=== PATIENT | female | born 1940 | race Caucasian/White ===

== ENCOUNTER 2017-01-07 15:47 | Outpatient (CLI) | payer MEDICARE, OTHER ==
[~2017-01-07] VITALS: Ht 152.4 cm; Wt 57.3 kg
[~2017-01-07 15:47] MED LIST: ALPR.25T PO; AMLO5TAB2 PO; ASP81TEC PO; CEPH500C PO; CHOL100011 PO; ENLP5T PO; ESCI10TA55 PO; FLUT1DIS26 IH; GBPN300C PO; HSCO125 SL; HYDR-2890 PO; HYDR12.56 PO; IBP800T PO; IBUP800T26 PO; LORA10TA7 PO; METO25TA2 PO; NF-ESOM40C PO; OMEP20CA12 PO; OMEP20TA2 PO; PANT40TA PO; SERT50TA PO; SPIR25TA3 PO; TRAM50TA2 PO; TRM50T PO
[2017-01-07 15:55] VITALS: BP 137/82
[2017-01-07] MEDS ORDERED: NS IV 1000 ML 1,000 ML ONE (16:23)
[2017-01-07] MEDS ORDERED: ONDANSETRON 4 MG/2 ML (SDV) Z0FRAN IV ONE (16:30)
[2017-01-07] MEDS ORDERED: NS IV 1000 ML 1,000 ML IV ONE (16:30)
[2017-01-07 16:38] LABS: MEAN PLATELET VOLUME 10.2 FL (7.4-10.4); RED BLOOD COUNT 4.35 10^6/uL (4.35-5.85); RED CELL DISTRIBUTION WIDTH 12.9 % (10.0-14.5); WHITE BLOOD COUNT 4.9 10^3/uL (4.3-11.0)
[2017-01-07 16:43] LABS: BILIRUBIN,URINE NEGATIVE (NEGATIVE); KETONES,URINE NEGATIVE (NEGATIVE); LEUKOCYTE ESTERASE ,URINE 1+ (NEGATIVE); NITRITE,URINE NEGATIVE (NEGATIVE); PH,URINE 6 (5-9); PROTEIN,URINE NEGATIVE (NEGATIVE); UROBILINOGEN,URINE NORMAL (NORMAL)
[2017-01-07 16:50] LABS: ALANINE AMINOTRANSFERASE 14 U/L (0-55); ALBUMIN 3.7 G/DL (3.2-4.5); ANION GAP 8 MMOL/L (5-14); ASPARTATE AMINO TRANSFERASE 23 U/L (5-34); BILIRUBIN,TOTAL 0.6 MG/DL (0.1-1.0); BLOOD UREA NITROGEN 12 MG/DL (7-18); BUN/CREATININE RATIO 16; CARBON DIOXIDE 26 MMOL/L (21-32); CHLORIDE 102 MMOL/L (98-107); CREATININE SERUM 0.73 MG/DL (0.60-1.30); GFR ESTIMATED > 60; GLUCOSE 141 MG/DL (70-105); SODIUM 136 MMOL/L (135-145); TOTAL PROTEIN 7.1 G/DL (6.4-8.2)
[2017-01-07 16:58] LABS: SQUAMOUS EPITHELIAL CELL,UR 0-2 /HPF
[2017-01-07 18:45] VITALS: BP 137/82
== END 2017-01-07 18:45 | disposition home or self-care (01) ==
LOC: SDC 15:47
PROVIDERS: ATTEND Nurse Practitioner Family
DX: E86.0 Dehydration (principal); R00.1 Bradycardia, unspecified
CPT/HCPCS: 36415; 80053; 81000; 84484; 85027; 87088; 93005; 96360; 96361; 96374

== ENCOUNTER → 2017-02-26 | Outpatient (CLI) | payer MEDICARE, OTHER ==
[2017-02-26 14:53] LABS: BASOPHILS % (AUTO) 1 % (0-10); EOSINOPHILS # (AUTO) 0.4 10^3/uL (0.0-0.3); EOSINOPHILS % (AUTO) 9 % (0-10); LYMPHOCYTES % (AUTO) 23 % (12-44); MEAN CORPUSCULAR HEMOGLOBIN 31 PG (25-34); MEAN CORPUSCULAR HGB CONC 32 G/DL (32-36); MEAN CORPUSCULAR VOLUME 98 FL (80-99); MONOCYTES # (AUTO) 0.3 X 10^3 (0.0-1.0); MONOCYTES % (AUTO) 6 % (0-12); NEUTROPHILS # (AUTO) 2.7 X 10^3 (1.8-7.8); NEUTROPHILS % (AUTO) 61 % (42-75); PLATELET COUNT 152 10^3/uL (130-400); RED BLOOD COUNT 3.94 10^6/uL (4.35-5.85); RED CELL DISTRIBUTION WIDTH 12.4 % (10.0-14.5); RETICULOCYTE % 1.22 % (0.50-2.40); WHITE BLOOD COUNT 4.4 10^3/uL (4.3-11.0)
[2017-02-26 15:03] LABS: PATH WILL NEED TO REVIEW SMEAR PATH TO REVIEW
[2017-02-26 15:11] LABS: EOSINOPHILS % (MANUAL) 5 %; LYMPHOCYTES % (MANUAL) 15 %; NEUTROPHILS % (MANUAL) 67 %; REACTIVE LYMPHOCYTES 5 %
== END ==
LOC: LAB 14:31
PROVIDERS: ATTEND Family Medicine
DX: D72.819 Decreased white blood cell count, unspecified (principal)
CPT/HCPCS: 36415; 85007; 85027; 85045

== ENCOUNTER 2017-05-24 15:46 | Emergency (ER) | payer MEDICARE, OTHER ==
[~2017-05-24] VITALS: Ht 152.4 cm; Wt 57.3 kg
--- NOTE | 2017-05-24 16:00 | ED Fall/Injury ---
General Stated Complaint: FALL Source: patient, family, EMS Exam Limitations: no limitations History of Present Illness Time seen by provider: 15:55 Initial Comments 76-year-old white female presents after she fell at her restaurant shortly prior to presentation emergency department. Patient fell from standing height. She sustained blunt trauma to the left periorbital region and the left knee. Patient is complaining of pain primarily over the anterior aspect left knee. The patient denies associated paresthesias or weakness in the left lower extremity. The patient's blunt head trauma was without associated loss of consciousness. The patient denies significant neck pain, paresthesias, or weakness in extremities. Patient denies trauma the chest abdomen or pelvis. The patient's on certain when she had her last tetanus update. Allergies and Home Medications Allergies Coded Allergies: azithromycin (Unverified Allergy, Unknown, 03/29/16) Uncoded Allergies: ERYTHROMYCIN (Allergy, Unknown, 01/07/17) Home Medications Alprazolam 0.25 Mg Tablet, 1 MG PO BID, (Reported) Amlodipine Besylate 5 Mg Tablet, 5 MG PO DAILY, (Reported) Aspirin 81 Mg Tabec, 81 MG PO DAILY, #30 Ref 3 Prescribed by: SATNAM LUNA on 10/19/13 0828 Cholecalciferol 1,000 Unit Capsule, 2,000 UNITS PO DAILY, (Reported) Escitalopram Oxalate 10 Mg Tablet, 10 MG PO DAILY, (Reported) Ibuprofen 800 Mg Tablet, 800 MG PO DAILY, #1 Prescribed by: JIGNA ROSAS on 10/17/13 0828 Loratadine 10 Mg Tablet, 10 MG PO, (Reported) Metoprolol Tartrate 25 Mg Tablet, 25 MG PO BID, #60 Ref 3 Prescribed by: SATNAM LUNA on 10/19/13 0827 Omeprazole 20 Mg Capsule.dr, 20 MG PO DAILY, #30 Prescribed by: JIGNA ROSAS on 10/17/13 0757 Spironolactone 25 Mg Tablet, 25 MG PO, (Reported) Tramadol HCl 50 Mg Tablet, 50 MG PO Q6H PRN for PAIN, #30 Ref 0 Prescribed by: MADDY BARDALES on 03/29/16 1131 Constitutional: No chills, No fever Eyes: Denies Blindness, Denies Blurred Vision, Denies Photophobia Ears, Nose, Mouth, Throat: denies ear pain, denies epistaxis, denies mouth pain Respiratory: No cough, No short of breath Cardiovascular: No chest pain Gastrointestinal: No abdominal pain, No nausea, No vomiting Genitourinary: No dysuria, No frequency : No Musculoskeletal: No no symptoms reported Skin: other (patient has abrasions over her knee and face. Ecchymosis is noted over the knee face and hands.) Psychiatric/Neurological: No Symptoms Reported Past Cvxwucn-Uawtnc-Sallfy Hx Patient Social History Type Used: Cigarettes Former Smoker, Quit: Jan 04, 1994 Recent Foreign Travel: No Contact w/Someone Who Travel: No Recent Hopitalizations: No Immunizations Up To Date Tetanus Booster (TDap): More than 5yrs Date of Pneumonia Vaccine: Sep 30, 2016 Date of Influenza Vaccine: Jun 29, 2016 Seasonal Allergies Seasonal Allergies: No Surgeries Surgeries: Bladder Surgery, Hysterectomy, Tonsillectomy Respiratory Respiratory Disorders: Asthma, COPD, Emphysema Currently Using CPAP: No Currently Using BIPAP: No Cardiovascular Cardiac Disorders: Hypertension Reproductive System Hx Reproductive Disorders: No Sexually Transmitted Disease: No HIV/AIDS: No Female 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 Gastrointestinal Gastrointestinal Disorders: Gastroesophageal Reflux, Hemorrhoids, Hiatal Hernia Musculoskeletal Musculoskeletal Disorders: Arthritis, Chronic Back Pain HEENT Loss of Vision: Denies Hearing Impairment: Denies Psychosocial Behavioral Health Disorders: Anxiety Reviewed Nursing Assessment Reviewed/Agree w Nursing PMH: Yes Family Medical History Family Medial History: Abdominal aortic aneurysm 03 FATHER Alcoholism 03 FATHER Cancer 03 FATHER Cataract 03 MOTHER Chest pain 03 FATHER Congestive heart failure 03 FATHER Family history: Cardiovascular disease 03 FATHER 03 MOTHER Family history: Coronary thrombosis 03 MOTHER Family history: Diabetes mellitus 03 MOTHER Family history: Glaucoma 03 MOTHER Family history: Hypertension 03 MOTHER Family history: Osteoporosis 03 MOTHER Headache 03 FATHER 03 MOTHER 09 BROTHER 09 BROTHER 09 SISTER Heart disease 03 FATHER History of - respiratory disease 03 FATHER Kidney disease 03 MOTHER Myocardial infarction 03 FATHER Stroke Visual impairment 03 FATHER 03 MOTHER No Family History of: Jase's disease Aphasia Cancer of colon Congenital heart disease Cystic fibrosis Dementia Dysphagia Family history: Allergy Family history: Alzheimer's disease Family history: Arthritis Family history: Asthma Family history: Breast disease Family history: Gastrointestinal disease Family history: Thyroid disorder Hearing loss Hereditary disease History of - anemia History of - disorder History of drug abuse Human immunodeficiency virus (HIV) seropositivity Hypercholesterolemia Infertile Malignant neoplasm of lung Parkinson's disease Prostate cancer Psychotic disorder Seizure disorder Tuberculosis Physical Exam Vital Signs Vital Sign - Last 12Hours 05/24/17 16:00 Temp 98.1 Pulse 74 Resp 16 B/P (MAP) 132/85 Pulse Ox 97 O2 Delivery Room Air Capillary Refill : General Appearance: WD/WN, mild distress HEENT: other (bruising and ecchymosis were present over the left periorbital region.) Neck: non-tender, full range of motion, supple Cardiovascular: normal peripheral pulses, regular rate, rhythm Respiratory: chest non-tender, lungs clear Gastrointestinal: normal bowel sounds, non tender, soft Back: normal inspection Extremities: normal range of motion, non-tender, other (contusions and abrasions are noted over the fingers of the hands.) Neurologic/Psychiatric: no motor/sensory deficits, alert, normal mood/affect Skin: normal color, warm/dry Elizabeth Coma Score Best Eye Response: (4) Open Spontaneously Best Verbal Response: (5) Oriented Best Motor Response: (6) Obeys Commands Elizabeth Total: 15 Progress/Results/Core Measures Results/Orders My Orders Orders - ES KAMINSKI MD Ct Head/Face/Cervical Wo (05/24/17 15:51) Knee, Left, 3 Views (05/24/17 15:51) Ns Iv 1000 Ml (Sodium Chloride 0.9%) (05/24/17 16:00) Dipht,Pertuss(Acell),Tet Adult (Boostrix (05/24/17 16:00) Fentanyl Injection (Sublimaze Injection (05/24/17 16:00) Ct Extremity Lower Left Wo (05/24/17 16:35) Medications Given in ED Current Medications Medications Dose Ordered Sig/Makenna Route Start Time Stop Time Status Last Admin Dose Admin Diphtheria/ Tetanus/Acell Pertussis 0.5 ml ONCE ONCE IM 05/24/17 16:00 05/24/17 16:01 DC 05/24/17 17:31 0.5 ML Fentanyl Citrate 50 mcg ONCE ONCE IVP 05/24/17 16:00 05/24/17 16:01 DC 05/24/17 16:41 50 MCG Vital Signs/I&O Vital Sign - Last 12Hours 05/24/17 16:00 Temp 98.1 Pulse 74 Resp 16 B/P (MAP) 132/85 Pulse Ox 97 O2 Delivery Room Air Progress Note : Time: 17:[address] of the head and face neck and left knee failed to demonstrate evidence of acute pathology. Patient was able to weight-bear without difficulty and other than complaining of pain over the impact areas had no other specific complaint. The patient was given tetanus update. Departure Impression Impression: Primary Impression: Fall Qualified Codes: W19.XXXA - Unspecified fall, initial encounter Additional Impressions: Closed head injury Qualified Codes: S09.90XA - Unspecified injury of head, initial encounter Contusion of left knee Qualified Codes: S80.02XA - Contusion of left knee, initial encounter Disposition: 01 HOME, SELF-CARE Condition: Improved Departure-Patient Inst. Decision time for Depature: 17:43 Referrals: YAZAN KERR MD (PCP/Family) Primary Care Physician Patient Instructions: Minor Head Injury (DC) Add. Discharge Instructions: Vicodin for pain. Ice to contusions. Follow-up with Dr. Kerr Friday. Return of any problems. ES KAMINSKI MD May 24, 2017 16:00
[2017-05-24] MEDS ORDERED: fentaNYL INJECTION 100 MCG/2 ML AMP IVP ONE (16:15)
--- NOTE | 2017-05-24 16:40 | Diagnostic Imaging Report ---
PROCEDURE: CT head, face, and cervical spine without contrast. TECHNIQUE: Multiple contiguous axial images were obtained through the head, neck, and facial bones without the use of intravenous contrast. Sagittal and coronal reformations through the cervical spine and facial bones were also performed. INDICATION: Fall. Head injury. COMPARISON: CT head without contrast 03/29/2016. FINDINGS: Head and maxillofacial: No intracranial hemorrhage, mass effect, hydrocephalus or extra-axial fluid collections. Intracranial vascular calcifications. Moderate generalized cerebral and cerebellar parenchymal volume loss. Moderate leukoaraiosis. No CT evidence of acute infarction. Moderate degenerative changes in the temporomandibular joints. Mild mucosal thickening in ethmoid and maxillary sinuses. No air-fluid levels. No maxillofacial or skull fractures. The mastoids are clear. Cervical spine: Moderate degenerative endplate changes most marked at C4-C7. Grade 1 retrolisthesis of C3 on C4 and anterolisthesis of C4 and C5. Diffuse moderate degenerative facet arthropathy. Vertebral body heights are maintained. No fractures. Posterior disc osteophyte complex likely result in at least mild spinal canal narrowing at C5-C6 and C6-C7. Scattered moderate and advanced neural foraminal narrowing is most marked at C3-C4. Mild scattered atherosclerotic calcifications. Retropharyngeal course of the carotid arteries. Biapical scarring. IMPRESSION: 1. No acute intracranial CT findings. No skull or maxillofacial fractures. 2. No acute CT findings in the cervical spine. 3. Advanced spondylotic changes result in at least mild spinal canal narrowing at C5-C6 and C6-C7. This could be better evaluated with MRI or CT myelogram. 4. Scattered moderate and advanced neural foraminal narrowing in the cervical spine is most marked bilaterally at C3-C4. Dictated by: Dictated on workstation # [id number]
[2017-05-24] MEDS: fentaNYL INJECTION 100 MCG/2 ML AMP IVP ONE (16:41)
[2017-05-24] MEDS: NS IV 1000 ML 1,000 ML IV SCH (16:41)
--- NOTE | 2017-05-24 16:46 | Diagnostic Imaging Report ---
EXAM: KNEE, LEFT, 3 VIEWS INDICATION: Fall. Left knee pain. COMPARISON: None FINDINGS: No fracture or malalignment. No left knee joint effusion. No radiopaque foreign bodies. IMPRESSION: No acute radiographic findings in the left knee. Dictated by: Dictated on workstation # [id number]
--- NOTE | 2017-05-24 17:04 | Diagnostic Imaging Report ---
PROCEDURE: CT left lower extremity without contrast. TECHNIQUE: Multiple contiguous axial images were obtained through the left lower extremity without the use of intravenous contrast. Sagittal and coronal reformations were then performed. INDICATION: Fall with left knee injury and pain. FINDINGS: No fracture or malalignment is identified. There is no abnormal lytic or sclerotic focus. There is no evidence of bone destruction. There is anterior and lateral contusion without focal fluid collection identified. Prominent varicose veins are noted in the subcutaneous tissues. There is no significant joint fluid. There is mild marginal spurring most pronounced at the patellofemoral joint. IMPRESSION: No acute osseous abnormality is identified. Dictated by: Dictated on workstation # [id number]
[2017-05-24] MEDS: TETANUS,DIPTH,PERTUSS P/F (BOOSTRIX) 0.5 ML VIAL IM ONE (17:31)
[2017-05-24 17:47] VITALS: BP 130/79
== END 2017-05-24 17:47 | disposition home or self-care (01) ==
LOC: EDUNIT# 15:46 → ER 15:48
DX: S09.90XA Unspecified injury of head, initial encounter (principal); S80.02XA Contusion of left knee, initial encounter; J43.9 Emphysema, unspecified; I10 Essential (primary) hypertension; M19.90 Unspecified osteoarthritis, unspecified site; F41.9 Anxiety disorder, unspecified; K21.9 Gastro-esophageal reflux disease without esophagitis; Z87.891 Personal history of nicotine dependence; Z82.49 Family history of ischemic heart disease and other diseases of the circulatory system; Z87.19 Personal history of other diseases of the digestive system; Z90.710 Acquired absence of both cervix and uterus; Z90.89 Acquired absence of other organs; W18.30XA Fall on same level, unspecified, initial encounter; Y92.511 Restaurant or cafe as the place of occurrence of the external cause
CPT/HCPCS: 70450; 70486; 72125; 73562; 73700; 90715

== ENCOUNTER 2017-06-04 17:32 | Emergency (ER) | payer MEDICARE, OTHER ==
[~2017-06-04] VITALS: Ht 152.4 cm; Wt 63.7 kg
--- NOTE | 2017-06-04 18:48 | ED Lower Extremity ---
General Chief Complaint: General Problems/Pain Stated Complaint: PAIN IN LEFT KNEE AFTER FALL ON 05/24 Nursing Triage Note: patient reports fall 1 week ago and being evaluated at this ER. patient reports her L leg is still bruised and rather painful Nursing Sepsis Screen: No Definite Risk Source: patient Exam Limitations: no limitations History of Present Illness Time seen by provider: 18:20 Initial Comments Here with increasing pain to the left knee. Had fall on 05/24/17. Had extensive workup at that time including knee xray. All were neg. Has bruising from medial upper thigh to ankle on left leg and swelling noted to the leg overall. Pain mostly at knee but does have pain overall. Ibuprofen helps with pain. Onset: last week Severity: moderate Pain/Injury Location: left leg, left knee, left thigh Method of Injury: fell Modifying Factors: Improves With Immobilization, Worse With Movement, Improves With Rest Allergies and Home Medications Allergies Coded Allergies: azithromycin (Unverified Allergy, Unknown, 03/29/16) Uncoded Allergies: ERYTHROMYCIN (Allergy, Unknown, 01/07/17) Home Medications Alprazolam 0.25 Mg Tablet, 1 MG PO BID, (Reported) Amlodipine Besylate 5 Mg Tablet, 5 MG PO DAILY, (Reported) Aspirin 81 Mg Tabec, 81 MG PO DAILY, #30 Ref 3 Prescribed by: SATNAM LUNA on 10/19/13 0828 Cholecalciferol 1,000 Unit Capsule, 2,000 UNITS PO DAILY, (Reported) Escitalopram Oxalate 10 Mg Tablet, 10 MG PO DAILY, (Reported) Ibuprofen 800 Mg Tablet, 800 MG PO DAILY, #1 Prescribed by: JIGNA ROSAS on 10/17/13 0828 Loratadine 10 Mg Tablet, 10 MG PO, (Reported) Metoprolol Tartrate 25 Mg Tablet, 25 MG PO BID, #60 Ref 3 Prescribed by: SATNAM LUNA on 10/19/13 0827 Omeprazole 20 Mg Capsule.dr, 20 MG PO DAILY, #30 Prescribed by: JIGNA ROSAS on 10/17/13 0757 Spironolactone 25 Mg Tablet, 25 MG PO, (Reported) Tramadol HCl 50 Mg Tablet, 50 MG PO Q6H PRN for PAIN, #30 Ref 0 Prescribed by: MADDY BARDALES on 03/29/16 1131 Constitutional: see HPI, No chills, No fever Respiratory: no symptoms reported Cardiovascular: no symptoms reported Gastrointestinal: no symptoms reported Musculoskeletal: see HPI, joint pain, joint swelling, muscle pain, muscle stiffness Skin: change in color, No lesions Psychiatric/Neurological: No Symptoms Reported Past Fiuqelp-Olhaeh-Wwsjuk Hx Patient Social History Alcohol Use: Denies Use Recreational Drug Use: No Smoking Status: Former Smoker Type Used: Cigarettes Former Smoker, Quit: Jan 04, 1994 2nd Hand Smoke Exposure: No Recent Foreign Travel: No Contact w/Someone Who Travel: No Recent Infectious Disease Expo: No Recent Hopitalizations: No Physical Abuse: No Sexual Abuse: No Immunizations Up To Date Tetanus Booster (TDap): More than 5yrs Date of Pneumonia Vaccine: Sep 30, 2016 Date of Influenza Vaccine: Jun 29, 2016 Seasonal Allergies Seasonal Allergies: No Surgeries History of Surgeries: Yes (HEMORRHOIDECTOMY,hiatal hernia repairx2, ) Surgeries: Bladder Surgery, Hysterectomy, Tonsillectomy Respiratory History of Respiratory Disorde: Yes (COPD) Respiratory Disorders: Asthma, COPD, Emphysema Currently Using CPAP: No Currently Using BIPAP: No Cardiovascular History of Cardiac Disorders: Yes Cardiac Disorders: Hypertension Neurological History of Neurological Disord: No Reproductive System Hx Reproductive Disorders: No Sexually Transmitted Disease: No HIV/AIDS: No Female 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 Gastrointestinal History of Gastrointestinal Di: Yes Gastrointestinal Disorders: Gastroesophageal Reflux, Hemorrhoids, Hiatal Hernia Musculoskeletal History of Musculoskeletal Dis: Yes (ARTHRITIS) Musculoskeletal Disorders: Arthritis, Chronic Back Pain Endocrine History of Endocrine Disorders: No HEENT Loss of Vision: Denies Hearing Impairment: Denies Cancer History of Cancer: No Psychosocial History of Psychiatric Problem: Yes Behavioral Health Disorders: Anxiety Suicide Risk Score: 0 Integumentary History of Skin or Integumenta: No Blood Transfusions History of Blood Disorders: No Reviewed Nursing Assessment Reviewed/Agree w Nursing PMH: Yes Family Medical History Significant Family History: No Pertinent Family Hx Family Medial History: Abdominal aortic aneurysm 03 FATHER Alcoholism 03 FATHER Cancer 03 FATHER Cataract 03 MOTHER Chest pain 03 FATHER Congestive heart failure 03 FATHER Family history: Cardiovascular disease 03 FATHER 03 MOTHER Family history: Coronary thrombosis 03 MOTHER Family history: Diabetes mellitus 03 MOTHER Family history: Glaucoma 03 MOTHER Family history: Hypertension 03 MOTHER Family history: Osteoporosis 03 MOTHER Headache 03 FATHER 03 MOTHER 09 BROTHER 09 BROTHER 09 SISTER Heart disease 03 FATHER History of - respiratory disease 03 FATHER Kidney disease 03 MOTHER Myocardial infarction 03 FATHER Stroke Visual impairment 03 FATHER 03 MOTHER No Family History of: Jase's disease Aphasia Cancer of colon Congenital heart disease Cystic fibrosis Dementia Dysphagia Family history: Allergy Family history: Alzheimer's disease Family history: Arthritis Family history: Asthma Family history: Breast disease Family history: Gastrointestinal disease Family history: Thyroid disorder Hearing loss Hereditary disease History of - anemia History of - disorder History of drug abuse Human immunodeficiency virus (HIV) seropositivity Hypercholesterolemia Infertile Malignant neoplasm of lung Parkinson's disease Prostate cancer Psychotic disorder Seizure disorder Tuberculosis Physical Exam Vital Signs Vital Sign - Last 12Hours 06/04/17 17:57 Temp 97.1 Pulse 71 Resp 18 B/P (MAP) 129/80 Pulse Ox 96 Capillary Refill : Less Than 3 Seconds General Appearance: WD/WN, no apparent distress Cardiovascular: regular rate, rhythm, no murmur Respiratory: lungs clear, normal breath sounds Hips: bilateral hip non-tender, bilateral hip normal inspection, bilateral hip normal range of motion Legs: right leg non-tender, right leg normal inspection, right leg normal range of motion, left leg ecchymosis, left leg joint effusion, left leg soft tissue tenderness, left leg swelling Knees: left knee ecchymosis, left knee joint effusion, left knee soft tissue tenderness, left knee swelling, left knee other (left knee with laxity medial lateral with moderate peripatellar effusion. Negative drawer.) Ankles: right ankle non-tender, right ankle normal inspection, right ankle normal range of motion, right ankle no evidence of injury, left ankle soft tissue tenderness, left ankle swelling Neurologic/Psychiatric: alert, oriented x 3 Skin: warm/dry, ecchymosis (ecchymosis extends from the medial aspect of the left upper leg down to near the area of the ankle.), other (left leg swollen overall. Greatest tenderness about the left knee. No significant abrasions or wounds otherwise.) Progress/Results/Core Measures Results/Orders My Orders Orders - MADDY BARDALES MD Knee, Left, 3 Views (06/04/17 18:27) Us Venous Lower Ext Lt (06/04/17 18:48) Vital Signs/I&O Vital Sign - Last 12Hours 06/04/17 17:57 Temp 97.1 Pulse 71 Resp 18 B/P (MAP) 129/80 Pulse Ox 96 Blood Pressure Mean: 96 Progress Note : Progress Note Seen and evaluated. X-ray left knee. Ultrasound left leg. 2020: No acute findings. Patient does not have findings of fracture or DVT. She is able to walk. Family reports that she has multiple falls. There is laxity of the knee although stable in walking. She does have a fairly significant joint effusion. I did discuss with her at length about rest and elevation of the leg. She is taking ibuprofen twice daily and this is helping and she will continue that. I did discuss with her to follow-up with her DrAbraham for further evaluation related to possible further needs of evaluation of the left knee including MRI or orthopedic referral. Patient verbalize understanding. Discharged home with return precautions. Patient verbalize understanding instructions and agreement with plan. Diagnostic Imaging Diagonstic Imaging: Xray Plain Films/CT/US/NM/MRI: knee Comments NAME: JUSTINE RAMIREZ [facility] REC#: [id number] PT STATUS: REG ER : 1940 PHYSICIAN: MADDY BARDALES MD ADMIT DATE: 06/04/17/ER Signed Date of Exam: 06/04/17 KNEE, LEFT, 3 VIEWS INDICATION: Knee pain after a fall one week ago. COMPARISON: None available. TECHNIQUE: 3 nonweightbearing views of the left knee. FINDINGS: No acute or healing fracture. Joint spaces are maintained. Possible small left pleural effusion. Prepatellar soft tissue swelling. Subcutaneous reticulations about the knee may relate to contusion or edema. IMPRESSION: 1. No acute or healing fracture about the left knee. Dictated by: Dictated on workstation # [id number] Dict: 06/04/171849 Trans: 06/04/171926 Interpreted by: PETRA PEREZ MD Electronically signed by: PETRA PEREZ MD 06/04/171926 Diagonstic Imaging: Ultrasound Plain Films/CT/US/NM/MRI: leg Comments VIA [facility], [facility]. [place], [place] NAME: JUSTINE RAMIREZ [facility] REC#: [id number] PT STATUS: REG ER : 1940 PHYSICIAN: MADDY BARDALES MD ADMIT DATE: 06/04/17/ER Draft Date of Exam:06/04/17 US VENOUS LOWER EXT LT PROCEDURE: US left lower extremity venous. TECHNIQUE: Multiple real-time grayscale images were obtained over the left lower extremity in various projections. Additional duplex Doppler and color Doppler images were also obtained. INDICATION: Fall two weeks prior. Leg pain. FINDINGS: There is normal compression, flow, and augmentation from the left common femoral vein through the popliteal vein. The visualized calf veins are patent. IMPRESSION: 1. No sonographic evidence of left lower extremity deep venous thrombosis. Dictated on workstation # [id number] Dict: 06/04/171958 Trans: 06/04/172002 [id number] [id number] Interpreted by: FAVIOLA IGLESIAS MD Electronically signed by: Departure Impression Impression: Primary Impression: Effusion, left knee Additional Impression: Contusion of leg, left Qualified Codes: S80.12XD - Contusion of left lower leg, subsequent encounter Disposition: HOME, SELF-CARE Condition: Improved Departure-Patient Inst. Decision time for Depature: 20:27 Referrals: YAZAN KERR MD (PCP/Family) Primary Care Physician Patient Instructions: Contusion (DC), Internal Derangement of the Knee (DC), Lower Extremity Muscle Strain (DC) Add. Discharge Instructions: All discharge instructions reviewed with patient and/or family. Voiced understanding. It is important that he rest the leg and elevate as often as possible over the next several days and then as needed. Follow-up with your DrAbraham in a few days for recheck. Return for worse pain, fever, swelling, weakness, breathing problems or other concerns as needed. Copy Copies To 1: YAZAN KERR MD, TIMOTHY D MD Jun 04, 2017 18:48
--- NOTE | 2017-06-04 19:02 | Diagnostic Imaging Report ---
INDICATION: Knee pain after a fall one week ago. COMPARISON: None available. TECHNIQUE: 3 nonweightbearing views of the left knee. FINDINGS: No acute or healing fracture. Joint spaces are maintained. Possible small left pleural effusion. Prepatellar soft tissue swelling. Subcutaneous reticulations about the knee may relate to contusion or edema. IMPRESSION: 1. No acute or healing fracture about the left knee. Dictated by: Dictated on workstation # [id number]
--- NOTE | 2017-06-04 20:03 | Diagnostic Imaging Report ---
PROCEDURE: US left lower extremity venous. TECHNIQUE: Multiple real-time grayscale images were obtained over the left lower extremity in various projections. Additional duplex Doppler and color Doppler images were also obtained. INDICATION: Fall two weeks prior. Leg pain. FINDINGS: There is normal compression, flow, and augmentation from the left common femoral vein through the popliteal vein. The visualized calf veins are patent. IMPRESSION: 1. No sonographic evidence of left lower extremity deep venous thrombosis. Dictated by: Dictated on workstation # [id number]
[2017-06-04 20:34] VITALS: BP 136/90
== END 2017-06-04 20:31 | disposition home or self-care (01) ==
LOC: EDUNIT# 17:32 → ER 17:34
DX: S80.12XA Contusion of left lower leg, initial encounter (principal); J43.9 Emphysema, unspecified; I10 Essential (primary) hypertension; K21.9 Gastro-esophageal reflux disease without esophagitis; F41.9 Anxiety disorder, unspecified; Z82.49 Family history of ischemic heart disease and other diseases of the circulatory system; Z79.82 Long term (current) use of aspirin; Z87.891 Personal history of nicotine dependence; Z87.19 Personal history of other diseases of the digestive system; Z90.710 Acquired absence of both cervix and uterus; Z90.89 Acquired absence of other organs; W19.XXXA Unspecified fall, initial encounter
CPT/HCPCS: 73562; 99281

== ENCOUNTER 2017-07-15 06:51 | Inpatient (IN) | payer MEDICARE, OTHER ==
[2017-07-15] VITALS (7 sets, daily range): BP systolic 120–163; BP diastolic 77–100
[~2017-07-15] VITALS: Ht 152.4 cm; Wt 63.1 kg
[2017-07-15] MEDS ORDERED: ASPIRIN 81 MG CHEW (CHILDREN'S ASA) PO ONE (07:00)
[2017-07-15 07:08] LABS: BASOPHILS % (AUTO) 0 % (0-10); EOSINOPHILS # (AUTO) 0.1 10^3/uL (0.0-0.3); EOSINOPHILS % (AUTO) 2 % (0-10); LYMPHOCYTES # (AUTO) 0.7 X 10^3 (1.0-4.0); LYMPHOCYTES % (AUTO) 16 % (12-44); MEAN CORPUSCULAR HEMOGLOBIN 31 PG (25-34); MEAN CORPUSCULAR HGB CONC 33 G/DL (32-36); MEAN CORPUSCULAR VOLUME 93 FL (80-99); MEAN PLATELET VOLUME 9.9 FL (7.4-10.4); MONOCYTES # (AUTO) 0.3 X 10^3 (0.0-1.0); MONOCYTES % (AUTO) 6 % (0-12); NEUTROPHILS # (AUTO) 3.6 X 10^3 (1.8-7.8); NEUTROPHILS % (AUTO) 77 % (42-75); PLATELET COUNT 172 10^3/uL (130-400); RED BLOOD COUNT 4.69 10^6/uL (4.35-5.85); RED CELL DISTRIBUTION WIDTH 13.4 % (10.0-14.5); WHITE BLOOD COUNT 4.6 10^3/uL (4.3-11.0)
[2017-07-15] MEDS ORDERED: morphine INJ 10 MG/ML 1ML (SYR OR VIAL) IVP STA (07:08)
[2017-07-15] MEDS ORDERED: NITROGLYCERIN 0.4 MG SL TABS BTL 25'S SL PRN (07:15)
--- NOTE | 2017-07-15 07:15 | ED Chest Pain ---
General Stated Complaint: CP,SOB Source: patient Exam Limitations: no limitations History of Present Illness Time seen by provider: 06:51 Initial Comments Here with report of central chest pain that she is unable to further qualify except to say that it is a bad pain. It is at the low center of her chest and does not radiate. It is associated with nausea and diarrhea but no vomiting. Has been persistent since 1030 p.m. last night. Denies breathing problems. Has chronic left leg pain that has been worked up over the last month and has been negative for DVT. Denies having pain like this before. Reports taking her meds as directed. Timing/Duration: constant, 12 hours Severity/Quality: moderate, severe, aching, other (pain) Location: central Radiation: no radiation Activities at Onset: none Prior CP/Workup: cardiac cath, stress test ASA po DRENCHER: No NTG SL DRENCHER: No Associated Symptoms: abdominal pain (epigastric), No back pain, No fever/chills , nausea/vomiting, No shortness of breath, No weakness Allergies and Home Medications Allergies Coded Allergies: azithromycin (Unverified Allergy, Unknown, 03/29/16) Uncoded Allergies: ERYTHROMYCIN (Allergy, Unknown, 01/07/17) Home Medications Alprazolam 0.25 Mg Tablet, 1 MG PO BID, (Reported) Amlodipine Besylate 5 Mg Tablet, 5 MG PO DAILY, (Reported) Aspirin 81 Mg Tabec, 81 MG PO DAILY, #30 Ref 3 Prescribed by: SATNAM LUNA on 10/19/13 0828 Cholecalciferol 1,000 Unit Capsule, 2,000 UNITS PO DAILY, (Reported) Escitalopram Oxalate 10 Mg Tablet, 10 MG PO DAILY, (Reported) Ibuprofen 800 Mg Tablet, 800 MG PO DAILY, #1 Prescribed by: JIGNA ROSAS on 10/17/13 0828 Loratadine 10 Mg Tablet, 10 MG PO, (Reported) Metoprolol Tartrate 25 Mg Tablet, 25 MG PO BID, #60 Ref 3 Prescribed by: SATNAM LUNA on 10/19/13 0827 Omeprazole 20 Mg Capsule.dr, 20 MG PO DAILY, #30 Prescribed by: JIGNA ROSAS on 10/17/13 0757 Spironolactone 25 Mg Tablet, 25 MG PO, (Reported) Tramadol HCl 50 Mg Tablet, 50 MG PO Q6H PRN for PAIN, #30 Ref 0 Prescribed by: MADDY BARDALES on 03/29/16 1131 Review of Systems Constitutional: see HPI, No chills, No fever EENTM: No Symptoms Reported Respiratory: No Symptoms Reported, Denies Shortness of Air, Denies Wheezing Cardiovascular: Chest Pain, Denies Edema, Denies Irregular Heart Rate Gastrointestinal: Abdominal Pain, Diarrhea, Vomiting Genitourinary: No Symptoms Reported Musculoskeletal: joint pain, joint swelling Skin: no symptoms reported Psychiatric/Neurological: Denies Headache, Denies Weakness Endocrine: No Symptoms Reported All Other Systems Reviewed Negative Unless Noted: Yes Past Wxqphmn-Ubxvrj-Hphmsj Hx Patient Social History Alcohol Use: Denies Use Recreational Drug Use: No Smoking Status: Former Smoker Type Used: Cigarettes Former Smoker, Quit: Jan 04, 1994 2nd Hand Smoke Exposure: No Recent Foreign Travel: No Contact w/Someone Who Travel: No Recent Hopitalizations: No Immunizations Up To Date Tetanus Booster (TDap): More than 5yrs Date of Pneumonia Vaccine: Sep 30, 2016 Date of Influenza Vaccine: Jun 29, 2016 Seasonal Allergies Seasonal Allergies: No Surgeries History of Surgeries: Yes (HEMORRHOIDECTOMY,hiatal hernia repairx2, ) Surgeries: Bladder Surgery, Hysterectomy, Tonsillectomy Respiratory History of Respiratory Disorde: Yes (COPD) Respiratory Disorders: Asthma, COPD, Emphysema Currently Using CPAP: No Currently Using BIPAP: No Cardiovascular History of Cardiac Disorders: Yes Cardiac Disorders: Hypertension Neurological History of Neurological Disord: No Reproductive System Hx Reproductive Disorders: No Sexually Transmitted Disease: No HIV/AIDS: No Female 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 Gastrointestinal History of Gastrointestinal Di: Yes Gastrointestinal Disorders: Gastroesophageal Reflux, Hemorrhoids, Hiatal Hernia Musculoskeletal History of Musculoskeletal Dis: Yes (ARTHRITIS) Musculoskeletal Disorders: Arthritis, Chronic Back Pain Endocrine History of Endocrine Disorders: No HEENT Loss of Vision: Denies Hearing Impairment: Denies Cancer History of Cancer: No Psychosocial History of Psychiatric Problem: Yes Behavioral Health Disorders: Anxiety Integumentary History of Skin or Integumenta: No Blood Transfusions History of Blood Disorders: No Reviewed Nursing Assessment Reviewed/Agree w Nursing PMH: Yes Family Medical History Significant Family History: No Pertinent Family Hx Family Medial History: Abdominal aortic aneurysm 03 FATHER Alcoholism 03 FATHER Cancer 03 FATHER Cataract 03 MOTHER Chest pain 03 FATHER Congestive heart failure 03 FATHER Family history: Cardiovascular disease 03 FATHER 03 MOTHER Family history: Coronary thrombosis 03 MOTHER Family history: Diabetes mellitus 03 MOTHER Family history: Glaucoma 03 MOTHER Family history: Hypertension 03 MOTHER Family history: Osteoporosis 03 MOTHER Headache 03 FATHER 03 MOTHER 09 BROTHER 09 BROTHER 09 SISTER Heart disease 03 FATHER History of - respiratory disease 03 FATHER Kidney disease 03 MOTHER Myocardial infarction 03 FATHER Stroke Visual impairment 03 FATHER 03 MOTHER Physical Exam Vital Signs Vital Sign - Last 12Hours 07/15/17 07/15/17 07/15/17 06:56 07:22 07:30 Temp 96.8 Pulse 75 Resp 18 B/P (MAP) 184/103 Pulse Ox 97 O2 Delivery Room Air O2 Flow Rate 2.00 Capillary Refill : General Appearance: WD/WN, Anxious, Moderate Distress (pain) HEENT: PERRL/EOMI, Pharynx Normal Neck: Non Tender, Supple Respiratory: Lungs Clear, Normal Breath Sounds Cardiovascular: Regular Rate, Rhythm, No Murmur Gastrointestinal: Soft, No Distended, No Guarding, Tenderness (epigastric region) Extremity: Normal Capillary Refill, No Pedal Edema, Other (tenderness to the left knee) Neurologic/Psychiatric: Alert, Oriented x3, No Motor/Sensory Deficits Skin: Normal Color, Warm/Dry Progress/Results/Core Measures Results/Orders Lab Results Laboratory Tests Test 07/15/17 06:59 07/15/17 07:03 Range/Units D-Dimer 1.76 H 0.00-0.49 UG/ML White Blood Count 4.6 4.3-11.0 10^3/uL Red Blood Count 4.69 4.35-5.85 10^6/uL Hemoglobin 14.3 11.5-16.0 G/DL Hematocrit 44 35-52 % Mean Corpuscular Volume 93 80-99 FL Mean Corpuscular Hemoglobin 31 25-34 PG Mean Corpuscular Hemoglobin Concent 33 32-36 G/DL Red Cell Distribution Width 13.4 10.0-14.5 % Platelet Count 172 130-400 10^3/uL Mean Platelet Volume 9.9 7.4-10.4 FL Neutrophils (%) (Auto) 77 H 42-75 % Lymphocytes (%) (Auto) 16 12-44 % Monocytes (%) (Auto) 6 0-12 % Eosinophils (%) (Auto) 2 0-10 % Basophils (%) (Auto) 0 0-10 % Neutrophils # (Auto) 3.6 1.8-7.8 X 10^3 Lymphocytes # (Auto) 0.7 L 1.0-4.0 X 10^3 Monocytes # (Auto) 0.3 0.0-1.0 X 10^3 Eosinophils # (Auto) 0.1 0.0-0.3 10^3/uL Basophils # (Auto) 0.0 0.0-0.1 10^3/uL Prothrombin Time 12.3 12.2-14.7 SEC INR Comment 0.9 0.8-1.4 Activated Partial Thromboplast Time 29 24-35 SEC Sodium Level 137 135-145 MMOL/L Potassium Level 4.2 3.6-5.0 MMOL/L Chloride Level 105 98-107 MMOL/L Carbon Dioxide Level 23 21-32 MMOL/L Anion Gap 9 5-14 MMOL/L Blood Urea Nitrogen 16 7-18 MG/DL Creatinine 0.76 0.60-1.30 MG/DL Estimat Glomerular Filtration Rate > 60 BUN/Creatinine Ratio 21 Glucose Level 119 H 70-105 MG/DL Calcium Level 9.5 8.5-10.1 MG/DL Magnesium Level 2.1 1.8-2.4 MG/DL Total Bilirubin 2.4 H 0.1-1.0 MG/DL Aspartate Amino Transf (AST/SGOT) 1175 H 5-34 U/L Alanine Aminotransferase (ALT/SGPT) 644 H 0-55 U/L Alkaline Phosphatase 127 40-136 U/L Myoglobin 44.0 10.0-92.0 NG/ML Troponin I < 0.30 <0.30 NG/ML Total Protein 8.9 H 6.4-8.2 GM/DL Albumin 4.2 3.2-4.5 GM/DL Amylase Level 43 25-125 U/L Lipase 21 8-78 U/L My Orders Orders - MADDY BARDALES MD Cbc With Automated Diff (07/15/17 06:57) Magnesium (07/15/17 06:57) Chest 1 View, Ap/Pa Only (07/15/17 06:57) Ekg Tracing (07/15/17 06:57) Cardiac Profile 1 (07/15/17 06:57) Comprehensive Metabolic Panel (07/15/17 06:57) Myoglobin Serum (07/15/17 06:57) Protime With Inr (07/15/17 06:57) Partial Thromboplastin Time (07/15/17 06:57) O2 (07/15/17 06:57) Monitor-Rhythm Ecg Trace Only (07/15/17 06:57) Lipid Panel (07/16/17 06:00) Saline Lock/Iv-Start (07/15/17 06:57) Aspirin Chewable Tablet (Baby Aspirin Ch (07/15/17 07:00) Lipase (07/15/17 06:59) Amylase (07/15/17 06:59) Fibrin Degradation Products (07/15/17 06:59) Nitroglycerin 0.4 Mg Btl 25's (Nitrostat (07/15/17 07:15) Morphine Injection (Morphine Injection (07/15/17 07:08) Us Gallbladder 35830 (07/15/17 07:33) Ns Iv 500 Ml (Sodium Chloride 0.9%) (07/15/17 07:41) Ns Iv 500 Ml (Sodium Chloride 0.9%) (07/15/17 08:33) Ct Angio Chest/Abd W (07/15/17 08:33) Iohexol Injection (Omnipaque 350 Mg/Ml 1 (07/15/17 08:45) Ns (Ivpb) (Sodium Chloride 0.9% Ivpb Bag (07/15/17 08:45) Medications Given in ED Current Medications Medications Dose Ordered Sig/Makenna Route Start Time Stop Time Status Last Admin Dose Admin Aspirin 324 mg ONCE ONCE PO 07/15/17 07:00 07/15/17 07:01 DC 07/15/17 07:12 324 MG Iohexol 125 ml ONCE ONCE IV 07/15/17 08:45 07/15/17 08:46 DC 07/15/17 08:50 125 ML Nitroglycerin 0.4 mg UD PRN SL 07/15/17 07:15 07/15/17 07:12 0.4 MG Sodium Chloride 100 ml ONCE ONCE IV 07/15/17 08:45 07/15/17 08:46 DC 07/15/17 08:50 80 ML Sodium Chloride 500 ml @ 0 mls/hr Q0M ONCE IV 07/15/17 07:41 07/15/17 07:42 DC 07/15/17 07:45 500 MLS/HR Sodium Chloride 500 ml @ 0 mls/hr Q0M ONCE IV 07/15/17 08:33 07/15/17 08:35 DC 07/15/17 09:09 500 MLS/HR Vital Signs/I&O Vital Sign - Last 12Hours 07/15/17 07/15/17 07/15/17 07/15/17 06:56 07:22 07:30 08:36 Temp 96.8 Pulse 75 72 66 Resp 18 48 18 B/P (MAP) 184/103 163/82 141/87 Pulse Ox 97 98 O2 Delivery Room Air Nasal Cannula Nasal Cannula O2 Flow Rate 2.00 07/15/17 09:17 Pulse 69 Resp 18 B/P (MAP) 140/100 Pulse Ox 100 O2 Delivery Nasal Cannula O2 Flow Rate 2.00 Progress Note : Progress Note Seen and evaluated on arrival. IV, labs, EKG and chest x-ray ordered. ASA 324 mg by mouth. Nitroglycerin sublingual ordered for chest pain. Morphine 2 mg IV ordered for chest pain. Monitor patient. Gallbladder ultrasound ordered due to elevated liver enzymes and total bilirubin. CT angiogram of the chest and abdomen ordered due to elevated d-dimer. Pain markedly improved after morphine and 1 nitroglycerin sublingual. 0940: Discussed case with Dr. Deal due to findings of pericholecystic fluid on CT scan as well as evidence of gallstones on gallbladder ultrasound. There is also concern for common bile duct dilation on CT scan indicating early cholecystitis with possible stone blockage. Dr. Deal will admit with probably cholecystectomy. Requesting antibiotics. All findings and concerns were discussed with the patient and family who agree. Admit, inpatient status. Patient and family agree with plan. ECG Initial ECG Impression Date: Jul 15, 2017 Initial ECG Impression Time: 06:56 Initial ECG Rate: 71 Initial ECG Rhythm: Normal Sinus Comment Sinus rhythm with normal axis. No evidence of ST elevation IN. Unchanged from previous of 07 January 2017. Interpreted by me. Diagnostic Imaging Diagonstic Imaging: Xray Plain Films/CT/US/NM/MRI: chest Comments [facility] [facility] [place], [place] NAME: JUSTINE RAMIREZ [facility] REC#: [id number] PT STATUS: REG ER : 1940 PHYSICIAN: MADDY BARDALES MD ADMIT DATE: 07/15/17/ER Draft Date of Exam:07/15/17 CHEST 1 VIEW, AP/PA ONLY INDICATION: Chest pain with shortness of breath. FINDINGS: Mild obstructive pulmonary disease is noted. There are no acute infiltrates. Heart is upper limits of normal. There is no pulmonary edema. No pneumothorax or pleural effusion. IMPRESSION: Mild obstructive lung disease noted with no acute infiltrates. Dictated on workstation # [id number] Dict: 07/15/17 0737 Trans: 07/15/17 0742 [id number] Interpreted by: MARY PEREZ MD Electronically signed by: Diagonstic Imaging: Ultrasound Plain Films/CT/US/NM/MRI: abdomen Comments [facility]IA [facility]. [place], [place] NAME: JUSTINE RAMIREZ [facility] REC#: [id number] PT STATUS: REG ER : 1940 PHYSICIAN: MADDY BARDALES MD ADMIT DATE: 07/15/17/ER Draft Date of Exam:07/15/17 US GALLBLADDER [id number] PROCEDURE: US Gallbladder. TECHNIQUE: Multiple real-time grayscale images were obtained over the right upper quadrant in various projections. INDICATION: Chest pain. FINDINGS: The area of the pancreas is obscured. The liver is fairly homogeneous with no focal lesion. There is hepatopetal flow in the portal vein seen. The gallbladder has multiple shadowing stones with no gallbladder wall thickening or pericholecystic fluid. Sonographic Milner sign is reportedly negative. The right kidney is 8.6 cm in length with no hydronephrosis or focal lesion. The the CBD is 8 mm in caliber, at the upper limits of normal. No fluid collection in the upper right abdomen. IMPRESSION: Cholelithiasis. Dictated on workstation # [id number] Dict: 07/15/17 0852 Trans: 07/15/17 0855 [id number] Interpreted by: YANCY ROYAL MD Electronically signed by: Diagonstic Imaging: CT Plain Films/CT/US/NM/MRI: chest, abdomen Comments PT STATUS: REG ER : 1940 PHYSICIAN: MADDY BARDALES MD ADMIT DATE: 07/15/17/ER Draft Date of Exam:07/15/17 CT ANGIO CHEST/ABD W PROCEDURE: CT angiography of the abdomen and chest with and without contrast. TECHNIQUE: After intravenous administration of contrast, thin section axial CT angiography of the abdomen and chest were obtained. Multiple MIP reformats were provided. INDICATION: Chest pain, right upper quadrant pain. 125 mL of Omnipaque 350 was administered intravenously. FINDINGS: CTA chest: There is good opacification of the pulmonary arteries. No filling defects are seen to suggest pulmonary embolism. The thoracic aorta is aneurysmal at the mid ascending level measuring 4.4 cm. The aortic annulus is normal in caliber. The aortic arch is also normal as well as the descending aorta. The descending aorta, however, is tortuous. The lungs demonstrate minimal upper lobe predominant emphysema changes. There is a dependent focal area of consolidation in subpleural location in the posterior aspect of the right lung apex and similar finding in the left lung apex. This is probably related to focal mild atelectasis and pleural parenchymal scarring. There is otherwise no significant consolidation, mass, or suspicious nodule. There is no pleural or pericardial effusion. No significantly enlarged mediastinal, hilar, or axillary lymph nodes seen. There is a small/ moderate-sized hiatal hernia. Surgical clips around the GE junction are seen. The osseous structures demonstrate degenerative changes and mild right convexity curvature of the spine, presumably scoliosis related. CT angiogram of the abdomen: The abdominal aorta is normal caliber. It is slightly tortuous, however, particularly superiorly. No significantly enlarged para-aortic lymph nodes are seen. The celiac trunk and the SMA are patent. The renal arteries are patent. The DEVANG appears patent. The liver, the spleen, the adrenals, and the pancreas appear unremarkable. The gallbladder is mildly dilated. There is minimal amount of pericholecystic fluid. The ultrasound performed today demonstrated multiple stones with no calcified stone seen on the CT. There is minimal hyperemia in the gallbladder bed within the liver seen. The CBD and intrahepatic ducts are also mildly dilated. No obstructive mass is identified based on this CT scan. The CBD is 8 mm in caliber. The kidneys have symmetric enhancement without hydronephrosis. The right kidney is smaller compared to the left kidney and areas of scarring and simple cysts. No fluid collection or soft tissue mass is seen in the abdomen. There is thickening in the gastric antrum and pylorus circumferentially. This could relate to peristaltic contraction or gastritis with no definite underlying mass. There is a small fat-containing hernia in the upper right side of the abdomen with a defect through the posterior fascial lining of the rectus sheath and herniating omental fat into the rectus sheath area on the right side. The anterior fascial lining of the rectus sheath, however, is intact with no extension of the hernia into the subcutaneous tissues. The osseous structures demonstrate prominent degenerative changes with a left convexity scoliosis. IMPRESSION: CTA chest: 1. No pulmonary embolism. 2. Ascending aortic aneurysm measuring up to 4.4 cm in caliber. 3. Small/ moderate hiatal hernia. CTA abdomen: 1. Tortuous abdominal aorta with no high-grade stenosis or aneurysm in the aorta or the major visceral branches. 2. There is dilatation of the gallbladder and mild dilatation of the intra and extrahepatic bile ducts. There is no obstructive lesion seen at the ampulla of Vater region. The gallbladder demonstrates minimal pericholecystic fluid. Ultrasound demonstrated stones that are not visible with CT scan. There could potentially be a distal CBD stone also not visible by CT. 3. There is a small fat-containing hernia through the deep portion of the abdominal wall on the right side in the upper abdomen herniating into the rectus sheath without extending through the anterior fascial layer of the rectus sheath into the subcutaneous tissues. The findings were discussed with Dr. Bardales at time of dictation. Dictated on workstation # [id number] Dict: 07/15/17 0908 Trans: 07/15/17 1005 GREGORIO [id number] Interpreted by: YANCY ROYAL MD Electronically signed by: Reviewed: Reviewed by Me Departure Communication (Admissions) Time/Spoke to Admitting Phy: 09:40 Impression Impression: Primary Impression: Cholecystitis Disposition: ADMITTED INPATIENT Condition: Stable Admissions Decision to Admit Reason: Admit from ER (General) Decision to Admit/Date: Jul 15, 2017 Time/Decision to Admit Time: 09:40 Departure-Patient Inst. Referrals: YAZAN KERR MD (PCP/Family) Primary Care Physician MADDY BARDALES MD Jul 15, 2017 07:15
[2017-07-15 07:18] LABS: INR 0.9 (0.8-1.4); PROTHROMBIN TIME PATIENT 12.3 SEC (12.2-14.7)
[2017-07-15 07:27] LABS: ALANINE AMINOTRANSFERASE 644 U/L (0-55); ALBUMIN 4.2 GM/DL (3.2-4.5); AMYLASE 43 U/L (25-125); ANION GAP 9 MMOL/L (5-14); ASPARTATE AMINO TRANSFERASE 1175 U/L (5-34); BILIRUBIN,TOTAL 2.4 MG/DL (0.1-1.0); BLOOD UREA NITROGEN 16 MG/DL (7-18); BUN/CREATININE RATIO 21; CALCIUM 9.5 MG/DL (8.5-10.1); CARBON DIOXIDE 23 MMOL/L (21-32); CHLORIDE 105 MMOL/L (98-107); CREATININE SERUM 0.76 MG/DL (0.60-1.30); GFR ESTIMATED > 60; GLUCOSE 119 MG/DL (70-105); LIPASE 21 U/L (8-78); MAGNESIUM 2.1 MG/DL (1.8-2.4); POTASSIUM 4.2 MMOL/L (3.6-5.0); SODIUM 137 MMOL/L (135-145); TOTAL PROTEIN 8.9 GM/DL (6.4-8.2)
[2017-07-15] MEDS ORDERED: NS IV 500 ML 500 ML IV ONE ×2 (07:41→08:33)
--- NOTE | 2017-07-15 07:43 | Diagnostic Imaging Report ---
INDICATION: Chest pain with shortness of breath. FINDINGS: Mild obstructive pulmonary disease is noted. There are no acute infiltrates. Heart is upper limits of normal. There is no pulmonary edema. No pneumothorax or pleural effusion. IMPRESSION: Mild obstructive lung disease noted with no acute infiltrates. Dictated by: Dictated on workstation # [id number]
[2017-07-15] MEDS ORDERED: NS 100 ML (IVPB) BAG IV ONE (08:45)
[2017-07-15] MEDS ORDERED: IOHEXOL 350 MG/ML 150 ML (OMNIPAQUE 350) VIAL IV ONE (08:45)
--- NOTE | 2017-07-15 08:55 | Diagnostic Imaging Report ---
PROCEDURE: US Gallbladder. TECHNIQUE: Multiple real-time grayscale images were obtained over the right upper quadrant in various projections. INDICATION: Chest pain. FINDINGS: The area of the pancreas is obscured. The liver is fairly homogeneous with no focal lesion. There is hepatopetal flow in the portal vein seen. The gallbladder has multiple shadowing stones with no gallbladder wall thickening or pericholecystic fluid. Sonographic Milner sign is reportedly negative. The right kidney is 8.6 cm in length with no hydronephrosis or focal lesion. The the CBD is 8 mm in caliber, at the upper limits of normal. No fluid collection in the upper right abdomen. IMPRESSION: Cholelithiasis. Dictated by: Dictated on workstation # [id number]
--- NOTE | 2017-07-15 10:05 | Diagnostic Imaging Report ---
PROCEDURE: CT angiography of the abdomen and chest with and without contrast. TECHNIQUE: After intravenous administration of contrast, thin section axial CT angiography of the abdomen and chest were obtained. Multiple MIP reformats were provided. INDICATION: Chest pain, right upper quadrant pain. 125 mL of Omnipaque 350 was administered intravenously. FINDINGS: CTA chest: There is good opacification of the pulmonary arteries. No filling defects are seen to suggest pulmonary embolism. The thoracic aorta is aneurysmal at the mid ascending level measuring 4.4 cm. The aortic annulus is normal in caliber. The aortic arch is also normal as well as the descending aorta. The descending aorta, however, is tortuous. The lungs demonstrate minimal upper lobe predominant emphysema changes. There is a dependent focal area of consolidation in subpleural location in the posterior aspect of the right lung apex and similar finding in the left lung apex. This is probably related to focal mild atelectasis and pleural parenchymal scarring. There is otherwise no significant consolidation, mass, or suspicious nodule. There is no pleural or pericardial effusion. No significantly enlarged mediastinal, hilar, or axillary lymph nodes seen. There is a small/ moderate-sized hiatal hernia. Surgical clips around the GE junction are seen. The osseous structures demonstrate degenerative changes and mild right convexity curvature of the spine, presumably scoliosis related. CT angiogram of the abdomen: The abdominal aorta is normal caliber. It is slightly tortuous, however, particularly superiorly. No significantly enlarged para-aortic lymph nodes are seen. The celiac trunk and the SMA are patent. The renal arteries are patent. The DEVANG appears patent. The liver, the spleen, the adrenals, and the pancreas appear unremarkable. The gallbladder is mildly dilated. There is minimal amount of pericholecystic fluid. The ultrasound performed today demonstrated multiple stones with no calcified stone seen on the CT. There is minimal hyperemia in the gallbladder bed within the liver seen. The CBD and intrahepatic ducts are also mildly dilated. No obstructive mass is identified based on this CT scan. The CBD is 8 mm in caliber. The kidneys have symmetric enhancement without hydronephrosis. The right kidney is smaller compared to the left kidney and areas of scarring and simple cysts. No fluid collection or soft tissue mass is seen in the abdomen. There is thickening in the gastric antrum and pylorus circumferentially. This could relate to peristaltic contraction or gastritis with no definite underlying mass. There is a small fat-containing hernia in the upper right side of the abdomen with a defect through the posterior fascial lining of the rectus sheath and herniating omental fat into the rectus sheath area on the right side. The anterior fascial lining of the rectus sheath, however, is intact with no extension of the hernia into the subcutaneous tissues. The osseous structures demonstrate prominent degenerative changes with a left convexity scoliosis. IMPRESSION: CTA chest: 1. No pulmonary embolism. 2. Ascending aortic aneurysm measuring up to 4.4 cm in caliber. 3. Small/ moderate hiatal hernia. CTA abdomen: 1. Tortuous abdominal aorta with no high-grade stenosis or aneurysm in the aorta or the major visceral branches. 2. There is dilatation of the gallbladder and mild dilatation of the intra and extrahepatic bile ducts. There is no obstructive lesion seen at the ampulla of Vater region. The gallbladder demonstrates minimal pericholecystic fluid. Ultrasound demonstrated stones that are not visible with CT scan. There could potentially be a distal CBD stone also not visible by CT. 3. There is a small fat-containing hernia through the deep portion of the abdominal wall on the right side in the upper abdomen herniating into the rectus sheath without extending through the anterior fascial layer of the rectus sheath into the subcutaneous tissues. The findings were discussed with Dr. Swenson at time of dictation. Dictated by: Dictated on workstation # [id number]
[2017-07-15] MEDS ORDERED: PIPERACILLIN/TAZOBACTAM 4.5 GM/NS 100 ML IV NR ×2 (11:00)
[2017-07-15] MEDS ORDERED: ONDANSETRON 4 MG/2 ML (SDV) Z0FRAN IV PRN (11:00)
[2017-07-15] MEDS ORDERED: CATHETER FLUSH 10 ML SYR IV PRN (11:00)
[2017-07-15] MEDS: NS IV 1000 ML 1,000 ML IV SCH ×2 (11:13→21:41)
[2017-07-15] MEDS ORDERED: INFLUENZA TRIvalent 2017-2018 0.5 ML/45 MCG SYR IM ONE (12:15)
[2017-07-15] MEDS ORDERED: CHOL20003 PO (13:42)
[2017-07-15] MEDS ORDERED: FLUT1AER IH (13:42)
[2017-07-15] MEDS ORDERED: ALPR1TAB7 PO (13:42)
[2017-07-15] MEDS ORDERED: LOSA100T28 PO (13:42)
[2017-07-15] MEDS ORDERED: METO50TA2 PO (13:42)
[2017-07-15] MEDS ORDERED: OMEP20CA12 PO (13:42)
[2017-07-15] MEDS ORDERED: IBUP-1780 PO (13:42)
[2017-07-15] MEDS ORDERED: ASPI-983 PO (13:45)
[2017-07-15] MEDS: fentaNYL INJECTION 100 MCG/2 ML AMP IV PRN ×4 (14:24→23:52)
--- NOTE | 2017-07-15 16:30 | Diagnostic Imaging Report ---
PROCEDURE: CT head without contrast. TECHNIQUE: Multiple contiguous axial images were obtained through the brain without the use of intravenous contrast. INDICATION: Left facial droop. FINDINGS: There is no intracranial hemorrhage, edema or mass effect. There are periventricular and deep white matter hypodensities compatible with chronic microvascular ischemic changes. No hydrocephalus. No extra-axial fluid collection is seen. The calvarium and the orbits appear grossly unremarkable. There is mild mucosal thickening in the mid and posterior ethmoid air cells seen similar to 05/24/2017. IMPRESSION: No acute process. Dictated by: Dictated on workstation # [id number]
--- NOTE | 2017-07-15 16:59 | History & Physical-Surgical ---
History of Present Illness History of Present Illness Reason for visit/HPI Chief complaint epigastric abdominal pain/chest pain Patient is a 70-year-old female who presented to emergency department today with pain that is primarily in the epigastric region. Patient states it began last night about 1030 and is been constant and did not get much sleep. Patient states it's moderate to severe pain. No significant radiation of the pain. She points to the pain being in the epigastric region. Patient states that nothing was making her better and nothing was seen in the make it worse. She does note a week ago having a short episode of pain that is similar but it went away after about 5 minutes. Patient states that she's had some nausea but had no emesis. She had a gallbladder ultrasound demonstrating cholelithiasis. She had a CT scan of the chest demonstrating some pericholecystic fluid the stones were not able to be visualized on CT and concern for possible common bile duct obstruction with no cause visualized. Patient states that she does not have fever. She denies any sweats chills no increasing shortness of breath from her baseline at this time. Chest pain as noted above but more in the lower chest epigastric region. Date of Admission Jul 15, 2017 at 09:55 I consulted on this patient on 07/15/17 16:54 Attending Physician Moses Deal DO Admitting Physician Kim Burden MD Consult Allergies and Home Medications Allergies Coded Allergies: azithromycin (Unverified Allergy, Unknown, 03/29/16) Uncoded Allergies: ERYTHROMYCIN (Allergy, Unknown, 01/07/17) Home Medications Alprazolam 1 Mg Tablet, 1 MG PO BID, (Reported) Aspirin 81 Mg Tablet.dr, 81 MG PO DAILY, (Reported) Cholecalciferol (Vitamin D3) 2,000 Unit Capsule, 2,000 UNIT PO DAILY, (Reported) Escitalopram Oxalate 10 Mg Tablet, 10 MG PO DAILY, (Reported) Fluticasone/Vilanterol 1 Each Blst.w.dev, 1 PUFF IH DAILY, (Reported) Ibuprofen 800 Mg Tablet, 800 MG PO BID, (Reported) Loratadine 10 Mg Tablet, 10 MG PO BID, (Reported) Losartan Potassium 100 Mg Tablet, 100 MG PO HS, (Reported) Metoprolol Tartrate 50 Mg Tablet, 25 MG PO BID, (Reported) TAKES 1/2 OF A (50 MG) TABLET Omeprazole 20 Mg Capsule., 20 MG PO BID, (Reported) Past Fjaeqsc-Ycuvfq-Akpuhw Hx Patient Social History Alcohol Use: Denies Use Recreational Drug Use: No Smoking Status: Former Smoker Former Smoker, Quit: Jul 15, 1994 Type Used: Cigars 2nd Hand Smoke Exposure: No Recent Foreign Travel: No Contact w/Someone Who Travel: Yes Recent Infectious Disease Expo: No Recent Hopitalizations: No Physical Abuse Screen: No Sexual Abuse: No Immunizations Up To Date Tetanus Booster (TDap): More than 5yrs Date of Pneumonia Vaccine: Sep 30, 2016 Date of Influenza Vaccine: Jun 29, 2016 Seasonal Allergies Seasonal Allergies: No Surgeries History of Surgeries: Yes (HEMORRHOIDECTOMY,hiatal hernia repairx2, ) Surgeries: Bladder Surgery, Hysterectomy, Tonsillectomy Respiratory History of Respiratory Disorde: Yes (COPD) Respiratory Disorders: Asthma, COPD, Emphysema Cardiovascular History of Cardiac Disorders: Yes Cardiac Disorders: Hypertension Neurological History of Neurological Disord: No Reproductive System Hx Reproductive Disorders: No Sexually Transmitted Disease: No HIV/AIDS: No Female 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 Gastrointestinal History of Gastrointestinal Di: Yes Gastrointestinal Disorders: Gastroesophageal Reflux, Hemorrhoids, Hiatal Hernia Musculoskeletal History of Musculoskeletal Dis: Yes (ARTHRITIS) Musculoskeletal Disorders: Arthritis, Chronic Back Pain Endocrine History of Endocrine Disorders: No HEENT Loss of Vision: Denies Hearing Impairment: Denies Cancer History of Cancer: No Psychosocial History of Psychiatric Problem: Yes Behavioral Health Disorders: Anxiety Integumentary History of Skin or Integumenta: No Blood Transfusions History of Blood Disorders: No Reviewed Nursing Assessment Reviewed/Agree w Nursing PMH: Yes Family Medical History Significant Family History: No Pertinent Family Hx Family Medial History: Abdominal aortic aneurysm 03 FATHER Alcoholism 03 FATHER Cancer 03 FATHER Cataract 03 MOTHER Chest pain 03 FATHER Congestive heart failure 03 FATHER Family history: Cardiovascular disease 03 FATHER 03 MOTHER Family history: Coronary thrombosis 03 MOTHER Family history: Diabetes mellitus 03 MOTHER Family history: Glaucoma 03 MOTHER Family history: Hypertension 03 MOTHER Family history: Osteoporosis 03 MOTHER Headache 03 FATHER 03 MOTHER 09 BROTHER 09 BROTHER 09 SISTER Heart disease 03 FATHER History of - respiratory disease 03 FATHER Kidney disease 03 MOTHER Myocardial infarction 03 FATHER Stroke Visual impairment 03 FATHER 03 MOTHER No Family History of: [place]'s disease Aphasia Cancer of colon Congenital heart disease Cystic fibrosis Dementia Dysphagia Family history: Allergy Family history: Alzheimer's disease Family history: Arthritis Family history: Asthma Family history: Breast disease Family history: Gastrointestinal disease Family history: Thyroid disorder Hearing loss Hereditary disease History of - anemia History of - disorder History of drug abuse Human immunodeficiency virus (HIV) seropositivity Hypercholesterolemia Infertile Malignant neoplasm of lung Parkinson's disease Prostate cancer Psychotic disorder Seizure disorder Tuberculosis Constitutional: see HPI EENTM: no symptoms reported Respiratory: see HPI Cardiovascular: see HPI Gastrointestinal: see HPI Genitourinary: no symptoms reported Musculoskeletal: no symptoms reported Skin: no symptoms reported Psychiatric/Neurological: No Symptoms Reported Physical Exam Vital Signs Vital Sign - Last 12Hours 07/15/17 07/15/17 07/15/17 06:56 07:22 07:30 Temp 96.8 Pulse 75 Resp 18 B/P (MAP) 184/103 Pulse Ox 97 O2 Delivery Room Air O2 Flow Rate 2.00 Capillary Refill : Less Than 3 Seconds General Appearance: No Apparent Distress HEENT: PERRL/EOMI, Normal ENT Inspection Neck: Normal Inspection, Non Tender, Supple Respiratory: No Accessory Muscle Use, No Respiratory Distress Cardiovascular: Regular Rate, Rhythm Gastrointestinal: Soft, Tenderness (slight tenderness in the epigastric right upper quadrant no guarding or rebounding no palpable masses no organomegaly. Scar midline) Rectal: Deferred Back: No CVA Tenderness, No Vertebral Tenderness Extremity: Normal Inspection, Non Tender Neurologic/Psychiatric: Alert, Oriented x3, No Motor/Sensory Deficits, Normal Mood/Affect Skin: Normal Color, Warm/Dry Data Review Labs Laboratory Tests 07/15/17 06:59: D-Dimer 1.76H 07/15/17 07:03: White Blood Count 4.6, Red Blood Count 4.69, Hemoglobin 14.3, Hematocrit 44, Mean Corpuscular Volume 93, Mean Corpuscular Hemoglobin 31, Mean Corpuscular Hemoglobin Concent 33, Red Cell Distribution Width 13.4, Platelet Count 172, Mean Platelet Volume 9.9, Neutrophils (%) (Auto) 77H, Lymphocytes (%) (Auto) 16 , Monocytes (%) (Auto) 6, Eosinophils (%) (Auto) 2, Basophils (%) (Auto) 0, Neutrophils # (Auto) 3.6, Lymphocytes # (Auto) 0.7L, Monocytes # (Auto) 0.3, Eosinophils # (Auto) 0.1, Basophils # (Auto) 0.0, Prothrombin Time 12.3, INR Comment 0.9, Activated Partial Thromboplast Time 29, Sodium Level 137, Potassium Level 4.2, Chloride Level 105, Carbon Dioxide Level 23, Anion Gap 9, Blood Urea Nitrogen 16, Creatinine 0.76, Estimat Glomerular Filtration Rate > 60 , BUN/Creatinine Ratio 21, Glucose Level 119H, Calcium Level 9.5, Magnesium Level 2.1, Total Bilirubin 2.4H, Aspartate Amino Transf (AST/SGOT) 1175H, Alanine Aminotransferase (ALT/SGPT) 644H, Alkaline Phosphatase 127, Myoglobin 44.0, Troponin I < 0.30, Total Protein 8.9H, Albumin 4.2, Amylase Level 43, Lipase 21 Assessment/Plan Assessment/Plan Assessment/Plan Abdominal pain and epigastric, cholecystitis, cholelithiasis COPD. Patient with cholelithiasis and findings suggestive of cholecystitis with cholecystic fluid around the gallbladder on CT scan. Her bilirubin slightly elevated and common bile duct upper limits of normal by ultrasound. Patient and family were discussed risk and benefits of laparoscopic cholecystectomy possible cholangiogram possible open and he understands risk and benefits and wished to proceed with procedure. Patient on IV fluids. She can have clear liquids until tonight and then nothing by mouth. Patient's on Zosyn at this time. We'll plan for laparoscopic cholecystectomy tomorrow. We will consult Dr. Burden her primary care provider for medical management. Clinical Quality Measures AMI/AHF: ASA po Prior to arrival: No DVT/VTE Risk/Contraindication: Risk Factor Score Per Nursin RFS Level Per Nursing on Admit: 4+=Very High MOSES DEAL DO Jul 15, 2017 16:59
[2017-07-15] MEDS: PIPERACILLIN/TAZOBACTAM 4.5 GM/NS 100 ML IVPB IV SCH ×2 (17:06)
--- NOTE | 2017-07-15 20:02 | Consultation ---
History of Present Illness History of Present Illness Patient Consulted On(leslie/time) 07/15/17 19:57 Date Seen by Provider: Jul 15, 2017 Time Seen by Provider: 19:30 Reason for Visit: abd pain, chest pain History of Present Illness PT IS A 77 Y/O FEMALE WHO IS KNOWN TO ME FROM CLINIC. SHE PRESENTED TO THE EMERGENCY DEPARTMENT AFTER HAVING TWO TO THREE DAYS OF INTERMITTENT STOMACH UPSET AND CHEST PAIN (LOWER CHEST ON RIGHT). SHE REPORTS THAT SHE FELT LIKE SOMEONE HAD HIT HER IN THE RIGHT UPPER ABDOMEN AND LOWER CHEST, HAD SEVERE BURPING, AND THEN THE SYMPTOMS SUBSIDED FOR A DAY. THEN SHE HAD RESUMPTION OF SYMPTOMS WITH BELCHING ALL NIGHT LAST NIGHT AND INTO THE MORNING WITH PAIN SPASMS IN HER RIGHT ABDOMEN. SHE WAS IN THE ROOM OF THE HOSPITAL WHEN SHE WAS CONCERNED ABOUT POSSIBLY HAVING LEFT SIDED FACIAL DROOPING. THE STAFF FELT LIKE HER LEFT CHEEK WAS SWOLLEN AND THERE WAS SOME FACIAL DROOPING, THEY CALLED ME FOR AN EVALUATION - SHE HAD A CT OF HER HEAD, WHICH WAS NEGATIVE. THE FACIAL DROOPING HAD RESOLVED BEFORE THE CT SCAN. Allergies and Home Medications Allergies Coded Allergies: azithromycin (Unverified Allergy, Unknown, 03/29/16) Uncoded Allergies: ERYTHROMYCIN (Allergy, Unknown, 01/07/17) Home Medications Alprazolam 1 Mg Tablet, 1 MG PO BID, (Reported) Aspirin 81 Mg Tablet.dr, 81 MG PO DAILY, (Reported) Cholecalciferol (Vitamin D3) 2,000 Unit Capsule, 2,000 UNIT PO DAILY, (Reported) Escitalopram Oxalate 10 Mg Tablet, 10 MG PO DAILY, (Reported) Fluticasone/Vilanterol 1 Each Blst.w.dev, 1 PUFF IH DAILY, (Reported) Ibuprofen 800 Mg Tablet, 800 MG PO BID, (Reported) Loratadine 10 Mg Tablet, 10 MG PO BID, (Reported) Losartan Potassium 100 Mg Tablet, 100 MG PO HS, (Reported) Metoprolol Tartrate 50 Mg Tablet, 25 MG PO BID, (Reported) TAKES 1/2 OF A (50 MG) TABLET Omeprazole 20 Mg Capsule.dr, 20 MG PO BID, (Reported) Past Crvbuqu-Jghlgf-Snwpoj Hx Patient Social History Alcohol Use: Denies Use Recreational Drug Use: No Smoking Status: Former Smoker Type Used: Cigars Former Smoker, Quit: Jul 15, 1994 2nd Hand Smoke Exposure: No Recent Foreign Travel: No Contact w/Someone Who Travel: Yes Recent Infectious Disease Expo: No Recent Hopitalizations: No Immunizations Up To Date Tetanus Booster (TDap): More than 5yrs Date of Pneumonia Vaccine: Sep 30, 2016 Date of Influenza Vaccine: Jun 29, 2016 Seasonal Allergies Seasonal Allergies: No Surgeries History of Surgeries: Yes (HEMORRHOIDECTOMY,hiatal hernia repairx2, ) Surgeries: Bladder Surgery, Hysterectomy, Tonsillectomy Respiratory History of Respiratory Disorde: Yes (COPD) Respiratory Disorders: Asthma, COPD, Emphysema Currently Using CPAP: No Currently Using BIPAP: No Cardiovascular History of Cardiac Disorders: Yes Cardiac Disorders: Hypertension Neurological History of Neurological Disord: No Reproductive System : No Hx Reproductive Disorders: No Sexually Transmitted Disease: No HIV/AIDS: No Female 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 Genitourinary History of Genitourinary Disor: No Gastrointestinal History of Gastrointestinal Di: Yes Gastrointestinal Disorders: Gastroesophageal Reflux, Hemorrhoids, Hiatal Hernia Musculoskeletal History of Musculoskeletal Dis: Yes (ARTHRITIS) Musculoskeletal Disorders: Arthritis, Chronic Back Pain Endocrine History of Endocrine Disorders: No HEENT Loss of Vision: Denies Hearing Impairment: Denies Cancer History of Cancer: No Psychosocial History of Psychiatric Problem: Yes Behavioral Health Disorders: Anxiety, Depression Integumentary History of Skin or Integumenta: No Blood Transfusions History of Blood Disorders: No Reviewed Nursing Assessment Reviewed/Agree w Nursing PMH: Yes Family Medical History Significant Family History: Heart Disease, Cancer, Diabetes, Hypertension, Other Conditions/Hx (SEE DOCUMETATION BELOW) Family Medial History: Abdominal aortic aneurysm 03 FATHER Alcoholism 03 FATHER Cancer 03 FATHER Cataract 03 MOTHER Chest pain 03 FATHER Congestive heart failure 03 FATHER Family history: Cardiovascular disease 03 FATHER 03 MOTHER Family history: Coronary thrombosis 03 MOTHER Family history: Diabetes mellitus 03 MOTHER Family history: Glaucoma 03 MOTHER Family history: Hypertension 03 MOTHER Family history: Osteoporosis 03 MOTHER Headache 03 FATHER 03 MOTHER 09 BROTHER 09 BROTHER 09 SISTER Heart disease 03 FATHER History of - respiratory disease 03 FATHER Kidney disease 03 MOTHER Myocardial infarction 03 FATHER Stroke Visual impairment 03 FATHER 03 MOTHER No Family History of: [place]'s disease Aphasia Cancer of colon Congenital heart disease Cystic fibrosis Dementia Dysphagia Family history: Allergy Family history: Alzheimer's disease Family history: Arthritis Family history: Asthma Family history: Breast disease Family history: Gastrointestinal disease Family history: Thyroid disorder Hearing loss Hereditary disease History of - anemia History of - disorder History of drug abuse Human immunodeficiency virus (HIV) seropositivity Hypercholesterolemia Infertile Malignant neoplasm of lung Parkinson's disease Prostate cancer Psychotic disorder Seizure disorder Tuberculosis Review of Systems-General Constitutional: No chills, No fever, malaise, weakness EENTM: No hoarseness, No mouth pain, No throat pain, No throat swelling Respiratory: No cough, dyspnea on exertion, short of breath Cardiovascular: No chest pain, No edema, No palpitations Gastrointestinal: abdominal pain (RUQ), loss of appetite, nausea, No vomiting Genitourinary: no symptoms reported : No Musculoskeletal: no symptoms reported, No muscle stiffness, No muscle weakness Skin: no symptoms reported Psychiatric/Neurological: Anxiety, Depressed (RECENT LOSS OF SIGNIFICANT OTHER OF 10 YEARS) All Other Systems Reviewed Negative Unless Noted: Yes Physical Exam-General Problems Physical Exam Vital Signs Vital Sign - Last 12Hours 07/15/17 07/15/17 07/15/17 06:56 07:22 07:30 Temp 96.8 Pulse 75 Resp 18 B/P (MAP) 184/103 Pulse Ox 97 O2 Delivery Room Air O2 Flow Rate 2.00 Capillary Refill : Less Than 3 Seconds General Appearance: WD/WN, mild distress (WITH ABDOMINAL PAIN) Eyes: Bilateral Eye Normal Inspection, Bilateral Eye PERRL, Bilateral Eye EOMI HEENT: PERRL/EOMI, pharynx normal Neck: non-tender, supple, normal inspection Respiratory: chest non-tender, lungs clear, normal breath sounds, no respiratory distress, no accessory muscle use Cardiovascular: regular rate, rhythm, no edema Gastrointestinal: normal bowel sounds, tenderness (RUQ) Back: normal inspection, no CVA tenderness, no vertebral tenderness Extremities: normal range of motion, non-tender, normal inspection, no pedal edema, no calf tenderness, normal capillary refill Neurologic/Psychiatric: machine rough rounder II-XII nml as tested, no motor/sensory deficits, alert, normal mood/affect, oriented x 3, No abnormal gait, No aphasia, No EOM palsy, No facial droop, No motor weakness, No sensory deficit, other (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 Sonographic Milner sign is reportedly negative. - dx - CHOLELITHIASIS ABDOMINAL PAIN - PT TO USE PRN PAIN MEDICATION FOR CONTROL OF SYMPTOMS. HYPERTENSION - RESTART LOSARTAN AND METOPROLOL. DEPRESSION AND ANXIETY - PT TO RESTART SSRI AND ALPRAZOLAM. COPD - OXYGEN DEPENDENT - CONTINUE WITH TREATMENT WITH OXYGEN AND RESTART BREO ( OR HOSPITAL SUBSTITUTION). CT OF HEAD NEGATIVE FOR TIA/STROKE - SYMPTOMS ARE COMPLETELY RESOLVED AT THE TIME OF MY EVALUATION OF THE PATIENT. SHE IS KNOWN TO HAVE A SOMEWHAT ASYMMETRIC FACE AND RECENT FACIAL INJURY AFTER FALL AT HOME WITH EXTENSIVE BRUISING THAT HAS SINCE RESOLVED. Clinical Quality Measures AMI/AHF: ASA po Prior to arrival: No DVT/VTE Risk/Contraindication: Risk Factor Score Per Nursin RFS Level Per Nursing on Admit: 4+=Very High YAZAN KERR MD Jul 15, 2017 20:02
[2017-07-15] MEDS: LOSARTAN 50 MG (COZAAR) TAB PO SCH (21:54)
[2017-07-15] MEDS: meTOprolol TARTRATE 25 MG (LOPRESSOR) TABLET PO SCH (21:54)
[2017-07-15] MEDS: ALPRAZolam 1 MG (XANAX) TAB PO SCH (21:54)
[2017-07-16 00:01] VITALS: BP 119/76
[2017-07-16] MEDS: PIPERACILLIN/TAZOBACTAM 4.5 GM/NS 100 ML IVPB IV SCH ×6 (00:58→17:19)
[2017-07-16 04:15] VITALS: BP 122/78
[2017-07-16 07:14] LABS: MEAN PLATELET VOLUME 10.5 FL (7.4-10.4); RED BLOOD COUNT 4.09 10^6/uL (4.35-5.85); RED CELL DISTRIBUTION WIDTH 13.7 % (10.0-14.5)
[2017-07-16 07:35] LABS: ALANINE AMINOTRANSFERASE 605 U/L (0-55); ALBUMIN 3.5 GM/DL (3.2-4.5); ANION GAP 10 MMOL/L (5-14); ASPARTATE AMINO TRANSFERASE 531 U/L (5-34); BILIRUBIN,TOTAL 6.6 MG/DL (0.1-1.0); BLOOD UREA NITROGEN 11 MG/DL (7-18); BUN/CREATININE RATIO 16; CALCIUM 8.7 MG/DL (8.5-10.1); CARBON DIOXIDE 21 MMOL/L (21-32); CHLORIDE 106 MMOL/L (98-107); CHOLESTEROL 140 MG/DL (< 200); CREATININE SERUM 0.67 MG/DL (0.60-1.30); DIRECT LDL 65 MG/DL (1-129); GFR ESTIMATED > 60; GLUCOSE 91 MG/DL (70-105); POTASSIUM 3.5 MMOL/L (3.6-5.0); SODIUM 137 MMOL/L (135-145); TOTAL PROTEIN 6.8 GM/DL (6.4-8.2); TRIGLYCERIDES 48 MG/DL (<150); VLDL CHOLESTEROL 10 MG/DL (5-40)
[2017-07-16 08:00] VITALS: BP 118/68
[2017-07-16] MEDS ORDERED: RT-ADVAIR HFA 115/21 MCG PER PUFF IH SCH (08:00)
[2017-07-16] MEDS: NS IV 1000 ML 1,000 ML IV SCH ×2 (08:31→17:14)
--- NOTE | 2017-07-16 08:40 | Progress Note (SOAP) ---
Subjective Date Seen by Provider: Jul 16, 2017 Time Seen by Provider: 08:40 Objective Exam Vital Signs Date Time Temp Pulse Resp B/P (MAP) Pulse Ox O2 Delivery O2 Flow Rate FiO2 07/16/17 08:00 98.0 70 12 118/68 100 Nasal Cannula 2.00 07/16/17 04:15 98.2 74 19 122/78 98 Nasal Cannula 2.00 07/16/17 00:01 97.9 70 18 119/76 99 Nasal Cannula 2.00 07/15/17 20:00 99 Nasal Cannula 2.00 07/15/17 19:22 Nasal Cannula 07/15/17 19:11 98.6 83 18 120/77 99 07/15/17 16:07 97.6 65 18 136/82 100 07/15/17 12:02 97.6 64 18 133/85 96 07/15/17 10:45 97.6 64 18 133/85 96 07/15/17 10:30 Nasal Cannula 2.00 07/15/17 10:10 69 18 100 Nasal Cannula 2.00 07/15/17 09:17 69 18 140/100 100 Nasal Cannula 2.00 Capillary Refill : Less Than 3 Seconds Results Lab Laboratory Tests 07/16/17 06:55: White Blood Count 5.0, Red Blood Count 4.09L, Hemoglobin 12.6, Hematocrit 39, Mean Corpuscular Volume 95, Mean Corpuscular Hemoglobin 31, Mean Corpuscular Hemoglobin Concent 33, Red Cell Distribution Width 13.7, Platelet Count 155, Mean Platelet Volume 10.5H, Sodium Level 137, Potassium Level 3.5L, Chloride Level 106, Carbon Dioxide Level 21, Anion Gap 10, Blood Urea Nitrogen 11, Creatinine 0.67, Estimat Glomerular Filtration Rate > 60, BUN/Creatinine Ratio 16, Glucose Level 91, Calcium Level 8.7, Total Bilirubin 6.6#H, Aspartate Amino Transf (AST/SGOT) 531H, Alanine Aminotransferase (ALT/SGPT) 605#H, Alkaline Phosphatase 164H, Total Protein 6.8, Albumin 3.5, Triglycerides Level 48, Cholesterol Level 140, LDL Cholesterol Direct 65, VLDL Cholesterol 10, HDL Cholesterol 61H Assessment/Plan Assessment/Plan Assess & Plan/Chief Complaint CHOLELITHIASIS ABDOMINAL PAIN HYPERTENSION DEPRESSION ANXIETY COPD CHOLELITHIASIS - GALLBLADDER ULTRASOUND FOLLOWS: - The gallbladder has multiple shadowing stones with no gallbladder wall thickening or pericholecystic fluid. Sonographic Milner sign is reportedly negative. - dx - CHOLELITHIASIS ABDOMINAL PAIN - PT TO USE PRN PAIN MEDICATION FOR CONTROL OF SYMPTOMS. HYPERTENSION - RESTART LOSARTAN AND METOPROLOL. DEPRESSION AND ANXIETY - PT TO RESTART SSRI AND ALPRAZOLAM. COPD - OXYGEN DEPENDENT - CONTINUE WITH TREATMENT WITH OXYGEN AND RESTART BREO ( OR HOSPITAL SUBSTITUTION). CT OF HEAD NEGATIVE FOR TIA/STROKE - SYMPTOMS ARE COMPLETELY RESOLVED AT THE TIME OF MY EVALUATION OF THE PATIENT. SHE IS KNOWN TO HAVE A SOMEWHAT ASYMMETRIC FACE AND RECENT FACIAL INJURY AFTER FALL AT HOME WITH EXTENSIVE BRUISING THAT HAS SINCE RESOLVED. Clinical Quality Measures AMI/AHF: ASA po Prior to arrival: No DVT/VTE Risk/Contraindication: Risk Factor Score Per Nursin RFS Level Per Nursing on Admit: 4+=Very High YAZAN KERR MD Jul 16, 2017 08:40
--- NOTE | 2017-07-16 09:06 | Progress Note ---
Subjective Date Seen by Provider: Jul 16, 2017 Time Seen by Provider: 09:03 Subjective/Events-last exam Patient states she has some pain last night but this is resolved. She's on low bit better today. Patient had question of some asymmetry of her face yesterday which she had a CT of the head performed which was negative. Patient is nothing by mouth at this time. She denies any nausea vomiting fever sweats chills shortness of breath or chest pain. Patient's liver enzymes elevated with bilirubin increasing and alkaline phosphatase increasing as well. Objective Exam Vital Signs Date Time Temp Pulse Resp B/P (MAP) Pulse Ox O2 Delivery O2 Flow Rate FiO2 07/16/17 08:00 98.0 70 12 118/68 100 Nasal Cannula 2.00 07/16/17 04:15 98.2 74 19 122/78 98 Nasal Cannula 2.00 07/16/17 00:01 97.9 70 18 119/76 99 Nasal Cannula 2.00 07/15/17 20:00 99 Nasal Cannula 2.00 07/15/17 19:22 Nasal Cannula 07/15/17 19:11 98.6 83 18 120/77 99 07/15/17 16:07 97.6 65 18 136/82 100 07/15/17 12:02 97.6 64 18 133/85 96 07/15/17 10:45 97.6 64 18 133/85 96 07/15/17 10:30 Nasal Cannula 2.00 07/15/17 10:10 69 18 100 Nasal Cannula 2.00 07/15/17 09:17 69 18 140/100 100 Nasal Cannula 2.00 Capillary Refill : Less Than 3 Seconds General Appearance: No Apparent Distress HEENT: PERRL/EOMI, Normal ENT Inspection (eyes icteric) Neck: Normal Inspection, Non Tender, Supple Respiratory: No Accessory Muscle Use, No Respiratory Distress Cardiovascular: Regular Rate, Rhythm Gastrointestinal: normal bowel sounds, tenderness (RUQ minimal on palpation today) Extremity: Normal Inspection, Non Tender Neurologic/Psychiatric: Alert, Oriented x3, No Motor/Sensory Deficits, Normal Mood/Affect Skin: Normal Color, Warm/Dry Results Lab Laboratory Tests 07/16/17 06:55: White Blood Count 5.0, Red Blood Count 4.09L, Hemoglobin 12.6, Hematocrit 39, Mean Corpuscular Volume 95, Mean Corpuscular Hemoglobin 31, Mean Corpuscular Hemoglobin Concent 33, Red Cell Distribution Width 13.7, Platelet Count 155, Mean Platelet Volume 10.5H, Sodium Level 137, Potassium Level 3.5L, Chloride Level 106, Carbon Dioxide Level 21, Anion Gap 10, Blood Urea Nitrogen 11, Creatinine 0.67, Estimat Glomerular Filtration Rate > 60, BUN/Creatinine Ratio 16, Glucose Level 91, Calcium Level 8.7, Total Bilirubin 6.6#H, Aspartate Amino Transf (AST/SGOT) 531H, Alanine Aminotransferase (ALT/SGPT) 605#H, Alkaline Phosphatase 164H, Total Protein 6.8, Albumin 3.5, Triglycerides Level 48, Cholesterol Level 140, LDL Cholesterol Direct 65, VLDL Cholesterol 10, HDL Cholesterol 61H Assessment/Plan Assessment/Plan Assessment/Plan CHOLELITHIASIS ABDOMINAL PAIN HYPERTENSION DEPRESSION ANXIETY COPD Patient understands risk and benefits. Cholecystectomy cholangiogram possible open all other indicated procedures. Patient will plan on to the OR today. Patient also understands that depending on results of clinic and may need ERCP which would be at another facility. Patient understands and wishes to proceed. Clinical Quality Measures AMI/AHF: ASA po Prior to arrival: No DVT/VTE Risk/Contraindication: Risk Factor Score Per Nursin RFS Level Per Nursing on Admit: 4+=Very High MOSES LARIOS DO Jul 16, 2017 09:06
[2017-07-16] MEDS: ALPRAZolam 1 MG (XANAX) TAB PO SCH ×2 (09:11→20:32)
[2017-07-16] MEDS: meTOprolol TARTRATE 25 MG (LOPRESSOR) TABLET PO SCH ×2 (10:03→20:32)
[2017-07-16] MEDS: fentaNYL INJECTION 100 MCG/2 ML AMP IV PRN (10:03)
[2017-07-16] MEDS ORDERED: LIDOCAINE 1% INJ 20 ML (XYLOCAINE) VIAL ONE (10:41)
[2017-07-16] MEDS ORDERED: LIDOCAINE PF 2% 5 ML (XYLOCAINE) VIAL ONE ×2 (10:41→13:24)
[2017-07-16] MEDS ORDERED: ONDANSETRON 4 MG/2 ML (SDV) Z0FRAN ONE ×2 (10:41→14:00)
[2017-07-16] MEDS ORDERED: BUPIVACAINE 0.5% 30 ML (SENSORCAINE) VIAL ONE (10:41)
[2017-07-16] MEDS ORDERED: ROCURONIUM 50 MG/5 ML (ZEMURON) VIAL IV ONE (10:41)
[2017-07-16] MEDS ORDERED: SEVOFLURANE (ULTANE) 15 ML INHAL SOLN ONE ×5 (10:41→13:05)
[2017-07-16] MEDS ORDERED: DEXAMETHASONE 10 MG/ML (DECADRON) 1 ML VIAL ONE (10:41)
[2017-07-16] MEDS ORDERED: fentaNYL INJECTION 100 MCG/2 ML AMP ONE (10:42)
[2017-07-16] MEDS ORDERED: MIDAZOLAM 2 MG/2 ML (VERSED) VIAL ONE (10:42)
[2017-07-16] MEDS: LACTATED RINGERS 1,000 ML IV SCH ×2 (11:40→12:49)
[2017-07-16 12:00] VITALS: BP 135/75
[2017-07-16] MEDS ORDERED: NEOSTIGMINE (BLOXIVERZ ) 1 MG/1ML 10 ML VIAL ONE (13:08)
[2017-07-16] MEDS ORDERED: GLYCOPYRROLATE 0.2 MG/ML (ROBINUL) 2 ML VIAL ONE (13:08)
[2017-07-16] MEDS ORDERED: proPOfol 200 MG/20 ML (DIPRIVAN) VIAL IV ONE (13:24)
--- NOTE | 2017-07-16 13:36 | Progress Note-Post Operative ---
Post-Operative Progess Note Surgeon (s)/Spanish Linguist (s) Surgeon MOSES LARIOS DO Spanish Linguist: Dr. Akers Pre-Operative Diagnosis cholecystitis, cholelithiasis Post-Operative Diagnosis same, intrabdominal adhesions, abdominal wall hernia Procedure & Operative Findings Date of Procedure 07/16/17 Procedure Performed/Findings laparoscopic lysis of adhesions, cholecystectomy with intraoperative cholangiogram Anesthesia Type gen Estimated Blood Loss Estimated blood loss (mL): minimal Specimens/Packing Specimens Removed gallbladder MOSES LARIOS DO Jul 16, 2017 13:35
[2017-07-16] MEDS: morphine INJ 10 MG/ML 1ML (SYR OR VIAL) IVP PRN ×2 (13:54→13:59)
[2017-07-16] MEDS ORDERED: ONDANSETRON 4 MG/2 ML (SDV) Z0FRAN IVP PRN (14:00)
[2017-07-16] MEDS ORDERED: HYDROmorphone (DILAUDID) 2 MG/ML VIAL ONE (14:00)
[2017-07-16] MEDS: HYDROmorphone (DILAUDID) 2 MG/ML VIAL IVP PRN ×2 (14:10→14:20)
--- NOTE | 2017-07-16 15:42 | Diagnostic Imaging Report ---
Intraoperative cholangiogram. INDICATION: Fluoroscopic cholecystectomy performed by Dr. Deal for abdominal pain. 10 seconds of fluoroscopy time is provided. 5 cc of Omnipaque 300 is injected through the cystic duct. FINDINGS: There is mild dilatation of the CBD, common hepatic duct, and intrahepatic ducts. There is tapering within the distal aspect of the CBD. This is equivocal for normal intrapancreatic constriction versus a stricture. There is passage of contrast into the duodenum. No filling defects to suggest stones. IMPRESSION: 1. There is narrowing of the distal CBD with mild dilatation proximally without focal filling defect. 2. Upon discussion with Dr. Deal, his assessment is consistent with likely recent passage of stone which may result in remaining spasm in the distal CBD explaining these findings. Correlate clinically and consider followup MRCP to ensure no distal CBD periampullary lesion is present. Dictated by: Dictated on workstation # [id number]
[2017-07-16 16:19] VITALS: BP 107/55
[2017-07-16 19:59] VITALS: BP 100/56
[2017-07-16] MEDS: LOSARTAN 50 MG (COZAAR) TAB PO SCH (20:32)
[2017-07-17 00:20] VITALS: BP 108/69
[2017-07-17] MEDS: NS IV 1000 ML 1,000 ML IV SCH ×2 (00:50→11:22)
[2017-07-17] MEDS: PIPERACILLIN/TAZOBACTAM 4.5 GM/NS 100 ML IVPB IV SCH ×4 (00:58→09:11)
[2017-07-17 04:15] VITALS: BP 115/76
[2017-07-17 06:18] LABS: MEAN PLATELET VOLUME 10.7 FL (7.4-10.4); RED BLOOD COUNT 3.45 10^6/uL (4.35-5.85); RED CELL DISTRIBUTION WIDTH 13.8 % (10.0-14.5); WHITE BLOOD COUNT 5.9 10^3/uL (4.3-11.0)
[2017-07-17 06:29] LABS: ALANINE AMINOTRANSFERASE 353 U/L (0-55); ALBUMIN 2.9 GM/DL (3.2-4.5); ANION GAP 6 MMOL/L (5-14); ASPARTATE AMINO TRANSFERASE 179 U/L (5-34); BILIRUBIN,TOTAL 1.8 MG/DL (0.1-1.0); BLOOD UREA NITROGEN 15 MG/DL (7-18); BUN/CREATININE RATIO 22; CALCIUM 8.4 MG/DL (8.5-10.1); CARBON DIOXIDE 22 MMOL/L (21-32); CHLORIDE 107 MMOL/L (98-107); CREATININE SERUM 0.67 MG/DL (0.60-1.30); GFR ESTIMATED > 60; GLUCOSE 131 MG/DL (70-105); POTASSIUM 4.1 MMOL/L (3.6-5.0); SODIUM 135 MMOL/L (135-145); TOTAL PROTEIN 6.1 GM/DL (6.4-8.2)
[2017-07-17 08:00] VITALS: BP 121/81
[2017-07-17] MEDS ORDERED: HYDROcodone/APAP 5 MG/325 MG (LORTAB) TAB PO PRN (08:00)
--- NOTE | 2017-07-17 08:48 | Progress Note (SOAP) ---
Subjective Date Seen by Provider: Jul 17, 2017 Time Seen by Provider: 09:10 Objective Exam Vital Signs Date Time Temp Pulse Resp B/P (MAP) Pulse Ox O2 Delivery O2 Flow Rate FiO2 07/17/17 08:00 97.1 69 18 121/81 99 Nasal Cannula 2.00 07/17/17 04:15 98.0 70 18 115/76 96 Nasal Cannula 2.00 07/17/17 00:20 97.8 67 18 108/69 93 Room Air 07/16/17 19:59 98.1 72 16 100/56 98 Nasal Cannula 2.00 07/16/17 19:30 99 Nasal Cannula 2.00 07/16/17 16:19 98.7 85 12 107/55 97 Nasal Cannula 2.00 07/16/17 12:00 98.6 73 20 135/75 98 Nasal Cannula 2.00 07/16/17 09:16 Nasal Cannula 2.00 Capillary Refill : Less Than 3 Seconds Results Lab Laboratory Tests 07/17/17 05:24: White Blood Count 5.9, Red Blood Count 3.45L, Hemoglobin 10.6L, Hematocrit 33L, Mean Corpuscular Volume 97, Mean Corpuscular Hemoglobin 31, Mean Corpuscular Hemoglobin Concent 32, Red Cell Distribution Width 13.8, Platelet Count 142, Mean Platelet Volume 10.7H, Sodium Level 135, Potassium Level 4.1, Chloride Level 107, Carbon Dioxide Level 22, Anion Gap 6, Blood Urea Nitrogen 15, Creatinine 0.67, Estimat Glomerular Filtration Rate > 60, BUN/Creatinine Ratio 22, Glucose Level 131H, Calcium Level 8.4L, Total Bilirubin 1.8#H, Aspartate Amino Transf (AST/SGOT) 179H, Alanine Aminotransferase (ALT/SGPT) 353H, Alkaline Phosphatase 133, Total Protein 6.1L, Albumin 2.9L Microbiology 07/15/17 MRSA Screen - Final, Complete MRSA not isolated Assessment/Plan Assessment/Plan Assess & Plan/Chief Complaint CHOLELITHIASIS ABDOMINAL PAIN HYPERTENSION DEPRESSION ANXIETY COPD CHOLELITHIASIS - GALLBLADDER ULTRASOUND FOLLOWS: - The gallbladder has multiple shadowing stones with no gallbladder wall thickening or pericholecystic fluid. Sonographic Milner sign is reportedly negative. - dx - CHOLELITHIASIS ABDOMINAL PAIN - PT TO USE PRN PAIN MEDICATION FOR CONTROL OF SYMPTOMS. HYPERTENSION - RESTART LOSARTAN AND METOPROLOL. DEPRESSION AND ANXIETY - PT TO RESTART SSRI AND ALPRAZOLAM. COPD - OXYGEN DEPENDENT - CONTINUE WITH TREATMENT WITH OXYGEN AND RESTART BREO ( OR HOSPITAL SUBSTITUTION). CT OF HEAD NEGATIVE FOR TIA/STROKE - SYMPTOMS ARE COMPLETELY RESOLVED AT THE TIME OF MY EVALUATION OF THE PATIENT. SHE IS KNOWN TO HAVE A SOMEWHAT ASYMMETRIC FACE AND RECENT FACIAL INJURY AFTER FALL AT HOME WITH EXTENSIVE BRUISING THAT HAS SINCE RESOLVED. Clinical Quality Measures AMI/AHF: ASA po Prior to arrival: No DVT/VTE Risk/Contraindication: Risk Factor Score Per Nursin RFS Level Per Nursing on Admit: 4+=Very High YAZAN KERR MD Jul 17, 2017 08:48
[2017-07-17] MEDS ORDERED: PANTOPRAZOLE 20 MG TABLET (PROTONIX) PO ONE (09:02)
[2017-07-17] MEDS: ALPRAZolam 1 MG (XANAX) TAB PO SCH (09:12)
[2017-07-17] MEDS: meTOprolol TARTRATE 25 MG (LOPRESSOR) TABLET PO SCH (09:12)
[2017-07-17 12:00] VITALS: BP 96/64
--- NOTE | 2017-07-17 12:40 | OPERATIVE REPORT ---
DATE OF SERVICE: 07/16/2017 PREOPERATIVE DIAGNOSES: Cholecystitis, cholelithiasis. POSTOPERATIVE DIAGNOSES: Cholecystitis, cholelithiasis with intraabdominal adhesions and abdominal wall hernia. PROCEDURE: Laparoscopic lysis of adhesions, cholecystectomy with intraoperative cholangiogram. SURGEON: Moses Deal DO STRATIGRAPHER: Dr. Akers, assisted in retraction, dissection, and closure. ANESTHESIA: General. ESTIMATED BLOOD LOSS: Minimal. COMPLICATIONS: None. INDICATIONS: The patient is a 77-year-old female who came in with abdominal pain in epigastric right upper quadrant region. Workup revealed cholelithiasis and pericholecystic fluid with elevated liver enzymes and elevated total bilirubin. The patient was explained risks and benefits of procedure. Consent was signed and on the chart. DESCRIPTION OF PROCEDURE: The patient was taken to the operating suite, she was prepped and draped in sterile fashion. Surgical pause was performed. A 12 mm incision was made just superior to umbilicus and dissected down to the fascia, which was then scored, grasped, and elevated, and the abdomen was then entered. A balloon trocar was then inserted and pneumoperitoneum was achieved. From initially putting the scope in, there was a large amount of adhesions from previous her surgeries which had to be bluntly taken down with the scope. A window was created that a trocar could be placed in the right upper quadrant and a 5 mm trocar was then placed under direct visualization of the laparoscope. Cauterizing scissors were then used to take down the adhesions making way for a second 5 mm trocar to be placed in the right upper quadrant. This was placed under direct visualization of the laparoscope. The adhesions were continued to be taken down until the liver and gallbladder were able to be visualized. The gallbladder was edematous and demonstrates acute pathology. There were also adhesions attached to it as well from the omentum. There was also a hernia that was noted in the right upper quadrant and also up towards the left of the falciform moving up into the chest. The gallbladder was then able to be inspected, grasped and elevated. It was distended and friable. The cystic duct and cystic artery were then carefully dissected out and cystic artery was in a more anterior position, so it was easier to dissect around the cystic artery. Put clips on the proximal and distal portion and then transected. This was then carefully mobilized down towards the proximal portion of the cystic duct. The cystic duct was then dissected around, the cystic duct was dilated as well. A clip was placed on the distal portion of the cystic duct and the duct was then partially transected. Arrow catheter was inserted into the distal portion of the cystic duct and the balloon was insufflated and a cholangiogram was then performed. The ducts did appear to be slightly dilated with narrowing down towards the distal portion of the common bile duct which I feel this is probably related to spasm. Contrast made its way into the duodenum. There were no filling defects. Due to the duct being dilated, an Endoloop Prolene suture was placed around the cystic duct and tightened down. Hook cautery was used to dissect the gallbladder from the gallbladder fossa achieving hemostasis. Copious amounts of irrigation was used to irrigate the abdomen. The gallbladder was placed in an Endobag and removed through the 12 mm trocar site. Again, the abdomen was reinspected and no active bleeding. Hemostasis had been achieved. The 12 mm fascial defect was closed using 0 Vicryl in a [id number] fashion, all the trocars were removed. Local anesthetic was used to infiltrate all the incisions prior to initial incision. The skin was then closed in a subcuticular fashion. The area was then washed and dried, sterile bandages were applied after Mastisol and Steri-Strips were applied. The patient tolerated the procedure well. She was taken to recovery room in stable condition. Job ID: [id number] DocumentID: [id number] Dictated Date: 07/16/2017 17:29:20 Club Steward Date: 07/17/2017 01:43:01 Dictated By: MOSES DEAL DO
[2017-07-17] MEDS ORDERED: DOCU-143 PO (13:33)
[2017-07-17] MEDS ORDERED: HYDR-3812 PO (13:33)
--- NOTE | 2017-07-17 13:36 | Discharge Inst-Simple/Standard ---
Discharge Inst-Standard Discharge Medications New, Converted or Re-Newed RX: RX on Chart Patient Instructions/Follow Up Plan of Care/Instructions/FU: [address] Deal [address] Burden Activity as Tolerated: No Discharge Diet: Regular Diet Other Inst to Patient Follow up Appt: Make appointment for [address] Deal and Jenise Instructions: No lifting greater than 10 pounds. No strenuous activity. May shower in 24 hours, no tub bath or soaking. Use incentive spirometer at home as directed. No Smoking Skin/Wound Care: May remove bandages. You need to leave the white strips over incision on they will fall off on their own. Symptoms to Report: Appetite Changes, Extremity Discoloration, Numbness/Tingling, Swelling Increased , Bleeding Excessive, Eyesight Changes, Pain Increased, Urine Color Change, Constipation(Persistent), Fever over 101 degree F, Pain/Pressure in chest, Urinating Difficulty, Cough Up/Vomit Blood, Heart Beat Irreg/Pounding, Pain/ Pressure in jaw, Vaginal Bleeding Increase, Cramps in feet or legs, Lightheadedness, Pain/Pressure in shoulder, Diarrhea(Persistent), Memory Changes Suddenly, Questions/Concerns, Weight gain consecutive days, Dizziness/ Fainting, Nausea/Vomiting, Shortness of Breath, Weight gain over 2 pounds. If eyes or skin turn yellow notify physician. If questions or concerns contact your physician Or seek help at emergency department. MOSES DEAL DO Jul 17, 2017 13:35
--- NOTE | 2017-07-17 13:42 | Progress Note ---
Subjective Date Seen by Provider: Jul 17, 2017 Time Seen by Provider: 13:40 Subjective/Events-last exam Patient feeling better today. Tolerating liquids. Liver enzymes and bilirubin down. Denies n/v fever sweats chills shortness of breath or chest pain. Objective Exam Vital Signs Date Time Temp Pulse Resp B/P (MAP) Pulse Ox O2 Delivery O2 Flow Rate FiO2 07/17/17 12:00 97.5 54 18 96/64 99 Nasal Cannula 2.00 07/17/17 08:00 97.1 69 18 121/81 99 Nasal Cannula 2.00 07/17/17 04:15 98.0 70 18 115/76 96 Nasal Cannula 2.00 07/17/17 00:20 97.8 67 18 108/69 93 Room Air 07/16/17 19:59 98.1 72 16 100/56 98 Nasal Cannula 2.00 07/16/17 19:30 99 Nasal Cannula 2.00 07/16/17 16:19 98.7 85 12 107/55 97 Nasal Cannula 2.00 Capillary Refill : Less Than 3 Seconds General Appearance: No Apparent Distress HEENT: PERRL/EOMI, Normal ENT Inspection Neck: Normal Inspection, Non Tender, Supple Respiratory: No Accessory Muscle Use, No Respiratory Distress Cardiovascular: Regular Rate, Rhythm Gastrointestinal: normal bowel sounds, tenderness (incisional tenderness) Extremity: Normal Inspection, Non Tender Neurologic/Psychiatric: Alert, Oriented x3, No Motor/Sensory Deficits, Normal Mood/Affect Skin: Normal Color, Warm/Dry Results Lab Laboratory Tests 07/17/17 05:24: White Blood Count 5.9, Red Blood Count 3.45L, Hemoglobin 10.6L, Hematocrit 33L, Mean Corpuscular Volume 97, Mean Corpuscular Hemoglobin 31, Mean Corpuscular Hemoglobin Concent 32, Red Cell Distribution Width 13.8, Platelet Count 142, Mean Platelet Volume 10.7H, Sodium Level 135, Potassium Level 4.1, Chloride Level 107, Carbon Dioxide Level 22, Anion Gap 6, Blood Urea Nitrogen 15, Creatinine 0.67, Estimat Glomerular Filtration Rate > 60, BUN/Creatinine Ratio 22, Glucose Level 131H, Calcium Level 8.4L, Total Bilirubin 1.8#H, Aspartate Amino Transf (AST/SGOT) 179H, Alanine Aminotransferase (ALT/SGPT) 353H, Alkaline Phosphatase 133, Total Protein 6.1L, Albumin 2.9L Microbiology 07/15/17 MRSA Screen - Final, Complete MRSA not isolated Assessment/Plan Assessment/Plan Assessment/Plan CHOLELITHIASIS/Cholecystitis S/p lap damaris c IOC ABDOMINAL PAIN HYPERTENSION DEPRESSION ANXIETY COPD Patient liver enzymes improving improving. Oral pain control. Advance diet. Home today or tomorrow. Final Diagnosis Cholelithiasis Cholecystitis S/p Laparoscopic cholecystectomy with intraoperative cholangiogram, COPD, Hypertension, Anxiety Clinical Quality Measures AMI/AHF: ASA po Prior to arrival: No DVT/VTE Risk/Contraindication: Risk Factor Score Per Nursin RFS Level Per Nursing on Admit: 4+=Very High MOSES LARIOS DO Jul 17, 2017 13:42
[2017-07-17 14:45] VITALS: BP 96/64
[2017-07-18] MEDS ORDERED: PANTOPRAZOLE 20 MG TABLET (PROTONIX) PO SCH (09:00)
== END 2017-07-17 15:05 | disposition home or self-care (01) | DRG 419 ==
LOC: EDUNIT# 06:51 → ER 06:52 → 4TH 09:55
PROVIDERS: ADMIT Surgery; ATTEND Surgery
PROC: 0DNU4ZZ Release Omentum, Percutaneous Endoscopic Approach (ICD-10-PCS; 2017-07-16)
PROC: BF101ZZ Fluoroscopy of Bile Ducts using Low Osmolar Contrast (ICD-10-PCS; 2017-07-16)
PROC: 0FT44ZZ Resection of Gallbladder, Percutaneous Endoscopic Approach (ICD-10-PCS; principal; 2017-07-16 12:03)
DX: K80.10 Calculus of gallbladder with chronic cholecystitis without obstruction (principal); K82.8 Other specified diseases of gallbladder; K66.0 Peritoneal adhesions (postprocedural) (postinfection); J43.9 Emphysema, unspecified; I10 Essential (primary) hypertension; K21.9 Gastro-esophageal reflux disease without esophagitis; K43.9 Ventral hernia without obstruction or gangrene; Z23 Encounter for immunization; K44.9 Diaphragmatic hernia without obstruction or gangrene; M19.91 Primary osteoarthritis, unspecified site; M54.9 Dorsalgia, unspecified; F41.9 Anxiety disorder, unspecified; F32.9 Major depressive disorder, single episode, unspecified; R29.810 Facial weakness; M79.662 Pain in left lower leg; Z99.81 Dependence on supplemental oxygen; Z87.891 Personal history of nicotine dependence; Z87.828 Personal history of other (healed) physical injury and trauma
CPT/HCPCS: 36415; 70450; 71010; 71275; 74175; 76705; 80053; 80061; 82150; 83690; 83735; 83874; 84484; 85025; 85027; 85379; 85610; 85730; 87081; 93005; 93041; 94664; 96361; 96374

== ENCOUNTER → 2017-08-11 | Outpatient (CLI) | payer MEDICARE, OTHER ==
[~2017-08-11] MED LIST changes: +ALPR1TAB7 PO; +ASPI-983 PO; +CHOL20003 PO; +DOCU-143 PO; +FLUT1AER IH; +HYDR-3812 PO; +IBUP-1780 PO; +LOSA100T28 PO; +METO50TA2 PO
--- NOTE | 2017-08-11 12:47 | Diagnostic Imaging Report ---
PROCEDURE: MR imaging cholangiography-pancreatography. TECHNIQUE: Multiplanar imaging of the abdomen was performed on a 1.5 Maddie magnet without contrast. 3D reconstructions were made for the MRCP INDICATION: Distal CBD narrowing seen on intraoperative cholangiogram of 07/16/2017. FINDINGS: The intra-and extrahepatic bile ducts are normal. The distal CBD narrowing seen on intraoperative cholangiogram of 07/16/2017 has resolved with normal appearance of the duct seen and only constriction of the duct at the ampulla of Vater area. There is no significant dilatation. No evidence of bile duct stone or mass. Maximum CBD caliber is 8mm which is normal for the patient's age and postcholecystectomy. Images demonstrate a small hiatal hernia. There is also colonic thickening noted within the cecum and ascending colon which may relate to colitis. Neoplastic etiology is less likely. IMPRESSION: 1. Normal caliber of the bile ducts with no evidence of obstruction, stones or other abnormality. 2. Small to moderate-sized hiatal hernia. 3. Thickening in the cecum and ascending colon. This could relate to colitis or less likely underlying neoplasm. Colonoscopy evaluation is recommended. The findings in the colon and the recommendations were discussed by phone with Dr. Deal at time of dictation. Dictated by: Dictated on workstation # [id number]
== END ==
LOC: RAD 10:59
PROVIDERS: ATTEND Surgery
DX: K44.9 Diaphragmatic hernia without obstruction or gangrene (principal); K63.89 Other specified diseases of intestine
CPT/HCPCS: 74181

== ENCOUNTER 2017-08-27 05:41 | Outpatient (CLI) | payer MEDICARE, OTHER ==
[~2017-08-27] VITALS: Ht 152.4 cm; Wt 63.0 kg
== END 2017-08-27 14:32 ==
LOC: PREOP 05:41
PROVIDERS: ATTEND Surgery
DX: Z01.818 Encounter for other preprocedural examination (principal); K52.9 Noninfective gastroenteritis and colitis, unspecified; R93.3 Abnormal findings on diagnostic imaging of other parts of digestive tract

== ENCOUNTER 2017-09-02 09:42 | Day surgery (SDC) | payer MEDICARE, OTHER ==
[~2017-09-02] VITALS: Ht 152.4 cm; Wt 63.0 kg
[~2017-09-02 09:42] MED LIST changes: +METO50TA15 PO; -METO50TA2 PO
[2017-09-02] MEDS ORDERED: LACTATED RINGERS 1,000 ML IV STA (09:54)
[2017-09-02 10:12] VITALS: BP 144/112
[2017-09-02] MEDS ORDERED: proPOfol 200 MG/20 ML (DIPRIVAN) VIAL IV ONE (11:04)
--- NOTE | 2017-09-02 11:09 | Progress Note-Pre Operative ---
Pre-Operative Progress Note H&P Reviewed The H&P was reviewed, patient examined and no changes noted. Date Seen by Provider: Sep 02, 2017 Time Seen by Provider: 11:08 Date H&P Reviewed: Sep 02, 2017 Time H&P Reviewed: 11:08 Pre-Operative Diagnosis: abnormal mri, chronic diarrhea MOSES LARIOS DO Sep 02, 2017 11:08 am
--- NOTE | 2017-09-02 11:46 | Progress Note-Post Operative ---
Post-Operative Progess Note Surgeon (s)/Development Director (s) Surgeon MOSES LARIOS DO Development Director: na Pre-Operative Diagnosis abnormal mri, chronic diarrhea Post-Operative Diagnosis slight mucosal change ileocecal valve, diverticulosis Procedure & Operative Findings Date of Procedure 09/02/17 Procedure Performed/Findings colonoscopy with cold biopsies Anesthesia Type per banquet line cook Estimated Blood Loss Estimated blood loss (mL): none Specimens/Packing Specimens Removed ileocecal valve and random colon MOSES LARIOS DO Sep 02, 2017 11:46
--- NOTE | 2017-09-02 11:47 | Discharge Inst-Simple/Standard ---
Discharge Inst-Standard Patient Instructions/Follow Up Plan of Care/Instructions/FU: 2 weeks nishant Activity as Tolerated: Yes Discharge Diet: Regular Diet MOSES LARIOS DO Sep 02, 2017 11:47
[2017-09-02 12:15] VITALS: BP 143/73
[2017-09-02 12:50] VITALS: BP 148/69
[2017-09-02 13:00] VITALS: BP 148/69
--- NOTE | 2017-09-02 21:12 | OPERATIVE REPORT ---
DATE OF SERVICE: 09/02/2017 PREOPERATIVE DIAGNOSES: Abnormal MRI and chronic diarrhea. POSTOPERATIVE DIAGNOSES: Mucosal changes at the ileocecal valve and diverticulosis. PROCEDURE: Colonoscopy with cold biopsies. SURGEON: Moses Deal D.O. ANESTHESIA: Per BOBBIN CLEANER. ESTIMATED BLOOD LOSS: None. COMPLICATIONS: None. INDICATIONS: The patient is a 77-year-old female who had an MRI done demonstrating some slight changes by MRI of the colon. She understands risks and benefits of procedure and wished to proceed with procedure. She has also had some chronic diarrhea. She understands risks and benefits of procedure and wished to proceed with procedure. Consent was signed in the chart. DESCRIPTION OF PROCEDURE: The patient was taken to the endoscopy suite, placed in left lateral recumbent position. Timeout was performed. Digital rectal exam was performed and there were no palpable polyps, mass or ulcerations. The scope was inserted in the rectum and advanced all the way to the cecum with minimal difficulty. There were no polyps, masses or ulcerations in the cecum. The ileocecal valve had slight prominence in appearance, some slight mucosal change. Biopsy of this area was obtained. The scope was then slowly retracted back. There were no polyps, mass or ulcerations in the ascending, transverse, and descending colon. As the scope was being withdrawn, random biopsies were obtained. In the sigmoid, there is little bit diverticulosis present. Scope was continued to be slowly retracted back into the rectum where it was also retroflexed noting no other pathology. The scope was then returned to its normal position, slowly withdrawn until completely removed. The patient tolerated procedure well without any complications. She was taken to the recovery room in stable condition. RECOMMENDATIONS: The patient will follow up in 2 weeks to discuss pathology results. Further recommendations pending this. Job ID: [id number] DocumentID: [id number] Dictated Date: 09/02/2017 11:50:31 Sock And Stocking Ironer Date: 09/02/2017 17:11:44 Dictated By: MOSES DEAL DO
== END 2017-09-02 13:00 | disposition home or self-care (01) ==
LOC: ENDO 09:42
PROVIDERS: ATTEND Surgery
DX: K57.30 Diverticulosis of large intestine without perforation or abscess without bleeding (principal); R19.7 Diarrhea, unspecified; I25.10 Atherosclerotic heart disease of native coronary artery without angina pectoris; I10 Essential (primary) hypertension; M81.0 Age-related osteoporosis without current pathological fracture; K21.9 Gastro-esophageal reflux disease without esophagitis; J44.9 Chronic obstructive pulmonary disease, unspecified; Z79.899 Other long term (current) drug therapy; Z88.1 Allergy status to other antibiotic agents; Z87.891 Personal history of nicotine dependence
CPT/HCPCS: 88305

== ENCOUNTER → 2017-09-02 | Outpatient (CLI) | payer MEDICARE, OTHER ==
--- NOTE | 2017-09-02 14:18 | Diagnostic Imaging Report ---
EXAMINATION: Three views of the lumbar spine. INDICATION: Fall. FINDINGS: There is a 20% compression fracture of the T10 vertebral body. When correlated with the 07/15/2017 CTA of the chest, this appears to be a new fracture. This could be confirmed with an MRI of the thoracic spine. There is retrolisthesis of L2 over L3 and L3 over L4, grade 1 at both levels. There is no lumbar spine compression fracture. There is mild left convexity scoliotic curvature centered around the L3 level. There is multilevel moderate to severe disc height loss with vacuum phenomenon in the lumbar spine. Prominent anterior osteophytes are seen at multiple levels. Sclerotic changes of the lower lumbar spine facet joints are also noted. Mild degenerative changes of the SI joints are seen. IMPRESSION: 1. T10 vertebral body 20% compression fracture, probably acute. 2. Retrolisthesis of L2 over L3 and L3 over L4 is probably related to degenerative disc changes. Mild left convexity scoliotic curvature of the lumbar spine is seen. Mallorie Wetzel, Nurse practitioner taking care of the patient, was paged to discuss the findings at the time of dictation. Dictated by: Dictated on workstation # [id number]
--- NOTE | 2017-09-02 19:05 | Diagnostic Imaging Report ---
AP view of the pelvis. INDICATION: Fall. FINDINGS: Deformities along the pubic rami bilaterally are seen. Compared to CT pelvis from 05/20/2016 these appear to relate to acute fractures at that time with no definite new fracture identified. Moderate degenerative changes at the hip joints is noted. IMPRESSION: No acute fracture. Dictated by: Dictated on workstation # [id number]
== END ==
LOC: RAD 12:48
PROVIDERS: ATTEND Nurse Practitioner Family
DX: S22.070A Wedge compression fracture of T9-T10 vertebra, initial encounter for closed fracture (principal); M43.16 Spondylolisthesis, lumbar region; M43.9 Deforming dorsopathy, unspecified; W19.XXXA Unspecified fall, initial encounter
CPT/HCPCS: 72100; 72170

== ENCOUNTER → 2017-09-03 | Outpatient (CLI) | payer MEDICARE, OTHER | LOC: PREOP 14:37 | DX: Z01.818 Encounter for other preprocedural examination (principal); S22.070A Wedge compression fracture of T9-T10 vertebra, initial encounter for closed fracture; X58.XXXA Exposure to other specified factors, initial encounter ==

== ENCOUNTER → 2017-09-03 | Outpatient (CLI) | payer MEDICARE, OTHER ==
--- NOTE | 2017-09-03 12:02 | Diagnostic Imaging Report ---
EXAMINATION: Multiplanar and multisequence MRI of the thoracic spine performed without intravenous contrast. INDICATION: Back pain. Injury on . There is loss of height seen on the vertebral body T10 on lumbar spine radiographs from 09/02/2017. FINDINGS: There is 20% vertebral body height loss involving T10 vertebra body with bone marrow edema seen. The alignment of the posterior spinal line is satisfactory. There is no evidence of retropulsion of the bone fragment into the spinal canal. The other vertebral bodies have normal body heights. There is a heterogenous marrow signal in general seen with a few levels demonstrating defined lesion suggestive of a vertebral hemangioma is most prominent in the T7 vertebral body measuring 1.6 CM. There is multilevel mild disc herniations in the mid thoracic spine levels with no significant spinal canal stenosis at any level. The spinal cord has normal caliber, contour and signal with no cord compression at any level. The site of the fracture and other vertebral bodies demonstrate no suspicious focal mass. There is disc desiccation at all the thoracic spine levels. The facet joints appear to have hypertrophic degenerative changes at multiple levels. The neural foramina demonstrate no high-grade stenosis at any level. There is suggestion of a small hiatal hernia. IMPRESSION: 1. Acute to subacute 20% compression fracture of T10 vertebral body. 2. Small hiatal hernia. Dictated by: Dictated on workstation # [id number]
== END ==
LOC: RAD 10:32
PROVIDERS: ATTEND Nurse Practitioner Family
DX: S22.079A Unspecified fracture of T9-T10 vertebra, initial encounter for closed fracture (principal); K44.9 Diaphragmatic hernia without obstruction or gangrene
CPT/HCPCS: 72146

== ENCOUNTER → 2017-09-04 | Day surgery (SDC) | payer MEDICARE, OTHER ==
[~2017-09-04] VITALS: Ht 152.4 cm; Wt 63.0 kg
[~2017-09-04] MED LIST changes: +CATHETER FLUSH 10 ML SYR IV ONE; +FAMOTIDINE 20MG/2ML IV (PEPCID) IV ONE; +GLYCOPYRROLATE 0.2 MG/ML (ROBINUL) 2 ML VIAL ONE; +HYDROcodone/APAP 5 MG/325 MG (LORTAB) TAB PO PRN; +ISOFLURANE (FORANE) 15 ML/15 MIN INHALATION ONE; +LABETALOL HCL 20 MG/4 ML VIAL IV ONE; +LABETALOL HCL 20 MG/4 ML VIAL ONE; +LACTATED RINGERS 1,000 ML IV PRN; +LIDOCAINE 1% INJ 20 ML (XYLOCAINE) VIAL ONE; +LIDOCAINE PF 2% 5 ML (XYLOCAINE) VIAL ONE; +MEPERIDINE (DEMEROL) INJ 50 MG/ML IVP PRN; +MIDAZOLAM 2 MG/2 ML (VERSED) VIAL ONE; +NEOSTIGMINE (BLOXIVERZ ) 1 MG/1ML 10 ML VIAL ONE; +SEVOFLURANE (ULTANE) 15 ML INHAL SOLN ONE; +SUCCINYLCHOLINE INJ 100 MG/5 ML SYR ONE; +ceFAZolin 1 GM/NS 50 ML IVPB IV ONE; +fentaNYL INJECTION 100 MCG/2 ML AMP ONE; +morphine INJ 10 MG/ML 1ML (SYR OR VIAL) IVP PRN; +proPOfol 200 MG/20 ML (DIPRIVAN) VIAL IV ONE
[2017-09-04 13:45] VITALS: BP 148/91
[2017-09-04 13:59] LABS: BASOPHILS % (AUTO) 0 % (0-10); EOSINOPHILS # (AUTO) 0.4 10^3/uL (0.0-0.3); EOSINOPHILS % (AUTO) 8 % (0-10); LYMPHOCYTES # (AUTO) 1.1 X 10^3 (1.0-4.0); LYMPHOCYTES % (AUTO) 22 % (12-44); MEAN CORPUSCULAR HEMOGLOBIN 31 PG (25-34); MEAN CORPUSCULAR HGB CONC 32 G/DL (32-36); MEAN CORPUSCULAR VOLUME 95 FL (80-99); MEAN PLATELET VOLUME 9.7 FL (7.4-10.4); MONOCYTES # (AUTO) 0.4 X 10^3 (0.0-1.0); MONOCYTES % (AUTO) 8 % (0-12); NEUTROPHILS # (AUTO) 3.2 X 10^3 (1.8-7.8); NEUTROPHILS % (AUTO) 62 % (42-75); PLATELET COUNT 181 10^3/uL (130-400); RED BLOOD COUNT 3.64 10^6/uL (4.35-5.85); RED CELL DISTRIBUTION WIDTH 14.4 % (10.0-14.5); WHITE BLOOD COUNT 5.2 10^3/uL (4.3-11.0)
[2017-09-04 14:17] LABS: PROTHROMBIN TIME PATIENT 13.2 SEC (12.2-14.7)
--- NOTE | 2017-09-04 17:32 | Pre-Procedure Progress Note ---
Pre-Procedure Progress Note H&P Reviewed The H&P was reviewed, patient examined and no changes noted. Date H&P Reviewed: Sep 04, 2017 Time H&P Reviewed: 15:00 Pre-Procedure Diagnosis: T10 compression fx YANCY ROYAL MD Sep 04, 2017 17:32
--- NOTE | 2017-09-04 17:33 | Discharge Instructions ---
Discharge Instructions Home Medicaitons Changes Hold Aspirin for [24 hours]. YANCY ROYAL MD Sep 04, 2017 17:33
[2017-09-04 18:45] VITALS: BP 160/85
[2017-09-04 20:05] VITALS: BP 162/98
--- NOTE | 2017-09-05 07:56 | Diagnostic Imaging Report ---
EXAMINATION: Kyphoplasty with fluoroscopy guidance. INDICATION: 77-year-old female patient with the compression fracture of T10 vertebral body after a fall with severe back pain intractable, not responding to oral pain medications and limiting the patient's activity. CONSENT: Informed consent was obtained from the patient. The risks, benefits, potential complications and alternatives were reviewed and all questions answered to the patient's satisfaction. The patient's vital signs, cardiac rhythm, and pulse oximetry were observed throughout the procedure by qualified nursing personnel. ANESTHESIA: See anesthesia note. FLUOROSCOPY TIME: 5 minutes. Medications: Ancef one g IV preoperatively. Estimated blood loss: Less than 20 mL. PROCEDURE: Maximal sterile barrier preparation and draping is performed to the back with the patient prone on the operative table, including sterile covering of the fluoroscopy machine. The T10 vertebral level is localized with anterior and lateral fluoroscopic visualization. Appropriate orientation and angle was marked and a transpedicular approach was deemed appropriate. A left paramedian skin incision is made and cannula with distal half size of 12-gauge is advanced under fluoroscopic guidance in both projections. This is advanced through the pedicle under fluoroscopic guidance and the tip of the cannula was placed along the posterior one-third of the vertebral body. Vertebral body biopsy was performed from the left vertebral access needle. Subsequently, a manual drill is utilized under fluoroscopic guidance to create a tract was performed to near the anterior border of the vertebral body. Subsequently a 15/2 balloon is advanced into the vertebral body and inflated with rated pressure, upto 200. Considerable reduction of the compression fracture is achieved with balloon inflation. Subsequently cement injection after appropriate mixing and maturation is performed alternatively in both cannulas until filling into the posterior third of the vertebral body is achieved. Total of 5 cc of cement introduced. Cement introduction was performed under imaging guidance. No extravasation of cement into the spinal canal is seen. Both cannulas were removed with the stylet in place, after cement introduction. No immediate complications. IMPRESSION: Successful T10 kyphoplasty via fluoroscopy-guided bilateral transpedicular approach. Dictated by: Dictated on workstation # [id number]
== END | disposition home or self-care (01) ==
LOC: SDC 11:49
DX: S22.079A Unspecified fracture of T9-T10 vertebra, initial encounter for closed fracture (principal); M81.0 Age-related osteoporosis without current pathological fracture; K21.9 Gastro-esophageal reflux disease without esophagitis; K58.9 Irritable bowel syndrome, unspecified; I10 Essential (primary) hypertension; J44.9 Chronic obstructive pulmonary disease, unspecified; F32.9 Major depressive disorder, single episode, unspecified; F41.9 Anxiety disorder, unspecified; I71.2 Thoracic aortic aneurysm, without rupture; W19.XXXA Unspecified fall, initial encounter; Z87.891 Personal history of nicotine dependence; Z79.82 Long term (current) use of aspirin; Z79.899 Other long term (current) drug therapy
CPT/HCPCS: 36415; 85025; 85610; 87081

== ENCOUNTER 2017-11-30 10:52 | Emergency (ER) | payer MEDICARE, OTHER ==
[~2017-11-30] VITALS: Ht 152.4 cm; Wt 59.0 kg
[~2017-11-30 10:52] MED LIST changes: +ACHD5005 PO; -CATHETER FLUSH 10 ML SYR IV ONE; -FAMOTIDINE 20MG/2ML IV (PEPCID) IV ONE; -GLYCOPYRROLATE 0.2 MG/ML (ROBINUL) 2 ML VIAL ONE; -HYDR-3812 PO; -HYDROcodone/APAP 5 MG/325 MG (LORTAB) TAB PO PRN; -ISOFLURANE (FORANE) 15 ML/15 MIN INHALATION ONE; -LABETALOL HCL 20 MG/4 ML VIAL IV ONE; -LABETALOL HCL 20 MG/4 ML VIAL ONE; -LACTATED RINGERS 1,000 ML IV PRN; -LIDOCAINE 1% INJ 20 ML (XYLOCAINE) VIAL ONE; -LIDOCAINE PF 2% 5 ML (XYLOCAINE) VIAL ONE; -MEPERIDINE (DEMEROL) INJ 50 MG/ML IVP PRN; -MIDAZOLAM 2 MG/2 ML (VERSED) VIAL ONE; -NEOSTIGMINE (BLOXIVERZ ) 1 MG/1ML 10 ML VIAL ONE; -SEVOFLURANE (ULTANE) 15 ML INHAL SOLN ONE; -SUCCINYLCHOLINE INJ 100 MG/5 ML SYR ONE; -ceFAZolin 1 GM/NS 50 ML IVPB IV ONE; -fentaNYL INJECTION 100 MCG/2 ML AMP ONE; -morphine INJ 10 MG/ML 1ML (SYR OR VIAL) IVP PRN; -proPOfol 200 MG/20 ML (DIPRIVAN) VIAL IV ONE
--- OUTSIDE RECORDS SUMMARY | 2017-11-30 11:01 | XMS REPORT | CCD ---
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 Name Role Phone PP Unavailable CCM Unavailable Summary Purpose Interface Exchange Insurance Providers Payer name Policy type / Coverage type Covered alliance party ID Effective Begin Date Effective End Date WPS Medicare Part B Medicare Part B [id number] Unknown AETNA Medicare Part B [id number] 2014 Unknown Family history Brother Diagnosis Age At Onset Pulmonary embolism Unknown Blood clot Unknown Father Diagnosis Age At Onset Skin cancer Unknown Emphysema Unknown Heart disease Unknown Runs in the family Diagnosis Age At Onset No Family Disease Entered N/A Daughter Diagnosis Age At Onset No Family Disease Entered N/A Mother Diagnosis Age At Onset Stroke Unknown Diabetes mellitus Type 2 Unknown Social History Social History Element Codes Description Effective Dates Marital status Unknown 02/07/2015 Number of children Unknown 3 02/07/2015 Employment Unknown Currently employed works at [employer] 02/07/[address]: 6511937 Quit over 10 years ago 199302/07/2015 Number of years using tobacco Unknown 20 - 30 02/07/2015 Alcohol history Unknown occasionally drinks alcohol 02/07/2015 Allergies, Adverse Reactions, Alerts Allergies, Adverse Reactions, Alerts data not found Past Medical History Illness Codes Condition Status Onset Date Resolved Date Dependence on supplemental oxygen ICD-9: V46.2 ICD-10: Z99.81 Active 10/16/2017 Unknown Effusion, left knee ICD-9: 719.06 ICD-10: M25.462 Active 06/16/2017 Unknown Essential (primary) hypertension ICD-9: 401.1 ICD-10: I10 Active 01/14/2017 Unknown Hypoxemia ICD-9: 799.02 ICD-10: R09.02 Active 10/16/2017 Unknown Other emphysema ICD-9 : 492.8 ICD-10: J43.8 Active 07/31/2017 Unknown Pain in left knee ICD- 9: 719.46 ICD-10: M25.562 Active 06/16/2017 Unknown Pain in thoracic spine ICD-9: 724.1 ICD-10: M54.6 Active 09/03/2017 Unknown Abnormal levels of other serum enzymes ICD-9: 790.5 ICD-10: R74.8 Active 07/18/2017 Unknown Calculus of gallbladder without cholecystitis without obstruction ICD-9: 574.20 ICD-10: K80.20 Active 07/18/2017 Unknown Unsteadiness on feet ICD-9: 781.2 ICD-10: R26.81 Active 05/28/2017 Unknown Chronic obstructive pulmonary disease with acute lower respiratory infection ICD-9: 491.22 ICD-10: J44.0 Active 05/05/2017 Unknown Major depressive disorder, recurrent, mild ICD-9: 296.31 ICD-10: F33.0 Active 07/16/2016 Unknown Chronic obstructive pulmonary disease, unspecified ICD-9: 496 ICD-10: J44.9 Active 01/01/2017 Unknown Gastro-esophageal reflux disease without esophagitis ICD-9: 530.81 ICD-10: K21.9 Active 02/06/2015 Unknown Dehydration ICD-9: 276.51 ICD-10: E86.0 Active 01/07/2017 Unknown Headache ICD-9: 784.0 ICD-10: R51 Active 12/11/2016 Unknown Other fatigue ICD-9: 780.79 ICD-10: R53.83 Active 12/11/2016 Unknown Other malaise ICD-9: 780.79 ICD-10: R53.81 Active 01/07/2017 Unknown Palpitations ICD-9: 785.1 ICD-10: R00.2 Active 01/07/2017 Unknown Essential (primary) hypertension ICD-9: 401.9 ICD-10: I10 Active 02/06/2015 Unknown Encounter for general adult medical examination with abnormal findings ICD-9: V70.0 ICD-10: Z00.01 Active 12/12/2016 Unknown Other allergic rhinitis ICD-9: 477.9 ICD-10: J30.89 Active 02/06/2015 Unknown Encounter for immunization ICD-9: V03.82 ICD-10: Z23 Active 08/27/2016 Unknown Acute laryngopharyngitis ICD-9: 465.9 ICD-10: J06.0 Active 03/05/2015 Unknown Pain in left hip ICD-9 : 719.45 ICD-10: M25.552 Active 05/14/2016 Unknown Fracture of unspecified parts of lumbosacral spine and pelvis, initial encounter for closed fracture ICD-9: 808.8 ICD-10: S32.9XXA Active 04/22/2016 Unknown Encounter for screening mammogram for malignant neoplasm of breast ICD-9: V76.12 ICD-10: Z12.31 Active 02/28/2016 Unknown Dysuria ICD-9: 788.1 ICD-10: R30.0 Active 02/18/2016 Unknown Left lower quadrant pain ICD-9: 789.04 ICD-10: R10.32 Active 02/18/2016 Unknown ACUTE URI ICD-9: 465.9 Active 03/05/2015 Unknown Hypertension Unknown Active 02/07/2015 Unknown ALLERGIC RHINITIS ICD- 9: 477.9 Active 02/06/2015 Unknown COPD (chronic obstructive pulmonary disease) ICD-9: 496 Active 02/06/2015 Unknown ESOPHAGEAL REFLUX ICD- 9: 530.81 Active 02/06/2015 Unknown ESSENTIAL HYPERTENSION ICD-9: 401.9 Active 02/06/2015 Unknown Problems Condition Codes Effective Dates Condition Status Dependence on supplemental oxygen ICD-9: V46.2 ICD-10: Z99.81 10/16/2017 Active Effusion, left knee ICD-9: 719.06 ICD-10: M25.462 06/16/2017 Active Essential (primary) hypertension ICD-9: 401.1 ICD-10: I10 01/14/2017 Active Hypoxemia ICD-9: 799.02 ICD-10: R09.02 10/16/2017 Active Other emphysema ICD-9 : 492.8 ICD-10: J43.8 07/31/2017 Active Pain in left knee ICD- 9: 719.46 ICD-10: M25.562 06/16/2017 Active Pain in thoracic spine ICD-9: 724.1 ICD-10: M54.6 09/03/2017 Active Abnormal levels of other serum enzymes ICD-9: 790.5 ICD-10: R74.8 07/18/2017 Active Calculus of gallbladder without cholecystitis without obstruction ICD-9: 574.20 ICD-10: K80.20 07/18/2017 Active Unsteadiness on feet ICD-9: 781.2 ICD-10: R26.81 05/28/2017 Active Chronic obstructive pulmonary disease with acute lower respiratory infection ICD-9: 491.22 ICD-10: J44.0 05/05/2017 Active Major depressive disorder, recurrent, mild ICD-9: 296.31 ICD-10: F33.0 07/16/2016 Active Chronic obstructive pulmonary disease, unspecified ICD-9: 496 ICD-10: J44.9 01/01/2017 Active Gastro-esophageal reflux disease without esophagitis ICD-9: 530.81 ICD-10: K21.9 02/06/2015 Active Dehydration ICD-9: 276.51 ICD-10: E86.0 01/07/2017 Active Headache ICD-9: 784.0 ICD-10: R51 12/11/2016 Active Other fatigue ICD-9: 780.79 ICD-10: R53.83 12/11/2016 Active Other malaise ICD-9: 780.79 ICD-10: R53.81 01/07/2017 Active Palpitations ICD-9: 785.1 ICD-10: R00.2 01/07/2017 Active Essential (primary) hypertension ICD-9: 401.9 ICD-10: I10 02/06/2015 Active Encounter for general adult medical examination with abnormal findings ICD-9: V70.0 ICD-10: Z00.01 12/12/2016 Active Other allergic rhinitis ICD-9: 477.9 ICD-10: J30.89 02/06/2015 Active Encounter for immunization ICD-9: V03.82 ICD-10: Z23 08/27/2016 Active Acute laryngopharyngitis ICD-9: 465.9 ICD-10: J06.0 03/05/2015 Active Pain in left hip ICD-9 : 719.45 ICD-10: M25.552 05/14/2016 Active Fracture of unspecified parts of lumbosacral spine and pelvis, initial encounter for closed fracture ICD-9: 808.8 ICD-10: S32.9XXA 04/22/2016 Active Encounter for screening mammogram for malignant neoplasm of breast ICD-9: V76.12 ICD-10: Z12.31 02/28/2016 Active Dysuria ICD-9: 788.1 ICD-10: R30.0 02/18/2016 Active Left lower quadrant pain ICD-9: 789.04 ICD-10: R10.32 02/18/2016 Active ACUTE URI ICD-9: 465.9 03/05/2015 Active Hypertension Unknown 02/07/2015 Active ALLERGIC RHINITIS ICD- 9: 477.9 02/06/2015 Active COPD (chronic obstructive pulmonary disease) ICD-9: 496 02/06/2015 Active ESOPHAGEAL REFLUX ICD- 9: 530.81 02/06/2015 Active ESSENTIAL HYPERTENSION ICD-9: 401.9 02/06/2015 Active Medications Medication Codes Instructions Start Date Stop Date Status Fill Instructions Keflex 500 mg capsule RxNorm: 662664 1 Capsule(s) PO TID 201710/29/2017 Active Kenalog 40 mg/mL suspension for injection RxNorm: 7908056 1 Milliliter(s) Inj 10/16/2017 10/16/2017 Inactive ibuprofen 800 mg tablet RxNorm: 032041 TAKE 1 TABLET THREE TIMES DAILY 10/15/2017 01/07/2019 Active Lexapro 10 mg tablet RxNorm: 988626 TAKE 1 TABLET EVERY DAY 10/09/2018 Active hydrocodone 5 mg-acetaminophen 325 mg tablet RxNorm: 104976 1 Tablet(s) PO QID as needed 09/03/2017 No Stop Date Active omeprazole 20 mg capsule,delayed release RxNorm: 327667 1 Capsule(s) PO BID 09/02/2017 08/27/2018 Active alprazolam 1 mg tablet RxNorm: 904609 1 Tablet(s) PO TID 201605/27/2018 Active metoprolol tartrate 50 mg tablet RxNorm: 029385 1/2 Tablet(s) PO BID 06/26/2017 06/20/2018 Active omeprazole 20 mg capsule,delayed release RxNorm: 666922 1 Capsule(s) PO BID 06/05/2017 09/01/2017 Inactive omeprazole 20 mg capsule,delayed release RxNorm: 252593 1 Capsule(s) PO BID 05/28/2017 06/04/2017 Inactive omeprazole 20 mg capsule,delayed release RxNorm: 010869 1 Capsule(s) PO QPM 05/27/2017 05/27/2017 Inactive Breo Ellipta 100 mcg-25 mcg/dose powder for inhalation RxNorm: 2479622 1 INH daily 05/05/2017 04/29/2018 Active losartan 100 mg tablet RxNorm: 351971 1 Tablet(s) PO QPM 201602/04/2018 Active alprazolam 1 mg tablet RxNorm: 368513 1 Tablet(s) PO TID 201608/07/2017 Inactive metoprolol tartrate 50 mg tablet RxNorm: 184653 1/2 Tablet(s) PO BID 02/10/2017 06/25/2017 Inactive losartan 50 mg tablet RxNorm: 370206 2 Tablet(s) PO QPM 201602/09/2017 Inactive Diflucan 150 mg tablet RxNorm: 239705 1 Tablet(s) PO daily 01/22/2017 Inactive please call pt to let herknow when to pick- up the med Diflucan 150 mg tablet RxNorm: 889666 1 Tablet(s) PO daily 01/19/2017 Inactive please call pt to let herknow when to pick- up the med losartan 50 mg tablet RxNorm: 199607 1 Tablet(s) PO QPM 201601/22/2017 Inactive Cipro 500 mg tablet RxNorm: 847419 1 Tablet(s) PO BID 201601/17/2017 Inactive Cipro 500 mg tablet RxNorm: 075712 1 Tablet(s) PO BID 201601/07/2017 Inactive Lexapro 10 mg tablet RxNorm: 947864 TAKE 1 TABLET EVERY DAY 10/14/2017 Inactive metoprolol tartrate 50 mg tablet RxNorm: 653645 1 Tablet(s) PO in the morning and 1.5 pill at night 12/11/2016 01/13/2017 Inactive spironolactone 25 mg tablet RxNorm: 409916 TAKE 1 TABLET EVERY DAY 11/04/2016 07/31/2017 Inactive metoprolol tartrate 50 mg tablet RxNorm: 571654 TAKE 1 TABLET TWICE DAILY 10/29/2016 12/10/2016 Inactive ibuprofen 800 mg tablet RxNorm: 516182 TAKE 1 TABLET THREE TIMES DAILY 10/21/2016 10/14/2017 Inactive Astepro 0.15 % (205.5 mcg) nasal spray RxNorm: 4717848 1 [facility] NASAL BID 10/15/2016 10/09/2017 Inactive Astepro 0.15 % (205.5 mcg) nasal spray RxNorm: 8314678 1 [facility] NASAL BID 10/15/2016 10/14/2016 Inactive Astepro 0.15 % (205.5 mcg) nasal spray RxNorm: 9638323 1 [facility] NASAL BID 10/15/2016 10/14/2016 Inactive omeprazole 20 mg capsule,delayed release RxNorm: 096610 1 Capsule(s) PO QPM 10/15/2016 05/26/2017 Inactive omeprazole 20 mg capsule,delayed release RxNorm: 051096 1 Capsule(s) QPM 10/15/2016 10/14/2016 Inactive omeprazole 20 mg capsule,delayed release RxNorm: 849283 TAKE 1 CAPSULE TWICE DAILY 09/02/2016 10/14/2016 Inactive Lexapro 10 mg tablet RxNorm: 741392 TAKE 1 TABLET EVERY DAY 12/19/2016 Inactive calcitonin (salmon) 200 unit/actuation nasal spray RxNorm: 366480 1 [facility] NASAL daily ONE SPRAY PER ONE NOSTRIL DAILY- ALTERNATE NOSTRILS DAILY 05/31/2016 05/30/2016 Inactive She will do this for 3 months- If she wants to do a 3 month supply at one time she can without refill calcitonin (salmon) 200 unit/actuation nasal spray RxNorm: 918001 1 [facility] NASAL daily ONE SPRAY PER ONE NOSTRIL DAILY- ALTERNATE NOSTRILS DAILY 05/31/2016 07/30/2016 Inactive x3 months- no refills Forteo 20 mcg/dose (600 mcg/2.4 mL) subcutaneous pen injector RxNorm: 7477967 1 injection SQ daily 05/22/20162015 Inactive call pt with jaramillo first Forteo 20 mcg/dose (600 mcg/2.4 mL) subcutaneous pen injector RxNorm: 5757319 1 injection SQ daily 05/22/20162015 Inactive Prolia 60 mg/mL subcutaneous syringe RxNorm: 174727 1 Milliliter(s) SQ every 6 months 05/13/2016 No Stop Date Active Please check jaramillo through insurance and let me know- Thanks! Mary Ellen alprazolam 1 mg tablet RxNorm: 128645 1 Tablet(s) PO TID 201511/01/2016 Inactive Lexapro 10 mg tablet RxNorm: 401875 TAKE 1 TABLET EVERY DAY 08/20/2016 Inactive spironolactone 25 mg tablet RxNorm: 855156 TAKE 1 TABLET EVERY DAY 04/22/2016 11/03/2016 Inactive Diflucan 150 mg tablet RxNorm: 231438 1 Tablet(s) PO daily 04/14/2016 Inactive Diflucan 150 mg tablet RxNorm: 839480 1 Tablet(s) PO daily 03/19/2016 Inactive Augmentin 500 mg-125 mg tablet RxNorm: 130783 1 Tablet(s) PO TID 03/14/2016 03/23/2016 Inactive omeprazole 20 mg capsule,delayed release RxNorm: 283958 1 Tablet(s) PO BID 03/06/2016 09/01/2016 Inactive [SAVINGS FOR NON-COVERED DRUGS -- BIN:140944, PCN: ASPROD1, Group: XXXXX, ID# XXXXXXX, Questions: . THIS IS NOT INSURANCE.] amlodipine 5 mg tablet RxNorm: 143235 TAKE 1 TABLET EVERY DAY 03/01/2016 04/22/2016 Inactive omeprazole 20 mg tablet,delayed release RxNorm: 042910 1 Tablet(s) PO BID 02/27/2016 03/05/2016 Inactive [SAVINGS FOR NON-COVERED DRUGS -- BIN:365507, PCN: ASPROD1, Group: XXXXX, ID# XXXXXXX, Questions: . THIS IS NOT INSURANCE.] spironolactone 25 mg tablet RxNorm: 549128 TAKE 1 TABLET EVERY DAY 12/21/2015 04/21/2016 Inactive Lexapro 10 mg tablet RxNorm: 024160 1 Tablet(s) PO daily 201501/01/2016 Inactive Lexapro 10 mg tablet RxNorm: 154741 1 Tablet(s) PO daily 201502/09/2017 Inactive Lexapro 10 mg tablet RxNorm: 486691 1 Tablet(s) PO daily 201512/18/2015 Inactive alprazolam 1 mg tablet RxNorm: 469277 1 Tablet(s) PO TID 201502/28/2016 Inactive ibuprofen 800 mg tablet RxNorm: 085346 1 Tablet(s) PO TID 10/2610/20/2016 Inactive alprazolam 1 mg tablet RxNorm: 441016 1 Tablet(s) PO TID 201411/19/2015 Inactive spironolactone 25 mg tablet RxNorm: 731392 1 Tablet(s) PO daily 08/21/2015 12/20/2015 Inactive metoprolol tartrate 50 mg tablet RxNorm: 797386 1 Tablet(s) PO BID 08/10/2015 08/03/2016 Inactive [SAVINGS FOR NON-COVERED DRUGS -- BIN:459125, PCN: ASPROD1, Group : XXXXX, ID# XXXXXXX, Questions: . THIS IS NOT INSURANCE.] omeprazole 20 mg tablet,delayed release RxNorm: 778925 1 Tablet(s) PO BID 08/07/2015 02/02/2016 Inactive [SAVINGS FOR NON-COVERED DRUGS -- BIN:099099, PCN: ASPROD1, Group: XXXXX, ID# XXXXXXX, Questions: . THIS IS NOT INSURANCE.] Keflex 500 mg capsule RxNorm: 859100 1 Capsule(s) PO TID 201407/16/2015 Inactive alprazolam 1 mg tablet RxNorm: 144702 1 Tablet(s) PO TID 201408/22/2015 Inactive alprazolam 1 mg tablet RxNorm: 152195 1 Tablet(s) PO TID 201406/01/2015 Inactive amlodipine 5 mg tablet RxNorm: 567938 1 Tablet(s) PO daily 04/201502/29/2016 Inactive Nasonex 50 mcg/actuation [facility] RxNorm: 522068 1 [facility] NASAL daily 03/03/2015 03/02/2015 Inactive Keflex 500 mg capsule RxNorm: 196368 1 Capsule(s) PO TID 201403/02/2015 Inactive Nasonex 50 mcg/actuation [facility] RxNorm: 959850 1 [facility] NASAL daily 03/03/2015 05/01/2015 Inactive Keflex 500 mg capsule RxNorm: 141185 1 Capsule(s) PO TID 201403/05/2015 Inactive Carafate 1 gram tablet RxNorm: 405696 TAKE 1 TABLET FOUR TIMES DAILY 30 MINUTES BEFORE MEALS AND AT BEDTIME 02/28/2015 Inactive Kenalog 40 mg/mL suspension for injection RxNorm: 1155286 Milliliter(s) Inj 02/07/2015 02/07/2015 Inactive [SAVINGS FOR NON-COVERED DRUGS -- BIN:113283, PCN: ASPROD1, Group: XXXXX, ID# XXXXXXX, Questions: . THIS IS NOT INSURANCE.] metoprolol tartrate 50 mg tablet RxNorm: 309825 1 Tablet(s) PO BID 02/07/2015 08/09/2015 Inactive [SAVINGS FOR NON-COVERED DRUGS -- BIN:787978, PCN: ASPROD1, Group : XXXXX, ID# XXXXXXX, Questions: . THIS IS NOT INSURANCE.] Carafate 1 gram tablet RxNorm: 330167 1 Tablet(s) PO QID 201402/27/2015 Inactive 30 min before meals and at bedtime omeprazole 20 mg tablet,delayed release RxNorm: 573905 1 Tablet(s) PO BID 02/07/2015 08/05/2015 Inactive [SAVINGS FOR NON-COVERED DRUGS -- BIN:152393, PCN: ASPROD1, Group: XXXXX, ID# XXXXXXX, Questions: . THIS IS NOT INSURANCE.] Vitamin D3 2,000 unit tablet RxNorm: 176586 1 Tablet(s) PO daily No Start Date Active aspirin 81 mg tablet RxNorm: 680002 1 Tablet(s) PO daily No Start Date Active loratadine 10 mg tablet RxNorm: 044684 1 Tablet(s) PO daily No Start Date Active amlodipine 2.5 mg tablet RxNorm: 771402 1 Tablet(s) PO daily No Start Date 03/05/2015 Inactive spironolactone 25 mg tablet RxNorm: 433223 1 Tablet(s) PO daily No Start Date 08/20/2015 Inactive cetirizine 10 mg tablet RxNorm: 0759152 1 Tablet(s) PO daily No Start Date 12/18/2015 Inactive metoprolol tartrate 50 mg tablet RxNorm: 372232 1 Tablet(s) PO daily No Start Date 02/06/2015 Inactive ipratropium bromide 0.06 % nasal spray RxNorm: 827882 nasal No Start Date 12/18/2015 Inactive alprazolam 1 mg tablet RxNorm: 066543 1 Tablet(s) PO TID No Start Date 03/28/2015 Inactive Prolia 60 mg/mL subcutaneous syringe RxNorm: 987802 1 Milliliter(s) SQ every 6 months No Start Date 05/12/2016 Inactive Please check jaramillo through insurance and let me know- Thanks! Mary Ellen ibuprofen 800 mg tablet RxNorm: 737251 1 Tablet(s) PO TID No Start Date 10/25/2015 Inactive Protonix 40 mg tablet,delayed release RxNorm: 297723 1 Tablet(s) PO daily No Start Date 03/05/2015 Inactive Medication Administered Medication Codes Instructions Start Date Status Kenalog 40 mg/mL suspension for injection RxNorm: 3842320 1Milliliter 10/16/2017 No longer Active Kenalog 40 mg/mL suspension for injection RxNorm: 1396803 Milliliter 02/07/2015 No longer Active Immunizations Vaccine Codes Date Status Pneumococcal (Adult) CVX: 33 08/28/2016 completed Assessments Condition Codes Effective Dates Pain in left knee ICD-10: M25.562 ICD-9: 719.46 10/16/2017 Effusion, left knee ICD-10: M25.462 ICD-9: 719.06 10/16/2017 Dependence on supplemental oxygen ICD-10: Z99.81 ICD-9: V46.2 10/16/2017 Hypoxemia ICD-10: R09.02 ICD-9: 799.02 10/16/2017 Other emphysema ICD-10: J43.8 ICD-9: 492.8 10/16/2017 Essential (primary) hypertension ICD-10: I10 ICD-9: 401.1 10/16/2017 Pain in thoracic spine ICD-10: M54.6 ICD-9: 724.1 09/03/2017 Abnormal levels of other serum enzymes ICD-10: R74.8 ICD-9: 790.5 08/11/2017 Calculus of gallbladder without cholecystitis without obstruction ICD-10: K80.20 ICD-9: 574.20 07/18/2017 Unsteadiness on feet ICD-10: R26.81 ICD-9: 781.2 05/28/2017 Chronic obstructive pulmonary disease with acute lower respiratory infection ICD-10: J44.0 ICD-9: 491.22 05/05/2017 Major depressive disorder, recurrent, 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 ICD-9: 296.31 03/13/2017 Chronic obstructive pulmonary disease, unspecified ICD-10: J44.9 ICD-9: 496 02/10/2017 Gastro-esophageal reflux disease without esophagitis ICD-10 : K21.9 ICD-9: 530.81 02/10/2017 Dehydration ICD-10: E86.0 ICD-9: 276.51 01/07/2017 Palpitations ICD-10: R00.2 ICD-9: 785.1 01/07/2017 Other fatigue ICD-10: R53.83 ICD-9: 780.79 01/07/2017 Other malaise ICD-10: R53.81 ICD-9: 780.79 01/07/2017 Headache ICD-10: R51 ICD-9: 784.0 01/07/2017 Essential (primary) hypertension ICD-10: I10 ICD-9: 401.9 01/02/2017 Encounter for general adult medical examination with abnormal findings ICD-10: Z00.01 ICD-9: V70.0 12/12/2016 Other allergic rhinitis ICD-10: J30.89 ICD-9: 477.9 10/15/2016 Encounter for immunization ICD-10: Z23 ICD-9: V03.82 08/28/2016 Acute laryngopharyngitis ICD-10: J06.0 ICD-9: 465.9 05/15/2016 Pain in left hip ICD-10: M25.552 ICD-9: 719.45 05/15/2016 Fracture of unspecified parts of lumbosacral spine and pelvis, initial encounter for closed fracture ICD-10: S32.9XXA ICD-9: 808.8 04/23/2016 Encounter for screening mammogram for malignant neoplasm of breast ICD-10: Z12.31 ICD-9: V76.12 02/29/2016 Dysuria ICD-10: R30.0 ICD-9: 788.1 02/19/2016 Left lower quadrant pain ICD-10: R10.32 ICD-9: 789.04 02/19/2016 ACUTE URI ICD-9: 465.9 03/06/2015 ESSENTIAL HYPERTENSION ICD-9: 401.9 03/06 ALLERGIC RHINITIS ICD-9: 477.9 2014 ESOPHAGEAL REFLUX ICD-9: 530.81 2014 COPD (chronic obstructive pulmonary disease) ICD-9: 496 02/07/2015 Reason For Visit Reason For Visit Effective Dates Notes Hospital Follow Up 10/16/2017 back pain 09/03/2017 Hospital Follow Up 07/31/2017 knee pain 06/16/2017 left hypertension 05/28/2017 sinus congestion 05/05/2017 hypertension 03/13/2017 hypertension 02/10/2017 hypertension 01/14/2017 fatigue 01/07/2017 shortness of breath 01/01/2017 Annual Medicare Wellness Exam 12/12/2016 headache 12/11/2016 hypertension 10/15/2016 vaccination against pneumonia 08/28/2016 hypertension 07/17/2016 cough 05/15/2016 hip pain 04/23/2016 cough 03/14/2016 flank pain 02/19/2016 hypertension 12/19/2015 hypertension 03/06/2015 gastroesophageal reflux 02/07/2015 Results Observation Observation Code Item Item Code Result Date Comp Metabolic Amd629 NA 138 mEq/L 09/03/2017 Comp Metabolic Vru858 K 3.9 mEq/L 09/03/2017 Comp Metabolic Fbd903 CL 102 mEq/L 09/03/2017 Comp Metabolic Guv502 CO2 32.0 mEq/L 09/03/2017 Comp Metabolic Jyg711 ANION GAP 8 09/03/2017 Comp Metabolic Zap257 GLUCOSE 89 mg/dL 09/03/2017 Comp Metabolic Rrn217 Creat 0.6 mg/dL 09/03/2017 Comp Metabolic Fss216 eGFR 103 ml/min/1.73m2 09/03/2017 Comp Metabolic Atf077 BUN 10 mg/dL 09/03/2017 Comp Metabolic Hcp162 B/C Ratio 16.7 Ratio 09/03/2017 Comp Metabolic Bvx985 CALCIUM 8.9 mg/dL 09/03/2017 Comp Metabolic Ibk373 ALK PHOS 141 U/L 09/03/2017 Comp Metabolic Zdv836 AST(SGOT) 12 U/L 09/03/2017 Comp Metabolic Wys364 ALT(SGPT) 7 U/L 09/03/2017 Comp Metabolic App079 BILI T 0.6 mg/dL 09/03/2017 Comp Metabolic Gyd715 ALBUMIN 3.6 g/dL 09/03/2017 Comp Metabolic Kvb409 TPRO 6.6 g/dL 09/03/2017 Comp Metabolic Fzc198 GLOB 3.0 g/dL 09/03/2017 Comp Metabolic Mgh254 A/G Ratio 1.2 Ratio 09/03/2017 Comp Metabolic Tsz591 Osmo 274 mOsmo 09/03/2017 Hepatic Fhk371 ALBUMIN 3.7 g/dL 08/11/2017 Hepatic Ewv417 TPRO 7.0 g/dL 08/11/2017 Hepatic Gbf547 GLOB 3.3 g/dL 08/11/2017 Hepatic Xev595 A/G Ratio 1.1 Ratio 08/11/2017 Hepatic Vea199 ALK PHOS 85 U/L 08/11/2017 Hepatic Nyx440 ALT(SGPT) 11 U/L 08/11/2017 Hepatic Jbt993 AST(SGOT) 16 U/L 08/11/2017 Hepatic Esz044 BILI T 0.6 mg/dL 08/11/2017 Hepatic Aqa958 BILI D 0.1 mg/dL 08/11/2017 Hepatic Uzg985 BILI I 0.5 mg/dL 08/11/2017 Hepatic Akp890 ALBUMIN 3.1 g/dL 07/18/2017 Hepatic Tbt960 TPRO 5.9 g/dL 07/18/2017 Hepatic Rah942 GLOB 2.8 g/dL 07/18/2017 Hepatic Cax486 A/G Ratio 1.1 Ratio 07/18/2017 Hepatic Bzk065 ALK PHOS 123 U/L 07/18/2017 Hepatic Nyh939 ALT(SGPT) 210 U/L 07/18/2017 Hepatic Luc785 AST(SGOT) 71 U/L 07/18/2017 Hepatic Xag546 BILI T 1.1 mg/dL 07/18/2017 Hepatic Dlc073 BILI D 0.4 mg/dL 07/18/2017 Hepatic Rup741 BILI I 0.7 mg/dL 07/18/2017 Cbc With Differential Ord2 WBC 4.97 K/ul 02/25/2017 Cbc With Differential Ord2 RBC 3.64 M/ul 02/25/2017 Cbc With Differential Ord2 HGB 11.8 g/dl 02/25/2017 Cbc With Differential Ord2 Neut% 59.9 % 02/25/2017 Cbc With Differential Ord2 HCT 36.5 % 02/25/2017 Cbc With Differential Ord2 Lymph% 24.5 % 02/25/2017 Cbc With Differential Ord2 MCV 100.3 fl 02/25/2017 Cbc With Differential Ord2 MCH 32.4 pg 02/25/2017 Cbc With Differential Ord2 Ashe% 7.6 % 02/25/2017 Cbc With Differential Ord2 MCHC 32.3 pg 02/25/2017 Cbc With Differential Ord2 Eos% 7.4 % 02/25/2017 Cbc With Differential Ord2 PLT 145 K/ul 02/25/2017 Cbc With Differential Ord2 Baso% 0.6 % 02/25/2017 Cbc With Differential Ord2 Neut ABS# 2.97 K/ul 02/25/2017 Cbc With Differential Ord2 RDW 12.6 % 02/25/2017 Cbc With Differential Ord2 Lymph ABS# 1.22 K/ul 02/25/2017 Cbc With Differential Ord2 [place] ABS# 0.4 K/ul 02/25/2017 Cbc With Differential Ord2 Eos ABS# 0.4 K/ul 02/25/2017 Cbc With Differential Ord2 Baso ABS# 0.0 K/ul 02/25/2017 Cbc With Differential Ord2 WBC 4.60 K/ul 01/02/2017 Cbc With Differential Ord2 RBC 4.00 M/ul 01/02/2017 Cbc With Differential Ord2 HGB 12.9 g/dl 01/02/2017 Cbc With Differential Ord2 Neut% 65.9 % 01/02/2017 Cbc With Differential Ord2 HCT 39.2 % 01/02/2017 Cbc With Differential Ord2 Lymph% 19.6 % 01/02/2017 Cbc With Differential Ord2 MCV 98.0 fl 01/02/2017 Cbc With Differential Ord2 [place]% 7.8 % 01/02/2017 Cbc With Differential Ord2 MCH 32.3 pg 01/02/2017 Cbc With Differential Ord2 Eos% 6.5 % 01/02/2017 Cbc With Differential Ord2 MCHC 32.9 pg 01/02/2017 Cbc With Differential Ord2 Baso% 0.2 % 01/02/2017 Cbc With Differential Ord2 PLT 168 K/ul 01/02/2017 Cbc With Differential Ord2 RDW 12.8 % 01/02/2017 Cbc With Differential Ord2 Neut ABS# 3.03 K/ul 01/02/2017 Cbc With Differential Ord2 Lymph ABS# 0.90 K/ul 01/02/2017 Cbc With Differential Ord2 [place] ABS# 0.4 K/ul 01/02/2017 Cbc With Differential Ord2 Eos ABS# 0.3 K/ul 01/02/2017 Cbc With Differential Ord2 Baso ABS# 0.0 K/ul 01/02/2017 Lipid Ord30 CHOL 139 mg/dL 12/13/2016 Lipid Ord30 HDL 48.0 mg/dl 12/13/2016 Lipid Ord30 TRIG 84 mg/dL 12/13/2016 Lipid Ord30 LDL 74 mg/dL 12/13/2016 Lipid Ord30 C/HDL 2.9 Ratio 12/13/2016 Comp Metabolic Hcs961 NA 137 mEq/L 12/13/2016 Comp Metabolic Cvy329 K 4.8 mEq/L 12/13/2016 Comp Metabolic Mfh218 CL 101 mEq/L 12/13/2016 Comp Metabolic Snc340 CO2 32.0 mEq/L 12/13/2016 Comp Metabolic Weo270 ANION GAP 9 12/13/2016 Comp Metabolic Ahc481 GLUCOSE 95 mg/dL 12/13/2016 Comp Metabolic Gzd935 Creat 0.8 mg/dL 12/13/2016 Comp Metabolic Zie234 eGFR 79 ml/min/1.73m2 12/13/2016 Comp Metabolic Nzc135 BUN 15 mg/dL 12/13/2016 Comp Metabolic Hox398 B/C Ratio 19.7 Ratio 12/13/2016 Comp Metabolic Lst637 CALCIUM 9.3 mg/dL 12/13/2016 Comp Metabolic Bja194 ALK PHOS 63 U/L 12/13/2016 Comp Metabolic Cac637 AST(SGOT) 15 U/L 12/13/2016 Comp Metabolic Mfg854 ALT(SGPT) 10 U/L 12/13/2016 Comp Metabolic Bdw426 BILI T 0.7 mg/dL 12/13/2016 Comp Metabolic Fft854 ALBUMIN 3.7 g/dL 12/13/2016 Comp Metabolic Jth645 TPRO 6.8 g/dL 12/13/2016 Comp Metabolic Rfm099 GLOB 3.2 g/dL 12/13/2016 Comp Metabolic Mah802 A/G Ratio 1.2 Ratio 12/13/2016 Comp Metabolic Jmt476 Osmo 274 mOsmo 12/13/2016 Cbc With Differential Ord2 WBC 4.16 K/ul 12/13/2016 Cbc With Differential Ord2 RBC 4.26 M/ul 12/13/2016 Cbc With Differential Ord2 HGB 13.6 g/dl 12/13/2016 Cbc With Differential Ord2 Neut% 50.0 % 12/13/2016 Cbc With Differential Ord2 HCT 41.5 % 12/13/2016 Cbc With Differential Ord2 Lymph% 28.1 % 12/13/2016 Cbc With Differential Ord2 MCV 97.4 fl 12/13/2016 Cbc With Differential Ord2 Ashe% 9.9 % 12/13/2016 Cbc With Differential Ord2 MCH 31.9 pg 12/13/2016 Cbc With Differential Ord2 MCHC 32.8 pg 12/13/2016 Cbc With Differential Ord2 Eos% 11.5 % 12/13/2016 Cbc With Differential Ord2 PLT 192 K/ul 12/13/2016 Cbc With Differential Ord2 Baso% 0.5 % 12/13/2016 Cbc With Differential Ord2 RDW 13.1 % 12/13/2016 Cbc With Differential Ord2 Neut ABS# 2.08 K/ul 12/13/2016 Cbc With Differential Ord2 Lymph ABS# 1.17 K/ul 12/13/2016 Cbc With Differential Ord2 Ashe ABS# 0.4 K/ul 12/13/2016 Cbc With Differential Ord2 Eos ABS# 0.5 K/ul 12/13/2016 Cbc With Differential Ord2 Baso ABS# 0.0 K/ul 12/13/2016 Tsh Ord6 hTSH II 1.19 uIU/mL 12/13/2016 Tsh Ord6 hTSH II 1.12 uIU/mL 12/19/2015 Cbc With Differential Ord2 WBC 5.72 K/ul 12/19/2015 Cbc With Differential Ord2 RBC 4.48 M/ul 12/19/2015 Cbc With Differential Ord2 HGB 14.4 g/dl 12/19/2015 Cbc With Differential Ord2 Neut% 63.9 % 12/19/2015 Cbc With Differential Ord2 HCT 43.6 % 12/19/2015 Cbc With Differential Ord2 Lymph% 26.7 % 12/19/2015 Cbc With Differential Ord2 MCV 97.3 fl 12/19/2015 Cbc With Differential Ord2 Ashe% 5.9 % 12/19/2015 Cbc With Differential Ord2 MCH 32.1 pg 12/19/2015 Cbc With Differential Ord2 MCHC 33.0 pg 12/19/2015 Cbc With Differential Ord2 Eos% 3.3 % 12/19/2015 Cbc With Differential Ord2 PLT 199 K/ul 12/19/2015 Cbc With Differential Ord2 Baso% 0.2 % 12/19/2015 Cbc With Differential Ord2 RDW 13.5 % 12/19/2015 Cbc With Differential Ord2 Neut ABS# 3.65 K/ul 12/19/2015 Cbc With Differential Ord2 Lymph ABS# 1.53 K/ul 12/19/2015 Cbc With Differential Ord2 Ashe ABS# 0.3 K/ul 12/19/2015 Cbc With Differential Ord2 Eos ABS# 0.2 K/ul 12/19/2015 Cbc With Differential Ord2 Baso ABS# 0.0 K/ul 12/19/2015 Cbc With Differential Ord2 New Analyzer Notice Please note new ref ranges starting 10-11-2015 due to implemntation of new five part differential hematolgy analyzer. 12/19/2015 Lipid Ord30 CHOL 151 mg/dL 12/19/2015 Lipid Ord30 HDL 54.0 mg/dl 12/19/2015 Lipid Ord30 TRIG 65 mg/dL 12/19/2015 Lipid Ord30 LDL 84 mg/dL 12/19/2015 Lipid Ord30 C/HDL 2.8 Ratio 12/19/2015 Comp Metabolic Gao260 NA 135 mEq/L 12/19/2015 Comp Metabolic Ufv425 K 4.1 mEq/L 12/19/2015 Comp Metabolic Vxg468 CL 99 mEq/L 12/19/2015 Comp Metabolic Ovj368 CO2 27.0 mEq/L 12/19/2015 Comp Metabolic Dtr479 ANION GAP 13 12/19/2015 Comp Metabolic Ikw788 GLUCOSE 83 mg/dL 12/19/2015 Comp Metabolic Jvh985 Creat 0.7 mg/dL 12/19/2015 Comp Metabolic Nla616 eGFR 88 ml/min/1.73m2 12/19/2015 Comp Metabolic Xqt290 BUN 12 mg/dL 12/19/2015 Comp Metabolic Fst495 B/C Ratio 17.4 Ratio 12/19/2015 Comp Metabolic Hdx593 CALCIUM 9.0 mg/dL 12/19/2015 Comp Metabolic Hix104 ALK PHOS 68 U/L 12/19/2015 Comp Metabolic Giu306 AST(SGOT) 16 U/L 12/19/2015 Comp Metabolic Nxa087 ALT(SGPT) 13 U/L 12/19/2015 Comp Metabolic Ssf118 BILI T 0.7 mg/dL 12/19/2015 Comp Metabolic Wcx186 ALBUMIN 4.0 g/dL 12/19/2015 Comp Metabolic Nfe762 TPRO 7.0 g/dL 12/19/2015 Comp Metabolic Itv937 GLOB 3.0 g/dL 12/19/2015 Comp Metabolic Ski159 A/G Ratio 1.3 Ratio 12/19/2015 Comp Metabolic Jdf476 Osmo 269 mOsmo 12/19/2015 Review of Systems System Result Effective Dates Constitutional No recent illness 2017 Constitutional fatigue 10/16/2017 Constitutional No fever 10/16/2017 Constitutional malaise 10/16/2017 Eyes No blindness 10/16/2017 Ears/Nose/Throat/Neck nasal allergies Ears/Nose/Throat/Neck No nasal discharge 10/16/2017 Cardiovascular No chest pain/pressure Respiratory No chest congestion 2017 Respiratory dyspnea on exertion 2017 Gastrointestinal No abdominal pain 2017 Musculoskeletal stiffness 10/16/2017 Musculoskeletal swelling 10/16/2017 Musculoskeletal No muscle weakness 2017 Musculoskeletal No myalgias 10/16/2017 Neurologic No alteration of consciousness 10/16/2017 Neurologic No mental status change 2017 Psychiatric No anxiety 10/16/2017 Psychiatric No depression 10/16/2017 Musculoskeletal back pain 10/16/2017 Musculoskeletal joint complaint 2017 Respiratory dyspnea 10/16/2017 Constitutional No recent illness 2016 Constitutional No chills 09/03/2017 Constitutional No fever 09/03/2017 Eyes No eye erythema 09/03/2017 Ears/Nose/Throat/Neck No nasal discharge 09/03/2017 Cardiovascular No chest pain/pressure 02/2017 Cardiovascular No dyspnea 09/03/2017 Respiratory No cough 09/03/2017 Respiratory No dyspnea 09/03/2017 Neurologic No alteration of consciousness 09/03/2017 Neurologic No mental status change 2016 Musculoskeletal back pain 09/03/2017 Constitutional No recent illness 2016 Constitutional No chills 07/31/2017 Constitutional fatigue 07/31/2017 Constitutional No fever 07/31/2017 Constitutional malaise 07/31/2017 Eyes No blindness 07/31/2017 Ears/Nose/Throat/Neck No dizziness 2016 Ears/Nose/Throat/Neck nasal allergies 10/2016 Ears/Nose/Throat/Neck No nasal discharge 07/31/2017 Cardiovascular No chest pain/pressure 10/2016 Cardiovascular No edema 07/31/2017 Cardiovascular No fatigue 07/31/2017 Respiratory No chest congestion 2016 Respiratory dyspnea on exertion 2016 Gastrointestinal No abdominal pain 2016 Musculoskeletal No stiffness 07/31/2017 Musculoskeletal No swelling 07/31/2017 Musculoskeletal No muscle weakness 2016 Musculoskeletal No myalgias 07/31/2017 Neurologic No alteration of consciousness 07/31/2017 Neurologic No mental status change 2016 Psychiatric No anxiety 07/31/2017 Psychiatric No depression 07/31/2017 Constitutional No recent illness 2016 Constitutional No anorexia 06/16/2017 Constitutional No night sweats 2016 Constitutional No chills 06/16/2017 Constitutional No diaphoresis 06/16/2017 Constitutional fatigue 06/16/2017 Constitutional No fever 06/16/2017 Constitutional No insomnia 06/16/2017 Constitutional No malaise 06/16/2017 Constitutional No weight loss 06/16/2017 Constitutional No weight gain 06/16/2017 Musculoskeletal joint complaint 2016 Musculoskeletal swelling 06/16/2017 Constitutional No recent illness 2016 Constitutional No chills 05/28/2017 Constitutional fatigue 05/28/2017 Constitutional No fever 05/28/2017 Constitutional malaise 05/28/2017 Eyes No blindness 05/28/2017 Ears/Nose/Throat/Neck No dizziness 2016 Ears/Nose/Throat/Neck nasal allergies Ears/Nose/Throat/Neck No nasal discharge 05/28/2017 Cardiovascular No chest pain/pressure Cardiovascular No edema 05/28/2017 Cardiovascular No fatigue 05/28/2017 Respiratory No chest congestion 2016 Respiratory dyspnea on exertion 2016 Gastrointestinal No abdominal pain 2016 Musculoskeletal No stiffness 05/28/2017 Musculoskeletal No swelling 05/28/2017 Musculoskeletal No muscle weakness 2016 Musculoskeletal No myalgias 05/28/2017 Neurologic No alteration of consciousness 05/28/2017 Neurologic No mental status change 2016 Psychiatric No anxiety 05/28/2017 Psychiatric No depression 05/28/2017 Dermatologic ecchymosis 05/28/2017 Constitutional No recent illness 2016 Constitutional fatigue 05/05/2017 Constitutional No fever 05/05/2017 Constitutional malaise 05/05/2017 Eyes No blindness 05/05/2017 Ears/Nose/Throat/Neck nasal allergies 03/2017 Ears/Nose/Throat/Neck No nasal discharge 05/05/2017 Cardiovascular No chest pain/pressure 03/2017 Respiratory No chest congestion 2016 Respiratory dyspnea on exertion 2016 Gastrointestinal No abdominal pain 2016 Neurologic No alteration of consciousness 05/05/2017 Neurologic No mental status change 2016 Psychiatric No anxiety 05/05/2017 Psychiatric No depression 05/05/2017 Musculoskeletal No stiffness 05/05/2017 Musculoskeletal No swelling 05/05/2017 Musculoskeletal No muscle weakness 2016 Musculoskeletal No myalgias 05/05/2017 Constitutional No recent illness 2016 Constitutional No chills 03/13/2017 Constitutional fatigue 03/13/2017 Constitutional No fever 03/13/2017 Constitutional malaise 03/13/2017 Eyes No blindness 03/13/2017 Ears/Nose/Throat/Neck No dizziness 2016 Ears/Nose/Throat/Neck nasal allergies Ears/Nose/Throat/Neck No nasal discharge 03/13/2017 Cardiovascular No chest pain/pressure Cardiovascular No edema 03/13/2017 Cardiovascular No fatigue 03/13/2017 Respiratory No chest congestion 2016 Respiratory dyspnea on exertion 2016 Gastrointestinal No abdominal pain 2016 Musculoskeletal No stiffness 03/13/2017 Musculoskeletal No swelling 03/13/2017 Musculoskeletal No muscle weakness 2016 Musculoskeletal No myalgias 03/13/2017 Neurologic No alteration of consciousness 03/13/2017 Neurologic No mental status change 2016 Psychiatric No anxiety 03/13/2017 Psychiatric No depression 03/13/2017 Constitutional No recent illness 2016 Constitutional No chills 02/10/2017 Constitutional fatigue 02/10/2017 Constitutional No fever 02/10/2017 Constitutional malaise 02/10/2017 Eyes No blindness 02/10/2017 Ears/Nose/Throat/Neck No dizziness 2016 Ears/Nose/Throat/Neck nasal allergies Ears/Nose/Throat/Neck No nasal discharge 02/10/2017 Cardiovascular No chest pain/pressure Cardiovascular No edema 02/10/2017 Cardiovascular No fatigue 02/10/2017 Respiratory No chest congestion 2016 Respiratory dyspnea on exertion 2016 Gastrointestinal No abdominal pain 2016 Musculoskeletal No stiffness 02/10/2017 Musculoskeletal No swelling 02/10/2017 Musculoskeletal No muscle weakness 2016 Musculoskeletal No myalgias 02/10/2017 Neurologic No alteration of consciousness 02/10/2017 Neurologic No mental status change 2016 Psychiatric No anxiety 02/10/2017 Psychiatric No depression 02/10/2017 Constitutional No recent illness 2016 Constitutional fatigue 01/14/2017 Constitutional No fever 01/14/2017 Constitutional malaise 01/14/2017 Eyes No blindness 01/14/2017 Ears/Nose/Throat/Neck nasal allergies Ears/Nose/Throat/Neck No nasal discharge 01/14/2017 Cardiovascular No chest pain/pressure Respiratory No chest congestion 2016 Respiratory dyspnea on exertion 2016 Gastrointestinal No abdominal pain 2016 Neurologic No alteration of consciousness 01/14/2017 Neurologic No mental status change 2016 Constitutional No chills 01/14/2017 Cardiovascular No edema 01/14/2017 Ears/Nose/Throat/Neck No dizziness 2016 Cardiovascular No fatigue 01/14/2017 Musculoskeletal No stiffness 01/14/2017 Musculoskeletal No swelling 01/14/2017 Musculoskeletal No muscle weakness 2016 Musculoskeletal No myalgias 01/14/2017 Psychiatric No anxiety 01/14/2017 Psychiatric No depression 01/14/2017 Constitutional recent illness 01/07/2017 Constitutional fatigue 01/07/2017 Constitutional No fever 01/07/2017 Constitutional malaise 01/07/2017 Eyes No eye erythema 01/07/2017 Ears/Nose/Throat/Neck nasal allergies 07/2017 Ears/Nose/Throat/Neck No nasal discharge 01/07/2017 Cardiovascular No chest pain/pressure 07/2017 Respiratory No chest congestion 2016 Respiratory dyspnea on exertion 2016 Gastrointestinal No abdominal pain 2016 Neurologic No alteration of consciousness 01/07/2017 Musculoskeletal joint complaint 2016 Cardiovascular palpitations 01/07/2017 Ears/Nose/Throat/Neck headache 2016 Constitutional No recent illness 2016 Constitutional fatigue 01/01/2017 Constitutional No fever 01/01/2017 Constitutional malaise 01/01/2017 Eyes No eye erythema 01/01/2017 Ears/Nose/Throat/Neck nasal allergies 01/2017 Ears/Nose/Throat/Neck No nasal discharge 01/01/2017 Cardiovascular No chest pain/pressure 01/2017 Respiratory dyspnea on exertion 2016 Respiratory No chest congestion 2016 Gastrointestinal No abdominal pain 2016 Neurologic No alteration of consciousness 01/01/2017 Neurologic No mental status change 2016 Constitutional No recent illness 2016 Constitutional No fever 12/12/2016 Eyes No eye erythema 12/12/2016 Ears/Nose/Throat/Neck No nasal allergies 12/12/2016 Ears/Nose/Throat/Neck No nasal discharge 12/12/2016 Cardiovascular No chest pain/pressure Cardiovascular No dyspnea 12/12/2016 Respiratory No dyspnea 12/12/2016 Gastrointestinal No nausea 12/12/2016 Gastrointestinal No vomiting 12/12/2016 Musculoskeletal No joint complaint 2016 Dermatologic No rash 12/12/2016 Neurologic No alteration of consciousness 12/12/2016 Neurologic No mental status change 2016 Constitutional recent illness 12/11/2016 Constitutional No chills 12/11/2016 Constitutional No fatigue 12/11/2016 Constitutional No fever 12/11/2016 Constitutional No insomnia 12/11/2016 Constitutional No malaise 12/11/2016 Eyes No blindness 12/11/2016 Eyes No vision change 12/11/2016 Ears/Nose/Throat/Neck No dental pain Ears/Nose/Throat/Neck No dizziness 2016 Ears/Nose/Throat/Neck No dysphagia 2016 Ears/Nose/Throat/Neck No headache 2016 Ears/Nose/Throat/Neck No hearing loss Ears/Nose/Throat/Neck nasal allergies Ears/Nose/Throat/Neck sore throat 2016 Ears/Nose/Throat/Neck No postnasal drip 12/11/2016 Ears/Nose/Throat/Neck No sinus congestion 12/11/2016 Cardiovascular No chest pain/pressure Cardiovascular No dyspnea 12/11/2016 Cardiovascular No edema 12/11/2016 Cardiovascular No exercise intolerance Cardiovascular No fatigue 12/11/2016 Cardiovascular No near-syncope/dizziness 12/11/2016 Respiratory No chest tightness 2016 Respiratory No cough 12/11/2016 Respiratory No dyspnea 12/11/2016 Respiratory No pedal edema 12/11/2016 Gastrointestinal No abdominal pain 2016 Gastrointestinal No constipation 2016 Gastrointestinal No diarrhea 12/11/2016 Gastrointestinal No gastroesophageal reflux 12/11/2016 Gastrointestinal No nausea 12/11/2016 Gastrointestinal No vomiting 12/11/2016 Genitourinary/Nephrology No dysuria 12/11 Genitourinary/Nephrology No nocturia Genitourinary/Nephrology No urinary incontinence 12/11/2016 Musculoskeletal No stiffness 12/11/2016 Musculoskeletal No swelling 12/11/2016 Musculoskeletal No muscle weakness 2016 Musculoskeletal No myalgias 12/11/2016 Dermatologic No rash 12/11/2016 Dermatologic No sores 12/11/2016 Dermatologic No scar 12/11/2016 Neurologic No dizziness 12/11/2016 Neurologic No headache 12/11/2016 Neurologic No neck pain 12/11/2016 Neurologic No syncope 12/11/2016 Psychiatric No anxiety 12/11/2016 Psychiatric No depression 12/11/2016 Constitutional recent illness 10/15/2016 Constitutional No chills 10/15/2016 Constitutional No fatigue 10/15/2016 Constitutional No fever 10/15/2016 Constitutional No insomnia 10/15/2016 Constitutional No malaise 10/15/2016 Eyes No blindness 10/15/2016 Eyes No vision change 10/15/2016 Ears/Nose/Throat/Neck No dental pain Ears/Nose/Throat/Neck No dizziness 2016 Ears/Nose/Throat/Neck No dysphagia 2016 Ears/Nose/Throat/Neck No headache 2016 Ears/Nose/Throat/Neck No hearing loss Ears/Nose/Throat/Neck nasal allergies Ears/Nose/Throat/Neck sore throat 2016 Ears/Nose/Throat/Neck No postnasal drip 10/15/2016 Ears/Nose/Throat/Neck No sinus congestion 10/15/2016 Cardiovascular No chest pain/pressure Cardiovascular No dyspnea 10/15/2016 Cardiovascular No edema 10/15/2016 Cardiovascular No exercise intolerance Cardiovascular No fatigue 10/15/2016 Cardiovascular No near-syncope/dizziness 10/15/2016 Respiratory No chest tightness 2016 Respiratory No cough 10/15/2016 Respiratory No dyspnea 10/15/2016 Respiratory No pedal edema 10/15/2016 Gastrointestinal No abdominal pain 2016 Gastrointestinal No constipation 2016 Gastrointestinal No diarrhea 10/15/2016 Gastrointestinal No gastroesophageal reflux 10/15/2016 Gastrointestinal No nausea 10/15/2016 Gastrointestinal No vomiting 10/15/2016 Genitourinary/Nephrology No dysuria 10/15 Genitourinary/Nephrology No nocturia Genitourinary/Nephrology No urinary incontinence 10/15/2016 Musculoskeletal No stiffness 10/15/2016 Musculoskeletal No swelling 10/15/2016 Musculoskeletal No muscle weakness 2016 Musculoskeletal No myalgias 10/15/2016 Dermatologic No rash 10/15/2016 Dermatologic No sores 10/15/2016 Dermatologic No scar 10/15/2016 Neurologic No dizziness 10/15/2016 Neurologic No headache 10/15/2016 Neurologic No neck pain 10/15/2016 Neurologic No syncope 10/15/2016 Psychiatric No anxiety 10/15/2016 Psychiatric No depression 10/15/2016 Constitutional recent illness 07/17/2016 Constitutional No chills 07/17/2016 Constitutional fatigue 07/17/2016 Constitutional No fever 07/17/2016 Constitutional No insomnia 07/17/2016 Cardiovascular No chest pain/pressure Cardiovascular No dyspnea 07/17/2016 Cardiovascular No edema 07/17/2016 Cardiovascular No exercise intolerance Cardiovascular No fatigue 07/17/2016 Cardiovascular No near-syncope/dizziness 07/17/2016 Respiratory No chest tightness 2015 Respiratory No cough 07/17/2016 Respiratory No dyspnea 07/17/2016 Respiratory No pedal edema 07/17/2016 Gastrointestinal No abdominal pain 2015 Gastrointestinal No constipation 2015 Gastrointestinal No diarrhea 07/17/2016 Gastrointestinal No gastroesophageal reflux 07/17/2016 Gastrointestinal No nausea 07/17/2016 Gastrointestinal No vomiting 07/17/2016 Musculoskeletal stiffness 07/17/2016 Musculoskeletal No swelling 07/17/2016 Musculoskeletal bone fracture 07/17/2016 Musculoskeletal bone pain 07/17/2016 Musculoskeletal joint complaint 2015 Musculoskeletal No muscle weakness 2015 Musculoskeletal No myalgias 07/17/2016 Neurologic No dizziness 07/17/2016 Neurologic No headache 07/17/2016 Neurologic No neck pain 07/17/2016 Neurologic No syncope 07/17/2016 Psychiatric anxiety 07/17/2016 Psychiatric depression 07/17/2016 Constitutional No malaise 07/17/2016 Constitutional recent illness 05/15/2016 Constitutional No chills 05/15/2016 Constitutional fatigue 05/15/2016 Constitutional No fever 05/15/2016 Constitutional No insomnia 05/15/2016 Constitutional malaise 05/15/2016 Cardiovascular No chest pain/pressure Cardiovascular No dyspnea 05/15/2016 Cardiovascular No edema 05/15/2016 Cardiovascular No exercise intolerance Cardiovascular No fatigue 05/15/2016 Cardiovascular No near-syncope/dizziness 05/15/2016 Respiratory No chest tightness 2015 Respiratory No cough 05/15/2016 Respiratory No dyspnea 05/15/2016 Respiratory No pedal edema 05/15/2016 Gastrointestinal No abdominal pain 2015 Gastrointestinal No constipation 2015 Gastrointestinal No diarrhea 05/15/2016 Gastrointestinal No gastroesophageal reflux 05/15/2016 Gastrointestinal No nausea 05/15/2016 Gastrointestinal No vomiting 05/15/2016 Musculoskeletal stiffness 05/15/2016 Musculoskeletal No swelling 05/15/2016 Musculoskeletal bone fracture 05/15/2016 Musculoskeletal bone pain 05/15/2016 Musculoskeletal joint complaint 2015 Musculoskeletal No muscle weakness 2015 Musculoskeletal No myalgias 05/15/2016 Neurologic No dizziness 05/15/2016 Neurologic No headache 05/15/2016 Neurologic No neck pain 05/15/2016 Neurologic No syncope 05/15/2016 Psychiatric anxiety 05/15/2016 Psychiatric depression 05/15/2016 Constitutional recent illness 04/23/2016 Constitutional No chills 04/23/2016 Constitutional No fatigue 04/23/2016 Constitutional No fever 04/23/2016 Constitutional No insomnia 04/23/2016 Constitutional No malaise 04/23/2016 Ears/Nose/Throat/Neck No dental pain Ears/Nose/Throat/Neck No dizziness 2015 Ears/Nose/Throat/Neck No dysphagia 2015 Ears/Nose/Throat/Neck No headache 2015 Ears/Nose/Throat/Neck No hearing loss Ears/Nose/Throat/Neck nasal allergies Ears/Nose/Throat/Neck No postnasal drip 04/23/2016 Ears/Nose/Throat/Neck No sinus congestion 04/23/2016 Cardiovascular No chest pain/pressure Cardiovascular No dyspnea 04/23/2016 Cardiovascular No edema 04/23/2016 Cardiovascular No exercise intolerance Cardiovascular No fatigue 04/23/2016 Cardiovascular No near-syncope/dizziness 04/23/2016 Respiratory No chest tightness 2015 Respiratory No cough 04/23/2016 Respiratory No dyspnea 04/23/2016 Respiratory No pedal edema 04/23/2016 Gastrointestinal No abdominal pain 2015 Gastrointestinal No constipation 2015 Gastrointestinal No diarrhea 04/23/2016 Gastrointestinal No gastroesophageal reflux 04/23/2016 Gastrointestinal No nausea 04/23/2016 Gastrointestinal No vomiting 04/23/2016 Genitourinary/Nephrology No dysuria 04/23 Genitourinary/Nephrology No nocturia Genitourinary/Nephrology No urinary incontinence 04/23/2016 Musculoskeletal stiffness 04/23/2016 Musculoskeletal No swelling 04/23/2016 Musculoskeletal No muscle weakness 2015 Musculoskeletal No myalgias 04/23/2016 Dermatologic No rash 04/23/2016 Dermatologic No sores 04/23/2016 Dermatologic No scar 04/23/2016 Neurologic No dizziness 04/23/2016 Neurologic No headache 04/23/2016 Neurologic No neck pain 04/23/2016 Neurologic No syncope 04/23/2016 Psychiatric anxiety 04/23/2016 Psychiatric depression 04/23/2016 Musculoskeletal joint complaint 2015 Musculoskeletal bone pain 04/23/2016 Musculoskeletal bone fracture 04/23/2016 Constitutional recent illness 03/14/2016 Constitutional No fever 03/14/2016 Eyes No eye erythema 03/14/2016 Eyes No vision change 03/14/2016 Ears/Nose/Throat/Neck nasal allergies Ears/Nose/Throat/Neck postnasal drip Ears/Nose/Throat/Neck sinus congestion Cardiovascular No chest pain/pressure Cardiovascular No dyspnea 03/14/2016 Respiratory cough 03/14/2016 Respiratory No dyspnea 03/14/2016 Gastrointestinal No abdominal pain 2015 Gastrointestinal No constipation 2015 Gastrointestinal No diarrhea 03/14/2016 Gastrointestinal No nausea 03/14/2016 Gastrointestinal No vomiting 03/14/2016 Dermatologic No rash 03/14/2016 Dermatologic No sores 03/14/2016 Dermatologic No scar 03/14/2016 Ears/Nose/Throat/Neck nasal discharge Respiratory chest congestion 03/14/2016 Respiratory productive sputum 03/14/2016 Musculoskeletal No joint complaint 2015 Neurologic No alteration of consciousness 03/14/2016 Constitutional recent illness 02/19/2016 Constitutional No fatigue 02/19/2016 Constitutional No fever 02/19/2016 Constitutional No insomnia 02/19/2016 Constitutional No malaise 02/19/2016 Eyes No eye erythema 02/19/2016 Eyes No vision change 02/19/2016 Cardiovascular No chest pain/pressure Cardiovascular No dyspnea 02/19/2016 Respiratory No cough 02/19/2016 Gastrointestinal No nausea 02/19/2016 Gastrointestinal No vomiting 02/19/2016 Dermatologic No rash 02/19/2016 Dermatologic No sores 02/19/2016 Dermatologic No scar 02/19/2016 Psychiatric anxiety 02/19/2016 Psychiatric depression 02/19/2016 Ears/Nose/Throat/Neck No nasal allergies 02/19/2016 Ears/Nose/Throat/Neck No nasal discharge 02/19/2016 Respiratory No dyspnea 02/19/2016 Genitourinary/Nephrology flank pain 02/18 Neurologic No alteration of consciousness 02/19/2016 Neurologic No mental status change 2015 Constitutional recent illness 12/19/2015 Constitutional No chills 12/19/2015 Constitutional No fatigue 12/19/2015 Constitutional No fever 12/19/2015 Constitutional No insomnia 12/19/2015 Constitutional No malaise 12/19/2015 Eyes No blindness 12/19/2015 Eyes No vision change 12/19/2015 Ears/Nose/Throat/Neck No dental pain Ears/Nose/Throat/Neck No dizziness 2015 Ears/Nose/Throat/Neck No dysphagia 2015 Ears/Nose/Throat/Neck No headache 2015 Ears/Nose/Throat/Neck No hearing loss Ears/Nose/Throat/Neck nasal allergies Ears/Nose/Throat/Neck sore throat 2015 Ears/Nose/Throat/Neck No postnasal drip 12/19/2015 Ears/Nose/Throat/Neck No sinus congestion 12/19/2015 Cardiovascular No chest pain/pressure Cardiovascular No dyspnea 12/19/2015 Cardiovascular No edema 12/19/2015 Cardiovascular No exercise intolerance Cardiovascular No fatigue 12/19/2015 Cardiovascular No near-syncope/dizziness 12/19/2015 Respiratory No chest tightness 2015 Respiratory No cough 12/19/2015 Respiratory No dyspnea 12/19/2015 Respiratory No pedal edema 12/19/2015 Gastrointestinal No abdominal pain 2015 Gastrointestinal No constipation 2015 Gastrointestinal No diarrhea 12/19/2015 Gastrointestinal No gastroesophageal reflux 12/19/2015 Gastrointestinal No nausea 12/19/2015 Gastrointestinal No vomiting 12/19/2015 Genitourinary/Nephrology No dysuria 12/18 Genitourinary/Nephrology No nocturia Genitourinary/Nephrology No urinary incontinence 12/19/2015 Musculoskeletal No stiffness 12/19/2015 Musculoskeletal No swelling 12/19/2015 Musculoskeletal No muscle weakness 2015 Musculoskeletal No myalgias 12/19/2015 Dermatologic No rash 12/19/2015 Dermatologic No sores 12/19/2015 Dermatologic No scar 12/19/2015 Neurologic No dizziness 12/19/2015 Neurologic No headache 12/19/2015 Neurologic No neck pain 12/19/2015 Neurologic No syncope 12/19/2015 Psychiatric anxiety 12/19/2015 Psychiatric depression 12/19/2015 Constitutional recent illness 03/06/2015 Constitutional No chills 03/06/2015 Constitutional No fatigue 03/06/2015 Constitutional No fever 03/06/2015 Constitutional No insomnia 03/06/2015 Constitutional No malaise 03/06/2015 Eyes No blindness 03/06/2015 Eyes No vision change 03/06/2015 Ears/Nose/Throat/Neck No dental pain 04/2015 Ears/Nose/Throat/Neck No dizziness 2014 Ears/Nose/Throat/Neck No dysphagia 2014 Ears/Nose/Throat/Neck No headache 2014 Ears/Nose/Throat/Neck No hearing loss 04/2015 Ears/Nose/Throat/Neck nasal allergies 04/2015 Ears/Nose/Throat/Neck sore throat 2014 Ears/Nose/Throat/Neck No postnasal drip 03/06/2015 Ears/Nose/Throat/Neck No sinus congestion 03/06/2015 Cardiovascular No chest pain/pressure 04/2015 Cardiovascular No dyspnea 03/06/2015 Cardiovascular No edema 03/06/2015 Cardiovascular No exercise intolerance Cardiovascular No fatigue 03/06/2015 Cardiovascular No near-syncope/dizziness 03/06/2015 Respiratory No chest tightness 2014 Respiratory No cough 03/06/2015 Respiratory No dyspnea 03/06/2015 Respiratory No pedal edema 03/06/2015 Gastrointestinal No abdominal pain 2014 Gastrointestinal No constipation 2014 Gastrointestinal No diarrhea 03/06/2015 Gastrointestinal No gastroesophageal reflux 03/06/2015 Gastrointestinal No nausea 03/06/2015 Gastrointestinal No vomiting 03/06/2015 Genitourinary/Nephrology No dysuria 03/06 Genitourinary/Nephrology No nocturia 04/2015 Genitourinary/Nephrology No urinary incontinence 03/06/2015 Musculoskeletal No stiffness 03/06/2015 Musculoskeletal No swelling 03/06/2015 Musculoskeletal No muscle weakness 2014 Musculoskeletal No myalgias 03/06/2015 Dermatologic No rash 03/06/2015 Dermatologic No sores 03/06/2015 Dermatologic No scar 03/06/2015 Neurologic No dizziness 03/06/2015 Neurologic No headache 03/06/2015 Neurologic No neck pain 03/06/2015 Neurologic No syncope 03/06/2015 Psychiatric No anxiety 03/06/2015 Psychiatric No depression 03/06/2015 Constitutional No recent illness 2014 Constitutional No anorexia 02/07/2015 Constitutional No night sweats 2014 Constitutional No chills 02/07/2015 Constitutional No diaphoresis 02/07/2015 Constitutional fatigue 02/07/2015 Constitutional No fever 02/07/2015 Constitutional insomnia 02/07/2015 Constitutional No malaise 02/07/2015 Constitutional No weight loss 02/07/2015 Constitutional No weight gain 02/07/2015 Eyes No eye discharge 02/07/2015 Eyes No eye erythema 02/07/2015 Ears/Nose/Throat/Neck No dizziness 2014 Ears/Nose/Throat/Neck No headache 2014 Ears/Nose/Throat/Neck nasal allergies 08/2015 Ears/Nose/Throat/Neck nasal discharge 08/2015 Cardiovascular No chest pain/pressure 08/2015 Cardiovascular No edema 02/07/2015 Respiratory No chest congestion 2014 Respiratory cough 02/07/2015 Gastrointestinal gastroesophageal reflux 02/07/2015 Ears/Nose/Throat/Neck sinus congestion Gastrointestinal constipation 02/07/2015 Gastrointestinal No anorexia 02/07/2015 Genitourinary/Nephrology No dysuria 02/07 Musculoskeletal No joint complaint 2014 Dermatologic No rash 02/07/2015 Dermatologic No sores 02/07/2015 Neurologic No alteration of consciousness 02/07/2015 Psychiatric anxiety 02/07/2015 Physical Exam Exam Name System Name Item Name Status Result Effective Dates Notes Full Exam - General 1994 Constitutional general appearance Overall: well developed 10/16/2017 None Full Exam - General 1994 Constitutional general appearance Overall: in no acute distress 10/16/2017 None Full Exam - General 1994 Constitutional general appearance Overall: well nourished 10/16/2017 None Full Exam - General 1994 Eyes conjunctiva /eyelids Overall: conjunctiva clear 10/16/2017 None Full Exam - General 1994 Eyes conjunctiva /eyelids Overall: eyelids normal 10/16/2017 None Full Exam - General 1994 Ears/Nose/Throat lips/teeth/gingiva Overall: benign lips 10/16/2017 None Full Exam - General 1994 Ears/Nose/Throat oral cavity/pharynx/larynx Overall: oral mucosa clear 10/16/2017 None Full Exam - General 1994 Respiratory auscultation Overall: breath sounds clear bilaterally 10/16/2017 None Full Exam - General 1994 Respiratory auscultation Diffuse: diminished 10/16/2017 None Full Exam - General 1994 Respiratory respiratory effort/rhythm Overall: no retractions 10/16/2017 None Full Exam - General 1994 Respiratory respiratory effort/rhythm Overall: normal rate 10/16/2017 None Full Exam - General 1994 Cardiovascular extremities Cyanosis present: fingers 10/16/2017 None Full Exam - General 1994 Cardiovascular extremities Cold: fingers 10/16/2017 None Full Exam - General 1994 Cardiovascular auscultation of heart Overall: regular rate 10/16/2017 None Full Exam - General 1994 Cardiovascular auscultation of heart Overall: normal heart sounds 10/16/2017 None Full Exam - General 1994 Abdomen abdominal exam Overall: no tenderness 10/16/2017 None Full Exam - General 1994 Abdomen abdominal exam Overall: normal bowel sounds 10/16/2017 None Full Exam - General 1994 Musculoskeletal head and neck Overall: head atraumatic 10/16/2017 None Full Exam - General 1994 Neurologic cranial nerves Overall: crainial nerves 2 - 12 grossly intact 10/16/2017 None Full Exam - General 1994 Psychiatric orientation/consciousness Overall: oriented to person, place and time 10/16/2017 None Full Exam - General 1994 Psychiatric mood and affect Overall: normal mood and affect 10/16/2017 None Full Exam - General 1994 Psychiatric appearance Overall: well-groomed, good eye contact 10/16/2017 None Full Exam - General 1994 Musculoskeletal lower extremity Inspection - knee: swelling 10/16/2017 None Full Exam - General 1994 Musculoskeletal lower extremity Palpation - knee: crepitus 10/16/2017 None Full Exam - General 1994 Musculoskeletal lower extremity Palpation - knee: large effusion 10/16/2017 knee prepped with iodine and in usual sterile fashion, 20 guage needle used to drain knee of 10mL of blood and steroid injected after into knee Full Exam - Orthopedics Constitutional general appearance Overall: well nourished 09/03/2017 None Full Exam - Orthopedics Constitutional general appearance Overall: well developed 09/03/2017 None Full Exam - Orthopedics Constitutional general appearance Overall: in no acute distress 09/03/2017 None Full Exam - Orthopedics Eyes conjunctiva/ eyelids Overall: conjunctiva clear 09/03/2017 None Full Exam - Orthopedics Eyes conjunctiva/ eyelids Overall: eyelids normal 09/03/2017 None Full Exam - Orthopedics Ears/Nose/Throat lips/teeth/gingiva Overall: benign lips 09/03/2017 None Full Exam - Orthopedics Ears/Nose/Throat oral cavity/pharynx/larynx Overall: oral mucosa clear 09/03/2017 None Full Exam - Orthopedics Respiratory respiratory effort/rhythm Overall: no retractions 09/03/2017 None Full Exam - Orthopedics Respiratory respiratory effort/rhythm Overall: normal rate 09/03/2017 None Full Exam - Orthopedics Psychiatric orientation/consciousness Overall: oriented to person, place and time 09/03/2017 None Full Exam - Orthopedics Psychiatric mood and affect Overall: normal mood and affect 09/03/2017 None Full Exam - Orthopedics Psychiatric appearance Overall: well-groomed, good eye contact 09/03/2017 None Full Exam - Orthopedics MS: spine/rib/pelvis insp & palp - S/R/P Thoracic spine palpation: tender facet joints 09/03/2017 None Full Exam - Orthopedics MS: spine/rib/pelvis insp & palp - S/R/P Thoracic spine palpation: tender thoracic spinous processes 09/03/2017 None Full Exam - General 1994 Constitutional general appearance Overall: well developed 07/31/2017 None Full Exam - General 1994 Constitutional general appearance Overall: in no acute distress 07/31/2017 None Full Exam - General 1994 Constitutional general appearance Overall: well nourished 07/31/2017 None Full Exam - General 1994 Eyes conjunctiva /eyelids Overall: conjunctiva clear 07/31/2017 None Full Exam - General 1994 Eyes conjunctiva /eyelids Overall: eyelids normal 07/31/2017 None Full Exam - General 1994 Ears/Nose/Throat lips/teeth/gingiva Overall: benign lips 07/31/2017 None Full Exam - General 1994 Ears/Nose/Throat oral cavity/pharynx/larynx Overall: oral mucosa clear 07/31/2017 None Full Exam - General 1994 Respiratory auscultation Overall: breath sounds clear bilaterally 07/31/2017 None Full Exam - General 1994 Respiratory auscultation Diffuse: diminished 07/31/2017 None Full Exam - General 1994 Respiratory respiratory effort/rhythm Overall: no retractions 07/31/2017 None Full Exam - General 1994 Respiratory respiratory effort/rhythm Overall: normal rate 07/31/2017 None Full Exam - General 1994 Cardiovascular auscultation of heart Overall: regular rate 07/31/2017 None Full Exam - General 1994 Cardiovascular auscultation of heart Overall: normal heart sounds 07/31/2017 None Full Exam - General 1994 Abdomen abdominal exam Overall: no tenderness 07/31/2017 None Full Exam - General 1994 Abdomen abdominal exam Overall: normal bowel sounds 07/31/2017 None Full Exam - General 1994 Musculoskeletal gait and station Overall: normal gait 07/31/2017 None Full Exam - General 1994 Musculoskeletal gait and station Overall: normal station 07/31/2017 None Full Exam - General 1994 Musculoskeletal head and neck Overall: head atraumatic 07/31/2017 None Full Exam - General 1994 Neurologic cranial nerves Overall: crainial nerves 2 - 12 grossly intact 07/31/2017 None Full Exam - General 1994 Psychiatric orientation/consciousness Overall: oriented to person, place and time 07/31/2017 None Full Exam - General 1994 Psychiatric mood and affect Overall: normal mood and affect 07/31/2017 None Full Exam - General 1994 Psychiatric appearance Overall: well-groomed, good eye contact 07/31/2017 None Full Exam - Orthopedics Constitutional general appearance Overall: well nourished 06/16/2017 None Full Exam - Orthopedics Constitutional general appearance Overall: well developed 06/16/2017 None Full Exam - Orthopedics Constitutional general appearance Overall: in no acute distress 06/16/2017 None Full Exam - Orthopedics Psychiatric orientation/consciousness Overall: oriented to person, place and time 06/16/2017 None Full Exam - Orthopedics Respiratory auscultation Overall: breath sounds clear bilaterally 06/16/2017 None Full Exam - Orthopedics Respiratory respiratory effort/rhythm Overall: no retractions 06/16/2017 None Full Exam - Orthopedics Respiratory respiratory effort/rhythm Overall: normal rate 06/16/2017 None Full Exam - Orthopedics Respiratory respiratory effort/rhythm Overall: normal , symmetric chest expansion 06/16/2017 None Full Exam - Orthopedics Cardiovascular examination of vasculature Overall: good capillary refill 06/16/2017 None Full Exam - Orthopedics Cardiovascular examination of vasculature Overall: warm extremities 06/16/2017 None Full Exam - Orthopedics Musculoskeletal gait and station Conventional walking: symmetric 06/16/2017 None Full Exam - Orthopedics MS: left lower extremity insp & palp - LLE Knee: joint effusion 06/16/2017 medial/lateral laxity Full Exam - Orthopedics MS: left lower extremity range of motion - LLE Knee: pain with extension 06/16/2017 None Full Exam - Orthopedics MS: left lower extremity range of motion - LLE Knee: pain with flexion 06/16/2017 None Full Exam - General 1994 Constitutional general appearance Overall: well developed 05/28/2017 None Full Exam - General 1994 Constitutional general appearance Overall: in no acute distress 05/28/2017 None Full Exam - General 1994 Constitutional general appearance Overall: well nourished 05/28/2017 None Full Exam - General 1994 Eyes conjunctiva /eyelids Overall: conjunctiva clear 05/28/2017 None Full Exam - General 1994 Eyes conjunctiva /eyelids Overall: eyelids normal 05/28/2017 None Full Exam - General 1994 Ears/Nose/Throat lips/teeth/gingiva Overall: benign lips 05/28/2017 None Full Exam - General 1994 Ears/Nose/Throat oral cavity/pharynx/larynx Overall: oral mucosa clear 05/28/2017 None Full Exam - General 1994 Respiratory auscultation Overall: breath sounds clear bilaterally 05/28/2017 None Full Exam - General 1994 Respiratory auscultation Diffuse: diminished 05/28/2017 None Full Exam - General 1994 Respiratory respiratory effort/rhythm Overall: no retractions 05/28/2017 None Full Exam - General 1994 Respiratory respiratory effort/rhythm Overall: normal rate 05/28/2017 None Full Exam - General 1994 Cardiovascular extremities Cyanosis present: fingers 05/28/2017 None Full Exam - General 1994 Cardiovascular extremities Cold: fingers 05/28/2017 None Full Exam - General 1994 Cardiovascular auscultation of heart Overall: regular rate 05/28/2017 None Full Exam - General 1994 Cardiovascular auscultation of heart Overall: normal heart sounds 05/28/2017 None Full Exam - General 1994 Abdomen abdominal exam Overall: no tenderness 05/28/2017 None Full Exam - General 1994 Abdomen abdominal exam Overall: normal bowel sounds 05/28/2017 None Full Exam - General 1994 Musculoskeletal gait and station Overall: normal gait 05/28/2017 None Full Exam - General 1994 Musculoskeletal gait and station Overall: normal station 05/28/2017 None Full Exam - General 1994 Musculoskeletal head and neck Overall: head atraumatic 05/28/2017 None Full Exam - General 1994 Neurologic cranial nerves Overall: crainial nerves 2 - 12 grossly intact 05/28/2017 None Full Exam - General 1994 Psychiatric orientation/consciousness Overall: oriented to person, place and time 05/28/2017 None Full Exam - General 1994 Psychiatric mood and affect Overall: normal mood and affect 05/28/2017 None Full Exam - General 1994 Psychiatric appearance Overall: well-groomed, good eye contact 05/28/2017 None Full Exam - General 1994 Eyes conjunctiva /eyelids Eyelid: contusion 05/28/2017 None Full Exam - General 1994 Integument inspection of skin Location: left leg 05/28/2017 bruising of thigh medially Full Exam - General 1994 Constitutional general appearance Overall: well developed 05/05/2017 None Full Exam - General 1994 Constitutional general appearance Overall: in no acute distress 05/05/2017 None Full Exam - General 1994 Constitutional general appearance Overall: well nourished 05/05/2017 None Full Exam - General 1994 Eyes conjunctiva /eyelids Overall: conjunctiva clear 05/05/2017 None Full Exam - General 1994 Eyes conjunctiva /eyelids Overall: eyelids normal 05/05/2017 None Full Exam - General 1994 Ears/Nose/Throat lips/teeth/gingiva Overall: benign lips 05/05/2017 None Full Exam - General 1994 Ears/Nose/Throat oral cavity/pharynx/larynx Overall: oral mucosa clear 05/05/2017 None Full Exam - General 1994 Respiratory auscultation Overall: breath sounds clear bilaterally 05/05/2017 None Full Exam - General 1994 Respiratory auscultation Diffuse: diminished 05/05/2017 None Full Exam - General 1994 Respiratory respiratory effort/rhythm Overall: no retractions 05/05/2017 None Full Exam - General 1994 Respiratory respiratory effort/rhythm Overall: normal rate 05/05/2017 None Full Exam - General 1994 Cardiovascular extremities Cyanosis present: fingers 05/05/2017 None Full Exam - General 1994 Cardiovascular extremities Cold: fingers 05/05/2017 None Full Exam - General 1994 Cardiovascular auscultation of heart Overall: regular rate 05/05/2017 None Full Exam - General 1994 Cardiovascular auscultation of heart Overall: normal heart sounds 05/05/2017 None Full Exam - General 1994 Musculoskeletal gait and station Overall: normal gait 05/05/2017 None Full Exam - General 1994 Musculoskeletal gait and station Overall: normal station 05/05/2017 None Full Exam - General 1994 Musculoskeletal head and neck Overall: head atraumatic 05/05/2017 None Full Exam - General 1994 Neurologic cranial nerves Overall: crainial nerves 2 - 12 grossly intact 05/05/2017 None Full Exam - General 1994 Psychiatric orientation/consciousness Overall: oriented to person, place and time 05/05/2017 None Full Exam - General 1994 Psychiatric mood and affect Overall: normal mood and affect 05/05/2017 None Full Exam - General 1994 Psychiatric appearance Overall: well-groomed, good eye contact 05/05/2017 None Full Exam - General 1994 Abdomen abdominal exam Overall: no tenderness 05/05/2017 None Full Exam - General 1994 Abdomen abdominal exam Overall: normal bowel sounds 05/05/2017 None Full Exam - General 1994 Constitutional general appearance Overall: well developed 03/13/2017 None Full Exam - General 1994 Constitutional general appearance Overall: in no acute distress 03/13/2017 None Full Exam - General 1994 Constitutional general appearance Overall: well nourished 03/13/2017 None Full Exam - General 1994 Eyes conjunctiva /eyelids Overall: conjunctiva clear 03/13/2017 None Full Exam - General 1994 Eyes conjunctiva /eyelids Overall: eyelids normal 03/13/2017 None Full Exam - General 1994 Ears/Nose/Throat lips/teeth/gingiva Overall: benign lips 03/13/2017 None Full Exam - General 1994 Ears/Nose/Throat oral cavity/pharynx/larynx Overall: oral mucosa clear 03/13/2017 None Full Exam - General 1994 Respiratory auscultation Overall: breath sounds clear bilaterally 03/13/2017 None Full Exam - General 1994 Respiratory auscultation Diffuse: diminished 03/13/2017 None Full Exam - General 1994 Respiratory respiratory effort/rhythm Overall: no retractions 03/13/2017 None Full Exam - General 1994 Respiratory respiratory effort/rhythm Overall: normal rate 03/13/2017 None Full Exam - General 1994 Cardiovascular extremities Cyanosis present: fingers 03/13/2017 None Full Exam - General 1994 Cardiovascular extremities Cold: fingers 03/13/2017 None Full Exam - General 1994 Cardiovascular auscultation of heart Overall: regular rate 03/13/2017 None Full Exam - General 1994 Cardiovascular auscultation of heart Overall: normal heart sounds 03/13/2017 None Full Exam - General 1994 Abdomen abdominal exam Overall: no tenderness 03/13/2017 None Full Exam - General 1994 Abdomen abdominal exam Overall: normal bowel sounds 03/13/2017 None Full Exam - General 1994 Musculoskeletal gait and station Overall: normal gait 03/13/2017 None Full Exam - General 1994 Musculoskeletal gait and station Overall: normal station 03/13/2017 None Full Exam - General 1994 Musculoskeletal head and neck Overall: head atraumatic 03/13/2017 None Full Exam - General 1994 Neurologic cranial nerves Overall: crainial nerves 2 - 12 grossly intact 03/13/2017 None Full Exam - General 1994 Psychiatric orientation/consciousness Overall: oriented to person, place and time 03/13/2017 None Full Exam - General 1994 Psychiatric mood and affect Overall: normal mood and affect 03/13/2017 None Full Exam - General 1994 Psychiatric appearance Overall: well-groomed, good eye contact 03/13/2017 None Full Exam - General 1994 Constitutional general appearance Overall: well developed 02/10/2017 None Full Exam - General 1994 Constitutional general appearance Overall: in no acute distress 02/10/2017 None Full Exam - General 1994 Constitutional general appearance Overall: well nourished 02/10/2017 None Full Exam - General 1994 Eyes conjunctiva /eyelids Overall: conjunctiva clear 02/10/2017 None Full Exam - General 1994 Eyes conjunctiva /eyelids Overall: eyelids normal 02/10/2017 None Full Exam - General 1994 Ears/Nose/Throat lips/teeth/gingiva Overall: benign lips 02/10/2017 None Full Exam - General 1994 Ears/Nose/Throat oral cavity/pharynx/larynx Overall: oral mucosa clear 02/10/2017 None Full Exam - General 1994 Respiratory auscultation Overall: breath sounds clear bilaterally 02/10/2017 None Full Exam - General 1994 Respiratory auscultation Diffuse: diminished 02/10/2017 None Full Exam - General 1994 Respiratory respiratory effort/rhythm Overall: no retractions 02/10/2017 None Full Exam - General 1994 Respiratory respiratory effort/rhythm Overall: normal rate 02/10/2017 None Full Exam - General 1994 Cardiovascular extremities Cyanosis present: fingers 02/10/2017 None Full Exam - General 1994 Cardiovascular extremities Cold: fingers 02/10/2017 None Full Exam - General 1994 Cardiovascular auscultation of heart Overall: regular rate 02/10/2017 None Full Exam - General 1994 Cardiovascular auscultation of heart Overall: normal heart sounds 02/10/2017 None Full Exam - General 1994 Abdomen abdominal exam Overall: no tenderness 02/10/2017 None Full Exam - General 1994 Abdomen abdominal exam Overall: normal bowel sounds 02/10/2017 None Full Exam - General 1994 Musculoskeletal gait and station Overall: normal gait 02/10/2017 None Full Exam - General 1994 Musculoskeletal gait and station Overall: normal station 02/10/2017 None Full Exam - General 1994 Musculoskeletal head and neck Overall: head atraumatic 02/10/2017 None Full Exam - General 1994 Neurologic cranial nerves Overall: crainial nerves 2 - 12 grossly intact 02/10/2017 None Full Exam - General 1994 Psychiatric orientation/consciousness Overall: oriented to person, place and time 02/10/2017 None Full Exam - General 1994 Psychiatric mood and affect Overall: normal mood and affect 02/10/2017 None Full Exam - General 1994 Psychiatric appearance Overall: well-groomed, good eye contact 02/10/2017 None Full Exam - General 1994 Constitutional general appearance Overall: well developed 01/14/2017 None Full Exam - General 1994 Constitutional general appearance Overall: in no acute distress 01/14/2017 None Full Exam - General 1994 Constitutional general appearance Overall: well nourished 01/14/2017 None Full Exam - General 1994 Eyes conjunctiva /eyelids Overall: conjunctiva clear 01/14/2017 None Full Exam - General 1994 Eyes conjunctiva /eyelids Overall: eyelids normal 01/14/2017 None Full Exam - General 1994 Ears/Nose/Throat lips/teeth/gingiva Overall: benign lips 01/14/2017 None Full Exam - General 1994 Ears/Nose/Throat oral cavity/pharynx/larynx Overall: oral mucosa clear 01/14/2017 None Full Exam - General 1994 Respiratory auscultation Overall: breath sounds clear bilaterally 01/14/2017 None Full Exam - General 1994 Respiratory auscultation Diffuse: diminished 01/14/2017 None Full Exam - General 1994 Respiratory respiratory effort/rhythm Overall: no retractions 01/14/2017 None Full Exam - General 1994 Respiratory respiratory effort/rhythm Overall: normal rate 01/14/2017 None Full Exam - General 1994 Cardiovascular extremities Cyanosis present: fingers 01/14/2017 None Full Exam - General 1994 Cardiovascular extremities Cold: fingers 01/14/2017 None Full Exam - General 1994 Cardiovascular auscultation of heart Overall: regular rate 01/14/2017 None Full Exam - General 1994 Cardiovascular auscultation of heart Overall: normal heart sounds 01/14/2017 None Full Exam - General 1994 Musculoskeletal gait and station Overall: normal gait 01/14/2017 None Full Exam - General 1994 Musculoskeletal gait and station Overall: normal station 01/14/2017 None Full Exam - General 1994 Musculoskeletal head and neck Overall: head atraumatic 01/14/2017 None Full Exam - General 1994 Neurologic cranial nerves Overall: crainial nerves 2 - 12 grossly intact 01/14/2017 None Full Exam - General 1994 Psychiatric orientation/consciousness Overall: oriented to person, place and time 01/14/2017 None Full Exam - General 1994 Psychiatric mood and affect Overall: normal mood and affect 01/14/2017 None Full Exam - General 1994 Psychiatric appearance Overall: well-groomed, good eye contact 01/14/2017 None Full Exam - General 1994 Abdomen abdominal exam Overall: no tenderness 01/14/2017 None Full Exam - General 1994 Abdomen abdominal exam Overall: normal bowel sounds 01/14/2017 None Full Exam - General 1994 Constitutional general appearance Overall: well developed 01/07/2017 None Full Exam - General 1994 Eyes conjunctiva /eyelids Overall: conjunctiva clear 01/07/2017 None Full Exam - General 1994 Eyes conjunctiva /eyelids Overall: eyelids normal 01/07/2017 None Full Exam - General 1994 Ears/Nose/Throat lips/teeth/gingiva Overall: benign lips 01/07/2017 None Full Exam - General 1994 Respiratory auscultation Overall: breath sounds clear bilaterally 01/07/2017 None Full Exam - General 1994 Respiratory auscultation Diffuse: diminished 01/07/2017 None Full Exam - General 1994 Respiratory respiratory effort/rhythm Overall: no retractions 01/07/2017 None Full Exam - General 1994 Respiratory respiratory effort/rhythm Overall: normal rate 01/07/2017 None Full Exam - General 1994 Cardiovascular extremities Cyanosis present: fingers 01/07/2017 None Full Exam - General 1994 Cardiovascular extremities Cold: fingers 01/07/2017 None Full Exam - General 1994 Cardiovascular auscultation of heart Overall: regular rate 01/07/2017 None Full Exam - General 1994 Cardiovascular auscultation of heart Overall: normal heart sounds 01/07/2017 None Full Exam - General 1994 Musculoskeletal gait and station Overall: normal gait 01/07/2017 None Full Exam - General 1994 Musculoskeletal gait and station Overall: normal station 01/07/2017 None Full Exam - General 1994 Musculoskeletal head and neck Overall: head atraumatic 01/07/2017 None Full Exam - General 1994 Neurologic cranial nerves Overall: crainial nerves 2 - 12 grossly intact 01/07/2017 None Full Exam - General 1994 Psychiatric orientation/consciousness Overall: oriented to person, place and time 01/07/2017 None Full Exam - General 1994 Psychiatric appearance Overall: well-groomed, good eye contact 01/07/2017 None Full Exam - General 1994 Constitutional general appearance Evidence of Distress: mild distress 01/07/2017 None Full Exam - General 1994 Constitutional general appearance Evidence of Distress: anxious 01/07/2017 None Full Exam - General 1994 Ears/Nose/Throat oral cavity/pharynx/larynx Oral mucosa: dry 01/07/2017 None Full Exam - General 1994 Ears/Nose/Throat otoscopic exam Overall: external auditory canals clear 01/07/2017 None Full Exam - General 1994 Ears/Nose/Throat otoscopic exam Overall: tympanic membranes clear 01/07/2017 None Full Exam - General 1994 Psychiatric mood and affect Mood: anxious 01/07/2017 None Full Exam - General 1994 Constitutional general appearance Overall: well developed 01/01/2017 None Full Exam - General 1994 Constitutional general appearance Overall: in no acute distress 01/01/2017 None Full Exam - General 1994 Constitutional general appearance Overall: well nourished 01/01/2017 None Full Exam - General 1994 Eyes conjunctiva /eyelids Overall: conjunctiva clear 01/01/2017 None Full Exam - General 1994 Eyes conjunctiva /eyelids Overall: eyelids normal 01/01/2017 None Full Exam - General 1994 Ears/Nose/Throat lips/teeth/gingiva Overall: benign lips 01/01/2017 None Full Exam - General 1994 Ears/Nose/Throat oral cavity/pharynx/larynx Overall: oral mucosa clear 01/01/2017 None Full Exam - General 1994 Respiratory auscultation Overall: breath sounds clear bilaterally 01/01/2017 None Full Exam - General 1994 Respiratory respiratory effort/rhythm Overall: no retractions 01/01/2017 None Full Exam - General 1994 Respiratory respiratory effort/rhythm Overall: normal rate 01/01/2017 None Full Exam - General 1994 Respiratory auscultation Diffuse: diminished 01/01/2017 None Full Exam - General 1994 Cardiovascular auscultation of heart Overall: regular rate 01/01/2017 None Full Exam - General 1994 Cardiovascular auscultation of heart Overall: normal heart sounds 01/01/2017 None Full Exam - General 1994 Musculoskeletal gait and station Overall: normal gait 01/01/2017 None Full Exam - General 1994 Musculoskeletal gait and station Overall: normal station 01/01/2017 None Full Exam - General 1994 Musculoskeletal head and neck Overall: head atraumatic 01/01/2017 None Full Exam - General 1994 Cardiovascular extremities Cyanosis present: fingers 01/01/2017 None Full Exam - General 1994 Cardiovascular extremities Cold: fingers 01/01/2017 None Full Exam - General 1994 Neurologic cranial nerves Overall: crainial nerves 2 - 12 grossly intact 01/01/2017 None Full Exam - General 1994 Psychiatric orientation/consciousness Overall: oriented to person, place and time 01/01/2017 None Full Exam - General 1994 Psychiatric mood and affect Overall: normal mood and affect 01/01/2017 None Full Exam - General 1994 Psychiatric appearance Overall: well-groomed, good eye contact 01/01/2017 None Full Exam - General 1994 Constitutional general appearance Overall: well developed 12/12/2016 None Full Exam - General 1994 Constitutional general appearance Overall: in no acute distress 12/12/2016 None Full Exam - General 1994 Constitutional general appearance Overall: well nourished 12/12/2016 None Full Exam - General 1994 Eyes conjunctiva /eyelids Overall: conjunctiva clear 12/12/2016 None Full Exam - General 1994 Eyes conjunctiva /eyelids Overall: eyelids normal 12/12/2016 None Full Exam - General 1994 Ears/Nose/Throat oral cavity/pharynx/larynx Overall: oral mucosa clear 12/12/2016 None Full Exam - General 1994 Respiratory auscultation Overall: breath sounds clear bilaterally 12/12/2016 None Full Exam - General 1994 Respiratory respiratory effort/rhythm Overall: no retractions 12/12/2016 None Full Exam - General 1994 Respiratory respiratory effort/rhythm Overall: normal rate 12/12/2016 None Full Exam - General 1994 Cardiovascular extremities Overall: no clubbing 12/12/2016 None Full Exam - General 1994 Cardiovascular auscultation of heart Overall: regular rate 12/12/2016 None Full Exam - General 1994 Cardiovascular auscultation of heart Overall: normal heart sounds 12/12/2016 None Full Exam - General 1994 Musculoskeletal head and neck Overall: head atraumatic 12/12/2016 None Full Exam - General 1994 Psychiatric orientation/consciousness Overall: oriented to person, place and time 12/12/2016 None Full Exam - General 1994 Psychiatric mood and affect Overall: normal mood and affect 12/12/2016 None Full Exam - General 1994 Psychiatric appearance Overall: well-groomed, good eye contact 12/12/2016 None Full Exam - General 1994 Ears/Nose/Throat lips/teeth/gingiva Overall: benign lips 12/12/2016 None Full Exam - General 1994 Constitutional general appearance Development: well developed 12/11/2016 None Full Exam - General 1994 Constitutional general appearance Development: appears stated age 0312/11/2016 None Full Exam - General 1994 Constitutional general appearance Overall: in no acute distress 12/11/2016 None Full Exam - General 1994 Constitutional general appearance Nourishment: thin 12/11/2016 None Full Exam - General 1994 Constitutional general appearance Hygiene/Attention to Grooming: good hygiene 12/11/2016 None Full Exam - General 1994 Eyes conjunctiva /eyelids Overall: conjunctiva clear 12/11/2016 None Full Exam - General 1994 Eyes conjunctiva /eyelids Overall: cornea clear 12/11/2016 None Full Exam - General 1994 Eyes conjunctiva /eyelids Overall: eyelids normal 12/11/2016 None Full Exam - General 1994 Eyes pupils and irises Overall: pupils equal, round, reactive to light and accomodation 12/11/2016 None Full Exam - General 1994 Ears/Nose/Throat otoscopic exam Overall: external auditory canals clear 12/11/2016 None Full Exam - General 1994 Ears/Nose/Throat otoscopic exam Tympanic membrane: a normal exam 12/11/2016 None Full Exam - General 1994 Ears/Nose/Throat otoscopic exam Tympanic membrane: air- fluid level 12/11/2016 None Full Exam - General 1994 Ears/Nose/Throat lips/teeth/gingiva Overall: benign lips 12/11/2016 None Full Exam - General 1994 Ears/Nose/Throat lips/teeth/gingiva Overall: normal dentition 12/11/2016 None Full Exam - General 1994 Ears/Nose/Throat oral cavity/pharynx/larynx Overall: oral mucosa clear 12/11/2016 None Full Exam - General 1994 Ears/Nose/Throat oral cavity/pharynx/larynx Overall: oropharyngeal mucosa clear 12/11/2016 None Full Exam - General 1994 Ears/Nose/Throat oral cavity/pharynx/larynx Overall: hypopharynx benign 12/11/2016 None Full Exam - General 1994 Ears/Nose/Throat oral cavity/pharynx/larynx Overall: no masses 12/11/2016 None Full Exam - General 1994 Respiratory auscultation Overall: breath sounds clear bilaterally 12/11/2016 None Full Exam - General 1994 Respiratory auscultation Basilar: diminished 12/11/2016 None Full Exam - General 1994 Respiratory respiratory effort/rhythm Overall: no retractions 12/11/2016 None Full Exam - General 1994 Respiratory respiratory effort/rhythm Overall: normal rate 12/11/2016 None Full Exam - General 1994 Cardiovascular extremities Overall: no clubbing 12/11/2016 None Full Exam - General 1994 Cardiovascular auscultation of heart Overall: regular rate 12/11/2016 None Full Exam - General 1994 Cardiovascular auscultation of heart Overall: normal heart sounds 12/11/2016 None Full Exam - General 1994 Cardiovascular auscultation of heart Overall: no murmurs 12/11/2016 None Full Exam - General 1994 Abdomen abdominal exam Overall: no tenderness 12/11/2016 None Full Exam - General 1994 Abdomen abdominal exam Overall: normal bowel sounds 12/11/2016 None Full Exam - General 1994 Lymphatic neck nodes Overall: anterior cervical chain benign 12/11/2016 None Full Exam - General 1994 Lymphatic neck nodes Overall: posterior cervical chain benign 12/11/2016 None Full Exam - General 1994 Musculoskeletal spine, ribs and pelvis Overall: spine benign 12/11/2016 None Full Exam - General 1994 Musculoskeletal spine, ribs and pelvis Overall: sacroiliac joint benign 12/11/2016 None Full Exam - General 1994 Musculoskeletal spine, ribs and pelvis Overall: good posture 12/11/2016 None Full Exam - General 1994 Musculoskeletal gait and station Overall: normal gait 12/11/2016 None Full Exam - General 1994 Musculoskeletal gait and station Overall: normal station 12/11/2016 None Full Exam - General 1994 Musculoskeletal head and neck Overall: head atraumatic 12/11/2016 None Full Exam - General 1994 Musculoskeletal head and neck Overall: cervical spine benign 12/11/2016 None Full Exam - General 1994 Integument inspection of skin Overall: few scattered moles, no gross abnormalities 12/11/2016 None Full Exam - General 1994 Integument inspection of skin Overall: no rash, lesions 12/11/2016 None Full Exam - General 1994 Neurologic deep tendon reflexes Overall: deep tendon reflexes intact 12/11/2016 None Full Exam - General 1994 Neurologic cranial nerves Overall: crainial nerves 2 - 12 grossly intact 12/11/2016 None Full Exam - General 1994 Psychiatric orientation/consciousness Overall: oriented to person, place and time 12/11/2016 None Full Exam - General 1994 Psychiatric mood and affect Overall: normal mood and affect 12/11/2016 None Full Exam - General 1994 Constitutional general appearance Development: well developed 10/15/2016 None Full Exam - General 1994 Constitutional general appearance Development: appears stated age 0110/15/2016 None Full Exam - General 1994 Constitutional general appearance Overall: in no acute distress 10/15/2016 None Full Exam - General 1994 Constitutional general appearance Nourishment: thin 10/15/2016 None Full Exam - General 1994 Constitutional general appearance Hygiene/Attention to Grooming: good hygiene 10/15/2016 None Full Exam - General 1994 Eyes conjunctiva /eyelids Overall: conjunctiva clear 10/15/2016 None Full Exam - General 1994 Eyes conjunctiva /eyelids Overall: cornea clear 10/15/2016 None Full Exam - General 1994 Eyes conjunctiva /eyelids Overall: eyelids normal 10/15/2016 None Full Exam - General 1994 Eyes pupils and irises Overall: pupils equal, round, reactive to light and accomodation 10/15/2016 None Full Exam - General 1994 Ears/Nose/Throat otoscopic exam Overall: external auditory canals clear 10/15/2016 None Full Exam - General 1994 Ears/Nose/Throat otoscopic exam Tympanic membrane: a normal exam 10/15/2016 None Full Exam - General 1994 Ears/Nose/Throat otoscopic exam Tympanic membrane: air- fluid level 10/15/2016 None Full Exam - General 1994 Ears/Nose/Throat lips/teeth/gingiva Overall: benign lips 10/15/2016 None Full Exam - General 1994 Ears/Nose/Throat lips/teeth/gingiva Overall: normal dentition 10/15/2016 None Full Exam - General 1994 Ears/Nose/Throat oral cavity/pharynx/larynx Overall: oral mucosa clear 10/15/2016 None Full Exam - General 1994 Ears/Nose/Throat oral cavity/pharynx/larynx Overall: oropharyngeal mucosa clear 10/15/2016 None Full Exam - General 1994 Ears/Nose/Throat oral cavity/pharynx/larynx Overall: hypopharynx benign 10/15/2016 None Full Exam - General 1994 Ears/Nose/Throat oral cavity/pharynx/larynx Overall: no masses 10/15/2016 None Full Exam - General 1994 Respiratory auscultation Overall: breath sounds clear bilaterally 10/15/2016 None Full Exam - General 1994 Respiratory auscultation Basilar: diminished 10/15/2016 None Full Exam - General 1994 Respiratory respiratory effort/rhythm Overall: no retractions 10/15/2016 None Full Exam - General 1994 Respiratory respiratory effort/rhythm Overall: normal rate 10/15/2016 None Full Exam - General 1994 Cardiovascular extremities Overall: no clubbing 10/15/2016 None Full Exam - General 1994 Cardiovascular auscultation of heart Overall: regular rate 10/15/2016 None Full Exam - General 1994 Cardiovascular auscultation of heart Overall: normal heart sounds 10/15/2016 None Full Exam - General 1994 Cardiovascular auscultation of heart Overall: no murmurs 10/15/2016 None Full Exam - General 1994 Abdomen abdominal exam Overall: no tenderness 10/15/2016 None Full Exam - General 1994 Abdomen abdominal exam Overall: normal bowel sounds 10/15/2016 None Full Exam - General 1994 Lymphatic neck nodes Overall: anterior cervical chain benign 10/15/2016 None Full Exam - General 1994 Lymphatic neck nodes Overall: posterior cervical chain benign 10/15/2016 None Full Exam - General 1994 Musculoskeletal spine, ribs and pelvis Overall: spine benign 10/15/2016 None Full Exam - General 1994 Musculoskeletal spine, ribs and pelvis Overall: sacroiliac joint benign 10/15/2016 None Full Exam - General 1994 Musculoskeletal spine, ribs and pelvis Overall: good posture 10/15/2016 None Full Exam - General 1994 Musculoskeletal gait and station Overall: normal gait 10/15/2016 None Full Exam - General 1994 Musculoskeletal gait and station Overall: normal station 10/15/2016 None Full Exam - General 1994 Musculoskeletal head and neck Overall: head atraumatic 10/15/2016 None Full Exam - General 1994 Musculoskeletal head and neck Overall: cervical spine benign 10/15/2016 None Full Exam - General 1994 Integument inspection of skin Overall: few scattered moles, no gross abnormalities 10/15/2016 None Full Exam - General 1994 Integument inspection of skin Overall: no rash, lesions 10/15/2016 None Full Exam - General 1994 Neurologic deep tendon reflexes Overall: deep tendon reflexes intact 10/15/2016 None Full Exam - General 1994 Neurologic cranial nerves Overall: crainial nerves 2 - 12 grossly intact 10/15/2016 None Full Exam - General 1994 Psychiatric orientation/consciousness Overall: oriented to person, place and time 10/15/2016 None Full Exam - General 1994 Psychiatric mood and affect Overall: normal mood and affect 10/15/2016 None Full Exam - General 1994 Constitutional general appearance Development: well developed 07/17/2016 None Full Exam - General 1994 Constitutional general appearance Development: appears stated age 1007/17/2016 None Full Exam - General 1994 Constitutional general appearance Overall: in no acute distress 07/17/2016 None Full Exam - General 1994 Constitutional general appearance Nourishment: thin 07/17/2016 None Full Exam - General 1994 Constitutional general appearance Hygiene/Attention to Grooming: good hygiene 07/17/2016 None Full Exam - General 1994 Eyes conjunctiva /eyelids Overall: conjunctiva clear 07/17/2016 None Full Exam - General 1994 Eyes conjunctiva /eyelids Overall: cornea clear 07/17/2016 None Full Exam - General 1994 Eyes conjunctiva /eyelids Overall: eyelids normal 07/17/2016 None Full Exam - General 1994 Eyes pupils and irises Overall: pupils equal, round, reactive to light and accomodation 07/17/2016 None Full Exam - General 1994 Ears/Nose/Throat otoscopic exam Overall: external auditory canals clear 07/17/2016 None Full Exam - General 1994 Ears/Nose/Throat otoscopic exam Tympanic membrane: a normal exam 07/17/2016 None Full Exam - General 1994 Ears/Nose/Throat otoscopic exam Tympanic membrane: air- fluid level 07/17/2016 None Full Exam - General 1994 Ears/Nose/Throat lips/teeth/gingiva Overall: benign lips 07/17/2016 None Full Exam - General 1994 Ears/Nose/Throat lips/teeth/gingiva Overall: normal dentition 07/17/2016 None Full Exam - General 1994 Ears/Nose/Throat oral cavity/pharynx/larynx Overall: oral mucosa clear 07/17/2016 None Full Exam - General 1994 Ears/Nose/Throat oral cavity/pharynx/larynx Overall: oropharyngeal mucosa clear 07/17/2016 None Full Exam - General 1994 Ears/Nose/Throat oral cavity/pharynx/larynx Overall: hypopharynx benign 07/17/2016 None Full Exam - General 1994 Ears/Nose/Throat oral cavity/pharynx/larynx Overall: no masses 07/17/2016 None Full Exam - General 1994 Respiratory auscultation Overall: breath sounds clear bilaterally 07/17/2016 None Full Exam - General 1994 Respiratory auscultation Basilar: diminished 07/17/2016 None Full Exam - General 1994 Respiratory respiratory effort/rhythm Overall: no retractions 07/17/2016 None Full Exam - General 1994 Respiratory respiratory effort/rhythm Overall: normal rate 07/17/2016 None Full Exam - General 1994 Cardiovascular extremities Overall: no clubbing 07/17/2016 None Full Exam - General 1994 Cardiovascular auscultation of heart Overall: regular rate 07/17/2016 None Full Exam - General 1994 Cardiovascular auscultation of heart Overall: normal heart sounds 07/17/2016 None Full Exam - General 1994 Cardiovascular auscultation of heart Overall: no murmurs 07/17/2016 None Full Exam - General 1994 Abdomen abdominal exam Overall: no tenderness 07/17/2016 None Full Exam - General 1994 Abdomen abdominal exam Overall: normal bowel sounds 07/17/2016 None Full Exam - General 1994 Lymphatic neck nodes Overall: anterior cervical chain benign 07/17/2016 None Full Exam - General 1994 Lymphatic neck nodes Overall: posterior cervical chain benign 07/17/2016 None Full Exam - General 1994 Musculoskeletal spine, ribs and pelvis Sacroiliac joints: tender right sacroiliac joint 07/17/2016 None Full Exam - General 1994 Musculoskeletal spine, ribs and pelvis Sacroiliac joints: tender left sacroiliac joint 07/17/2016 None Full Exam - General 1994 Musculoskeletal gait and station Overall: normal gait 07/17/2016 None Full Exam - General 1994 Musculoskeletal gait and station Overall: normal station 07/17/2016 None Full Exam - General 1994 Musculoskeletal head and neck Overall: head atraumatic 07/17/2016 None Full Exam - General 1994 Musculoskeletal head and neck Overall: cervical spine benign 07/17/2016 None Full Exam - General 1994 Integument inspection of skin Overall: few scattered moles, no gross abnormalities 07/17/2016 None Full Exam - General 1994 Integument inspection of skin Overall: no rash, lesions 07/17/2016 None Full Exam - General 1994 Neurologic deep tendon reflexes Overall: deep tendon reflexes intact 07/17/2016 None Full Exam - General 1994 Neurologic cranial nerves Overall: crainial nerves 2 - 12 grossly intact 07/17/2016 None Full Exam - General 1994 Psychiatric orientation/consciousness Overall: oriented to person, place and time 07/17/2016 None Full Exam - General 1994 Psychiatric mood and affect Mood: depressed 07/17/2016 None Full Exam - General 1994 Psychiatric mood and affect Mood: anxious 07/17/2016 None Full Exam - General 1994 Psychiatric mood and affect Affect: mood congruent 07/17/2016 None Full Exam - General 1994 Psychiatric mood and affect Appropriateness: appropriate emotional responses 07/17/2016 None Full Exam - General 1994 Constitutional general appearance Development: well developed 05/15/2016 None Full Exam - General 1994 Constitutional general appearance Development: appears stated age 0805/15/2016 None Full Exam - General 1994 Constitutional general appearance Overall: in no acute distress 05/15/2016 None Full Exam - General 1994 Constitutional general appearance Nourishment: thin 05/15/2016 None Full Exam - General 1994 Constitutional general appearance Hygiene/Attention to Grooming: good hygiene 05/15/2016 None Full Exam - General 1994 Eyes conjunctiva /eyelids Overall: conjunctiva clear 05/15/2016 None Full Exam - General 1994 Eyes conjunctiva /eyelids Overall: cornea clear 05/15/2016 None Full Exam - General 1994 Eyes conjunctiva /eyelids Overall: eyelids normal 05/15/2016 None Full Exam - General 1994 Eyes pupils and irises Overall: pupils equal, round, reactive to light and accomodation 05/15/2016 None Full Exam - General 1994 Ears/Nose/Throat otoscopic exam Overall: external auditory canals clear 05/15/2016 None Full Exam - General 1994 Ears/Nose/Throat otoscopic exam Tympanic membrane: a normal exam 05/15/2016 None Full Exam - General 1994 Ears/Nose/Throat otoscopic exam Tympanic membrane: air- fluid level 05/15/2016 None Full Exam - General 1994 Ears/Nose/Throat lips/teeth/gingiva Overall: benign lips 05/15/2016 None Full Exam - General 1994 Ears/Nose/Throat lips/teeth/gingiva Overall: normal dentition 05/15/2016 None Full Exam - General 1994 Ears/Nose/Throat oral cavity/pharynx/larynx Overall: oral mucosa clear 05/15/2016 None Full Exam - General 1994 Ears/Nose/Throat oral cavity/pharynx/larynx Overall: oropharyngeal mucosa clear 05/15/2016 None Full Exam - General 1994 Ears/Nose/Throat oral cavity/pharynx/larynx Overall: hypopharynx benign 05/15/2016 None Full Exam - General 1994 Ears/Nose/Throat oral cavity/pharynx/larynx Overall: no masses 05/15/2016 None Full Exam - General 1994 Respiratory auscultation Overall: breath sounds clear bilaterally 05/15/2016 None Full Exam - General 1994 Respiratory auscultation Basilar: diminished 05/15/2016 None Full Exam - General 1994 Respiratory respiratory effort/rhythm Overall: no retractions 05/15/2016 None Full Exam - General 1994 Respiratory respiratory effort/rhythm Overall: normal rate 05/15/2016 None Full Exam - General 1994 Cardiovascular extremities Overall: no clubbing 05/15/2016 None Full Exam - General 1994 Cardiovascular auscultation of heart Overall: regular rate 05/15/2016 None Full Exam - General 1994 Cardiovascular auscultation of heart Overall: normal heart sounds 05/15/2016 None Full Exam - General 1994 Cardiovascular auscultation of heart Overall: no murmurs 05/15/2016 None Full Exam - General 1994 Abdomen abdominal exam Overall: no tenderness 05/15/2016 None Full Exam - General 1994 Abdomen abdominal exam Overall: normal bowel sounds 05/15/2016 None Full Exam - General 1994 Lymphatic neck nodes Overall: anterior cervical chain benign 05/15/2016 None Full Exam - General 1994 Lymphatic neck nodes Overall: posterior cervical chain benign 05/15/2016 None Full Exam - General 1994 Musculoskeletal spine, ribs and pelvis Sacroiliac joints: tender right sacroiliac joint 05/15/2016 None Full Exam - General 1994 Musculoskeletal spine, ribs and pelvis Sacroiliac joints: tender left sacroiliac joint 05/15/2016 None Full Exam - General 1994 Musculoskeletal gait and station Overall: normal gait 05/15/2016 None Full Exam - General 1994 Musculoskeletal gait and station Overall: normal station 05/15/2016 None Full Exam - General 1994 Musculoskeletal head and neck Overall: head atraumatic 05/15/2016 None Full Exam - General 1994 Musculoskeletal head and neck Overall: cervical spine benign 05/15/2016 None Full Exam - General 1994 Integument inspection of skin Overall: few scattered moles, no gross abnormalities 05/15/2016 None Full Exam - General 1994 Integument inspection of skin Overall: no rash, lesions 05/15/2016 None Full Exam - General 1994 Neurologic deep tendon reflexes Overall: deep tendon reflexes intact 05/15/2016 None Full Exam - General 1994 Neurologic cranial nerves Overall: crainial nerves 2 - 12 grossly intact 05/15/2016 None Full Exam - General 1994 Psychiatric orientation/consciousness Overall: oriented to person, place and time 05/15/2016 None Full Exam - General 1994 Psychiatric mood and affect Mood: depressed 05/15/2016 None Full Exam - General 1994 Psychiatric mood and affect Mood: anxious 05/15/2016 None Full Exam - General 1994 Psychiatric mood and affect Affect: mood congruent 05/15/2016 None Full Exam - General 1994 Psychiatric mood and affect Appropriateness: appropriate emotional responses 05/15/2016 None Full Exam - General 1994 Constitutional general appearance Development: well developed 04/23/2016 None Full Exam - General 1994 Constitutional general appearance Development: appears stated age 0704/23/2016 None Full Exam - General 1994 Constitutional general appearance Overall: in no acute distress 04/23/2016 None Full Exam - General 1994 Constitutional general appearance Nourishment: thin 04/23/2016 None Full Exam - General 1994 Constitutional general appearance Hygiene/Attention to Grooming: good hygiene 04/23/2016 None Full Exam - General 1994 Eyes conjunctiva /eyelids Overall: conjunctiva clear 04/23/2016 None Full Exam - General 1994 Eyes conjunctiva /eyelids Overall: cornea clear 04/23/2016 None Full Exam - General 1994 Eyes conjunctiva /eyelids Overall: eyelids normal 04/23/2016 None Full Exam - General 1994 Eyes pupils and irises Overall: pupils equal, round, reactive to light and accomodation 04/23/2016 None Full Exam - General 1994 Ears/Nose/Throat otoscopic exam Overall: external auditory canals clear 04/23/2016 None Full Exam - General 1994 Ears/Nose/Throat otoscopic exam Tympanic membrane: a normal exam 04/23/2016 None Full Exam - General 1994 Ears/Nose/Throat otoscopic exam Tympanic membrane: air- fluid level 04/23/2016 None Full Exam - General 1994 Ears/Nose/Throat lips/teeth/gingiva Overall: benign lips 04/23/2016 None Full Exam - General 1994 Ears/Nose/Throat lips/teeth/gingiva Overall: normal dentition 04/23/2016 None Full Exam - General 1994 Ears/Nose/Throat oral cavity/pharynx/larynx Overall: oral mucosa clear 04/23/2016 None Full Exam - General 1994 Ears/Nose/Throat oral cavity/pharynx/larynx Overall: oropharyngeal mucosa clear 04/23/2016 None Full Exam - General 1994 Ears/Nose/Throat oral cavity/pharynx/larynx Overall: hypopharynx benign 04/23/2016 None Full Exam - General 1994 Ears/Nose/Throat oral cavity/pharynx/larynx Overall: no masses 04/23/2016 None Full Exam - General 1994 Respiratory auscultation Overall: breath sounds clear bilaterally 04/23/2016 None Full Exam - General 1994 Respiratory auscultation Basilar: diminished 04/23/2016 None Full Exam - General 1994 Respiratory respiratory effort/rhythm Overall: no retractions 04/23/2016 None Full Exam - General 1994 Respiratory respiratory effort/rhythm Overall: normal rate 04/23/2016 None Full Exam - General 1994 Cardiovascular extremities Overall: no clubbing 04/23/2016 None Full Exam - General 1994 Cardiovascular auscultation of heart Overall: regular rate 04/23/2016 None Full Exam - General 1994 Cardiovascular auscultation of heart Overall: normal heart sounds 04/23/2016 None Full Exam - General 1994 Cardiovascular auscultation of heart Overall: no murmurs 04/23/2016 None Full Exam - General 1994 Abdomen abdominal exam Overall: no tenderness 04/23/2016 None Full Exam - General 1994 Abdomen abdominal exam Overall: normal bowel sounds 04/23/2016 None Full Exam - General 1994 Lymphatic neck nodes Overall: anterior cervical chain benign 04/23/2016 None Full Exam - General 1994 Lymphatic neck nodes Overall: posterior cervical chain benign 04/23/2016 None Full Exam - General 1994 Musculoskeletal gait and station Overall: normal gait 04/23/2016 None Full Exam - General 1994 Musculoskeletal gait and station Overall: normal station 04/23/2016 None Full Exam - General 1994 Musculoskeletal head and neck Overall: head atraumatic 04/23/2016 None Full Exam - General 1994 Musculoskeletal head and neck Overall: cervical spine benign 04/23/2016 None Full Exam - General 1994 Integument inspection of skin Overall: few scattered moles, no gross abnormalities 04/23/2016 None Full Exam - General 1994 Integument inspection of skin Overall: no rash, lesions 04/23/2016 None Full Exam - General 1994 Neurologic deep tendon reflexes Overall: deep tendon reflexes intact 04/23/2016 None Full Exam - General 1994 Neurologic cranial nerves Overall: crainial nerves 2 - 12 grossly intact 04/23/2016 None Full Exam - General 1994 Psychiatric orientation/consciousness Overall: oriented to person, place and time 04/23/2016 None Full Exam - General 1994 Psychiatric mood and affect Mood: depressed 04/23/2016 None Full Exam - General 1994 Psychiatric mood and affect Mood: anxious 04/23/2016 None Full Exam - General 1994 Psychiatric mood and affect Affect: mood congruent 04/23/2016 None Full Exam - General 1994 Psychiatric mood and affect Appropriateness: appropriate emotional responses 04/23/2016 None Full Exam - General 1994 Musculoskeletal spine, ribs and pelvis Sacroiliac joints: tender right sacroiliac joint 04/23/2016 None Full Exam - General 1994 Musculoskeletal spine, ribs and pelvis Sacroiliac joints: tender left sacroiliac joint 04/23/2016 None Full Exam - General 1994 Constitutional general appearance Overall: in no acute distress 03/14/2016 None Full Exam - General 1994 Constitutional general appearance Hygiene/Attention to Grooming: good hygiene 03/14/2016 None Full Exam - General 1994 Eyes conjunctiva /eyelids Overall: conjunctiva clear 03/14/2016 None Full Exam - General 1994 Eyes conjunctiva /eyelids Overall: cornea clear 03/14/2016 None Full Exam - General 1994 Eyes conjunctiva /eyelids Overall: eyelids normal 03/14/2016 None Full Exam - General 1994 Ears/Nose/Throat otoscopic exam Overall: external auditory canals clear 03/14/2016 None Full Exam - General 1994 Ears/Nose/Throat lips/teeth/gingiva Overall: benign lips 03/14/2016 None Full Exam - General 1994 Ears/Nose/Throat lips/teeth/gingiva Overall: normal dentition 03/14/2016 None Full Exam - General 1994 Ears/Nose/Throat oral cavity/pharynx/larynx Overall: oral mucosa clear 03/14/2016 None Full Exam - General 1994 Respiratory auscultation Overall: breath sounds clear bilaterally 03/14/2016 None Full Exam - General 1994 Respiratory auscultation Basilar: diminished 03/14/2016 None Full Exam - General 1994 Respiratory respiratory effort/rhythm Overall: no retractions 03/14/2016 None Full Exam - General 1994 Respiratory respiratory effort/rhythm Overall: normal rate 03/14/2016 None Full Exam - General 1994 Cardiovascular extremities Overall: no clubbing 03/14/2016 None Full Exam - General 1994 Cardiovascular auscultation of heart Overall: regular rate 03/14/2016 None Full Exam - General 1994 Cardiovascular auscultation of heart Overall: normal heart sounds 03/14/2016 None Full Exam - General 1994 Musculoskeletal spine, ribs and pelvis Overall: good posture 03/14/2016 None Full Exam - General 1994 Musculoskeletal gait and station Overall: normal gait 03/14/2016 None Full Exam - General 1994 Musculoskeletal gait and station Overall: normal station 03/14/2016 None Full Exam - General 1994 Neurologic cranial nerves Overall: crainial nerves 2 - 12 grossly intact 03/14/2016 None Full Exam - General 1994 Psychiatric orientation/consciousness Overall: oriented to person, place and time 03/14/2016 None Full Exam - General 1994 Psychiatric mood and affect Overall: normal mood and affect 03/14/2016 None Full Exam - General 1994 Constitutional general appearance Overall: well developed 03/14/2016 None Full Exam - General 1994 Constitutional general appearance Overall: well nourished 03/14/2016 None Full Exam - General 1994 Constitutional general appearance Nourishment: thin 03/14/2016 None Full Exam - General 1994 Ears/Nose/Throat otoscopic exam Tympanic membrane: air- fluid level 03/14/2016 None Full Exam - General 1994 Ears/Nose/Throat oral cavity/pharynx/larynx Posterior Pharynx: clear post nasal drainage 03/14/2016 None Full Exam - General 1994 Integument inspection of skin Overall: no rash, lesions 03/14/2016 None Full Exam - General 1994 Constitutional general appearance Overall: in no acute distress 02/19/2016 None Full Exam - General 1994 Constitutional general appearance Nourishment: thin 02/19/2016 None Full Exam - General 1994 Constitutional general appearance Hygiene/Attention to Grooming: good hygiene 02/19/2016 None Full Exam - General 1994 Eyes conjunctiva /eyelids Overall: conjunctiva clear 02/19/2016 None Full Exam - General 1994 Eyes conjunctiva /eyelids Overall: cornea clear 02/19/2016 None Full Exam - General 1994 Eyes conjunctiva /eyelids Overall: eyelids normal 02/19/2016 None Full Exam - General 1994 Ears/Nose/Throat otoscopic exam Overall: external auditory canals clear 02/19/2016 None Full Exam - General 1994 Ears/Nose/Throat lips/teeth/gingiva Overall: benign lips 02/19/2016 None Full Exam - General 1994 Ears/Nose/Throat lips/teeth/gingiva Overall: normal dentition 02/19/2016 None Full Exam - General 1994 Ears/Nose/Throat oral cavity/pharynx/larynx Overall: oral mucosa clear 02/19/2016 None Full Exam - General 1994 Respiratory auscultation Overall: breath sounds clear bilaterally 02/19/2016 None Full Exam - General 1994 Respiratory respiratory effort/rhythm Overall: no retractions 02/19/2016 None Full Exam - General 1994 Respiratory respiratory effort/rhythm Overall: normal rate 02/19/2016 None Full Exam - General 1994 Cardiovascular extremities Overall: no clubbing 02/19/2016 None Full Exam - General 1994 Cardiovascular auscultation of heart Overall: regular rate 02/19/2016 None Full Exam - General 1994 Cardiovascular auscultation of heart Overall: normal heart sounds 02/19/2016 None Full Exam - General 1994 Abdomen abdominal exam Overall: no tenderness 02/19/2016 None Full Exam - General 1994 Abdomen abdominal exam Overall: normal bowel sounds 02/19/2016 None Full Exam - General 1994 Musculoskeletal spine, ribs and pelvis Overall: good posture 02/19/2016 None Full Exam - General 1994 Musculoskeletal gait and station Overall: normal gait 02/19/2016 None Full Exam - General 1994 Musculoskeletal gait and station Overall: normal station 02/19/2016 None Full Exam - General 1994 Musculoskeletal head and neck Overall: head atraumatic 02/19/2016 None Full Exam - General 1994 Integument inspection of skin Overall: no rash, lesions 02/19/2016 None Full Exam - General 1994 Neurologic cranial nerves Overall: crainial nerves 2 - 12 grossly intact 02/19/2016 None Full Exam - General 1994 Psychiatric orientation/consciousness Overall: oriented to person, place and time 02/19/2016 None Full Exam - General 1994 Psychiatric mood and affect Mood: depressed 02/19/2016 None Full Exam - General 1994 Psychiatric mood and affect Mood: anxious 02/19/2016 None Full Exam - General 1994 Psychiatric mood and affect Affect: mood congruent 02/19/2016 None Full Exam - General 1994 Constitutional general appearance Overall: well developed 02/19/2016 None Full Exam - General 1994 Ears/Nose/Throat otoscopic exam Overall: tympanic membranes clear 02/19/2016 None Full Exam - General 1994 Psychiatric mood and affect Appropriateness: appropriate emotional responses 02/19/2016 None Full Exam - General 1994 Psychiatric appearance Overall: well-groomed, good eye contact 02/19/2016 None Full Exam - General 1994 Abdomen abdominal exam Lower quadrant: tender to palpation 02/19/2016 None Full Exam - General 1994 Abdomen abdominal exam Lower quadrant: no guarding 02/19/2016 None Full Exam - General 1994 Abdomen abdominal exam Lower quadrant: no rebound tenderness 02/19/2016 None Full Exam - General 1994 Abdomen abdominal exam Lower quadrant: no mass lesions 02/19/2016 None Full Exam - General 1994 Abdomen abdominal exam Lower quadrant: soft 02/19/2016 None Full Exam - General 1994 Constitutional general appearance Development: well developed 12/19/2015 None Full Exam - General 1994 Constitutional general appearance Development: appears stated age 0312/19/2015 None Full Exam - General 1994 Constitutional general appearance Overall: in no acute distress 12/19/2015 None Full Exam - General 1994 Constitutional general appearance Nourishment: thin 12/19/2015 None Full Exam - General 1994 Constitutional general appearance Hygiene/Attention to Grooming: good hygiene 12/19/2015 None Full Exam - General 1994 Eyes conjunctiva /eyelids Overall: conjunctiva clear 12/19/2015 None Full Exam - General 1994 Eyes conjunctiva /eyelids Overall: cornea clear 12/19/2015 None Full Exam - General 1994 Eyes conjunctiva /eyelids Overall: eyelids normal 12/19/2015 None Full Exam - General 1994 Eyes pupils and irises Overall: pupils equal, round, reactive to light and accomodation 12/19/2015 None Full Exam - General 1994 Ears/Nose/Throat otoscopic exam Overall: external auditory canals clear 12/19/2015 None Full Exam - General 1994 Ears/Nose/Throat otoscopic exam Tympanic membrane: a normal exam 12/19/2015 None Full Exam - General 1994 Ears/Nose/Throat otoscopic exam Tympanic membrane: air- fluid level 12/19/2015 None Full Exam - General 1994 Ears/Nose/Throat lips/teeth/gingiva Overall: benign lips 12/19/2015 None Full Exam - General 1994 Ears/Nose/Throat lips/teeth/gingiva Overall: normal dentition 12/19/2015 None Full Exam - General 1994 Ears/Nose/Throat oral cavity/pharynx/larynx Overall: oral mucosa clear 12/19/2015 None Full Exam - General 1994 Ears/Nose/Throat oral cavity/pharynx/larynx Overall: oropharyngeal mucosa clear 12/19/2015 None Full Exam - General 1994 Ears/Nose/Throat oral cavity/pharynx/larynx Overall: hypopharynx benign 12/19/2015 None Full Exam - General 1994 Ears/Nose/Throat oral cavity/pharynx/larynx Overall: no masses 12/19/2015 None Full Exam - General 1994 Respiratory auscultation Overall: breath sounds clear bilaterally 12/19/2015 None Full Exam - General 1994 Respiratory auscultation Basilar: diminished 12/19/2015 None Full Exam - General 1994 Respiratory respiratory effort/rhythm Overall: no retractions 12/19/2015 None Full Exam - General 1994 Respiratory respiratory effort/rhythm Overall: normal rate 12/19/2015 None Full Exam - General 1994 Cardiovascular extremities Overall: no clubbing 12/19/2015 None Full Exam - General 1994 Cardiovascular auscultation of heart Overall: regular rate 12/19/2015 None Full Exam - General 1994 Cardiovascular auscultation of heart Overall: normal heart sounds 12/19/2015 None Full Exam - General 1994 Cardiovascular auscultation of heart Overall: no murmurs 12/19/2015 None Full Exam - General 1994 Abdomen abdominal exam Overall: no tenderness 12/19/2015 None Full Exam - General 1994 Abdomen abdominal exam Overall: normal bowel sounds 12/19/2015 None Full Exam - General 1994 Lymphatic neck nodes Overall: anterior cervical chain benign 12/19/2015 None Full Exam - General 1994 Lymphatic neck nodes Overall: posterior cervical chain benign 12/19/2015 None Full Exam - General 1994 Musculoskeletal spine, ribs and pelvis Overall: spine benign 12/19/2015 None Full Exam - General 1994 Musculoskeletal spine, ribs and pelvis Overall: sacroiliac joint benign 12/19/2015 None Full Exam - General 1994 Musculoskeletal spine, ribs and pelvis Overall: good posture 12/19/2015 None Full Exam - General 1994 Musculoskeletal gait and station Overall: normal gait 12/19/2015 None Full Exam - General 1994 Musculoskeletal gait and station Overall: normal station 12/19/2015 None Full Exam - General 1994 Musculoskeletal head and neck Overall: head atraumatic 12/19/2015 None Full Exam - General 1994 Musculoskeletal head and neck Overall: cervical spine benign 12/19/2015 None Full Exam - General 1994 Integument inspection of skin Overall: few scattered moles, no gross abnormalities 12/19/2015 None Full Exam - General 1994 Integument inspection of skin Overall: no rash, lesions 12/19/2015 None Full Exam - General 1994 Neurologic deep tendon reflexes Overall: deep tendon reflexes intact 12/19/2015 None Full Exam - General 1994 Neurologic cranial nerves Overall: crainial nerves 2 - 12 grossly intact 12/19/2015 None Full Exam - General 1994 Psychiatric orientation/consciousness Overall: oriented to person, place and time 12/19/2015 None Full Exam - General 1994 Psychiatric mood and affect Mood: depressed 12/19/2015 None Full Exam - General 1994 Psychiatric mood and affect Mood: anxious 12/19/2015 None Full Exam - General 1994 Psychiatric mood and affect Affect: mood congruent 12/19/2015 None Full Exam - General 1994 Psychiatric mood and affect Appropriateness: appropriate emotional responses 12/19/2015 None Full Exam - General 1994 Constitutional general appearance Development: well developed 03/06/2015 None Full Exam - General 1994 Constitutional general appearance Development: appears stated age 0603/06/2015 None Full Exam - General 1994 Constitutional general appearance Hygiene/Attention to Grooming: good hygiene 03/06/2015 None Full Exam - General 1994 Eyes conjunctiva /eyelids Overall: conjunctiva clear 03/06/2015 None Full Exam - General 1994 Eyes conjunctiva /eyelids Overall: cornea clear 03/06/2015 None Full Exam - General 1994 Eyes conjunctiva /eyelids Overall: eyelids normal 03/06/2015 None Full Exam - General 1994 Eyes pupils and irises Overall: pupils equal, round, reactive to light and accomodation 03/06/2015 None Full Exam - General 1994 Ears/Nose/Throat otoscopic exam Overall: external auditory canals clear 03/06/2015 None Full Exam - General 1994 Ears/Nose/Throat lips/teeth/gingiva Overall: benign lips 03/06/2015 None Full Exam - General 1994 Ears/Nose/Throat lips/teeth/gingiva Overall: normal dentition 03/06/2015 None Full Exam - General 1994 Ears/Nose/Throat oral cavity/pharynx/larynx Overall: oral mucosa clear 03/06/2015 None Full Exam - General 1994 Ears/Nose/Throat oral cavity/pharynx/larynx Overall: oropharyngeal mucosa clear 03/06/2015 None Full Exam - General 1994 Ears/Nose/Throat oral cavity/pharynx/larynx Overall: hypopharynx benign 03/06/2015 None Full Exam - General 1994 Ears/Nose/Throat oral cavity/pharynx/larynx Overall: no masses 03/06/2015 None Full Exam - General 1994 Respiratory auscultation Overall: breath sounds clear bilaterally 03/06/2015 None Full Exam - General 1994 Respiratory respiratory effort/rhythm Overall: no retractions 03/06/2015 None Full Exam - General 1994 Respiratory respiratory effort/rhythm Overall: normal rate 03/06/2015 None Full Exam - General 1994 Cardiovascular extremities Overall: no clubbing 03/06/2015 None Full Exam - General 1994 Cardiovascular auscultation of heart Overall: regular rate 03/06/2015 None Full Exam - General 1994 Cardiovascular auscultation of heart Overall: normal heart sounds 03/06/2015 None Full Exam - General 1994 Abdomen abdominal exam Overall: no tenderness 03/06/2015 None Full Exam - General 1994 Abdomen abdominal exam Overall: normal bowel sounds 03/06/2015 None Full Exam - General 1994 Lymphatic neck nodes Overall: anterior cervical chain benign 03/06/2015 None Full Exam - General 1994 Lymphatic neck nodes Overall: posterior cervical chain benign 03/06/2015 None Full Exam - General 1994 Musculoskeletal spine, ribs and pelvis Overall: spine benign 03/06/2015 None Full Exam - General 1994 Musculoskeletal spine, ribs and pelvis Overall: sacroiliac joint benign 03/06/2015 None Full Exam - General 1994 Musculoskeletal spine, ribs and pelvis Overall: good posture 03/06/2015 None Full Exam - General 1994 Musculoskeletal head and neck Overall: head atraumatic 03/06/2015 None Full Exam - General 1994 Musculoskeletal head and neck Overall: cervical spine benign 03/06/2015 None Full Exam - General 1994 Integument inspection of skin Overall: few scattered moles, no gross abnormalities 03/06/2015 None Full Exam - General 1994 Neurologic deep tendon reflexes Overall: deep tendon reflexes intact 03/06/2015 None Full Exam - General 1994 Neurologic cranial nerves Overall: crainial nerves 2 - 12 grossly intact 03/06/2015 None Full Exam - General 1994 Psychiatric orientation/consciousness Overall: oriented to person, place and time 03/06/2015 None Full Exam - General 1994 Psychiatric mood and affect Overall: normal mood and affect 03/06/2015 None Full Exam - General 1994 Constitutional general appearance Overall: in no acute distress 03/06/2015 None Full Exam - General 1994 Constitutional general appearance Nourishment: thin 03/06/2015 None Full Exam - General 1994 Respiratory auscultation Basilar: diminished 03/06/2015 None Full Exam - General 1994 Cardiovascular auscultation of heart Overall: no murmurs 03/06/2015 None Full Exam - General 1994 Musculoskeletal gait and station Overall: normal gait 03/06/2015 None Full Exam - General 1994 Musculoskeletal gait and station Overall: normal station 03/06/2015 None Full Exam - General 1994 Integument inspection of skin Overall: no rash, lesions 03/06/2015 None Full Exam - General 1994 Ears/Nose/Throat otoscopic exam Tympanic membrane: air- fluid level 03/06/2015 None Full Exam - General 1994 Ears/Nose/Throat otoscopic exam Tympanic membrane: a normal exam 03/06/2015 None Full Exam - General 1994 Constitutional general appearance Overall: well developed 02/07/2015 None Full Exam - General 1994 Constitutional general appearance Overall: in no acute distress 02/07/2015 None Full Exam - General 1994 Constitutional general appearance Nourishment: thin 02/07/2015 None Full Exam - General 1994 Psychiatric orientation/consciousness Overall: oriented to person, place and time 02/07/2015 None Full Exam - General 1994 Neurologic cranial nerves Overall: crainial nerves 2 - 12 grossly intact 02/07/2015 None Full Exam - General 1994 Integument inspection of skin Overall: no rash, lesions 02/07/2015 None Full Exam - General 1994 Musculoskeletal gait and station Overall: normal station 02/07/2015 None Full Exam - General 1994 Musculoskeletal gait and station Overall: normal gait 02/07/2015 None Full Exam - General 1994 Abdomen abdominal exam Overall: no tenderness 02/07/2015 None Full Exam - General 1994 Abdomen abdominal exam Overall: normal bowel sounds 02/07/2015 None Full Exam - General 1994 Cardiovascular extremities Overall: no clubbing 02/07/2015 None Full Exam - General 1994 Cardiovascular auscultation of heart Overall: regular rate 02/07/2015 None Full Exam - General 1994 Cardiovascular auscultation of heart Overall: normal heart sounds 02/07/2015 None Full Exam - General 1994 Cardiovascular auscultation of heart Overall: no murmurs 02/07/2015 None Full Exam - General 1994 Respiratory auscultation Overall: breath sounds clear bilaterally 02/07/2015 None Full Exam - General 1994 Respiratory respiratory effort/rhythm Overall: normal rate 02/07/2015 None Full Exam - General 1994 Respiratory respiratory effort/rhythm Overall: no retractions 02/07/2015 None Full Exam - General 1994 Ears/Nose/Throat otoscopic exam Overall: tympanic membranes clear 02/07/2015 None Full Exam - General 1994 Ears/Nose/Throat otoscopic exam Overall: external auditory canals clear 02/07/2015 None Full Exam - General 1994 Ears/Nose/Throat oral cavity/pharynx/larynx Overall: oropharyngeal mucosa clear 02/07/2015 None Full Exam - General 1994 Ears/Nose/Throat oral cavity/pharynx/larynx Overall: no masses 02/07/2015 None Full Exam - General 1994 Ears/Nose/Throat oral cavity/pharynx/larynx Overall: oral mucosa clear 02/07/2015 None Full Exam - General 1994 Eyes conjunctiva /eyelids Overall: conjunctiva clear 02/07/2015 None Full Exam - General 1994 Eyes conjunctiva /eyelids Overall: eyelids normal 02/07/2015 None Full Exam - General 1994 Eyes conjunctiva /eyelids Overall: cornea clear 02/07/2015 None Full Exam - General 1994 Eyes pupils and irises Overall: pupils equal, round, reactive to light and accomodation 02/07/2015 None Full Exam - General 1994 Respiratory auscultation Basilar: diminished 02/07/2015 None Procedures Procedure Codes Date TRIAMCINOLONE ACET INJ NOS CPT-4: J3301 10/16/2017 DRAIN/INJECT JOINT/BURSA CPT-4: 13834 10/16/2017 PRESCRIP TRANSMIT VIA ERX SY CPT-4: G8553 05/05/2017 PRESCRIP TRANSMIT VIA ERX SY CPT-4: G8553 01/14/2017 PPPS, SUBSEQ VISIT CPT -4: G0439 12/12/2016 PRESCRIP TRANSMIT VIA ERX SY CPT-4: G8553 10/15/2016 ADMIN PNEUMOCOCCAL VACCINE SNOMED CT: [id number] CPT-4: G0009 08/28/2016 Pneumococcal Polysaccharide Vaccine, 23-Valent, Ad CPT-4: 41054 08/28/2016 PRESCRIP TRANSMIT VIA ERX SY CPT-4: G8553 03/14/2016 PRESCRIP TRANSMIT VIA ERX SY CPT-4: G8553 12/19/2015 THER/PROPH/DIAG INJ SC/IM CPT-4: 48680 02/07/2015 TRIAMCINOLONE ACET INJ NOS CPT-4: J3301 02/07/2015 Vital Signs Date Vital 10/16/2017 Blood Pressure 1: 142/88 Code : 8480-6 BMI: 25.5 Code : 05535-7 Heart Rate 1 : 63 bpm Height: 5'1" SpO2: 97% Weight: 135 lbs 09/03/2017 Blood Pressure 1: 144/90 Code : 8480-6 BMI: 26.3 Code : 24952-0 Heart Rate 1 : 91 bpm Height: 5'1" SpO2: 96% Weight: 139 lbs 07/31/2017 Blood Pressure 1: 136/90 Code : 8480-6 BMI: 26.3 Code : 29598-1 Height: 5'1" Weight: 139 lbs 07/18/2017 Blood Pressure 1: 136/84 Code : 8480-6 06/16/2017 Blood Pressure 1: 136/84 Code : 8480-6 BMI: 26.5 Code : 21984-3 Heart Rate 1 : 72 bpm Height: 5'1" SpO2: 97% Weight: 140 lbs 05/28/2017 Blood Pressure 1: 138/78 Code : 8480-6 BMI: 26.1 Code : 10824-4 Heart Rate 1 : 70 bpm Height: 5'1" SpO2: 98% Weight: 138 lbs 05/05/2017 Blood Pressure 1: 140/86 Code : 8480-6 BMI: 25.3 Code : 74768-1 Heart Rate 1 : 66 bpm Height: 5'1" SpO2: 99% Weight: 134 lbs 03/13/2017 Blood Pressure 1: 126/74 Code : 8480-6 BMI: 25.3 Code : 47846-2 Heart Rate 1 : 73 bpm Height: 5'1" SpO2: 98% Weight: 134 lbs 02/10/2017 Blood Pressure 1: 148/88 Code : 8480-6 BMI: 25.9 Code : 36613-1 Heart Rate 1 : 84 bpm Height: 5'1" SpO2: 97% Weight: 137 lbs 01/14/2017 Blood Pressure 1: 134/86 Code : 8480-6 BMI: 25.7 Code : 39814-3 Heart Rate 1 : 83 bpm Height: 5'1" SpO2: 95% Weight: 136 lbs 01/07/2017 Blood Pressure 1: 136/88 Code : 8480-6 BMI: 25.1 Code : 72805-0 Heart Rate 1 : 86 bpm Height: 5'1" SpO2: 94% Weight: 133 lbs 01/02/2017 Blood Pressure 1: 122/68 Code : 8480-6 Blood Pressure 2: 116/78 Code: 8480-6 01/01/2017 Blood Pressure 1: 90/52 Code : 8480-6 BMI: 25.1 Code : 87411-8 Heart Rate 1 : 86 bpm Height: 5'1" SpO2: 99% Weight: 133 lbs 12/20/2016 Blood Pressure 1: 120/76 Code : 8480-6 12/12/2016 Blood Pressure 1: 130/72 Code : 8480-6 BMI: 24.8 Code : 33062-8 Heart Rate 1 : 62 bpm Height: 5'1" SpO2: 98% Waist Measure (cm): 79 cm Weight: 131 lbs 12/11/2016 Blood Pressure 1: 132/70 Code : 8480-6 BMI: 24.8 Code : 45301-3 Heart Rate 1 : 60 bpm Height: 5'1" Weight: 131 lbs 10/15/2016 Blood Pressure 1: 108/66 Code : 8480-6 BMI: 24.8 Code : 70375-1 Heart Rate 1 : 60 bpm Height: 5'1" Weight: 131 lbs 07/17/2016 Blood Pressure 1: 128/82 Code : 8480-6 BMI: 25.3 Code : 81109-2 Heart Rate 1 : 50 bpm Height: 5'2" Weight: 136 lbs 05/15/2016 Blood Pressure 1: 108/70 Code : 8480-6 BMI: 23.4 Code : 96539-3 Heart Rate 1 : 54 bpm Height: 5'2" SpO2: 96% Weight: 126 lbs 04/23/2016 Blood Pressure 1: 112/60 Code : 8480-6 BMI: 23.6 Code : 92194-8 Heart Rate 1 : 92 bpm Height: 5'2" SpO2: 95% Weight: 127 lbs 03/14/2016 Blood Pressure 1: 118/74 Code : 8480-6 BMI: 24.0 Code : 56807-3 Heart Rate 1 : 51 bpm Height: 5'2" SpO2: 94% Temperature: 36.8 (C) / 98.3 (F) Weight: 129 lbs 02/19/2016 Blood Pressure 1: 110/62 Code : 8480-6 BMI: 23.4 Code : 92502-1 Heart Rate 1 : 74 bpm Height: 5'2" SpO2: 97% Weight: 126 lbs 12/19/2015 Blood Pressure 1: 108/74 Code : 8480-6 BMI: 23.6 Code : 38563-6 Heart Rate 1 : 52 bpm Height: 5'2" Weight: 127 lbs 03/06/2015 Blood Pressure 1: 136/88 Code : 8480-6 Heart Rate 1: 64 bpm Weight: 129 lbs 02/07/2015 Blood Pressure 1: 142/90 Code : 8480-6 BMI: 24.5 Code : 75501-5 Heart Rate 1 : 82 bpm Height: 5'2" Weight: 132 lbs Functional Status No Functional Status data History of Present Illness Symptom Name Status Result Effective Date Notes Hospital Follow Up _ Other: gallstones 10/16/2017 None Hospital Follow Up Quality acute illness 10/16/2017 None Hospital Follow Up Location abdominal pain 10/16/2017 None Hospital Follow Up Pertinent Findings Other: gallstones 10/16/2017 None Hospital Follow Up Pertinent Findings pain 10/16/2017 None Hospital Follow Up Pertinent Findings fever 10/16/2017 None back pain Location thoracic spine 10/16/2017 None back pain Quality aching 10/16/2017 None back pain Onset of Symptom 2 weeks ago 10/16/2017 None back pain Frequency of Episodes daily 10/16/2017 None back pain Quality improving 10/16/2017 None back pain Onset and Resolution ongoing 10/16/2017 None back pain Location thoracic spine 09/03/2017 None back pain Quality aching 09/03/2017 None back pain Quality sharp 09/03/2017 None back pain Quality constant 09/03/2017 None back pain Onset and Resolution sudden in onset 09/03/2017 None back pain Onset of Symptom 2 weeks ago 09/03/2017 None back pain Frequency of Episodes daily 09/03/2017 None Hospital Follow Up Quality acute illness 07/31/2017 None Hospital Follow Up Location abdominal pain 07/31/2017 None Hospital Follow Up _ Other: gallstones 07/31/2017 None Hospital Follow Up Pertinent Findings pain 07/31/2017 None Hospital Follow Up Pertinent Findings fever 07/31/2017 None Hospital Follow Up Pertinent Findings Other: gallstones 07/31/2017 None knee pain Location on the left 06/16/2017 None knee pain Quality throbbing 06/16/2017 None knee pain Quality acute 06/16/2017 None knee pain Pertinent Findings swelling 06/16/2017 None knee pain Pertinent Findings decreased range of motion 06/16/2017 None knee pain Pertinent Findings pain with movement 06/16/2017 None knee pain Pertinent Findings stiffness 06/16/2017 None knee pain Pertinent Findings limping 06/16/2017 None knee pain Alleviating Factors elevation 06/16/2017 None knee pain Alleviating Factors NSAID's 06/16/2017 None knee pain Exacerbating Factors extension of the knee 06/16/2017 None knee pain Exacerbating Factors flexion of the knee 06/16/2017 None knee pain Exacerbating Factors weight bearing 06/16/2017 None knee pain Exacerbating Factors exertion 06/16/2017 None knee pain Severity moderate 06/16/2017 None knee pain Significant Medications NSAID' s 06/16/2017 None knee pain Mechanism of injury direct trauma 06/16/2017 None knee pain Onset of Symptom 201606/16/2017 None hypertension Onset and Resolution ongoing 05/28/2017 None hypertension Onset of Symptom during adulthood 05/28/2017 None Hospital Follow Up _ Other: fall 05/28/2017 None sinus congestion Quality pressure 05/05/2017 None sinus congestion Quality fullness 05/05/2017 None sinus congestion Onset and Resolution sudden in onset 05/05/2017 None sinus congestion Onset of Symptom 1 weeks ago 05/05/2017 None headache Location diffusely 05/05/2017 None headache Quality intermittent 05/05/2017 None headache Quality pressure 05/05/2017 None headache Onset and Resolution sudden in onset 05/05/2017 None headache Onset of Symptom 1 weeks ago 05/05/2017 None headache Frequency of Episodes daily 05/05/2017 None headache Pertinent Findings dizziness 05/05/2017 None headache Pertinent Findings lightheadedness 05/05/2017 None hypertension Quality intermittent 03/13/2017 None hypertension Quality primary hypertension 03/13/2017 None hypertension Onset and Resolution ongoing 03/13/2017 None hypertension Onset of Symptom during adulthood 03/13/2017 None hypertension Alleviating Factors medication 03/13/2017 None hypertension Pertinent Findings decreased energy 03/13/2017 None hypertension Pertinent Findings Denies dizziness 03/13/2017 None hypertension Pertinent Findings Denies dyspnea 03/13/2017 None hypertension Pertinent Findings edema 03/13/2017 None depression Quality chronic 03/13/2017 None depression Onset and Resolution ongoing 03/13/2017 None depression Onset of Symptom during adulthood 03/13/2017 None depression Alleviating Factors medication 03/13/2017 None hypertension Blood Pressure Values patient checking blood pressure at home - did not bring in readings 03/13/2017 None diarrhea Quality intermittent 03/13/2017 None diarrhea Exacerbating Factors medication 03/13/2017 None hypertension Quality intermittent 02/10/2017 None hypertension Onset and Resolution ongoing 02/10/2017 None hypertension Onset of Symptom during adulthood 02/10/2017 None hypertension Blood Pressure Values pt checking blood pressure - see scanned document 02/10/2017 None hypertension Alleviating Factors medication 02/10/2017 None hypertension Pertinent Findings dizziness 02/10/2017 None hypertension Pertinent Findings Denies dyspnea 02/10/2017 None hypertension Pertinent Findings edema 02/10/2017 None hypertension Quality primary hypertension 02/10/2017 None hypertension Pertinent Findings decreased energy 02/10/2017 None depression Quality chronic 02/10/2017 None depression Onset and Resolution ongoing 02/10/2017 None depression Onset of Symptom during adulthood 02/10/2017 None depression Alleviating Factors medication 02/10/2017 None hypertension Onset and Resolution ongoing 01/14/2017 None hypertension Onset of Symptom during adulthood 01/14/2017 None hypertension Alleviating Factors medication 01/14/2017 None hypertension Pertinent Findings Denies dizziness 01/14/2017 None hypertension Pertinent Findings Denies dyspnea 01/14/2017 None hypertension Pertinent Findings edema 01/14/2017 None hypertension Blood Pressure Values pt checking blood pressure - see scanned document 01/14/2017 None hypertension Quality intermittent 01/14/2017 None fatigue Limitation on Activities moderately limits activities 01/07/2017 None fatigue Pertinent Findings Denies fever 01/07/2017 None fatigue Pertinent Findings cough 01/07/2017 None fatigue Quality acute 01/07/2017 None headache Location diffusely 01/07/2017 None headache Quality acute 01/07/2017 None headache Onset and Resolution sudden in onset 01/07/2017 None headache Pertinent Findings Denies facial weakness 01/07/2017 None palpitations Quality awareness of heartbeat 01/07/2017 None palpitations Onset and Resolution gradual in onset 01/07/2017 None palpitations Pertinent Findings Denies nausea 01/07/2017 None shortness of breath Quality breathlessness 01/01/2017 None shortness of breath Onset and Resolution gradual in onset 01/01/2017 None shortness of breath Onset of Symptom _ months ago 01/01/2017 None fatigue Limitation on Activities does not limit activities 01/01/2017 None fatigue Onset of Symptom _ months ago 01/01/2017 None fatigue Frequency of Episodes daily 01/01/2017 None Annual Medicare Wellness Exam Alcohol Use does not drink any alcohol 12/12/2016 None Annual Medicare Wellness Exam Aspirin Use yes 12/12/2016 None Annual Medicare Wellness Exam Blood Glucose (self reported) don't know 12/12/2016 None Annual Medicare Wellness Exam Blood Pressure (self reported ) borderline (120/80 - 139/89) 12/12/2016 None Annual Medicare Wellness Exam Cholesterol (self reported) don't know 12/12/2016 None Annual Medicare Wellness Exam Depression (last 6 months) some of the time 12/12/2016 None Annual Medicare Wellness Exam Depression or Hopelessness some of the time 12/12/2016 None Annual Medicare Wellness Exam Describe Your Health good 12/12/2016 None Annual Medicare Wellness Exam Exercise Habits does not exercise 12/12/2016 None Annual Medicare Wellness Exam Exercise Habits exercises 7 days per week 12/12/2016 None Annual Medicare Wellness Exam Exercise Habits exercises 60 minutes per day 12/12/2016 None Annual Medicare Wellness Exam Handling Stress usually jazmyne effectively 12/12/2016 None Annual Medicare Wellness Exam Hemaglobin A-1C (self reported ) don't know 12/12/2016 None Annual Medicare Wellness Exam Hours of Sleep 7 12/12/2016 None Annual Medicare Wellness Exam Interaction with Friends yes 12/12/2016 None Annual Medicare Wellness Exam Interests & Pleasure almost all of the time 12/12/2016 None Annual Medicare Wellness Exam Life Satisfaction very satisfied 12/12/2016 None Annual Medicare Wellness Exam Motor Vehicle Safety always fastens seat belt: y 12/12/2016 None Annual Medicare Wellness Exam Motor Vehicle Safety drives after drinking: nn 12/12/2016 None Annual Medicare Wellness Exam Motor Vehicle Safety rides with someone who has been drinking: n 2016 None Annual Medicare Wellness Exam Nutrition servings of fried food / high fat foods per day: 1 2016 None Annual Medicare Wellness Exam Nutrition servings of high fiber / whole grain per day: 2 12/12/2016 None Annual Medicare Wellness Exam Nutrition servings of vegetables / fruit per day: 3 12/12/2016 None Annual Medicare Wellness Exam Smoking and Tobacco Use non smoker 12/12/2016 None Annual Medicare Wellness Exam Social & Emotional Support always 12/12/2016 None Annual Medicare Wellness Exam Stress some of the time 12/12/2016 None Annual Medicare Wellness Exam Sun Exposure protects skin when outdoors: y 12/12/2016 None hypertension Onset and Resolution ongoing 12/11/2016 None hypertension Onset of Symptom during adulthood 12/11/2016 None hypertension Alleviating Factors medication 12/11/2016 None hypertension Pertinent Findings Denies dyspnea 12/11/2016 None hypertension Pertinent Findings edema 12/11/2016 None hypertension Blood Pressure Values patient checking blood pressure at home - did not bring in readings 12/11/2016 None hypertension Exacerbating Factors stress 12/11/2016 None gait abnormality Quality intermittent 12/11/2016 None gait abnormality Quality unsteady 12/11/2016 None gait abnormality Onset and Resolution ongoing 12/11/2016 None headache Quality intermittent 12/11/2016 None headache Quality acute 12/11/2016 None headache Onset and Resolution ongoing 12/11/2016 None headache Onset of Symptom 2 months ago 12/11/2016 None headache Triggers no known associated factors 12/11/2016 None headache Timing of Episodes in the morning 12/11/2016 None headache Timing of Episodes upon awakening 12/11/2016 None gastroesophageal reflux Onset and Resolution ongoing 12/11/2016 None gastroesophageal reflux Alleviating Factors proton pump inhibitor 12/11/2016 None gastroesophageal reflux Triggers meals 12/11/2016 None gastroesophageal reflux Quality heartburn 12/11/2016 None gastroesophageal reflux Quality intermittent 12/11/2016 None hypertension Onset and Resolution ongoing 10/15/2016 None hypertension Onset of Symptom during adulthood 10/15/2016 None hypertension Blood Pressure Values not checking blood pressure at home 10/15/2016 None hypertension Alleviating Factors medication 10/15/2016 None hypertension Pertinent Findings Denies dizziness 10/15/2016 None hypertension Pertinent Findings dyspnea 10/15/2016 at night hypertension Pertinent Findings Denies edema 10/15/2016 None muscle weakness Quality lower extremities 10/15/2016 None muscle weakness Onset and Resolution resolved 10/15/2016 None hypertension Onset and Resolution ongoing 07/17/2016 None hypertension Onset of Symptom during adulthood 07/17/2016 None muscle weakness Quality lower extremities 07/17/2016 None hypertension Blood Pressure Values not checking blood pressure at home 07/17/2016 None hypertension Alleviating Factors medication 07/17/2016 None hypertension Pertinent Findings Denies dizziness 07/17/2016 None hypertension Pertinent Findings Denies dyspnea 07/17/2016 None hypertension Pertinent Findings Denies edema 07/17/2016 None muscle weakness Onset and Resolution ongoing 07/17/2016 None cough Quality acute None cough Quality intermittent 05/15/2016 None cough Quality interrupts sleep 05/15/2016 None cough Onset and Resolution sudden in onset 05/15/2016 None cough Onset of Symptom 2 days ago 05/15/2016 None cough Pertinent Findings Denies chills 05/15/2016 None cough Pertinent Findings Denies fever 05/15/2016 None hip pain Location on the right 05/15/2016 None hip pain Quality intermittent 05/15/2016 None hip pain Quality acute 05/15/2016 since her fall hip pain Location on the left 05/15/2016 -very mild hip pain Exacerbating Factors activity 05/15/2016 None hip pain Alleviating Factors rest 05/15/2016 None hip pain Alleviating Factors non weight bearing 05/15/2016 None hip pain Location on the left 04/23/2016 None hip pain Quality constant 04/23/2016 None hip pain Onset and Resolution sudden in onset 04/23/2016 None hip pain Onset of Symptom 4 days ago 04/23/2016 None hip pain Limitation on Activities allows ambulation with assistance 04/23/2016 None hip pain Limitation on Activities moderately limits activities 04/23/2016 None hip pain Assistive devices walker 04/23/2016 None hypertension Onset and Resolution ongoing 04/23/2016 None hypertension Onset of Symptom during adulthood 04/23/2016 None cough Location in the lung 03/14/2016 None cough Quality constant 03/14/2016 None cough Quality hacking 03/14/2016 None cough Quality productive 03/14/2016 None cough Onset and Resolution sudden in onset 03/14/2016 None cough Onset of Symptom 1 weeks ago 03/14/2016 None cough Frequency of Episodes daily 03/14/2016 None chest congestion Quality constant 03/14/2016 None chest congestion Onset and Resolution sudden in onset 03/14/2016 None chest congestion Onset of Symptom 1 weeks ago 03/14/2016 None chest congestion Pertinent Findings cough 03/14/2016 None chest congestion Pertinent Findings sputum production 03/14/2016 None flank pain Location on the left 02/19/2016 None flank pain Radiating the back 02/19/2016 None flank pain Quality aching 02/19/2016 None flank pain Quality burning 02/19/2016 None flank pain Quality cramping 02/19/2016 None flank pain Quality constant 02/19/2016 None flank pain Onset and Resolution sudden in onset 02/19/2016 None flank pain Pertinent Findings back pain 02/19/2016 None flank pain Pertinent Findings bladder pain 02/19/2016 None flank pain Pertinent Findings nocturia 02/19/2016 None flank pain Pertinent Findings urinary urgency 02/19/2016 None hypertension Quality chronic 12/19/2015 None hypertension Onset and Resolution ongoing 12/19/2015 None hypertension Onset of Symptom during adulthood 12/19/2015 None hypertension Blood Pressure Values not checking blood pressure at home 12/19/2015 None hypertension Pertinent Findings dizziness 12/19/2015 when she goes to lay in bed at night- will make her nauseated hypertension Alleviating Factors medication 12/19/2015 None hypertension Pertinent Findings Denies dyspnea 12/19/2015 None hypertension Pertinent Findings Denies edema 12/19/2015 None gastroesophageal reflux Onset and Resolution ongoing 12/19/2015 None gastroesophageal reflux Alleviating Factors proton pump inhibitor 12/19/2015 None gastroesophageal reflux Exacerbating Factors eating 12/19/2015 None nasal discharge Location in both nares 12/19/2015 None nasal discharge Quality constant 12/19/2015 None nasal discharge Quality clear 12/19/2015 None nasal discharge Onset and Resolution ongoing 12/19/2015 None nasal discharge Pertinent Findings Denies hoarseness 12/19/2015 None hypertension Quality chronic 03/06/2015 None hypertension Onset and Resolution ongoing 03/06/2015 None hypertension Onset of Symptom during adulthood 03/06/2015 None hypertension Blood Pressure Values patient checking blood pressure at home - did not bring in readings 03/06/2015 usually 140/90mmHg sore throat Location diffusely 03/06/2015 None sore throat Quality aching 03/06/2015 None sore throat Quality improving 03/06/2015 None sore throat Triggers swallowing 03/06/2015 None gastroesophageal reflux Onset and Resolution ongoing 02/07/2015 None gastroesophageal reflux Severity severe 02/07/2015 None gastroesophageal reflux Onset of Symptom _ years ago 02/07/2015 None gastroesophageal reflux Pertinent Findings Denies cough 02/07/2015 None gastroesophageal reflux Quality chronic 02/07/2015 None gastroesophageal reflux Frequency of Episodes increasing 02/07/2015 None gastroesophageal reflux Significant Medications antacids 02/07/2015 None gastroesophageal reflux Diet includes spicy foods 02/07/2015 None hypertension Quality chronic 02/07/2015 None hypertension Onset and Resolution ongoing 02/07/2015 None hypertension Onset of Symptom during adulthood 02/07/2015 None hypertension Blood Pressure Values patient checking blood pressure at home - did not bring in readings 02/07/2015 None hypertension Severity not consistently severe symptoms, the symptoms fluctuate from no symptoms to anxiety and headaches 02/07/2015 None hypertension Frequency of Episodes unchanged 02/07/2015 None hypertension Significant Family History heart disease 02/07/2015 None hypertension Alleviating Factors medication 02/07/2015 None Advance Directives No Advance Directive data Encounters Encounter Performer Location Codes Date EST. PATIENT, LEVEL IV Diagnosis: Essential (primary) hypertension[ICD10: I10] Diagnosis: Other emphysema[ICD10: J43.8] Diagnosis: Dependence on supplemental oxygen[ICD10: Z99.81] Diagnosis: Hypoxemia[ICD10: R09.02] Diagnosis: Pain in left knee[ICD10: M25.562] Diagnosis: Effusion, left knee[ICD10: M25.462] [facility] CPT-4: 32251 10/16/2017 [id number] EST. PATIENT, LEVEL III Diagnosis: Pain in thoracic spine[ICD10: M54.6] [facility] CPT-4: 90249 09/03/2017 [id number] EST. PATIENT, LEVEL III Diagnosis: Essential (primary) hypertension[ICD10: I10] Diagnosis: Other emphysema[ICD10: J43.8] Kim Burden MD [facility] CPT- 4: 63966 07/31/2017 ([id number]) Miscellaneous no charge Diagnosis: Essential (primary) hypertension[ICD10: I10] Mallorie Burden MD [facility] CPT-4: 32451 07/18/2017 ([id number]) [id number] EST. PATIENT, LEVEL III Diagnosis: Pain in left knee[ICD10: M25.562] Diagnosis: Effusion, left knee[ICD10: M25.462] Mallorie Burden MD [facility] CPT-4: 96843 06/16/2017 ([id number]) 30084 EST. PATIENT, LEVEL III Diagnosis: Essential (primary) hypertension[ICD10: I10] Diagnosis: Unsteadiness on feet[ICD10: R26.81] Kim Burden MD [facility] CPT-4: 11325 05/28/2017 ([id number]) [id number] EST. PATIENT, LEVEL IV Diagnosis: Essential (primary) hypertension[ICD10: I10] Diagnosis: Chronic obstructive pulmonary disease with acute lower respiratory infection[ICD10: J44.0] Kim Burden MD [facility] CPT-4: 47612 05/05/2017 ([id number]) [id number] EST. PATIENT, LEVEL IV Diagnosis: Essential (primary) hypertension[ICD10: I10] Diagnosis: Major depressive disorder, recurrent, mild[ICD10: F33.0] Kim Burden MD [facility] CPT-4: 99738 03/13/2017 ([id number]) [id number] EST. PATIENT, LEVEL IV Diagnosis: Essential (primary) hypertension[ICD10: I10] Diagnosis: Gastro-esophageal reflux disease without esophagitis[ICD10: K21.9] Diagnosis: Chronic obstructive pulmonary disease, unspecified[ICD10: J44.9] Kim Burden MD [facility] CPT-4: 35697 02/10/2017 ([id number]) [id number] EST. PATIENT, LEVEL IV Diagnosis: Essential (primary) hypertension[ICD10: I10] Diagnosis: Gastro-esophageal reflux disease without esophagitis[ICD10: K21.9] Diagnosis: Chronic obstructive pulmonary disease with acute lower respiratory infection[ICD10: J44.0] Kim Burden MD [facility] CPT-4: 73989 01/14/2017 [id number] EST. PATIENT, LEVEL IV Diagnosis: Other fatigue[ICD10: R53.83] Diagnosis: Other malaise[ICD10: R53.81] Diagnosis: Headache[ICD10: R51] Diagnosis: Palpitations[ICD10: R00.2] Diagnosis: Dehydration[ICD10: E86.0] Pebbles Burden MD, [facility] CPT-4: 66616 01/07/2017 ([id number]) Miscellaneous no charge Diagnosis: Essential (primary) hypertension[ICD10: I10] Pebbles Burden MD, [facility] CPT-4: 83393 01/02/2017 [id number] EST. PATIENT, LEVEL IV Diagnosis: Chronic obstructive pulmonary disease, unspecified[ICD10: J44.9] Diagnosis: Essential (primary) hypertension[ICD10: I10] Diagnosis: Other fatigue[ICD10: R53.83] Pebbles Burden MD, [facility] CPT-4 : 21552 01/01/2017 ([id number]) Miscellaneous no charge Diagnosis: Essential (primary) hypertension[ICD10: I10] Pebbles Burden MD, [facility] CPT-4: 00256 12/20/2016 ([id number]) [id number] EST. PATIENT, LEVEL IV Diagnosis: Essential (primary) hypertension[ICD10: I10] Diagnosis: Major depressive disorder, recurrent, mild[ICD10: F33.0] Diagnosis: Headache[ICD10: R51] Diagnosis: Other fatigue[ICD10: R53.83] Kim Burden MD, [facility] CPT- 4: 82919 12/11/2016 ([id number]) 91569 EST. PATIENT, LEVEL IV Diagnosis: Essential (primary) hypertension[ICD10: I10] Diagnosis: Other allergic rhinitis[ICD10: J30.89] Diagnosis: Gastro-esophageal reflux disease without esophagitis[ICD10: K21.9] Kim Burden MD, [facility] CPT-4: 87379 10/15/2016 ([id number]) 22724 EST. PATIENT, LEVEL III Diagnosis: Essential (primary) hypertension[ICD10: I10] Diagnosis: Major depressive disorder, recurrent, mild[ICD10: F33.0] Kim Burden MD, [facility] CPT-4: 26876 07/17/2016 ([id number]) 31781 EST. PATIENT, LEVEL III Diagnosis: Pain in left hip[ICD10: M25.552] Diagnosis: Acute laryngopharyngitis[ICD10: J06.0] Kim Burden MD [facility] CPT-4: 94283 05/15/2016 ([id number]) 01591 EST. PATIENT, LEVEL III Diagnosis: Fracture of unspecified parts of lumbosacral spine and pelvis, initial encounter for closed fracture[ICD10: S32.9XXA] Diagnosis: Essential (primary) hypertension[ICD10: I10] Kim Burden MD, [facility] CPT-4: 86087 04/23/2016 [id number] EST. PATIENT, LEVEL IV Diagnosis: Acute laryngopharyngitis[ICD10: J06.0] Diagnosis: Other allergic rhinitis[ICD10: J30.89] Pebbles Burden MD, [facility] CPT-4: 80705 03/14/2016 [id number] EST. PATIENT, LEVEL IV Diagnosis: Dysuria[ICD10: R30.0] Diagnosis: Left lower quadrant pain[ICD10: R10.32] Pebbles Burden MD, [facility] CPT-4: 85752 02/19/2016 ([id number]) 66982 EST. PATIENT, LEVEL IV Diagnosis: Essential (primary) hypertension[ICD10: I10] Diagnosis: Gastro-esophageal reflux disease without esophagitis[ICD10: K21.9] Diagnosis: Major depressive disorder, recurrent, mild[ICD10: F33.0] Kim Burden MD, [facility] CPT-4: 80466 12/19/2015 ([id number]) 65884 EST. PATIENT, LEVEL IV Diagnosis: ESSENTIAL HYPERTENSION[ICD9: 401.9] Diagnosis: ACUTE URI[ICD9: 465.9] Kim Burden MD, [facility] CPT-4: 26453 03/06/2015 ([id number]) OFFICE VISIT, NEW - LEVEL 4 Diagnosis: ESOPHAGEAL REFLUX[ICD9: 530.81] Diagnosis: ESSENTIAL HYPERTENSION[ICD9: 401.9] Diagnosis: COPD (chronic obstructive pulmonary disease)[ICD9: 496] Diagnosis: ALLERGIC RHINITIS[ICD9: 477.9] Mallorie Burden MD, [facility] CPT-4: 27050 02/07/2015 Plan of Care Planned Activity Notes Codes Status Date Appointment: [phone] [facility] [place] ([place] min) Moderate 10/16/2017 Patient Education: Patient Medication Summary Completed 10/16/2017 [facility]ment[phone] [facility] [place] ([facility]) Moderate 09/03/2017 Patient Education: Patient Medication Summary Completed 09/03/2017 Appointment: Kim Burden WPtel: [phone] [facility] [place] (15 min) Moderate 08/11/2017 Appointment: [phone] [facility] [place] ([place]) Moderate 08/11/2017 Patient Education: Patient Medication Summary Completed 08/11/2017 App[facility]ment: [facility] [phone] [facility] [place] ([place]) Moderate 07/31/2017 Patient Education: Patient Medication Summary Completed 07/31/2017 Appointment: Nurse Visit 07/18/2017 Patient Education: Patient Medication Summary Completed 07/18/2017 Patient Education: Patient Medication Summary Completed 07/18/2017 App[facility]ment: [facility] [phone] [facility] [place] ([place]) Moderate 06/30/2017 [phone] [phone] [place] (30 min) Complex 06/16/2017 Patient Education: Patient Medication Summary Completed 06/16/2017 Appointment[facility] K[facility] [phone] [facility] [place] ([place]) Moderate 05/28/2017 Patient Education: Patient Medication Summary Completed 05/28/2017 Appointment: [facility] [phone] [facility] [place] ([place]) Moderate 05/05/2017 Patient Education: Patient Medication Summary Completed 05/05/2017 Appointment: [facility] [phone] [facility] (15 min) Moderate 03/13/2017 Patient Education: Patient Medication Summary Completed 03/13/2017 Appointment: Kim Burden WPtel: [facility] [place] (15 min) Moderate 02/10/2017 Patient Education: Patient Medication Summary Completed 02/10/2017 Appointment: Kim Burden WPtel: [facility] (15 min) Moderate 01/14/2017 Patient Education: Patient Medication Summary Completed 01/14/2017 Appointment: Pebbles Lund WPtel: [phone] (30 min) Complex 01/07/2017 Patient Education: Patient Medication Summary Completed 01/07/2017 Appointment: Nurse Visit 01/02/2017 Patient Education: Patient Medication Summary Completed 01/02/2017 Appointment: Pebbles Lund WPtel: [facility] ([facility] min) Complex 01/01/2017 Patient Education: Patient Medication Summary Completed 01/01/2017 Appointment: Nurse Visit 12/20/2016 Patient Education: Patient Medication Summary Completed 12/20/2016 Patient Education: Hypertension Completed 12/20/2016 Appointment: Pebbles Lund WPtel: [facility] [place] [facility] - Annual Wellness Visit 12/12/2016 Patient Education: Patient Medication Summary Completed 12/12/2016 Appointment: Kim Burden WPtel: [facility] [place] (15 min) Moderate 12/11/2016 Patient Education: Patient Medication Summary Completed 12/11/2016 Appointment: [facility] [phone] [phone] [place] (30 min) Complex 12/10/2016 Appointment: Kim Burden WPtel: [phone] [facility] [place] (15 min) Moderate 10/15/2016 Patient Education: Patient Medication Summary Completed 10/15/2016 Appointment: Injection 08/28/2016 Patient Education: Patient Medication Summary Completed 08/28/2016 Appointment: Kim Burden WPtel: [phone] [facility] [place] (15 min) Moderate 07/17/2016 Patient Education: Patient Medication Summary Completed 07/17/2016 Appointment: Kim Burden WPtel: [phone] [facility] [place] (15 min) Moderate 06/10/2016 Appointment: Kim Burden WPtel: [facility] [place] (15 min) Moderate 05/15/2016 Patient Education: Patient Medication Summary Completed 05/15/2016 Appointment: [facility] Burden [facility]el[facility] [place] ([place]) Moderate 04/23/2016 Patient Education: Patient Medication Summary Completed 04/23/2016 Patient Education: Hypertension Completed 04/23/2016 Care Plan: X-RAY EXAM OF ABDOMEN LOINC : 10349-0 Pending 03/18/2016 Appointment: Pebbles Lund WPtel: [facility] [place] (30 min) Complex 03/14/2016 Patient Education: Patient Medication Summary Completed 03/14/2016 Patient Education: Patient Medication Summary Completed 02/29/2016 Appointment: Pebbles Lund WPtel: [facility] [place] ([place] min) Complex 02/19/2016 Patient Education: Patient Medication Summary Completed 02/19/2016 Appointment: Kim Burden WPtel: [facility] [place] (15 min) Moderate 01/22/2016 App[facility]ment: [facility] [phone] [facility] (15 min) Moderate 12/19/2015 Patient Education: Patient Medication Summary Completed 12/19/2015 Patient Education: Hypertension Completed 12/19/2015 Appointment: [facility] [phone] [facility] Follow up 03/06/2015 Patient Education: Patient Medication Summary Completed 03/06/2015 Patient Education: Hypertension Completed 03/06/2015 Patient Education: Patient Medication Summary Completed 02/07/2015 Patient Education: Hypertension Completed 02/07/2015 Care Plan: SCREENINGMAMMOGRAPHYDIGITAL LOINC : 88833-9 Ordered 02/07/2015 Care Plan: COMPLETE CBC AUTOMATED LOINC : 65973-2 Ordered 02/07/2015 Instructions No Instructions
--- OUTSIDE RECORDS SUMMARY | 2017-11-30 11:04 | XMS REPORT | CCD ---
Author Author [facility] Address [address] [place] [address] Phone Care Team Providers Care Insurance Coder Name Role Phone PP Unavailable CCM Unavailable Summary Purpose Interface Exchange Insurance Providers Payer name Policy type / Coverage type Covered democrat ID Effective Begin Date Effective End Date WPS Medicare Part B Medicare Part B [id number] Unknown AETNA Medicare Part B [id number] 2014 Unknown Family history Brother Diagnosis Age [...] 02/07/2015 Employment Unknown Currently employed works at [employer] 02/07/[address]: 7456946 Quit over 10 years ago 199302/07/2015 Number [...] Start Date Stop Date Status Fill Instructions Kenalog 40 mg/mL suspension for injection RxNorm: 8947985 1 Milliliter(s) Inj 10/16/2017 10/16/2017 Inactive ibuprofen 800 mg tablet RxNorm: 560659 TAKE 1 TABLET THREE TIMES DAILY 10/15/2017 01/07/2019 Active Lexapro 10 mg tablet RxNorm: 288698 TAKE 1 TABLET EVERY DAY 10/09/2018 Active hydrocodone 5 mg-acetaminophen 325 mg tablet RxNorm: 689756 1 Tablet(s) PO QID as needed 09/03/2017 No Stop Date Active omeprazole 20 mg capsule,delayed release RxNorm: 624062 1 Capsule(s) PO BID 09/02/2017 08/27/2018 Active alprazolam 1 mg tablet RxNorm: 783109 1 Tablet(s) PO TID 201605/27/2018 Active metoprolol tartrate 50 mg tablet RxNorm: 236834 1/2 Tablet(s) PO BID 06/26/2017 06/20/2018 Active omeprazole 20 mg capsule,delayed release RxNorm: 044604 1 Capsule(s) PO BID 06/05/2017 09/01/2017 Inactive omeprazole 20 mg capsule,delayed release RxNorm: 548237 1 Capsule(s) PO BID 05/28/2017 06/04/2017 Inactive omeprazole 20 mg capsule,delayed release RxNorm: 353793 1 Capsule(s) PO QPM 05/27/2017 05/27/2017 Inactive Breo Ellipta 100 mcg-25 mcg/dose powder for inhalation RxNorm: 0699467 1 INH daily 05/05/2017 04/29/2018 Active losartan 100 mg tablet RxNorm: 192150 1 Tablet(s) PO QPM 201602/04/2018 Active alprazolam 1 mg tablet RxNorm: 814376 1 Tablet(s) PO TID 201608/07/2017 Inactive metoprolol tartrate 50 mg tablet RxNorm: 802312 1/2 Tablet(s) PO BID 02/10/2017 06/25/2017 Inactive losartan 50 mg tablet RxNorm: 126437 2 Tablet(s) PO QPM 201602/09/2017 Inactive Diflucan 150 mg tablet RxNorm: 136248 1 Tablet(s) PO daily 01/22/2017 Inactive please call pt to let herknow when to pick- up the med Diflucan 150 mg tablet RxNorm: 466535 1 Tablet(s) PO daily 01/19/2017 Inactive please call pt to let herknow when to pick- up the med losartan 50 mg tablet RxNorm: 733052 1 Tablet(s) PO QPM 201601/22/2017 Inactive Cipro 500 mg tablet RxNorm: 883158 1 Tablet(s) PO BID 201601/17/2017 Inactive Cipro 500 mg tablet RxNorm: 846757 1 Tablet(s) PO BID 201601/07/2017 Inactive Lexapro 10 mg tablet RxNorm: 777522 TAKE 1 TABLET EVERY DAY 10/14/2017 Inactive metoprolol tartrate 50 mg tablet RxNorm: 426758 1 Tablet(s) PO in the morning and 1.5 pill at night 12/11/2016 01/13/2017 Inactive spironolactone 25 mg tablet RxNorm: 778969 TAKE 1 TABLET EVERY DAY 11/04/2016 07/31/2017 Inactive metoprolol tartrate 50 mg tablet RxNorm: 489040 TAKE 1 TABLET TWICE DAILY 10/29/2016 12/10/2016 Inactive ibuprofen 800 mg tablet RxNorm: 484494 TAKE 1 TABLET THREE TIMES DAILY 10/21/2016 10/14/2017 Inactive Astepro 0.15 % (205.5 mcg) nasal spray RxNorm: 3149961 1 Venus NASAL BID 10/15/2016 10/09/2017 Inactive Astepro 0.15 % (205.5 mcg) nasal spray RxNorm: 9348221 1 Venus NASAL BID 10/15/2016 10/14/2016 Inactive Astepro 0.15 % (205.5 mcg) nasal spray RxNorm: 9649095 1 Venus NASAL BID 10/15/2016 10/14/2016 Inactive omeprazole 20 mg capsule,delayed release RxNorm: 217801 1 Capsule(s) PO QPM 10/15/2016 05/26/2017 Inactive omeprazole 20 mg capsule,delayed release RxNorm: 171647 1 Capsule(s) QPM 10/15/2016 10/14/2016 Inactive omeprazole 20 mg capsule,delayed release RxNorm: 529621 TAKE 1 CAPSULE TWICE DAILY 09/02/2016 10/14/2016 Inactive Lexapro 10 mg tablet RxNorm: 837839 TAKE 1 TABLET EVERY DAY 12/19/2016 Inactive calcitonin (salmon) 200 unit/actuation nasal spray RxNorm: 065948 1 Venus NASAL daily ONE SPRAY PER ONE NOSTRIL DAILY- ALTERNATE NOSTRILS DAILY 05/31/2016 05/30/2016 Inactive She will do this for 3 months- If she wants to do a 3 month supply at one time she can without refill calcitonin (salmon) 200 unit/actuation nasal spray RxNorm: 443633 1 Venus NASAL daily ONE SPRAY PER ONE NOSTRIL DAILY- ALTERNATE NOSTRILS DAILY 05/31/2016 07/30/2016 Inactive x3 months- no refills Forteo 20 mcg/dose (600 mcg/2.4 mL) subcutaneous pen injector RxNorm: 7691278 1 injection SQ daily 05/22/20162015 Inactive call pt with jaramillo first Forteo 20 mcg/dose (600 mcg/2.4 mL) subcutaneous pen injector RxNorm: 7895880 1 injection SQ daily 05/22/20162015 Inactive Prolia 60 mg/mL subcutaneous syringe RxNorm: 984479 1 Milliliter(s) SQ every 6 months 05/13/2016 No Stop Date Active Please check jaramillo through insurance and let me know- Thanks! Mary Ellen alprazolam 1 mg tablet RxNorm: 363693 1 Tablet(s) PO TID 201511/01/2016 Inactive Lexapro 10 mg tablet RxNorm: 324786 TAKE 1 TABLET EVERY DAY 08/20/2016 Inactive spironolactone 25 mg tablet RxNorm: 885795 TAKE 1 TABLET EVERY DAY 04/22/2016 11/03/2016 Inactive Diflucan 150 mg tablet RxNorm: 348256 1 Tablet(s) PO daily 04/14/2016 Inactive Diflucan 150 mg tablet RxNorm: 952774 1 Tablet(s) PO daily 03/19/2016 Inactive Augmentin 500 mg-125 mg tablet RxNorm: 602898 1 Tablet(s) PO TID 03/14/2016 03/23/2016 Inactive omeprazole 20 mg capsule,delayed release RxNorm: 075202 1 Tablet(s) PO BID 03/06/2016 09/01/2016 Inactive [SAVINGS FOR NON-COVERED DRUGS -- BIN:[id number], PCN: ASPROD1, Group: XXXXX, ID# XXXXXXX, Questions: . THIS IS NOT INSURANCE.] amlodipine 5 mg tablet RxNorm: 213718 TAKE 1 TABLET EVERY DAY 03/01/2016 04/22/2016 Inactive omeprazole 20 mg tablet,delayed release RxNorm: 754614 1 Tablet(s) PO BID 02/27/2016 03/05/2016 Inactive [SAVINGS FOR NON-COVERED DRUGS -- BIN:345324, PCN: ASPROD1, Group: XXXXX, ID# XXXXXXX, Questions: . THIS IS NOT INSURANCE.] spironolactone 25 mg tablet RxNorm: 382414 TAKE 1 TABLET EVERY DAY 12/21/2015 04/21/2016 Inactive Lexapro 10 mg tablet RxNorm: 395226 1 Tablet(s) PO daily 201501/01/2016 Inactive Lexapro 10 mg tablet RxNorm: 393871 1 Tablet(s) PO daily 201502/09/2017 Inactive Lexapro 10 mg tablet RxNorm: 453487 1 Tablet(s) PO daily 201512/18/2015 Inactive alprazolam 1 mg tablet RxNorm: 919433 1 Tablet(s) PO TID 201502/28/2016 Inactive ibuprofen 800 mg tablet RxNorm: 405042 1 Tablet(s) PO TID 10/2610/20/2016 Inactive alprazolam 1 mg tablet RxNorm: 456577 1 Tablet(s) PO TID 201411/19/2015 Inactive spironolactone 25 mg tablet RxNorm: 231039 1 Tablet(s) PO daily 08/21/2015 12/20/2015 Inactive metoprolol tartrate 50 mg tablet RxNorm: 496322 1 Tablet(s) PO BID 08/10/2015 08/03/2016 Inactive [SAVINGS FOR NON-COVERED DRUGS -- BIN:295947, PCN: ASPROD1, Group : XXXXX, ID# XXXXXXX, Questions: . THIS IS NOT INSURANCE.] omeprazole 20 mg tablet,delayed release RxNorm: 183923 1 Tablet(s) PO BID 08/07/2015 02/02/2016 Inactive [SAVINGS FOR NON-COVERED DRUGS -- BIN:627606, PCN: ASPROD1, Group: XXXXX, ID# XXXXXXX, Questions: . THIS IS NOT INSURANCE.] Keflex 500 mg capsule RxNorm: 888382 1 Capsule(s) PO TID 201407/16/2015 Inactive alprazolam 1 mg tablet RxNorm: 019356 1 Tablet(s) PO TID 201408/22/2015 Inactive alprazolam 1 mg tablet RxNorm: 540581 1 Tablet(s) PO TID 201406/01/2015 Inactive amlodipine 5 mg tablet RxNorm: 908034 1 Tablet(s) PO daily 04/201502/29/2016 Inactive Nasonex 50 mcg/actuation Venus RxNorm: 266887 1 Venus NASAL daily 03/03/2015 03/02/2015 Inactive Keflex 500 mg capsule RxNorm: 595237 1 Capsule(s) PO TID 201403/02/2015 Inactive Nasonex 50 mcg/actuation Venus RxNorm: 891763 1 Venus NASAL daily 03/03/2015 05/01/2015 Inactive Keflex 500 mg capsule RxNorm: 682190 1 Capsule(s) PO TID 201403/05/2015 Inactive Carafate 1 gram tablet RxNorm: 321669 TAKE 1 TABLET FOUR TIMES DAILY 30 MINUTES BEFORE MEALS AND AT BEDTIME 02/28/2015 Inactive Kenalog 40 mg/mL suspension for injection RxNorm: 7882607 Milliliter(s) Inj 02/07/2015 02/07/2015 Inactive [SAVINGS FOR NON-COVERED DRUGS -- BIN:616620, PCN: ASPROD1, Group: XXXXX, ID# XXXXXXX, Questions: . THIS IS NOT INSURANCE.] metoprolol tartrate 50 mg tablet RxNorm: 197694 1 Tablet(s) PO BID 02/07/2015 08/09/2015 Inactive [SAVINGS FOR NON-COVERED DRUGS -- BIN:650907, PCN: ASPROD1, Group : XXXXX, ID# XXXXXXX, Questions: . THIS IS NOT INSURANCE.] Carafate 1 gram tablet RxNorm: 103117 1 Tablet(s) PO QID 201402/27/2015 Inactive 30 min before meals and at bedtime omeprazole 20 mg tablet,delayed release RxNorm: 755851 1 Tablet(s) PO BID 02/07/2015 08/05/2015 Inactive [SAVINGS FOR NON-COVERED DRUGS -- BIN:795387, PCN: ASPROD1, Group: XXXXX, ID# XXXXXXX, Questions: . THIS IS NOT INSURANCE.] Vitamin D3 2,000 unit tablet RxNorm: 733884 1 Tablet(s) PO daily No Start Date Active aspirin 81 mg tablet RxNorm: 572901 1 Tablet(s) PO daily No Start Date Active loratadine 10 mg tablet RxNorm: 000353 1 Tablet(s) PO daily No Start Date Active amlodipine 2.5 mg tablet RxNorm: 974281 1 Tablet(s) PO daily No Start Date 03/05/2015 Inactive spironolactone 25 mg tablet RxNorm: 524539 1 Tablet(s) PO daily No Start Date 08/20/2015 Inactive cetirizine 10 mg tablet RxNorm: 3606941 1 Tablet(s) PO daily No Start Date 12/18/2015 Inactive metoprolol tartrate 50 mg tablet RxNorm: 482721 1 Tablet(s) PO daily No Start Date 02/06/2015 Inactive ipratropium bromide 0.06 % nasal spray RxNorm: 527328 nasal No Start Date 12/18/2015 Inactive alprazolam 1 mg tablet RxNorm: 950332 1 Tablet(s) PO TID No Start Date 03/28/2015 Inactive Prolia 60 mg/mL subcutaneous syringe RxNorm: 204132 1 Milliliter(s) SQ every 6 months No Start Date 05/12/2016 Inactive Please check jaramillo through insurance and let me know- Thanks! Mary Ellen ibuprofen 800 mg tablet RxNorm: 533451 1 Tablet(s) PO TID No Start Date 10/25/2015 Inactive Protonix 40 mg tablet,delayed release RxNorm: 092071 1 Tablet(s) PO daily No Start Date 03/05/2015 Inactive Medication Administered Medication Codes Instructions Start Date Status Kenalog 40 mg/mL suspension for injection RxNorm: 8923754 1Milliliter 10/16/2017 Active Kenalog 40 mg/mL suspension for injection RxNorm: 8273664 Milliliter 02/07/2015 No longer Active Immunizations Vaccine [...] Item Item Code Result Date Comp Metabolic Vpc932 NA 138 mEq/L 09/03/2017 Comp Metabolic Zps116 K 3.9 mEq/L 09/03/2017 Comp Metabolic Fcv706 CL 102 mEq/L 09/03/2017 Comp Metabolic Cdq095 CO2 32.0 mEq/L 09/03/2017 Comp Metabolic Suo965 ANION GAP 8 09/03/2017 Comp Metabolic Nvo954 GLUCOSE 89 mg/dL 09/03/2017 Comp Metabolic Hsy751 Creat 0.6 mg/dL 09/03/2017 Comp Metabolic Qax035 eGFR 103 ml/min/1.73m2 09/03/2017 Comp Metabolic Lqr867 BUN 10 mg/dL 09/03/2017 Comp Metabolic Wre371 B/C Ratio 16.7 Ratio 09/03/2017 Comp Metabolic Gob636 CALCIUM 8.9 mg/dL 09/03/2017 Comp Metabolic Uag021 ALK PHOS 141 U/L 09/03/2017 Comp Metabolic Wye390 AST(SGOT) 12 U/L 09/03/2017 Comp Metabolic Qvh303 ALT(SGPT) 7 U/L 09/03/2017 Comp Metabolic Ect865 BILI T 0.6 mg/dL 09/03/2017 Comp Metabolic Aae569 ALBUMIN 3.6 g/dL 09/03/2017 Comp Metabolic Qgg677 TPRO 6.6 g/dL 09/03/2017 Comp Metabolic Fkf665 GLOB 3.0 g/dL 09/03/2017 Comp Metabolic Jgu718 A/G Ratio 1.2 Ratio 09/03/2017 Comp Metabolic Jik354 Osmo 274 mOsmo 09/03/2017 Hepatic Pyb959 ALBUMIN 3.7 g/dL 08/11/2017 Hepatic Myl162 TPRO 7.0 g/dL 08/11/2017 Hepatic Ixy960 GLOB 3.3 g/dL 08/11/2017 Hepatic End230 A/G Ratio 1.1 Ratio 08/11/2017 Hepatic Boz681 ALK PHOS 85 U/L 08/11/2017 Hepatic Mko334 ALT(SGPT) 11 U/L 08/11/2017 Hepatic Dli233 AST(SGOT) 16 U/L 08/11/2017 Hepatic Njp659 BILI T 0.6 mg/dL 08/11/2017 Hepatic Pyy494 BILI D 0.1 mg/dL 08/11/2017 Hepatic Rhh234 BILI I 0.5 mg/dL 08/11/2017 Hepatic Vfn855 ALBUMIN 3.1 g/dL 07/18/2017 Hepatic Kug304 TPRO 5.9 g/dL 07/18/2017 Hepatic Ecf163 GLOB 2.8 g/dL 07/18/2017 Hepatic Aud204 A/G Ratio 1.1 Ratio 07/18/2017 Hepatic Axq173 ALK PHOS 123 U/L 07/18/2017 Hepatic Llm060 ALT(SGPT) 210 U/L 07/18/2017 Hepatic Iob142 AST(SGOT) 71 U/L 07/18/2017 Hepatic Xmq236 BILI T 1.1 mg/dL 07/18/2017 Hepatic Rqu787 BILI D 0.4 mg/dL 07/18/2017 Hepatic Buu396 BILI I 0.7 mg/dL 07/18/2017 Cbc With Differential Ord2 WBC 4.97 K/ul 02/25/2017 Cbc With Differential Ord2 RBC 3.64 M/ul 02/25/2017 Cbc With Differential Ord2 HGB 11.8 g/dl 02/25/2017 Cbc With Differential Ord2 Neut% 59.9 % 02/25/2017 Cbc With Differential Ord2 HCT 36.5 % 02/25/2017 Cbc With Differential Ord2 MCV 100.3 fl 02/25/2017 Cbc With Differential Ord2 Lymph% 24.5 % 02/25/2017 Cbc With Differential Ord2 MCH 32.4 pg 02/25/2017 Cbc With Differential Ord2 [place]% 7.6 % 02/25/2017 Cbc With Differential Ord2 [...] 1.22 K/ul 02/25/2017 Cbc With Differential Ord2 [place] ABS# 0.4 K/ul 02/25/2017 Cbc With Differential [...] 98.0 fl 01/02/2017 Cbc With Differential Ord2 [place]% 7.8 % 01/02/2017 Cbc With Differential Ord2 [...] 0.90 K/ul 01/02/2017 Cbc With Differential Ord2 [place] ABS# 0.4 K/ul 01/02/2017 Cbc With Differential Ord2 Eos ABS# 0.3 K/ul 01/02/2017 Cbc With Differential Ord2 Baso ABS# 0.0 K/ul 01/02/2017 Lipid Ord30 CHOL 139 mg/dL 12/13/2016 Lipid Ord30 HDL 48.0 mg/dl 12/13/2016 Lipid Ord30 TRIG 84 mg/dL 12/13/2016 Lipid Ord30 LDL 74 mg/dL 12/13/2016 Lipid Ord30 C/HDL 2.9 Ratio 12/13/2016 Comp Metabolic Ztn968 NA 137 mEq/L 12/13/2016 Comp Metabolic Bjd751 K 4.8 mEq/L 12/13/2016 Comp Metabolic Bpn898 CL 101 mEq/L 12/13/2016 Comp Metabolic Sxd387 CO2 32.0 mEq/L 12/13/2016 Comp Metabolic Kjz058 ANION GAP 9 12/13/2016 Comp Metabolic Ypi092 GLUCOSE 95 mg/dL 12/13/2016 Comp Metabolic Aho794 Creat 0.8 mg/dL 12/13/2016 Comp Metabolic Nfg521 eGFR 79 ml/min/1.73m2 12/13/2016 Comp Metabolic Fzg962 BUN 15 mg/dL 12/13/2016 Comp Metabolic Njk194 B/C Ratio 19.7 Ratio 12/13/2016 Comp Metabolic Oqm331 CALCIUM 9.3 mg/dL 12/13/2016 Comp Metabolic Slr638 ALK PHOS 63 U/L 12/13/2016 Comp Metabolic Ffg590 AST(SGOT) 15 U/L 12/13/2016 Comp Metabolic Cqc662 ALT(SGPT) 10 U/L 12/13/2016 Comp Metabolic Iax642 BILI T 0.7 mg/dL 12/13/2016 Comp Metabolic Eig399 ALBUMIN 3.7 g/dL 12/13/2016 Comp Metabolic Lqy519 TPRO 6.8 g/dL 12/13/2016 Comp Metabolic Vdl611 GLOB 3.2 g/dL 12/13/2016 Comp Metabolic Hkm662 A/G Ratio 1.2 Ratio 12/13/2016 Comp Metabolic Zio913 Osmo 274 mOsmo 12/13/2016 Cbc With Differential [...] 97.4 fl 12/13/2016 Cbc With Differential Ord2 [place]% 9.9 % 12/13/2016 Cbc With Differential Ord2 [...] 1.17 K/ul 12/13/2016 Cbc With Differential Ord2 [place] ABS# 0.4 K/ul 12/13/2016 Cbc With Differential [...] 97.3 fl 12/19/2015 Cbc With Differential Ord2 [place]% 5.9 % 12/19/2015 Cbc With Differential Ord2 [...] 1.53 K/ul 12/19/2015 Cbc With Differential Ord2 [place] ABS# 0.3 K/ul 12/19/2015 Cbc With Differential [...] Ord30 C/HDL 2.8 Ratio 12/19/2015 Comp Metabolic Ckc866 NA 135 mEq/L 12/19/2015 Comp Metabolic Vwt143 K 4.1 mEq/L 12/19/2015 Comp Metabolic Dpu190 CL 99 mEq/L 12/19/2015 Comp Metabolic Slv710 CO2 27.0 mEq/L 12/19/2015 Comp Metabolic Ngf454 ANION GAP 13 12/19/2015 Comp Metabolic Ssv982 GLUCOSE 83 mg/dL 12/19/2015 Comp Metabolic Pdc500 Creat 0.7 mg/dL 12/19/2015 Comp Metabolic Opr740 eGFR 88 ml/min/1.73m2 12/19/2015 Comp Metabolic Nfy484 BUN 12 mg/dL 12/19/2015 Comp Metabolic Qqf179 B/C Ratio 17.4 Ratio 12/19/2015 Comp Metabolic Bdg702 CALCIUM 9.0 mg/dL 12/19/2015 Comp Metabolic Npw616 ALK PHOS 68 U/L 12/19/2015 Comp Metabolic Bnk146 AST(SGOT) 16 U/L 12/19/2015 Comp Metabolic Gip748 ALT(SGPT) 13 U/L 12/19/2015 Comp Metabolic Rtm814 BILI T 0.7 mg/dL 12/19/2015 Comp Metabolic Cdf567 ALBUMIN 4.0 g/dL 12/19/2015 Comp Metabolic Fqd913 TPRO 7.0 g/dL 12/19/2015 Comp Metabolic Clk175 GLOB 3.0 g/dL 12/19/2015 Comp Metabolic Xip547 A/G Ratio 1.3 Ratio 12/19/2015 Comp Metabolic Lhx545 Osmo 269 mOsmo 12/19/2015 Review of Systems [...] NOS CPT-4: J3301 10/16/2017 DRAIN/INJECT JOINT/BURSA CPT-4: 78569 10/16/2017 PRESCRIP TRANSMIT VIA ERX SY CPT-4: G8553 05/05/2017 PRESCRIP TRANSMIT VIA ERX SY CPT-4: G8553 01/14/2017 PPPS, SUBSEQ VISIT CPT -4: G0439 12/12/2016 PRESCRIP TRANSMIT VIA ERX SY CPT-4: G8553 10/15/2016 ADMIN PNEUMOCOCCAL VACCINE SNOMED CT: 34071849 CPT-4: G0009 08/28/2016 Pneumococcal Polysaccharide Vaccine, 23-Valent, Ad CPT-4: 40378 08/28/2016 PRESCRIP TRANSMIT VIA ERX SY CPT-4: G8553 03/14/2016 PRESCRIP TRANSMIT VIA ERX SY CPT-4: G8553 12/19/2015 THER/PROPH/DIAG INJ SC/IM CPT-4: 95375 02/07/2015 TRIAMCINOLONE ACET INJ NOS CPT-4: J3301 02/07/2015 Vital Signs Date Vital 10/16/2017 Blood Pressure 1: 142/88 Code : 8480-6 BMI: 25.5 Code : 18754-1 Heart Rate 1 : 63 bpm Height: 5'1" SpO2: 97% Weight: 135 lbs 09/03/2017 Blood Pressure 1: 144/90 Code : 8480-6 BMI: 26.3 Code : 63088-6 Heart Rate 1 : 91 bpm Height: 5'1" SpO2: 96% Weight: 139 lbs 07/31/2017 Blood Pressure 1: 136/90 Code : 8480-6 BMI: 26.3 Code : 93999-3 Height: 5'1" Weight: 139 lbs 07/18/2017 Blood Pressure 1: 136/84 Code : 8480-6 06/16/2017 Blood Pressure 1: 136/84 Code : 8480-6 BMI: 26.5 Code : 63757-9 Heart Rate 1 : 72 bpm Height: 5'1" SpO2: 97% Weight: 140 lbs 05/28/2017 Blood Pressure 1: 138/78 Code : 8480-6 BMI: 26.1 Code : 66264-7 Heart Rate 1 : 70 bpm Height: 5'1" SpO2: 98% Weight: 138 lbs 05/05/2017 Blood Pressure 1: 140/86 Code : 8480-6 BMI: 25.3 Code : 05193-9 Heart Rate 1 : 66 bpm Height: 5'1" SpO2: 99% Weight: 134 lbs 03/13/2017 Blood Pressure 1: 126/74 Code : 8480-6 BMI: 25.3 Code : 97533-4 Heart Rate 1 : 73 bpm Height: 5'1" SpO2: 98% Weight: 134 lbs 02/10/2017 Blood Pressure 1: 148/88 Code : 8480-6 BMI: 25.9 Code : 95729-4 Heart Rate 1 : 84 bpm Height: 5'1" SpO2: 97% Weight: 137 lbs 01/14/2017 Blood Pressure 1: 134/86 Code : 8480-6 BMI: 25.7 Code : 30411-8 Heart Rate 1 : 83 bpm Height: 5'1" SpO2: 95% Weight: 136 lbs 01/07/2017 Blood Pressure 1: 136/88 Code : 8480-6 BMI: 25.1 Code : 39051-1 Heart Rate 1 : 86 bpm Height: 5'1" SpO2: 94% Weight: 133 lbs 01/02/2017 Blood Pressure 1: 122/68 Code : 8480-6 Blood Pressure 2: 116/78 Code: 8480-6 01/01/2017 Blood Pressure 1: 90/52 Code : 8480-6 BMI: 25.1 Code : 81909-2 Heart Rate 1 : 86 bpm Height: 5'1" SpO2: 99% Weight: 133 lbs 12/20/2016 Blood Pressure 1: 120/76 Code : 8480-6 12/12/2016 Blood Pressure 1: 130/72 Code : 8480-6 BMI: 24.8 Code : 40196-7 Heart Rate 1 : 62 bpm Height: 5'1" SpO2: 98% Waist Measure (cm): 79 cm Weight: 131 lbs 12/11/2016 Blood Pressure 1: 132/70 Code : 8480-6 BMI: 24.8 Code : 43735-3 Heart Rate 1 : 60 bpm Height: 5'1" Weight: 131 lbs 10/15/2016 Blood Pressure 1: 108/66 Code : 8480-6 BMI: 24.8 Code : 84375-9 Heart Rate 1 : 60 bpm Height: 5'1" Weight: 131 lbs 07/17/2016 Blood Pressure 1: 128/82 Code : 8480-6 BMI: 25.3 Code : 01031-8 Heart Rate 1 : 50 bpm Height: 5'2" Weight: 136 lbs 05/15/2016 Blood Pressure 1: 108/70 Code : 8480-6 BMI: 23.4 Code : 43204-0 Heart Rate 1 : 54 bpm Height: 5'2" SpO2: 96% Weight: 126 lbs 04/23/2016 Blood Pressure 1: 112/60 Code : 8480-6 BMI: 23.6 Code : 76924-8 Heart Rate 1 : 92 bpm Height: 5'2" SpO2: 95% Weight: 127 lbs 03/14/2016 Blood Pressure 1: 118/74 Code : 8480-6 BMI: 24.0 Code : 66822-0 Heart Rate 1 : 51 bpm Height: 5'2" SpO2: 94% Temperature: 36.8 (C) / 98.3 (F) Weight: 129 lbs 02/19/2016 Blood Pressure 1: 110/62 Code : 8480-6 BMI: 23.4 Code : 19384-0 Heart Rate 1 : 74 bpm Height: 5'2" SpO2: 97% Weight: 126 lbs 12/19/2015 Blood Pressure 1: 108/74 Code : 8480-6 BMI: 23.6 Code : 31642-3 Heart Rate 1 : 52 bpm Height: 5'2" Weight: 127 lbs 03/06/2015 Blood Pressure 1: 136/88 Code : 8480-6 Heart Rate 1: 64 bpm Weight: 129 lbs 02/07/2015 Blood Pressure 1: 142/90 Code : 8480-6 BMI: 24.5 Code : 80882-4 Heart Rate 1 : 82 bpm Height: [...] data Encounters Encounter Performer Location Codes Date ([id number]) [id number] EST. PATIENT, LEVEL IV Diagnosis: Essential (primary) hypertension[ICD10: I10] Diagnosis: Other emphysema[ICD10: J43.8] Diagnosis: Dependence on supplemental oxygen[ICD10: Z99.81] Diagnosis: Hypoxemia[ICD10: R09.02] Diagnosis: Pain in left knee[ICD10: M25.562] Diagnosis: Effusion, left knee[ICD10: M25.462] [facility] CPT-4: 85461 10/16/2017 [id number] EST. PATIENT, LEVEL III Diagnosis: Pain in thoracic spine[ICD10: M54.6] [facility] CPT-4: 25463 09/03/2017 [id number] EST. PATIENT, LEVEL III Diagnosis: Essential (primary) hypertension[ICD10: I10] Diagnosis: Other emphysema[ICD10: J43.8] [facility] CPT- 4: 37475 07/31/2017 ([id number]) Miscellaneous no charge Diagnosis: Essential (primary) hypertension[ICD10: I10] Mallorie Burden MD, [facility] CPT-4: 96827 07/18/2017 ([id number]) 23461 EST. PATIENT, LEVEL III Diagnosis: Pain in left knee[ICD10: M25.562] Diagnosis: Effusion, left knee[ICD10: M25.462] Mallorie Burden MD, [facility] CPT-4: 03791 06/16/2017 ([id number]) 05790 EST. PATIENT, LEVEL III Diagnosis: Essential (primary) hypertension[ICD10: I10] Diagnosis: Unsteadiness on feet[ICD10: R26.81] Kim Burden MD, [facility] CPT-4: 91402 05/28/2017 ([id number]) 95629 EST. PATIENT, LEVEL IV Diagnosis: Essential (primary) hypertension[ICD10: I10] Diagnosis: Chronic obstructive pulmonary disease with acute lower respiratory infection[ICD10: J44.0] Kim Burden MD, [facility] CPT-4: 05275 05/05/2017 ([id number]) 32895 EST. PATIENT, LEVEL IV Diagnosis: Essential (primary) hypertension[ICD10: I10] Diagnosis: Major depressive disorder, recurrent, mild[ICD10: F33.0] Kim Burden MD, [facility] CPT-4: 24228 03/13/2017 ([id number]) 31769 EST. PATIENT, LEVEL IV Diagnosis: Essential (primary) hypertension[ICD10: I10] Diagnosis: Gastro-esophageal reflux disease without esophagitis[ICD10: K21.9] Diagnosis: Chronic obstructive pulmonary disease, unspecified[ICD10: J44.9] Kim Burden MD, [facility] CPT-4: 28463 02/10/2017 ([id number]) 02685 EST. PATIENT, LEVEL IV Diagnosis: Essential (primary) hypertension[ICD10: I10] Diagnosis: Gastro-esophageal reflux disease without esophagitis[ICD10: K21.9] Diagnosis: Chronic obstructive pulmonary disease with acute lower respiratory infection[ICD10: J44.0] Kim Burden MD, [facility] CPT-4: 31236 01/14/2017 16604 EST. PATIENT, LEVEL IV Diagnosis: Other fatigue[ICD10: R53.83] Diagnosis: Other malaise[ICD10: R53.81] Diagnosis: Headache[ICD10: R51] Diagnosis: Palpitations[ICD10: R00.2] Diagnosis: Dehydration[ICD10: E86.0] Pebbles Burden MD [facility] CPT-4: 05923 01/07/2017 ([id number]) Miscellaneous no charge Diagnosis: Essential (primary) hypertension[ICD10: I10] Pebbles Burden MD [facility] CPT-4: 40864 01/02/2017 [id number] EST. PATIENT, LEVEL IV Diagnosis: Chronic obstructive pulmonary disease, unspecified[ICD10: J44.9] Diagnosis: Essential (primary) hypertension[ICD10: I10] Diagnosis: Other fatigue[ICD10: R53.83] Pebbles Burden MD [facility] CPT-4 : 86239 01/01/2017 ([id number]) Miscellaneous no charge Diagnosis: Essential (primary) hypertension[ICD10: I10] Pebbles Burden MD [facility] CPT-4: 39889 12/20/2016 ([id number]) [id number] EST. PATIENT, LEVEL IV Diagnosis: Essential (primary) hypertension[ICD10: I10] Diagnosis: Major depressive disorder, recurrent, mild[ICD10: F33.0] Diagnosis: Headache[ICD10: R51] Diagnosis: Other fatigue[ICD10: R53.83] Kim Burden MD [facility] CPT- 4: 85646 12/11/2016 ([id number]) [id number] EST. PATIENT, LEVEL IV Diagnosis: Essential (primary) hypertension[ICD10: I10] Diagnosis: Other allergic rhinitis[ICD10: J30.89] Diagnosis: Gastro-esophageal reflux disease without esophagitis[ICD10: K21.9] Kim Burden MD [facility] CPT-4: 61802 10/15/2016 [id number]) [id number] EST. PATIENT, LEVEL III Diagnosis: Essential (primary) hypertension[ICD10: I10] Diagnosis: Major depressive disorder, recurrent, mild[ICD10: F33.0] Kim Burden MD [facility] CPT-4: 70332 07/17/2016 ([id number]) [id number] EST. PATIENT, LEVEL III Diagnosis: Pain in left hip[ICD10: M25.552] Diagnosis: Acute laryngopharyngitis[ICD10: J06.0] Kim Burden MD, [facility] CPT-4: 25439 05/15/2016 ([id number]) [id number] EST. PATIENT, LEVEL III Diagnosis: Fracture of unspecified parts of lumbosacral spine and pelvis, initial encounter for closed fracture[ICD10: S32.9XXA] Diagnosis: Essential (primary) hypertension[ICD10: I10] Kim Burden MD, [facility] CPT-4: 66073 04/23/2016 [id number] EST. PATIENT, LEVEL IV Diagnosis: Acute laryngopharyngitis[ICD10: J06.0] Diagnosis: Other allergic rhinitis[ICD10: J30.89] Pebbles Burden MD, [facility] CPT-4: 59437 03/14/2016 [id number] EST. PATIENT, LEVEL IV Diagnosis: Dysuria[ICD10: R30.0] Diagnosis: Left lower quadrant pain[ICD10: R10.32] Pebbles Burden MD, [facility] CPT-4: 40289 02/19/2016 ([id number]) 61136 EST. PATIENT, LEVEL IV Diagnosis: Essential (primary) hypertension[ICD10: I10] Diagnosis: Gastro-esophageal reflux disease without esophagitis[ICD10: K21.9] Diagnosis: Major depressive disorder, recurrent, mild[ICD10: F33.0] [facility] CPT-4: 63726 12/19/2015 ([id number]) 64678 EST. PATIENT, LEVEL IV Diagnosis: ESSENTIAL HYPERTENSION[ICD9: 401.9] Diagnosis: ACUTE URI[ICD9: 465.9] [facility] CPT-4: 38051 03/06/2015 ([id number]) OFFICE VISIT, NEW - LEVEL 4 Diagnosis: ESOPHAGEAL REFLUX[ICD9: 530.81] Diagnosis: ESSENTIAL HYPERTENSION[ICD9: 401.9] Diagnosis: COPD (chronic obstructive pulmonary disease)[ICD9: 496] Diagnosis: ALLERGIC RHINITIS[ICD9: 477.9] Mallorie Burden MD, [facility] CPT-4: 01395 02/07/2015 Plan of Care Planned Activity Notes Codes Status Date Visit Plan: Hypertension - well controlled - continue with current medications, continue with no added salt diet. Pt has been encouraged to exercise daily. The pt has been advised to call the office if there are any acute concerns about change in blood pressure readings at home. Left knee pain - pt had palpable fluid collection of knee - area was drained of 10mL of bloody fluid from her left knee and steroid injected into the knee joint. Joint effusion on left and Left knee Joint Injection - Pt was given post - injection instructions. The pt has been advised to use anti-inflammatories post injection today, ice to the injected site, call if redness, warmth, or increased pain occurs at the site of injection. 10/16/2017 Patient Education: Patient Medication Summary Completed 10/16/2017 Visit Plan: Thoracic back pain - x-ray showed compression fracture of lower thoracic vertebrae - pt still having significant pain - will order MRI and schedule pt for kyphoplasty - pt is to notify clinic if symptoms do not improve, if they worsen, or with any acute changes, questions, or concerns. 09/03/2017 Appointment: Pebbles Lund WPtel[facility] (15 min) Moderate 09/03/2017 Patient Education: Patient Medication Summary Completed 09/03/2017 Appointment: Kim Burden [facility]Ptel[facility] (15 min) Moderate 08/11/2017 Appointment: Kim Burden WPtel: [facility]5 [facility] (15 min) Moderate 08/11/2017 Patient Education: Patient Medication Summary Completed 08/11/2017 Visit Plan: Hypertension - well controlled - continue with current medications, continue with no added salt diet. Pt has been encouraged to exercise daily. The pt has been advised to call the office if there are any acute concerns about change in blood pressure readings at home. COPD - chronic problem for this patient. We have reviewed chronic treatment strategy, symptom control, and plans for acute exacerbations. No changes today to the current treatment plan as the patient is stable, monitor for acute changes. Pt oxygen dependent - chronic, continue with current treatment. 07/31/2017 Appointment: Kim Burdentel: [facility] (15 min) Moderate 07/31/2017 Patient Education: Patient Medication Summary Completed 07/31/2017 Appointment: Nurse Visit 07/18/2017 Patient Education: Patient Medication Summary Completed 07/18/2017 Patient Education: Patient Medication Summary Completed 07/18/2017 Appointment: Kim Burden WPtel: [facility] [place] (15 min) Moderate 06/30/2017 Visit Plan: Effusion left knee-fall 2 weeks ago-recommend compression of joint and refer to Ortho for evaluation and treatment-will refer to Dr Pryor/Quinton Mccormick. Patient verbalized understanding of plan. 06/16/2017 Appointment: Mallorie Wetzel WPtel: [phone] [phone] [place] (30 min) Complex 06/16/2017 Patient Education: Patient Medication Summary Completed 06/16/2017 Visit Plan: Hypertension - well controlled - continue with current medications, continue with no added salt diet. Pt has been encouraged to exercise daily. The pt has been advised to call the office if there are any acute concerns about change in blood pressure readings at home. Unsteadiness on feet - recommended therapy - pt reports that she is not interested at this time. Pt does not wear her oxygen as directed, pt advised to continue with oxygen when active. 05/28/2017 Appointment: Kim Burden WPtel: [facility] [place] (15 min) Moderate 05/28/2017 Patient Education: Patient Medication Summary Completed 05/28/2017 Visit Plan: Hypertension - well controlled - continue with current medications, continue with no added salt diet. Pt has been encouraged to exercise daily. The pt has been advised to call the office if there are any acute concerns about change in blood pressure readings at home. COPD - chronic problem for this patient. We have reviewed chronic treatment strategy, symptom control, and plans for acute exacerbations. No changes today to the current treatment plan as the patient is stable, monitor for acute changes. 05/05/2017 Appointment: Kim Burden [facility]Ptel[facility] (15 min) Moderate 05/05/2017 Patient Education: Patient Medication Summary Completed 05/05/2017 Visit Plan: Hypertension - well controlled - continue with current medications, continue with no added salt diet. Pt has been encouraged to exercise daily. The pt has been advised to call the office if there are any acute concerns about change in blood pressure readings at home. Chronic neutropenia - stable for years - no change in plans for monitoring - repeat cbc with differential in 4 months Chronic Depression and anxiety - the pt has symptoms of chronic anxiety and depression that have been fairly well controlled since the last office visit. The pt has expected periods of exacerbation with abatement of the symptoms with change in situational exposure. No change in current medications. 03/13/2017 Appointment: Kim Burden WPtel: [phone] [facility] (15 min) Moderate 03/13/2017 Patient Education: Patient Medication Summary Completed 03/13/2017 Visit Plan: Hypertension - uncontrolled - the patient's medications have been modified as documented in the visit note. The patient has been counseled to cut back on salt in diet for a no added salt diet, low fat diet, start an exercise program with low weight bearing exercises and higher aerobic activity for heart health. The patient is to check blood pressure readings as an outpatient and either fax, call, or email the readings to the office next week for practitioner to review. The pt is to call for acute concerns. COPD - recommended pt to use oxygen, and call if symptoms worsening. 02/10/2017 Appointment: Kim Burden [facility]Ptel[phone] (15 min) Moderate 02/10/2017 Patient Education: Patient Medication Summary Completed 02/10/2017 Visit Plan: COPD - chronic problem for this patient. We have reviewed chronic treatment strategy, symptom control, and plans for acute exacerbations. No changes today to the current treatment plan as the patient is stable, monitor for acute changes. Hypertension - well controlled - continue with current medications, continue with no added salt diet. Pt has been encouraged to exercise daily. The pt has been advised to call the office if there are any acute concerns about change in blood pressure readings at home. Esophageal Reflux - the patient has been counseled against excessive intake of caffeine, spicy foods, peppermint, and cinnamon - all of which can exacerbate esophageal reflux. The patient is to take medications as prescribed and call the office if the symptoms are not improving. 01/14/2017 Appointment: Kim Burden WPtel: [phone] [facility] [place] (15 min) Moderate 01/14/2017 Patient Education: Patient Medication Summary Completed 01/14/2017 Visit Plan: Dehydration, palpitations, malaise, headache - will send for outpatient fluids, will check labs, ekg. Pt is to restart her spironolactone, continue to monitor blood pressures and heart rates and notify clinic if symptoms do not improve, if they worsen, or with any questions or concerns. 01/07/2017 Appointment: Pebbles Lund WPtel: [phone] [facility] [place] (30 min) Complex 01/07/2017 Patient Education: Patient Medication Summary Completed 01/07/2017 Appointment: Nurse Visit 01/02/2017 Patient Education: Patient Medication Summary Completed 01/02/2017 Visit Plan: COPD - chronic problem for this patient. We have reviewed chronic treatment strategy, symptom control, and plans for acute exacerbations. No changes today to the current treatment plan as the patient is stable, monitor for acute changes. On room air spO2 sat 84%, with 2 L O2 per NC pt's spO2 was 97%. Will order portable O2 for pt. pt is on chronic antihypertensive medication - the medication has been adjusted down to attempt to alleviate the low blood pressures. 01/01/2017 Visit Plan: COPD - chronic problem for this patient. We have reviewed chronic treatment strategy, symptom control, and plans for acute exacerbations. No changes today to the current treatment plan as the patient is stable, monitor for acute changes. Resting on room air spO2 sat 84%, Resting with 2 L O2 per NC pt's spO2 was 97%. Will order portable O2 for pt. pt is on chronic antihypertensive medication - the medication has been adjusted down to attempt to alleviate the low blood pressures. 01/01/2017 Appointment: Pebbles Lund WPtel[phone] [place] (30 min) Complex 01/01/2017 Patient Education: Patient Medication Summary Completed 01/01/2017 Appointment: Nurse Visit 12/20/2016 Patient Education: Patient Medication Summary Completed 12/20/2016 Patient Education: Hypertension Completed 12/20/2016 Visit Plan: Medicare Exam - today we discussed the patients past history, immunizations, preventative exams/evaluations - colonoscopy, fecal occult blood testing, routine labs for renal function, glucose, cholesterol, osteoporosis evaluations, cardiovascular testing and cancer screenings. We have also discussed mental health and the signs/symptoms of depression. The patient was advised of home safety evaluations and the need to make sure that as the aging process continues, we need to be aware of different ways to make the home a safer place to reside. The patient has also been counseled that exercise is necessary - and of utmost importance as we age to help decrease fall risk and to maintain independece in the home. Today we discussed the need for the patient to create paperwork for Advanced directives as well as for the patient to provide this office with a copy of her DOPA paperwork for health care surrogate. 12/12/2016 Appointment: Pebbles Lund WPtel: [phone] [facility] [facility] - Annual Wellness Visit 12/12/2016 Patient Education: Patient Medication Summary Completed 12/12/2016 Visit Plan: Hypertension - uncontrolled - the patient's medications have been modified as documented in the visit note. The patient has been counseled to cut back on salt in diet for a no added salt diet, low fat diet, start an exercise program with low weight bearing exercises and higher aerobic activity for heart health. The patient is to check blood pressure readings as an outpatient and either fax, call, or email the readings to the office next week for practitioner to review. The pt is to call for acute concerns. Hx of nocturnal hypoxemia - pt stopped using the oxygen years ago - Pt is having issues at night with waking up and falling or passing out when going to the bathroom. she also has morning headaches which are often associated with hypoxemia at night. I have advised that we check an overnight oxygen since she has history of reported nocturnal oxygen drops and she has been having acute trouble with dizziness at night which may be directly related to nocturnal hypoxemia. Depression - no change in meds at this time. 12/11/2016 Visit Plan: Hypertension - uncontrolled - the patient's medications have been modified as documented in the visit note. The patient has been counseled to cut back on salt in diet for a no added salt diet, low fat diet, start an exercise program with low weight bearing exercises and higher aerobic activity for heart health. The patient is to check blood pressure readings as an outpatient and either fax, call, or email the readings to the office next week for practitioner to review. The pt is to call for acute concerns. Hx of nocturnal hypoxemia - pt stopped using the oxygen years ago - Pt is having issues at night with waking up and falling or passing out when going to the bathroom. she also has morning headaches which are often associated with hypoxemia at night. I have advised that we check an overnight oxygen since she has history of reported nocturnal oxygen drops and she has been having acute trouble with dizziness at night which may be directly related to nocturnal hypoxemia. Depression - no change in meds at this time. 12/11/2016 Appointment: Kim Burden WPtel: [facility]0 [facility] (15 min) Moderate 12/11/2016 Patient Education: Patient Medication Summary Completed 12/11/2016 Appointment: Mallorie Wetzel WPtel: [phone] [phone] (30 min) Complex 12/10/2016 Visit Plan: Hypertension - well controlled - continue with current medications, continue with no added salt diet. Pt has been encouraged to exercise daily. The pt has been advised to call the office if there are any acute concerns about change in blood pressure readings at home. Esophageal Reflux - the patient has been counseled against excessive intake of caffeine, spicy foods, peppermint, and cinnamon - all of which can exacerbate esophageal reflux. The patient is to take medications as prescribed and call the office if the symptoms are not improving. 10/15/2016 Appointment: Kim Burden [facility]Ptel: [phone] (15 min) Moderate 10/15/2016 Patient Education: Patient Medication Summary Completed 10/15/2016 Appointment: Injection 08/28/2016 Patient Education: Patient Medication Summary Completed 08/28/2016 Visit Plan: Hypertension - well controlled - continue with current medications, continue with no added salt diet. Pt has been encouraged to exercise daily. The pt has been advised to call the office if there are any acute concerns about change in blood pressure readings at home. Depression - has improved - continue with lexapro. 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 07/17/2016 Appointment: Kim Burden WPtel: [phone] [facility] (15 min) Moderate 07/17/2016 Patient Education: Patient Medication Summary Completed 07/17/2016 Appointment: Kim Burden WPtel: [phone] [phone] (15 min) Moderate 06/10/2016 Visit Plan: Hip pain - persistent but improving - continue with current treatment plan. Pt to call if her symptoms are not improving or if her hip pain worsens. URI symptoms - supportive care, use otc allergy medications. 05/15/2016 Appointment: Kim Burden WPtel: [facility] (15 min) Moderate 05/15/2016 Patient Education: Patient Medication Summary Completed 05/15/2016 Visit Plan: HTN - blood pressure too well controlled - recommend pt to stop amlodipine, monitor blood pressure at home and call if pressure starts to rise too quickly. Pelvic pain improving per patient report - pt has been advised that she needs to keep her activities easy, slowly advance movements - call if not improving. 04/23/2016 Appointment: Kim Burden WPtel: [phone] [facility] [place] (15 min) Moderate 04/23/2016 Patient Education: Patient Medication Summary Completed 04/23/2016 Patient Education: Hypertension Completed 04/23/2016 Care Plan: X-RAY EXAM OF ABDOMEN LOINC : 64800-8 Pending 03/18/2016 Visit Plan: URI - Pt advised to increase fluids, vitamin C. Discussed natural and expected course of this diagnosis and need to alert me if symptoms do not follow expected course, or if any worse. RX sent to patient' s pharmacy. Allergies - chronic - recommended pt to use allergy medication as prescribed. Pt has been counseled as to the appropriate use of the medication. Pt to call if allergy symptoms are not controlled with the medication. If using nasal spray, instructions as follows: Nasal spray- use twice daily, one spray per nostril twice daily, after 30 minutes, rinse out nose with saline spray.. Use opposite hand per nostril to spray in the nasal steroid allergy spray. 03/14/2016 Appointment: Pebbles Lund WPtel: [phone] [facility] (30 min) Complex 03/14/2016 Patient Education: Patient Medication Summary Completed 03/14/2016 Patient Education: Patient Medication Summary Completed 02/29/2016 Visit Plan: Flank pain - pt is currently being treated for UTI, but is having continued left flank pain - will get KUB - pt is to notify clinic if symptoms do not improve, or with any concerns. 02/19/2016 Appointment: Pebbles Lund WPtel: [phone] [facility] (30 min) Complex 02/19/2016 Patient Education: Patient Medication Summary Completed 02/19/2016 Appointment: Kim Burden WPtel: [phone] [phone] (15 min) Moderate 01/22/2016 Visit Plan: Hypertension - well controlled - continue with current medications, continue with no added salt diet. Pt has been encouraged to exercise daily. The pt has been advised to call the office if there are any acute concerns about change in blood pressure readings at home. Depression - uncontrolled - Pt has been counseled about the diagnosis of depression, the potential causes, and risks associated with the diagnosis. The pt denies suicidal ideation, or plans. The patient has been counseled about treatment options, and understands the risks associated with treatment of depression, as well as the risks associated with NOT treating the depression. I believe the pt will benefit from medical intervention and an antidepressant has been appropriately prescribed for this patient Esophageal Reflux - the patient has been counseled against excessive intake of caffeine, spicy foods, peppermint, and cinnamon - all of which can exacerbate esophageal reflux. The patient is to take medications as prescribed and call the office if the symptoms are not improving. 12/19/2015 Appointment: [facility]el[phone] (15 min) Moderate 12/19/2015 Patient Education: Patient Medication Summary Completed 12/19/2015 Patient Education: Hypertension Completed 12/19/2015 Visit Plan: Hypertension - uncontrolled - the patient's medications have been modified as documented in the visit note. The patient has been counseled to cut back on salt in diet for a no added salt diet, low fat diet, start an exercise program with low weight bearing exercises and higher aerobic activity for heart health. The patient is to check blood pressure readings as an outpatient and either fax, call, or email the readings to the office next week for practitioner to review. The pt is to call for acute concerns. URI - Pt advised to increase fluids, vitamin C. Discussed natural and expected course of this diagnosis and need to alert me if symptoms do not follow expected course, or if any worse. Finish RX. 03/06/2015 Appointment: Kim Burden WPtel: [facility] Follow up 03/06/2015 Patient Education: Patient Medication Summary Completed 03/06/2015 Patient Education: Hypertension Completed 03/06/2015 Visit Plan: Hypertension - elevated today- The patient has been counseled to cut back on salt in diet for a no added salt diet, low fat diet, start an exercise program with low weight bearing exercises and higher aerobic activity for heart health. The patient is to check blood pressure readings as an outpatient and either fax, call, or email the readings to the office next week for practitioner to review. The pt is to call for acute concerns. Esophageal Reflux - the patient has been counseled against excessive intake of caffeine, spicy foods, peppermint, and cinnamon - all of which can exacerbate esophageal reflux. The patient is to take medications as prescribed and call the office if the symptoms are not improving. CHANGE TO OMEPRAZOLE BUT TAKE IT TWICE DAILY-START CARAFATE COPD - chronic problem for this patient. We have reviewed chronic treatment strategy, symptom control, and plans for acute exacerbations. No changes today to the current treatment plan as the patient is stable, monitor for acute changes. Allergies - chronic - recommended pt to use allergy medication as prescribed. Pt has been counseled as to the appropriate use of the medication. Pt to call if allergy symptoms are not controlled with the medication. Kenalog injection today in the office. 02/07/2015 Patient Education: Patient Medication Summary Completed 02/07/2015 Patient Education: Hypertension Completed 02/07/2015 Care Plan: SCREENINGMAMMOGRAPHYDIGITAL LOINC : 80461-1 Ordered 02/07/2015 Care Plan: COMPLETE CBC AUTOMATED LOINC : 39058-7 Ordered 02/07/2015 Instructions Comment . Dehydration, palpitations, malaise, headache - will send for outpatient fluids, will check labs, ekg. Pt is to restart her spironolactone, continue to monitor blood pressures and heart rates and notify clinic if symptoms do not improve, if they worsen, or with any questions or concerns. . Thoracic back pain - x-ray showed compression fracture of lower thoracic vertebrae - pt still having significant pain - will order MRI and schedule pt for kyphoplasty - pt is to notify clinic if symptoms do not improve, if they worsen, or with any acute changes, questions, or concerns. decrease omeprazole to 20mg at bedtime start on a probiotic to help decrease GI upset./loose stools - [employer] or [employer] . Hypertension - well controlled - continue with current medications, continue with no added salt diet. Pt has been encouraged to exercise daily. The pt has been advised to call the office if there are any acute concerns about change in blood pressure readings at home. Esophageal Reflux - the patient has been counseled against excessive intake of caffeine, spicy foods, peppermint, and cinnamon - all of which can exacerbate esophageal reflux. The patient is to take medications as prescribed and call the office if the symptoms are not improving. . Medicare Exam - today we discussed the patients past history, immunizations, preventative exams/evaluations - colonoscopy, fecal occult blood testing, routine labs for renal function, glucose, cholesterol, osteoporosis evaluations, cardiovascular testing and cancer screenings. We have also discussed mental health and the signs/symptoms of depression. The patient was advised of home safety evaluations and the need to make sure that as the aging process continues, we need to be aware of different ways to make the home a safer place to reside. The patient has also been counseled that exercise is necessary - and of utmost importance as we age to help decrease fall risk and to maintain independece in the home. Today we discussed the need for the patient to create paperwork for Advanced directives as well as for the patient to provide this office with a copy of her DOPA paperwork for health care surrogate. TAKE WITH FOOD AND [employer] ([facility]) . URI - Pt advised to increase fluids, vitamin C. Discussed natural and expected course of this diagnosis and need to alert me if symptoms do not follow expected course, or if any worse. RX sent to patient's pharmacy. Allergies - chronic - recommended pt to use allergy medication as prescribed. Pt has been counseled as to the appropriate use of the medication. Pt to call if allergy symptoms are not controlled with the medication. If using nasal spray, instructions as follows: Nasal spray- use twice daily, one spray per nostril twice daily, after 30 minutes, rinse out nose with saline spray.. Use opposite hand per nostril to spray in the nasal steroid allergy spray. . Hypertension - well controlled - continue with current medications, continue with no added salt diet. Pt has been encouraged to exercise daily. The pt has been advised to call the office if there are any acute concerns about change in blood pressure readings at home. Chronic neutropenia - stable for years - no change in plans for monitoring - repeat cbc with differential in 4 months Chronic Depression and anxiety - the pt has symptoms of chronic anxiety and depression that have been fairly well controlled since the last office visit. The pt has expected periods of exacerbation with abatement of the symptoms with change in situational exposure. No change in current medications. . Hip pain - persistent but improving - continue with current treatment plan. Pt to call if her symptoms are not improving or if her hip pain worsens. URI symptoms - supportive care, use otc allergy medications. . COPD - chronic problem for this patient. We have reviewed chronic treatment strategy, symptom control, and plans for acute exacerbations. No changes today to the current treatment plan as the patient is stable, monitor for acute changes. On room air spO2 sat 84%, with 2 L O2 per NC pt's spO2 was 97%. Will order portable O2 for pt. pt is on chronic antihypertensive medication - the medication has been adjusted down to attempt to alleviate the low blood pressures. . COPD - chronic problem for this patient. We have reviewed chronic treatment strategy, symptom control, and plans for acute exacerbations. No changes today to the current treatment plan as the patient is stable, monitor for acute changes. Resting on room air spO2 sat 84%, Resting with 2 L O2 per NC pt's spO2 was 97%. Will order portable O2 for pt. pt is on chronic antihypertensive medication - the medication has been adjusted down to attempt to alleviate the low blood pressures. . Hypertension - well controlled - continue with current medications, continue with no added salt diet. Pt has been encouraged to exercise daily. The pt has been advised to call the office if there are any acute concerns about change in blood pressure readings at home. Depression - has improved - continue with lexapro. 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 CHECK YOUR BLOOD PRESSURE AND PULSE AT HOME AND BRING YOUR READINGS TO YOUR NEXT APPOINTMENT . Hypertension - elevated today- The patient has been counseled to cut back on salt in diet for a no added salt diet, low fat diet, start an exercise program with low weight bearing exercises and higher aerobic activity for heart health. The patient is to check blood pressure readings as an outpatient and either fax , call, or email the readings to the office next week for practitioner to review. The pt is to call for acute concerns. Esophageal Reflux - the patient has been counseled against excessive intake of caffeine, spicy foods, peppermint, and cinnamon - all of which can exacerbate esophageal reflux. The patient is to take medications as prescribed and call the office if the symptoms are not improving. CHANGE TO OMEPRAZOLE BUT TAKE IT TWICE DAILY-START CARAFATE COPD - chronic problem for this patient. We have reviewed chronic treatment strategy, symptom control, and plans for acute exacerbations. No changes today to the current treatment plan as the patient is stable, monitor for acute changes. Allergies - chronic - recommended pt to use allergy medication as prescribed. Pt has been counseled as to the appropriate use of the medication. Pt to call if allergy symptoms are not controlled with the medication. Kenalog injection today in the office. change the metoprolol to 1 pill in the morning and 1.5 pills at bedtime. bring a reading of your blood pressure and heart rate to the office in one week. - make a rosetta that says MICHELLE on the days that you have headaches. . Hypertension - uncontrolled - the patient's medications have been modified as documented in the visit note. The patient has been counseled to cut back on salt in diet for a no added salt diet, low fat diet, start an exercise program with low weight bearing exercises and higher aerobic activity for heart health. The patient is to check blood pressure readings as an outpatient and either fax , call, or email the readings to the office next week for practitioner to review. The pt is to call for acute concerns. Hx of nocturnal hypoxemia - pt stopped using the oxygen years ago - Pt is having issues at night with waking up and falling or passing out when going to the bathroom. she also has morning headaches which are often associated with hypoxemia at night. I have advised that we check an overnight oxygen since she has history of reported nocturnal oxygen drops and she has been having acute trouble with dizziness at night which may be directly related to nocturnal hypoxemia. Depression - no change in meds at this time. change the metoprolol to 1 pill in the morning and 1.5 pills at bedtime. bring a reading of your blood pressure and heart rate to the office in one week. - make a rosetta that says MICHELLE on the days that you have headaches. . Hypertension - uncontrolled - the patient's medications have been modified as documented in the visit note. The patient has been counseled to cut back on salt in diet for a no added salt diet, low fat diet, start an exercise program with low weight bearing exercises and higher aerobic activity for heart health. The patient is to check blood pressure readings as an outpatient and either fax , call, or email the readings to the office next week for practitioner to review. The pt is to call for acute concerns. Hx of nocturnal hypoxemia - pt stopped using the oxygen years ago - Pt is having issues at night with waking up and falling or passing out when going to the bathroom. she also has morning headaches which are often associated with hypoxemia at night. I have advised that we check an overnight oxygen since she has history of reported nocturnal oxygen drops and she has been having acute trouble with dizziness at night which may be directly related to nocturnal hypoxemia. Depression - no change in meds at this time. Liquid Vitamin B12 or Vitamin B12 dissolving (sublingual) tabs - these are over the counter - take 2000 units daily. . Hypertension - well controlled - continue with current medications, continue with no added salt diet. Pt has been encouraged to exercise daily. The pt has been advised to call the office if there are any acute concerns about change in blood pressure readings at home. Unsteadiness on feet - recommended therapy - pt reports that she is not interested at this time. Pt does not wear her oxygen as directed, pt advised to continue with oxygen when active. . Hypertension - well controlled - continue with current medications, continue with no added salt diet. Pt has been encouraged to exercise daily. The pt has been advised to call the office if there are any acute concerns about change in blood pressure readings at home. Left knee pain - pt had palpable fluid collection of knee - area was drained of 10mL of bloody fluid from her left knee and steroid injected into the knee joint. Joint effusion on left and Left knee Joint Injection - Pt was given post - injection instructions. The pt has been advised to use anti-inflammatories post injection today, ice to the injected site, call if redness, warmth, or increased pain occurs at the site of injection. . COPD - chronic problem for this patient. We have reviewed chronic treatment strategy, symptom control, and plans for acute exacerbations. No changes today to the current treatment plan as the patient is stable, monitor for acute changes. Hypertension - well controlled - continue with current medications, continue with no added salt diet. Pt has been encouraged to exercise daily. The pt has been advised to call the office if there are any acute concerns about change in blood pressure readings at home. Esophageal Reflux - the patient has been counseled against excessive intake of caffeine, spicy foods, peppermint, and cinnamon - all of which can exacerbate esophageal reflux. The patient is to take medications as prescribed and call the office if the symptoms are not improving. . Flank pain - pt is currently being treated for UTI, but is having continued left flank pain - will get KUB - pt is to notify clinic if symptoms do not improve, or with any concerns. increase current supply of (norvasc) AMLODIPINE 2.5mg daily to 5mg daily. . Hypertension - uncontrolled - the patient's medications have been modified as documented in the visit note. The patient has been counseled to cut back on salt in diet for a no added salt diet, low fat diet, start an exercise program with low weight bearing exercises and higher aerobic activity for heart health. The patient is to check blood pressure readings as an outpatient and either fax , call, or email the readings to the office next week for practitioner to review. The pt is to call for acute concerns. URI - Pt advised to increase fluids, vitamin C. Discussed natural and expected course of this diagnosis and need to alert me if symptoms do not follow expected course, or if any worse. Finish RX. . HTN - blood pressure too well controlled - recommend pt to stop amlodipine, monitor blood pressure at home and call if pressure starts to rise too quickly. Pelvic pain improving per patient report - pt has been advised that she needs to keep her activities easy, slowly advance movements - call if not improving. Compression left knee with ru wrap Refer to Dr Pryor/Quinton Mccormick for evaluation . Effusion left knee-fall 2 weeks ago-recommend compression of joint and refer to Ortho for evaluation and treatment-will refer to Dr Pryor/Quinton Mccormick. Patient verbalized understanding of plan. . Hypertension - well controlled - continue with current medications, continue with no added salt diet. Pt has been encouraged to exercise daily. The pt has been advised to call the office if there are any acute concerns about change in blood pressure readings at home. COPD - chronic problem for this patient. We have reviewed chronic treatment strategy, symptom control, and plans for acute exacerbations. No changes today to the current treatment plan as the patient is stable, monitor for acute changes. . Hypertension - well controlled - continue with current medications, continue with no added salt diet. Pt has been encouraged to exercise daily. The pt has been advised to call the office if there are any acute concerns about change in blood pressure readings at home. COPD - chronic problem for this patient. We have reviewed chronic treatment strategy, symptom control, and plans for acute exacerbations. No changes today to the current treatment plan as the patient is stable, monitor for acute changes. Pt oxygen dependent - chronic, continue with current treatment. restart the metoprolol 50mg pill and take 1/2 of a pill twice daily. . Hypertension - uncontrolled - the patient's medications have been modified as documented in the visit note. The patient has been counseled to cut back on salt in diet for a no added salt diet, low fat diet, start an exercise program with low weight bearing exercises and higher aerobic activity for heart health. The patient is to check blood pressure readings as an outpatient and either fax , call, or email the readings to the office next week for practitioner to review. The pt is to call for acute concerns. COPD - recommended pt to use oxygen, and call if symptoms worsening. . Hypertension - well controlled - continue with current medications, continue with no added salt diet. Pt has been encouraged to exercise daily. The pt has been advised to call the office if there are any acute concerns about change in blood pressure readings at home. Depression - uncontrolled - Pt has been counseled about the diagnosis of depression, the potential causes, and risks associated with the diagnosis. The pt denies suicidal ideation, or plans. The patient has been counseled about treatment options, and understands the risks associated with treatment of depression, as well as the risks associated with NOT treating the depression. I believe the pt will benefit from medical intervention and an antidepressant has been appropriately prescribed for this patient Esophageal Reflux - the patient has been counseled against excessive intake of caffeine, spicy foods, peppermint, and cinnamon - all of which can exacerbate esophageal reflux. The patient is to take medications as prescribed and call the office if the symptoms are not improving.
--- OUTSIDE RECORDS SUMMARY | 2017-11-30 11:08 | XMS REPORT | CCD ---
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 Name Role Phone PP Unavailable CCM Unavailable Summary Purpose Interface Exchange Insurance Providers Payer name Policy type / Coverage type Covered constitution party ID Effective Begin Date Effective End Date WPS Medicare Part B Medicare Part B [id number] Unknown AETNA Medicare Part B [id number] Unknown Family history Brother Diagnosis Age At [...] 02/07/2015 Employment Unknown Currently employed works at [employer] 02/07/[address]: 5349792 Quit over 10 years ago 199302/07/2015 Number of years using tobacco Unknown 20 - 30 02/07/2015 Alcohol history Unknown occasionally drinks alcohol 02/07/2015 Allergies, Adverse Reactions, Alerts Allergies, Adverse Reactions, Alerts data not found Past Medical History Illness Codes Condition Status Onset Date Resolved Date Essential (primary) hypertension ICD-9: 401.1 ICD-10: I10 Active 01/14/2017 Unknown Pain in thoracic spine ICD-9: 724.1 ICD-10: M54.6 Active 09/03/2017 Unknown Abnormal levels of other serum enzymes ICD-9: 790.5 ICD-10: R74.8 Active 07/18/2017 Unknown Other emphysema ICD-9 : 492.8 ICD-10: J43.8 Active 07/31/2017 Unknown Calculus of gallbladder without cholecystitis without obstruction ICD-9: 574.20 ICD-10: K80.20 Active 07/18/2017 Unknown Effusion, left knee ICD-9: 719.06 ICD-10: M25.462 Active 06/16/2017 Unknown Pain in left knee ICD- 9: 719.46 ICD-10: M25.562 Active 06/16/2017 Unknown Unsteadiness on feet ICD-9: 781.2 ICD-10: [...] Problems Condition Codes Effective Dates Condition Status Essential (primary) hypertension ICD-9: 401.1 ICD-10: I10 01/14/2017 Active Pain in thoracic spine ICD-9: 724.1 ICD-10: M54.6 09/03/2017 Active Abnormal levels of other serum enzymes ICD-9: 790.5 ICD-10: R74.8 07/18/2017 Active Other emphysema ICD-9 : 492.8 ICD-10: J43.8 07/31/2017 Active Calculus of gallbladder without cholecystitis without obstruction ICD-9: 574.20 ICD-10: K80.20 07/18/2017 Active Effusion, left knee ICD-9: 719.06 ICD-10: M25.462 06/16/2017 Active Pain in left knee ICD- 9: 719.46 ICD-10: M25.562 06/16/2017 Active Unsteadiness on feet ICD-9: 781.2 ICD-10: [...] Start Date Stop Date Status Fill Instructions ibuprofen 800 mg tablet RxNorm: 573344 TAKE 1 TABLET THREE TIMES DAILY 10/15/2017 01/07/2019 Active Lexapro 10 mg tablet RxNorm: 157759 TAKE 1 TABLET EVERY DAY 10/09/2018 Active hydrocodone 5 mg-acetaminophen 325 mg tablet RxNorm: 493727 1 Tablet(s) PO QID as needed 09/03/2017 No Stop Date Active omeprazole 20 mg capsule,delayed release RxNorm: 837636 1 Capsule(s) PO BID 09/02/2017 08/27/2018 Active alprazolam 1 mg tablet RxNorm: 851732 1 Tablet(s) PO TID 201605/27/2018 Active metoprolol tartrate 50 mg tablet RxNorm: 471591 1/2 Tablet(s) PO BID 06/26/2017 06/20/2018 Active omeprazole 20 mg capsule,delayed release RxNorm: 663486 1 Capsule(s) PO BID 06/05/2017 09/01/2017 Inactive omeprazole 20 mg capsule,delayed release RxNorm: 162858 1 Capsule(s) PO BID 05/28/2017 06/04/2017 Inactive omeprazole 20 mg capsule,delayed release RxNorm: 345101 1 Capsule(s) PO QPM 05/27/2017 05/27/2017 Inactive Breo Ellipta 100 mcg-25 mcg/dose powder for inhalation RxNorm: 9507023 1 INH daily 05/05/2017 04/29/2018 Active losartan 100 mg tablet RxNorm: 753210 1 Tablet(s) PO QPM 201602/04/2018 Active alprazolam 1 mg tablet RxNorm: 730363 1 Tablet(s) PO TID 201608/07/2017 Inactive metoprolol tartrate 50 mg tablet RxNorm: 770162 1/2 Tablet(s) PO BID 02/10/2017 06/25/2017 Inactive losartan 50 mg tablet RxNorm: 432884 2 Tablet(s) PO QPM 201602/09/2017 Inactive Diflucan 150 mg tablet RxNorm: 790607 1 Tablet(s) PO daily 01/22/2017 Inactive please call pt to let herknow when to pick- up the med Diflucan 150 mg tablet RxNorm: 952248 1 Tablet(s) PO daily 01/19/2017 Inactive please call pt to let herknow when to pick- up the med losartan 50 mg tablet RxNorm: 287685 1 Tablet(s) PO QPM 201601/22/2017 Inactive Cipro 500 mg tablet RxNorm: 302962 1 Tablet(s) PO BID 201601/17/2017 Inactive Cipro 500 mg tablet RxNorm: 008565 1 Tablet(s) PO BID 201601/07/2017 Inactive Lexapro 10 mg tablet RxNorm: 190243 TAKE 1 TABLET EVERY DAY 10/14/2017 Inactive metoprolol tartrate 50 mg tablet RxNorm: 261837 1 Tablet(s) PO in the morning and 1.5 pill at night 12/11/2016 01/13/2017 Inactive spironolactone 25 mg tablet RxNorm: 952373 TAKE 1 TABLET EVERY DAY 11/04/2016 07/31/2017 Inactive metoprolol tartrate 50 mg tablet RxNorm: 867472 TAKE 1 TABLET TWICE DAILY 10/29/2016 12/10/2016 Inactive ibuprofen 800 mg tablet RxNorm: 992733 TAKE 1 TABLET THREE TIMES DAILY 10/21/2016 10/14/2017 Inactive Astepro 0.15 % (205.5 mcg) nasal spray RxNorm: 8955905 1 [place] NASAL BID 10/15/2016 10/09/2017 Inactive Astepro 0.15 % (205.5 mcg) nasal spray RxNorm: 6913417 1 [place] NASAL BID 10/15/2016 10/14/2016 Inactive Astepro 0.15 % (205.5 mcg) nasal spray RxNorm: 5594932 1 [place] NASAL BID 10/15/2016 10/14/2016 Inactive omeprazole 20 mg capsule,delayed release RxNorm: 852149 1 Capsule(s) PO QPM 10/15/2016 05/26/2017 Inactive omeprazole 20 mg capsule,delayed release RxNorm: 031910 1 Capsule(s) QPM 10/15/2016 10/14/2016 Inactive omeprazole 20 mg capsule,delayed release RxNorm: 765261 TAKE 1 CAPSULE TWICE DAILY 09/02/2016 10/14/2016 Inactive Lexapro 10 mg tablet RxNorm: 459308 TAKE 1 TABLET EVERY DAY 12/19/2016 Inactive calcitonin (salmon) 200 unit/actuation nasal spray RxNorm: 701585 1 [place] NASAL daily ONE SPRAY PER ONE NOSTRIL DAILY- ALTERNATE NOSTRILS DAILY 05/31/2016 05/30/2016 Inactive She will do this for 3 months- If she wants to do a 3 month supply at one time she can without refill calcitonin (salmon) 200 unit/actuation nasal spray RxNorm: 326693 1 [place] NASAL daily ONE SPRAY PER ONE NOSTRIL DAILY- ALTERNATE NOSTRILS DAILY 05/31/2016 07/30/2016 Inactive x3 months- no refills Forteo 20 mcg/dose (600 mcg/2.4 mL) subcutaneous pen injector RxNorm: 7905983 1 injection SQ daily 05/22/20162015 Inactive call pt with jaramillo first Forteo 20 mcg/dose (600 mcg/2.4 mL) subcutaneous pen injector RxNorm: 9658903 1 injection SQ daily 05/22/20162015 Inactive Prolia 60 mg/mL subcutaneous syringe RxNorm: 246757 1 Milliliter(s) SQ every 6 months 05/13/2016 No Stop Date Active Please check jaramillo through insurance and let me know- Thanks! Mary Ellen alprazolam 1 mg tablet RxNorm: 936467 1 Tablet(s) PO TID 201511/01/2016 Inactive Lexapro 10 mg tablet RxNorm: 458893 TAKE 1 TABLET EVERY DAY 08/20/2016 Inactive spironolactone 25 mg tablet RxNorm: 564072 TAKE 1 TABLET EVERY DAY 04/22/2016 11/03/2016 Inactive Diflucan 150 mg tablet RxNorm: 790802 1 Tablet(s) PO daily 04/14/2016 Inactive Diflucan 150 mg tablet RxNorm: 915590 1 Tablet(s) PO daily 03/19/2016 Inactive Augmentin 500 mg-125 mg tablet RxNorm: 249257 1 Tablet(s) PO TID 03/14/2016 03/23/2016 Inactive omeprazole 20 mg capsule,delayed release RxNorm: 798931 1 Tablet(s) PO BID 03/06/2016 09/01/2016 Inactive [SAVINGS FOR NON-COVERED DRUGS -- BIN:[id number], PCN: ASPROD1, Group: XXXXX, ID# XXXXXXX, Questions: . THIS IS NOT INSURANCE.] amlodipine 5 mg tablet RxNorm: 774804 TAKE 1 TABLET EVERY DAY 03/01/2016 04/22/2016 Inactive omeprazole 20 mg tablet,delayed release RxNorm: 744529 1 Tablet(s) PO BID 02/27/2016 03/05/2016 Inactive [SAVINGS FOR NON-COVERED DRUGS -- BIN:315821, PCN: ASPROD1, Group: XXXXX, ID# XXXXXXX, Questions: . THIS IS NOT INSURANCE.] spironolactone 25 mg tablet RxNorm: 865823 TAKE 1 TABLET EVERY DAY 12/21/2015 04/21/2016 Inactive Lexapro 10 mg tablet RxNorm: 869010 1 Tablet(s) PO daily 201501/01/2016 Inactive Lexapro 10 mg tablet RxNorm: 002116 1 Tablet(s) PO daily 201502/09/2017 Inactive Lexapro 10 mg tablet RxNorm: 800849 1 Tablet(s) PO daily 201512/18/2015 Inactive alprazolam 1 mg tablet RxNorm: 957953 1 Tablet(s) PO TID 201502/28/2016 Inactive ibuprofen 800 mg tablet RxNorm: 092164 1 Tablet(s) PO TID 10/2610/20/2016 Inactive alprazolam 1 mg tablet RxNorm: 143743 1 Tablet(s) PO TID 201411/19/2015 Inactive spironolactone 25 mg tablet RxNorm: 134325 1 Tablet(s) PO daily 08/21/2015 12/20/2015 Inactive metoprolol tartrate 50 mg tablet RxNorm: 945634 1 Tablet(s) PO BID 08/10/2015 08/03/2016 Inactive [SAVINGS FOR NON-COVERED DRUGS -- BIN:957031, PCN: ASPROD1, Group : XXXXX, ID# XXXXXXX, Questions: . THIS IS NOT INSURANCE.] omeprazole 20 mg tablet,delayed release RxNorm: 890583 1 Tablet(s) PO BID 08/07/2015 02/02/2016 Inactive [SAVINGS FOR NON-COVERED DRUGS -- BIN:151089, PCN: ASPROD1, Group: XXXXX, ID# XXXXXXX, Questions: . THIS IS NOT INSURANCE.] Keflex 500 mg capsule RxNorm: 635767 1 Capsule(s) PO TID 201407/16/2015 Inactive alprazolam 1 mg tablet RxNorm: 291887 1 Tablet(s) PO TID 201408/22/2015 Inactive alprazolam 1 mg tablet RxNorm: 845394 1 Tablet(s) PO TID 201406/01/2015 Inactive amlodipine 5 mg tablet RxNorm: 844293 1 Tablet(s) PO daily 04/201502/29/2016 Inactive Nasonex 50 mcg/actuation [place] RxNorm: 163443 1 [place] NASAL daily 03/03/2015 03/02/2015 Inactive Keflex 500 mg capsule RxNorm: 832539 1 Capsule(s) PO TID 201403/02/2015 Inactive Nasonex 50 mcg/actuation [place] RxNorm: 931393 1 [place] NASAL daily 03/03/2015 05/01/2015 Inactive Keflex 500 mg capsule RxNorm: 634876 1 Capsule(s) PO TID 201403/05/2015 Inactive Carafate 1 gram tablet RxNorm: 722318 TAKE 1 TABLET FOUR TIMES DAILY 30 MINUTES BEFORE MEALS AND AT BEDTIME 02/28/2015 Inactive Kenalog 40 mg/mL suspension for injection RxNorm: 5861230 Milliliter(s) Inj 02/07/2015 02/07/2015 Inactive [SAVINGS FOR NON-COVERED DRUGS -- BIN:240498, PCN: ASPROD1, Group: XXXXX, ID# XXXXXXX, Questions: . THIS IS NOT INSURANCE.] metoprolol tartrate 50 mg tablet RxNorm: 178891 1 Tablet(s) PO BID 02/07/2015 08/09/2015 Inactive [SAVINGS FOR NON-COVERED DRUGS -- BIN:928990, PCN: ASPROD1, Group : XXXXX, ID# XXXXXXX, Questions: . THIS IS NOT INSURANCE.] Carafate 1 gram tablet RxNorm: 192203 1 Tablet(s) PO QID 201402/27/2015 Inactive 30 min before meals and at bedtime omeprazole 20 mg tablet,delayed release RxNorm: 378964 1 Tablet(s) PO BID 02/07/2015 08/05/2015 Inactive [SAVINGS FOR NON-COVERED DRUGS -- BIN:081233, PCN: ASPROD1, Group: XXXXX, ID# XXXXXXX, Questions: . THIS IS NOT INSURANCE.] Vitamin D3 2,000 unit tablet RxNorm: 802238 1 Tablet(s) PO daily No Start Date Active aspirin 81 mg tablet RxNorm: 612549 1 Tablet(s) PO daily No Start Date Active loratadine 10 mg tablet RxNorm: 037596 1 Tablet(s) PO daily No Start Date Active amlodipine 2.5 mg tablet RxNorm: 186846 1 Tablet(s) PO daily No Start Date 03/05/2015 Inactive spironolactone 25 mg tablet RxNorm: 678646 1 Tablet(s) PO daily No Start Date 08/20/2015 Inactive cetirizine 10 mg tablet RxNorm: 2610366 1 Tablet(s) PO daily No Start Date 12/18/2015 Inactive metoprolol tartrate 50 mg tablet RxNorm: 687446 1 Tablet(s) PO daily No Start Date 02/06/2015 Inactive ipratropium bromide 0.06 % nasal spray RxNorm: 638091 nasal No Start Date 12/18/2015 Inactive alprazolam 1 mg tablet RxNorm: 561935 1 Tablet(s) PO TID No Start Date 03/28/2015 Inactive Prolia 60 mg/mL subcutaneous syringe RxNorm: 592969 1 Milliliter(s) SQ every 6 months No Start Date 05/12/2016 Inactive Please check jaramillo through insurance and let me know- Thanks! Mary Ellen ibuprofen 800 mg tablet RxNorm: 894702 1 Tablet(s) PO TID No Start Date 10/25/2015 Inactive Protonix 40 mg tablet,delayed release RxNorm: 608515 1 Tablet(s) PO daily No Start Date 03/05/2015 Inactive Medication Administered Medication Codes Instructions Start Date Status Kenalog 40 mg/mL suspension for injection RxNorm: 2920074 Mill[place] 02/07/2015 No longer Active Immunizations Vaccine Codes Date Status Pneumococcal (Adult) CVX: 33 08/28/2016 completed Assessments Condition Codes Effective Dates Pain in thoracic spine ICD-10: M54.6 ICD-9: 724.1 09/03/2017 Abnormal levels of other serum enzymes ICD-10: R74.8 ICD-9: 790.5 08/11/2017 Other emphysema ICD-10: J43.8 ICD-9: 492.8 07/31/2017 Essential (primary) hypertension ICD-10: I10 ICD-9: 401.1 07/31/2017 Calculus of gallbladder without cholecystitis without obstruction ICD-10: K80.20 ICD-9: 574.20 07/18/2017 Pain in left knee ICD-10: M25.562 ICD-9: 719.46 06/16/2017 Effusion, left knee ICD-10: M25.462 ICD-9: 719.06 06/16/2017 Unsteadiness on feet ICD-10: R26.81 ICD-9: 781.2 [...] Visit Reason For Visit Effective Dates Notes back pain 09/03/2017 Hospital Follow Up 07/31/2017 [...] Item Item Code Result Date Comp Metabolic Jlq541 NA 138 mEq/L 09/03/2017 Comp Metabolic Ucf043 K 3.9 mEq/L 09/03/2017 Comp Metabolic Sek401 CL 102 mEq/L 09/03/2017 Comp Metabolic Bgk272 CO2 32.0 mEq/L 09/03/2017 Comp Metabolic Xlf005 ANION GAP 8 09/03/2017 Comp Metabolic Ubi315 GLUCOSE 89 mg/dL 09/03/2017 Comp Metabolic Ugf412 Creat 0.6 mg/dL 09/03/2017 Comp Metabolic Ujj683 eGFR 103 ml/min/1.73m2 09/03/2017 Comp Metabolic Zyb824 BUN 10 mg/dL 09/03/2017 Comp Metabolic Rep678 B/C Ratio 16.7 Ratio 09/03/2017 Comp Metabolic Tck117 CALCIUM 8.9 mg/dL 09/03/2017 Comp Metabolic Aqi547 ALK PHOS 141 U/L 09/03/2017 Comp Metabolic Oux321 AST(SGOT) 12 U/L 09/03/2017 Comp Metabolic Djl711 ALT(SGPT) 7 U/L 09/03/2017 Comp Metabolic Qwp762 BILI T 0.6 mg/dL 09/03/2017 Comp Metabolic Xrb761 ALBUMIN 3.6 g/dL 09/03/2017 Comp Metabolic Ffs088 TPRO 6.6 g/dL 09/03/2017 Comp Metabolic Sac016 GLOB 3.0 g/dL 09/03/2017 Comp Metabolic Pym993 A/G Ratio 1.2 Ratio 09/03/2017 Comp Metabolic Kzz016 Osmo 274 mOsmo 09/03/2017 Hepatic Ale519 ALBUMIN 3.7 g/dL 08/11/2017 Hepatic Kkk907 TPRO 7.0 g/dL 08/11/2017 Hepatic Yma841 GLOB 3.3 g/dL 08/11/[address] A/G Ratio 1.1 Ratio 08/11/2017 Hepatic Wqm732 ALK PHOS 85 U/L 08/11/2017 Hepatic Rnd731 ALT(SGPT) 11 U/L 08/11/2017 Hepatic Cts112 AST(SGOT) 16 U/L 08/11/2017 Hepatic Wea518 BILI T 0.6 mg/dL 08/11/2017 Hepatic Ryh944 BILI D 0.1 mg/dL 08/11/2017 Hepatic Sut683 BILI I 0.5 mg/dL 08/11/2017 Hepatic Ovs041 ALBUMIN 3.1 g/dL 07/18/2017 Hepatic Pxz452 TPRO 5.9 g/dL 07/18/2017 Hepatic Igw384 GLOB 2.8 g/dL 07/18/2017 Hepatic Oup937 A/G Ratio 1.1 Ratio 07/18/2017 Hepatic Tzs674 ALK PHOS 123 U/L 07/18/2017 Hepatic Pkv253 ALT(SGPT) 210 U/L 07/18/2017 Hepatic Iqa132 AST(SGOT) 71 U/L 07/18/2017 Hepatic Erz096 BILI T 1.1 mg/dL 07/18/2017 Hepatic Nia141 BILI D 0.4 mg/dL 07/18/2017 Hepatic Blv606 BILI I 0.7 mg/dL 07/18/2017 Cbc With [...] 32.4 pg 02/25/2017 Cbc With Differential Ord2 [place]% 7.6 % 02/25/2017 Cbc With Differential Ord2 MCHC 32.3 pg 02/25/2017 Cbc With Differential Ord2 Eos% 7.4 % 02/25/2017 Cbc With Differential Ord2 PLT 145 K/ul 02/25/2017 Cbc With Differential Ord2 Baso% 0.6 % 02/25/2017 Cbc With Differential Ord2 RDW 12.6 % 02/25/2017 Cbc With Differential Ord2 Neut ABS# 2.97 K/ul 02/25/2017 Cbc With Differential Ord2 Lymph ABS# 1.22 K/ul 02/25/2017 Cbc With Differential Ord2 [place] ABS# 0.4 K/ul 02/25/2017 Cbc With Differential Ord2 Eos ABS# 0.4 K/ul 02/25/2017 Cbc With Differential Ord2 Baso ABS# 0.0 K/ul 02/25/2017 Cbc With Differential Ord2 WBC 4.60 K/ul 01/02/2017 Cbc With Differential Ord2 RBC 4.00 M/ul 01/02/2017 Cbc With Differential Ord2 HGB 12.9 g/dl 01/02/2017 Cbc With Differential Ord2 HCT 39.2 % 01/02/2017 Cbc With Differential Ord2 Neut% 65.9 % 01/02/2017 Cbc With Differential Ord2 MCV 98.0 fl 01/02/2017 Cbc With Differential Ord2 Lymph% 19.6 % 01/02/2017 Cbc With Differential Ord2 MCH 32.3 pg 01/02/2017 Cbc With Differential Ord2 [place]% 7.8 % 01/02/2017 Cbc With Differential Ord2 Eos% 6.5 % 01/02/2017 Cbc With Differential Ord2 MCHC 32.9 pg 01/02/2017 Cbc With Differential Ord2 PLT 168 K/ul 01/02/2017 Cbc With Differential Ord2 Baso% 0.2 % 01/02/2017 Cbc With Differential Ord2 RDW 12.8 % 01/02/2017 Cbc With Differential Ord2 Neut ABS# 3.03 K/ul 01/02/2017 Cbc With Differential Ord2 Lymph ABS# 0.90 K/ul 01/02/2017 Cbc With Differential Ord2 [place] ABS# 0.4 K/ul 01/02/2017 Cbc With Differential Ord2 Eos ABS# 0.3 K/ul 01/02/2017 Cbc With Differential Ord2 Baso ABS# 0.0 K/ul 01/02/2017 Cbc With Differential Ord2 WBC 4.16 K/ul 12/13/2016 Cbc With Differential Ord2 RBC 4.26 M/ul 12/13/2016 Cbc With Differential Ord2 HGB 13.6 g/dl 12/13/2016 Cbc With Differential Ord2 Neut% 50.0 % 12/13/2016 Cbc With Differential Ord2 HCT 41.5 % 12/13/2016 Cbc With Differential Ord2 MCV 97.4 fl 12/13/2016 Cbc With Differential Ord2 Lymph% 28.1 % 12/13/2016 Cbc With Differential Ord2 MCH 31.9 pg 12/13/2016 Cbc With Differential Ord2 [place]% 9.9 % 12/13/2016 Cbc With Differential Ord2 MCHC 32.8 pg 12/13/2016 Cbc With Differential Ord2 Eos% 11.5 % 12/13/2016 Cbc With Differential Ord2 PLT 192 K/ul 12/13/2016 Cbc With Differential Ord2 Baso% 0.5 % 12/13/2016 Cbc With Differential Ord2 RDW 13.1 % 12/13/2016 Cbc With Differential Ord2 Neut ABS# 2.08 K/ul 12/13/2016 Cbc With Differential Ord2 Lymph ABS# 1.17 K/ul 12/13/2016 Cbc With Differential Ord2 [place] ABS# 0.4 K/ul 12/13/2016 Cbc With Differential Ord2 Eos ABS# 0.5 K/ul 12/13/2016 Cbc With Differential Ord2 Baso ABS# 0.0 K/ul 12/13/2016 Tsh Ord6 hTSH II 1.19 uIU/mL 12/13/2016 Comp Metabolic Aim454 NA 137 mEq/L 12/13/2016 Comp Metabolic Grq445 K 4.8 mEq/L 12/13/2016 Comp Metabolic Kkh487 CL 101 mEq/L 12/13/2016 Comp Metabolic Yqk665 CO2 32.0 mEq/L 12/13/2016 Comp Metabolic Sol556 ANION GAP 9 12/13/2016 Comp Metabolic Rno647 GLUCOSE 95 mg/dL 12/13/2016 Comp Metabolic Myt958 Creat 0.8 mg/dL 12/13/2016 Comp Metabolic Uwl633 eGFR 79 ml/min/1.73m2 12/13/2016 Comp Metabolic Xig789 BUN 15 mg/dL 12/13/2016 Comp Metabolic Tti381 B/C Ratio 19.7 Ratio 12/13/2016 Comp Metabolic Pyx345 CALCIUM 9.3 mg/dL 12/13/2016 Comp Metabolic Roi848 ALK PHOS 63 U/L 12/13/2016 Comp Metabolic Zuw054 AST(SGOT) 15 U/L 12/13/2016 Comp Metabolic Wbj821 ALT(SGPT) 10 U/L 12/13/2016 Comp Metabolic Lxy567 BILI T 0.7 mg/dL 12/13/2016 Comp Metabolic Tsz317 ALBUMIN 3.7 g/dL 12/13/2016 Comp Metabolic Tbx265 TPRO 6.8 g/dL 12/13/2016 Comp Metabolic Zcu785 GLOB 3.2 g/dL 12/13/2016 Comp Metabolic Qvm955 A/G Ratio 1.2 Ratio 12/13/2016 Comp Metabolic Ifb702 Osmo 274 mOsmo 12/13/2016 Lipid Ord30 CHOL 139 mg/dL 12/13/2016 Lipid Ord30 HDL 48.0 mg/dl 12/13/2016 Lipid Ord30 TRIG 84 mg/dL 12/13/2016 Lipid Ord30 LDL 74 mg/dL 12/13/2016 Lipid Ord30 C/HDL 2.9 Ratio 12/13/2016 Tsh Ord6 hTSH II 1.12 uIU/mL 12/19/2015 Comp Metabolic Hub498 NA 135 mEq/L 12/19/2015 Comp Metabolic Guh360 K 4.1 mEq/L 12/19/2015 Comp Metabolic Bwi728 CL 99 mEq/L 12/19/2015 Comp Metabolic Dcg291 CO2 27.0 mEq/L 12/19/2015 Comp Metabolic Fxs913 ANION GAP 13 12/19/2015 Comp Metabolic Bwl242 GLUCOSE 83 mg/dL 12/19/2015 Comp Metabolic Bwr759 Creat 0.7 mg/dL 12/19/2015 Comp Metabolic Zau271 eGFR 88 ml/min/1.73m2 12/19/2015 Comp Metabolic Rss991 BUN 12 mg/dL 12/19/2015 Comp Metabolic Qrr018 B/C Ratio 17.4 Ratio 12/19/2015 Comp Metabolic Fpg450 CALCIUM 9.0 mg/dL 12/19/2015 Comp Metabolic Kyd735 ALK PHOS 68 U/L 12/19/2015 Comp Metabolic Cxl597 AST(SGOT) 16 U/L 12/19/2015 Comp Metabolic Rxf810 ALT(SGPT) 13 U/L 12/19/2015 Comp Metabolic Xso161 BILI T 0.7 mg/dL 12/19/2015 Comp Metabolic Ijp992 ALBUMIN 4.0 g/dL 12/19/2015 Comp Metabolic Koz890 TPRO 7.0 g/dL 12/19/2015 Comp Metabolic Czf090 GLOB 3.0 g/dL 12/19/2015 Comp Metabolic Xxh769 A/G Ratio 1.3 Ratio 12/19/2015 Comp Metabolic Pen065 Osmo 269 mOsmo 12/19/2015 Lipid Ord30 CHOL 151 mg/dL 12/19/2015 Lipid Ord30 HDL 54.0 mg/dl 12/19/2015 Lipid Ord30 TRIG 65 mg/dL 12/19/2015 Lipid Ord30 LDL 84 mg/dL 12/19/2015 Lipid Ord30 C/HDL 2.8 Ratio 12/19/2015 Cbc With Differential Ord2 WBC 5.72 K/ul 12/19/2015 Cbc With Differential Ord2 RBC 4.48 M/ul 12/19/2015 Cbc With Differential Ord2 HGB 14.4 g/dl 12/19/2015 Cbc With Differential Ord2 Neut% 63.9 % 12/19/2015 Cbc With Differential Ord2 HCT 43.6 % 12/19/2015 Cbc With Differential Ord2 MCV 97.3 fl 12/19/2015 Cbc With Differential Ord2 Lymph% 26.7 % 12/19/2015 Cbc With Differential Ord2 MCH 32.1 pg 12/19/2015 Cbc With Differential Ord2 [place]% 5.9 % 12/19/2015 Cbc With Differential Ord2 MCHC 33.0 pg 12/19/2015 Cbc With Differential Ord2 Eos% 3.3 % 12/19/2015 Cbc With Differential Ord2 PLT 199 K/ul 12/19/2015 Cbc With Differential Ord2 Baso% 0.2 % 12/19/2015 Cbc With Differential Ord2 RDW 13.5 % 12/19/2015 Cbc With Differential Ord2 Neut ABS# 3.65 K/ul 12/19/2015 Cbc With Differential Ord2 Lymph ABS# 1.53 K/ul 12/19/2015 Cbc With Differential Ord2 [place] ABS# 0.3 K/ul 12/19/2015 Cbc With Differential Ord2 Eos ABS# 0.2 K/ul 12/19/2015 Cbc With Differential Ord2 Baso ABS# 0.0 K/ul 12/19/2015 Cbc With Differential Ord2 New Analyzer Notice Please note new ref ranges starting 10-11-2015 due to implemntation of new five part differential hematolgy analyzer. 12/19/2015 Review of Systems System Result Effective Dates Constitutional No recent illness 2016 Constitutional No [...] Result Effective Dates Notes Full Exam - Orthopedics Constitutional general appearance [...] diminished 02/07/2015 None Procedures Procedure Codes Date PRESCRIP TRANSMIT VIA ERX SY CPT-4: G8553 05/05/2017 PRESCRIP TRANSMIT VIA ERX SY CPT-4: G8553 01/14/2017 PPPS, SUBSEQ VISIT CPT -4: G0439 12/12/2016 PRESCRIP TRANSMIT VIA ERX SY CPT-4: G8553 10/15/2016 ADMIN PNEUMOCOCCAL VACCINE SNOMED CT: 29945441 CPT-4: G0009 08/28/2016 Pneumococcal Polysaccharide Vaccine, 23-Valent, Ad CPT-4: 34785 08/28/2016 PRESCRIP TRANSMIT VIA ERX SY CPT-4: G8553 03/14/2016 PRESCRIP TRANSMIT VIA ERX SY CPT-4: G8553 12/19/2015 THER/PROPH/DIAG INJ SC/IM CPT-4: 71337 02/07/2015 TRIAMCINOLONE ACET INJ NOS CPT-4: J3301 02/07/2015 Vital Signs Date Vital 09/03/2017 Blood Pressure 1: 144/90 Code : 8480-6 BMI: 26.3 Code : 06549-7 Heart Rate 1 : 91 bpm Height: 5'1" SpO2: 96% Weight: 139 lbs 07/31/2017 Blood Pressure 1: 136/90 Code : 8480-6 BMI: 26.3 Code : 04923-5 Height: 5'1" Weight: 139 lbs 07/18/2017 Blood Pressure 1: 136/84 Code : 8480-6 06/16/2017 Blood Pressure 1: 136/84 Code : 8480-6 BMI: 26.5 Code : 56241-8 Heart Rate 1 : 72 bpm Height: 5'1" SpO2: 97% Weight: 140 lbs 05/28/2017 Blood Pressure 1: 138/78 Code : 8480-6 BMI: 26.1 Code : 61753-9 Heart Rate 1 : 70 bpm Height: 5'1" SpO2: 98% Weight: 138 lbs 05/05/2017 Blood Pressure 1: 140/86 Code : 8480-6 BMI: 25.3 Code : 54807-4 Heart Rate 1 : 66 bpm Height: 5'1" SpO2: 99% Weight: 134 lbs 03/13/2017 Blood Pressure 1: 126/74 Code : 8480-6 BMI: 25.3 Code : 41522-3 Heart Rate 1 : 73 bpm Height: 5'1" SpO2: 98% Weight: 134 lbs 02/10/2017 Blood Pressure 1: 148/88 Code : 8480-6 BMI: 25.9 Code : 52431-0 Heart Rate 1 : 84 bpm Height: 5'1" SpO2: 97% Weight: 137 lbs 01/14/2017 Blood Pressure 1: 134/86 Code : 8480-6 BMI: 25.7 Code : 32801-5 Heart Rate 1 : 83 bpm Height: 5'1" SpO2: 95% Weight: 136 lbs 01/07/2017 Blood Pressure 1: 136/88 Code : 8480-6 BMI: 25.1 Code : 50617-5 Heart Rate 1 : 86 bpm Height: 5'1" SpO2: 94% Weight: 133 lbs 01/02/2017 Blood Pressure 1: 122/68 Code : 8480-6 Blood Pressure 2: 116/78 Code: 8480-6 01/01/2017 Blood Pressure 1: 90/52 Code : 8480-6 BMI: 25.1 Code : 56834-8 Heart Rate 1 : 86 bpm Height: 5'1" SpO2: 99% Weight: 133 lbs 12/20/2016 Blood Pressure 1: 120/76 Code : 8480-6 12/12/2016 Blood Pressure 1: 130/72 Code : 8480-6 BMI: 24.8 Code : 68824-0 Heart Rate 1 : 62 bpm Height: 5'1" SpO2: 98% Waist Measure (cm): 79 cm Weight: 131 lbs 12/11/2016 Blood Pressure 1: 132/70 Code : 8480-6 BMI: 24.8 Code : 01452-9 Heart Rate 1 : 60 bpm Height: 5'1" Weight: 131 lbs 10/15/2016 Blood Pressure 1: 108/66 Code : 8480-6 BMI: 24.8 Code : 06045-4 Heart Rate 1 : 60 bpm Height: 5'1" Weight: 131 lbs 07/17/2016 Blood Pressure 1: 128/82 Code : 8480-6 BMI: 25.3 Code : 72961-0 Heart Rate 1 : 50 bpm Height: 5'2" Weight: 136 lbs 05/15/2016 Blood Pressure 1: 108/70 Code : 8480-6 BMI: 23.4 Code : 51415-7 Heart Rate 1 : 54 bpm Height: 5'2" SpO2: 96% Weight: 126 lbs 04/23/2016 Blood Pressure 1: 112/60 Code : 8480-6 BMI: 23.6 Code : 32644-9 Heart Rate 1 : 92 bpm Height: 5'2" SpO2: 95% Weight: 127 lbs 03/14/2016 Blood Pressure 1: 118/74 Code : 8480-6 BMI: 24.0 Code : 78876-4 Heart Rate 1 : 51 bpm Height: 5'2" SpO2: 94% Temperature: 36.8 (C) / 98.3 (F) Weight: 129 lbs 02/19/2016 Blood Pressure 1: 110/62 Code : 8480-6 BMI: 23.4 Code : 23857-7 Heart Rate 1 : 74 bpm Height: 5'2" SpO2: 97% Weight: 126 lbs 12/19/2015 Blood Pressure 1: 108/74 Code : 8480-6 BMI: 23.6 Code : 69660-7 Heart Rate 1 : 52 bpm Height: 5'2" Weight: 127 lbs 03/06/2015 Blood Pressure 1: 136/88 Code : 8480-6 Heart Rate 1: 64 bpm Weight: 129 lbs 02/07/2015 Blood Pressure 1: 142/90 Code : 8480-6 BMI: 24.5 Code : 17601-1 Heart Rate 1 : 82 bpm Height: 5'2" Weight: 132 lbs Functional Status No Functional Status data History of Present Illness Symptom Name Status Result Effective Date Notes back pain Location thoracic spine 09/03/2017 None [...] Performer Location Codes Date EST. PATIENT, LEVEL III Diagnosis: Pain in thoracic spine[ICD10: M54.6] Pebbles Burden MD, [facility] CPT-4: 26429 09/03/2017 ([id number]) 95771 EST. PATIENT, LEVEL III Diagnosis: Essential (primary) hypertension[ICD10: I10] Diagnosis: Other emphysema[ICD10: J43.8] Kim Burden MD, [facility] CPT- 4: 47874 07/31/2017 ([id number]) Miscellaneous no charge Diagnosis: Essential (primary) hypertension[ICD10: I10] Mallorie Burden MD, [facility] CPT-4: 44820 07/18/2017 ([id number]) 17588 EST. PATIENT, LEVEL III Diagnosis: Pain in left knee[ICD10: M25.562] Diagnosis: Effusion, left knee[ICD10: M25.462] Mallorie Burden MD, [facility] CPT-4: 52565 06/16/2017 ([id number]) 82196 EST. PATIENT, LEVEL III Diagnosis: Essential (primary) hypertension[ICD10: I10] Diagnosis: Unsteadiness on feet[ICD10: R26.81] Kim Burden MD, [facility] CPT-4: 87097 05/28/2017 ([id number]) 33997 EST. PATIENT, LEVEL IV Diagnosis: Essential (primary) hypertension[ICD10: I10] Diagnosis: Chronic obstructive pulmonary disease with acute lower respiratory infection[ICD10: J44.0] Kim Burden MD, [facility] CPT-4: 87089 05/05/2017 [id number]) 37530 EST. PATIENT, LEVEL IV Diagnosis: Essential (primary) hypertension[ICD10: I10] Diagnosis: Major depressive disorder, recurrent, mild[ICD10: F33.0] Kim Burden MD, [facility] CPT-4: 78392 03/13/2017 ([id number]) 15595 EST. PATIENT, LEVEL IV Diagnosis: Essential (primary) hypertension[ICD10: I10] Diagnosis: Gastro-esophageal reflux disease without esophagitis[ICD10: K21.9] Diagnosis: Chronic obstructive pulmonary disease, unspecified[ICD10: J44.9] Kim Burden MD [facility] CPT-4: 85012 02/10/2017 ([id number]) 06866 EST. PATIENT, LEVEL IV Diagnosis: Essential (primary) hypertension[ICD10: I10] Diagnosis: Gastro-esophageal reflux disease without esophagitis[ICD10: K21.9] Diagnosis: Chronic obstructive pulmonary disease with acute lower respiratory infection[ICD10: J44.0] Kim Burden MD [facility] CPT-4: 94642 01/14/2017 03898 EST. PATIENT, LEVEL IV Diagnosis: Other fatigue[ICD10: R53.83] Diagnosis: Other malaise[ICD10: R53.81] Diagnosis: Headache[ICD10: R51] Diagnosis: Palpitations[ICD10: R00.2] Diagnosis: Dehydration[ICD10: E86.0] Pebbles Burden MD, [facility] CPT-4: 85380 01/07/2017 ([id number]) Miscellaneous no charge Diagnosis: Essential (primary) hypertension[ICD10: I10] Pebbles Burden MD, [facility] CPT-4: 49975 01/02/2017 52418 EST. PATIENT, LEVEL IV Diagnosis: Chronic obstructive pulmonary disease, unspecified[ICD10: J44.9] Diagnosis: Essential (primary) hypertension[ICD10: I10] Diagnosis: Other fatigue[ICD10: R53.83] Pebbles Burden MD, [facility] CPT-4 : 01878 01/01/2017 ([id number]) Miscellaneous no charge Diagnosis: Essential (primary) hypertension[ICD10: I10] Pebbles Burden MD, [facility] CPT-4: 83329 12/20/2016 ([id number]) 90045 EST. PATIENT, LEVEL IV Diagnosis: Essential (primary) hypertension[ICD10: I10] Diagnosis: Major depressive disorder, recurrent, mild[ICD10: F33.0] Diagnosis: Headache[ICD10: R51] Diagnosis: Other fatigue[ICD10: R53.83] Kim Burden MD, [facility] CPT- 4: 27393 12/11/2016 ([id number]) 26775 EST. PATIENT, LEVEL IV Diagnosis: Essential (primary) hypertension[ICD10: I10] Diagnosis: Other allergic rhinitis[ICD10: J30.89] Diagnosis: Gastro-esophageal reflux disease without esophagitis[ICD10: K21.9] Kim Burden MD [facility] CPT-4: 54577 10/15/2016 ([id number]) 12430 EST. PATIENT, LEVEL III Diagnosis: Essential (primary) hypertension[ICD10: I10] Diagnosis: Major depressive disorder, recurrent, mild[ICD10: F33.0] Kim Burden MD [facility] CPT-4: 96069 07/17/2016 ([id number]) 53493 EST. PATIENT, LEVEL III Diagnosis: Pain in left hip[ICD10: M25.552] Diagnosis: Acute laryngopharyngitis[ICD10: J06.0] Kim Burden MD [facility] CPT-4: 96303 05/15/2016 ([id number]) 15801 EST. PATIENT, LEVEL III Diagnosis: Fracture of unspecified parts of lumbosacral spine and pelvis, initial encounter for closed fracture[ICD10: S32.9XXA] Diagnosis: Essential (primary) hypertension[ICD10: I10] Kim Burden MD, [facility] CPT-4: 00078 04/23/2016 30788 EST. PATIENT, LEVEL IV Diagnosis: Acute laryngopharyngitis[ICD10: J06.0] Diagnosis: Other allergic rhinitis[ICD10: J30.89] Pebbles Burden MD, [facility] CPT-4: 69999 03/14/2016 73341 EST. PATIENT, LEVEL IV Diagnosis: Dysuria[ICD10: R30.0] Diagnosis: Left lower quadrant pain[ICD10: R10.32] Pebbles Burden MD, [facility] CPT-4: 42830 02/19/2016 ([id number]) 93056 EST. PATIENT, LEVEL IV Diagnosis: Essential (primary) hypertension[ICD10: I10] Diagnosis: Gastro-esophageal reflux disease without esophagitis[ICD10: K21.9] Diagnosis: Major depressive disorder, recurrent, mild[ICD10: F33.0] [facility] CPT-4: 89106 12/19/2015 ([id number] 38326 EST. PATIENT, LEVEL IV Diagnosis: ESSENTIAL HYPERTENSION[ICD9: 401.9] Diagnosis: ACUTE URI[ICD9: 465.9] Kim Burden MD, [facility] CPT-4: 80786 03/06/2015 ([id number]) OFFICE VISIT, NEW - LEVEL 4 Diagnosis: ESOPHAGEAL REFLUX[ICD9: 530.81] Diagnosis: ESSENTIAL HYPERTENSION[ICD9: 401.9] Diagnosis: COPD (chronic obstructive pulmonary disease)[ICD9: 496] Diagnosis: ALLERGIC RHINITIS[ICD9: 477.9] Mallorie Burden MD, [facility] CPT-4: 49615 02/07/2015 Plan of Care Planned Activity Notes Codes Status Date Visit Plan: Thoracic back pain - x-ray showed compression fracture of lower thoracic vertebrae - pt still having significant pain - will order MRI and schedule pt for kyphoplasty - pt is to notify clinic if symptoms do not improve, if they worsen, or with any acute changes, questions, or concerns. 09/03/2017 Appointment: Pebbles Lund [facility]el[facility] (15 min) Moderate 09/03/2017 Patient Education: Patient Medication Summary Completed 09/03/2017 Appointment: Kim Burden WPtel[facility] (15 min) Moderate 08/11/2017 Appointment: Kim Burden WPtel: [address] [place], [place] [phone] (15 min) Moderate 08/11/2017 Patient Education: Patient [...] continue with current treatment. 07/31/2017 Appointment: Kim Burden WPtel: [phone] [facility] (15 min) Moderate 07/31/2017 Patient Education: Patient Medication Summary Completed 07/31/2017 Appointment: Nurse Visit 07/18/2017 Patient Education: Patient Medication Summary Completed 07/18/2017 Patient Education: Patient Medication Summary Completed 07/18/2017 Appointment: Kim Burden WPtel: [phone] [facility] (15 min) Moderate 06/30/2017 Visit Plan: Effusion left knee-fall 2 weeks ago-recommend compression of joint and refer to Ortho for evaluation and treatment-will refer to Dr Pryor/Quinton Mccormick. Patient verbalized understanding of plan. 06/16/2017 Appointment: [phone] [place] (30 min) Complex 06/16/2017 [...] when active. 05/28/2017 Appointment: Kim Burden WPtel: [phone] [facility] [place] (15 min) Moderate 05/28/2017 Patient Education: [...] acute changes. 05/05/2017 Appointment: [phone] (15 min) Moderate 05/05/2017 Patient [...] medications. 03/13/2017 Appointment: Kim Burden WPtel: [phone] [facility] (15 min) Moderate 03/13/2017 Patient Education: Patient [...] symptoms worsening. 02/10/2017 Appointment: Kim Burden WPtel: [phone] [facility] (15 min) Moderate 02/10/2017 Patient Education: Patient [...] improving. 01/14/2017 Appointment: Kim Burden WPtel: [phone] [facility] (15 min) Moderate 01/14/2017 Patient Education: Patient [...] concerns. 01/07/2017 Appointment: Pebbles Lund WPtel: [phone] [facility] (30 min) Complex 01/07/2017 Patient Education: Patient [...] pressures. 01/01/2017 Appointment: Pebbles Lund WPtel: [phone] [facility] [place] (30 min) Complex 01/01/2017 Patient Education: [...] surrogate. 12/12/2016 App[facility]ment: [facility]bles Lund [phone] [facility] - Annual Wellness Visit 12/12/2016 [...] this time. 12/11/2016 Appointment: Kim Burden WPtel: [facility] (15 min) Moderate 12/11/2016 Patient Education: Patient Medication Summary Completed 12/11/2016 Appointment: [phone] (30 min) Complex 12/10/2016 Visit Plan: Hypertension [...] not improving. 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 07/17/2016 Appointment: Kim Burden WPtel: [phone] [facility] (15 min) Moderate 07/17/2016 Patient Education: Patient Medication Summary Completed 07/17/2016 Appointment: Kim Burden WPtel: [phone] [facility] (15 min) Moderate 06/10/2016 Visit Plan: Hip pain - persistent but improving - continue with current treatment plan. Pt to call if her symptoms are not improving or if her hip pain worsens. URI symptoms - supportive care, use otc allergy medications. 05/15/2016 Appointment: Kim Burden WPtel: [phone] [facility] (15 min) Moderate 05/15/2016 Patient Education: Patient [...] not improving. 04/23/2016 Appointment: Kim Burden WPtel: [phone] [facility] (15 min) Moderate 04/23/2016 Patient Education: Patient Medication Summary Completed 04/23/2016 Patient Education: Hypertension Completed 04/23/2016 Care Plan: X-RAY EXAM OF ABDOMEN LOINC : 13945-9 Pending 03/18/2016 Visit Plan: URI - Pt [...] spray. 03/14/2016 Appointment: Pebbles Lund WPtel: [phone] [facility] (30 min) Complex 03/14/2016 Patient Education: Patient Medication Summary Completed 03/14/2016 Patient Education: Patient Medication Summary Completed 02/29/2016 Visit Plan: Flank pain - pt is currently being treated for UTI, but is having continued left flank pain - will get KUB - pt is to notify clinic if symptoms do not improve, or with any concerns. 02/19/2016 Appointment: Pebbles Lund WPtel: [phone] [facility] (30 min) Complex 02/19/2016 Patient Education: Patient Medication Summary Completed 02/19/2016 Appointment: [facility]el[phone] (15 min) Moderate 01/22/2016 Visit Plan: Hypertension [...] symptoms are not improving. 12/19/2015 Appointment: [facility]Ptel[phone] (15 min) Moderate 12/19/2015 Patient [...] Finish RX. 03/06/2015 Appointment: [facility]el[phone] Follow up 03/06/2015 Patient Education: [...] Completed 02/07/2015 Care Plan: SCREENINGMAMMOGRAPHYDIGITAL LOINC : 93014-1 Ordered 02/07/2015 Care Plan: COMPLETE CBC AUTOMATED LOINC : 94644-7 Ordered 02/07/2015 Instructions Comment . Dehydration, palpitations, malaise, headache - will send for outpatient fluids, will check labs, ekg. Pt is to restart her spironolactone, continue to monitor blood pressures and heart rates and notify clinic if symptoms do not improve, if they worsen, or with any questions or concerns. . 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 . Medicare Exam - today we discussed [...] her DOPA paperwork for health care surrogate. . Hypertension - well controlled - continue [...] dependent - chronic, continue with current treatment. . HTN - blood pressure too well controlled - recommend pt to stop amlodipine, monitor blood pressure at home and call if pressure starts to rise too quickly. Pelvic pain improving per patient report - pt has been advised that she needs to keep her activities easy, slowly advance movements - call if not improving. . Flank pain - pt is currently being treated for UTI, but is having continued left flank pain - will get KUB - pt is to notify clinic if symptoms do not improve, or with any concerns. Liquid Vitamin B12 or Vitamin B12 dissolving [...] patient is stable, monitor for acute changes. increase current supply of (norvasc) AMLODIPINE 2.5mg [...] course, or if any worse. Finish RX. change the metoprolol to 1 pill in [...] no change in meds at this time. CHECK YOUR BLOOD PRESSURE AND PULSE AT [...] medication. Kenalog injection today in the office. . Hip pain - persistent but improving - continue with current treatment plan. Pt to call if her symptoms are not improving or if her hip pain worsens. URI symptoms - supportive care, use otc allergy medications. . Hypertension - well controlled - continue [...] situational exposure. No change in current medications. restart the metoprolol 50mg pill and take [...] oxygen, and call if symptoms worsening. . Thoracic back pain - x-ray showed compression fracture of lower thoracic vertebrae - pt still having significant pain - will order MRI and schedule pt for kyphoplasty - pt is to notify clinic if symptoms do not improve, if they worsen, or with any acute changes, questions, or concerns. . Hypertension - well controlled - continue [...] if the symptoms are not improving. . COPD - chronic problem for this [...] office if the symptoms are not improving. change the metoprolol to 1 pill in [...] no change in meds at this time. . COPD - chronic problem for this [...] attempt to alleviate the low blood pressures. TAKE WITH FOOD AND PROBIOTIC ([employer]) . URI - Pt advised to increase [...] spray in the nasal steroid allergy spray. decrease omeprazole to 20mg at bedtime start on a probiotic to help decrease GI upset./loose stools - [employer] or [employer] . Hypertension - well controlled - continue [...] office if the symptoms are not improving. Compression left knee with ru wrap Refer to Dr Pryor/Quinton Mccormick for evaluation . Effusion left knee-fall 2 weeks ago-recommend compression of joint and refer to Ortho for evaluation and treatment-will refer to Dr Pryor/Quinton Mccormick. Patient verbalized understanding of plan.
--- OUTSIDE RECORDS SUMMARY | 2017-11-30 11:12 | XMS REPORT | CCD ---
Author Author [facility] Address [address] [place] [address] Phone Care Team Providers Care In Home Caregiver Name Role Phone PP Unavailable CCM Unavailable Summary Purpose Interface Exchange Insurance Providers Payer name Policy type / Coverage type Covered alliance party ID Effective Begin Date Effective End Date WPS Medicare Part B Medicare Part B [id number] Unknown AETNA Medicare Part B [id number] 2014 Unknown Family history Brother Diagnosis Age [...] 02/07/2015 Employment Unknown Currently employed works at [employer] 02/07/[address]: 1424175 Quit over 10 years ago 199302/07/2015 Number [...] Start Date Stop Date Status Fill Instructions Diflucan 150 mg tablet RxNorm: 657763 1 Tablet(s) PO daily 01/201811/05/2017 Active please call pt to let herknow when to pick- up the med Keflex 500 mg capsule RxNorm: 237368 1 Capsule(s) PO TID 201710/29/2017 Inactive Kenalog 40 mg/mL suspension for injection RxNorm: 6953522 1 Milliliter(s) Inj 10/16/2017 10/16/2017 Inactive ibuprofen 800 mg tablet RxNorm: 473494 TAKE 1 TABLET THREE TIMES DAILY 10/15/2017 01/07/2019 Active Lexapro 10 mg tablet RxNorm: 604729 TAKE 1 TABLET EVERY DAY 10/09/2018 Active hydrocodone 5 mg-acetaminophen 325 mg tablet RxNorm: 781163 1 Tablet(s) PO QID as needed 09/03/2017 No Stop Date Active omeprazole 20 mg capsule,delayed release RxNorm: 411910 1 Capsule(s) PO BID 09/02/2017 08/27/2018 Active alprazolam 1 mg tablet RxNorm: 645916 1 Tablet(s) PO TID 201605/27/2018 Active metoprolol tartrate 50 mg tablet RxNorm: 581497 1/2 Tablet(s) PO BID 06/26/2017 06/20/2018 Active omeprazole 20 mg capsule,delayed release RxNorm: 263198 1 Capsule(s) PO BID 06/05/2017 09/01/2017 Inactive omeprazole 20 mg capsule,delayed release RxNorm: 547348 1 Capsule(s) PO BID 05/28/2017 06/04/2017 Inactive omeprazole 20 mg capsule,delayed release RxNorm: 020267 1 Capsule(s) PO QPM 05/27/2017 05/27/2017 Inactive Breo Ellipta 100 mcg-25 mcg/dose powder for inhalation RxNorm: 1482020 1 INH daily 05/05/2017 04/29/2018 Active losartan 100 mg tablet RxNorm: 152430 1 Tablet(s) PO QPM 201602/04/2018 Active alprazolam 1 mg tablet RxNorm: 749059 1 Tablet(s) PO TID 201608/07/2017 Inactive metoprolol tartrate 50 mg tablet RxNorm: 607233 1/2 Tablet(s) PO BID 02/10/2017 06/25/2017 Inactive losartan 50 mg tablet RxNorm: 100124 2 Tablet(s) PO QPM 201602/09/2017 Inactive Diflucan 150 mg tablet RxNorm: 955332 1 Tablet(s) PO daily 01/22/2017 Inactive please call pt to let herknow when to pick- up the med Diflucan 150 mg tablet RxNorm: 326282 1 Tablet(s) PO daily 01/19/2017 Inactive please call pt to let herknow when to pick- up the med losartan 50 mg tablet RxNorm: 662294 1 Tablet(s) PO QPM 201601/22/2017 Inactive Cipro 500 mg tablet RxNorm: 629205 1 Tablet(s) PO BID 201601/17/2017 Inactive Cipro 500 mg tablet RxNorm: 091678 1 Tablet(s) PO BID 201601/07/2017 Inactive Lexapro 10 mg tablet RxNorm: 579085 TAKE 1 TABLET EVERY DAY 10/14/2017 Inactive metoprolol tartrate 50 mg tablet RxNorm: 710563 1 Tablet(s) PO in the morning and 1.5 pill at night 12/11/2016 01/13/2017 Inactive spironolactone 25 mg tablet RxNorm: 178798 TAKE 1 TABLET EVERY DAY 11/04/2016 07/31/2017 Inactive metoprolol tartrate 50 mg tablet RxNorm: 598559 TAKE 1 TABLET TWICE DAILY 10/29/2016 12/10/2016 Inactive ibuprofen 800 mg tablet RxNorm: 623519 TAKE 1 TABLET THREE TIMES DAILY 10/21/2016 10/14/2017 Inactive Astepro 0.15 % (205.5 mcg) nasal spray RxNorm: 5845551 1 [place] NASAL BID 10/15/2016 10/09/2017 Inactive Astepro 0.15 % (205.5 mcg) nasal spray RxNorm: 0716413 1 [place] NASAL BID 10/15/2016 10/14/2016 Inactive Astepro 0.15 % (205.5 mcg) nasal spray RxNorm: 8322912 1 [place] NASAL BID 10/15/2016 10/14/2016 Inactive omeprazole 20 mg capsule,delayed release RxNorm: 889927 1 Capsule(s) PO QPM 10/15/2016 05/26/2017 Inactive omeprazole 20 mg capsule,delayed release RxNorm: 522210 1 Capsule(s) QPM 10/15/2016 10/14/2016 Inactive omeprazole 20 mg capsule,delayed release RxNorm: 824930 TAKE 1 CAPSULE TWICE DAILY 09/02/2016 10/14/2016 Inactive Lexapro 10 mg tablet RxNorm: 187036 TAKE 1 TABLET EVERY DAY 12/19/2016 Inactive calcitonin (salmon) 200 unit/actuation nasal spray RxNorm: 468409 1 [place] NASAL daily ONE SPRAY PER ONE NOSTRIL DAILY- ALTERNATE NOSTRILS DAILY 05/31/2016 05/30/2016 Inactive She will do this for 3 months- If she wants to do a 3 month supply at one time she can without refill calcitonin (salmon) 200 unit/actuation nasal spray RxNorm: 583948 1 [place] NASAL daily ONE SPRAY PER ONE NOSTRIL DAILY- ALTERNATE NOSTRILS DAILY 05/31/2016 07/30/2016 Inactive x3 months- no refills Forteo 20 mcg/dose (600 mcg/2.4 mL) subcutaneous pen injector RxNorm: 3821434 1 injection SQ daily 05/22/20162015 Inactive call pt with jaramillo first Forteo 20 mcg/dose (600 mcg/2.4 mL) subcutaneous pen injector RxNorm: 9353668 1 injection SQ daily 05/22/20162015 Inactive Prolia 60 mg/mL subcutaneous syringe RxNorm: 400166 1 Milliliter(s) SQ every 6 months 05/13/2016 No Stop Date Active Please check jaramillo through insurance and let me know- Thanks! Mary Ellen alprazolam 1 mg tablet RxNorm: 975406 1 Tablet(s) PO TID 201511/01/2016 Inactive Lexapro 10 mg tablet RxNorm: 348497 TAKE 1 TABLET EVERY DAY 08/20/2016 Inactive spironolactone 25 mg tablet RxNorm: 332122 TAKE 1 TABLET EVERY DAY 04/22/2016 11/03/2016 Inactive Diflucan 150 mg tablet RxNorm: 559353 1 Tablet(s) PO daily 04/14/2016 Inactive Diflucan 150 mg tablet RxNorm: 606333 1 Tablet(s) PO daily 03/19/2016 Inactive Augmentin 500 mg-125 mg tablet RxNorm: 272337 1 Tablet(s) PO TID 03/14/2016 03/23/2016 Inactive omeprazole 20 mg capsule,delayed release RxNorm: 306917 1 Tablet(s) PO BID 03/06/2016 09/01/2016 Inactive [SAVINGS FOR NON-COVERED DRUGS -- BIN:[id number], PCN: ASPROD1, Group: XXXXX, ID# XXXXXXX, Questions: . THIS IS NOT INSURANCE.] amlodipine 5 mg tablet RxNorm: 069459 TAKE 1 TABLET EVERY DAY 03/01/2016 04/22/2016 Inactive omeprazole 20 mg tablet,delayed release RxNorm: 946340 1 Tablet(s) PO BID 02/27/2016 03/05/2016 Inactive [SAVINGS FOR NON-COVERED DRUGS -- BIN:635234, PCN: ASPROD1, Group: XXXXX, ID# XXXXXXX, Questions: . THIS IS NOT INSURANCE.] spironolactone 25 mg tablet RxNorm: 270861 TAKE 1 TABLET EVERY DAY 12/21/2015 04/21/2016 Inactive Lexapro 10 mg tablet RxNorm: 833965 1 Tablet(s) PO daily 201501/01/2016 Inactive Lexapro 10 mg tablet RxNorm: 815629 1 Tablet(s) PO daily 201502/09/2017 Inactive Lexapro 10 mg tablet RxNorm: 343474 1 Tablet(s) PO daily 201512/18/2015 Inactive alprazolam 1 mg tablet RxNorm: 230592 1 Tablet(s) PO TID 201502/28/2016 Inactive ibuprofen 800 mg tablet RxNorm: 441073 1 Tablet(s) PO TID 10/2610/20/2016 Inactive alprazolam 1 mg tablet RxNorm: 161328 1 Tablet(s) PO TID 201411/19/2015 Inactive spironolactone 25 mg tablet RxNorm: 559246 1 Tablet(s) PO daily 08/21/2015 12/20/2015 Inactive metoprolol tartrate 50 mg tablet RxNorm: 224890 1 Tablet(s) PO BID 08/10/2015 08/03/2016 Inactive [SAVINGS FOR NON-COVERED DRUGS -- BIN:871906, PCN: ASPROD1, Group : XXXXX, ID# XXXXXXX, Questions: . THIS IS NOT INSURANCE.] omeprazole 20 mg tablet,delayed release RxNorm: 177215 1 Tablet(s) PO BID 08/07/2015 02/02/2016 Inactive [SAVINGS FOR NON-COVERED DRUGS -- BIN:875271, PCN: ASPROD1, Group: XXXXX, ID# XXXXXXX, Questions: . THIS IS NOT INSURANCE.] Keflex 500 mg capsule RxNorm: 387045 1 Capsule(s) PO TID 201407/16/2015 Inactive alprazolam 1 mg tablet RxNorm: 957363 1 Tablet(s) PO TID 201408/22/2015 Inactive alprazolam 1 mg tablet RxNorm: 043086 1 Tablet(s) PO TID 201406/01/2015 Inactive amlodipine 5 mg tablet RxNorm: 358155 1 Tablet(s) PO daily 04/201502/29/2016 Inactive Nasonex 50 mcg/actuation [place] RxNorm: 957322 1 [place] NASAL daily 03/03/2015 03/02/2015 Inactive Keflex 500 mg capsule RxNorm: 877806 1 Capsule(s) PO TID 201403/02/2015 Inactive Nasonex 50 mcg/actuation [place] RxNorm: 492970 1 [place] NASAL daily 03/03/2015 05/01/2015 Inactive Keflex 500 mg capsule RxNorm: 400350 1 Capsule(s) PO TID 201403/05/2015 Inactive Carafate 1 gram tablet RxNorm: 608506 TAKE 1 TABLET FOUR TIMES DAILY 30 MINUTES BEFORE MEALS AND AT BEDTIME 02/28/2015 Inactive Kenalog 40 mg/mL suspension for injection RxNorm: 9138125 Milliliter(s) Inj 02/07/2015 02/07/2015 Inactive [SAVINGS FOR NON-COVERED DRUGS -- BIN:712014, PCN: ASPROD1, Group: XXXXX, ID# XXXXXXX, Questions: . THIS IS NOT INSURANCE.] metoprolol tartrate 50 mg tablet RxNorm: 872364 1 Tablet(s) PO BID 02/07/2015 08/09/2015 Inactive [SAVINGS FOR NON-COVERED DRUGS -- BIN:029265, PCN: ASPROD1, Group : XXXXX, ID# XXXXXXX, Questions: . THIS IS NOT INSURANCE.] Carafate 1 gram tablet RxNorm: 733481 1 Tablet(s) PO QID 201402/27/2015 Inactive 30 min before meals and at bedtime omeprazole 20 mg tablet,delayed release RxNorm: 635120 1 Tablet(s) PO BID 02/07/2015 08/05/2015 Inactive [SAVINGS FOR NON-COVERED DRUGS -- BIN:619658, PCN: ASPROD1, Group: XXXXX, ID# XXXXXXX, Questions: . THIS IS NOT INSURANCE.] Vitamin D3 2,000 unit tablet RxNorm: 766058 1 Tablet(s) PO daily No Start Date Active aspirin 81 mg tablet RxNorm: 058551 1 Tablet(s) PO daily No Start Date Active loratadine 10 mg tablet RxNorm: 018674 1 Tablet(s) PO daily No Start Date Active amlodipine 2.5 mg tablet RxNorm: 938471 1 Tablet(s) PO daily No Start Date 03/05/2015 Inactive spironolactone 25 mg tablet RxNorm: 584593 1 Tablet(s) PO daily No Start Date 08/20/2015 Inactive cetirizine 10 mg tablet RxNorm: 1377546 1 Tablet(s) PO daily No Start Date 12/18/2015 Inactive metoprolol tartrate 50 mg tablet RxNorm: 741733 1 Tablet(s) PO daily No Start Date 02/06/2015 Inactive ipratropium bromide 0.06 % nasal spray RxNorm: 196781 nasal No Start Date 12/18/2015 Inactive alprazolam 1 mg tablet RxNorm: 910190 1 Tablet(s) PO TID No Start Date 03/28/2015 Inactive Prolia 60 mg/mL subcutaneous syringe RxNorm: 066492 1 Milliliter(s) SQ every 6 months No Start Date 05/12/2016 Inactive Please check jaramillo through insurance and let me know- Thanks! Mary Ellen ibuprofen 800 mg tablet RxNorm: 627450 1 Tablet(s) PO TID No Start Date 10/25/2015 Inactive Protonix 40 mg tablet,delayed release RxNorm: 702516 1 Tablet(s) PO daily No Start Date 03/05/2015 Inactive Medication Administered Medication Codes Instructions Start Date Status Kenalog 40 mg/mL suspension for injection RxNorm: 7080100 1Milliliter 10/16/2017 No longer Active Kenalog 40 mg/mL suspension for injection RxNorm: 8697144 Milliliter 02/07/2015 No longer Active Immunizations Vaccine [...] Item Item Code Result Date Comp Metabolic Dcb958 NA 138 mEq/L 09/03/2017 Comp Metabolic Agf365 K 3.9 mEq/L 09/03/2017 Comp Metabolic Lph211 CL 102 mEq/L 09/03/2017 Comp Metabolic Tmi131 CO2 32.0 mEq/L 09/03/2017 Comp Metabolic Pqe489 ANION GAP 8 09/03/2017 Comp Metabolic Hgo524 GLUCOSE 89 mg/dL 09/03/2017 Comp Metabolic Xfb699 Creat 0.6 mg/dL 09/03/2017 Comp Metabolic Vdb123 eGFR 103 ml/min/1.73m2 09/03/2017 Comp Metabolic Tey802 BUN 10 mg/dL 09/03/2017 Comp Metabolic Dww262 B/C Ratio 16.7 Ratio 09/03/2017 Comp Metabolic Hre177 CALCIUM 8.9 mg/dL 09/03/2017 Comp Metabolic Rcg128 ALK PHOS 141 U/L 09/03/2017 Comp Metabolic Viu553 AST(SGOT) 12 U/L 09/03/2017 Comp Metabolic Xua124 ALT(SGPT) 7 U/L 09/03/2017 Comp Metabolic Zvn179 BILI T 0.6 mg/dL 09/03/2017 Comp Metabolic Axw296 ALBUMIN 3.6 g/dL 09/03/2017 Comp Metabolic Gnn266 TPRO 6.6 g/dL 09/03/2017 Comp Metabolic Tas269 GLOB 3.0 g/dL 09/03/2017 Comp Metabolic Ofh798 A/G Ratio 1.2 Ratio 09/03/2017 Comp Metabolic Wxe666 Osmo 274 mOsmo 09/03/2017 Hepatic Vmx193 ALBUMIN 3.7 g/dL 08/11/2017 Hepatic Ise479 TPRO 7.0 g/dL 08/11/2017 Hepatic Xil368 GLOB 3.3 g/dL 08/11/2017 Hepatic Dha705 A/G Ratio 1.1 Ratio 08/11/2017 Hepatic Pik218 ALK PHOS 85 U/L 08/11/2017 Hepatic Bvg922 ALT(SGPT) 11 U/L 08/11/2017 Hepatic Sdy231 AST(SGOT) 16 U/L 08/11/2017 Hepatic Hjo880 BILI T 0.6 mg/dL 08/11/2017 Hepatic Ucl701 BILI D 0.1 mg/dL 08/11/2017 Hepatic Abh438 BILI I 0.5 mg/dL 08/11/2017 Hepatic Vgv393 ALBUMIN 3.1 g/dL 07/18/2017 Hepatic Xtr249 TPRO 5.9 g/dL 07/18/2017 Hepatic Hjh888 GLOB 2.8 g/dL 07/18/2017 Hepatic Ido001 A/G Ratio 1.1 Ratio 07/18/2017 Hepatic Jzu083 ALK PHOS 123 U/L 07/18/2017 Hepatic Wlb742 ALT(SGPT) 210 U/L 07/18/2017 Hepatic Elq008 AST(SGOT) 71 U/L 07/18/2017 Hepatic Yyw399 BILI T 1.1 mg/dL 07/18/2017 Hepatic Cgr577 BILI D 0.4 mg/dL 07/18/2017 Hepatic Vxz340 BILI I 0.7 mg/dL 07/18/2017 Cbc With [...] 32.4 pg 02/25/2017 Cbc With Differential Ord2 [place]% 7.6 % 02/25/2017 Cbc With Differential Ord2 [...] 1.22 K/ul 02/25/2017 Cbc With Differential Ord2 [place] ABS# 0.4 K/ul 02/25/2017 Cbc With Differential [...] 98.0 fl 01/02/2017 Cbc With Differential Ord2 [place]% 7.8 % 01/02/2017 Cbc With Differential Ord2 [...] 0.90 K/ul 01/02/2017 Cbc With Differential Ord2 [place] ABS# 0.4 K/ul 01/02/2017 Cbc With Differential Ord2 Eos ABS# 0.3 K/ul 01/02/2017 Cbc With Differential Ord2 Baso ABS# 0.0 K/ul 01/02/2017 Lipid Ord30 CHOL 139 mg/dL 12/13/2016 Lipid Ord30 HDL 48.0 mg/dl 12/13/2016 Lipid Ord30 TRIG 84 mg/dL 12/13/2016 Lipid Ord30 LDL 74 mg/dL 12/13/2016 Lipid Ord30 C/HDL 2.9 Ratio 12/13/2016 Tsh Ord6 hTSH II 1.19 uIU/mL 12/13/2016 Cbc With Differential Ord2 WBC 4.16 K/ul 12/13/2016 Cbc With Differential Ord2 RBC 4.26 M/ul 12/13/2016 Cbc With Differential Ord2 HGB 13.6 g/dl 12/13/2016 Cbc With Differential Ord2 Neut% 50.0 % 12/13/2016 Cbc With Differential Ord2 HCT 41.5 % 12/13/2016 Cbc With Differential Ord2 Lymph% 28.1 % 12/13/2016 Cbc With Differential Ord2 MCV 97.4 fl 12/13/2016 Cbc With Differential Ord2 [place]% 9.9 % 12/13/2016 Cbc With Differential Ord2 [...] 1.17 K/ul 12/13/2016 Cbc With Differential Ord2 [place] ABS# 0.4 K/ul 12/13/2016 Cbc With Differential Ord2 Eos ABS# 0.5 K/ul 12/13/2016 Cbc With Differential Ord2 Baso ABS# 0.0 K/ul 12/13/2016 Comp Metabolic Dby726 NA 137 mEq/L 12/13/2016 Comp Metabolic Zum296 K 4.8 mEq/L 12/13/2016 Comp Metabolic Bup877 CL 101 mEq/L 12/13/2016 Comp Metabolic Znl826 CO2 32.0 mEq/L 12/13/2016 Comp Metabolic Ejr917 ANION GAP 9 12/13/2016 Comp Metabolic Nsj487 GLUCOSE 95 mg/dL 12/13/2016 Comp Metabolic Vxh786 Creat 0.8 mg/dL 12/13/2016 Comp Metabolic Apa870 eGFR 79 ml/min/1.73m2 12/13/2016 Comp Metabolic Lma231 BUN 15 mg/dL 12/13/2016 Comp Metabolic Mgo373 B/C Ratio 19.7 Ratio 12/13/2016 Comp Metabolic Ffe683 CALCIUM 9.3 mg/dL 12/13/2016 Comp Metabolic Qfb242 ALK PHOS 63 U/L 12/13/2016 Comp Metabolic Viq123 AST(SGOT) 15 U/L 12/13/2016 Comp Metabolic Qdp515 ALT(SGPT) 10 U/L 12/13/2016 Comp Metabolic Ztr553 BILI T 0.7 mg/dL 12/13/2016 Comp Metabolic Osx596 ALBUMIN 3.7 g/dL 12/13/2016 Comp Metabolic Tur049 TPRO 6.8 g/dL 12/13/2016 Comp Metabolic Rlz674 GLOB 3.2 g/dL 12/13/2016 Comp Metabolic Dcs899 A/G Ratio 1.2 Ratio 12/13/2016 Comp Metabolic Pzf964 Osmo 274 mOsmo 12/13/2016 Lipid Ord30 CHOL 151 mg/dL 12/19/2015 Lipid Ord30 HDL 54.0 mg/dl 12/19/2015 Lipid Ord30 TRIG 65 mg/dL 12/19/2015 Lipid Ord30 LDL 84 mg/dL 12/19/2015 Lipid Ord30 C/HDL 2.8 Ratio 12/19/2015 Comp Metabolic Rhm628 NA 135 mEq/L 12/19/2015 Comp Metabolic Osg028 K 4.1 mEq/L 12/19/2015 Comp Metabolic Xjq715 CL 99 mEq/L 12/19/2015 Comp Metabolic Pqi638 CO2 27.0 mEq/L 12/19/2015 Comp Metabolic Nze507 ANION GAP 13 12/19/2015 Comp Metabolic Ybi461 GLUCOSE 83 mg/dL 12/19/2015 Comp Metabolic Hfv818 Creat 0.7 mg/dL 12/19/2015 Comp Metabolic Ref968 eGFR 88 ml/min/1.73m2 12/19/2015 Comp Metabolic Pkp635 BUN 12 mg/dL 12/19/2015 Comp Metabolic Mtg644 B/C Ratio 17.4 Ratio 12/19/2015 Comp Metabolic Uqk847 CALCIUM 9.0 mg/dL 12/19/2015 Comp Metabolic Tdi582 ALK PHOS 68 U/L 12/19/2015 Comp Metabolic Jde543 AST(SGOT) 16 U/L 12/19/2015 Comp Metabolic Pny504 ALT(SGPT) 13 U/L 12/19/2015 Comp Metabolic Jaq955 BILI T 0.7 mg/dL 12/19/2015 Comp Metabolic Tju579 ALBUMIN 4.0 g/dL 12/19/2015 Comp Metabolic Sjs568 TPRO 7.0 g/dL 12/19/2015 Comp Metabolic Rpp795 GLOB 3.0 g/dL 12/19/2015 Comp Metabolic Xhh630 A/G Ratio 1.3 Ratio 12/19/2015 Comp Metabolic Fkb777 Osmo 269 mOsmo 12/19/2015 Cbc With Differential Ord2 WBC 5.72 K/ul 12/19/2015 Cbc With Differential Ord2 RBC 4.48 M/ul 12/19/2015 Cbc With Differential Ord2 HGB 14.4 g/dl 12/19/2015 Cbc With Differential Ord2 Neut% 63.9 % 12/19/2015 Cbc With Differential Ord2 HCT 43.6 % 12/19/2015 Cbc With Differential Ord2 Lymph% 26.7 % 12/19/2015 Cbc With Differential Ord2 MCV 97.3 fl 12/19/2015 Cbc With Differential Ord2 [place]% 5.9 % 12/19/2015 Cbc With Differential Ord2 [...] 1.53 K/ul 12/19/2015 Cbc With Differential Ord2 [place] ABS# 0.3 K/ul 12/19/2015 Cbc With Differential Ord2 Eos ABS# 0.2 K/ul 12/19/2015 Cbc With Differential Ord2 Baso ABS# 0.0 K/ul 12/19/2015 Cbc With Differential Ord2 New Analyzer Notice Please note new ref ranges starting 10-11-2015 due to implemntation of new five part differential hematolgy analyzer. 12/19/2015 Tsh Ord6 hTSH II 1.12 uIU/mL 12/19/2015 Review of Systems System Result Effective [...] of thigh medially Full Exam - General 1995 Constitutional general appearance Overall: well developed 05/05/2017 [...] lips 05/05/2017 None Full Exam - General 1995 Ears/Nose/Throat oral cavity/pharynx/larynx Overall: oral mucosa clear [...] clear 10/15/2016 None Full Exam - General 1995 Ears/Nose/Throat otoscopic exam Tympanic membrane: a normal exam 10/15/2016 None Full Exam - General 1994 Ears/Nose/Throat otoscopic exam Tympanic membrane: air- fluid level 10/15/2016 None Full Exam - General 1995 Ears/Nose/Throat lips/teeth/gingiva Overall: benign lips 10/15/2016 None Full Exam - General 1994 Ears/Nose/Throat lips/teeth/gingiva Overall: normal dentition 10/15/2016 None Full Exam - General 1995 Ears/Nose/Throat oral cavity/pharynx/larynx Overall: oral mucosa clear 10/15/2016 None Full Exam - General 1995 Ears/Nose/Throat oral cavity/pharynx/larynx Overall: oropharyngeal mucosa clear 10/15/2016 None Full Exam - General 1995 Ears/Nose/Throat oral cavity/pharynx/larynx Overall: hypopharynx benign 10/15/2016 [...] accomodation 02/07/2015 None Full Exam - General 1995 Respiratory auscultation Basilar: diminished 02/07/2015 None Procedures Procedure Codes Date TRIAMCINOLONE ACET INJ NOS CPT-4: J3301 10/16/2017 DRAIN/INJECT JOINT/BURSA CPT-4: 65275 10/16/2017 PRESCRIP TRANSMIT VIA ERX SY CPT-4: G8553 05/05/2017 PRESCRIP TRANSMIT VIA ERX SY CPT-4: G8553 01/14/2017 PPPS, SUBSEQ VISIT CPT -4: G0439 12/12/2016 PRESCRIP TRANSMIT VIA ERX SY CPT-4: G8553 10/15/2016 ADMIN PNEUMOCOCCAL VACCINE SNOMED CT: 15522974 CPT-4: G0009 08/28/2016 Pneumococcal Polysaccharide Vaccine, 23-Valent, Ad CPT-4: 80124 08/28/2016 PRESCRIP TRANSMIT VIA ERX SY CPT-4: G8553 03/14/2016 PRESCRIP TRANSMIT VIA ERX SY CPT-4: G8553 12/19/2015 THER/PROPH/DIAG INJ SC/IM CPT-4: 98464 02/07/2015 TRIAMCINOLONE ACET INJ NOS CPT-4: J3301 02/07/2015 Vital Signs Date Vital 10/16/2017 Blood Pressure 1: 142/88 Code : 8480-6 BMI: 25.5 Code : 93953-4 Heart Rate 1 : 63 bpm Height: 5'1" SpO2: 97% Weight: 135 lbs 09/03/2017 Blood Pressure 1: 144/90 Code : 8480-6 BMI: 26.3 Code : 90643-7 Heart Rate 1 : 91 bpm Height: 5'1" SpO2: 96% Weight: 139 lbs 07/31/2017 Blood Pressure 1: 136/90 Code : 8480-6 BMI: 26.3 Code : 38112-3 Height: 5'1" Weight: 139 lbs 07/18/2017 Blood Pressure 1: 136/84 Code : 8480-6 06/16/2017 Blood Pressure 1: 136/84 Code : 8480-6 BMI: 26.5 Code : 75513-9 Heart Rate 1 : 72 bpm Height: 5'1" SpO2: 97% Weight: 140 lbs 05/28/2017 Blood Pressure 1: 138/78 Code : 8480-6 BMI: 26.1 Code : 94865-0 Heart Rate 1 : 70 bpm Height: 5'1" SpO2: 98% Weight: 138 lbs 05/05/2017 Blood Pressure 1: 140/86 Code : 8480-6 BMI: 25.3 Code : 47167-0 Heart Rate 1 : 66 bpm Height: 5'1" SpO2: 99% Weight: 134 lbs 03/13/2017 Blood Pressure 1: 126/74 Code : 8480-6 BMI: 25.3 Code : 63297-1 Heart Rate 1 : 73 bpm Height: 5'1" SpO2: 98% Weight: 134 lbs 02/10/2017 Blood Pressure 1: 148/88 Code : 8480-6 BMI: 25.9 Code : 77383-2 Heart Rate 1 : 84 bpm Height: 5'1" SpO2: 97% Weight: 137 lbs 01/14/2017 Blood Pressure 1: 134/86 Code : 8480-6 BMI: 25.7 Code : 98554-0 Heart Rate 1 : 83 bpm Height: 5'1" SpO2: 95% Weight: 136 lbs 01/07/2017 Blood Pressure 1: 136/88 Code : 8480-6 BMI: 25.1 Code : 11922-1 Heart Rate 1 : 86 bpm Height: 5'1" SpO2: 94% Weight: 133 lbs 01/02/2017 Blood Pressure 1: 122/68 Code : 8480-6 Blood Pressure 2: 116/78 Code: 8480-6 01/01/2017 Blood Pressure 1: 90/52 Code : 8480-6 BMI: 25.1 Code : 97357-5 Heart Rate 1 : 86 bpm Height: 5'1" SpO2: 99% Weight: 133 lbs 12/20/2016 Blood Pressure 1: 120/76 Code : 8480-6 12/12/2016 Blood Pressure 1: 130/72 Code : 8480-6 BMI: 24.8 Code : 24366-2 Heart Rate 1 : 62 bpm Height: 5'1" SpO2: 98% Waist Measure (cm): 79 cm Weight: 131 lbs 12/11/2016 Blood Pressure 1: 132/70 Code : 8480-6 BMI: 24.8 Code : 51237-1 Heart Rate 1 : 60 bpm Height: 5'1" Weight: 131 lbs 10/15/2016 Blood Pressure 1: 108/66 Code : 8480-6 BMI: 24.8 Code : 74045-4 Heart Rate 1 : 60 bpm Height: 5'1" Weight: 131 lbs 07/17/2016 Blood Pressure 1: 128/82 Code : 8480-6 BMI: 25.3 Code : 63551-7 Heart Rate 1 : 50 bpm Height: 5'2" Weight: 136 lbs 05/15/2016 Blood Pressure 1: 108/70 Code : 8480-6 BMI: 23.4 Code : 28832-0 Heart Rate 1 : 54 bpm Height: 5'2" SpO2: 96% Weight: 126 lbs 04/23/2016 Blood Pressure 1: 112/60 Code : 8480-6 BMI: 23.6 Code : 99741-0 Heart Rate 1 : 92 bpm Height: 5'2" SpO2: 95% Weight: 127 lbs 03/14/2016 Blood Pressure 1: 118/74 Code : 8480-6 BMI: 24.0 Code : 56168-8 Heart Rate 1 : 51 bpm Height: 5'2" SpO2: 94% Temperature: 36.8 (C) / 98.3 (F) Weight: 129 lbs 02/19/2016 Blood Pressure 1: 110/62 Code : 8480-6 BMI: 23.4 Code : 56735-7 Heart Rate 1 : 74 bpm Height: 5'2" SpO2: 97% Weight: 126 lbs 12/19/2015 Blood Pressure 1: 108/74 Code : 8480-6 BMI: 23.6 Code : 62506-8 Heart Rate 1 : 52 bpm Height: 5'2" Weight: 127 lbs 03/06/2015 Blood Pressure 1: 136/88 Code : 8480-6 Heart Rate 1: 64 bpm Weight: 129 lbs 02/07/2015 Blood Pressure 1: 142/90 Code : 8480-6 BMI: 24.5 Code : 90204-9 Heart Rate 1 : 82 bpm Height: [...] data Encounters Encounter Performer Location Codes Date ( [id number] EST. PATIENT, LEVEL IV Diagnosis: Essential (primary) hypertension[ICD10: I10] Diagnosis: Other emphysema[ICD10: J43.8] Diagnosis: Dependence on supplemental oxygen[ICD10: Z99.81] Diagnosis: Hypoxemia[ICD10: R09.02] Diagnosis: Pain in left knee[ICD10: M25.562] Diagnosis: Effusion, left knee[ICD10: M25.462] [facility] CPT-4: 36348 10/16/2017 [id number] EST. PATIENT, LEVEL III Diagnosis: Pain in thoracic spine[ICD10: M54.6] [facility] CPT-4: 70964 09/03/2017 ([id number]) [id number] EST. PATIENT, LEVEL III Diagnosis: Essential (primary) hypertension[ICD10: I10] Diagnosis: Other emphysema[ICD10: J43.8] Kim Burden MD [facility] CPT- 4: 51851 07/31/2017 ([id number]) Miscellaneous no charge Diagnosis: Essential (primary) hypertension[ICD10: I10] Mallorie Burden MD [facility] CPT-4: 05038 07/18/2017 ([id number]) [id number] EST. PATIENT, LEVEL III Diagnosis: Pain in left knee[ICD10: M25.562] Diagnosis: Effusion, left knee[ICD10: M25.462] Mallorie Burden MD [facility] CPT-4: 17506 06/16/2017 ([id number]) [id number] EST. PATIENT, LEVEL III Diagnosis: Essential (primary) hypertension[ICD10: I10] Diagnosis: Unsteadiness on feet[ICD10: R26.81] Kim Burden MD [facility] CPT-4: 87903 05/28/2017 ([id number]) 08738 EST. PATIENT, LEVEL IV Diagnosis: Essential (primary) hypertension[ICD10: I10] Diagnosis: Chronic obstructive pulmonary disease with acute lower respiratory infection[ICD10: J44.0] Kim Burden MD [facility] CPT-4: 28479 05/05/2017 ([id number]) 24259 EST. PATIENT, LEVEL IV Diagnosis: Essential (primary) hypertension[ICD10: I10] Diagnosis: Major depressive disorder, recurrent, mild[ICD10: F33.0] Kim Burden MD [facility] CPT-4: 02243 03/13/2017 ([id number]) [id number] EST. PATIENT, LEVEL IV Diagnosis: Essential (primary) hypertension[ICD10: I10] Diagnosis: Gastro-esophageal reflux disease without esophagitis[ICD10: K21.9] Diagnosis: Chronic obstructive pulmonary disease, unspecified[ICD10: J44.9] Kim Burden MD [facility] CPT-4: 43849 02/10/2017 ([id number]) 42623 EST. PATIENT, LEVEL IV Diagnosis: Essential (primary) hypertension[ICD10: I10] Diagnosis: Gastro-esophageal reflux disease without esophagitis[ICD10: K21.9] Diagnosis: Chronic obstructive pulmonary disease with acute lower respiratory infection[ICD10: J44.0] Kim Burden MD [facility] CPT-4: 71284 01/14/2017 07539 EST. PATIENT, LEVEL IV Diagnosis: Other fatigue[ICD10: R53.83] Diagnosis: Other malaise[ICD10: R53.81] Diagnosis: Headache[ICD10: R51] Diagnosis: Palpitations[ICD10: R00.2] Diagnosis: Dehydration[ICD10: E86.0] Pebbles Burden MD, [facility] CPT-4: 77176 01/07/2017 ([id number]) Miscellaneous no charge Diagnosis: Essential (primary) hypertension[ICD10: I10] Pebbles Burden MD [facility] CPT-4: 89610 01/02/2017 15924 EST. PATIENT, LEVEL IV Diagnosis: Chronic obstructive pulmonary disease, unspecified[ICD10: J44.9] Diagnosis: Essential (primary) hypertension[ICD10: I10] Diagnosis: Other fatigue[ICD10: R53.83] Pebbles Burden MD [facility] CPT-4 : 79778 01/01/2017 ([id number]) Miscellaneous no charge Diagnosis: Essential (primary) hypertension[ICD10: I10] Pebbles Burden MD, [facility] CPT-4: 07035 12/20/2016 ([id number]) 15429 EST. PATIENT, LEVEL IV Diagnosis: Essential (primary) hypertension[ICD10: I10] Diagnosis: Major depressive disorder, recurrent, mild[ICD10: F33.0] Diagnosis: Headache[ICD10: R51] Diagnosis: Other fatigue[ICD10: R53.83] Kim Burden MD, [facility] CPT- 4: 97761 12/11/2016 ([id number]) 82949 EST. PATIENT, LEVEL IV Diagnosis: Essential (primary) hypertension[ICD10: I10] Diagnosis: Other allergic rhinitis[ICD10: J30.89] Diagnosis: Gastro-esophageal reflux disease without esophagitis[ICD10: K21.9] Kim Burden MD, [facility] CPT-4: 54385 10/15/2016 ([id number]) 01118 EST. PATIENT, LEVEL III Diagnosis: Essential (primary) hypertension[ICD10: I10] Diagnosis: Major depressive disorder, recurrent, mild[ICD10: F33.0] Kim Burden MD, [facility] CPT-4: 47779 07/17/2016 ([id number]) 30610 EST. PATIENT, LEVEL III Diagnosis: Pain in left hip[ICD10: M25.552] Diagnosis: Acute laryngopharyngitis[ICD10: J06.0] Kim Burden MD, [facility] CPT-4: 10779 05/15/2016 ([id number]) 51781 EST. PATIENT, LEVEL III Diagnosis: Fracture of unspecified parts of lumbosacral spine and pelvis, initial encounter for closed fracture[ICD10: S32.9XXA] Diagnosis: Essential (primary) hypertension[ICD10: I10] Kim Burden MD, [facility] CPT-4: 46695 04/23/2016 61553 EST. PATIENT, LEVEL IV Diagnosis: Acute laryngopharyngitis[ICD10: J06.0] Diagnosis: Other allergic rhinitis[ICD10: J30.89] Pebbles Burden MD, [facility] CPT-4: 19528 03/14/2016 87298 EST. PATIENT, LEVEL IV Diagnosis: Dysuria[ICD10: R30.0] Diagnosis: Left lower quadrant pain[ICD10: R10.32] Pebbles Burden MD, [facility] CPT-4: 18685 02/19/2016 ([id number]) 49447 EST. PATIENT, LEVEL IV Diagnosis: Essential (primary) hypertension[ICD10: I10] Diagnosis: Gastro-esophageal reflux disease without esophagitis[ICD10: K21.9] Diagnosis: Major depressive disorder, recurrent, mild[ICD10: F33.0] Kim Burden MD, [facility] CPT-4: 79766 12/19/2015 ([id number]) 46104 EST. PATIENT, LEVEL IV Diagnosis: ESSENTIAL HYPERTENSION[ICD9: 401.9] Diagnosis: ACUTE URI[ICD9: 465.9] Kim Burden MD, [facility] CPT-4: 89259 03/06/2015 ([id number]) OFFICE VISIT, NEW - LEVEL 4 Diagnosis: ESOPHAGEAL REFLUX[ICD9: 530.81] Diagnosis: ESSENTIAL HYPERTENSION[ICD9: 401.9] Diagnosis: COPD (chronic obstructive pulmonary disease)[ICD9: 496] Diagnosis: ALLERGIC RHINITIS[ICD9: 477.9] Mallorie Burden MD, [facility] CPT-4: 40555 02/07/2015 Plan of Care Planned Activity Notes Codes Status Date Appointment: Nurse Visit 10/23/2017 Visit Plan: Hypertension - well controlled - [...] occurs at the site of injection. 10/16/2017 Appointment: [phone] [place] (15 min) Moderate 10/16/2017 Patient Education: [...] or concerns. 09/03/2017 Appointment: [phone] [place] ([facility] min) Moderate 09/03/2017 Patient Education: Patient Medication Summary Completed 09/03/2017 Appointment: [facility] Bur[phone] [place] (15 min) Moderate 08/11/2017 Appointment: Kim Burden [phone] [place] (15 min) Moderate 08/11/2017 Patient Education: [...] current treatment. 07/31/2017 Appointment: Kim Burden WPtel: [phone] [facility] (15 min) Moderate 07/31/2017 Patient Education: Patient Medication Summary Completed 07/31/2017 Appointment: Nurse Visit 07/18/2017 Patient Education: Patient Medication Summary Completed 07/18/2017 Patient Education: Patient Medication Summary Completed 07/18/2017 Appointment: Kim Burden WPtel: [facility] [place] (15 min) Moderate 06/30/2017 Visit Plan: Effusion left knee-fall 2 weeks ago-recommend compression of joint and refer to Ortho for evaluation and treatment-will refer to Dr Pryor/Quinton Mccormick. Patient verbalized understanding of plan. 06/16/2017 Appointment: Mallorie Wet[phone] [id number] [place] (30 min) Complex 06/16/2017 Patient Education: [...] when active. 05/28/2017 Appointment: Kim Burden WPtel: [phone] [facility] [place] (15 min) Moderate 05/28/2017 Patient Education: [...] acute changes. 05/05/2017 Appointment: Kim Burden [phone] (15 min) Moderate 05/05/2017 Patient Education: Patient [...] current medications. 03/13/2017 Appointment: Kim Burden WPtel: [facility] (15 min) Moderate 03/13/2017 Patient Education: Patient [...] symptoms worsening. 02/10/2017 Appointment: Kim Burden WPtel: [facility] (15 min) Moderate 02/10/2017 Patient Education: Patient [...] improving. 01/14/2017 Appointment: Kim Burden [phone] (15 min) Moderate 01/14/2017 Patient Education: Patient Medication Summary Completed 01/14/2017 Visit Plan: Dehydration, palpitations, malaise, headache - will send for outpatient fluids, will check labs, ekg. Pt is to restart her spironolactone, continue to monitor blood pressures and heart rates and notify clinic if symptoms do not improve, if they worsen, or with any questions or concerns. 01/07/2017 Appointment: Pebbles Lund [phone] (30 min) Complex 01/07/2017 Patient Education: Patient [...] pressures. 01/01/2017 Appointment: Pebbles Lund WPtel: [phone] [facility] (30 min) Complex 01/01/2017 Patient Education: Patient [...] care surrogate. 12/12/2016 Appointment: Pebbles Lund [facility] [phone] [facility] [facility] - Annual Wellness Visit 12/12/2016 Patient Education: [...] this time. 12/11/2016 Appointment: Kim Burden WPtel: [facility] (15 min) Moderate 12/11/2016 Patient Education: Patient Medication Summary Completed 12/11/2016 Appointment: Mallorie Wetzel [phone] [facility] [place] (30 min) Complex 12/10/2016 Visit Plan: Hypertension [...] not improving. 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 07/17/2016 Appointment: Kim Burden WPtel: [facility] [place] (15 min) Moderate 07/17/2016 Patient Education: Patient Medication Summary Completed 07/17/2016 Appointment: Kim Burden WPtel: [address] [place], [place] [id number] (15 min) Moderate 06/10/2016 Visit Plan: Hip pain - persistent but improving - continue with current treatment plan. Pt to call if her symptoms are not improving or if her hip pain worsens. URI symptoms - supportive care, use otc allergy medications. 05/15/2016 Appointment: Kim Burden WPtel: [facility] [place] (15 min) Moderate 05/15/2016 Patient Education: [...] not improving. 04/23/2016 Appointment: Kim Burden [facility]: [phone] (15 min) Moderate 04/23/2016 Patient Education: Patient Medication Summary Completed 04/23/2016 Patient Education: Hypertension Completed 04/23/2016 Care Plan: X-RAY EXAM OF [facility] : 22305-5 Pending 03/18/2016 Visit Plan: URI - Pt [...] allergy spray. 03/14/2016 Appointment: Pebbles Lund WPtel: [facility] (30 min) Complex 03/14/2016 Patient Education: Patient Medication Summary Completed 03/14/2016 Patient Education: Patient Medication Summary Completed 02/29/2016 Visit Plan: Flank pain - pt is currently being treated for UTI, but is having continued left flank pain - will get KUB - pt is to notify clinic if symptoms do not improve, or with any concerns. 02/19/2016 Appointment: Pebbles Lund WPtel: [facility] (30 min) Complex 02/19/2016 Patient Education: Patient Medication Summary Completed 02/19/2016 Appointment: Kim Burden [facility]Ptel: [phone] (15 min) Moderate 01/22/2016 Visit Plan: Hypertension [...] not improving. 12/19/2015 Appointment: Kim Burden [phone] (15 min) Moderate 12/19/2015 Patient Education: Patient [...] Finish RX. 03/06/2015 Appointment: Kim Burden [facility]: [phone] Follow up 03/06/2015 Patient Education: Patient Medication [...] Completed 02/07/2015 Care Plan: SCREENINGMAMMOGRAPHYDIGITAL LOINC : 97621-6 Ordered 02/07/2015 Care Plan: COMPLETE CBC AUTOMATED LOINC : 14399-6 Ordered 02/07/2015 Instructions Comment . COPD - chronic problem for this [...] blood pressures. TAKE WITH FOOD AND PROBIOTIC ([employer] OR [employer]) . URI - Pt advised to increase [...] in the nasal steroid allergy spray. . Thoracic back pain - x-ray showed compression fracture of lower thoracic vertebrae - pt still having significant pain - will order MRI and schedule pt for kyphoplasty - pt is to notify clinic if symptoms do not improve, if they worsen, or with any acute changes, questions, or concerns. . Dehydration, palpitations, malaise, headache - will send for outpatient fluids, will check labs, ekg. Pt is to restart her spironolactone, continue to monitor blood pressures and heart rates and notify clinic if symptoms do not improve, if they worsen, or with any questions or concerns. . HTN - blood pressure too well controlled - recommend pt to stop amlodipine, monitor blood pressure at home and call if pressure starts to rise too quickly. Pelvic pain improving per patient report - pt has been advised that she needs to keep her activities easy, slowly advance movements - call if not improving. increase current supply of (norvas) AMLODIPINE 2.5mg daily to 5mg daily. . [...] or if any worse. Finish RX. . Flank pain - pt is currently being treated for UTI, but is having continued left flank pain - will get KUB - pt is to notify clinic if symptoms do not improve, or with any concerns. . COPD - chronic problem for this [...] office if the symptoms are not improving. Liquid Vitamin B12 or Vitamin B12 dissolving [...] advised to continue with oxygen when active. change the metoprolol to 1 pill in the morning and 1.5 pills at bedtime. bring a reading of your blood pressure and heart rate to the office in one week. - make a orsetta that says MICHELLE on the days that [...] Kenalog injection today in the office. . 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 . 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 . Hip pain - persistent but improving [...] exposure. No change in current medications. . Hypertension - well controlled - [...] is stable, monitor for acute changes. . Medicare Exam - today we discussed [...] her DOPA paperwork for health care surrogate. decrease omeprazole to 20mg at bedtime start on a probiotic to help decrease GI upset./loose stools - Constantino seay [facility] . Hypertension - well controlled - continue [...] if the symptoms are not improving. . Hypertension - well controlled - continue [...] if the symptoms are not improving. . Hypertension - well controlled - continue [...] pain occurs at the site of injection. Compression left knee with ru wrap Refer [...]
--- OUTSIDE RECORDS SUMMARY | 2017-11-30 11:14 | XMS REPORT | Continuity of Care Document ---
Author Author [facility] Organization [facility] Address Unknown Phone Unavailable Allergies Active Description Code Type Severity Reaction Onset Reported/Identified Relationship to Patient Clinical Status Yes No Known Drug Allergies [id number] Drug Allergy Unknown N/A 10/07/2010 Yes ERYTHROMYCIN ERYTHROMYCIN Unknown N/A 01/07/2017 Yes azithromycin [id number] Drug Allergy Unknown N/A 09/02/2017 Medications There is no data. Problems Date Dx Coded Attending Type Code Diagnosis Diagnosed By 10/07/2010 Ot 682.6 CELLULITIS OF LEG 10/07/2010 Ot 729.81 SWELLING OF LIMB 02/03/2011 Ot 719.46 JOINT PAIN-L /LEG 04/11/2012 Ot 719.45 JOINT PAIN- PELVIS 04/11/2012 Ot 726.5 ENTHESOPATHY OF HIP 06/23/2013 ANTONY DOHERTY MD Ot 276.1 HYPOSMOLALITY 06/23/2013 ANTONY DOHERTY MD Ot 300.00 ANXIETY STATE NOS 06/23/2013 ANTONY DOHERTY MD Ot 338.29 OTHER CHRONIC PAIN 06/23/2013 ANTONY DOHERTY MD Ot 401.9 HYPERTENSION NOS 06/23/2013 ANTONY DOHERTY MD Ot 493.20 CHRONIC OBSTRUCTIVE ASTHMA, NOS 06/23/2013 ANTONY DOHERTY MD Ot 530.81 ESOPHAGEAL REFLUX 06/23/2013 ANTONY DOHERTY MD Ot 564.09 OTHER CONSTIPATION 06/23/2013 ANTONY DOHERTY MD Ot 716.90 ARTHROPATHY NOS-UNSPEC 06/23/2013 ANTONY DOHERTY MD Ot 722.52 LUMB/LUMBOSAC DISC DEGEN 06/23/2013 ANTONY DOHERTY MD Ot 726.5 ENTHESOPATHY OF HIP 06/23/2013 ANTONY DOHERTY MD Ot 729.5 PAIN IN LIMB 06/23/2013 ANTONY DOHERTY MD Ot 737.10 KYPHOSIS NOS 06/23/2013 BESSY JONES, ANTONY Newman Ot 737.30 IDIOPATHIC SCOLIOSIS 06/23/2013 BESSY JONES, ANTONY Newman Ot 738.4 ACQ SPONDYLOLISTHESIS 06/23/2013 BESSY JONES, ANTONY Newman Ot 787.01 NAUSEA WITH VOMITING 07/10/2013 GHANSHYAM SANDOVAL APRN Ot 924.11 CONTUSION OF KNEE 07/10/2013 GHANSHYAM SANDOVAL APRN Ot 959.7 LOWER LEG INJURY NOS 07/10/2013 GHANSHYAM SANDOVAL [employer] DEVELOPER Ot E000.8 OTHER EXTERNAL CAUSE STATUS 07/10/2013 GHANSHYAM SANDOVAL APRN Ot E849.6 ACCIDENT IN PUBLIC BLDG 07/10/2013 GHANSHYAM SANDOVAL APRN Ot E885.9 FALL FROM SLIPPING, TRIPPING, OR STUMBLI 08/17/2013 ES WARREN MD Ot 211.3 BENIGN NEOPLASM LG BOWEL 08/17/2013 ES WARREN MD Ot 553.3 DIAPHRAGMATIC HERNIA 08/17/2013 ES WARREN MD Ot 562.10 DIVERTICULOSIS COLON (W/O MENT OF HEMORR 08/17/2013 ES WARREN MD Ot 787.01 NAUSEA WITH VOMITING 08/17/2013 ES WARREN MD Ot V45.89 POSTSURGICAL STATES NEC 08/17/2013 ES WARREN MD Ot V76.51 SCREEN MAL NEOP-COLON 10/19/2013 PADMINI DE LA PAZ MD Ot 401.9 HYPERTENSION NOS 10/19/2013 PADMINI DE LA PAZ MD Ot 414.01 CORONARY ATHEROSCLEROSIS OF [place] CORON 10/19/2013 PADMINI DE LA PAZ MD Ot 496 CHR AIRWAY OBSTRUCT NEC 10/19/2013 PADMINI DE LA PAZ MD Ot 530.81 ESOPHAGEAL REFLUX 10/19/2013 PADMINI DE LA PAZ MD Ot 553.3 DIAPHRAGMATIC HERNIA 10/19/2013 PADMINI DE LA PAZ MD Ot 724.5 BACKACHE NOS 10/19/2013 PADMINI DE LA PAZ MD Ot 786.59 CHEST PAIN NEC 10/19/2013 PADMINI DE LA PAZ MD Ot 794.30 ABN CARDIOVASC STUDY NOS 10/19/2013 PADMINI DE LA PAZ MD Ot V15.82 HISTORY OF TOBACCO USE 10/19/2013 PADMINI DE LA PAZ MD Ot V17.49 FAMILY HISTORY OF OTHER CARDIOVASCULAR D 10/19/2013 BRAIN JONES, PADMINI Hernandez Ot V58.69 OTH MED,LT,CURRENT USE 10/26/2014 Ot 611.72 10/26/2014 Ot 435.9 10/26/2014 Ot 729.5 10/26/2014 Ot V76.12 10/26/2014 Ot 722.6 10/26/2014 DEL JONES, BRIAN Espinoza Ot 722.52 10/26/2014 BESSY JONES, ANTONY M Ot 553.3 10/26/2014 BESSY JONES, ANTONY M Ot 562.10 10/26/2014 BESSY JONES, ANTONY M Ot 625.9 10/26/2014 BESSY JONES, ANTONY M Ot 783.21 10/26/2014 BESSY JONES, ANTONY M Ot 789.00 10/26/2014 ES WARREN MD Ot V72.84 11/01/2014 BESSY JONES, ANTONY M Ot 466.0 11/07/2014 BESSY JONES, ANTONY M Ot 786.2 12/26/2014 BESSY JONES, ANTONY M Ot 466.0 01/18/2015 BESSY JONES, ANTONY M Ot 786.2 01/18/2015 BESSY JONES, ANTONY M Ot 786.2 01/18/2015 BESSY JONES, ANTONY M Ot 786.2 01/18/2015 Ot 611.72 01/18/2015 Ot 435.9 01/18/2015 Ot 729.5 01/18/2015 Ot V76.12 01/18/2015 Ot 722.6 01/18/2015 BRIAN MATHIS MD Ot 722.52 01/18/2015 BESSY JONES, ANTONY M Ot 553.3 01/18/2015 BESSY JONES, ANTONY M Ot 562.10 01/18/2015 BESSY JONES, ANTONY M Ot 625.9 01/18/2015 BESSY JONES, ANTONY M Ot 783.21 01/18/2015 BESSY JONES, ANTONY M Ot 789.00 01/18/2015 ES WARREN MD Ot V72.84 01/18/2015 BESSY JONES, ANTONY M Ot 786.2 01/18/2015 BESSY JONES, ANTONY M Ot 466.0 01/29/2015 BESSY JONES, ANTONY M Ot 466.0 ACUTE BRONCHITIS 02/06/2015 Ot 611.72 02/06/2015 Ot 435.9 02/06/2015 Ot 729.5 02/06/2015 Ot V76.12 02/06/2015 Ot 722.6 02/06/2015 DEL JONES, BRIAN Espinoza Ot 722.52 02/06/2015 BESSY JONES, ANTONY M Ot 553.3 02/06/2015 BESSY JONES, ANTONY M Ot 562.10 02/06/2015 BESSY JONES, ANTONY M Ot 625.9 02/06/2015 BESSY JONES, ANTONY M Ot 783.21 02/06/2015 BESSY JONES, ANTONY M Ot 789.00 02/06/2015 ES WARREN MD Ot V72.84 02/06/2015 BESSY JONES, ANTONY M Ot 786.2 02/06/2015 BESSY JONES, ANTONY M Ot 466.0 02/07/2015 Ot 611.72 02/07/2015 Ot 435.9 02/07/2015 Ot 729.5 02/07/2015 Ot V76.12 02/07/2015 Ot 722.6 02/07/2015 BRIAN MATHIS MD Ot 722.52 02/07/2015 BESSY JONES, ANTONY M Ot 553.3 02/07/2015 BESSY JONES, ANTONY M Ot 562.10 02/07/2015 BESSY JONES, ANTONY M Ot 625.9 02/07/2015 BESSY JONES, ANTONY M Ot 783.21 02/07/2015 BESSY JONES, ANTONY M Ot 789.00 02/07/2015 ES WARREN MD Ot V72.84 02/07/2015 BESSY JONES, ANTONY M Ot 786.2 02/07/2015 BESSY JONES, ANTONY M Ot 466.0 02/07/2015 BESSY JONES, ANTONY M Ot 786.2 02/25/2015 BESSY JONES, ANTONY M Ot 786.2 03/10/2015 ALEX MCIHEL Ot V76.12 03/20/2015 BESSY JONES, ANTONY M Ot 786.2 02/19/2016 Ot 729.5 PAIN IN LIMB 02/19/2016 Ot V76.12 OTH SCREEN MAMMO-MALIGN NEOPLASM OF LEANN 02/19/2016 Ot 722.6 DISC DEGENERATION NOS 02/19/2016 DEL JONES, BRIAN Espinoza Ot 722.52 LUMB/LUMBOSAC DISC DEGEN 02/19/2016 ANTONY DOHERTY MD Ot 553.3 DIAPHRAGMATIC HERNIA 02/19/2016 ANTONY DOHERTY MD Ot 562.10 DIVERTICULOSIS COLON (W/O MENT OF HEMORR 02/19/2016 ANTONY DOHERTY MD Ot 625.9 FEM GENITAL SYMPTOMS NOS 02/19/2016 ANTONY DOHERTY MD Ot 783.21 LOSS OF WEIGHT 02/19/2016 ANTONY DOHERTY MD Ot 789.00 ABDOMINAL PAIN, UNSPECIFIED SITE 02/19/2016 ES WARREN MD Ot V72.84 EXAM PRE-OPERATIVE NOS 02/19/2016 ANTONY DOHERTY MD Ot 786.2 COUGH 02/19/2016 ANTONY DOHERTY MD Ot 466.0 ACUTE BRONCHITIS 02/19/2016 ALEX MICHEL Ot V76.12 OTH SCREEN MAMMO-MALIGN NEOPLASM OF LEANN 02/20/2016 USHA JONES, YAZAN Farrell Ot R10.84 GENERALIZED ABDOMINAL PAIN 02/29/2016 Ot 729.5 PAIN IN LIMB 02/29/2016 Ot V76.12 OTH SCREEN MAMMO-MALIGN NEOPLASM OF LEANN 02/29/2016 Ot 722.6 DISC DEGENERATION NOS 02/29/2016 DEL JONES, BRIAN Espinoza Ot 722.52 LUMB/LUMBOSAC DISC DEGEN 02/29/2016 ANTONY DOHERTY MD Ot 553.3 DIAPHRAGMATIC HERNIA 02/29/2016 ANTONY DOHERTY MD Ot 562.10 DIVERTICULOSIS COLON (W/O MENT OF HEMORR 02/29/2016 ANTONY DOHERTY MD Ot 625.9 FEM GENITAL SYMPTOMS NOS 02/29/2016 ANTONY DOHERTY MD Ot 783.21 LOSS OF WEIGHT 02/29/2016 ANTONY DOHERTY MD Ot 789.00 ABDOMINAL PAIN, UNSPECIFIED SITE 02/29/2016 ES WARREN MD Ot V72.84 EXAM PRE-OPERATIVE NOS 02/29/2016 BESSY JONES, ANTONY Newman Ot 786.2 COUGH 02/29/2016 ANTONY DOHERTY MD Ot 466.0 ACUTE BRONCHITIS 02/29/2016 ANAND ALEX Paty WATER HAULER Ot V76.12 OTH SCREEN MAMMO-MALIGN NEOPLASM OF LEANN 02/29/2016 USHA JONES, YAZAN Farrell Ot R10.84 GENERALIZED ABDOMINAL PAIN 02/29/2016 NONA BLACKMAN [employer] DEVELOPER Ot Z12.31 ENCNTR SCREEN MAMMOGRAM FOR MALIGNANT NE 03/01/2016 NONA BLACKMAN [employer] HR DEVELOPER Ot Z12.31 ENCNTR SCREEN MAMMOGRAM FOR MALIGNANT NE 03/01/2016 NONA BLACKMAN [employer] HR DEVELOPER Ot R10.84 GENERALIZED ABDOMINAL PAIN 03/01/2016 NONA BLACKMAN [employer] HR DEVELOPER Ot Z12.31 ENCNTR SCREEN MAMMOGRAM FOR MALIGNANT NE 03/14/2016 USHA JONES, YAZAN Farrell Ot R10.84 GENERALIZED ABDOMINAL PAIN 03/23/2016 NONA BLACKMAN [employer] HR DEVELOPER Ot R10.84 GENERALIZED ABDOMINAL PAIN 03/23/2016 NONA BLACKMAN [employer] HR DEVELOPER Ot Z12.31 ENCNTR SCREEN MAMMOGRAM FOR MALIGNANT NE 03/27/2016 MISSY JONES, PATRICIA N Ot N83.20 UNSPECIFIED OVARIAN CYSTS 03/28/2016 MISSY JONES, PATRICIA N Ot N83.20 UNSPECIFIED OVARIAN CYSTS 03/29/2016 ANTONY DOHERTY MD Ot 466.0 ACUTE BRONCHITIS 03/29/2016 MADDY BARDALES MD Ot S09.90XA UNSPECIFIED INJURY OF HEAD, INITIAL ENCO 03/29/2016 MADDY BARDALES MD Ot S32.592A OTH FRACTURE OF LEFT PUBIS, INIT ENCNTR 03/29/2016 MADDY BARDALES MD Ot W01.0XXA FALL SAME LEV FROM SLIP/TRIP W/O STRIKE 03/29/2016 MADDY BARDALES MD Ot Y92.[address] IN [facility] NON-INSTITUT (PRIVATE 03/29/2016 MADDY BARDALES MD Ot Y99.8 OTHER EXTERNAL CAUSE STATUS 04/03/2016 MADDY BARDALES MD Ot S09.90XA UNSPECIFIED INJURY OF HEAD, INITIAL ENCO 04/03/2016 MADDY BARDALES MD Ot S32.592A OTH FRACTURE OF LEFT PUBIS, INIT ENCNTR 04/03/2016 CATIA JONES, MADDY Espinoza Ot W01.0XXA FALL SAME LEV FROM SLIP/TRIP W/O STRIKE 04/03/2016 MADDY BARDALES MD Ot Y92.[address] IN [facility] NON-INSTITUT (PRIVATE 04/03/2016 MADDY BARDALES MD Ot Y99.8 OTHER EXTERNAL CAUSE STATUS 04/18/2016 MISSY JONES, PATRICIA Sandy Ot N83.20 UNSPECIFIED OVARIAN CYSTS 05/22/2016 NONA BLACKMAN [employer] DEVELOPER Ot S32.592D OTH FRACTURE OF LEFT PUBIS, SUBS FOR FX 06/12/2016 USHA JONES, YAZAN Farrell Ot M81.0 AGE-RELATED OSTEOPOROSIS W/O CURRENT PAT 06/12/2016 NONA BLACKMAN [employer] HR DEVELOPER Ot S32.592D OTH FRACTURE OF LEFT PUBIS, SUBS FOR FX 09/16/2016 Ot V76.12 OTH SCREEN MAMMO-MALIGN NEOPLASM OF LEANN 09/16/2016 Ot 722.6 DISC DEGENERATION NOS 09/16/2016 DEL JONES, BRIAN Espinoza Ot 722.52 LUMB/LUMBOSAC DISC DEGEN 09/16/2016 BESSY JONES, ANTONY Newman Ot 553.3 DIAPHRAGMATIC HERNIA 09/16/2016 BESSY JONES, ANTONY Newman Ot 562.10 DIVERTICULOSIS COLON (W/O MENT OF HEMORR 09/16/2016 ANTONY DOHERTY MD Ot 625.9 FEM GENITAL SYMPTOMS NOS 09/16/2016 BESSY JONES, ANTONY Newman Ot 783.21 LOSS OF WEIGHT 09/16/2016 BESSY JONES, ANTONY Newman Ot 789.00 ABDOMINAL PAIN, UNSPECIFIED SITE 09/16/2016 BRIANA JONES, ES Espinoza Ot V72.84 EXAM PRE-OPERATIVE NOS 09/16/2016 BESSY JONES, ANTONY Newman Ot 786.2 COUGH 09/16/2016 ANTONY DOHERTY MD Ot 466.0 ACUTE BRONCHITIS 09/16/2016 ALEX MICHEL Ot V76.12 OTH SCREEN MAMMO-MALIGN NEOPLASM OF LEANN 09/16/2016 YAZAN KERR MD Ot R10.84 GENERALIZED ABDOMINAL PAIN 09/16/2016 YEHUDA, NONA M [employer] DEVELOPER Ot R10.84 GENERALIZED ABDOMINAL PAIN 09/16/2016 YEHUDA NONA M [employer] HR DEVELOPER Ot Z12.31 ENCNTR SCREEN MAMMOGRAM FOR MALIGNANT NE 09/16/2016 MISSY JONES, PATRICIA N Ot N83.20 UNSPECIFIED OVARIAN CYSTS 09/16/2016 USHA JONES, YAZAN Farrell Ot M81.0 AGE-RELATED OSTEOPOROSIS W/O CURRENT PAT 09/16/2016 NONA BLACKMAN [employer] HR DEVELOPER Ot S32.592D OTH FRACTURE OF LEFT PUBIS, SUBS FOR FX 09/18/2016 MISSY JONES, PATRICIA N Ot D27.1 BENIGN NEOPLASM OF LEFT OVARY 10/11/2016 MISSY JONES, PATRICIA N Ot D27.1 BENIGN NEOPLASM OF LEFT OVARY 01/07/2017 NONA BLACKMAN [employer] HR DEVELOPER Ot E86.0 DEHYDRATION 01/07/2017 NONA BLACKMAN [employer] HR DEVELOPER Ot R00.1 BRADYCARDIA, UNSPECIFIED 01/07/2017 BESSY JONES, ANTONY Newman Ot 466.0 ACUTE BRONCHITIS 01/09/2017 NONA BLACKMAN [employer] HR DEVELOPER Ot E86.0 DEHYDRATION 01/09/2017 NONA BLACKMAN [employer] HR DEVELOPER Ot R00.1 BRADYCARDIA, UNSPECIFIED 02/27/2017 YAZAN KERR MD Ot D72.819 DECREASED WHITE BLOOD CELL COUNT, UNSPEC 02/27/2017 YAZAN KERR MD Ot D72.819 DECREASED WHITE BLOOD CELL COUNT, UNSPEC 03/18/2017 YAZAN KERR MD Ot D72.819 DECREASED WHITE BLOOD CELL COUNT, UNSPEC 05/24/2017 ES KAMINSKI MD Ot F41.9 ANXIETY DISORDER, UNSPECIFIED 05/24/2017 ES KAMINSKI MD Ot I10 ESSENTIAL (PRIMARY) HYPERTENSION 05/24/2017 ES KAMINSKI MD Ot J43.9 EMPHYSEMA, UNSPECIFIED 05/24/2017 ES KAMINSKI MD Ot K21.9 GASTRO-ESOPHAGEAL REFLUX DISEASE WITHOUT 05/24/2017 ES KAMINSKI MD Ot M19.90 UNSPECIFIED OSTEOARTHRITIS, UNSPECIFIED 05/24/2017 ES KAMINSKI MD Ot M25.562 PAIN IN LEFT KNEE 05/24/2017 ES KAMINSKI MD Ot S09.90XA UNSPECIFIED INJURY OF HEAD, INITIAL ENCO 05/24/2017 ES KAMINSKI MD Ot S80.02XA CONTUSION OF LEFT KNEE, INITIAL ENCOUNTE 05/24/2017 YAMILEX JONES, ES Gibson Ot W18.30XA FALL ON SAME LEVEL, UNSPECIFIED, INITIAL 05/24/2017 YAMILEX JONES, ES Gibson Ot Y92.[address] 05/24/2017 YAMILEX JONES, ES Gibson Ot Z82.49 FAMILY HX OF ISCHEM HEART DIS AND OTH DI 05/24/2017 YAMILEX JONES, ES Gibson Ot Z87.19 PERSONAL HISTORY OF OTHER DISEASES OF 05/24/2017 YAMILEX JONES, ES Gibson Ot Z87.891 PERSONAL HISTORY OF NICOTINE DEPENDENCE 05/24/2017 YAMILEX JONES, ES Gibson Ot Z90.710 ACQUIRED ABSENCE OF BOTH CERVIX AND UTER 05/24/2017 YAMILEX JONES, ES Gibson Ot Z90.89 ACQUIRED ABSENCE OF OTHER ORGANS 05/26/2017 YAMILEX JONES, ES Gibson Ot F41.9 ANXIETY DISORDER, UNSPECIFIED 05/26/2017 YAMILEX JONES, ES Gibson Ot I10 ESSENTIAL (PRIMARY) HYPERTENSION 05/26/2017 YAMILEX JONES, ES Gibson Ot J43.9 EMPHYSEMA, UNSPECIFIED 05/26/2017 YAMILEX JONES, ES Gibson Ot K21.9 GASTRO-ESOPHAGEAL REFLUX DISEASE WITHOUT 05/26/2017 YAMILEX JONES, ES Gibson Ot M19.90 UNSPECIFIED OSTEOARTHRITIS, UNSPECIFIED 05/26/2017 YAMILEX JONES, ES Gibson Ot M25.562 PAIN IN LEFT KNEE 05/26/2017 YAMILEX JONES, ES Gibson Ot S09.90XA UNSPECIFIED INJURY OF HEAD, INITIAL ENCO 05/26/2017 YAMILEX JONES, ES Gibson Ot S80.02XA CONTUSION OF LEFT KNEE, INITIAL ENCOUNTE 05/26/2017 YAMILEX JONES, ES Gibson Ot W18.30XA FALL ON SAME LEVEL, UNSPECIFIED, INITIAL 05/26/2017 YAMILEX JONES, SE Gibson Ot Y92.[address] 05/26/2017 YAMILEX JONES, ES Gibson Ot Z82.49 FAMILY HX OF ISCHEM HEART DIS AND OTH DI 05/26/2017 YAMILEX JONES, ES Gibson Ot Z87.19 PERSONAL HISTORY OF OTHER DISEASES OF 05/26/2017 ES KAMINSKI MD Ot Z87.891 PERSONAL HISTORY OF NICOTINE DEPENDENCE 05/26/2017 YAMILEX JONES, ES Gibson Ot Z90.710 ACQUIRED ABSENCE OF BOTH CERVIX AND UTER 05/26/2017 AYMILEX JONES ES Gibson Ot Z90.89 ACQUIRED ABSENCE OF OTHER ORGANS 05/27/2017 YAMILEX JONES, SE Gibson Ot F41.9 ANXIETY DISORDER, UNSPECIFIED 05/27/2017 YAMILEX JONES ES Arthur Ot I10 ESSENTIAL (PRIMARY) HYPERTENSION 05/27/2017 YAMILEX JONES, ES Arthur Ot J43.9 EMPHYSEMA, UNSPECIFIED 05/27/2017 YAMILEX JONES, ES Gibson Ot K21.9 GASTRO-ESOPHAGEAL REFLUX DISEASE WITHOUT 05/27/2017 YAMILEX JONES, ES Gibson Ot M19.90 UNSPECIFIED OSTEOARTHRITIS, UNSPECIFIED 05/27/2017 YAMILEX JONES, ES Gibson Ot M25.562 PAIN IN LEFT KNEE 05/27/2017 YAMILEX JONES, ES Gibson Ot S09.90XA UNSPECIFIED INJURY OF HEAD, INITIAL ENCO 05/27/2017 YAMILEX JONES ES Arthur Ot S80.02XA CONTUSION OF LEFT KNEE, INITIAL ENCOUNTE 05/27/2017 YAMILEX JONES, ES Gibson Ot W18.30XA FALL ON SAME LEVEL, UNSPECIFIED, INITIAL 05/27/2017 YAMILEX JONES, ES Gibson Ot Y92.[address] 05/27/2017 YAMILEX JONES ES Arthur Ot Z82.49 FAMILY HX OF ISCHEM HEART DIS AND OTH DI 05/27/2017 YAMILEX JONES ES Arthur Ot Z87.19 PERSONAL HISTORY OF OTHER DISEASES OF 05/27/2017 YAMILEX JONES ES Arthur Ot Z87.891 PERSONAL HISTORY OF NICOTINE DEPENDENCE 05/27/2017 YAMILEX JONES, ES Gibson Ot Z90.710 ACQUIRED ABSENCE OF BOTH CERVIX AND UTER 05/27/2017 YAMILEX JONES, ES Arthur Ot Z90.89 ACQUIRED ABSENCE OF OTHER ORGANS 06/04/2017 MADDY BARDALES MD Ot F41.9 ANXIETY DISORDER, UNSPECIFIED 06/04/2017 MADDY BARDALES MD Ot I10 ESSENTIAL (PRIMARY) HYPERTENSION 06/04/2017 MADDY BARDALES MD Ot J43.9 EMPHYSEMA, UNSPECIFIED 06/04/2017 MADDY BARDALES MD Ot K21.9 GASTRO-ESOPHAGEAL REFLUX DISEASE WITHOUT 06/04/2017 MADDY BARDALES MD Ot M25.562 PAIN IN LEFT KNEE 06/04/2017 MADDY BARDALES MD Ot S80.12XA CONTUSION OF LEFT LOWER LEG, INITIAL ENC 06/04/2017 MADDY BARDALES MD Ot W19.XXXA UNSPECIFIED FALL, INITIAL ENCOUNTER 06/04/2017 MADDY BARDALES MD Ot Z79.82 INDUSTRIAL TRACTOR DRIVER (CURRENT) USE OF ASPIRIN 06/04/2017 MADDY BARDALES MD Ot Z82.49 FAMILY HX OF ISCHEM HEART DIS AND OTH DI 06/04/2017 MADDY BARDALES MD Ot Z87.19 PERSONAL HISTORY OF OTHER DISEASES OF TH 06/04/2017 MADDY BARDALES MD Ot Z87.891 PERSONAL HISTORY OF NICOTINE DEPENDENCE 06/04/2017 MADDY BARDALES MD Ot Z90.710 ACQUIRED ABSENCE OF BOTH CERVIX AND UTER 06/04/2017 MADDY BARDALES MD Ot Z90.89 ACQUIRED ABSENCE OF OTHER ORGANS 07/15/2017 ES KAMINSKI MD Ot F41.9 ANXIETY DISORDER, UNSPECIFIED 07/15/2017 ES KAMINSKI MD Ot I10 ESSENTIAL (PRIMARY) HYPERTENSION 07/15/2017 ES KAMINSKI MD Ot J43.9 EMPHYSEMA, UNSPECIFIED 07/15/2017 ES KAMINSKI MD Ot K21.9 GASTRO-ESOPHAGEAL REFLUX DISEASE WITHOUT 07/15/2017 ES KAMINSKI MD Ot M19.90 UNSPECIFIED OSTEOARTHRITIS, UNSPECIFIED 07/15/2017 ES KAMINSKI MD Ot M25.562 PAIN IN LEFT KNEE 07/15/2017 ES KAMINSKI MD Ot S09.90XA UNSPECIFIED INJURY OF HEAD, INITIAL ENCO 07/15/2017 ES KAMINSKI MD Ot S80.02XA CONTUSION OF LEFT KNEE, INITIAL ENCOUNTE 07/15/2017 ES KAMINSKI MD Ot W18.30XA FALL ON SAME LEVEL, UNSPECIFIED, INITIAL 07/15/2017 ES KAMINSKI MD Ot Y92.[address] 07/15/2017 ES KAMINSKI MD Ot Z82.49 FAMILY HX OF ISCHEM HEART DIS AND OTH DI 07/15/2017 YAMILEX MD, ES S Ot Z87.19 PERSONAL HISTORY OF OTHER DISEASES OF TH 07/15/2017 YAMILEX JONES, ES Gibson Ot Z87.891 PERSONAL HISTORY OF NICOTINE DEPENDENCE 07/15/2017 YAMILEX JONES, ES Gibson Ot Z90.710 ACQUIRED ABSENCE OF BOTH CERVIX AND UTER 07/15/2017 YAMILEX JONES, ES Gibson Ot Z90.89 ACQUIRED ABSENCE OF OTHER ORGANS 07/15/2017 Ot V76.12 OTH SCREEN MAMMO-MALIGN NEOPLASM OF LEANN 07/15/2017 Ot 722.6 DISC DEGENERATION NOS 07/15/2017 DEL JONES, BRIAN Espinoza Ot 722.52 LUMB/LUMBOSAC DISC DEGEN 07/15/2017 BESSY JONES, ANTONY Newman Ot 553.3 DIAPHRAGMATIC HERNIA 07/15/2017 BESSY JONES, ANTONY Newman Ot 562.10 DIVERTICULOSIS COLON (W/O MENT OF HEMORR 07/15/2017 ANTONY DOHERTY MD Ot 625.9 FEM GENITAL SYMPTOMS NOS 07/15/2017 ANTONY DOHERTY MD Ot 783.21 LOSS OF WEIGHT 07/15/2017 ANTONY DOHERTY MD Ot 789.00 ABDOMINAL PAIN, UNSPECIFIED SITE 07/15/2017 BRIANA JONES, ES Espinoza Ot V72.84 EXAM PRE-OPERATIVE NOS 07/15/2017 BESSY JONES, ANTONY Newman Ot 786.2 COUGH 07/15/2017 ANTONY DOHERTY MD Ot 466.0 ACUTE BRONCHITIS 07/15/2017 ALEX MICHEL Ot V76.12 OTH SCREEN MAMMO-MALIGN NEOPLASM OF LEANN 07/15/2017 USHA JONES, YAZAN Farrell Ot R10.84 GENERALIZED ABDOMINAL PAIN 07/15/2017 NONA BLACKMAN APRN Ot R10.84 GENERALIZED ABDOMINAL PAIN 07/15/2017 NONA BLACKMAN APRN Ot Z12.31 ENCNTR SCREEN MAMMOGRAM FOR MALIGNANT NE 07/15/2017 MISSY JONES, PATRICIA Sandy Ot N83.20 UNSPECIFIED OVARIAN CYSTS 07/15/2017 MISSY JONES, PATRICIA Sandy Ot D27.1 BENIGN NEOPLASM OF LEFT OVARY 07/15/2017 USHA JONES, YAZAN Farrell Ot M81.0 AGE-RELATED OSTEOPOROSIS W/O CURRENT PAT 07/15/2017 NONA BLACKMAN APRN Ot S32.592D OTH FRACTURE OF LEFT PUBIS, SUBS FOR FX 07/15/2017 USHA JONES, YAZAN Jami Ot D72.819 DECREASED WHITE BLOOD CELL COUNT, UNSPEC 07/17/2017 MOSES LARIOS DO Ot F32.9 MAJOR DEPRESSIVE DISORDER, SINGLE EPISOD 07/17/2017 MOSES LARIOS DO Ot F41.9 ANXIETY DISORDER, UNSPECIFIED 07/17/2017 MOSES LARIOS DO Ot I10 ESSENTIAL (PRIMARY) HYPERTENSION 07/17/2017 MOSES LARIOS DO Ot J43.9 EMPHYSEMA, UNSPECIFIED 07/17/2017 MOSES LARIOS DO Ot K21.9 GASTRO-ESOPHAGEAL REFLUX DISEASE WITHOUT 07/17/2017 MOSES LARIOS DO Ot K43.9 VENTRAL HERNIA WITHOUT OBSTRUCTION OR GA 07/17/2017 MOSES LARIOS DO Ot K44.9 DIAPHRAGMATIC HERNIA WITHOUT OBSTRUCTION 07/17/2017 MOSES LARIOS DO Ot K66.0 PERITONEAL ADHESIONS (POSTPROCEDURAL) (P 07/17/2017 MOSES LARIOS DO Ot K80.10 CALCULUS OF GALLBLADDER W CHRONIC CHOLEC 07/17/2017 MOSES LARIOS DO Ot K82.8 OTHER SPECIFIED DISEASES OF [place]ALLBL[place] 07/17/2017 MOSES LARIOS DO Ot M19.91 PRIMARY OSTEOARTHRITIS, UNSPECIFIED SITE 07/17/2017 MOSES LARIOS DO Ot M54.9 DORSALGIA, UNSPECIFIED 07/17/2017 MOSES LARIOS DO Ot M79.662 PAIN IN LEFT LOWER LEG 07/17/2017 MOSES LARIOS DO Ot R29.810 FACIAL WEAKNESS 07/17/2017 MOSES LARIOS DO Ot Z23 ENCOUNTER FOR IMMUNIZATION 07/17/2017 MOSES LARIOS DO Ot Z87.828 PERSONAL HISTORY OF OTH (HEALED) PHYSICA 07/17/2017 MOSES LARIOS DO Ot Z87.891 PERSONAL HISTORY OF NICOTINE DEPENDENCE 07/17/2017 MOSES LARIOS DO Ot Z99.81 DEPENDENCE ON SUPPLEMENTAL OXYGEN 08/07/2017 Ot V76.12 OTH SCREEN MAMMO-MALIGN NEOPLASM OF [place] 08/07/2017 Ot 722.6 DISC DEGENERATION NOS 08/07/2017 DEL JONES, BRIAN Espinoza Ot 722.52 LUMB/LUMBOSAC DISC DEGEN 08/07/2017 ANTONY DOHERTY MD Ot 553.3 DIAPHRAGMATIC HERNIA 08/07/2017 ANTONY DOHERTY MD Ot 562.10 DIVERTICULOSIS COLON (W/O MENT OF HEMORR 08/07/2017 ANTONY DOHERTY MD Ot 625.9 FEM GENITAL SYMPTOMS NOS 08/07/2017 ANTONY DOHERTY MD Ot 783.21 LOSS OF WEIGHT 08/07/2017 ANTONY DOHERTY MD Ot 789.00 ABDOMINAL PAIN, UNSPECIFIED SITE 08/07/2017 BRIANA JONES, ES Espinoza Ot V72.84 EXAM PRE-OPERATIVE NOS 08/07/2017 ANTONY DOHERTY MD Ot 786.2 COUGH 08/07/2017 ANTONY DOHERTY MD Ot 466.0 ACUTE BRONCHITIS 08/07/2017 ALEX MICHEL Ot V76.12 OTH SCREEN MAMMO-MALIGN NEOPLASM OF [place] 08/07/2017 YAZAN KERR MD Ot R10.84 GENERALIZED ABDOMINAL PAIN 08/07/2017 NONA BLACKMAN APRN Ot R10.84 GENERALIZED ABDOMINAL PAIN 08/07/2017 NONA BLACKMAN APRN Ot Z12.31 ENCNTR SCREEN MAMMOGRAM FOR MALIGNANT NE 08/07/2017 MISSY JONES, PATRICIA Sandy Ot N83.20 UNSPECIFIED OVARIAN CYSTS 08/07/2017 PATRICIA LOUIS MD Ot D27.1 BENIGN NEOPLASM OF LEFT OVARY 08/07/2017 YAZAN KERR MD Ot M81.0 AGE-RELATED OSTEOPOROSIS W/O CURRENT PAT 08/07/2017 NONA BLACKMAN APRN Ot S32.592D OTH FRACTURE OF LEFT PUBIS, SUBS FOR FX 08/07/2017 YAZAN KERR MD Ot D72.819 DECREASED WHITE BLOOD CELL COUNT, UNSPEC 09/02/2017 MOSES LARIOS DO Ot K52.9 NONINFECTIVE GASTROENTERITIS AND COLITIS 09/02/2017 MOSES LARIOS DO Ot R93.3 ABNORMAL FINDINGS ON DX IMAGING OF PRT D 09/02/2017 MOSES LARIOS DO Ot Z01.818 ENCOUNTER FOR OTHER PREPROCEDURAL EXAMIN 09/02/2017 MOSES LARIOS DO Ot I10 ESSENTIAL (PRIMARY) HYPERTENSION 09/02/2017 MOSES LARIOS DO Ot I25.10 ATHSCL HEART DISEASE OF [place] CORONARY 09/02/2017 MOSES LARIOS DO Ot J44.9 CHRONIC OBSTRUCTIVE PULMONARY DISEASE, U 09/02/2017 MOSES LARIOS DO Ot K21.9 GASTRO-ESOPHAGEAL REFLUX DISEASE WITHOUT 09/02/2017 MOSES LARIOS DO Ot K57.30 DVRTCLOS OF LG INT W/O PERFORATION OR AB 09/02/2017 MOSES LARIOS DO Ot M81.0 AGE-RELATED OSTEOPOROSIS W/O CURRENT PAT 09/02/2017 MOSES LARIOS DO Ot R19.7 DIARRHEA, UNSPECIFIED 09/02/2017 MOSES LARIOS DO Ot Z79.899 OTHER SHELTER (CURRENT) DRUG THERAPY 09/02/2017 MOSES LARIOS DO Ot Z87.891 PERSONAL HISTORY OF NICOTINE DEPENDENCE 09/02/2017 MOSES LARIOS DO Ot Z88.1 ALLERGY STATUS TO OTHER ANTIBIOTIC AGENT 09/02/2017 MOSES LARIOS DO Ot K44.9 DIAPHRAGMATIC HERNIA WITHOUT OBSTRUCTION 09/02/2017 MOSES LARIOS DO Ot K63.89 OTHER SPECIFIED DISEASES OF INTESTINE 09/02/2017 BESSY JONES, ANTONY Newman Ot 466.0 ACUTE BRONCHITIS 09/08/2017 MOSES LARIOS DO Ot I10 ESSENTIAL (PRIMARY) HYPERTENSION 09/08/2017 MOSES LARIOS DO Ot I25.10 ATHSCL HEART DISEASE OF [place] CORONARY 09/08/2017 MOSES LARIOS DO Ot J44.9 CHRONIC OBSTRUCTIVE PULMONARY DISEASE, U 09/08/2017 MOSES LARIOS DO Ot K21.9 GASTRO-ESOPHAGEAL REFLUX DISEASE WITHOUT 09/08/2017 MOSES LARIOS DO Ot K57.30 DVRTCLOS OF LG INT W/O PERFORATION OR AB 09/08/2017 MOSES LARIOS DO Ot M81.0 AGE-RELATED OSTEOPOROSIS W/O CURRENT PAT 09/08/2017 MOSES LARIOS DO Ot R19.7 DIARRHEA, UNSPECIFIED 09/08/2017 MOSES LARIOS DO Ot Z79.899 OTHER INDUSTRIAL TRACTOR DRIVER (CURRENT) DRUG THERAPY 09/08/2017 MOSES LARIOS DO Ot Z87.891 PERSONAL HISTORY OF NICOTINE DEPENDENCE 09/08/2017 MOSES LARIOS DO Ot Z88.1 ALLERGY STATUS TO OTHER ANTIBIOTIC AGENT 09/08/2017 LELE JONES YANCY Z Ot F32.9 MAJOR DEPRESSIVE DISORDER, SINGLE EPISOD 09/08/2017 LELE JONES YANCY Z Ot F41.9 ANXIETY DISORDER, UNSPECIFIED 09/08/2017 LELE JONES YANCY Z Ot I10 ESSENTIAL (PRIMARY) HYPERTENSION 09/08/2017 LELE JONES YANCY Z Ot I71.2 THORACIC AORTIC ANEURYSM, WITHOUT RUPTUR 09/08/2017 LELE JONES YANCY Z Ot J44.9 CHRONIC OBSTRUCTIVE PULMONARY DISEASE, U 09/08/2017 LELE JONES YANCY Z Ot K21.9 GASTRO-ESOPHAGEAL REFLUX DISEASE WITHOUT 09/08/2017 LELE JONES YANCY Z Ot K58.9 IRRITABLE BOWEL SYNDROME WITHOUT DIARRHE 09/08/2017 LELE JONES YANCY Z Ot M81.0 AGE-RELATED OSTEOPOROSIS W/O CURRENT PAT 09/08/2017 LELE JONES YANCY Z Ot S22.079A UNSP FRACTURE OF T9-T10 [place], INIT F 09/08/2017 LELE JONES YANCY Z Ot W19.XXXA UNSPECIFIED FALL, INITIAL ENCOUNTER 09/08/2017 LELE JONES YANCY Z Ot Z79.82 INDUSTRIAL TRACTOR DRIVER (CURRENT) USE OF ASPIRIN 09/08/2017 LELE JONES YANCY Z Ot Z79.899 OTHER INDUSTRIAL TRACTOR DRIVER (CURRENT) DRUG THERAPY 09/08/2017 LELE JONES YANCY Z Ot Z87.891 PERSONAL HISTORY OF NICOTINE DEPENDENCE 09/08/2017 TERI ROYAL MDIQ Z Ot F32.9 MAJOR DEPRESSIVE DISORDER, SINGLE EPISOD 09/08/2017 LELE JONES YANCY Z Ot F41.9 ANXIETY DISORDER, UNSPECIFIED 09/08/2017 LELE JONES YANCY Z Ot I10 ESSENTIAL (PRIMARY) HYPERTENSION 09/08/2017 LELE JONES YANCY Z Ot I71.2 THORACIC AORTIC ANEURYSM, WITHOUT RUPTUR 09/08/2017 LELE JONES YANCY Z Ot J44.9 CHRONIC OBSTRUCTIVE PULMONARY DISEASE, U 09/08/2017 LELE JONES YANCY Z Ot K21.9 GASTRO-ESOPHAGEAL REFLUX DISEASE WITHOUT 09/08/2017 LELE JONES YANCY Z Ot K58.9 IRRITABLE BOWEL SYNDROME WITHOUT DIARRHE 09/08/2017 LELE JONES YANCY Z Ot M81.0 AGE-RELATED OSTEOPOROSIS W/O CURRENT PAT 09/08/2017 LELE JONES YANCY Z Ot S22.079A UNSP FRACTURE OF T9-T10 VERTEBRA, INIT F 09/08/2017 LELE JONES YANCY Z Ot W19.XXXA UNSPECIFIED FALL, INITIAL ENCOUNTER 09/08/2017 LELE JONES YANCY Z Ot Z79.82 SHELTER (CURRENT) USE OF ASPIRIN 09/08/2017 LELE JONES YANCY Z Ot Z79.899 OTHER SHELTER (CURRENT) DRUG THERAPY 09/08/2017 LELE JONES YANCY Z Ot Z87.891 PERSONAL HISTORY OF NICOTINE DEPENDENCE 09/24/2017 ALEX MICHEL WATER HAULER Ot M43.16 SPONDYLOLISTHESIS, LUMBAR REGION 09/24/2017 ALEX MICHEL WATER HAULER Ot 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, UNSPECIFIED 09/24/2017 ALEX MICHEL WATER HAULER Ot S22.070A WEDGE COMPRESSION FRACTURE OF T9-T10 ADA 09/24/2017 ALEX MICHEL WATER HAULER Ot W19.XXXA UNSPECIFIED FALL, INITIAL ENCOUNTER 09/24/2017 NONA BLACKMAN APRN Ot K44.9 DIAPHRAGMATIC HERNIA WITHOUT OBSTRUCTION 09/24/2017 NONA BLACKMAN APRN Ot S22.079A UNSP FRACTURE OF T9-T10 VERTEBRA, INIT F 10/03/2017 LELE JONES YANCY Z Ot F32.9 MAJOR DEPRESSIVE DISORDER, SINGLE EPISOD 10/03/2017 LELE JONES YANCY Z Ot F41.9 ANXIETY DISORDER, UNSPECIFIED 10/03/2017 LELE JONES, YANCY Z Ot I10 ESSENTIAL (PRIMARY) HYPERTENSION 10/03/2017 LELE JONES, YANCY Z Ot I71.2 THORACIC AORTIC ANEURYSM, WITHOUT RUPTUR 10/03/2017 LELE JONES YANCY Z Ot J44.9 CHRONIC OBSTRUCTIVE PULMONARY DISEASE, U 10/03/2017 LELE JONES YANCY Z Ot K21.9 GASTRO-ESOPHAGEAL REFLUX DISEASE WITHOUT 10/03/2017 LELE JONES, YANCY Z Ot K58.9 IRRITABLE BOWEL SYNDROME WITHOUT DIARRHE 10/03/2017 SUWAN MD, YANCY Z Ot M81.0 AGE-RELATED OSTEOPOROSIS W/O CURRENT PAT 10/03/2017 LELE JONES YANCY Z Ot S22.079A UNSP FRACTURE OF T9-T10 VERTEBRA, INIT F 10/03/2017 LELE JONES YANCY Z Ot W19.XXXA UNSPECIFIED FALL, INITIAL ENCOUNTER 10/03/2017 LELE JONES YANCY Z Ot Z79.82 SHELTER (CURRENT) USE OF ASPIRIN 10/03/2017 LELE JONES YANCY Z Ot Z79.899 OTHER SHELTER (CURRENT) DRUG THERAPY 10/03/2017 LELE JONES YANCY Z Ot Z87.891 PERSONAL HISTORY OF NICOTINE DEPENDENCE 10/06/2017 TERI ROYAL MDIQ Z Ot F32.9 MAJOR DEPRESSIVE DISORDER, SINGLE EPISOD 10/06/2017 LELE JONES YANCY Z Ot F41.9 ANXIETY DISORDER, UNSPECIFIED 10/06/2017 LELE JONES YANCY Z Ot I10 ESSENTIAL (PRIMARY) HYPERTENSION 10/06/2017 LELE JONES, YANCY Z Ot I71.2 THORACIC AORTIC ANEURYSM, WITHOUT RUPTUR 10/06/2017 ELLE JONES YANCY Z Ot J44.9 CHRONIC OBSTRUCTIVE PULMONARY DISEASE, U 10/06/2017 LELE JONES YANCY Z Ot K21.9 GASTRO-ESOPHAGEAL REFLUX DISEASE WITHOUT 10/06/2017 LELE JONES, YANCY Z Ot K58.9 IRRITABLE BOWEL SYNDROME WITHOUT DIARRHE 10/06/2017 LELE JONES YANCY Z Ot M81.0 AGE-RELATED OSTEOPOROSIS W/O CURRENT PAT 10/06/2017 LELE JONES YANCY Z Ot S22.079A UNSP FRACTURE OF T9-T10 VERTEBRA, INIT F 10/06/2017 LELE JONES YANCY Z Ot W19.XXXA UNSPECIFIED FALL, INITIAL ENCOUNTER 10/06/2017 LELE JONES YANCY Z Ot Z79.82 INDUSTRIAL TRACTOR DRIVER (CURRENT) USE OF ASPIRIN 10/06/2017 LELE JONES YANCY Z Ot Z79.899 OTHER INDUSTRIAL TRACTOR DRIVER (CURRENT) DRUG THERAPY 10/06/2017 LELE JONES YANCY Z Ot Z87.891 PERSONAL HISTORY OF NICOTINE DEPENDENCE 10/16/2017 LELE JONES YANCY Z Ot F32.9 MAJOR DEPRESSIVE DISORDER, SINGLE EPISOD 10/16/2017 LELE JONES YANCY Z Ot F41.9 ANXIETY DISORDER, UNSPECIFIED 10/16/2017 LELE JONES YANCY Z Ot I10 ESSENTIAL (PRIMARY) HYPERTENSION 10/16/2017 LELE JONES, YANCY Z Ot I71.2 THORACIC AORTIC ANEURYSM, WITHOUT RUPTUR 10/16/2017 LELE JONES YANCY Z Ot J44.9 CHRONIC OBSTRUCTIVE PULMONARY DISEASE, U 10/16/2017 LELE JONES YANCY Z Ot K21.9 GASTRO-ESOPHAGEAL REFLUX DISEASE WITHOUT 10/16/2017 LELE JONES, YANCY Z Ot K58.9 IRRITABLE BOWEL SYNDROME WITHOUT DIARRHE 10/16/2017 LELE JONES YANCY Z Ot M81.0 AGE-RELATED OSTEOPOROSIS W/O CURRENT PAT 10/16/2017 LELE JONES YANCY Z Ot S22.070A WEDGE COMPRESSION FRACTURE OF T9-T10 ADA 10/16/2017 LELE JONES YANCY Z Ot W19.XXXA UNSPECIFIED FALL, INITIAL ENCOUNTER 10/16/2017 LELE JONES YANCY Z Ot Z79.82 INDUSTRIAL TRACTOR DRIVER (CURRENT) USE OF ASPIRIN 10/16/2017 LELE JONES YANCY Z Ot Z79.899 OTHER INDUSTRIAL TRACTOR DRIVER (CURRENT) DRUG THERAPY 10/16/2017 LELE JONES, YANCY Z Ot Z87.891 PERSONAL HISTORY OF NICOTINE DEPENDENCE Procedures Code Description Performed By Performed On 83.96 INJECTION INTO BURSA 06/23/2013 [id number] RELEASE OMENTUM, PERCUTANEOUS ENDOSCOPIC 07/16/2017 [id number] RESECTION OF GALLBLADDER, PERCUTANEOUS E 07/16/2017 [id number] FLUOROSCOPY OF BILE DUCTS USING LOW OSMO 07/16/2017 Results Test Result Range Complete urinalysis with reflex to culture - 01/07/17 16:25 Urine color determination YELLOW NRG Urine clarity determination CLEAR NRG Urine pH measurement by test strip 6 5-9 Specific gravity of urine by test strip 1.015 1.016- 1.022 Urine protein assay by test strip, semi-quantitative NEGATIVE NEGATIVE Urine glucose detection by automated test strip NEGATIVE NEGATIVE Erythrocytes detection in urine sediment by light microscopy NEGATIVE NEGATIVE Urine ketones detection by automated test strip NEGATIVE NEGATIVE Urine nitrite detection by test strip NEGATIVE NEGATIVE Urine total bilirubin detection by test strip NEGATIVE NEGATIVE Urine urobilinogen measurement by automated test strip (mass/volume) NORMAL NORMAL Urine leukocyte esterase detection by dipstick 1+ NEGATIVE Automated urine sediment erythrocyte count by microscopy (number/high power field) NONE NRG Automated urine sediment leukocyte count by microscopy (number/high power field ) [HPF] NRG Bacteria detection in urine sediment by light microscopy MODERATE NRG Squamous epithelial cells detection in urine sediment by light microscopy 0-2 NRG Crystals detection in urine sediment by light microscopy NONE NRG Casts detection in urine sediment by light microscopy NONE NRG Mucus detection in urine sediment by light microscopy NEGATIVE NRG Complete urinalysis with reflex to culture YES NRG Bacterial urine culture - 01/07/17 16:25 URINE CULTURE RESULTS <10,000/ML NRG Automated blood complete blood count (hemogram) panel - 01/07/17 16:26 Blood leukocytes automated count (number/volume) 4.9 10*3/uL 4.3-11.0 Blood erythrocytes automated count (number/volume) 4.35 10*6/uL 4.35-5.85 Venous blood hemoglobin measurement (mass/volume) 13.7 g/dL 11.5-16.0 Blood hematocrit (volume fraction) 43 % 35-52 Automated erythrocyte mean corpuscular volume 98 [foz_us] 80-99 Automated erythrocyte mean corpuscular hemoglobin (mass per erythrocyte) 32 pg 25-34 Automated erythrocyte mean corpuscular hemoglobin concentration measurement ( mass/volume) 32 g/dL 32-36 Automated erythrocyte distribution width ratio 12.9 % 10.0-14.5 Automated blood platelet count (count/volume) 175 10*3/uL 130-400 Automated blood platelet mean volume measurement 10.2 [foz_us] 7.4-10.4 Comprehensive metabolic panel - 01/07/17 16:26 Serum or plasma sodium measurement (moles/volume) 136 mmol/L 135-145 Serum or plasma potassium measurement (moles/volume) 4.0 mmol/L 3.6-5.0 Serum or plasma chloride measurement (moles/volume) 102 mmol/L 98-107 Carbon dioxide 26 mmol/L 21-32 Serum or plasma anion gap determination (moles/volume) 8 mmol/L 5-14 Serum or plasma urea nitrogen measurement (mass/volume) 12 mg/dL 7-18 Serum or plasma creatinine measurement (mass/volume) 0.73 mg/dL 0.60-1.30 Serum or plasma urea nitrogen/creatinine mass ratio 16 NRG Serum or plasma creatinine measurement with calculation of estimated glomerular filtration rate > NRG Serum or plasma glucose measurement (mass/volume) 141 mg/dL 70-105 Serum or plasma calcium measurement (mass/volume) 9.0 mg/dL 8.5-10.1 Serum or plasma total bilirubin measurement (mass/volume) 0.6 mg/dL 0.1-1.0 Serum or plasma alkaline phosphatase measurement (enzymatic activity/volume) 70 U/L 40-136 Serum or plasma aspartate aminotransferase measurement (enzymatic activity/ volume) 23 U/L 5-34 Serum or plasma alanine aminotransferase measurement (enzymatic activity/volume ) 14 U/L 0-55 Serum or plasma protein measurement (mass/volume) 7.1 g/dL 6.4-8.2 Serum or plasma albumin measurement (mass/volume) 3.7 g/dL 3.2-4.5 Serum or plasma troponin i.cardiac measurement (mass/volume) - 01/07/17 16:26 Serum or plasma troponin i.cardiac measurement (mass/volume) < ng/ mL <0.30 Blood CBC with ordered manual differential panel - 02/26/17 14:45 Blood leukocytes automated count (number/volume) 4.4 10*3/uL 4.3-11.0 Blood erythrocytes automated count (number/volume) 3.94 10*6/uL 4.35-5.85 Venous blood hemoglobin measurement (mass/volume) 12.3 g/dL 11.5-16.0 Blood hematocrit (volume fraction) 39 % 35-52 Automated erythrocyte mean corpuscular volume 98 [foz_us] 80-99 Automated erythrocyte mean corpuscular hemoglobin (mass per erythrocyte) 31 pg 25-34 Automated erythrocyte mean corpuscular hemoglobin concentration measurement ( mass/volume) 32 g/dL 32-36 Automated erythrocyte distribution width ratio 12.4 % 10.0-14.5 Automated blood platelet count (count/volume) 152 10*3/uL 130-400 Automated blood platelet mean volume measurement 10.0 [foz_us] 7.4-10.4 Automated blood neutrophils/100 leukocytes 61 % 42-75 Automated blood lymphocytes/100 leukocytes 23 % 12-44 Blood monocytes/100 leukocytes 8 % NRG Automated blood eosinophils/100 leukocytes 9 % 0-10 Automated blood basophils/100 leukocytes 1 % 0-10 Blood neutrophils automated count (number/volume) 2.7 10*3 1.8-7.8 Blood lymphocytes automated count (number/volume) 1.0 10*3 1.0-4.0 Blood monocytes automated count (number/volume) 0.3 10*3 0.0-1.0 Automated eosinophil count 0.4 10*3/uL 0.0-0.3 Automated blood basophil count (count/volume) 0.0 10*3/uL 0.0-0.1 Manual blood segmented neutrophils/100 leukocytes 67 % NRG Manual blood lymphocytes/100 leukocytes 15 % NRG Manual eosinophils/100 leukocytes in nose 5 % NRG Blood lymphocytes variant/100 leukocytes 5 % NRG Blood basophilic stippling detection by light microscopy SLIGHT NRG Automated reticulocyte percentage - 02/26/17 14:45 Blood reticulocytes count (number/volume) 48 10*9/L 24- 90 Blood reticulocytes/100 erythrocytes 1.22 % 0.50-2.40 Fibrin D-dimer FEU measurement in platelet poor plasma (mass/volume) - 06:59 Fibrin D-dimer FEU measurement in platelet poor plasma (mass/volume) 1.76 ug/mL 0.00-0.49 Complete blood count (CBC) with automated white blood cell (WBC) differential - 07/15/17 07:03 Blood leukocytes automated count (number/volume) 4.6 10*3/uL 4.3-11.0 Blood erythrocytes automated count (number/volume) 4.69 10*6/uL 4.35-5.85 Venous blood hemoglobin measurement (mass/volume) 14.3 g/dL 11.5-16.0 Blood hematocrit (volume fraction) 44 % 35-52 Automated erythrocyte mean corpuscular volume 93 [foz_us] 80-99 Automated erythrocyte mean corpuscular hemoglobin (mass per erythrocyte) 31 pg 25-34 Automated erythrocyte mean corpuscular hemoglobin concentration measurement ( mass/volume) 33 g/dL 32-36 Automated erythrocyte distribution width ratio 13.4 % 10.0-14.5 Automated blood platelet count (count/volume) 172 10*3/uL 130-400 Automated blood platelet mean volume measurement 9.9 [foz_us] 7.4-10.4 Automated blood neutrophils/100 leukocytes 77 % 42-75 Automated blood lymphocytes/100 leukocytes 16 % 12-44 Blood monocytes/100 leukocytes 6 % 0-12 Automated blood eosinophils/100 leukocytes 2 % 0-10 Automated blood basophils/100 leukocytes 0 % 0-10 Blood neutrophils automated count (number/volume) 3.6 10*3 1.8-7.8 Blood lymphocytes automated count (number/volume) 0.7 10*3 1.0-4.0 Blood monocytes automated count (number/volume) 0.3 10*3 0.0-1.0 Automated eosinophil count 0.1 10*3/uL 0.0-0.3 Automated blood basophil count (count/volume) 0.0 10*3/uL 0.0-0.1 PT panel in platelet poor plasma by coagulation assay - 07/15/17 07:03 Prothrombin time (PT) in platelet poor plasma by coagulation assay 12.3 s 12.2-14.7 INR in platelet poor plasma or blood by coagulation assay 0.9 0.8-1.4 Activated partial thromboplastin time (aPTT) in platelet poor plasma bycoagulation assay - 07/15/17 07:03 Activated partial thromboplastin time (aPTT) in platelet poor plasma bycoagulation assay 29 s 24-35 Comprehensive metabolic panel - 07/15/17 07:03 Serum or plasma sodium measurement (moles/volume) 137 mmol/L 135-145 Serum or plasma potassium measurement (moles/volume) 4.2 mmol/L 3.6-5.0 Serum or plasma chloride measurement (moles/volume) 105 mmol/L 98-107 Carbon dioxide 23 mmol/L 21-32 Serum or plasma anion gap determination (moles/volume) 9 mmol/L 5-14 Serum or plasma urea nitrogen measurement (mass/volume) 16 mg/dL 7-18 Serum or plasma creatinine measurement (mass/volume) 0.76 mg/dL 0.60-1.30 Serum or plasma urea nitrogen/creatinine mass ratio 21 NRG Serum or plasma creatinine measurement with calculation of estimated glomerular filtration rate > NRG Serum or plasma glucose measurement (mass/volume) 119 mg/dL 70-105 Serum or plasma calcium measurement (mass/volume) 9.5 mg/dL 8.5-10.1 Serum or plasma total bilirubin measurement (mass/volume) 2.4 mg/dL 0.1-1.0 Serum or plasma alkaline phosphatase measurement (enzymatic activity/volume) 127 U/L 40-136 Serum or plasma aspartate aminotransferase measurement (enzymatic activity/ volume) 1175 U/L 5-34 Serum or plasma alanine aminotransferase measurement (enzymatic activity/volume ) 644 U/L 0-55 Serum or plasma protein measurement (mass/volume) 8.9 g/dL 6.4-8.2 Serum or plasma albumin measurement (mass/volume) 4.2 g/dL 3.2-4.5 Magnesium - 07/15/17 07:03 Magnesium 2.1 mg/dL 1.8-2.4 Serum or plasma troponin i.cardiac measurement (mass/volume) - 07/15/17 07:03 Serum or plasma troponin i.cardiac measurement (mass/volume) < ng/ mL <0.30 Myoglobin, serum - 07/15/17 07:03 Myoglobin, serum 44.0 ng/mL 10.0-92.0 Serum or plasma amylase measurement (enzymatic activity/volume) - 07/15/17 07: 03 Serum or plasma amylase measurement (enzymatic activity/volume) 43 U /L 25-125 Lipase - 07/15/17 07:03 Lipase 21 U/L 8-78 Methicillin resistant Staphylococcus aureus (MRSA) screening culture - 19:40 Methicillin resistant Staphylococcus aureus (MRSA) screening culture NEG NRG Automated blood complete blood count (hemogram) panel - 07/16/17 06:55 Blood leukocytes automated count (number/volume) 5.0 10*3/uL 4.3-11.0 Blood erythrocytes automated count (number/volume) 4.09 10*6/uL 4.35-5.85 Venous blood hemoglobin measurement (mass/volume) 12.6 g/dL 11.5-16.0 Blood hematocrit (volume fraction) 39 % 35-52 Automated erythrocyte mean corpuscular volume 95 [foz_us] 80-99 Automated erythrocyte mean corpuscular hemoglobin (mass per erythrocyte) 31 pg 25-34 Automated erythrocyte mean corpuscular hemoglobin concentration measurement ( mass/volume) 33 g/dL 32-36 Automated erythrocyte distribution width ratio 13.7 % 10.0-14.5 Automated blood platelet count (count/volume) 155 10*3/uL 130-400 Automated blood platelet mean volume measurement 10.5 [foz_us] 7.4-10.4 Comprehensive metabolic panel - 07/16/17 06:55 Serum or plasma sodium measurement (moles/volume) 137 mmol/L 135-145 Serum or plasma potassium measurement (moles/volume) 3.5 mmol/L 3.6-5.0 Serum or plasma chloride measurement (moles/volume) 106 mmol/L 98-107 Carbon dioxide 21 mmol/L 21-32 Serum or plasma anion gap determination (moles/volume) 10 mmol/L 5-14 Serum or plasma urea nitrogen measurement (mass/volume) 11 mg/dL 7-18 Serum or plasma creatinine measurement (mass/volume) 0.67 mg/dL 0.60-1.30 Serum or plasma urea nitrogen/creatinine mass ratio 16 NRG Serum or plasma creatinine measurement with calculation of estimated glomerular filtration rate > NRG Serum or plasma glucose measurement (mass/volume) 91 mg/dL 70-105 Serum or plasma calcium measurement (mass/volume) 8.7 mg/dL 8.5-10.1 Serum or plasma total bilirubin measurement (mass/volume) 6.6 mg/dL 0.1-1.0 Serum or plasma alkaline phosphatase measurement (enzymatic activity/volume) 164 U/L 40-136 Serum or plasma aspartate aminotransferase measurement (enzymatic activity/ volume) 531 U/L 5-34 Serum or plasma alanine aminotransferase measurement (enzymatic activity/volume ) 605 U/L 0-55 Serum or plasma protein measurement (mass/volume) 6.8 g/dL 6.4-8.2 Serum or plasma albumin measurement (mass/volume) 3.5 g/dL 3.2-4.5 Lipid 1996 panel - 07/16/17 06:55 Serum or plasma triglyceride measurement (mass/volume) 48 mg/dL <150 Serum or plasma cholesterol measurement (mass/volume) 140 mg/dL < 200 Serum or plasma cholesterol in HDL measurement (mass/volume) 61 mg/ dL 40-60 Cholesterol in LDL [mass/volume] in serum or plasma by direct assay 65 mg/dL 1-129 Serum or plasma cholesterol in VLDL measurement (mass/volume) 10 mg/ dL 5-40 Automated blood complete blood count (hemogram) panel - 07/17/17 05:24 Blood leukocytes automated count (number/volume) 5.9 10*3/uL 4.3-11.0 Blood erythrocytes automated count (number/volume) 3.45 10*6/uL 4.35-5.85 Venous blood hemoglobin measurement (mass/volume) 10.6 g/dL 11.5-16.0 Blood hematocrit (volume fraction) 33 % 35-52 Automated erythrocyte mean corpuscular volume 97 [foz_us] 80-99 Automated erythrocyte mean corpuscular hemoglobin (mass per erythrocyte) 31 pg 25-34 Automated erythrocyte mean corpuscular hemoglobin concentration measurement ( mass/volume) 32 g/dL 32-36 Automated erythrocyte distribution width ratio 13.8 % 10.0-14.5 Automated blood platelet count (count/volume) 142 10*3/uL 130-400 Automated blood platelet mean volume measurement 10.7 [foz_us] 7.4-10.4 Comprehensive metabolic panel - 07/17/17 05:24 Serum or plasma sodium measurement (moles/volume) 135 mmol/L 135-145 Serum or plasma potassium measurement (moles/volume) 4.1 mmol/L 3.6-5.0 Serum or plasma chloride measurement (moles/volume) 107 mmol/L 98-107 Carbon dioxide 22 mmol/L 21-32 Serum or plasma anion gap determination (moles/volume) 6 mmol/L 5-14 Serum or plasma urea nitrogen measurement (mass/volume) 15 mg/dL 7-18 Serum or plasma creatinine measurement (mass/volume) 0.67 mg/dL 0.60-1.30 Serum or plasma urea nitrogen/creatinine mass ratio 22 NRG Serum or plasma creatinine measurement with calculation of estimated glomerular filtration rate > NRG Serum or plasma glucose measurement (mass/volume) 131 mg/dL 70-105 Serum or plasma calcium measurement (mass/volume) 8.4 mg/dL 8.5-10.1 Serum or plasma total bilirubin measurement (mass/volume) 1.8 mg/dL 0.1-1.0 Serum or plasma alkaline phosphatase measurement (enzymatic activity/volume) 133 U/L 40-136 Serum or plasma aspartate aminotransferase measurement (enzymatic activity/ volume) 179 U/L 5-34 Serum or plasma alanine aminotransferase measurement (enzymatic activity/volume ) 353 U/L 0-55 Serum or plasma protein measurement (mass/volume) 6.1 g/dL 6.4-8.2 Serum or plasma albumin measurement (mass/volume) 2.9 g/dL 3.2-4.5 Methicillin resistant Staphylococcus aureus (MRSA) screening culture - 12:10 Methicillin resistant Staphylococcus aureus (MRSA) screening culture NEG NRG Complete blood count (CBC) with automated white blood cell (WBC) differential - 09/04/17 13:45 Blood leukocytes automated count (number/volume) 5.2 10*3/uL 4.3-11.0 Blood erythrocytes automated count (number/volume) 3.64 10*6/uL 4.35-5.85 Venous blood hemoglobin measurement (mass/volume) 11.2 g/dL 11.5-16.0 Blood hematocrit (volume fraction) 35 % 35-52 Automated erythrocyte mean corpuscular volume 95 [foz_us] 80-99 Automated erythrocyte mean corpuscular hemoglobin (mass per erythrocyte) 31 pg 25-34 Automated erythrocyte mean corpuscular hemoglobin concentration measurement ( mass/volume) 32 g/dL 32-36 Automated erythrocyte distribution width ratio 14.4 % 10.0-14.5 Automated blood platelet count (count/volume) 181 10*3/uL 130-400 Automated blood platelet mean volume measurement 9.7 [foz_us] 7.4-10.4 Automated blood neutrophils/100 leukocytes 62 % 42-75 Automated blood lymphocytes/100 leukocytes 22 % 12-44 Blood monocytes/100 leukocytes 8 % 0-12 Automated blood eosinophils/100 leukocytes 8 % 0-10 Automated blood basophils/100 leukocytes 0 % 0-10 Blood neutrophils automated count (number/volume) 3.2 10*3 1.8-7.8 Blood lymphocytes automated count (number/volume) 1.1 10*3 1.0-4.0 Blood monocytes automated count (number/volume) 0.4 10*3 0.0-1.0 Automated eosinophil count 0.4 10*3/uL 0.0-0.3 Automated blood basophil count (count/volume) 0.0 10*3/uL 0.0-0.1 PT panel in platelet poor plasma by coagulation assay - 09/04/17 13:45 Prothrombin time (PT) in platelet poor plasma by coagulation assay 13.2 s 12.2-14.7 INR in platelet poor plasma or blood by coagulation assay 1.0 0.8-1.4 Encounters ACCT No. Visit Date/Time Discharge Status Pt. Type Provider Facility Loc./Unit Complaint [id number] 09/04/2017 11:49:00 09/04/2017 23:59:59 CLS Outpatient LELE JONES, YANCY Stovall [facility] SDC T10 COMPRESSION FRACTURE [id number] 09/03/2017 14:37:00 09/03/2017 23:59:59 CLS Outpatient LELE JONES, YANCY Stovall [facility] PREOP T10 COMPRESSION FRACTURE [id number] 09/03/2017 10:32:00 09/03/2017 23:59:59 CLS Outpatient NONA BLACKMAN APRN [facility] RAD THORACIC BACK PAIN, COMPRESISON FRACTURE [id number] 09/02/2017 12:48:00 09/02/2017 23:59:59 CLS Outpatient ALEX MICHEL [facility] RAD FALL LOW BACK PAIN PELVIC PAIN [id number] 09/02/2017 09:42:00 09/02/2017 13:00:00 DIS Outpatient MOSES LARIOS DO [facility] ENDO ABNORMAL MRI,CHRONIC DIARRHEA [id number] 08/27/2017 05:41:00 08/27/2017 14:32:00 DIS Outpatient MOSES LARIOS DO [facility] PREOP COLONOSCOPY [id number] 08/11/2017 10:59:00 08/11/2017 23:59:59 CLS Outpatient MOSES LARIOS DO [facility] RAD K91.89 NARROWING OF BILE DUCT [id number] 07/15/2017 09:55:00 07/17/2017 15:05:00 DIS Inpatient MOSES LARIOS DO [facility] 4TH CHOLYCYSTITIS [id number] 06/04/2017 17:34:00 06/04/2017 20:31:00 DIS Emergency MADDY BARDALES MD [facility] ER PAIN IN LEFT KNEE AFTER FALL ON 05/24 [id number] 05/24/2017 15:48:00 05/24/2017 17:47:00 DIS Emergency YAMILEX JONES, ES Gibson [facility] ER FALL [id number] 02/26/2017 14:31:00 02/26/2017 23:59:59 CLS Outpatient YAZAN KERR MD [facility] LAB CHRONIC DECREASED WBC [id number] 01/07/2017 15:47:00 01/07/2017 18:45:00 DIS Outpatient NONA BLACKMAN APRN [facility] DEHYDRATION, PALPITATIONS [id number] 09/16/2016 13:16:00 09/16/2016 23:59:59 CLS Outpatient PATRICIA LOUIS MD [facility] RAD OVARIAN CYST, BENIGN NEOPLASM OF LT OVARY [id number] 05/20/2016 14:53:00 05/20/2016 23:59:59 CLS Outpatient NONA BLACKMAN APRN [facility] RAD RIGHT HIP PAIN, LEFT PUBIS FRACTURE [id number] 05/20/2016 14:46:00 05/20/2016 23:59:59 CLS Outpatient YAZAN KERR MD [facility] OSTEOPOROSIS [id number] 03/29/2016 10:24:00 03/29/2016 12:40:00 DIS Emergency MADDY BARDALES MD [facility] ER RT HIP PAIN [id number] 03/25/2016 09:47:00 03/25/2016 23:59:59 CLS Outpatient PATRICIA LOUIS MD [facility] RAD OVARIAN CYST [id number] 02/29/2016 08:16:00 02/29/2016 23:59:59 CLS Outpatient NONA BLACKMAN APRN [facility] RAD LEFT FLANK PAIN [id number] 02/19/2016 12:06:00 02/19/2016 23:59:59 CLS Outpatient YAZAN KERR MD [facility] RAD LEFT FLANK PAIN, NEREYDA TENDERNESS [id number] 02/07/2015 09:48:00 02/07/2015 23:59:59 CLS Outpatient ALEX MICHEL [facility] RAD SCREENING [id number] 01/30/2015 00:10:00 01/30/2015 23:59:59 CLS Preadmit ANTONY DOHERYT MD [facility] LAB ACUTE BRONCHITIS [id number] 10/31/2014 15:45:00 01/29/2015 00:01:00 DIS Outpatient ANTONY DOHERTY MD [facility] LAB ACUTE BRONCHITIS [id number] 10/26/2014 16:34:00 10/26/2014 23:59:59 CLS Outpatient ANTONY DOHERTY MD [facility] RAD COUGH [id number] 10/17/2013 04:25:00 10/19/2013 09:20:00 DIS Outpatient PADMINI DE LA PAZ MD [facility] CATH CP [id number] 08/17/2013 07:03:00 08/17/2013 12:15:00 DIS Outpatient ES WARREN MD [facility] SDC NAUSEA/VOMITING; SCREENING [id number] 08/12/2013 07:27:00 08/12/2013 23:59:59 CLS Outpatient ES WARREN MD [facility] PREOP NAUSEA/VOMITING; SCREENING [id number] 08/10/2013 11:38:00 08/10/2013 23:59:59 CLS Outpatient ANTONY DOHERTY MD [facility] RAD ABD PAIN,WEIGHT LOSS [id number] 07/10/2013 11:40:00 07/10/2013 15:04:00 DIS Emergency GHANSHYAM SANDOVAL APRN [facility] ER FALL [id number] 06/20/2013 08:23:00 06/23/2013 16:25:00 DIS Inpatient ANTONY DOHERTY MD [facility] 4TH INTRACTABLE NAUSEA/ VOMITING HYPONATREMIA CHRONIC B [id number] 06/16/2013 14:40:00 06/16/2013 23:59:59 CLS Outpatient BRIAN MATHIS MD [facility] RAD STENOSIS [id number] 05/01/2013 17:36:00 05/01/2013 23:59:59 CLS Outpatient [id number] 03/29/2013 13:31:00 03/29/2013 23:59:59 CLS Outpatient [id number] 11/30/2017 10:53:00 ACT Emergency ES KAMINSKI MD [facility] ER COUGH/CHEST CONGESTION [id number] 04/30/2012 08:48:00 Document Registration [id number] 04/21/2012 10:47:00 Document Registration [id number] 04/11/2012 08:34:00 Document Registration [id number] 02/03/2011 21:17:00 Document Registration [id number] 10/16/2010 13:25:00 Document Registration [id number] 10/07/2010 07:26:00 Document Registration [id number] 07/26/2010 09:48:00 Document Registration [id number] 03/21/2010 09:51:00 Document Registration
--- NOTE | 2017-11-30 12:02 | ED Cough/URI ---
General Chief Complaint: Cough/Cold/Flu Symptoms Stated Complaint: COUGH/CHEST CONGESTION Nursing Triage Note: pt states cough and congestion x1 week History of Present Illness Date Seen by Provider: Nov 30, 2017 Time Seen by Provider: 12:00 Initial Comments 77-year-old female presents for productive cough and chest congestion. She has a long-standing history of COPD, she is on Breo inhaler. She is not taking any steroids at the present time. She uses oxygen 2L per nasal cannula at all times. She reports mild dyspnea with activity. She denies any recent fevers. She is under more stress than normal, as her daughter is admitted to the hospital for polyps and will be having surgery in the near future. Symptoms started on 11/27/17. Timing/Duration: getting worse Severity/Quality: productive cough Prior Episodes/Possible Cause: occasional episodes Modifying Factors: Improves With Coughing, Improves With Oxygen, Improves With Rest Associated Symptoms: cough, muscle aches, shortness of breath Allergies and Home Medications Allergies Coded Allergies: azithromycin (Verified Allergy, Unknown, 09/02/17) Uncoded Allergies: ERYTHROMYCIN (Allergy, Unknown, 01/07/17) Home Medications Albuterol Sulfate 1 Puff Puff, 2 PUFF IH Q4H 1 PUFF = 90 MCG Prescribed by: KENROY OSEI on 11/30/171314 Alprazolam 1 Mg Tablet, 1 MG PO TID, (Reported) Aspirin 81 Mg Tablet.dr, 81 MG PO DAILY, (Reported) Cefuroxime Axetil 500 Mg Tablet, 500 MG PO BID Prescribed by: KENROY OESI on 11/30/171314 Cholecalciferol (Vitamin D3) 2,000 Unit Capsule, 2,000 UNIT PO DAILY, (Reported) Escitalopram Oxalate 10 Mg Tablet, 10 MG PO DAILY, (Reported) Fluticasone/Vilanterol 1 Each Blst.w.dev, 1 PUFF IH DAILY, (Reported) Loratadine 10 Mg Tablet, 10 MG PO BID, (Reported) Losartan Potassium 100 Mg Tablet, 100 MG PO HS, (Reported) Metoprolol Tartrate 50 Mg Tablet, 25 MG PO BID, (Reported) TAKES 1/2 OF A (50 MG) TABLET Omeprazole 20 Mg Capsule.dr, 20 MG PO BID, (Reported) Prednisone 20 Mg Tab, 20 MG PO DAILY Prescribed by: KENROY OSEI on 11/30/175 Patient Home Medication List Home Medication List Reviewed: Yes Constitutional: see HPI, malaise, weakness EENTM: see HPI, no symptoms reported Respiratory: see HPI, cough, phlegm, short of breath Cardiovascular: no symptoms reported, see HPI Gastrointestinal: no symptoms reported, see HPI All Other Systems Reviewed Negative Unless Noted: Yes Past Cewgswr-Rdhflu-Uovqfk Hx Patient Social History Type Used: Cigarettes Former Smoker, Quit: Jul 15, 1994 2nd Hand Smoke Exposure: No Recent Foreign Travel: No Contact w/Someone Who Travel: No Recent Infectious Disease Expo: No Recent Hopitalizations: No Immunizations Up To Date Tetanus Booster (TDap): More than 5yrs Date of Pneumonia Vaccine: Sep 30, 2016 Date of Influenza Vaccine: Jul 17, 2017 Seasonal Allergies Seasonal Allergies: No Surgeries History of Surgeries: Yes (HEMORRHOIDECTOMY,hiatal hernia repairx2, ) Surgeries: Bladder Surgery, Gallbladder, Hysterectomy, Tonsillectomy Respiratory History of Respiratory Disorde: Yes (COPD) Respiratory Disorders: Asthma, COPD, Emphysema Currently Using CPAP: No Currently Using BIPAP: No Cardiovascular History of Cardiac Disorders: Yes Cardiac Disorders: Hypertension Neurological History of Neurological Disord: No Reproductive System Hx Reproductive Disorders: No Sexually Transmitted Disease: No HIV/AIDS: No Female 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 Genitourinary History of Genitourinary Disor: No Gastrointestinal History of Gastrointestinal Di: Yes Gastrointestinal Disorders: Gastroesophageal Reflux, Hemorrhoids, Hiatal Hernia Musculoskeletal History of Musculoskeletal Dis: Yes (ARTHRITIS) Musculoskeletal Disorders: Arthritis, Chronic Back Pain Endocrine History of Endocrine Disorders: No HEENT Loss of Vision: Denies Hearing Impairment: Denies Cancer History of Cancer: No Psychosocial History of Psychiatric Problem: Yes Behavioral Health Disorders: Anxiety, Depression Integumentary History of Skin or Integumenta: No Blood Transfusions History of Blood Disorders: No Reviewed Nursing Assessment Reviewed/Agree w Nursing PMH: Yes Family Medical History Significant Family History: Heart Disease, Cancer, Diabetes, Hypertension, Other Conditions/Hx Family Medial History: Abdominal aortic aneurysm 03 FATHER Alcoholism 03 FATHER Cancer 03 FATHER Cataract 03 MOTHER Chest pain 03 FATHER Congestive heart failure 03 FATHER Family history: Cardiovascular disease 03 FATHER 03 MOTHER Family history: Coronary thrombosis 03 MOTHER Family history: Diabetes mellitus 03 MOTHER Family history: Glaucoma 03 MOTHER Family history: Hypertension 03 MOTHER Family history: Osteoporosis 03 MOTHER Headache 03 FATHER 03 MOTHER 09 BROTHER 09 BROTHER 09 SISTER Heart disease 03 FATHER History of - respiratory disease 03 FATHER Kidney disease 03 MOTHER Myocardial infarction 03 FATHER Stroke Visual impairment 03 FATHER 03 MOTHER No Family History of: Jase's disease Aphasia Cancer of colon Congenital heart disease Cystic fibrosis Dementia Dysphagia Family history: Allergy Family history: Alzheimer's disease Family history: Arthritis Family history: Asthma Family history: Breast disease Family history: Gastrointestinal disease Family history: Thyroid disorder Hearing loss Hereditary disease History of - anemia History of - disorder History of drug abuse Human immunodeficiency virus (HIV) seropositivity Hypercholesterolemia Infertile Malignant neoplasm of lung Parkinson's disease Prostate cancer Psychotic disorder Seizure disorder Tuberculosis Physical Exam Vital Signs Vital Signs - First Documented 11/30/17 11/30/17 11:10 11:27 Temp 97.2 Pulse 66 Resp 20 B/P (MAP) 141/97 (112) Pulse Ox 97 O2 Delivery Room Air O2 Flow Rate 3.00 Capillary Refill : Less Than 3 Seconds General Appearance: WD/WN, no apparent distress Eyes: Bilateral Eye Normal Inspection, Bilateral Eye PERRL, Bilateral Eye EOMI HEENT: PERRL/EOMI, normal ENT inspection, TMs normal, pharynx normal Neck: non-tender, full range of motion, supple, normal inspection, No lymphadenopathy (R), No lymphadenopathy (L) Respiratory: chest non-tender, no respiratory distress, no accessory muscle use , decreased breath sounds, wheezing, expiration Cardiovascular: normal peripheral pulses, regular rate, rhythm, no edema, no murmur Gastrointestinal: normal bowel sounds, non tender, soft Extremities: normal range of motion, non-tender, normal inspection, normal capillary refill, other (skin turgor less than 2 seconds) Neurologic/Psychiatric: no motor/sensory deficits, alert, normal mood/affect, oriented x 3 Skin: normal color, warm/dry Progress/Results/Core Measures Suspected Sepsis Recent Fever Within 48 Hours: No Infection Criteria Present: None New/Unexplained Altered Menta: No Sepsis Screen: No Definite Risk Sepsis Diagnosis: SIRS Temperature:97.2 Pulse: 66 Respiratory Rate: 20 Laboratory Tests 11/30/17 12:30: White Blood Count 3.8L Blood Pressure 141 /97 Mean: 112 Laboratory Tests 11/30/17 12:30: Creatinine 0.71, Platelet Count 150, Total Bilirubin 0.4 Results/Orders Lab Results Laboratory Tests Test 11/30/17 12:30 Range/Units White Blood Count 3.8 L 4.3-11.0 10^3/uL Red Blood Count 4.10 L 4.35-5.85 10^6/uL Hemoglobin 12.8 11.5-16.0 G/DL Hematocrit 39 35-52 % Mean Corpuscular Volume 94 80-99 FL Mean Corpuscular Hemoglobin 31 25-34 PG Mean Corpuscular Hemoglobin Concent 33 32-36 G/DL Red Cell Distribution Width 13.6 10.0-14.5 % Platelet Count 150 130-400 10^3/uL Mean Platelet Volume 9.7 7.4-10.4 FL Neutrophils (%) (Auto) 60 42-75 % Lymphocytes (%) (Auto) 23 12-44 % Monocytes (%) (Auto) 8 0-12 % Eosinophils (%) (Auto) 10 0-10 % Basophils (%) (Auto) 0 0-10 % Neutrophils # (Auto) 2.3 1.8-7.8 X 10^3 Lymphocytes # (Auto) 0.9 L 1.0-4.0 X 10^3 Monocytes # (Auto) 0.3 0.0-1.0 X 10^3 Eosinophils # (Auto) 0.4 H 0.0-0.3 10^3/uL Basophils # (Auto) 0.0 0.0-0.1 10^3/uL Sodium Level 133 L 135-145 MMOL/L Potassium Level 4.3 3.6-5.0 MMOL/L Chloride Level 105 98-107 MMOL/L Carbon Dioxide Level 19 L 21-32 MMOL/L Anion Gap 9 5-14 MMOL/L Blood Urea Nitrogen 11 7-18 MG/DL Creatinine 0.71 0.60-1.30 MG/DL Estimat Glomerular Filtration Rate > 60 BUN/Creatinine Ratio 15 Glucose Level 91 70-105 MG/DL Calcium Level 8.4 L 8.5-10.1 MG/DL Total Bilirubin 0.4 0.1-1.0 MG/DL Aspartate Amino Transf (AST/SGOT) 19 5-34 U/L Alanine Aminotransferase (ALT/SGPT) 13 0-55 U/L Alkaline Phosphatase 81 40-136 U/L Total Protein 7.0 6.4-8.2 GM/DL Albumin 3.4 3.2-4.5 GM/DL My Orders Orders - KENROY OSEIP Chest Pa/Lat (2 View) (11/30/17 12:07) Cbc With Automated Diff (11/30/17 12:07) Comprehensive Metabolic Panel (11/30/17 12:07) Rt Request For Service (11/30/17 12:08) Albuterol/Ipra Inhalation Soln (Duoneb I (11/30/17 12:15) Svn Sm Volume Nebulizer Rt-Rfs (11/30/17 12:09) Sputum Culture (11/30/17 12:12) Medications Given in ED Current Medications Medications Dose Ordered Sig/Makenna Route Start Time Stop Time Status Last Admin Dose Admin Albuterol/ Ipratropium 3 ml ONCE ONCE INH 11/30/17 12:15 11/30/17 12:16 DC 11/30/17 12:28 3 ML Vital Signs/I&O Vital Sign - Last 12Hours 11/30/17 11/30/17 11/30/17 11/30/17 11:10 11:27 12:28 13:33 Temp 97.2 97.9 Pulse 66 70 Resp 20 20 B/P (MAP) 141/97 (112) 147/97 Pulse Ox 97 99 96 O2 Delivery Room Air Nasal Cannula Nasal Cannula Nasal Cannula O2 Flow Rate 3.00 2.00 3.00 Capillary Refill : Less Than 3 Seconds Blood Pressure Mean: 112 Progress Note : Time: 12:00 Progress Note Initial evaluation completed, recommended DuoNeb breathing treatment, chest x- ray, CBC and CMP. Will continue to monitor patient 1245 patient able to produce a sputum sample, it will be sent for culture. She reports improvement in the dyspnea since having the breathing treatment. Discussed her chest x-ray. 1300 discharge planning and return precautions reviewed with the patient, all questions answered. Diagnostic Imaging Diagonstic Imaging: Xray Plain Films/CT/US/NM/MRI: chest Comments NAME: JUSTINE RAMIREZ [facility] REC#: [id number] PT STATUS: DEP ER : [id number] PHYSICIAN: KENROY OSEI ADMIT DATE: 11/30/17/ER Draft Date of Exam:11/30/17 CHEST PA/LAT (2 VIEW) INDICATION: Cough and wheezing x3 days. COMPARISON: 07/15/2017. FINDINGS: There is obstructive lung disease bilaterally. The lungs are free of infiltrate. No evidence of segmental atelectasis. The heart is mildly enlarged. There is no evidence of pulmonary edema. No pneumothorax or pleural effusion. IMPRESSION: Obstructive lung disease with increasing air trapping having developed since previous exam. Dictated on workstation # [id number] Dict: 11/30/17 1230 Trans: 11/30/17 1237 [id number] Interpreted by: MARY PEREZ MD Electronically signed by: Departure Impression Impression: Primary Impression: Cough Additional Impressions: Bronchitis COPD without exacerbation Disposition: HOME, SELF-CARE Condition: Improved Departure-Patient Inst. Decision time for Depature: 13:00 Referrals: YAZAN BURDEN MD (PCP) Primary Care Physician Patient Instructions: Acute Bronchitis, Adult (DC), Cough, Adult (DC) Add. Discharge Instructions: Continue to take home medication as prescribed. All up with Dr. Burden in 2-3 days, sooner if symptoms are not improving. Continue to use oxygen at all times. Increase water intake. Use [id number] Mucinex one tablet twice daily with full glass of water. Take Medication as prescribed. May use Tylenol or ibuprofen, alternating every 4 hours for fever or pain. Return to emergency department if difficulty breathing, fever greater than 101 , new problems or concerns. All discharge instructions reviewed with patient and/or family. Voiced understanding. Scripts Albuterol Sulfate (VENTOLIN HFA) 1 Puff Puff 2 PUFF IH Q4H for 7 Days, #1 EACH 0 Refills 1 PUFF = 90 MCG Prov: KENROY OSEI 11/30/17 Cefuroxime Axetil (Cefuroxime) 500 Mg Tablet 500 MG PO BID, #10 TAB 0 Refills Prov: KENROY OSEI 11/30/17 Prednisone (Prednisone) 20 Mg Tab 20 MG PO DAILY, #4 TAB 0 Refills Prov: KENROY OSEI 11/30/17 Copy Copies To 1: YAZAN BURDEN MD, AMY ARNP Nov 30, 2017 12:02
[2017-11-30] MEDS ORDERED: RT-ALBUTEROL/IPRATROPIUM 3 ML (DUONEB) VIAL INH ONE (12:15)
--- NOTE | 2017-11-30 12:38 | Diagnostic Imaging Report ---
INDICATION: Cough and wheezing x3 days. COMPARISON: 07/15/2017. FINDINGS: There is obstructive lung disease bilaterally. The lungs are free of infiltrate. No evidence of segmental atelectasis. The heart is mildly enlarged. There is no evidence of pulmonary edema. No pneumothorax or pleural effusion. IMPRESSION: Obstructive lung disease with increasing air trapping having developed since previous exam. Dictated by: Dictated on workstation # [id number]
[2017-11-30 12:39] LABS: BASOPHILS % (AUTO) 0 % (0-10); EOSINOPHILS # (AUTO) 0.4 10^3/uL (0.0-0.3); EOSINOPHILS % (AUTO) 10 % (0-10); HEMATOCRIT 39 % (35-52); HEMOGLOBIN 12.8 G/DL (11.5-16.0); LYMPHOCYTES # (AUTO) 0.9 X 10^3 (1.0-4.0); LYMPHOCYTES % (AUTO) 23 % (12-44); MEAN CORPUSCULAR HEMOGLOBIN 31 PG (25-34); MEAN CORPUSCULAR HGB CONC 33 G/DL (32-36); MEAN CORPUSCULAR VOLUME 94 FL (80-99); MEAN PLATELET VOLUME 9.7 FL (7.4-10.4); MONOCYTES # (AUTO) 0.3 X 10^3 (0.0-1.0); MONOCYTES % (AUTO) 8 % (0-12); NEUTROPHILS # (AUTO) 2.3 X 10^3 (1.8-7.8); NEUTROPHILS % (AUTO) 60 % (42-75); PLATELET COUNT 150 10^3/uL (130-400); RED CELL DISTRIBUTION WIDTH 13.6 % (10.0-14.5); WHITE BLOOD COUNT 3.8 10^3/uL (4.3-11.0)
[2017-11-30 12:58] LABS: ALANINE AMINOTRANSFERASE 13 U/L (0-55); ALBUMIN 3.4 GM/DL (3.2-4.5); ALKALINE PHOSPHATASE 81 U/L (40-136); BILIRUBIN,TOTAL 0.4 MG/DL (0.1-1.0); BUN/CREATININE RATIO 15; CALCIUM 8.4 MG/DL (8.5-10.1); CARBON DIOXIDE 19 MMOL/L (21-32); CHLORIDE 105 MMOL/L (98-107); CREATININE SERUM 0.71 MG/DL (0.60-1.30); GFR ESTIMATED > 60; GLUCOSE 91 MG/DL (70-105); POTASSIUM 4.3 MMOL/L (3.6-5.0); SODIUM 133 MMOL/L (135-145)
[2017-11-30] MEDS ORDERED: RT-ALBUINH IH ×2 (13:06→13:15)
[2017-11-30] MEDS ORDERED: CEFU500T63 PO ×2 (13:06→13:15)
[2017-11-30] MEDS ORDERED: PRD20T PO ×2 (13:07→13:15)
[2017-11-30 13:33] VITALS: BP 147/97
== END 2017-11-30 10:54 | disposition home or self-care (01) ==
LOC: EDUNIT# 10:52 → ER 10:53
DX: J44.1 Chronic obstructive pulmonary disease with (acute) exacerbation (principal); I10 Essential (primary) hypertension; K21.9 Gastro-esophageal reflux disease without esophagitis; F41.9 Anxiety disorder, unspecified; F32.9 Major depressive disorder, single episode, unspecified; Z88.1 Allergy status to other antibiotic agents; Z82.49 Family history of ischemic heart disease and other diseases of the circulatory system; Z79.82 Long term (current) use of aspirin; Z79.52 Long term (current) use of systemic steroids; Z87.891 Personal history of nicotine dependence; Z87.19 Personal history of other diseases of the digestive system; Z90.89 Acquired absence of other organs; Z90.710 Acquired absence of both cervix and uterus
CPT/HCPCS: 36415; 71046; 80053; 85025; 87070; 87205; 94640

== ENCOUNTER 2017-12-02 00:06 | Emergency (ER) | payer MEDICARE, OTHER ==
[~2017-12-02] VITALS: Ht 152.4 cm; Wt 59.0 kg
[~2017-12-02 00:06] MED LIST changes: +CEFU500T63 PO; +PRD20T PO; +RT-ALBUINH IH
[2017-12-02] MEDS ORDERED: methylPREDNISolone 125 MG (Solu-MEDROL) VIAL IV STA (00:20)
--- OUTSIDE RECORDS SUMMARY | 2017-12-02 00:24 | XMS REPORT | Continuity of Care Document ---
Author Author [facility] Organization [facility] Address Unknown Phone Unavailable Allergies Active Description Code Type Severity Reaction Onset Reported/Identified Relationship to Patient Clinical Status Yes No Known Drug Allergies [id number] Drug Allergy Unknown N/A 10/07/2010 Yes ERYTHROMYCIN ERYTHROMYCIN Unknown N/A 01/07/2017 Yes azithromycin [id number] Drug Allergy Unknown N/A 09/02/2017 Medications There [...] MD Ot 722.52 LUMB/LUMBOSAC DISC DEGEN 06/23/2013 ANOTNY DOHERTY MD Ot 726.5 ENTHESOPATHY OF HIP [...] LOWER LEG INJURY NOS 07/10/2013 GHANSHYAM SANDOVAL REFERENCE DATA EXPERT Ot E000.8 OTHER EXTERNAL CAUSE STATUS 07/10/2013 [...] PAZ MD Ot 414.01 CORONARY ATHEROSCLEROSIS OF [place] CORON 10/19/2013 PADMINI DE LA PAZ MD [...] BESSY JONES, ANTONY M Ot 786.2 03/10/2015 LAEX MICHEL Ot V76.12 03/20/2015 BESSY JONES, ANTONY M [...] 466.0 ACUTE BRONCHITIS 02/29/2016 ANAND ALEX Paty BUTCHER APPRENTICE Ot V76.12 OTH SCREEN MAMMO-MALIGN NEOPLASM OF LEANN 02/29/2016 USHA JONES, YAZAN Farrell Ot R10.84 GENERALIZED ABDOMINAL PAIN 02/29/2016 NONA BLACKMAN REFERENCE DATA EXPERT Ot Z12.31 ENCNTR SCREEN MAMMOGRAM FOR MALIGNANT NE 03/01/2016 NONA BLACKMAN REFERENCE DATA EXPERT Ot Z12.31 ENCNTR SCREEN MAMMOGRAM FOR MALIGNANT NE 03/01/2016 NONA BLACKMAN REFERENCE DATA EXPERT Ot R10.84 GENERALIZED ABDOMINAL PAIN 03/01/2016 NONA BLACKMAN REFERENCE DATA EXPERT Ot Z12.31 ENCNTR SCREEN MAMMOGRAM FOR MALIGNANT NE 03/14/2016 USHA JONES, YAZAN Farrell Ot R10.84 GENERALIZED ABDOMINAL PAIN 03/23/2016 NONA BLACKMAN REFERENCE DATA EXPERT Ot R10.84 GENERALIZED ABDOMINAL PAIN 03/23/2016 NONA BLACKMAN REFERENCE DATA EXPERT Ot Z12.31 ENCNTR SCREEN MAMMOGRAM FOR MALIGNANT [...] BARDALES MD Ot Y92.[address] IN [facility] NON-INSTIT[facility] (PRIVATE 03/29/2016 MADDY BARDALES MD Ot Y99.8 OTHER EXTERNAL CAUSE STATUS 04/03/2016 MADDY BARDALES MD Ot S09.90XA UNSPECIFIED INJURY OF HEAD, INITIAL ENCO 04/03/2016 MADDY BARDALES MD Ot S32.592A OTH FRACTURE OF LEFT PUBIS, INIT ENCNTR 04/03/2016 CATIA JNOES, MADDY Espinoza Ot W01.0XXA FALL SAME LEV FROM SLIP/TRIP W/O STRIKE 04/03/2016 MADDY BARDALES MD Ot Y92.[address] IN [facility] NON-INSTIT[facility] (PRIVATE 04/03/2016 MADDY BARDALES MD Ot Y99.8 OTHER EXTERNAL CAUSE STATUS 04/18/2016 MISSY JONES, PATRICIA Sandy Ot N83.20 UNSPECIFIED OVARIAN CYSTS 05/22/2016 NONA BLACKMAN REFERENCE DATA EXPERT Ot S32.592D OTH FRACTURE OF LEFT PUBIS, SUBS FOR FX 06/12/2016 USHA JONES, YAZAN Farrell Ot M81.0 AGE-RELATED OSTEOPOROSIS W/O CURRENT PAT 06/12/2016 NONA BLACKMAN REFERENCE DATA EXPERT Ot S32.592D OTH FRACTURE OF LEFT PUBIS, [...] GENERALIZED ABDOMINAL PAIN 09/16/2016 YEHUDA, NONA M REFERENCE DATA EXPERT Ot R10.84 GENERALIZED ABDOMINAL PAIN 09/16/2016 YEHUDA NONA M REFERENCE DATA EXPERT Ot Z12.31 ENCNTR SCREEN MAMMOGRAM FOR MALIGNANT NE 09/16/2016 MISSY JONES, PATRICIA N Ot N83.20 UNSPECIFIED OVARIAN CYSTS 09/16/2016 USHA JONES, YAZAN Farrell Ot M81.0 AGE-RELATED OSTEOPOROSIS W/O CURRENT PAT 09/16/2016 NONA BLACKMAN REFERENCE DATA EXPERT Ot S32.592D OTH FRACTURE OF LEFT PUBIS, SUBS FOR FX 09/18/2016 MISSY JONES, PATRICIA N Ot D27.1 BENIGN NEOPLASM OF LEFT OVARY 10/11/2016 MISSY JONES, PATRICIA N Ot D27.1 BENIGN NEOPLASM OF LEFT OVARY 01/07/2017 NONA BLACKMAN REFERENCE DATA EXPERT Ot E86.0 DEHYDRATION 01/07/2017 NONA BLACKMAN REFERENCE DATA EXPERT Ot R00.1 BRADYCARDIA, UNSPECIFIED 01/07/2017 BESSY JONES, ANTONY Newman Ot 466.0 ACUTE BRONCHITIS 01/09/2017 NONA BLACKMAN REFERENCE DATA EXPERT Ot E86.0 DEHYDRATION 01/09/2017 NONA BLACKMAN REFERENCE DATA EXPERT Ot R00.1 BRADYCARDIA, UNSPECIFIED 02/27/2017 YAZAN KERR [...] ISCHEM HEART DIS AND OTH DI 05/24/2017 YAIMLEX JONES, ES Gibson Ot Z87.19 PERSONAL HISTORY [...] SAME LEVEL, UNSPECIFIED, INITIAL 05/26/2017 YAMILEX JONES, ES Gibson Ot Y92.511 RESTAURANT [...] ABSENCE OF BOTH CERVIX AND UTER 05/26/2017 YAMILEX JONES ES Gibson Ot Z90.89 ACQUIRED ABSENCE OF OTHER ORGANS 05/27/2017 YAMILEX JONES, ES Gibson Ot F41.9 ANXIETY DISORDER, UNSPECIFIED 05/27/2017 [...] INJURY OF HEAD, INITIAL ENCO 05/27/2017 YAMILEX JOENS ES Arthur Ot S80.02XA CONTUSION OF LEFT KNEE, INITIAL ENCOUNTE 05/27/2017 YAMILEX JONSE, ES Gibson Ot W18.30XA FALL ON SAME [...] ABSENCE OF BOTH CERVIX AND UTER 05/27/2017 AYMILEX JONES, ES Arthur Ot Z90.89 ACQUIRED ABSENCE [...] ENCOUNTER 06/04/2017 MADDY BARDALES MD Ot 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 06/04/2017 MADDY BARDALES [...] DO Ot I25.10 ATHSCL HEART DISEASE OF [place] CORONARY 09/02/2017 MOSES LARIOS DO Ot J44.9 CHRONIC OBSTRUCTIVE PULMONARY DISEASE, U 09/02/2017 MOSES LARIOS DO Ot K21.9 GASTRO-ESOPHAGEAL REFLUX DISEASE WITHOUT 09/02/2017 MOSES LARIOS DO Ot K57.30 DVRTCLOS OF LG INT W/O PERFORATION OR AB 09/02/2017 MOSES LARIOS DO Ot M81.0 AGE-RELATED OSTEOPOROSIS W/O CURRENT PAT 09/02/2017 MOSES LARIOS DO Ot R19.7 DIARRHEA, UNSPECIFIED 09/02/2017 MOSES LARIOS DO Ot Z79.899 OTHER CUSTODIAL (CURRENT) DRUG THERAPY 09/02/2017 MOSES LARIOS DO [...] DO Ot I25.10 ATHSCL HEART DISEASE OF [place] CORONARY 09/08/2017 MOSES LARIOS DO Ot J44.9 CHRONIC OBSTRUCTIVE PULMONARY DISEASE, U 09/08/2017 MOSES LARIOS DO Ot K21.9 GASTRO-ESOPHAGEAL REFLUX DISEASE WITHOUT 09/08/2017 MOSES LARIOS DO Ot K57.30 DVRTCLOS OF LG INT W/O PERFORATION OR AB 09/08/2017 MOSES LARIOS DO Ot M81.0 AGE-RELATED OSTEOPOROSIS W/O CURRENT PAT 09/08/2017 MOSES LARIOS DO Ot R19.7 DIARRHEA, UNSPECIFIED 09/08/2017 MOSES LARIOS DO Ot Z79.899 OTHER ELECTRONICS TEACHER (CURRENT) DRUG THERAPY 09/08/2017 MOSES LARIOS DO [...] 09/08/2017 LELE JONES YANCY Z Ot 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 09/08/2017 LELE JONES YANCY Z Ot Z79.899 OTHER ELECTRONICS TEACHER (CURRENT) DRUG THERAPY 09/08/2017 LELE JONES YANCY [...] 09/08/2017 LELE JONES YANCY Z Ot Z79.82 CUSTODIAL (CURRENT) USE OF ASPIRIN 09/08/2017 LELE JONES YANCY Z Ot Z79.899 OTHER CUSTODIAL (CURRENT) DRUG THERAPY 09/08/2017 LELE JONES YANCY Z Ot Z87.891 PERSONAL HISTORY OF NICOTINE DEPENDENCE 09/24/2017 ALEX MICHEL BUTCHER APPRENTICE Ot M43.16 SPONDYLOLISTHESIS, LUMBAR REGION 09/24/2017 ALEX MICHEL BUTCHER APPRENTICE Ot 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, UNSPECIFIED 09/24/2017 ALEX MICHEL BUTCHER APPRENTICE Ot S22.070A WEDGE COMPRESSION FRACTURE OF T9-T10 ADA 09/24/2017 ALEX MICHEL BUTCHER APPRENTICE Ot W19.XXXA UNSPECIFIED FALL, INITIAL ENCOUNTER 09/24/2017 [...] M81.0 AGE-RELATED OSTEOPOROSIS W/O CURRENT PAT 10/03/2017 LEEL JONES YANCY Z Ot S22.079A UNSP FRACTURE OF T9-T10 VERTEBRA, INIT F 10/03/2017 LELE JONES YANCY Z Ot W19.XXXA UNSPECIFIED FALL, INITIAL ENCOUNTER 10/03/2017 LELE JONES YANCY Z Ot Z79.82 CUSTODIAL (CURRENT) USE OF ASPIRIN 10/03/2017 LELE JONES YANCY Z Ot Z79.899 OTHER CUSTODIAL (CURRENT) DRUG THERAPY 10/03/2017 LELE JONES YANCY Z Ot Z87.891 PERSONAL HISTORY OF NICOTINE DEPENDENCE 10/06/2017 TERI ROYAL MDIQ Z Ot F32.9 MAJOR DEPRESSIVE DISORDER, SINGLE EPISOD 10/06/2017 LELE JONES YANCY Z Ot F41.9 ANXIETY DISORDER, UNSPECIFIED 10/06/2017 LELE JONES YANCY Z Ot I10 ESSENTIAL (PRIMARY) HYPERTENSION 10/06/2017 LELE JONES, YANCY Z Ot I71.2 THORACIC AORTIC ANEURYSM, WITHOUT RUPTUR 10/06/2017 LELE JONES YANCY Z Ot J44.9 CHRONIC OBSTRUCTIVE PULMONARY DISEASE, U 10/06/2017 LELE JONES YANCY Z Ot K21.9 GASTRO-ESOPHAGEAL REFLUX DISEASE WITHOUT 10/06/2017 LELE JONES, AYNCY Z Ot K58.9 IRRITABLE BOWEL SYNDROME WITHOUT DIARRHE 10/06/2017 LELE JONES YANCY Z Ot M81.0 AGE-RELATED OSTEOPOROSIS W/O CURRENT PAT 10/06/2017 LELE JONES YANCY Z Ot S22.079A UNSP FRACTURE OF T9-T10 VERTEBRA, INIT F 10/06/2017 LELE JONES YANCY Z Ot W19.XXXA UNSPECIFIED FALL, INITIAL ENCOUNTER 10/06/2017 LELE JONES YANCY Z Ot 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 10/06/2017 LELE JONES YANCY Z Ot Z79.899 OTHER ELECTRONICS TEACHER (CURRENT) DRUG THERAPY 10/06/2017 LELE JONES YANCY [...] 10/16/2017 LELE JONES YANCY Z Ot 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 10/16/2017 LELE JONES YANCY Z Ot Z79.899 OTHER ELECTRONICS TEACHER (CURRENT) DRUG THERAPY 10/16/2017 LELE JONES, YANCY Z Ot Z87.891 PERSONAL HISTORY OF NICOTINE DEPENDENCE Procedures Code Description Performed By Performed On 83.96 INJECTION INTO BURSA 06/23/2013 [id number] RELEASE OMENTUM, PERCUTANEOUS ENDOSCOPIC 07/16/2017 [id number] RESECTION OF GALLBLADDER, PERCUTANEOUS E 07/16/2017 [id number] FLUOROSCOPY OF BILE DUCTS USING LOW OSMO [...] or blood by coagulation assay 1.0 0.8-1.4 Complete blood count (CBC) with automated white blood cell (WBC) differential - 11/30/17 12:30 Blood leukocytes automated count (number/volume) 3.8 10*3/uL 4.3-11.0 Blood erythrocytes automated count (number/volume) 4.10 10*6/uL 4.35-5.85 Venous blood hemoglobin measurement (mass/volume) 12.8 g/dL 11.5-16.0 Blood hematocrit (volume fraction) 39 % 35-52 Automated erythrocyte mean corpuscular volume 94 [foz_us] 80-99 Automated erythrocyte mean corpuscular hemoglobin (mass per erythrocyte) 31 pg 25-34 Automated erythrocyte mean corpuscular hemoglobin concentration measurement ( mass/volume) 33 g/dL 32-36 Automated erythrocyte distribution width ratio 13.6 % 10.0-14.5 Automated blood platelet count (count/volume) 150 10*3/uL 130-400 Automated blood platelet mean volume measurement 9.7 [foz_us] 7.4-10.4 Automated blood neutrophils/100 leukocytes 60 % 42-75 Automated blood lymphocytes/100 leukocytes 23 % 12-44 Blood monocytes/100 leukocytes 8 % 0-12 Automated blood eosinophils/100 leukocytes 10 % 0-10 Automated blood basophils/100 leukocytes 0 % 0-10 Blood neutrophils automated count (number/volume) 2.3 10*3 1.8-7.8 Blood lymphocytes automated count (number/volume) 0.9 10*3 1.0-4.0 Blood monocytes automated count (number/volume) 0.3 10*3 0.0-1.0 Automated eosinophil count 0.4 10*3/uL 0.0-0.3 Automated blood basophil count (count/volume) 0.0 10*3/uL 0.0-0.1 Comprehensive metabolic panel - 11/30/17 12:30 Serum or plasma sodium measurement (moles/volume) 133 mmol/L 135-145 Serum or plasma potassium measurement (moles/volume) 4.3 mmol/L 3.6-5.0 Serum or plasma chloride measurement (moles/volume) 105 mmol/L 98-107 Carbon dioxide 19 mmol/L 21-32 Serum or plasma anion gap determination (moles/volume) 9 mmol/L 5-14 Serum or plasma urea nitrogen measurement (mass/volume) 11 mg/dL 7-18 Serum or plasma creatinine measurement (mass/volume) 0.71 mg/dL 0.60-1.30 Serum or plasma urea nitrogen/creatinine mass ratio 15 NRG Serum or plasma creatinine measurement with calculation of estimated glomerular filtration rate > NRG Serum or plasma glucose measurement (mass/volume) 91 mg/dL 70-105 Serum or plasma calcium measurement (mass/volume) 8.4 mg/dL 8.5-10.1 Serum or plasma total bilirubin measurement (mass/volume) 0.4 mg/dL 0.1-1.0 Serum or plasma alkaline phosphatase measurement (enzymatic activity/volume) 81 U/L 40-136 Serum or plasma aspartate aminotransferase measurement (enzymatic activity/ volume) 19 U/L 5-34 Serum or plasma alanine aminotransferase measurement (enzymatic activity/volume ) 13 U/L 0-55 Serum or plasma protein measurement (mass/volume) 7.0 g/dL 6.4-8.2 Serum or plasma albumin measurement (mass/volume) 3.4 g/dL 3.2-4.5 Sputum Gram stain - 11/30/17 13:02 Sputum Gram stain Moderate to numerous WBC's, mixed bacterial betty and yeast NRG Bacterial sputum culture - 11/30/17 13:02 Bacterial sputum culture NORMAL NRG Encounters ACCT No. Visit Date/Time Discharge Status Pt. Type Provider Facility Loc./Unit Complaint [id number] 11/30/2017 10:53:00 11/30/2017 10:54:00 DIS Emergency KENROY OSEI [facility] ER COUGH/CHEST CONGESTION [id number] 09/04/2017 11:49:00 09/04/2017 23:59:59 CLS Outpatient YANCY ROYAL MD [facility] SDC T10 COMPRESSION FRACTURE [id number] 09/03/2017 14:37:00 09/03/2017 23:59:59 CLS Outpatient YANCY ROYAL MD [facility] PREOP T10 COMPRESSION FRACTURE [id number] 09/03/2017 10:32:00 09/03/2017 23:59:59 CLS Outpatient NONA BLACKMAN APRN [facility] RAD THORACIC BACK PAIN, COMPRESISON FRACTURE [id number] 09/02/2017 12:48:00 09/02/2017 23:59:59 CLS Outpatient ALEX MICHEL [facility] RAD FALL LOW BACK PAIN PELVIC PAIN [id number] 09/02/2017 09:42:00 09/02/2017 13:00:00 DIS Outpatient MOSES LARIOS DO [facility] ENDO ABNORMAL MRI,CHRONIC DIARRHEA [id number] 08/27/2017 05:41:00 08/27/2017 14:32:00 DIS Outpatient MOSES LARIOS DO [facility] PREOP COLONOSCOPY [id number] 08/11/2017 10:59:00 08/11/2017 23:59:59 CLS Outpatient MOSES LARIOS DO [facility] RAD K91.89 NARROWING OF BILE DUCT [id number] 07/15/2017 09:55:00 07/17/2017 15:05:00 DIS Inpatient MOSES LARIOS DO [facility] 4TH CHOLYCYSTITIS [id number] 06/04/2017 17:34:00 06/04/2017 20:31:00 DIS Emergency CATIA JONES, MADDY Espinoza [facility] ER PAIN IN LEFT KNEE AFTER FALL ON 05/24 [id number] 05/24/2017 15:48:00 05/24/2017 17:47:00 DIS Emergency YAMILEX JONES, ES S [facility] ER FALL [id number] 02/26/2017 14:31:00 02/26/2017 23:59:59 CLS Outpatient YAZAN KERR MD [facility] LAB CHRONIC DECREASED WBC [id number] 01/07/2017 15:47:00 01/07/2017 18:45:00 DIS Outpatient NONA BLACKMAN APRN [facility] SDC DEHYDRATION, PALPITATIONS [id number] 09/16/2016 13:16:00 09/16/2016 23:59:59 CLS Outpatient MISSY JONES, PATRICIA Sandy [facility] RAD OVARIAN CYST, BENIGN NEOPLASM OF LT OVARY [id number] 05/20/2016 14:53:00 05/20/2016 23:59:59 CLS Outpatient NONA BLACKMAN APRN [facility] RAD RIGHT HIP PAIN, LEFT PUBIS FRACTURE [id number] 05/20/2016 14:46:00 05/20/2016 23:59:59 CLS Outpatient YAZAN KERR MD [facility] SDC OSTEOPOROSIS [id number] 03/29/2016 10:24:00 03/29/2016 12:40:00 DIS Emergency MADDY BARDALES MD [facility] ER RT HIP PAIN [id number] 03/25/2016 09:47:00 03/25/2016 23:59:59 CLS Outpatient PATRICIA LOUIS MD [facility] RAD OVARIAN CYST [id number] 02/29/2016 08:16:00 02/29/2016 23:59:59 CLS Outpatient NONA BLACKMAN APRN [facility] RAD LEFT FLANK PAIN [id number] 02/19/2016 12:06:00 02/19/2016 23:59:59 CLS Outpatient YAZAN KERR MD [facility] RAD LEFT FLANK PAIN, NEREYDA TENDERNESS [id number] 02/07/2015 09:48:00 02/07/2015 23:59:59 CLS Outpatient ALEX MICHEL [facility] RAD SCREENING [id number] 01/30/2015 00:10:00 01/30/2015 23:59:59 CLS Preadmit ANTONY DOHERTY MD [facility] LAB ACUTE BRONCHITIS [id number] 10/31/2014 15:45:00 01/29/2015 00:01:00 DIS Outpatient ANTONY DOHERTY MD [facility] LAB ACUTE BRONCHITIS [id number] 10/26/2014 16:34:00 10/26/2014 23:59:59 CLS Outpatient ANTONY DOHERTY MD [facility] RAD COUGH [id number] 10/17/2013 04:25:00 10/19/2013 09:20:00 DIS Outpatient PADMINI DE LA PAZ MD [facility] CATH CP [id number] 08/17/2013 07:03:00 08/17/2013 12:15:00 DIS Outpatient ES WARREN MD [facility] NAUSEA/VOMITING; SCREENING [id number] 08/12/2013 07:27:00 08/12/2013 23:59:59 CLS Outpatient ES WARREN MD [facility] PREOP NAUSEA/VOMITING; SCREENING [id number] 08/10/2013 11:38:00 08/10/2013 23:59:59 CLS Outpatient ANTONY DOHERTY MD [facility] RAD ABD PAIN,WEIGHT LOSS [id number] 07/10/2013 11:40:00 07/10/2013 15:04:00 DIS Emergency SANDOVALGHANSHYAM REFERENCE DATA EXPERT [facility] ER FALL [id number] 06/20/2013 08:23:00 06/23/2013 16:25:00 DIS Inpatient ANTONY DOHERTY MD [facility] 4TH INTRACTABLE NAUSEA/ VOMITING HYPONATREMIA CHRONIC B [id number] 06/16/2013 14:40:00 06/16/2013 23:59:59 CLS Outpatient BRIAN MATHIS MD [facility] RAD STENOSIS [id number] 05/01/2013 17:36:00 05/01/2013 23:59:59 CLS Outpatient [id number] 03/29/2013 13:31:00 03/29/2013 23:59:59 CLS Outpatient [id number] 12/02/2017 00:08:00 ACT Emergency ASHLEY DO, NEGRA K [facility] ER MICHELLE,CONGESTION [id number] 04/30/2012 08:48:00 Document Registration [id number] 04/21/2012 10:47:00 Document Registration [id number] 04/11/2012 08:34:00 Document Registration [id number] 02/03/2011 21:17:00 Document Registration [id number] 10/16/2010 13:25:00 Document Registration [id number] 10/07/2010 07:26:00 Document Registration [id number] 07/26/2010 09:48:00 Document Registration [id number] 03/21/2010 09:51:00 Document Registration
[2017-12-02 00:48] LABS: BASOPHILS % (AUTO) 0 % (0-10); EOSINOPHILS # (AUTO) 0.1 10^3/uL (0.0-0.3); EOSINOPHILS % (AUTO) 2 % (0-10); HEMATOCRIT 36 % (35-52); HEMOGLOBIN 12.2 G/DL (11.5-16.0); LYMPHOCYTES # (AUTO) 0.5 X 10^3 (1.0-4.0); LYMPHOCYTES % (AUTO) 11 % (12-44); MEAN CORPUSCULAR HEMOGLOBIN 31 PG (25-34); MEAN CORPUSCULAR HGB CONC 34 G/DL (32-36); MEAN CORPUSCULAR VOLUME 93 FL (80-99); MONOCYTES # (AUTO) 0.3 X 10^3 (0.0-1.0); MONOCYTES % (AUTO) 6 % (0-12); NEUTROPHILS # (AUTO) 3.8 X 10^3 (1.8-7.8); NEUTROPHILS % (AUTO) 80 % (42-75); PLATELET COUNT 140 10^3/uL (130-400); RED BLOOD COUNT 3.89 10^6/uL (4.35-5.85); RED CELL DISTRIBUTION WIDTH 13.6 % (10.0-14.5); WHITE BLOOD COUNT 4.7 10^3/uL (4.3-11.0)
[2017-12-02] MEDS ORDERED: KETOROLAC 30 MG/ML VIAL IVP ONE (01:30)
[2017-12-02 01:37] LABS: BUN/CREATININE RATIO 19; CALCIUM 8.8 MG/DL (8.5-10.1); CARBON DIOXIDE 21 MMOL/L (21-32); CHLORIDE 103 MMOL/L (98-107); CREATININE SERUM 0.74 MG/DL (0.60-1.30); GFR ESTIMATED > 60; GLUCOSE 100 MG/DL (70-105); POTASSIUM 4.3 MMOL/L (3.6-5.0); SODIUM 136 MMOL/L (135-145)
[2017-12-02] MEDS ORDERED: FLUT9.9S NS (02:30)
[2017-12-02] MEDS ORDERED: GUAI1TBM19 PO (02:30)
[2017-12-02] MEDS ORDERED: DOXY100C42 PO (02:30)
--- NOTE | 2017-12-02 02:30 | ED Cough/URI ---
General Chief Complaint: General Problems/Pain Stated Complaint: MICHELLE,CONGESTION Nursing Triage Note: PT TO ED 5 W/ C/O MICHELLE ONSET THIS AM, CONGESTION X5 DAYS. REPORTS WAS SEEN IN THIS ED YESTERDAY FOR C/O CONGESTION, WAS DX W/ BRONCHITIS BUT DENIES IMPROVEMENT Source: patient History of Present Illness Date Seen by Provider: Dec 02, 2017 Time Seen by Provider: 00:12 Initial Comments PT STATES SHE HAS BEEN SICK SINCE Friday11/27/17 HAS HAD NASAL CONGESTION AND DRAINAGE, WITH A PRODUCTIVE COUGH WITH YELLOW SPUTUM PT WEARS HOME O2 AT 2L/NC ALL THE TIME NO INCREASE IN CHRONIC SHORTNESS OF BREATH NO FEVER NO CHEST PAIN NO SWELLING IN LEGS/FEET OR PAIN IN CALVES C/O HEADACHE SINCE THIS AM--HAS NOT TAKEN ANYTHING FOR HER HEADACHE PT HAS BEEN UPSTAIRS FOR THE LAST COUPLE OF DAYS, WITH HER DAUGHTER WHO IS A PATIENT AND IS TO HAVE SURGERY TOMORROW, AND PT IS STAYING THE NIGHT UPSTAIRS WITH HER, SO DECIDED TO COME DOWN AND GET CHECKED WHILE SHE WAS HERE PT WAS SEEN IN ER 11/30/17 FOR THESE SYMPTOMS AND WAS DX WITH BRONCHITIS AND GIVEN RX'S FOR ALBUTEROL, CEFUROXIME, AND PREDNISONE 20 MG X 4 DAYS. PT HAS BREO INHALER AT HOME USED INHALER 4 HOURS AGO-IS UNCLEAR WHICH ONE. SYMPTOMS ARE NOT ANY DIFFERENT TODAY, HAS NOT TAKEN ANY MEDICATIONS FOR COUGH OR CONGESTION PCP: DR. KERR Allergies and Home Medications Allergies Coded Allergies: azithromycin (Verified Allergy, Unknown, 09/02/17) Uncoded Allergies: ERYTHROMYCIN (Allergy, Unknown, 01/07/17) Home Medications Albuterol Sulfate 1 Puff Puff, 2 PUFF IH Q4H 1 PUFF = 90 MCG Prescribed by: KENROY OSEI on 11/30/17 1315 Alprazolam 1 Mg Tablet, 1 MG PO TID, (Reported) Aspirin 81 Mg Tablet.dr, 81 MG PO DAILY, (Reported) Cefuroxime Axetil 500 Mg Tablet, 500 MG PO BID Prescribed by: KENROY OSEI on 11/30/17 1315 Cholecalciferol (Vitamin D3) 2,000 Unit Capsule, 2,000 UNIT PO DAILY, (Reported) Doxycycline Monohydrate 100 Mg Capsule, 100 MG PO BID Prescribed by: ENGRA RAMIREZ on 12/02/17 0230 Escitalopram Oxalate 10 Mg Tablet, 10 MG PO DAILY, (Reported) Fluticasone Propionate 9.9 Ml [place].susp, 2 SPRAYS NS BID Prescribed by: NEGRA RAMIREZ on 12/02/17 0230 Fluticasone/Vilanterol 1 Each Blst.w.dev, 1 PUFF IH DAILY, (Reported) Guaifenesin/Dextromethorphan 1 Each Tbmp.12hr, 1 EACH PO BID Prescribed by: NEGRA RAMIREZ on 12/02/17 0230 Loratadine 10 Mg Tablet, 10 MG PO BID, (Reported) Losartan Potassium 100 Mg Tablet, 100 MG PO HS, (Reported) Metoprolol Tartrate 50 Mg Tablet, 25 MG PO BID, (Reported) TAKES 1/2 OF A (50 MG) TABLET Omeprazole 20 Mg Capsule.dr, 20 MG PO BID, (Reported) Prednisone 20 Mg Tab, 20 MG PO DAILY Prescribed by: KENROY OSEI on 11/30/17 1315 Patient Home Medication List Home Medication List Reviewed: Yes Constitutional: no symptoms reported, No chills, No dizziness, No fever EENTM: see HPI, nose congestion Respiratory: see HPI, cough, No wheezing Cardiovascular: no symptoms reported Gastrointestinal: no symptoms reported Genitourinary: no symptoms reported Musculoskeletal: no symptoms reported Skin: no symptoms reported Psychiatric/Neurological: See HPI, Headache Hematologic/Lymphatic: No Symptoms Reported Immunological/Allergic: no symptoms reported Past Ytclwea-Xxmdhb-Tcltoe Hx Patient Social History Alcohol Use: Denies Use Recreational Drug Use: No Smoking Status: Former Smoker Type Used: Cigarettes Former Smoker, Quit: Jul 15, 1994 2nd Hand Smoke Exposure: No Recent Foreign Travel: No Contact w/Someone Who Travel: No Recent Infectious Disease Expo: No Recent Hopitalizations: No Physical Abuse: No Sexual Abuse: No Mistreated: No Fear: No Immunizations Up To Date Tetanus Booster (TDap): More than 5yrs Date of Pneumonia Vaccine: Sep 30, 2016 Date of Influenza Vaccine: Jul 17, 2017 Seasonal Allergies Seasonal Allergies: No Surgeries History of Surgeries: Yes (HEMORRHOIDECTOMY; HIATAL HERNIA REPAIR X 2 ; HYST/ OVARIES INTACT) Surgeries: Abdominal, Bladder Surgery, Gallbladder, Hysterectomy, Rectal, Tonsillectomy Respiratory History of Respiratory Disorde: Yes (O2 AT 2L/NC CONTINUOUS) Respiratory Disorders: Asthma, COPD, Emphysema Currently Using CPAP: No Currently Using BIPAP: No Cardiovascular History of Cardiac Disorders: Yes Cardiac Disorders: Hypertension Neurological History of Neurological Disord: No Reproductive System Hx Reproductive Disorders: No Sexually Transmitted Disease: No HIV/AIDS: No Female 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 [employer] History: Menopausal Genitourinary History of Genitourinary Disor: No Gastrointestinal History of Gastrointestinal Di: Yes (HIATAL HERNIA REPAIR X 2) Gastrointestinal Disorders: Gastroesophageal Reflux, Chronic Constipation, Hemorrhoids, Hiatal Hernia Musculoskeletal History of Musculoskeletal Dis: Yes (SCIATICA) Musculoskeletal Disorders: Arthritis, Chronic Back Pain Endocrine History of Endocrine Disorders: No HEENT Loss of Vision: Denies Hearing Impairment: Denies Cancer History of Cancer: No Psychosocial History of Psychiatric Problem: Yes Behavioral Health Disorders: Anxiety, Depression Suicide Risk Score: 0 Integumentary History of Skin or Integumenta: No Blood Transfusions History of Blood Disorders: No Family Medical History Significant Family History: Heart Disease, Cancer, Diabetes, Hypertension, Other Conditions/Hx Family Medial History: Abdominal aortic aneurysm 03 FATHER Alcoholism 03 FATHER Cancer 03 FATHER Cataract 03 MOTHER Chest pain 03 FATHER Congestive heart failure 03 FATHER Family history: Cardiovascular disease 03 FATHER 03 MOTHER Family history: Coronary thrombosis 03 MOTHER Family history: Diabetes mellitus 03 MOTHER Family history: Glaucoma 03 MOTHER Family history: Hypertension 03 MOTHER Family history: Osteoporosis 03 MOTHER Headache 03 FATHER 03 MOTHER 09 BROTHER 09 BROTHER 09 SISTER Heart disease 03 FATHER History of - respiratory disease 03 FATHER Kidney disease 03 MOTHER Myocardial infarction 03 FATHER Stroke Visual impairment 03 FATHER 03 MOTHER No Family History of: [place]'s disease Aphasia Cancer of colon Congenital heart disease Cystic fibrosis Dementia Dysphagia Family history: Allergy Family history: Alzheimer's disease Family history: Arthritis Family history: Asthma Family history: Breast disease Family history: Gastrointestinal disease Family history: Thyroid disorder Hearing loss Hereditary disease History of - anemia History of - disorder History of drug abuse Human immunodeficiency virus (HIV) seropositivity Hypercholesterolemia Infertile Malignant neoplasm of lung Parkinson's disease Prostate cancer Psychotic disorder Seizure disorder Tuberculosis Physical Exam Vital Signs Vital Signs - First Documented Capillary Refill : Less Than 3 Seconds General Appearance: WD/WN, no apparent distress, other (HAS OXYGEN TUBING WRAPPED AROUND HER NECK TWICE--STATES SHE DOES THAT BECAUSE THE TUBING IS SO LONG. ) HEENT: PERRL/EOMI, other (NASAL MUCOSAL EDEMA AND CLEAR RHINORRHEA. 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, no motor/sensory deficits, alert, normal mood/affect, oriented x 3 Skin: normal color, warm/dry Focused Exam Evaluation Lactate Level Laboratory Tests 12/02/17 00:31: Lactic Acid Level 2.00 Lactic Acid Level Laboratory Tests Test 12/02/17 00:31 Lactic Acid Level 2.00 MMOL/L (0.50-2.00) Progress/Results/Core Measures Suspected Sepsis Recent Fever Within 48 Hours: No Infection Criteria Present: None New/Unexplained Altered Menta: No Sepsis Screen: No Definite Risk Sepsis Diagnosis: SIRS Temperature:97.3 Pulse: 84 Respiratory Rate: 20 Laboratory Tests 12/02/17 00:31: White Blood Count 4.7 Blood Pressure 144 /85 Mean: 104 Laboratory Tests 12/02/17 00:31: Lactic Acid Level 2.00 Laboratory Tests 12/02/17 00:31: Platelet Count 140 12/02/17 01:05: Creatinine 0.74 Results/Orders Lab Results Laboratory Tests Test 12/02/17 00:31 12/02/17 01:05 Range/Units White Blood Count 4.7 4.3-11.0 10^3/uL Red Blood Count 3.89 L 4.35-5.85 10^6/uL Hemoglobin 12.2 11.5-16.0 G/DL Hematocrit 36 35-52 % Mean Corpuscular Volume 93 80-99 FL Mean Corpuscular Hemoglobin 31 25-34 PG Mean Corpuscular Hemoglobin Concent 34 32-36 G/DL Red Cell Distribution Width 13.6 10.0-14.5 % Platelet Count 140 130-400 10^3/uL Mean Platelet Volume 10.0 7.4-10.4 FL Neutrophils (%) (Auto) 80 H 42-75 % Lymphocytes (%) (Auto) 11 L 12-44 % Monocytes (%) (Auto) 6 0-12 % Eosinophils (%) (Auto) 2 0-10 % Basophils (%) (Auto) 0 0-10 % Neutrophils # (Auto) 3.8 1.8-7.8 X 10^3 Lymphocytes # (Auto) 0.5 L 1.0-4.0 X 10^3 Monocytes # (Auto) 0.3 0.0-1.0 X 10^3 Eosinophils # (Auto) 0.1 0.0-0.3 10^3/uL Basophils # (Auto) 0.0 0.0-0.1 10^3/uL Lactic Acid Level 2.00 0.50-2.00 MMOL/L Sodium Level 136 135-145 MMOL/L Potassium Level 4.3 3.6-5.0 MMOL/L Chloride Level 103 98-107 MMOL/L Carbon Dioxide Level 21 21-32 MMOL/L Anion Gap 12 5-14 MMOL/L Blood Urea Nitrogen 14 7-18 MG/DL Creatinine 0.74 0.60-1.30 MG/DL Estimat Glomerular Filtration Rate > 60 BUN/Creatinine Ratio 19 Glucose Level 100 70-105 MG/DL Calcium Level 8.8 8.5-10.1 MG/DL Micro Results Microbiology 12/02/17 Influenza Types A,B Antigen (ESVIN) - Final, Complete My Orders Orders - NEGRA RAMIREZ DO Saline Lock/Iv-Start (12/02/17 00:20) O2 (12/02/17 00:20) Monitor-Rhythm Ecg Trace Only (12/02/17 00:20) Basic Metabolic Panel (12/02/17 00:20) Cbc With Automated Diff (12/02/17 00:20) Blood Culture (12/02/17 00:20) Influenza A And B Antigens (12/02/17 00:20) Chest Pa/Lat (2 View) (12/02/17 00:20) Lactic Acid Analyzer (12/02/17 00:20) Methylprednisolone Sod Succ (Solu-Medrol (12/02/17 00:20) Ketorolac Injection (Toradol Injection) (12/02/17 01:30) Medications Given in ED Current Medications Medications Dose Ordered Sig/Makenna Route Start Time Stop Time Status Last Admin Dose Admin Ketorolac Tromethamine 30 mg ONCE ONCE IVP 12/02/17 01:30 12/02/17 01:35 DC 12/02/17 01:48 30 MG Vital Signs/I&O Vital Sign - Last 12Hours 12/02/17 12/02/17 12/02/17 00:13 00:13 02:45 Temp 97.3 Pulse 84 65 Resp 20 20 B/P (MAP) 144/85 (104) 145/89 Pulse Ox 97 98 98 O2 Delivery Nasal Cannula Nasal Cannula Nasal Cannula O2 Flow Rate 2.00 2.00 2.00 Capillary Refill : Less Than 3 Seconds Blood Pressure Mean: 104 Progress Note : Progress Note HEADACHE GONE WITH TORADOL. STATES SHE FEELS MUCH BETTER NO OTHER COMPLAINTS DURING ER STAY NO COUGH NOTED AT ANY TIME. UNEVENTFUL ER STAY Diagnostic Imaging Comments CXR--NO ACUTE PROCESS, PENDING RADIOLOGIST REVIEW Reviewed: Reviewed by Me Departure Impression Impression: Primary Impression: Bronchitis Additional Impression: Upper respiratory infection Disposition: HOME, SELF-CARE Condition: Improved Departure-Patient Inst. Referrals: YAZAN KERR MD (PCP/Family) Primary Care Physician Patient Instructions: Acute Bronchitis, Adult (DC), Bacterial Upper Respiratory Infection, Adult (DC) Add. Discharge Instructions: CONTINUE YOUR CURRENT MEDICATIONS AND INHALERS PRESCRIBED LOTS OF CLEAR LIQUIDS FOLLOW UP WITH YOUR DR IN 3-4 DAYS IF NO BETTER All discharge instructions reviewed with patient and/or family. Voiced understanding. Scripts Fluticasone Propionate (Flonase Allergy Relief) 9.9 Ml [place].susp 2 SPRAYS NS BID, #1 SPRAY Prov: NEGRA RAMIREZ DO 12/02/17 Guaifenesin/Dextromethorphan (Mucinex Dm ER 1,200-60 mg Tab) 1 Each Tbmp.12hr 1 EACH PO BID for 10 Days, #20 EA Prov: NEGRA RAMIREZ DO 12/02/17 Doxycycline Monohydrate (Doxycycline Monohydrate) 100 Mg Capsule 100 MG PO BID, #20 CAP Prov: NEGRA RAMIREZ DO 12/02/17 NEGRA RAMIREZ DO Dec 02, 2017 02:30
[2017-12-02 02:45] VITALS: BP 145/89
--- NOTE | 2017-12-02 07:00 | Diagnostic Imaging Report ---
INDICATION: Cough and congestion. EXAMINATION: PA and lateral views of the chest were obtained. COMPARISON: Comparison is made with the prior examination dated 11/30/2017. FINDINGS: The heart size is normal. The mediastinum is unremarkable. There is air-trapping compatible with COPD. There is a previously treated midthoracic compression fracture. There is no pleural effusion or pneumothorax. IMPRESSION: COPD. Dictated by: Dictated on workstation # [id number]
== END 2017-12-02 02:45 | disposition home or self-care (01) ==
LOC: EDUNIT# 00:06 → ER 00:08
DX: J40 Bronchitis, not specified as acute or chronic (principal); J06.9 Acute upper respiratory infection, unspecified; J43.9 Emphysema, unspecified; F41.9 Anxiety disorder, unspecified; F32.9 Major depressive disorder, single episode, unspecified; I10 Essential (primary) hypertension; K21.9 Gastro-esophageal reflux disease without esophagitis; Z88.1 Allergy status to other antibiotic agents; Z79.82 Long term (current) use of aspirin; Z82.49 Family history of ischemic heart disease and other diseases of the circulatory system; Z79.52 Long term (current) use of systemic steroids; Z87.891 Personal history of nicotine dependence; Z90.49 Acquired absence of other specified parts of digestive tract; Z87.19 Personal history of other diseases of the digestive system; Z90.89 Acquired absence of other organs; Z90.710 Acquired absence of both cervix and uterus
CPT/HCPCS: 36415; 71046; 80048; 83605; 85025; 87040; 87804; 93041; 96374; 96375

== ENCOUNTER → 2019-03-17 | Outpatient (CLI) | payer MEDICARE, OTHER ==
[~2019-03-17] MED LIST changes: -AMLO5TAB2 PO; +AMLO5TAB9 PO; +DOXY100C42 PO; +FLUT9.9S NS; +GUAI1TBM19 PO; -LOSA100T28 PO; +LOSA100T57 PO; -SPIR25TA3 PO; +SPIR25TA5 PO
[2019-03-17 14:31] LABS: BASOPHILS % (AUTO) 0 % (0-10); EOSINOPHILS # (AUTO) 0.4 10^3/uL (0.0-0.3); EOSINOPHILS % (AUTO) 8 % (0-10); HEMATOCRIT 39 % (35-52); HEMOGLOBIN 12.7 G/DL (11.5-16.0); LYMPHOCYTES # (AUTO) 1.2 X 10^3 (1.0-4.0); LYMPHOCYTES % (AUTO) 25 % (12-44); MEAN CORPUSCULAR HEMOGLOBIN 30 PG (25-34); MEAN CORPUSCULAR HGB CONC 33 G/DL (32-36); MEAN CORPUSCULAR VOLUME 93 FL (80-99); MEAN PLATELET VOLUME 9.7 FL (7.4-10.4); MONOCYTES # (AUTO) 0.3 X 10^3 (0.0-1.0); MONOCYTES % (AUTO) 7 % (0-12); NEUTROPHILS # (AUTO) 2.9 X 10^3 (1.8-7.8); NEUTROPHILS % (AUTO) 59 % (42-75); PLATELET COUNT 163 10^3/uL (130-400); RED CELL DISTRIBUTION WIDTH 13.3 % (10.0-14.5); WHITE BLOOD COUNT 4.8 10^3/uL (4.3-11.0)
[2019-03-17 14:57] LABS: ALANINE AMINOTRANSFERASE 14 U/L (0-55); ALBUMIN 3.7 GM/DL (3.2-4.5); ALKALINE PHOSPHATASE 63 U/L (40-136); BILIRUBIN,TOTAL 0.4 MG/DL (0.1-1.0); BUN/CREATININE RATIO 15; CALCIUM 9.2 MG/DL (8.5-10.1); CARBON DIOXIDE 23 MMOL/L (21-32); CHLORIDE 102 MMOL/L (98-107); CREATININE SERUM 0.71 MG/DL (0.60-1.30); GFR ESTIMATED > 60; GLUCOSE 88 MG/DL (70-105); POTASSIUM 4.4 MMOL/L (3.6-5.0); SODIUM 135 MMOL/L (135-145); TOTAL PROTEIN 7.3 GM/DL (6.4-8.2)
== END ==
LOC: CARD 14:10
PROVIDERS: ATTEND Nurse Practitioner Family
DX: R06.00 Dyspnea, unspecified (principal); R07.9 Chest pain, unspecified
CPT/HCPCS: 36415; 80053; 84484; 85025; 93005

== ENCOUNTER 2019-04-06 08:10 | Day surgery (SDC) | payer MEDICARE, OTHER ==
[2019-04-06] VITALS (9 sets, daily range): BP systolic 82–130; BP diastolic 59–89
[~2019-04-06] VITALS: Ht 152.4 cm; Wt 59.0 kg
[2019-04-06] MEDS ORDERED: HEParin (CATH LAB) 2,000 ML IV ONE (08:11)
[2019-04-06] MEDS ORDERED: LIDOCAINE 1% INJ 20 ML 20 ML VIAL ONE (08:11)
[2019-04-06] MEDS ORDERED: NS IV 1000 ML 1,000 ML ONE (08:11)
--- OUTSIDE RECORDS SUMMARY | 2019-04-06 08:18 | XMS REPORT | CCD ---
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 [employer] 09/15/2018 Marital status Unknown 02/07/2015 Number of children Unknown 3 02/07/[address]: 6999797 Quit over 10 years ago 199302/07/2015 Number of years using tobacco Unknown 20 - 30 02/07/2015 Alcohol history Unknown occasionally drinks alcohol 02/07/2015 Allergies, Adverse Reactions, Alerts Substance Reaction Codes Entered Date Inactivated Date Status * NO KNOWN FOOD ALLERGIES Unknown 02/07/2015 No Inactive Date Active Erythromycin RxNorm: 4053 02/06/2015 No Inactive Date Active Past Medical History Illness Codes Condition Status Onset Date Resolved Date Chest pain, unspecified ICD-9: 786.50 ICD-10: R07.9 Active 09/15/2018 Unknown Chronic obstructive pulmonary disease, unspecified ICD-9: 496 ICD-10: J44.9 Active 01/01/2017 Unknown Essential (primary) hypertension ICD-9: 401.1 ICD-10: I10 Active 01/14/2017 Unknown Encounter for general adult medical examination with abnormal findings ICD-9: V70.0 ICD-10: Z00.01 Active 12/12/2016 Unknown Fecal urgency ICD-9: 787.63 ICD-10: R15.2 Active 07/22/2018 Unknown 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 Active 12/22/2018 Unknown Other vitamin B12 deficiency anemias ICD-9: 281.1 ICD-10: D51.8 Active 06/02/2018 Unknown Other allergic rhinitis ICD-9: 477.9 ICD-10: J30.89 Active 02/06/2015 Unknown Other emphysema ICD-9: 492.8 ICD-10: J43.8 Active 07/31/2017 Unknown Major depressive disorder, recurrent, mild ICD-9: 296.31 ICD-10: F33.0 Active 07/16/2016 Unknown Unsteadiness on feet ICD- 9: 781.2 ICD-10: R26.81 Active 05/28/2017 Unknown Generalized abdominal pain ICD-9: 789.07 ICD-10: R10.84 Active 07/22/2018 Unknown Encounter for immunization ICD-9: V03.82 ICD-10: Z23 Active 08/27/2016 Unknown Vitamin B12 deficiency anemia, unspecified ICD-9: 281.1 ICD-10: D51.9 Active 05/21/2018 Unknown Candidal stomatitis ICD- 9: 112.0 ICD-10: B37.0 Active 04/21/2018 Unknown Chronic obstructive pulmonary disease with (acute) exacerbation ICD-9: 491.21 ICD-10: J44.1 Active 04/09/2018 Unknown Dependence on supplemental oxygen ICD-9: V46.2 ICD-10: Z99.81 Active 10/16/2017 Unknown Effusion, left knee ICD- 9: 719.06 ICD-10: M25.462 Active 06/16/2017 Unknown Hypoxemia ICD-9: 799.02 ICD-10: R09.02 Active 10/16/2017 Unknown Pain in left knee ICD-9: 719.46 ICD-10: M25.562 Active 06/16/2017 Unknown Pain in thoracic spine ICD-9: 724.1 ICD-10: M54.6 Active 09/03/2017 Unknown Abnormal levels of other serum enzymes ICD-9: 790.5 ICD-10: R74.8 Active 07/18/2017 Unknown Calculus of gallbladder without cholecystitis without obstruction ICD-9: 574.20 ICD-10: K80.20 Active 07/18/2017 Unknown Chronic obstructive pulmonary disease with acute lower respiratory infection ICD-9: 491.22 ICD-10: J44.0 Active 05/05/2017 Unknown Gastro-esophageal reflux disease without esophagitis ICD-9: [...] ICD-9: 401.9 ICD-10: I10 Active 02/06/2015 Unknown Acute laryngopharyngitis ICD-9: 465.9 ICD-10: J06.0 Active 03/05/2015 Unknown Pain in left hip ICD-9: 719.45 ICD-10: M25.552 Active 05/14/2016 Unknown Fracture [...] Hypertension Unknown Active 02/07/2015 Unknown ALLERGIC RHINITIS ICD-9: 477.9 Active 02/06/2015 Unknown COPD (chronic obstructive pulmonary disease) ICD-9: 496 Active 02/06/2015 Unknown ESOPHAGEAL REFLUX ICD-9: 530.81 Active 02/06/2015 Unknown ESSENTIAL HYPERTENSION ICD-9: 401.9 Active 02/06/2015 Unknown Problems Condition Codes Effective Dates Condition Status Chest pain, unspecified ICD-9: 786.50 ICD-10: R07.9 09/15/2018 Active Chronic obstructive pulmonary disease, unspecified ICD-9: 496 ICD-10: J44.9 01/01/2017 Active Essential (primary) hypertension ICD-9: 401.1 ICD-10: I10 01/14/2017 Active Encounter for general adult medical examination with abnormal findings ICD-9: V70.0 ICD-10: Z00.01 12/12/2016 Active Fecal urgency ICD-9: 787.63 ICD-10: R15.2 07/22/2018 Active 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 12/22/2018 Active Other vitamin B12 deficiency anemias ICD-9: 281.1 ICD-10: D51.8 06/02/2018 Active Other allergic rhinitis ICD-9: 477.9 ICD-10: J30.89 02/06/2015 Active Other emphysema ICD-9: 492.8 ICD-10: J43.8 07/31/2017 Active Major depressive disorder, recurrent, mild ICD-9: 296.31 ICD-10: F33.0 07/16/2016 Active Unsteadiness on feet ICD- 9: 781.2 ICD-10: R26.81 05/28/2017 Active Generalized abdominal pain ICD-9: 789.07 ICD-10: R10.84 07/22/2018 Active Encounter for immunization ICD-9: V03.82 ICD-10: Z23 08/27/2016 Active Vitamin B12 deficiency anemia, unspecified ICD-9: 281.1 ICD-10: D51.9 05/21/2018 Active Candidal stomatitis ICD- 9: 112.0 ICD-10: B37.0 04/21/2018 Active Chronic obstructive pulmonary disease with (acute) exacerbation ICD-9: 491.21 ICD-10: J44.1 04/09/2018 Active Dependence on supplemental oxygen ICD-9: V46.2 ICD-10: Z99.81 10/16/2017 Active Effusion, left knee ICD- 9: 719.06 ICD-10: M25.462 06/16/2017 Active Hypoxemia ICD-9: 799.02 ICD-10: R09.02 10/16/2017 Active Pain in left knee ICD-9: 719.46 ICD-10: M25.562 06/16/2017 Active Pain in thoracic spine ICD-9: 724.1 ICD-10: M54.6 09/03/2017 Active Abnormal levels of other serum enzymes ICD-9: 790.5 ICD-10: R74.8 07/18/2017 Active Calculus of gallbladder without cholecystitis without obstruction ICD-9: 574.20 ICD-10: K80.20 07/18/2017 Active Chronic obstructive pulmonary disease with acute lower respiratory infection ICD-9: 491.22 ICD-10: J44.0 05/05/2017 Active Gastro-esophageal reflux disease without esophagitis ICD-9: 530.81 ICD-10: K21.9 02/06/2015 Active Dehydration ICD-9: 276.51 ICD-10: E86.0 01/07/2017 Active Headache ICD-9: 784.0 ICD-10: R51 12/11/2016 Active Other fatigue ICD-9: 780.79 ICD-10: R53.83 12/11/2016 Active Other malaise ICD-9: 780.79 ICD-10: R53.81 01/07/2017 Active Palpitations ICD-9: 785.1 ICD-10: R00.2 01/07/2017 Active Essential (primary) hypertension ICD-9: 401.9 ICD-10: I10 02/06/2015 Active Acute laryngopharyngitis ICD-9: 465.9 ICD-10: J06.0 03/05/2015 Active Pain in left hip ICD-9: 719.45 ICD-10: M25.552 05/14/2016 Active Fracture of [...] Active Hypertension Unknown 02/07/2015 Active ALLERGIC RHINITIS ICD-9: 477.9 02/06/2015 Active COPD (chronic obstructive pulmonary disease) ICD-9: 496 02/06/2015 Active ESOPHAGEAL REFLUX ICD-9: 530.81 02/06/2015 Active ESSENTIAL HYPERTENSION ICD-9: 401.9 02/06/2015 Active Medications Medication Codes Instructions Start Date Stop Date Status Fill Instructions Celexa 20 mg tablet RxNorm: 082375 1 Tablet(s) PO daily 03/23/2019 06/14/2020 Active Celexa 20 mg tablet RxNorm: 061529 1 Tablet(s) PO daily 03/23/2019 03/22/2019 Inactive Keflex 500 mg capsule RxNorm: 744357 1 Capsule(s) PO TID 01/27/2019 02/02/2019 Inactive Keflex 500 mg capsule RxNorm: 474590 1 Capsule(s) PO TID 01/27/2019 01/26/2019 Inactive Lexapro 20 mg tablet RxNorm: 425505 Tablet(s) PO TAKE 1 TABLET EVERY DAY 01/07/2019 01/06/2019 Inactive Lexapro 20 mg tablet RxNorm: 568339 Tablet(s) PO TAKE 1 TABLET EVERY DAY 01/07/2019 01/06/2019 Inactive Lexapro 20 mg tablet RxNorm: 349247 Tablet(s) PO TAKE 1 TABLET EVERY DAY 01/07/2019 03/22/2019 Inactive mupirocin 2 % topical ointment RxNorm: 251029 1 Application TOP BID 12/30/2018 No Stop Date Active cyanocobalamin (vit B-12) 1,000 mcg/mL injection solution RxNorm: 503952 Milliliter(s) Inj 12/22/2018 12/22/2018 Inactive metoprolol tartrate 50 mg tablet RxNorm: 653660 1/2 Tablet(s) PO BID 11/06/2018 10/31/2019 Active alprazolam 1 mg tablet RxNorm: 335257 1/2 Tablet(s) PO TID 11/06/2018 08/02/2019 Active ibuprofen 800 mg tablet RxNorm: 491960 Tablet(s) TAKE 1 TABLET THREE TIMES DAILY 11/06/2018 10/31/2019 Active losartan 100 mg tablet RxNorm: 606041 Tablet(s) TAKE 1 TABLET EVERY EVENING 11/06/2018 10/31/2019 Active Lexapro 10 mg tablet RxNorm: 573201 Tablet(s) TAKE 1 TABLET EVERY DAY 11/06/2018 01/06/2019 Inactive cyanocobalamin (vit B-12) 1,000 mcg/mL injection solution RxNorm: 151077 1 Milliliter(s) Inj 10/01/2018 10/01/2018 Inactive ibuprofen 800 mg tablet RxNorm: 265314 TAKE 1 TABLET THREE TIMES DAILY 09/28/2018 11/05/2018 Inactive cyanocobalamin (vit B-12) 1,000 mcg/mL injection solution RxNorm: 831582 1 Milliliter(s) Inj 09/15/2018 09/15/2018 Inactive Kenalog 40 mg/mL suspension for injection RxNorm: 1386242 Milliliter(s) Inj 09/15/2018 09/15/2018 Inactive alprazolam 1 mg tablet RxNorm: 383494 1/2 Tablet(s) PO TID 08/10/2018 11/05/2018 Inactive cyanocobalamin (vit B-12) 1,000 mcg/mL injection solution RxNorm: 380327 Milliliter(s) Inj 08/04/2018 08/04/2018 Inactive alprazolam 1 mg tablet RxNorm: 407992 1/2 Tablet(s) PO BID 08/04/2018 08/09/2018 Inactive cholestyramine (with sugar) 4 gram powder for susp in a packet RxNorm: 412780 1/2 to 1 packet PO TID take 30 minutes before meals 07/22/2018 12/21/2018 Inactive cyanocobalamin (vit B-12) 1,000 mcg/mL injection solution RxNorm: 225027 1 Milliliter(s) Inj 07/16/2018 07/16/2018 Inactive omeprazole 20 mg capsule,delayed release RxNorm: 549540 Capsule(s) TAKE 1 CAPSULE TWICE DAILY 07/01/2018 06/25/2019 Active cyanocobalamin (vit B-12) 1,000 mcg/mL injection solution RxNorm: 436073 Milliliter(s) Inj 07/01/2018 07/01/2018 Inactive omeprazole 20 mg capsule,delayed release RxNorm: 312800 TAKE 1 CAPSULE TWICE DAILY 07/01/2018 06/30/2018 Inactive alprazolam 1 mg tablet RxNorm: 063648 1 Tablet(s) PO TID 07/01/2018 08/03/2018 Inactive cyanocobalamin (vit B-12) 1,000 mcg/mL injection solution RxNorm: 598682 Milliliter(s) Inj 06/15/2018 06/15/2018 Inactive cyanocobalamin (vit B-12) 1,000 mcg/mL injection solution RxNorm: 178951 Milliliter(s) Inj 06/02/2018 06/02/2018 Inactive fluticasone 50 mcg/actuation nasal spray,suspension RxNorm: 7686681 1 [place] NASAL BID 05/26/2018 05/20/2019 Active Vitamin B-12 1,000 mcg/mL injection solution RxNorm: 811983 1 Milliliter(s) Inj Q2 weeks x2 months and then monthly injections 05/21/2018 No Stop Date Active cyanocobalamin (vit B-12) 1,000 mcg/mL injection solution RxNorm: 197515 Milliliter(s) Inj 05/21/2018 05/21/2018 Inactive fluticasone 50 mcg/actuation nasal spray,suspension RxNorm: 8537277 1 [place] NASAL BID 05/19/2018 05/25/2018 Inactive fluticasone 50 mcg/actuation nasal spray,suspension RxNorm: 6334475 1 [place] NASAL BID 05/18/2018 05/18/2018 Inactive fluticasone 50 mcg/actuation nasal spray,suspension RxNorm: 9882450 1 [place] NASAL BID 05/15/2018 05/17/2018 Inactive fluticasone 50 mcg/actuation nasal spray,suspension RxNorm: 9986720 1 [place] NASAL BID 05/15/2018 05/14/2018 Inactive nystatin 100,000 unit/mL oral suspension RxNorm: 015192 5 Milliliter(s) PO QID 04/21/2018 04/30/2018 Inactive Breo Ellipta 100 mcg-25 mcg/dose powder for inhalation RxNorm: 4175661 1 INH daily 04/09/2018 04/03/2019 Active please call patient with jaramillo before sending prednisone 20 mg tablet RxNorm: 003456 1 Tablet(s) PO BID 04/09/2018 04/13/2018 Inactive start tomorrow Kenalog 40 mg/mL suspension for injection RxNorm: 0310534 1.5 Milliliter(s) Inj 04/09/2018 04/09/2018 Inactive Breo Ellipta 100 mcg-25 mcg/dose powder for inhalation RxNorm: 6094439 1 INH daily 04/09/2018 04/08/2018 Inactive alprazolam 1 mg tablet RxNorm: 856011 1 Tablet(s) PO TID 03/13/2018 06/30/2018 Inactive losartan 100 mg tablet RxNorm: 348800 TAKE 1 TABLET EVERY EVENING 03/02/2018 11/05/2018 Inactive Ventolin HFA 90 mcg/actuation aerosol inhaler RxNorm: 634137 2 INH Q4-6H as needed 12/29/2017 02/26/2018 Inactive Ventolin HFA 90 mcg/actuation aerosol inhaler RxNorm: 333903 2 INH Q4-6H as needed 12/29/2017 12/28/2017 Inactive Diflucan 150 mg tablet RxNorm: 370378 1 Tablet(s) PO daily 11/03/2017 11/05/2017 Inactive please call pt to let herknow when to pick- up the med Keflex 500 mg capsule RxNorm: 271052 1 Capsule(s) PO TID 10/23/2017 10/29/2017 Inactive Kenalog 40 mg/mL suspension for injection RxNorm: 9455957 1 Milliliter(s) Inj 10/16/2017 10/16/2017 Inactive ibuprofen 800 mg tablet RxNorm: 598064 TAKE 1 TABLET THREE TIMES DAILY 10/15/2017 09/27/2018 Inactive Lexapro 10 mg tablet RxNorm: 407125 TAKE 1 TABLET EVERY DAY 10/15/2017 10/09/2018 Inactive hydrocodone 5 mg-acetaminophen 325 mg tablet RxNorm: 678075 1 Tablet(s) PO QID as needed 09/03/2017 07/21/2018 Inactive omeprazole 20 mg capsule,delayed release RxNorm: 255558 1 Capsule(s) PO BID 09/02/2017 06/30/2018 Inactive alprazolam 1 mg tablet RxNorm: 626515 1 Tablet(s) PO TID 09/02/2017 03/12/2018 Inactive metoprolol tartrate 50 mg tablet RxNorm: 722530 1/2 Tablet(s) PO BID 06/26/2017 06/20/2018 Inactive omeprazole 20 mg capsule,delayed release RxNorm: 281807 1 Capsule(s) PO BID 06/05/2017 09/01/2017 Inactive omeprazole 20 mg capsule,delayed release RxNorm: 355225 1 Capsule(s) PO BID 05/28/2017 06/04/2017 Inactive omeprazole 20 mg capsule,delayed release RxNorm: 058456 1 Capsule(s) PO QPM 05/27/2017 05/27/2017 Inactive Breo Ellipta 100 mcg-25 mcg/dose powder for inhalation RxNorm: 5899950 1 INH daily 05/05/2017 04/08/2018 Inactive alprazolam 1 mg tablet RxNorm: 455481 1 Tablet(s) PO TID 02/10/2017 08/07/2017 Inactive metoprolol tartrate 50 mg tablet RxNorm: 327644 1/2 Tablet(s) PO BID 02/10/2017 06/25/2017 Inactive losartan 100 mg tablet RxNorm: 026119 1 Tablet(s) PO QPM 02/10/2017 02/04/2018 Inactive losartan 50 mg tablet RxNorm: 951725 2 Tablet(s) PO QPM 01/23/2017 02/09/2017 Inactive Diflucan 150 mg tablet RxNorm: 813601 1 Tablet(s) PO daily 01/20/2017 01/22/2017 Inactive please call pt to let herknow when to pick- up the med Diflucan 150 mg tablet RxNorm: 691326 1 Tablet(s) PO daily 01/20/2017 01/19/2017 Inactive please call pt to let herknow when to pick- up the med losartan 50 mg tablet RxNorm: 447477 1 Tablet(s) PO QPM 01/14/2017 01/22/2017 Inactive Cipro 500 mg tablet RxNorm: 043317 1 Tablet(s) PO BID 01/08/2017 01/17/2017 Inactive Cipro 500 mg tablet RxNorm: 450842 1 Tablet(s) PO BID 01/08/2017 01/07/2017 Inactive Lexapro 10 mg tablet RxNorm: 955308 TAKE 1 TABLET EVERY DAY 12/20/2016 10/14/2017 Inactive metoprolol tartrate 50 mg tablet RxNorm: 590399 1 Tablet(s) PO in the morning and 1.5 pill at night 12/11/2016 01/13/2017 Inactive spironolactone 25 mg tablet RxNorm: 036695 TAKE 1 TABLET EVERY DAY 11/04/2016 07/21/2018 Inactive metoprolol tartrate 50 mg tablet RxNorm: 857760 TAKE 1 TABLET TWICE DAILY 10/29/2016 12/10/2016 Inactive ibuprofen 800 mg tablet RxNorm: 060548 TAKE 1 TABLET THREE TIMES DAILY 10/21/2016 10/14/2017 Inactive Astepro 0.15 % (205.5 mcg) nasal spray RxNorm: 2287006 1 [place] NASAL BID 10/15/2016 10/14/2016 Inactive Astepro 0.15 % (205.5 mcg) nasal spray RxNorm: 0255709 1 [place] NASAL BID 10/15/2016 07/21/2018 Inactive Astepro 0.15 % (205.5 mcg) nasal spray RxNorm: 8154393 1 [place] NASAL BID 10/15/2016 10/14/2016 Inactive omeprazole 20 mg capsule,delayed release RxNorm: 216669 1 Capsule(s) PO QPM 10/15/2016 05/26/2017 Inactive omeprazole 20 mg capsule,delayed release RxNorm: 314801 1 Capsule(s) QPM 10/15/2016 10/14/2016 Inactive omeprazole 20 mg capsule,delayed release RxNorm: 115776 TAKE 1 CAPSULE TWICE DAILY 09/02/2016 10/14/2016 Inactive Lexapro 10 mg tablet RxNorm: 894520 TAKE 1 TABLET EVERY DAY 08/21/2016 12/19/2016 Inactive calcitonin (salmon) 200 unit/actuation nasal spray RxNorm: 015914 1 [place] NASAL daily ONE SPRAY PER ONE NOSTRIL DAILY- ALTERNATE NOSTRILS DAILY 05/31/2016 05/30/2016 Inactive She will do this for 3 months- If she wants to do a 3 month supply at one time she can without refill calcitonin (salmon) 200 unit/actuation nasal spray RxNorm: 167156 1 [place] NASAL daily ONE SPRAY PER ONE NOSTRIL DAILY- ALTERNATE NOSTRILS DAILY 05/31/2016 07/30/2016 Inactive x3 months- no refills Forteo 20 mcg/dose (600 mcg/2.4 mL) subcutaneous pen injector RxNorm: 7260664 1 injection SQ daily 05/22/2016 05/30/2016 Inactive call pt with jaramillo first Forteo 20 mcg/dose (600 mcg/2.4 mL) subcutaneous pen injector RxNorm: 4067212 1 injection SQ daily 05/22/2016 05/21/2016 Inactive Prolia 60 mg/mL subcutaneous syringe RxNorm: 223612 1 Milliliter(s) SQ every 6 months 05/13/2016 07/21/2018 Inactive Please check [place] through insurance and let me know- Thanks! Mary Ellen alprazolam 1 mg tablet RxNorm: 657880 1 Tablet(s) PO TID 05/08/2016 11/01/2016 Inactive Lexapro 10 mg tablet RxNorm: 324328 TAKE 1 TABLET EVERY DAY 04/22/2016 08/20/2016 Inactive spironolactone 25 mg tablet RxNorm: 632051 TAKE 1 TABLET EVERY DAY 04/22/2016 11/03/2016 Inactive Diflucan 150 mg tablet RxNorm: 016992 1 Tablet(s) PO daily 03/20/2016 04/14/2016 Inactive Diflucan 150 mg tablet RxNorm: 385034 1 Tablet(s) PO daily 03/20/2016 03/19/2016 Inactive Augmentin 500 mg-125 mg tablet RxNorm: 783192 1 Tablet(s) PO TID 03/14/2016 03/23/2016 Inactive omeprazole 20 mg capsule,delayed release RxNorm: 348030 1 Tablet(s) PO BID 03/06/2016 09/01/2016 Inactive [SAVINGS FOR NON-COVERED DRUGS -- BIN:070124, PCN: ASPROD1, Group: XXXXX, ID# [id number], Questions: . THIS IS NOT INSURANCE.] amlodipine 5 mg tablet RxNorm: 314355 TAKE 1 TABLET EVERY DAY 03/01/2016 04/22/2016 Inactive omeprazole 20 mg tablet,delayed release RxNorm: 794143 1 Tablet(s) PO BID 02/27/2016 03/05/2016 Inactive [SAVINGS FOR NON-COVERED DRUGS -- BIN:433799, PCN: ASPROD1, Group: XXXXX, ID# [id number], Questions: . THIS IS NOT INSURANCE.] spironolactone 25 mg tablet RxNorm: 318550 TAKE 1 TABLET EVERY DAY 12/21/2015 04/21/2016 Inactive Lexapro 10 mg tablet RxNorm: 168257 1 Tablet(s) PO daily 12/19/2015 01/01/2016 Inactive Lexapro 10 mg tablet RxNorm: 263629 1 Tablet(s) PO daily 12/19/2015 02/09/2017 Inactive Lexapro 10 mg tablet RxNorm: 931348 1 Tablet(s) PO daily 12/19/2015 12/18/2015 Inactive alprazolam 1 mg tablet RxNorm: 927542 1 Tablet(s) PO TID 12/01/2015 02/28/2016 Inactive ibuprofen 800 mg tablet RxNorm: 429111 1 Tablet(s) PO TID 10/26/2015 10/20/2016 Inactive alprazolam 1 mg tablet RxNorm: 443365 1 Tablet(s) PO TID 08/23/2015 07/21/2018 Inactive spironolactone 25 mg tablet RxNorm: 503068 1 Tablet(s) PO daily 08/21/2015 12/20/2015 Inactive metoprolol tartrate 50 mg tablet RxNorm: 169575 1 Tablet(s) PO BID 08/10/2015 08/03/2016 Inactive [SAVINGS FOR NON-COVERED DRUGS -- BIN:157462, PCN: ASPROD1, Group: XXXXX, ID# [id number], Questions: . THIS IS NOT INSURANCE.] omeprazole 20 mg tablet,delayed release RxNorm: 955283 1 Tablet(s) PO BID 08/07/2015 02/02/2016 Inactive [SAVINGS FOR NON-COVERED DRUGS -- BIN:086011, PCN: ASPROD1, Group: XXXXX, ID# [id number], Questions: . THIS IS NOT INSURANCE.] Keflex 500 mg capsule RxNorm: 705874 1 Capsule(s) PO TID 07/10/2015 07/16/2015 Inactive alprazolam 1 mg tablet RxNorm: 607992 1 Tablet(s) PO TID 06/02/2015 08/22/2015 Inactive alprazolam 1 mg tablet RxNorm: 231054 1 Tablet(s) PO TID 03/29/2015 06/01/2015 Inactive amlodipine 5 mg tablet RxNorm: 278083 1 Tablet(s) PO daily 03/06/2015 02/29/2016 Inactive Nasonex 50 mcg/actuation [place] RxNorm: 964215 1 [place] NASAL daily 03/03/2015 03/02/2015 Inactive Keflex 500 mg capsule RxNorm: 148177 1 Capsule(s) PO TID 03/03/2015 03/02/2015 Inactive Nasonex 50 mcg/actuation [place] RxNorm: 503936 1 [place] NASAL daily 03/03/2015 05/01/2015 Inactive Keflex 500 mg capsule RxNorm: 275375 1 Capsule(s) PO TID 03/03/2015 03/05/2015 Inactive Carafate 1 gram tablet RxNorm: 724808 TAKE 1 TABLET FOUR TIMES DAILY 30 MINUTES BEFORE MEALS AND AT BEDTIME 02/28/2015 12/18/2015 Inactive Kenalog 40 mg/mL suspension for injection RxNorm: 8740759 Milliliter(s) Inj 02/07/2015 02/07/2015 Inactive [SAVINGS FOR NON-COVERED DRUGS -- BIN:724006, PCN: ASPROD1, Group: XXXXX, ID# [id number], Questions: . THIS IS NOT INSURANCE.] metoprolol tartrate 50 mg tablet RxNorm: 783573 1 Tablet(s) PO BID 02/07/2015 08/09/2015 Inactive [SAVINGS FOR NON-COVERED DRUGS -- BIN:181563, PCN: ASPROD1, Group: XXXXX, ID# [id number], Questions: . THIS IS NOT INSURANCE.] Carafate 1 gram tablet RxNorm: 732702 1 Tablet(s) PO QID 02/07/2015 02/27/2015 Inactive 30 min before meals and at bedtime omeprazole 20 mg tablet,delayed release RxNorm: 245023 1 Tablet(s) PO BID 02/07/2015 08/05/2015 Inactive [SAVINGS FOR NON-COVERED DRUGS -- BIN:863520, PCN: ASPROD1, Group: XXXXX, ID# [id number], Questions: . THIS IS NOT INSURANCE.] Vitamin D3 2,000 unit tablet RxNorm: 533941 1 Tablet(s) PO daily No Start Date Active aspirin 81 mg tablet RxNorm: 895972 1 Tablet(s) PO daily No Start Date Active amlodipine 2.5 mg tablet RxNorm: 662880 1 Tablet(s) PO daily No Start Date 03/05/2015 Inactive spironolactone 25 mg tablet RxNorm: 072983 1 Tablet(s) PO daily No Start Date 08/20/2015 Inactive cetirizine 10 mg tablet RxNorm: 7985045 1 Tablet(s) PO daily No Start Date 12/18/2015 Inactive metoprolol tartrate 50 mg tablet RxNorm: 573521 1 Tablet(s) PO daily No Start Date 02/06/2015 Inactive ipratropium bromide 0.06 % nasal spray RxNorm: 453318 nasal No Start Date 12/18/2015 Inactive alprazolam 1 mg tablet RxNorm: 095867 1 Tablet(s) PO TID No Start Date 03/28/2015 Inactive Prolia 60 mg/mL subcutaneous syringe RxNorm: 674312 1 Milliliter(s) SQ every 6 months No Start Date 05/12/2016 Inactive Please check jaramillo through insurance and let me know- Thanks! Mary Ellen ibuprofen 800 mg tablet RxNorm: 894863 1 Tablet(s) PO TID No Start Date 10/25/2015 Inactive Protonix 40 mg tablet,delayed release RxNorm: 948499 1 Tablet(s) PO daily No Start Date 03/05/2015 Inactive Vitamin B-12 1,000 mcg/mL injection solution RxNorm: 654851 1 Milliliter(s) Inj Q2 weeks x2 months and then monthly injections No Start Date 05/20/2018 Inactive loratadine 10 mg tablet RxNorm: 322455 1 Tablet(s) PO daily No Start Date 07/21/2018 Inactive Medication Administered Medication Codes Instructions Start Date Status cyanocobalamin (vit B-12) 1,000 mcg/mL injection solution RxNorm: 496279 [place] 12/22/2018 No longer Active cyanocobalamin (vit B-12) 1,000 mcg/mL injection solution RxNorm: 808494 1Milliliter 10/01/2018 No longer Active Kenalog 40 mg/mL suspension for injection RxNorm: 2626847 Millil[place] 09/15/2018 No longer Active cyanocobalamin (vit B-12) 1,000 mcg/mL injection solution RxNorm: 338849 1Milliliter 09/15/2018 No longer Active cyanocobalamin (vit B-12) 1,000 mcg/mL injection solution RxNorm: 283467 Milliliter 08/04/2018 No longer Active cyanocobalamin (vit B-12) 1,000 mcg/mL injection solution RxNorm: 884137 1Milliliter 07/16/2018 No longer Active cyanocobalamin (vit B-12) 1,000 mcg/mL injection solution RxNorm: 820543 Milliliter 07/01/2018 No longer Active cyanocobalamin (vit B-12) 1,000 mcg/mL injection solution RxNorm: 748088 Milliliter 06/15/2018 No longer Active cyanocobalamin (vit B-12) 1,000 mcg/mL injection solution RxNorm: 800100 Milliliter 06/02/2018 No longer Active cyanocobalamin (vit B-12) 1,000 mcg/mL injection solution RxNorm: 365776 Milliliter 05/21/2018 No longer Active Kenalog 40 mg/mL suspension for injection RxNorm: 2933532 1.5Milliliter 04/09/2018 No longer Active Kenalog 40 mg/mL suspension for injection RxNorm: 9236643 1Milliliter 10/16/2017 No longer Active Kenalog 40 mg/mL suspension for injection RxNorm: 3255886 Milliliter 02/07/2015 No longer Active Immunizations Vaccine Codes Date Status Influenza CVX: 141 06/25/2018 completed Pneumococcal (Adult) CVX: 33 08/28/2016 completed Assessments Condition Codes Effective Dates Chronic obstructive pulmonary disease, unspecified ICD-10: J44.9 ICD-9: 496 03/17/2019 Chest pain, unspecified ICD-10: R07.9 ICD-9: 786.50 03/17/2019 Essential (primary) hypertension ICD-10: I10 ICD-9: 401.1 03/17/2019 Encounter for general adult medical examination with abnormal findings ICD-10: Z00.01 ICD-9: V70.0 12/30/2018 Fecal urgency ICD-10: R15.2 ICD-9: 787.63 12/22/2018 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 ICD-9: 564.5 12/22/2018 Other vitamin B12 deficiency anemias ICD-10: D51.8 ICD-9: 281.1 12/22/2018 Other allergic rhinitis ICD-10: J30.89 ICD-9: 477.9 09/15/2018 Major depressive disorder, recurrent, 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 ICD-9: 296.31 08/04/2018 Unsteadiness on feet ICD-10: R26.81 ICD-9: 781.2 08/04/2018 Generalized abdominal pain ICD-10: R10.84 ICD-9: 789.07 07/22/2018 Encounter for immunization ICD-10: Z23 ICD-9: V03.82 06/25/2018 Candidal stomatitis ICD-10: B37.0 ICD-9: 112.0 04/21/2018 Other emphysema ICD-10: J43.8 ICD-9: 492.8 04/21/2018 Chronic obstructive pulmonary disease with (acute) exacerbation ICD-10: J44.1 ICD-9: 491.21 04/09/2018 Pain in left knee ICD-10: M25.562 ICD-9: 719.46 10/16/2017 Effusion, left knee ICD-10: M25.462 ICD-9: 719.06 10/16/2017 Dependence on supplemental oxygen ICD-10: Z99.81 ICD-9: V46.2 10/16/2017 Hypoxemia ICD-10: R09.02 ICD-9: 799.02 10/16/2017 Pain in thoracic spine ICD-10: M54.6 ICD-9: 724.1 09/03/2017 Abnormal levels of other serum enzymes ICD-10: R74.8 ICD-9: 790.5 08/11/2017 Calculus of gallbladder without cholecystitis without obstruction ICD-10: K80.20 ICD-9: 574.20 07/18/2017 Chronic obstructive pulmonary disease with acute lower respiratory infection ICD-10: J44.0 ICD-9: 491.22 05/05/2017 Gastro-esophageal reflux disease without esophagitis ICD-10: K21.9 ICD-9: 530.81 02/10/2017 Dehydration ICD-10: E86.0 ICD-9: 276.51 01/07/2017 Palpitations ICD-10: R00.2 ICD-9: 785.1 01/07/2017 Other fatigue ICD-10: R53.83 ICD-9: 780.79 01/07/2017 Other malaise ICD-10: R53.81 ICD-9: 780.79 01/07/2017 Headache ICD-10: R51 ICD-9: 784.0 01/07/2017 Essential (primary) hypertension ICD-10: I10 ICD-9: 401.9 01/02/2017 Acute laryngopharyngitis ICD-10: J06.0 ICD-9: 465.9 05/15/2016 [...] ICD-9: 465.9 03/06/2015 ESSENTIAL HYPERTENSION ICD-9: 401.9 03/06/2015 ALLERGIC RHINITIS ICD-9: 477.9 02/07/2015 ESOPHAGEAL REFLUX ICD-9: 530.81 02/07/2015 COPD (chronic obstructive pulmonary disease) ICD-9: 496 02/07/2015 Reason For Visit Reason For Visit Effective Dates Notes dyspnea on exertion 03/17/2019 Annual Medicare Wellness Exam 12/30/2018 constipation 12/22/2018 intermittent with diarrhea chest pain/pressure 09/15/2018 diarrhea 08/18/2018 gait abnormality 08/04/2018 hypertension 07/22/2018 hypertension 04/21/2018 headache 04/09/2018 hypertension 01/19/2018 Annual Medicare Wellness Exam 12/18/2017 Hospital Follow Up 10/16/2017 back pain 09/03/2017 [...] Item Item Code Result Date Comp Metabolic Uuo156 NA 138 mEq/L 09/03/2017 Comp Metabolic Vei412 K 3.9 mEq/L 09/03/2017 Comp Metabolic Weq391 CL 102 mEq/L 09/03/2017 Comp Metabolic Dha640 CO2 32.0 mEq/L 09/03/2017 Comp Metabolic Xue285 ANION GAP 8 09/03/2017 Comp Metabolic Enz624 GLUCOSE 89 mg/dL 09/03/2017 Comp Metabolic Sbq404 Creat 0.6 mg/dL 09/03/2017 Comp Metabolic Knv468 eGFR 103 ml/min/1.73m2 09/03/2017 Comp Metabolic Leo926 BUN 10 mg/dL 09/03/2017 Comp Metabolic Plm974 B/C Ratio 16.7 Ratio 09/03/2017 Comp Metabolic Nlt737 CALCIUM 8.9 mg/dL 09/03/2017 Comp Metabolic Snk378 ALK PHOS 141 U/L 09/03/2017 Comp Metabolic Upj402 AST(SGOT) 12 U/L 09/03/2017 Comp Metabolic Dhx653 ALT(SGPT) 7 U/L 09/03/2017 Comp Metabolic Nad026 BILI T 0.6 mg/dL 09/03/2017 Comp Metabolic Qrx272 ALBUMIN 3.6 g/dL 09/03/2017 Comp Metabolic Kdp260 TPRO 6.6 g/dL 09/03/2017 Comp Metabolic Qfy148 GLOB 3.0 g/dL 09/03/2017 Comp Metabolic Ilo527 A/G Ratio 1.2 Ratio 09/03/2017 Comp Metabolic Byu193 Osmo 274 mOsmo 09/03/2017 Hepatic Kgl735 ALBUMIN 3.7 g/dL 08/11/2017 Hepatic Uzf864 TPRO 7.0 g/dL 08/11/2017 Hepatic Idb169 GLOB 3.3 g/dL 08/11/2017 Hepatic Yar668 A/G Ratio 1.1 Ratio 08/11/2017 Hepatic Cap416 ALK PHOS 85 U/L 08/11/2017 Hepatic Rkk210 ALT(SGPT) 11 U/L 08/11/2017 Hepatic Ocg341 AST(SGOT) 16 U/L 08/11/2017 Hepatic Qvs406 BILI T 0.6 mg/dL 08/11/2017 Hepatic Pct490 BILI D 0.1 mg/dL 08/11/2017 Hepatic Jmq630 BILI I 0.5 mg/dL 08/11/2017 Hepatic Vlf289 ALBUMIN 3.1 g/dL 07/18/2017 Hepatic Jty382 TPRO 5.9 g/dL 07/18/2017 Hepatic Gos836 GLOB 2.8 g/dL 07/18/2017 Hepatic Yfz609 A/G Ratio 1.1 Ratio 07/18/2017 Hepatic Sjv579 ALK PHOS 123 U/L 07/18/2017 Hepatic Xjq134 ALT(SGPT) 210 U/L 07/18/2017 Hepatic Usk758 AST(SGOT) 71 U/L 07/18/2017 Hepatic Alh688 BILI T 1.1 mg/dL 07/18/2017 Hepatic Ckt485 BILI D 0.4 mg/dL 07/18/2017 Hepatic Nbz616 BILI I 0.7 mg/dL 07/18/2017 Cbc With Differential Ord2 WBC 4.97 K/ul 02/25/2017 Cbc With Differential Ord2 RBC 3.64 M/ul 02/25/2017 Cbc With Differential Ord2 HGB 11.8 g/dl 02/25/2017 Cbc With Differential Ord2 HCT 36.5 % 02/25/2017 Cbc With Differential Ord2 Neut% 59.9 % 02/25/2017 Cbc With Differential Ord2 MCV 100.3 fl 02/25/2017 Cbc With Differential Ord2 Lymph% 24.5 % 02/25/2017 Cbc With Differential Ord2 MCH 32.4 pg 02/25/2017 Cbc With Differential Ord2 [place]% 7.6 % 02/25/2017 Cbc With Differential Ord2 [...] 1.22 K/ul 02/25/2017 Cbc With Differential Ord2 [place] ABS# 0.4 K/ul 02/25/2017 Cbc With Differential [...] 32.3 pg 01/02/2017 Cbc With Differential Ord2 [place]% 7.8 % 01/02/2017 Cbc With Differential Ord2 MCHC 32.9 pg 01/02/2017 Cbc With Differential Ord2 Eos% 6.5 % 01/02/2017 Cbc With Differential Ord2 PLT 168 K/ul 01/02/2017 Cbc With Differential Ord2 Baso% 0.2 % 01/02/2017 Cbc With Differential Ord2 RDW 12.8 % 01/02/2017 Cbc With Differential Ord2 Neut ABS# 3.03 K/ul 01/02/2017 Cbc With Differential Ord2 Lymph ABS# 0.90 K/ul 01/02/2017 Cbc With Differential Ord2 [place] ABS# 0.4 K/ul 01/02/2017 Cbc With Differential Ord2 Eos ABS# 0.3 K/ul 01/02/2017 Cbc With Differential Ord2 Baso ABS# 0.0 K/ul 01/02/2017 Lipid Ord30 CHOL 139 mg/dL 12/13/2016 Lipid Ord30 HDL 48.0 mg/dl 12/13/2016 Lipid Ord30 TRIG 84 mg/dL 12/13/2016 Lipid Ord30 LDL 74 mg/dL 12/13/2016 Lipid Ord30 C/HDL 2.9 Ratio 12/13/2016 Comp Metabolic Gru333 NA 137 mEq/L 12/13/2016 Comp Metabolic Nwj067 K 4.8 mEq/L 12/13/2016 Comp Metabolic Sxg170 CL 101 mEq/L 12/13/2016 Comp Metabolic Cdp805 CO2 32.0 mEq/L 12/13/2016 Comp Metabolic Qik434 ANION GAP 9 12/13/2016 Comp Metabolic Snz056 GLUCOSE 95 mg/dL 12/13/2016 Comp Metabolic Zxn682 Creat 0.8 mg/dL 12/13/2016 Comp Metabolic Rcq430 eGFR 79 ml/min/1.73m2 12/13/2016 Comp Metabolic Cio423 BUN 15 mg/dL 12/13/2016 Comp Metabolic Mhe355 B/C Ratio 19.7 Ratio 12/13/2016 Comp Metabolic Rnl899 CALCIUM 9.3 mg/dL 12/13/2016 Comp Metabolic Tgk063 ALK PHOS 63 U/L 12/13/2016 Comp Metabolic Vrl989 AST(SGOT) 15 U/L 12/13/2016 Comp Metabolic Zcw235 ALT(SGPT) 10 U/L 12/13/2016 Comp Metabolic Qrx883 BILI T 0.7 mg/dL 12/13/2016 Comp Metabolic Htt412 ALBUMIN 3.7 g/dL 12/13/2016 Comp Metabolic Xrn582 TPRO 6.8 g/dL 12/13/2016 Comp Metabolic Bwv187 GLOB 3.2 g/dL 12/13/2016 Comp Metabolic Wjk706 A/G Ratio 1.2 Ratio 12/13/2016 Comp Metabolic Qtb507 Osmo 274 mOsmo 12/13/2016 Cbc With Differential Ord2 WBC 4.16 K/ul 12/13/2016 Cbc With Differential Ord2 RBC 4.26 M/ul 12/13/2016 Cbc With Differential Ord2 HGB 13.6 g/dl 12/13/2016 Cbc With Differential Ord2 HCT 41.5 % 12/13/2016 Cbc With Differential Ord2 Neut% 50.0 % 12/13/2016 Cbc With Differential Ord2 MCV 97.4 fl 12/13/2016 Cbc With Differential Ord2 Lymph% 28.1 % 12/13/2016 Cbc With Differential Ord2 MCH 31.9 pg 12/13/2016 Cbc With Differential Ord2 [place]% 9.9 % 12/13/2016 Cbc With Differential Ord2 [...] 1.17 K/ul 12/13/2016 Cbc With Differential Ord2 [place] ABS# 0.4 K/ul 12/13/2016 Cbc With Differential [...] 14.4 g/dl 12/19/2015 Cbc With Differential Ord2 HCT 43.6 % 12/19/2015 Cbc With Differential Ord2 Neut% 63.9 % 12/19/2015 Cbc With Differential Ord2 MCV 97.3 fl 12/19/2015 Cbc With Differential Ord2 Lymph% 26.7 % 12/19/2015 Cbc With Differential Ord2 MCH 32.1 pg 12/19/2015 Cbc With Differential Ord2 [place]% 5.9 % 12/19/2015 Cbc With Differential Ord2 [...] 1.53 K/ul 12/19/2015 Cbc With Differential Ord2 [place] ABS# 0.3 K/ul 12/19/2015 Cbc With Differential [...] Ord30 C/HDL 2.8 Ratio 12/19/2015 Comp Metabolic Xft596 NA 135 mEq/L 12/19/2015 Comp Metabolic Wce912 K 4.1 mEq/L 12/19/2015 Comp Metabolic Sgd837 CL 99 mEq/L 12/19/2015 Comp Metabolic Eya214 CO2 27.0 mEq/L 12/19/2015 Comp Metabolic Zqw894 ANION GAP 13 12/19/2015 Comp Metabolic Pey763 GLUCOSE 83 mg/dL 12/19/2015 Comp Metabolic Cjh427 Creat 0.7 mg/dL 12/19/2015 Comp Metabolic Glj122 eGFR 88 ml/min/1.73m2 12/19/2015 Comp Metabolic Kmg442 BUN 12 mg/dL 12/19/2015 Comp Metabolic Zbz650 B/C Ratio 17.4 Ratio 12/19/2015 Comp Metabolic Lku610 CALCIUM 9.0 mg/dL 12/19/2015 Comp Metabolic Acq105 ALK PHOS 68 U/L 12/19/2015 Comp Metabolic Yqc791 AST(SGOT) 16 U/L 12/19/2015 Comp Metabolic Eju146 ALT(SGPT) 13 U/L 12/19/2015 Comp Metabolic Kjj904 BILI T 0.7 mg/dL 12/19/2015 Comp Metabolic Aqi915 ALBUMIN 4.0 g/dL 12/19/2015 Comp Metabolic Keu171 TPRO 7.0 g/dL 12/19/2015 Comp Metabolic Huw316 GLOB 3.0 g/dL 12/19/2015 Comp Metabolic Olt248 A/G Ratio 1.3 Ratio 12/19/2015 Comp Metabolic Wdb405 Osmo 269 mOsmo 12/19/2015 Review of Systems System Result Effective Dates Constitutional No recent illness 03/17/2019 Constitutional No chills 03/17/2019 Constitutional No diaphoresis 03/17/2019 Constitutional No fever 03/17/2019 Eyes No eye erythema 03/17/2019 Ears/Nose/Throat/Neck No nasal discharge 03/17/2019 Cardiovascular No chest pain/pressure 03/17/2019 Cardiovascular No dyspnea 03/17/2019 Respiratory No chest congestion 03/17/2019 Respiratory No cough 03/17/2019 Gastrointestinal No abdominal pain 03/17/2019 Neurologic No alteration of consciousness 03/17/2019 Neurologic No mental status change 03/17/2019 Respiratory dyspnea 03/17/2019 Respiratory dyspnea on exertion 03/17/2019 Cardiovascular fatigue 03/17/2019 Cardiovascular exercise intolerance 03/17/2019 Cardiovascular near-syncope/dizziness 03/17/2019 Constitutional No recent illness 12/30/2018 Constitutional No chills 12/30/2018 Constitutional No diaphoresis 12/30/2018 Constitutional No fever 12/30/2018 Eyes No eye erythema 12/30/2018 Ears/Nose/Throat/Neck No nasal discharge 12/30/2018 Cardiovascular No chest pain/pressure 12/30/2018 Cardiovascular No dyspnea 12/30/2018 Respiratory No cough 12/30/2018 Respiratory No dyspnea 12/30/2018 Neurologic No alteration of consciousness 12/30/2018 Neurologic No mental status change 12/30/2018 Constitutional No recent illness 12/22/2018 Constitutional No chills 12/22/2018 Constitutional fatigue 12/22/2018 Constitutional No fever 12/22/2018 Eyes No blindness 12/22/2018 Ears/Nose/Throat/Neck No dizziness 12/22/2018 Ears/Nose/Throat/Neck No nasal discharge 12/22/2018 Cardiovascular No chest pain/pressure 12/22/2018 Cardiovascular No edema 12/22/2018 Cardiovascular No fatigue 12/22/2018 Respiratory No chest congestion 12/22/2018 Respiratory dyspnea on exertion 12/22/2018 Gastrointestinal No abdominal pain 12/22/2018 Gastrointestinal diarrhea 12/22/2018 Musculoskeletal No stiffness 12/22/2018 Musculoskeletal No swelling 12/22/2018 Musculoskeletal No muscle weakness 12/22/2018 Musculoskeletal No myalgias 12/22/2018 Neurologic No alteration of consciousness 12/22/2018 Neurologic No mental status change 12/22/2018 Psychiatric No anxiety 12/22/2018 Psychiatric No depression 12/22/2018 Dermatologic No rash 12/22/2018 Dermatologic No sores 12/22/2018 Constitutional No recent illness 09/15/2018 Constitutional No chills 09/15/2018 Constitutional fatigue 09/15/2018 Constitutional No fever 09/15/2018 Eyes No blindness 09/15/2018 Ears/Nose/Throat/Neck No dizziness 09/15/2018 Ears/Nose/Throat/Neck nasal discharge 09/15/2018 Cardiovascular chest pain/pressure 09/15/2018 Cardiovascular No edema 09/15/2018 Cardiovascular No fatigue 09/15/2018 Respiratory No chest congestion 09/15/2018 Respiratory dyspnea on exertion 09/15/2018 Gastrointestinal No abdominal pain 09/15/2018 Musculoskeletal No stiffness 09/15/2018 Musculoskeletal No swelling 09/15/2018 Musculoskeletal No muscle weakness 09/15/2018 Musculoskeletal No myalgias 09/15/2018 Neurologic No alteration of consciousness 09/15/2018 Neurologic No mental status change 09/15/2018 Psychiatric No anxiety 09/15/2018 Psychiatric No depression 09/15/2018 Ears/Nose/Throat/Neck nasal allergies 09/15/2018 Gastrointestinal No dyspepsia 09/15/2018 Gastrointestinal No diarrhea 09/15/2018 Genitourinary/Nephrology No dysuria 09/15/2018 Dermatologic No rash 09/15/2018 Dermatologic No sores 09/15/2018 Constitutional No recent illness 08/18/2018 Constitutional No chills 08/18/2018 Constitutional fatigue 08/18/2018 Constitutional No fever 08/18/2018 Eyes No blindness 08/18/2018 Ears/Nose/Throat/Neck No dizziness 08/18/2018 Ears/Nose/Throat/Neck No nasal discharge 08/18/2018 Cardiovascular No chest pain/pressure 08/18/2018 Cardiovascular No edema 08/18/2018 Cardiovascular No fatigue 08/18/2018 Respiratory No chest congestion 08/18/2018 Respiratory dyspnea on exertion 08/18/2018 Gastrointestinal No abdominal pain 08/18/2018 Musculoskeletal No stiffness 08/18/2018 Musculoskeletal No swelling 08/18/2018 Musculoskeletal No muscle weakness 08/18/2018 Musculoskeletal No myalgias 08/18/2018 Neurologic No alteration of consciousness 08/18/2018 Neurologic No mental status change 08/18/2018 Psychiatric No anxiety 08/18/2018 Psychiatric No depression 08/18/2018 Gastrointestinal diarrhea 08/18/2018 Constitutional No recent illness 08/04/2018 Constitutional No chills 08/04/2018 Constitutional fatigue 08/04/2018 Constitutional No fever 08/04/2018 Constitutional malaise 08/04/2018 Eyes No blindness 08/04/2018 Ears/Nose/Throat/Neck No dizziness 08/04/2018 Ears/Nose/Throat/Neck nasal allergies 08/04/2018 Ears/Nose/Throat/Neck No nasal discharge 08/04/2018 Cardiovascular No chest pain/pressure 08/04/2018 Cardiovascular No edema 08/04/2018 Cardiovascular No fatigue 08/04/2018 Respiratory No chest congestion 08/04/2018 Respiratory dyspnea on exertion 08/04/2018 Gastrointestinal No abdominal pain 08/04/2018 Musculoskeletal No stiffness 08/04/2018 Musculoskeletal No swelling 08/04/2018 Musculoskeletal No muscle weakness 08/04/2018 Musculoskeletal No myalgias 08/04/2018 Neurologic No alteration of consciousness 08/04/2018 Neurologic No mental status change 08/04/2018 Psychiatric No anxiety 08/04/2018 Psychiatric No depression 08/04/2018 Constitutional No recent illness 07/22/2018 Constitutional No chills 07/22/2018 Constitutional fatigue 07/22/2018 Constitutional No fever 07/22/2018 Constitutional malaise 07/22/2018 Eyes No blindness 07/22/2018 Ears/Nose/Throat/Neck No dizziness 07/22/2018 Ears/Nose/Throat/Neck nasal allergies 07/22/2018 Ears/Nose/Throat/Neck No nasal discharge 07/22/2018 Cardiovascular No chest pain/pressure 07/22/2018 Cardiovascular No edema 07/22/2018 Cardiovascular No fatigue 07/22/2018 Respiratory No chest congestion 07/22/2018 Respiratory dyspnea on exertion 07/22/2018 Gastrointestinal abdominal pain 07/22/2018 Musculoskeletal No stiffness 07/22/2018 Musculoskeletal No swelling 07/22/2018 Musculoskeletal back pain 07/22/2018 Musculoskeletal No muscle weakness 07/22/2018 Musculoskeletal No myalgias 07/22/2018 Neurologic No alteration of consciousness 07/22/2018 Neurologic No mental status change 07/22/2018 Psychiatric No anxiety 07/22/2018 Psychiatric No depression 07/22/2018 Cardiovascular hypertension 07/22/2018 Gastrointestinal diarrhea 07/22/2018 Constitutional No recent illness 04/21/2018 Constitutional No chills 04/21/2018 Constitutional fatigue 04/21/2018 Constitutional No fever 04/21/2018 Constitutional malaise 04/21/2018 Eyes No blindness 04/21/2018 Ears/Nose/Throat/Neck No dizziness 04/21/2018 Ears/Nose/Throat/Neck nasal allergies 04/21/2018 Ears/Nose/Throat/Neck No nasal discharge 04/21/2018 Cardiovascular No chest pain/pressure 04/21/2018 Cardiovascular No edema 04/21/2018 Cardiovascular No fatigue 04/21/2018 Respiratory No chest congestion 04/21/2018 Respiratory dyspnea on exertion 04/21/2018 Gastrointestinal No abdominal pain 04/21/2018 Musculoskeletal No stiffness 04/21/2018 Musculoskeletal No swelling 04/21/2018 Musculoskeletal No muscle weakness 04/21/2018 Musculoskeletal No myalgias 04/21/2018 Neurologic No alteration of consciousness 04/21/2018 Neurologic No mental status change 04/21/2018 Psychiatric No anxiety 04/21/2018 Psychiatric No depression 04/21/2018 Constitutional recent illness 04/09/2018 Constitutional fatigue 04/09/2018 Constitutional No fever 04/09/2018 Constitutional malaise 04/09/2018 Eyes No blindness 04/09/2018 Ears/Nose/Throat/Neck nasal allergies 04/09/2018 Ears/Nose/Throat/Neck No nasal discharge 04/09/2018 Cardiovascular No chest pain/pressure 04/09/2018 Respiratory chest congestion 04/09/2018 Respiratory dyspnea on exertion 04/09/2018 Respiratory dyspnea 04/09/2018 Gastrointestinal No abdominal pain 04/09/2018 Neurologic No alteration of consciousness 04/09/2018 Neurologic No mental status change 04/09/2018 Psychiatric No anxiety 04/09/2018 Psychiatric No depression 04/09/2018 Constitutional No anorexia 04/09/2018 Constitutional No night sweats 04/09/2018 Constitutional No chills 04/09/2018 Constitutional No diaphoresis 04/09/2018 Constitutional No insomnia 04/09/2018 Cardiovascular No edema 04/09/2018 Respiratory productive sputum 04/09/2018 Respiratory cough 04/09/2018 Respiratory wheezing 04/09/2018 Musculoskeletal stiffness 04/09/2018 Constitutional No recent illness 01/19/2018 Constitutional No chills 01/19/2018 Constitutional fatigue 01/19/2018 Constitutional No fever 01/19/2018 Constitutional malaise 01/19/2018 Eyes No blindness 01/19/2018 Ears/Nose/Throat/Neck No dizziness 01/19/2018 Ears/Nose/Throat/Neck nasal allergies 01/19/2018 Ears/Nose/Throat/Neck No nasal discharge 01/19/2018 Cardiovascular No chest pain/pressure 01/19/2018 Cardiovascular No edema 01/19/2018 Cardiovascular No fatigue 01/19/2018 Respiratory No chest congestion 01/19/2018 Respiratory dyspnea on exertion 01/19/2018 Gastrointestinal No abdominal pain 01/19/2018 Musculoskeletal No stiffness 01/19/2018 Musculoskeletal No swelling 01/19/2018 Musculoskeletal No muscle weakness 01/19/2018 Musculoskeletal No myalgias 01/19/2018 Neurologic No alteration of consciousness 01/19/2018 Neurologic No mental status change 01/19/2018 Psychiatric No anxiety 01/19/2018 Psychiatric No depression 01/19/2018 Musculoskeletal back pain 01/19/2018 Constitutional No recent illness 12/18/2017 Constitutional No chills 12/18/2017 Constitutional No diaphoresis 12/18/2017 Constitutional No fever 12/18/2017 Eyes No eye erythema 12/18/2017 Ears/Nose/Throat/Neck No nasal discharge 12/18/2017 Cardiovascular No chest pain/pressure 12/18/2017 Cardiovascular No dyspnea 12/18/2017 Respiratory No cough 12/18/2017 Respiratory No dyspnea 12/18/2017 Neurologic No alteration of consciousness 12/18/2017 Neurologic No mental status change 12/18/2017 Constitutional No recent illness 10/16/2017 Constitutional fatigue 10/16/2017 Constitutional No fever 10/16/2017 Constitutional malaise 10/16/2017 Eyes No blindness 10/16/2017 Ears/Nose/Throat/Neck nasal allergies 10/16/2017 Ears/Nose/Throat/Neck No nasal discharge 10/16/2017 Cardiovascular No chest pain/pressure 10/16/2017 Respiratory No chest congestion 10/16/2017 Respiratory dyspnea on exertion 10/16/2017 Gastrointestinal No abdominal pain 10/16/2017 Musculoskeletal stiffness 10/16/2017 Musculoskeletal swelling 10/16/2017 Musculoskeletal No muscle weakness 10/16/2017 Musculoskeletal No myalgias 10/16/2017 Neurologic No alteration of consciousness 10/16/2017 Neurologic No mental status change 10/16/2017 Psychiatric No anxiety 10/16/2017 Psychiatric No depression 10/16/2017 Musculoskeletal back pain 10/16/2017 Musculoskeletal joint complaint 10/16/2017 Respiratory dyspnea 10/16/2017 Constitutional No recent illness 09/03/2017 Constitutional No chills 09/03/2017 Constitutional No fever 09/03/2017 Eyes No eye erythema 09/03/2017 Ears/Nose/Throat/Neck No nasal discharge 09/03/2017 Cardiovascular No chest pain/pressure 09/03/2017 Cardiovascular No dyspnea 09/03/2017 Respiratory No cough 09/03/2017 Respiratory No dyspnea 09/03/2017 Neurologic No alteration of consciousness 09/03/2017 Neurologic No mental status change 09/03/2017 Musculoskeletal back pain 09/03/2017 Constitutional No recent illness 07/31/2017 Constitutional No chills 07/31/2017 Constitutional fatigue 07/31/2017 Constitutional No fever 07/31/2017 Constitutional malaise 07/31/2017 Eyes No blindness 07/31/2017 Ears/Nose/Throat/Neck No dizziness 07/31/2017 Ears/Nose/Throat/Neck nasal allergies 07/31/2017 Ears/Nose/Throat/Neck No nasal discharge 07/31/2017 Cardiovascular No chest pain/pressure 07/31/2017 Cardiovascular No edema 07/31/2017 Cardiovascular No fatigue 07/31/2017 Respiratory No chest congestion 07/31/2017 Respiratory dyspnea on exertion 07/31/2017 Gastrointestinal No abdominal pain 07/31/2017 Musculoskeletal No stiffness 07/31/2017 Musculoskeletal No swelling 07/31/2017 Musculoskeletal No muscle weakness 07/31/2017 Musculoskeletal No myalgias 07/31/2017 Neurologic No alteration of consciousness 07/31/2017 Neurologic No mental status change 07/31/2017 Psychiatric No anxiety 07/31/2017 Psychiatric No depression 07/31/2017 Constitutional No recent illness 06/16/2017 Constitutional No anorexia 06/16/2017 Constitutional No night sweats 06/16/2017 Constitutional No chills 06/16/2017 Constitutional No diaphoresis 06/16/2017 Constitutional fatigue 06/16/2017 Constitutional No fever 06/16/2017 Constitutional No insomnia 06/16/2017 Constitutional No malaise 06/16/2017 Constitutional No weight loss 06/16/2017 Constitutional No weight gain 06/16/2017 Musculoskeletal joint complaint 06/16/2017 Musculoskeletal swelling 06/16/2017 Constitutional No recent illness 05/28/2017 Constitutional No chills 05/28/2017 Constitutional fatigue 05/28/2017 Constitutional No fever 05/28/2017 Constitutional malaise 05/28/2017 Eyes No blindness 05/28/2017 Ears/Nose/Throat/Neck No dizziness 05/28/2017 Ears/Nose/Throat/Neck nasal allergies 05/28/2017 Ears/Nose/Throat/Neck No nasal discharge 05/28/2017 Cardiovascular No chest pain/pressure 05/28/2017 Cardiovascular No edema 05/28/2017 Cardiovascular No fatigue 05/28/2017 Respiratory No chest congestion 05/28/2017 Respiratory dyspnea on exertion 05/28/2017 Gastrointestinal No abdominal pain 05/28/2017 Musculoskeletal No stiffness 05/28/2017 Musculoskeletal No swelling 05/28/2017 Musculoskeletal No muscle weakness 05/28/2017 Musculoskeletal No myalgias 05/28/2017 Neurologic No alteration of consciousness 05/28/2017 Neurologic No mental status change 05/28/2017 Psychiatric No anxiety 05/28/2017 Psychiatric No depression 05/28/2017 Dermatologic ecchymosis 05/28/2017 Constitutional No recent illness 05/05/2017 Constitutional fatigue 05/05/2017 Constitutional No fever 05/05/2017 Constitutional malaise 05/05/2017 Eyes No blindness 05/05/2017 Ears/Nose/Throat/Neck nasal allergies 05/05/2017 Ears/Nose/Throat/Neck No nasal discharge 05/05/2017 Cardiovascular No chest pain/pressure 05/05/2017 Respiratory No chest congestion 05/05/2017 Respiratory dyspnea on exertion 05/05/2017 Gastrointestinal No abdominal pain 05/05/2017 Neurologic No alteration of consciousness 05/05/2017 Neurologic No mental status change 05/05/2017 Psychiatric No anxiety 05/05/2017 Psychiatric No depression 05/05/2017 Musculoskeletal No stiffness 05/05/2017 Musculoskeletal No swelling 05/05/2017 Musculoskeletal No muscle weakness 05/05/2017 Musculoskeletal No myalgias 05/05/2017 Constitutional No recent illness 03/13/2017 Constitutional No chills 03/13/2017 Constitutional fatigue 03/13/2017 Constitutional No fever 03/13/2017 Constitutional malaise 03/13/2017 Eyes No blindness 03/13/2017 Ears/Nose/Throat/Neck No dizziness 03/13/2017 Ears/Nose/Throat/Neck nasal allergies 03/13/2017 Ears/Nose/Throat/Neck No nasal discharge 03/13/2017 Cardiovascular No chest pain/pressure 03/13/2017 Cardiovascular No edema 03/13/2017 Cardiovascular No fatigue 03/13/2017 Respiratory No chest congestion 03/13/2017 Respiratory dyspnea on exertion 03/13/2017 Gastrointestinal No abdominal pain 03/13/2017 Musculoskeletal No stiffness 03/13/2017 Musculoskeletal No swelling 03/13/2017 Musculoskeletal No muscle weakness 03/13/2017 Musculoskeletal No myalgias 03/13/2017 Neurologic No alteration of consciousness 03/13/2017 Neurologic No mental status change 03/13/2017 Psychiatric No anxiety 03/13/2017 Psychiatric No depression 03/13/2017 Constitutional No recent illness 02/10/2017 Constitutional No chills 02/10/2017 Constitutional fatigue 02/10/2017 Constitutional No fever 02/10/2017 Constitutional malaise 02/10/2017 Eyes No blindness 02/10/2017 Ears/Nose/Throat/Neck No dizziness 02/10/2017 Ears/Nose/Throat/Neck nasal allergies 02/10/2017 Ears/Nose/Throat/Neck No nasal discharge 02/10/2017 Cardiovascular No chest pain/pressure 02/10/2017 Cardiovascular No edema 02/10/2017 Cardiovascular No fatigue 02/10/2017 Respiratory No chest congestion 02/10/2017 Respiratory dyspnea on exertion 02/10/2017 Gastrointestinal No abdominal pain 02/10/2017 Musculoskeletal No stiffness 02/10/2017 Musculoskeletal No swelling 02/10/2017 Musculoskeletal No muscle weakness 02/10/2017 Musculoskeletal No myalgias 02/10/2017 Neurologic No alteration of consciousness 02/10/2017 Neurologic No mental status change 02/10/2017 Psychiatric No anxiety 02/10/2017 Psychiatric No depression 02/10/2017 Constitutional No recent illness 01/14/2017 Constitutional fatigue 01/14/2017 Constitutional No fever 01/14/2017 Constitutional malaise 01/14/2017 Eyes No blindness 01/14/2017 Ears/Nose/Throat/Neck nasal allergies 01/14/2017 Ears/Nose/Throat/Neck No nasal discharge 01/14/2017 Cardiovascular No chest pain/pressure 01/14/2017 Respiratory No chest congestion 01/14/2017 Respiratory dyspnea on exertion 01/14/2017 Gastrointestinal No abdominal pain 01/14/2017 Neurologic No alteration of consciousness 01/14/2017 Neurologic No mental status change 01/14/2017 Constitutional No chills 01/14/2017 Cardiovascular No edema 01/14/2017 Ears/Nose/Throat/Neck No dizziness 01/14/2017 Cardiovascular No fatigue 01/14/2017 Musculoskeletal No stiffness 01/14/2017 Musculoskeletal No swelling 01/14/2017 Musculoskeletal No muscle weakness 01/14/2017 Musculoskeletal No myalgias 01/14/2017 Psychiatric No anxiety 01/14/2017 Psychiatric No depression 01/14/2017 Constitutional recent illness 01/07/2017 Constitutional fatigue 01/07/2017 Constitutional No fever 01/07/2017 Constitutional malaise 01/07/2017 Eyes No eye erythema 01/07/2017 Ears/Nose/Throat/Neck nasal allergies 01/07/2017 Ears/Nose/Throat/Neck No nasal discharge 01/07/2017 Cardiovascular No chest pain/pressure 01/07/2017 Respiratory No chest congestion 01/07/2017 Respiratory dyspnea on exertion 01/07/2017 Gastrointestinal No abdominal pain 01/07/2017 Neurologic No alteration of consciousness 01/07/2017 Musculoskeletal joint complaint 01/07/2017 Cardiovascular palpitations 01/07/2017 Ears/Nose/Throat/Neck headache 01/07/2017 Constitutional No recent illness 01/01/2017 Constitutional fatigue 01/01/2017 Constitutional No fever 01/01/2017 Constitutional malaise 01/01/2017 Eyes No eye erythema 01/01/2017 Ears/Nose/Throat/Neck nasal allergies 01/01/2017 Ears/Nose/Throat/Neck No nasal discharge 01/01/2017 Cardiovascular No chest pain/pressure 01/01/2017 Respiratory dyspnea on exertion 01/01/2017 Respiratory No chest congestion 01/01/2017 Gastrointestinal No abdominal pain 01/01/2017 Neurologic No alteration of consciousness 01/01/2017 Neurologic No mental status change 01/01/2017 Constitutional No recent illness 12/12/2016 Constitutional No fever 12/12/2016 Eyes No eye erythema 12/12/2016 Ears/Nose/Throat/Neck No nasal allergies 12/12/2016 Ears/Nose/Throat/Neck No nasal discharge 12/12/2016 Cardiovascular No chest pain/pressure 12/12/2016 Cardiovascular No dyspnea 12/12/2016 Respiratory No dyspnea 12/12/2016 Gastrointestinal No nausea 12/12/2016 Gastrointestinal No vomiting 12/12/2016 Musculoskeletal No joint complaint 12/12/2016 Dermatologic No rash 12/12/2016 Neurologic No alteration of consciousness 12/12/2016 Neurologic No mental status change 12/12/2016 Constitutional recent illness 12/11/2016 Constitutional No chills 12/11/2016 Constitutional No fatigue 12/11/2016 Constitutional No fever 12/11/2016 Constitutional No insomnia 12/11/2016 Constitutional No malaise 12/11/2016 Eyes No blindness 12/11/2016 Eyes No vision change 12/11/2016 Ears/Nose/Throat/Neck No dental pain 12/11/2016 Ears/Nose/Throat/Neck No dizziness 12/11/2016 Ears/Nose/Throat/Neck No dysphagia 12/11/2016 Ears/Nose/Throat/Neck No headache 12/11/2016 Ears/Nose/Throat/Neck No hearing loss 12/11/2016 Ears/Nose/Throat/Neck nasal allergies 12/11/2016 Ears/Nose/Throat/Neck sore throat 12/11/2016 Ears/Nose/Throat/Neck No postnasal drip 12/11/2016 Ears/Nose/Throat/Neck No sinus congestion 12/11/2016 Cardiovascular No chest pain/pressure 12/11/2016 Cardiovascular No dyspnea 12/11/2016 Cardiovascular No edema 12/11/2016 Cardiovascular No exercise intolerance 12/11/2016 Cardiovascular No fatigue 12/11/2016 Cardiovascular No near-syncope/dizziness 12/11/2016 Respiratory No chest tightness 12/11/2016 Respiratory No cough 12/11/2016 Respiratory No dyspnea 12/11/2016 Respiratory No pedal edema 12/11/2016 Gastrointestinal No abdominal pain 12/11/2016 Gastrointestinal No constipation 12/11/2016 Gastrointestinal No diarrhea 12/11/2016 Gastrointestinal No gastroesophageal reflux 12/11/2016 Gastrointestinal No nausea 12/11/2016 Gastrointestinal No vomiting 12/11/2016 Genitourinary/Nephrology No dysuria 12/11/2016 Genitourinary/Nephrology No nocturia 12/11/2016 Genitourinary/Nephrology No urinary incontinence 12/11/2016 Musculoskeletal No stiffness 12/11/2016 Musculoskeletal No swelling 12/11/2016 Musculoskeletal No muscle weakness 12/11/2016 Musculoskeletal No myalgias 12/11/2016 Dermatologic No rash [...] vision change 10/15/2016 Ears/Nose/Throat/Neck No dental pain 10/15/2016 Ears/Nose/Throat/Neck No dizziness 10/15/2016 Ears/Nose/Throat/Neck No dysphagia 10/15/2016 Ears/Nose/Throat/Neck No headache 10/15/2016 Ears/Nose/Throat/Neck No hearing loss 10/15/2016 Ears/Nose/Throat/Neck nasal allergies 10/15/2016 Ears/Nose/Throat/Neck sore throat 10/15/2016 Ears/Nose/Throat/Neck No postnasal drip 10/15/2016 Ears/Nose/Throat/Neck No sinus congestion 10/15/2016 Cardiovascular No chest pain/pressure 10/15/2016 Cardiovascular No dyspnea 10/15/2016 Cardiovascular No edema 10/15/2016 Cardiovascular No exercise intolerance 10/15/2016 Cardiovascular No fatigue 10/15/2016 Cardiovascular No near-syncope/dizziness 10/15/2016 Respiratory No chest tightness 10/15/2016 Respiratory No cough 10/15/2016 Respiratory No dyspnea 10/15/2016 Respiratory No pedal edema 10/15/2016 Gastrointestinal No abdominal pain 10/15/2016 Gastrointestinal No constipation 10/15/2016 Gastrointestinal No diarrhea 10/15/2016 Gastrointestinal No gastroesophageal reflux 10/15/2016 Gastrointestinal No nausea 10/15/2016 Gastrointestinal No vomiting 10/15/2016 Genitourinary/Nephrology No dysuria 10/15/2016 Genitourinary/Nephrology No nocturia 10/15/2016 Genitourinary/Nephrology No urinary incontinence 10/15/2016 Musculoskeletal No stiffness 10/15/2016 Musculoskeletal No swelling 10/15/2016 Musculoskeletal No muscle weakness 10/15/2016 Musculoskeletal No myalgias 10/15/2016 Dermatologic No rash [...] No insomnia 07/17/2016 Cardiovascular No chest pain/pressure 07/17/2016 Cardiovascular No dyspnea 07/17/2016 Cardiovascular No edema 07/17/2016 Cardiovascular No exercise intolerance 07/17/2016 Cardiovascular No fatigue 07/17/2016 Cardiovascular No near-syncope/dizziness 07/17/2016 Respiratory No chest tightness 07/17/2016 Respiratory No cough 07/17/2016 Respiratory No dyspnea 07/17/2016 Respiratory No pedal edema 07/17/2016 Gastrointestinal No abdominal pain 07/17/2016 Gastrointestinal No constipation 07/17/2016 Gastrointestinal No diarrhea 07/17/2016 Gastrointestinal No gastroesophageal reflux 07/17/2016 Gastrointestinal No nausea 07/17/2016 Gastrointestinal No vomiting 07/17/2016 Musculoskeletal stiffness 07/17/2016 Musculoskeletal No swelling 07/17/2016 Musculoskeletal bone fracture 07/17/2016 Musculoskeletal bone pain 07/17/2016 Musculoskeletal joint complaint 07/17/2016 Musculoskeletal No muscle weakness 07/17/2016 Musculoskeletal No myalgias 07/17/2016 Neurologic No dizziness 07/17/2016 Neurologic No headache 07/17/2016 Neurologic No neck pain 07/17/2016 Neurologic No syncope 07/17/2016 Psychiatric anxiety 07/17/2016 Psychiatric depression 07/17/2016 Constitutional No malaise 07/17/2016 Constitutional recent illness 05/15/2016 Constitutional No chills 05/15/2016 Constitutional fatigue 05/15/2016 Constitutional No fever 05/15/2016 Constitutional No insomnia 05/15/2016 Constitutional malaise 05/15/2016 Cardiovascular No chest pain/pressure 05/15/2016 Cardiovascular No dyspnea 05/15/2016 Cardiovascular No edema 05/15/2016 Cardiovascular No exercise intolerance 05/15/2016 Cardiovascular No fatigue 05/15/2016 Cardiovascular No near-syncope/dizziness 05/15/2016 Respiratory No chest tightness 05/15/2016 Respiratory No cough 05/15/2016 Respiratory No dyspnea 05/15/2016 Respiratory No pedal edema 05/15/2016 Gastrointestinal No abdominal pain 05/15/2016 Gastrointestinal No constipation 05/15/2016 Gastrointestinal No diarrhea 05/15/2016 Gastrointestinal No gastroesophageal reflux 05/15/2016 Gastrointestinal No nausea 05/15/2016 Gastrointestinal No vomiting 05/15/2016 Musculoskeletal stiffness 05/15/2016 Musculoskeletal No swelling 05/15/2016 Musculoskeletal bone fracture 05/15/2016 Musculoskeletal bone pain 05/15/2016 Musculoskeletal joint complaint 05/15/2016 Musculoskeletal No muscle weakness 05/15/2016 Musculoskeletal No myalgias 05/15/2016 Neurologic No dizziness 05/15/2016 Neurologic No headache 05/15/2016 Neurologic No neck pain 05/15/2016 Neurologic No syncope 05/15/2016 Psychiatric anxiety 05/15/2016 Psychiatric depression 05/15/2016 Constitutional recent illness 04/23/2016 Constitutional No chills 04/23/2016 Constitutional No fatigue 04/23/2016 Constitutional No fever 04/23/2016 Constitutional No insomnia 04/23/2016 Constitutional No malaise 04/23/2016 Ears/Nose/Throat/Neck No dental pain 04/23/2016 Ears/Nose/Throat/Neck No dizziness 04/23/2016 Ears/Nose/Throat/Neck No dysphagia 04/23/2016 Ears/Nose/Throat/Neck No headache 04/23/2016 Ears/Nose/Throat/Neck No hearing loss 04/23/2016 Ears/Nose/Throat/Neck nasal allergies 04/23/2016 Ears/Nose/Throat/Neck No postnasal drip 04/23/2016 Ears/Nose/Throat/Neck No sinus congestion 04/23/2016 Cardiovascular No chest pain/pressure 04/23/2016 Cardiovascular No dyspnea 04/23/2016 Cardiovascular No edema 04/23/2016 Cardiovascular No exercise intolerance 04/23/2016 Cardiovascular No fatigue 04/23/2016 Cardiovascular No near-syncope/dizziness 04/23/2016 Respiratory No chest tightness 04/23/2016 Respiratory No cough 04/23/2016 Respiratory No dyspnea 04/23/2016 Respiratory No pedal edema 04/23/2016 Gastrointestinal No abdominal pain 04/23/2016 Gastrointestinal No constipation 04/23/2016 Gastrointestinal No diarrhea 04/23/2016 Gastrointestinal No gastroesophageal reflux 04/23/2016 Gastrointestinal No nausea 04/23/2016 Gastrointestinal No vomiting 04/23/2016 Genitourinary/Nephrology No dysuria 04/23/2016 Genitourinary/Nephrology No nocturia 04/23/2016 Genitourinary/Nephrology No urinary incontinence 04/23/2016 Musculoskeletal stiffness 04/23/2016 Musculoskeletal No swelling 04/23/2016 Musculoskeletal No muscle weakness 04/23/2016 Musculoskeletal No myalgias 04/23/2016 Dermatologic No rash 04/23/2016 Dermatologic No sores 04/23/2016 Dermatologic No scar 04/23/2016 Neurologic No dizziness 04/23/2016 Neurologic No headache 04/23/2016 Neurologic No neck pain 04/23/2016 Neurologic No syncope 04/23/2016 Psychiatric anxiety 04/23/2016 Psychiatric depression 04/23/2016 Musculoskeletal joint complaint 04/23/2016 Musculoskeletal bone pain 04/23/2016 Musculoskeletal bone fracture 04/23/2016 Constitutional recent illness 03/14/2016 Constitutional No fever 03/14/2016 Eyes No eye erythema 03/14/2016 Eyes No vision change 03/14/2016 Ears/Nose/Throat/Neck nasal allergies 03/14/2016 Ears/Nose/Throat/Neck postnasal drip 03/14/2016 Ears/Nose/Throat/Neck sinus congestion 03/14/2016 Cardiovascular No chest pain/pressure 03/14/2016 Cardiovascular No dyspnea 03/14/2016 Respiratory cough 03/14/2016 Respiratory No dyspnea 03/14/2016 Gastrointestinal No abdominal pain 03/14/2016 Gastrointestinal No constipation 03/14/2016 Gastrointestinal No diarrhea 03/14/2016 Gastrointestinal No nausea 03/14/2016 Gastrointestinal No vomiting 03/14/2016 Dermatologic No rash 03/14/2016 Dermatologic No sores 03/14/2016 Dermatologic No scar 03/14/2016 Ears/Nose/Throat/Neck nasal discharge 03/14/2016 Respiratory chest congestion 03/14/2016 Respiratory productive sputum 03/14/2016 Musculoskeletal No joint complaint 03/14/2016 Neurologic No alteration of consciousness 03/14/2016 Constitutional recent illness 02/19/2016 Constitutional No fatigue 02/19/2016 Constitutional No fever 02/19/2016 Constitutional No insomnia 02/19/2016 Constitutional No malaise 02/19/2016 Eyes No eye erythema 02/19/2016 Eyes No vision change 02/19/2016 Cardiovascular No chest pain/pressure 02/19/2016 Cardiovascular No dyspnea 02/19/2016 Respiratory No cough 02/19/2016 Gastrointestinal No nausea 02/19/2016 Gastrointestinal No vomiting 02/19/2016 Dermatologic No rash 02/19/2016 Dermatologic No sores 02/19/2016 Dermatologic No scar 02/19/2016 Psychiatric anxiety 02/19/2016 Psychiatric depression 02/19/2016 Ears/Nose/Throat/Neck No nasal allergies 02/19/2016 Ears/Nose/Throat/Neck No nasal discharge 02/19/2016 Respiratory No dyspnea 02/19/2016 Genitourinary/Nephrology flank pain 02/19/2016 Neurologic No alteration of consciousness 02/19/2016 Neurologic No mental status change 02/19/2016 Constitutional recent illness 12/19/2015 Constitutional No chills 12/19/2015 Constitutional No fatigue 12/19/2015 Constitutional No fever 12/19/2015 Constitutional No insomnia 12/19/2015 Constitutional No malaise 12/19/2015 Eyes No blindness 12/19/2015 Eyes No vision change 12/19/2015 Ears/Nose/Throat/Neck No dental pain 12/19/2015 Ears/Nose/Throat/Neck No dizziness 12/19/2015 Ears/Nose/Throat/Neck No dysphagia 12/19/2015 Ears/Nose/Throat/Neck No headache 12/19/2015 Ears/Nose/Throat/Neck No hearing loss 12/19/2015 Ears/Nose/Throat/Neck nasal allergies 12/19/2015 Ears/Nose/Throat/Neck sore throat 12/19/2015 Ears/Nose/Throat/Neck No postnasal drip 12/19/2015 Ears/Nose/Throat/Neck No sinus congestion 12/19/2015 Cardiovascular No chest pain/pressure 12/19/2015 Cardiovascular No dyspnea 12/19/2015 Cardiovascular No edema 12/19/2015 Cardiovascular No exercise intolerance 12/19/2015 Cardiovascular No fatigue 12/19/2015 Cardiovascular No near-syncope/dizziness 12/19/2015 Respiratory No chest tightness 12/19/2015 Respiratory No cough 12/19/2015 Respiratory No dyspnea 12/19/2015 Respiratory No pedal edema 12/19/2015 Gastrointestinal No abdominal pain 12/19/2015 Gastrointestinal No constipation 12/19/2015 Gastrointestinal No diarrhea 12/19/2015 Gastrointestinal No gastroesophageal reflux 12/19/2015 Gastrointestinal No nausea 12/19/2015 Gastrointestinal No vomiting 12/19/2015 Genitourinary/Nephrology No dysuria 12/19/2015 Genitourinary/Nephrology No nocturia 12/19/2015 Genitourinary/Nephrology No urinary incontinence 12/19/2015 Musculoskeletal No stiffness 12/19/2015 Musculoskeletal No swelling 12/19/2015 Musculoskeletal No muscle weakness 12/19/2015 Musculoskeletal No myalgias 12/19/2015 Dermatologic No rash [...] vision change 03/06/2015 Ears/Nose/Throat/Neck No dental pain 03/06/2015 Ears/Nose/Throat/Neck No dizziness 03/06/2015 Ears/Nose/Throat/Neck No dysphagia 03/06/2015 Ears/Nose/Throat/Neck No headache 03/06/2015 Ears/Nose/Throat/Neck No hearing loss 03/06/2015 Ears/Nose/Throat/Neck nasal allergies 03/06/2015 Ears/Nose/Throat/Neck sore throat 03/06/2015 Ears/Nose/Throat/Neck No postnasal drip 03/06/2015 Ears/Nose/Throat/Neck No sinus congestion 03/06/2015 Cardiovascular No chest pain/pressure 03/06/2015 Cardiovascular No dyspnea 03/06/2015 Cardiovascular No edema 03/06/2015 Cardiovascular No exercise intolerance 03/06/2015 Cardiovascular No fatigue 03/06/2015 Cardiovascular No near-syncope/dizziness 03/06/2015 Respiratory No chest tightness 03/06/2015 Respiratory No cough 03/06/2015 Respiratory No dyspnea 03/06/2015 Respiratory No pedal edema 03/06/2015 Gastrointestinal No abdominal pain 03/06/2015 Gastrointestinal No constipation 03/06/2015 Gastrointestinal No diarrhea 03/06/2015 Gastrointestinal No gastroesophageal reflux 03/06/2015 Gastrointestinal No nausea 03/06/2015 Gastrointestinal No vomiting 03/06/2015 Genitourinary/Nephrology No dysuria 03/06/2015 Genitourinary/Nephrology No nocturia 03/06/2015 Genitourinary/Nephrology No urinary incontinence 03/06/2015 Musculoskeletal No stiffness 03/06/2015 Musculoskeletal No swelling 03/06/2015 Musculoskeletal No muscle weakness 03/06/2015 Musculoskeletal No myalgias 03/06/2015 Dermatologic No rash 03/06/2015 Dermatologic No sores 03/06/2015 Dermatologic No scar 03/06/2015 Neurologic No dizziness 03/06/2015 Neurologic No headache 03/06/2015 Neurologic No neck pain 03/06/2015 Neurologic No syncope 03/06/2015 Psychiatric No anxiety 03/06/2015 Psychiatric No depression 03/06/2015 Constitutional No recent illness 02/07/2015 Constitutional No anorexia 02/07/2015 Constitutional No night sweats 02/07/2015 Constitutional No chills 02/07/2015 Constitutional No diaphoresis 02/07/2015 Constitutional fatigue 02/07/2015 Constitutional No fever 02/07/2015 Constitutional insomnia 02/07/2015 Constitutional No malaise 02/07/2015 Constitutional No weight loss 02/07/2015 Constitutional No weight gain 02/07/2015 Eyes No eye discharge 02/07/2015 Eyes No eye erythema 02/07/2015 Ears/Nose/Throat/Neck No dizziness 02/07/2015 Ears/Nose/Throat/Neck No headache 02/07/2015 Ears/Nose/Throat/Neck nasal allergies 02/07/2015 Ears/Nose/Throat/Neck nasal discharge 02/07/2015 Cardiovascular No chest pain/pressure 02/07/2015 Cardiovascular No edema 02/07/2015 Respiratory No chest congestion 02/07/2015 Respiratory cough 02/07/2015 Gastrointestinal gastroesophageal reflux 02/07/2015 Ears/Nose/Throat/Neck sinus congestion 02/07/2015 Gastrointestinal constipation 02/07/2015 Gastrointestinal No anorexia 02/07/2015 Genitourinary/Nephrology No dysuria 02/07/2015 Musculoskeletal No joint complaint 02/07/2015 Dermatologic No rash 02/07/2015 Dermatologic No sores 02/07/2015 Neurologic No alteration of consciousness 02/07/2015 Psychiatric anxiety 02/07/2015 Physical Exam Exam Name System Name Item Name Status Result Effective Dates Notes Full Exam - General 1994 Constitutional general appearance Overall: well developed 03/17/2019 None Full Exam - General 1994 Constitutional general appearance Overall: in no acute distress 03/17/2019 None Full Exam - General 1994 Constitutional general appearance Overall: well nourished 03/17/2019 None Full Exam - General 1994 Eyes conjunctiva/eyelids Overall: conjunctiva clear 03/17/2019 None Full Exam - General 1994 Eyes conjunctiva/eyelids Overall: cornea clear 03/17/2019 None Full Exam - General 1994 Eyes conjunctiva/eyelids Overall: eyelids normal 03/17/2019 None Full Exam - General 1994 Ears/Nose/Throat lips/teeth/gingiva Overall: benign lips 03/17/2019 None Full Exam - General 1994 Ears/Nose/Throat oral cavity/pharynx/larynx Overall: oral mucosa clear 03/17/2019 None Full Exam - General 1994 Ears/Nose/Throat oral cavity/pharynx/larynx Overall: oropharyngeal mucosa clear 03/17/2019 None Full Exam - General 1994 Respiratory respiratory effort/rhythm Overall: no retractions 03/17/2019 None Full Exam - General 1994 Respiratory respiratory effort/rhythm Overall: normal rate 03/17/2019 None Full Exam - General 1994 Cardiovascular auscultation of heart Overall: regular rate 03/17/2019 None Full Exam - General 1994 Cardiovascular auscultation of heart Overall: normal heart sounds 03/17/2019 None Full Exam - General 1994 Musculoskeletal head and neck Overall: head atraumatic 03/17/2019 None Full Exam - General 1994 Neurologic cranial nerves Overall: crainial nerves 2 - 12 grossly intact 03/17/2019 None Full Exam - General 1994 Psychiatric orientation/consciousness Overall: oriented to person, place and time 03/17/2019 None Full Exam - General 1994 Psychiatric mood and affect Overall: normal mood and affect 03/17/2019 None Full Exam - General 1994 Psychiatric appearance Overall: well-groomed, good eye contact 03/17/2019 None Full Exam - General 1994 Respiratory auscultation Diffuse: diminished 03/17/2019 None Full Exam - General 1994 Constitutional general appearance Overall: well developed 12/30/2018 None Full Exam - General 1994 Constitutional general appearance Overall: in no acute distress 12/30/2018 None Full Exam - General 1994 Constitutional general appearance Overall: well nourished 12/30/2018 None Full Exam - General 1994 Eyes conjunctiva/eyelids Overall: conjunctiva clear 12/30/2018 None Full Exam - General 1994 Eyes conjunctiva/eyelids Overall: eyelids normal 12/30/2018 None Full Exam - General 1994 Ears/Nose/Throat lips/teeth/gingiva Overall: benign lips 12/30/2018 None Full Exam - General 1994 Respiratory respiratory effort/rhythm Overall: no retractions 12/30/2018 None Full Exam - General 1994 Respiratory respiratory effort/rhythm Overall: normal rate 12/30/2018 None Full Exam - General 1994 Musculoskeletal head and neck Overall: head atraumatic 12/30/2018 None Full Exam - General 1994 Neurologic cranial nerves Overall: crainial nerves 2 - 12 grossly intact 12/30/2018 None Full Exam - General 1994 Psychiatric orientation/consciousness Overall: oriented to person, place and time 12/30/2018 None Full Exam - General 1994 Psychiatric mood and affect Overall: normal mood and affect 12/30/2018 None Full Exam - General 1994 Psychiatric appearance Overall: well-groomed, good eye contact 12/30/2018 None Full Exam - General 1994 Constitutional general appearance Overall: well developed 12/22/2018 None Full Exam - General 1994 Constitutional general appearance Overall: in no acute distress 12/22/2018 None Full Exam - General 1994 Constitutional general appearance Overall: well nourished 12/22/2018 None Full Exam - General 1994 Eyes conjunctiva/eyelids Overall: conjunctiva clear 12/22/2018 None Full Exam - General 1994 Eyes conjunctiva/eyelids Overall: eyelids normal 12/22/2018 None Full Exam - General 1994 Ears/Nose/Throat otoscopic exam Overall: external auditory canals clear 12/22/2018 None Full Exam - General 1994 Ears/Nose/Throat otoscopic exam Overall: tympanic membranes clear 12/22/2018 None Full Exam - General 1994 Ears/Nose/Throat oral cavity/pharynx/larynx Oral mucosa: moist 12/22/2018 None Full Exam - General 1994 Respiratory auscultation Overall: breath sounds clear bilaterally 12/22/2018 None Full Exam - General 1994 Respiratory auscultation Diffuse: diminished 12/22/2018 None Full Exam - General 1994 Respiratory respiratory effort/rhythm Overall: no retractions 12/22/2018 None Full Exam - General 1994 Respiratory respiratory effort/rhythm Overall: normal rate 12/22/2018 None Full Exam - General 1994 Cardiovascular auscultation of heart Overall: regular rate 12/22/2018 None Full Exam - General 1994 Cardiovascular auscultation of heart Overall: normal heart sounds 12/22/2018 None Full Exam - General 1994 Abdomen abdominal exam Overall: no tenderness 12/22/2018 None Full Exam - General 1994 Abdomen abdominal exam Overall: normal bowel sounds 12/22/2018 None Full Exam - General 1994 Musculoskeletal gait and station Overall: normal gait 12/22/2018 None Full Exam - General 1994 Musculoskeletal gait and station Overall: normal station 12/22/2018 None Full Exam - General 1994 Musculoskeletal head and neck Overall: head atraumatic 12/22/2018 None Full Exam - General 1994 Neurologic cranial nerves Overall: crainial nerves 2 - 12 grossly intact 12/22/2018 None Full Exam - General 1994 Psychiatric orientation/consciousness Overall: oriented to person, place and time 12/22/2018 None Full Exam - General 1994 Psychiatric mood and affect Overall: normal mood and affect 12/22/2018 None Full Exam - General 1994 Psychiatric appearance Overall: well-groomed, good eye contact 12/22/2018 None Full Exam - General 1994 Constitutional general appearance Overall: well developed 09/15/2018 None Full Exam - General 1994 Constitutional general appearance Overall: in no acute distress 09/15/2018 None Full Exam - General 1994 Constitutional general appearance Overall: well nourished 09/15/2018 None Full Exam - General 1994 Eyes conjunctiva/eyelids Overall: conjunctiva clear 09/15/2018 None Full Exam - General 1994 Eyes conjunctiva/eyelids Overall: eyelids normal 09/15/2018 None Full Exam - General 1994 Ears/Nose/Throat lips/teeth/gingiva Overall: benign lips 09/15/2018 None Full Exam - General 1994 Respiratory auscultation Overall: breath sounds clear bilaterally 09/15/2018 None Full Exam - General 1994 Respiratory auscultation Diffuse: diminished 09/15/2018 None Full Exam - General 1994 Respiratory respiratory effort/rhythm Overall: no retractions 09/15/2018 None Full Exam - General 1994 Respiratory respiratory effort/rhythm Overall: normal rate 09/15/2018 None Full Exam - General 1994 Cardiovascular auscultation of heart Overall: regular rate 09/15/2018 None Full Exam - General 1994 Cardiovascular auscultation of heart Overall: normal heart sounds 09/15/2018 None Full Exam - General 1994 Abdomen abdominal exam Overall: no tenderness 09/15/2018 None Full Exam - General 1994 Abdomen abdominal exam Overall: normal bowel sounds 09/15/2018 None Full Exam - General 1994 Musculoskeletal gait and station Overall: normal gait 09/15/2018 None Full Exam - General 1994 Musculoskeletal gait and station Overall: normal station 09/15/2018 None Full Exam - General 1994 Musculoskeletal head and neck Overall: head atraumatic 09/15/2018 None Full Exam - General 1994 Neurologic cranial nerves Overall: crainial nerves 2 - 12 grossly intact 09/15/2018 None Full Exam - General 1994 Psychiatric orientation/consciousness Overall: oriented to person, place and time 09/15/2018 None Full Exam - General 1994 Psychiatric mood and affect Overall: normal mood and affect 09/15/2018 None Full Exam - General 1994 Psychiatric appearance Overall: well-groomed, good eye contact 09/15/2018 None Full Exam - Cardiology Respiratory auscultation Diffuse: expiratory wheezes 09/15/2018 None Full Exam - General 1994 Constitutional general appearance Overall: well developed 08/18/2018 None Full Exam - General 1994 Constitutional general appearance Overall: in no acute distress 08/18/2018 None Full Exam - General 1994 Constitutional general appearance Overall: well nourished 08/18/2018 None Full Exam - General 1994 Eyes conjunctiva/eyelids Overall: conjunctiva clear 08/18/2018 None Full Exam - General 1994 Eyes conjunctiva/eyelids Overall: eyelids normal 08/18/2018 None Full Exam - General 1994 Ears/Nose/Throat otoscopic exam Overall: external auditory canals clear 08/18/2018 None Full Exam - General 1994 Ears/Nose/Throat otoscopic exam Overall: tympanic membranes clear 08/18/2018 None Full Exam - General 1994 Ears/Nose/Throat oral cavity/pharynx/larynx Oral mucosa: moist 08/18/2018 None Full Exam - General 1994 Respiratory auscultation Overall: breath sounds clear bilaterally 08/18/2018 None Full Exam - General 1994 Respiratory auscultation Diffuse: diminished 08/18/2018 None Full Exam - General 1994 Respiratory respiratory effort/rhythm Overall: no retractions 08/18/2018 None Full Exam - General 1994 Respiratory respiratory effort/rhythm Overall: normal rate 08/18/2018 None Full Exam - General 1994 Cardiovascular auscultation of heart Overall: regular rate 08/18/2018 None Full Exam - General 1994 Cardiovascular auscultation of heart Overall: normal heart sounds 08/18/2018 None Full Exam - General 1994 Abdomen abdominal exam Overall: no tenderness 08/18/2018 None Full Exam - General 1994 Abdomen abdominal exam Overall: normal bowel sounds 08/18/2018 None Full Exam - General 1994 Musculoskeletal gait and station Overall: normal gait 08/18/2018 None Full Exam - General 1994 Musculoskeletal gait and station Overall: normal station 08/18/2018 None Full Exam - General 1994 Musculoskeletal head and neck Overall: head atraumatic 08/18/2018 None Full Exam - General 1994 Neurologic cranial nerves Overall: crainial nerves 2 - 12 grossly intact 08/18/2018 None Full Exam - General 1994 Psychiatric orientation/consciousness Overall: oriented to person, place and time 08/18/2018 None Full Exam - General 1994 Psychiatric mood and affect Overall: normal mood and affect 08/18/2018 None Full Exam - General 1994 Psychiatric appearance Overall: well-groomed, good eye contact 08/18/2018 None Full Exam - General 1994 Constitutional general appearance Overall: well developed 08/04/2018 None Full Exam - General 1994 Constitutional general appearance Overall: in no acute distress 08/04/2018 None Full Exam - General 1994 Constitutional general appearance Overall: well nourished 08/04/2018 None Full Exam - General 1994 Eyes conjunctiva/eyelids Overall: conjunctiva clear 08/04/2018 None Full Exam - General 1994 Eyes conjunctiva/eyelids Overall: eyelids normal 08/04/2018 None Full Exam - General 1994 Respiratory auscultation Overall: breath sounds clear bilaterally 08/04/2018 None Full Exam - General 1994 Respiratory auscultation Diffuse: diminished 08/04/2018 None Full Exam - General 1994 Respiratory respiratory effort/rhythm Overall: no retractions 08/04/2018 None Full Exam - General 1994 Respiratory respiratory effort/rhythm Overall: normal rate 08/04/2018 None Full Exam - General 1994 Cardiovascular auscultation of heart Overall: regular rate 08/04/2018 None Full Exam - General 1994 Cardiovascular auscultation of heart Overall: normal heart sounds 08/04/2018 None Full Exam - General 1994 Abdomen abdominal exam Overall: no tenderness 08/04/2018 None Full Exam - General 1994 Abdomen abdominal exam Overall: normal bowel sounds 08/04/2018 None Full Exam - General 1994 Musculoskeletal gait and station Overall: normal gait 08/04/2018 None Full Exam - General 1994 Musculoskeletal gait and station Overall: normal station 08/04/2018 None Full Exam - General 1994 Musculoskeletal head and neck Overall: head atraumatic 08/04/2018 None Full Exam - General 1994 Neurologic cranial nerves Overall: crainial nerves 2 - 12 grossly intact 08/04/2018 None Full Exam - General 1994 Psychiatric orientation/consciousness Overall: oriented to person, place and time 08/04/2018 None Full Exam - General 1994 Psychiatric mood and affect Overall: normal mood and affect 08/04/2018 None Full Exam - General 1994 Psychiatric appearance Overall: well-groomed, good eye contact 08/04/2018 None Full Exam - General 1994 Ears/Nose/Throat oral cavity/pharynx/larynx Oral mucosa: moist 08/04/2018 None Full Exam - General 1994 Ears/Nose/Throat otoscopic exam Overall: external auditory canals clear 08/04/2018 None Full Exam - General 1994 Ears/Nose/Throat otoscopic exam Overall: tympanic membranes clear 08/04/2018 None Full Exam - General 1994 Constitutional general appearance Overall: well developed 07/22/2018 None Full Exam - General 1994 Constitutional general appearance Overall: in no acute distress 07/22/2018 None Full Exam - General 1994 Constitutional general appearance Overall: well nourished 07/22/2018 None Full Exam - General 1994 Eyes conjunctiva/eyelids Overall: conjunctiva clear 07/22/2018 None Full Exam - General 1994 Eyes conjunctiva/eyelids Overall: eyelids normal 07/22/2018 None Full Exam - General 1994 Ears/Nose/Throat lips/teeth/gingiva Overall: benign lips 07/22/2018 None Full Exam - General 1994 Ears/Nose/Throat oral cavity/pharynx/larynx Overall: oral mucosa clear 07/22/2018 None Full Exam - General 1994 Respiratory auscultation Overall: breath sounds clear bilaterally 07/22/2018 None Full Exam - General 1994 Respiratory auscultation Diffuse: diminished 07/22/2018 None Full Exam - General 1994 Respiratory respiratory effort/rhythm Overall: no retractions 07/22/2018 None Full Exam - General 1994 Respiratory respiratory effort/rhythm Overall: normal rate 07/22/2018 None Full Exam - General 1994 Cardiovascular auscultation of heart Overall: regular rate 07/22/2018 None Full Exam - General 1994 Cardiovascular auscultation of heart Overall: normal heart sounds 07/22/2018 None Full Exam - General 1994 Abdomen abdominal exam Overall: no tenderness 07/22/2018 None Full Exam - General 1994 Abdomen abdominal exam Overall: normal bowel sounds 07/22/2018 None Full Exam - General 1994 Musculoskeletal gait and station Overall: normal gait 07/22/2018 None Full Exam - General 1994 Musculoskeletal gait and station Overall: normal station 07/22/2018 None Full Exam - General 1994 Musculoskeletal head and neck Overall: head atraumatic 07/22/2018 None Full Exam - General 1994 Neurologic cranial nerves Overall: crainial nerves 2 - 12 grossly intact 07/22/2018 None Full Exam - General 1994 Psychiatric orientation/consciousness Overall: oriented to person, place and time 07/22/2018 None Full Exam - General 1994 Psychiatric mood and affect Overall: normal mood and affect 07/22/2018 None Full Exam - General 1994 Psychiatric appearance Overall: well-groomed, good eye contact 07/22/2018 None Full Exam - General 1994 Constitutional general appearance Overall: well developed 04/21/2018 None Full Exam - General 1994 Constitutional general appearance Overall: in no acute distress 04/21/2018 None Full Exam - General 1994 Constitutional general appearance Overall: well nourished 04/21/2018 None Full Exam - General 1994 Eyes conjunctiva/eyelids Overall: conjunctiva clear 04/21/2018 None Full Exam - General 1994 Eyes conjunctiva/eyelids Overall: eyelids normal 04/21/2018 None Full Exam - General 1994 Ears/Nose/Throat lips/teeth/gingiva Overall: benign lips 04/21/2018 None Full Exam - General 1994 Respiratory auscultation Overall: breath sounds clear bilaterally 04/21/2018 None Full Exam - General 1994 Respiratory auscultation Diffuse: diminished 04/21/2018 None Full Exam - General 1994 Respiratory respiratory effort/rhythm Overall: no retractions 04/21/2018 None Full Exam - General 1994 Respiratory respiratory effort/rhythm Overall: normal rate 04/21/2018 None Full Exam - General 1994 Cardiovascular auscultation of heart Overall: regular rate 04/21/2018 None Full Exam - General 1994 Cardiovascular auscultation of heart Overall: normal heart sounds 04/21/2018 None Full Exam - General 1994 Abdomen abdominal exam Overall: no tenderness 04/21/2018 None Full Exam - General 1994 Abdomen abdominal exam Overall: normal bowel sounds 04/21/2018 None Full Exam - General 1994 Musculoskeletal gait and station Overall: normal gait 04/21/2018 None Full Exam - General 1994 Musculoskeletal gait and station Overall: normal station 04/21/2018 None Full Exam - General 1994 Musculoskeletal head and neck Overall: head atraumatic 04/21/2018 None Full Exam - General 1994 Neurologic cranial nerves Overall: crainial nerves 2 - 12 grossly intact 04/21/2018 None Full Exam - General 1994 Psychiatric orientation/consciousness Overall: oriented to person, place and time 04/21/2018 None Full Exam - General 1994 Psychiatric mood and affect Overall: normal mood and affect 04/21/2018 None Full Exam - General 1994 Psychiatric appearance Overall: well-groomed, good eye contact 04/21/2018 None Full Exam - General 1994 Ears/Nose/Throat oral cavity/pharynx/larynx Oral mucosa: thrush 04/21/2018 None Full Exam - General 1994 Constitutional general appearance Overall: well developed 04/09/2018 None Full Exam - General 1994 Constitutional general appearance Overall: in no acute distress 04/09/2018 None Full Exam - General 1994 Constitutional general appearance Overall: well nourished 04/09/2018 None Full Exam - General 1994 Eyes conjunctiva/eyelids Overall: conjunctiva clear 04/09/2018 None Full Exam - General 1994 Eyes conjunctiva/eyelids Overall: eyelids normal 04/09/2018 None Full Exam - General 1994 Ears/Nose/Throat lips/teeth/gingiva Overall: benign lips 04/09/2018 None Full Exam - General 1994 Ears/Nose/Throat oral cavity/pharynx/larynx Overall: oral mucosa clear 04/09/2018 None Full Exam - General 1994 Respiratory respiratory effort/rhythm Overall: no retractions 04/09/2018 None Full Exam - General 1994 Respiratory respiratory effort/rhythm Overall: normal rate 04/09/2018 None Full Exam - General 1994 Cardiovascular extremities Cyanosis present: fingers 04/09/2018 None Full Exam - General 1994 Cardiovascular extremities Cold: fingers 04/09/2018 None Full Exam - General 1994 Cardiovascular auscultation of heart Overall: regular rate 04/09/2018 None Full Exam - General 1994 Cardiovascular auscultation of heart Overall: normal heart sounds 04/09/2018 None Full Exam - General 1994 Abdomen abdominal exam Overall: no tenderness 04/09/2018 None Full Exam - General 1994 Abdomen abdominal exam Overall: normal bowel sounds 04/09/2018 None Full Exam - General 1994 Musculoskeletal head and neck Overall: head atraumatic 04/09/2018 None Full Exam - General 1994 Neurologic cranial nerves Overall: crainial nerves 2 - 12 grossly intact 04/09/2018 None Full Exam - General 1994 Psychiatric orientation/consciousness Overall: oriented to person, place and time 04/09/2018 None Full Exam - General 1994 Psychiatric mood and affect Overall: normal mood and affect 04/09/2018 None Full Exam - General 1994 Psychiatric appearance Overall: well-groomed, good eye contact 04/09/2018 None Full Exam - General 1994 Respiratory auscultation Diffuse: expiratory wheezes 04/09/2018 None Full Exam - General 1994 Constitutional general appearance Overall: well developed 01/19/2018 None Full Exam - General 1994 Constitutional general appearance Overall: in no acute distress 01/19/2018 None Full Exam - General 1994 Constitutional general appearance Overall: well nourished 01/19/2018 None Full Exam - General 1994 Eyes conjunctiva/eyelids Overall: conjunctiva clear 01/19/2018 None Full Exam - General 1994 Eyes conjunctiva/eyelids Overall: eyelids normal 01/19/2018 None Full Exam - General 1994 Ears/Nose/Throat lips/teeth/gingiva Overall: benign lips 01/19/2018 None Full Exam - General 1994 Ears/Nose/Throat oral cavity/pharynx/larynx Overall: oral mucosa clear 01/19/2018 None Full Exam - General 1994 Respiratory auscultation Overall: breath sounds clear bilaterally 01/19/2018 None Full Exam - General 1994 Respiratory auscultation Diffuse: diminished 01/19/2018 None Full Exam - General 1994 Respiratory respiratory effort/rhythm Overall: no retractions 01/19/2018 None Full Exam - General 1994 Respiratory respiratory effort/rhythm Overall: normal rate 01/19/2018 None Full Exam - General 1994 Cardiovascular auscultation of heart Overall: regular rate 01/19/2018 None Full Exam - General 1994 Cardiovascular auscultation of heart Overall: normal heart sounds 01/19/2018 None Full Exam - General 1994 Abdomen abdominal exam Overall: no tenderness 01/19/2018 None Full Exam - General 1994 Abdomen abdominal exam Overall: normal bowel sounds 01/19/2018 None Full Exam - General 1994 Musculoskeletal gait and station Overall: normal gait 01/19/2018 None Full Exam - General 1994 Musculoskeletal gait and station Overall: normal station 01/19/2018 None Full Exam - General 1994 Musculoskeletal head and neck Overall: head atraumatic 01/19/2018 None Full Exam - General 1994 Neurologic cranial nerves Overall: crainial nerves 2 - 12 grossly intact 01/19/2018 None Full Exam - General 1994 Psychiatric orientation/consciousness Overall: oriented to person, place and time 01/19/2018 None Full Exam - General 1994 Psychiatric mood and affect Overall: normal mood and affect 01/19/2018 None Full Exam - General 1994 Psychiatric appearance Overall: well-groomed, good eye contact 01/19/2018 None Full Exam - General 1994 Constitutional general appearance Overall: well developed 12/18/2017 None Full Exam - General 1994 Constitutional general appearance Overall: in no acute distress 12/18/2017 None Full Exam - General 1994 Constitutional general appearance Overall: well nourished 12/18/2017 None Full Exam - General 1994 Eyes conjunctiva/eyelids Overall: conjunctiva clear 12/18/2017 None Full Exam - General 1994 Eyes conjunctiva/eyelids Overall: eyelids normal 12/18/2017 None Full Exam - General 1994 Ears/Nose/Throat lips/teeth/gingiva Overall: benign lips 12/18/2017 None Full Exam - General 1994 Respiratory respiratory effort/rhythm Overall: no retractions 12/18/2017 None Full Exam - General 1994 Respiratory respiratory effort/rhythm Overall: normal rate 12/18/2017 None Full Exam - General 1994 Musculoskeletal head and neck Overall: head atraumatic 12/18/2017 None Full Exam - General 1994 Neurologic cranial nerves Overall: crainial nerves 2 - 12 grossly intact 12/18/2017 None Full Exam - General 1994 Psychiatric orientation/consciousness Overall: oriented to person, place and time 12/18/2017 None Full Exam - General 1994 Psychiatric mood and affect Overall: normal mood and affect 12/18/2017 None Full Exam - General 1994 Psychiatric appearance Overall: well-groomed, good eye contact 12/18/2017 None Full Exam - General 1994 Constitutional general appearance Overall: well developed 10/16/2017 None Full Exam - General 1994 Constitutional general appearance Overall: in no acute distress 10/16/2017 None Full Exam - General 1994 Constitutional general appearance Overall: well nourished 10/16/2017 None Full Exam - General 1994 Eyes conjunctiva/eyelids Overall: conjunctiva clear 10/16/2017 None Full Exam - General 1994 Eyes conjunctiva/eyelids Overall: eyelids normal 10/16/2017 None Full Exam [...] 09/03/2017 None Full Exam - Orthopedics Eyes conjunctiva/eyelids Overall: conjunctiva clear 09/03/2017 None Full Exam - Orthopedics Eyes conjunctiva/eyelids Overall: eyelids normal 09/03/2017 None Full Exam [...] None Full Exam - General 1994 Eyes conjunctiva/eyelids Overall: conjunctiva clear 07/31/2017 None Full Exam - General 1994 Eyes conjunctiva/eyelids Overall: eyelids normal 07/31/2017 None Full Exam [...] Exam - Orthopedics Respiratory respiratory effort/rhythm Overall: normal, symmetric chest expansion 06/16/2017 None Full Exam [...] None Full Exam - General 1994 Eyes conjunctiva/eyelids Overall: conjunctiva clear 05/28/2017 None Full Exam - General 1994 Eyes conjunctiva/eyelids Overall: eyelids normal 05/28/2017 None Full Exam - General 1994 Ears/Nose/Throat lips/teeth/gingiva Overall: benign lips 05/28/2017 None Full Exam - General 1994 Ears/Nose/Throat oral cavity/pharynx/larynx Overall: oral mucosa clear 05/28/2017 None Full Exam - General 1995 Respiratory auscultation Overall: breath sounds clear bilaterally [...] None Full Exam - General 1994 Eyes conjunctiva/eyelids Eyelid: contusion 05/28/2017 None Full Exam - [...] None Full Exam - General 1994 Eyes conjunctiva/eyelids Overall: conjunctiva clear 05/05/2017 None Full Exam - General 1994 Eyes conjunctiva/eyelids Overall: eyelids normal 05/05/2017 None Full Exam [...] None Full Exam - General 1994 Eyes conjunctiva/eyelids Overall: conjunctiva clear 03/13/2017 None Full Exam - General 1994 Eyes conjunctiva/eyelids Overall: eyelids normal 03/13/2017 None Full Exam [...] None Full Exam - General 1994 Eyes conjunctiva/eyelids Overall: conjunctiva clear 02/10/2017 None Full Exam - General 1994 Eyes conjunctiva/eyelids Overall: eyelids normal 02/10/2017 None Full Exam [...] None Full Exam - General 1994 Eyes conjunctiva/eyelids Overall: conjunctiva clear 01/14/2017 None Full Exam - General 1994 Eyes conjunctiva/eyelids Overall: eyelids normal 01/14/2017 None Full Exam [...] None Full Exam - General 1994 Eyes conjunctiva/eyelids Overall: conjunctiva clear 01/07/2017 None Full Exam - General 1994 Eyes conjunctiva/eyelids Overall: eyelids normal 01/07/2017 None Full Exam [...] None Full Exam - General 1994 Eyes conjunctiva/eyelids Overall: conjunctiva clear 01/01/2017 None Full Exam - General 1994 Eyes conjunctiva/eyelids Overall: eyelids normal 01/01/2017 None Full Exam [...] None Full Exam - General 1994 Eyes conjunctiva/eyelids Overall: conjunctiva clear 12/12/2016 None Full Exam - General 1994 Eyes conjunctiva/eyelids Overall: eyelids normal 12/12/2016 None Full Exam [...] None Full Exam - General 1994 Eyes conjunctiva/eyelids Overall: conjunctiva clear 12/11/2016 None Full Exam - General 1994 Eyes conjunctiva/eyelids Overall: cornea clear 12/11/2016 None Full Exam - General 1994 Eyes conjunctiva/eyelids Overall: eyelids normal 12/11/2016 None Full Exam [...] General 1994 Ears/Nose/Throat otoscopic exam Tympanic membrane: air-fluid level 12/11/2016 None Full Exam - General [...] None Full Exam - General 1994 Eyes conjunctiva/eyelids Overall: conjunctiva clear 10/15/2016 None Full Exam - General 1994 Eyes conjunctiva/eyelids Overall: cornea clear 10/15/2016 None Full Exam - General 1994 Eyes conjunctiva/eyelids Overall: eyelids normal 10/15/2016 None Full Exam [...] General 1994 Ears/Nose/Throat otoscopic exam Tympanic membrane: air-fluid level 10/15/2016 None Full Exam - General [...] None Full Exam - General 1994 Eyes conjunctiva/eyelids Overall: conjunctiva clear 07/17/2016 None Full Exam - General 1994 Eyes conjunctiva/eyelids Overall: cornea clear 07/17/2016 None Full Exam - General 1994 Eyes conjunctiva/eyelids Overall: eyelids normal 07/17/2016 None Full Exam [...] General 1994 Ears/Nose/Throat otoscopic exam Tympanic membrane: air-fluid level 07/17/2016 None Full Exam - General [...] None Full Exam - General 1994 Eyes conjunctiva/eyelids Overall: conjunctiva clear 05/15/2016 None Full Exam - General 1994 Eyes conjunctiva/eyelids Overall: cornea clear 05/15/2016 None Full Exam - General 1994 Eyes conjunctiva/eyelids Overall: eyelids normal 05/15/2016 None Full Exam [...] General 1994 Ears/Nose/Throat otoscopic exam Tympanic membrane: air-fluid level 05/15/2016 None Full Exam - General [...] None Full Exam - General 1994 Eyes conjunctiva/eyelids Overall: conjunctiva clear 04/23/2016 None Full Exam - General 1994 Eyes conjunctiva/eyelids Overall: cornea clear 04/23/2016 None Full Exam - General 1994 Eyes conjunctiva/eyelids Overall: eyelids normal 04/23/2016 None Full Exam [...] General 1994 Ears/Nose/Throat otoscopic exam Tympanic membrane: air-fluid level 04/23/2016 None Full Exam - General [...] None Full Exam - General 1994 Eyes conjunctiva/eyelids Overall: conjunctiva clear 03/14/2016 None Full Exam - General 1994 Eyes conjunctiva/eyelids Overall: cornea clear 03/14/2016 None Full Exam - General 1994 Eyes conjunctiva/eyelids Overall: eyelids normal 03/14/2016 None Full Exam [...] General 1994 Ears/Nose/Throat otoscopic exam Tympanic membrane: air-fluid level 03/14/2016 None Full Exam - General [...] None Full Exam - General 1994 Eyes conjunctiva/eyelids Overall: conjunctiva clear 02/19/2016 None Full Exam - General 1994 Eyes conjunctiva/eyelids Overall: cornea clear 02/19/2016 None Full Exam - General 1994 Eyes conjunctiva/eyelids Overall: eyelids normal 02/19/2016 None Full Exam [...] None Full Exam - General 1994 Eyes conjunctiva/eyelids Overall: conjunctiva clear 12/19/2015 None Full Exam - General 1994 Eyes conjunctiva/eyelids Overall: cornea clear 12/19/2015 None Full Exam - General 1994 Eyes conjunctiva/eyelids Overall: eyelids normal 12/19/2015 None Full Exam [...] General 1994 Ears/Nose/Throat otoscopic exam Tympanic membrane: air-fluid level 12/19/2015 None Full Exam - General [...] None Full Exam - General 1994 Eyes conjunctiva/eyelids Overall: conjunctiva clear 03/06/2015 None Full Exam - General 1994 Eyes conjunctiva/eyelids Overall: cornea clear 03/06/2015 None Full Exam - General 1994 Eyes conjunctiva/eyelids Overall: eyelids normal 03/06/2015 None Full Exam [...] General 1994 Ears/Nose/Throat otoscopic exam Tympanic membrane: air-fluid level 03/06/2015 None Full Exam - General [...] None Full Exam - General 1994 Eyes conjunctiva/eyelids Overall: conjunctiva clear 02/07/2015 None Full Exam - General 1994 Eyes conjunctiva/eyelids Overall: eyelids normal 02/07/2015 None Full Exam - General 1994 Eyes conjunctiva/eyelids Overall: cornea clear 02/07/2015 None Full Exam - General 1994 Eyes pupils and irises Overall: pupils equal, round, reactive to light and accomodation 02/07/2015 None Full Exam - General 1994 Respiratory auscultation Basilar: diminished 02/07/2015 None Procedures Procedure Codes Date PPPS, SUBSEQ VISIT CPT- 4: G0439 12/30/2018 THER/PROPH/DIAG INJ SC/IM CPT-4: 46712 12/22/2018 VITAMIN B12 INJECTION CPT- 4: J3420 12/22/2018 THER/PROPH/DIAG INJ SC/IM CPT-4: 45111 10/01/2018 VITAMIN B12 INJECTION CPT- 4: J3420 10/01/2018 THER/PROPH/DIAG INJ SC/IM CPT-4: [id number] 09/15/2018 VITAMIN B12 INJECTION CPT- 4: J3420 09/15/2018 TRIAMCINOLONE ACET INJ NOS CPT-4: J3301 09/15/2018 THER/PROPH/DIAG INJ SC/IM CPT-4: 87233 08/04/2018 VITAMIN B12 INJECTION CPT- 4: J3420 08/04/2018 THER/PROPH/DIAG INJ SC/IM CPT-4: 50452 07/16/2018 VITAMIN B12 INJECTION CPT- 4: J3420 07/16/2018 THER/PROPH/DIAG INJ SC/IM CPT-4: 69944 07/01/2018 VITAMIN B12 INJECTION CPT- 4: J3420 07/01/2018 ADMIN INFLUENZA VIRUS VAC CPT-4: G0008 06/25/2018 FLU VACC PRSV FREE INC ANTIG Formatting Model/CDA Sections, Assigned to/Miranda Ayala CPT-4: [id number] 06/25/2018 THER/PROPH/DIAG INJ SC/IM CPT-4: 54838 06/15/2018 VITAMIN B12 INJECTION CPT- 4: J3420 06/15/2018 THER/PROPH/DIAG INJ SC/IM CPT-4: 03252 06/02/2018 VITAMIN B12 INJECTION CPT- 4: J3420 06/02/2018 THER/PROPH/DIAG INJ SC/IM CPT-4: 00481 05/21/2018 VITAMIN B12 INJECTION CPT- 4: J3420 05/21/2018 TRIAMCINOLONE ACET INJ NOS CPT-4: J3301 04/09/2018 PPPS, SUBSEQ VISIT CPT- 4: G0439 12/18/2017 TRIAMCINOLONE ACET INJ NOS CPT-4: J3301 10/16/2017 DRAIN/INJECT JOINT/BURSA CPT-4: 57143 10/16/2017 PRESCRIP TRANSMIT VIA ERX SY CPT-4: G8553 05/05/2017 PRESCRIP TRANSMIT VIA ERX SY CPT-4: G8553 01/14/2017 PPPS, SUBSEQ VISIT CPT- 4: G0439 12/12/2016 PRESCRIP TRANSMIT VIA ERX SY CPT-4: G8553 10/15/2016 ADMIN PNEUMOCOCCAL VACCINE SNOMED CT: [id number] CPT-4: G0009 08/28/2016 Pneumococcal Polysaccharide Vaccine, 23-Valent, Ad CPT-4: 97026 08/28/2016 PRESCRIP TRANSMIT VIA ERX SY CPT-4: G8553 03/14/2016 PRESCRIP TRANSMIT VIA ERX SY CPT-4: G8553 12/19/2015 THER/PROPH/DIAG INJ SC/IM CPT-4: 88797 02/07/2015 TRIAMCINOLONE ACET INJ NOS CPT-4: J3301 02/07/2015 Vital Signs Date Vital 03/17/2019 Blood Pressure 1: 122/74 Code: 8480-6 BMI: 23.1 Code: 54456-5 Heart Rate 1: 62 bpm Height: 5'1" SpO2: 94% Weight: 122 lbs 12/30/2018 Blood Pressure 1: 112/68 Code: 8480-6 BMI: 24.0 Code: 51280-8 Heart Rate 1: 66 bpm Height: 5'1" SpO2: 96% Weight: 127 lbs 12/22/2018 Blood Pressure 1: 110/72 Code: 8480-6 BMI: 24.0 Code: 49174-2 Heart Rate 1: 64 bpm Height: 5'1" SpO2: 95% Weight: 127 lbs 09/15/2018 Blood Pressure 1: 106/70 Code: 8480-6 BMI: 24.9 Code: 03470-1 Heart Rate 1: 74 bpm Height: 5'1" SpO2: 95% Weight: 132 lbs 08/18/2018 Blood Pressure 1: 128/70 Code: 8480-6 BMI: 25.1 Code: 47133-2 Heart Rate 1: 74 bpm Height: 5'1" SpO2: 95% Weight: 133 lbs 08/04/2018 Blood Pressure 1: 120/80 Code: 8480-6 Blood Pressure 1: 122/80 Code: 8480-6 Blood Pressure 2: 120/82 Code: 8480-6 BMI: 25.5 Code: 52344-6 Heart Rate 1: 63 bpm Heart Rate 1: 67 bpm Height: 5'1" Weight: 135 lbs Weight: 07/22/2018 Blood Pressure 1: 120/82 Code: 8480-6 BMI: 24.9 Code: 99720-0 Heart Rate 1: 64 bpm Height: 5'1" SpO2: 95% Weight: 132 lbs 04/21/2018 Blood Pressure 1: 108/70 Code: 8480-6 BMI: 24.4 Code: 13309-8 Heart Rate 1: 62 bpm Height: 5'1" SpO2: 94% Weight: 129 lbs 04/09/2018 Blood Pressure 1: 138/86 Code: 8480-6 BMI: 25.5 Code: 84755-2 Heart Rate 1: 64 bpm Height: 5'1" SpO2: 99% Temperature: 36.4 (C) / 97.5 (F) Weight: 135 lbs 01/19/2018 Blood Pressure 1: 128/76 Code: 8480-6 BMI: 25.9 Code: 14301-7 Heart Rate 1: 65 bpm Height: 5'1" SpO2: 98% Weight: 137 lbs 12/18/2017 Blood Pressure 1: 144/82 Code: 8480-6 BMI: 26.1 Code: 41185-1 Heart Rate 1: 57 bpm Height: 5'1" SpO2: 97% Waist Measure (cm): 74 cm Weight: 138 lbs 10/16/2017 Blood Pressure 1: 142/88 Code: 8480-6 BMI: 25.5 Code: 36724-0 Heart Rate 1: 63 bpm Height: 5'1" SpO2: 97% Weight: 135 lbs 09/03/2017 Blood Pressure 1: 144/90 Code: 8480-6 BMI: 26.3 Code: 01688-6 Heart Rate 1: 91 bpm Height: 5'1" SpO2: 96% Weight: 139 lbs 07/31/2017 Blood Pressure 1: 136/90 Code: 8480-6 BMI: 26.3 Code: 42123-9 Height: 5'1" Weight: 139 lbs 07/18/2017 Blood Pressure 1: 136/84 Code: 8480-6 06/16/2017 Blood Pressure 1: 136/84 Code: 8480-6 BMI: 26.5 Code: 72556-0 Heart Rate 1: 72 bpm Height: 5'1" SpO2: 97% Weight: 140 lbs 05/28/2017 Blood Pressure 1: 138/78 Code: 8480-6 BMI: 26.1 Code: 33343-9 Heart Rate 1: 70 bpm Height: 5'1" SpO2: 98% Weight: 138 lbs 05/05/2017 Blood Pressure 1: 140/86 Code: 8480-6 BMI: 25.3 Code: 07271-8 Heart Rate 1: 66 bpm Height: 5'1" SpO2: 99% Weight: 134 lbs 03/13/2017 Blood Pressure 1: 126/74 Code: 8480-6 BMI: 25.3 Code: 57839-6 Heart Rate 1: 73 bpm Height: 5'1" SpO2: 98% Weight: 134 lbs 02/10/2017 Blood Pressure 1: 148/88 Code: 8480-6 BMI: 25.9 Code: 77925-4 Heart Rate 1: 84 bpm Height: 5'1" SpO2: 97% Weight: 137 lbs 01/14/2017 Blood Pressure 1: 134/86 Code: 8480-6 BMI: 25.7 Code: 49819-9 Heart Rate 1: 83 bpm Height: 5'1" SpO2: 95% Weight: 136 lbs 01/07/2017 Blood Pressure 1: 136/88 Code: 8480-6 BMI: 25.1 Code: 00472-6 Heart Rate 1: 86 bpm Height: 5'1" SpO2: 94% Weight: 133 lbs 01/02/2017 Blood Pressure 1: 122/68 Code: 8480-6 Blood Pressure 2: 116/78 Code: 8480-6 01/01/2017 Blood Pressure 1: 90/52 Code: 8480-6 BMI: 25.1 Code: 63021- 5 Heart Rate 1: 86 bpm Height: 5'1" SpO2: 99% Weight: 133 lbs 12/20/2016 Blood Pressure 1: 120/76 Code: 8480-6 12/12/2016 Blood Pressure 1: 130/72 Code: 8480-6 BMI: 24.8 Code: 38722-4 Heart Rate 1: 62 bpm Height: 5'1" SpO2: 98% Waist Measure (cm): 79 cm Weight: 131 lbs 12/11/2016 Blood Pressure 1: 132/70 Code: 8480-6 BMI: 24.8 Code: 30234-7 Heart Rate 1: 60 bpm Height: 5'1" Weight: 131 lbs 10/15/2016 Blood Pressure 1: 108/66 Code: 8480-6 BMI: 24.8 Code: 44093-9 Heart Rate 1: 60 bpm Height: 5'1" Weight: 131 lbs 07/17/2016 Blood Pressure 1: 128/82 Code: 8480-6 BMI: 25.3 Code: 71082-8 Heart Rate 1: 50 bpm Height: 5'2" Weight: 136 lbs 05/15/2016 Blood Pressure 1: 108/70 Code: 8480-6 BMI: 23.4 Code: 70077-1 Heart Rate 1: 54 bpm Height: 5'2" SpO2: 96% Weight: 126 lbs 04/23/2016 Blood Pressure 1: 112/60 Code: 8480-6 BMI: 23.6 Code: 75855-6 Heart Rate 1: 92 bpm Height: 5'2" SpO2: 95% Weight: 127 lbs 03/14/2016 Blood Pressure 1: 118/74 Code: 8480-6 BMI: 24.0 Code: 06371-3 Heart Rate 1: 51 bpm Height: 5'2" SpO2: 94% Temperature: 36.8 (C) / 98.3 (F) Weight: 129 lbs 02/19/2016 Blood Pressure 1: 110/62 Code: 8480-6 BMI: 23.4 Code: 10102-8 Heart Rate 1: 74 bpm Height: 5'2" SpO2: 97% Weight: 126 lbs 12/19/2015 Blood Pressure 1: 108/74 Code: 8480-6 BMI: 23.6 Code: 66999-4 Heart Rate 1: 52 bpm Height: 5'2" Weight: 127 lbs 03/06/2015 Blood Pressure 1: 136/88 Code: 8480-6 Heart Rate 1: 64 bpm Weight: 129 lbs 02/07/2015 Blood Pressure 1: 142/90 Code: 8480-6 BMI: 24.5 Code: 78621-3 Heart Rate 1: 82 bpm Height: 5'2" Weight: 132 lbs Functional Status No Functional Status data History of Present Illness Symptom Name Status Result Effective Date Notes Quality chronic 03/17/2019 None Onset and Resolution gradual in onset 03/17/2019 None Onset and Resolution ongoing 03/17/2019 None Quality worsening 03/17/2019 None Pertinent Findings Denies fever 03/17/2019 None Alcohol Use does not drink any alcohol 12/30/2018 None Depression (last 6 months) some of the time 12/30/2018 None Depression or Hopelessness some of the time 12/30/2018 None Describe Your Health good 12/30/2018 None Exercise Habits does not exercise 12/30/2018 None Handling Stress usually jazmyne effectively 12/30/2018 None Interaction with Friends yes 12/30/2018 None Interests & Pleasure most of the time 12/30/2018 None Life Satisfaction satisfied 12/30/2018 None Motor Vehicle Safety always fastens seat belt: y 12/30/2018 None Motor Vehicle Safety drives after drinking: n 12/30/2018 None Motor Vehicle Safety rides with someone who has been drinking: n 12/30/2018 None Smoking and Tobacco Use non smoker 12/30/2018 None Social & Emotional Support sometimes 12/30/2018 None Stress some of the time 12/30/2018 None Sun Exposure protects skin when outdoors: y 12/30/2018 None Aspirin Use yes 12/30/2018 None Blood Glucose (self reported) don't know 12/30/2018 None Blood Pressure (self reported) borderline (120/80 - 139/89) 12/30/2018 None Cholesterol (self reported) don't know 12/30/2018 None Hemaglobin A-1C (self reported) don't know 12/30/2018 None Hours of Sleep 8 12/30/2018 None Nutrition servings of fried food / high fat foods per day: 2 12/30/2018 None Nutrition servings of high fiber / whole grain per day: 2 12/30/2018 None Nutrition servings of vegetables / fruit per day: 4 12/30/2018 None Quality intermittent 12/22/2018 None Onset and Resolution ongoing 12/22/2018 None Onset of Symptom 1 months ago 12/22/2018 None Pertinent Findings adequate oral intake 12/22/2018 None Pertinent Findings Denies fever 12/22/2018 None Quality acute 09/15/2018 None Quality intermittent 09/15/2018 None Triggers no known associated factors 09/15/2018 None Location on the left side of on the chest 09/15/2018 None Radiating the left arm 09/15/2018 None Onset of Symptom 2 weeks ago 09/15/2018 None Pertinent Findings Denies nausea 09/15/2018 None Pertinent Findings dyspnea 09/15/2018 None Scale of 1(mild) to 10(severe) 4 09/15/2018 None Significant Medical Conditions hypertension 09/15/2018 None diarrhea Quality intermittent 08/18/2018 None diarrhea Quality increased amount 08/18/2018 None diarrhea Onset and Resolution ongoing 08/18/2018 None diarrhea Onset of Symptom 2-3 months ago 08/18/2018 None diarrhea Frequency of Episodes 4-6 stools per day 08/18/2018 today- prior to today was better diarrhea Pertinent Findings Denies poor weight gain 08/18/2018 None diarrhea Pertinent Findings fecal urgency 08/18/2018 None anxiety Quality intermittent 08/18/2018 None anxiety Onset and Resolution ongoing 08/18/2018 None anxiety Onset of Symptom _ years ago 08/18/2018 None anxiety Pertinent Findings Denies restlessness 08/18/2018 None gait abnormality Quality intermittent 08/04/2018 None gait abnormality Onset and Resolution ongoing 08/04/2018 None gait abnormality Onset of Symptom 2 weeks ago 08/04/2018 None gait abnormality Frequency of Episodes daily 08/04/2018 None gait abnormality Pertinent Findings muscle tenderness 08/04/2018 None hypertension Quality chronic 07/22/2018 None hypertension Quality primary hypertension 07/22/2018 None hypertension Onset and Resolution ongoing 07/22/2018 None hypertension Onset of Symptom during adulthood 07/22/2018 None hypertension Blood Pressure Values not checking blood pressure at home 07/22/2018 None hypertension Alleviating Factors medication 07/22/2018 None hypertension Pertinent Findings Denies dizziness 07/22/2018 -Feels imbalanced though hypertension Pertinent Findings Denies dyspnea 07/22/2018 -Wears oxygen at home hypertension Pertinent Findings edema 07/22/2018 in her ankles hypertension Quality chronic 04/21/2018 None hypertension Quality primary hypertension 04/21/2018 None hypertension Onset and Resolution ongoing 04/21/2018 None hypertension Onset of Symptom during adulthood 04/21/2018 None hypertension Blood Pressure Values not checking blood pressure at home 04/21/2018 None hypertension Alleviating Factors medication 04/21/2018 None hypertension Pertinent Findings Denies dizziness 04/21/2018 None hypertension Pertinent Findings Denies dyspnea 04/21/2018 None hypertension Pertinent Findings Denies edema 04/21/2018 None cough Location in the throat 04/21/2018 None cough Quality productive 04/21/2018 None cough Onset and Resolution ongoing 04/21/2018 None low back pain Quality acute 04/21/2018 None low back pain Quality intermittent 04/21/2018 None low back pain Onset and Resolution ongoing 04/21/2018 None low back pain Onset of Symptom 1 days ago 04/21/2018 None low back pain Limitation on Activities allows weight bearing activity 04/21/2018 None low back pain Exacerbating Factors changing position 04/21/2018 None low back pain Location lumbar spine 04/21/2018 None low back pain Pertinent Findings Denies bowel disturbance 04/21/2018 None low back pain Pertinent Findings female 04/21/2018 None low back pain Pertinent Findings weakness 04/21/2018 None cough Quality acute 04/09/2018 None cough Quality intermittent 04/09/2018 None cough Quality productive 04/09/2018 None cough Onset and Resolution sudden in onset 04/09/2018 None cough Onset of Symptom 2 weeks ago 04/09/2018 None cough Frequency of Episodes daily 04/09/2018 None cough Pertinent Findings dyspnea 04/09/2018 None cough Pertinent Findings Denies fever 04/09/2018 None cough Pertinent Findings Denies chills 04/09/2018 None cough Pertinent Findings sputum production 04/09/2018 (white) cough Pertinent Findings post nasal drip 04/09/2018 None headache Quality acute 04/09/2018 None headache Onset and Resolution sudden in onset 04/09/2018 None headache Onset of Symptom 1 weeks ago 04/09/2018 None headache Timing of Episodes in the morning 04/09/2018 None headache Timing of Episodes upon awakening 04/09/2018 None headache Alleviating Factors medication 04/09/2018 (ibuprofen) headache Pertinent Findings Denies chills 04/09/2018 None headache Pertinent Findings awakens from sleep 04/09/2018 None constipation Quality intermittent diarrhea 04/09/2018 None constipation Quality chronic 04/09/2018 None constipation Onset and Resolution ongoing 04/09/2018 None headache Pertinent Findings Denies fever 04/09/2018 None hypertension Quality primary hypertension 01/19/2018 None hypertension Onset and Resolution ongoing 01/19/2018 None hypertension Onset of Symptom during adulthood 01/19/2018 None hypertension Quality chronic 01/19/2018 None hypertension Alleviating Factors medication 01/19/2018 None hypertension Blood Pressure Values not checking blood pressure at home 01/19/2018 None hypertension Pertinent Findings Denies dizziness 01/19/2018 None hypertension Pertinent Findings Denies dyspnea 01/19/2018 None hypertension Pertinent Findings Denies edema 01/19/2018 None low back pain Quality acute 01/19/2018 None low back pain Quality intermittent 01/19/2018 None low back pain Onset and Resolution ongoing 01/19/2018 None low back pain Onset of Symptom 1 days ago 01/19/2018 None low back pain Limitation on Activities allows weight bearing activity 01/19/2018 None low back pain Exacerbating Factors changing position 01/19/2018 None Annual Medicare Wellness Exam Alcohol Use does not drink any alcohol 12/18/2017 None Annual Medicare Wellness Exam Aspirin Use yes 12/18/2017 None Annual Medicare Wellness Exam Blood Glucose (self reported) don't know 12/18/2017 None Annual Medicare Wellness Exam Blood Pressure (self reported) don't know 12/18/2017 None Annual Medicare Wellness Exam Cholesterol (self reported) don't know 12/18/2017 None Annual Medicare Wellness Exam Depression (last 6 months) almost all of the time 12/18/2017 None Annual Medicare Wellness Exam Depression or Hopelessness some of the time 12/18/2017 None Annual Medicare Wellness Exam Describe Your Health excellent 12/18/2017 None Annual Medicare Wellness Exam Exercise Habits does not exercise 12/18/2017 None Annual Medicare Wellness Exam Handling Stress usually jazmyne effectively 12/18/2017 None Annual Medicare Wellness Exam Hemaglobin A-1C (self reported) don't know 12/18/2017 None Annual Medicare Wellness Exam Hours of Sleep 7 12/18/2017 None Annual Medicare Wellness Exam Interaction with Friends yes 12/18/2017 None Annual Medicare Wellness Exam Interests & Pleasure most of the time 12/18/2017 None Annual Medicare Wellness Exam Life Satisfaction satisfied 12/18/2017 None Annual Medicare Wellness Exam Motor Vehicle Safety always fastens seat belt: _ 12/18/2017 None Annual Medicare Wellness Exam Nutrition servings of fried food / high fat foods per day: 1 12/18/2017 None Annual Medicare Wellness Exam Nutrition servings of high fiber / whole grain per day: 2 12/18/2017 None Annual Medicare Wellness Exam Nutrition servings of vegetables / fruit per day: 4 12/18/2017 None Annual Medicare Wellness Exam Smoking and Tobacco Use non smoker 12/18/2017 None Annual Medicare Wellness Exam Social & Emotional Support sometimes 12/18/2017 None Annual Medicare Wellness Exam Stress some of the time 12/18/2017 None Annual Medicare Wellness Exam Sun Exposure protects skin when outdoors: y 12/18/2017 None Hospital Follow Up _ Other: gallstones 10/16/2017 [...] moderate 06/16/2017 None knee pain Significant Medications NSAID's 06/16/2017 None knee pain Mechanism of injury [...] Annual Medicare Wellness Exam Blood Pressure (self reported) borderline (120/80 - 139/89) 12/12/2016 None Annual [...] Annual Medicare Wellness Exam Hemaglobin A-1C (self reported) don't know 12/12/2016 None Annual [...] with someone who has been drinking: n 12/12/2016 None Annual Medicare Wellness Exam Nutrition servings of fried food / high fat foods per day: 1 12/12/2016 None Annual Medicare Wellness Exam Nutrition [...] Resolution ongoing 07/17/2016 None cough Quality acute 05/15/2016 None cough Quality intermittent 05/15/2016 None cough [...] Codes Date EST. PATIENT, LEVEL III Diagnosis: Essential (primary) hypertension[ICD10: I10] Diagnosis: Chronic obstructive pulmonary disease, unspecified[ICD10: J44.9] Diagnosis: Chest pain, unspecified[ICD10: R07.9] Pebbles Burden MD, [facility] CPT- 4: 87025 03/17/2019 ([id number] EST. PATIENT, LEVEL IV Diagnosis: Other vitamin B12 deficiency anemias[ICD10: D51.8] [facility] CPT-4: 80300 12/22/2018 [id number] EST. PATIENT, LEVEL IV Diagnosis: Chest pain, unspecified[ICD10: R07.9] Diagnosis: Other vitamin B12 deficiency anemias[ICD10: D51.8] Diagnosis: Other allergic rhinitis[ICD10: J30.89] Mallorie Burden MD, [facility] CPT-4: 00508 09/15/2018 ([id number]) 38288 EST. PATIENT, LEVEL III Diagnosis: Essential (primary) hypertension[ICD10: I10] Diagnosis: Fecal urgency[ICD10: R15.2] Kim Burden MD [facility] CPT-4: 65684 08/18/2018 ([id number]) 45343 EST. PATIENT, LEVEL IV Diagnosis: Other vitamin B12 deficiency anemias[ICD10: D51.8] Diagnosis: Essential (primary) hypertension[ICD10: I10] Diagnosis: Major depressive disorder, recurrent, mild[ICD10: F33.0] Diagnosis: Unsteadiness on feet[ICD10: R26.81] Kim Burden MD [facility] CPT- 4: 15056 08/04/2018 ([id number]) 40674 EST. PATIENT, LEVEL IV Diagnosis: Fecal urgency[ICD10: R15.2] Diagnosis: Generalized abdominal pain[ICD10: R10.84] Diagnosis: Essential (primary) hypertension[ICD10: I10] Kim Burden MD [facility] CPT-4: 14181 07/22/2018 ([id number]) 07837 EST. PATIENT, LEVEL IV Diagnosis: Essential (primary) hypertension[ICD10: I10] Diagnosis: Other emphysema[ICD10: J43.8] Diagnosis: Candidal stomatitis[ICD10: B37.0] Kim Burden MD [facility] CPT- 4: 38334 04/21/2018 ([id number]) 01843 EST. PATIENT, LEVEL III Diagnosis: Chronic obstructive pulmonary disease with (acute) exacerbation[ICD10: J44.1] Mallorie Burden MD, [facility] CPT-4: 95510 04/09/2018 ([id number]) 51493 EST. PATIENT, LEVEL IV Diagnosis: Essential (primary) hypertension[ICD10: I10] Diagnosis: Other emphysema[ICD10: J43.8] Kim Burden MD [facility] CPT-4: 59787 01/19/2018 ([id number]) 33535 EST. PATIENT, LEVEL IV Diagnosis: Essential (primary) hypertension[ICD10: I10] Diagnosis: Other emphysema[ICD10: J43.8] Diagnosis: Dependence on supplemental oxygen[ICD10: Z99.81] Diagnosis: Hypoxemia[ICD10: R09.02] Diagnosis: Pain in left knee[ICD10: M25.562] Diagnosis: Effusion, left knee[ICD10: M25.462] Kim Burden MD, [facility] CPT- 4: 59229 10/16/2017 [id number] EST. PATIENT, LEVEL III Diagnosis: Pain in thoracic spine[ICD10: M54.6] Pebbles Burden MD, [facility] CPT- 4: 28372 09/03/2017 ([id number]) 81579 EST. PATIENT, LEVEL III Diagnosis: Essential (primary) hypertension[ICD10: I10] Diagnosis: Other emphysema[ICD10: J43.8] Kim Burden MD, [facility] CPT-4: 49763 07/31/2017 ([id number]) Miscellaneous no charge Diagnosis: Essential (primary) hypertension[ICD10: I10] Mallorie Burden MD, [facility] CPT-4: 89850 07/18/2017 ([id number]) 09795 EST. PATIENT, LEVEL III Diagnosis: Pain in left knee[ICD10: M25.562] Diagnosis: Effusion, left knee[ICD10: M25.462] Mallorie Burden MD, [facility] CPT-4: 88250 06/16/2017 ([id number]) 88890 EST. PATIENT, LEVEL III Diagnosis: Essential (primary) hypertension[ICD10: I10] Diagnosis: Unsteadiness on feet[ICD10: R26.81] Kim Burden MD, [facility] CPT- 4: 68696 05/28/2017 ([id number]) 57438 EST. PATIENT, LEVEL IV Diagnosis: Essential (primary) hypertension[ICD10: I10] Diagnosis: Chronic obstructive pulmonary disease with acute lower respiratory infection[ICD10: J44.0] Kim Burden MD, [facility] CPT-4: 71741 05/05/2017 ([id number]) 39675 EST. 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 PATIENT, LEVEL IV Diagnosis: Essential (primary) hypertension[ICD10: I10] Diagnosis: Gastro-esophageal reflux disease without esophagitis[ICD10: K21.9] Diagnosis: Chronic obstructive pulmonary disease, unspecified[ICD10: J44.9] Kim Burden MD [facility] CPT-4: 17656 02/10/2017 ([id number]) 04145 EST. PATIENT, LEVEL IV Diagnosis: Essential (primary) hypertension[ICD10: I10] Diagnosis: Gastro-esophageal reflux disease without esophagitis[ICD10: K21.9] Diagnosis: Chronic obstructive pulmonary disease with acute lower respiratory infection[ICD10: J44.0] Kim Burden MD, [facility] CPT-4: 09927 01/14/2017 18948 EST. PATIENT, LEVEL IV Diagnosis: Other fatigue[ICD10: R53.83] Diagnosis: Other malaise[ICD10: R53.81] Diagnosis: Headache[ICD10: R51] Diagnosis: Palpitations[ICD10: R00.2] Diagnosis: Dehydration[ICD10: E86.0] Pebbles Burden MD, [facility] CPT-4: 82353 01/07/2017 ([id number]) Miscellaneous no charge Diagnosis: Essential (primary) hypertension[ICD10: I10] Pebbles Burden MD, [facility] CPT-4: 99184 01/02/2017 53357 EST. PATIENT, LEVEL IV Diagnosis: Chronic obstructive pulmonary disease, unspecified[ICD10: J44.9] Diagnosis: Essential (primary) hypertension[ICD10: I10] Diagnosis: Other fatigue[ICD10: R53.83] Pebbles Burden MD [facility] CPT-4: 28263 01/01/2017 ([id number]) Miscellaneous no charge Diagnosis: Essential (primary) hypertension[ICD10: I10] Pebbles Burden MD, [facility] CPT-4: 75262 12/20/2016 ([id number]) 48859 EST. 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 PATIENT, LEVEL IV Diagnosis: Essential (primary) hypertension[ICD10: I10] Diagnosis: Other allergic rhinitis[ICD10: J30.89] Diagnosis: Gastro-esophageal reflux disease without esophagitis[ICD10: K21.9] Kim Burden MD, [facility] CPT-4: 28171 10/15/2016 ([id number]) 00664 EST. PATIENT, LEVEL III Diagnosis: Essential (primary) hypertension[ICD10: I10] Diagnosis: Major depressive disorder, recurrent, mild[ICD10: F33.0] Kim Burden MD [facility] CPT-4: 37064 07/17/2016 ([id number]) 37846 EST. PATIENT, LEVEL III Diagnosis: Pain in left hip[ICD10: M25.552] Diagnosis: Acute laryngopharyngitis[ICD10: J06.0] Kim Burden MD, [facility] CPT-4: 71654 05/15/2016 ([id number]) 00928 EST. PATIENT, LEVEL III Diagnosis: Fracture of unspecified parts of lumbosacral spine and pelvis, initial encounter for closed fracture[ICD10: S32.9XXA] Diagnosis: Essential (primary) hypertension[ICD10: I10] Kim Burden MD, [facility] CPT-4: 93482 04/23/2016 14031 EST. PATIENT, LEVEL IV Diagnosis: Acute laryngopharyngitis[ICD10: J06.0] Diagnosis: Other allergic rhinitis[ICD10: J30.89] Pebbles Burden MD, [facility] CPT- 4: 82724 03/14/2016 01383 EST. PATIENT, LEVEL IV Diagnosis: Dysuria[ICD10: R30.0] Diagnosis: Left lower quadrant pain[ICD10: R10.32] Pebbles Burden MD, [facility] CPT-4: 30732 02/19/2016 ([id number]) 45342 EST. 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 PATIENT, LEVEL IV Diagnosis: ESSENTIAL HYPERTENSION[ICD9: 401.9] Diagnosis: ACUTE URI[ICD9: 465.9] [facility] CPT-4: 26441 03/06/2015 ([id number]) OFFICE VISIT, NEW - LEVEL 4 Diagnosis: ESOPHAGEAL REFLUX[ICD9: 530.81] Diagnosis: ESSENTIAL HYPERTENSION[ICD9: 401.9] Diagnosis: COPD (chronic obstructive pulmonary disease)[ICD9: 496] Diagnosis: ALLERGIC RHINITIS[ICD9: 477.9] [facility] CPT-4: 43501 02/07/2015 Plan of Care Planned Activity Notes Codes Status Date Referral: Consuelo Chavez Patient informed. Referral info faxed. Completed 03/31/2019 Care Plan: Referral Order SNOMED-CT : [id number] Pending 03/23/2019 Visit Plan: Hypertension - The patient has been counseled to cut [...] to call for acute concerns. COPD - chronic problem for this patient. We have reviewed chronic treatment strategy, symptom control, and plans for acute exacerbations. No changes today to the current treatment plan as the patient is stable, monitor for acute changes. Chest pain - will check labs and EKG and treat/refer as indicated - will refer to cardiology to establish care 03/17/2019 Appointment: Pebbles Lund WPtel: [address] [place], [place] [phone] (30 min) 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 12/30/2018 Patient Education: Patient Medication Summary Completed 12/30/2018 Appointment: Mallorie Wetzel WPtel: [phone] [phone] [facility] - Annual Wellness Visit 12/28/2018 Visit Plan: Hypertension - well controlled - continue with current medications, continue with no added salt diet. Pt has been encouraged to exercise daily. The pt has been advised to call the office if there are any acute concerns about change in blood pressure readings at home. Fecal urgency with intermittent constipation/Diarrhea - advised pt to continue with questran, but use lower amount of questran - and then increase until symptoms of diarrhea improve, but not to the point of constipation. Vitamin b12 injection. 12/22/2018 Appointment: Kim Burden WPtel: [phone] [facility] (15 min) Moderate 12/22/2018 Patient Education: Patient Medication Summary Completed 12/22/2018 Patient Education: Diarrhea Completed 12/22/2018 Referral: Consuelo Chavez Patient informed. Referral info faxed. Completed 10/07/2018 Appointment: Injection 10/01/2018 Patient Education: Patient Medication Summary Completed 10/01/2018 Visit Plan: Chest pain- refer to Dr Chavez for evaluation Allergies- kenalog injection today in the office- recommended pt to use allergy medication as [...] spray in the nasal steroid allergy spray. B12 def-injection today in the office 09/15/2018 Appointment: Mallorie Wetzel WPtel: [phone] [phone] (30 min) Complex 09/15/2018 Patient Education: Patient Medication Summary Completed 09/15/2018 Care Plan: Referral Order SNOMED-CT : [id number] Pending 09/15/2018 Appointment: Kim Burden WPtel: [facility] (15 min) Moderate 08/25/2018 Visit Plan: Hypertension - well controlled - continue with current medications, continue with no added salt diet. Pt has been encouraged to exercise daily. The pt has been advised to call the office if there are any acute concerns about change in blood pressure readings at home. Diarrhea - improved on the questran - increase to 1/2 packet twice a day. 08/18/2018 Appointment: Kim Burden WPtel: [facility] (15 min) Moderate 08/18/2018 Patient Education: Patient Medication Summary Completed 08/18/2018 Visit Plan: Gait instability - we will get the pt set up for physical therapy. Decrease dose of alprazolam to 1/2 pill bid, will try to decrease to only PRN after two weeks as many of the difficulties that she was using the alprazolam for have resolved. Hypertension - well controlled - continue with current medications, continue with no added salt diet. Pt has been encouraged to exercise daily. The pt has been advised to call the office if there are any acute concerns about change in blood pressure readings at home. Depression and anxiety - both have improved - continue with antidepressant - decrease dose of anxiolytic. 08/04/2018 Appointment: Kim Burden WPtel: [facility] (15 min) Moderate 08/04/2018 Appointment: Nurse Visit 08/04/2018 Patient Education: Patient Medication Summary Completed 08/04/2018 Patient Education: Depression Completed 08/04/2018 Visit Plan: Fecal urgency - Abdominal discomfort - discussed with patient the need to avoid fatty foods, spicy foods, and to start on Questran 1/2 packet three times daily and she will call back about her symptoms. Hypertension - well controlled - continue with current medications, continue with no added salt diet. Pt has been encouraged to exercise daily. The pt has been advised to call the office if there are any acute concerns about change in blood pressure readings at home. 07/22/2018 Visit Plan: Fecal urgency - Abdominal discomfort - discussed with patient the need to avoid fatty foods, spicy foods, and to start on Questran 1/2 packet three times daily and she will call back about her symptoms. Hypertension - well controlled - continue with current medications, continue with no added salt diet. Pt has been encouraged to exercise daily. The pt has been advised to call the office if there are any acute concerns about change in blood pressure readings at home. 07/22/2018 Appointment: [phone] (15 min) Moderate 07/22/2018 Patient Education: Patient Medication Summary Completed 07/22/2018 Appointment: Injection 07/16/2018 Patient Education: Patient Medication Summary Completed 07/16/2018 Appointment: Injection 07/01/2018 Patient Education: Patient Medication Summary Completed 07/01/2018 Appointment: Injection 06/25/2018 Patient Education: Patient Medication Summary Completed 06/25/2018 Appointment: Injection 06/15/2018 Patient Education: Patient Medication Summary Completed 06/15/2018 Appointment: Nurse Visit 06/04/2018 Appointment: Injection 06/02/2018 Patient Education: Patient Medication Summary Completed 06/02/2018 Appointment: Injection 05/21/2018 Patient Education: Patient Medication Summary Completed 05/21/2018 Visit Plan: Hypertension - well controlled - [...] patient is stable, monitor for acute changes. Thrush - rx for nystatin swish and swallow. 04/21/2018 Visit Plan: Hypertension - well controlled - [...] patient is stable, monitor for acute changes. Thrush - rx for nystatin swish and swallow. 04/21/2018 Appointment: Kim Burden [facility]Ptel[phone] (15 min) Moderate 04/21/2018 Patient Education: Patient Medication Summary Completed 04/21/2018 Visit Plan: COPD EXACERBATION - COPD is a chronic problem for this patient, however, the pt is experiencing an acute exacerbation of the COPD. Pt is to receive appropriate treatment as an out patient, but the pt is aware that if symptoms worsen or do not improve, to call [facility] for instructions, or go to the EMERGENCY ROOM if the symptoms are beyond acute control with rescue medications. We have reviewed chronic treatment strategy, symptom control, and plans for acute exacerbations. No changes today to the current treatment plan as the patient is stable, monitor for acute changes. 04/09/2018 Visit Plan: COPD EXACERBATION - COPD is a chronic problem for this patient, however, the pt is experiencing an acute exacerbation of the COPD. Pt is to receive appropriate treatment as an out patient, but the pt is aware that if symptoms worsen or do not improve, to call [facility] for instructions, or go to the EMERGENCY ROOM if the symptoms are beyond acute control with rescue medications. We have reviewed chronic treatment strategy, symptom control, and plans for acute exacerbations. No changes today to the current treatment plan as the patient is stable, monitor for acute changes. 04/09/2018 Appointment: Mallorie Wet[facility]Ptel[phone] [phone] [place] (30 min) Complex 04/09/2018 Patient Education: Patient Medication Summary Completed 04/09/2018 Visit Plan: Hypertension - well controlled - continue with current medications, continue with no added salt diet. Pt has been encouraged to exercise daily. The pt has been advised to call the office if there are any acute concerns about change in blood pressure readings at home. 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 We have reviewed chronic treatment strategy, symptom control, and plans for acute exacerbations. No changes today to the current treatment plan as the patient is stable, monitor for acute changes. 01/19/2018 Appointment: Kim Burden WPtel: [facility] (15 min) Moderate 01/19/2018 Patient Education: Patient Medication Summary Completed 01/19/2018 Appointment: Kim Burden WPtel: [address] [place], [place] [phone] (15 min) Moderate 01/14/2018 Visit Plan: Medicare Exam - today we [...] her DOPA paperwork for health care surrogate. 12/18/2017 Appointment: Pebbles Lund WPtel: [facility] [facility] - Annual Wellness Visit 12/18/2017 Patient Education: Patient Medication Summary Completed 12/18/2017 Appointment: Nurse Visit 10/23/2017 Visit Plan: Hypertension [...] occurs at the site of injection. 10/16/2017 Visit Plan: Hypertension - well controlled - [...] pain occurs at the site of injection. 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 10/16/2017 Appointment: Kim Burden WPtel: [facility] (15 min) Moderate 10/16/2017 Patient Education: Patient [...] or concerns. 09/03/2017 Appointment: Pebbles Lund WPtel: [facility] [place] (15 min) Moderate 09/03/2017 Patient Education: Patient Medication Summary Completed 09/03/2017 Appointment: Kim Burden WPtel: [facility] [place] (15 min) Moderate 08/11/2017 Appointment: Kim Burden WPtel: [facility] (15 min) Moderate 08/11/2017 Patient Education: Patient [...] continue with current treatment. 07/31/2017 Appointment: Kim uBrden WPtel: [address] [facility] (15 min) Moderate 07/31/2017 Patient Education: Patient Medication Summary Completed 07/31/2017 Appointment: Nurse Visit 07/18/2017 Patient Education: Patient Medication Summary Completed 07/18/2017 Patient Education: Patient Medication Summary Completed 07/18/2017 Appointment: Kim Burden WPtel: [phone] [facility] [place] (15 min) Moderate 06/30/2017 Visit Plan: Effusion left knee-fall 2 weeks ago-recommend compression of joint and refer to Ortho for evaluation and treatment-will refer to Dr Pryor/Quinton Mccormick. Patient verbalized understanding of plan. 06/16/2017 Appointment: Mallorie Wetzel [facility]Ptel[phone] [place] (30 min) Complex 06/16/2017 Patient [...] when active. 05/28/2017 Appointment: Kim Burden [facility]Ptel: [facility] [place] (15 min) Moderate 05/28/2017 Patient Education: [...] changes. 05/05/2017 Appointment: Kim Burden WPtel: [phone] [facility] (15 min) Moderate 05/05/2017 Patient Education: Patient [...] medications. 03/13/2017 Appointment: Kim Burden WPtel: [phone] [facility] (15 min) Moderate 03/13/2017 Patient Education: [...] worsening. 02/10/2017 Appointment: Kim Burden WPtel: [phone] [facility] [place] (15 min) Moderate 02/10/2017 Patient Education: [...] Appointment: Kim Burden [facility]Ptel[phone] (15 min) Moderate 01/14/2017 Patient Education: Patient Medication Summary Completed 01/14/2017 Visit Plan: Dehydration, palpitations, malaise, headache - will send for outpatient fluids, will check labs, ekg. Pt is to restart her spironolactone, continue to monitor blood pressures and heart rates and notify clinic if symptoms do not improve, if they worsen, or with any questions or concerns. 01/07/2017 Appointment: Pbebles Lund WPtel[facility] [address] [facility] (30 min) Complex 01/07/2017 Patient Education: [...] pressures. 01/01/2017 Appointment: Pebbles Lund WPtel: [phone] [facility] (30 min) Complex 01/01/2017 Patient Education: Patient [...] surrogate. 12/12/2016 Appointment: Pebbles Lund [facility]Ptel[phone] [facility] [facility] - Annual Wellness Visit 12/12/2016 [...] this time. 12/11/2016 Appointment: Kim Burden WPtel: [phone] [facility] (15 min) Moderate 12/11/2016 Patient Education: Patient Medication Summary Completed 12/11/2016 Appointment: Mallorie Wetzel [facility]Ptel[facility] [phone] [phone] [place] (30 min) Complex 12/10/2016 Visit [...] not improving. 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 07/17/2016 Appointment: Kim Burden WPtel: [phone] [facility] (15 min) Moderate 07/17/2016 Patient Education: Patient Medication Summary Completed 07/17/2016 Appointment: Kim Burden WPtel: [facility] [place] (15 min) Moderate 06/10/2016 Visit Plan: Hip pain - persistent but improving - continue with current treatment plan. Pt to call if her symptoms are not improving or if her hip pain worsens. URI symptoms - supportive care, use otc allergy medications. 05/15/2016 Appointment: Kim Burden WPtel: [facility] [place] (15 min) Moderate 05/15/2016 Patient Education: [...] improving. 04/23/2016 Appointment: Kim Burden WPtel: [phone] [facility] [place] (15 min) Moderate 04/23/2016 Patient Education: Patient Medication Summary Completed 04/23/2016 Patient Education: Hypertension Completed 04/23/2016 Care Plan: X-RAY EXAM OF ABDOMEN INC : 02070-9 Pending 03/18/2016 Visit Plan: URI - Pt [...] allergy spray. 03/14/2016 Appointment: Pebbles Lund WPtel: [facility] (30 min) Complex 03/14/2016 Patient Education: Patient Medication Summary Completed 03/14/2016 Patient Education: Patient Medication Summary Completed 02/29/2016 Visit Plan: Flank pain - pt is currently being treated for UTI, but is having continued left flank pain - will get KUB - pt is to notify clinic if symptoms do not improve, or with any concerns. 02/19/2016 Appointment: Pebbles Lund WPtel: [facility] (30 min) Complex 02/19/2016 Patient Education: Patient Medication Summary Completed 02/19/2016 Appointment: Kim Burden WPtel: [facility] (15 min) Moderate 01/22/2016 Visit Plan: Hypertension [...] improving. 12/19/2015 Appointment: Kim Burden WPtel: [phone] (15 min) Moderate 12/19/2015 Patient Education: Patient [...] Finish RX. 03/06/2015 Appointment: Kim Burden WPtel: [phone] Follow up 03/06/2015 Patient Education: Patient Medication [...] - all of which can exacerbate esophageal r eflux. The patient is to take medications as prescribed and call the office if the symptoms are not improving. CHANGE TO OMEPRAZOLE BUT TAKE IT TWICE DAILY- START CARAFATE COPD - chronic problem for this [...] Completed 02/07/2015 Care Plan: SCREENINGMAMMOGRAPHYDIGITAL LOINC : 09688-3 Ordered 02/07/2015 Care Plan: COMPLETE CBC AUTOMATED LOINC : 24179-1 Ordered 02/07/2015 Referral: Consuelo Chavez Referral Appointment Requested Referral: Consuelo Chavez Referral Initiated Instructions Comment . COPD - chronic problem [...] attempt to alleviate the low blood pressures. kenalog . Chest pain- refer to Dr Chavez for evaluation Allergies-kenalog injection today in the office- recommended pt to use allergy medication as [...] spray in the nasal steroid allergy spray. B12 def-injection today in the office . Hip pain - persistent but improving - continue with current treatment plan. Pt to call if her symptoms are not improving or if her hip pain worsens. URI symptoms - supportive care, use otc allergy medications. change the metoprolol to 1 pill in [...] no change in meds at this time. continue with the questran - just decrease the amount - try 1 teaspoon with meals . Hypertension - well controlled - continue with current medications, continue with no added salt diet. Pt has been encouraged to exercise daily. The pt has been advised to call the office if there are any acute concerns about change in blood pressure readings at home. Fecal urgency with intermittent constipation/Diarrhea - advised pt to continue with questran, but use lower amount of questran - and then increase until symptoms of diarrhea improve, but not to the point of constipation. Vitamin b12 injection. . Hypertension - well controlled - continue [...] situational exposure. No change in current medications. TAKE WITH FOOD AND PROBIOTIC ([employer] OR [employer]) . URI - Pt advised to increase [...] in the nasal steroid allergy spray. . Medicare Exam - today we discussed [...] to help decrease GI upset./loose stools - [facility] or [facility] . Hypertension - well controlled - continue [...] DOPA paperwork for health care surrogate. . Thoracic back pain - x-ray showed [...] worsen, or with any questions or concerns. restart breo - every day - even if you do not feel sick or short of breath we will get you an appointment with Dr. Chavez we will check labs and EKG today . Hypertension - The patient has been counseled to cut [...] to call for acute concerns. COPD - chronic problem for this patient. We have reviewed chronic treatment strategy, symptom control, and plans for acute exacerbations. No changes today to the current treatment plan as the patient is stable, monitor for acute changes. Chest pain - will check labs and EKG and treat/refer as indicated - will refer to cardiology to establish care . Hypertension - well controlled - continue with current medications, continue with no added salt diet. Pt has been encouraged to exercise daily. The pt has been advised to call the office if there are any acute concerns about change in blood pressure readings at home. Diarrhea - improved on the questran - increase to 1/2 packet twice a day. . Hypertension - well controlled - continue [...] patient is stable, monitor for acute changes. CHECK YOUR BLOOD PRESSURE AND PULSE AT [...] Kenalog injection today in the office. . Fecal urgency - Abdominal discomfort - discussed with patient the need to avoid fatty foods, spicy foods, and to start on Questran 1/2 packet three times daily and she will call back about her symptoms. Hypertension - well controlled - continue with current medications, continue with no added salt diet. Pt has been encouraged to exercise daily. The pt has been advised to call the office if there are any acute concerns about change in blood pressure readings at home. . Fecal urgency - Abdominal discomfort - discussed with patient the need to avoid fatty foods, spicy foods, and to start on Questran 1/2 packet three times daily and she will call back about her symptoms. Hypertension - well controlled - continue with current medications, continue with no added salt diet. Pt has been encouraged to exercise daily. The pt has been advised to call the office if there are any acute concerns about change in blood pressure readings at home. . Hypertension - well controlled - continue [...] attempt to alleviate the low blood pressures. change the metoprolol to 1 pill in [...] change in meds at this time. . Hypertension - well controlled - continue [...] patient is stable, monitor for acute changes. Thrush - rx for nystatin swish and swallow. . Hypertension - well controlled - continue [...] patient is stable, monitor for acute changes. Thrush - rx for nystatin swish and swallow. . Hypertension - well controlled - continue with current medications, continue with no added salt diet. Pt has been encouraged to exercise daily. The pt has been advised to call the office if there are any acute concerns about change in blood pressure readings at home. 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 We have reviewed chronic treatment strategy, symptom control, and plans for acute exacerbations. No changes today to the current treatment plan as the patient is stable, monitor for acute changes. Liquid Vitamin B12 or Vitamin B12 dissolving [...] occurs at the site of injection. . Hypertension - well controlled - continue [...] pain occurs at the site of injection. 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 . COPD - chronic problem for this [...] office if the symptoms are not improving. increase current supply of (norvasc) AMLODIPINE 2.5mg [...] Pryor/Quinton Mccormick. Patient verbalized understanding of plan. decrease alprazolam to 1/2 pill twice a day. . Gait instability - we will get the pt set up for physical therapy. Decrease dose of alprazolam to 1/2 pill bid, will try to decrease to only PRN after two weeks as many of the difficulties that she was using the alprazolam for have resolved. Hypertension - well controlled - continue with current medications, continue with no added salt diet. Pt has been encouraged to exercise daily. The pt has been advised to call the office if there are any acute concerns about change in blood pressure readings at home. Depression and anxiety - both have improved - continue with antidepressant - decrease dose of anxiolytic. . Hypertension - well controlled - continue [...] oxygen, and call if symptoms worsening. . Medicare Exam - today we discussed [...] her DOPA paperwork for health care surrogate. Restart breo kenalog injection today -start oral prednisone tomorrow call friday if not better and we can send in a prescription for an antibiotic . COPD EXACERBATION - COPD is a chronic problem for this patient, however, the pt is experiencing an acute exacerbation of the COPD. Pt is to receive appropriate treatment as an out patient, but the pt is aware that if symptoms worsen or do not improve, to call [facility] for instructions, or go to the EMERGENCY ROOM if the symptoms are beyond acute control with rescue medications. We have reviewed chronic treatment strategy, symptom control, and plans for acute exacerbations. No changes today to the current treatment plan as the patient is stable, monitor for acute changes. Restart breo kenalog injection today -start oral prednisone tomorrow call friday if not better and we can send in a prescription for an antibiotic . COPD EXACERBATION - COPD is a chronic problem for this patient, however, the pt is experiencing an acute exacerbation of the COPD. Pt is to receive appropriate treatment as an out patient, but the pt is aware that if symptoms worsen or do not improve, to call [facility] for instructions, or go to the EMERGENCY ROOM if the symptoms are beyond acute control with rescue medications. We have reviewed chronic treatment strategy, symptom [...]
--- OUTSIDE RECORDS SUMMARY | 2019-04-06 08:23 | XMS REPORT | CCD ---
Author Author Mallorie Wetzel MD, 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 Name Role Phone PP Unavailable CCM Unavailable Summary Purpose Interface Exchange Insurance Providers Payer name Policy type / Coverage type Covered green party ID Effective Begin Date Effective End Date WPS Medicare Part B Medicare Part B [id number] 2018 Unknown AET[employer] Medicare Part B [id number] Unknown Family history Brother Diagnosis Age At [...] Unknown 3 02/07/[address]: 9137332 Quit over 10 years ago 199302/07/2015 Number [...] Fill Instructions Celexa 20 mg tablet RxNorm: 570766 1 Tablet(s) PO daily 03/23/2019 06/14/2020 Active Celexa 20 mg tablet RxNorm: 633013 1 Tablet(s) PO daily 03/23/2019 03/22/2019 Inactive Keflex 500 mg capsule RxNorm: 948919 1 Capsule(s) PO TID 01/27/2019 02/02/2019 Inactive Keflex 500 mg capsule RxNorm: 579440 1 Capsule(s) PO TID 01/27/2019 01/26/2019 Inactive Lexapro 20 mg tablet RxNorm: 072757 Tablet(s) PO TAKE 1 TABLET EVERY DAY 01/07/2019 01/06/2019 Inactive Lexapro 20 mg tablet RxNorm: 121843 Tablet(s) PO TAKE 1 TABLET EVERY DAY 01/07/2019 01/06/2019 Inactive Lexapro 20 mg tablet RxNorm: 642670 Tablet(s) PO TAKE 1 TABLET EVERY DAY 01/07/2019 03/22/2019 Inactive mupirocin 2 % topical ointment RxNorm: 120029 1 Application TOP BID 12/30/2018 No Stop Date Active cyanocobalamin (vit B-12) 1,000 mcg/mL injection solution RxNorm: 791880 Milliliter(s) Inj 12/22/2018 12/22/2018 Inactive metoprolol tartrate 50 mg tablet RxNorm: 739347 1/2 Tablet(s) PO BID 11/06/2018 10/31/2019 Active alprazolam 1 mg tablet RxNorm: 988091 1/2 Tablet(s) PO TID 11/06/2018 08/02/2019 Active ibuprofen 800 mg tablet RxNorm: 827579 Tablet(s) TAKE 1 TABLET THREE TIMES DAILY 11/06/2018 10/31/2019 Active losartan 100 mg tablet RxNorm: 235681 Tablet(s) TAKE 1 TABLET EVERY EVENING 11/06/2018 10/31/2019 Active Lexapro 10 mg tablet RxNorm: 468402 Tablet(s) TAKE 1 TABLET EVERY DAY 11/06/2018 01/06/2019 Inactive cyanocobalamin (vit B-12) 1,000 mcg/mL injection solution RxNorm: 740934 1 Milliliter(s) Inj 10/01/2018 10/01/2018 Inactive ibuprofen 800 mg tablet RxNorm: 611539 TAKE 1 TABLET THREE TIMES DAILY 09/28/2018 11/05/2018 Inactive cyanocobalamin (vit B-12) 1,000 mcg/mL injection solution RxNorm: 830358 1 Milliliter(s) Inj 09/15/2018 09/15/2018 Inactive Kenalog 40 mg/mL suspension for injection RxNorm: 8383911 Milliliter(s) Inj 09/15/2018 09/15/2018 Inactive alprazolam 1 mg tablet RxNorm: 551134 1/2 Tablet(s) PO TID 08/10/2018 11/05/2018 Inactive cyanocobalamin (vit B-12) 1,000 mcg/mL injection solution RxNorm: 066096 Milliliter(s) Inj 08/04/2018 08/04/2018 Inactive alprazolam 1 mg tablet RxNorm: 066410 1/2 Tablet(s) PO BID 08/04/2018 08/09/2018 Inactive cholestyramine (with sugar) 4 gram powder for susp in a packet RxNorm: 944344 1/2 to 1 packet PO TID take 30 minutes before meals 07/22/2018 12/21/2018 Inactive cyanocobalamin (vit B-12) 1,000 mcg/mL injection solution RxNorm: 706472 1 Milliliter(s) Inj 07/16/2018 07/16/2018 Inactive omeprazole 20 mg capsule,delayed release RxNorm: 085233 Capsule(s) TAKE 1 CAPSULE TWICE DAILY 07/01/2018 06/25/2019 Active cyanocobalamin (vit B-12) 1,000 mcg/mL injection solution RxNorm: 365041 Milliliter(s) Inj 07/01/2018 07/01/2018 Inactive omeprazole 20 mg capsule,delayed release RxNorm: 845336 TAKE 1 CAPSULE TWICE DAILY 07/01/2018 06/30/2018 Inactive alprazolam 1 mg tablet RxNorm: 113137 1 Tablet(s) PO TID 07/01/2018 08/03/2018 Inactive cyanocobalamin (vit B-12) 1,000 mcg/mL injection solution RxNorm: 156502 Milliliter(s) Inj 06/15/2018 06/15/2018 Inactive cyanocobalamin (vit B-12) 1,000 mcg/mL injection solution RxNorm: 549209 Milliliter(s) Inj 06/02/2018 06/02/2018 Inactive fluticasone 50 mcg/actuation nasal spray,suspension RxNorm: 7109510 1 Lee NASAL BID 05/26/2018 05/20/2019 Active Vitamin B-12 1,000 mcg/mL injection solution RxNorm: 183325 1 Milliliter(s) Inj Q2 weeks x2 months and then monthly injections 05/21/2018 No Stop Date Active cyanocobalamin (vit B-12) 1,000 mcg/mL injection solution RxNorm: 221193 Milliliter(s) Inj 05/21/2018 05/21/2018 Inactive fluticasone 50 mcg/actuation nasal spray,suspension RxNorm: 9434512 1 Lee NASAL BID 05/19/2018 05/25/2018 Inactive fluticasone 50 mcg/actuation nasal spray,suspension RxNorm: 3563809 1 Lee NASAL BID 05/18/2018 05/18/2018 Inactive fluticasone 50 mcg/actuation nasal spray,suspension RxNorm: 8940884 1 Lee NASAL BID 05/15/2018 05/17/2018 Inactive fluticasone 50 mcg/actuation nasal spray,suspension RxNorm: 8276147 1 Lee NASAL BID 05/15/2018 05/14/2018 Inactive nystatin 100,000 unit/mL oral suspension RxNorm: 927548 5 Milliliter(s) PO QID 04/21/2018 04/30/2018 Inactive Breo Ellipta 100 mcg-25 mcg/dose powder for inhalation RxNorm: 5647992 1 INH daily 04/09/2018 04/03/2019 Active please call patient with jaramillo before sending prednisone 20 mg tablet RxNorm: 137939 1 Tablet(s) PO BID 04/09/2018 04/13/2018 Inactive start tomorrow Kenalog 40 mg/mL suspension for injection RxNorm: 3662737 1.5 Milliliter(s) Inj 04/09/2018 04/09/2018 Inactive Breo Ellipta 100 mcg-25 mcg/dose powder for inhalation RxNorm: 2376986 1 INH daily 04/09/2018 04/08/2018 Inactive alprazolam 1 mg tablet RxNorm: 761918 1 Tablet(s) PO TID 03/13/2018 06/30/2018 Inactive losartan 100 mg tablet RxNorm: 593911 TAKE 1 TABLET EVERY EVENING 03/02/2018 11/05/2018 Inactive Ventolin HFA 90 mcg/actuation aerosol inhaler RxNorm: 178920 2 INH Q4-6H as needed 12/29/2017 02/26/2018 Inactive Ventolin HFA 90 mcg/actuation aerosol inhaler RxNorm: 734082 2 INH Q4-6H as needed 12/29/2017 12/28/2017 Inactive Diflucan 150 mg tablet RxNorm: 863399 1 Tablet(s) PO daily 11/03/2017 11/05/2017 Inactive please call pt to let herknow when to pick- up the med Keflex 500 mg capsule RxNorm: 333340 1 Capsule(s) PO TID 10/23/2017 10/29/2017 Inactive Kenalog 40 mg/mL suspension for injection RxNorm: 7404073 1 Milliliter(s) Inj 10/16/2017 10/16/2017 Inactive ibuprofen 800 mg tablet RxNorm: 573763 TAKE 1 TABLET THREE TIMES DAILY 10/15/2017 09/27/2018 Inactive Lexapro 10 mg tablet RxNorm: 852459 TAKE 1 TABLET EVERY DAY 10/15/2017 10/09/2018 Inactive hydrocodone 5 mg-acetaminophen 325 mg tablet RxNorm: 600298 1 Tablet(s) PO QID as needed 09/03/2017 07/21/2018 Inactive omeprazole 20 mg capsule,delayed release RxNorm: 786833 1 Capsule(s) PO BID 09/02/2017 06/30/2018 Inactive alprazolam 1 mg tablet RxNorm: 884974 1 Tablet(s) PO TID 09/02/2017 03/12/2018 Inactive metoprolol tartrate 50 mg tablet RxNorm: 874873 1/2 Tablet(s) PO BID 06/26/2017 06/20/2018 Inactive omeprazole 20 mg capsule,delayed release RxNorm: 642393 1 Capsule(s) PO BID 06/05/2017 09/01/2017 Inactive omeprazole 20 mg capsule,delayed release RxNorm: 634577 1 Capsule(s) PO BID 05/28/2017 06/04/2017 Inactive omeprazole 20 mg capsule,delayed release RxNorm: 232750 1 Capsule(s) PO QPM 05/27/2017 05/27/2017 Inactive Breo Ellipta 100 mcg-25 mcg/dose powder for inhalation RxNorm: 1255369 1 INH daily 05/05/2017 04/08/2018 Inactive alprazolam 1 mg tablet RxNorm: 894310 1 Tablet(s) PO TID 02/10/2017 08/07/2017 Inactive metoprolol tartrate 50 mg tablet RxNorm: 664598 1/2 Tablet(s) PO BID 02/10/2017 06/25/2017 Inactive losartan 100 mg tablet RxNorm: 812781 1 Tablet(s) PO QPM 02/10/2017 02/04/2018 Inactive losartan 50 mg tablet RxNorm: 956087 2 Tablet(s) PO QPM 01/23/2017 02/09/2017 Inactive Diflucan 150 mg tablet RxNorm: 744072 1 Tablet(s) PO daily 01/20/2017 01/22/2017 Inactive please call pt to let herknow when to pick- up the med Diflucan 150 mg tablet RxNorm: 566347 1 Tablet(s) PO daily 01/20/2017 01/19/2017 Inactive please call pt to let herknow when to pick- up the med losartan 50 mg tablet RxNorm: 679766 1 Tablet(s) PO QPM 01/14/2017 01/22/2017 Inactive Cipro 500 mg tablet RxNorm: 687677 1 Tablet(s) PO BID 01/08/2017 01/17/2017 Inactive Cipro 500 mg tablet RxNorm: 321676 1 Tablet(s) PO BID 01/08/2017 01/07/2017 Inactive Lexapro 10 mg tablet RxNorm: 814484 TAKE 1 TABLET EVERY DAY 12/20/2016 10/14/2017 Inactive metoprolol tartrate 50 mg tablet RxNorm: 925630 1 Tablet(s) PO in the morning and 1.5 pill at night 12/11/2016 01/13/2017 Inactive spironolactone 25 mg tablet RxNorm: 420195 TAKE 1 TABLET EVERY DAY 11/04/2016 07/21/2018 Inactive metoprolol tartrate 50 mg tablet RxNorm: 607298 TAKE 1 TABLET TWICE DAILY 10/29/2016 12/10/2016 Inactive ibuprofen 800 mg tablet RxNorm: 103062 TAKE 1 TABLET THREE TIMES DAILY 10/21/2016 10/14/2017 Inactive Astepro 0.15 % (205.5 mcg) nasal spray RxNorm: 6517101 1 Lee NASAL BID 10/15/2016 10/14/2016 Inactive Astepro 0.15 % (205.5 mcg) nasal spray RxNorm: 7818850 1 Lee NASAL BID 10/15/2016 07/21/2018 Inactive Astepro 0.15 % (205.5 mcg) nasal spray RxNorm: 3739836 1 Lee NASAL BID 10/15/2016 10/14/2016 Inactive omeprazole 20 mg capsule,delayed release RxNorm: 570679 1 Capsule(s) PO QPM 10/15/2016 05/26/2017 Inactive omeprazole 20 mg capsule,delayed release RxNorm: 953630 1 Capsule(s) QPM 10/15/2016 10/14/2016 Inactive omeprazole 20 mg capsule,delayed release RxNorm: 152187 TAKE 1 CAPSULE TWICE DAILY 09/02/2016 10/14/2016 Inactive Lexapro 10 mg tablet RxNorm: 661112 TAKE 1 TABLET EVERY DAY 08/21/2016 12/19/2016 Inactive calcitonin (salmon) 200 unit/actuation nasal spray RxNorm: 946782 1 Lee NASAL daily ONE SPRAY PER ONE NOSTRIL DAILY- ALTERNATE NOSTRILS DAILY 05/31/2016 05/30/2016 Inactive She will do this for 3 months- If she wants to do a 3 month supply at one time she can without refill calcitonin (salmon) 200 unit/actuation nasal spray RxNorm: 261945 1 Lee NASAL daily ONE SPRAY PER ONE NOSTRIL DAILY- ALTERNATE NOSTRILS DAILY 05/31/2016 07/30/2016 Inactive x3 months- no refills Forteo 20 mcg/dose (600 mcg/2.4 mL) subcutaneous pen injector RxNorm: 5517584 1 injection SQ daily 05/22/2016 05/30/2016 Inactive call pt with jaramillo first Forteo 20 mcg/dose (600 mcg/2.4 mL) subcutaneous pen injector RxNorm: 2349138 1 injection SQ daily 05/22/2016 05/21/2016 Inactive Prolia 60 mg/mL subcutaneous syringe RxNorm: 245808 1 Milliliter(s) SQ every 6 months 05/13/2016 07/21/2018 Inactive Please check jaramillo through insurance and let me know- Thanks! Mary Ellen alprazolam 1 mg tablet RxNorm: 591927 1 Tablet(s) PO TID 05/08/2016 11/01/2016 Inactive Lexapro 10 mg tablet RxNorm: 972710 TAKE 1 TABLET EVERY DAY 04/22/2016 08/20/2016 Inactive spironolactone 25 mg tablet RxNorm: 271237 TAKE 1 TABLET EVERY DAY 04/22/2016 11/03/2016 Inactive Diflucan 150 mg tablet RxNorm: 221471 1 Tablet(s) PO daily 03/20/2016 04/14/2016 Inactive Diflucan 150 mg tablet RxNorm: 284713 1 Tablet(s) PO daily 03/20/2016 03/19/2016 Inactive Augmentin 500 mg-125 mg tablet RxNorm: 018351 1 Tablet(s) PO TID 03/14/2016 03/23/2016 Inactive omeprazole 20 mg capsule,delayed release RxNorm: 114185 1 Tablet(s) PO BID 03/06/2016 09/01/2016 Inactive [SAVINGS FOR NON-COVERED DRUGS -- BIN:302339, PCN: ASPROD1, Group: XXXXX, ID# XXXXXXX, Questions: . THIS IS NOT INSURANCE.] amlodipine 5 mg tablet RxNorm: 294611 TAKE 1 TABLET EVERY DAY 03/01/2016 04/22/2016 Inactive omeprazole 20 mg tablet,delayed release RxNorm: 430551 1 Tablet(s) PO BID 02/27/2016 03/05/2016 Inactive [SAVINGS FOR NON-COVERED DRUGS -- BIN:773421, PCN: ASPROD1, Group: XXXXX, ID# XXXXXXX, Questions: . THIS IS NOT INSURANCE.] spironolactone 25 mg tablet RxNorm: 686078 TAKE 1 TABLET EVERY DAY 12/21/2015 04/21/2016 Inactive Lexapro 10 mg tablet RxNorm: 892027 1 Tablet(s) PO daily 12/19/2015 01/01/2016 Inactive Lexapro 10 mg tablet RxNorm: 123608 1 Tablet(s) PO daily 12/19/2015 02/09/2017 Inactive Lexapro 10 mg tablet RxNorm: 463763 1 Tablet(s) PO daily 12/19/2015 12/18/2015 Inactive alprazolam 1 mg tablet RxNorm: 154483 1 Tablet(s) PO TID 12/01/2015 02/28/2016 Inactive ibuprofen 800 mg tablet RxNorm: 899929 1 Tablet(s) PO TID 10/26/2015 10/20/2016 Inactive alprazolam 1 mg tablet RxNorm: 972765 1 Tablet(s) PO TID 08/23/2015 07/21/2018 Inactive spironolactone 25 mg tablet RxNorm: 813788 1 Tablet(s) PO daily 08/21/2015 12/20/2015 Inactive metoprolol tartrate 50 mg tablet RxNorm: 467643 1 Tablet(s) PO BID 08/10/2015 08/03/2016 Inactive [SAVINGS FOR NON-COVERED DRUGS -- BIN:839476, PCN: ASPROD1, Group: XXXXX, ID# XXXXXXX, Questions: . THIS IS NOT INSURANCE.] omeprazole 20 mg tablet,delayed release RxNorm: 162940 1 Tablet(s) PO BID 08/07/2015 02/02/2016 Inactive [SAVINGS FOR NON-COVERED DRUGS -- BIN:082653, PCN: ASPROD1, Group: XXXXX, ID# XXXXXXX, Questions: . THIS IS NOT INSURANCE.] Keflex 500 mg capsule RxNorm: 100619 1 Capsule(s) PO TID 07/10/2015 07/16/2015 Inactive alprazolam 1 mg tablet RxNorm: 290080 1 Tablet(s) PO TID 06/02/2015 08/22/2015 Inactive alprazolam 1 mg tablet RxNorm: 945452 1 Tablet(s) PO TID 03/29/2015 06/01/2015 Inactive amlodipine 5 mg tablet RxNorm: 667740 1 Tablet(s) PO daily 03/06/2015 02/29/2016 Inactive Nasonex 50 mcg/actuation Lee RxNorm: 524320 1 Lee NASAL daily 03/03/2015 03/02/2015 Inactive Keflex 500 mg capsule RxNorm: 675013 1 Capsule(s) PO TID 03/03/2015 03/02/2015 Inactive Nasonex 50 mcg/actuation Lee RxNorm: 486452 1 Lee NASAL daily 03/03/2015 05/01/2015 Inactive Keflex 500 mg capsule RxNorm: 768567 1 Capsule(s) PO TID 03/03/2015 03/05/2015 Inactive Carafate 1 gram tablet RxNorm: 749683 TAKE 1 TABLET FOUR TIMES DAILY 30 MINUTES BEFORE MEALS AND AT BEDTIME 02/28/2015 12/18/2015 Inactive Kenalog 40 mg/mL suspension for injection RxNorm: 7797701 Milliliter(s) Inj 02/07/2015 02/07/2015 Inactive [SAVINGS FOR NON-COVERED DRUGS -- BIN:919500, PCN: ASPROD1, Group: XXXXX, ID# XXXXXXX, Questions: . THIS IS NOT INSURANCE.] metoprolol tartrate 50 mg tablet RxNorm: 195421 1 Tablet(s) PO BID 02/07/2015 08/09/2015 Inactive [SAVINGS FOR NON-COVERED DRUGS -- BIN:183402, PCN: ASPROD1, Group: XXXXX, ID# XXXXXXX, Questions: . THIS IS NOT INSURANCE.] Carafate 1 gram tablet RxNorm: 498654 1 Tablet(s) PO QID 02/07/2015 02/27/2015 Inactive 30 min before meals and at bedtime omeprazole 20 mg tablet,delayed release RxNorm: 922960 1 Tablet(s) PO BID 02/07/2015 08/05/2015 Inactive [SAVINGS FOR NON-COVERED DRUGS -- BIN:603713, PCN: ASPROD1, Group: XXXXX, ID# XXXXXXX, Questions: . THIS IS NOT INSURANCE.] Vitamin D3 2,000 unit tablet RxNorm: 760082 1 Tablet(s) PO daily No Start Date Active aspirin 81 mg tablet RxNorm: 454422 1 Tablet(s) PO daily No Start Date Active amlodipine 2.5 mg tablet RxNorm: 805404 1 Tablet(s) PO daily No Start Date 03/05/2015 Inactive spironolactone 25 mg tablet RxNorm: 072121 1 Tablet(s) PO daily No Start Date 08/20/2015 Inactive cetirizine 10 mg tablet RxNorm: 7095941 1 Tablet(s) PO daily No Start Date 12/18/2015 Inactive metoprolol tartrate 50 mg tablet RxNorm: 692233 1 Tablet(s) PO daily No Start Date 02/06/2015 Inactive ipratropium bromide 0.06 % nasal spray RxNorm: 649679 nasal No Start Date 12/18/2015 Inactive alprazolam 1 mg tablet RxNorm: 467726 1 Tablet(s) PO TID No Start Date 03/28/2015 Inactive Prolia 60 mg/mL subcutaneous syringe RxNorm: 241272 1 Milliliter(s) SQ every 6 months No Start Date 05/12/2016 Inactive Please check jaramillo through insurance and let me know- Thanks! Mary Ellen ibuprofen 800 mg tablet RxNorm: 617158 1 Tablet(s) PO TID No Start Date 10/25/2015 Inactive Protonix 40 mg tablet,delayed release RxNorm: 526788 1 Tablet(s) PO daily No Start Date 03/05/2015 Inactive Vitamin B-12 1,000 mcg/mL injection solution RxNorm: 920404 1 Milliliter(s) Inj Q2 weeks x2 months and then monthly injections No Start Date 05/20/2018 Inactive loratadine 10 mg tablet RxNorm: 958804 1 Tablet(s) PO daily No Start Date 07/21/2018 Inactive Medication Administered Medication Codes Instructions Start Date Status cyanocobalamin (vit B-12) 1,000 mcg/mL injection solution RxNorm: 983381 Milliliter 12/22/2018 No longer Active cyanocobalamin (vit B-12) 1,000 mcg/mL injection solution RxNorm: 837618 1Milliliter 10/01/2018 No longer Active Kenalog 40 mg/mL suspension for injection RxNorm: 7469619 Milliliter 09/15/2018 No longer Active cyanocobalamin (vit B-12) 1,000 mcg/mL injection solution RxNorm: 731052 1Milliliter 09/15/2018 No longer Active cyanocobalamin (vit B-12) 1,000 mcg/mL injection solution RxNorm: 026649 Milliliter 08/04/2018 No longer Active cyanocobalamin (vit B-12) 1,000 mcg/mL injection solution RxNorm: 640242 1Milliliter 07/16/2018 No longer Active cyanocobalamin (vit B-12) 1,000 mcg/mL injection solution RxNorm: 670743 Milliliter 07/01/2018 No longer Active cyanocobalamin (vit B-12) 1,000 mcg/mL injection solution RxNorm: 283174 Milliliter 06/15/2018 No longer Active cyanocobalamin (vit B-12) 1,000 mcg/mL injection solution RxNorm: 547041 Milliliter 06/02/2018 No longer Active cyanocobalamin (vit B-12) 1,000 mcg/mL injection solution RxNorm: 114018 Milliliter 05/21/2018 No longer Active Kenalog 40 mg/mL suspension for injection RxNorm: 1983097 1.5Milliliter 04/09/2018 No longer Active Kenalog 40 mg/mL suspension for injection RxNorm: 1475496 1Milliliter 10/16/2017 No longer Active Kenalog 40 mg/mL suspension for injection RxNorm: 5157402 Milliliter 02/07/2015 No longer Active Immunizations Vaccine [...] Item Item Code Result Date Comp Metabolic Wqm368 NA 138 mEq/L 09/03/2017 Comp Metabolic Vse753 K 3.9 mEq/L 09/03/2017 Comp Metabolic Zgc274 CL 102 mEq/L 09/03/2017 Comp Metabolic Hqs312 CO2 32.0 mEq/L 09/03/2017 Comp Metabolic Qai649 ANION GAP 8 09/03/2017 Comp Metabolic Eyw307 GLUCOSE 89 mg/dL 09/03/2017 Comp Metabolic Iar969 Creat 0.6 mg/dL 09/03/2017 Comp Metabolic Kyw271 eGFR 103 ml/min/1.73m2 09/03/2017 Comp Metabolic Tct157 BUN 10 mg/dL 09/03/2017 Comp Metabolic Ens977 B/C Ratio 16.7 Ratio 09/03/2017 Comp Metabolic Anc616 CALCIUM 8.9 mg/dL 09/03/2017 Comp Metabolic Qwv186 ALK PHOS 141 U/L 09/03/2017 Comp Metabolic Ajv123 AST(SGOT) 12 U/L 09/03/2017 Comp Metabolic Jxo305 ALT(SGPT) 7 U/L 09/03/2017 Comp Metabolic Lxn076 BILI T 0.6 mg/dL 09/03/2017 Comp Metabolic Gdb964 ALBUMIN 3.6 g/dL 09/03/2017 Comp Metabolic Gxi100 TPRO 6.6 g/dL 09/03/2017 Comp Metabolic Idy789 GLOB 3.0 g/dL 09/03/2017 Comp Metabolic Lng416 A/G Ratio 1.2 Ratio 09/03/2017 Comp Metabolic Yez432 Osmo 274 mOsmo 09/03/2017 Hepatic Paz118 ALBUMIN 3.7 g/dL 08/11/2017 Hepatic Llm823 TPRO 7.0 g/dL 08/11/2017 Hepatic Pqq883 GLOB 3.3 g/dL 08/11/2017 Hepatic Voh194 A/G Ratio 1.1 Ratio 08/11/2017 Hepatic Bnr559 ALK PHOS 85 U/L 08/11/2017 Hepatic Uyq408 ALT(SGPT) 11 U/L 08/11/2017 Hepatic Yum412 AST(SGOT) 16 U/L 08/11/2017 Hepatic Tlg076 BILI T 0.6 mg/dL 08/11/2017 Hepatic Rbh120 BILI D 0.1 mg/dL 08/11/2017 Hepatic Ykq074 BILI I 0.5 mg/dL 08/11/2017 Hepatic Bcr692 ALBUMIN 3.1 g/dL 07/18/2017 Hepatic Nex504 TPRO 5.9 g/dL 07/18/2017 Hepatic Syv391 GLOB 2.8 g/dL 07/18/2017 Hepatic Ouo885 A/G Ratio 1.1 Ratio 07/18/2017 Hepatic Tay173 ALK PHOS 123 U/L 07/18/2017 Hepatic Snp198 ALT(SGPT) 210 U/L 07/18/2017 Hepatic Pub721 AST(SGOT) 71 U/L 07/18/2017 Hepatic Vfc922 BILI T 1.1 mg/dL 07/18/2017 Hepatic Zys554 BILI D 0.4 mg/dL 07/18/2017 Hepatic Qqy240 BILI I 0.7 mg/dL 07/18/2017 Cbc With [...] 32.4 pg 02/25/2017 Cbc With Differential Ord2 Randolph% 7.6 % 02/25/2017 Cbc With Differential Ord2 [...] 1.22 K/ul 02/25/2017 Cbc With Differential Ord2 Randolph ABS# 0.4 K/ul 02/25/2017 Cbc With Differential [...] 32.3 pg 01/02/2017 Cbc With Differential Ord2 Randolph% 7.8 % 01/02/2017 Cbc With Differential Ord2 [...] 0.90 K/ul 01/02/2017 Cbc With Differential Ord2 Randolph ABS# 0.4 K/ul 01/02/2017 Cbc With Differential Ord2 Eos ABS# 0.3 K/ul 01/02/2017 Cbc With Differential Ord2 Baso ABS# 0.0 K/ul 01/02/2017 Lipid Ord30 CHOL 139 mg/dL 12/13/2016 Lipid Ord30 HDL 48.0 mg/dl 12/13/2016 Lipid Ord30 TRIG 84 mg/dL 12/13/2016 Lipid Ord30 LDL 74 mg/dL 12/13/2016 Lipid Ord30 C/HDL 2.9 Ratio 12/13/2016 Comp Metabolic Aff141 NA 137 mEq/L 12/13/2016 Comp Metabolic Ycb510 K 4.8 mEq/L 12/13/2016 Comp Metabolic Jkh989 CL 101 mEq/L 12/13/2016 Comp Metabolic Bdk448 CO2 32.0 mEq/L 12/13/2016 Comp Metabolic Muj766 ANION GAP 9 12/13/2016 Comp Metabolic Eui303 GLUCOSE 95 mg/dL 12/13/2016 Comp Metabolic Cud694 Creat 0.8 mg/dL 12/13/2016 Comp Metabolic Gos030 eGFR 79 ml/min/1.73m2 12/13/2016 Comp Metabolic Bqu829 BUN 15 mg/dL 12/13/2016 Comp Metabolic Cyi730 B/C Ratio 19.7 Ratio 12/13/2016 Comp Metabolic Yfh184 CALCIUM 9.3 mg/dL 12/13/2016 Comp Metabolic Fin667 ALK PHOS 63 U/L 12/13/2016 Comp Metabolic Jpv301 AST(SGOT) 15 U/L 12/13/2016 Comp Metabolic Bem626 ALT(SGPT) 10 U/L 12/13/2016 Comp Metabolic Bln018 BILI T 0.7 mg/dL 12/13/2016 Comp Metabolic Dfv733 ALBUMIN 3.7 g/dL 12/13/2016 Comp Metabolic Tbu918 TPRO 6.8 g/dL 12/13/2016 Comp Metabolic Ybc691 GLOB 3.2 g/dL 12/13/2016 Comp Metabolic Uwz898 A/G Ratio 1.2 Ratio 12/13/2016 Comp Metabolic Pjw318 Osmo 274 mOsmo 12/13/2016 Cbc With Differential [...] 31.9 pg 12/13/2016 Cbc With Differential Ord2 Randolph% 9.9 % 12/13/2016 Cbc With Differential Ord2 [...] 1.17 K/ul 12/13/2016 Cbc With Differential Ord2 Randolph ABS# 0.4 K/ul 12/13/2016 Cbc With Differential [...] 32.1 pg 12/19/2015 Cbc With Differential Ord2 Randolph% 5.9 % 12/19/2015 Cbc With Differential Ord2 [...] 1.53 K/ul 12/19/2015 Cbc With Differential Ord2 Randolph ABS# 0.3 K/ul 12/19/2015 Cbc With Differential [...] Ord30 C/HDL 2.8 Ratio 12/19/2015 Comp Metabolic Dqv682 NA 135 mEq/L 12/19/2015 Comp Metabolic Swd248 K 4.1 mEq/L 12/19/2015 Comp Metabolic Azx535 CL 99 mEq/L 12/19/2015 Comp Metabolic Kqn877 CO2 27.0 mEq/L 12/19/2015 Comp Metabolic Xyc306 ANION GAP 13 12/19/2015 Comp Metabolic Svd234 GLUCOSE 83 mg/dL 12/19/2015 Comp Metabolic Tme968 Creat 0.7 mg/dL 12/19/2015 Comp Metabolic Fuh621 eGFR 88 ml/min/1.73m2 12/19/2015 Comp Metabolic Ete142 BUN 12 mg/dL 12/19/2015 Comp Metabolic Wlm522 B/C Ratio 17.4 Ratio 12/19/2015 Comp Metabolic Per900 CALCIUM 9.0 mg/dL 12/19/2015 Comp Metabolic Zwx003 ALK PHOS 68 U/L 12/19/2015 Comp Metabolic Nqa100 AST(SGOT) 16 U/L 12/19/2015 Comp Metabolic Loc473 ALT(SGPT) 13 U/L 12/19/2015 Comp Metabolic Csa206 BILI T 0.7 mg/dL 12/19/2015 Comp Metabolic Aqh838 ALBUMIN 4.0 g/dL 12/19/2015 Comp Metabolic Rex246 TPRO 7.0 g/dL 12/19/2015 Comp Metabolic Crs720 GLOB 3.0 g/dL 12/19/2015 Comp Metabolic Cbd838 A/G Ratio 1.3 Ratio 12/19/2015 Comp Metabolic Ogy728 Osmo 269 mOsmo 12/19/2015 Review of Systems [...] 4: G0439 12/30/2018 THER/PROPH/DIAG INJ SC/IM CPT-4: 42229 12/22/2018 VITAMIN B12 INJECTION CPT- 4: J3420 12/22/2018 THER/PROPH/DIAG INJ SC/IM CPT-4: 37968 10/01/2018 VITAMIN B12 INJECTION CPT- 4: J3420 10/01/2018 THER/PROPH/DIAG INJ SC/IM CPT-4: 79206 09/15/2018 VITAMIN B12 INJECTION CPT- 4: J3420 09/15/2018 TRIAMCINOLONE ACET INJ NOS CPT-4: J3301 09/15/2018 THER/PROPH/DIAG INJ SC/IM CPT-4: 99108 08/04/2018 VITAMIN B12 INJECTION CPT- 4: J3420 08/04/2018 THER/PROPH/DIAG INJ SC/IM CPT-4: 83854 07/16/2018 VITAMIN B12 INJECTION CPT- 4: J3420 07/16/2018 THER/PROPH/DIAG INJ SC/IM CPT-4: 02904 07/01/2018 VITAMIN B12 INJECTION CPT- 4: J3420 07/01/2018 ADMIN INFLUENZA VIRUS VAC CPT-4: G0008 06/25/2018 FLU VACC PRSV FREE INC ANTIG Formatting Model/CDA Sections, Assigned to/Miranda Ayala CPT-4: [id number] 06/25/2018 THER/PROPH/DIAG INJ SC/IM CPT-4: 46723 06/15/2018 VITAMIN B12 INJECTION CPT- 4: J3420 06/15/2018 THER/PROPH/DIAG INJ SC/IM CPT-4: 67494 06/02/2018 VITAMIN B12 INJECTION CPT- 4: J3420 06/02/2018 THER/PROPH/DIAG INJ SC/IM CPT-4: 18692 05/21/2018 VITAMIN B12 INJECTION CPT- 4: J3420 05/21/2018 TRIAMCINOLONE ACET INJ NOS CPT-4: J3301 04/09/2018 PPPS, SUBSEQ VISIT CPT- 4: G0439 12/18/2017 TRIAMCINOLONE ACET INJ NOS CPT-4: J3301 10/16/2017 DRAIN/INJECT JOINT/BURSA CPT-4: 02234 10/16/2017 PRESCRIP TRANSMIT VIA ERX SY CPT-4: G8553 05/05/2017 PRESCRIP TRANSMIT VIA ERX SY CPT-4: G8553 01/14/2017 PPPS, SUBSEQ VISIT CPT- 4: G0439 12/12/2016 PRESCRIP TRANSMIT VIA ERX SY CPT-4: G8553 10/15/2016 ADMIN PNEUMOCOCCAL VACCINE SNOMED CT: [id number] CPT-4: G0009 08/28/2016 Pneumococcal Polysaccharide Vaccine, 23-Valent, Ad CPT-4: 19570 08/28/2016 PRESCRIP TRANSMIT VIA ERX SY CPT-4: G8553 03/14/2016 PRESCRIP TRANSMIT VIA ERX SY CPT-4: G8553 12/19/2015 THER/PROPH/DIAG INJ SC/IM CPT-4: 27349 02/07/2015 TRIAMCINOLONE ACET INJ NOS CPT-4: J3301 02/07/2015 Vital Signs Date Vital 03/17/2019 Blood Pressure 1: 122/74 Code: 8480-6 BMI: 23.1 Code: 93425-1 Heart Rate 1: 62 bpm Height: 5'1" SpO2: 94% Weight: 122 lbs 12/30/2018 Blood Pressure 1: 112/68 Code: 8480-6 BMI: 24.0 Code: 94426-4 Heart Rate 1: 66 bpm Height: 5'1" SpO2: 96% Weight: 127 lbs 12/22/2018 Blood Pressure 1: 110/72 Code: 8480-6 BMI: 24.0 Code: 97365-1 Heart Rate 1: 64 bpm Height: 5'1" SpO2: 95% Weight: 127 lbs 09/15/2018 Blood Pressure 1: 106/70 Code: 8480-6 BMI: 24.9 Code: 73057-5 Heart Rate 1: 74 bpm Height: 5'1" SpO2: 95% Weight: 132 lbs 08/18/2018 Blood Pressure 1: 128/70 Code: 8480-6 BMI: 25.1 Code: 23832-6 Heart Rate 1: 74 bpm Height: 5'1" SpO2: 95% Weight: 133 lbs 08/04/2018 Blood Pressure 1: 120/80 Code: 8480-6 Blood Pressure 1: 122/80 Code: 8480-6 Blood Pressure 2: 120/82 Code: 8480-6 BMI: 25.5 Code: 00404-5 Heart Rate 1: 63 bpm Heart Rate 1: 67 bpm Height: 5'1" Weight: 135 lbs Weight: 07/22/2018 Blood Pressure 1: 120/82 Code: 8480-6 BMI: 24.9 Code: 06393-4 Heart Rate 1: 64 bpm Height: 5'1" SpO2: 95% Weight: 132 lbs 04/21/2018 Blood Pressure 1: 108/70 Code: 8480-6 BMI: 24.4 Code: 97047-3 Heart Rate 1: 62 bpm Height: 5'1" SpO2: 94% Weight: 129 lbs 04/09/2018 Blood Pressure 1: 138/86 Code: 8480-6 BMI: 25.5 Code: 34132-8 Heart Rate 1: 64 bpm Height: 5'1" SpO2: 99% Temperature: 36.4 (C) / 97.5 (F) Weight: 135 lbs 01/19/2018 Blood Pressure 1: 128/76 Code: 8480-6 BMI: 25.9 Code: 22122-9 Heart Rate 1: 65 bpm Height: 5'1" SpO2: 98% Weight: 137 lbs 12/18/2017 Blood Pressure 1: 144/82 Code: 8480-6 BMI: 26.1 Code: 63486-2 Heart Rate 1: 57 bpm Height: 5'1" SpO2: 97% Waist Measure (cm): 74 cm Weight: 138 lbs 10/16/2017 Blood Pressure 1: 142/88 Code: 8480-6 BMI: 25.5 Code: 76464-1 Heart Rate 1: 63 bpm Height: 5'1" SpO2: 97% Weight: 135 lbs 09/03/2017 Blood Pressure 1: 144/90 Code: 8480-6 BMI: 26.3 Code: 71825-0 Heart Rate 1: 91 bpm Height: 5'1" SpO2: 96% Weight: 139 lbs 07/31/2017 Blood Pressure 1: 136/90 Code: 8480-6 BMI: 26.3 Code: 79109-6 Height: 5'1" Weight: 139 lbs 07/18/2017 Blood Pressure 1: 136/84 Code: 8480-6 06/16/2017 Blood Pressure 1: 136/84 Code: 8480-6 BMI: 26.5 Code: 38987-9 Heart Rate 1: 72 bpm Height: 5'1" SpO2: 97% Weight: 140 lbs 05/28/2017 Blood Pressure 1: 138/78 Code: 8480-6 BMI: 26.1 Code: 90342-1 Heart Rate 1: 70 bpm Height: 5'1" SpO2: 98% Weight: 138 lbs 05/05/2017 Blood Pressure 1: 140/86 Code: 8480-6 BMI: 25.3 Code: 34498-7 Heart Rate 1: 66 bpm Height: 5'1" SpO2: 99% Weight: 134 lbs 03/13/2017 Blood Pressure 1: 126/74 Code: 8480-6 BMI: 25.3 Code: 08671-2 Heart Rate 1: 73 bpm Height: 5'1" SpO2: 98% Weight: 134 lbs 02/10/2017 Blood Pressure 1: 148/88 Code: 8480-6 BMI: 25.9 Code: 19221-1 Heart Rate 1: 84 bpm Height: 5'1" SpO2: 97% Weight: 137 lbs 01/14/2017 Blood Pressure 1: 134/86 Code: 8480-6 BMI: 25.7 Code: 36195-6 Heart Rate 1: 83 bpm Height: 5'1" SpO2: 95% Weight: 136 lbs 01/07/2017 Blood Pressure 1: 136/88 Code: 8480-6 BMI: 25.1 Code: 25087-9 Heart Rate 1: 86 bpm Height: 5'1" SpO2: 94% Weight: 133 lbs 01/02/2017 Blood Pressure 1: 122/68 Code: 8480-6 Blood Pressure 2: 116/78 Code: 8480-6 01/01/2017 Blood Pressure 1: 90/52 Code: 8480-6 BMI: 25.1 Code: 59223- 5 Heart Rate 1: 86 bpm Height: 5'1" SpO2: 99% Weight: 133 lbs 12/20/2016 Blood Pressure 1: 120/76 Code: 8480-6 12/12/2016 Blood Pressure 1: 130/72 Code: 8480-6 BMI: 24.8 Code: 95646-5 Heart Rate 1: 62 bpm Height: 5'1" SpO2: 98% Waist Measure (cm): 79 cm Weight: 131 lbs 12/11/2016 Blood Pressure 1: 132/70 Code: 8480-6 BMI: 24.8 Code: 79572-8 Heart Rate 1: 60 bpm Height: 5'1" Weight: 131 lbs 10/15/2016 Blood Pressure 1: 108/66 Code: 8480-6 BMI: 24.8 Code: 97545-0 Heart Rate 1: 60 bpm Height: 5'1" Weight: 131 lbs 07/17/2016 Blood Pressure 1: 128/82 Code: 8480-6 BMI: 25.3 Code: 58323-3 Heart Rate 1: 50 bpm Height: 5'2" Weight: 136 lbs 05/15/2016 Blood Pressure 1: 108/70 Code: 8480-6 BMI: 23.4 Code: 74375-7 Heart Rate 1: 54 bpm Height: 5'2" SpO2: 96% Weight: 126 lbs 04/23/2016 Blood Pressure 1: 112/60 Code: 8480-6 BMI: 23.6 Code: 43470-8 Heart Rate 1: 92 bpm Height: 5'2" SpO2: 95% Weight: 127 lbs 03/14/2016 Blood Pressure 1: 118/74 Code: 8480-6 BMI: 24.0 Code: 68665-4 Heart Rate 1: 51 bpm Height: 5'2" SpO2: 94% Temperature: 36.8 (C) / 98.3 (F) Weight: 129 lbs 02/19/2016 Blood Pressure 1: 110/62 Code: 8480-6 BMI: 23.4 Code: 77635-8 Heart Rate 1: 74 bpm Height: 5'2" SpO2: 97% Weight: 126 lbs 12/19/2015 Blood Pressure 1: 108/74 Code: 8480-6 BMI: 23.6 Code: 65394-1 Heart Rate 1: 52 bpm Height: 5'2" Weight: 127 lbs 03/06/2015 Blood Pressure 1: 136/88 Code: 8480-6 Heart Rate 1: 64 bpm Weight: 129 lbs 02/07/2015 Blood Pressure 1: 142/90 Code: 8480-6 BMI: 24.5 Code: 57031-4 Heart Rate 1: 82 bpm Height: 5'2" [...] Chest pain, unspecified[ICD10: R07.9] Pebbles Burden MD, [facility] CPT- 4: 38229 03/17/2019 ([id number] EST. PATIENT, LEVEL IV Diagnosis: Other vitamin B12 deficiency anemias[ICD10: D51.8] [facility] CPT-4: 53171 12/22/2018 [id number] 14658 EST. PATIENT, LEVEL IV Diagnosis: Chest pain, unspecified[ICD10: R07.9] Diagnosis: Other vitamin B12 deficiency anemias[ICD10: D51.8] Diagnosis: Other allergic rhinitis[ICD10: J30.89] Mallorie Burden MD, [facility] CPT-4: 44566 09/15/2018 ([id number]) 80949 EST. PATIENT, LEVEL III Diagnosis: Essential (primary) hypertension[ICD10: I10] Diagnosis: Fecal urgency[ICD10: R15.2] Kim Burden MD [facility] CPT-4: 36960 08/18/2018 ([id number]) 12904 EST. PATIENT, LEVEL IV Diagnosis: Other vitamin B12 deficiency anemias[ICD10: D51.8] Diagnosis: Essential (primary) hypertension[ICD10: I10] Diagnosis: Major depressive disorder, recurrent, mild[ICD10: F33.0] Diagnosis: Unsteadiness on feet[ICD10: R26.81] Kim Burden MD [facility] CPT- 4: 69145 08/04/2018 ([id number]) 67236 EST. PATIENT, LEVEL IV Diagnosis: Fecal urgency[ICD10: R15.2] Diagnosis: Generalized abdominal pain[ICD10: R10.84] Diagnosis: Essential (primary) hypertension[ICD10: I10] Kim Burden MD [facility] CPT-4: 01204 07/22/2018 ([id number]) 48199 EST. PATIENT, LEVEL IV Diagnosis: Essential (primary) hypertension[ICD10: I10] Diagnosis: Other emphysema[ICD10: J43.8] Diagnosis: Candidal stomatitis[ICD10: B37.0] Kim Burden MD [facility] CPT- 4: 87259 04/21/2018 ([id number]) 72132 EST. PATIENT, LEVEL III Diagnosis: Chronic obstructive pulmonary disease with (acute) exacerbation[ICD10: J44.1] Mallorie Burden MD, [facility] CPT-4: 27926 04/09/2018 ([id number]) 82919 EST. PATIENT, LEVEL IV Diagnosis: Essential (primary) hypertension[ICD10: I10] Diagnosis: Other emphysema[ICD10: J43.8] Kim Burden MD [facility] CPT-4: 33519 01/19/2018 ([id number]) 98303 EST. PATIENT, LEVEL IV Diagnosis: Essential (primary) hypertension[ICD10: I10] Diagnosis: Other emphysema[ICD10: J43.8] Diagnosis: Dependence on supplemental oxygen[ICD10: Z99.81] Diagnosis: Hypoxemia[ICD10: R09.02] Diagnosis: Pain in left knee[ICD10: M25.562] Diagnosis: Effusion, left knee[ICD10: M25.462] Kim Burden MD, [facility] CPT- 4: 45972 10/16/2017 89091 EST. PATIENT, LEVEL III Diagnosis: Pain in thoracic spine[ICD10: M54.6] Pebbles Burden MD, [facility] CPT- 4: 31400 09/03/2017 ([id number]) 36959 EST. PATIENT, LEVEL III Diagnosis: Essential (primary) hypertension[ICD10: I10] Diagnosis: Other emphysema[ICD10: J43.8] Kim Burden MD, [facility] CPT-4: 21630 07/31/2017 ([id number]) Miscellaneous no charge Diagnosis: Essential (primary) hypertension[ICD10: I10] Mallorie Burden MD, [facility] CPT-4: 71018 07/18/2017 ([id number]) 99454 EST. PATIENT, LEVEL III Diagnosis: Pain in left knee[ICD10: M25.562] Diagnosis: Effusion, left knee[ICD10: M25.462] Mallorie Burden MD, [facility] CPT-4: 99661 06/16/2017 ([id number]) 80164 EST. PATIENT, LEVEL III Diagnosis: Essential (primary) hypertension[ICD10: I10] Diagnosis: Unsteadiness on feet[ICD10: R26.81] Kim Burden MD, [facility] CPT- 4: 37531 05/28/2017 ([id number]) 71595 EST. PATIENT, LEVEL IV Diagnosis: Essential (primary) hypertension[ICD10: I10] Diagnosis: Chronic obstructive pulmonary disease with acute lower respiratory infection[ICD10: J44.0] Kim Burden MD, [facility] CPT-4: 02111 05/05/2017 ([id number]) 98848 EST. PATIENT, LEVEL IV Diagnosis: Essential (primary) hypertension[ICD10: I10] Diagnosis: Major depressive disorder, recurrent, mild[ICD10: F33.0] Kim Burden MD, [facility] CPT-4: 36490 03/13/2017 ([id number]) 36379 EST. PATIENT, LEVEL IV Diagnosis: Essential (primary) hypertension[ICD10: I10] Diagnosis: Gastro-esophageal reflux disease without esophagitis[ICD10: K21.9] Diagnosis: Chronic obstructive pulmonary disease, unspecified[ICD10: J44.9] Kim Burden MD [facility] CPT-4: 62156 02/10/2017 ([id number]) 47867 EST. PATIENT, LEVEL IV Diagnosis: Essential (primary) hypertension[ICD10: I10] Diagnosis: Gastro-esophageal reflux disease without esophagitis[ICD10: K21.9] Diagnosis: Chronic obstructive pulmonary disease with acute lower respiratory infection[ICD10: J44.0] Kim Burden MD, [facility] CPT-4: 34200 01/14/2017 50953 EST. PATIENT, LEVEL IV Diagnosis: Other fatigue[ICD10: R53.83] Diagnosis: Other malaise[ICD10: R53.81] Diagnosis: Headache[ICD10: R51] Diagnosis: Palpitations[ICD10: R00.2] Diagnosis: Dehydration[ICD10: E86.0] Pebbles Burden MD, [facility] CPT-4: 35566 01/07/2017 ([id number]) Miscellaneous no charge Diagnosis: Essential (primary) hypertension[ICD10: I10] Pebbles Burden MD, [facility] CPT-4: 86230 01/02/2017 95375 EST. PATIENT, LEVEL IV Diagnosis: Chronic obstructive pulmonary disease, unspecified[ICD10: J44.9] Diagnosis: Essential (primary) hypertension[ICD10: I10] Diagnosis: Other fatigue[ICD10: R53.83] Pebbles Burden MD [facility] CPT-4: 08688 01/01/2017 ([id number]) Miscellaneous no charge Diagnosis: Essential (primary) hypertension[ICD10: I10] Pebbles Burden MD, [facility] CPT-4: 82769 12/20/2016 ([id number]) 89647 EST. PATIENT, LEVEL IV Diagnosis: Essential (primary) hypertension[ICD10: I10] Diagnosis: Major depressive disorder, recurrent, mild[ICD10: F33.0] Diagnosis: Headache[ICD10: R51] Diagnosis: Other fatigue[ICD10: R53.83] Kim Burden MD, [facility] CPT-4: 48614 12/11/2016 ([id number]) 19628 EST. PATIENT, LEVEL IV Diagnosis: Essential (primary) hypertension[ICD10: I10] Diagnosis: Other allergic rhinitis[ICD10: J30.89] Diagnosis: Gastro-esophageal reflux disease without esophagitis[ICD10: K21.9] Kim Burden MD, [facility] CPT-4: 84705 10/15/2016 ([id number]) 04625 EST. PATIENT, LEVEL III Diagnosis: Essential (primary) hypertension[ICD10: I10] Diagnosis: Major depressive disorder, recurrent, mild[ICD10: F33.0] Kim Burden MD [facility] CPT-4: 48092 07/17/2016 ([id number]) 80138 EST. PATIENT, LEVEL III Diagnosis: Pain in left hip[ICD10: M25.552] Diagnosis: Acute laryngopharyngitis[ICD10: J06.0] Kim Burden MD, [facility] CPT-4: 07957 05/15/2016 ([id number]) 36427 EST. PATIENT, LEVEL III Diagnosis: Fracture of unspecified parts of lumbosacral spine and pelvis, initial encounter for closed fracture[ICD10: S32.9XXA] Diagnosis: Essential (primary) hypertension[ICD10: I10] Kim Burden MD, [facility] CPT-4: 50969 04/23/2016 86340 EST. PATIENT, LEVEL IV Diagnosis: Acute laryngopharyngitis[ICD10: J06.0] Diagnosis: Other allergic rhinitis[ICD10: J30.89] Pebbles Burden MD, [facility] CPT- 4: 45498 03/14/2016 96399 EST. PATIENT, LEVEL IV Diagnosis: Dysuria[ICD10: R30.0] Diagnosis: Left lower quadrant pain[ICD10: R10.32] Pebbles Burden MD, [facility] CPT-4: 41187 02/19/2016 ([id number]) 89747 EST. PATIENT, LEVEL IV Diagnosis: Essential (primary) hypertension[ICD10: I10] Diagnosis: Gastro-esophageal reflux disease without esophagitis[ICD10: K21.9] Diagnosis: Major depressive disorder, recurrent, mild[ICD10: F33.0] [facility] CPT-4: 14954 12/19/2015 ([id number]) 19482 EST. PATIENT, LEVEL IV Diagnosis: ESSENTIAL HYPERTENSION[ICD9: 401.9] Diagnosis: ACUTE URI[ICD9: 465.9] [facility] CPT-4: 70459 03/06/2015 ([id number]) OFFICE VISIT, NEW - LEVEL 4 Diagnosis: ESOPHAGEAL REFLUX[ICD9: 530.81] Diagnosis: ESSENTIAL HYPERTENSION[ICD9: 401.9] Diagnosis: COPD (chronic obstructive pulmonary disease)[ICD9: 496] Diagnosis: ALLERGIC RHINITIS[ICD9: 477.9] [facility] CPT-4: 36939 02/07/2015 Plan of Care Planned Activity Notes Codes Status Date Care Plan: Referral Order SNOMED-CT : [id number] Pending 03/23/2019 Visit Plan: Hypertension - The [...] establish care 03/17/2019 Appointment: Pebbles Lund WPtel: [address] [place], [place] [phone] (30 min) [facility] 03/17/2019 Patient Education: Patient Medication Summary Completed [...] Summary Completed 12/30/2018 Appointment: Mallorie Wetzel WPtel: [phone] [phone] [place] [address] - Annual Wellness Visit 12/28/2018 Visit Plan: [...] b12 injection. 12/22/2018 App[facility]ment[phone] (15 min) Moderate 12/22/2018 Patient Education: Patient [...] the office 09/15/2018 Appointment: Mallorie Wetzel WPtel: [phone] [phone] [place] (30 min) Complex 09/15/2018 Patient Education: Patient Medication Summary Completed 09/15/2018 Care Plan: Referral Order SNOMED-CT : [id number] Pending 09/15/2018 Appointment: Kim Burden WPtel: [facility]5 [facility] (15 min) Moderate 08/25/2018 Visit Plan: [...] a day. 08/18/2018 Appointment: Kim Burden WPtel: [facility]3 [facility] (15 min) Moderate 08/18/2018 Patient Education: [...] of anxiolytic. 08/04/2018 Appointment: Kim Burden WPtel: [facility]6 [facility] (15 min) Moderate 08/04/2018 Appointment: Nurse [...] home. 07/22/2018 Appointment: [facility]el[phone] [place] (15 min) Moderate 07/22/2018 Patient Education: Patient [...] and swallow. 04/21/2018 Appointment: [phone] (15 min) Moderate 04/21/2018 Patient Education: Patient Medication Summary Completed 04/21/2018 Visit Plan: COPD EXACERBATION - COPD is a chronic problem for this patient, however, the pt is experiencing an acute exacerbation of the COPD. Pt is to receive appropriate treatment as an out patient, but the pt is aware that if symptoms worsen or do not improve, to call [facility] for instructions, or go to the EMERGENCY [...] acute changes. 04/09/2018 Appointment: [phone] [phone] [place] (30 min) Complex 04/09/2018 Patient [...] acute changes. 01/19/2018 Appointment: Kim Burden WPtel: [address] [place], [place] [phone] (15 min) Moderate 01/19/2018 Patient Education: Patient Medication Summary Completed 01/19/2018 Appointment: Kim Burden WPtel: [address] [place], [place] [phone] (15 min) Moderate 01/14/2018 Visit Plan: Medicare [...] care surrogate. 12/18/2017 Appointment: Pebbles Lund WPtel: [facility] [facility] - Annual Wellness Visit 12/18/2017 [...] at home. 10/16/2017 Appointment: Kim Burden WPtel: [facility]5 [facility] (15 min) Moderate 10/16/2017 Patient Education: Patient [...] or concerns. 09/03/2017 Appointment: Pebbles Lund WPtel: [facility] [place] (15 min) Moderate 09/03/2017 Patient Education: Patient Medication Summary Completed 09/03/2017 Appointment: [facility] Bur[facility]Ptel[phone] [facility] [place] (15 min) Moderate 08/11/2017 Appointment: [facility] Burden [facility]Ptel: [phone] [facility] [place] (15 min) Moderate 08/11/2017 Patient Education: [...] current treatment. 07/31/2017 Appointment: Kim Burden WPtel: [facility] (15 min) Moderate 07/31/2017 Patient Education: Patient Medication Summary Completed 07/31/2017 Appointment: Nurse Visit 07/18/2017 Patient Education: Patient Medication Summary Completed 07/18/2017 Patient Education: Patient Medication Summary Completed 07/18/2017 Appointment: Kim Burden WPtel: [facility]3 [facility] (15 min) Moderate 06/30/2017 Visit Plan: Effusion left knee-fall 2 weeks ago-recommend compression of joint and refer to Ortho for evaluation and treatment-will refer to Dr Pryor/Quinton Mccormick. Patient verbalized understanding of plan. 06/16/2017 Appointment: Mallorie Wetzel WPtel: [facility]6 [phone] [place] (30 min) Complex 06/16/2017 Patient Education: [...] when active. 05/28/2017 Appointment: Kim Burden WPtel: [facility] (15 min) Moderate 05/28/2017 Patient Education: Patient [...] changes. 05/05/2017 Appointment: Kim Burden WPtel: [phone] [facility] (15 min) Moderate 05/05/2017 Patient Education: [...] medications. 03/13/2017 Appointment: Kim Burden WPtel: [phone] [facility] (15 min) Moderate 03/13/2017 Patient Education: [...] worsening. 02/10/2017 Appointment: Kim Burden WPtel: [phone] [facility] (15 min) Moderate 02/10/2017 Patient Education: [...] [facility]el[phone] (15 min) [facility] 01/14/2017 Patient Education: Patient Medication Summary Completed 01/14/2017 Visit Plan: Dehydration, palpitations, malaise, headache - will send for outpatient fluids, will check labs, ekg. Pt is to restart her spironolactone, continue to monitor blood pressures and heart rates and notify clinic if symptoms do not improve, if they worsen, or with any questions or concerns. 01/07/2017 Appointment: Pebbles Lund WPtel[phone] [facility] (30 min) Complex 01/07/2017 Patient Education: [...] pressures. 01/01/2017 Appointment: Pebbles Lund WPtel[facility] [phone] [facility] (30 min) Complex 01/01/2017 Patient Education: Patient [...] surrogate. 12/12/2016 Appointment: Pebbles Lund [facility]Ptel[facility] [phone] [facility] [facility] - Annual Wellness Visit 12/12/2016 [...] time. 12/11/2016 Appointment: Kim Burden WPtel: [phone] [facility] (15 min) Moderate 12/11/2016 Patient Education: Patient Medication Summary Completed 12/11/2016 Appointment: Mallorie Wetzel [facility]Ptel: [phone] [phone] (30 min) Complex 12/10/2016 Visit Plan: Hypertension [...] not improving. 10/15/2016 Appointment: Kim Burden WPtel: [phone] [facility] (15 min) Moderate 10/15/2016 Patient Education: Patient [...] restaurant. 07/17/2016 Appointment: Kim Burden WPtel: [phone] [facility] (15 min) Moderate 07/17/2016 Patient Education: Patient Medication Summary Completed 07/17/2016 Appointment: [facility] Burden WPtel[phone] [facility] (15 min) Moderate 06/10/2016 Visit Plan: Hip pain - persistent but improving - continue with current treatment plan. Pt to call if her symptoms are not improving or if her hip pain worsens. URI symptoms - supportive care, use otc allergy medications. 05/15/2016 Appointment: Kim Burden WPtel: [phone] [facility] (15 min) Moderate 05/15/2016 Patient Education: Patient [...] improving. 04/23/2016 Appointment: Kim Burden WPtel: [phone] [facility] (15 min) Moderate 04/23/2016 Patient Education: Patient Medication Summary Completed 04/23/2016 Patient Education: Hypertension Completed 04/23/2016 Care Plan: X-RAY EXAM OF ABDOMEN LOINC : 63051-7 Pending 03/18/2016 Visit Plan: URI - Pt [...] allergy spray. 03/14/2016 Appointment: Pebbles Lund WPtel: [address] [place], [place] [phone] (30 min) Complex 03/14/2016 Patient Education: Patient Medication Summary Completed 03/14/2016 Patient Education: Patient Medication Summary Completed 02/29/2016 Visit Plan: Flank pain - pt is currently being treated for UTI, but is having continued left flank pain - will get KUB - pt is to notify clinic if symptoms do not improve, or with any concerns. 02/19/2016 Appointment: Pebbles Lund WPtel: [address] [place], [place] [phone] (30 min) Complex 02/19/2016 Patient Education: Patient Medication Summary Completed 02/19/2016 Appointment: Kim Burden WPtel: [address] [place], [place] [phone] (15 min) Moderate 01/22/2016 Visit Plan: Hypertension [...] not improving. 12/19/2015 Appointment: Kim Burden WPtel: [facility]5 [facility] (15 min) Moderate 12/19/2015 Patient Education: Patient [...] Finish RX. 03/06/2015 Appointment: Kim Burden WPtel: [facility]9 [facility] Follow up 03/06/2015 Patient Education: Patient Medication [...] Completed 02/07/2015 Care Plan: SCREENINGMAMMOGRAPHYDIGITAL LOINC : 77060-7 Ordered 02/07/2015 Care Plan: COMPLETE CBC AUTOMATED LOINC : 79928-7 Ordered 02/07/2015 Referral: Consuelo Chavez Referral Appointment Requested Referral: Consuelo Chavez Referral Initiated Instructions Comment . Dehydration, palpitations, malaise, headache [...] to help decrease GI upset./loose stools - [facility] or [employer] [facility] . Hypertension - well controlled - continue [...] care surrogate. TAKE WITH FOOD AND PROBIOTIC (etouches OR [employer]) . URI - Pt advised to increase [...] situational exposure. No change in current medications. continue with the questran - just decrease [...] point of constipation. Vitamin b12 injection. . 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 . Fecal urgency - Abdominal discomfort - [...] change in blood pressure readings at home. CHECK YOUR BLOOD PRESSURE AND PULSE AT [...] medication. Kenalog injection today in the office. kenalog . Chest pain- refer to Dr [...] B12 def-injection today in the office . Hypertension - well controlled - continue with current medications, continue with no added salt diet. Pt has been encouraged to exercise daily. The pt has been advised to call the office if there are any acute concerns about change in blood pressure readings at home. Diarrhea - improved on the questran - increase to 1/2 packet twice a day. change the metoprolol to 1 pill in [...] and oxygen concentrator when at home. . Medicare Exam - today we discussed [...] DOPA paperwork for health care surrogate. . COPD - chronic problem for this [...] office if the symptoms are not improving. restart breo - every day - even [...] refer to cardiology to establish care . Flank pain - pt is currently [...] patient is stable, monitor for acute changes. decrease alprazolam to 1/2 pill twice a [...]
--- OUTSIDE RECORDS SUMMARY | 2019-04-06 08:27 | XMS REPORT | CCD ---
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 Name Role Phone PP Unavailable CCM Unavailable Summary Purpose Interface Exchange Insurance Providers Payer name Policy type / Coverage type Covered constitution party ID Effective Begin Date Effective End Date WPS Medicare Part B Medicare Part B [id number] 2018 Unknown AETNA Medicare Part B [id number] Unknown Family history Brother Diagnosis Age At [...] Unknown 3 02/07/[address]: 3688720 Quit over 10 years ago 199302/07/2015 Number [...] Fill Instructions Keflex 500 mg capsule RxNorm: 531801 1 Capsule(s) PO TID 01/27/2019 02/02/2019 Inactive Keflex 500 mg capsule RxNorm: 774772 1 Capsule(s) PO TID 01/27/2019 01/26/2019 Inactive Lexapro 20 mg tablet RxNorm: 535128 Tablet(s) PO TAKE 1 TABLET EVERY DAY 01/07/2019 01/01/2020 Active Lexapro 20 mg tablet RxNorm: 676184 Tablet(s) PO TAKE 1 TABLET EVERY DAY 01/07/2019 01/06/2019 Inactive Lexapro 20 mg tablet RxNorm: 579811 Tablet(s) PO TAKE 1 TABLET EVERY DAY 01/07/2019 01/06/2019 Inactive mupirocin 2 % topical ointment RxNorm: 306202 1 Application TOP BID 12/30/2018 No Stop Date Active cyanocobalamin (vit B-12) 1,000 mcg/mL injection solution RxNorm: 453656 Milliliter(s) Inj 12/22/2018 12/22/2018 Inactive metoprolol tartrate 50 mg tablet RxNorm: 985881 1/2 Tablet(s) PO BID 11/06/2018 10/31/2019 Active alprazolam 1 mg tablet RxNorm: 176083 1/2 Tablet(s) PO TID 11/06/2018 08/02/2019 Active ibuprofen 800 mg tablet RxNorm: 604441 Tablet(s) TAKE 1 TABLET THREE TIMES DAILY 11/06/2018 10/31/2019 Active losartan 100 mg tablet RxNorm: 686539 Tablet(s) TAKE 1 TABLET EVERY EVENING 11/06/2018 10/31/2019 Active Lexapro 10 mg tablet RxNorm: 346745 Tablet(s) TAKE 1 TABLET EVERY DAY 11/06/2018 01/06/2019 Inactive cyanocobalamin (vit B-12) 1,000 mcg/mL injection solution RxNorm: 323516 1 Milliliter(s) Inj 10/01/2018 10/01/2018 Inactive ibuprofen 800 mg tablet RxNorm: 597628 TAKE 1 TABLET THREE TIMES DAILY 09/28/2018 11/05/2018 Inactive cyanocobalamin (vit B-12) 1,000 mcg/mL injection solution RxNorm: 015436 1 Milliliter(s) Inj 09/15/2018 09/15/2018 Inactive Kenalog 40 mg/mL suspension for injection RxNorm: 6576833 Milliliter(s) Inj 09/15/2018 09/15/2018 Inactive alprazolam 1 mg tablet RxNorm: 474796 1/2 Tablet(s) PO TID 08/10/2018 11/05/2018 Inactive cyanocobalamin (vit B-12) 1,000 mcg/mL injection solution RxNorm: 141671 Milliliter(s) Inj 08/04/2018 08/04/2018 Inactive alprazolam 1 mg tablet RxNorm: 295298 1/2 Tablet(s) PO BID 08/04/2018 08/09/2018 Inactive cholestyramine (with sugar) 4 gram powder for susp in a packet RxNorm: 837356 1/2 to 1 packet PO TID take 30 minutes before meals 07/22/2018 12/21/2018 Inactive cyanocobalamin (vit B-12) 1,000 mcg/mL injection solution RxNorm: 713461 1 Milliliter(s) Inj 07/16/2018 07/16/2018 Inactive omeprazole 20 mg capsule,delayed release RxNorm: 012393 Capsule(s) TAKE 1 CAPSULE TWICE DAILY 07/01/2018 06/25/2019 Active cyanocobalamin (vit B-12) 1,000 mcg/mL injection solution RxNorm: 415456 Milliliter(s) Inj 07/01/2018 07/01/2018 Inactive omeprazole 20 mg capsule,delayed release RxNorm: 389069 TAKE 1 CAPSULE TWICE DAILY 07/01/2018 06/30/2018 Inactive alprazolam 1 mg tablet RxNorm: 814797 1 Tablet(s) PO TID 07/01/2018 08/03/2018 Inactive cyanocobalamin (vit B-12) 1,000 mcg/mL injection solution RxNorm: 505219 Milliliter(s) Inj 06/15/2018 06/15/2018 Inactive cyanocobalamin (vit B-12) 1,000 mcg/mL injection solution RxNorm: 724600 Milliliter(s) Inj 06/02/2018 06/02/2018 Inactive fluticasone 50 mcg/actuation nasal spray,suspension RxNorm: 5482475 1 [place] NASAL BID 05/26/2018 05/20/2019 Active Vitamin B-12 1,000 mcg/mL injection solution RxNorm: 591674 1 Milliliter(s) Inj Q2 weeks x2 months and then monthly injections 05/21/2018 No Stop Date Active cyanocobalamin (vit B-12) 1,000 mcg/mL injection solution RxNorm: 805412 Milliliter(s) Inj 05/21/2018 05/21/2018 Inactive fluticasone 50 mcg/actuation nasal spray,suspension RxNorm: 0670958 1 [place] NASAL BID 05/19/2018 05/25/2018 Inactive fluticasone 50 mcg/actuation nasal spray,suspension RxNorm: 4917299 1 [place] NASAL BID 05/18/2018 05/18/2018 Inactive fluticasone 50 mcg/actuation nasal spray,suspension RxNorm: 5395588 1 [place] NASAL BID 05/15/2018 05/17/2018 Inactive fluticasone 50 mcg/actuation nasal spray,suspension RxNorm: 6036093 1 [place] NASAL BID 05/15/2018 05/14/2018 Inactive nystatin 100,000 unit/mL oral suspension RxNorm: 504196 5 Milliliter(s) PO QID 04/21/2018 04/30/2018 Inactive Breo Ellipta 100 mcg-25 mcg/dose powder for inhalation RxNorm: 2196041 1 INH daily 04/09/2018 04/03/2019 Active please call patient with jaramillo before sending prednisone 20 mg tablet RxNorm: 352041 1 Tablet(s) PO BID 04/09/2018 04/13/2018 Inactive start tomorrow Kenalog 40 mg/mL suspension for injection RxNorm: 9414278 1.5 Milliliter(s) Inj 04/09/2018 04/09/2018 Inactive Breo Ellipta 100 mcg-25 mcg/dose powder for inhalation RxNorm: 5867999 1 INH daily 04/09/2018 04/08/2018 Inactive alprazolam 1 mg tablet RxNorm: 288482 1 Tablet(s) PO TID 03/13/2018 06/30/2018 Inactive losartan 100 mg tablet RxNorm: 572739 TAKE 1 TABLET EVERY EVENING 03/02/2018 11/05/2018 Inactive Ventolin HFA 90 mcg/actuation aerosol inhaler RxNorm: 416464 2 INH Q4-6H as needed 12/29/2017 02/26/2018 Inactive Ventolin HFA 90 mcg/actuation aerosol inhaler RxNorm: 420415 2 INH Q4-6H as needed 12/29/2017 12/28/2017 Inactive Diflucan 150 mg tablet RxNorm: 423525 1 Tablet(s) PO daily 11/03/2017 11/05/2017 Inactive please call pt to let herknow when to pick- up the med Keflex 500 mg capsule RxNorm: 244398 1 Capsule(s) PO TID 10/23/2017 10/29/2017 Inactive Kenalog 40 mg/mL suspension for injection RxNorm: 0905614 1 Milliliter(s) Inj 10/16/2017 10/16/2017 Inactive ibuprofen 800 mg tablet RxNorm: 843398 TAKE 1 TABLET THREE TIMES DAILY 10/15/2017 09/27/2018 Inactive Lexapro 10 mg tablet RxNorm: 587823 TAKE 1 TABLET EVERY DAY 10/15/2017 10/09/2018 Inactive hydrocodone 5 mg-acetaminophen 325 mg tablet RxNorm: 872834 1 Tablet(s) PO QID as needed 09/03/2017 07/21/2018 Inactive omeprazole 20 mg capsule,delayed release RxNorm: 747801 1 Capsule(s) PO BID 09/02/2017 06/30/2018 Inactive alprazolam 1 mg tablet RxNorm: 848596 1 Tablet(s) PO TID 09/02/2017 03/12/2018 Inactive metoprolol tartrate 50 mg tablet RxNorm: 508098 1/2 Tablet(s) PO BID 06/26/2017 06/20/2018 Inactive omeprazole 20 mg capsule,delayed release RxNorm: 999445 1 Capsule(s) PO BID 06/05/2017 09/01/2017 Inactive omeprazole 20 mg capsule,delayed release RxNorm: 456851 1 Capsule(s) PO BID 05/28/2017 06/04/2017 Inactive omeprazole 20 mg capsule,delayed release RxNorm: 598849 1 Capsule(s) PO QPM 05/27/2017 05/27/2017 Inactive Breo Ellipta 100 mcg-25 mcg/dose powder for inhalation RxNorm: 7501757 1 INH daily 05/05/2017 04/08/2018 Inactive alprazolam 1 mg tablet RxNorm: 592415 1 Tablet(s) PO TID 02/10/2017 08/07/2017 Inactive metoprolol tartrate 50 mg tablet RxNorm: 002356 1/2 Tablet(s) PO BID 02/10/2017 06/25/2017 Inactive losartan 100 mg tablet RxNorm: 396359 1 Tablet(s) PO QPM 02/10/2017 02/04/2018 Inactive losartan 50 mg tablet RxNorm: 917952 2 Tablet(s) PO QPM 01/23/2017 02/09/2017 Inactive Diflucan 150 mg tablet RxNorm: 624343 1 Tablet(s) PO daily 01/20/2017 01/22/2017 Inactive please call pt to let herknow when to pick- up the med Diflucan 150 mg tablet RxNorm: 495448 1 Tablet(s) PO daily 01/20/2017 01/19/2017 Inactive please call pt to let herknow when to pick- up the med losartan 50 mg tablet RxNorm: 940444 1 Tablet(s) PO QPM 01/14/2017 01/22/2017 Inactive Cipro 500 mg tablet RxNorm: 892752 1 Tablet(s) PO BID 01/08/2017 01/17/2017 Inactive Cipro 500 mg tablet RxNorm: 764709 1 Tablet(s) PO BID 01/08/2017 01/07/2017 Inactive Lexapro 10 mg tablet RxNorm: 902994 TAKE 1 TABLET EVERY DAY 12/20/2016 10/14/2017 Inactive metoprolol tartrate 50 mg tablet RxNorm: 810766 1 Tablet(s) PO in the morning and 1.5 pill at night 12/11/2016 01/13/2017 Inactive spironolactone 25 mg tablet RxNorm: 964216 TAKE 1 TABLET EVERY DAY 11/04/2016 07/21/2018 Inactive metoprolol tartrate 50 mg tablet RxNorm: 503535 TAKE 1 TABLET TWICE DAILY 10/29/2016 12/10/2016 Inactive ibuprofen 800 mg tablet RxNorm: 132641 TAKE 1 TABLET THREE TIMES DAILY 10/21/2016 10/14/2017 Inactive Astepro 0.15 % (205.5 mcg) nasal spray RxNorm: 5575235 1 [place] NASAL BID 10/15/2016 10/14/2016 Inactive Astepro 0.15 % (205.5 mcg) nasal spray RxNorm: 5711998 1 [place] NASAL BID 10/15/2016 07/21/2018 Inactive Astepro 0.15 % (205.5 mcg) nasal spray RxNorm: 8145450 1 [place] NASAL BID 10/15/2016 10/14/2016 Inactive omeprazole 20 mg capsule,delayed release RxNorm: 817579 1 Capsule(s) PO QPM 10/15/2016 05/26/2017 Inactive omeprazole 20 mg capsule,delayed release RxNorm: 193765 1 Capsule(s) QPM 10/15/2016 10/14/2016 Inactive omeprazole 20 mg capsule,delayed release RxNorm: 213826 TAKE 1 CAPSULE TWICE DAILY 09/02/2016 10/14/2016 Inactive Lexapro 10 mg tablet RxNorm: 668927 TAKE 1 TABLET EVERY DAY 08/21/2016 12/19/2016 Inactive calcitonin (salmon) 200 unit/actuation nasal spray RxNorm: 425233 1 [place] NASAL daily ONE SPRAY PER ONE NOSTRIL DAILY- ALTERNATE NOSTRILS DAILY 05/31/2016 05/30/2016 Inactive She will do this for 3 months- If she wants to do a 3 month supply at one time she can without refill calcitonin (salmon) 200 unit/actuation nasal spray RxNorm: 924667 1 [place] NASAL daily ONE SPRAY PER ONE NOSTRIL DAILY- ALTERNATE NOSTRILS DAILY 05/31/2016 07/30/2016 Inactive x3 months- no refills Forteo 20 mcg/dose (600 mcg/2.4 mL) subcutaneous pen injector RxNorm: 7921762 1 injection SQ daily 05/22/2016 05/30/2016 Inactive call pt with jaramillo first Forteo 20 mcg/dose (600 mcg/2.4 mL) subcutaneous pen injector RxNorm: 2433531 1 injection SQ daily 05/22/2016 05/21/2016 Inactive Prolia 60 mg/mL subcutaneous syringe RxNorm: 135858 1 Milliliter(s) SQ every 6 months 05/13/2016 07/21/2018 Inactive Please check jaramillo through insurance and let me know- Thanks! Mary Ellen alprazolam 1 mg tablet RxNorm: 182189 1 Tablet(s) PO TID 05/08/2016 11/01/2016 Inactive Lexapro 10 mg tablet RxNorm: 300138 TAKE 1 TABLET EVERY DAY 04/22/2016 08/20/2016 Inactive spironolactone 25 mg tablet RxNorm: 212808 TAKE 1 TABLET EVERY DAY 04/22/2016 11/03/2016 Inactive Diflucan 150 mg tablet RxNorm: 607206 1 Tablet(s) PO daily 03/20/2016 04/14/2016 Inactive Diflucan 150 mg tablet RxNorm: 028365 1 Tablet(s) PO daily 03/20/2016 03/19/2016 Inactive Augmentin 500 mg-125 mg tablet RxNorm: 779954 1 Tablet(s) PO TID 03/14/2016 03/23/2016 Inactive omeprazole 20 mg capsule,delayed release RxNorm: 655585 1 Tablet(s) PO BID 03/06/2016 09/01/2016 Inactive [SAVINGS FOR NON-COVERED DRUGS -- BIN:712447, PCN: ASPROD1, Group: XXXXX, ID# XXXXXXX, Questions: . THIS IS NOT INSURANCE.] amlodipine 5 mg tablet RxNorm: 525894 TAKE 1 TABLET EVERY DAY 03/01/2016 04/22/2016 Inactive omeprazole 20 mg tablet,delayed release RxNorm: 522564 1 Tablet(s) PO BID 02/27/2016 03/05/2016 Inactive [SAVINGS FOR NON-COVERED DRUGS -- BIN:035120, PCN: ASPROD1, Group: XXXXX, ID# XXXXXXX, Questions: . THIS IS NOT INSURANCE.] spironolactone 25 mg tablet RxNorm: 159305 TAKE 1 TABLET EVERY DAY 12/21/2015 04/21/2016 Inactive Lexapro 10 mg tablet RxNorm: 955689 1 Tablet(s) PO daily 12/19/2015 01/01/2016 Inactive Lexapro 10 mg tablet RxNorm: 996295 1 Tablet(s) PO daily 12/19/2015 02/09/2017 Inactive Lexapro 10 mg tablet RxNorm: 244396 1 Tablet(s) PO daily 12/19/2015 12/18/2015 Inactive alprazolam 1 mg tablet RxNorm: 933276 1 Tablet(s) PO TID 12/01/2015 02/28/2016 Inactive ibuprofen 800 mg tablet RxNorm: 795252 1 Tablet(s) PO TID 10/26/2015 10/20/2016 Inactive alprazolam 1 mg tablet RxNorm: 596133 1 Tablet(s) PO TID 08/23/2015 07/21/2018 Inactive spironolactone 25 mg tablet RxNorm: 137112 1 Tablet(s) PO daily 08/21/2015 12/20/2015 Inactive metoprolol tartrate 50 mg tablet RxNorm: 773877 1 Tablet(s) PO BID 08/10/2015 08/03/2016 Inactive [SAVINGS FOR NON-COVERED DRUGS -- BIN:314229, PCN: ASPROD1, Group: XXXXX, ID# XXXXXXX, Questions: . THIS IS NOT INSURANCE.] omeprazole 20 mg tablet,delayed release RxNorm: 464914 1 Tablet(s) PO BID 08/07/2015 02/02/2016 Inactive [SAVINGS FOR NON-COVERED DRUGS -- BIN:775795, PCN: ASPROD1, Group: XXXXX, ID# XXXXXXX, Questions: . THIS IS NOT INSURANCE.] Keflex 500 mg capsule RxNorm: 564887 1 Capsule(s) PO TID 07/10/2015 07/16/2015 Inactive alprazolam 1 mg tablet RxNorm: 038335 1 Tablet(s) PO TID 06/02/2015 08/22/2015 Inactive alprazolam 1 mg tablet RxNorm: 610843 1 Tablet(s) PO TID 03/29/2015 06/01/2015 Inactive amlodipine 5 mg tablet RxNorm: 892141 1 Tablet(s) PO daily 03/06/2015 02/29/2016 Inactive Nasonex 50 mcg/actuation [place] RxNorm: 640519 1 [place] NASAL daily 03/03/2015 03/02/2015 Inactive Keflex 500 mg capsule RxNorm: 408029 1 Capsule(s) PO TID 03/03/2015 03/02/2015 Inactive Nasonex 50 mcg/actuation [place] RxNorm: 888624 1 [place] NASAL daily 03/03/2015 05/01/2015 Inactive Keflex 500 mg capsule RxNorm: 993477 1 Capsule(s) PO TID 03/03/2015 03/05/2015 Inactive Carafate 1 gram tablet RxNorm: 193506 TAKE 1 TABLET FOUR TIMES DAILY 30 MINUTES BEFORE MEALS AND AT BEDTIME 02/28/2015 12/18/2015 Inactive Kenalog 40 mg/mL suspension for injection RxNorm: 3396921 Milliliter(s) Inj 02/07/2015 02/07/2015 Inactive [SAVINGS FOR NON-COVERED DRUGS -- BIN:574448, PCN: ASPROD1, Group: XXXXX, ID# XXXXXXX, Questions: . THIS IS NOT INSURANCE.] metoprolol tartrate 50 mg tablet RxNorm: 111055 1 Tablet(s) PO BID 02/07/2015 08/09/2015 Inactive [SAVINGS FOR NON-COVERED DRUGS -- BIN:756866, PCN: ASPROD1, Group: XXXXX, ID# XXXXXXX, Questions: . THIS IS NOT INSURANCE.] Carafate 1 gram tablet RxNorm: 377669 1 Tablet(s) PO QID 02/07/2015 02/27/2015 Inactive 30 min before meals and at bedtime omeprazole 20 mg tablet,delayed release RxNorm: 985028 1 Tablet(s) PO BID 02/07/2015 08/05/2015 Inactive [SAVINGS FOR NON-COVERED DRUGS -- BIN:816498, PCN: ASPROD1, Group: XXXXX, ID# XXXXXXX, Questions: . THIS IS NOT INSURANCE.] Vitamin D3 2,000 unit tablet RxNorm: 990652 1 Tablet(s) PO daily No Start Date Active aspirin 81 mg tablet RxNorm: 423896 1 Tablet(s) PO daily No Start Date Active amlodipine 2.5 mg tablet RxNorm: 598383 1 Tablet(s) PO daily No Start Date 03/05/2015 Inactive spironolactone 25 mg tablet RxNorm: 418469 1 Tablet(s) PO daily No Start Date 08/20/2015 Inactive cetirizine 10 mg tablet RxNorm: 5858916 1 Tablet(s) PO daily No Start Date 12/18/2015 Inactive metoprolol tartrate 50 mg tablet RxNorm: 176240 1 Tablet(s) PO daily No Start Date 02/06/2015 Inactive ipratropium bromide 0.06 % nasal spray RxNorm: 421244 nasal No Start Date 12/18/2015 Inactive alprazolam 1 mg tablet RxNorm: 279221 1 Tablet(s) PO TID No Start Date 03/28/2015 Inactive Prolia 60 mg/mL subcutaneous syringe RxNorm: 253587 1 Milliliter(s) SQ every 6 months No Start Date 05/12/2016 Inactive Please check jaramillo through insurance and let me know- Thanks! Mary Ellen ibuprofen 800 mg tablet RxNorm: 800691 1 Tablet(s) PO TID No Start Date 10/25/2015 Inactive Protonix 40 mg tablet,delayed release RxNorm: 177012 1 Tablet(s) PO daily No Start Date 03/05/2015 Inactive Vitamin B-12 1,000 mcg/mL injection solution RxNorm: 573629 1 Milliliter(s) Inj Q2 weeks x2 months and then monthly injections No Start Date 05/20/2018 Inactive loratadine 10 mg tablet RxNorm: 508812 1 Tablet(s) PO daily No Start Date 07/21/2018 Inactive Medication Administered Medication Codes Instructions Start Date Status cyanocobalamin (vit B-12) 1,000 mcg/mL injection solution RxNorm: 279514 Milliliter 12/22/2018 No longer Active cyanocobalamin (vit B-12) 1,000 mcg/mL injection solution RxNorm: 648943 1Milliliter 10/01/2018 No longer Active Kenalog 40 mg/mL suspension for injection RxNorm: 8776857 Milliliter 09/15/2018 No longer Active cyanocobalamin (vit B-12) 1,000 mcg/mL injection solution RxNorm: 999916 1Milliliter 09/15/2018 No longer Active cyanocobalamin (vit B-12) 1,000 mcg/mL injection solution RxNorm: 528691 Milliliter 08/04/2018 No longer Active cyanocobalamin (vit B-12) 1,000 mcg/mL injection solution RxNorm: 750449 1Milliliter 07/16/2018 No longer Active cyanocobalamin (vit B-12) 1,000 mcg/mL injection solution RxNorm: 863238 Milliliter 07/01/2018 No longer Active cyanocobalamin (vit B-12) 1,000 mcg/mL injection solution RxNorm: 054196 Milliliter 06/15/2018 No longer Active cyanocobalamin (vit B-12) 1,000 mcg/mL injection solution RxNorm: 308666 Milliliter 06/02/2018 No longer Active cyanocobalamin (vit B-12) 1,000 mcg/mL injection solution RxNorm: 701378 Milliliter 05/21/2018 No longer Active Kenalog 40 mg/mL suspension for injection RxNorm: 3970752 1.5Milliliter 04/09/2018 No longer Active Kenalog 40 mg/mL suspension for injection RxNorm: 8524264 1Milliliter 10/16/2017 No longer Active Kenalog 40 mg/mL suspension for injection RxNorm: 8248004 Milliliter 02/07/2015 No longer Active Immunizations Vaccine [...] Item Item Code Result Date Comp Metabolic Vas460 NA 138 mEq/L 09/03/2017 Comp Metabolic Myk199 K 3.9 mEq/L 09/03/2017 Comp Metabolic Vol757 CL 102 mEq/L 09/03/2017 Comp Metabolic Pcr955 CO2 32.0 mEq/L 09/03/2017 Comp Metabolic Sfi502 ANION GAP 8 09/03/2017 Comp Metabolic Rhu311 GLUCOSE 89 mg/dL 09/03/2017 Comp Metabolic Qlp330 Creat 0.6 mg/dL 09/03/2017 Comp Metabolic Igg462 eGFR 103 ml/min/1.73m2 09/03/2017 Comp Metabolic Vhz072 BUN 10 mg/dL 09/03/2017 Comp Metabolic Mmn009 B/C Ratio 16.7 Ratio 09/03/2017 Comp Metabolic Wel946 CALCIUM 8.9 mg/dL 09/03/2017 Comp Metabolic Yko102 ALK PHOS 141 U/L 09/03/2017 Comp Metabolic Wnn886 AST(SGOT) 12 U/L 09/03/2017 Comp Metabolic Uec511 ALT(SGPT) 7 U/L 09/03/2017 Comp Metabolic Qfi411 BILI T 0.6 mg/dL 09/03/2017 Comp Metabolic Vly801 ALBUMIN 3.6 g/dL 09/03/2017 Comp Metabolic Rbg252 TPRO 6.6 g/dL 09/03/2017 Comp Metabolic Vbh102 GLOB 3.0 g/dL 09/03/2017 Comp Metabolic Avi008 A/G Ratio 1.2 Ratio 09/03/2017 Comp Metabolic Fzo310 Osmo 274 mOsmo 09/03/2017 Hepatic Akp139 ALBUMIN 3.7 g/dL 08/11/2017 Hepatic Nnt300 TPRO 7.0 g/dL 08/11/2017 Hepatic Vgx734 GLOB 3.3 g/dL 08/11/2017 Hepatic Ztm772 A/G Ratio 1.1 Ratio 08/11/2017 Hepatic Kcv316 ALK PHOS 85 U/L 08/11/2017 Hepatic Oqq420 ALT(SGPT) 11 U/L 08/11/2017 Hepatic Gbr224 AST(SGOT) 16 U/L 08/11/2017 Hepatic Swy597 BILI T 0.6 mg/dL 08/11/2017 Hepatic Zce296 BILI D 0.1 mg/dL 08/11/2017 Hepatic Zjh152 BILI I 0.5 mg/dL 08/11/2017 Hepatic Lko402 ALBUMIN 3.1 g/dL 07/18/2017 Hepatic Qps641 TPRO 5.9 g/dL 07/18/2017 Hepatic Gtr159 GLOB 2.8 g/dL 07/18/2017 Hepatic Ugm081 A/G Ratio 1.1 Ratio 07/18/2017 Hepatic Gjw050 ALK PHOS 123 U/L 07/18/2017 Hepatic Xzx024 ALT(SGPT) 210 U/L 07/18/2017 Hepatic Ywp363 AST(SGOT) 71 U/L 07/18/2017 Hepatic Lcv759 BILI T 1.1 mg/dL 07/18/2017 Hepatic Sfa762 BILI D 0.4 mg/dL 07/18/2017 Hepatic Pxs214 BILI I 0.7 mg/dL 07/18/2017 Cbc With [...] 32.4 pg 02/25/2017 Cbc With Differential Ord2 [place]% 7.6 % 02/25/2017 Cbc With Differential Ord2 [...] 1.22 K/ul 02/25/2017 Cbc With Differential Ord2 [place] ABS# 0.4 K/ul 02/25/2017 Cbc With Differential [...] 32.3 pg 01/02/2017 Cbc With Differential Ord2 [place]% 7.8 % 01/02/2017 Cbc With Differential Ord2 [...] 0.90 K/ul 01/02/2017 Cbc With Differential Ord2 [place] ABS# 0.4 K/ul 01/02/2017 Cbc With Differential Ord2 Eos ABS# 0.3 K/ul 01/02/2017 Cbc With Differential Ord2 Baso ABS# 0.0 K/ul 01/02/2017 Lipid Ord30 CHOL 139 mg/dL 12/13/2016 Lipid Ord30 HDL 48.0 mg/dl 12/13/2016 Lipid Ord30 TRIG 84 mg/dL 12/13/2016 Lipid Ord30 LDL 74 mg/dL 12/13/2016 Lipid Ord30 C/HDL 2.9 Ratio 12/13/2016 Comp Metabolic Brq587 NA 137 mEq/L 12/13/2016 Comp Metabolic Xoo352 K 4.8 mEq/L 12/13/2016 Comp Metabolic Lyy536 CL 101 mEq/L 12/13/2016 Comp Metabolic Hzl761 CO2 32.0 mEq/L 12/13/2016 Comp Metabolic Lwq178 ANION GAP 9 12/13/2016 Comp Metabolic Drp734 GLUCOSE 95 mg/dL 12/13/2016 Comp Metabolic Udu777 Creat 0.8 mg/dL 12/13/2016 Comp Metabolic Sjz097 eGFR 79 ml/min/1.73m2 12/13/2016 Comp Metabolic Wvz684 BUN 15 mg/dL 12/13/2016 Comp Metabolic Ket247 B/C Ratio 19.7 Ratio 12/13/2016 Comp Metabolic Tmg082 CALCIUM 9.3 mg/dL 12/13/2016 Comp Metabolic Bbe174 ALK PHOS 63 U/L 12/13/2016 Comp Metabolic Srv151 AST(SGOT) 15 U/L 12/13/2016 Comp Metabolic Pts227 ALT(SGPT) 10 U/L 12/13/2016 Comp Metabolic Cqw166 BILI T 0.7 mg/dL 12/13/2016 Comp Metabolic Rlv778 ALBUMIN 3.7 g/dL 12/13/2016 Comp Metabolic Ako846 TPRO 6.8 g/dL 12/13/2016 Comp Metabolic Llg616 GLOB 3.2 g/dL 12/13/2016 Comp Metabolic Gju790 A/G Ratio 1.2 Ratio 12/13/2016 Comp Metabolic Wit932 Osmo 274 mOsmo 12/13/2016 Cbc With Differential [...] 31.9 pg 12/13/2016 Cbc With Differential Ord2 [place]% 9.9 % 12/13/2016 Cbc With Differential Ord2 [...] 1.17 K/ul 12/13/2016 Cbc With Differential Ord2 [place] ABS# 0.4 K/ul 12/13/2016 Cbc With Differential [...] 32.1 pg 12/19/2015 Cbc With Differential Ord2 [place]% 5.9 % 12/19/2015 Cbc With Differential Ord2 [...] 1.53 K/ul 12/19/2015 Cbc With Differential Ord2 [place] ABS# 0.3 K/ul 12/19/2015 Cbc With Differential [...] Ord30 C/HDL 2.8 Ratio 12/19/2015 Comp Metabolic Deu922 NA 135 mEq/L 12/19/2015 Comp Metabolic Pky992 K 4.1 mEq/L 12/19/2015 Comp Metabolic Pyg287 CL 99 mEq/L 12/19/2015 Comp Metabolic Xit298 CO2 27.0 mEq/L 12/19/2015 Comp Metabolic Ppy280 ANION GAP 13 12/19/2015 Comp Metabolic Xts606 GLUCOSE 83 mg/dL 12/19/2015 Comp Metabolic Gcf626 Creat 0.7 mg/dL 12/19/2015 Comp Metabolic Jcz947 eGFR 88 ml/min/1.73m2 12/19/2015 Comp Metabolic Kji233 BUN 12 mg/dL 12/19/2015 Comp Metabolic Fvj686 B/C Ratio 17.4 Ratio 12/19/2015 Comp Metabolic Bsz262 CALCIUM 9.0 mg/dL 12/19/2015 Comp Metabolic Xzt157 ALK PHOS 68 U/L 12/19/2015 Comp Metabolic Iiu218 AST(SGOT) 16 U/L 12/19/2015 Comp Metabolic Vvy023 ALT(SGPT) 13 U/L 12/19/2015 Comp Metabolic Nof328 BILI T 0.7 mg/dL 12/19/2015 Comp Metabolic Nyn088 ALBUMIN 4.0 g/dL 12/19/2015 Comp Metabolic Ivz608 TPRO 7.0 g/dL 12/19/2015 Comp Metabolic Uki017 GLOB 3.0 g/dL 12/19/2015 Comp Metabolic Ybk558 A/G Ratio 1.3 Ratio 12/19/2015 Comp Metabolic Kto253 Osmo 269 mOsmo 12/19/2015 Review of Systems [...] 4: G0439 12/30/2018 THER/PROPH/DIAG INJ SC/IM CPT-4: 83213 12/22/2018 VITAMIN B12 INJECTION CPT- 4: J3420 12/22/2018 THER/PROPH/DIAG INJ SC/IM CPT-4: 53924 10/01/2018 VITAMIN B12 INJECTION CPT- 4: J3420 10/01/2018 THER/PROPH/DIAG INJ SC/IM CPT-4: 20601 09/15/2018 VITAMIN B12 INJECTION CPT- 4: J3420 09/15/2018 TRIAMCINOLONE ACET INJ NOS CPT-4: J3301 09/15/2018 THER/PROPH/DIAG INJ SC/IM CPT-4: 57756 08/04/2018 VITAMIN B12 INJECTION CPT- 4: J3420 08/04/2018 THER/PROPH/DIAG INJ SC/IM CPT-4: 84977 07/16/2018 VITAMIN B12 INJECTION CPT- 4: J3420 07/16/2018 THER/PROPH/DIAG INJ SC/IM CPT-4: 31930 07/01/2018 VITAMIN B12 INJECTION CPT- 4: J3420 07/01/2018 ADMIN INFLUENZA VIRUS VAC CPT-4: G0008 06/25/2018 FLU VACC PRSV FREE INC ANTIG Formatting Model/CDA Sections, Assigned to/Miranda Ayala CPT-4: [id number] 06/25/2018 THER/PROPH/DIAG INJ SC/IM CPT-4: 79289 06/15/2018 VITAMIN B12 INJECTION CPT- 4: J3420 06/15/2018 THER/PROPH/DIAG INJ SC/IM CPT-4: 40697 06/02/2018 VITAMIN B12 INJECTION CPT- 4: J3420 06/02/2018 THER/PROPH/DIAG INJ SC/IM CPT-4: 74545 05/21/2018 VITAMIN B12 INJECTION CPT- 4: J3420 05/21/2018 TRIAMCINOLONE ACET INJ NOS CPT-4: J3301 04/09/2018 PPPS, SUBSEQ VISIT CPT- 4: G0439 12/18/2017 TRIAMCINOLONE ACET INJ NOS CPT-4: J3301 10/16/2017 DRAIN/INJECT JOINT/BURSA CPT-4: 52436 10/16/2017 PRESCRIP TRANSMIT VIA ERX SY CPT-4: G8553 05/05/2017 PRESCRIP TRANSMIT VIA ERX SY CPT-4: G8553 01/14/2017 PPPS, SUBSEQ VISIT CPT- 4: G0439 12/12/2016 PRESCRIP TRANSMIT VIA ERX SY CPT-4: G8553 10/15/2016 ADMIN PNEUMOCOCCAL VACCINE SNOMED CT: [id number] CPT-4: G0009 08/28/2016 Pneumococcal Polysaccharide Vaccine, 23-Valent, Ad CPT-4: 77547 08/28/2016 PRESCRIP TRANSMIT VIA ERX SY CPT-4: G8553 03/14/2016 PRESCRIP TRANSMIT VIA ERX SY CPT-4: G8553 12/19/2015 THER/PROPH/DIAG INJ SC/IM CPT-4: 36374 02/07/2015 TRIAMCINOLONE ACET INJ NOS CPT-4: J3301 02/07/2015 Vital Signs Date Vital 03/17/2019 Blood Pressure 1: 122/74 Code: 8480-6 BMI: 23.1 Code: 00165-6 Heart Rate 1: 62 bpm Height: 5'1" SpO2: 94% Weight: 122 lbs 12/30/2018 Blood Pressure 1: 112/68 Code: 8480-6 BMI: 24.0 Code: 26875-9 Heart Rate 1: 66 bpm Height: 5'1" SpO2: 96% Weight: 127 lbs 12/22/2018 Blood Pressure 1: 110/72 Code: 8480-6 BMI: 24.0 Code: 71108-8 Heart Rate 1: 64 bpm Height: 5'1" SpO2: 95% Weight: 127 lbs 09/15/2018 Blood Pressure 1: 106/70 Code: 8480-6 BMI: 24.9 Code: 83337-9 Heart Rate 1: 74 bpm Height: 5'1" SpO2: 95% Weight: 132 lbs 08/18/2018 Blood Pressure 1: 128/70 Code: 8480-6 BMI: 25.1 Code: 44747-7 Heart Rate 1: 74 bpm Height: 5'1" SpO2: 95% Weight: 133 lbs 08/04/2018 Blood Pressure 1: 120/80 Code: 8480-6 Blood Pressure 1: 122/80 Code: 8480-6 Blood Pressure 2: 120/82 Code: 8480-6 BMI: 25.5 Code: 71395-3 Heart Rate 1: 63 bpm Heart Rate 1: 67 bpm Height: 5'1" Weight: 135 lbs Weight: 07/22/2018 Blood Pressure 1: 120/82 Code: 8480-6 BMI: 24.9 Code: 10587-6 Heart Rate 1: 64 bpm Height: 5'1" SpO2: 95% Weight: 132 lbs 04/21/2018 Blood Pressure 1: 108/70 Code: 8480-6 BMI: 24.4 Code: 90097-8 Heart Rate 1: 62 bpm Height: 5'1" SpO2: 94% Weight: 129 lbs 04/09/2018 Blood Pressure 1: 138/86 Code: 8480-6 BMI: 25.5 Code: 04893-4 Heart Rate 1: 64 bpm Height: 5'1" SpO2: 99% Temperature: 36.4 (C) / 97.5 (F) Weight: 135 lbs 01/19/2018 Blood Pressure 1: 128/76 Code: 8480-6 BMI: 25.9 Code: 96365-4 Heart Rate 1: 65 bpm Height: 5'1" SpO2: 98% Weight: 137 lbs 12/18/2017 Blood Pressure 1: 144/82 Code: 8480-6 BMI: 26.1 Code: 68719-1 Heart Rate 1: 57 bpm Height: 5'1" SpO2: 97% Waist Measure (cm): 74 cm Weight: 138 lbs 10/16/2017 Blood Pressure 1: 142/88 Code: 8480-6 BMI: 25.5 Code: 98930-9 Heart Rate 1: 63 bpm Height: 5'1" SpO2: 97% Weight: 135 lbs 09/03/2017 Blood Pressure 1: 144/90 Code: 8480-6 BMI: 26.3 Code: 24544-9 Heart Rate 1: 91 bpm Height: 5'1" SpO2: 96% Weight: 139 lbs 07/31/2017 Blood Pressure 1: 136/90 Code: 8480-6 BMI: 26.3 Code: 07099-7 Height: 5'1" Weight: 139 lbs 07/18/2017 Blood Pressure 1: 136/84 Code: 8480-6 06/16/2017 Blood Pressure 1: 136/84 Code: 8480-6 BMI: 26.5 Code: 65081-9 Heart Rate 1: 72 bpm Height: 5'1" SpO2: 97% Weight: 140 lbs 05/28/2017 Blood Pressure 1: 138/78 Code: 8480-6 BMI: 26.1 Code: 68811-1 Heart Rate 1: 70 bpm Height: 5'1" SpO2: 98% Weight: 138 lbs 05/05/2017 Blood Pressure 1: 140/86 Code: 8480-6 BMI: 25.3 Code: 55806-8 Heart Rate 1: 66 bpm Height: 5'1" SpO2: 99% Weight: 134 lbs 03/13/2017 Blood Pressure 1: 126/74 Code: 8480-6 BMI: 25.3 Code: 28332-5 Heart Rate 1: 73 bpm Height: 5'1" SpO2: 98% Weight: 134 lbs 02/10/2017 Blood Pressure 1: 148/88 Code: 8480-6 BMI: 25.9 Code: 83504-4 Heart Rate 1: 84 bpm Height: 5'1" SpO2: 97% Weight: 137 lbs 01/14/2017 Blood Pressure 1: 134/86 Code: 8480-6 BMI: 25.7 Code: 66457-3 Heart Rate 1: 83 bpm Height: 5'1" SpO2: 95% Weight: 136 lbs 01/07/2017 Blood Pressure 1: 136/88 Code: 8480-6 BMI: 25.1 Code: 50209-0 Heart Rate 1: 86 bpm Height: 5'1" SpO2: 94% Weight: 133 lbs 01/02/2017 Blood Pressure 1: 122/68 Code: 8480-6 Blood Pressure 2: 116/78 Code: 8480-6 01/01/2017 Blood Pressure 1: 90/52 Code: 8480-6 BMI: 25.1 Code: 34292- 5 Heart Rate 1: 86 bpm Height: 5'1" SpO2: 99% Weight: 133 lbs 12/20/2016 Blood Pressure 1: 120/76 Code: 8480-6 12/12/2016 Blood Pressure 1: 130/72 Code: 8480-6 BMI: 24.8 Code: 82719-3 Heart Rate 1: 62 bpm Height: 5'1" SpO2: 98% Waist Measure (cm): 79 cm Weight: 131 lbs 12/11/2016 Blood Pressure 1: 132/70 Code: 8480-6 BMI: 24.8 Code: 98528-9 Heart Rate 1: 60 bpm Height: 5'1" Weight: 131 lbs 10/15/2016 Blood Pressure 1: 108/66 Code: 8480-6 BMI: 24.8 Code: 34006-4 Heart Rate 1: 60 bpm Height: 5'1" Weight: 131 lbs 07/17/2016 Blood Pressure 1: 128/82 Code: 8480-6 BMI: 25.3 Code: 45631-8 Heart Rate 1: 50 bpm Height: 5'2" Weight: 136 lbs 05/15/2016 Blood Pressure 1: 108/70 Code: 8480-6 BMI: 23.4 Code: 86030-7 Heart Rate 1: 54 bpm Height: 5'2" SpO2: 96% Weight: 126 lbs 04/23/2016 Blood Pressure 1: 112/60 Code: 8480-6 BMI: 23.6 Code: 70354-5 Heart Rate 1: 92 bpm Height: 5'2" SpO2: 95% Weight: 127 lbs 03/14/2016 Blood Pressure 1: 118/74 Code: 8480-6 BMI: 24.0 Code: 79073-3 Heart Rate 1: 51 bpm Height: 5'2" SpO2: 94% Temperature: 36.8 (C) / 98.3 (F) Weight: 129 lbs 02/19/2016 Blood Pressure 1: 110/62 Code: 8480-6 BMI: 23.4 Code: 89688-2 Heart Rate 1: 74 bpm Height: 5'2" SpO2: 97% Weight: 126 lbs 12/19/2015 Blood Pressure 1: 108/74 Code: 8480-6 BMI: 23.6 Code: 81918-3 Heart Rate 1: 52 bpm Height: 5'2" Weight: 127 lbs 03/06/2015 Blood Pressure 1: 136/88 Code: 8480-6 Heart Rate 1: 64 bpm Weight: 129 lbs 02/07/2015 Blood Pressure 1: 142/90 Code: 8480-6 BMI: 24.5 Code: 48961-4 Heart Rate 1: 82 bpm Height: 5'2" [...] data Encounters Encounter Performer Location Codes Date [id number] EST. PATIENT, LEVEL III Diagnosis: Essential (primary) hypertension[ICD10: I10] Diagnosis: Chronic obstructive pulmonary disease, unspecified[ICD10: J44.9] Diagnosis: Chest pain, unspecified[ICD10: R07.9] Pebbles Burden MD, [facility] CPT- 4: 80214 03/17/2019 ([id number]) 72241 EST. PATIENT, LEVEL IV Diagnosis: Other vitamin B12 deficiency anemias[ICD10: D51.8] Kim Burden MD, [facility] CPT-4: 48222 12/22/2018 ([id number]) 46960 EST. PATIENT, LEVEL IV Diagnosis: Chest pain, unspecified[ICD10: R07.9] Diagnosis: Other vitamin B12 deficiency anemias[ICD10: D51.8] Diagnosis: Other allergic rhinitis[ICD10: J30.89] Mallorie Burden MD, [facility] CPT-4: 16168 09/15/2018 ([id number]) 45020 EST. PATIENT, LEVEL III Diagnosis: Essential (primary) hypertension[ICD10: I10] Diagnosis: Fecal urgency[ICD10: R15.2] Kim Burden MD, [facility] CPT-4: 84607 08/18/2018 ([id number]) 98576 EST. PATIENT, LEVEL IV Diagnosis: Other vitamin B12 deficiency anemias[ICD10: D51.8] Diagnosis: Essential (primary) hypertension[ICD10: I10] Diagnosis: Major depressive disorder, recurrent, mild[ICD10: F33.0] Diagnosis: Unsteadiness on feet[ICD10: R26.81] Kim Burden MD, [facility] CPT- 4: 94540 08/04/2018 ([id number]) 59135 EST. PATIENT, LEVEL IV Diagnosis: Fecal urgency[ICD10: R15.2] Diagnosis: Generalized abdominal pain[ICD10: R10.84] Diagnosis: Essential (primary) hypertension[ICD10: I10] Kim Burden MD, [facility] CPT-4: 19216 07/22/2018 ([id number]) 89637 EST. PATIENT, LEVEL IV Diagnosis: Essential (primary) hypertension[ICD10: I10] Diagnosis: Other emphysema[ICD10: J43.8] Diagnosis: Candidal stomatitis[ICD10: B37.0] Kim Burden MD, [facility] CPT- 4: 85313 04/21/2018 ([id number]) 98861 EST. PATIENT, LEVEL III Diagnosis: Chronic obstructive pulmonary disease with (acute) exacerbation[ICD10: J44.1] Mallorie Burden MD, [facility] CPT-4: 16760 04/09/2018 ([id number]) 42568 EST. PATIENT, LEVEL IV Diagnosis: Essential (primary) hypertension[ICD10: I10] Diagnosis: Other emphysema[ICD10: J43.8] Kim Burden MD, [facility] CPT-4: 06583 01/19/2018 ([id number]) 15128 EST. PATIENT, LEVEL IV Diagnosis: Essential (primary) hypertension[ICD10: I10] Diagnosis: Other emphysema[ICD10: J43.8] Diagnosis: Dependence on supplemental oxygen[ICD10: Z99.81] Diagnosis: Hypoxemia[ICD10: R09.02] Diagnosis: Pain in left knee[ICD10: M25.562] Diagnosis: Effusion, left knee[ICD10: M25.462] Kim Burden MD, [facility] CPT- 4: 92049 10/16/2017 14018 EST. PATIENT, LEVEL III Diagnosis: Pain in thoracic spine[ICD10: M54.6] Pebbles Burden MD, [facility] CPT- 4: 83117 09/03/2017 ([id number]) 03359 EST. PATIENT, LEVEL III Diagnosis: Essential (primary) hypertension[ICD10: I10] Diagnosis: Other emphysema[ICD10: J43.8] Kim Burden MD, [facility] CPT-4: 02833 07/31/2017 ([id number]) Miscellaneous no charge Diagnosis: Essential (primary) hypertension[ICD10: I10] Mallorie Burden MD, [facility] CPT-4: 70732 07/18/2017 ([id number]) 59596 EST. PATIENT, LEVEL III Diagnosis: Pain in left knee[ICD10: M25.562] Diagnosis: Effusion, left knee[ICD10: M25.462] Mallorie Burden MD, [facility] CPT-4: 94916 06/16/2017 ([id number]) 04896 EST. PATIENT, LEVEL III Diagnosis: Essential (primary) hypertension[ICD10: I10] Diagnosis: Unsteadiness on feet[ICD10: R26.81] Kim Burden MD, [facility] CPT- 4: 84293 05/28/2017 ([id number]) 37657 EST. PATIENT, LEVEL IV Diagnosis: Essential (primary) hypertension[ICD10: I10] Diagnosis: Chronic obstructive pulmonary disease with acute lower respiratory infection[ICD10: J44.0] Kim Burden MD, [facility] CPT-4: 16212 05/05/2017 ([id number]) 99675 EST. PATIENT, LEVEL IV Diagnosis: Essential (primary) hypertension[ICD10: I10] Diagnosis: Major depressive disorder, recurrent, mild[ICD10: F33.0] Kim Burden MD, [facility] CPT-4: 35197 03/13/2017 ([id number]) 29097 EST. PATIENT, LEVEL IV Diagnosis: Essential (primary) hypertension[ICD10: I10] Diagnosis: Gastro-esophageal reflux disease without esophagitis[ICD10: K21.9] Diagnosis: Chronic obstructive pulmonary disease, unspecified[ICD10: J44.9] Kim Burden MD, [facility] CPT-4: 71975 02/10/2017 ([id number]) 24912 EST. PATIENT, LEVEL IV Diagnosis: Essential (primary) hypertension[ICD10: I10] Diagnosis: Gastro-esophageal reflux disease without esophagitis[ICD10: K21.9] Diagnosis: Chronic obstructive pulmonary disease with acute lower respiratory infection[ICD10: J44.0] Kim Burden MD, [facility] CPT-4: 31845 01/14/2017 34854 EST. PATIENT, LEVEL IV Diagnosis: Other fatigue[ICD10: R53.83] Diagnosis: Other malaise[ICD10: R53.81] Diagnosis: Headache[ICD10: R51] Diagnosis: Palpitations[ICD10: R00.2] Diagnosis: Dehydration[ICD10: E86.0] Pebbles Burden MD, [facility] CPT-4: 98870 01/07/2017 ([id number]) Miscellaneous no charge Diagnosis: Essential (primary) hypertension[ICD10: I10] Pebbles Burden MD, [facility] CPT-4: 52522 01/02/2017 78532 EST. PATIENT, LEVEL IV Diagnosis: Chronic obstructive pulmonary disease, unspecified[ICD10: J44.9] Diagnosis: Essential (primary) hypertension[ICD10: I10] Diagnosis: Other fatigue[ICD10: R53.83] Pebbles Burden MD, [facility] CPT-4: 59269 01/01/2017 ([id number]) Miscellaneous no charge Diagnosis: Essential (primary) hypertension[ICD10: I10] Pebbles Burden MD, [facility] CPT-4: 33843 12/20/2016 ([id number]) 59420 EST. 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 PATIENT, LEVEL IV Diagnosis: Essential (primary) hypertension[ICD10: I10] Diagnosis: Other allergic rhinitis[ICD10: J30.89] Diagnosis: Gastro-esophageal reflux disease without esophagitis[ICD10: K21.9] Kim Burden MD [facility] CPT-4: 45421 10/15/2016 ([id number]) 71086 EST. 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 PATIENT, LEVEL III Diagnosis: Pain in left hip[ICD10: M25.552] Diagnosis: Acute laryngopharyngitis[ICD10: J06.0] Kim Burden MD [facility] CPT-4: 37546 05/15/2016 ([id number]) 18091 EST. PATIENT, LEVEL III Diagnosis: Fracture of unspecified parts of lumbosacral spine and pelvis, initial encounter for closed fracture[ICD10: S32.9XXA] Diagnosis: Essential (primary) hypertension[ICD10: I10] Kim Burden MD [facility] CPT-4: 63536 04/23/2016 62625 EST. PATIENT, LEVEL IV Diagnosis: Acute laryngopharyngitis[ICD10: J06.0] Diagnosis: Other allergic rhinitis[ICD10: J30.89] Pebbles Burden MD [facility] CPT- 4: 05397 03/14/2016 53873 EST. PATIENT, LEVEL IV Diagnosis: Dysuria[ICD10: R30.0] Diagnosis: Left lower quadrant pain[ICD10: R10.32] Pebbles Burden MD [facility] CPT-4: 39382 02/19/2016 ([id number]) 95942 EST. PATIENT, LEVEL IV Diagnosis: Essential (primary) hypertension[ICD10: I10] Diagnosis: Gastro-esophageal reflux disease without esophagitis[ICD10: K21.9] Diagnosis: Major depressive disorder, recurrent, mild[ICD10: F33.0] Kim Burden MD [facility] CPT-4: 64605 12/19/2015 ([id number]) 40387 EST. PATIENT, LEVEL IV Diagnosis: ESSENTIAL HYPERTENSION[ICD9: 401.9] Diagnosis: ACUTE URI[ICD9: 465.9] [facility] CPT-4: 54800 03/06/2015 ([id number]) OFFICE VISIT, NEW - LEVEL 4 Diagnosis: ESOPHAGEAL REFLUX[ICD9: 530.81] Diagnosis: ESSENTIAL HYPERTENSION[ICD9: 401.9] Diagnosis: COPD (chronic obstructive pulmonary disease)[ICD9: 496] Diagnosis: ALLERGIC RHINITIS[ICD9: 477.9] [facility] CPT-4: 22867 02/07/2015 Plan of Care Planned Activity Notes Codes Status Date Care Plan: Referral Order SNOMED-CT : 610413217 Pending 03/23/2019 Visit Plan: Hypertension - The [...] establish care 03/17/2019 Appointment: Pebbles Lund WPtel: [address] [place], [place] [address] (30 min) Complex 03/17/2019 Patient Education: Patient Medication Summary Completed [...] Completed 12/30/2018 Appointment: Mallorie Wetzel WPtel: [phone] [phone] [facility] - Annual Wellness Visit 12/28/2018 Visit Plan: [...] b12 injection. 12/22/2018 Appointment: Kim Burden WPtel: [phone] [facility] (15 min) Moderate 12/22/2018 Patient Education: [...] office 09/15/2018 [facility]ment[phone] (30 min) Complex 09/15/2018 Patient Education: Patient Medication Summary Completed 09/15/2018 Care Plan: Referral Order SNOMED-CT : [id number] Pending 09/15/2018 Appointment: [phone] (15 min) Moderate 08/25/2018 Visit Plan: Hypertension [...] a day. 08/18/2018 Appointment: [phone] [place] (15 min) Moderate 08/18/2018 Patient Education: Patient [...] of anxiolytic. 08/04/2018 Appointment: [phone] [place] (15 min) Moderate 08/04/2018 Appointment: Nurse Visit [...] home. 07/22/2018 Appointment: [phone] [place] [place] (15 min) Moderate 07/22/2018 Patient Education: [...] swallow. 04/21/2018 Appointment: Kim Burden WPtel: [phone] [facility] (15 min) Moderate 04/21/2018 Patient Education: Patient [...] changes. 04/09/2018 Appointment: [phone] [phone] [place] (30 min) Complex 04/09/2018 Patient Education: [...] acute changes. 01/19/2018 Appointment: Kim Burden WPtel: [address] [facility] [place] (15 min) Moderate 01/19/2018 Patient Education: Patient Medication Summary Completed 01/19/2018 Appointment: Jenise[facility]elfiny [phone] [place] (15 min) Moderate 01/14/2018 Visit Plan: Medicare [...] care surrogate. 12/18/2017 Appointment: Pebbles Lund [phone] [facility] [facility] - Annual Wellness Visit 12/18/2017 Patient Education: [...] at home. 10/16/2017 Appointment: Kim Burden WPtel: [phone] [facility] (15 min) Moderate 10/16/2017 Patient Education: [...] concerns. 09/03/2017 Appointment: Pebbles Lund [phone] (15 min) Moderate 09/03/2017 Patient Education: Patient Medication Summary Completed 09/03/2017 Appointment: [phone] [place] (15 min) Moderate 08/11/2017 Appointment: [phone] [place] (15 min) Moderate 08/11/2017 Patient Education: Patient [...] treatment. 07/31/2017 Appointment: Kim Burden WPtel: [phone] [facility] (15 min) Moderate 07/31/2017 Patient Education: Patient Medication Summary Completed 07/31/2017 Appointment: Nurse Visit 07/18/2017 Patient Education: Patient Medication Summary Completed 07/18/2017 Patient Education: Patient Medication Summary Completed 07/18/2017 Appointment: Kim [facility]den [phone] [place] (15 min) Moderate 06/30/2017 Visit Plan: Effusion left knee-fall 2 weeks ago-recommend compression of joint and refer to Ortho for evaluation and treatment-will refer to Dr Pryor/Quinton Mccormick. Patient verbalized understanding of plan. 06/16/2017 Appointment: Mallorie Wetzel WPtel: [phone] [place] (30 min) Complex 06/16/2017 Patient Education: [...] active. 05/28/2017 Appointment: Kim Burden [phone] [place] (15 min) Moderate 05/28/2017 Patient Education: Patient [...] acute changes. 05/05/2017 Appointment: Kim Burden [facility]: [phone] [facility] [place] (15 min) Moderate 05/05/2017 Patient Education: Patient [...] medications. 03/13/2017 Appointment: Kim Burden [facility]el: [phone] [facility] [place] (15 min) Moderate 03/13/2017 Patient Education: Patient [...] worsening. 02/10/2017 Appointment: Kim Burden [facility]Ptel: [phone] [facility] [place] (15 min) Moderate 02/10/2017 Patient Education: Patient [...] improving. 01/14/2017 Appointment: Kim Burden [facility]: [phone] [facility] [place] (15 min) Moderate 01/14/2017 Patient Education: Patient [...] concerns. 01/07/2017 Appointment: Pebbles Lund [phone] [facility] (30 min) Complex 01/07/2017 Patient Education: Patient [...] pressures. 01/01/2017 Appointment: Pebbles Lund [facility]el[phone] [facility] (30 min) Complex 01/01/2017 Patient Education: Patient [...] surrogate. 12/12/2016 Appointment: Pebbles Lund [facility]el[phone] [facility] [facility] - Annual Wellness Visit 12/12/2016 Patient [...] time. 12/11/2016 Appointment: Kim Bur[phone] (15 min) Moderate 12/11/2016 Patient Education: Patient Medication Summary Completed 12/11/2016 Appointment: [facility] [phone] [phone] [place] (30 min) Complex 12/10/2016 Visit Plan: [...] improving. 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 07/17/2016 Appointment: Kim Burden WPtel: [phone] [facility] (15 min) Moderate 07/17/2016 Patient Education: Patient Medication Summary Completed 07/17/2016 Appointment: Kim Burden WPtel: [phone] [facility] [place] (15 min) Moderate 06/10/2016 Visit Plan: Hip pain - persistent but improving - continue with current treatment plan. Pt to call if her symptoms are not improving or if her hip pain worsens. URI symptoms - supportive care, use otc allergy medications. 05/15/2016 Appointment: Kim Burden [facility]el: [phone] [place] (15 min) Moderate 05/15/2016 Patient Education: [...] not improving. 04/23/2016 Appointment: Kim Burden [facility]el: [phone] [place] [place] (15 min) Moderate 04/23/2016 Patient Education: Patient Medication Summary Completed 04/23/2016 Patient Education: Hypertension Completed 04/23/2016 Care Plan: X-RAY EXAM OF ABDOMEN LOINC : 91642-2 Pending 03/18/2016 Visit Plan: URI - Pt [...] spray. 03/14/2016 Appointment: Pebbles Lund WPtel: [phone] [facility] (30 min) Complex 03/14/2016 Patient Education: Patient Medication Summary Completed 03/14/2016 Patient Education: Patient Medication Summary Completed 02/29/2016 Visit Plan: Flank pain - pt is currently being treated for UTI, but is having continued left flank pain - will get KUB - pt is to notify clinic if symptoms do not improve, or with any concerns. 02/19/2016 Appointment: Pebbles Lund WPtel: [facility] (30 min) Complex 02/19/2016 Patient Education: Patient Medication Summary Completed 02/19/2016 Appointment: Kim Burden WPtel: [phone] [facility] (15 min) Moderate 01/22/2016 Visit Plan: Hypertension [...] not improving. 12/19/2015 Appointment: [phone] (15 min) Moderate 12/19/2015 Patient Education: Patient [...] Finish RX. 03/06/2015 Appointment: Kim Burden [facility]el[phone] Follow up 03/06/2015 Patient Education: Patient Medication [...] Completed 02/07/2015 Care Plan: SCREENINGMAMMOGRAPHYDIGITAL LOINC : 74043-4 Ordered 02/07/2015 Care Plan: COMPLETE CBC AUTOMATED LOINC : 11095-2 Ordered 02/07/2015 Referral: Consuelo Chavez Referral Appointment [...] to help decrease GI upset./loose stools - [facility] or [facility] . Hypertension - well controlled - continue [...] care surrogate. TAKE WITH FOOD AND PROBIOTIC ([employer] OR [employer]) . URI - Pt advised to increase [...] with any concerns. increase current supply of (norvas) AMLODIPINE 2.5mg [...]
--- OUTSIDE RECORDS SUMMARY | 2019-04-06 08:29 | XMS REPORT | CCD ---
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 Role Phone PP Unavailable CCM Unavailable Summary Purpose Interface Exchange Insurance Providers Payer name Policy type / Coverage type Covered republican ID Effective Begin Date Effective End Date WPS Medicare Part B Medicare Part B [id number] Unknown AETNA Medicare Part B [id number] 2014 Unknown Family history Brother Diagnosis Age [...] 02/07/2015 Employment Unknown Currently employed works at [employer] 02/07/[address]: 2210442 Quit over 10 years ago 199302/07/2015 Number of years using tobacco Unknown 20 - 30 02/07/2015 Alcohol history Unknown occasionally drinks alcohol 02/07/2015 Allergies, Adverse Reactions, Alerts Allergies, Adverse Reactions, Alerts data not found Past Medical History Illness Codes Condition Status Onset Date Resolved Date Essential (primary) hypertension ICD-9: 401.1 ICD-10: I10 Active 01/14/2017 Unknown Major depressive disorder, recurrent, mild ICD-9: [...] hypertension ICD-9: 401.1 ICD-10: I10 01/14/2017 Active Major depressive disorder, recurrent, mild ICD-9: [...] Start Date Stop Date Status Fill Instructions alprazolam 1 mg tablet RxNorm: 816063 1 Tablet(s) PO TID 02/10/2017 08/08/2017 Active metoprolol tartrate 50 mg tablet RxNorm: 849456 1/2 Tablet(s) PO BID 02/10/2017 02/04/2018 Active losartan 100 mg tablet RxNorm: 544477 1 Tablet(s) PO QPM 02/10/2017 02/04/2018 Active losartan 50 mg tablet RxNorm: 760805 2 Tablet(s) PO QPM 01/23/2017 02/09/2017 Inactive Diflucan 150 mg tablet RxNorm: 409561 1 Tablet(s) PO daily 01/20/2017 01/22/2017 Inactive please call pt to let herknow when to pick- up the med Diflucan 150 mg tablet RxNorm: 461833 1 Tablet(s) PO daily 01/20/2017 01/19/2017 Inactive please call pt to let herknow when to pick- up the med losartan 50 mg tablet RxNorm: 779949 1 Tablet(s) PO QPM 01/14/2017 01/22/2017 Inactive Cipro 500 mg tablet RxNorm: 776138 1 Tablet(s) PO BID 01/08/2017 01/17/2017 Inactive Cipro 500 mg tablet RxNorm: 843221 1 Tablet(s) PO BID 01/08/2017 01/07/2017 Inactive Lexapro 10 mg tablet RxNorm: 639695 TAKE 1 TABLET EVERY DAY 12/20/2016 12/14/2017 Active metoprolol tartrate 50 mg tablet RxNorm: 362585 1 Tablet(s) PO in the morning and 1.5 pill at night 12/11/2016 01/13/2017 Inactive spironolactone 25 mg tablet RxNorm: 688901 TAKE 1 TABLET EVERY DAY 11/04/2016 07/31/2017 Active metoprolol tartrate 50 mg tablet RxNorm: 797321 TAKE 1 TABLET TWICE DAILY 10/29/2016 12/10/2016 Inactive ibuprofen 800 mg tablet RxNorm: 651077 TAKE 1 TABLET THREE TIMES DAILY 10/21/2016 01/13/2018 Active Astepro 0.15 % (205.5 mcg) nasal spray RxNorm: 4760348 1 [place] NASAL BID 10/15/2016 10/09/2017 Active omeprazole 20 mg capsule,delayed release RxNorm: 873318 1 Capsule(s) PO QPM 10/15/2016 10/09/2017 Active Astepro 0.15 % (205.5 mcg) nasal spray RxNorm: 0488246 1 [place] NASAL BID 10/15/2016 10/14/2016 Inactive Astepro 0.15 % (205.5 mcg) nasal spray RxNorm: 1045483 1 [place] NASAL BID 10/15/2016 10/14/2016 Inactive omeprazole 20 mg capsule,delayed release RxNorm: 288288 1 Capsule(s) QPM 10/15/2016 10/14/2016 Inactive omeprazole 20 mg capsule,delayed release RxNorm: 128612 TAKE 1 CAPSULE TWICE DAILY 09/02/2016 10/14/2016 Inactive Lexapro 10 mg tablet RxNorm: 374709 TAKE 1 TABLET EVERY DAY 08/21/2016 12/19/2016 Inactive calcitonin (salmon) 200 unit/actuation nasal spray RxNorm: 016958 1 [place] NASAL daily ONE SPRAY PER ONE NOSTRIL DAILY- ALTERNATE NOSTRILS DAILY 05/31/2016 05/30/2016 Inactive She will do this for 3 months- If she wants to do a 3 month supply at one time she can without refill calcitonin (salmon) 200 unit/actuation nasal spray RxNorm: 833284 1 [place] NASAL daily ONE SPRAY PER ONE NOSTRIL DAILY- ALTERNATE NOSTRILS DAILY 05/31/2016 07/30/2016 Inactive x3 months- no refills Forteo 20 mcg/dose (600 mcg/2.4 mL) subcutaneous pen injector RxNorm: 0784448 1 injection SQ daily 05/22/2016 05/30/2016 Inactive call pt with jaramillo first Forteo 20 mcg/dose (600 mcg/2.4 mL) subcutaneous pen injector RxNorm: 7080935 1 injection SQ daily 05/22/2016 05/21/2016 Inactive Prolia 60 mg/mL subcutaneous syringe RxNorm: 446313 1 Milliliter(s) SQ every 6 months 05/13/2016 No Stop Date Active Please check jaramillo through insurance and let me know- Thanks! Mary Ellen alprazolam 1 mg tablet RxNorm: 646217 1 Tablet(s) PO TID 05/08/2016 11/01/2016 Inactive Lexapro 10 mg tablet RxNorm: 319606 TAKE 1 TABLET EVERY DAY 04/22/2016 08/20/2016 Inactive spironolactone 25 mg tablet RxNorm: 105232 TAKE 1 TABLET EVERY DAY 04/22/2016 11/03/2016 Inactive Diflucan 150 mg tablet RxNorm: 915579 1 Tablet(s) PO daily 03/20/2016 04/14/2016 Inactive Diflucan 150 mg tablet RxNorm: 947986 1 Tablet(s) PO daily 03/20/2016 03/19/2016 Inactive Augmentin 500 mg-125 mg tablet RxNorm: 289227 1 Tablet(s) PO TID 03/14/2016 03/23/2016 Inactive omeprazole 20 mg capsule,delayed release RxNorm: 415719 1 Tablet(s) PO BID 03/06/2016 09/01/2016 Inactive [SAVINGS FOR NON-COVERED DRUGS -- BIN:[id number], PCN: ASPROD1, Group: XXXXX, ID# XXXXXXX, Questions: . THIS IS NOT INSURANCE.] amlodipine 5 mg tablet RxNorm: 857669 TAKE 1 TABLET EVERY DAY 03/01/2016 04/22/2016 Inactive omeprazole 20 mg tablet,delayed release RxNorm: 321381 1 Tablet(s) PO BID 02/27/2016 03/05/2016 Inactive [SAVINGS FOR NON-COVERED DRUGS -- BIN:[id number], PCN: ASPROD1, Group: XXXXX, ID# XXXXXXX, Questions: . THIS IS NOT INSURANCE.] spironolactone 25 mg tablet RxNorm: 805669 TAKE 1 TABLET EVERY DAY 12/21/2015 04/21/2016 Inactive Lexapro 10 mg tablet RxNorm: 800682 1 Tablet(s) PO daily 12/19/2015 01/01/2016 Inactive Lexapro 10 mg tablet RxNorm: 017746 1 Tablet(s) PO daily 12/19/2015 02/09/2017 Inactive Lexapro 10 mg tablet RxNorm: 506600 1 Tablet(s) PO daily 12/19/2015 12/18/2015 Inactive alprazolam 1 mg tablet RxNorm: 475990 1 Tablet(s) PO TID 12/01/2015 02/28/2016 Inactive ibuprofen 800 mg tablet RxNorm: 149656 1 Tablet(s) PO TID 10/26/2015 10/20/2016 Inactive alprazolam 1 mg tablet RxNorm: 230668 1 Tablet(s) PO TID 08/23/2015 11/19/2015 Inactive spironolactone 25 mg tablet RxNorm: 011403 1 Tablet(s) PO daily 08/21/2015 12/20/2015 Inactive metoprolol tartrate 50 mg tablet RxNorm: 390455 1 Tablet(s) PO BID 08/10/2015 08/03/2016 Inactive [SAVINGS FOR NON-COVERED DRUGS -- BIN:716161, PCN: ASPROD1, Group: XXXXX, ID# XXXXXXX, Questions: . THIS IS NOT INSURANCE.] omeprazole 20 mg tablet,delayed release RxNorm: 533343 1 Tablet(s) PO BID 08/07/2015 02/02/2016 Inactive [SAVINGS FOR NON-COVERED DRUGS -- BIN:710711, PCN: ASPROD1, Group: XXXXX, ID# XXXXXXX, Questions: . THIS IS NOT INSURANCE.] Keflex 500 mg capsule RxNorm: 073504 1 Capsule(s) PO TID 07/10/2015 07/16/2015 Inactive alprazolam 1 mg tablet RxNorm: 526175 1 Tablet(s) PO TID 06/02/2015 08/22/2015 Inactive alprazolam 1 mg tablet RxNorm: 206561 1 Tablet(s) PO TID 03/29/2015 06/01/2015 Inactive amlodipine 5 mg tablet RxNorm: 845800 1 Tablet(s) PO daily 03/06/2015 02/29/2016 Inactive Nasonex 50 mcg/actuation [place] RxNorm: 081435 1 [place] NASAL daily 03/03/2015 03/02/2015 Inactive Keflex 500 mg capsule RxNorm: 455164 1 Capsule(s) PO TID 03/03/2015 03/02/2015 Inactive Nasonex 50 mcg/actuation [place] RxNorm: 443983 1 [place] NASAL daily 03/03/2015 05/01/2015 Inactive Keflex 500 mg capsule RxNorm: 531039 1 Capsule(s) PO TID 03/03/2015 03/05/2015 Inactive Carafate 1 gram tablet RxNorm: 047517 TAKE 1 TABLET FOUR TIMES DAILY 30 MINUTES BEFORE MEALS AND AT BEDTIME 02/28/2015 12/18/2015 Inactive Kenalog 40 mg/mL suspension for injection RxNorm: 0951034 Milliliter(s) Inj 02/07/2015 02/07/2015 Inactive [SAVINGS FOR NON-COVERED DRUGS -- BIN:[id number], PCN: ASPROD1, Group: XXXXX, ID# XXXXXXX, Questions: . THIS IS NOT INSURANCE.] metoprolol tartrate 50 mg tablet RxNorm: 415634 1 Tablet(s) PO BID 02/07/2015 08/09/2015 Inactive [SAVINGS FOR NON-COVERED DRUGS -- BIN:[id number], PCN: ASPROD1, Group: XXXXX, ID# XXXXXXX, Questions: . THIS IS NOT INSURANCE.] Carafate 1 gram tablet RxNorm: 382177 1 Tablet(s) PO QID 02/07/2015 02/27/2015 Inactive 30 min before meals and at bedtime omeprazole 20 mg tablet,delayed release RxNorm: 105987 1 Tablet(s) PO BID 02/07/2015 08/05/2015 Inactive [SAVINGS FOR NON-COVERED DRUGS -- BIN:420827, PCN: ASPROD1, Group: XXXXX, ID# XXXXXXX, Questions: . THIS IS NOT INSURANCE.] Vitamin D3 2,000 unit tablet RxNorm: 531655 1 Tablet(s) PO daily No Start Date Active aspirin 81 mg tablet RxNorm: 888556 1 Tablet(s) PO daily No Start Date Active loratadine 10 mg tablet RxNorm: 864450 1 Tablet(s) PO daily No Start Date Active amlodipine 2.5 mg tablet RxNorm: 702209 1 Tablet(s) PO daily No Start Date 03/05/2015 Inactive spironolactone 25 mg tablet RxNorm: 350752 1 Tablet(s) PO daily No Start Date 08/20/2015 Inactive cetirizine 10 mg tablet RxNorm: 0996194 1 Tablet(s) PO daily No Start Date 12/18/2015 Inactive metoprolol tartrate 50 mg tablet RxNorm: 822692 1 Tablet(s) PO daily No Start Date 02/06/2015 Inactive ipratropium bromide 0.06 % nasal spray RxNorm: 791261 nasal No Start Date 12/18/2015 Inactive alprazolam 1 mg tablet RxNorm: 052985 1 Tablet(s) PO TID No Start Date 03/28/2015 Inactive Prolia 60 mg/mL subcutaneous syringe RxNorm: 708043 1 Milliliter(s) SQ every 6 months No Start Date 05/12/2016 Inactive Please check jaramillo through insurance and let me know- Thanks! Mary Ellen ibuprofen 800 mg tablet RxNorm: 928354 1 Tablet(s) PO TID No Start Date 10/25/2015 Inactive Protonix 40 mg tablet,delayed release RxNorm: 703583 1 Tablet(s) PO daily No Start Date 03/05/2015 Inactive Medication Administered Medication Codes Instructions Start Date Status Kenalog 40 mg/mL suspension for injection RxNorm: 7372963 Milliliter 02/07/2015 No longer Active Immunizations Vaccine Codes Date Status Pneumococcal (Adult) CVX: 33 08/28/2016 completed Assessments Condition Codes Effective Dates Major depressive disorder, recurrent, 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 ICD-9: 296.31 03/13/2017 Essential (primary) hypertension ICD-10: I10 ICD-9: 401.1 03/13/2017 Chronic obstructive pulmonary disease, unspecified ICD-10: J44.9 ICD-9: 496 02/10/2017 Gastro-esophageal reflux disease without esophagitis ICD-10: K21.9 ICD-9: 530.81 02/10/2017 Chronic obstructive pulmonary disease with acute lower respiratory infection ICD-10: J44.0 ICD-9: 491.22 01/14/2017 Dehydration ICD-10: E86.0 ICD-9: 276.51 01/07/2017 Palpitations [...] Visit Reason For Visit Effective Dates Notes hypertension 03/13/2017 hypertension 02/10/2017 hypertension 01/14/2017 fatigue 01/07/2017 shortness of breath 01/01/2017 Annual Medicare Wellness Exam 12/12/2016 headache 12/11/2016 hypertension 10/15/2016 vaccination against pneumonia 08/28/2016 hypertension 07/17/2016 cough 05/15/2016 hip pain 04/23/2016 cough 03/14/2016 flank pain 02/19/2016 hypertension 12/19/2015 hypertension 03/06/2015 gastroesophageal reflux 02/07/2015 Results Observation Observation Code Item Item Code Result Date Cbc With Differential Ord2 WBC 4.97 K/ul [...] 32.4 pg 02/25/2017 Cbc With Differential Ord2 Ford% 7.6 % 02/25/2017 Cbc With Differential Ord2 [...] 1.22 K/ul 02/25/2017 Cbc With Differential Ord2 Ford ABS# 0.4 K/ul 02/25/2017 Cbc With Differential [...] 98.0 fl 01/02/2017 Cbc With Differential Ord2 Ford% 7.8 % 01/02/2017 Cbc With Differential Ord2 [...] 0.90 K/ul 01/02/2017 Cbc With Differential Ord2 Ford ABS# 0.4 K/ul 01/02/2017 Cbc With Differential Ord2 Eos ABS# 0.3 K/ul 01/02/2017 Cbc With Differential Ord2 Baso ABS# 0.0 K/ul 01/02/2017 Lipid Ord30 CHOL 139 mg/dL 12/13/2016 Lipid Ord30 HDL 48.0 mg/dl 12/13/2016 Lipid Ord30 TRIG 84 mg/dL 12/13/2016 Lipid Ord30 LDL 74 mg/dL 12/13/2016 Lipid Ord30 C/HDL 2.9 Ratio 12/13/2016 Comp Metabolic Bsq514 NA 137 mEq/L 12/13/2016 Comp Metabolic Xrx088 K 4.8 mEq/L 12/13/2016 Comp Metabolic Uqc317 CL 101 mEq/L 12/13/2016 Comp Metabolic Xuf653 CO2 32.0 mEq/L 12/13/2016 Comp Metabolic Wgc534 ANION GAP 9 12/13/2016 Comp Metabolic Rmf904 GLUCOSE 95 mg/dL 12/13/2016 Comp Metabolic Eqn489 Creat 0.8 mg/dL 12/13/2016 Comp Metabolic Mej314 eGFR 79 ml/min/1.73m2 12/13/2016 Comp Metabolic Ezk410 BUN 15 mg/dL 12/13/2016 Comp Metabolic Msz013 B/C Ratio 19.7 Ratio 12/13/2016 Comp Metabolic Coy173 CALCIUM 9.3 mg/dL 12/13/2016 Comp Metabolic Nvg171 ALK PHOS 63 U/L 12/13/2016 Comp Metabolic Bqz669 AST(SGOT) 15 U/L 12/13/2016 Comp Metabolic Flk570 ALT(SGPT) 10 U/L 12/13/2016 Comp Metabolic Iqe627 BILI T 0.7 mg/dL 12/13/2016 Comp Metabolic Owe252 ALBUMIN 3.7 g/dL 12/13/2016 Comp Metabolic Bzq025 TPRO 6.8 g/dL 12/13/2016 Comp Metabolic Koe221 GLOB 3.2 g/dL 12/13/2016 Comp Metabolic Llt282 A/G Ratio 1.2 Ratio 12/13/2016 Comp Metabolic Zvq416 Osmo 274 mOsmo 12/13/2016 Cbc With Differential [...] 97.4 fl 12/13/2016 Cbc With Differential Ord2 Ford% 9.9 % 12/13/2016 Cbc With Differential Ord2 MCH 31.9 pg 12/13/2016 Cbc With Differential Ord2 Eos% 11.5 % 12/13/2016 Cbc With Differential Ord2 MCHC 32.8 pg 12/13/2016 Cbc With Differential Ord2 Baso% 0.5 % 12/13/2016 Cbc With Differential Ord2 PLT 192 K/ul 12/13/2016 Cbc With Differential Ord2 RDW 13.1 % 12/13/2016 Cbc With Differential Ord2 Neut ABS# 2.08 K/ul 12/13/2016 Cbc With Differential Ord2 Lymph ABS# 1.17 K/ul 12/13/2016 Cbc With Differential Ord2 Ford ABS# 0.4 K/ul 12/13/2016 Cbc With Differential [...] 97.3 fl 12/19/2015 Cbc With Differential Ord2 Ford% 5.9 % 12/19/2015 Cbc With Differential Ord2 [...] 1.53 K/ul 12/19/2015 Cbc With Differential Ord2 Ford ABS# 0.3 K/ul 12/19/2015 Cbc With Differential [...] Ord30 C/HDL 2.8 Ratio 12/19/2015 Comp Metabolic Mhf793 NA 135 mEq/L 12/19/2015 Comp Metabolic Bnc400 K 4.1 mEq/L 12/19/2015 Comp Metabolic Hpm880 CL 99 mEq/L 12/19/2015 Comp Metabolic Jzo511 CO2 27.0 mEq/L 12/19/2015 Comp Metabolic Pib518 ANION GAP 13 12/19/2015 Comp Metabolic Zyh917 GLUCOSE 83 mg/dL 12/19/2015 Comp Metabolic Rmr102 Creat 0.7 mg/dL 12/19/2015 Comp Metabolic Jan525 eGFR 88 ml/min/1.73m2 12/19/2015 Comp Metabolic Laf297 BUN 12 mg/dL 12/19/2015 Comp Metabolic Dyv694 B/C Ratio 17.4 Ratio 12/19/2015 Comp Metabolic Ibl940 CALCIUM 9.0 mg/dL 12/19/2015 Comp Metabolic Unp101 ALK PHOS 68 U/L 12/19/2015 Comp Metabolic Jsl210 AST(SGOT) 16 U/L 12/19/2015 Comp Metabolic Aca967 ALT(SGPT) 13 U/L 12/19/2015 Comp Metabolic Eiq126 BILI T 0.7 mg/dL 12/19/2015 Comp Metabolic Tjb361 ALBUMIN 4.0 g/dL 12/19/2015 Comp Metabolic Etr914 TPRO 7.0 g/dL 12/19/2015 Comp Metabolic Kvy126 GLOB 3.0 g/dL 12/19/2015 Comp Metabolic Tah995 A/G Ratio 1.3 Ratio 12/19/2015 Comp Metabolic Glo878 Osmo 269 mOsmo 12/19/2015 Review of Systems System Result Effective Dates Constitutional No recent illness 03/13/2017 Constitutional No [...] Date PRESCRIP TRANSMIT VIA ERX SY CPT-4: [id number] 01/14/2017 PPPS, SUBSEQ VISIT CPT-4: O3670Yjmjvrh 12/12/2016 PRESCRIP TRANSMIT VIA ERX SY CPT-4: F3259Itkonud 10/15/2016 ADMIN PNEUMOCOCCAL VACCINE SNOMED CT: 42050968 CPT-4: G2769Wrnrgey 08/28/2016 Pneumococcal Polysaccharide Vaccine, 23-Valent, Ad CPT-4: 88998Semexla 08/28/2016 PRESCRIP TRANSMIT VIA ERX SY CPT-4: A2504Kdaacrw 03/14/2016 PRESCRIP TRANSMIT VIA ERX SY CPT-4: A6047Gxqsxsm 12/19/2015 THER/PROPH/DIAG INJ SC/IM CPT-4: 64039Bnxpokj 02/07/2015 TRIAMCINOLONE ACET INJ NOS CPT-4: F0567Reuarie 02/07/2015 Vital Signs Date Vital 03/13/2017 Blood Pressure 1: 126/74 Code: 8480-6 BMI: 25.3 Code: 90385-2 Heart Rate 1: 73 bpm Height: 5'1" SpO2: 98% Weight: 134 lbs 02/10/2017 Blood Pressure 1: 148/88 Code: 8480-6 BMI: 25.9 Code: 40014-3 Heart Rate 1: 84 bpm Height: 5'1" SpO2: 97% Weight: 137 lbs 01/14/2017 Blood Pressure 1: 134/86 Code: 8480-6 BMI: 25.7 Code: 08293-5 Heart Rate 1: 83 bpm Height: 5'1" SpO2: 95% Weight: 136 lbs 01/07/2017 Blood Pressure 1: 136/88 Code: 8480-6 BMI: 25.1 Code: 96072-2 Heart Rate 1: 86 bpm Height: 5'1" SpO2: 94% Weight: 133 lbs 01/02/2017 Blood Pressure 1: 122/68 Code: 8480-6 Blood Pressure 2: 116/78 Code: 8480-6 01/01/2017 Blood Pressure 1: 90/52 Code: 8480-6 BMI: 25.1 Code: 71222- 5 Heart Rate 1: 86 bpm Height: 5'1" SpO2: 99% Weight: 133 lbs 12/20/2016 Blood Pressure 1: 120/76 Code: 8480-6 12/12/2016 Blood Pressure 1: 130/72 Code: 8480-6 BMI: 24.8 Code: 22127-3 Heart Rate 1: 62 bpm Height: 5'1" SpO2: 98% Waist Measure (cm): 79 cm Weight: 131 lbs 12/11/2016 Blood Pressure 1: 132/70 Code: 8480-6 BMI: 24.8 Code: 06941-1 Heart Rate 1: 60 bpm Height: 5'1" Weight: 131 lbs 10/15/2016 Blood Pressure 1: 108/66 Code: 8480-6 BMI: 24.8 Code: 66044-1 Heart Rate 1: 60 bpm Height: 5'1" Weight: 131 lbs 07/17/2016 Blood Pressure 1: 128/82 Code: 8480-6 BMI: 25.3 Code: 25150-8 Heart Rate 1: 50 bpm Height: 5'2" Weight: 136 lbs 05/15/2016 Blood Pressure 1: 108/70 Code: 8480-6 BMI: 23.4 Code: 01035-1 Heart Rate 1: 54 bpm Height: 5'2" SpO2: 96% Weight: 126 lbs 04/23/2016 Blood Pressure 1: 112/60 Code: 8480-6 BMI: 23.6 Code: 96010-3 Heart Rate 1: 92 bpm Height: 5'2" SpO2: 95% Weight: 127 lbs 03/14/2016 Blood Pressure 1: 118/74 Code: 8480-6 BMI: 24.0 Code: 92150-5 Heart Rate 1: 51 bpm Height: 5'2" SpO2: 94% Temperature: 36.8 (C) / 98.3 (F) Weight: 129 lbs 02/19/2016 Blood Pressure 1: 110/62 Code: 8480-6 BMI: 23.4 Code: 29419-8 Heart Rate 1: 74 bpm Height: 5'2" SpO2: 97% Weight: 126 lbs 12/19/2015 Blood Pressure 1: 108/74 Code: 8480-6 BMI: 23.6 Code: 91313-6 Heart Rate 1: 52 bpm Height: 5'2" Weight: 127 lbs 03/06/2015 Blood Pressure 1: 136/88 Code: 8480-6 Heart Rate 1: 64 bpm Weight: 129 lbs 02/07/2015 Blood Pressure 1: 142/90 Code: 8480-6 BMI: 24.5 Code: 93043-9 Heart Rate 1: 82 bpm Height: 5'2" Weight: 132 lbs Functional Status No Functional Status data History of Present Illness Symptom Name Status Result Effective Date Notes hypertension Quality intermittent 03/13/2017 None hypertension Quality [...] data Encounters Encounter Performer Location Codes Date [id number]) [id number] EST. PATIENT, LEVEL IV Diagnosis: Essential (primary) hypertension[ICD10: I10] Diagnosis: Major depressive disorder, recurrent, mild[ICD10: F33.0] Kim Burden MD, [facility] CPT-4: 79563 03/13/2017 [id number]) 38161 EST. PATIENT, LEVEL IV Diagnosis: Essential (primary) hypertension[ICD10: I10] Diagnosis: Gastro-esophageal reflux disease without esophagitis[ICD10: K21.9] Diagnosis: Chronic obstructive pulmonary disease, unspecified[ICD10: J44.9] Kim Burden MD, [facility] CPT-4: 68539 02/10/2017 [id number]) 74214 EST. PATIENT, LEVEL IV Diagnosis: Essential (primary) hypertension[ICD10: I10] Diagnosis: Gastro-esophageal reflux disease without esophagitis[ICD10: K21.9] Diagnosis: Chronic obstructive pulmonary disease with acute lower respiratory infection[ICD10: J44.0] Kim Burden MD, [facility] CPT-4: 68999 01/14/2017 [id number] EST. PATIENT, LEVEL IV Diagnosis: Other fatigue[ICD10: R53.83] Diagnosis: Other malaise[ICD10: R53.81] Diagnosis: Headache[ICD10: R51] Diagnosis: Palpitations[ICD10: R00.2] Diagnosis: Dehydration[ICD10: E86.0] Pebbles Burden MD, [facility] CPT-4: 86619 01/07/2017 ([id number]) Miscellaneous no charge Diagnosis: Essential (primary) hypertension[ICD10: I10] Pebbles Burden MD, [facility] CPT-4: 46728 01/02/2017 [id number] EST. PATIENT, LEVEL IV Diagnosis: Chronic obstructive pulmonary disease, unspecified[ICD10: J44.9] Diagnosis: Essential (primary) hypertension[ICD10: I10] Diagnosis: Other fatigue[ICD10: R53.83] Pebbles Burden MD, [facility] CPT-4: 07315 01/01/2017 ([id number]) Miscellaneous no charge Diagnosis: Essential (primary) hypertension[ICD10: I10] Pebbles Burden MD, [facility] CPT-4: 46052 12/20/2016 ([id number]) 80848 EST. PATIENT, LEVEL IV Diagnosis: Essential (primary) hypertension[ICD10: I10] Diagnosis: Major depressive disorder, recurrent, mild[ICD10: F33.0] Diagnosis: Headache[ICD10: R51] Diagnosis: Other fatigue[ICD10: R53.83] Kim Burden MD, [facility] CPT-4: 54503 12/11/2016 ([id number]) 00242 EST. PATIENT, LEVEL IV Diagnosis: Essential (primary) hypertension[ICD10: I10] Diagnosis: Other allergic rhinitis[ICD10: J30.89] Diagnosis: Gastro-esophageal reflux disease without esophagitis[ICD10: K21.9] Kim Burden MD, [facility] CPT-4: 38565 10/15/2016 ([id number]) 65416 EST. PATIENT, LEVEL III Diagnosis: Essential (primary) hypertension[ICD10: I10] Diagnosis: Major depressive disorder, recurrent, mild[ICD10: F33.0] Kim Burden MD, [facility] CPT-4: 60540 07/17/2016 ([id number]) 29904 EST. PATIENT, LEVEL III Diagnosis: Pain in left hip[ICD10: M25.552] Diagnosis: Acute laryngopharyngitis[ICD10: J06.0] Kim Burden MD, [facility] CPT-4: 95576 05/15/2016 ([id number]) 50566 EST. PATIENT, LEVEL III Diagnosis: Fracture of unspecified parts of lumbosacral spine and pelvis, initial encounter for closed fracture[ICD10: S32.9XXA] Diagnosis: Essential (primary) hypertension[ICD10: I10] Kim Burden MD, [facility] CPT-4: 13031 04/23/2016 11226 EST. PATIENT, LEVEL IV Diagnosis: Acute laryngopharyngitis[ICD10: J06.0] Diagnosis: Other allergic rhinitis[ICD10: J30.89] Pebbles Burden MD, [facility] CPT- 4: 77822 03/14/2016 40296 EST. PATIENT, LEVEL IV Diagnosis: Dysuria[ICD10: R30.0] Diagnosis: Left lower quadrant pain[ICD10: R10.32] Pebbles Burden MD, [facility] CPT-4: 95331 02/19/2016 ([id number] 56439 EST. PATIENT, LEVEL IV Diagnosis: Essential (primary) hypertension[ICD10: I10] Diagnosis: Gastro-esophageal reflux disease without esophagitis[ICD10: K21.9] Diagnosis: Major depressive disorder, recurrent, mild[ICD10: F33.0] Kim Burden MD, [facility] CPT-4: 00327 12/19/2015 ([id number]) 06061 EST. PATIENT, LEVEL IV Diagnosis: ESSENTIAL HYPERTENSION[ICD9: 401.9] Diagnosis: ACUTE URI[ICD9: 465.9] Kim Burden MD, [facility] CPT-4: 42747 03/06/2015 ([id number]) OFFICE VISIT, NEW - LEVEL 4 Diagnosis: ESOPHAGEAL REFLUX[ICD9: 530.81] Diagnosis: ESSENTIAL HYPERTENSION[ICD9: 401.9] Diagnosis: COPD (chronic obstructive pulmonary disease)[ICD9: 496] Diagnosis: ALLERGIC RHINITIS[ICD9: 477.9] Mallorie Burden MD, [facility] CPT-4: 44856 02/07/2015 Plan of Care Planned Activity Notes Codes Status Date Visit Plan: Hypertension - well controlled - continue with current medications, continue with no added salt diet. Pt has been encouraged to exercise daily.The pt has been advised to call the office if there are any acute concerns about change in blood pressure readings at home.Chronic neutropenia - stable for years - no change in plans for monitoring - repeat cbc with differential in 4 monthsChronic Depression and anxiety - the pt has symptoms of chronic anxiety and depression that have been fairly well controlled since the last office visit. The pt has expected periods of exacerbation with abatement of the symptoms with change in situational exposure. No change in current medications. 03/13/2017 Patient Education: Patient Medication Summary Completed [...] the office next week for practitioner to review.The pt is to call for acute concerns.COPD - recommended pt to use oxygen, and call if symptoms worsening. 02/10/2017 Appointment: [id number] (15 min) Moderate 02/10/2017 Patient Education: Patient Medication Summary Completed 02/10/2017 Visit Plan: COPD - chronic problem for this patient. We have reviewed chronic treatment strategy, symptom control, and plans for acute exacerbations. No changes today to the current treatment plan as the patient is stable, monitor for acute changes.Hypertension - well controlled - continue with current medications, continue with no added salt diet. Pt has been encouraged to exercise daily.The pt has been advised to call the office if there are any acute concerns about change in blood pressure readings at home.Esophageal Reflux - the patient has been counseled against excessive intake of caffeine, spicy foods, peppermint, and cinnamon - all of which can exacerbate esophageal reflux.The patient is to take medications as prescribed and call the office if the symptoms are not improving. 01/14/2017 Appointment: [phone] [id number] (15 min) Moderate 01/14/2017 Patient Education: Patient Medication Summary Completed 01/14/2017 Visit Plan: Dehydration, palpitations, malaise, headache - will send for outpatient fluids, will check labs, ekg. Pt is to restart her spironolactone, continue to monitor blood pressures and heart rates and notify clinic if symptoms do not improve, if they worsen, or with any questions or concerns. 01/07/2017 Appointment: Pebbles Lund [facility]el[phone] ([facility] min) Complex 01/07/2017 Patient Education: Patient Medication Summary Completed 01/07/2017 Appointment: Nurse Visit 01/02/2017 Patient Education: Patient Medication Summary Completed 01/02/2017 Visit Plan: COPD - chronic problem for this patient. We have reviewed chronic treatment strategy, symptom control, and plans for acute exacerbations. No changes today to the current treatment plan as the patient is stable, monitor for acute changes.On room air spO2 sat 84%, with 2 [...] the patient is stable, monitor for acute changes.Resting on room air spO2 sat 84%, Resting with 2 L O2 per [place] pt's spO2 was 97%. Will order portable O2 for pt. pt is on chronic antihypertensive medic ation - the medication has been adjusted down to attempt to alleviate the low blood pressures. 01/01/2017 Appointment: Pebbles Lund [facility]el[phone] [facility] ([facility]) Complex 01/01/2017 Patient Education: [...] risk and to maintain independece in the home.Today we discussed the need for the patient to create paperwork for Advanced directives as well as for the patient to provide this office with a copy of her DOPA paperwork for health care surrogate. 12/12/2016 Appointment: Pebbles Lund [facility]Ptel[facility] [facility] [facility] - Annual Wellness Visit 12/12/2016 [...] the office next week for practitioner to review.The pt is to call for acute concerns.Hx of nocturnal hypoxemia - pt stopped using [...] which may be directly related to nocturnal hypoxemia.Depression - no change in meds at this [...] the office next week for practitioner to review.The pt is to call for acute concerns.Hx of nocturnal hypoxemia - pt stopped using [...] which may be directly related to nocturnal hypoxemia.Depression - no change in meds at this time. 12/11/2016 Appointment: [phone] [place] (15 min) Moderate 12/11/2016 Patient Education: Patient Medication Summary Completed 12/11/2016 Appointment: Mall[phone] [facility] [place] (30 min) Complex 12/10/2016 Visit Plan: Hypertension - well controlled - continue with current medications, continue with no added salt diet. Pt has been encouraged to exercise daily.The pt has been advised to call the office if there are any acute concerns about change in blood pressure readings at home.Esophageal Reflux - the patient has been counseled against excessive intake of caffeine, spicy foods, peppermint, and cinnamon - all of which can exacerbate esophageal reflux.The patient is to take medications as prescribed and call the office if the symptoms are not improving. 10/15/2016 Appointment: Kim Burden WPtel: [phone] [facility] (15 min) Moderate 10/15/2016 Patient Education: Patient Medication Summary Completed 10/15/2016 Appointment: Injection 08/28/2016 Patient Education: Patient Medication Summary Completed 08/28/2016 Visit Plan: Hypertension - well controlled - continue with current medications, continue with no added salt diet. Pt has been encouraged to exercise daily.The pt has been advised to call the office if there are any acute concerns about change in blood pressure readings at home.Depression - has improved - continue with lexapro. 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 07/17/2016 Appointment: Kim Burden WPtel: [facility] (15 min) Moderate 07/17/2016 Patient Education: Patient Medication Summary Completed 07/17/2016 Appointment: Kim Burden WPtel: [facility]7 [facility] (15 min) Moderate 06/10/2016 Visit Plan: Hip pain - persistent but improving - continue with current treatment plan.Pt to call if her symptoms are not improving or if her hip pain worsens.URI symptoms - supportive care, use otc allergy medications. 05/15/2016 Appointment: Kim Burden WPtel: [phone] [facility] (15 min) Moderate 05/15/2016 Patient Education: Patient Medication Summary Completed 05/15/2016 Visit Plan: HTN - blood pressure too well controlled - recommend pt to stop amlodipine, monitor blood pressure at home and call if pressure starts to rise too quickly.Pelvic pain improving per patient report - pt has been advised that she needs to keep her activities easy, slowly advance movements - call if not improving. 04/23/2016 Appointment: Kim Burden WPtel: [facility]9 [facility] (15 min) Moderate 04/23/2016 Patient Education: Patient Medication Summary Completed 04/23/2016 Patient Education: Hypertension Completed 04/23/2016 Care Plan[facility] [address] Pending 03/18/2016 Visit Plan: URI - Pt advised to increase fluids, vitamin C. Discussed natural and expected course of this diagnosis and need to alert me if symptoms do not follow expected course, or if any worse. RX sent to patient's pharmacy.Allergies - chronic - recommended pt to use allergy medication as prescribed. Pt has been counseled as to the appropriate use of the medication. Pt to call if allergy symptoms are not controlled with the medication.If using nasal spray, instructions as follows: Nasal spray- use twice daily, one spray per nostril twice daily, after 30 minutes, rinse out nose with saline spray.. Use opposite hand per nostril to spray in the nasal steroid allergy spray. 03/14/2016 Appointment: Pebbles Lund WPtel: [facility] (30 min) Complex 03/14/2016 Patient Education: Patient Medication Summary Completed 03/14/2016 Patient Education: Patient Medication Summary Completed 02/29/2016 Visit Plan: Flank pain - pt is currently being treated for UTI, but is having continued left flank pain - will get KUB - pt is to notify clinic if symptoms do not improve, or with any concerns. 02/19/2016 Appointment: Pebbles Lund WPtel: [facility] (30 min) Complex 02/19/2016 Patient Education: Patient Medication Summary Completed 02/19/2016 Appointment: Kim Burden WPtel: [facility]3 [facility] (15 min) Moderate 01/22/2016 Visit Plan: Hypertension - well controlled - continue with current medications, continue with no added salt diet. Pt has been encouraged to exercise daily.The pt has been advised to call the office if there are any acute concerns about change in blood pressure readings at home.Depression - uncontrolled - Pt has been counseled about the diagnosis of depression, the potential causes, and risks associated with the diagnosis. The pt denies suicidal ideation, or plans. The patient has been counseled about treatment options, and understands the risks associated with treatment of depression, as well as the risks associated with NOT treating the depression.I believe the pt will benefit from medical intervention and an antidepressant has been appropriately prescribed for this patientEsophageal Reflux - the patient has been counseled against excessive intake of caffeine, spicy foods, peppermint, and cinnamon - all of which can exacerbate esophageal reflux.The patient is to take medications as prescribed and call the office if the symptoms are not improving. 12/19/2015 Appointment: Kim Burden WPtel: [phone] [facility] (15 min) Moderate 12/19/2015 Patient Education: Patient [...] the office next week for practitioner to review.The pt is to call for acute concerns.URI - Pt advised to increase fluids, vitamin C. Discussed natural and expected course of this diagnosis and need to alert me if symptoms do not follow expected course, or if any worse. Finish RX. 03/06/2015 Appointment: Kim Burden [facility]Ptel: [facility] Follow up 03/06/2015 Patient Education: Patient Medication [...] the office next week for practitioner to review.The pt is to call for acute concerns.Esophageal Reflux - the patient has been counseled against excessive intake of caffeine, spicy foods, peppermint, and cinnamon - all of which can exacerbate esophageal reflux.The patient is to take medications as prescribed and call the office if the symptoms are not improving.CHANGE TO OMEPRAZOLE BUT TAKE IT TWICE DAILY-START CARAFATE COPD - chronic problem for this patient. We have reviewed chronic treatment strategy, symptom control, and plans for acute exacerbations. No changes today to the current treatment plan as the patient is stable, monitor for acute changes.Allergies - chronic - recommended pt to use allergy medication as prescribed. Pt has been counseled as to the appropriate use of the medication. Pt to call if allergy symptoms are not controlled with the medication.Kenalog injection today in the office. 02/07/2015 Patient Education: Patient Medication Summary Completed 02/07/2015 Patient Education: Hypertension Completed 02/07/2015 Care Plan: SCREENINGMAMMOGRAPHYDIGITAL LOINC : 05983-4 Ordered 02/07/2015 Care Plan: COMPLETE CBC AUTOMATED LOINC : 06314-1 Ordered 02/07/2015 Instructions Comment . Dehydration, palpitations, malaise, headache - will send for outpatient fluids, will check labs, ekg. Pt is to restart her spironolactone, continue to monitor blood pressures and heart rates and notify clinic if symptoms do not improve, if they worsen, or with any questions or concerns. decrease omeprazole to 20mg at bedtime start on a probiotic to help decrease GI upset./loose stools - [employer]Writer or Curriculet . Hypertension - well controlled - continue [...] care surrogate. TAKE WITH FOOD AND PROBIOTIC (Violet OR [employer]MD(TM) by [employer]) . URI - Pt advised to increase [...] advance movements - call if not improving. restart the metoprolol 50mg pill and take [...]
[2019-04-06] MEDS ORDERED: NS IV 1000 ML 1,000 ML IV SCH ×2 (08:30→11:06)
--- OUTSIDE RECORDS SUMMARY | 2019-04-06 08:33 | XMS REPORT | CCD ---
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 Name Role Phone PP Unavailable CCM Unavailable Summary Purpose Interface Exchange Insurance Providers Payer name Policy type / Coverage type Covered democrat ID Effective Begin Date Effective End Date WPS Medicare Part B Medicare Part B [id number] 2018 Unknown AET[employer] Medicare Part B [id number] Unknown Family history Brother Diagnosis Age At [...] Unknown 3 02/07/[address]: 2699091 Quit over 10 years ago 199302/07/2015 Number [...] Codes Condition Status Onset Date Resolved Date Encounter for general adult medical examination with abnormal findings ICD-9: V70.0 ICD-10: Z00.01 Active 12/12/2016 Unknown Essential (primary) hypertension ICD-9: 401.1 ICD-10: I10 Active 01/14/2017 Unknown Fecal urgency ICD-9: 787.63 ICD-10: R15.2 Active 07/22/2018 Unknown 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 Active 12/22/2018 Unknown Other vitamin B12 deficiency anemias ICD-9: 281.1 ICD-10: D51.8 Active 06/02/2018 Unknown Chest pain, unspecified ICD-9: 786.50 ICD-10: R07.9 Active 09/15/2018 Unknown Other allergic rhinitis ICD-9: 477.9 ICD-10: [...] ICD-9: 491.22 ICD-10: J44.0 Active 05/05/2017 Unknown Chronic obstructive pulmonary disease, unspecified ICD-9: [...] Problems Condition Codes Effective Dates Condition Status Encounter for general adult medical examination with abnormal findings ICD-9: V70.0 ICD-10: Z00.01 12/12/2016 Active Essential (primary) hypertension ICD-9: 401.1 ICD-10: I10 01/14/2017 Active Fecal urgency ICD-9: 787.63 ICD-10: R15.2 07/22/2018 Active 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 12/22/2018 Active Other vitamin B12 deficiency anemias ICD-9: 281.1 ICD-10: D51.8 06/02/2018 Active Chest pain, unspecified ICD-9: 786.50 ICD-10: R07.9 09/15/2018 Active Other allergic rhinitis ICD-9: 477.9 ICD-10: [...] infection ICD-9: 491.22 ICD-10: J44.0 05/05/2017 Active Chronic obstructive pulmonary disease, unspecified ICD-9: [...] Fill Instructions Keflex 500 mg capsule RxNorm: 966373 1 Capsule(s) PO TID 01/27/2019 02/02/2019 Active Keflex 500 mg capsule RxNorm: 328237 1 Capsule(s) PO TID 01/27/2019 01/26/2019 Inactive Lexapro 20 mg tablet RxNorm: 471736 Tablet(s) PO TAKE 1 TABLET EVERY DAY 01/07/2019 01/01/2020 Active Lexapro 20 mg tablet RxNorm: 188303 Tablet(s) PO TAKE 1 TABLET EVERY DAY 01/07/2019 01/06/2019 Inactive Lexapro 20 mg tablet RxNorm: 765067 Tablet(s) PO TAKE 1 TABLET EVERY DAY 01/07/2019 01/06/2019 Inactive mupirocin 2 % topical ointment RxNorm: 759099 1 Application TOP BID 12/30/2018 No Stop Date Active cyanocobalamin (vit B-12) 1,000 mcg/mL injection solution RxNorm: 934436 Milliliter(s) Inj 12/22/2018 12/22/2018 Inactive metoprolol tartrate 50 mg tablet RxNorm: 565672 1/2 Tablet(s) PO BID 11/06/2018 10/31/2019 Active alprazolam 1 mg tablet RxNorm: 093983 1/2 Tablet(s) PO TID 11/06/2018 08/02/2019 Active ibuprofen 800 mg tablet RxNorm: 264348 Tablet(s) TAKE 1 TABLET THREE TIMES DAILY 11/06/2018 10/31/2019 Active losartan 100 mg tablet RxNorm: 713062 Tablet(s) TAKE 1 TABLET EVERY EVENING 11/06/2018 10/31/2019 Active Lexapro 10 mg tablet RxNorm: 725222 Tablet(s) TAKE 1 TABLET EVERY DAY 11/06/2018 01/06/2019 Inactive cyanocobalamin (vit B-12) 1,000 mcg/mL injection solution RxNorm: 369580 1 Milliliter(s) Inj 10/01/2018 10/01/2018 Inactive ibuprofen 800 mg tablet RxNorm: 276137 TAKE 1 TABLET THREE TIMES DAILY 09/28/2018 11/05/2018 Inactive cyanocobalamin (vit B-12) 1,000 mcg/mL injection solution RxNorm: 485800 1 Milliliter(s) Inj 09/15/2018 09/15/2018 Inactive Kenalog 40 mg/mL suspension for injection RxNorm: 8120218 Milliliter(s) Inj 09/15/2018 09/15/2018 Inactive alprazolam 1 mg tablet RxNorm: 540114 1/2 Tablet(s) PO TID 08/10/2018 11/05/2018 Inactive cyanocobalamin (vit B-12) 1,000 mcg/mL injection solution RxNorm: 033497 Milliliter(s) Inj 08/04/2018 08/04/2018 Inactive alprazolam 1 mg tablet RxNorm: 358813 1/2 Tablet(s) PO BID 08/04/2018 08/09/2018 Inactive cholestyramine (with sugar) 4 gram powder for susp in a packet RxNorm: 451182 1/2 to 1 packet PO TID take 30 minutes before meals 07/22/2018 12/21/2018 Inactive cyanocobalamin (vit B-12) 1,000 mcg/mL injection solution RxNorm: 015288 1 Milliliter(s) Inj 07/16/2018 07/16/2018 Inactive omeprazole 20 mg capsule,delayed release RxNorm: 446152 Capsule(s) TAKE 1 CAPSULE TWICE DAILY 07/01/2018 06/25/2019 Active cyanocobalamin (vit B-12) 1,000 mcg/mL injection solution RxNorm: 594046 Milliliter(s) Inj 07/01/2018 07/01/2018 Inactive omeprazole 20 mg capsule,delayed release RxNorm: 703777 TAKE 1 CAPSULE TWICE DAILY 07/01/2018 06/30/2018 Inactive alprazolam 1 mg tablet RxNorm: 543177 1 Tablet(s) PO TID 07/01/2018 08/03/2018 Inactive cyanocobalamin (vit B-12) 1,000 mcg/mL injection solution RxNorm: 752629 Milliliter(s) Inj 06/15/2018 06/15/2018 Inactive cyanocobalamin (vit B-12) 1,000 mcg/mL injection solution RxNorm: 140472 Milliliter(s) Inj 06/02/2018 06/02/2018 Inactive fluticasone 50 mcg/actuation nasal spray,suspension RxNorm: 6180012 1 [place] NASAL BID 05/26/2018 05/20/2019 Active Vitamin B-12 1,000 mcg/mL injection solution RxNorm: 894848 1 Milliliter(s) Inj Q2 weeks x2 months and then monthly injections 05/21/2018 No Stop Date Active cyanocobalamin (vit B-12) 1,000 mcg/mL injection solution RxNorm: 047757 Milliliter(s) Inj 05/21/2018 05/21/2018 Inactive fluticasone 50 mcg/actuation nasal spray,suspension RxNorm: 4478729 1 [place] NASAL BID 05/19/2018 05/25/2018 Inactive fluticasone 50 mcg/actuation nasal spray,suspension RxNorm: 6041847 1 [place] NASAL BID 05/18/2018 05/18/2018 Inactive fluticasone 50 mcg/actuation nasal spray,suspension RxNorm: 6289149 1 [place] NASAL BID 05/15/2018 05/17/2018 Inactive fluticasone 50 mcg/actuation nasal spray,suspension RxNorm: 4022296 1 [place] NASAL BID 05/15/2018 05/14/2018 Inactive nystatin 100,000 unit/mL oral suspension RxNorm: 941723 5 Milliliter(s) PO QID 04/21/2018 04/30/2018 Inactive Breo Ellipta 100 mcg-25 mcg/dose powder for inhalation RxNorm: 6101275 1 INH daily 04/09/2018 04/03/2019 Active please call patient with jaramillo before sending prednisone 20 mg tablet RxNorm: 993549 1 Tablet(s) PO BID 04/09/2018 04/13/2018 Inactive start tomorrow Kenalog 40 mg/mL suspension for injection RxNorm: 2320273 1.5 Milliliter(s) Inj 04/09/2018 04/09/2018 Inactive Breo Ellipta 100 mcg-25 mcg/dose powder for inhalation RxNorm: 7212089 1 INH daily 04/09/2018 04/08/2018 Inactive alprazolam 1 mg tablet RxNorm: 539056 1 Tablet(s) PO TID 03/13/2018 06/30/2018 Inactive losartan 100 mg tablet RxNorm: 031245 TAKE 1 TABLET EVERY EVENING 03/02/2018 11/05/2018 Inactive Ventolin HFA 90 mcg/actuation aerosol inhaler RxNorm: 684403 2 INH Q4-6H as needed 12/29/2017 02/26/2018 Inactive Ventolin HFA 90 mcg/actuation aerosol inhaler RxNorm: 332676 2 INH Q4-6H as needed 12/29/2017 12/28/2017 Inactive Diflucan 150 mg tablet RxNorm: 146716 1 Tablet(s) PO daily 11/03/2017 11/05/2017 Inactive please call pt to let herknow when to pick- up the med Keflex 500 mg capsule RxNorm: 904612 1 Capsule(s) PO TID 10/23/2017 10/29/2017 Inactive Kenalog 40 mg/mL suspension for injection RxNorm: 9608041 1 Milliliter(s) Inj 10/16/2017 10/16/2017 Inactive ibuprofen 800 mg tablet RxNorm: 887997 TAKE 1 TABLET THREE TIMES DAILY 10/15/2017 09/27/2018 Inactive Lexapro 10 mg tablet RxNorm: 442033 TAKE 1 TABLET EVERY DAY 10/15/2017 10/09/2018 Inactive hydrocodone 5 mg-acetaminophen 325 mg tablet RxNorm: 211207 1 Tablet(s) PO QID as needed 09/03/2017 07/21/2018 Inactive omeprazole 20 mg capsule,delayed release RxNorm: 649031 1 Capsule(s) PO BID 09/02/2017 06/30/2018 Inactive alprazolam 1 mg tablet RxNorm: 285598 1 Tablet(s) PO TID 09/02/2017 03/12/2018 Inactive metoprolol tartrate 50 mg tablet RxNorm: 738805 1/2 Tablet(s) PO BID 06/26/2017 06/20/2018 Inactive omeprazole 20 mg capsule,delayed release RxNorm: 406257 1 Capsule(s) PO BID 06/05/2017 09/01/2017 Inactive omeprazole 20 mg capsule,delayed release RxNorm: 988798 1 Capsule(s) PO BID 05/28/2017 06/04/2017 Inactive omeprazole 20 mg capsule,delayed release RxNorm: 291326 1 Capsule(s) PO QPM 05/27/2017 05/27/2017 Inactive Breo Ellipta 100 mcg-25 mcg/dose powder for inhalation RxNorm: 2719105 1 INH daily 05/05/2017 04/08/2018 Inactive alprazolam 1 mg tablet RxNorm: 098108 1 Tablet(s) PO TID 02/10/2017 08/07/2017 Inactive metoprolol tartrate 50 mg tablet RxNorm: 973506 1/2 Tablet(s) PO BID 02/10/2017 06/25/2017 Inactive losartan 100 mg tablet RxNorm: 805929 1 Tablet(s) PO QPM 02/10/2017 02/04/2018 Inactive losartan 50 mg tablet RxNorm: 255860 2 Tablet(s) PO QPM 01/23/2017 02/09/2017 Inactive Diflucan 150 mg tablet RxNorm: 698463 1 Tablet(s) PO daily 01/20/2017 01/22/2017 Inactive please call pt to let herknow when to pick- up the med Diflucan 150 mg tablet RxNorm: 072095 1 Tablet(s) PO daily 01/20/2017 01/19/2017 Inactive please call pt to let herknow when to pick- up the med losartan 50 mg tablet RxNorm: 477591 1 Tablet(s) PO QPM 01/14/2017 01/22/2017 Inactive Cipro 500 mg tablet RxNorm: 246654 1 Tablet(s) PO BID 01/08/2017 01/17/2017 Inactive Cipro 500 mg tablet RxNorm: 915800 1 Tablet(s) PO BID 01/08/2017 01/07/2017 Inactive Lexapro 10 mg tablet RxNorm: 008706 TAKE 1 TABLET EVERY DAY 12/20/2016 10/14/2017 Inactive metoprolol tartrate 50 mg tablet RxNorm: 090005 1 Tablet(s) PO in the morning and 1.5 pill at night 12/11/2016 01/13/2017 Inactive spironolactone 25 mg tablet RxNorm: 333108 TAKE 1 TABLET EVERY DAY 11/04/2016 07/21/2018 Inactive metoprolol tartrate 50 mg tablet RxNorm: 759432 TAKE 1 TABLET TWICE DAILY 10/29/2016 12/10/2016 Inactive ibuprofen 800 mg tablet RxNorm: 150746 TAKE 1 TABLET THREE TIMES DAILY 10/21/2016 10/14/2017 Inactive Astepro 0.15 % (205.5 mcg) nasal spray RxNorm: 9131318 1 [place] NASAL BID 10/15/2016 10/14/2016 Inactive Astepro 0.15 % (205.5 mcg) nasal spray RxNorm: 9082046 1 [place] NASAL BID 10/15/2016 07/21/2018 Inactive Astepro 0.15 % (205.5 mcg) nasal spray RxNorm: 1071346 1 [place] NASAL BID 10/15/2016 10/14/2016 Inactive omeprazole 20 mg capsule,delayed release RxNorm: 996095 1 Capsule(s) PO QPM 10/15/2016 05/26/2017 Inactive omeprazole 20 mg capsule,delayed release RxNorm: 245757 1 Capsule(s) QPM 10/15/2016 10/14/2016 Inactive omeprazole 20 mg capsule,delayed release RxNorm: 851378 TAKE 1 CAPSULE TWICE DAILY 09/02/2016 10/14/2016 Inactive Lexapro 10 mg tablet RxNorm: 268756 TAKE 1 TABLET EVERY DAY 08/21/2016 12/19/2016 Inactive calcitonin (salmon) 200 unit/actuation nasal spray RxNorm: 952620 1 [place] NASAL daily ONE SPRAY PER ONE NOSTRIL DAILY- ALTERNATE NOSTRILS DAILY 05/31/2016 05/30/2016 Inactive She will do this for 3 months- If she wants to do a 3 month supply at one time she can without refill calcitonin (salmon) 200 unit/actuation nasal spray RxNorm: 118450 1 [place] NASAL daily ONE SPRAY PER ONE NOSTRIL DAILY- ALTERNATE NOSTRILS DAILY 05/31/2016 07/30/2016 Inactive x3 months- no refills Forteo 20 mcg/dose (600 mcg/2.4 mL) subcutaneous pen injector RxNorm: 7086304 1 injection SQ daily 05/22/2016 05/30/2016 Inactive call pt with jaramillo first Forteo 20 mcg/dose (600 mcg/2.4 mL) subcutaneous pen injector RxNorm: 2871716 1 injection SQ daily 05/22/2016 05/21/2016 Inactive Prolia 60 mg/mL subcutaneous syringe RxNorm: 600424 1 Milliliter(s) SQ every 6 months 05/13/2016 07/21/2018 Inactive Please check jaramillo through insurance and let me know- Thanks! Mary Ellen alprazolam 1 mg tablet RxNorm: 850121 1 Tablet(s) PO TID 05/08/2016 11/01/2016 Inactive Lexapro 10 mg tablet RxNorm: 527329 TAKE 1 TABLET EVERY DAY 04/22/2016 08/20/2016 Inactive spironolactone 25 mg tablet RxNorm: 262976 TAKE 1 TABLET EVERY DAY 04/22/2016 11/03/2016 Inactive Diflucan 150 mg tablet RxNorm: 225765 1 Tablet(s) PO daily 03/20/2016 04/14/2016 Inactive Diflucan 150 mg tablet RxNorm: 240759 1 Tablet(s) PO daily 03/20/2016 03/19/2016 Inactive Augmentin 500 mg-125 mg tablet RxNorm: 372218 1 Tablet(s) PO TID 03/14/2016 03/23/2016 Inactive omeprazole 20 mg capsule,delayed release RxNorm: 917611 1 Tablet(s) PO BID 03/06/2016 09/01/2016 Inactive [SAVINGS FOR NON-COVERED DRUGS -- BIN:143698, PCN: ASPROD1, Group: XXXXX, ID# XXXXXXX, Questions: . THIS IS NOT INSURANCE.] amlodipine 5 mg tablet RxNorm: 856411 TAKE 1 TABLET EVERY DAY 03/01/2016 04/22/2016 Inactive omeprazole 20 mg tablet,delayed release RxNorm: 668520 1 Tablet(s) PO BID 02/27/2016 03/05/2016 Inactive [SAVINGS FOR NON-COVERED DRUGS -- BIN:032088, PCN: ASPROD1, Group: XXXXX, ID# XXXXXXX, Questions: . THIS IS NOT INSURANCE.] spironolactone 25 mg tablet RxNorm: 539878 TAKE 1 TABLET EVERY DAY 12/21/2015 04/21/2016 Inactive Lexapro 10 mg tablet RxNorm: 904666 1 Tablet(s) PO daily 12/19/2015 01/01/2016 Inactive Lexapro 10 mg tablet RxNorm: 349014 1 Tablet(s) PO daily 12/19/2015 02/09/2017 Inactive Lexapro 10 mg tablet RxNorm: 872940 1 Tablet(s) PO daily 12/19/2015 12/18/2015 Inactive alprazolam 1 mg tablet RxNorm: 316930 1 Tablet(s) PO TID 12/01/2015 02/28/2016 Inactive ibuprofen 800 mg tablet RxNorm: 006176 1 Tablet(s) PO TID 10/26/2015 10/20/2016 Inactive alprazolam 1 mg tablet RxNorm: 385473 1 Tablet(s) PO TID 08/23/2015 07/21/2018 Inactive spironolactone 25 mg tablet RxNorm: 490853 1 Tablet(s) PO daily 08/21/2015 12/20/2015 Inactive metoprolol tartrate 50 mg tablet RxNorm: 845214 1 Tablet(s) PO BID 08/10/2015 08/03/2016 Inactive [SAVINGS FOR NON-COVERED DRUGS -- BIN:869929, PCN: ASPROD1, Group: XXXXX, ID# XXXXXXX, Questions: . THIS IS NOT INSURANCE.] omeprazole 20 mg tablet,delayed release RxNorm: 064194 1 Tablet(s) PO BID 08/07/2015 02/02/2016 Inactive [SAVINGS FOR NON-COVERED DRUGS -- BIN:501805, PCN: ASPROD1, Group: XXXXX, ID# XXXXXXX, Questions: . THIS IS NOT INSURANCE.] Keflex 500 mg capsule RxNorm: 181389 1 Capsule(s) PO TID 07/10/2015 07/16/2015 Inactive alprazolam 1 mg tablet RxNorm: 423152 1 Tablet(s) PO TID 06/02/2015 08/22/2015 Inactive alprazolam 1 mg tablet RxNorm: 271171 1 Tablet(s) PO TID 03/29/2015 06/01/2015 Inactive amlodipine 5 mg tablet RxNorm: 168180 1 Tablet(s) PO daily 03/06/2015 02/29/2016 Inactive Nasonex 50 mcg/actuation [place] RxNorm: 759622 1 [place] NASAL daily 03/03/2015 03/02/2015 Inactive Keflex 500 mg capsule RxNorm: 082826 1 Capsule(s) PO TID 03/03/2015 03/02/2015 Inactive Nasonex 50 mcg/actuation [place] RxNorm: 436847 1 [place] NASAL daily 03/03/2015 05/01/2015 Inactive Keflex 500 mg capsule RxNorm: 798890 1 Capsule(s) PO TID 03/03/2015 03/05/2015 Inactive Carafate 1 gram tablet RxNorm: 101872 TAKE 1 TABLET FOUR TIMES DAILY 30 MINUTES BEFORE MEALS AND AT BEDTIME 02/28/2015 12/18/2015 Inactive Kenalog 40 mg/mL suspension for injection RxNorm: 3234106 Milliliter(s) Inj 02/07/2015 02/07/2015 Inactive [SAVINGS FOR NON-COVERED DRUGS -- BIN:386809, PCN: ASPROD1, Group: XXXXX, ID# XXXXXXX, Questions: . THIS IS NOT INSURANCE.] metoprolol tartrate 50 mg tablet RxNorm: 216361 1 Tablet(s) PO BID 02/07/2015 08/09/2015 Inactive [SAVINGS FOR NON-COVERED DRUGS -- BIN:702274, PCN: ASPROD1, Group: XXXXX, ID# XXXXXXX, Questions: . THIS IS NOT INSURANCE.] Carafate 1 gram tablet RxNorm: 085117 1 Tablet(s) PO QID 02/07/2015 02/27/2015 Inactive 30 min before meals and at bedtime omeprazole 20 mg tablet,delayed release RxNorm: 335237 1 Tablet(s) PO BID 02/07/2015 08/05/2015 Inactive [SAVINGS FOR NON-COVERED DRUGS -- BIN:307469, PCN: ASPROD1, Group: XXXXX, ID# XXXXXXX, Questions: . THIS IS NOT INSURANCE.] Vitamin D3 2,000 unit tablet RxNorm: 692232 1 Tablet(s) PO daily No Start Date Active aspirin 81 mg tablet RxNorm: 089633 1 Tablet(s) PO daily No Start Date Active amlodipine 2.5 mg tablet RxNorm: 162806 1 Tablet(s) PO daily No Start Date 03/05/2015 Inactive spironolactone 25 mg tablet RxNorm: 988435 1 Tablet(s) PO daily No Start Date 08/20/2015 Inactive cetirizine 10 mg tablet RxNorm: 3528222 1 Tablet(s) PO daily No Start Date 12/18/2015 Inactive metoprolol tartrate 50 mg tablet RxNorm: 733348 1 Tablet(s) PO daily No Start Date 02/06/2015 Inactive ipratropium bromide 0.06 % nasal spray RxNorm: 197340 nasal No Start Date 12/18/2015 Inactive alprazolam 1 mg tablet RxNorm: 349506 1 Tablet(s) PO TID No Start Date 03/28/2015 Inactive Prolia 60 mg/mL subcutaneous syringe RxNorm: 782969 1 Milliliter(s) SQ every 6 months No Start Date 05/12/2016 Inactive Please check jaramillo through insurance and let me know- Thanks! Mary Ellen ibuprofen 800 mg tablet RxNorm: 416319 1 Tablet(s) PO TID No Start Date 10/25/2015 Inactive Protonix 40 mg tablet,delayed release RxNorm: 313897 1 Tablet(s) PO daily No Start Date 03/05/2015 Inactive Vitamin B-12 1,000 mcg/mL injection solution RxNorm: 159159 1 Milliliter(s) Inj Q2 weeks x2 months and then monthly injections No Start Date 05/20/2018 Inactive loratadine 10 mg tablet RxNorm: 210821 1 Tablet(s) PO daily No Start Date 07/21/2018 Inactive Medication Administered Medication Codes Instructions Start Date Status cyanocobalamin (vit B-12) 1,000 mcg/mL injection solution RxNorm: 034086 Milliliter 12/22/2018 No longer Active cyanocobalamin (vit B-12) 1,000 mcg/mL injection solution RxNorm: 983900 1Milliliter 10/01/2018 No longer Active Kenalog 40 mg/mL suspension for injection RxNorm: 1273552 Milliliter 09/15/2018 No longer Active cyanocobalamin (vit B-12) 1,000 mcg/mL injection solution RxNorm: 625659 1Milliliter 09/15/2018 No longer Active cyanocobalamin (vit B-12) 1,000 mcg/mL injection solution RxNorm: 440906 Milliliter 08/04/2018 No longer Active cyanocobalamin (vit B-12) 1,000 mcg/mL injection solution RxNorm: 038946 1Milliliter 07/16/2018 No longer Active cyanocobalamin (vit B-12) 1,000 mcg/mL injection solution RxNorm: 830687 Milliliter 07/01/2018 No longer Active cyanocobalamin (vit B-12) 1,000 mcg/mL injection solution RxNorm: 441688 Milliliter 06/15/2018 No longer Active cyanocobalamin (vit B-12) 1,000 mcg/mL injection solution RxNorm: 133126 Milliliter 06/02/2018 No longer Active cyanocobalamin (vit B-12) 1,000 mcg/mL injection solution RxNorm: 454095 Milliliter 05/21/2018 No longer Active Kenalog 40 mg/mL suspension for injection RxNorm: 9425180 1.5Milliliter 04/09/2018 No longer Active Kenalog 40 mg/mL suspension for injection RxNorm: 7308044 1Milliliter 10/16/2017 No longer Active Kenalog 40 mg/mL suspension for injection RxNorm: 3605261 Milliliter 02/07/2015 No longer Active Immunizations Vaccine Codes Date Status Influenza CVX: 141 06/25/2018 completed Pneumococcal (Adult) CVX: 33 08/28/2016 completed Assessments Condition Codes Effective Dates Encounter for general adult medical examination with abnormal findings ICD-10: Z00.01 ICD-9: V70.0 12/30/2018 Fecal urgency ICD-10: R15.2 ICD-9: 787.63 12/22/2018 Essential (primary) hypertension ICD-10: I10 ICD-9: 401.1 12/22/2018 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 ICD-9: 564.5 12/22/2018 Other vitamin B12 deficiency anemias ICD-10: D51.8 ICD-9: 281.1 12/22/2018 Chest pain, unspecified ICD-10: R07.9 ICD-9: 786.50 09/15/2018 Other allergic rhinitis ICD-10: J30.89 ICD-9: 477.9 [...] respiratory infection ICD-10: J44.0 ICD-9: 491.22 05/05/2017 Chronic obstructive pulmonary disease, unspecified ICD-10: J44.9 [...] Visit Reason For Visit Effective Dates Notes Annual Medicare Wellness Exam 12/30/2018 constipation 12/22/2018 [...] Item Item Code Result Date Comp Metabolic Mbk795 NA 138 mEq/L 09/03/2017 Comp Metabolic Qmw242 K 3.9 mEq/L 09/03/2017 Comp Metabolic Bcg851 CL 102 mEq/L 09/03/2017 Comp Metabolic Eyc516 CO2 32.0 mEq/L 09/03/2017 Comp Metabolic Sey234 ANION GAP 8 09/03/2017 Comp Metabolic Xfk463 GLUCOSE 89 mg/dL 09/03/2017 Comp Metabolic Pgp033 Creat 0.6 mg/dL 09/03/2017 Comp Metabolic Yzm426 eGFR 103 ml/min/1.73m2 09/03/2017 Comp Metabolic Xbk447 BUN 10 mg/dL 09/03/2017 Comp Metabolic Mei454 B/C Ratio 16.7 Ratio 09/03/2017 Comp Metabolic Prw761 CALCIUM 8.9 mg/dL 09/03/2017 Comp Metabolic Pqt864 ALK PHOS 141 U/L 09/03/2017 Comp Metabolic Zfc828 AST(SGOT) 12 U/L 09/03/2017 Comp Metabolic Rqm860 ALT(SGPT) 7 U/L 09/03/2017 Comp Metabolic Qli584 BILI T 0.6 mg/dL 09/03/2017 Comp Metabolic Hzj470 ALBUMIN 3.6 g/dL 09/03/2017 Comp Metabolic Vme929 TPRO 6.6 g/dL 09/03/2017 Comp Metabolic Zfy163 GLOB 3.0 g/dL 09/03/2017 Comp Metabolic Jdi199 A/G Ratio 1.2 Ratio 09/03/2017 Comp Metabolic Urh337 Osmo 274 mOsmo 09/03/2017 Hepatic Ijq714 ALBUMIN 3.7 g/dL 08/11/2017 Hepatic Leo067 TPRO 7.0 g/dL 08/11/2017 Hepatic Ypr168 GLOB 3.3 g/dL 08/11/2017 Hepatic Zqf083 A/G Ratio 1.1 Ratio 08/11/2017 Hepatic Qxe326 ALK PHOS 85 U/L 08/11/2017 Hepatic Biy340 ALT(SGPT) 11 U/L 08/11/2017 Hepatic Ldu651 AST(SGOT) 16 U/L 08/11/2017 Hepatic Aap748 BILI T 0.6 mg/dL 08/11/2017 Hepatic Srp374 BILI D 0.1 mg/dL 08/11/2017 Hepatic Mih651 BILI I 0.5 mg/dL 08/11/2017 Hepatic Snu906 ALBUMIN 3.1 g/dL 07/18/2017 Hepatic Igv968 TPRO 5.9 g/dL 07/18/2017 Hepatic Dwd324 GLOB 2.8 g/dL 07/18/2017 Hepatic Kqy026 A/G Ratio 1.1 Ratio 07/18/2017 Hepatic Isx732 ALK PHOS 123 U/L 07/18/2017 Hepatic Gvs841 ALT(SGPT) 210 U/L 07/18/2017 Hepatic Ezs479 AST(SGOT) 71 U/L 07/18/2017 Hepatic Pli414 BILI T 1.1 mg/dL 07/18/2017 Hepatic Ghb855 BILI D 0.4 mg/dL 07/18/2017 Hepatic Ncy086 BILI I 0.7 mg/dL 07/18/2017 Cbc With [...] 32.4 pg 02/25/2017 Cbc With Differential Ord2 [place]% 7.6 % 02/25/2017 Cbc With Differential Ord2 [...] 1.22 K/ul 02/25/2017 Cbc With Differential Ord2 [place] ABS# 0.4 K/ul 02/25/2017 Cbc With Differential [...] 32.3 pg 01/02/2017 Cbc With Differential Ord2 [place]% 7.8 % 01/02/2017 Cbc With Differential Ord2 [...] 0.90 K/ul 01/02/2017 Cbc With Differential Ord2 [place] ABS# 0.4 K/ul 01/02/2017 Cbc With Differential Ord2 Eos ABS# 0.3 K/ul 01/02/2017 Cbc With Differential Ord2 Baso ABS# 0.0 K/ul 01/02/2017 Lipid Ord30 CHOL 139 mg/dL 12/13/2016 Lipid Ord30 HDL 48.0 mg/dl 12/13/2016 Lipid Ord30 TRIG 84 mg/dL 12/13/2016 Lipid Ord30 LDL 74 mg/dL 12/13/2016 Lipid Ord30 C/HDL 2.9 Ratio 12/13/2016 Comp Metabolic Ujt500 NA 137 mEq/L 12/13/2016 Comp Metabolic Kzu888 K 4.8 mEq/L 12/13/2016 Comp Metabolic Gsn632 CL 101 mEq/L 12/13/2016 Comp Metabolic Dms730 CO2 32.0 mEq/L 12/13/2016 Comp Metabolic Yxs594 ANION GAP 9 12/13/2016 Comp Metabolic Aiy261 GLUCOSE 95 mg/dL 12/13/2016 Comp Metabolic Voo630 Creat 0.8 mg/dL 12/13/2016 Comp Metabolic Aca728 eGFR 79 ml/min/1.73m2 12/13/2016 Comp Metabolic Rwz200 BUN 15 mg/dL 12/13/2016 Comp Metabolic Acy232 B/C Ratio 19.7 Ratio 12/13/2016 Comp Metabolic Led705 CALCIUM 9.3 mg/dL 12/13/2016 Comp Metabolic Lkt162 ALK PHOS 63 U/L 12/13/2016 Comp Metabolic Eob012 AST(SGOT) 15 U/L 12/13/2016 Comp Metabolic Elr965 ALT(SGPT) 10 U/L 12/13/2016 Comp Metabolic Gqt346 BILI T 0.7 mg/dL 12/13/2016 Comp Metabolic Jym128 ALBUMIN 3.7 g/dL 12/13/2016 Comp Metabolic Ixz854 TPRO 6.8 g/dL 12/13/2016 Comp Metabolic Ljt037 GLOB 3.2 g/dL 12/13/2016 Comp Metabolic Xbe671 A/G Ratio 1.2 Ratio 12/13/2016 Comp Metabolic Bxk776 Osmo 274 mOsmo 12/13/2016 Cbc With Differential [...] 31.9 pg 12/13/2016 Cbc With Differential Ord2 [place]% 9.9 % 12/13/2016 Cbc With Differential Ord2 [...] 1.17 K/ul 12/13/2016 Cbc With Differential Ord2 [place] ABS# 0.4 K/ul 12/13/2016 Cbc With Differential [...] 32.1 pg 12/19/2015 Cbc With Differential Ord2 [place]% 5.9 % 12/19/2015 Cbc With Differential Ord2 [...] 1.53 K/ul 12/19/2015 Cbc With Differential Ord2 [place] ABS# 0.3 K/ul 12/19/2015 Cbc With Differential [...] Ord30 C/HDL 2.8 Ratio 12/19/2015 Comp Metabolic Lui767 NA 135 mEq/L 12/19/2015 Comp Metabolic Jzj522 K 4.1 mEq/L 12/19/2015 Comp Metabolic Rij986 CL 99 mEq/L 12/19/2015 Comp Metabolic Rns268 CO2 27.0 mEq/L 12/19/2015 Comp Metabolic Dmp611 ANION GAP 13 12/19/2015 Comp Metabolic Lsq150 GLUCOSE 83 mg/dL 12/19/2015 Comp Metabolic Roe312 Creat 0.7 mg/dL 12/19/2015 Comp Metabolic Uwc284 eGFR 88 ml/min/1.73m2 12/19/2015 Comp Metabolic Mns618 BUN 12 mg/dL 12/19/2015 Comp Metabolic Bar694 B/C Ratio 17.4 Ratio 12/19/2015 Comp Metabolic Jka749 CALCIUM 9.0 mg/dL 12/19/2015 Comp Metabolic Izz601 ALK PHOS 68 U/L 12/19/2015 Comp Metabolic Jfo804 AST(SGOT) 16 U/L 12/19/2015 Comp Metabolic Mvg538 ALT(SGPT) 13 U/L 12/19/2015 Comp Metabolic Tgc771 BILI T 0.7 mg/dL 12/19/2015 Comp Metabolic Bpe618 ALBUMIN 4.0 g/dL 12/19/2015 Comp Metabolic Sis050 TPRO 7.0 g/dL 12/19/2015 Comp Metabolic Zoz544 GLOB 3.0 g/dL 12/19/2015 Comp Metabolic Cun506 A/G Ratio 1.3 Ratio 12/19/2015 Comp Metabolic Mmf656 Osmo 269 mOsmo 12/19/2015 Review of Systems System Result Effective Dates Constitutional No recent illness 12/30/2018 Constitutional No [...] clear 12/30/2018 None Full Exam - General 1995 Eyes conjunctiva/eyelids Overall: eyelids normal 12/30/2018 None [...] 4: G0439 12/30/2018 THER/PROPH/DIAG INJ SC/IM CPT-4: 81944 12/22/2018 VITAMIN B12 INJECTION CPT- 4: J3420 12/22/2018 THER/PROPH/DIAG INJ SC/IM CPT-4: 82950 10/01/2018 VITAMIN B12 INJECTION CPT- 4: J3420 10/01/2018 THER/PROPH/DIAG INJ SC/IM CPT-4: 07111 09/15/2018 VITAMIN B12 INJECTION CPT- 4: J3420 09/15/2018 TRIAMCINOLONE ACET INJ NOS CPT-4: J3301 09/15/2018 THER/PROPH/DIAG INJ SC/IM CPT-4: 85455 08/04/2018 VITAMIN B12 INJECTION CPT- 4: J3420 08/04/2018 THER/PROPH/DIAG INJ SC/IM CPT-4: 35462 07/16/2018 VITAMIN B12 INJECTION CPT- 4: J3420 07/16/2018 THER/PROPH/DIAG INJ SC/IM CPT-4: 84150 07/01/2018 VITAMIN B12 INJECTION CPT- 4: J3420 07/01/2018 ADMIN INFLUENZA VIRUS VAC CPT-4: G0008 06/25/2018 FLU VACC PRSV FREE INC ANTIG Formatting Model/CDA Sections, Assigned to/Miranda Ayala CPT-4: 81046Kvakalm 06/25/2018 THER/PROPH/DIAG INJ SC/IM CPT-4: 43415 06/15/2018 VITAMIN B12 INJECTION CPT- 4: J3420 06/15/2018 THER/PROPH/DIAG INJ SC/IM CPT-4: 34771 06/02/2018 VITAMIN B12 INJECTION CPT- 4: J3420 06/02/2018 THER/PROPH/DIAG INJ SC/IM CPT-4: 58650 05/21/2018 VITAMIN B12 INJECTION CPT- 4: J3420 05/21/2018 TRIAMCINOLONE ACET INJ NOS CPT-4: J3301 04/09/2018 PPPS, SUBSEQ VISIT CPT- 4: G0439 12/18/2017 TRIAMCINOLONE ACET INJ NOS CPT-4: J3301 10/16/2017 DRAIN/INJECT JOINT/BURSA CPT-4: 50864 10/16/2017 PRESCRIP TRANSMIT VIA ERX SY CPT-4: G8553 05/05/2017 PRESCRIP TRANSMIT VIA ERX SY CPT-4: G8553 01/14/2017 PPPS, SUBSEQ VISIT CPT- 4: G0439 12/12/2016 PRESCRIP TRANSMIT VIA ERX SY CPT-4: G8553 10/15/2016 ADMIN PNEUMOCOCCAL VACCINE SNOMED CT: [id number] CPT-4: G0009 08/28/2016 Pneumococcal Polysaccharide Vaccine, 23-Valent, Ad CPT-4: 01192 08/28/2016 PRESCRIP TRANSMIT VIA ERX SY CPT-4: G8553 03/14/2016 PRESCRIP TRANSMIT VIA ERX SY CPT-4: G8553 12/19/2015 THER/PROPH/DIAG INJ SC/IM CPT-4: 52211 02/07/2015 TRIAMCINOLONE ACET INJ NOS CPT-4: J3301 02/07/2015 Vital Signs Date Vital 12/30/2018 Blood Pressure 1: 112/68 Code: 8480-6 BMI: 24.0 Code: 74929-2 Heart Rate 1: 66 bpm Height: 5'1" SpO2: 96% Weight: 127 lbs 12/22/2018 Blood Pressure 1: 110/72 Code: 8480-6 BMI: 24.0 Code: 55982-0 Heart Rate 1: 64 bpm Height: 5'1" SpO2: 95% Weight: 127 lbs 09/15/2018 Blood Pressure 1: 106/70 Code: 8480-6 BMI: 24.9 Code: 01756-9 Heart Rate 1: 74 bpm Height: 5'1" SpO2: 95% Weight: 132 lbs 08/18/2018 Blood Pressure 1: 128/70 Code: 8480-6 BMI: 25.1 Code: 11555-2 Heart Rate 1: 74 bpm Height: 5'1" SpO2: 95% Weight: 133 lbs 08/04/2018 Blood Pressure 1: 120/80 Code: 8480-6 Blood Pressure 1: 122/80 Code: 8480-6 Blood Pressure 2: 120/82 Code: 8480-6 BMI: 25.5 Code: 22473-1 Heart Rate 1: 63 bpm Heart Rate 1: 67 bpm Height: 5'1" Weight: 135 lbs Weight: 07/22/2018 Blood Pressure 1: 120/82 Code: 8480-6 BMI: 24.9 Code: 79505-2 Heart Rate 1: 64 bpm Height: 5'1" SpO2: 95% Weight: 132 lbs 04/21/2018 Blood Pressure 1: 108/70 Code: 8480-6 BMI: 24.4 Code: 19843-5 Heart Rate 1: 62 bpm Height: 5'1" SpO2: 94% Weight: 129 lbs 04/09/2018 Blood Pressure 1: 138/86 Code: 8480-6 BMI: 25.5 Code: 54477-3 Heart Rate 1: 64 bpm Height: 5'1" SpO2: 99% Temperature: 36.4 (C) / 97.5 (F) Weight: 135 lbs 01/19/2018 Blood Pressure 1: 128/76 Code: 8480-6 BMI: 25.9 Code: 45614-4 Heart Rate 1: 65 bpm Height: 5'1" SpO2: 98% Weight: 137 lbs 12/18/2017 Blood Pressure 1: 144/82 Code: 8480-6 BMI: 26.1 Code: 89461-2 Heart Rate 1: 57 bpm Height: 5'1" SpO2: 97% Waist Measure (cm): 74 cm Weight: 138 lbs 10/16/2017 Blood Pressure 1: 142/88 Code: 8480-6 BMI: 25.5 Code: 54022-7 Heart Rate 1: 63 bpm Height: 5'1" SpO2: 97% Weight: 135 lbs 09/03/2017 Blood Pressure 1: 144/90 Code: 8480-6 BMI: 26.3 Code: 04274-7 Heart Rate 1: 91 bpm Height: 5'1" SpO2: 96% Weight: 139 lbs 07/31/2017 Blood Pressure 1: 136/90 Code: 8480-6 BMI: 26.3 Code: 23041-6 Height: 5'1" Weight: 139 lbs 07/18/2017 Blood Pressure 1: 136/84 Code: 8480-6 06/16/2017 Blood Pressure 1: 136/84 Code: 8480-6 BMI: 26.5 Code: 95634-2 Heart Rate 1: 72 bpm Height: 5'1" SpO2: 97% Weight: 140 lbs 05/28/2017 Blood Pressure 1: 138/78 Code: 8480-6 BMI: 26.1 Code: 34763-7 Heart Rate 1: 70 bpm Height: 5'1" SpO2: 98% Weight: 138 lbs 05/05/2017 Blood Pressure 1: 140/86 Code: 8480-6 BMI: 25.3 Code: 42785-0 Heart Rate 1: 66 bpm Height: 5'1" SpO2: 99% Weight: 134 lbs 03/13/2017 Blood Pressure 1: 126/74 Code: 8480-6 BMI: 25.3 Code: 55035-0 Heart Rate 1: 73 bpm Height: 5'1" SpO2: 98% Weight: 134 lbs 02/10/2017 Blood Pressure 1: 148/88 Code: 8480-6 BMI: 25.9 Code: 60863-5 Heart Rate 1: 84 bpm Height: 5'1" SpO2: 97% Weight: 137 lbs 01/14/2017 Blood Pressure 1: 134/86 Code: 8480-6 BMI: 25.7 Code: 28448-8 Heart Rate 1: 83 bpm Height: 5'1" SpO2: 95% Weight: 136 lbs 01/07/2017 Blood Pressure 1: 136/88 Code: 8480-6 BMI: 25.1 Code: 81226-5 Heart Rate 1: 86 bpm Height: 5'1" SpO2: 94% Weight: 133 lbs 01/02/2017 Blood Pressure 1: 122/68 Code: 8480-6 Blood Pressure 2: 116/78 Code: 8480-6 01/01/2017 Blood Pressure 1: 90/52 Code: 8480-6 BMI: 25.1 Code: 67284- 5 Heart Rate 1: 86 bpm Height: 5'1" SpO2: 99% Weight: 133 lbs 12/20/2016 Blood Pressure 1: 120/76 Code: 8480-6 12/12/2016 Blood Pressure 1: 130/72 Code: 8480-6 BMI: 24.8 Code: 41293-6 Heart Rate 1: 62 bpm Height: 5'1" SpO2: 98% Waist Measure (cm): 79 cm Weight: 131 lbs 12/11/2016 Blood Pressure 1: 132/70 Code: 8480-6 BMI: 24.8 Code: 26005-1 Heart Rate 1: 60 bpm Height: 5'1" Weight: 131 lbs 10/15/2016 Blood Pressure 1: 108/66 Code: 8480-6 BMI: 24.8 Code: 08150-9 Heart Rate 1: 60 bpm Height: 5'1" Weight: 131 lbs 07/17/2016 Blood Pressure 1: 128/82 Code: 8480-6 BMI: 25.3 Code: 34433-6 Heart Rate 1: 50 bpm Height: 5'2" Weight: 136 lbs 05/15/2016 Blood Pressure 1: 108/70 Code: 8480-6 BMI: 23.4 Code: 52468-5 Heart Rate 1: 54 bpm Height: 5'2" SpO2: 96% Weight: 126 lbs 04/23/2016 Blood Pressure 1: 112/60 Code: 8480-6 BMI: 23.6 Code: 12106-2 Heart Rate 1: 92 bpm Height: 5'2" SpO2: 95% Weight: 127 lbs 03/14/2016 Blood Pressure 1: 118/74 Code: 8480-6 BMI: 24.0 Code: 65011-1 Heart Rate 1: 51 bpm Height: 5'2" SpO2: 94% Temperature: 36.8 (C) / 98.3 (F) Weight: 129 lbs 02/19/2016 Blood Pressure 1: 110/62 Code: 8480-6 BMI: 23.4 Code: 42590-7 Heart Rate 1: 74 bpm Height: 5'2" SpO2: 97% Weight: 126 lbs 12/19/2015 Blood Pressure 1: 108/74 Code: 8480-6 BMI: 23.6 Code: 56640-9 Heart Rate 1: 52 bpm Height: 5'2" Weight: 127 lbs 03/06/2015 Blood Pressure 1: 136/88 Code: 8480-6 Heart Rate 1: 64 bpm Weight: 129 lbs 02/07/2015 Blood Pressure 1: 142/90 Code: 8480-6 BMI: 24.5 Code: 52521-3 Heart Rate 1: 82 bpm Height: 5'2" Weight: 132 lbs Functional Status No Functional Status data History of Present Illness Symptom Name Status Result Effective Date Notes Alcohol Use does not drink any alcohol [...] data Encounters Encounter Performer Location Codes Date ([id number]) 16054 EST. PATIENT, LEVEL IV Diagnosis: Other vitamin B12 deficiency anemias[ICD10: D51.8] Kim Burden MD, [facility] CPT-4: 97676 12/22/2018 ([id number]) 52214 EST. PATIENT, LEVEL IV Diagnosis: Chest pain, unspecified[ICD10: R07.9] Diagnosis: Other vitamin B12 deficiency anemias[ICD10: D51.8] Diagnosis: Other allergic rhinitis[ICD10: J30.89] Mallorie Burden MD, [facility] CPT-4: 67155 09/15/2018 ([id number]) 77405 EST. PATIENT, LEVEL III Diagnosis: Essential (primary) hypertension[ICD10: I10] Diagnosis: Fecal urgency[ICD10: R15.2] Kim Burden MD, [facility] CPT-4: 33285 08/18/2018 ([id number]) 13119 EST. PATIENT, LEVEL IV Diagnosis: Other vitamin B12 deficiency anemias[ICD10: D51.8] Diagnosis: Essential (primary) hypertension[ICD10: I10] Diagnosis: Major depressive disorder, recurrent, mild[ICD10: F33.0] Diagnosis: Unsteadiness on feet[ICD10: R26.81] Kim Burden MD, [facility] CPT- 4: 06790 08/04/[id number]) 55273 EST. PATIENT, LEVEL IV Diagnosis: Fecal urgency[ICD10: R15.2] Diagnosis: Generalized abdominal pain[ICD10: R10.84] Diagnosis: Essential (primary) hypertension[ICD10: I10] Kim Burden MD, [facility] CPT-4: 68524 07/22/2018 [id number]) 88130 EST. PATIENT, LEVEL IV Diagnosis: Essential (primary) hypertension[ICD10: I10] Diagnosis: Other emphysema[ICD10: J43.8] Diagnosis: Candidal stomatitis[ICD10: B37.0] [facility] CPT- 4: 90981 04/21/[id number]) 96799 EST. PATIENT, LEVEL III Diagnosis: Chronic obstructive pulmonary disease with (acute) exacerbation[ICD10: J44.1] Mallorie Burden MD, [facility] CPT-4: 99739 04/09/2018 ([id number]) 37130 EST. PATIENT, LEVEL IV Diagnosis: Essential (primary) hypertension[ICD10: I10] Diagnosis: Other emphysema[ICD10: J43.8] Kim Burden MD, [facility] CPT-4: 00602 01/19/2018 ([id number]) 73660 EST. PATIENT, LEVEL IV Diagnosis: Essential (primary) hypertension[ICD10: I10] Diagnosis: Other emphysema[ICD10: J43.8] Diagnosis: Dependence on supplemental oxygen[ICD10: Z99.81] Diagnosis: Hypoxemia[ICD10: R09.02] Diagnosis: Pain in left knee[ICD10: M25.562] Diagnosis: Effusion, left knee[ICD10: M25.462] Kim Burden MD, [facility] CPT- 4: 39554 10/16/2017 [id number] EST. PATIENT, LEVEL III Diagnosis: Pain in thoracic spine[ICD10: M54.6] Pebbles Burden MD, [facility] CPT- 4: 36280 09/03/2017 ([id number]) 17844 EST. PATIENT, LEVEL III Diagnosis: Essential (primary) hypertension[ICD10: I10] Diagnosis: Other emphysema[ICD10: J43.8] Kim Burden MD, [facility] CPT-4: 32502 07/31/2017 ([id number]) Miscellaneous no charge Diagnosis: Essential (primary) hypertension[ICD10: I10] Mallorie Burden MD, [facility] CPT-4: 74845 07/18/2017 ([id number]) 22460 EST. PATIENT, LEVEL III Diagnosis: Pain in left knee[ICD10: M25.562] Diagnosis: Effusion, left knee[ICD10: M25.462] Mallorie Burden MD, [facility] CPT-4: 00014 06/16/2017 ([id number]) 07614 EST. PATIENT, LEVEL III Diagnosis: Essential (primary) hypertension[ICD10: I10] Diagnosis: Unsteadiness on feet[ICD10: R26.81] Kim Burden MD [facility] CPT- 4: 90088 05/28/2017 ([id number]) 32482 EST. PATIENT, LEVEL IV Diagnosis: Essential (primary) hypertension[ICD10: I10] Diagnosis: Chronic obstructive pulmonary disease with acute lower respiratory infection[ICD10: J44.0] Kim Burden MD [facility] CPT-4: 70113 05/05/2017 ([id number]) 98549 EST. PATIENT, LEVEL IV Diagnosis: Essential (primary) hypertension[ICD10: I10] Diagnosis: Major depressive disorder, recurrent, mild[ICD10: F33.0] Kim Burden MD [facility] CPT-4: 72928 03/13/2017 ([id number]) 45538 EST. PATIENT, LEVEL IV Diagnosis: Essential (primary) hypertension[ICD10: I10] Diagnosis: Gastro-esophageal reflux disease without esophagitis[ICD10: K21.9] Diagnosis: Chronic obstructive pulmonary disease, unspecified[ICD10: J44.9] Kim Burden MD [facility] CPT-4: 57898 02/10/2017 ([id number]) 10171 EST. PATIENT, LEVEL IV Diagnosis: Essential (primary) hypertension[ICD10: I10] Diagnosis: Gastro-esophageal reflux disease without esophagitis[ICD10: K21.9] Diagnosis: Chronic obstructive pulmonary disease with acute lower respiratory infection[ICD10: J44.0] Kim Burden MD [facility] CPT-4: 52780 01/14/2017 48472 EST. PATIENT, LEVEL IV Diagnosis: Other fatigue[ICD10: R53.83] Diagnosis: Other malaise[ICD10: R53.81] Diagnosis: Headache[ICD10: R51] Diagnosis: Palpitations[ICD10: R00.2] Diagnosis: Dehydration[ICD10: E86.0] Pebbles Burden MD, [facility] CPT-4: 77038 01/07/2017 ([id number]) Miscellaneous no charge Diagnosis: Essential (primary) hypertension[ICD10: I10] Pebbles Burden MD, [facility] CPT-4: 12925 01/02/2017 87459 EST. PATIENT, LEVEL IV Diagnosis: Chronic obstructive pulmonary disease, unspecified[ICD10: J44.9] Diagnosis: Essential (primary) hypertension[ICD10: I10] Diagnosis: Other fatigue[ICD10: R53.83] Pebbles Burden MD, [facility] CPT-4: 69378 01/01/2017 ([id number]) Miscellaneous no charge Diagnosis: Essential (primary) hypertension[ICD10: I10] Pebbles Burden MD [facility] CPT-4: 75587 12/20/2016 ([id number]) 04994 EST. PATIENT, LEVEL IV Diagnosis: Essential (primary) hypertension[ICD10: I10] Diagnosis: Major depressive disorder, recurrent, mild[ICD10: F33.0] Diagnosis: Headache[ICD10: R51] Diagnosis: Other fatigue[ICD10: R53.83] Kim Burden MD [facility] CPT-4: 47116 12/11/2016 ([id number]) 56957 EST. PATIENT, LEVEL IV Diagnosis: Essential (primary) hypertension[ICD10: I10] Diagnosis: Other allergic rhinitis[ICD10: J30.89] Diagnosis: Gastro-esophageal reflux disease without esophagitis[ICD10: K21.9] Kim Burden MD, [facility] CPT-4: 81617 10/15/2016 ([id number]) 75262 EST. PATIENT, LEVEL III Diagnosis: Essential (primary) hypertension[ICD10: I10] Diagnosis: Major depressive disorder, recurrent, mild[ICD10: F33.0] Kim Burden MD [facility] CPT-4: 15695 07/17/2016 ([id number]) 83063 EST. PATIENT, LEVEL III Diagnosis: Pain in left hip[ICD10: M25.552] Diagnosis: Acute laryngopharyngitis[ICD10: J06.0] Kim Burden MD, [facility] CPT-4: 00040 05/15/2016 ([id number]) 86970 EST. PATIENT, LEVEL III Diagnosis: Fracture of unspecified parts of lumbosacral spine and pelvis, initial encounter for closed fracture[ICD10: S32.9XXA] Diagnosis: Essential (primary) hypertension[ICD10: I10] Kim Burden MD, [facility] CPT-4: 76001 04/23/2016 55004 EST. PATIENT, LEVEL IV Diagnosis: Acute laryngopharyngitis[ICD10: J06.0] Diagnosis: Other allergic rhinitis[ICD10: J30.89] Pebbles Burden MD, [facility] CPT- 4: 69284 03/14/2016 92274 EST. PATIENT, LEVEL IV Diagnosis: Dysuria[ICD10: R30.0] Diagnosis: Left lower quadrant pain[ICD10: R10.32] Pebbles Burden MD, [facility] CPT-4: 64052 02/19/2016 ([id number]) 90337 EST. PATIENT, LEVEL IV Diagnosis: Essential (primary) hypertension[ICD10: I10] Diagnosis: Gastro-esophageal reflux disease without esophagitis[ICD10: K21.9] Diagnosis: Major depressive disorder, recurrent, mild[ICD10: F33.0] Kim Burden MD, [facility] CPT-4: 79228 12/19/2015 ([id number]) 09812 EST. PATIENT, LEVEL IV Diagnosis: ESSENTIAL HYPERTENSION[ICD9: 401.9] Diagnosis: ACUTE URI[ICD9: 465.9] Kim Burden MD, [facility] CPT-4: 28025 03/06/2015 ([id number]) OFFICE VISIT, NEW - LEVEL 4 Diagnosis: ESOPHAGEAL REFLUX[ICD9: 530.81] Diagnosis: ESSENTIAL HYPERTENSION[ICD9: 401.9] Diagnosis: COPD (chronic obstructive pulmonary disease)[ICD9: 496] Diagnosis: ALLERGIC RHINITIS[ICD9: 477.9] Mallorie Burden MD, [facility] CPT-4: 83919 02/07/2015 Plan of Care Planned Activity Notes Codes Status Date Visit Plan: Medicare Exam - today we [...] Summary Completed 12/30/2018 Appointment: Mallorie Wetzel WPtel: [phone] [phone] [facility] - Annual Wellness Visit 12/28/2018 Visit Plan: [...] injection. 12/22/2018 Appointment: Kim Burden WPtel: [phone] [facility] (15 min) Moderate 12/22/2018 Patient Education: [...] office 09/15/2018 Appointment: Mallorie Wetzel WPtel: [phone] [phone] (30 min) Complex 09/15/2018 Patient Education: Patient Medication Summary Completed 09/15/2018 Care Plan: Referral Order SNOMED-CT : [id number] Pending 09/15/2018 Appointment: [place] [phone] (15 min) Moderate 08/25/2018 Visit Plan: Hypertension [...] a day. 08/18/2018 Appointment: Kim Burden [facility]el[phone] (15 min) Moderate 08/18/2018 Patient Education: Patient [...] of anxiolytic. 08/04/2018 Appointment: Kim Burden WPtel: [phone] (15 min) Moderate 08/04/2018 Appointment: Nurse Visit [...] home. 07/22/2018 Appointment: Kim Burden WPtel: [phone] [facility] [place] (15 min) Moderate 07/22/2018 Patient Education: [...] swallow. 04/21/2018 Appointment: Kim Burden WPtel: [phone] [facility] (15 min) Moderate 04/21/2018 Patient Education: Patient [...] changes. 04/09/2018 Appointment: [phone] [place] (30 min) Complex 04/09/2018 Patient Education: [...] acute changes. 01/19/2018 Appointment: Kim Burden WPtel: [phone] [facility] (15 min) Moderate 01/19/2018 Patient Education: Patient Medication Summary Completed 01/19/2018 Appointment: Kim Burden WPtel: [phone] [facility] (15 min) Moderate 01/14/2018 Visit Plan: Medicare [...] surrogate. 12/18/2017 Appointment: Pebbles Lund [facility]Ptel[phone] [facility] - Annual Wellness Visit 12/18/2017 Patient Education: [...] at home. 10/16/2017 Appointment: Kim Burden WPtel: [facility]5 [facility] (15 min) Moderate 10/16/2017 Patient Education: [...] or concerns. 09/03/2017 Appointment: Pebbles Lund WPtel: [facility] (15 min) Moderate 09/03/2017 Patient Education: Patient Medication Summary Completed 09/03/2017 Appointment: Kim Burden WPtel: [facility] (15 min) Moderate 08/11/2017 Appointment: Kim Burden WPtel: [facility] (15 min) Moderate 08/11/2017 Patient Education: Patient [...] treatment. 07/31/2017 Appointment: Kim Burden WPtel: [phone] [facility] (15 min) Moderate 07/31/2017 Patient Education: Patient Medication Summary Completed 07/31/2017 Appointment: Nurse Visit 07/18/2017 Patient Education: Patient Medication Summary Completed 07/18/2017 Patient Education: Patient Medication Summary Completed 07/18/2017 Appointment: Kim Burden WPtel: [phone] [facility] (15 min) Moderate 06/30/2017 Visit Plan: Effusion left knee-fall 2 weeks ago-recommend compression of joint and refer to Ortho for evaluation and treatment-will refer to Dr Pryor/Quinton Mccormick. Patient verbalized understanding of plan. 06/16/2017 Appointment: Mallorie Wetzel WPtel: [phone] [phone] [place] (30 min) Complex 06/16/2017 Patient Education: [...] when active. 05/28/2017 Appointment: Kim Burden WPtel: [phone] [facility] (15 min) Moderate 05/28/2017 Patient Education: Patient [...] monitor for acute changes. 05/05/2017 Appointment: Kim Burdentel: [phone] [facility] (15 min) Moderate 05/05/2017 Patient Education: Patient [...] current medications. 03/13/2017 Appointment: Kim Burden WPtel: [phone] [facility] (15 min) Moderate 03/13/2017 Patient Education: [...] worsening. 02/10/2017 Appointment: Kim Burden WPtel: [phone] [facility] (15 min) Moderate 02/10/2017 Patient Education: Patient [...] improving. 01/14/2017 Appointment: Kim Burden WPtel: [phone] [facility] (15 min) Moderate 01/14/2017 Patient Education: Patient Medication Summary Completed 01/14/2017 Visit Plan: Dehydration, palpitations, malaise, headache - will send for outpatient fluids, will check labs, ekg. Pt is to restart her spironolactone, continue to monitor blood pressures and heart rates and notify clinic if symptoms do not improve, if they worsen, or with any questions or concerns. 01/07/2017 Appointment: Pebbles Lund WPtel: [phone] (30 min) Complex 01/07/2017 Patient Education: Patient [...] pressures. 01/01/2017 Appointment: Pebbles Lund WPtel: [phone] (30 min) Complex 01/01/2017 Patient Education: Patient [...] surrogate. 12/12/2016 Appointment: Pebbles Lund WPtel: [phone] [facility] - Annual Wellness Visit 12/12/2016 Patient Education: [...] this time. 12/11/2016 Appointment: Kim Burden WPtel: [facility] (15 min) Moderate 12/11/2016 Patient Education: Patient Medication Summary Completed 12/11/2016 Appointment: Mallorie Wetzel WPtel: [phone] (30 min) Complex 12/10/2016 Visit Plan: Hypertension [...] not improving. 10/15/2016 Appointment: Kim Burden WPtel: [facility] (15 min) Moderate 10/15/2016 Patient Education: Patient [...] restaurant. 07/17/2016 Appointment: Kim Burden WPtel: [phone] [facility] (15 min) Moderate 07/17/2016 Patient Education: Patient Medication Summary Completed 07/17/2016 Appointment: Kim Burden WPtel: [facility]6 [facility] (15 min) Moderate 06/10/2016 Visit Plan: Hip pain - persistent but improving - continue with current treatment plan. Pt to call if her symptoms are not improving or if her hip pain worsens. URI symptoms - supportive care, use otc allergy medications. 05/15/2016 Appointment: Kim Burden WPtel: [facility] (15 min) Moderate 05/15/2016 Patient Education: [...] call if not improving. 04/23/2016 Appointment: Kim Budren WPtel: [phone] [facility] [place] (15 min) Moderate 04/23/2016 Patient Education: Patient Medication Summary Completed 04/23/2016 Patient Education: Hypertension Completed 04/23/2016 Care Plan: X-RAY EXAM OF ABDOMEN LOINC : 34355-2 Pending 03/18/2016 Visit Plan: URI - Pt [...] spray. 03/14/2016 Appointment: Pebbles Lund WPtel: [phone] [facility] (30 min) Complex 03/14/2016 Patient Education: Patient Medication Summary Completed 03/14/2016 Patient Education: Patient Medication Summary Completed 02/29/2016 Visit Plan: Flank pain - pt is currently being treated for UTI, but is having continued left flank pain - will get KUB - pt is to notify clinic if symptoms do not improve, or with any concerns. 02/19/2016 Appointment: Pebbles Lund WPtel: [phone] [facility] (30 min) Complex 02/19/2016 Patient Education: Patient Medication Summary Completed 02/19/2016 Appointment: Kim Burden WPtel: [phone] [facility] (15 min) Moderate 01/22/2016 Visit Plan: [...] improving. 12/19/2015 Appointment: Kim Burden WPtel: [phone] [facility] (15 min) Moderate 12/19/2015 Patient Education: Patient [...] RX. 03/06/2015 Appointment: Kim Burden WPtel: [phone] [facility] Follow up 03/06/2015 Patient Education: Patient Medication [...] Completed 02/07/2015 Care Plan: SCREENINGMAMMOGRAPHYDIGITAL LOINC : 07490-5 Ordered 02/07/2015 Care Plan: COMPLETE CBC AUTOMATED LOINC : 64635-3 Ordered 02/07/2015 Referral: Consuelo Chavez Referral Appointment Requested Instructions Comment . Thoracic back pain - x-ray showed compression fracture of lower thoracic vertebrae - pt still having significant pain - will order MRI and schedule pt for kyphoplasty - pt is to notify clinic if symptoms do not improve, if they worsen, or with any acute changes, questions, or concerns. . COPD - chronic problem for [...] attempt to alleviate the low blood pressures. 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 . Hypertension - well controlled - continue [...] - supportive care, use otc allergy medications. continue with the questran - just [...] current medications. TAKE WITH FOOD AND PROBIOTIC (Asantae OR [employer]) . URI - Pt advised to increase [...] help decrease GI upset./loose stools - [place] or [employer] [facility] . Hypertension - well controlled - [...] if the symptoms are not improving. . Dehydration, palpitations, malaise, headache - will [...] increase to 1/2 packet twice a day. restart the metoprolol 50mg pill and take [...] her [employer]OP[employer] paperwork for health care surrogate. kenalog . Chest pain- refer to Dr [...] with antidepressant - decrease dose of anxiolytic. Restart breo kenalog injection today -start oral [...]
--- OUTSIDE RECORDS SUMMARY | 2019-04-06 08:38 | XMS REPORT | CCD ---
Author Author Mallorie Wetzel MD, [facility] Address [address] [place] [address] Phone Care Team Providers Care Database Administration Manager Name Role Phone PP Unavailable CCM Unavailable Summary Purpose Interface Exchange Insurance Providers Payer name Policy type / Coverage type Covered alliance party ID Effective Begin Date Effective End Date WPS Medicare Part B Medicare Part B [id number] 2018 Unknown AETNA Medicare Part B [id number] Unknown Family history Brother Diagnosis Age At [...] Unknown 3 02/07/[address]: 1851042 Quit over 10 years ago 199302/07/2015 Number [...] Start Date Stop Date Status Fill Instructions Lexapro 20 mg tablet RxNorm: 887859 Tablet(s) PO TAKE 1 TABLET EVERY DAY 01/07/2019 01/01/2020 Active Lexapro 20 mg tablet RxNorm: 969829 Tablet(s) PO TAKE 1 TABLET EVERY DAY 01/07/2019 01/06/2019 Inactive Lexapro 20 mg tablet RxNorm: 566990 Tablet(s) PO TAKE 1 TABLET EVERY DAY 01/07/2019 01/06/2019 Inactive mupirocin 2 % topical ointment RxNorm: 065286 1 Application TOP BID 12/30/2018 No Stop Date Active cyanocobalamin (vit B-12) 1,000 mcg/mL injection solution RxNorm: 014218 Milliliter(s) Inj 12/22/2018 12/22/2018 Inactive metoprolol tartrate 50 mg tablet RxNorm: 115651 1/2 Tablet(s) PO BID 11/06/2018 10/31/2019 Active alprazolam 1 mg tablet RxNorm: 972837 1/2 Tablet(s) PO TID 11/06/2018 08/02/2019 Active ibuprofen 800 mg tablet RxNorm: 904091 Tablet(s) TAKE 1 TABLET THREE TIMES DAILY 11/06/2018 10/31/2019 Active losartan 100 mg tablet RxNorm: 172823 Tablet(s) TAKE 1 TABLET EVERY EVENING 11/06/2018 10/31/2019 Active Lexapro 10 mg tablet RxNorm: 066889 Tablet(s) TAKE 1 TABLET EVERY DAY 11/06/2018 01/06/2019 Inactive cyanocobalamin (vit B-12) 1,000 mcg/mL injection solution RxNorm: 855371 1 Milliliter(s) Inj 10/01/2018 10/01/2018 Inactive ibuprofen 800 mg tablet RxNorm: 825833 TAKE 1 TABLET THREE TIMES DAILY 09/28/2018 11/05/2018 Inactive cyanocobalamin (vit B-12) 1,000 mcg/mL injection solution RxNorm: 076347 1 Milliliter(s) Inj 09/15/2018 09/15/2018 Inactive Kenalog 40 mg/mL suspension for injection RxNorm: 6472612 Milliliter(s) Inj 09/15/2018 09/15/2018 Inactive alprazolam 1 mg tablet RxNorm: 373408 1/2 Tablet(s) PO TID 08/10/2018 11/05/2018 Inactive cyanocobalamin (vit B-12) 1,000 mcg/mL injection solution RxNorm: 835127 Milliliter(s) Inj 08/04/2018 08/04/2018 Inactive alprazolam 1 mg tablet RxNorm: 425323 1/2 Tablet(s) PO BID 08/04/2018 08/09/2018 Inactive cholestyramine (with sugar) 4 gram powder for susp in a packet RxNorm: 909210 1/2 to 1 packet PO TID take 30 minutes before meals 07/22/2018 12/21/2018 Inactive cyanocobalamin (vit B-12) 1,000 mcg/mL injection solution RxNorm: 118821 1 Milliliter(s) Inj 07/16/2018 07/16/2018 Inactive omeprazole 20 mg capsule,delayed release RxNorm: 519762 Capsule(s) TAKE 1 CAPSULE TWICE DAILY 07/01/2018 06/25/2019 Active cyanocobalamin (vit B-12) 1,000 mcg/mL injection solution RxNorm: 719450 Milliliter(s) Inj 07/01/2018 07/01/2018 Inactive omeprazole 20 mg capsule,delayed release RxNorm: 787295 TAKE 1 CAPSULE TWICE DAILY 07/01/2018 06/30/2018 Inactive alprazolam 1 mg tablet RxNorm: 974737 1 Tablet(s) PO TID 07/01/2018 08/03/2018 Inactive cyanocobalamin (vit B-12) 1,000 mcg/mL injection solution RxNorm: 302113 Milliliter(s) Inj 06/15/2018 06/15/2018 Inactive cyanocobalamin (vit B-12) 1,000 mcg/mL injection solution RxNorm: 718394 Milliliter(s) Inj 06/02/2018 06/02/2018 Inactive fluticasone 50 mcg/actuation nasal spray,suspension RxNorm: 0743367 1 [place] NASAL BID 05/26/2018 05/20/2019 Active Vitamin B-12 1,000 mcg/mL injection solution RxNorm: 293035 1 Milliliter(s) Inj Q2 weeks x2 months and then monthly injections 05/21/2018 No Stop Date Active cyanocobalamin (vit B-12) 1,000 mcg/mL injection solution RxNorm: 436860 Milliliter(s) Inj 05/21/2018 05/21/2018 Inactive fluticasone 50 mcg/actuation nasal spray,suspension RxNorm: 8493432 1 [place] NASAL BID 05/19/2018 05/25/2018 Inactive fluticasone 50 mcg/actuation nasal spray,suspension RxNorm: 8433546 1 [place] NASAL BID 05/18/2018 05/18/2018 Inactive fluticasone 50 mcg/actuation nasal spray,suspension RxNorm: 0162874 1 [place] NASAL BID 05/15/2018 05/17/2018 Inactive fluticasone 50 mcg/actuation nasal spray,suspension RxNorm: 7009409 1 [place] NASAL BID 05/15/2018 05/14/2018 Inactive nystatin 100,000 unit/mL oral suspension RxNorm: 921961 5 Milliliter(s) PO QID 04/21/2018 04/30/2018 Inactive Breo Ellipta 100 mcg-25 mcg/dose powder for inhalation RxNorm: 0112836 1 INH daily 04/09/2018 04/03/2019 Active please call patient with jaramillo before sending prednisone 20 mg tablet RxNorm: 582723 1 Tablet(s) PO BID 04/09/2018 04/13/2018 Inactive start tomorrow Kenalog 40 mg/mL suspension for injection RxNorm: 3873521 1.5 Milliliter(s) Inj 04/09/2018 04/09/2018 Inactive Breo Ellipta 100 mcg-25 mcg/dose powder for inhalation RxNorm: 6142483 1 INH daily 04/09/2018 04/08/2018 Inactive alprazolam 1 mg tablet RxNorm: 774744 1 Tablet(s) PO TID 03/13/2018 06/30/2018 Inactive losartan 100 mg tablet RxNorm: 126424 TAKE 1 TABLET EVERY EVENING 03/02/2018 11/05/2018 Inactive Ventolin HFA 90 mcg/actuation aerosol inhaler RxNorm: 479151 2 INH Q4-6H as needed 12/29/2017 02/26/2018 Inactive Ventolin HFA 90 mcg/actuation aerosol inhaler RxNorm: 829902 2 INH Q4-6H as needed 12/29/2017 12/28/2017 Inactive Diflucan 150 mg tablet RxNorm: 162999 1 Tablet(s) PO daily 11/03/2017 11/05/2017 Inactive please call pt to let herknow when to pick- up the med Keflex 500 mg capsule RxNorm: 572287 1 Capsule(s) PO TID 10/23/2017 10/29/2017 Inactive Kenalog 40 mg/mL suspension for injection RxNorm: 5215805 1 Milliliter(s) Inj 10/16/2017 10/16/2017 Inactive ibuprofen 800 mg tablet RxNorm: 583642 TAKE 1 TABLET THREE TIMES DAILY 10/15/2017 09/27/2018 Inactive Lexapro 10 mg tablet RxNorm: 993693 TAKE 1 TABLET EVERY DAY 10/15/2017 10/09/2018 Inactive hydrocodone 5 mg-acetaminophen 325 mg tablet RxNorm: 088717 1 Tablet(s) PO QID as needed 09/03/2017 07/21/2018 Inactive omeprazole 20 mg capsule,delayed release RxNorm: 691135 1 Capsule(s) PO BID 09/02/2017 06/30/2018 Inactive alprazolam 1 mg tablet RxNorm: 754866 1 Tablet(s) PO TID 09/02/2017 03/12/2018 Inactive metoprolol tartrate 50 mg tablet RxNorm: 611433 1/2 Tablet(s) PO BID 06/26/2017 06/20/2018 Inactive omeprazole 20 mg capsule,delayed release RxNorm: 694025 1 Capsule(s) PO BID 06/05/2017 09/01/2017 Inactive omeprazole 20 mg capsule,delayed release RxNorm: 590524 1 Capsule(s) PO BID 05/28/2017 06/04/2017 Inactive omeprazole 20 mg capsule,delayed release RxNorm: 121181 1 Capsule(s) PO QPM 05/27/2017 05/27/2017 Inactive Breo Ellipta 100 mcg-25 mcg/dose powder for inhalation RxNorm: 1347925 1 INH daily 05/05/2017 04/08/2018 Inactive alprazolam 1 mg tablet RxNorm: 564777 1 Tablet(s) PO TID 02/10/2017 08/07/2017 Inactive metoprolol tartrate 50 mg tablet RxNorm: 613158 1/2 Tablet(s) PO BID 02/10/2017 06/25/2017 Inactive losartan 100 mg tablet RxNorm: 026178 1 Tablet(s) PO QPM 02/10/2017 02/04/2018 Inactive losartan 50 mg tablet RxNorm: 696772 2 Tablet(s) PO QPM 01/23/2017 02/09/2017 Inactive Diflucan 150 mg tablet RxNorm: 795857 1 Tablet(s) PO daily 01/20/2017 01/22/2017 Inactive please call pt to let herknow when to pick- up the med Diflucan 150 mg tablet RxNorm: 915174 1 Tablet(s) PO daily 01/20/2017 01/19/2017 Inactive please call pt to let herknow when to pick- up the med losartan 50 mg tablet RxNorm: 836670 1 Tablet(s) PO QPM 01/14/2017 01/22/2017 Inactive Cipro 500 mg tablet RxNorm: 081149 1 Tablet(s) PO BID 01/08/2017 01/17/2017 Inactive Cipro 500 mg tablet RxNorm: 440303 1 Tablet(s) PO BID 01/08/2017 01/07/2017 Inactive Lexapro 10 mg tablet RxNorm: 576041 TAKE 1 TABLET EVERY DAY 12/20/2016 10/14/2017 Inactive metoprolol tartrate 50 mg tablet RxNorm: 426997 1 Tablet(s) PO in the morning and 1.5 pill at night 12/11/2016 01/13/2017 Inactive spironolactone 25 mg tablet RxNorm: 017494 TAKE 1 TABLET EVERY DAY 11/04/2016 07/21/2018 Inactive metoprolol tartrate 50 mg tablet RxNorm: 563019 TAKE 1 TABLET TWICE DAILY 10/29/2016 12/10/2016 Inactive ibuprofen 800 mg tablet RxNorm: 188917 TAKE 1 TABLET THREE TIMES DAILY 10/21/2016 10/14/2017 Inactive Astepro 0.15 % (205.5 mcg) nasal spray RxNorm: 2435819 1 [place] NASAL BID 10/15/2016 10/14/2016 Inactive Astepro 0.15 % (205.5 mcg) nasal spray RxNorm: 4329248 1 [place] NASAL BID 10/15/2016 07/21/2018 Inactive Astepro 0.15 % (205.5 mcg) nasal spray RxNorm: 2188076 1 [place] NASAL BID 10/15/2016 10/14/2016 Inactive omeprazole 20 mg capsule,delayed release RxNorm: 521515 1 Capsule(s) PO QPM 10/15/2016 05/26/2017 Inactive omeprazole 20 mg capsule,delayed release RxNorm: 439796 1 Capsule(s) QPM 10/15/2016 10/14/2016 Inactive omeprazole 20 mg capsule,delayed release RxNorm: 702676 TAKE 1 CAPSULE TWICE DAILY 09/02/2016 10/14/2016 Inactive Lexapro 10 mg tablet RxNorm: 108164 TAKE 1 TABLET EVERY DAY 08/21/2016 12/19/2016 Inactive calcitonin (salmon) 200 unit/actuation nasal spray RxNorm: 944621 1 [place] NASAL daily ONE SPRAY PER ONE NOSTRIL DAILY- ALTERNATE NOSTRILS DAILY 05/31/2016 05/30/2016 Inactive She will do this for 3 months- If she wants to do a 3 month supply at one time she can without refill calcitonin (salmon) 200 unit/actuation nasal spray RxNorm: 538943 1 [place] NASAL daily ONE SPRAY PER ONE NOSTRIL DAILY- ALTERNATE NOSTRILS DAILY 05/31/2016 07/30/2016 Inactive x3 months- no refills Forteo 20 mcg/dose (600 mcg/2.4 mL) subcutaneous pen injector RxNorm: 6521666 1 injection SQ daily 05/22/2016 05/30/2016 Inactive call pt with jaramillo first Forteo 20 mcg/dose (600 mcg/2.4 mL) subcutaneous pen injector RxNorm: 6546325 1 injection SQ daily 05/22/2016 05/21/2016 Inactive Prolia 60 mg/mL subcutaneous syringe RxNorm: 722924 1 Milliliter(s) SQ every 6 months 05/13/2016 07/21/2018 Inactive Please check jaramillo through insurance and let me know- Thanks! Mary Ellen alprazolam 1 mg tablet RxNorm: 427420 1 Tablet(s) PO TID 05/08/2016 11/01/2016 Inactive Lexapro 10 mg tablet RxNorm: 811041 TAKE 1 TABLET EVERY DAY 04/22/2016 08/20/2016 Inactive spironolactone 25 mg tablet RxNorm: 688446 TAKE 1 TABLET EVERY DAY 04/22/2016 11/03/2016 Inactive Diflucan 150 mg tablet RxNorm: 904843 1 Tablet(s) PO daily 03/20/2016 04/14/2016 Inactive Diflucan 150 mg tablet RxNorm: 330226 1 Tablet(s) PO daily 03/20/2016 03/19/2016 Inactive Augmentin 500 mg-125 mg tablet RxNorm: 226522 1 Tablet(s) PO TID 03/14/2016 03/23/2016 Inactive omeprazole 20 mg capsule,delayed release RxNorm: 328173 1 Tablet(s) PO BID 03/06/2016 09/01/2016 Inactive [SAVINGS FOR NON-COVERED DRUGS -- BIN:391150, PCN: ASPROD1, Group: XXXXX, ID# XXXXXXX, Questions: . THIS IS NOT INSURANCE.] amlodipine 5 mg tablet RxNorm: 743696 TAKE 1 TABLET EVERY DAY 03/01/2016 04/22/2016 Inactive omeprazole 20 mg tablet,delayed release RxNorm: 183038 1 Tablet(s) PO BID 02/27/2016 03/05/2016 Inactive [SAVINGS FOR NON-COVERED DRUGS -- BIN:986491, PCN: ASPROD1, Group: XXXXX, ID# XXXXXXX, Questions: . THIS IS NOT INSURANCE.] spironolactone 25 mg tablet RxNorm: 526467 TAKE 1 TABLET EVERY DAY 12/21/2015 04/21/2016 Inactive Lexapro 10 mg tablet RxNorm: 111526 1 Tablet(s) PO daily 12/19/2015 01/01/2016 Inactive Lexapro 10 mg tablet RxNorm: 832311 1 Tablet(s) PO daily 12/19/2015 02/09/2017 Inactive Lexapro 10 mg tablet RxNorm: 683309 1 Tablet(s) PO daily 12/19/2015 12/18/2015 Inactive alprazolam 1 mg tablet RxNorm: 126530 1 Tablet(s) PO TID 12/01/2015 02/28/2016 Inactive ibuprofen 800 mg tablet RxNorm: 916201 1 Tablet(s) PO TID 10/26/2015 10/20/2016 Inactive alprazolam 1 mg tablet RxNorm: 312858 1 Tablet(s) PO TID 08/23/2015 07/21/2018 Inactive spironolactone 25 mg tablet RxNorm: 806770 1 Tablet(s) PO daily 08/21/2015 12/20/2015 Inactive metoprolol tartrate 50 mg tablet RxNorm: 132669 1 Tablet(s) PO BID 08/10/2015 08/03/2016 Inactive [SAVINGS FOR NON-COVERED DRUGS -- BIN:033110, PCN: ASPROD1, Group: XXXXX, ID# XXXXXXX, Questions: . THIS IS NOT INSURANCE.] omeprazole 20 mg tablet,delayed release RxNorm: 257753 1 Tablet(s) PO BID 08/07/2015 02/02/2016 Inactive [SAVINGS FOR NON-COVERED DRUGS -- BIN:214042, PCN: ASPROD1, Group: XXXXX, ID# XXXXXXX, Questions: . THIS IS NOT INSURANCE.] Keflex 500 mg capsule RxNorm: 051603 1 Capsule(s) PO TID 07/10/2015 07/16/2015 Inactive alprazolam 1 mg tablet RxNorm: 452333 1 Tablet(s) PO TID 06/02/2015 08/22/2015 Inactive alprazolam 1 mg tablet RxNorm: 163260 1 Tablet(s) PO TID 03/29/2015 06/01/2015 Inactive amlodipine 5 mg tablet RxNorm: 058958 1 Tablet(s) PO daily 03/06/2015 02/29/2016 Inactive Nasonex 50 mcg/actuation [place] RxNorm: 391650 1 [place] NASAL daily 03/03/2015 03/02/2015 Inactive Keflex 500 mg capsule RxNorm: 785692 1 Capsule(s) PO TID 03/03/2015 03/02/2015 Inactive Nasonex 50 mcg/actuation [place] RxNorm: 378422 1 [place] NASAL daily 03/03/2015 05/01/2015 Inactive Keflex 500 mg capsule RxNorm: 527815 1 Capsule(s) PO TID 03/03/2015 03/05/2015 Inactive Carafate 1 gram tablet RxNorm: 906848 TAKE 1 TABLET FOUR TIMES DAILY 30 MINUTES BEFORE MEALS AND AT BEDTIME 02/28/2015 12/18/2015 Inactive Kenalog 40 mg/mL suspension for injection RxNorm: 9279682 Milliliter(s) Inj 02/07/2015 02/07/2015 Inactive [SAVINGS FOR NON-COVERED DRUGS -- BIN:188911, PCN: ASPROD1, Group: XXXXX, ID# XXXXXXX, Questions: . THIS IS NOT INSURANCE.] metoprolol tartrate 50 mg tablet RxNorm: 013984 1 Tablet(s) PO BID 02/07/2015 08/09/2015 Inactive [SAVINGS FOR NON-COVERED DRUGS -- BIN:782184, PCN: ASPROD1, Group: XXXXX, ID# XXXXXXX, Questions: . THIS IS NOT INSURANCE.] Carafate 1 gram tablet RxNorm: 854216 1 Tablet(s) PO QID 02/07/2015 02/27/2015 Inactive 30 min before meals and at bedtime omeprazole 20 mg tablet,delayed release RxNorm: 676378 1 Tablet(s) PO BID 02/07/2015 08/05/2015 Inactive [SAVINGS FOR NON-COVERED DRUGS -- BIN:433929, PCN: ASPROD1, Group: XXXXX, ID# XXXXXXX, Questions: . THIS IS NOT INSURANCE.] Vitamin D3 2,000 unit tablet RxNorm: 935742 1 Tablet(s) PO daily No Start Date Active aspirin 81 mg tablet RxNorm: 573887 1 Tablet(s) PO daily No Start Date Active amlodipine 2.5 mg tablet RxNorm: 888770 1 Tablet(s) PO daily No Start Date 03/05/2015 Inactive spironolactone 25 mg tablet RxNorm: 992554 1 Tablet(s) PO daily No Start Date 08/20/2015 Inactive cetirizine 10 mg tablet RxNorm: 3567530 1 Tablet(s) PO daily No Start Date 12/18/2015 Inactive metoprolol tartrate 50 mg tablet RxNorm: 809896 1 Tablet(s) PO daily No Start Date 02/06/2015 Inactive ipratropium bromide 0.06 % nasal spray RxNorm: 208667 nasal No Start Date 12/18/2015 Inactive alprazolam 1 mg tablet RxNorm: 339068 1 Tablet(s) PO TID No Start Date 03/28/2015 Inactive Prolia 60 mg/mL subcutaneous syringe RxNorm: 995624 1 Milliliter(s) SQ every 6 months No Start Date 05/12/2016 Inactive Please check jaramillo through insurance and let me know- Thanks! Mary Ellen ibuprofen 800 mg tablet RxNorm: 144617 1 Tablet(s) PO TID No Start Date 10/25/2015 Inactive Protonix 40 mg tablet,delayed release RxNorm: 930464 1 Tablet(s) PO daily No Start Date 03/05/2015 Inactive Vitamin B-12 1,000 mcg/mL injection solution RxNorm: 447458 1 Milliliter(s) Inj Q2 weeks x2 months and then monthly injections No Start Date 05/20/2018 Inactive loratadine 10 mg tablet RxNorm: 414512 1 Tablet(s) PO daily No Start Date 07/21/2018 Inactive Medication Administered Medication Codes Instructions Start Date Status cyanocobalamin (vit B-12) 1,000 mcg/mL injection solution RxNorm: 934721 Milliliter 12/22/2018 No longer Active cyanocobalamin (vit B-12) 1,000 mcg/mL injection solution RxNorm: 734993 1Milliliter 10/01/2018 No longer Active Kenalog 40 mg/mL suspension for injection RxNorm: 5053592 Milliliter 09/15/2018 No longer Active cyanocobalamin (vit B-12) 1,000 mcg/mL injection solution RxNorm: 660106 1Milliliter 09/15/2018 No longer Active cyanocobalamin (vit B-12) 1,000 mcg/mL injection solution RxNorm: 789089 Milliliter 08/04/2018 No longer Active cyanocobalamin (vit B-12) 1,000 mcg/mL injection solution RxNorm: 524274 1Milliliter 07/16/2018 No longer Active cyanocobalamin (vit B-12) 1,000 mcg/mL injection solution RxNorm: 038443 Milliliter 07/01/2018 No longer Active cyanocobalamin (vit B-12) 1,000 mcg/mL injection solution RxNorm: 203866 Milliliter 06/15/2018 No longer Active cyanocobalamin (vit B-12) 1,000 mcg/mL injection solution RxNorm: 792536 Milliliter 06/02/2018 No longer Active cyanocobalamin (vit B-12) 1,000 mcg/mL injection solution RxNorm: 832229 Milliliter 05/21/2018 No longer Active Kenalog 40 mg/mL suspension for injection RxNorm: 5897555 1.5Milliliter 04/09/2018 No longer Active Kenalog 40 mg/mL suspension for injection RxNorm: 1576678 1Milliliter 10/16/2017 No longer Active Kenalog 40 mg/mL suspension for injection RxNorm: 6512221 Milliliter 02/07/2015 No longer Active Immunizations Vaccine [...] Item Item Code Result Date Comp Metabolic Sjs802 NA 138 mEq/L 09/03/2017 Comp Metabolic Pgn690 K 3.9 mEq/L 09/03/2017 Comp Metabolic Hhs402 CL 102 mEq/L 09/03/2017 Comp Metabolic Mby595 CO2 32.0 mEq/L 09/03/2017 Comp Metabolic Amh317 ANION GAP 8 09/03/2017 Comp Metabolic Qwd681 GLUCOSE 89 mg/dL 09/03/2017 Comp Metabolic Kse377 Creat 0.6 mg/dL 09/03/2017 Comp Metabolic Zdn587 eGFR 103 ml/min/1.73m2 09/03/2017 Comp Metabolic Qom834 BUN 10 mg/dL 09/03/2017 Comp Metabolic Wlg453 B/C Ratio 16.7 Ratio 09/03/2017 Comp Metabolic Brn445 CALCIUM 8.9 mg/dL 09/03/2017 Comp Metabolic Ude561 ALK PHOS 141 U/L 09/03/2017 Comp Metabolic Afy923 AST(SGOT) 12 U/L 09/03/2017 Comp Metabolic Jdd232 ALT(SGPT) 7 U/L 09/03/2017 Comp Metabolic Gnq808 BILI T 0.6 mg/dL 09/03/2017 Comp Metabolic Qfq140 ALBUMIN 3.6 g/dL 09/03/2017 Comp Metabolic Aav957 TPRO 6.6 g/dL 09/03/2017 Comp Metabolic Meg681 GLOB 3.0 g/dL 09/03/2017 Comp Metabolic Jar112 A/G Ratio 1.2 Ratio 09/03/2017 Comp Metabolic Eeu253 Osmo 274 mOsmo 09/03/2017 Hepatic Kmf984 ALBUMIN 3.7 g/dL 08/11/2017 Hepatic Zjr609 TPRO 7.0 g/dL 08/11/2017 Hepatic Cmb357 GLOB 3.3 g/dL 08/11/2017 Hepatic Nzy669 A/G Ratio 1.1 Ratio 08/11/2017 Hepatic Kqa729 ALK PHOS 85 U/L 08/11/2017 Hepatic Zor910 ALT(SGPT) 11 U/L 08/11/2017 Hepatic Fre626 AST(SGOT) 16 U/L 08/11/2017 Hepatic Jhb039 BILI T 0.6 mg/dL 08/11/2017 Hepatic Qss730 BILI D 0.1 mg/dL 08/11/2017 Hepatic Umn596 BILI I 0.5 mg/dL 08/11/2017 Hepatic Poz804 ALBUMIN 3.1 g/dL 07/18/2017 Hepatic Aek224 TPRO 5.9 g/dL 07/18/2017 Hepatic Unz978 GLOB 2.8 g/dL 07/18/2017 Hepatic Duy801 A/G Ratio 1.1 Ratio 07/18/2017 Hepatic Jct260 ALK PHOS 123 U/L 07/18/2017 Hepatic Gps990 ALT(SGPT) 210 U/L 07/18/2017 Hepatic Klo080 AST(SGOT) 71 U/L 07/18/2017 Hepatic Pio394 BILI T 1.1 mg/dL 07/18/2017 Hepatic Aiz219 BILI D 0.4 mg/dL 07/18/2017 Hepatic Kjn706 BILI I 0.7 mg/dL 07/18/2017 Cbc With [...] 32.4 pg 02/25/2017 Cbc With Differential Ord2 [place]% 7.6 % 02/25/2017 Cbc With Differential Ord2 [...] 1.22 K/ul 02/25/2017 Cbc With Differential Ord2 [place] ABS# 0.4 K/ul 02/25/2017 Cbc With Differential [...] 32.3 pg 01/02/2017 Cbc With Differential Ord2 [place]% 7.8 % 01/02/2017 Cbc With Differential Ord2 [...] 0.90 K/ul 01/02/2017 Cbc With Differential Ord2 [place] ABS# 0.4 K/ul 01/02/2017 Cbc With Differential Ord2 Eos ABS# 0.3 K/ul 01/02/2017 Cbc With Differential Ord2 Baso ABS# 0.0 K/ul 01/02/2017 Lipid Ord30 CHOL 139 mg/dL 12/13/2016 Lipid Ord30 HDL 48.0 mg/dl 12/13/2016 Lipid Ord30 TRIG 84 mg/dL 12/13/2016 Lipid Ord30 LDL 74 mg/dL 12/13/2016 Lipid Ord30 C/HDL 2.9 Ratio 12/13/2016 Comp Metabolic Pgn237 NA 137 mEq/L 12/13/2016 Comp Metabolic Eyt742 K 4.8 mEq/L 12/13/2016 Comp Metabolic Fom518 CL 101 mEq/L 12/13/2016 Comp Metabolic Qyp118 CO2 32.0 mEq/L 12/13/2016 Comp Metabolic Zmh103 ANION GAP 9 12/13/2016 Comp Metabolic Isw339 GLUCOSE 95 mg/dL 12/13/2016 Comp Metabolic Tdg127 Creat 0.8 mg/dL 12/13/2016 Comp Metabolic Bbx793 eGFR 79 ml/min/1.73m2 12/13/2016 Comp Metabolic Ejq522 BUN 15 mg/dL 12/13/2016 Comp Metabolic Uam176 B/C Ratio 19.7 Ratio 12/13/2016 Comp Metabolic Yed800 CALCIUM 9.3 mg/dL 12/13/2016 Comp Metabolic Esr528 ALK PHOS 63 U/L 12/13/2016 Comp Metabolic Ukb623 AST(SGOT) 15 U/L 12/13/2016 Comp Metabolic Xyv901 ALT(SGPT) 10 U/L 12/13/2016 Comp Metabolic Hax148 BILI T 0.7 mg/dL 12/13/2016 Comp Metabolic Imq359 ALBUMIN 3.7 g/dL 12/13/2016 Comp Metabolic Fiw550 TPRO 6.8 g/dL 12/13/2016 Comp Metabolic Qil865 GLOB 3.2 g/dL 12/13/2016 Comp Metabolic Xuz012 A/G Ratio 1.2 Ratio 12/13/2016 Comp Metabolic Ska311 Osmo 274 mOsmo 12/13/2016 Cbc With Differential [...] 31.9 pg 12/13/2016 Cbc With Differential Ord2 [place]% 9.9 % 12/13/2016 Cbc With Differential Ord2 [...] 1.17 K/ul 12/13/2016 Cbc With Differential Ord2 [place] ABS# 0.4 K/ul 12/13/2016 Cbc With Differential [...] 32.1 pg 12/19/2015 Cbc With Differential Ord2 [place]% 5.9 % 12/19/2015 Cbc With Differential Ord2 [...] 1.53 K/ul 12/19/2015 Cbc With Differential Ord2 [place] ABS# 0.3 K/ul 12/19/2015 Cbc With Differential [...] Ord30 C/HDL 2.8 Ratio 12/19/2015 Comp Metabolic Fjn234 NA 135 mEq/L 12/19/2015 Comp Metabolic Lxl049 K 4.1 mEq/L 12/19/2015 Comp Metabolic Wju293 CL 99 mEq/L 12/19/2015 Comp Metabolic Ykb746 CO2 27.0 mEq/L 12/19/2015 Comp Metabolic Nim825 ANION GAP 13 12/19/2015 Comp Metabolic Duc845 GLUCOSE 83 mg/dL 12/19/2015 Comp Metabolic Zqg206 Creat 0.7 mg/dL 12/19/2015 Comp Metabolic Pcd587 eGFR 88 ml/min/1.73m2 12/19/2015 Comp Metabolic Aff214 BUN 12 mg/dL 12/19/2015 Comp Metabolic Pyz450 B/C Ratio 17.4 Ratio 12/19/2015 Comp Metabolic Pec157 CALCIUM 9.0 mg/dL 12/19/2015 Comp Metabolic Ivf599 ALK PHOS 68 U/L 12/19/2015 Comp Metabolic Psj979 AST(SGOT) 16 U/L 12/19/2015 Comp Metabolic Mau717 ALT(SGPT) 13 U/L 12/19/2015 Comp Metabolic Lfo612 BILI T 0.7 mg/dL 12/19/2015 Comp Metabolic Zro533 ALBUMIN 4.0 g/dL 12/19/2015 Comp Metabolic Pax062 TPRO 7.0 g/dL 12/19/2015 Comp Metabolic Hgl851 GLOB 3.0 g/dL 12/19/2015 Comp Metabolic Oyt770 A/G Ratio 1.3 Ratio 12/19/2015 Comp Metabolic Lux807 Osmo 269 mOsmo 12/19/2015 Review of Systems [...] 4: G0439 12/30/2018 THER/PROPH/DIAG INJ SC/IM CPT-4: 65687 12/22/2018 VITAMIN B12 INJECTION CPT- 4: J3420 12/22/2018 THER/PROPH/DIAG INJ SC/IM CPT-4: 94260 10/01/2018 VITAMIN B12 INJECTION CPT- 4: J3420 10/01/2018 THER/PROPH/DIAG INJ SC/IM CPT-4: 61476 09/15/2018 VITAMIN B12 INJECTION CPT- 4: J3420 09/15/2018 TRIAMCINOLONE ACET INJ NOS CPT-4: J3301 09/15/2018 THER/PROPH/DIAG INJ SC/IM CPT-4: 39520 08/04/2018 VITAMIN B12 INJECTION CPT- 4: J3420 08/04/2018 THER/PROPH/DIAG INJ SC/IM CPT-4: 58857 07/16/2018 VITAMIN B12 INJECTION CPT- 4: J3420 07/16/2018 THER/PROPH/DIAG INJ SC/IM CPT-4: 29545 07/01/2018 VITAMIN B12 INJECTION CPT- 4: J3420 07/01/2018 ADMIN INFLUENZA VIRUS VAC CPT-4: G0008 06/25/2018 FLU VACC PRSV FREE INC ANTIG Formatting Model/CDA Sections, Assigned to/Miranda Ayala CPT-4: [id number] 06/25/2018 THER/PROPH/DIAG INJ SC/IM CPT-4: 82304 06/15/2018 VITAMIN B12 INJECTION CPT- 4: J3420 06/15/2018 THER/PROPH/DIAG INJ SC/IM CPT-4: 65235 06/02/2018 VITAMIN B12 INJECTION CPT- 4: J3420 06/02/2018 THER/PROPH/DIAG INJ SC/IM CPT-4: 18165 05/21/2018 VITAMIN B12 INJECTION CPT- 4: J3420 05/21/2018 TRIAMCINOLONE ACET INJ NOS CPT-4: J3301 04/09/2018 PPPS, SUBSEQ VISIT CPT- 4: G0439 12/18/2017 TRIAMCINOLONE ACET INJ NOS CPT-4: J3301 10/16/2017 DRAIN/INJECT JOINT/BURSA CPT-4: 79018 10/16/2017 PRESCRIP TRANSMIT VIA ERX SY CPT-4: G8553 05/05/2017 PRESCRIP TRANSMIT VIA ERX SY CPT-4: G8553 01/14/2017 PPPS, SUBSEQ VISIT CPT- 4: G0439 12/12/2016 PRESCRIP TRANSMIT VIA ERX SY CPT-4: G8553 10/15/2016 ADMIN PNEUMOCOCCAL VACCINE SNOMED CT: [id number] CPT-4: G0009 08/28/2016 Pneumococcal Polysaccharide Vaccine, 23-Valent, Ad CPT-4: 59290 08/28/2016 PRESCRIP TRANSMIT VIA ERX SY CPT-4: G8553 03/14/2016 PRESCRIP TRANSMIT VIA ERX SY CPT-4: G8553 12/19/2015 THER/PROPH/DIAG INJ SC/IM CPT-4: 68835 02/07/2015 TRIAMCINOLONE ACET INJ NOS CPT-4: J3301 02/07/2015 Vital Signs Date Vital 12/30/2018 Blood Pressure 1: 112/68 Code: 8480-6 BMI: 24.0 Code: 25523-7 Heart Rate 1: 66 bpm Height: 5'1" SpO2: 96% Weight: 127 lbs 12/22/2018 Blood Pressure 1: 110/72 Code: 8480-6 BMI: 24.0 Code: 94744-0 Heart Rate 1: 64 bpm Height: 5'1" SpO2: 95% Weight: 127 lbs 09/15/2018 Blood Pressure 1: 106/70 Code: 8480-6 BMI: 24.9 Code: 00233-5 Heart Rate 1: 74 bpm Height: 5'1" SpO2: 95% Weight: 132 lbs 08/18/2018 Blood Pressure 1: 128/70 Code: 8480-6 BMI: 25.1 Code: 42187-8 Heart Rate 1: 74 bpm Height: 5'1" SpO2: 95% Weight: 133 lbs 08/04/2018 Blood Pressure 1: 120/80 Code: 8480-6 Blood Pressure 1: 122/80 Code: 8480-6 Blood Pressure 2: 120/82 Code: 8480-6 BMI: 25.5 Code: 52754-0 Heart Rate 1: 63 bpm Heart Rate 1: 67 bpm Height: 5'1" Weight: 135 lbs Weight: 07/22/2018 Blood Pressure 1: 120/82 Code: 8480-6 BMI: 24.9 Code: 70472-4 Heart Rate 1: 64 bpm Height: 5'1" SpO2: 95% Weight: 132 lbs 04/21/2018 Blood Pressure 1: 108/70 Code: 8480-6 BMI: 24.4 Code: 86043-2 Heart Rate 1: 62 bpm Height: 5'1" SpO2: 94% Weight: 129 lbs 04/09/2018 Blood Pressure 1: 138/86 Code: 8480-6 BMI: 25.5 Code: 37447-4 Heart Rate 1: 64 bpm Height: 5'1" SpO2: 99% Temperature: 36.4 (C) / 97.5 (F) Weight: 135 lbs 01/19/2018 Blood Pressure 1: 128/76 Code: 8480-6 BMI: 25.9 Code: 93585-1 Heart Rate 1: 65 bpm Height: 5'1" SpO2: 98% Weight: 137 lbs 12/18/2017 Blood Pressure 1: 144/82 Code: 8480-6 BMI: 26.1 Code: 05166-3 Heart Rate 1: 57 bpm Height: 5'1" SpO2: 97% Waist Measure (cm): 74 cm Weight: 138 lbs 10/16/2017 Blood Pressure 1: 142/88 Code: 8480-6 BMI: 25.5 Code: 65203-5 Heart Rate 1: 63 bpm Height: 5'1" SpO2: 97% Weight: 135 lbs 09/03/2017 Blood Pressure 1: 144/90 Code: 8480-6 BMI: 26.3 Code: 80027-1 Heart Rate 1: 91 bpm Height: 5'1" SpO2: 96% Weight: 139 lbs 07/31/2017 Blood Pressure 1: 136/90 Code: 8480-6 BMI: 26.3 Code: 14986-0 Height: 5'1" Weight: 139 lbs 07/18/2017 Blood Pressure 1: 136/84 Code: 8480-6 06/16/2017 Blood Pressure 1: 136/84 Code: 8480-6 BMI: 26.5 Code: 13137-3 Heart Rate 1: 72 bpm Height: 5'1" SpO2: 97% Weight: 140 lbs 05/28/2017 Blood Pressure 1: 138/78 Code: 8480-6 BMI: 26.1 Code: 28754-6 Heart Rate 1: 70 bpm Height: 5'1" SpO2: 98% Weight: 138 lbs 05/05/2017 Blood Pressure 1: 140/86 Code: 8480-6 BMI: 25.3 Code: 95246-9 Heart Rate 1: 66 bpm Height: 5'1" SpO2: 99% Weight: 134 lbs 03/13/2017 Blood Pressure 1: 126/74 Code: 8480-6 BMI: 25.3 Code: 73438-5 Heart Rate 1: 73 bpm Height: 5'1" SpO2: 98% Weight: 134 lbs 02/10/2017 Blood Pressure 1: 148/88 Code: 8480-6 BMI: 25.9 Code: 54026-4 Heart Rate 1: 84 bpm Height: 5'1" SpO2: 97% Weight: 137 lbs 01/14/2017 Blood Pressure 1: 134/86 Code: 8480-6 BMI: 25.7 Code: 51536-6 Heart Rate 1: 83 bpm Height: 5'1" SpO2: 95% Weight: 136 lbs 01/07/2017 Blood Pressure 1: 136/88 Code: 8480-6 BMI: 25.1 Code: 20657-9 Heart Rate 1: 86 bpm Height: 5'1" SpO2: 94% Weight: 133 lbs 01/02/2017 Blood Pressure 1: 122/68 Code: 8480-6 Blood Pressure 2: 116/78 Code: 8480-6 01/01/2017 Blood Pressure 1: 90/52 Code: 8480-6 BMI: 25.1 Code: 78280- 5 Heart Rate 1: 86 bpm Height: 5'1" SpO2: 99% Weight: 133 lbs 12/20/2016 Blood Pressure 1: 120/76 Code: 8480-6 12/12/2016 Blood Pressure 1: 130/72 Code: 8480-6 BMI: 24.8 Code: 35927-7 Heart Rate 1: 62 bpm Height: 5'1" SpO2: 98% Waist Measure (cm): 79 cm Weight: 131 lbs 12/11/2016 Blood Pressure 1: 132/70 Code: 8480-6 BMI: 24.8 Code: 86598-3 Heart Rate 1: 60 bpm Height: 5'1" Weight: 131 lbs 10/15/2016 Blood Pressure 1: 108/66 Code: 8480-6 BMI: 24.8 Code: 37017-2 Heart Rate 1: 60 bpm Height: 5'1" Weight: 131 lbs 07/17/2016 Blood Pressure 1: 128/82 Code: 8480-6 BMI: 25.3 Code: 55841-6 Heart Rate 1: 50 bpm Height: 5'2" Weight: 136 lbs 05/15/2016 Blood Pressure 1: 108/70 Code: 8480-6 BMI: 23.4 Code: 56437-7 Heart Rate 1: 54 bpm Height: 5'2" SpO2: 96% Weight: 126 lbs 04/23/2016 Blood Pressure 1: 112/60 Code: 8480-6 BMI: 23.6 Code: 56312-1 Heart Rate 1: 92 bpm Height: 5'2" SpO2: 95% Weight: 127 lbs 03/14/2016 Blood Pressure 1: 118/74 Code: 8480-6 BMI: 24.0 Code: 54809-8 Heart Rate 1: 51 bpm Height: 5'2" SpO2: 94% Temperature: 36.8 (C) / 98.3 (F) Weight: 129 lbs 02/19/2016 Blood Pressure 1: 110/62 Code: 8480-6 BMI: 23.4 Code: 34256-7 Heart Rate 1: 74 bpm Height: 5'2" SpO2: 97% Weight: 126 lbs 12/19/2015 Blood Pressure 1: 108/74 Code: 8480-6 BMI: 23.6 Code: 32189-9 Heart Rate 1: 52 bpm Height: 5'2" Weight: 127 lbs 03/06/2015 Blood Pressure 1: 136/88 Code: 8480-6 Heart Rate 1: 64 bpm Weight: 129 lbs 02/07/2015 Blood Pressure 1: 142/90 Code: 8480-6 BMI: 24.5 Code: 34005-5 Heart Rate 1: 82 bpm Height: 5'2" [...] data Encounters Encounter Performer Location Codes Date ([id number]) 39698 EST. PATIENT, LEVEL IV Diagnosis: Other vitamin B12 deficiency anemias[ICD10: D51.8] [facility] CPT-4: 65123 12/22/2018 ([id number]) 29359 EST. PATIENT, LEVEL IV Diagnosis: Chest pain, unspecified[ICD10: R07.9] Diagnosis: Other vitamin B12 deficiency anemias[ICD10: D51.8] Diagnosis: Other allergic rhinitis[ICD10: J30.89] Mallorie Burden MD, [facility] CPT-4: 80313 09/15/2018 ([id number]) 26354 EST. PATIENT, LEVEL III Diagnosis: Essential (primary) hypertension[ICD10: I10] Diagnosis: Fecal urgency[ICD10: R15.2] Kim Burden MD, [facility] CPT-4: 40559 08/18/2018 ([id number]) 61637 EST. PATIENT, LEVEL IV Diagnosis: Other vitamin B12 deficiency anemias[ICD10: D51.8] Diagnosis: Essential (primary) hypertension[ICD10: I10] Diagnosis: Major depressive disorder, recurrent, mild[ICD10: F33.0] Diagnosis: Unsteadiness on feet[ICD10: R26.81] Kim Burden MD, [facility] CPT- 4: 75903 08/04/2018 ([id number]) 60800 EST. PATIENT, LEVEL IV Diagnosis: Fecal urgency[ICD10: R15.2] Diagnosis: Generalized abdominal pain[ICD10: R10.84] Diagnosis: Essential (primary) hypertension[ICD10: I10] Kim Burden MD, [facility] CPT-4: 00000 07/22/2018 ([id number]) 54861 EST. PATIENT, LEVEL IV Diagnosis: Essential (primary) hypertension[ICD10: I10] Diagnosis: Other emphysema[ICD10: J43.8] Diagnosis: Candidal stomatitis[ICD10: B37.0] Kim Burden MD, [facility] CPT- 4: 97935 04/21/2018 ([id number]) 84756 EST. PATIENT, LEVEL III Diagnosis: Chronic obstructive pulmonary disease with (acute) exacerbation[ICD10: J44.1] Mallorie Burden MD, [facility] CPT-4: 93358 04/09/2018 ([id number]) 08455 EST. PATIENT, LEVEL IV Diagnosis: Essential (primary) hypertension[ICD10: I10] Diagnosis: Other emphysema[ICD10: J43.8] Kim Burden MD, [facility] CPT-4: 54329 01/19/2018 ([id number]) 66962 EST. PATIENT, LEVEL IV Diagnosis: Essential (primary) hypertension[ICD10: I10] Diagnosis: Other emphysema[ICD10: J43.8] Diagnosis: Dependence on supplemental oxygen[ICD10: Z99.81] Diagnosis: Hypoxemia[ICD10: R09.02] Diagnosis: Pain in left knee[ICD10: M25.562] Diagnosis: Effusion, left knee[ICD10: M25.462] Kim Burden MD, [facility] CPT- 4: 25768 10/16/2017 25100 EST. PATIENT, LEVEL III Diagnosis: Pain in thoracic spine[ICD10: M54.6] Pebbles Burden MD, [facility] CPT- 4: 22662 09/03/2017 ([id number]) 92760 EST. PATIENT, LEVEL III Diagnosis: Essential (primary) hypertension[ICD10: I10] Diagnosis: Other emphysema[ICD10: J43.8] Kim Burden MD, [facility] CPT-4: 01373 07/31/2017 ([id number]) Miscellaneous no charge Diagnosis: Essential (primary) hypertension[ICD10: I10] Mallorie Burden MD, [facility] CPT-4: 74392 07/18/2017 ([id number]) 57674 EST. PATIENT, LEVEL III Diagnosis: Pain in left knee[ICD10: M25.562] Diagnosis: Effusion, left knee[ICD10: M25.462] Mallorie Burden MD, [facility] CPT-4: 99509 06/16/2017 ([id number]) 61572 EST. PATIENT, LEVEL III Diagnosis: Essential (primary) hypertension[ICD10: I10] Diagnosis: Unsteadiness on feet[ICD10: R26.81] Kim Burden MD, [facility] CPT- 4: 20839 05/28/2017 ([id number]) 05494 EST. PATIENT, LEVEL IV Diagnosis: Essential (primary) hypertension[ICD10: I10] Diagnosis: Chronic obstructive pulmonary disease with acute lower respiratory infection[ICD10: J44.0] Kim Burden MD [facility] CPT-4: 87596 05/05/2017 ([id number]) 21444 EST. 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 PATIENT, LEVEL IV Diagnosis: Essential (primary) hypertension[ICD10: I10] Diagnosis: Gastro-esophageal reflux disease without esophagitis[ICD10: K21.9] Diagnosis: Chronic obstructive pulmonary disease, unspecified[ICD10: J44.9] Kim Burden MD [facility] CPT-4: 00937 02/10/2017 ([id number]) 82555 EST. PATIENT, LEVEL IV Diagnosis: Essential (primary) hypertension[ICD10: I10] Diagnosis: Gastro-esophageal reflux disease without esophagitis[ICD10: K21.9] Diagnosis: Chronic obstructive pulmonary disease with acute lower respiratory infection[ICD10: J44.0] Kim Burden MD [facility] CPT-4: 90766 01/14/2017 95111 EST. PATIENT, LEVEL IV Diagnosis: Other fatigue[ICD10: R53.83] Diagnosis: Other malaise[ICD10: R53.81] Diagnosis: Headache[ICD10: R51] Diagnosis: Palpitations[ICD10: R00.2] Diagnosis: Dehydration[ICD10: E86.0] Pebbles Burden MD [facility] CPT-4: 77676 01/07/2017 ([id number]) Miscellaneous no charge Diagnosis: Essential (primary) hypertension[ICD10: I10] Pebbles Burden MD [facility] CPT-4: 58084 01/02/2017 46489 EST. PATIENT, LEVEL IV Diagnosis: Chronic obstructive pulmonary disease, unspecified[ICD10: J44.9] Diagnosis: Essential (primary) hypertension[ICD10: I10] Diagnosis: Other fatigue[ICD10: R53.83] Pebbles Burden MD [facility] CPT-4: 29540 01/01/2017 ([id number]) Miscellaneous no charge Diagnosis: Essential (primary) hypertension[ICD10: I10] Pebbles Burden MD, [facility] CPT-4: 56154 12/20/2016 ([id number]) 13900 EST. 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 PATIENT, LEVEL IV Diagnosis: Essential (primary) hypertension[ICD10: I10] Diagnosis: Other allergic rhinitis[ICD10: J30.89] Diagnosis: Gastro-esophageal reflux disease without esophagitis[ICD10: K21.9] Kim Burden MD, [facility] CPT-4: 41802 10/15/2016 ([id number]) 02249 EST. 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 PATIENT, LEVEL III Diagnosis: Pain in left hip[ICD10: M25.552] Diagnosis: Acute laryngopharyngitis[ICD10: J06.0] Kim Burden MD [facility] CPT-4: 72025 05/15/2016 ([id number]) 43510 EST. PATIENT, LEVEL III Diagnosis: Fracture of unspecified parts of lumbosacral spine and pelvis, initial encounter for closed fracture[ICD10: S32.9XXA] Diagnosis: Essential (primary) hypertension[ICD10: I10] Kim Burden MD, [facility] CPT-4: 69618 04/23/2016 39304 EST. PATIENT, LEVEL IV Diagnosis: Acute laryngopharyngitis[ICD10: J06.0] Diagnosis: Other allergic rhinitis[ICD10: J30.89] Pebbles Burden MD, [facility] CPT- 4: 58505 03/14/2016 01960 EST. PATIENT, LEVEL IV Diagnosis: Dysuria[ICD10: R30.0] Diagnosis: Left lower quadrant pain[ICD10: R10.32] Pebbles Burden MD, [facility] CPT-4: 80077 02/19/2016 ([id number]) 33804 EST. 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 PATIENT, LEVEL IV Diagnosis: ESSENTIAL HYPERTENSION[ICD9: 401.9] Diagnosis: ACUTE URI[ICD9: 465.9] Kim Burden MD, [facility] CPT-4: 78545 03/06/2015 ([id number]) OFFICE VISIT, NEW - LEVEL 4 Diagnosis: ESOPHAGEAL REFLUX[ICD9: 530.81] Diagnosis: ESSENTIAL HYPERTENSION[ICD9: 401.9] Diagnosis: COPD (chronic obstructive pulmonary disease)[ICD9: 496] Diagnosis: ALLERGIC RHINITIS[ICD9: 477.9] Mallorie Burden MD, [facility] CPT-4: 84372 02/07/2015 Plan of Care Planned Activity Notes [...] Summary Completed 12/30/2018 Appointment: [phone] [phone] [facility] - Annual Wellness Visit 12/28/2018 Visit [...] injection. 12/22/2018 Appointment: Kim Burden WPtel: [phone] [facility] (15 min) Moderate 12/22/2018 Patient Education: Patient [...] the office 09/15/2018 Appointment: Mallorie Wetzel WPtel: [phone] [facility] [phone] (30 min) Complex 09/15/2018 Patient Education: Patient Medication Summary Completed 09/15/2018 Care Plan: Referral Order SNOMED-CT : [id number] Pending 09/15/2018 [phone] (15 min) Moderate 08/25/2018 Visit Plan: Hypertension [...] a day. 08/18/2018 Appointment: [phone] [facility] (15 min) Moderate 08/18/2018 Patient Education: Patient [...] of anxiolytic. 08/04/2018 Appointment: [phone] [facility] [place] (15 min) Moderate 08/04/2018 Appointment: Nurse Visit [...] Kim Burden WPtel: [phone] [facility] [place] (15 min) Moderate 07/22/2018 Patient Education: [...] swallow. 04/21/2018 Appointment: [phone] [facility] [place] (15 min) Moderate 04/21/2018 Patient Education: Patient [...] acute changes. 04/09/2018 Appointment: Mallorie Wetzel WPtel: [facility]5 [phone] [place] (30 min) Complex 04/09/2018 Patient Education: [...] changes. 01/19/2018 Appointment: Kim Burden WPtel: [phone] [facility] [place] (15 min) Moderate 01/19/2018 Patient Education: Patient Medication Summary Completed 01/19/2018 Appointment: Kim Burden WPtel: [phone] [facility] [place] (15 min) Moderate 01/14/2018 Visit Plan: Medicare [...] surrogate. 12/18/2017 Appointment: Pebbles Lund WPtel: [phone] [facility] [place] [facility] - Annual Wellness Visit 12/18/2017 Patient [...] home. 10/16/2017 Appointment: Kim Burden WPtel: [phone] [facility] (15 min) Moderate 10/16/2017 Patient Education: Patient [...] or concerns. 09/03/2017 Appointment: Pebbles Lund WPtel: [phone] [facility] [place] (15 min) Moderate 09/03/2017 Patient Education: Patient Medication Summary Completed 09/03/2017 Appointment: [phone] [facility] [place] (15 min) Moderate 08/11/2017 Appointment: Kim Burden WPtel: [phone] [facility] [place] (15 min) Moderate 08/11/2017 Patient Education: [...] current treatment. 07/31/2017 Appointment: [facility]Ptel[phone] [facility] [place] (15 min) Moderate 07/31/2017 Patient Education: Patient Medication Summary Completed 07/31/2017 Appointment: Nurse Visit 07/18/2017 Patient Education: Patient Medication Summary Completed 07/18/2017 Patient Education: Patient Medication Summary Completed 07/18/2017 Appointment: Kim Burden WPtel: [phone] [facility] (15 min) Moderate 06/30/2017 Visit Plan: Effusion left knee-fall 2 weeks ago-recommend compression of joint and refer to Ortho for evaluation and treatment-will refer to Dr Pryor/Quinton Mccormick. Patient verbalized understanding of plan. 06/16/2017 Appointment: Mallorie Wetzel WPtel: [phone] [phone] [place] (30 min) Complex 06/16/2017 Patient Education: [...] when active. 05/28/2017 Appointment: Kim Burden WPtel: [facility]6 [facility] (15 min) Moderate 05/28/2017 Patient Education: Patient [...] acute changes. 05/05/2017 Appointment: Kim Burden WPtel: [phone] [facility] [place] (15 min) Moderate 05/05/2017 Patient Education: [...] current medications. 03/13/2017 Appointment: Kim Burden WPtel: [facility]5 [facility] (15 min) Moderate 03/13/2017 Patient Education: Patient [...] symptoms worsening. 02/10/2017 Appointment: Kim Burden WPtel: [facility]5 [facility] (15 min) Moderate 02/10/2017 Patient Education: Patient [...] improving. 01/14/2017 Appointment: [facility]Ptel[phone] [facility] (15 min) Moderate 01/14/2017 Patient Education: Patient [...] concerns. 01/07/2017 Appointment: Pebbles Lund WPtel: [phone] [facility] [place] (30 min) Complex 01/07/2017 Patient Education: Patient [...] 01/01/2017 Appointment: Pebbles Lund WPtel: [phone] [facility] [place] (30 min) Complex 01/01/2017 Patient Education: Patient [...] surrogate. 12/12/2016 Appointment: Pebbles Lund WPtel: [phone] [facility] [place] [facility] - Annual Wellness Visit 12/12/2016 Patient [...] Kim Burden WPtel: [phone] [facility] (15 min) Moderate 12/11/2016 Patient Education: Patient Medication Summary Completed 12/11/2016 Appointment: Mallorie Wetzel WPtel: [phone] [phone] [place] (30 min) Complex 12/10/2016 Visit Plan: [...] not improving. 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 07/17/2016 Appointment: Kim Burden WPtel: [facility]9 [facility] (15 min) Moderate 07/17/2016 Patient Education: Patient Medication Summary Completed 07/17/2016 Appointment: Kim Burden WPtel: [facility]3 [facility] (15 min) Moderate 06/10/2016 Visit Plan: Hip pain - persistent but improving - continue with current treatment plan. Pt to call if her symptoms are not improving or if her hip pain worsens. URI symptoms - supportive care, use otc allergy medications. 05/15/2016 Appointment: Kim Burden WPtel: [facility]8 [facility] (15 min) Moderate 05/15/2016 Patient Education: Patient [...] not improving. 04/23/2016 Appointment: Kim Burden WPtel: [facility]8 [facility] (15 min) Moderate 04/23/2016 Patient Education: Patient Medication Summary Completed 04/23/2016 Patient Education: Hypertension Completed 04/23/2016 Care Plan: X-RAY EXAM OF [facility] : 44601-4 Pending 03/18/2016 Visit Plan: URI - Pt [...] spray. 03/14/2016 Appointment: Pebbles Lund WPtel: [phone] [facility] (30 min) Complex 03/14/2016 Patient Education: Patient Medication Summary Completed 03/14/2016 Patient Education: Patient Medication Summary Completed 02/29/2016 Visit Plan: Flank pain - pt is currently being treated for UTI, but is having continued left flank pain - will get KUB - pt is to notify clinic if symptoms do not improve, or with any concerns. 02/19/2016 Appointment: Pebbles Lund WPtel: [phone] [phone] (30 min) Complex 02/19/2016 Patient Education: Patient Medication Summary Completed 02/19/2016 Appointment: Kim Burden WPtel: [phone] [facility] (15 min) Moderate 01/22/2016 Visit Plan: Hypertension [...] improving. 12/19/2015 Appointment: Kim Burden WPtel: [phone] [facility] (15 min) Moderate 12/19/2015 Patient Education: Patient [...] Finish RX. 03/06/2015 Appointment: Kim Burden WPtel: [facility] Follow up 03/06/2015 Patient Education: Patient Medication [...] Completed 02/07/2015 Care Plan: SCREENINGMAMMOGRAPHYDIGITAL LOINC : 43307-4 Ordered 02/07/2015 Care Plan: COMPLETE CBC AUTOMATED LOINC : 04648-0 Ordered 02/07/2015 Referral: Consuelo Chavez Referral Appointment Requested Instructions Comment . Dehydration, palpitations, malaise, headache [...] to help decrease GI upset./loose stools - [employer] or ivWatch . Hypertension - well controlled - continue [...] care surrogate. TAKE WITH FOOD AND PROBIOTIC ([employer] OR [employer]) . URI - Pt advised to increase [...]
--- OUTSIDE RECORDS SUMMARY | 2019-04-06 08:42 | XMS REPORT | CCD ---
Author Author Mallorie Wetzel MD, [facility] Address [address] [place] [address] Phone Care Team Providers Care Line Operator Name Role Phone PP Unavailable CCM Unavailable Summary Purpose Interface Exchange Insurance Providers Payer name Policy type / Coverage type Covered democrat ID Effective Begin Date Effective End Date WPS Medicare Part B Medicare Part B [id number] 2018 Unknown AET[employer] Medicare Part B [id number] Unknown Family history Brother Diagnosis Age At [...] Unknown 3 02/07/[address]: 1414120 Quit over 10 years ago 199302/07/2015 Number [...] Fill Instructions Lexapro 20 mg tablet RxNorm: 875823 Tablet(s) PO TAKE 1 TABLET EVERY DAY 01/07/2019 01/01/2020 Active Lexapro 20 mg tablet RxNorm: 390319 Tablet(s) PO TAKE 1 TABLET EVERY DAY 01/07/2019 01/06/2019 Inactive mupirocin 2 % topical ointment RxNorm: 063956 1 Application TOP BID 12/30/2018 No Stop Date Active cyanocobalamin (vit B-12) 1,000 mcg/mL injection solution RxNorm: 029504 Milliliter(s) Inj 12/22/2018 12/22/2018 Inactive metoprolol tartrate 50 mg tablet RxNorm: 820328 1/2 Tablet(s) PO BID 11/06/2018 10/31/2019 Active alprazolam 1 mg tablet RxNorm: 091388 1/2 Tablet(s) PO TID 11/06/2018 08/02/2019 Active ibuprofen 800 mg tablet RxNorm: 262924 Tablet(s) TAKE 1 TABLET THREE TIMES DAILY 11/06/2018 10/31/2019 Active losartan 100 mg tablet RxNorm: 066715 Tablet(s) TAKE 1 TABLET EVERY EVENING 11/06/2018 10/31/2019 Active Lexapro 10 mg tablet RxNorm: 904748 Tablet(s) TAKE 1 TABLET EVERY DAY 11/06/2018 01/06/2019 Inactive cyanocobalamin (vit B-12) 1,000 mcg/mL injection solution RxNorm: 330723 1 Milliliter(s) Inj 10/01/2018 10/01/2018 Inactive ibuprofen 800 mg tablet RxNorm: 437722 TAKE 1 TABLET THREE TIMES DAILY 09/28/2018 11/05/2018 Inactive cyanocobalamin (vit B-12) 1,000 mcg/mL injection solution RxNorm: 412569 1 Milliliter(s) Inj 09/15/2018 09/15/2018 Inactive Kenalog 40 mg/mL suspension for injection RxNorm: 7988934 Milliliter(s) Inj 09/15/2018 09/15/2018 Inactive alprazolam 1 mg tablet RxNorm: 317796 1/2 Tablet(s) PO TID 08/10/2018 11/05/2018 Inactive cyanocobalamin (vit B-12) 1,000 mcg/mL injection solution RxNorm: 252138 Milliliter(s) Inj 08/04/2018 08/04/2018 Inactive alprazolam 1 mg tablet RxNorm: 889808 1/2 Tablet(s) PO BID 08/04/2018 08/09/2018 Inactive cholestyramine (with sugar) 4 gram powder for susp in a packet RxNorm: 476154 1/2 to 1 packet PO TID take 30 minutes before meals 07/22/2018 12/21/2018 Inactive cyanocobalamin (vit B-12) 1,000 mcg/mL injection solution RxNorm: 509232 1 Milliliter(s) Inj 07/16/2018 07/16/2018 Inactive omeprazole 20 mg capsule,delayed release RxNorm: 483100 Capsule(s) TAKE 1 CAPSULE TWICE DAILY 07/01/2018 06/25/2019 Active cyanocobalamin (vit B-12) 1,000 mcg/mL injection solution RxNorm: 381192 Milliliter(s) Inj 07/01/2018 07/01/2018 Inactive omeprazole 20 mg capsule,delayed release RxNorm: 276395 TAKE 1 CAPSULE TWICE DAILY 07/01/2018 06/30/2018 Inactive alprazolam 1 mg tablet RxNorm: 631132 1 Tablet(s) PO TID 07/01/2018 08/03/2018 Inactive cyanocobalamin (vit B-12) 1,000 mcg/mL injection solution RxNorm: 099348 Milliliter(s) Inj 06/15/2018 06/15/2018 Inactive cyanocobalamin (vit B-12) 1,000 mcg/mL injection solution RxNorm: 773428 Milliliter(s) Inj 06/02/2018 06/02/2018 Inactive fluticasone 50 mcg/actuation nasal spray,suspension RxNorm: 0156896 1 [place] NASAL BID 05/26/2018 05/20/2019 Active Vitamin B-12 1,000 mcg/mL injection solution RxNorm: 124678 1 Milliliter(s) Inj Q2 weeks x2 months and then monthly injections 05/21/2018 No Stop Date Active cyanocobalamin (vit B-12) 1,000 mcg/mL injection solution RxNorm: 656514 Milliliter(s) Inj 05/21/2018 05/21/2018 Inactive fluticasone 50 mcg/actuation nasal spray,suspension RxNorm: 3411186 1 [place] NASAL BID 05/19/2018 05/25/2018 Inactive fluticasone 50 mcg/actuation nasal spray,suspension RxNorm: 2613781 1 [place] NASAL BID 05/18/2018 05/18/2018 Inactive fluticasone 50 mcg/actuation nasal spray,suspension RxNorm: 1562228 1 [place] NASAL BID 05/15/2018 05/17/2018 Inactive fluticasone 50 mcg/actuation nasal spray,suspension RxNorm: 2899476 1 [place] NASAL BID 05/15/2018 05/14/2018 Inactive nystatin 100,000 unit/mL oral suspension RxNorm: 485503 5 Milliliter(s) PO QID 04/21/2018 04/30/2018 Inactive Breo Ellipta 100 mcg-25 mcg/dose powder for inhalation RxNorm: 7899996 1 INH daily 04/09/2018 04/03/2019 Active please call patient with jaramillo before sending prednisone 20 mg tablet RxNorm: 119740 1 Tablet(s) PO BID 04/09/2018 04/13/2018 Inactive start tomorrow Kenalog 40 mg/mL suspension for injection RxNorm: 8694270 1.5 Milliliter(s) Inj 04/09/2018 04/09/2018 Inactive Breo Ellipta 100 mcg-25 mcg/dose powder for inhalation RxNorm: 1994887 1 INH daily 04/09/2018 04/08/2018 Inactive alprazolam 1 mg tablet RxNorm: 779872 1 Tablet(s) PO TID 03/13/2018 06/30/2018 Inactive losartan 100 mg tablet RxNorm: 590930 TAKE 1 TABLET EVERY EVENING 03/02/2018 11/05/2018 Inactive Ventolin HFA 90 mcg/actuation aerosol inhaler RxNorm: 206407 2 INH Q4-6H as needed 12/29/2017 02/26/2018 Inactive Ventolin HFA 90 mcg/actuation aerosol inhaler RxNorm: 434311 2 INH Q4-6H as needed 12/29/2017 12/28/2017 Inactive Diflucan 150 mg tablet RxNorm: 864000 1 Tablet(s) PO daily 11/03/2017 11/05/2017 Inactive please call pt to let herknow when to pick- up the med Keflex 500 mg capsule RxNorm: 657729 1 Capsule(s) PO TID 10/23/2017 10/29/2017 Inactive Kenalog 40 mg/mL suspension for injection RxNorm: 1626665 1 Milliliter(s) Inj 10/16/2017 10/16/2017 Inactive ibuprofen 800 mg tablet RxNorm: 108314 TAKE 1 TABLET THREE TIMES DAILY 10/15/2017 09/27/2018 Inactive Lexapro 10 mg tablet RxNorm: 421538 TAKE 1 TABLET EVERY DAY 10/15/2017 10/09/2018 Inactive hydrocodone 5 mg-acetaminophen 325 mg tablet RxNorm: 079575 1 Tablet(s) PO QID as needed 09/03/2017 07/21/2018 Inactive omeprazole 20 mg capsule,delayed release RxNorm: 993284 1 Capsule(s) PO BID 09/02/2017 06/30/2018 Inactive alprazolam 1 mg tablet RxNorm: 832127 1 Tablet(s) PO TID 09/02/2017 03/12/2018 Inactive metoprolol tartrate 50 mg tablet RxNorm: 799258 1/2 Tablet(s) PO BID 06/26/2017 06/20/2018 Inactive omeprazole 20 mg capsule,delayed release RxNorm: 598508 1 Capsule(s) PO BID 06/05/2017 09/01/2017 Inactive omeprazole 20 mg capsule,delayed release RxNorm: 602472 1 Capsule(s) PO BID 05/28/2017 06/04/2017 Inactive omeprazole 20 mg capsule,delayed release RxNorm: 276378 1 Capsule(s) PO QPM 05/27/2017 05/27/2017 Inactive Breo Ellipta 100 mcg-25 mcg/dose powder for inhalation RxNorm: 8308419 1 INH daily 05/05/2017 04/08/2018 Inactive alprazolam 1 mg tablet RxNorm: 418061 1 Tablet(s) PO TID 02/10/2017 08/07/2017 Inactive metoprolol tartrate 50 mg tablet RxNorm: 046086 1/2 Tablet(s) PO BID 02/10/2017 06/25/2017 Inactive losartan 100 mg tablet RxNorm: 584113 1 Tablet(s) PO QPM 02/10/2017 02/04/2018 Inactive losartan 50 mg tablet RxNorm: 939607 2 Tablet(s) PO QPM 01/23/2017 02/09/2017 Inactive Diflucan 150 mg tablet RxNorm: 231665 1 Tablet(s) PO daily 01/20/2017 01/22/2017 Inactive please call pt to let herknow when to pick- up the med Diflucan 150 mg tablet RxNorm: 219716 1 Tablet(s) PO daily 01/20/2017 01/19/2017 Inactive please call pt to let herknow when to pick- up the med losartan 50 mg tablet RxNorm: 357650 1 Tablet(s) PO QPM 01/14/2017 01/22/2017 Inactive Cipro 500 mg tablet RxNorm: 864348 1 Tablet(s) PO BID 01/08/2017 01/17/2017 Inactive Cipro 500 mg tablet RxNorm: 822999 1 Tablet(s) PO BID 01/08/2017 01/07/2017 Inactive Lexapro 10 mg tablet RxNorm: 127782 TAKE 1 TABLET EVERY DAY 12/20/2016 10/14/2017 Inactive metoprolol tartrate 50 mg tablet RxNorm: 286771 1 Tablet(s) PO in the morning and 1.5 pill at night 12/11/2016 01/13/2017 Inactive spironolactone 25 mg tablet RxNorm: 541143 TAKE 1 TABLET EVERY DAY 11/04/2016 07/21/2018 Inactive metoprolol tartrate 50 mg tablet RxNorm: 541854 TAKE 1 TABLET TWICE DAILY 10/29/2016 12/10/2016 Inactive ibuprofen 800 mg tablet RxNorm: 600283 TAKE 1 TABLET THREE TIMES DAILY 10/21/2016 10/14/2017 Inactive Astepro 0.15 % (205.5 mcg) nasal spray RxNorm: 9851143 1 [place] NASAL BID 10/15/2016 10/14/2016 Inactive Astepro 0.15 % (205.5 mcg) nasal spray RxNorm: 9143307 1 [place] NASAL BID 10/15/2016 07/21/2018 Inactive Astepro 0.15 % (205.5 mcg) nasal spray RxNorm: 1488946 1 [place] NASAL BID 10/15/2016 10/14/2016 Inactive omeprazole 20 mg capsule,delayed release RxNorm: 787683 1 Capsule(s) PO QPM 10/15/2016 05/26/2017 Inactive omeprazole 20 mg capsule,delayed release RxNorm: 018566 1 Capsule(s) QPM 10/15/2016 10/14/2016 Inactive omeprazole 20 mg capsule,delayed release RxNorm: 097743 TAKE 1 CAPSULE TWICE DAILY 09/02/2016 10/14/2016 Inactive Lexapro 10 mg tablet RxNorm: 539555 TAKE 1 TABLET EVERY DAY 08/21/2016 12/19/2016 Inactive calcitonin (salmon) 200 unit/actuation nasal spray RxNorm: 536510 1 [place] NASAL daily ONE SPRAY PER ONE NOSTRIL DAILY- ALTERNATE NOSTRILS DAILY 05/31/2016 05/30/2016 Inactive She will do this for 3 months- If she wants to do a 3 month supply at one time she can without refill calcitonin (salmon) 200 unit/actuation nasal spray RxNorm: 209178 1 [place] NASAL daily ONE SPRAY PER ONE NOSTRIL DAILY- ALTERNATE NOSTRILS DAILY 05/31/2016 07/30/2016 Inactive x3 months- no refills Forteo 20 mcg/dose (600 mcg/2.4 mL) subcutaneous pen injector RxNorm: 4326562 1 injection SQ daily 05/22/2016 05/30/2016 Inactive call pt with jaramillo first Forteo 20 mcg/dose (600 mcg/2.4 mL) subcutaneous pen injector RxNorm: 4510821 1 injection SQ daily 05/22/2016 05/21/2016 Inactive Prolia 60 mg/mL subcutaneous syringe RxNorm: 622629 1 Milliliter(s) SQ every 6 months 05/13/2016 07/21/2018 Inactive Please check jaramillo through insurance and let me know- Thanks! Mary Ellen alprazolam 1 mg tablet RxNorm: 086872 1 Tablet(s) PO TID 05/08/2016 11/01/2016 Inactive Lexapro 10 mg tablet RxNorm: 493585 TAKE 1 TABLET EVERY DAY 04/22/2016 08/20/2016 Inactive spironolactone 25 mg tablet RxNorm: 325064 TAKE 1 TABLET EVERY DAY 04/22/2016 11/03/2016 Inactive Diflucan 150 mg tablet RxNorm: 840654 1 Tablet(s) PO daily 03/20/2016 04/14/2016 Inactive Diflucan 150 mg tablet RxNorm: 033320 1 Tablet(s) PO daily 03/20/2016 03/19/2016 Inactive Augmentin 500 mg-125 mg tablet RxNorm: 122404 1 Tablet(s) PO TID 03/14/2016 03/23/2016 Inactive omeprazole 20 mg capsule,delayed release RxNorm: 531159 1 Tablet(s) PO BID 03/06/2016 09/01/2016 Inactive [SAVINGS FOR NON-COVERED DRUGS -- BIN:904231, PCN: ASPROD1, Group: XXXXX, ID# [id number], Questions: . THIS IS NOT INSURANCE.] amlodipine 5 mg tablet RxNorm: 614227 TAKE 1 TABLET EVERY DAY 03/01/2016 04/22/2016 Inactive omeprazole 20 mg tablet,delayed release RxNorm: 383237 1 Tablet(s) PO BID 02/27/2016 03/05/2016 Inactive [SAVINGS FOR NON-COVERED DRUGS -- BIN:256313, PCN: ASPROD1, Group: XXXXX, ID# XXXXXXX, Questions: . THIS IS NOT INSURANCE.] spironolactone 25 mg tablet RxNorm: 570316 TAKE 1 TABLET EVERY DAY 12/21/2015 04/21/2016 Inactive Lexapro 10 mg tablet RxNorm: 255114 1 Tablet(s) PO daily 12/19/2015 01/01/2016 Inactive Lexapro 10 mg tablet RxNorm: 561924 1 Tablet(s) PO daily 12/19/2015 02/09/2017 Inactive Lexapro 10 mg tablet RxNorm: 042469 1 Tablet(s) PO daily 12/19/2015 12/18/2015 Inactive alprazolam 1 mg tablet RxNorm: 215962 1 Tablet(s) PO TID 12/01/2015 02/28/2016 Inactive ibuprofen 800 mg tablet RxNorm: 136169 1 Tablet(s) PO TID 10/26/2015 10/20/2016 Inactive alprazolam 1 mg tablet RxNorm: 864632 1 Tablet(s) PO TID 08/23/2015 07/21/2018 Inactive spironolactone 25 mg tablet RxNorm: 123310 1 Tablet(s) PO daily 08/21/2015 12/20/2015 Inactive metoprolol tartrate 50 mg tablet RxNorm: 268365 1 Tablet(s) PO BID 08/10/2015 08/03/2016 Inactive [SAVINGS FOR NON-COVERED DRUGS -- BIN:256797, PCN: ASPROD1, Group: XXXXX, ID# [id number], Questions: . THIS IS NOT INSURANCE.] omeprazole 20 mg tablet,delayed release RxNorm: 827064 1 Tablet(s) PO BID 08/07/2015 02/02/2016 Inactive [SAVINGS FOR NON-COVERED DRUGS -- BIN:503697, PCN: ASPROD1, Group: XXXXX, ID# XXXXXXX, Questions: . THIS IS NOT INSURANCE.] Keflex 500 mg capsule RxNorm: 621671 1 Capsule(s) PO TID 07/10/2015 07/16/2015 Inactive alprazolam 1 mg tablet RxNorm: 685535 1 Tablet(s) PO TID 06/02/2015 08/22/2015 Inactive alprazolam 1 mg tablet RxNorm: 273262 1 Tablet(s) PO TID 03/29/2015 06/01/2015 Inactive amlodipine 5 mg tablet RxNorm: 318384 1 Tablet(s) PO daily 03/06/2015 02/29/2016 Inactive Nasonex 50 mcg/actuation [place] RxNorm: 376440 1 [place] NASAL daily 03/03/2015 03/02/2015 Inactive Keflex 500 mg capsule RxNorm: 093400 1 Capsule(s) PO TID 03/03/2015 03/02/2015 Inactive Nasonex 50 mcg/actuation [place] RxNorm: 502122 1 [place] NASAL daily 03/03/2015 05/01/2015 Inactive Keflex 500 mg capsule RxNorm: 134436 1 Capsule(s) PO TID 03/03/2015 03/05/2015 Inactive Carafate 1 gram tablet RxNorm: 878927 TAKE 1 TABLET FOUR TIMES DAILY 30 MINUTES BEFORE MEALS AND AT BEDTIME 02/28/2015 12/18/2015 Inactive Kenalog 40 mg/mL suspension for injection RxNorm: 8037556 Milliliter(s) Inj 02/07/2015 02/07/2015 Inactive [SAVINGS FOR NON-COVERED DRUGS -- BIN:891065, PCN: ASPROD1, Group: XXXXX, ID# XXXXXXX, Questions: . THIS IS NOT INSURANCE.] metoprolol tartrate 50 mg tablet RxNorm: 421782 1 Tablet(s) PO BID 02/07/2015 08/09/2015 Inactive [SAVINGS FOR NON-COVERED DRUGS -- BIN:153807, PCN: ASPROD1, Group: XXXXX, ID# XXXXXXX, Questions: . THIS IS NOT INSURANCE.] Carafate 1 gram tablet RxNorm: 286445 1 Tablet(s) PO QID 02/07/2015 02/27/2015 Inactive 30 min before meals and at bedtime omeprazole 20 mg tablet,delayed release RxNorm: 685738 1 Tablet(s) PO BID 02/07/2015 08/05/2015 Inactive [SAVINGS FOR NON-COVERED DRUGS -- BIN:838736, PCN: ASPROD1, Group: XXXXX, ID# [id number], Questions: . THIS IS NOT INSURANCE.] Vitamin D3 2,000 unit tablet RxNorm: 888148 1 Tablet(s) PO daily No Start Date Active aspirin 81 mg tablet RxNorm: 693176 1 Tablet(s) PO daily No Start Date Active amlodipine 2.5 mg tablet RxNorm: 296409 1 Tablet(s) PO daily No Start Date 03/05/2015 Inactive spironolactone 25 mg tablet RxNorm: 467939 1 Tablet(s) PO daily No Start Date 08/20/2015 Inactive cetirizine 10 mg tablet RxNorm: 2093090 1 Tablet(s) PO daily No Start Date 12/18/2015 Inactive metoprolol tartrate 50 mg tablet RxNorm: 301397 1 Tablet(s) PO daily No Start Date 02/06/2015 Inactive ipratropium bromide 0.06 % nasal spray RxNorm: 628386 nasal No Start Date 12/18/2015 Inactive alprazolam 1 mg tablet RxNorm: 249233 1 Tablet(s) PO TID No Start Date 03/28/2015 Inactive Prolia 60 mg/mL subcutaneous syringe RxNorm: 247744 1 Milliliter(s) SQ every 6 months No Start Date 05/12/2016 Inactive Please check jaramillo through insurance and let me know- Thanks! Mary Ellen ibuprofen 800 mg tablet RxNorm: 179507 1 Tablet(s) PO TID No Start Date 10/25/2015 Inactive Protonix 40 mg tablet,delayed release RxNorm: 525077 1 Tablet(s) PO daily No Start Date 03/05/2015 Inactive Vitamin B-12 1,000 mcg/mL injection solution RxNorm: 811650 1 Milliliter(s) Inj Q2 weeks x2 months and then monthly injections No Start Date 05/20/2018 Inactive loratadine 10 mg tablet RxNorm: 235049 1 Tablet(s) PO daily No Start Date 07/21/2018 Inactive Medication Administered Medication Codes Instructions Start Date Status cyanocobalamin (vit B-12) 1,000 mcg/mL injection solution RxNorm: 698249 Milliliter 12/22/2018 No longer Active cyanocobalamin (vit B-12) 1,000 mcg/mL injection solution RxNorm: 582953 1Milliliter 10/01/2018 No longer Active Kenalog 40 mg/mL suspension for injection RxNorm: 6790490 Milliliter 09/15/2018 No longer Active cyanocobalamin (vit B-12) 1,000 mcg/mL injection solution RxNorm: 197484 1Milliliter 09/15/2018 No longer Active cyanocobalamin (vit B-12) 1,000 mcg/mL injection solution RxNorm: 293939 Milliliter 08/04/2018 No longer Active cyanocobalamin (vit B-12) 1,000 mcg/mL injection solution RxNorm: 030403 1Milliliter 07/16/2018 No longer Active cyanocobalamin (vit B-12) 1,000 mcg/mL injection solution RxNorm: 639020 Milliliter 07/01/2018 No longer Active cyanocobalamin (vit B-12) 1,000 mcg/mL injection solution RxNorm: 163765 Milliliter 06/15/2018 No longer Active cyanocobalamin (vit B-12) 1,000 mcg/mL injection solution RxNorm: 376924 Milliliter 06/02/2018 No longer Active cyanocobalamin (vit B-12) 1,000 mcg/mL injection solution RxNorm: 416153 Milliliter 05/21/2018 No longer Active Kenalog 40 mg/mL suspension for injection RxNorm: 2463585 1.5Milliliter 04/09/2018 No longer Active Kenalog 40 mg/mL suspension for injection RxNorm: 5912710 1Milliliter 10/16/2017 No longer Active Kenalog 40 mg/mL suspension for injection RxNorm: 5576225 Milliliter 02/07/2015 No longer Active Immunizations Vaccine [...] Item Item Code Result Date Comp Metabolic Ypw785 NA 138 mEq/L 09/03/2017 Comp Metabolic Qhh884 K 3.9 mEq/L 09/03/2017 Comp Metabolic Kuc781 CL 102 mEq/L 09/03/2017 Comp Metabolic Nci079 CO2 32.0 mEq/L 09/03/2017 Comp Metabolic Mvz740 ANION GAP 8 09/03/2017 Comp Metabolic Rks051 GLUCOSE 89 mg/dL 09/03/2017 Comp Metabolic Ros949 Creat 0.6 mg/dL 09/03/2017 Comp Metabolic Lwa829 eGFR 103 ml/min/1.73m2 09/03/2017 Comp Metabolic Kuh487 BUN 10 mg/dL 09/03/2017 Comp Metabolic Bku790 B/C Ratio 16.7 Ratio 09/03/2017 Comp Metabolic Ldw197 CALCIUM 8.9 mg/dL 09/03/2017 Comp Metabolic Rsc505 ALK PHOS 141 U/L 09/03/2017 Comp Metabolic Uih261 AST(SGOT) 12 U/L 09/03/2017 Comp Metabolic Vqc926 ALT(SGPT) 7 U/L 09/03/2017 Comp Metabolic Yjf969 BILI T 0.6 mg/dL 09/03/2017 Comp Metabolic Jbk301 ALBUMIN 3.6 g/dL 09/03/2017 Comp Metabolic Awb978 TPRO 6.6 g/dL 09/03/2017 Comp Metabolic Aot629 GLOB 3.0 g/dL 09/03/2017 Comp Metabolic Ath653 A/G Ratio 1.2 Ratio 09/03/2017 Comp Metabolic Alg498 Osmo 274 mOsmo 09/03/2017 Hepatic Qzc382 ALBUMIN 3.7 g/dL 08/11/2017 Hepatic Dfu862 TPRO 7.0 g/dL 08/11/2017 Hepatic Vur110 GLOB 3.3 g/dL 08/11/2017 Hepatic Igy821 A/G Ratio 1.1 Ratio 08/11/2017 Hepatic Hzy280 ALK PHOS 85 U/L 08/11/2017 Hepatic Tkl259 ALT(SGPT) 11 U/L 08/11/2017 Hepatic Twn539 AST(SGOT) 16 U/L 08/11/2017 Hepatic Ajz504 BILI T 0.6 mg/dL 08/11/2017 Hepatic Kmy477 BILI D 0.1 mg/dL 08/11/2017 Hepatic Yoc935 BILI I 0.5 mg/dL 08/11/2017 Hepatic Mrw505 ALBUMIN 3.1 g/dL 07/18/2017 Hepatic Pbe612 TPRO 5.9 g/dL 07/18/2017 Hepatic Sxa322 GLOB 2.8 g/dL 07/18/2017 Hepatic Kxv695 A/G Ratio 1.1 Ratio 07/18/2017 Hepatic Dnh100 ALK PHOS 123 U/L 07/18/2017 Hepatic Jpd023 ALT(SGPT) 210 U/L 07/18/2017 Hepatic Kkv627 AST(SGOT) 71 U/L 07/18/2017 Hepatic Lqu165 BILI T 1.1 mg/dL 07/18/2017 Hepatic Moo250 BILI D 0.4 mg/dL 07/18/2017 Hepatic Hme168 BILI I 0.7 mg/dL 07/18/2017 Cbc With [...] 32.4 pg 02/25/2017 Cbc With Differential Ord2 [place]% 7.6 % 02/25/2017 Cbc With Differential Ord2 [...] 1.22 K/ul 02/25/2017 Cbc With Differential Ord2 [place] ABS# 0.4 K/ul 02/25/2017 Cbc With Differential [...] 32.3 pg 01/02/2017 Cbc With Differential Ord2 [place]% 7.8 % 01/02/2017 Cbc With Differential Ord2 [...] 0.90 K/ul 01/02/2017 Cbc With Differential Ord2 [place] ABS# 0.4 K/ul 01/02/2017 Cbc With Differential Ord2 Eos ABS# 0.3 K/ul 01/02/2017 Cbc With Differential Ord2 Baso ABS# 0.0 K/ul 01/02/2017 Lipid Ord30 CHOL 139 mg/dL 12/13/2016 Lipid Ord30 HDL 48.0 mg/dl 12/13/2016 Lipid Ord30 TRIG 84 mg/dL 12/13/2016 Lipid Ord30 LDL 74 mg/dL 12/13/2016 Lipid Ord30 C/HDL 2.9 Ratio 12/13/2016 Comp Metabolic Cga824 NA 137 mEq/L 12/13/2016 Comp Metabolic Asp176 K 4.8 mEq/L 12/13/2016 Comp Metabolic Rdn197 CL 101 mEq/L 12/13/2016 Comp Metabolic Bbd053 CO2 32.0 mEq/L 12/13/2016 Comp Metabolic Ajp402 ANION GAP 9 12/13/2016 Comp Metabolic Ikr843 GLUCOSE 95 mg/dL 12/13/2016 Comp Metabolic Xzf203 Creat 0.8 mg/dL 12/13/2016 Comp Metabolic Phv539 eGFR 79 ml/min/1.73m2 12/13/2016 Comp Metabolic Zmd015 BUN 15 mg/dL 12/13/2016 Comp Metabolic Cft736 B/C Ratio 19.7 Ratio 12/13/2016 Comp Metabolic Ewu012 CALCIUM 9.3 mg/dL 12/13/2016 Comp Metabolic Upp662 ALK PHOS 63 U/L 12/13/2016 Comp Metabolic Oie080 AST(SGOT) 15 U/L 12/13/2016 Comp Metabolic Qoh008 ALT(SGPT) 10 U/L 12/13/2016 Comp Metabolic Yzg841 BILI T 0.7 mg/dL 12/13/2016 Comp Metabolic Nlk247 ALBUMIN 3.7 g/dL 12/13/2016 Comp Metabolic Hme373 TPRO 6.8 g/dL 12/13/2016 Comp Metabolic Uev917 GLOB 3.2 g/dL 12/13/2016 Comp Metabolic Npk771 A/G Ratio 1.2 Ratio 12/13/2016 Comp Metabolic Lmr657 Osmo 274 mOsmo 12/13/2016 Cbc With Differential [...] 31.9 pg 12/13/2016 Cbc With Differential Ord2 [place]% 9.9 % 12/13/2016 Cbc With Differential Ord2 [...] 1.17 K/ul 12/13/2016 Cbc With Differential Ord2 [place] ABS# 0.4 K/ul 12/13/2016 Cbc With Differential [...] 32.1 pg 12/19/2015 Cbc With Differential Ord2 [place]% 5.9 % 12/19/2015 Cbc With Differential Ord2 [...] 1.53 K/ul 12/19/2015 Cbc With Differential Ord2 [place] ABS# 0.3 K/ul 12/19/2015 Cbc With Differential [...] Ord30 C/HDL 2.8 Ratio 12/19/2015 Comp Metabolic Agt070 NA 135 mEq/L 12/19/2015 Comp Metabolic Xmn909 K 4.1 mEq/L 12/19/2015 Comp Metabolic Tvy855 CL 99 mEq/L 12/19/2015 Comp Metabolic Jhu679 CO2 27.0 mEq/L 12/19/2015 Comp Metabolic Mmu674 ANION GAP 13 12/19/2015 Comp Metabolic Zqg792 GLUCOSE 83 mg/dL 12/19/2015 Comp Metabolic Tii258 Creat 0.7 mg/dL 12/19/2015 Comp Metabolic Key893 eGFR 88 ml/min/1.73m2 12/19/2015 Comp Metabolic Uqr865 BUN 12 mg/dL 12/19/2015 Comp Metabolic Mbz352 B/C Ratio 17.4 Ratio 12/19/2015 Comp Metabolic Gql153 CALCIUM 9.0 mg/dL 12/19/2015 Comp Metabolic Mxj582 ALK PHOS 68 U/L 12/19/2015 Comp Metabolic Gjk072 AST(SGOT) 16 U/L 12/19/2015 Comp Metabolic Emb852 ALT(SGPT) 13 U/L 12/19/2015 Comp Metabolic Luz275 BILI T 0.7 mg/dL 12/19/2015 Comp Metabolic Amf605 ALBUMIN 4.0 g/dL 12/19/2015 Comp Metabolic Foe010 TPRO 7.0 g/dL 12/19/2015 Comp Metabolic Mts819 GLOB 3.0 g/dL 12/19/2015 Comp Metabolic Eee502 A/G Ratio 1.3 Ratio 12/19/2015 Comp Metabolic Dde994 Osmo 269 mOsmo 12/19/2015 Review of Systems [...] 4: G0439 12/30/2018 THER/PROPH/DIAG INJ SC/IM CPT-4: 89393 12/22/2018 VITAMIN B12 INJECTION CPT- 4: J3420 12/22/2018 THER/PROPH/DIAG INJ SC/IM CPT-4: 15506 10/01/2018 VITAMIN B12 INJECTION CPT- 4: J3420 10/01/2018 THER/PROPH/DIAG INJ SC/IM CPT-4: 10258 09/15/2018 VITAMIN B12 INJECTION CPT- 4: J3420 09/15/2018 TRIAMCINOLONE ACET INJ NOS CPT-4: J3301 09/15/2018 THER/PROPH/DIAG INJ SC/IM CPT-4: 99727 08/04/2018 VITAMIN B12 INJECTION CPT- 4: J3420 08/04/2018 THER/PROPH/DIAG INJ SC/IM CPT-4: 87293 07/16/2018 VITAMIN B12 INJECTION CPT- 4: J3420 07/16/2018 THER/PROPH/DIAG INJ SC/IM CPT-4: 78311 07/01/2018 VITAMIN B12 INJECTION CPT- 4: J3420 07/01/2018 ADMIN INFLUENZA VIRUS VAC CPT-4: G0008 06/25/2018 FLU VACC PRSV FREE INC ANTIG Formatting Model/CDA Sections, Assigned to/Miranda Ayala CPT-4: [id number] 06/25/2018 THER/PROPH/DIAG INJ SC/IM CPT-4: 03516 06/15/2018 VITAMIN B12 INJECTION CPT- 4: J3420 06/15/2018 THER/PROPH/DIAG INJ SC/IM CPT-4: 77983 06/02/2018 VITAMIN B12 INJECTION CPT- 4: J3420 06/02/2018 THER/PROPH/DIAG INJ SC/IM CPT-4: 63423 05/21/2018 VITAMIN B12 INJECTION CPT- 4: J3420 05/21/2018 TRIAMCINOLONE ACET INJ NOS CPT-4: J3301 04/09/2018 PPPS, SUBSEQ VISIT CPT- 4: G0439 12/18/2017 TRIAMCINOLONE ACET INJ NOS CPT-4: J3301 10/16/2017 DRAIN/INJECT JOINT/BURSA CPT-4: 86090 10/16/2017 PRESCRIP TRANSMIT VIA ERX SY CPT-4: G8553 05/05/2017 PRESCRIP TRANSMIT VIA ERX SY CPT-4: G8553 01/14/2017 PPPS, SUBSEQ VISIT CPT- 4: G0439 12/12/2016 PRESCRIP TRANSMIT VIA ERX SY CPT-4: G8553 10/15/2016 ADMIN PNEUMOCOCCAL VACCINE SNOMED CT: [id number] CPT-4: G0009 08/28/2016 Pneumococcal Polysaccharide Vaccine, 23-Valent, Ad CPT-4: 45894 08/28/2016 PRESCRIP TRANSMIT VIA ERX SY CPT-4: G8553 03/14/2016 PRESCRIP TRANSMIT VIA ERX SY CPT-4: G8553 12/19/2015 THER/PROPH/DIAG INJ SC/IM CPT-4: 23628 02/07/2015 TRIAMCINOLONE ACET INJ NOS CPT-4: J3301 02/07/2015 Vital Signs Date Vital 12/30/2018 Blood Pressure 1: 112/68 Code: 8480-6 BMI: 24.0 Code: 07105-1 Heart Rate 1: 66 bpm Height: 5'1" SpO2: 96% Weight: 127 lbs 12/22/2018 Blood Pressure 1: 110/72 Code: 8480-6 BMI: 24.0 Code: 15262-5 Heart Rate 1: 64 bpm Height: 5'1" SpO2: 95% Weight: 127 lbs 09/15/2018 Blood Pressure 1: 106/70 Code: 8480-6 BMI: 24.9 Code: 62947-2 Heart Rate 1: 74 bpm Height: 5'1" SpO2: 95% Weight: 132 lbs 08/18/2018 Blood Pressure 1: 128/70 Code: 8480-6 BMI: 25.1 Code: 46928-2 Heart Rate 1: 74 bpm Height: 5'1" SpO2: 95% Weight: 133 lbs 08/04/2018 Blood Pressure 1: 120/80 Code: 8480-6 Blood Pressure 1: 122/80 Code: 8480-6 Blood Pressure 2: 120/82 Code: 8480-6 BMI: 25.5 Code: 51955-1 Heart Rate 1: 63 bpm Heart Rate 1: 67 bpm Height: 5'1" Weight: 135 lbs Weight: 07/22/2018 Blood Pressure 1: 120/82 Code: 8480-6 BMI: 24.9 Code: 06825-0 Heart Rate 1: 64 bpm Height: 5'1" SpO2: 95% Weight: 132 lbs 04/21/2018 Blood Pressure 1: 108/70 Code: 8480-6 BMI: 24.4 Code: 70897-1 Heart Rate 1: 62 bpm Height: 5'1" SpO2: 94% Weight: 129 lbs 04/09/2018 Blood Pressure 1: 138/86 Code: 8480-6 BMI: 25.5 Code: 80649-4 Heart Rate 1: 64 bpm Height: 5'1" SpO2: 99% Temperature: 36.4 (C) / 97.5 (F) Weight: 135 lbs 01/19/2018 Blood Pressure 1: 128/76 Code: 8480-6 BMI: 25.9 Code: 94023-8 Heart Rate 1: 65 bpm Height: 5'1" SpO2: 98% Weight: 137 lbs 12/18/2017 Blood Pressure 1: 144/82 Code: 8480-6 BMI: 26.1 Code: 31723-0 Heart Rate 1: 57 bpm Height: 5'1" SpO2: 97% Waist Measure (cm): 74 cm Weight: 138 lbs 10/16/2017 Blood Pressure 1: 142/88 Code: 8480-6 BMI: 25.5 Code: 37630-1 Heart Rate 1: 63 bpm Height: 5'1" SpO2: 97% Weight: 135 lbs 09/03/2017 Blood Pressure 1: 144/90 Code: 8480-6 BMI: 26.3 Code: 48490-4 Heart Rate 1: 91 bpm Height: 5'1" SpO2: 96% Weight: 139 lbs 07/31/2017 Blood Pressure 1: 136/90 Code: 8480-6 BMI: 26.3 Code: 88854-4 Height: 5'1" Weight: 139 lbs 07/18/2017 Blood Pressure 1: 136/84 Code: 8480-6 06/16/2017 Blood Pressure 1: 136/84 Code: 8480-6 BMI: 26.5 Code: 87170-7 Heart Rate 1: 72 bpm Height: 5'1" SpO2: 97% Weight: 140 lbs 05/28/2017 Blood Pressure 1: 138/78 Code: 8480-6 BMI: 26.1 Code: 06927-0 Heart Rate 1: 70 bpm Height: 5'1" SpO2: 98% Weight: 138 lbs 05/05/2017 Blood Pressure 1: 140/86 Code: 8480-6 BMI: 25.3 Code: 12434-8 Heart Rate 1: 66 bpm Height: 5'1" SpO2: 99% Weight: 134 lbs 03/13/2017 Blood Pressure 1: 126/74 Code: 8480-6 BMI: 25.3 Code: 49571-5 Heart Rate 1: 73 bpm Height: 5'1" SpO2: 98% Weight: 134 lbs 02/10/2017 Blood Pressure 1: 148/88 Code: 8480-6 BMI: 25.9 Code: 21914-7 Heart Rate 1: 84 bpm Height: 5'1" SpO2: 97% Weight: 137 lbs 01/14/2017 Blood Pressure 1: 134/86 Code: 8480-6 BMI: 25.7 Code: 54383-0 Heart Rate 1: 83 bpm Height: 5'1" SpO2: 95% Weight: 136 lbs 01/07/2017 Blood Pressure 1: 136/88 Code: 8480-6 BMI: 25.1 Code: 21803-2 Heart Rate 1: 86 bpm Height: 5'1" SpO2: 94% Weight: 133 lbs 01/02/2017 Blood Pressure 1: 122/68 Code: 8480-6 Blood Pressure 2: 116/78 Code: 8480-6 01/01/2017 Blood Pressure 1: 90/52 Code: 8480-6 BMI: 25.1 Code: 93064- 5 Heart Rate 1: 86 bpm Height: 5'1" SpO2: 99% Weight: 133 lbs 12/20/2016 Blood Pressure 1: 120/76 Code: 8480-6 12/12/2016 Blood Pressure 1: 130/72 Code: 8480-6 BMI: 24.8 Code: 91025-6 Heart Rate 1: 62 bpm Height: 5'1" SpO2: 98% Waist Measure (cm): 79 cm Weight: 131 lbs 12/11/2016 Blood Pressure 1: 132/70 Code: 8480-6 BMI: 24.8 Code: 56083-4 Heart Rate 1: 60 bpm Height: 5'1" Weight: 131 lbs 10/15/2016 Blood Pressure 1: 108/66 Code: 8480-6 BMI: 24.8 Code: 73346-3 Heart Rate 1: 60 bpm Height: 5'1" Weight: 131 lbs 07/17/2016 Blood Pressure 1: 128/82 Code: 8480-6 BMI: 25.3 Code: 99457-0 Heart Rate 1: 50 bpm Height: 5'2" Weight: 136 lbs 05/15/2016 Blood Pressure 1: 108/70 Code: 8480-6 BMI: 23.4 Code: 85149-4 Heart Rate 1: 54 bpm Height: 5'2" SpO2: 96% Weight: 126 lbs 04/23/2016 Blood Pressure 1: 112/60 Code: 8480-6 BMI: 23.6 Code: 69243-0 Heart Rate 1: 92 bpm Height: 5'2" SpO2: 95% Weight: 127 lbs 03/14/2016 Blood Pressure 1: 118/74 Code: 8480-6 BMI: 24.0 Code: 34202-9 Heart Rate 1: 51 bpm Height: 5'2" SpO2: 94% Temperature: 36.8 (C) / 98.3 (F) Weight: 129 lbs 02/19/2016 Blood Pressure 1: 110/62 Code: 8480-6 BMI: 23.4 Code: 54150-2 Heart Rate 1: 74 bpm Height: 5'2" SpO2: 97% Weight: 126 lbs 12/19/2015 Blood Pressure 1: 108/74 Code: 8480-6 BMI: 23.6 Code: 41194-0 Heart Rate 1: 52 bpm Height: 5'2" Weight: 127 lbs 03/06/2015 Blood Pressure 1: 136/88 Code: 8480-6 Heart Rate 1: 64 bpm Weight: 129 lbs 02/07/2015 Blood Pressure 1: 142/90 Code: 8480-6 BMI: 24.5 Code: 66045-6 Heart Rate 1: 82 bpm Height: 5'2" [...] data Encounters Encounter Performer Location Codes Date ([id number]) 58026 EST. PATIENT, LEVEL IV Diagnosis: Other vitamin B12 deficiency anemias[ICD10: D51.8] Kim Burden MD, [facility] CPT-4: 53044 12/22/2018 ([id number]) 96498 EST. PATIENT, LEVEL IV Diagnosis: Chest pain, unspecified[ICD10: R07.9] Diagnosis: Other vitamin B12 deficiency anemias[ICD10: D51.8] Diagnosis: Other allergic rhinitis[ICD10: J30.89] Mallorie Burden MD, [facility] CPT-4: 70515 09/15/2018 ([id number]) 38250 EST. PATIENT, LEVEL III Diagnosis: Essential (primary) hypertension[ICD10: I10] Diagnosis: Fecal urgency[ICD10: R15.2] Kim Burden MD, [facility] CPT-4: 15016 08/18/2018 ([id number]) 36550 EST. PATIENT, LEVEL IV Diagnosis: Other vitamin B12 deficiency anemias[ICD10: D51.8] Diagnosis: Essential (primary) hypertension[ICD10: I10] Diagnosis: Major depressive disorder, recurrent, mild[ICD10: F33.0] Diagnosis: Unsteadiness on feet[ICD10: R26.81] Kim Burden MD, [facility] CPT- 4: 08738 08/04/2018 ([id number]) 19294 EST. PATIENT, LEVEL IV Diagnosis: Fecal urgency[ICD10: R15.2] Diagnosis: Generalized abdominal pain[ICD10: R10.84] Diagnosis: Essential (primary) hypertension[ICD10: I10] Kim Burden MD, [facility] CPT-4: 77317 07/22/2018 ([id number]) 55861 EST. PATIENT, LEVEL IV Diagnosis: Essential (primary) hypertension[ICD10: I10] Diagnosis: Other emphysema[ICD10: J43.8] Diagnosis: Candidal stomatitis[ICD10: B37.0] Kim Burden MD, [facility] CPT- 4: 90966 04/21/2018 ([id number]) 39885 EST. PATIENT, LEVEL III Diagnosis: Chronic obstructive pulmonary disease with (acute) exacerbation[ICD10: J44.1] Mallorie Burden MD, [facility] CPT-4: 17792 04/09/2018 ([id number]) 59887 EST. PATIENT, LEVEL IV Diagnosis: Essential (primary) hypertension[ICD10: I10] Diagnosis: Other emphysema[ICD10: J43.8] Kim Burden MD, [facility] CPT-4: 68112 01/19/2018 ([id number]) 54275 EST. PATIENT, LEVEL IV Diagnosis: Essential (primary) hypertension[ICD10: I10] Diagnosis: Other emphysema[ICD10: J43.8] Diagnosis: Dependence on supplemental oxygen[ICD10: Z99.81] Diagnosis: Hypoxemia[ICD10: R09.02] Diagnosis: Pain in left knee[ICD10: M25.562] Diagnosis: Effusion, left knee[ICD10: M25.462] Kim Burden MD, [facility] CPT- 4: 67878 10/16/2017 81178 EST. PATIENT, LEVEL III Diagnosis: Pain in thoracic spine[ICD10: M54.6] Pebbles Burden MD, [facility] CPT- 4: 17009 09/03/2017 ([id number]) 86096 EST. PATIENT, LEVEL III Diagnosis: Essential (primary) hypertension[ICD10: I10] Diagnosis: Other emphysema[ICD10: J43.8] Kim Burden MD, [facility] CPT-4: 02047 07/31/2017 ([id number]) Miscellaneous no charge Diagnosis: Essential (primary) hypertension[ICD10: I10] Mallorie Burden MD, [facility] CPT-4: 41951 07/18/2017 ([id number]) 91105 EST. PATIENT, LEVEL III Diagnosis: Pain in left knee[ICD10: M25.562] Diagnosis: Effusion, left knee[ICD10: M25.462] Mallorie Burden MD, [facility] CPT-4: 93437 06/16/2017 ([id number]) 39377 EST. PATIENT, LEVEL III Diagnosis: Essential (primary) hypertension[ICD10: I10] Diagnosis: Unsteadiness on feet[ICD10: R26.81] Kim Burden MD, [facility] CPT- 4: 53475 05/28/2017 ([id number]) 79616 EST. PATIENT, LEVEL IV Diagnosis: Essential (primary) hypertension[ICD10: I10] Diagnosis: Chronic obstructive pulmonary disease with acute lower respiratory infection[ICD10: J44.0] Kim Burden MD, [facility] CPT-4: 30608 05/05/2017 ([id number]) 38014 EST. PATIENT, LEVEL IV Diagnosis: Essential (primary) hypertension[ICD10: I10] Diagnosis: Major depressive disorder, recurrent, mild[ICD10: F33.0] Kim Burden MD [facility] CPT-4: 83330 03/13/2017 ([id number]) 82848 EST. PATIENT, LEVEL IV Diagnosis: Essential (primary) hypertension[ICD10: I10] Diagnosis: Gastro-esophageal reflux disease without esophagitis[ICD10: K21.9] Diagnosis: Chronic obstructive pulmonary disease, unspecified[ICD10: J44.9] Kim Burden MD [facility] CPT-4: 77982 02/10/2017 ([id number]) 24771 EST. PATIENT, LEVEL IV Diagnosis: Essential (primary) hypertension[ICD10: I10] Diagnosis: Gastro-esophageal reflux disease without esophagitis[ICD10: K21.9] Diagnosis: Chronic obstructive pulmonary disease with acute lower respiratory infection[ICD10: J44.0] Kim Burden MD [facility] CPT-4: 47826 01/14/2017 63389 EST. PATIENT, LEVEL IV Diagnosis: Other fatigue[ICD10: R53.83] Diagnosis: Other malaise[ICD10: R53.81] Diagnosis: Headache[ICD10: R51] Diagnosis: Palpitations[ICD10: R00.2] Diagnosis: Dehydration[ICD10: E86.0] Pebbles Burden MD [facility] CPT-4: 86409 01/07/2017 ([id number]) Miscellaneous no charge Diagnosis: Essential (primary) hypertension[ICD10: I10] Pebbles Burden MD [facility] CPT-4: 45579 01/02/2017 65657 EST. PATIENT, LEVEL IV Diagnosis: Chronic obstructive pulmonary disease, unspecified[ICD10: J44.9] Diagnosis: Essential (primary) hypertension[ICD10: I10] Diagnosis: Other fatigue[ICD10: R53.83] Pebbles Burden MD [facility] CPT-4: 77124 01/01/2017 ([id number]) Miscellaneous no charge Diagnosis: Essential (primary) hypertension[ICD10: I10] Pebbles Burden MD [facility] CPT-4: 56770 12/20/2016 ([id number]) 39997 EST. 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 PATIENT, LEVEL IV Diagnosis: Essential (primary) hypertension[ICD10: I10] Diagnosis: Other allergic rhinitis[ICD10: J30.89] Diagnosis: Gastro-esophageal reflux disease without esophagitis[ICD10: K21.9] Kim Burden MD, [facility] CPT-4: 87210 10/15/2016 ([id number]) 95758 EST. 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 PATIENT, LEVEL III Diagnosis: Pain in left hip[ICD10: M25.552] Diagnosis: Acute laryngopharyngitis[ICD10: J06.0] Kim Burden MD, [facility] CPT-4: 74424 05/15/2016 ([id number]) 35459 EST. PATIENT, LEVEL III Diagnosis: Fracture of unspecified parts of lumbosacral spine and pelvis, initial encounter for closed fracture[ICD10: S32.9XXA] Diagnosis: Essential (primary) hypertension[ICD10: I10] Kim Burden MD, [facility] CPT-4: 82977 04/23/2016 10717 EST. PATIENT, LEVEL IV Diagnosis: Acute laryngopharyngitis[ICD10: J06.0] Diagnosis: Other allergic rhinitis[ICD10: J30.89] Pebbles Burden MD, [facility] CPT- 4: 29191 03/14/2016 [id number] EST. PATIENT, LEVEL IV Diagnosis: Dysuria[ICD10: R30.0] Diagnosis: Left lower quadrant pain[ICD10: R10.32] Pebbles Burden MD, [facility] CPT-4: 56194 02/19/2016 ([id number]) 90574 EST. PATIENT, LEVEL IV Diagnosis: Essential (primary) hypertension[ICD10: I10] Diagnosis: Gastro-esophageal reflux disease without esophagitis[ICD10: K21.9] Diagnosis: Major depressive disorder, recurrent, mild[ICD10: F33.0] Kim Burden MD, [facility] CPT-4: 57064 12/19/2015 ([id number]) 29211 EST. PATIENT, LEVEL IV Diagnosis: ESSENTIAL HYPERTENSION[ICD9: 401.9] Diagnosis: ACUTE URI[ICD9: 465.9] [facility] CPT-4: 50032 03/06/2015 ([id number]) OFFICE VISIT, NEW - LEVEL 4 Diagnosis: ESOPHAGEAL REFLUX[ICD9: 530.81] Diagnosis: ESSENTIAL HYPERTENSION[ICD9: 401.9] Diagnosis: COPD (chronic obstructive pulmonary disease)[ICD9: 496] Diagnosis: ALLERGIC RHINITIS[ICD9: 477.9] Mallorie Burden MD, [facility] CPT-4: 10359 02/07/2015 Plan of Care Planned Activity Notes [...] Summary Completed 12/30/2018 Appointment: Mallorie Wetzel WPtel: [address] [place], [place] [phone] [facility] - Annual Wellness Visit 12/28/2018 [...] b12 injection. 12/22/2018 Appointment: Kim Burden WPtel: [facility] (15 min) Moderate 12/22/2018 Patient Education: Patient [...] the office 09/15/2018 Appointment: Mallorie Wetzel WPtel: [phone] (30 min) Complex 09/15/2018 Patient Education: Patient Medication Summary Completed 09/15/2018 Care Plan: Referral Order SNOMED-CT : [id number] Pending 09/15/2018 Appointment: Kim Burden WPtel: [facility] (15 min) Moderate 08/25/2018 Visit Plan: Hypertension [...] day. 08/18/2018 App[facility]ment: [phone] (15 min) Moderate 08/18/2018 Patient Education: Patient [...] anxiolytic. 08/04/2018 Appointment: [phone] [facility] (15 min) Moderate 08/04/2018 Appointment: Nurse Visit [...] home. 07/22/2018 Appointment: [phone] [place] (15 min) Moderate 07/22/2018 Patient Education: [...] swallow. 04/21/2018 Appointment: [phone] [facility] [place] (15 min) Moderate 04/21/2018 Patient Education: [...] changes. 04/09/2018 Appointment: Mallorie Wetzel WPtel: [phone] (30 min) Complex 04/09/2018 Patient Education: Patient [...] acute changes. 01/19/2018 Appointment: Kim Burden WPtel: [facility] (15 min) Moderate 01/19/2018 Patient Education: Patient Medication Summary Completed 01/19/2018 Appointment: Kim Burden WPtel: [facility] (15 min) Moderate 01/14/2018 Visit Plan: Medicare [...] surrogate. 12/18/2017 [facility]ment[phone] [facility] [facility] - Annual Wellness Visit 12/18/2017 [...] home. 10/16/2017 Appointment: [phone] [facility] (15 min) Moderate 10/16/2017 Patient Education: Patient [...] or concerns. 09/03/2017 Appointment: [facility]ebbles Lund [phone] (15 min) Moderate 09/03/2017 Patient Education: Patient Medication Summary Completed 09/03/2017 Appointment: Kim Burden WPtel: [phone] [facility] (15 min) Moderate 08/11/2017 Appointment: Kim Burden WPtel[facility] (15 min) Moderate 08/11/2017 Patient Education: Patient [...] treatment. 07/31/2017 Appointment: [phone] [facility] [place] (15 min) Moderate 07/31/2017 Patient Education: Patient Medication Summary Completed 07/31/2017 Appointment: Nurse Visit 07/18/2017 Patient Education: Patient Medication Summary Completed 07/18/2017 Patient Education: Patient Medication Summary Completed 07/18/2017 Appointment: Kim Burden WPtel: [phone] [facility] [place] (15 min) Moderate 06/30/2017 Visit Plan: Effusion left knee-fall 2 weeks ago-recommend compression of joint and refer to Ortho for evaluation and treatment-will refer to Dr Pryor/Quinton Mccormick. Patient verbalized understanding of plan. 06/16/2017 Appointment: Mallorie Wetzel WPtel: [phone] [phone] [place] (30 min) Complex 06/16/2017 Patient Education: [...] active. 05/28/2017 Appointment: Kim Burden WPtel: [phone] [facility] (15 min) Moderate 05/28/2017 Patient Education: Patient [...] acute changes. 05/05/2017 Appointment: [phone] [facility] [place] (15 min) Moderate 05/05/2017 Patient Education: [...] medications. 03/13/2017 Appointment: Kim Burden WPtel: [phone] [facility] (15 min) Moderate 03/13/2017 Patient Education: Patient [...] worsening. 02/10/2017 Appointment: Kim Burden WPtel: [phone] [facility] (15 min) Moderate 02/10/2017 Patient Education: Patient [...] improving. 01/14/2017 Appointment: Kim Burden WPtel: [phone] [facility] (15 min) Moderate 01/14/2017 Patient Education: Patient [...] concerns. 01/07/2017 Appointment: [facility]ebbles Lund [facility]el[phone] (30 min) Complex 01/07/2017 Patient Education: Patient [...] pressures. 01/01/2017 Appointment: [facility]ebbles Lund [facility]el[phone] [facility] (30 min) Complex 01/01/2017 Patient Education: Patient [...] surrogate. 12/12/2016 Appointment: Pebbles Lund [facility]Ptel[phone] [facility] [facility] - Annual Wellness Visit 12/12/2016 [...] this time. 12/11/2016 Appointment: Kim Burden WPtel: [phone] [facility] (15 min) Moderate 12/11/2016 Patient Education: Patient Medication Summary Completed 12/11/2016 Appointment: Mallorie Wetzel WPtel: [phone] [phone] [place] (30 min) Complex 12/10/2016 Visit Plan: [...] not improving. 10/15/2016 Appointment: Kim Burden WPtel: [phone] [facility] (15 min) Moderate 10/15/2016 Patient Education: Patient [...] restaurant. 07/17/2016 Appointment: Kim Burden WPtel: [facility] (15 min) Moderate 07/17/2016 Patient Education: Patient Medication Summary Completed 07/17/2016 Appointment: Kim Burden WPtel: [facility] (15 min) Moderate 06/10/2016 Visit Plan: Hip pain - persistent but improving - continue with current treatment plan. Pt to call if her symptoms are not improving or if her hip pain worsens. URI symptoms - supportive care, use otc allergy medications. 05/15/2016 Appointment: Kim Burden WPtel: [facility]66[facility] (15 min) Moderate 05/15/2016 Patient Education: Patient [...] improving. 04/23/2016 Appointment: Kim Burden WPtel: [facility] (15 min) Moderate 04/23/2016 Patient Education: Patient Medication Summary Completed 04/23/2016 Patient Education: Hypertension Completed 04/23/2016 Care Plan: X-RAY EXAM OF ABDOMEN LOINC : 43871-8 Pending 03/18/2016 Visit Plan: URI - Pt [...] spray. 03/14/2016 Appointment: Pebbles Lund WPtel: [phone] [facility] (30 min) Complex 03/14/2016 Patient Education: Patient Medication Summary Completed 03/14/2016 Patient Education: Patient Medication Summary Completed 02/29/2016 Visit Plan: Flank pain - pt is currently being treated for UTI, but is having continued left flank pain - will get KUB - pt is to notify clinic if symptoms do not improve, or with any concerns. 02/19/2016 Appointment: Pebbles Lund WPtel: [phone] [facility] (30 min) Complex 02/19/2016 Patient Education: Patient Medication Summary Completed 02/19/2016 Appointment: Kim Burden WPtel: [phone] [facility] (15 min) Moderate 01/22/2016 Visit Plan: Hypertension [...] improving. 12/19/2015 Appointment: [phone] [place] (15 min) Moderate 12/19/2015 Patient Education: Patient [...] Finish RX. 03/06/2015 Appointment: Kim Burden WPtel: [address] [place], [place] [address] Follow up 03/06/2015 Patient Education: Patient Medication [...] Completed 02/07/2015 Care Plan: SCREENINGMAMMOGRAPHYDIGITAL LOINC : 61583-5 Ordered 02/07/2015 Care Plan: COMPLETE CBC AUTOMATED LOINC : 13743-8 Ordered 02/07/2015 Referral: Consuelo Chavez Referral Appointment [...] to help decrease GI upset./loose stools - [employer] or [employer] . Hypertension - well controlled - continue [...] care surrogate. TAKE WITH [employer] ([employer] OR [email or web address]) . URI - Pt advised to increase [...]
--- OUTSIDE RECORDS SUMMARY | 2019-04-06 08:47 | XMS REPORT | CCD ---
Author Author Mallorie Wetzel MD, [facility] Address [address] [place] [address] Phone Care Team Providers Care Larriman Name Role Phone PP Unavailable CCM Unavailable Summary Purpose Interface Exchange Insurance Providers Payer name Policy type / Coverage type Covered republican ID Effective Begin Date Effective End Date WPS Medicare Part B Medicare Part B [id number] 2018 Unknown AETNA Medicare Part B [id number] Unknown Family history Brother Diagnosis Age At [...] Unknown 3 02/07/[address]: 6053897 Quit over 10 years ago 199302/07/2015 Number [...] Fill Instructions Lexapro 20 mg tablet RxNorm: 935315 Tablet(s) PO TAKE 1 TABLET EVERY DAY 01/07/2019 01/01/2020 Active mupirocin 2 % topical ointment RxNorm: 127176 1 Application TOP BID 12/30/2018 No Stop Date Active cyanocobalamin (vit B-12) 1,000 mcg/mL injection solution RxNorm: 123448 Milliliter(s) Inj 12/22/2018 12/22/2018 Inactive metoprolol tartrate 50 mg tablet RxNorm: 891921 1/2 Tablet(s) PO BID 11/06/2018 10/31/2019 Active alprazolam 1 mg tablet RxNorm: 464070 1/2 Tablet(s) PO TID 11/06/2018 08/02/2019 Active ibuprofen 800 mg tablet RxNorm: 071745 Tablet(s) TAKE 1 TABLET THREE TIMES DAILY 11/06/2018 10/31/2019 Active losartan 100 mg tablet RxNorm: 495405 Tablet(s) TAKE 1 TABLET EVERY EVENING 11/06/2018 10/31/2019 Active Lexapro 10 mg tablet RxNorm: 718092 Tablet(s) TAKE 1 TABLET EVERY DAY 11/06/2018 01/06/2019 Inactive cyanocobalamin (vit B-12) 1,000 mcg/mL injection solution RxNorm: 273107 1 Milliliter(s) Inj 10/01/2018 10/01/2018 Inactive ibuprofen 800 mg tablet RxNorm: 645241 TAKE 1 TABLET THREE TIMES DAILY 09/28/2018 11/05/2018 Inactive cyanocobalamin (vit B-12) 1,000 mcg/mL injection solution RxNorm: 544081 1 Milliliter(s) Inj 09/15/2018 09/15/2018 Inactive Kenalog 40 mg/mL suspension for injection RxNorm: 7748545 Milliliter(s) Inj 09/15/2018 09/15/2018 Inactive alprazolam 1 mg tablet RxNorm: 530671 1/2 Tablet(s) PO TID 08/10/2018 11/05/2018 Inactive cyanocobalamin (vit B-12) 1,000 mcg/mL injection solution RxNorm: 576687 Milliliter(s) Inj 08/04/2018 08/04/2018 Inactive alprazolam 1 mg tablet RxNorm: 772510 1/2 Tablet(s) PO BID 08/04/2018 08/09/2018 Inactive cholestyramine (with sugar) 4 gram powder for susp in a packet RxNorm: 480756 1/2 to 1 packet PO TID take 30 minutes before meals 07/22/2018 12/21/2018 Inactive cyanocobalamin (vit B-12) 1,000 mcg/mL injection solution RxNorm: 063403 1 Milliliter(s) Inj 07/16/2018 07/16/2018 Inactive omeprazole 20 mg capsule,delayed release RxNorm: 847070 Capsule(s) TAKE 1 CAPSULE TWICE DAILY 07/01/2018 06/25/2019 Active cyanocobalamin (vit B-12) 1,000 mcg/mL injection solution RxNorm: 421570 Milliliter(s) Inj 07/01/2018 07/01/2018 Inactive omeprazole 20 mg capsule,delayed release RxNorm: 209980 TAKE 1 CAPSULE TWICE DAILY 07/01/2018 06/30/2018 Inactive alprazolam 1 mg tablet RxNorm: 299079 1 Tablet(s) PO TID 07/01/2018 08/03/2018 Inactive cyanocobalamin (vit B-12) 1,000 mcg/mL injection solution RxNorm: 778771 Milliliter(s) Inj 06/15/2018 06/15/2018 Inactive cyanocobalamin (vit B-12) 1,000 mcg/mL injection solution RxNorm: 753531 Milliliter(s) Inj 06/02/2018 06/02/2018 Inactive fluticasone 50 mcg/actuation nasal spray,suspension RxNorm: 3183441 1 Bureau NASAL BID 05/26/2018 05/20/2019 Active Vitamin B-12 1,000 mcg/mL injection solution RxNorm: 236036 1 Milliliter(s) Inj Q2 weeks x2 months and then monthly injections 05/21/2018 No Stop Date Active cyanocobalamin (vit B-12) 1,000 mcg/mL injection solution RxNorm: 964645 Milliliter(s) Inj 05/21/2018 05/21/2018 Inactive fluticasone 50 mcg/actuation nasal spray,suspension RxNorm: 1024840 1 Bureau NASAL BID 05/19/2018 05/25/2018 Inactive fluticasone 50 mcg/actuation nasal spray,suspension RxNorm: 4471375 1 Bureau NASAL BID 05/18/2018 05/18/2018 Inactive fluticasone 50 mcg/actuation nasal spray,suspension RxNorm: 3916099 1 Bureau NASAL BID 05/15/2018 05/17/2018 Inactive fluticasone 50 mcg/actuation nasal spray,suspension RxNorm: 3336841 1 Bureau NASAL BID 05/15/2018 05/14/2018 Inactive nystatin 100,000 unit/mL oral suspension RxNorm: 783615 5 Milliliter(s) PO QID 04/21/2018 04/30/2018 Inactive Breo Ellipta 100 mcg-25 mcg/dose powder for inhalation RxNorm: 7134994 1 INH daily 04/09/2018 04/03/2019 Active please call patient with jaramillo before sending prednisone 20 mg tablet RxNorm: 591072 1 Tablet(s) PO BID 04/09/2018 04/13/2018 Inactive start tomorrow Kenalog 40 mg/mL suspension for injection RxNorm: 0877026 1.5 Milliliter(s) Inj 04/09/2018 04/09/2018 Inactive Breo Ellipta 100 mcg-25 mcg/dose powder for inhalation RxNorm: 0222205 1 INH daily 04/09/2018 04/08/2018 Inactive alprazolam 1 mg tablet RxNorm: 102734 1 Tablet(s) PO TID 03/13/2018 06/30/2018 Inactive losartan 100 mg tablet RxNorm: 043894 TAKE 1 TABLET EVERY EVENING 03/02/2018 11/05/2018 Inactive Ventolin HFA 90 mcg/actuation aerosol inhaler RxNorm: 266845 2 INH Q4-6H as needed 12/29/2017 02/26/2018 Inactive Ventolin HFA 90 mcg/actuation aerosol inhaler RxNorm: 899425 2 INH Q4-6H as needed 12/29/2017 12/28/2017 Inactive Diflucan 150 mg tablet RxNorm: 366270 1 Tablet(s) PO daily 11/03/2017 11/05/2017 Inactive please call pt to let herknow when to pick- up the med Keflex 500 mg capsule RxNorm: 899223 1 Capsule(s) PO TID 10/23/2017 10/29/2017 Inactive Kenalog 40 mg/mL suspension for injection RxNorm: 8784665 1 Milliliter(s) Inj 10/16/2017 10/16/2017 Inactive ibuprofen 800 mg tablet RxNorm: 921560 TAKE 1 TABLET THREE TIMES DAILY 10/15/2017 09/27/2018 Inactive Lexapro 10 mg tablet RxNorm: 551342 TAKE 1 TABLET EVERY DAY 10/15/2017 10/09/2018 Inactive hydrocodone 5 mg-acetaminophen 325 mg tablet RxNorm: 301237 1 Tablet(s) PO QID as needed 09/03/2017 07/21/2018 Inactive omeprazole 20 mg capsule,delayed release RxNorm: 389325 1 Capsule(s) PO BID 09/02/2017 06/30/2018 Inactive alprazolam 1 mg tablet RxNorm: 683658 1 Tablet(s) PO TID 09/02/2017 03/12/2018 Inactive metoprolol tartrate 50 mg tablet RxNorm: 447582 1/2 Tablet(s) PO BID 06/26/2017 06/20/2018 Inactive omeprazole 20 mg capsule,delayed release RxNorm: 866962 1 Capsule(s) PO BID 06/05/2017 09/01/2017 Inactive omeprazole 20 mg capsule,delayed release RxNorm: 334505 1 Capsule(s) PO BID 05/28/2017 06/04/2017 Inactive omeprazole 20 mg capsule,delayed release RxNorm: 149383 1 Capsule(s) PO QPM 05/27/2017 05/27/2017 Inactive Breo Ellipta 100 mcg-25 mcg/dose powder for inhalation RxNorm: 2183800 1 INH daily 05/05/2017 04/08/2018 Inactive alprazolam 1 mg tablet RxNorm: 738303 1 Tablet(s) PO TID 02/10/2017 08/07/2017 Inactive metoprolol tartrate 50 mg tablet RxNorm: 651547 1/2 Tablet(s) PO BID 02/10/2017 06/25/2017 Inactive losartan 100 mg tablet RxNorm: 220118 1 Tablet(s) PO QPM 02/10/2017 02/04/2018 Inactive losartan 50 mg tablet RxNorm: 511989 2 Tablet(s) PO QPM 01/23/2017 02/09/2017 Inactive Diflucan 150 mg tablet RxNorm: 294649 1 Tablet(s) PO daily 01/20/2017 01/22/2017 Inactive please call pt to let herknow when to pick- up the med Diflucan 150 mg tablet RxNorm: 382868 1 Tablet(s) PO daily 01/20/2017 01/19/2017 Inactive please call pt to let herknow when to pick- up the med losartan 50 mg tablet RxNorm: 726149 1 Tablet(s) PO QPM 01/14/2017 01/22/2017 Inactive Cipro 500 mg tablet RxNorm: 413054 1 Tablet(s) PO BID 01/08/2017 01/17/2017 Inactive Cipro 500 mg tablet RxNorm: 110953 1 Tablet(s) PO BID 01/08/2017 01/07/2017 Inactive Lexapro 10 mg tablet RxNorm: 039950 TAKE 1 TABLET EVERY DAY 12/20/2016 10/14/2017 Inactive metoprolol tartrate 50 mg tablet RxNorm: 724856 1 Tablet(s) PO in the morning and 1.5 pill at night 12/11/2016 01/13/2017 Inactive spironolactone 25 mg tablet RxNorm: 097816 TAKE 1 TABLET EVERY DAY 11/04/2016 07/21/2018 Inactive metoprolol tartrate 50 mg tablet RxNorm: 150299 TAKE 1 TABLET TWICE DAILY 10/29/2016 12/10/2016 Inactive ibuprofen 800 mg tablet RxNorm: 222859 TAKE 1 TABLET THREE TIMES DAILY 10/21/2016 10/14/2017 Inactive Astepro 0.15 % (205.5 mcg) nasal spray RxNorm: 2241879 1 Bureau NASAL BID 10/15/2016 10/14/2016 Inactive Astepro 0.15 % (205.5 mcg) nasal spray RxNorm: 2395208 1 Bureau NASAL BID 10/15/2016 07/21/2018 Inactive Astepro 0.15 % (205.5 mcg) nasal spray RxNorm: 4791594 1 Bureau NASAL BID 10/15/2016 10/14/2016 Inactive omeprazole 20 mg capsule,delayed release RxNorm: 971295 1 Capsule(s) PO QPM 10/15/2016 05/26/2017 Inactive omeprazole 20 mg capsule,delayed release RxNorm: 922290 1 Capsule(s) QPM 10/15/2016 10/14/2016 Inactive omeprazole 20 mg capsule,delayed release RxNorm: 352621 TAKE 1 CAPSULE TWICE DAILY 09/02/2016 10/14/2016 Inactive Lexapro 10 mg tablet RxNorm: 845749 TAKE 1 TABLET EVERY DAY 08/21/2016 12/19/2016 Inactive calcitonin (salmon) 200 unit/actuation nasal spray RxNorm: 639833 1 Bureau NASAL daily ONE SPRAY PER ONE NOSTRIL DAILY- ALTERNATE NOSTRILS DAILY 05/31/2016 05/30/2016 Inactive She will do this for 3 months- If she wants to do a 3 month supply at one time she can without refill calcitonin (salmon) 200 unit/actuation nasal spray RxNorm: 608130 1 Bureau NASAL daily ONE SPRAY PER ONE NOSTRIL DAILY- ALTERNATE NOSTRILS DAILY 05/31/2016 07/30/2016 Inactive x3 months- no refills Forteo 20 mcg/dose (600 mcg/2.4 mL) subcutaneous pen injector RxNorm: 6925916 1 injection SQ daily 05/22/2016 05/30/2016 Inactive call pt with jaramillo first Forteo 20 mcg/dose (600 mcg/2.4 mL) subcutaneous pen injector RxNorm: 3727514 1 injection SQ daily 05/22/2016 05/21/2016 Inactive Prolia 60 mg/mL subcutaneous syringe RxNorm: 508730 1 Milliliter(s) SQ every 6 months 05/13/2016 07/21/2018 Inactive Please check jaramillo through insurance and let me know- Thanks! Mary Ellen alprazolam 1 mg tablet RxNorm: 882723 1 Tablet(s) PO TID 05/08/2016 11/01/2016 Inactive Lexapro 10 mg tablet RxNorm: 427394 TAKE 1 TABLET EVERY DAY 04/22/2016 08/20/2016 Inactive spironolactone 25 mg tablet RxNorm: 957997 TAKE 1 TABLET EVERY DAY 04/22/2016 11/03/2016 Inactive Diflucan 150 mg tablet RxNorm: 144107 1 Tablet(s) PO daily 03/20/2016 04/14/2016 Inactive Diflucan 150 mg tablet RxNorm: 477578 1 Tablet(s) PO daily 03/20/2016 03/19/2016 Inactive Augmentin 500 mg-125 mg tablet RxNorm: 926438 1 Tablet(s) PO TID 03/14/2016 03/23/2016 Inactive omeprazole 20 mg capsule,delayed release RxNorm: 983254 1 Tablet(s) PO BID 03/06/2016 09/01/2016 Inactive [SAVINGS FOR NON-COVERED DRUGS -- BIN:210019, PCN: ASPROD1, Group: XXXXX, ID# XXXXXXX, Questions: . THIS IS NOT INSURANCE.] amlodipine 5 mg tablet RxNorm: 978862 TAKE 1 TABLET EVERY DAY 03/01/2016 04/22/2016 Inactive omeprazole 20 mg tablet,delayed release RxNorm: 926881 1 Tablet(s) PO BID 02/27/2016 03/05/2016 Inactive [SAVINGS FOR NON-COVERED DRUGS -- BIN:151156, PCN: ASPROD1, Group: XXXXX, ID# XXXXXXX, Questions: . THIS IS NOT INSURANCE.] spironolactone 25 mg tablet RxNorm: 076221 TAKE 1 TABLET EVERY DAY 12/21/2015 04/21/2016 Inactive Lexapro 10 mg tablet RxNorm: 910728 1 Tablet(s) PO daily 12/19/2015 01/01/2016 Inactive Lexapro 10 mg tablet RxNorm: 429239 1 Tablet(s) PO daily 12/19/2015 02/09/2017 Inactive Lexapro 10 mg tablet RxNorm: 786289 1 Tablet(s) PO daily 12/19/2015 12/18/2015 Inactive alprazolam 1 mg tablet RxNorm: 333608 1 Tablet(s) PO TID 12/01/2015 02/28/2016 Inactive ibuprofen 800 mg tablet RxNorm: 307065 1 Tablet(s) PO TID 10/26/2015 10/20/2016 Inactive alprazolam 1 mg tablet RxNorm: 699428 1 Tablet(s) PO TID 08/23/2015 07/21/2018 Inactive spironolactone 25 mg tablet RxNorm: 447695 1 Tablet(s) PO daily 08/21/2015 12/20/2015 Inactive metoprolol tartrate 50 mg tablet RxNorm: 226920 1 Tablet(s) PO BID 08/10/2015 08/03/2016 Inactive [SAVINGS FOR NON-COVERED DRUGS -- BIN:123332, PCN: ASPROD1, Group: XXXXX, ID# XXXXXXX, Questions: . THIS IS NOT INSURANCE.] omeprazole 20 mg tablet,delayed release RxNorm: 375961 1 Tablet(s) PO BID 08/07/2015 02/02/2016 Inactive [SAVINGS FOR NON-COVERED DRUGS -- BIN:722575, PCN: ASPROD1, Group: XXXXX, ID# XXXXXXX, Questions: . THIS IS NOT INSURANCE.] Keflex 500 mg capsule RxNorm: 118016 1 Capsule(s) PO TID 07/10/2015 07/16/2015 Inactive alprazolam 1 mg tablet RxNorm: 539958 1 Tablet(s) PO TID 06/02/2015 08/22/2015 Inactive alprazolam 1 mg tablet RxNorm: 549136 1 Tablet(s) PO TID 03/29/2015 06/01/2015 Inactive amlodipine 5 mg tablet RxNorm: 692922 1 Tablet(s) PO daily 03/06/2015 02/29/2016 Inactive Nasonex 50 mcg/actuation Bureau RxNorm: 204657 1 Bureau NASAL daily 03/03/2015 03/02/2015 Inactive Keflex 500 mg capsule RxNorm: 796006 1 Capsule(s) PO TID 03/03/2015 03/02/2015 Inactive Nasonex 50 mcg/actuation Bureau RxNorm: 847224 1 Bureau NASAL daily 03/03/2015 05/01/2015 Inactive Keflex 500 mg capsule RxNorm: 840729 1 Capsule(s) PO TID 03/03/2015 03/05/2015 Inactive Carafate 1 gram tablet RxNorm: 009880 TAKE 1 TABLET FOUR TIMES DAILY 30 MINUTES BEFORE MEALS AND AT BEDTIME 02/28/2015 12/18/2015 Inactive Kenalog 40 mg/mL suspension for injection RxNorm: 6093517 Milliliter(s) Inj 02/07/2015 02/07/2015 Inactive [SAVINGS FOR NON-COVERED DRUGS -- BIN:669067, PCN: ASPROD1, Group: XXXXX, ID# XXXXXXX, Questions: . THIS IS NOT INSURANCE.] metoprolol tartrate 50 mg tablet RxNorm: 974692 1 Tablet(s) PO BID 02/07/2015 08/09/2015 Inactive [SAVINGS FOR NON-COVERED DRUGS -- BIN:524810, PCN: ASPROD1, Group: XXXXX, ID# XXXXXXX, Questions: . THIS IS NOT INSURANCE.] Carafate 1 gram tablet RxNorm: 333786 1 Tablet(s) PO QID 02/07/2015 02/27/2015 Inactive 30 min before meals and at bedtime omeprazole 20 mg tablet,delayed release RxNorm: 090986 1 Tablet(s) PO BID 02/07/2015 08/05/2015 Inactive [SAVINGS FOR NON-COVERED DRUGS -- BIN:235341, PCN: ASPROD1, Group: XXXXX, ID# XXXXXXX, Questions: . THIS IS NOT INSURANCE.] Vitamin D3 2,000 unit tablet RxNorm: 643264 1 Tablet(s) PO daily No Start Date Active aspirin 81 mg tablet RxNorm: 538950 1 Tablet(s) PO daily No Start Date Active amlodipine 2.5 mg tablet RxNorm: 725934 1 Tablet(s) PO daily No Start Date 03/05/2015 Inactive spironolactone 25 mg tablet RxNorm: 200026 1 Tablet(s) PO daily No Start Date 08/20/2015 Inactive cetirizine 10 mg tablet RxNorm: 1006297 1 Tablet(s) PO daily No Start Date 12/18/2015 Inactive metoprolol tartrate 50 mg tablet RxNorm: 436342 1 Tablet(s) PO daily No Start Date 02/06/2015 Inactive ipratropium bromide 0.06 % nasal spray RxNorm: 150415 nasal No Start Date 12/18/2015 Inactive alprazolam 1 mg tablet RxNorm: 474880 1 Tablet(s) PO TID No Start Date 03/28/2015 Inactive Prolia 60 mg/mL subcutaneous syringe RxNorm: 700674 1 Milliliter(s) SQ every 6 months No Start Date 05/12/2016 Inactive Please check jaramillo through insurance and let me know- Thanks! Mary Ellen ibuprofen 800 mg tablet RxNorm: 551495 1 Tablet(s) PO TID No Start Date 10/25/2015 Inactive Protonix 40 mg tablet,delayed release RxNorm: 178077 1 Tablet(s) PO daily No Start Date 03/05/2015 Inactive Vitamin B-12 1,000 mcg/mL injection solution RxNorm: 670235 1 Milliliter(s) Inj Q2 weeks x2 months and then monthly injections No Start Date 05/20/2018 Inactive loratadine 10 mg tablet RxNorm: 666539 1 Tablet(s) PO daily No Start Date 07/21/2018 Inactive Medication Administered Medication Codes Instructions Start Date Status cyanocobalamin (vit B-12) 1,000 mcg/mL injection solution RxNorm: 795213 Milliliter 12/22/2018 No longer Active cyanocobalamin (vit B-12) 1,000 mcg/mL injection solution RxNorm: 855243 1Milliliter 10/01/2018 No longer Active Kenalog 40 mg/mL suspension for injection RxNorm: 8714248 Milliliter 09/15/2018 No longer Active cyanocobalamin (vit B-12) 1,000 mcg/mL injection solution RxNorm: 632727 1Milliliter 09/15/2018 No longer Active cyanocobalamin (vit B-12) 1,000 mcg/mL injection solution RxNorm: 763119 Milliliter 08/04/2018 No longer Active cyanocobalamin (vit B-12) 1,000 mcg/mL injection solution RxNorm: 075441 1Milliliter 07/16/2018 No longer Active cyanocobalamin (vit B-12) 1,000 mcg/mL injection solution RxNorm: 352785 Milliliter 07/01/2018 No longer Active cyanocobalamin (vit B-12) 1,000 mcg/mL injection solution RxNorm: 570854 Milliliter 06/15/2018 No longer Active cyanocobalamin (vit B-12) 1,000 mcg/mL injection solution RxNorm: 206515 Milliliter 06/02/2018 No longer Active cyanocobalamin (vit B-12) 1,000 mcg/mL injection solution RxNorm: 862914 Milliliter 05/21/2018 No longer Active Kenalog 40 mg/mL suspension for injection RxNorm: 7973700 1.5Milliliter 04/09/2018 No longer Active Kenalog 40 mg/mL suspension for injection RxNorm: 2382395 1Milliliter 10/16/2017 No longer Active Kenalog 40 mg/mL suspension for injection RxNorm: 8088945 Milliliter 02/07/2015 No longer Active Immunizations Vaccine [...] Item Item Code Result Date Comp Metabolic Kyi565 NA 138 mEq/L 09/03/2017 Comp Metabolic Pwv751 K 3.9 mEq/L 09/03/2017 Comp Metabolic Dxf338 CL 102 mEq/L 09/03/2017 Comp Metabolic Wvk880 CO2 32.0 mEq/L 09/03/2017 Comp Metabolic Jmv861 ANION GAP 8 09/03/2017 Comp Metabolic Irh838 GLUCOSE 89 mg/dL 09/03/2017 Comp Metabolic Rvs261 Creat 0.6 mg/dL 09/03/2017 Comp Metabolic Zfc504 eGFR 103 ml/min/1.73m2 09/03/2017 Comp Metabolic Qdo910 BUN 10 mg/dL 09/03/2017 Comp Metabolic Nfv557 B/C Ratio 16.7 Ratio 09/03/2017 Comp Metabolic Hac875 CALCIUM 8.9 mg/dL 09/03/2017 Comp Metabolic Kgq950 ALK PHOS 141 U/L 09/03/2017 Comp Metabolic Eug446 AST(SGOT) 12 U/L 09/03/2017 Comp Metabolic Pgy311 ALT(SGPT) 7 U/L 09/03/2017 Comp Metabolic Khc447 BILI T 0.6 mg/dL 09/03/2017 Comp Metabolic Yfu701 ALBUMIN 3.6 g/dL 09/03/2017 Comp Metabolic Wgm774 TPRO 6.6 g/dL 09/03/2017 Comp Metabolic Gei485 GLOB 3.0 g/dL 09/03/2017 Comp Metabolic Dtu004 A/G Ratio 1.2 Ratio 09/03/2017 Comp Metabolic Hai743 Osmo 274 mOsmo 09/03/2017 Hepatic Kps636 ALBUMIN 3.7 g/dL 08/11/2017 Hepatic Kby632 TPRO 7.0 g/dL 08/11/2017 Hepatic Uut841 GLOB 3.3 g/dL 08/11/2017 Hepatic Hge649 A/G Ratio 1.1 Ratio 08/11/2017 Hepatic Trg741 ALK PHOS 85 U/L 08/11/2017 Hepatic Ods676 ALT(SGPT) 11 U/L 08/11/2017 Hepatic Ucd485 AST(SGOT) 16 U/L 08/11/2017 Hepatic Xiq455 BILI T 0.6 mg/dL 08/11/2017 Hepatic Iku400 BILI D 0.1 mg/dL 08/11/2017 Hepatic Ibx018 BILI I 0.5 mg/dL 08/11/2017 Hepatic Ajn015 ALBUMIN 3.1 g/dL 07/18/2017 Hepatic Tik910 TPRO 5.9 g/dL 07/18/2017 Hepatic Kzf865 GLOB 2.8 g/dL 07/18/2017 Hepatic Wbm130 A/G Ratio 1.1 Ratio 07/18/2017 Hepatic Kol727 ALK PHOS 123 U/L 07/18/2017 Hepatic Iun416 ALT(SGPT) 210 U/L 07/18/2017 Hepatic Wtv449 AST(SGOT) 71 U/L 07/18/2017 Hepatic Plc508 BILI T 1.1 mg/dL 07/18/2017 Hepatic Wdv447 BILI D 0.4 mg/dL 07/18/2017 Hepatic Mth363 BILI I 0.7 mg/dL 07/18/2017 Cbc With [...] 32.4 pg 02/25/2017 Cbc With Differential Ord2 [place]% 7.6 % 02/25/2017 Cbc With Differential Ord2 [...] 1.22 K/ul 02/25/2017 Cbc With Differential Ord2 [place] ABS# 0.4 K/ul 02/25/2017 Cbc With Differential [...] 32.3 pg 01/02/2017 Cbc With Differential Ord2 [place]% 7.8 % 01/02/2017 Cbc With Differential Ord2 [...] 0.90 K/ul 01/02/2017 Cbc With Differential Ord2 [place] ABS# 0.4 K/ul 01/02/2017 Cbc With Differential Ord2 Eos ABS# 0.3 K/ul 01/02/2017 Cbc With Differential Ord2 Baso ABS# 0.0 K/ul 01/02/2017 Lipid Ord30 CHOL 139 mg/dL 12/13/2016 Lipid Ord30 HDL 48.0 mg/dl 12/13/2016 Lipid Ord30 TRIG 84 mg/dL 12/13/2016 Lipid Ord30 LDL 74 mg/dL 12/13/2016 Lipid Ord30 C/HDL 2.9 Ratio 12/13/2016 Comp Metabolic Jsw143 NA 137 mEq/L 12/13/2016 Comp Metabolic Vsb346 K 4.8 mEq/L 12/13/2016 Comp Metabolic Nvn279 CL 101 mEq/L 12/13/2016 Comp Metabolic Nvn448 CO2 32.0 mEq/L 12/13/2016 Comp Metabolic Mcz517 ANION GAP 9 12/13/2016 Comp Metabolic Kfe099 GLUCOSE 95 mg/dL 12/13/2016 Comp Metabolic Wzu215 Creat 0.8 mg/dL 12/13/2016 Comp Metabolic Qvy831 eGFR 79 ml/min/1.73m2 12/13/2016 Comp Metabolic Vpb336 BUN 15 mg/dL 12/13/2016 Comp Metabolic Swm278 B/C Ratio 19.7 Ratio 12/13/2016 Comp Metabolic Igx973 CALCIUM 9.3 mg/dL 12/13/2016 Comp Metabolic Cgm763 ALK PHOS 63 U/L 12/13/2016 Comp Metabolic Nwh591 AST(SGOT) 15 U/L 12/13/2016 Comp Metabolic Wbn347 ALT(SGPT) 10 U/L 12/13/2016 Comp Metabolic Ptn097 BILI T 0.7 mg/dL 12/13/2016 Comp Metabolic Ysh207 ALBUMIN 3.7 g/dL 12/13/2016 Comp Metabolic Bsf016 TPRO 6.8 g/dL 12/13/2016 Comp Metabolic Hdj814 GLOB 3.2 g/dL 12/13/2016 Comp Metabolic Exz358 A/G Ratio 1.2 Ratio 12/13/2016 Comp Metabolic Mhk506 Osmo 274 mOsmo 12/13/2016 Cbc With Differential [...] 31.9 pg 12/13/2016 Cbc With Differential Ord2 [place]% 9.9 % 12/13/2016 Cbc With Differential Ord2 [...] 1.17 K/ul 12/13/2016 Cbc With Differential Ord2 [place] ABS# 0.4 K/ul 12/13/2016 Cbc With Differential [...] 32.1 pg 12/19/2015 Cbc With Differential Ord2 [place]% 5.9 % 12/19/2015 Cbc With Differential Ord2 [...] 1.53 K/ul 12/19/2015 Cbc With Differential Ord2 [place] ABS# 0.3 K/ul 12/19/2015 Cbc With Differential [...] Ord30 C/HDL 2.8 Ratio 12/19/2015 Comp Metabolic Giq859 NA 135 mEq/L 12/19/2015 Comp Metabolic Mde948 K 4.1 mEq/L 12/19/2015 Comp Metabolic Koz440 CL 99 mEq/L 12/19/2015 Comp Metabolic Shc196 CO2 27.0 mEq/L 12/19/2015 Comp Metabolic Fcn446 ANION GAP 13 12/19/2015 Comp Metabolic Utd763 GLUCOSE 83 mg/dL 12/19/2015 Comp Metabolic Spb169 Creat 0.7 mg/dL 12/19/2015 Comp Metabolic Mca116 eGFR 88 ml/min/1.73m2 12/19/2015 Comp Metabolic Bjp912 BUN 12 mg/dL 12/19/2015 Comp Metabolic Uli174 B/C Ratio 17.4 Ratio 12/19/2015 Comp Metabolic Tco572 CALCIUM 9.0 mg/dL 12/19/2015 Comp Metabolic Bdu832 ALK PHOS 68 U/L 12/19/2015 Comp Metabolic Emf916 AST(SGOT) 16 U/L 12/19/2015 Comp Metabolic Boz905 ALT(SGPT) 13 U/L 12/19/2015 Comp Metabolic Dds250 BILI T 0.7 mg/dL 12/19/2015 Comp Metabolic Mvm888 ALBUMIN 4.0 g/dL 12/19/2015 Comp Metabolic Udp320 TPRO 7.0 g/dL 12/19/2015 Comp Metabolic Bpi267 GLOB 3.0 g/dL 12/19/2015 Comp Metabolic Fau956 A/G Ratio 1.3 Ratio 12/19/2015 Comp Metabolic Udg176 Osmo 269 mOsmo 12/19/2015 Review of Systems [...] 4: G0439 12/30/2018 THER/PROPH/DIAG INJ SC/IM CPT-4: 02759 12/22/2018 VITAMIN B12 INJECTION CPT- 4: J3420 12/22/2018 THER/PROPH/DIAG INJ SC/IM CPT-4: 12078 10/01/2018 VITAMIN B12 INJECTION CPT- 4: J3420 10/01/2018 THER/PROPH/DIAG INJ SC/IM CPT-4: 04262 09/15/2018 VITAMIN B12 INJECTION CPT- 4: J3420 09/15/2018 TRIAMCINOLONE ACET INJ NOS CPT-4: J3301 09/15/2018 THER/PROPH/DIAG INJ SC/IM CPT-4: 39810 08/04/2018 VITAMIN B12 INJECTION CPT- 4: J3420 08/04/2018 THER/PROPH/DIAG INJ SC/IM CPT-4: 89499 07/16/2018 VITAMIN B12 INJECTION CPT- 4: J3420 07/16/2018 THER/PROPH/DIAG INJ SC/IM CPT-4: 27524 07/01/2018 VITAMIN B12 INJECTION CPT- 4: J3420 07/01/2018 ADMIN INFLUENZA VIRUS VAC CPT-4: G0008 06/25/2018 FLU VACC PRSV FREE INC ANTIG Formatting Model/CDA Sections, Assigned to/Miranda Ayala CPT-4: 02163Gwdmzdy 06/25/2018 THER/PROPH/DIAG INJ SC/IM CPT-4: 11690 06/15/2018 VITAMIN B12 INJECTION CPT- 4: J3420 06/15/2018 THER/PROPH/DIAG INJ SC/IM CPT-4: 83027 06/02/2018 VITAMIN B12 INJECTION CPT- 4: J3420 06/02/2018 THER/PROPH/DIAG INJ SC/IM CPT-4: 70873 05/21/2018 VITAMIN B12 INJECTION CPT- 4: J3420 05/21/2018 TRIAMCINOLONE ACET INJ NOS CPT-4: J3301 04/09/2018 PPPS, SUBSEQ VISIT CPT- 4: G0439 12/18/2017 TRIAMCINOLONE ACET INJ NOS CPT-4: J3301 10/16/2017 DRAIN/INJECT JOINT/BURSA CPT-4: 32442 10/16/2017 PRESCRIP TRANSMIT VIA ERX SY CPT-4: G8553 05/05/2017 PRESCRIP TRANSMIT VIA ERX SY CPT-4: G8553 01/14/2017 PPPS, SUBSEQ VISIT CPT- 4: G0439 12/12/2016 PRESCRIP TRANSMIT VIA ERX SY CPT-4: G8553 10/15/2016 ADMIN PNEUMOCOCCAL VACCINE SNOMED CT: [id number] CPT-4: G0009 08/28/2016 Pneumococcal Polysaccharide Vaccine, 23-Valent, Ad CPT-4: 30541 08/28/2016 PRESCRIP TRANSMIT VIA ERX SY CPT-4: G8553 03/14/2016 PRESCRIP TRANSMIT VIA ERX SY CPT-4: G8553 12/19/2015 THER/PROPH/DIAG INJ SC/IM CPT-4: 94147 02/07/2015 TRIAMCINOLONE ACET INJ NOS CPT-4: J3301 02/07/2015 Vital Signs Date Vital 12/30/2018 Blood Pressure 1: 112/68 Code: 8480-6 BMI: 24.0 Code: 71435-1 Heart Rate 1: 66 bpm Height: 5'1" SpO2: 96% Weight: 127 lbs 12/22/2018 Blood Pressure 1: 110/72 Code: 8480-6 BMI: 24.0 Code: 86492-5 Heart Rate 1: 64 bpm Height: 5'1" SpO2: 95% Weight: 127 lbs 09/15/2018 Blood Pressure 1: 106/70 Code: 8480-6 BMI: 24.9 Code: 49474-1 Heart Rate 1: 74 bpm Height: 5'1" SpO2: 95% Weight: 132 lbs 08/18/2018 Blood Pressure 1: 128/70 Code: 8480-6 BMI: 25.1 Code: 59524-5 Heart Rate 1: 74 bpm Height: 5'1" SpO2: 95% Weight: 133 lbs 08/04/2018 Blood Pressure 1: 120/80 Code: 8480-6 Blood Pressure 1: 122/80 Code: 8480-6 Blood Pressure 2: 120/82 Code: 8480-6 BMI: 25.5 Code: 62265-5 Heart Rate 1: 63 bpm Heart Rate 1: 67 bpm Height: 5'1" Weight: 135 lbs Weight: 07/22/2018 Blood Pressure 1: 120/82 Code: 8480-6 BMI: 24.9 Code: 00454-9 Heart Rate 1: 64 bpm Height: 5'1" SpO2: 95% Weight: 132 lbs 04/21/2018 Blood Pressure 1: 108/70 Code: 8480-6 BMI: 24.4 Code: 45280-7 Heart Rate 1: 62 bpm Height: 5'1" SpO2: 94% Weight: 129 lbs 04/09/2018 Blood Pressure 1: 138/86 Code: 8480-6 BMI: 25.5 Code: 33990-7 Heart Rate 1: 64 bpm Height: 5'1" SpO2: 99% Temperature: 36.4 (C) / 97.5 (F) Weight: 135 lbs 01/19/2018 Blood Pressure 1: 128/76 Code: 8480-6 BMI: 25.9 Code: 97657-5 Heart Rate 1: 65 bpm Height: 5'1" SpO2: 98% Weight: 137 lbs 12/18/2017 Blood Pressure 1: 144/82 Code: 8480-6 BMI: 26.1 Code: 47999-1 Heart Rate 1: 57 bpm Height: 5'1" SpO2: 97% Waist Measure (cm): 74 cm Weight: 138 lbs 10/16/2017 Blood Pressure 1: 142/88 Code: 8480-6 BMI: 25.5 Code: 39558-6 Heart Rate 1: 63 bpm Height: 5'1" SpO2: 97% Weight: 135 lbs 09/03/2017 Blood Pressure 1: 144/90 Code: 8480-6 BMI: 26.3 Code: 65924-4 Heart Rate 1: 91 bpm Height: 5'1" SpO2: 96% Weight: 139 lbs 07/31/2017 Blood Pressure 1: 136/90 Code: 8480-6 BMI: 26.3 Code: 43591-0 Height: 5'1" Weight: 139 lbs 07/18/2017 Blood Pressure 1: 136/84 Code: 8480-6 06/16/2017 Blood Pressure 1: 136/84 Code: 8480-6 BMI: 26.5 Code: 92137-0 Heart Rate 1: 72 bpm Height: 5'1" SpO2: 97% Weight: 140 lbs 05/28/2017 Blood Pressure 1: 138/78 Code: 8480-6 BMI: 26.1 Code: 22471-3 Heart Rate 1: 70 bpm Height: 5'1" SpO2: 98% Weight: 138 lbs 05/05/2017 Blood Pressure 1: 140/86 Code: 8480-6 BMI: 25.3 Code: 84940-6 Heart Rate 1: 66 bpm Height: 5'1" SpO2: 99% Weight: 134 lbs 03/13/2017 Blood Pressure 1: 126/74 Code: 8480-6 BMI: 25.3 Code: 22476-3 Heart Rate 1: 73 bpm Height: 5'1" SpO2: 98% Weight: 134 lbs 02/10/2017 Blood Pressure 1: 148/88 Code: 8480-6 BMI: 25.9 Code: 35158-4 Heart Rate 1: 84 bpm Height: 5'1" SpO2: 97% Weight: 137 lbs 01/14/2017 Blood Pressure 1: 134/86 Code: 8480-6 BMI: 25.7 Code: 93444-8 Heart Rate 1: 83 bpm Height: 5'1" SpO2: 95% Weight: 136 lbs 01/07/2017 Blood Pressure 1: 136/88 Code: 8480-6 BMI: 25.1 Code: 93624-4 Heart Rate 1: 86 bpm Height: 5'1" SpO2: 94% Weight: 133 lbs 01/02/2017 Blood Pressure 1: 122/68 Code: 8480-6 Blood Pressure 2: 116/78 Code: 8480-6 01/01/2017 Blood Pressure 1: 90/52 Code: 8480-6 BMI: 25.1 Code: 16217- 5 Heart Rate 1: 86 bpm Height: 5'1" SpO2: 99% Weight: 133 lbs 12/20/2016 Blood Pressure 1: 120/76 Code: 8480-6 12/12/2016 Blood Pressure 1: 130/72 Code: 8480-6 BMI: 24.8 Code: 02050-7 Heart Rate 1: 62 bpm Height: 5'1" SpO2: 98% Waist Measure (cm): 79 cm Weight: 131 lbs 12/11/2016 Blood Pressure 1: 132/70 Code: 8480-6 BMI: 24.8 Code: 61629-8 Heart Rate 1: 60 bpm Height: 5'1" Weight: 131 lbs 10/15/2016 Blood Pressure 1: 108/66 Code: 8480-6 BMI: 24.8 Code: 22857-4 Heart Rate 1: 60 bpm Height: 5'1" Weight: 131 lbs 07/17/2016 Blood Pressure 1: 128/82 Code: 8480-6 BMI: 25.3 Code: 63719-0 Heart Rate 1: 50 bpm Height: 5'2" Weight: 136 lbs 05/15/2016 Blood Pressure 1: 108/70 Code: 8480-6 BMI: 23.4 Code: 90982-2 Heart Rate 1: 54 bpm Height: 5'2" SpO2: 96% Weight: 126 lbs 04/23/2016 Blood Pressure 1: 112/60 Code: 8480-6 BMI: 23.6 Code: 50666-3 Heart Rate 1: 92 bpm Height: 5'2" SpO2: 95% Weight: 127 lbs 03/14/2016 Blood Pressure 1: 118/74 Code: 8480-6 BMI: 24.0 Code: 64041-4 Heart Rate 1: 51 bpm Height: 5'2" SpO2: 94% Temperature: 36.8 (C) / 98.3 (F) Weight: 129 lbs 02/19/2016 Blood Pressure 1: 110/62 Code: 8480-6 BMI: 23.4 Code: 73930-0 Heart Rate 1: 74 bpm Height: 5'2" SpO2: 97% Weight: 126 lbs 12/19/2015 Blood Pressure 1: 108/74 Code: 8480-6 BMI: 23.6 Code: 96959-6 Heart Rate 1: 52 bpm Height: 5'2" Weight: 127 lbs 03/06/2015 Blood Pressure 1: 136/88 Code: 8480-6 Heart Rate 1: 64 bpm Weight: 129 lbs 02/07/2015 Blood Pressure 1: 142/90 Code: 8480-6 BMI: 24.5 Code: 63995-3 Heart Rate 1: 82 bpm Height: 5'2" [...] data Encounters Encounter Performer Location Codes Date ([id number]) 85650 EST. PATIENT, LEVEL IV Diagnosis: Other vitamin B12 deficiency anemias[ICD10: D51.8] Kim Burden MD, [facility] CPT-4: 26682 12/22/2018 ([id number]) 85144 EST. PATIENT, LEVEL IV Diagnosis: Chest pain, unspecified[ICD10: R07.9] Diagnosis: Other vitamin B12 deficiency anemias[ICD10: D51.8] Diagnosis: Other allergic rhinitis[ICD10: J30.89] Mallorie Burden MD, [facility] CPT-4: 18828 09/15/2018 ([id number]) 52496 EST. PATIENT, LEVEL III Diagnosis: Essential (primary) hypertension[ICD10: I10] Diagnosis: Fecal urgency[ICD10: R15.2] Kim Burden MD, [facility] CPT-4: 84749 08/18/2018 ([id number]) 64859 EST. PATIENT, LEVEL IV Diagnosis: Other vitamin B12 deficiency anemias[ICD10: D51.8] Diagnosis: Essential (primary) hypertension[ICD10: I10] Diagnosis: Major depressive disorder, recurrent, mild[ICD10: F33.0] Diagnosis: Unsteadiness on feet[ICD10: R26.81] Kim Burden MD, [facility] CPT- 4: 34206 08/04/2018 ([id number]) 94046 EST. PATIENT, LEVEL IV Diagnosis: Fecal urgency[ICD10: R15.2] Diagnosis: Generalized abdominal pain[ICD10: R10.84] Diagnosis: Essential (primary) hypertension[ICD10: I10] Kim Burden MD, [facility] CPT-4: 80225 07/22/2018 ([id number]) 87301 EST. PATIENT, LEVEL IV Diagnosis: Essential (primary) hypertension[ICD10: I10] Diagnosis: Other emphysema[ICD10: J43.8] Diagnosis: Candidal stomatitis[ICD10: B37.0] Kim Burden MD, [facility] CPT- 4: 37386 04/21/2018 ([id number]) 06036 EST. PATIENT, LEVEL III Diagnosis: Chronic obstructive pulmonary disease with (acute) exacerbation[ICD10: J44.1] Mallorie Burden MD, [facility] CPT-4: 19704 04/09/2018 ([id number]) 71315 EST. PATIENT, LEVEL IV Diagnosis: Essential (primary) hypertension[ICD10: I10] Diagnosis: Other emphysema[ICD10: J43.8] Kim Burden MD, [facility] CPT-4: 99575 01/19/2018 ([id number]) 51471 EST. PATIENT, LEVEL IV Diagnosis: Essential (primary) hypertension[ICD10: I10] Diagnosis: Other emphysema[ICD10: J43.8] Diagnosis: Dependence on supplemental oxygen[ICD10: Z99.81] Diagnosis: Hypoxemia[ICD10: R09.02] Diagnosis: Pain in left knee[ICD10: M25.562] Diagnosis: Effusion, left knee[ICD10: M25.462] Kim Burden MD, [facility] CPT- 4: 00225 10/16/2017 79745 EST. PATIENT, LEVEL III Diagnosis: Pain in thoracic spine[ICD10: M54.6] Pebbles Burden MD, [facility] CPT- 4: 02160 09/03/2017 ([id number]) 63467 EST. PATIENT, LEVEL III Diagnosis: Essential (primary) hypertension[ICD10: I10] Diagnosis: Other emphysema[ICD10: J43.8] Kim Burden MD, [facility] CPT-4: 51122 07/31/2017 ([id number]) Miscellaneous no charge Diagnosis: Essential (primary) hypertension[ICD10: I10] Mallorie Burden MD, [facility] CPT-4: 27891 07/18/2017 ([id number]) 26368 EST. PATIENT, LEVEL III Diagnosis: Pain in left knee[ICD10: M25.562] Diagnosis: Effusion, left knee[ICD10: M25.462] Mallorie Burden MD, [facility] CPT-4: 32593 06/16/2017 ([id number]) 20503 EST. PATIENT, LEVEL III Diagnosis: Essential (primary) hypertension[ICD10: I10] Diagnosis: Unsteadiness on feet[ICD10: R26.81] Kim Burden MD, [facility] CPT- 4: 83876 05/28/2017 ([id number]) 11967 EST. PATIENT, LEVEL IV Diagnosis: Essential (primary) hypertension[ICD10: I10] Diagnosis: Chronic obstructive pulmonary disease with acute lower respiratory infection[ICD10: J44.0] Kim Burden MD, [facility] CPT-4: 20408 05/05/2017 ([id number]) 31753 EST. 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 PATIENT, LEVEL IV Diagnosis: Essential (primary) hypertension[ICD10: I10] Diagnosis: Gastro-esophageal reflux disease without esophagitis[ICD10: K21.9] Diagnosis: Chronic obstructive pulmonary disease, unspecified[ICD10: J44.9] Kim Burden MD [facility] CPT-4: 71507 02/10/2017 ([id number]) 16547 EST. PATIENT, LEVEL IV Diagnosis: Essential (primary) hypertension[ICD10: I10] Diagnosis: Gastro-esophageal reflux disease without esophagitis[ICD10: K21.9] Diagnosis: Chronic obstructive pulmonary disease with acute lower respiratory infection[ICD10: J44.0] Kim Burden MD [facility] CPT-4: 02032 01/14/2017 58851 EST. PATIENT, LEVEL IV Diagnosis: Other fatigue[ICD10: R53.83] Diagnosis: Other malaise[ICD10: R53.81] Diagnosis: Headache[ICD10: R51] Diagnosis: Palpitations[ICD10: R00.2] Diagnosis: Dehydration[ICD10: E86.0] Pebbles Burden MD, [facility] CPT-4: 29833 01/07/2017 ([id number]) Miscellaneous no charge Diagnosis: Essential (primary) hypertension[ICD10: I10] Pebbles Burden MD [facility] CPT-4: 90839 01/02/2017 88142 EST. PATIENT, LEVEL IV Diagnosis: Chronic obstructive pulmonary disease, unspecified[ICD10: J44.9] Diagnosis: Essential (primary) hypertension[ICD10: I10] Diagnosis: Other fatigue[ICD10: R53.83] Pebbles Burden MD, [facility] CPT-4: 97624 01/01/2017 ([id number]) Miscellaneous no charge Diagnosis: Essential (primary) hypertension[ICD10: I10] Pebbles Burden MD [facility] CPT-4: 90167 12/20/2016 ([id number]) 94397 EST. 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 PATIENT, LEVEL IV Diagnosis: Essential (primary) hypertension[ICD10: I10] Diagnosis: Other allergic rhinitis[ICD10: J30.89] Diagnosis: Gastro-esophageal reflux disease without esophagitis[ICD10: K21.9] Kim Burden MD [facility] CPT-4: 79092 10/15/2016 ([id number]) 50714 EST. 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 PATIENT, LEVEL III Diagnosis: Pain in left hip[ICD10: M25.552] Diagnosis: Acute laryngopharyngitis[ICD10: J06.0] Kim Burden MD, [facility] CPT-4: 95850 05/15/2016 ([id number]) 65948 EST. PATIENT, LEVEL III Diagnosis: Fracture of unspecified parts of lumbosacral spine and pelvis, initial encounter for closed fracture[ICD10: S32.9XXA] Diagnosis: Essential (primary) hypertension[ICD10: I10] Kim Burden MD, [facility] CPT-4: 59273 04/23/2016 93319 EST. PATIENT, LEVEL IV Diagnosis: Acute laryngopharyngitis[ICD10: J06.0] Diagnosis: Other allergic rhinitis[ICD10: J30.89] Pebbles Burden MD, [facility] CPT- 4: 23571 03/14/2016 99346 EST. PATIENT, LEVEL IV Diagnosis: Dysuria[ICD10: R30.0] Diagnosis: Left lower quadrant pain[ICD10: R10.32] Pebbles Burden MD, [facility] CPT-4: 07105 02/19/2016 ([id number]) 14808 EST. 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 PATIENT, LEVEL IV Diagnosis: ESSENTIAL HYPERTENSION[ICD9: 401.9] Diagnosis: ACUTE URI[ICD9: 465.9] [facility] CPT-4: 64634 03/06/2015 ([id number]) OFFICE VISIT, NEW - LEVEL 4 Diagnosis: ESOPHAGEAL REFLUX[ICD9: 530.81] Diagnosis: ESSENTIAL HYPERTENSION[ICD9: 401.9] Diagnosis: COPD (chronic obstructive pulmonary disease)[ICD9: 496] Diagnosis: ALLERGIC RHINITIS[ICD9: 477.9] [facility] CPT-4: 06593 02/07/2015 Plan of Care Planned Activity Notes [...] Summary Completed 12/30/2018 Appointment: Mallorie Wetzel WPtel: [phone] [facility] - Annual Wellness Visit 12/28/2018 Visit [...] b12 injection. 12/22/2018 Appointment: Kim Burden WPtel: [phone] [facility] (15 min) Moderate 12/22/2018 Patient Education: [...] the office 09/15/2018 Appointment: Mallorie Wetzel WPtel: [phone] [phone] [place] (30 min) Complex 09/15/2018 Patient Education: Patient Medication Summary Completed 09/15/2018 Care Plan: Referral Order SNOMED-CT : [id number] Pending 09/15/2018 [facility]ment[phone] [place] (15 min) Moderate 08/25/2018 Visit Plan: Hypertension [...] a day. 08/18/2018 Appointment: [phone] [place] (15 min) Moderate 08/18/2018 Patient Education: Patient [...] of anxiolytic. 08/04/2018 Appointment: [phone] [place] (15 min) Moderate 08/04/2018 Appointment: Nurse [...] at home. 07/22/2018 Appointment: [phone] [place] (15 min) Moderate 07/22/2018 Patient [...] and swallow. 04/21/2018 Appointment: Kim Bur[facility] WPtel[facility] (15 min) Moderate 04/21/2018 Patient Education: [...] Wetzel WPtel: [phone] [id number] (30 min) Complex 04/09/2018 Patient Education: Patient [...] changes. 01/19/2018 Appointment: Kim Burden WPtel: [facility] (15 min) Moderate 01/19/2018 Patient Education: Patient Medication Summary Completed 01/19/2018 Appointment: Kim Burden WPtel: [phone] [facility] [place] (15 min) Moderate 01/14/2018 Visit Plan: [...] [facility]el[phone] [facility] [facility] - Annual Wellness Visit 12/18/2017 Patient [...] home. 10/16/2017 Appointment: [phone] [place] (15 min) Moderate 10/16/2017 Patient Education: [...] concerns. 09/03/2017 Appointment: Pebbles Lund WPtel: [phone] [place] (15 min) Moderate 09/03/2017 Patient Education: Patient Medication Summary Completed 09/03/2017 Appointment: Kim Burden WPtel: [phone] [facility] [place] (15 min) Moderate 08/11/2017 Appointment: Kim Burden WPtel: [phone] [facility] [place] (15 min) Moderate 08/11/2017 Patient Education: [...] current treatment. 07/31/2017 Appointment: [phone] [place] (15 min) Moderate 07/31/2017 Patient Education: Patient Medication Summary Completed 07/31/2017 Appointment: Nurse Visit 07/18/2017 Patient Education: Patient Medication Summary Completed 07/18/2017 Patient Education: Patient Medication Summary Completed 07/18/2017 Appointment: [phone] [place] (15 min) Moderate 06/30/2017 Visit Plan: Effusion left knee-fall 2 weeks ago-recommend compression of joint and refer to Ortho for evaluation and treatment-will refer to Dr Pryor/Quinton Mccormick. Patient verbalized understanding of plan. 06/16/2017 Appointment: Mallorie Wetzel [facility]Ptel: [phone] [place] (30 min) Complex 06/16/2017 Patient Education: [...] active. 05/28/2017 Appointment: [phone] [place] (15 min) Moderate 05/28/2017 Patient Education: [...] acute changes. 05/05/2017 Appointment: [phone] [place] (15 min) Moderate 05/05/2017 Patient Education: [...] 03/13/2017 Appointment: [phone] (15 min) Moderate 03/13/2017 Patient Education: Patient [...] symptoms worsening. 02/10/2017 Appointment: [phone] (15 min) Moderate 02/10/2017 Patient Education: [...] not improving. 01/14/2017 Appointment: [phone] [place] (15 min) Moderate 01/14/2017 Patient Education: [...] concerns. 01/07/2017 Appointment: Pebbles Lund WPtel: [phone] (30 min) Complex 01/07/2017 Patient Education: Patient [...] [place] [facility]Ptel: [phone] [facility] (30 min) Complex 01/01/2017 Patient Education: Patient [...] Lund [facility]Ptel: [phone] [facility] [facility] - Annual Wellness Visit 12/12/2016 Patient [...] this time. 12/11/2016 Appointment: Kim Burden WPtel: [facility] (15 min) Moderate 12/11/2016 Patient Education: Patient Medication Summary Completed 12/11/2016 Appointment: Mallorie Wetzel WPtel: [phone] [phone] [place] (30 min) Complex 12/10/2016 Visit Plan: [...] not improving. 10/15/2016 Appointment: Kim Burden WPtel: [facility] (15 min) Moderate 10/15/2016 Patient Education: [...] restaurant. 07/17/2016 Appointment: Kim Burden WPtel: [phone] [facility] (15 min) Moderate 07/17/2016 Patient Education: Patient Medication Summary Completed 07/17/2016 Appointment: Kim Burden WPtel: [facility] (15 min) Moderate 06/10/2016 Visit Plan: Hip pain - persistent but improving - continue with current treatment plan. Pt to call if her symptoms are not improving or if her hip pain worsens. URI symptoms - supportive care, use otc allergy medications. 05/15/2016 Appointment: Kim Burden WPtel: [facility] (15 min) Moderate 05/15/2016 Patient Education: Patient [...] improving. 04/23/2016 Appointment: Kim Burden WPtel: [facility] (15 min) Moderate 04/23/2016 Patient Education: Patient Medication Summary Completed 04/23/2016 Patient Education: Hypertension Completed 04/23/2016 Care Plan: X-RAY EXAM OF ABDOMEN LOINC : 28998-5 Pending 03/18/2016 Visit Plan: URI - Pt [...] allergy spray. 03/14/2016 Appointment: Pebbles Lund WPtel: [facility] [place] (30 min) Complex 03/14/2016 Patient Education: Patient Medication Summary Completed 03/14/2016 Patient Education: Patient Medication Summary Completed 02/29/2016 Visit Plan: Flank pain - pt is currently being treated for UTI, but is having continued left flank pain - will get KUB - pt is to notify clinic if symptoms do not improve, or with any concerns. 02/19/2016 Appointment: Pebbles Lund WPtel: [phone] (30 min) Complex 02/19/2016 Patient Education: Patient Medication Summary Completed 02/19/2016 Appointment: Kim Burden WPtel: [phone] [facility] (15 min) Moderate 01/22/2016 Visit Plan: [...] improving. 12/19/2015 Appointment: [phone] (15 min) Moderate 12/19/2015 Patient Education: Patient [...] RX. 03/06/2015 Appointment: [phone] Follow up 03/06/2015 Patient Education: Patient [...] Completed 02/07/2015 Care Plan: SCREENINGMAMMOGRAPHYDIGITAL LOINC : 03838-1 Ordered 02/07/2015 Care Plan: COMPLETE CBC AUTOMATED LOINC : 06590-9 Ordered 02/07/2015 Referral: Consuelo Chavez Referral Appointment Requested Instructions Comment . Medicare Exam - today we discussed [...] spray. B12 def-injection today in the office CHECK YOUR BLOOD PRESSURE AND PULSE AT [...] medication. Kenalog injection today in the office. Liquid Vitamin B12 or Vitamin B12 dissolving [...] to continue with oxygen when active. . Fecal urgency - Abdominal discomfort - [...] use oxygen, and call if symptoms worsening. TAKE WITH FOOD AND PROBIOTIC (twiDAQ OR Simbiosis) . URI - Pt advised to increase [...] to help decrease GI upset./loose stools - Nyxoah or Seer . Hypertension - well controlled - continue [...] if the symptoms are not improving. . Thoracic back pain - x-ray showed [...] - chronic, continue with current treatment. . Medicare Exam - today we discussed [...]
--- OUTSIDE RECORDS SUMMARY | 2019-04-06 08:52 | XMS REPORT | CCD ---
Author Author Mallorie Wetzel MD, [facility] Address [address] [place] [address] Phone Care Team Providers Care Lpn Or Medical Assistant Name Role Phone PP Unavailable CCM Unavailable Summary Purpose Interface Exchange Insurance Providers Payer name Policy type / Coverage type Covered republican ID Effective Begin Date Effective End Date WPS Medicare Part B Medicare Part B [id number] 2018 Unknown AETNA Medicare Part B [id number] Unknown Family history Brother Diagnosis Age At [...] Unknown 3 02/07/[address]: 5080696 Quit over 10 years ago 199302/07/2015 Number [...] Start Date Stop Date Status Fill Instructions mupirocin 2 % topical ointment RxNorm: 043216 1 Application TOP BID 12/30/2018 No Stop Date Active cyanocobalamin (vit B-12) 1,000 mcg/mL injection solution RxNorm: 067882 Milliliter(s) Inj 12/22/2018 12/22/2018 Inactive metoprolol tartrate 50 mg tablet RxNorm: 830571 1/2 Tablet(s) PO BID 11/06/2018 10/31/2019 Active alprazolam 1 mg tablet RxNorm: 165177 1/2 Tablet(s) PO TID 11/06/2018 08/02/2019 Active ibuprofen 800 mg tablet RxNorm: 664716 Tablet(s) TAKE 1 TABLET THREE TIMES DAILY 11/06/2018 10/31/2019 Active losartan 100 mg tablet RxNorm: 622542 Tablet(s) TAKE 1 TABLET EVERY EVENING 11/06/2018 10/31/2019 Active Lexapro 10 mg tablet RxNorm: 849025 Tablet(s) TAKE 1 TABLET EVERY DAY 11/06/2018 10/31/2019 Active cyanocobalamin (vit B-12) 1,000 mcg/mL injection solution RxNorm: 260160 1 Milliliter(s) Inj 10/01/2018 10/01/2018 Inactive ibuprofen 800 mg tablet RxNorm: 354503 TAKE 1 TABLET THREE TIMES DAILY 09/28/2018 11/05/2018 Inactive cyanocobalamin (vit B-12) 1,000 mcg/mL injection solution RxNorm: 768774 1 Milliliter(s) Inj 09/15/2018 09/15/2018 Inactive Kenalog 40 mg/mL suspension for injection RxNorm: 5715675 Milliliter(s) Inj 09/15/2018 09/15/2018 Inactive alprazolam 1 mg tablet RxNorm: 308252 1/2 Tablet(s) PO TID 08/10/2018 11/05/2018 Inactive cyanocobalamin (vit B-12) 1,000 mcg/mL injection solution RxNorm: 806684 Milliliter(s) Inj 08/04/2018 08/04/2018 Inactive alprazolam 1 mg tablet RxNorm: 483281 1/2 Tablet(s) PO BID 08/04/2018 08/09/2018 Inactive cholestyramine (with sugar) 4 gram powder for susp in a packet RxNorm: 798295 1/2 to 1 packet PO TID take 30 minutes before meals 07/22/2018 12/21/2018 Inactive cyanocobalamin (vit B-12) 1,000 mcg/mL injection solution RxNorm: 963829 1 Milliliter(s) Inj 07/16/2018 07/16/2018 Inactive omeprazole 20 mg capsule,delayed release RxNorm: 278958 Capsule(s) TAKE 1 CAPSULE TWICE DAILY 07/01/2018 06/25/2019 Active cyanocobalamin (vit B-12) 1,000 mcg/mL injection solution RxNorm: 696085 Milliliter(s) Inj 07/01/2018 07/01/2018 Inactive omeprazole 20 mg capsule,delayed release RxNorm: 713415 TAKE 1 CAPSULE TWICE DAILY 07/01/2018 06/30/2018 Inactive alprazolam 1 mg tablet RxNorm: 233705 1 Tablet(s) PO TID 07/01/2018 08/03/2018 Inactive cyanocobalamin (vit B-12) 1,000 mcg/mL injection solution RxNorm: 399798 Milliliter(s) Inj 06/15/2018 06/15/2018 Inactive cyanocobalamin (vit B-12) 1,000 mcg/mL injection solution RxNorm: 510299 Milliliter(s) Inj 06/02/2018 06/02/2018 Inactive fluticasone 50 mcg/actuation nasal spray,suspension RxNorm: 1693871 1 [place] NASAL BID 05/26/2018 05/20/2019 Active Vitamin B-12 1,000 mcg/mL injection solution RxNorm: 752152 1 Milliliter(s) Inj Q2 weeks x2 months and then monthly injections 05/21/2018 No Stop Date Active cyanocobalamin (vit B-12) 1,000 mcg/mL injection solution RxNorm: 178060 Milliliter(s) Inj 05/21/2018 05/21/2018 Inactive fluticasone 50 mcg/actuation nasal spray,suspension RxNorm: 0287146 1 [place] NASAL BID 05/19/2018 05/25/2018 Inactive fluticasone 50 mcg/actuation nasal spray,suspension RxNorm: 9629330 1 [place] NASAL BID 05/18/2018 05/18/2018 Inactive fluticasone 50 mcg/actuation nasal spray,suspension RxNorm: 6347037 1 [place] NASAL BID 05/15/2018 05/17/2018 Inactive fluticasone 50 mcg/actuation nasal spray,suspension RxNorm: 5054268 1 [place] NASAL BID 05/15/2018 05/14/2018 Inactive nystatin 100,000 unit/mL oral suspension RxNorm: 310367 5 Milliliter(s) PO QID 04/21/2018 04/30/2018 Inactive Breo Ellipta 100 mcg-25 mcg/dose powder for inhalation RxNorm: 0546329 1 INH daily 04/09/2018 04/03/2019 Active please call patient with jaramillo before sending prednisone 20 mg tablet RxNorm: 564920 1 Tablet(s) PO BID 04/09/2018 04/13/2018 Inactive start tomorrow Kenalog 40 mg/mL suspension for injection RxNorm: 9711076 1.5 Milliliter(s) Inj 04/09/2018 04/09/2018 Inactive Breo Ellipta 100 mcg-25 mcg/dose powder for inhalation RxNorm: 5335902 1 INH daily 04/09/2018 04/08/2018 Inactive alprazolam 1 mg tablet RxNorm: 632388 1 Tablet(s) PO TID 03/13/2018 06/30/2018 Inactive losartan 100 mg tablet RxNorm: 273899 TAKE 1 TABLET EVERY EVENING 03/02/2018 11/05/2018 Inactive Ventolin HFA 90 mcg/actuation aerosol inhaler RxNorm: 338651 2 INH Q4-6H as needed 12/29/2017 02/26/2018 Inactive Ventolin HFA 90 mcg/actuation aerosol inhaler RxNorm: 491117 2 INH Q4-6H as needed 12/29/2017 12/28/2017 Inactive Diflucan 150 mg tablet RxNorm: 668220 1 Tablet(s) PO daily 11/03/2017 11/05/2017 Inactive please call pt to let herknow when to pick- up the med Keflex 500 mg capsule RxNorm: 280870 1 Capsule(s) PO TID 10/23/2017 10/29/2017 Inactive Kenalog 40 mg/mL suspension for injection RxNorm: 1617439 1 Milliliter(s) Inj 10/16/2017 10/16/2017 Inactive ibuprofen 800 mg tablet RxNorm: 999709 TAKE 1 TABLET THREE TIMES DAILY 10/15/2017 09/27/2018 Inactive Lexapro 10 mg tablet RxNorm: 131145 TAKE 1 TABLET EVERY DAY 10/15/2017 10/09/2018 Inactive hydrocodone 5 mg-acetaminophen 325 mg tablet RxNorm: 332999 1 Tablet(s) PO QID as needed 09/03/2017 07/21/2018 Inactive omeprazole 20 mg capsule,delayed release RxNorm: 621325 1 Capsule(s) PO BID 09/02/2017 06/30/2018 Inactive alprazolam 1 mg tablet RxNorm: 021078 1 Tablet(s) PO TID 09/02/2017 03/12/2018 Inactive metoprolol tartrate 50 mg tablet RxNorm: 294013 1/2 Tablet(s) PO BID 06/26/2017 06/20/2018 Inactive omeprazole 20 mg capsule,delayed release RxNorm: 722366 1 Capsule(s) PO BID 06/05/2017 09/01/2017 Inactive omeprazole 20 mg capsule,delayed release RxNorm: 799194 1 Capsule(s) PO BID 05/28/2017 06/04/2017 Inactive omeprazole 20 mg capsule,delayed release RxNorm: 113566 1 Capsule(s) PO QPM 05/27/2017 05/27/2017 Inactive Breo Ellipta 100 mcg-25 mcg/dose powder for inhalation RxNorm: 5952094 1 INH daily 05/05/2017 04/08/2018 Inactive alprazolam 1 mg tablet RxNorm: 113850 1 Tablet(s) PO TID 02/10/2017 08/07/2017 Inactive metoprolol tartrate 50 mg tablet RxNorm: 325054 1/2 Tablet(s) PO BID 02/10/2017 06/25/2017 Inactive losartan 100 mg tablet RxNorm: 281989 1 Tablet(s) PO QPM 02/10/2017 02/04/2018 Inactive losartan 50 mg tablet RxNorm: 587456 2 Tablet(s) PO QPM 01/23/2017 02/09/2017 Inactive Diflucan 150 mg tablet RxNorm: 149098 1 Tablet(s) PO daily 01/20/2017 01/22/2017 Inactive please call pt to let herknow when to pick- up the med Diflucan 150 mg tablet RxNorm: 197215 1 Tablet(s) PO daily 01/20/2017 01/19/2017 Inactive please call pt to let herknow when to pick- up the med losartan 50 mg tablet RxNorm: 930236 1 Tablet(s) PO QPM 01/14/2017 01/22/2017 Inactive Cipro 500 mg tablet RxNorm: 744354 1 Tablet(s) PO BID 01/08/2017 01/17/2017 Inactive Cipro 500 mg tablet RxNorm: 908034 1 Tablet(s) PO BID 01/08/2017 01/07/2017 Inactive Lexapro 10 mg tablet RxNorm: 397395 TAKE 1 TABLET EVERY DAY 12/20/2016 10/14/2017 Inactive metoprolol tartrate 50 mg tablet RxNorm: 031293 1 Tablet(s) PO in the morning and 1.5 pill at night 12/11/2016 01/13/2017 Inactive spironolactone 25 mg tablet RxNorm: 440873 TAKE 1 TABLET EVERY DAY 11/04/2016 07/21/2018 Inactive metoprolol tartrate 50 mg tablet RxNorm: 958444 TAKE 1 TABLET TWICE DAILY 10/29/2016 12/10/2016 Inactive ibuprofen 800 mg tablet RxNorm: 816133 TAKE 1 TABLET THREE TIMES DAILY 10/21/2016 10/14/2017 Inactive Astepro 0.15 % (205.5 mcg) nasal spray RxNorm: 4648259 1 [place] NASAL BID 10/15/2016 10/14/2016 Inactive Astepro 0.15 % (205.5 mcg) nasal spray RxNorm: 8801022 1 [place] NASAL BID 10/15/2016 07/21/2018 Inactive Astepro 0.15 % (205.5 mcg) nasal spray RxNorm: 9925830 1 [place] NASAL BID 10/15/2016 10/14/2016 Inactive omeprazole 20 mg capsule,delayed release RxNorm: 590996 1 Capsule(s) PO QPM 10/15/2016 05/26/2017 Inactive omeprazole 20 mg capsule,delayed release RxNorm: 328074 1 Capsule(s) QPM 10/15/2016 10/14/2016 Inactive omeprazole 20 mg capsule,delayed release RxNorm: 976198 TAKE 1 CAPSULE TWICE DAILY 09/02/2016 10/14/2016 Inactive Lexapro 10 mg tablet RxNorm: 219029 TAKE 1 TABLET EVERY DAY 08/21/2016 12/19/2016 Inactive calcitonin (salmon) 200 unit/actuation nasal spray RxNorm: 573528 1 [place] NASAL daily ONE SPRAY PER ONE NOSTRIL DAILY- ALTERNATE NOSTRILS DAILY 05/31/2016 05/30/2016 Inactive She will do this for 3 months- If she wants to do a 3 month supply at one time she can without refill calcitonin (salmon) 200 unit/actuation nasal spray RxNorm: 834391 1 [place] NASAL daily ONE SPRAY PER ONE NOSTRIL DAILY- ALTERNATE NOSTRILS DAILY 05/31/2016 07/30/2016 Inactive x3 months- no refills Forteo 20 mcg/dose (600 mcg/2.4 mL) subcutaneous pen injector RxNorm: 8742965 1 injection SQ daily 05/22/2016 05/30/2016 Inactive call pt with jaramillo first Forteo 20 mcg/dose (600 mcg/2.4 mL) subcutaneous pen injector RxNorm: 2426257 1 injection SQ daily 05/22/2016 05/21/2016 Inactive Prolia 60 mg/mL subcutaneous syringe RxNorm: 400802 1 Milliliter(s) SQ every 6 months 05/13/2016 07/21/2018 Inactive Please check jaramillo through insurance and let me know- Thanks! Mary Ellen alprazolam 1 mg tablet RxNorm: 927398 1 Tablet(s) PO TID 05/08/2016 11/01/2016 Inactive Lexapro 10 mg tablet RxNorm: 869201 TAKE 1 TABLET EVERY DAY 04/22/2016 08/20/2016 Inactive spironolactone 25 mg tablet RxNorm: 765842 TAKE 1 TABLET EVERY DAY 04/22/2016 11/03/2016 Inactive Diflucan 150 mg tablet RxNorm: 677231 1 Tablet(s) PO daily 03/20/2016 04/14/2016 Inactive Diflucan 150 mg tablet RxNorm: 862479 1 Tablet(s) PO daily 03/20/2016 03/19/2016 Inactive Augmentin 500 mg-125 mg tablet RxNorm: 117762 1 Tablet(s) PO TID 03/14/2016 03/23/2016 Inactive omeprazole 20 mg capsule,delayed release RxNorm: 160483 1 Tablet(s) PO BID 03/06/2016 09/01/2016 Inactive [SAVINGS FOR NON-COVERED DRUGS -- BIN:759647, PCN: ASPROD1, Group: XXXXX, ID# XXXXXXX, Questions: . THIS IS NOT INSURANCE.] amlodipine 5 mg tablet RxNorm: 607413 TAKE 1 TABLET EVERY DAY 03/01/2016 04/22/2016 Inactive omeprazole 20 mg tablet,delayed release RxNorm: 645114 1 Tablet(s) PO BID 02/27/2016 03/05/2016 Inactive [SAVINGS FOR NON-COVERED DRUGS -- BIN:346513, PCN: ASPROD1, Group: XXXXX, ID# XXXXXXX, Questions: . THIS IS NOT INSURANCE.] spironolactone 25 mg tablet RxNorm: 191746 TAKE 1 TABLET EVERY DAY 12/21/2015 04/21/2016 Inactive Lexapro 10 mg tablet RxNorm: 014484 1 Tablet(s) PO daily 12/19/2015 01/01/2016 Inactive Lexapro 10 mg tablet RxNorm: 459016 1 Tablet(s) PO daily 12/19/2015 02/09/2017 Inactive Lexapro 10 mg tablet RxNorm: 346363 1 Tablet(s) PO daily 12/19/2015 12/18/2015 Inactive alprazolam 1 mg tablet RxNorm: 598225 1 Tablet(s) PO TID 12/01/2015 02/28/2016 Inactive ibuprofen 800 mg tablet RxNorm: 919120 1 Tablet(s) PO TID 10/26/2015 10/20/2016 Inactive alprazolam 1 mg tablet RxNorm: 833521 1 Tablet(s) PO TID 08/23/2015 07/21/2018 Inactive spironolactone 25 mg tablet RxNorm: 090501 1 Tablet(s) PO daily 08/21/2015 12/20/2015 Inactive metoprolol tartrate 50 mg tablet RxNorm: 523281 1 Tablet(s) PO BID 08/10/2015 08/03/2016 Inactive [SAVINGS FOR NON-COVERED DRUGS -- BIN:446204, PCN: ASPROD1, Group: XXXXX, ID# XXXXXXX, Questions: . THIS IS NOT INSURANCE.] omeprazole 20 mg tablet,delayed release RxNorm: 716400 1 Tablet(s) PO BID 08/07/2015 02/02/2016 Inactive [SAVINGS FOR NON-COVERED DRUGS -- BIN:554339, PCN: ASPROD1, Group: XXXXX, ID# [id number], Questions: . THIS IS NOT INSURANCE.] Keflex 500 mg capsule RxNorm: 972673 1 Capsule(s) PO TID 07/10/2015 07/16/2015 Inactive alprazolam 1 mg tablet RxNorm: 503513 1 Tablet(s) PO TID 06/02/2015 08/22/2015 Inactive alprazolam 1 mg tablet RxNorm: 743755 1 Tablet(s) PO TID 03/29/2015 06/01/2015 Inactive amlodipine 5 mg tablet RxNorm: 879409 1 Tablet(s) PO daily 03/06/2015 02/29/2016 Inactive Nasonex 50 mcg/actuation [place] RxNorm: 003488 1 [place] NASAL daily 03/03/2015 03/02/2015 Inactive Keflex 500 mg capsule RxNorm: 729549 1 Capsule(s) PO TID 03/03/2015 03/02/2015 Inactive Nasonex 50 mcg/actuation [place] RxNorm: 290451 1 [place] NASAL daily 03/03/2015 05/01/2015 Inactive Keflex 500 mg capsule RxNorm: 278555 1 Capsule(s) PO TID 03/03/2015 03/05/2015 Inactive Carafate 1 gram tablet RxNorm: 599295 TAKE 1 TABLET FOUR TIMES DAILY 30 MINUTES BEFORE MEALS AND AT BEDTIME 02/28/2015 12/18/2015 Inactive Kenalog 40 mg/mL suspension for injection RxNorm: 3591740 Milliliter(s) Inj 02/07/2015 02/07/2015 Inactive [SAVINGS FOR NON-COVERED DRUGS -- BIN:445453, PCN: ASPROD1, Group: XXXXX, ID# XXXXXXX, Questions: . THIS IS NOT INSURANCE.] metoprolol tartrate 50 mg tablet RxNorm: 709297 1 Tablet(s) PO BID 02/07/2015 08/09/2015 Inactive [SAVINGS FOR NON-COVERED DRUGS -- BIN:744992, PCN: ASPROD1, Group: XXXXX, ID# XXXXXXX, Questions: . THIS IS NOT INSURANCE.] Carafate 1 gram tablet RxNorm: 038947 1 Tablet(s) PO QID 02/07/2015 02/27/2015 Inactive 30 min before meals and at bedtime omeprazole 20 mg tablet,delayed release RxNorm: 427687 1 Tablet(s) PO BID 02/07/2015 08/05/2015 Inactive [SAVINGS FOR NON-COVERED DRUGS -- BIN:775666, PCN: ASPROD1, Group: XXXXX, ID# XXXXXXX, Questions: . THIS IS NOT INSURANCE.] Vitamin D3 2,000 unit tablet RxNorm: 588338 1 Tablet(s) PO daily No Start Date Active aspirin 81 mg tablet RxNorm: 753838 1 Tablet(s) PO daily No Start Date Active amlodipine 2.5 mg tablet RxNorm: 210216 1 Tablet(s) PO daily No Start Date 03/05/2015 Inactive spironolactone 25 mg tablet RxNorm: 218269 1 Tablet(s) PO daily No Start Date 08/20/2015 Inactive cetirizine 10 mg tablet RxNorm: 7474811 1 Tablet(s) PO daily No Start Date 12/18/2015 Inactive metoprolol tartrate 50 mg tablet RxNorm: 307862 1 Tablet(s) PO daily No Start Date 02/06/2015 Inactive ipratropium bromide 0.06 % nasal spray RxNorm: 559918 nasal No Start Date 12/18/2015 Inactive alprazolam 1 mg tablet RxNorm: 376526 1 Tablet(s) PO TID No Start Date 03/28/2015 Inactive Prolia 60 mg/mL subcutaneous syringe RxNorm: 499999 1 Milliliter(s) SQ every 6 months No Start Date 05/12/2016 Inactive Please check jaramillo through insurance and let me know- Thanks! Mary Ellen ibuprofen 800 mg tablet RxNorm: 580352 1 Tablet(s) PO TID No Start Date 10/25/2015 Inactive Protonix 40 mg tablet,delayed release RxNorm: 057800 1 Tablet(s) PO daily No Start Date 03/05/2015 Inactive Vitamin B-12 1,000 mcg/mL injection solution RxNorm: 591723 1 Milliliter(s) Inj Q2 weeks x2 months and then monthly injections No Start Date 05/20/2018 Inactive loratadine 10 mg tablet RxNorm: 400502 1 Tablet(s) PO daily No Start Date 07/21/2018 Inactive Medication Administered Medication Codes Instructions Start Date Status cyanocobalamin (vit B-12) 1,000 mcg/mL injection solution RxNorm: 960612 Milliliter 12/22/2018 No longer Active cyanocobalamin (vit B-12) 1,000 mcg/mL injection solution RxNorm: 137957 1Milliliter 10/01/2018 No longer Active Kenalog 40 mg/mL suspension for injection RxNorm: 2794361 Milliliter 09/15/2018 No longer Active cyanocobalamin (vit B-12) 1,000 mcg/mL injection solution RxNorm: 324451 1Milliliter 09/15/2018 No longer Active cyanocobalamin (vit B-12) 1,000 mcg/mL injection solution RxNorm: 132324 Milliliter 08/04/2018 No longer Active cyanocobalamin (vit B-12) 1,000 mcg/mL injection solution RxNorm: 983047 1Milliliter 07/16/2018 No longer Active cyanocobalamin (vit B-12) 1,000 mcg/mL injection solution RxNorm: 992447 Milliliter 07/01/2018 No longer Active cyanocobalamin (vit B-12) 1,000 mcg/mL injection solution RxNorm: 756423 Milliliter 06/15/2018 No longer Active cyanocobalamin (vit B-12) 1,000 mcg/mL injection solution RxNorm: 933232 Milliliter 06/02/2018 No longer Active cyanocobalamin (vit B-12) 1,000 mcg/mL injection solution RxNorm: 504138 Milliliter 05/21/2018 No longer Active Kenalog 40 mg/mL suspension for injection RxNorm: 9804279 1.5Milliliter 04/09/2018 No longer Active Kenalog 40 mg/mL suspension for injection RxNorm: 3676513 1Milliliter 10/16/2017 No longer Active Kenalog 40 mg/mL suspension for injection RxNorm: 1976269 Milliliter 02/07/2015 No longer Active Immunizations Vaccine [...] Item Item Code Result Date Comp Metabolic Pau986 NA 138 mEq/L 09/03/2017 Comp Metabolic Lbo428 K 3.9 mEq/L 09/03/2017 Comp Metabolic Kaz697 CL 102 mEq/L 09/03/2017 Comp Metabolic Pwk150 CO2 32.0 mEq/L 09/03/2017 Comp Metabolic Rda915 ANION GAP 8 09/03/2017 Comp Metabolic Giw757 GLUCOSE 89 mg/dL 09/03/2017 Comp Metabolic Phv731 Creat 0.6 mg/dL 09/03/2017 Comp Metabolic Mle898 eGFR 103 ml/min/1.73m2 09/03/2017 Comp Metabolic Bka774 BUN 10 mg/dL 09/03/2017 Comp Metabolic Vog557 B/C Ratio 16.7 Ratio 09/03/2017 Comp Metabolic Jej164 CALCIUM 8.9 mg/dL 09/03/2017 Comp Metabolic Ogr104 ALK PHOS 141 U/L 09/03/2017 Comp Metabolic Gbc580 AST(SGOT) 12 U/L 09/03/2017 Comp Metabolic Pwi988 ALT(SGPT) 7 U/L 09/03/2017 Comp Metabolic Tqx432 BILI T 0.6 mg/dL 09/03/2017 Comp Metabolic Hhi602 ALBUMIN 3.6 g/dL 09/03/2017 Comp Metabolic Cml249 TPRO 6.6 g/dL 09/03/2017 Comp Metabolic Kzz233 GLOB 3.0 g/dL 09/03/2017 Comp Metabolic Jcf261 A/G Ratio 1.2 Ratio 09/03/2017 Comp Metabolic Qth816 Osmo 274 mOsmo 09/03/2017 Hepatic Htd161 ALBUMIN 3.7 g/dL 08/11/2017 Hepatic Uci611 TPRO 7.0 g/dL 08/11/2017 Hepatic Bsj746 GLOB 3.3 g/dL 08/11/2017 Hepatic Hhe203 A/G Ratio 1.1 Ratio 08/11/2017 Hepatic Pxk802 ALK PHOS 85 U/L 08/11/2017 Hepatic Vnq443 ALT(SGPT) 11 U/L 08/11/2017 Hepatic Vqn908 AST(SGOT) 16 U/L 08/11/2017 Hepatic Bvg277 BILI T 0.6 mg/dL 08/11/2017 Hepatic Hlu586 BILI D 0.1 mg/dL 08/11/2017 Hepatic Oxs347 BILI I 0.5 mg/dL 08/11/2017 Hepatic Ote445 ALBUMIN 3.1 g/dL 07/18/2017 Hepatic Wpu004 TPRO 5.9 g/dL 07/18/2017 Hepatic Faz986 GLOB 2.8 g/dL 07/18/2017 Hepatic Oir120 A/G Ratio 1.1 Ratio 07/18/2017 Hepatic Ucj806 ALK PHOS 123 U/L 07/18/2017 Hepatic Yuc436 ALT(SGPT) 210 U/L 07/18/2017 Hepatic Dbb266 AST(SGOT) 71 U/L 07/18/2017 Hepatic Khe076 BILI T 1.1 mg/dL 07/18/2017 Hepatic Tnt544 BILI D 0.4 mg/dL 07/18/2017 Hepatic Waw089 BILI I 0.7 mg/dL 07/18/2017 Cbc With [...] 32.4 pg 02/25/2017 Cbc With Differential Ord2 [place]% 7.6 % 02/25/2017 Cbc With Differential Ord2 [...] 1.22 K/ul 02/25/2017 Cbc With Differential Ord2 [place] ABS# 0.4 K/ul 02/25/2017 Cbc With Differential [...] 32.3 pg 01/02/2017 Cbc With Differential Ord2 [place]% 7.8 % 01/02/2017 Cbc With Differential Ord2 [...] 0.90 K/ul 01/02/2017 Cbc With Differential Ord2 [place] ABS# 0.4 K/ul 01/02/2017 Cbc With Differential Ord2 Eos ABS# 0.3 K/ul 01/02/2017 Cbc With Differential Ord2 Baso ABS# 0.0 K/ul 01/02/2017 Lipid Ord30 CHOL 139 mg/dL 12/13/2016 Lipid Ord30 HDL 48.0 mg/dl 12/13/2016 Lipid Ord30 TRIG 84 mg/dL 12/13/2016 Lipid Ord30 LDL 74 mg/dL 12/13/2016 Lipid Ord30 C/HDL 2.9 Ratio 12/13/2016 Comp Metabolic Riy704 NA 137 mEq/L 12/13/2016 Comp Metabolic Qnn673 K 4.8 mEq/L 12/13/2016 Comp Metabolic Lmk944 CL 101 mEq/L 12/13/2016 Comp Metabolic Tab110 CO2 32.0 mEq/L 12/13/2016 Comp Metabolic Awo574 ANION GAP 9 12/13/2016 Comp Metabolic Rna031 GLUCOSE 95 mg/dL 12/13/2016 Comp Metabolic Akh148 Creat 0.8 mg/dL 12/13/2016 Comp Metabolic Mok668 eGFR 79 ml/min/1.73m2 12/13/2016 Comp Metabolic Djg208 BUN 15 mg/dL 12/13/2016 Comp Metabolic Ctd615 B/C Ratio 19.7 Ratio 12/13/2016 Comp Metabolic Vcc551 CALCIUM 9.3 mg/dL 12/13/2016 Comp Metabolic Vse200 ALK PHOS 63 U/L 12/13/2016 Comp Metabolic Fas404 AST(SGOT) 15 U/L 12/13/2016 Comp Metabolic Wsx942 ALT(SGPT) 10 U/L 12/13/2016 Comp Metabolic Yik171 BILI T 0.7 mg/dL 12/13/2016 Comp Metabolic Tmh651 ALBUMIN 3.7 g/dL 12/13/2016 Comp Metabolic Lse370 TPRO 6.8 g/dL 12/13/2016 Comp Metabolic Yiv230 GLOB 3.2 g/dL 12/13/2016 Comp Metabolic Mds809 A/G Ratio 1.2 Ratio 12/13/2016 Comp Metabolic Ehx990 Osmo 274 mOsmo 12/13/2016 Cbc With Differential [...] 31.9 pg 12/13/2016 Cbc With Differential Ord2 [place]% 9.9 % 12/13/2016 Cbc With Differential Ord2 [...] 1.17 K/ul 12/13/2016 Cbc With Differential Ord2 [place] ABS# 0.4 K/ul 12/13/2016 Cbc With Differential [...] 32.1 pg 12/19/2015 Cbc With Differential Ord2 [place]% 5.9 % 12/19/2015 Cbc With Differential Ord2 [...] 1.53 K/ul 12/19/2015 Cbc With Differential Ord2 [place] ABS# 0.3 K/ul 12/19/2015 Cbc With Differential [...] Ord30 C/HDL 2.8 Ratio 12/19/2015 Comp Metabolic Vob826 NA 135 mEq/L 12/19/2015 Comp Metabolic Zcx711 K 4.1 mEq/L 12/19/2015 Comp Metabolic Bfv991 CL 99 mEq/L 12/19/2015 Comp Metabolic Jdu782 CO2 27.0 mEq/L 12/19/2015 Comp Metabolic Swd405 ANION GAP 13 12/19/2015 Comp Metabolic Awn630 GLUCOSE 83 mg/dL 12/19/2015 Comp Metabolic Kav068 Creat 0.7 mg/dL 12/19/2015 Comp Metabolic Dfj532 eGFR 88 ml/min/1.73m2 12/19/2015 Comp Metabolic Sap406 BUN 12 mg/dL 12/19/2015 Comp Metabolic Zvf984 B/C Ratio 17.4 Ratio 12/19/2015 Comp Metabolic Rno387 CALCIUM 9.0 mg/dL 12/19/2015 Comp Metabolic Hqf785 ALK PHOS 68 U/L 12/19/2015 Comp Metabolic Ene506 AST(SGOT) 16 U/L 12/19/2015 Comp Metabolic Iba615 ALT(SGPT) 13 U/L 12/19/2015 Comp Metabolic Sjg948 BILI T 0.7 mg/dL 12/19/2015 Comp Metabolic Jvk696 ALBUMIN 4.0 g/dL 12/19/2015 Comp Metabolic Yfb653 TPRO 7.0 g/dL 12/19/2015 Comp Metabolic Jma959 GLOB 3.0 g/dL 12/19/2015 Comp Metabolic Yzw362 A/G Ratio 1.3 Ratio 12/19/2015 Comp Metabolic Huu143 Osmo 269 mOsmo 12/19/2015 Review of Systems [...] 4: G0439 12/30/2018 THER/PROPH/DIAG INJ SC/IM CPT-4: 99979 12/22/2018 VITAMIN B12 INJECTION CPT- 4: J3420 12/22/2018 THER/PROPH/DIAG INJ SC/IM CPT-4: 57568 10/01/2018 VITAMIN B12 INJECTION CPT- 4: J3420 10/01/2018 THER/PROPH/DIAG INJ SC/IM CPT-4: 18534 09/15/2018 VITAMIN B12 INJECTION CPT- 4: J3420 09/15/2018 TRIAMCINOLONE ACET INJ NOS CPT-4: J3301 09/15/2018 THER/PROPH/DIAG INJ SC/IM CPT-4: 96754 08/04/2018 VITAMIN B12 INJECTION CPT- 4: J3420 08/04/2018 THER/PROPH/DIAG INJ SC/IM CPT-4: 02117 07/16/2018 VITAMIN B12 INJECTION CPT- 4: J3420 07/16/2018 THER/PROPH/DIAG INJ SC/IM CPT-4: 43777 07/01/2018 VITAMIN B12 INJECTION CPT- 4: J3420 07/01/2018 ADMIN INFLUENZA VIRUS VAC CPT-4: G0008 06/25/2018 FLU VACC PRSV FREE INC ANTIG Formatting Model/CDA Sections, Assigned to/Miranda Ayala CPT-4: 18189Wlgigue 06/25/2018 THER/PROPH/DIAG INJ SC/IM CPT-4: 27638 06/15/2018 VITAMIN B12 INJECTION CPT- 4: J3420 06/15/2018 THER/PROPH/DIAG INJ SC/IM CPT-4: 19457 06/02/2018 VITAMIN B12 INJECTION CPT- 4: J3420 06/02/2018 THER/PROPH/DIAG INJ SC/IM CPT-4: 72192 05/21/2018 VITAMIN B12 INJECTION CPT- 4: J3420 05/21/2018 TRIAMCINOLONE ACET INJ NOS CPT-4: J3301 04/09/2018 PPPS, SUBSEQ VISIT CPT- 4: G0439 12/18/2017 TRIAMCINOLONE ACET INJ NOS CPT-4: J3301 10/16/2017 DRAIN/INJECT JOINT/BURSA CPT-4: 30129 10/16/2017 PRESCRIP TRANSMIT VIA ERX SY CPT-4: G8553 05/05/2017 PRESCRIP TRANSMIT VIA ERX SY CPT-4: G8553 01/14/2017 PPPS, SUBSEQ VISIT CPT- 4: G0439 12/12/2016 PRESCRIP TRANSMIT VIA ERX SY CPT-4: G8553 10/15/2016 ADMIN PNEUMOCOCCAL VACCINE SNOMED CT: [id number] CPT-4: G0009 08/28/2016 Pneumococcal Polysaccharide Vaccine, 23-Valent, Ad CPT-4: 55597 08/28/2016 PRESCRIP TRANSMIT VIA ERX SY CPT-4: G8553 03/14/2016 PRESCRIP TRANSMIT VIA ERX SY CPT-4: G8553 12/19/2015 THER/PROPH/DIAG INJ SC/IM CPT-4: 39743 02/07/2015 TRIAMCINOLONE ACET INJ NOS CPT-4: J3301 02/07/2015 Vital Signs Date Vital 12/30/2018 Blood Pressure 1: 112/68 Code: 8480-6 BMI: 24.0 Code: 03771-4 Heart Rate 1: 66 bpm Height: 5'1" SpO2: 96% Weight: 127 lbs 12/22/2018 Blood Pressure 1: 110/72 Code: 8480-6 BMI: 24.0 Code: 50820-5 Heart Rate 1: 64 bpm Height: 5'1" SpO2: 95% Weight: 127 lbs 09/15/2018 Blood Pressure 1: 106/70 Code: 8480-6 BMI: 24.9 Code: 40570-3 Heart Rate 1: 74 bpm Height: 5'1" SpO2: 95% Weight: 132 lbs 08/18/2018 Blood Pressure 1: 128/70 Code: 8480-6 BMI: 25.1 Code: 12728-8 Heart Rate 1: 74 bpm Height: 5'1" SpO2: 95% Weight: 133 lbs 08/04/2018 Blood Pressure 1: 120/80 Code: 8480-6 Blood Pressure 1: 122/80 Code: 8480-6 Blood Pressure 2: 120/82 Code: 8480-6 BMI: 25.5 Code: 32114-8 Heart Rate 1: 63 bpm Heart Rate 1: 67 bpm Height: 5'1" Weight: 135 lbs Weight: 07/22/2018 Blood Pressure 1: 120/82 Code: 8480-6 BMI: 24.9 Code: 87397-4 Heart Rate 1: 64 bpm Height: 5'1" SpO2: 95% Weight: 132 lbs 04/21/2018 Blood Pressure 1: 108/70 Code: 8480-6 BMI: 24.4 Code: 49326-6 Heart Rate 1: 62 bpm Height: 5'1" SpO2: 94% Weight: 129 lbs 04/09/2018 Blood Pressure 1: 138/86 Code: 8480-6 BMI: 25.5 Code: 28763-3 Heart Rate 1: 64 bpm Height: 5'1" SpO2: 99% Temperature: 36.4 (C) / 97.5 (F) Weight: 135 lbs 01/19/2018 Blood Pressure 1: 128/76 Code: 8480-6 BMI: 25.9 Code: 80858-5 Heart Rate 1: 65 bpm Height: 5'1" SpO2: 98% Weight: 137 lbs 12/18/2017 Blood Pressure 1: 144/82 Code: 8480-6 BMI: 26.1 Code: 93556-8 Heart Rate 1: 57 bpm Height: 5'1" SpO2: 97% Waist Measure (cm): 74 cm Weight: 138 lbs 10/16/2017 Blood Pressure 1: 142/88 Code: 8480-6 BMI: 25.5 Code: 33135-2 Heart Rate 1: 63 bpm Height: 5'1" SpO2: 97% Weight: 135 lbs 09/03/2017 Blood Pressure 1: 144/90 Code: 8480-6 BMI: 26.3 Code: 44760-7 Heart Rate 1: 91 bpm Height: 5'1" SpO2: 96% Weight: 139 lbs 07/31/2017 Blood Pressure 1: 136/90 Code: 8480-6 BMI: 26.3 Code: 17439-9 Height: 5'1" Weight: 139 lbs 07/18/2017 Blood Pressure 1: 136/84 Code: 8480-6 06/16/2017 Blood Pressure 1: 136/84 Code: 8480-6 BMI: 26.5 Code: 68818-1 Heart Rate 1: 72 bpm Height: 5'1" SpO2: 97% Weight: 140 lbs 05/28/2017 Blood Pressure 1: 138/78 Code: 8480-6 BMI: 26.1 Code: 25155-1 Heart Rate 1: 70 bpm Height: 5'1" SpO2: 98% Weight: 138 lbs 05/05/2017 Blood Pressure 1: 140/86 Code: 8480-6 BMI: 25.3 Code: 99513-8 Heart Rate 1: 66 bpm Height: 5'1" SpO2: 99% Weight: 134 lbs 03/13/2017 Blood Pressure 1: 126/74 Code: 8480-6 BMI: 25.3 Code: 95858-7 Heart Rate 1: 73 bpm Height: 5'1" SpO2: 98% Weight: 134 lbs 02/10/2017 Blood Pressure 1: 148/88 Code: 8480-6 BMI: 25.9 Code: 74074-1 Heart Rate 1: 84 bpm Height: 5'1" SpO2: 97% Weight: 137 lbs 01/14/2017 Blood Pressure 1: 134/86 Code: 8480-6 BMI: 25.7 Code: 08342-5 Heart Rate 1: 83 bpm Height: 5'1" SpO2: 95% Weight: 136 lbs 01/07/2017 Blood Pressure 1: 136/88 Code: 8480-6 BMI: 25.1 Code: 66361-4 Heart Rate 1: 86 bpm Height: 5'1" SpO2: 94% Weight: 133 lbs 01/02/2017 Blood Pressure 1: 122/68 Code: 8480-6 Blood Pressure 2: 116/78 Code: 8480-6 01/01/2017 Blood Pressure 1: 90/52 Code: 8480-6 BMI: 25.1 Code: 11012- 5 Heart Rate 1: 86 bpm Height: 5'1" SpO2: 99% Weight: 133 lbs 12/20/2016 Blood Pressure 1: 120/76 Code: 8480-6 12/12/2016 Blood Pressure 1: 130/72 Code: 8480-6 BMI: 24.8 Code: 65024-9 Heart Rate 1: 62 bpm Height: 5'1" SpO2: 98% Waist Measure (cm): 79 cm Weight: 131 lbs 12/11/2016 Blood Pressure 1: 132/70 Code: 8480-6 BMI: 24.8 Code: 89468-4 Heart Rate 1: 60 bpm Height: 5'1" Weight: 131 lbs 10/15/2016 Blood Pressure 1: 108/66 Code: 8480-6 BMI: 24.8 Code: 74976-7 Heart Rate 1: 60 bpm Height: 5'1" Weight: 131 lbs 07/17/2016 Blood Pressure 1: 128/82 Code: 8480-6 BMI: 25.3 Code: 93161-2 Heart Rate 1: 50 bpm Height: 5'2" Weight: 136 lbs 05/15/2016 Blood Pressure 1: 108/70 Code: 8480-6 BMI: 23.4 Code: 42772-8 Heart Rate 1: 54 bpm Height: 5'2" SpO2: 96% Weight: 126 lbs 04/23/2016 Blood Pressure 1: 112/60 Code: 8480-6 BMI: 23.6 Code: 53926-7 Heart Rate 1: 92 bpm Height: 5'2" SpO2: 95% Weight: 127 lbs 03/14/2016 Blood Pressure 1: 118/74 Code: 8480-6 BMI: 24.0 Code: 69272-2 Heart Rate 1: 51 bpm Height: 5'2" SpO2: 94% Temperature: 36.8 (C) / 98.3 (F) Weight: 129 lbs 02/19/2016 Blood Pressure 1: 110/62 Code: 8480-6 BMI: 23.4 Code: 10343-8 Heart Rate 1: 74 bpm Height: 5'2" SpO2: 97% Weight: 126 lbs 12/19/2015 Blood Pressure 1: 108/74 Code: 8480-6 BMI: 23.6 Code: 37689-5 Heart Rate 1: 52 bpm Height: 5'2" Weight: 127 lbs 03/06/2015 Blood Pressure 1: 136/88 Code: 8480-6 Heart Rate 1: 64 bpm Weight: 129 lbs 02/07/2015 Blood Pressure 1: 142/90 Code: 8480-6 BMI: 24.5 Code: 72211-4 Heart Rate 1: 82 bpm Height: 5'2" [...] data Encounters Encounter Performer Location Codes Date ([id number]) 43413 EST. PATIENT, LEVEL IV Diagnosis: Other vitamin B12 deficiency anemias[ICD10: D51.8] [facility] CPT-4: 94326 12/22/2018 ([id number]) 07903 EST. PATIENT, LEVEL IV Diagnosis: Chest pain, unspecified[ICD10: R07.9] Diagnosis: Other vitamin B12 deficiency anemias[ICD10: D51.8] Diagnosis: Other allergic rhinitis[ICD10: J30.89] [facility] CPT-4: 34402 09/15/2018 ([id number]) 04624 EST. PATIENT, LEVEL III Diagnosis: Essential (primary) hypertension[ICD10: I10] Diagnosis: Fecal urgency[ICD10: R15.2] Kim Burden MD, [facility] CPT-4: 45935 08/18/2018 ([id number]) 76008 EST. PATIENT, LEVEL IV Diagnosis: Other vitamin B12 deficiency anemias[ICD10: D51.8] Diagnosis: Essential (primary) hypertension[ICD10: I10] Diagnosis: Major depressive disorder, recurrent, mild[ICD10: F33.0] Diagnosis: Unsteadiness on feet[ICD10: R26.81] Kim Burden MD, [facility] CPT- 4: 86193 08/04/2018 ([id number]) 55367 EST. PATIENT, LEVEL IV Diagnosis: Fecal urgency[ICD10: R15.2] Diagnosis: Generalized abdominal pain[ICD10: R10.84] Diagnosis: Essential (primary) hypertension[ICD10: I10] Kim Burden MD, [facility] CPT-4: 13788 07/22/2018 ([id number]) 68780 EST. PATIENT, LEVEL IV Diagnosis: Essential (primary) hypertension[ICD10: I10] Diagnosis: Other emphysema[ICD10: J43.8] Diagnosis: Candidal stomatitis[ICD10: B37.0] Kim Burden MD, [facility] CPT- 4: 31466 04/21/2018 ([id number]) 28932 EST. PATIENT, LEVEL III Diagnosis: Chronic obstructive pulmonary disease with (acute) exacerbation[ICD10: J44.1] Mallorie Burden MD, [facility] CPT-4: 78731 04/09/2018 ([id number]) 86160 EST. PATIENT, LEVEL IV Diagnosis: Essential (primary) hypertension[ICD10: I10] Diagnosis: Other emphysema[ICD10: J43.8] Kim Burden MD, [facility] CPT-4: 88963 01/19/2018 ([id number]) 45389 EST. PATIENT, LEVEL IV Diagnosis: Essential (primary) hypertension[ICD10: I10] Diagnosis: Other emphysema[ICD10: J43.8] Diagnosis: Dependence on supplemental oxygen[ICD10: Z99.81] Diagnosis: Hypoxemia[ICD10: R09.02] Diagnosis: Pain in left knee[ICD10: M25.562] Diagnosis: Effusion, left knee[ICD10: M25.462] Kim Burden MD, [facility] CPT- 4: 82524 10/16/2017 11680 EST. PATIENT, LEVEL III Diagnosis: Pain in thoracic spine[ICD10: M54.6] Pebbles Burden MD, [facility] CPT- 4: 17812 09/03/2017 ([id number]) 42695 EST. PATIENT, LEVEL III Diagnosis: Essential (primary) hypertension[ICD10: I10] Diagnosis: Other emphysema[ICD10: J43.8] Kim Burden MD, [facility] CPT-4: 36439 07/31/2017 ([id number]) Miscellaneous no charge Diagnosis: Essential (primary) hypertension[ICD10: I10] Mallorie Burden MD, [facility] CPT-4: 46133 07/18/2017 ([id number]) 92298 EST. PATIENT, LEVEL III Diagnosis: Pain in left knee[ICD10: M25.562] Diagnosis: Effusion, left knee[ICD10: M25.462] Mallorie Burden MD, [facility] CPT-4: 57407 06/16/2017 ([id number]) 37277 EST. PATIENT, LEVEL III Diagnosis: Essential (primary) hypertension[ICD10: I10] Diagnosis: Unsteadiness on feet[ICD10: R26.81] Kim Burden MD, [facility] CPT- 4: 87596 05/28/2017 ([id number]) 30808 EST. PATIENT, LEVEL IV Diagnosis: Essential (primary) hypertension[ICD10: I10] Diagnosis: Chronic obstructive pulmonary disease with acute lower respiratory infection[ICD10: J44.0] Kim Burden MD, [facility] CPT-4: 79994 05/05/2017 ([id number]) 39143 EST. PATIENT, LEVEL IV Diagnosis: Essential (primary) hypertension[ICD10: I10] Diagnosis: Major depressive disorder, recurrent, mild[ICD10: F33.0] Kim Burden MD, [facility] CPT-4: 50716 03/13/2017 ([id number]) 73207 EST. PATIENT, LEVEL IV Diagnosis: Essential (primary) hypertension[ICD10: I10] Diagnosis: Gastro-esophageal reflux disease without esophagitis[ICD10: K21.9] Diagnosis: Chronic obstructive pulmonary disease, unspecified[ICD10: J44.9] Kim Burden MD, [facility] CPT-4: 52317 02/10/2017 ([id number]) 07148 EST. PATIENT, LEVEL IV Diagnosis: Essential (primary) hypertension[ICD10: I10] Diagnosis: Gastro-esophageal reflux disease without esophagitis[ICD10: K21.9] Diagnosis: Chronic obstructive pulmonary disease with acute lower respiratory infection[ICD10: J44.0] Kim Burden MD, [facility] CPT-4: 50172 01/14/2017 09045 EST. PATIENT, LEVEL IV Diagnosis: Other fatigue[ICD10: R53.83] Diagnosis: Other malaise[ICD10: R53.81] Diagnosis: Headache[ICD10: R51] Diagnosis: Palpitations[ICD10: R00.2] Diagnosis: Dehydration[ICD10: E86.0] Pebbles Burden MD, [facility] CPT-4: 08674 01/07/2017 ([id number]) Miscellaneous no charge Diagnosis: Essential (primary) hypertension[ICD10: I10] Pebbles Burden MD, [facility] CPT-4: 55282 01/02/2017 36649 EST. PATIENT, LEVEL IV Diagnosis: Chronic obstructive pulmonary disease, unspecified[ICD10: J44.9] Diagnosis: Essential (primary) hypertension[ICD10: I10] Diagnosis: Other fatigue[ICD10: R53.83] Pebbles Burden MD, [facility] CPT-4: 76394 01/01/2017 ([id number]) Miscellaneous no charge Diagnosis: Essential (primary) hypertension[ICD10: I10] Pebbles Burden MD, [facility] CPT-4: 89670 12/20/2016 ([id number]) 69245 EST. 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 PATIENT, LEVEL IV Diagnosis: Essential (primary) hypertension[ICD10: I10] Diagnosis: Other allergic rhinitis[ICD10: J30.89] Diagnosis: Gastro-esophageal reflux disease without esophagitis[ICD10: K21.9] Kim Burden MD [facility] CPT-4: 68110 10/15/2016 ([id number]) 19397 EST. 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 PATIENT, LEVEL III Diagnosis: Pain in left hip[ICD10: M25.552] Diagnosis: Acute laryngopharyngitis[ICD10: J06.0] Kim Burden MD [facility] CPT-4: 41476 05/15/2016 ([id number]) 17199 EST. PATIENT, LEVEL III Diagnosis: Fracture of unspecified parts of lumbosacral spine and pelvis, initial encounter for closed fracture[ICD10: S32.9XXA] Diagnosis: Essential (primary) hypertension[ICD10: I10] Kim Burden MD [facility] CPT-4: 23787 04/23/2016 54635 EST. PATIENT, LEVEL IV Diagnosis: Acute laryngopharyngitis[ICD10: J06.0] Diagnosis: Other allergic rhinitis[ICD10: J30.89] Pebbles Burden MD, [facility] CPT- 4: 25078 03/14/2016 92655 EST. PATIENT, LEVEL IV Diagnosis: Dysuria[ICD10: R30.0] Diagnosis: Left lower quadrant pain[ICD10: R10.32] Pebbles Burden MD, [facility] CPT-4: 78476 02/19/2016 ([id number]) 30567 EST. PATIENT, LEVEL IV Diagnosis: Essential (primary) hypertension[ICD10: I10] Diagnosis: Gastro-esophageal reflux disease without esophagitis[ICD10: K21.9] Diagnosis: Major depressive disorder, recurrent, mild[ICD10: F33.0] [facility] CPT-4: 04857 12/19/2015 ([id number]) 26495 EST. PATIENT, LEVEL IV Diagnosis: ESSENTIAL HYPERTENSION[ICD9: 401.9] Diagnosis: ACUTE URI[ICD9: 465.9] [facility] CPT-4: 11392 03/06/2015 ([id number]) OFFICE VISIT, NEW - LEVEL 4 Diagnosis: ESOPHAGEAL REFLUX[ICD9: 530.81] Diagnosis: ESSENTIAL HYPERTENSION[ICD9: 401.9] Diagnosis: COPD (chronic obstructive pulmonary disease)[ICD9: 496] Diagnosis: ALLERGIC RHINITIS[ICD9: 477.9] [facility] CPT-4: 85234 02/07/2015 Plan of Care Planned Activity Notes [...] Summary Completed 12/30/2018 Appointment: Mallorie Wetzel WPtel: [address] [place], [place] [phone] [facility] - Annual Wellness Visit 12/28/2018 Visit [...] injection. 12/22/2018 Appointment: Kim Burden WPtel: [phone] [facility] (15 min) Moderate 12/22/2018 Patient Education: [...] the office 09/15/2018 Appointment: Mallorie Wetzel WPtel: [facility]2 [phone] [place] (30 min) Complex 09/15/2018 Patient Education: Patient Medication Summary Completed 09/15/2018 Care Plan: Referral Order SNOMED-CT : [id number] Pending 09/15/2018 Appointment: Kim Burden WPtel: [facility]5 [facility] [place] (15 min) Moderate 08/25/2018 Visit Plan: [...] a day. 08/18/2018 Appointment: Kim Burden WPtel: [facility]0 [facility] [place] (15 min) Moderate 08/18/2018 Patient Education: [...] of anxiolytic. 08/04/2018 [facility]ment[phone] [place] (15 min) Moderate 08/04/2018 Appointment: Nurse [...] home. 07/22/2018 Appointment: [phone] [place] (15 min) Moderate 07/22/2018 Patient [...] and swallow. 04/21/2018 Appointment: Kim Burden WPtel: [facility] (15 min) Moderate 04/21/2018 Patient Education: Patient [...] acute changes. 04/09/2018 Appointment: Mallorie Wetzel WPtel: [facility]5 [phone] [place] (30 min) Complex 04/09/2018 Patient Education: [...] acute changes. 01/19/2018 Appointment: Kim Burden WPtel: [facility]5 [facility] (15 min) Moderate 01/19/2018 Patient Education: Patient Medication Summary Completed 01/19/2018 Appointment: Kim Burden WPtel: [facility]5 [facility] (15 min) Moderate 01/14/2018 Visit Plan: Medicare [...] care surrogate. 12/18/2017 [facility]ment[facility]eb[phone] [facility] - Annual Wellness Visit 12/18/2017 Patient [...] at home. 10/16/2017 Appointment: [phone] (15 min) Moderate 10/16/2017 Patient Education: [...] or concerns. 09/03/2017 Appointment: Pebbles Lund WPtel[facility] [place] ([place] min) Moderate 09/03/2017 Patient Education: Patient Medication Summary Completed 09/03/2017 Appointment: Kim Burden WPtel: [facility]5 [facility] [place] (15 min) Moderate 08/11/2017 Appointment: Kim Burden WPtel: [facility]2 [facility] [place] (15 min) Moderate 08/11/2017 Patient [...] current treatment. 07/31/2017 Appointment: Kim Burden WPtel: [facility] [place] (15 min) Moderate 07/31/2017 Patient Education: Patient Medication Summary Completed 07/31/2017 Appointment: Nurse Visit 07/18/2017 Patient Education: Patient Medication Summary Completed 07/18/2017 Patient Education: Patient Medication Summary Completed 07/18/2017 Appointment: Kim [phone] [facility] [place] (15 min) Moderate 06/30/2017 Visit Plan: Effusion left knee-fall 2 weeks ago-recommend compression of joint and refer to Ortho for evaluation and treatment-will refer to Dr Pryor/Quinton Mccormick. Patient verbalized understanding of plan. 06/16/2017 Appointment: Mallorie Wetzel WPtel: [phone] [phone] (30 min) Complex 06/16/2017 Patient Education: Patient [...] when active. 05/28/2017 Appointment: Kim Burden WPtel: [phone] [facility] (15 min) Moderate 05/28/2017 Patient Education: [...] acute changes. 05/05/2017 Appointment: Kim Burden WPtel: [facility]0 [facility] (15 min) Moderate 05/05/2017 Patient Education: [...] medications. 03/13/2017 Appointment: [phone] (15 min) Moderate 03/13/2017 Patient Education: Patient [...] symptoms worsening. 02/10/2017 Appointment: Kim Burden WPtel: [phone] [facility] (15 min) Moderate 02/10/2017 Patient Education: [...] not improving. 01/14/2017 Appointment: [phone] (15 min) Moderate 01/14/2017 Patient Education: Patient Medication Summary Completed 01/14/2017 Visit Plan: Dehydration, palpitations, malaise, headache - will send for outpatient fluids, will check labs, ekg. Pt is to restart her spironolactone, continue to monitor blood pressures and heart rates and notify clinic if symptoms do not improve, if they worsen, or with any questions or concerns. 01/07/2017 Appointment: [phone] (30 min) Complex 01/07/2017 Patient Education: Patient [...] pressures. 01/01/2017 Appointment: Pebbles Lund [facility]Ptel[phone] [facility] (30 min) Complex 01/01/2017 Patient Education: [...] surrogate. 12/12/2016 Appointment: Pebbles Lund WPtel[facility] [phone] [facility] [facility] - Annual Wellness Visit 12/12/2016 Patient [...] this time. 12/11/2016 Appointment: Kim Burden WPtel: [phone] [facility] [place] (15 min) Moderate 12/11/2016 Patient Education: Patient Medication Summary Completed 12/11/2016 Appointment: Mallorie Wetzel WPtel: [phone] [phone] [place] (30 min) Complex 12/10/2016 Visit Plan: [...] improving. 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 07/17/2016 Appointment: Kim Burden WPtel: [phone] [facility] [place] (15 min) Moderate 07/17/2016 Patient Education: Patient Medication Summary Completed 07/17/2016 Appointment: Kim [facility] [phone] [facility] (15 min) Moderate 06/10/2016 Visit Plan: Hip pain - persistent but improving - continue with current treatment plan. Pt to call if her symptoms are not improving or if her hip pain worsens. URI symptoms - supportive care, use otc allergy medications. 05/15/2016 Appointment: Kim Burden WPtel: [facility]9 [facility] (15 min) Moderate 05/15/2016 Patient Education: [...] not improving. 04/23/2016 Appointment: Kim Burden WPtel: [facility]6 [facility] (15 min) Moderate 04/23/2016 Patient Education: Patient Medication Summary Completed 04/23/2016 Patient Education: Hypertension Completed 04/23/2016 Care Plan: X-RAY EXAM OF ABDOMEN LOINC : 57316-7 Pending 03/18/2016 Visit Plan: URI - Pt [...] allergy spray. 03/14/2016 Appointment: Pebbles Lund [facility]Ptel[phone] [facility] (30 min) Complex 03/14/2016 Patient Education: Patient Medication Summary Completed 03/14/2016 Patient Education: Patient Medication Summary Completed 02/29/2016 Visit Plan: Flank pain - pt is currently being treated for UTI, but is having continued left flank pain - will get KUB - pt is to notify clinic if symptoms do not improve, or with any concerns. 02/19/2016 Appointment: Pebbles Lund WPtel: [phone] [phone] (30 min) Complex 02/19/2016 Patient Education: Patient Medication Summary Completed 02/19/2016 Appointment: Kim Burden WPtel: [phone] [facility] (15 min) Moderate 01/22/2016 Visit Plan: [...] not improving. 12/19/2015 Appointment: Kim Burden WPtel: [phone] [facility] (15 min) Moderate 12/19/2015 Patient Education: [...] if any worse. Finish RX. 03/06/2015 Appointment: JeniseKim WPtel: [facility] Follow up 03/06/2015 Patient Education: Patient Medication [...] Completed 02/07/2015 Care Plan: SCREENINGMAMMOGRAPHYDIGITAL LOINC : 53587-0 Ordered 02/07/2015 Care Plan: COMPLETE CBC AUTOMATED LOINC : 84340-9 Ordered 02/07/2015 Referral: Consuelo Chavez Referral Appointment [...] to help decrease GI upset./loose stools - StorSimple or apartum . Hypertension - well controlled - continue [...] care surrogate. TAKE WITH FOOD AND PROBIOTIC (Retora Black OR Voicendo) . URI - Pt advised to increase [...]
--- OUTSIDE RECORDS SUMMARY | 2019-04-06 08:57 | XMS REPORT | CCD ---
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 Name Role Phone PP Unavailable CCM Unavailable Summary Purpose Interface Exchange Insurance Providers Payer name Policy type / Coverage type Covered republican ID Effective Begin Date Effective End Date WPS Medicare Part B Medicare Part B [id number] 2018 Unknown AETNA Medicare Part B [id number] Unknown Family history Brother Diagnosis Age At [...] Unknown 3 02/07/[address]: 0053374 Quit over 10 years ago 199302/07/2015 Number [...] Instructions mupirocin 2 % topical ointment RxNorm: 016378 1 Application TOP BID 12/30/2018 No Stop Date Active cyanocobalamin (vit B-12) 1,000 mcg/mL injection solution RxNorm: 135511 Milliliter(s) Inj 12/22/2018 12/22/2018 Inactive metoprolol tartrate 50 mg tablet RxNorm: 116515 1/2 Tablet(s) PO BID 11/06/2018 10/31/2019 Active alprazolam 1 mg tablet RxNorm: 197224 1/2 Tablet(s) PO TID 11/06/2018 08/02/2019 Active ibuprofen 800 mg tablet RxNorm: 782793 Tablet(s) TAKE 1 TABLET THREE TIMES DAILY 11/06/2018 10/31/2019 Active losartan 100 mg tablet RxNorm: 245633 Tablet(s) TAKE 1 TABLET EVERY EVENING 11/06/2018 10/31/2019 Active Lexapro 10 mg tablet RxNorm: 533603 Tablet(s) TAKE 1 TABLET EVERY DAY 11/06/2018 10/31/2019 Active cyanocobalamin (vit B-12) 1,000 mcg/mL injection solution RxNorm: 034338 1 Milliliter(s) Inj 10/01/2018 10/01/2018 Inactive ibuprofen 800 mg tablet RxNorm: 880352 TAKE 1 TABLET THREE TIMES DAILY 09/28/2018 11/05/2018 Inactive cyanocobalamin (vit B-12) 1,000 mcg/mL injection solution RxNorm: 215016 1 Milliliter(s) Inj 09/15/2018 09/15/2018 Inactive Kenalog 40 mg/mL suspension for injection RxNorm: 0624671 Milliliter(s) Inj 09/15/2018 09/15/2018 Inactive alprazolam 1 mg tablet RxNorm: 651570 1/2 Tablet(s) PO TID 08/10/2018 11/05/2018 Inactive cyanocobalamin (vit B-12) 1,000 mcg/mL injection solution RxNorm: 487544 Milliliter(s) Inj 08/04/2018 08/04/2018 Inactive alprazolam 1 mg tablet RxNorm: 910691 1/2 Tablet(s) PO BID 08/04/2018 08/09/2018 Inactive cholestyramine (with sugar) 4 gram powder for susp in a packet RxNorm: 848243 1/2 to 1 packet PO TID take 30 minutes before meals 07/22/2018 12/21/2018 Inactive cyanocobalamin (vit B-12) 1,000 mcg/mL injection solution RxNorm: 828741 1 Milliliter(s) Inj 07/16/2018 07/16/2018 Inactive omeprazole 20 mg capsule,delayed release RxNorm: 414150 Capsule(s) TAKE 1 CAPSULE TWICE DAILY 07/01/2018 06/25/2019 Active cyanocobalamin (vit B-12) 1,000 mcg/mL injection solution RxNorm: 086371 Milliliter(s) Inj 07/01/2018 07/01/2018 Inactive omeprazole 20 mg capsule,delayed release RxNorm: 079221 TAKE 1 CAPSULE TWICE DAILY 07/01/2018 06/30/2018 Inactive alprazolam 1 mg tablet RxNorm: 031526 1 Tablet(s) PO TID 07/01/2018 08/03/2018 Inactive cyanocobalamin (vit B-12) 1,000 mcg/mL injection solution RxNorm: 430537 Milliliter(s) Inj 06/15/2018 06/15/2018 Inactive cyanocobalamin (vit B-12) 1,000 mcg/mL injection solution RxNorm: 145254 Milliliter(s) Inj 06/02/2018 06/02/2018 Inactive fluticasone 50 mcg/actuation nasal spray,suspension RxNorm: 5166821 1 [place] NASAL BID 05/26/2018 05/20/2019 Active Vitamin B-12 1,000 mcg/mL injection solution RxNorm: 646206 1 Milliliter(s) Inj Q2 weeks x2 months and then monthly injections 05/21/2018 No Stop Date Active cyanocobalamin (vit B-12) 1,000 mcg/mL injection solution RxNorm: 894068 Milliliter(s) Inj 05/21/2018 05/21/2018 Inactive fluticasone 50 mcg/actuation nasal spray,suspension RxNorm: 0319578 1 [place] NASAL BID 05/19/2018 05/25/2018 Inactive fluticasone 50 mcg/actuation nasal spray,suspension RxNorm: 6248978 1 [place] NASAL BID 05/18/2018 05/18/2018 Inactive fluticasone 50 mcg/actuation nasal spray,suspension RxNorm: 5078888 1 [place] NASAL BID 05/15/2018 05/17/2018 Inactive fluticasone 50 mcg/actuation nasal spray,suspension RxNorm: 0824660 1 [place] NASAL BID 05/15/2018 05/14/2018 Inactive nystatin 100,000 unit/mL oral suspension RxNorm: 293758 5 Milliliter(s) PO QID 04/21/2018 04/30/2018 Inactive Breo Ellipta 100 mcg-25 mcg/dose powder for inhalation RxNorm: 7289426 1 INH daily 04/09/2018 04/03/2019 Active please call patient with jaramillo before sending prednisone 20 mg tablet RxNorm: 140739 1 Tablet(s) PO BID 04/09/2018 04/13/2018 Inactive start tomorrow Kenalog 40 mg/mL suspension for injection RxNorm: 9862071 1.5 Milliliter(s) Inj 04/09/2018 04/09/2018 Inactive Breo Ellipta 100 mcg-25 mcg/dose powder for inhalation RxNorm: 2347216 1 INH daily 04/09/2018 04/08/2018 Inactive alprazolam 1 mg tablet RxNorm: 938543 1 Tablet(s) PO TID 03/13/2018 06/30/2018 Inactive losartan 100 mg tablet RxNorm: 546341 TAKE 1 TABLET EVERY EVENING 03/02/2018 11/05/2018 Inactive Ventolin HFA 90 mcg/actuation aerosol inhaler RxNorm: 531543 2 INH Q4-6H as needed 12/29/2017 02/26/2018 Inactive Ventolin HFA 90 mcg/actuation aerosol inhaler RxNorm: 350698 2 INH Q4-6H as needed 12/29/2017 12/28/2017 Inactive Diflucan 150 mg tablet RxNorm: 384078 1 Tablet(s) PO daily 11/03/2017 11/05/2017 Inactive please call pt to let herknow when to pick- up the med Keflex 500 mg capsule RxNorm: 031331 1 Capsule(s) PO TID 10/23/2017 10/29/2017 Inactive Kenalog 40 mg/mL suspension for injection RxNorm: 8711150 1 Milliliter(s) Inj 10/16/2017 10/16/2017 Inactive ibuprofen 800 mg tablet RxNorm: 332505 TAKE 1 TABLET THREE TIMES DAILY 10/15/2017 09/27/2018 Inactive Lexapro 10 mg tablet RxNorm: 221624 TAKE 1 TABLET EVERY DAY 10/15/2017 10/09/2018 Inactive hydrocodone 5 mg-acetaminophen 325 mg tablet RxNorm: 834496 1 Tablet(s) PO QID as needed 09/03/2017 07/21/2018 Inactive omeprazole 20 mg capsule,delayed release RxNorm: 813221 1 Capsule(s) PO BID 09/02/2017 06/30/2018 Inactive alprazolam 1 mg tablet RxNorm: 464802 1 Tablet(s) PO TID 09/02/2017 03/12/2018 Inactive metoprolol tartrate 50 mg tablet RxNorm: 100748 1/2 Tablet(s) PO BID 06/26/2017 06/20/2018 Inactive omeprazole 20 mg capsule,delayed release RxNorm: 453530 1 Capsule(s) PO BID 06/05/2017 09/01/2017 Inactive omeprazole 20 mg capsule,delayed release RxNorm: 450192 1 Capsule(s) PO BID 05/28/2017 06/04/2017 Inactive omeprazole 20 mg capsule,delayed release RxNorm: 063326 1 Capsule(s) PO QPM 05/27/2017 05/27/2017 Inactive Breo Ellipta 100 mcg-25 mcg/dose powder for inhalation RxNorm: 7697068 1 INH daily 05/05/2017 04/08/2018 Inactive alprazolam 1 mg tablet RxNorm: 822703 1 Tablet(s) PO TID 02/10/2017 08/07/2017 Inactive metoprolol tartrate 50 mg tablet RxNorm: 113239 1/2 Tablet(s) PO BID 02/10/2017 06/25/2017 Inactive losartan 100 mg tablet RxNorm: 817172 1 Tablet(s) PO QPM 02/10/2017 02/04/2018 Inactive losartan 50 mg tablet RxNorm: 978275 2 Tablet(s) PO QPM 01/23/2017 02/09/2017 Inactive Diflucan 150 mg tablet RxNorm: 485336 1 Tablet(s) PO daily 01/20/2017 01/22/2017 Inactive please call pt to let herknow when to pick- up the med Diflucan 150 mg tablet RxNorm: 057882 1 Tablet(s) PO daily 01/20/2017 01/19/2017 Inactive please call pt to let herknow when to pick- up the med losartan 50 mg tablet RxNorm: 410112 1 Tablet(s) PO QPM 01/14/2017 01/22/2017 Inactive Cipro 500 mg tablet RxNorm: 514455 1 Tablet(s) PO BID 01/08/2017 01/17/2017 Inactive Cipro 500 mg tablet RxNorm: 125176 1 Tablet(s) PO BID 01/08/2017 01/07/2017 Inactive Lexapro 10 mg tablet RxNorm: 481514 TAKE 1 TABLET EVERY DAY 12/20/2016 10/14/2017 Inactive metoprolol tartrate 50 mg tablet RxNorm: 426403 1 Tablet(s) PO in the morning and 1.5 pill at night 12/11/2016 01/13/2017 Inactive spironolactone 25 mg tablet RxNorm: 079157 TAKE 1 TABLET EVERY DAY 11/04/2016 07/21/2018 Inactive metoprolol tartrate 50 mg tablet RxNorm: 292343 TAKE 1 TABLET TWICE DAILY 10/29/2016 12/10/2016 Inactive ibuprofen 800 mg tablet RxNorm: 343947 TAKE 1 TABLET THREE TIMES DAILY 10/21/2016 10/14/2017 Inactive Astepro 0.15 % (205.5 mcg) nasal spray RxNorm: 2559115 1 [place] NASAL BID 10/15/2016 10/14/2016 Inactive Astepro 0.15 % (205.5 mcg) nasal spray RxNorm: 1240312 1 [place] NASAL BID 10/15/2016 07/21/2018 Inactive Astepro 0.15 % (205.5 mcg) nasal spray RxNorm: 6727934 1 [place] NASAL BID 10/15/2016 10/14/2016 Inactive omeprazole 20 mg capsule,delayed release RxNorm: 413549 1 Capsule(s) PO QPM 10/15/2016 05/26/2017 Inactive omeprazole 20 mg capsule,delayed release RxNorm: 786809 1 Capsule(s) QPM 10/15/2016 10/14/2016 Inactive omeprazole 20 mg capsule,delayed release RxNorm: 040349 TAKE 1 CAPSULE TWICE DAILY 09/02/2016 10/14/2016 Inactive Lexapro 10 mg tablet RxNorm: 802886 TAKE 1 TABLET EVERY DAY 08/21/2016 12/19/2016 Inactive calcitonin (salmon) 200 unit/actuation nasal spray RxNorm: 933444 1 [place] NASAL daily ONE SPRAY PER ONE NOSTRIL DAILY- ALTERNATE NOSTRILS DAILY 05/31/2016 05/30/2016 Inactive She will do this for 3 months- If she wants to do a 3 month supply at one time she can without refill calcitonin (salmon) 200 unit/actuation nasal spray RxNorm: 653131 1 [place] NASAL daily ONE SPRAY PER ONE NOSTRIL DAILY- ALTERNATE NOSTRILS DAILY 05/31/2016 07/30/2016 Inactive x3 months- no refills Forteo 20 mcg/dose (600 mcg/2.4 mL) subcutaneous pen injector RxNorm: 4500264 1 injection SQ daily 05/22/2016 05/30/2016 Inactive call pt with jaramillo first Forteo 20 mcg/dose (600 mcg/2.4 mL) subcutaneous pen injector RxNorm: 4433619 1 injection SQ daily 05/22/2016 05/21/2016 Inactive Prolia 60 mg/mL subcutaneous syringe RxNorm: 737188 1 Milliliter(s) SQ every 6 months 05/13/2016 07/21/2018 Inactive Please check jaramillo through insurance and let me know- Thanks! Mary Ellen alprazolam 1 mg tablet RxNorm: 301719 1 Tablet(s) PO TID 05/08/2016 11/01/2016 Inactive Lexapro 10 mg tablet RxNorm: 424463 TAKE 1 TABLET EVERY DAY 04/22/2016 08/20/2016 Inactive spironolactone 25 mg tablet RxNorm: 849735 TAKE 1 TABLET EVERY DAY 04/22/2016 11/03/2016 Inactive Diflucan 150 mg tablet RxNorm: 424205 1 Tablet(s) PO daily 03/20/2016 04/14/2016 Inactive Diflucan 150 mg tablet RxNorm: 049701 1 Tablet(s) PO daily 03/20/2016 03/19/2016 Inactive Augmentin 500 mg-125 mg tablet RxNorm: 907097 1 Tablet(s) PO TID 03/14/2016 03/23/2016 Inactive omeprazole 20 mg capsule,delayed release RxNorm: 377927 1 Tablet(s) PO BID 03/06/2016 09/01/2016 Inactive [SAVINGS FOR NON-COVERED DRUGS -- BIN:010704, PCN: ASPROD1, Group: XXXXX, ID# XXXXXXX, Questions: . THIS IS NOT INSURANCE.] amlodipine 5 mg tablet RxNorm: 505753 TAKE 1 TABLET EVERY DAY 03/01/2016 04/22/2016 Inactive omeprazole 20 mg tablet,delayed release RxNorm: 738822 1 Tablet(s) PO BID 02/27/2016 03/05/2016 Inactive [SAVINGS FOR NON-COVERED DRUGS -- BIN:962171, PCN: ASPROD1, Group: XXXXX, ID# XXXXXXX, Questions: . THIS IS NOT INSURANCE.] spironolactone 25 mg tablet RxNorm: 068627 TAKE 1 TABLET EVERY DAY 12/21/2015 04/21/2016 Inactive Lexapro 10 mg tablet RxNorm: 607624 1 Tablet(s) PO daily 12/19/2015 01/01/2016 Inactive Lexapro 10 mg tablet RxNorm: 792668 1 Tablet(s) PO daily 12/19/2015 02/09/2017 Inactive Lexapro 10 mg tablet RxNorm: 883121 1 Tablet(s) PO daily 12/19/2015 12/18/2015 Inactive alprazolam 1 mg tablet RxNorm: 920501 1 Tablet(s) PO TID 12/01/2015 02/28/2016 Inactive ibuprofen 800 mg tablet RxNorm: 033789 1 Tablet(s) PO TID 10/26/2015 10/20/2016 Inactive alprazolam 1 mg tablet RxNorm: 881670 1 Tablet(s) PO TID 08/23/2015 07/21/2018 Inactive spironolactone 25 mg tablet RxNorm: 864261 1 Tablet(s) PO daily 08/21/2015 12/20/2015 Inactive metoprolol tartrate 50 mg tablet RxNorm: 184443 1 Tablet(s) PO BID 08/10/2015 08/03/2016 Inactive [SAVINGS FOR NON-COVERED DRUGS -- BIN:140826, PCN: ASPROD1, Group: XXXXX, ID# XXXXXXX, Questions: . THIS IS NOT INSURANCE.] omeprazole 20 mg tablet,delayed release RxNorm: 622796 1 Tablet(s) PO BID 08/07/2015 02/02/2016 Inactive [SAVINGS FOR NON-COVERED DRUGS -- BIN:611106, PCN: ASPROD1, Group: XXXXX, ID# XXXXXXX, Questions: . THIS IS NOT INSURANCE.] Keflex 500 mg capsule RxNorm: 180141 1 Capsule(s) PO TID 07/10/2015 07/16/2015 Inactive alprazolam 1 mg tablet RxNorm: 545847 1 Tablet(s) PO TID 06/02/2015 08/22/2015 Inactive alprazolam 1 mg tablet RxNorm: 870539 1 Tablet(s) PO TID 03/29/2015 06/01/2015 Inactive amlodipine 5 mg tablet RxNorm: 729956 1 Tablet(s) PO daily 03/06/2015 02/29/2016 Inactive Nasonex 50 mcg/actuation [place] RxNorm: 378470 1 [place] NASAL daily 03/03/2015 03/02/2015 Inactive Keflex 500 mg capsule RxNorm: 823836 1 Capsule(s) PO TID 03/03/2015 03/02/2015 Inactive Nasonex 50 mcg/actuation [place] RxNorm: 099192 1 [place] NASAL daily 03/03/2015 05/01/2015 Inactive Keflex 500 mg capsule RxNorm: 045481 1 Capsule(s) PO TID 03/03/2015 03/05/2015 Inactive Carafate 1 gram tablet RxNorm: 663357 TAKE 1 TABLET FOUR TIMES DAILY 30 MINUTES BEFORE MEALS AND AT BEDTIME 02/28/2015 12/18/2015 Inactive Kenalog 40 mg/mL suspension for injection RxNorm: 5558305 Milliliter(s) Inj 02/07/2015 02/07/2015 Inactive [SAVINGS FOR NON-COVERED DRUGS -- BIN:766602, PCN: ASPROD1, Group: XXXXX, ID# XXXXXXX, Questions: . THIS IS NOT INSURANCE.] metoprolol tartrate 50 mg tablet RxNorm: 865100 1 Tablet(s) PO BID 02/07/2015 08/09/2015 Inactive [SAVINGS FOR NON-COVERED DRUGS -- BIN:769197, PCN: ASPROD1, Group: XXXXX, ID# XXXXXXX, Questions: . THIS IS NOT INSURANCE.] Carafate 1 gram tablet RxNorm: 143826 1 Tablet(s) PO QID 02/07/2015 02/27/2015 Inactive 30 min before meals and at bedtime omeprazole 20 mg tablet,delayed release RxNorm: 210265 1 Tablet(s) PO BID 02/07/2015 08/05/2015 Inactive [SAVINGS FOR NON-COVERED DRUGS -- BIN:756711, PCN: ASPROD1, Group: XXXXX, ID# XXXXXXX, Questions: . THIS IS NOT INSURANCE.] Vitamin D3 2,000 unit tablet RxNorm: 258310 1 Tablet(s) PO daily No Start Date Active aspirin 81 mg tablet RxNorm: 993853 1 Tablet(s) PO daily No Start Date Active amlodipine 2.5 mg tablet RxNorm: 183624 1 Tablet(s) PO daily No Start Date 03/05/2015 Inactive spironolactone 25 mg tablet RxNorm: 478353 1 Tablet(s) PO daily No Start Date 08/20/2015 Inactive cetirizine 10 mg tablet RxNorm: 2713159 1 Tablet(s) PO daily No Start Date 12/18/2015 Inactive metoprolol tartrate 50 mg tablet RxNorm: 587805 1 Tablet(s) PO daily No Start Date 02/06/2015 Inactive ipratropium bromide 0.06 % nasal spray RxNorm: 133453 nasal No Start Date 12/18/2015 Inactive alprazolam 1 mg tablet RxNorm: 676577 1 Tablet(s) PO TID No Start Date 03/28/2015 Inactive Prolia 60 mg/mL subcutaneous syringe RxNorm: 515176 1 Milliliter(s) SQ every 6 months No Start Date 05/12/2016 Inactive Please check jaramillo through insurance and let me know- Thanks! Mary Ellen ibuprofen 800 mg tablet RxNorm: 474100 1 Tablet(s) PO TID No Start Date 10/25/2015 Inactive Protonix 40 mg tablet,delayed release RxNorm: 818336 1 Tablet(s) PO daily No Start Date 03/05/2015 Inactive Vitamin B-12 1,000 mcg/mL injection solution RxNorm: 550189 1 Milliliter(s) Inj Q2 weeks x2 months and then monthly injections No Start Date 05/20/2018 Inactive loratadine 10 mg tablet RxNorm: 390251 1 Tablet(s) PO daily No Start Date 07/21/2018 Inactive Medication Administered Medication Codes Instructions Start Date Status cyanocobalamin (vit B-12) 1,000 mcg/mL injection solution RxNorm: 014944 Milliliter 12/22/2018 No longer Active cyanocobalamin (vit B-12) 1,000 mcg/mL injection solution RxNorm: 706996 1Milliliter 10/01/2018 No longer Active Kenalog 40 mg/mL suspension for injection RxNorm: 9849494 Milliliter 09/15/2018 No longer Active cyanocobalamin (vit B-12) 1,000 mcg/mL injection solution RxNorm: 657901 1Milliliter 09/15/2018 No longer Active cyanocobalamin (vit B-12) 1,000 mcg/mL injection solution RxNorm: 411935 Milliliter 08/04/2018 No longer Active cyanocobalamin (vit B-12) 1,000 mcg/mL injection solution RxNorm: 506062 1Milliliter 07/16/2018 No longer Active cyanocobalamin (vit B-12) 1,000 mcg/mL injection solution RxNorm: 568985 Milliliter 07/01/2018 No longer Active cyanocobalamin (vit B-12) 1,000 mcg/mL injection solution RxNorm: 902464 Milliliter 06/15/2018 No longer Active cyanocobalamin (vit B-12) 1,000 mcg/mL injection solution RxNorm: 767081 Milliliter 06/02/2018 No longer Active cyanocobalamin (vit B-12) 1,000 mcg/mL injection solution RxNorm: 264595 Milliliter 05/21/2018 No longer Active Kenalog 40 mg/mL suspension for injection RxNorm: 8224437 1.5Milliliter 04/09/2018 No longer Active Kenalog 40 mg/mL suspension for injection RxNorm: 5831892 1Milliliter 10/16/2017 No longer Active Kenalog 40 mg/mL suspension for injection RxNorm: 7717001 Milliliter 02/07/2015 No longer Active Immunizations Vaccine [...] Item Item Code Result Date Comp Metabolic Ong072 NA 138 mEq/L 09/03/2017 Comp Metabolic Fxp935 K 3.9 mEq/L 09/03/2017 Comp Metabolic Bwk669 CL 102 mEq/L 09/03/2017 Comp Metabolic Dpu683 CO2 32.0 mEq/L 09/03/2017 Comp Metabolic Bit061 ANION GAP 8 09/03/2017 Comp Metabolic Rpt622 GLUCOSE 89 mg/dL 09/03/2017 Comp Metabolic Sgx216 Creat 0.6 mg/dL 09/03/2017 Comp Metabolic Tzc026 eGFR 103 ml/min/1.73m2 09/03/2017 Comp Metabolic Dnm294 BUN 10 mg/dL 09/03/2017 Comp Metabolic Ozf381 B/C Ratio 16.7 Ratio 09/03/2017 Comp Metabolic Jli750 CALCIUM 8.9 mg/dL 09/03/2017 Comp Metabolic Izm023 ALK PHOS 141 U/L 09/03/2017 Comp Metabolic Kdb836 AST(SGOT) 12 U/L 09/03/2017 Comp Metabolic Nso194 ALT(SGPT) 7 U/L 09/03/2017 Comp Metabolic Kzl757 BILI T 0.6 mg/dL 09/03/2017 Comp Metabolic Kxe179 ALBUMIN 3.6 g/dL 09/03/2017 Comp Metabolic Lxv721 TPRO 6.6 g/dL 09/03/2017 Comp Metabolic Pfe786 GLOB 3.0 g/dL 09/03/2017 Comp Metabolic Omw897 A/G Ratio 1.2 Ratio 09/03/2017 Comp Metabolic Hqp851 Osmo 274 mOsmo 09/03/2017 Hepatic Keo736 ALBUMIN 3.7 g/dL 08/11/2017 Hepatic Pno313 TPRO 7.0 g/dL 08/11/2017 Hepatic Okz548 GLOB 3.3 g/dL 08/11/2017 Hepatic Cco101 A/G Ratio 1.1 Ratio 08/11/2017 Hepatic Yms203 ALK PHOS 85 U/L 08/11/2017 Hepatic Ccb850 ALT(SGPT) 11 U/L 08/11/2017 Hepatic Cgh036 AST(SGOT) 16 U/L 08/11/2017 Hepatic Tak787 BILI T 0.6 mg/dL 08/11/2017 Hepatic Upj687 BILI D 0.1 mg/dL 08/11/2017 Hepatic Lsu700 BILI I 0.5 mg/dL 08/11/2017 Hepatic Cpj248 ALBUMIN 3.1 g/dL 07/18/2017 Hepatic Btb377 TPRO 5.9 g/dL 07/18/2017 Hepatic Dbm478 GLOB 2.8 g/dL 07/18/2017 Hepatic Lwz719 A/G Ratio 1.1 Ratio 07/18/2017 Hepatic The336 ALK PHOS 123 U/L 07/18/2017 Hepatic Pli096 ALT(SGPT) 210 U/L 07/18/2017 Hepatic Ztd509 AST(SGOT) 71 U/L 07/18/2017 Hepatic Esp564 BILI T 1.1 mg/dL 07/18/2017 Hepatic Gfc149 BILI D 0.4 mg/dL 07/18/2017 Hepatic Sdt999 BILI I 0.7 mg/dL 07/18/2017 Cbc With [...] 32.4 pg 02/25/2017 Cbc With Differential Ord2 [place]% 7.6 % 02/25/2017 Cbc With Differential Ord2 [...] 1.22 K/ul 02/25/2017 Cbc With Differential Ord2 [place] ABS# 0.4 K/ul 02/25/2017 Cbc With Differential [...] 32.3 pg 01/02/2017 Cbc With Differential Ord2 [place]% 7.8 % 01/02/2017 Cbc With Differential Ord2 [...] 0.90 K/ul 01/02/2017 Cbc With Differential Ord2 [place] ABS# 0.4 K/ul 01/02/2017 Cbc With Differential Ord2 Eos ABS# 0.3 K/ul 01/02/2017 Cbc With Differential Ord2 Baso ABS# 0.0 K/ul 01/02/2017 Lipid Ord30 CHOL 139 mg/dL 12/13/2016 Lipid Ord30 HDL 48.0 mg/dl 12/13/2016 Lipid Ord30 TRIG 84 mg/dL 12/13/2016 Lipid Ord30 LDL 74 mg/dL 12/13/2016 Lipid Ord30 C/HDL 2.9 Ratio 12/13/2016 Comp Metabolic Xlk531 NA 137 mEq/L 12/13/2016 Comp Metabolic Tyy670 K 4.8 mEq/L 12/13/2016 Comp Metabolic Kgh007 CL 101 mEq/L 12/13/2016 Comp Metabolic Cdh418 CO2 32.0 mEq/L 12/13/2016 Comp Metabolic Asm854 ANION GAP 9 12/13/2016 Comp Metabolic Ceh251 GLUCOSE 95 mg/dL 12/13/2016 Comp Metabolic Zpl000 Creat 0.8 mg/dL 12/13/2016 Comp Metabolic Adb726 eGFR 79 ml/min/1.73m2 12/13/2016 Comp Metabolic Ume666 BUN 15 mg/dL 12/13/2016 Comp Metabolic Gvw797 B/C Ratio 19.7 Ratio 12/13/2016 Comp Metabolic Ymw835 CALCIUM 9.3 mg/dL 12/13/2016 Comp Metabolic Ucb743 ALK PHOS 63 U/L 12/13/2016 Comp Metabolic Bke432 AST(SGOT) 15 U/L 12/13/2016 Comp Metabolic Siv091 ALT(SGPT) 10 U/L 12/13/2016 Comp Metabolic Fvf922 BILI T 0.7 mg/dL 12/13/2016 Comp Metabolic Rav157 ALBUMIN 3.7 g/dL 12/13/2016 Comp Metabolic Vxp277 TPRO 6.8 g/dL 12/13/2016 Comp Metabolic Bvg812 GLOB 3.2 g/dL 12/13/2016 Comp Metabolic Hkk958 A/G Ratio 1.2 Ratio 12/13/2016 Comp Metabolic Ddw261 Osmo 274 mOsmo 12/13/2016 Cbc With Differential [...] 31.9 pg 12/13/2016 Cbc With Differential Ord2 [place]% 9.9 % 12/13/2016 Cbc With Differential Ord2 [...] 1.17 K/ul 12/13/2016 Cbc With Differential Ord2 [place] ABS# 0.4 K/ul 12/13/2016 Cbc With Differential [...] 32.1 pg 12/19/2015 Cbc With Differential Ord2 [place]% 5.9 % 12/19/2015 Cbc With Differential Ord2 [...] 1.53 K/ul 12/19/2015 Cbc With Differential Ord2 [place] ABS# 0.3 K/ul 12/19/2015 Cbc With Differential [...] Ord30 C/HDL 2.8 Ratio 12/19/2015 Comp Metabolic Tdr789 NA 135 mEq/L 12/19/2015 Comp Metabolic Fuj417 K 4.1 mEq/L 12/19/2015 Comp Metabolic Rik100 CL 99 mEq/L 12/19/2015 Comp Metabolic Kop264 CO2 27.0 mEq/L 12/19/2015 Comp Metabolic Xbh521 ANION GAP 13 12/19/2015 Comp Metabolic Jtk285 GLUCOSE 83 mg/dL 12/19/2015 Comp Metabolic Qkn501 Creat 0.7 mg/dL 12/19/2015 Comp Metabolic Ihu714 eGFR 88 ml/min/1.73m2 12/19/2015 Comp Metabolic Hcg901 BUN 12 mg/dL 12/19/2015 Comp Metabolic Vtt414 B/C Ratio 17.4 Ratio 12/19/2015 Comp Metabolic Dtl345 CALCIUM 9.0 mg/dL 12/19/2015 Comp Metabolic Qdz999 ALK PHOS 68 U/L 12/19/2015 Comp Metabolic Adz622 AST(SGOT) 16 U/L 12/19/2015 Comp Metabolic Guj186 ALT(SGPT) 13 U/L 12/19/2015 Comp Metabolic Itv942 BILI T 0.7 mg/dL 12/19/2015 Comp Metabolic Sgm245 ALBUMIN 4.0 g/dL 12/19/2015 Comp Metabolic Vql864 TPRO 7.0 g/dL 12/19/2015 Comp Metabolic Ybx234 GLOB 3.0 g/dL 12/19/2015 Comp Metabolic Lgw766 A/G Ratio 1.3 Ratio 12/19/2015 Comp Metabolic Uyi593 Osmo 269 mOsmo 12/19/2015 Review of Systems [...] 4: G0439 12/30/2018 THER/PROPH/DIAG INJ SC/IM CPT-4: 32461 12/22/2018 VITAMIN B12 INJECTION CPT- 4: J3420 12/22/2018 THER/PROPH/DIAG INJ SC/IM CPT-4: 16417 10/01/2018 VITAMIN B12 INJECTION CPT- 4: J3420 10/01/2018 THER/PROPH/DIAG INJ SC/IM CPT-4: 48094 09/15/2018 VITAMIN B12 INJECTION CPT- 4: J3420 09/15/2018 TRIAMCINOLONE ACET INJ NOS CPT-4: J3301 09/15/2018 THER/PROPH/DIAG INJ SC/IM CPT-4: 82277 08/04/2018 VITAMIN B12 INJECTION CPT- 4: J3420 08/04/2018 THER/PROPH/DIAG INJ SC/IM CPT-4: 10022 07/16/2018 VITAMIN B12 INJECTION CPT- 4: J3420 07/16/2018 THER/PROPH/DIAG INJ SC/IM CPT-4: 56493 07/01/2018 VITAMIN B12 INJECTION CPT- 4: J3420 07/01/2018 ADMIN INFLUENZA VIRUS VAC CPT-4: G0008 06/25/2018 FLU VACC PRSV FREE INC ANTIG Formatting Model/CDA Sections, Assigned to/Miranda Ayala CPT-4: 92542Rfcwbes 06/25/2018 THER/PROPH/DIAG INJ SC/IM CPT-4: 18499 06/15/2018 VITAMIN B12 INJECTION CPT- 4: J3420 06/15/2018 THER/PROPH/DIAG INJ SC/IM CPT-4: 34039 06/02/2018 VITAMIN B12 INJECTION CPT- 4: J3420 06/02/2018 THER/PROPH/DIAG INJ SC/IM CPT-4: 48125 05/21/2018 VITAMIN B12 INJECTION CPT- 4: J3420 05/21/2018 TRIAMCINOLONE ACET INJ NOS CPT-4: J3301 04/09/2018 PPPS, SUBSEQ VISIT CPT- 4: G0439 12/18/2017 TRIAMCINOLONE ACET INJ NOS CPT-4: J3301 10/16/2017 DRAIN/INJECT JOINT/BURSA CPT-4: 68898 10/16/2017 PRESCRIP TRANSMIT VIA ERX SY CPT-4: G8553 05/05/2017 PRESCRIP TRANSMIT VIA ERX SY CPT-4: G8553 01/14/2017 PPPS, SUBSEQ VISIT CPT- 4: G0439 12/12/2016 PRESCRIP TRANSMIT VIA ERX SY CPT-4: G8553 10/15/2016 ADMIN PNEUMOCOCCAL VACCINE SNOMED CT: [id number] CPT-4: G0009 08/28/2016 Pneumococcal Polysaccharide Vaccine, 23-Valent, Ad CPT-4: 98640 08/28/2016 PRESCRIP TRANSMIT VIA ERX SY CPT-4: G8553 03/14/2016 PRESCRIP TRANSMIT VIA ERX SY CPT-4: G8553 12/19/2015 THER/PROPH/DIAG INJ SC/IM CPT-4: 56507 02/07/2015 TRIAMCINOLONE ACET INJ NOS CPT-4: J3301 02/07/2015 Vital Signs Date Vital 12/30/2018 Blood Pressure 1: 112/68 Code: 8480-6 BMI: 24.0 Code: 37944-2 Heart Rate 1: 66 bpm Height: 5'1" SpO2: 96% Weight: 127 lbs 12/22/2018 Blood Pressure 1: 110/72 Code: 8480-6 BMI: 24.0 Code: 36293-5 Heart Rate 1: 64 bpm Height: 5'1" SpO2: 95% Weight: 127 lbs 09/15/2018 Blood Pressure 1: 106/70 Code: 8480-6 BMI: 24.9 Code: 54831-6 Heart Rate 1: 74 bpm Height: 5'1" SpO2: 95% Weight: 132 lbs 08/18/2018 Blood Pressure 1: 128/70 Code: 8480-6 BMI: 25.1 Code: 66872-2 Heart Rate 1: 74 bpm Height: 5'1" SpO2: 95% Weight: 133 lbs 08/04/2018 Blood Pressure 1: 120/80 Code: 8480-6 Blood Pressure 1: 122/80 Code: 8480-6 Blood Pressure 2: 120/82 Code: 8480-6 BMI: 25.5 Code: 73090-1 Heart Rate 1: 63 bpm Heart Rate 1: 67 bpm Height: 5'1" Weight: 135 lbs Weight: 07/22/2018 Blood Pressure 1: 120/82 Code: 8480-6 BMI: 24.9 Code: 49853-4 Heart Rate 1: 64 bpm Height: 5'1" SpO2: 95% Weight: 132 lbs 04/21/2018 Blood Pressure 1: 108/70 Code: 8480-6 BMI: 24.4 Code: 70545-4 Heart Rate 1: 62 bpm Height: 5'1" SpO2: 94% Weight: 129 lbs 04/09/2018 Blood Pressure 1: 138/86 Code: 8480-6 BMI: 25.5 Code: 29653-8 Heart Rate 1: 64 bpm Height: 5'1" SpO2: 99% Temperature: 36.4 (C) / 97.5 (F) Weight: 135 lbs 01/19/2018 Blood Pressure 1: 128/76 Code: 8480-6 BMI: 25.9 Code: 22707-7 Heart Rate 1: 65 bpm Height: 5'1" SpO2: 98% Weight: 137 lbs 12/18/2017 Blood Pressure 1: 144/82 Code: 8480-6 BMI: 26.1 Code: 65431-1 Heart Rate 1: 57 bpm Height: 5'1" SpO2: 97% Waist Measure (cm): 74 cm Weight: 138 lbs 10/16/2017 Blood Pressure 1: 142/88 Code: 8480-6 BMI: 25.5 Code: 22236-8 Heart Rate 1: 63 bpm Height: 5'1" SpO2: 97% Weight: 135 lbs 09/03/2017 Blood Pressure 1: 144/90 Code: 8480-6 BMI: 26.3 Code: 48813-1 Heart Rate 1: 91 bpm Height: 5'1" SpO2: 96% Weight: 139 lbs 07/31/2017 Blood Pressure 1: 136/90 Code: 8480-6 BMI: 26.3 Code: 35586-3 Height: 5'1" Weight: 139 lbs 07/18/2017 Blood Pressure 1: 136/84 Code: 8480-6 06/16/2017 Blood Pressure 1: 136/84 Code: 8480-6 BMI: 26.5 Code: 16694-1 Heart Rate 1: 72 bpm Height: 5'1" SpO2: 97% Weight: 140 lbs 05/28/2017 Blood Pressure 1: 138/78 Code: 8480-6 BMI: 26.1 Code: 69431-1 Heart Rate 1: 70 bpm Height: 5'1" SpO2: 98% Weight: 138 lbs 05/05/2017 Blood Pressure 1: 140/86 Code: 8480-6 BMI: 25.3 Code: 59168-1 Heart Rate 1: 66 bpm Height: 5'1" SpO2: 99% Weight: 134 lbs 03/13/2017 Blood Pressure 1: 126/74 Code: 8480-6 BMI: 25.3 Code: 13587-5 Heart Rate 1: 73 bpm Height: 5'1" SpO2: 98% Weight: 134 lbs 02/10/2017 Blood Pressure 1: 148/88 Code: 8480-6 BMI: 25.9 Code: 41009-6 Heart Rate 1: 84 bpm Height: 5'1" SpO2: 97% Weight: 137 lbs 01/14/2017 Blood Pressure 1: 134/86 Code: 8480-6 BMI: 25.7 Code: 90179-6 Heart Rate 1: 83 bpm Height: 5'1" SpO2: 95% Weight: 136 lbs 01/07/2017 Blood Pressure 1: 136/88 Code: 8480-6 BMI: 25.1 Code: 59921-1 Heart Rate 1: 86 bpm Height: 5'1" SpO2: 94% Weight: 133 lbs 01/02/2017 Blood Pressure 1: 122/68 Code: 8480-6 Blood Pressure 2: 116/78 Code: 8480-6 01/01/2017 Blood Pressure 1: 90/52 Code: 8480-6 BMI: 25.1 Code: 70983- 5 Heart Rate 1: 86 bpm Height: 5'1" SpO2: 99% Weight: 133 lbs 12/20/2016 Blood Pressure 1: 120/76 Code: 8480-6 12/12/2016 Blood Pressure 1: 130/72 Code: 8480-6 BMI: 24.8 Code: 01805-5 Heart Rate 1: 62 bpm Height: 5'1" SpO2: 98% Waist Measure (cm): 79 cm Weight: 131 lbs 12/11/2016 Blood Pressure 1: 132/70 Code: 8480-6 BMI: 24.8 Code: 98783-6 Heart Rate 1: 60 bpm Height: 5'1" Weight: 131 lbs 10/15/2016 Blood Pressure 1: 108/66 Code: 8480-6 BMI: 24.8 Code: 27243-9 Heart Rate 1: 60 bpm Height: 5'1" Weight: 131 lbs 07/17/2016 Blood Pressure 1: 128/82 Code: 8480-6 BMI: 25.3 Code: 22265-8 Heart Rate 1: 50 bpm Height: 5'2" Weight: 136 lbs 05/15/2016 Blood Pressure 1: 108/70 Code: 8480-6 BMI: 23.4 Code: 48248-6 Heart Rate 1: 54 bpm Height: 5'2" SpO2: 96% Weight: 126 lbs 04/23/2016 Blood Pressure 1: 112/60 Code: 8480-6 BMI: 23.6 Code: 70669-3 Heart Rate 1: 92 bpm Height: 5'2" SpO2: 95% Weight: 127 lbs 03/14/2016 Blood Pressure 1: 118/74 Code: 8480-6 BMI: 24.0 Code: 04680-6 Heart Rate 1: 51 bpm Height: 5'2" SpO2: 94% Temperature: 36.8 (C) / 98.3 (F) Weight: 129 lbs 02/19/2016 Blood Pressure 1: 110/62 Code: 8480-6 BMI: 23.4 Code: 14400-7 Heart Rate 1: 74 bpm Height: 5'2" SpO2: 97% Weight: 126 lbs 12/19/2015 Blood Pressure 1: 108/74 Code: 8480-6 BMI: 23.6 Code: 46533-5 Heart Rate 1: 52 bpm Height: 5'2" Weight: 127 lbs 03/06/2015 Blood Pressure 1: 136/88 Code: 8480-6 Heart Rate 1: 64 bpm Weight: 129 lbs 02/07/2015 Blood Pressure 1: 142/90 Code: 8480-6 BMI: 24.5 Code: 07845-1 Heart Rate 1: 82 bpm Height: 5'2" [...] data Encounters Encounter Performer Location Codes Date ([id number]) [id number] EST. PATIENT, LEVEL IV Diagnosis: Other vitamin B12 deficiency anemias[ICD10: D51.8] [facility] CPT-4: 89668 12/22/2018 ([id number]) 98162 EST. PATIENT, LEVEL IV Diagnosis: Chest pain, unspecified[ICD10: R07.9] Diagnosis: Other vitamin B12 deficiency anemias[ICD10: D51.8] Diagnosis: Other allergic rhinitis[ICD10: J30.89] [facility] CPT-4: 73857 09/15/2018 ([id number]) 06278 EST. PATIENT, LEVEL III Diagnosis: Essential (primary) hypertension[ICD10: I10] Diagnosis: Fecal urgency[ICD10: R15.2] Kim Burden MD, [facility] CPT-4: 11722 08/18/2018 ([id number]) 51685 EST. PATIENT, LEVEL IV Diagnosis: Other vitamin B12 deficiency anemias[ICD10: D51.8] Diagnosis: Essential (primary) hypertension[ICD10: I10] Diagnosis: Major depressive disorder, recurrent, mild[ICD10: F33.0] Diagnosis: Unsteadiness on feet[ICD10: R26.81] Kim Burden MD, [facility] CPT- 4: 58244 08/04/2018 ([id number]) 95883 EST. PATIENT, LEVEL IV Diagnosis: Fecal urgency[ICD10: R15.2] Diagnosis: Generalized abdominal pain[ICD10: R10.84] Diagnosis: Essential (primary) hypertension[ICD10: I10] Kim Burden MD, [facility] CPT-4: 88579 07/22/2018 ([id number]) 60187 EST. PATIENT, LEVEL IV Diagnosis: Essential (primary) hypertension[ICD10: I10] Diagnosis: Other emphysema[ICD10: J43.8] Diagnosis: Candidal stomatitis[ICD10: B37.0] Kim Burden MD, [facility] CPT- 4: 63738 04/21/2018 ([id number]) 93494 EST. PATIENT, LEVEL III Diagnosis: Chronic obstructive pulmonary disease with (acute) exacerbation[ICD10: J44.1] Mallorie Burden MD, [facility] CPT-4: 68139 04/09/2018 ([id number]) 04175 EST. PATIENT, LEVEL IV Diagnosis: Essential (primary) hypertension[ICD10: I10] Diagnosis: Other emphysema[ICD10: J43.8] Kim Burden MD, [facility] CPT-4: 99218 01/19/2018 ([id number]) 19979 EST. PATIENT, LEVEL IV Diagnosis: Essential (primary) hypertension[ICD10: I10] Diagnosis: Other emphysema[ICD10: J43.8] Diagnosis: Dependence on supplemental oxygen[ICD10: Z99.81] Diagnosis: Hypoxemia[ICD10: R09.02] Diagnosis: Pain in left knee[ICD10: M25.562] Diagnosis: Effusion, left knee[ICD10: M25.462] Kim Burden MD, [facility] CPT- 4: 32469 10/16/2017 12579 EST. PATIENT, LEVEL III Diagnosis: Pain in thoracic spine[ICD10: M54.6] Pebbles Burden MD, [facility] CPT- 4: 55438 09/03/2017 ([id number]) 06504 EST. PATIENT, LEVEL III Diagnosis: Essential (primary) hypertension[ICD10: I10] Diagnosis: Other emphysema[ICD10: J43.8] Kim Burden MD, [facility] CPT-4: 51684 07/31/2017 ([id number]) Miscellaneous no charge Diagnosis: Essential (primary) hypertension[ICD10: I10] Mallorie Burden MD, [facility] CPT-4: 56467 07/18/2017 ([id number]) 86853 EST. PATIENT, LEVEL III Diagnosis: Pain in left knee[ICD10: M25.562] Diagnosis: Effusion, left knee[ICD10: M25.462] Mallorie Burden MD, [facility] CPT-4: 01011 06/16/2017 ([id number]) 54894 EST. PATIENT, LEVEL III Diagnosis: Essential (primary) hypertension[ICD10: I10] Diagnosis: Unsteadiness on feet[ICD10: R26.81] Kim Burden MD, [facility] CPT- 4: 90264 05/28/2017 ([id number]) 28636 EST. PATIENT, LEVEL IV Diagnosis: Essential (primary) hypertension[ICD10: I10] Diagnosis: Chronic obstructive pulmonary disease with acute lower respiratory infection[ICD10: J44.0] Kim Burden MD, [facility] CPT-4: 71755 05/05/2017 ([id number]) 84148 EST. PATIENT, LEVEL IV Diagnosis: Essential (primary) hypertension[ICD10: I10] Diagnosis: Major depressive disorder, recurrent, mild[ICD10: F33.0] Kim Burden MD, [facility] CPT-4: 34606 03/13/2017 ([id number]) 21391 EST. PATIENT, LEVEL IV Diagnosis: Essential (primary) hypertension[ICD10: I10] Diagnosis: Gastro-esophageal reflux disease without esophagitis[ICD10: K21.9] Diagnosis: Chronic obstructive pulmonary disease, unspecified[ICD10: J44.9] Kim Burden MD, [facility] CPT-4: 40253 02/10/2017 ([id number]) 25716 EST. PATIENT, LEVEL IV Diagnosis: Essential (primary) hypertension[ICD10: I10] Diagnosis: Gastro-esophageal reflux disease without esophagitis[ICD10: K21.9] Diagnosis: Chronic obstructive pulmonary disease with acute lower respiratory infection[ICD10: J44.0] Kim Burden MD, [facility] CPT-4: 92157 01/14/2017 71245 EST. PATIENT, LEVEL IV Diagnosis: Other fatigue[ICD10: R53.83] Diagnosis: Other malaise[ICD10: R53.81] Diagnosis: Headache[ICD10: R51] Diagnosis: Palpitations[ICD10: R00.2] Diagnosis: Dehydration[ICD10: E86.0] Pebbles Burden MD, [facility] CPT-4: 77304 01/07/2017 ([id number]) Miscellaneous no charge Diagnosis: Essential (primary) hypertension[ICD10: I10] Pebbles Burden MD, [facility] CPT-4: 57443 01/02/2017 40238 EST. PATIENT, LEVEL IV Diagnosis: Chronic obstructive pulmonary disease, unspecified[ICD10: J44.9] Diagnosis: Essential (primary) hypertension[ICD10: I10] Diagnosis: Other fatigue[ICD10: R53.83] Pebbles Burden MD, [facility] CPT-4: 49921 01/01/2017 ([id number]) Miscellaneous no charge Diagnosis: Essential (primary) hypertension[ICD10: I10] Pebbles Burden MD, [facility] CPT-4: 71248 12/20/2016 ([id number]) 01666 EST. 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 PATIENT, LEVEL IV Diagnosis: Essential (primary) hypertension[ICD10: I10] Diagnosis: Other allergic rhinitis[ICD10: J30.89] Diagnosis: Gastro-esophageal reflux disease without esophagitis[ICD10: K21.9] Kim Burden MD [facility] CPT-4: 10158 10/15/2016 ([id number]) 18128 EST. PATIENT, LEVEL III Diagnosis: Essential (primary) hypertension[ICD10: I10] Diagnosis: Major depressive disorder, recurrent, mild[ICD10: F33.0] Kim Burden MD [facility] CPT-4: 82919 07/17/2016 ([id number]) 45262 EST. PATIENT, LEVEL III Diagnosis: Pain in left hip[ICD10: M25.552] Diagnosis: Acute laryngopharyngitis[ICD10: J06.0] Kim Burden MD [facility] CPT-4: 23436 05/15/2016 ([id number]) 08376 EST. PATIENT, LEVEL III Diagnosis: Fracture of unspecified parts of lumbosacral spine and pelvis, initial encounter for closed fracture[ICD10: S32.9XXA] Diagnosis: Essential (primary) hypertension[ICD10: I10] Kim Burden MD [facility] CPT-4: 03654 04/23/2016 93928 EST. PATIENT, LEVEL IV Diagnosis: Acute laryngopharyngitis[ICD10: J06.0] Diagnosis: Other allergic rhinitis[ICD10: J30.89] Pebbles Burden MD, [facility] CPT- 4: 03273 03/14/2016 45840 EST. PATIENT, LEVEL IV Diagnosis: Dysuria[ICD10: R30.0] Diagnosis: Left lower quadrant pain[ICD10: R10.32] Pebbles Burden MD, [facility] CPT-4: 83613 02/19/2016 ([id number]) 38820 EST. PATIENT, LEVEL IV Diagnosis: Essential (primary) hypertension[ICD10: I10] Diagnosis: Gastro-esophageal reflux disease without esophagitis[ICD10: K21.9] Diagnosis: Major depressive disorder, recurrent, mild[ICD10: F33.0] [facility] CPT-4: 98245 12/19/2015 ([id number]) 52029 EST. PATIENT, LEVEL IV Diagnosis: ESSENTIAL HYPERTENSION[ICD9: 401.9] Diagnosis: ACUTE URI[ICD9: 465.9] [facility] CPT-4: 60912 03/06/2015 ([id number]) OFFICE VISIT, NEW - LEVEL 4 Diagnosis: ESOPHAGEAL REFLUX[ICD9: 530.81] Diagnosis: ESSENTIAL HYPERTENSION[ICD9: 401.9] Diagnosis: COPD (chronic obstructive pulmonary disease)[ICD9: 496] Diagnosis: ALLERGIC RHINITIS[ICD9: 477.9] [facility] CPT-4: 79689 02/07/2015 Plan of Care Planned Activity Notes [...] Summary Completed 12/30/2018 Appointment: Mallorie Wetzel WPtel: [address] [place], [place] [phone] [facility] - Annual Wellness Visit 12/28/2018 [...] injection. 12/22/2018 Appointment: Kim Burden WPtel: [phone] [facility] [address] (15 min) Moderate 12/22/2018 Patient Education: Patient [...] Mallorie Wetzel WPtel: [phone] [place] (30 min) Complex 09/15/2018 Patient Education: Patient Medication Summary Completed 09/15/2018 Care Plan: Referral Order SNOMED-CT : [id number] Pending 09/15/2018 Appointment: Kim Burden WPtel: [facility] [address] [place] (15 min) Moderate 08/25/2018 Visit Plan: [...] a day. 08/18/2018 Appointment: Kim Burden WPtel: [facility] [address] [place] (15 min) Moderate 08/18/2018 Patient Education: [...] anxiolytic. 08/04/2018 Appointment: [facility] [address] [facility] [place] ([facility] min) Moderate 08/04/2018 Appointment: Nurse [...] at home. 07/22/2018 App[facility]ment: [phone] [place] (15 min) Moderate 07/22/2018 Patient Education: [...] swallow. 04/21/2018 Appointment: Kim Burden WPtel[facility] (15 min) Moderate 04/21/2018 Patient Education: Patient [...] Wetzel WPtel: [phone] [place] (30 min) Complex 04/09/2018 Patient Education: [...] Burden WPtel: [facility] [address] (15 min) Moderate 01/19/2018 Patient Education: Patient Medication Summary Completed 01/19/2018 Appointment: Kim Burden WPtel: [facility] [address] (15 min) Moderate 01/14/2018 Visit Plan: Medicare [...] care surrogate. 12/18/2017 Appointment: [facility]eb[phone] [facility] [facility] - Annual Wellness Visit 12/18/2017 [...] at home. 10/16/2017 Appointment: [phone] (15 min) Moderate 10/16/2017 Patient Education: Patient [...] or concerns. 09/03/2017 Appointment: Pebbles Lund WPtel[facility] [place] (15 min) Moderate 09/03/2017 Patient Education: Patient Medication Summary Completed 09/03/2017 Appointment: Kim Burden WPtel: [facility] [address] [place] (15 min) Moderate 08/11/2017 Appointment: Kim Burden WPtel: [facility] [address] [place] (15 min) Moderate 08/11/2017 Patient Education: [...] current treatment. 07/31/2017 Appointment: Kim Burden WPtel: [facility] [place] ([facility] min) Moderate 07/31/2017 Patient Education: Patient Medication Summary Completed 07/31/2017 Appointment: Nurse Visit 07/18/2017 Patient Education: Patient Medication Summary Completed 07/18/2017 Patient Education: Patient Medication Summary Completed 07/18/2017 Appointment: [facility] [facility] [place] (15 min) Moderate 06/30/2017 Visit Plan: Effusion left knee-fall 2 weeks ago-recommend compression of joint and refer to Ortho for evaluation and treatment-will refer to Dr Pryor/Quinton Mccormick. Patient verbalized understanding of plan. 06/16/2017 Appointment: Mallorie Wetzel WPtel: [phone] [phone] (30 min) Complex 06/16/2017 Patient Education: Patient [...] active. 05/28/2017 Appointment: Kim Burden WPtel: [address] [facility] [address] (15 min) Moderate 05/28/2017 Patient Education: Patient [...] acute changes. 05/05/2017 Appointment: Kim Burden WPtel: [facility] [address] (15 min) Moderate 05/05/2017 Patient Education: Patient [...] medications. 03/13/2017 Appointment: [facility] [facility] (15 min) Moderate 03/13/2017 Patient Education: Patient [...] symptoms worsening. 02/10/2017 Appointment: Kim Burden WPtel: [address] [facility] [address] (15 min) Moderate 02/10/2017 Patient Education: Patient [...] not improving. 01/14/2017 Appointment: [facility] [facility] (15 min) Moderate 01/14/2017 Patient Education: Patient Medication Summary Completed 01/14/2017 Visit Plan: Dehydration, palpitations, malaise, headache - will send for outpatient fluids, will check labs, ekg. Pt is to restart her spironolactone, continue to monitor blood pressures and heart rates and notify clinic if symptoms do not improve, if they worsen, or with any questions or concerns. 01/07/2017 Appointment: [facility]ebbles [facility] ([facility] min) Complex 01/07/2017 Patient Education: [...] pressures. 01/01/2017 Appointment: Pebbles Lund [facility]el[facility] [facility] (30 min) Complex 01/01/2017 Patient Education: [...] surrogate. 12/12/2016 Appointment: Pebbles Lund [facility]Ptel[facility] [facility] [facility] - Annual Wellness Visit 12/12/2016 [...] time. 12/11/2016 Appointment: Kim Burden WPtel: [address] [facility] [address] [place] (15 min) Moderate 12/11/2016 Patient Education: Patient Medication Summary Completed 12/11/2016 Appointment: Mallorie Wetzel WPtel: [phone] [phone] [place] (30 min) Complex 12/10/2016 Visit Plan: [...] not improving. 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 07/17/2016 Appointment: Kim Burden WPtel: [address] [facility] [address] [place] (15 min) Moderate 07/17/2016 Patient Education: Patient Medication Summary Completed 07/17/2016 Appointment: [facility] ([facility] min) Moderate 06/10/2016 Visit Plan: Hip pain - persistent but improving - continue with current treatment plan. Pt to call if her symptoms are not improving or if her hip pain worsens. URI symptoms - supportive care, use otc allergy medications. 05/15/2016 Appointment: Kim Burden WPtel: [facility] [address] (15 min) Moderate 05/15/2016 Patient Education: Patient [...] Burden WPtel: [facility] [address] (15 min) Moderate 04/23/2016 Patient Education: Patient Medication Summary Completed 04/23/2016 Patient Education: Hypertension Completed 04/23/2016 Care Plan: X-RAY EXAM OF ABDOMEN LOINC : 09499-2 Pending 03/18/2016 Visit Plan: URI - Pt [...] allergy spray. 03/14/2016 Appointment: Pebbles Lund [facility]Ptel[facility] ([facility] min) Complex 03/14/2016 Patient Education: Patient Medication Summary Completed 03/14/2016 Patient Education: Patient Medication Summary Completed 02/29/2016 Visit Plan: Flank pain - pt is currently being treated for UTI, but is having continued left flank pain - will get KUB - pt is to notify clinic if symptoms do not improve, or with any concerns. 02/19/2016 Appointment: Pebbles Lund WPtel: [address] [facility] (30 min) Complex 02/19/2016 Patient Education: Patient Medication Summary Completed 02/19/2016 Appointment: Kim Burden WPtel: [address] [facility] [address] (15 min) Moderate 01/22/2016 Visit Plan: Hypertension [...] not improving. 12/19/2015 Appointment: Kim Burden WPtel: [address] [facility] [address] (15 min) Moderate 12/19/2015 Patient Education: Patient [...] worse. Finish RX. 03/06/2015 Appointment: JeniseKim WPtel: [facility] Follow up 03/06/2015 Patient Education: [...] Completed 02/07/2015 Care Plan: SCREENINGMAMMOGRAPHYDIGITAL LOINC : 28179-2 Ordered 02/07/2015 Care Plan: COMPLETE CBC AUTOMATED LOINC : 42040-6 Ordered 02/07/2015 Referral: Consuelo Chavez Referral Appointment [...] to help decrease GI upset./loose stools - [employer] or [employer] . Hypertension - well controlled - continue [...] care surrogate. TAKE WITH FOOD AND PROBIOTIC ([employer] OR [employer]) . URI - Pt advised to increase [...]
[2019-04-06 08:58] LABS: HEMOGLOBIN 12.8 G/DL (11.5-16.0); RED CELL DISTRIBUTION WIDTH 13.3 % (10.0-14.5); WHITE BLOOD COUNT 5.9 10^3/uL (4.3-11.0)
--- OUTSIDE RECORDS SUMMARY | 2019-04-06 09:02 | XMS REPORT | CCD ---
Author Author Mallorie Wetzel Organization Kim Burden MD, [facility] Address [address] [place] [address] Phone Care Team Providers Care Intelligence Chief Name Role Phone PP Unavailable CCM Unavailable Summary Purpose Interface Exchange Insurance Providers Payer name Policy type / Coverage type Covered constitution party ID Effective Begin Date Effective End Date WPS Medicare Part B Medicare Part B [id number] 2018 Unknown AET[employer] Medicare Part B [id number] Unknown Family history Brother Diagnosis Age At [...] Unknown 3 02/07/[address]: 9773999 Quit over 10 years ago 199302/07/2015 Number [...] ICD-9: 491.21 ICD-10: J44.1 Active 04/09/2018 Unknown Encounter for general adult medical examination with abnormal findings ICD-9: V70.0 ICD-10: Z00.01 Active 12/12/2016 Unknown Dependence on supplemental oxygen ICD-9: V46.2 [...] exacerbation ICD-9: 491.21 ICD-10: J44.1 04/09/2018 Active Encounter for general adult medical examination with abnormal findings ICD-9: V70.0 ICD-10: Z00.01 12/12/2016 Active Dependence on supplemental oxygen ICD-9: V46.2 [...] Start Date Stop Date Status Fill Instructions cyanocobalamin (vit B-12) 1,000 mcg/mL injection solution RxNorm: 755293 Milliliter(s) Inj 12/22/2018 12/22/2018 Inactive metoprolol tartrate 50 mg tablet RxNorm: 964469 1/2 Tablet(s) PO BID 11/06/2018 10/31/2019 Active alprazolam 1 mg tablet RxNorm: 993498 1/2 Tablet(s) PO TID 11/06/2018 08/02/2019 Active ibuprofen 800 mg tablet RxNorm: 293451 Tablet(s) TAKE 1 TABLET THREE TIMES DAILY 11/06/2018 10/31/2019 Active losartan 100 mg tablet RxNorm: 179396 Tablet(s) TAKE 1 TABLET EVERY EVENING 11/06/2018 10/31/2019 Active Lexapro 10 mg tablet RxNorm: 203630 Tablet(s) TAKE 1 TABLET EVERY DAY 11/06/2018 10/31/2019 Active cyanocobalamin (vit B-12) 1,000 mcg/mL injection solution RxNorm: 991159 1 Milliliter(s) Inj 10/01/2018 10/01/2018 Inactive ibuprofen 800 mg tablet RxNorm: 996859 TAKE 1 TABLET THREE TIMES DAILY 09/28/2018 11/05/2018 Inactive cyanocobalamin (vit B-12) 1,000 mcg/mL injection solution RxNorm: 802644 1 Milliliter(s) Inj 09/15/2018 09/15/2018 Inactive Kenalog 40 mg/mL suspension for injection RxNorm: 6683515 Milliliter(s) Inj 09/15/2018 09/15/2018 Inactive alprazolam 1 mg tablet RxNorm: 936144 1/2 Tablet(s) PO TID 08/10/2018 11/05/2018 Inactive cyanocobalamin (vit B-12) 1,000 mcg/mL injection solution RxNorm: 511763 Milliliter(s) Inj 08/04/2018 08/04/2018 Inactive alprazolam 1 mg tablet RxNorm: 710255 1/2 Tablet(s) PO BID 08/04/2018 08/09/2018 Inactive cholestyramine (with sugar) 4 gram powder for susp in a packet RxNorm: 734133 1/2 to 1 packet PO TID take 30 minutes before meals 07/22/2018 12/21/2018 Inactive cyanocobalamin (vit B-12) 1,000 mcg/mL injection solution RxNorm: 388649 1 Milliliter(s) Inj 07/16/2018 07/16/2018 Inactive omeprazole 20 mg capsule,delayed release RxNorm: 312009 Capsule(s) TAKE 1 CAPSULE TWICE DAILY 07/01/2018 06/25/2019 Active cyanocobalamin (vit B-12) 1,000 mcg/mL injection solution RxNorm: 849903 Milliliter(s) Inj 07/01/2018 07/01/2018 Inactive omeprazole 20 mg capsule,delayed release RxNorm: 636805 TAKE 1 CAPSULE TWICE DAILY 07/01/2018 06/30/2018 Inactive alprazolam 1 mg tablet RxNorm: 020890 1 Tablet(s) PO TID 07/01/2018 08/03/2018 Inactive cyanocobalamin (vit B-12) 1,000 mcg/mL injection solution RxNorm: 163506 Milliliter(s) Inj 06/15/2018 06/15/2018 Inactive cyanocobalamin (vit B-12) 1,000 mcg/mL injection solution RxNorm: 681451 Milliliter(s) Inj 06/02/2018 06/02/2018 Inactive fluticasone 50 mcg/actuation nasal spray,suspension RxNorm: 7751836 1 [place] NASAL BID 05/26/2018 05/20/2019 Active Vitamin B-12 1,000 mcg/mL injection solution RxNorm: 568198 1 Milliliter(s) Inj Q2 weeks x2 months and then monthly injections 05/21/2018 No Stop Date Active cyanocobalamin (vit B-12) 1,000 mcg/mL injection solution RxNorm: 745836 Milliliter(s) Inj 05/21/2018 05/21/2018 Inactive fluticasone 50 mcg/actuation nasal spray,suspension RxNorm: 0030075 1 [place] NASAL BID 05/19/2018 05/25/2018 Inactive fluticasone 50 mcg/actuation nasal spray,suspension RxNorm: 9270190 1 [place] NASAL BID 05/18/2018 05/18/2018 Inactive fluticasone 50 mcg/actuation nasal spray,suspension RxNorm: 9992266 1 [place] NASAL BID 05/15/2018 05/17/2018 Inactive fluticasone 50 mcg/actuation nasal spray,suspension RxNorm: 3980682 1 [place] NASAL BID 05/15/2018 05/14/2018 Inactive nystatin 100,000 unit/mL oral suspension RxNorm: 512671 5 Milliliter(s) PO QID 04/21/2018 04/30/2018 Inactive Breo Ellipta 100 mcg-25 mcg/dose powder for inhalation RxNorm: 2726018 1 INH daily 04/09/2018 04/03/2019 Active please call patient with jaramillo before sending prednisone 20 mg tablet RxNorm: 595319 1 Tablet(s) PO BID 04/09/2018 04/13/2018 Inactive start tomorrow Kenalog 40 mg/mL suspension for injection RxNorm: 4869001 1.5 Milliliter(s) Inj 04/09/2018 04/09/2018 Inactive Breo Ellipta 100 mcg-25 mcg/dose powder for inhalation RxNorm: 6072827 1 INH daily 04/09/2018 04/08/2018 Inactive alprazolam 1 mg tablet RxNorm: 363358 1 Tablet(s) PO TID 03/13/2018 06/30/2018 Inactive losartan 100 mg tablet RxNorm: 656471 TAKE 1 TABLET EVERY EVENING 03/02/2018 11/05/2018 Inactive Ventolin HFA 90 mcg/actuation aerosol inhaler RxNorm: 394048 2 INH Q4-6H as needed 12/29/2017 02/26/2018 Inactive Ventolin HFA 90 mcg/actuation aerosol inhaler RxNorm: 828964 2 INH Q4-6H as needed 12/29/2017 12/28/2017 Inactive Diflucan 150 mg tablet RxNorm: 085207 1 Tablet(s) PO daily 11/03/2017 11/05/2017 Inactive please call pt to let herknow when to pick- up the med CareToSaveflex 500 mg capsule RxNorm: 059386 1 Capsule(s) PO TID 10/23/2017 10/29/2017 Inactive Kenalog 40 mg/mL suspension for injection RxNorm: 7922675 1 Milliliter(s) Inj 10/16/2017 10/16/2017 Inactive ibuprofen 800 mg tablet RxNorm: 127724 TAKE 1 TABLET THREE TIMES DAILY 10/15/2017 09/27/2018 Inactive Lexapro 10 mg tablet RxNorm: 808348 TAKE 1 TABLET EVERY DAY 10/15/2017 10/09/2018 Inactive hydrocodone 5 mg-acetaminophen 325 mg tablet RxNorm: 019256 1 Tablet(s) PO QID as needed 09/03/2017 07/21/2018 Inactive omeprazole 20 mg capsule,delayed release RxNorm: 789480 1 Capsule(s) PO BID 09/02/2017 06/30/2018 Inactive alprazolam 1 mg tablet RxNorm: 441068 1 Tablet(s) PO TID 09/02/2017 03/12/2018 Inactive metoprolol tartrate 50 mg tablet RxNorm: 911344 1/2 Tablet(s) PO BID 06/26/2017 06/20/2018 Inactive omeprazole 20 mg capsule,delayed release RxNorm: 107658 1 Capsule(s) PO BID 06/05/2017 09/01/2017 Inactive omeprazole 20 mg capsule,delayed release RxNorm: 168236 1 Capsule(s) PO BID 05/28/2017 06/04/2017 Inactive omeprazole 20 mg capsule,delayed release RxNorm: 348475 1 Capsule(s) PO QPM 05/27/2017 05/27/2017 Inactive Breo Ellipta 100 mcg-25 mcg/dose powder for inhalation RxNorm: 1491340 1 INH daily 05/05/2017 04/08/2018 Inactive alprazolam 1 mg tablet RxNorm: 260391 1 Tablet(s) PO TID 02/10/2017 08/07/2017 Inactive metoprolol tartrate 50 mg tablet RxNorm: 184388 1/2 Tablet(s) PO BID 02/10/2017 06/25/2017 Inactive losartan 100 mg tablet RxNorm: 555068 1 Tablet(s) PO QPM 02/10/2017 02/04/2018 Inactive losartan 50 mg tablet RxNorm: 591025 2 Tablet(s) PO QPM 01/23/2017 02/09/2017 Inactive Diflucan 150 mg tablet RxNorm: 168707 1 Tablet(s) PO daily 01/20/2017 01/22/2017 Inactive please call pt to let herknow when to pick- up the med Diflucan 150 mg tablet RxNorm: 475920 1 Tablet(s) PO daily 01/20/2017 01/19/2017 Inactive please call pt to let herknow when to pick- up the med losartan 50 mg tablet RxNorm: 943658 1 Tablet(s) PO QPM 01/14/2017 01/22/2017 Inactive Cipro 500 mg tablet RxNorm: 688361 1 Tablet(s) PO BID 01/08/2017 01/17/2017 Inactive Cipro 500 mg tablet RxNorm: 730643 1 Tablet(s) PO BID 01/08/2017 01/07/2017 Inactive Lexapro 10 mg tablet RxNorm: 931859 TAKE 1 TABLET EVERY DAY 12/20/2016 10/14/2017 Inactive metoprolol tartrate 50 mg tablet RxNorm: 188282 1 Tablet(s) PO in the morning and 1.5 pill at night 12/11/2016 01/13/2017 Inactive spironolactone 25 mg tablet RxNorm: 935851 TAKE 1 TABLET EVERY DAY 11/04/2016 07/21/2018 Inactive metoprolol tartrate 50 mg tablet RxNorm: 121318 TAKE 1 TABLET TWICE DAILY 10/29/2016 12/10/2016 Inactive ibuprofen 800 mg tablet RxNorm: 791025 TAKE 1 TABLET THREE TIMES DAILY 10/21/2016 10/14/2017 Inactive Astepro 0.15 % (205.5 mcg) nasal spray RxNorm: 1582537 1 [place] NASAL BID 10/15/2016 10/14/2016 Inactive Astepro 0.15 % (205.5 mcg) nasal spray RxNorm: 8884583 1 [place] NASAL BID 10/15/2016 07/21/2018 Inactive Astepro 0.15 % (205.5 mcg) nasal spray RxNorm: 2959635 1 [place] NASAL BID 10/15/2016 10/14/2016 Inactive omeprazole 20 mg capsule,delayed release RxNorm: 740697 1 Capsule(s) PO QPM 10/15/2016 05/26/2017 Inactive omeprazole 20 mg capsule,delayed release RxNorm: 802558 1 Capsule(s) QPM 10/15/2016 10/14/2016 Inactive omeprazole 20 mg capsule,delayed release RxNorm: 654580 TAKE 1 CAPSULE TWICE DAILY 09/02/2016 10/14/2016 Inactive Lexapro 10 mg tablet RxNorm: 530463 TAKE 1 TABLET EVERY DAY 08/21/2016 12/19/2016 Inactive calcitonin (salmon) 200 unit/actuation nasal spray RxNorm: 659580 1 [place] NASAL daily ONE SPRAY PER ONE NOSTRIL DAILY- ALTERNATE NOSTRILS DAILY 05/31/2016 05/30/2016 Inactive She will do this for 3 months- If she wants to do a 3 month supply at one time she can without refill calcitonin (salmon) 200 unit/actuation nasal spray RxNorm: 894857 1 [place] NASAL daily ONE SPRAY PER ONE NOSTRIL DAILY- ALTERNATE NOSTRILS DAILY 05/31/2016 07/30/2016 Inactive x3 months- no refills Forteo 20 mcg/dose (600 mcg/2.4 mL) subcutaneous pen injector RxNorm: 8224459 1 injection SQ daily 05/22/2016 05/30/2016 Inactive call pt with jaramillo first Forteo 20 mcg/dose (600 mcg/2.4 mL) subcutaneous pen injector RxNorm: 7470794 1 injection SQ daily 05/22/2016 05/21/2016 Inactive Prolia 60 mg/mL subcutaneous syringe RxNorm: 699328 1 Milliliter(s) SQ every 6 months 05/13/2016 07/21/2018 Inactive Please check jaramillo through insurance and let me know- Thanks! Mary Ellen alprazolam 1 mg tablet RxNorm: 326404 1 Tablet(s) PO TID 05/08/2016 11/01/2016 Inactive Lexapro 10 mg tablet RxNorm: 318599 TAKE 1 TABLET EVERY DAY 04/22/2016 08/20/2016 Inactive spironolactone 25 mg tablet RxNorm: 504892 TAKE 1 TABLET EVERY DAY 04/22/2016 11/03/2016 Inactive Diflucan 150 mg tablet RxNorm: 300488 1 Tablet(s) PO daily 03/20/2016 04/14/2016 Inactive Diflucan 150 mg tablet RxNorm: 947554 1 Tablet(s) PO daily 03/20/2016 03/19/2016 Inactive Augmentin 500 mg-125 mg tablet RxNorm: 985384 1 Tablet(s) PO TID 03/14/2016 03/23/2016 Inactive omeprazole 20 mg capsule,delayed release RxNorm: 834947 1 Tablet(s) PO BID 03/06/2016 09/01/2016 Inactive [SAVINGS FOR NON-COVERED DRUGS -- BIN:938378, PCN: ASPROD1, Group: XXXXX, ID# XXXXXXX, Questions: . THIS IS NOT INSURANCE.] amlodipine 5 mg tablet RxNorm: 405691 TAKE 1 TABLET EVERY DAY 03/01/2016 04/22/2016 Inactive omeprazole 20 mg tablet,delayed release RxNorm: 541834 1 Tablet(s) PO BID 02/27/2016 03/05/2016 Inactive [SAVINGS FOR NON-COVERED DRUGS -- BIN:585093, PCN: ASPROD1, Group: XXXXX, ID# XXXXXXX, Questions: . THIS IS NOT INSURANCE.] spironolactone 25 mg tablet RxNorm: 181026 TAKE 1 TABLET EVERY DAY 12/21/2015 04/21/2016 Inactive Lexapro 10 mg tablet RxNorm: 426726 1 Tablet(s) PO daily 12/19/2015 01/01/2016 Inactive Lexapro 10 mg tablet RxNorm: 167228 1 Tablet(s) PO daily 12/19/2015 02/09/2017 Inactive Lexapro 10 mg tablet RxNorm: 857189 1 Tablet(s) PO daily 12/19/2015 12/18/2015 Inactive alprazolam 1 mg tablet RxNorm: 744138 1 Tablet(s) PO TID 12/01/2015 02/28/2016 Inactive ibuprofen 800 mg tablet RxNorm: 420917 1 Tablet(s) PO TID 10/26/2015 10/20/2016 Inactive alprazolam 1 mg tablet RxNorm: 020428 1 Tablet(s) PO TID 08/23/2015 07/21/2018 Inactive spironolactone 25 mg tablet RxNorm: 914340 1 Tablet(s) PO daily 08/21/2015 12/20/2015 Inactive metoprolol tartrate 50 mg tablet RxNorm: 646820 1 Tablet(s) PO BID 08/10/2015 08/03/2016 Inactive [SAVINGS FOR NON-COVERED DRUGS -- BIN:120000, PCN: ASPROD1, Group: XXXXX, ID# XXXXXXX, Questions: . THIS IS NOT INSURANCE.] omeprazole 20 mg tablet,delayed release RxNorm: 580946 1 Tablet(s) PO BID 08/07/2015 02/02/2016 Inactive [SAVINGS FOR NON-COVERED DRUGS -- BIN:150035, PCN: ASPROD1, Group: XXXXX, ID# XXXXXXX, Questions: . THIS IS NOT INSURANCE.] Keflex 500 mg capsule RxNorm: 230180 1 Capsule(s) PO TID 07/10/2015 07/16/2015 Inactive alprazolam 1 mg tablet RxNorm: 034865 1 Tablet(s) PO TID 06/02/2015 08/22/2015 Inactive alprazolam 1 mg tablet RxNorm: 614704 1 Tablet(s) PO TID 03/29/2015 06/01/2015 Inactive amlodipine 5 mg tablet RxNorm: 430711 1 Tablet(s) PO daily 03/06/2015 02/29/2016 Inactive Nasonex 50 mcg/actuation [place] RxNorm: 203152 1 [place] NASAL daily 03/03/2015 03/02/2015 Inactive Keflex 500 mg capsule RxNorm: 338429 1 Capsule(s) PO TID 03/03/2015 03/02/2015 Inactive Nasonex 50 mcg/actuation [place] RxNorm: 922919 1 [place] NASAL daily 03/03/2015 05/01/2015 Inactive Keflex 500 mg capsule RxNorm: 321832 1 Capsule(s) PO TID 03/03/2015 03/05/2015 Inactive Carafate 1 gram tablet RxNorm: 963899 TAKE 1 TABLET FOUR TIMES DAILY 30 MINUTES BEFORE MEALS AND AT BEDTIME 02/28/2015 12/18/2015 Inactive Kenalog 40 mg/mL suspension for injection RxNorm: 4797595 Milliliter(s) Inj 02/07/2015 02/07/2015 Inactive [SAVINGS FOR NON-COVERED DRUGS -- BIN:341236, PCN: ASPROD1, Group: XXXXX, ID# XXXXXXX, Questions: . THIS IS NOT INSURANCE.] metoprolol tartrate 50 mg tablet RxNorm: 486991 1 Tablet(s) PO BID 02/07/2015 08/09/2015 Inactive [SAVINGS FOR NON-COVERED DRUGS -- BIN:552655, PCN: ASPROD1, Group: XXXXX, ID# XXXXXXX, Questions: . THIS IS NOT INSURANCE.] Carafate 1 gram tablet RxNorm: 695787 1 Tablet(s) PO QID 02/07/2015 02/27/2015 Inactive 30 min before meals and at bedtime omeprazole 20 mg tablet,delayed release RxNorm: 151342 1 Tablet(s) PO BID 02/07/2015 08/05/2015 Inactive [SAVINGS FOR NON-COVERED DRUGS -- BIN:773612, PCN: ASPROD1, Group: XXXXX, ID# XXXXXXX, Questions: . THIS IS NOT INSURANCE.] Vitamin D3 2,000 unit tablet RxNorm: 062883 1 Tablet(s) PO daily No Start Date Active aspirin 81 mg tablet RxNorm: 148304 1 Tablet(s) PO daily No Start Date Active amlodipine 2.5 mg tablet RxNorm: 878385 1 Tablet(s) PO daily No Start Date 03/05/2015 Inactive spironolactone 25 mg tablet RxNorm: 243953 1 Tablet(s) PO daily No Start Date 08/20/2015 Inactive cetirizine 10 mg tablet RxNorm: 0316267 1 Tablet(s) PO daily No Start Date 12/18/2015 Inactive metoprolol tartrate 50 mg tablet RxNorm: 954625 1 Tablet(s) PO daily No Start Date 02/06/2015 Inactive ipratropium bromide 0.06 % nasal spray RxNorm: 141458 nasal No Start Date 12/18/2015 Inactive alprazolam 1 mg tablet RxNorm: 642089 1 Tablet(s) PO TID No Start Date 03/28/2015 Inactive Prolia 60 mg/mL subcutaneous syringe RxNorm: 503298 1 Milliliter(s) SQ every 6 months No Start Date 05/12/2016 Inactive Please check jaramillo through insurance and let me know- Thanks! Mary Ellen ibuprofen 800 mg tablet RxNorm: 196810 1 Tablet(s) PO TID No Start Date 10/25/2015 Inactive Protonix 40 mg tablet,delayed release RxNorm: 377521 1 Tablet(s) PO daily No Start Date 03/05/2015 Inactive Vitamin B-12 1,000 mcg/mL injection solution RxNorm: 429919 1 Milliliter(s) Inj Q2 weeks x2 months and then monthly injections No Start Date 05/20/2018 Inactive loratadine 10 mg tablet RxNorm: 228344 1 Tablet(s) PO daily No Start Date 07/21/2018 Inactive Medication Administered Medication Codes Instructions Start Date Status cyanocobalamin (vit B-12) 1,000 mcg/mL injection solution RxNorm: 565458 Milliliter 12/22/2018 Active cyanocobalamin (vit B-12) 1,000 mcg/mL injection solution RxNorm: 913859 1Milliliter 10/01/2018 No longer Active Kenalog 40 mg/mL suspension for injection RxNorm: 9148922 Milliliter 09/15/2018 No longer Active cyanocobalamin (vit B-12) 1,000 mcg/mL injection solution RxNorm: 022960 1Milliliter 09/15/2018 No longer Active cyanocobalamin (vit B-12) 1,000 mcg/mL injection solution RxNorm: 242911 Milliliter 08/04/2018 No longer Active cyanocobalamin (vit B-12) 1,000 mcg/mL injection solution RxNorm: 090558 1Milliliter 07/16/2018 No longer Active cyanocobalamin (vit B-12) 1,000 mcg/mL injection solution RxNorm: 626046 Milliliter 07/01/2018 No longer Active cyanocobalamin (vit B-12) 1,000 mcg/mL injection solution RxNorm: 965452 Milliliter 06/15/2018 No longer Active cyanocobalamin (vit B-12) 1,000 mcg/mL injection solution RxNorm: 110064 Milliliter 06/02/2018 No longer Active cyanocobalamin (vit B-12) 1,000 mcg/mL injection solution RxNorm: 934466 Milliliter 05/21/2018 No longer Active Kenalog 40 mg/mL suspension for injection RxNorm: 0140858 1.5Milliliter 04/09/2018 No longer Active Kenalog 40 mg/mL suspension for injection RxNorm: 3550291 1Milliliter 10/16/2017 No longer Active Kenalog 40 mg/mL suspension for injection RxNorm: 6601895 Milliliter 02/07/2015 No longer Active Immunizations Vaccine Codes Date Status Influenza CVX: 141 06/25/2018 completed Pneumococcal (Adult) CVX: 33 08/28/2016 completed Assessments Condition Codes Effective Dates Fecal urgency ICD-10: R15.2 ICD-9: 787.63 12/22/2018 [...] (acute) exacerbation ICD-10: J44.1 ICD-9: 491.21 04/09/2018 Encounter for general adult medical examination with abnormal findings ICD-10: Z00.01 ICD-9: V70.0 12/18/2017 Pain in left knee ICD-10: M25.562 ICD-9: [...] Visit Reason For Visit Effective Dates Notes constipation 12/22/2018 intermittent with diarrhea chest pain/pressure [...] Item Item Code Result Date Comp Metabolic Zzu599 NA 138 mEq/L 09/03/2017 Comp Metabolic Eke877 K 3.9 mEq/L 09/03/2017 Comp Metabolic Rtv823 CL 102 mEq/L 09/03/2017 Comp Metabolic Uid845 CO2 32.0 mEq/L 09/03/2017 Comp Metabolic Bui704 ANION GAP 8 09/03/2017 Comp Metabolic Xfk794 GLUCOSE 89 mg/dL 09/03/2017 Comp Metabolic Tvg656 Creat 0.6 mg/dL 09/03/2017 Comp Metabolic Qou815 eGFR 103 ml/min/1.73m2 09/03/2017 Comp Metabolic Kdd687 BUN 10 mg/dL 09/03/2017 Comp Metabolic Nxz393 B/C Ratio 16.7 Ratio 09/03/2017 Comp Metabolic Bza687 CALCIUM 8.9 mg/dL 09/03/2017 Comp Metabolic Qph477 ALK PHOS 141 U/L 09/03/2017 Comp Metabolic Mjg377 AST(SGOT) 12 U/L 09/03/2017 Comp Metabolic Qdd688 ALT(SGPT) 7 U/L 09/03/2017 Comp Metabolic Qfd115 BILI T 0.6 mg/dL 09/03/2017 Comp Metabolic Ned965 ALBUMIN 3.6 g/dL 09/03/2017 Comp Metabolic Cde943 TPRO 6.6 g/dL 09/03/2017 Comp Metabolic Fvs376 GLOB 3.0 g/dL 09/03/2017 Comp Metabolic Kkf118 A/G Ratio 1.2 Ratio 09/03/2017 Comp Metabolic Gee049 Osmo 274 mOsmo 09/03/2017 Hepatic Ptr842 ALBUMIN 3.7 g/dL 08/11/2017 Hepatic Vst759 TPRO 7.0 g/dL 08/11/2017 Hepatic Rks398 GLOB 3.3 g/dL 08/11/2017 Hepatic Vno434 A/G Ratio 1.1 Ratio 08/11/2017 Hepatic Ilg926 ALK PHOS 85 U/L 08/11/2017 Hepatic Pup851 ALT(SGPT) 11 U/L 08/11/2017 Hepatic Kcc273 AST(SGOT) 16 U/L 08/11/2017 Hepatic Nbo090 BILI T 0.6 mg/dL 08/11/2017 Hepatic Jdw573 BILI D 0.1 mg/dL 08/11/2017 Hepatic Tiv166 BILI I 0.5 mg/dL 08/11/2017 Hepatic Rtl023 ALBUMIN 3.1 g/dL 07/18/2017 Hepatic Xma969 TPRO 5.9 g/dL 07/18/2017 Hepatic Ugp082 GLOB 2.8 g/dL 07/18/2017 Hepatic Wfc381 A/G Ratio 1.1 Ratio 07/18/2017 Hepatic Ais635 ALK PHOS 123 U/L 07/18/2017 Hepatic Htw401 ALT(SGPT) 210 U/L 07/18/2017 Hepatic Anu879 AST(SGOT) 71 U/L 07/18/2017 Hepatic Wov204 BILI T 1.1 mg/dL 07/18/2017 Hepatic Bsk251 BILI D 0.4 mg/dL 07/18/2017 Hepatic Iay132 BILI I 0.7 mg/dL 07/18/2017 Cbc With [...] 32.4 pg 02/25/2017 Cbc With Differential Ord2 Alfalfa% 7.6 % 02/25/2017 Cbc With Differential Ord2 [...] 1.22 K/ul 02/25/2017 Cbc With Differential Ord2 Alfalfa ABS# 0.4 K/ul 02/25/2017 Cbc With Differential [...] 32.3 pg 01/02/2017 Cbc With Differential Ord2 [place]% 7.8 % 01/02/2017 Cbc With Differential Ord2 [...] 0.90 K/ul 01/02/2017 Cbc With Differential Ord2 [place] ABS# 0.4 K/ul 01/02/2017 Cbc With Differential Ord2 Eos ABS# 0.3 K/ul 01/02/2017 Cbc With Differential Ord2 Baso ABS# 0.0 K/ul 01/02/2017 Lipid Ord30 CHOL 139 mg/dL 12/13/2016 Lipid Ord30 HDL 48.0 mg/dl 12/13/2016 Lipid Ord30 TRIG 84 mg/dL 12/13/2016 Lipid Ord30 LDL 74 mg/dL 12/13/2016 Lipid Ord30 C/HDL 2.9 Ratio 12/13/2016 Comp Metabolic Icd138 NA 137 mEq/L 12/13/2016 Comp Metabolic Mhe554 K 4.8 mEq/L 12/13/2016 Comp Metabolic Erd982 CL 101 mEq/L 12/13/2016 Comp Metabolic Sbj376 CO2 32.0 mEq/L 12/13/2016 Comp Metabolic Fon357 ANION GAP 9 12/13/2016 Comp Metabolic Buc443 GLUCOSE 95 mg/dL 12/13/2016 Comp Metabolic Pru776 Creat 0.8 mg/dL 12/13/2016 Comp Metabolic Eru632 eGFR 79 ml/min/1.73m2 12/13/2016 Comp Metabolic Ovt631 BUN 15 mg/dL 12/13/2016 Comp Metabolic Vrb802 B/C Ratio 19.7 Ratio 12/13/2016 Comp Metabolic Gyl004 CALCIUM 9.3 mg/dL 12/13/2016 Comp Metabolic You948 ALK PHOS 63 U/L 12/13/2016 Comp Metabolic Jjq225 AST(SGOT) 15 U/L 12/13/2016 Comp Metabolic Pxv632 ALT(SGPT) 10 U/L 12/13/2016 Comp Metabolic Mgx226 BILI T 0.7 mg/dL 12/13/2016 Comp Metabolic Xgp802 ALBUMIN 3.7 g/dL 12/13/2016 Comp Metabolic Vut717 TPRO 6.8 g/dL 12/13/2016 Comp Metabolic Jxw715 GLOB 3.2 g/dL 12/13/2016 Comp Metabolic Gng482 A/G Ratio 1.2 Ratio 12/13/2016 Comp Metabolic Rve226 Osmo 274 mOsmo 12/13/2016 Cbc With Differential [...] 31.9 pg 12/13/2016 Cbc With Differential Ord2 [place]% 9.9 % 12/13/2016 Cbc With Differential Ord2 [...] 1.17 K/ul 12/13/2016 Cbc With Differential Ord2 [place] ABS# 0.4 K/ul 12/13/2016 Cbc With Differential [...] 32.1 pg 12/19/2015 Cbc With Differential Ord2 [place]% 5.9 % 12/19/2015 Cbc With Differential Ord2 [...] 1.53 K/ul 12/19/2015 Cbc With Differential Ord2 [place] ABS# 0.3 K/ul 12/19/2015 Cbc With Differential [...] Ord30 C/HDL 2.8 Ratio 12/19/2015 Comp Metabolic Dkb126 NA 135 mEq/L 12/19/2015 Comp Metabolic Nrw374 K 4.1 mEq/L 12/19/2015 Comp Metabolic Afp091 CL 99 mEq/L 12/19/2015 Comp Metabolic Hxp814 CO2 27.0 mEq/L 12/19/2015 Comp Metabolic Uik238 ANION GAP 13 12/19/2015 Comp Metabolic Nld418 GLUCOSE 83 mg/dL 12/19/2015 Comp Metabolic Lxo213 Creat 0.7 mg/dL 12/19/2015 Comp Metabolic Lhm184 eGFR 88 ml/min/1.73m2 12/19/2015 Comp Metabolic Lcn333 BUN 12 mg/dL 12/19/2015 Comp Metabolic Ujc511 B/C Ratio 17.4 Ratio 12/19/2015 Comp Metabolic Nvr486 CALCIUM 9.0 mg/dL 12/19/2015 Comp Metabolic Ltu422 ALK PHOS 68 U/L 12/19/2015 Comp Metabolic Qpl622 AST(SGOT) 16 U/L 12/19/2015 Comp Metabolic Qea219 ALT(SGPT) 13 U/L 12/19/2015 Comp Metabolic Iab185 BILI T 0.7 mg/dL 12/19/2015 Comp Metabolic Gzk762 ALBUMIN 4.0 g/dL 12/19/2015 Comp Metabolic Poo021 TPRO 7.0 g/dL 12/19/2015 Comp Metabolic Tcd352 GLOB 3.0 g/dL 12/19/2015 Comp Metabolic Vvt868 A/G Ratio 1.3 Ratio 12/19/2015 Comp Metabolic Qae562 Osmo 269 mOsmo 12/19/2015 Review of Systems System Result Effective Dates Constitutional No recent illness 12/22/2018 Constitutional No [...] diminished 02/07/2015 None Procedures Procedure Codes Date THER/PROPH/DIAG INJ SC/IM CPT-4: 03387 12/22/2018 VITAMIN B12 INJECTION CPT- 4: J3420 12/22/2018 THER/PROPH/DIAG INJ SC/IM CPT-4: 82754 10/01/2018 VITAMIN B12 INJECTION CPT- 4: J3420 10/01/2018 THER/PROPH/DIAG INJ SC/IM CPT-4: 40482 09/15/2018 VITAMIN B12 INJECTION CPT- 4: J3420 09/15/2018 TRIAMCINOLONE ACET INJ NOS CPT-4: J3301 09/15/2018 THER/PROPH/DIAG INJ SC/IM CPT-4: 49012 08/04/2018 VITAMIN B12 INJECTION CPT- 4: J3420 08/04/2018 THER/PROPH/DIAG INJ SC/IM CPT-4: 76592 07/16/2018 VITAMIN B12 INJECTION CPT- 4: J3420 07/16/2018 THER/PROPH/DIAG INJ SC/IM CPT-4: 23339 07/01/2018 VITAMIN B12 INJECTION CPT- 4: J3420 07/01/2018 ADMIN INFLUENZA VIRUS VAC CPT-4: G0008 06/25/2018 FLU VACC PRSV FREE INC ANTIG Formatting Model/CDA Sections, Assigned to/Miranda Ayala CPT-4: [id number] 06/25/2018 THER/PROPH/DIAG INJ SC/IM CPT-4: 53150 06/15/2018 VITAMIN B12 INJECTION CPT- 4: J3420 06/15/2018 THER/PROPH/DIAG INJ SC/IM CPT-4: 75510 06/02/2018 VITAMIN B12 INJECTION CPT- 4: J3420 06/02/2018 THER/PROPH/DIAG INJ SC/IM CPT-4: 59990 05/21/2018 VITAMIN B12 INJECTION CPT- 4: J3420 05/21/2018 TRIAMCINOLONE ACET INJ NOS CPT-4: J3301 04/09/2018 PPPS, SUBSEQ VISIT CPT- 4: G0439 12/18/2017 TRIAMCINOLONE ACET INJ NOS CPT-4: J3301 10/16/2017 DRAIN/INJECT JOINT/BURSA CPT-4: 53942 10/16/2017 PRESCRIP TRANSMIT VIA ERX SY CPT-4: G8553 05/05/2017 PRESCRIP TRANSMIT VIA ERX SY CPT-4: G8553 01/14/2017 PPPS, SUBSEQ VISIT CPT- 4: G0439 12/12/2016 PRESCRIP TRANSMIT VIA ERX SY CPT-4: G8553 10/15/2016 ADMIN PNEUMOCOCCAL VACCINE SNOMED CT: [id number] CPT-4: G0009 08/28/2016 Pneumococcal Polysaccharide Vaccine, 23-Valent, Ad CPT-4: 04615 08/28/2016 PRESCRIP TRANSMIT VIA ERX SY CPT-4: G8553 03/14/2016 PRESCRIP TRANSMIT VIA ERX SY CPT-4: G8553 12/19/2015 THER/PROPH/DIAG INJ SC/IM CPT-4: 07029 02/07/2015 TRIAMCINOLONE ACET INJ NOS CPT-4: J3301 02/07/2015 Vital Signs Date Vital 12/22/2018 Blood Pressure 1: 110/72 Code: 8480-6 BMI: 24.0 Code: 50625-5 Heart Rate 1: 64 bpm Height: 5'1" SpO2: 95% Weight: 127 lbs 09/15/2018 Blood Pressure 1: 106/70 Code: 8480-6 BMI: 24.9 Code: 45503-0 Heart Rate 1: 74 bpm Height: 5'1" SpO2: 95% Weight: 132 lbs 08/18/2018 Blood Pressure 1: 128/70 Code: 8480-6 BMI: 25.1 Code: 57196-0 Heart Rate 1: 74 bpm Height: 5'1" SpO2: 95% Weight: 133 lbs 08/04/2018 Blood Pressure 1: 120/80 Code: 8480-6 Blood Pressure 1: 122/80 Code: 8480-6 Blood Pressure 2: 120/82 Code: 8480-6 BMI: 25.5 Code: 65374-3 Heart Rate 1: 63 bpm Heart Rate 1: 67 bpm Height: 5'1" Weight: 135 lbs Weight: 07/22/2018 Blood Pressure 1: 120/82 Code: 8480-6 BMI: 24.9 Code: 18921-7 Heart Rate 1: 64 bpm Height: 5'1" SpO2: 95% Weight: 132 lbs 04/21/2018 Blood Pressure 1: 108/70 Code: 8480-6 BMI: 24.4 Code: 16658-6 Heart Rate 1: 62 bpm Height: 5'1" SpO2: 94% Weight: 129 lbs 04/09/2018 Blood Pressure 1: 138/86 Code: 8480-6 BMI: 25.5 Code: 64800-2 Heart Rate 1: 64 bpm Height: 5'1" SpO2: 99% Temperature: 36.4 (C) / 97.5 (F) Weight: 135 lbs 01/19/2018 Blood Pressure 1: 128/76 Code: 8480-6 BMI: 25.9 Code: 01678-4 Heart Rate 1: 65 bpm Height: 5'1" SpO2: 98% Weight: 137 lbs 12/18/2017 Blood Pressure 1: 144/82 Code: 8480-6 BMI: 26.1 Code: 28889-4 Heart Rate 1: 57 bpm Height: 5'1" SpO2: 97% Waist Measure (cm): 74 cm Weight: 138 lbs 10/16/2017 Blood Pressure 1: 142/88 Code: 8480-6 BMI: 25.5 Code: 83100-0 Heart Rate 1: 63 bpm Height: 5'1" SpO2: 97% Weight: 135 lbs 09/03/2017 Blood Pressure 1: 144/90 Code: 8480-6 BMI: 26.3 Code: 81056-1 Heart Rate 1: 91 bpm Height: 5'1" SpO2: 96% Weight: 139 lbs 07/31/2017 Blood Pressure 1: 136/90 Code: 8480-6 BMI: 26.3 Code: 07761-4 Height: 5'1" Weight: 139 lbs 07/18/2017 Blood Pressure 1: 136/84 Code: 8480-6 06/16/2017 Blood Pressure 1: 136/84 Code: 8480-6 BMI: 26.5 Code: 16923-2 Heart Rate 1: 72 bpm Height: 5'1" SpO2: 97% Weight: 140 lbs 05/28/2017 Blood Pressure 1: 138/78 Code: 8480-6 BMI: 26.1 Code: 50330-1 Heart Rate 1: 70 bpm Height: 5'1" SpO2: 98% Weight: 138 lbs 05/05/2017 Blood Pressure 1: 140/86 Code: 8480-6 BMI: 25.3 Code: 63951-5 Heart Rate 1: 66 bpm Height: 5'1" SpO2: 99% Weight: 134 lbs 03/13/2017 Blood Pressure 1: 126/74 Code: 8480-6 BMI: 25.3 Code: 57437-0 Heart Rate 1: 73 bpm Height: 5'1" SpO2: 98% Weight: 134 lbs 02/10/2017 Blood Pressure 1: 148/88 Code: 8480-6 BMI: 25.9 Code: 32335-8 Heart Rate 1: 84 bpm Height: 5'1" SpO2: 97% Weight: 137 lbs 01/14/2017 Blood Pressure 1: 134/86 Code: 8480-6 BMI: 25.7 Code: 11133-5 Heart Rate 1: 83 bpm Height: 5'1" SpO2: 95% Weight: 136 lbs 01/07/2017 Blood Pressure 1: 136/88 Code: 8480-6 BMI: 25.1 Code: 39287-7 Heart Rate 1: 86 bpm Height: 5'1" SpO2: 94% Weight: 133 lbs 01/02/2017 Blood Pressure 1: 122/68 Code: 8480-6 Blood Pressure 2: 116/78 Code: 8480-6 01/01/2017 Blood Pressure 1: 90/52 Code: 8480-6 BMI: 25.1 Code: 00577- 5 Heart Rate 1: 86 bpm Height: 5'1" SpO2: 99% Weight: 133 lbs 12/20/2016 Blood Pressure 1: 120/76 Code: 8480-6 12/12/2016 Blood Pressure 1: 130/72 Code: 8480-6 BMI: 24.8 Code: 24502-4 Heart Rate 1: 62 bpm Height: 5'1" SpO2: 98% Waist Measure (cm): 79 cm Weight: 131 lbs 12/11/2016 Blood Pressure 1: 132/70 Code: 8480-6 BMI: 24.8 Code: 36731-2 Heart Rate 1: 60 bpm Height: 5'1" Weight: 131 lbs 10/15/2016 Blood Pressure 1: 108/66 Code: 8480-6 BMI: 24.8 Code: 97429-2 Heart Rate 1: 60 bpm Height: 5'1" Weight: 131 lbs 07/17/2016 Blood Pressure 1: 128/82 Code: 8480-6 BMI: 25.3 Code: 51557-4 Heart Rate 1: 50 bpm Height: 5'2" Weight: 136 lbs 05/15/2016 Blood Pressure 1: 108/70 Code: 8480-6 BMI: 23.4 Code: 67352-8 Heart Rate 1: 54 bpm Height: 5'2" SpO2: 96% Weight: 126 lbs 04/23/2016 Blood Pressure 1: 112/60 Code: 8480-6 BMI: 23.6 Code: 38414-3 Heart Rate 1: 92 bpm Height: 5'2" SpO2: 95% Weight: 127 lbs 03/14/2016 Blood Pressure 1: 118/74 Code: 8480-6 BMI: 24.0 Code: 15498-3 Heart Rate 1: 51 bpm Height: 5'2" SpO2: 94% Temperature: 36.8 (C) / 98.3 (F) Weight: 129 lbs 02/19/2016 Blood Pressure 1: 110/62 Code: 8480-6 BMI: 23.4 Code: 02289-1 Heart Rate 1: 74 bpm Height: 5'2" SpO2: 97% Weight: 126 lbs 12/19/2015 Blood Pressure 1: 108/74 Code: 8480-6 BMI: 23.6 Code: 51994-6 Heart Rate 1: 52 bpm Height: 5'2" Weight: 127 lbs 03/06/2015 Blood Pressure 1: 136/88 Code: 8480-6 Heart Rate 1: 64 bpm Weight: 129 lbs 02/07/2015 Blood Pressure 1: 142/90 Code: 8480-6 BMI: 24.5 Code: 01966-8 Heart Rate 1: 82 bpm Height: 5'2" Weight: 132 lbs Functional Status No Functional Status data History of Present Illness Symptom Name Status Result Effective Date Notes Quality intermittent 12/22/2018 None Onset and Resolution [...] data Encounters Encounter Performer Location Codes Date ([id number]) 32584 EST. PATIENT, LEVEL IV Diagnosis: Other vitamin B12 deficiency anemias[ICD10: D51.8] Kim Burden MD, [facility] CPT-4: 00004 12/22/2018 ([id number]) 49543 EST. PATIENT, LEVEL IV Diagnosis: Chest pain, unspecified[ICD10: R07.9] Diagnosis: Other vitamin B12 deficiency anemias[ICD10: D51.8] Diagnosis: Other allergic rhinitis[ICD10: J30.89] Mallorie Burden MD, [facility] CPT-4: 02144 09/15/2018 ([id number]) 57563 EST. PATIENT, LEVEL III Diagnosis: Essential (primary) hypertension[ICD10: I10] Diagnosis: Fecal urgency[ICD10: R15.2] Kim Burden MD, [facility] CPT-4: 12751 08/18/2018 ([id number]) 30795 EST. PATIENT, LEVEL IV Diagnosis: Other vitamin B12 deficiency anemias[ICD10: D51.8] Diagnosis: Essential (primary) hypertension[ICD10: I10] Diagnosis: Major depressive disorder, recurrent, mild[ICD10: F33.0] Diagnosis: Unsteadiness on feet[ICD10: R26.81] Kim Burden MD, [facility] CPT- 4: 89338 08/04/2018 ([id number]) 54298 EST. PATIENT, LEVEL IV Diagnosis: Fecal urgency[ICD10: R15.2] Diagnosis: Generalized abdominal pain[ICD10: R10.84] Diagnosis: Essential (primary) hypertension[ICD10: I10] Kim Burden MD, [facility] CPT-4: 22467 07/22/2018 ([id number]) 81069 EST. PATIENT, LEVEL IV Diagnosis: Essential (primary) hypertension[ICD10: I10] Diagnosis: Other emphysema[ICD10: J43.8] Diagnosis: Candidal stomatitis[ICD10: B37.0] Kim Burden MD, [facility] CPT- 4: 44087 04/21/2018 ([id number]) 51845 EST. PATIENT, LEVEL III Diagnosis: Chronic obstructive pulmonary disease with (acute) exacerbation[ICD10: J44.1] Mallorie Burden MD, [facility] CPT-4: 46950 04/09/2018 ([id number]) 56999 EST. PATIENT, LEVEL IV Diagnosis: Essential (primary) hypertension[ICD10: I10] Diagnosis: Other emphysema[ICD10: J43.8] Kim Burden MD, [facility] CPT-4: 02546 01/19/2018 ([id number]) 60763 EST. PATIENT, LEVEL IV Diagnosis: Essential (primary) hypertension[ICD10: I10] Diagnosis: Other emphysema[ICD10: J43.8] Diagnosis: Dependence on supplemental oxygen[ICD10: Z99.81] Diagnosis: Hypoxemia[ICD10: R09.02] Diagnosis: Pain in left knee[ICD10: M25.562] Diagnosis: Effusion, left knee[ICD10: M25.462] Kim Burden MD, [facility] CPT- 4: 28722 10/16/2017 52243 EST. PATIENT, LEVEL III Diagnosis: Pain in thoracic spine[ICD10: M54.6] Pebbles Burden MD, [facility] CPT- 4: 13458 09/03/2017 ([id number]) 04489 EST. PATIENT, LEVEL III Diagnosis: Essential (primary) hypertension[ICD10: I10] Diagnosis: Other emphysema[ICD10: J43.8] Kim Burden MD, [facility] CPT-4: 99974 07/31/2017 ([id number]) Miscellaneous no charge Diagnosis: Essential (primary) hypertension[ICD10: I10] Mallorie Burden MD, [facility] CPT-4: 74164 07/18/2017 ([id number]) 49101 EST. PATIENT, LEVEL III Diagnosis: Pain in left knee[ICD10: M25.562] Diagnosis: Effusion, left knee[ICD10: M25.462] Mallorie Burden MD, [facility] CPT-4: 41348 06/16/2017 ([id number]) 11789 EST. PATIENT, LEVEL III Diagnosis: Essential (primary) hypertension[ICD10: I10] Diagnosis: Unsteadiness on feet[ICD10: R26.81] Kim Burden MD, [facility] CPT- 4: 62088 05/28/2017 ([id number]) 69686 EST. PATIENT, LEVEL IV Diagnosis: Essential (primary) hypertension[ICD10: I10] Diagnosis: Chronic obstructive pulmonary disease with acute lower respiratory infection[ICD10: J44.0] Kim Burden MD [facility] CPT-4: 46523 05/05/2017 ([id number]) 67195 EST. 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 PATIENT, LEVEL IV Diagnosis: Essential (primary) hypertension[ICD10: I10] Diagnosis: Gastro-esophageal reflux disease without esophagitis[ICD10: K21.9] Diagnosis: Chronic obstructive pulmonary disease, unspecified[ICD10: J44.9] Kim Burden MD [facility] CPT-4: 49192 02/10/2017 ([id number]) 03758 EST. PATIENT, LEVEL IV Diagnosis: Essential (primary) hypertension[ICD10: I10] Diagnosis: Gastro-esophageal reflux disease without esophagitis[ICD10: K21.9] Diagnosis: Chronic obstructive pulmonary disease with acute lower respiratory infection[ICD10: J44.0] Kim Burden MD, [facility] CPT-4: 27705 01/14/2017 94172 EST. PATIENT, LEVEL IV Diagnosis: Other fatigue[ICD10: R53.83] Diagnosis: Other malaise[ICD10: R53.81] Diagnosis: Headache[ICD10: R51] Diagnosis: Palpitations[ICD10: R00.2] Diagnosis: Dehydration[ICD10: E86.0] Pebbles Burden MD, [facility] CPT-4: 74828 01/07/2017 ([id number]) Miscellaneous no charge Diagnosis: Essential (primary) hypertension[ICD10: I10] Pebbles Burden MD, [facility] CPT-4: 17173 01/02/2017 60599 EST. PATIENT, LEVEL IV Diagnosis: Chronic obstructive pulmonary disease, unspecified[ICD10: J44.9] Diagnosis: Essential (primary) hypertension[ICD10: I10] Diagnosis: Other fatigue[ICD10: R53.83] Pebbles Burden MD [facility] CPT-4: 57005 01/01/2017 ([id number]) Miscellaneous no charge Diagnosis: Essential (primary) hypertension[ICD10: I10] Pebbles Burden MD [facility] CPT-4: 94882 12/20/2016 ([id number]) 58812 EST. 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 PATIENT, LEVEL IV Diagnosis: Essential (primary) hypertension[ICD10: I10] Diagnosis: Other allergic rhinitis[ICD10: J30.89] Diagnosis: Gastro-esophageal reflux disease without esophagitis[ICD10: K21.9] Kim Burden MD [facility] CPT-4: 22279 10/15/2016 ([id number]) 14040 EST. PATIENT, LEVEL III Diagnosis: Essential (primary) hypertension[ICD10: I10] Diagnosis: Major depressive disorder, recurrent, mild[ICD10: F33.0] Kim Burden MD [facility] CPT-4: 78379 07/17/2016 ([id number]) 95861 EST. PATIENT, LEVEL III Diagnosis: Pain in left hip[ICD10: M25.552] Diagnosis: Acute laryngopharyngitis[ICD10: J06.0] Kim Burden MD [facility] CPT-4: 76149 05/15/2016 ([id number]) 96562 EST. PATIENT, LEVEL III Diagnosis: Fracture of unspecified parts of lumbosacral spine and pelvis, initial encounter for closed fracture[ICD10: S32.9XXA] Diagnosis: Essential (primary) hypertension[ICD10: I10] Kim Burden MD [facility] CPT-4: 85571 04/23/2016 03795 EST. PATIENT, LEVEL IV Diagnosis: Acute laryngopharyngitis[ICD10: J06.0] Diagnosis: Other allergic rhinitis[ICD10: J30.89] Pebbles Burden MD, [facility] CPT- 4: 76039 03/14/2016 45829 EST. PATIENT, LEVEL IV Diagnosis: Dysuria[ICD10: R30.0] Diagnosis: Left lower quadrant pain[ICD10: R10.32] Pebbles Burden MD, [facility] CPT-4: 24056 02/19/2016 ([id number]) 46816 EST. PATIENT, LEVEL IV Diagnosis: Essential (primary) hypertension[ICD10: I10] Diagnosis: Gastro-esophageal reflux disease without esophagitis[ICD10: K21.9] Diagnosis: Major depressive disorder, recurrent, mild[ICD10: F33.0] Kim Burden MD, [facility] CPT-4: 50669 12/19/2015 ([id number]) 29302 EST. PATIENT, LEVEL IV Diagnosis: ESSENTIAL HYPERTENSION[ICD9: 401.9] Diagnosis: ACUTE URI[ICD9: 465.9] Kim Burden MD, [facility] CPT-4: 08014 03/06/2015 ([id number]) OFFICE VISIT, NEW - LEVEL 4 Diagnosis: ESOPHAGEAL REFLUX[ICD9: 530.81] Diagnosis: ESSENTIAL HYPERTENSION[ICD9: 401.9] Diagnosis: COPD (chronic obstructive pulmonary disease)[ICD9: 496] Diagnosis: ALLERGIC RHINITIS[ICD9: 477.9] Mallorie Burden MD, [facility] CPT-4: 41909 02/07/2015 Plan of Care Planned Activity Notes [...] point of constipation. Vitamin b12 injection. 12/22/2018 Patient Education: Patient Medication Summary Completed [...] office 09/15/2018 Appointment: Mallorie Wetzel WPtel: [phone] [phone] (30 min) Complex 09/15/2018 Patient Education: Patient Medication Summary Completed 09/15/2018 Care Plan: Referral Order SNOMED-CT : [id number] Pending 09/15/2018 Appointment: Kim Burden WPtel: [facility] (15 min) Moderate 08/25/2018 Visit Plan: Hypertension [...] day. 08/18/2018 Appointment: Kim Burden WPtel: [phone] [facility] (15 min) Moderate 08/18/2018 Patient Education: Patient [...] anxiolytic. 08/04/2018 [facility]ment[phone] ([facility]) Moderate 08/04/2018 Appointment: Nurse Visit [...] home. 07/22/2018 App[facility]ment[phone] (15 min) Moderate 07/22/2018 Patient Education: Patient [...] nystatin swish and swallow. 04/21/2018 Appointment: [facility]den [phone] (15 min) Moderate 04/21/2018 Patient Education: [...] [phone] ([facility] min) Complex 04/09/2018 Patient Education: Patient [...] changes. 01/19/2018 Appointment: Kim Burden WPtel: [phone] [facility] (15 min) Moderate 01/19/2018 Patient Education: Patient Medication Summary Completed 01/19/2018 Appointment: Kim Burden WPtel: [phone] [facility] (15 min) Moderate 01/14/2018 Visit Plan: Medicare [...] [phone] [facility] - Annual Wellness Visit 12/18/2017 [...] at home. 10/16/2017 Appointment: Kim Burden WPtel: [facility] (15 min) Moderate 10/16/2017 Patient Education: Patient [...] [phone] (15 min) Moderate 09/03/2017 Patient Education: Patient Medication Summary Completed 09/03/2017 Appointment: Kim Burden WPtel: [facility] (15 min) Moderate 08/11/2017 Appointment: Kim Burden WPtel: [facility] (15 min) Moderate 08/11/2017 Patient Education: Patient [...] current treatment. 07/31/2017 Appointment: Kim Burden WPtel: [facility] (15 min) Moderate 07/31/2017 Patient Education: Patient Medication Summary Completed 07/31/2017 Appointment: Nurse Visit 07/18/2017 Patient Education: Patient Medication Summary Completed 07/18/2017 Patient Education: Patient Medication Summary Completed 07/18/2017 Appointment: Kim Burden WPtel[facility] (15 min) Moderate 06/30/2017 Visit Plan: Effusion left knee-fall 2 weeks ago-recommend compression of joint and refer to Ortho for evaluation and treatment-will refer to Dr Pryor/Quinton Mccormick. Patient verbalized understanding of plan. 06/16/2017 Appointment: Mallorie Wetzel WPtel: [phone] [place] (30 min) Complex 06/16/2017 Patient Education: [...] when active. 05/28/2017 Appointment: [phone] [facility] (15 min) Moderate 05/28/2017 Patient Education: Patient [...] changes. 05/05/2017 Appointment: Kim Burden WPtel: [phone] [facility] (15 min) Moderate 05/05/2017 Patient Education: Patient [...] medications. 03/13/2017 Appointment: [phone] [facility] (15 min) Moderate 03/13/2017 Patient Education: [...] worsening. 02/10/2017 Appointment: [phone] [facility] (15 min) Moderate 02/10/2017 Patient Education: [...] improving. 01/14/2017 Appointment: [phone] [facility] (15 min) Moderate 01/14/2017 Patient Education: [...] or concerns. 01/07/2017 Appointment: Pebbles Lund [facility]el[phone] (30 min) Complex 01/07/2017 Patient Education: Patient [...] [place] [phone] (30 min) Complex 01/01/2017 Patient Education: Patient [...] care surrogate. 12/12/2016 Appointment: Pebbles Lund [facility]Ptel[phone] [facility] [facility] - Annual Wellness Visit 12/12/2016 [...] time. 12/11/2016 Appointment: [phone] [facility] [place] (15 min) Moderate 12/11/2016 Patient Education: Patient Medication Summary Completed 12/11/2016 Appointment: Mallorie Wetzel [facility]el[phone] [place] (30 min) Complex 12/10/2016 Visit Plan: [...] not improving. 10/15/2016 Appointment: Kim Burden WPtel: [phone] [facility] (15 min) Moderate 10/15/2016 Patient Education: Patient [...] restaurant. 07/17/2016 Appointment: Kim Burden WPtel: [address] [facility] (15 min) Moderate 07/17/2016 Patient Education: Patient Medication Summary Completed 07/17/2016 Appointment: Kim Burden WPtel: [phone] [facility] (15 min) Moderate 06/10/2016 Visit Plan: Hip pain - persistent but improving - continue with current treatment plan. Pt to call if her symptoms are not improving or if her hip pain worsens. URI symptoms - supportive care, use otc allergy medications. 05/15/2016 Appointment: Kim Burden WPtel: [phone] [facility] (15 min) Moderate 05/15/2016 Patient Education: Patient [...] improving. 04/23/2016 Appointment: Kim Burden WPtel: [phone] [facility] (15 min) Moderate 04/23/2016 Patient Education: Patient Medication Summary Completed 04/23/2016 Patient Education: Hypertension Completed 04/23/2016 Care Plan: X-RAY EXAM OF ABDOMEN [facility] : 03331-8 Pending 03/18/2016 Visit Plan: URI - Pt [...] allergy spray. 03/14/2016 Appointment: Pebbles Lund WPtel: [facility] (30 min) Complex 03/14/2016 Patient Education: Patient Medication Summary Completed 03/14/2016 Patient Education: Patient Medication Summary Completed 02/29/2016 Visit Plan: Flank pain - pt is currently being treated for UTI, but is having continued left flank pain - will get KUB - pt is to notify clinic if symptoms do not improve, or with any concerns. 02/19/2016 Appointment: Pebbles Lund WPtel: [facility] (30 min) Complex 02/19/2016 Patient Education: Patient Medication Summary Completed 02/19/2016 Appointment: Kim Burden WPtel: [phone] [facility] (15 min) Moderate 01/22/2016 Visit Plan: Hypertension [...] improving. 12/19/2015 Appointment: Kim Burden WPtel: [phone] [facility] (15 min) Moderate 12/19/2015 Patient Education: Patient [...] RX. 03/06/2015 Appointment: [phone] Follow up 03/06/2015 Patient Education: Patient [...] Completed 02/07/2015 Care Plan: SCREENINGMAMMOGRAPHYDIGITAL LOINC : 74155-8 Ordered 02/07/2015 Care Plan: COMPLETE CBC AUTOMATED LOINC : 86319-6 Ordered 02/07/2015 Referral: Consuelo Chavez Referral Appointment [...] her DOPA paperwork for health care surrogate. continue with the questran - just decrease [...] - supportive care, use otc allergy medications. kenalog . Chest pain- refer to Dr [...] pain occurs at the site of injection. CHECK YOUR BLOOD PRESSURE AND PULSE AT [...] attempt to alleviate the low blood pressures. restart the metoprolol 50mg pill and take [...] current medications. TAKE WITH FOOD AND PROBIOTIC (Crovat OR Chegongfang) . URI - Pt advised to increase [...] to help decrease GI upset./loose stools - [employer] or [employer] . Hypertension - well controlled - continue [...] worsen, or with any questions or concerns. change the metoprolol to 1 pill in [...] dependent - chronic, continue with current treatment. Restart breo kenalog injection today -start oral [...]
[2019-04-06 09:06] LABS: PROTHROMBIN TIME PATIENT 13.1 SEC (12.2-14.7)
--- OUTSIDE RECORDS SUMMARY | 2019-04-06 09:07 | XMS REPORT | CCD ---
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 Marital status Unknown 02/07/2015 Number of children Unknown 3 02/07/[address]: 4589974 Quit over 10 years ago 199302/07/2015 Number [...] Codes Condition Status Onset Date Resolved Date Other vitamin B12 deficiency anemias ICD-9: 281.1 ICD-10: D51.8 Active 06/02/2018 Unknown Chest pain, unspecified ICD-9: 786.50 ICD-10: R07.9 Active 09/15/2018 Unknown Other allergic rhinitis ICD-9: 477.9 ICD-10: J30.89 Active 02/06/2015 Unknown Other emphysema ICD-9: 492.8 ICD-10: J43.8 Active 07/31/2017 Unknown Essential (primary) hypertension ICD-9: 401.1 ICD-10: I10 Active 01/14/2017 Unknown Fecal urgency ICD-9: 787.63 ICD-10: R15.2 Active 07/22/2018 Unknown Major depressive disorder, recurrent, mild ICD-9: [...] Problems Condition Codes Effective Dates Condition Status Other vitamin B12 deficiency anemias ICD-9: 281.1 ICD-10: D51.8 06/02/2018 Active Chest pain, unspecified ICD-9: 786.50 ICD-10: R07.9 09/15/2018 Active Other allergic rhinitis ICD-9: 477.9 ICD-10: J30.89 02/06/2015 Active Other emphysema ICD-9: 492.8 ICD-10: J43.8 07/31/2017 Active Essential (primary) hypertension ICD-9: 401.1 ICD-10: I10 01/14/2017 Active Fecal urgency ICD-9: 787.63 ICD-10: R15.2 07/22/2018 Active Major depressive disorder, recurrent, mild ICD-9: [...] Start Date Stop Date Status Fill Instructions metoprolol tartrate 50 mg tablet RxNorm: 569736 1/2 Tablet(s) PO BID 11/06/2018 10/31/2019 Active alprazolam 1 mg tablet RxNorm: 020864 1/2 Tablet(s) PO TID 11/06/2018 08/02/2019 Active ibuprofen 800 mg tablet RxNorm: 033025 Tablet(s) TAKE 1 TABLET THREE TIMES DAILY 11/06/2018 10/31/2019 Active losartan 100 mg tablet RxNorm: 077726 Tablet(s) TAKE 1 TABLET EVERY EVENING 11/06/2018 10/31/2019 Active Lexapro 10 mg tablet RxNorm: 057925 Tablet(s) TAKE 1 TABLET EVERY DAY 11/06/2018 10/31/2019 Active cyanocobalamin (vit B-12) 1,000 mcg/mL injection solution RxNorm: 819720 1 Milliliter(s) Inj 10/01/2018 10/01/2018 Inactive ibuprofen 800 mg tablet RxNorm: 021020 TAKE 1 TABLET THREE TIMES DAILY 09/28/2018 11/05/2018 Inactive cyanocobalamin (vit B-12) 1,000 mcg/mL injection solution RxNorm: 574546 1 Milliliter(s) Inj 09/15/2018 09/15/2018 Inactive Kenalog 40 mg/mL suspension for injection RxNorm: 2308757 Milliliter(s) Inj 09/15/2018 09/15/2018 Inactive alprazolam 1 mg tablet RxNorm: 575811 1/2 Tablet(s) PO TID 08/10/2018 11/05/2018 Inactive cyanocobalamin (vit B-12) 1,000 mcg/mL injection solution RxNorm: 810834 Milliliter(s) Inj 08/04/2018 08/04/2018 Inactive alprazolam 1 mg tablet RxNorm: 411102 1/2 Tablet(s) PO BID 08/04/2018 08/09/2018 Inactive cholestyramine (with sugar) 4 gram powder for susp in a packet RxNorm: 510911 1/2 to 1 packet PO TID take 30 minutes before meals 07/22/2018 07/16/2019 Active cyanocobalamin (vit B-12) 1,000 mcg/mL injection solution RxNorm: 608899 1 Milliliter(s) Inj 07/16/2018 07/16/2018 Inactive omeprazole 20 mg capsule,delayed release RxNorm: 003556 Capsule(s) TAKE 1 CAPSULE TWICE DAILY 07/01/2018 06/25/2019 Active cyanocobalamin (vit B-12) 1,000 mcg/mL injection solution RxNorm: 286940 Milliliter(s) Inj 07/01/2018 07/01/2018 Inactive omeprazole 20 mg capsule,delayed release RxNorm: 400773 TAKE 1 CAPSULE TWICE DAILY 07/01/2018 06/30/2018 Inactive alprazolam 1 mg tablet RxNorm: 265866 1 Tablet(s) PO TID 07/01/2018 08/03/2018 Inactive cyanocobalamin (vit B-12) 1,000 mcg/mL injection solution RxNorm: 690296 Milliliter(s) Inj 06/15/2018 06/15/2018 Inactive cyanocobalamin (vit B-12) 1,000 mcg/mL injection solution RxNorm: 920851 Milliliter(s) Inj 06/02/2018 06/02/2018 Inactive fluticasone 50 mcg/actuation nasal spray,suspension RxNorm: 1913549 1 [place] NASAL BID 05/26/2018 05/20/2019 Active Vitamin B-12 1,000 mcg/mL injection solution RxNorm: 566174 1 Milliliter(s) Inj Q2 weeks x2 months and then monthly injections 05/21/2018 No Stop Date Active cyanocobalamin (vit B-12) 1,000 mcg/mL injection solution RxNorm: 641686 Milliliter(s) Inj 05/21/2018 05/21/2018 Inactive fluticasone 50 mcg/actuation nasal spray,suspension RxNorm: 7379163 1 [place] NASAL BID 05/19/2018 05/25/2018 Inactive fluticasone 50 mcg/actuation nasal spray,suspension RxNorm: 0777055 1 [place] NASAL BID 05/18/2018 05/18/2018 Inactive fluticasone 50 mcg/actuation nasal spray,suspension RxNorm: 7882910 1 [place] NASAL BID 05/15/2018 05/17/2018 Inactive fluticasone 50 mcg/actuation nasal spray,suspension RxNorm: 7186887 1 [place] NASAL BID 05/15/2018 05/14/2018 Inactive nystatin 100,000 unit/mL oral suspension RxNorm: 957690 5 Milliliter(s) PO QID 04/21/2018 04/30/2018 Inactive Breo Ellipta 100 mcg-25 mcg/dose powder for inhalation RxNorm: 7207069 1 INH daily 04/09/2018 04/03/2019 Active please call patient with jaramillo before sending prednisone 20 mg tablet RxNorm: 767213 1 Tablet(s) PO BID 04/09/2018 04/13/2018 Inactive start tomorrow Kenalog 40 mg/mL suspension for injection RxNorm: 3427130 1.5 Milliliter(s) Inj 04/09/2018 04/09/2018 Inactive Breo Ellipta 100 mcg-25 mcg/dose powder for inhalation RxNorm: 5966448 1 INH daily 04/09/2018 04/08/2018 Inactive alprazolam 1 mg tablet RxNorm: 542986 1 Tablet(s) PO TID 03/13/2018 06/30/2018 Inactive losartan 100 mg tablet RxNorm: 114162 TAKE 1 TABLET EVERY EVENING 03/02/2018 11/05/2018 Inactive Ventolin HFA 90 mcg/actuation aerosol inhaler RxNorm: 009162 2 INH Q4-6H as needed 12/29/2017 02/26/2018 Inactive Ventolin HFA 90 mcg/actuation aerosol inhaler RxNorm: 277775 2 INH Q4-6H as needed 12/29/2017 12/28/2017 Inactive Diflucan 150 mg tablet RxNorm: 033371 1 Tablet(s) PO daily 11/03/2017 11/05/2017 Inactive please call pt to let herknow when to pick- up the med Keflex 500 mg capsule RxNorm: 648011 1 Capsule(s) PO TID 10/23/2017 10/29/2017 Inactive Kenalog 40 mg/mL suspension for injection RxNorm: 6913512 1 Milliliter(s) Inj 10/16/2017 10/16/2017 Inactive ibuprofen 800 mg tablet RxNorm: 345112 TAKE 1 TABLET THREE TIMES DAILY 10/15/2017 09/27/2018 Inactive Lexapro 10 mg tablet RxNorm: 489551 TAKE 1 TABLET EVERY DAY 10/15/2017 10/09/2018 Inactive hydrocodone 5 mg-acetaminophen 325 mg tablet RxNorm: 881171 1 Tablet(s) PO QID as needed 09/03/2017 07/21/2018 Inactive omeprazole 20 mg capsule,delayed release RxNorm: 717160 1 Capsule(s) PO BID 09/02/2017 06/30/2018 Inactive alprazolam 1 mg tablet RxNorm: 410447 1 Tablet(s) PO TID 09/02/2017 03/12/2018 Inactive metoprolol tartrate 50 mg tablet RxNorm: 457108 1/2 Tablet(s) PO BID 06/26/2017 06/20/2018 Inactive omeprazole 20 mg capsule,delayed release RxNorm: 223632 1 Capsule(s) PO BID 06/05/2017 09/01/2017 Inactive omeprazole 20 mg capsule,delayed release RxNorm: 965112 1 Capsule(s) PO BID 05/28/2017 06/04/2017 Inactive omeprazole 20 mg capsule,delayed release RxNorm: 378237 1 Capsule(s) PO QPM 05/27/2017 05/27/2017 Inactive Breo Ellipta 100 mcg-25 mcg/dose powder for inhalation RxNorm: 1869778 1 INH daily 05/05/2017 04/08/2018 Inactive alprazolam 1 mg tablet RxNorm: 422011 1 Tablet(s) PO TID 02/10/2017 08/07/2017 Inactive metoprolol tartrate 50 mg tablet RxNorm: 404735 1/2 Tablet(s) PO BID 02/10/2017 06/25/2017 Inactive losartan 100 mg tablet RxNorm: 693442 1 Tablet(s) PO QPM 02/10/2017 02/04/2018 Inactive losartan 50 mg tablet RxNorm: 361137 2 Tablet(s) PO QPM 01/23/2017 02/09/2017 Inactive Diflucan 150 mg tablet RxNorm: 244324 1 Tablet(s) PO daily 01/20/2017 01/22/2017 Inactive please call pt to let herknow when to pick- up the med Diflucan 150 mg tablet RxNorm: 255661 1 Tablet(s) PO daily 01/20/2017 01/19/2017 Inactive please call pt to let herknow when to pick- up the med losartan 50 mg tablet RxNorm: 958597 1 Tablet(s) PO QPM 01/14/2017 01/22/2017 Inactive Cipro 500 mg tablet RxNorm: 724301 1 Tablet(s) PO BID 01/08/2017 01/17/2017 Inactive Cipro 500 mg tablet RxNorm: 055940 1 Tablet(s) PO BID 01/08/2017 01/07/2017 Inactive Lexapro 10 mg tablet RxNorm: 490393 TAKE 1 TABLET EVERY DAY 12/20/2016 10/14/2017 Inactive metoprolol tartrate 50 mg tablet RxNorm: 264934 1 Tablet(s) PO in the morning and 1.5 pill at night 12/11/2016 01/13/2017 Inactive spironolactone 25 mg tablet RxNorm: 391858 TAKE 1 TABLET EVERY DAY 11/04/2016 07/21/2018 Inactive metoprolol tartrate 50 mg tablet RxNorm: 127545 TAKE 1 TABLET TWICE DAILY 10/29/2016 12/10/2016 Inactive ibuprofen 800 mg tablet RxNorm: 242752 TAKE 1 TABLET THREE TIMES DAILY 10/21/2016 10/14/2017 Inactive Astepro 0.15 % (205.5 mcg) nasal spray RxNorm: 2701626 1 [place] NASAL BID 10/15/2016 10/14/2016 Inactive Astepro 0.15 % (205.5 mcg) nasal spray RxNorm: 1401166 1 [place] NASAL BID 10/15/2016 07/21/2018 Inactive Astepro 0.15 % (205.5 mcg) nasal spray RxNorm: 8025766 1 [place] NASAL BID 10/15/2016 10/14/2016 Inactive omeprazole 20 mg capsule,delayed release RxNorm: 235365 1 Capsule(s) PO QPM 10/15/2016 05/26/2017 Inactive omeprazole 20 mg capsule,delayed release RxNorm: 040285 1 Capsule(s) QPM 10/15/2016 10/14/2016 Inactive omeprazole 20 mg capsule,delayed release RxNorm: 860681 TAKE 1 CAPSULE TWICE DAILY 09/02/2016 10/14/2016 Inactive Lexapro 10 mg tablet RxNorm: 309391 TAKE 1 TABLET EVERY DAY 08/21/2016 12/19/2016 Inactive calcitonin (salmon) 200 unit/actuation nasal spray RxNorm: 171486 1 [place] NASAL daily ONE SPRAY PER ONE NOSTRIL DAILY- ALTERNATE NOSTRILS DAILY 05/31/2016 05/30/2016 Inactive She will do this for 3 months- If she wants to do a 3 month supply at one time she can without refill calcitonin (salmon) 200 unit/actuation nasal spray RxNorm: 574610 1 [place] NASAL daily ONE SPRAY PER ONE NOSTRIL DAILY- ALTERNATE NOSTRILS DAILY 05/31/2016 07/30/2016 Inactive x3 months- no refills Forteo 20 mcg/dose (600 mcg/2.4 mL) subcutaneous pen injector RxNorm: 2215708 1 injection SQ daily 05/22/2016 05/30/2016 Inactive call pt with jaramillo first Forteo 20 mcg/dose (600 mcg/2.4 mL) subcutaneous pen injector RxNorm: 8407657 1 injection SQ daily 05/22/2016 05/21/2016 Inactive Prolia 60 mg/mL subcutaneous syringe RxNorm: 491800 1 Milliliter(s) SQ every 6 months 05/13/2016 07/21/2018 Inactive Please check jaramillo through insurance and let me know- Thanks! Mary Ellen alprazolam 1 mg tablet RxNorm: 700648 1 Tablet(s) PO TID 05/08/2016 11/01/2016 Inactive Lexapro 10 mg tablet RxNorm: 193532 TAKE 1 TABLET EVERY DAY 04/22/2016 08/20/2016 Inactive spironolactone 25 mg tablet RxNorm: 729481 TAKE 1 TABLET EVERY DAY 04/22/2016 11/03/2016 Inactive Diflucan 150 mg tablet RxNorm: 024978 1 Tablet(s) PO daily 03/20/2016 04/14/2016 Inactive Diflucan 150 mg tablet RxNorm: 476386 1 Tablet(s) PO daily 03/20/2016 03/19/2016 Inactive Augmentin 500 mg-125 mg tablet RxNorm: 207289 1 Tablet(s) PO TID 03/14/2016 03/23/2016 Inactive omeprazole 20 mg capsule,delayed release RxNorm: 206277 1 Tablet(s) PO BID 03/06/2016 09/01/2016 Inactive [SAVINGS FOR NON-COVERED DRUGS -- BIN:784639, PCN: ASPROD1, Group: XXXXX, ID# XXXXXXX, Questions: . THIS IS NOT INSURANCE.] amlodipine 5 mg tablet RxNorm: 491520 TAKE 1 TABLET EVERY DAY 03/01/2016 04/22/2016 Inactive omeprazole 20 mg tablet,delayed release RxNorm: 083618 1 Tablet(s) PO BID 02/27/2016 03/05/2016 Inactive [SAVINGS FOR NON-COVERED DRUGS -- BIN:075761, PCN: ASPROD1, Group: XXXXX, ID# XXXXXXX, Questions: . THIS IS NOT INSURANCE.] spironolactone 25 mg tablet RxNorm: 803134 TAKE 1 TABLET EVERY DAY 12/21/2015 04/21/2016 Inactive Lexapro 10 mg tablet RxNorm: 620777 1 Tablet(s) PO daily 12/19/2015 01/01/2016 Inactive Lexapro 10 mg tablet RxNorm: 378374 1 Tablet(s) PO daily 12/19/2015 02/09/2017 Inactive Lexapro 10 mg tablet RxNorm: 774791 1 Tablet(s) PO daily 12/19/2015 12/18/2015 Inactive alprazolam 1 mg tablet RxNorm: 883829 1 Tablet(s) PO TID 12/01/2015 02/28/2016 Inactive ibuprofen 800 mg tablet RxNorm: 679546 1 Tablet(s) PO TID 10/26/2015 10/20/2016 Inactive alprazolam 1 mg tablet RxNorm: 911450 1 Tablet(s) PO TID 08/23/2015 07/21/2018 Inactive spironolactone 25 mg tablet RxNorm: 545506 1 Tablet(s) PO daily 08/21/2015 12/20/2015 Inactive metoprolol tartrate 50 mg tablet RxNorm: 201572 1 Tablet(s) PO BID 08/10/2015 08/03/2016 Inactive [SAVINGS FOR NON-COVERED DRUGS -- BIN:553760, PCN: ASPROD1, Group: XXXXX, ID# XXXXXXX, Questions: . THIS IS NOT INSURANCE.] omeprazole 20 mg tablet,delayed release RxNorm: 048183 1 Tablet(s) PO BID 08/07/2015 02/02/2016 Inactive [SAVINGS FOR NON-COVERED DRUGS -- BIN:863037, PCN: ASPROD1, Group: XXXXX, ID# XXXXXXX, Questions: . THIS IS NOT INSURANCE.] Keflex 500 mg capsule RxNorm: 224963 1 Capsule(s) PO TID 07/10/2015 07/16/2015 Inactive alprazolam 1 mg tablet RxNorm: 198006 1 Tablet(s) PO TID 06/02/2015 08/22/2015 Inactive alprazolam 1 mg tablet RxNorm: 406300 1 Tablet(s) PO TID 03/29/2015 06/01/2015 Inactive amlodipine 5 mg tablet RxNorm: 452286 1 Tablet(s) PO daily 03/06/2015 02/29/2016 Inactive Nasonex 50 mcg/actuation [place] RxNorm: 093841 1 [place] NASAL daily 03/03/2015 03/02/2015 Inactive Keflex 500 mg capsule RxNorm: 794812 1 Capsule(s) PO TID 03/03/2015 03/02/2015 Inactive Nasonex 50 mcg/actuation [place] RxNorm: 275217 1 [place] NASAL daily 03/03/2015 05/01/2015 Inactive Keflex 500 mg capsule RxNorm: 081999 1 Capsule(s) PO TID 03/03/2015 03/05/2015 Inactive Carafate 1 gram tablet RxNorm: 954335 TAKE 1 TABLET FOUR TIMES DAILY 30 MINUTES BEFORE MEALS AND AT BEDTIME 02/28/2015 12/18/2015 Inactive Kenalog 40 mg/mL suspension for injection RxNorm: 8537917 Milliliter(s) Inj 02/07/2015 02/07/2015 Inactive [SAVINGS FOR NON-COVERED DRUGS -- BIN:718478, PCN: ASPROD1, Group: XXXXX, ID# XXXXXXX, Questions: . THIS IS NOT INSURANCE.] metoprolol tartrate 50 mg tablet RxNorm: 148592 1 Tablet(s) PO BID 02/07/2015 08/09/2015 Inactive [SAVINGS FOR NON-COVERED DRUGS -- BIN:116780, PCN: ASPROD1, Group: XXXXX, ID# XXXXXXX, Questions: . THIS IS NOT INSURANCE.] Carafate 1 gram tablet RxNorm: 457083 1 Tablet(s) PO QID 02/07/2015 02/27/2015 Inactive 30 min before meals and at bedtime omeprazole 20 mg tablet,delayed release RxNorm: 008977 1 Tablet(s) PO BID 02/07/2015 08/05/2015 Inactive [SAVINGS FOR NON-COVERED DRUGS -- BIN:417373, PCN: ASPROD1, Group: XXXXX, ID# XXXXXXX, Questions: . THIS IS NOT INSURANCE.] Vitamin D3 2,000 unit tablet RxNorm: 850934 1 Tablet(s) PO daily No Start Date Active aspirin 81 mg tablet RxNorm: 109051 1 Tablet(s) PO daily No Start Date Active amlodipine 2.5 mg tablet RxNorm: 851975 1 Tablet(s) PO daily No Start Date 03/05/2015 Inactive spironolactone 25 mg tablet RxNorm: 562489 1 Tablet(s) PO daily No Start Date 08/20/2015 Inactive cetirizine 10 mg tablet RxNorm: 3189611 1 Tablet(s) PO daily No Start Date 12/18/2015 Inactive metoprolol tartrate 50 mg tablet RxNorm: 472646 1 Tablet(s) PO daily No Start Date 02/06/2015 Inactive ipratropium bromide 0.06 % nasal spray RxNorm: 263474 nasal No Start Date 12/18/2015 Inactive alprazolam 1 mg tablet RxNorm: 074391 1 Tablet(s) PO TID No Start Date 03/28/2015 Inactive Prolia 60 mg/mL subcutaneous syringe RxNorm: 339834 1 Milliliter(s) SQ every 6 months No Start Date 05/12/2016 Inactive Please check jaramillo through insurance and let me know- Thanks! Mary Ellen ibuprofen 800 mg tablet RxNorm: 525806 1 Tablet(s) PO TID No Start Date 10/25/2015 Inactive Protonix 40 mg tablet,delayed release RxNorm: 568385 1 Tablet(s) PO daily No Start Date 03/05/2015 Inactive Vitamin B-12 1,000 mcg/mL injection solution RxNorm: 472932 1 Milliliter(s) Inj Q2 weeks x2 months and then monthly injections No Start Date 05/20/2018 Inactive loratadine 10 mg tablet RxNorm: 018456 1 Tablet(s) PO daily No Start Date 07/21/2018 Inactive Medication Administered Medication Codes Instructions Start Date Status cyanocobalamin (vit B-12) 1,000 mcg/mL injection solution RxNorm: 650358 1Milliliter 10/01/2018 No longer Active Kenalog 40 mg/mL suspension for injection RxNorm: 7340812 Milliliter 09/15/2018 No longer Active cyanocobalamin (vit B-12) 1,000 mcg/mL injection solution RxNorm: 335000 1Milliliter 09/15/2018 No longer Active cyanocobalamin (vit B-12) 1,000 mcg/mL injection solution RxNorm: 449394 Milliliter 08/04/2018 No longer Active cyanocobalamin (vit B-12) 1,000 mcg/mL injection solution RxNorm: 011390 1Milliliter 07/16/2018 No longer Active cyanocobalamin (vit B-12) 1,000 mcg/mL injection solution RxNorm: 250737 Milliliter 07/01/2018 No longer Active cyanocobalamin (vit B-12) 1,000 mcg/mL injection solution RxNorm: 796342 Milliliter 06/15/2018 No longer Active cyanocobalamin (vit B-12) 1,000 mcg/mL injection solution RxNorm: 381682 Milliliter 06/02/2018 No longer Active cyanocobalamin (vit B-12) 1,000 mcg/mL injection solution RxNorm: 188731 Milliliter 05/21/2018 No longer Active Kenalog 40 mg/mL suspension for injection RxNorm: 8975934 1.5Milliliter 04/09/2018 No longer Active Kenalog 40 mg/mL suspension for injection RxNorm: 6535876 1Milliliter 10/16/2017 No longer Active Kenalog 40 mg/mL suspension for injection RxNorm: 5180275 Milliliter 02/07/2015 No longer Active Immunizations Vaccine Codes Date Status Influenza CVX: 141 06/25/2018 completed Pneumococcal (Adult) CVX: 33 08/28/2016 completed Assessments Condition Codes Effective Dates Other vitamin B12 deficiency anemias ICD-10: D51.8 ICD-9: 281.1 10/01/2018 Chest pain, unspecified ICD-10: R07.9 ICD-9: 786.50 09/15/2018 Other allergic rhinitis ICD-10: J30.89 ICD-9: 477.9 09/15/2018 Essential (primary) hypertension ICD-10: I10 ICD-9: 401.1 08/18/2018 Fecal urgency ICD-10: R15.2 ICD-9: 787.63 08/18/2018 Major depressive disorder, recurrent, 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 [...] Visit Reason For Visit Effective Dates Notes chest pain/pressure 09/15/2018 diarrhea 08/18/2018 gait abnormality [...] Item Item Code Result Date Comp Metabolic Hzy342 NA 138 mEq/L 09/03/2017 Comp Metabolic Qwz742 K 3.9 mEq/L 09/03/2017 Comp Metabolic Ovj505 CL 102 mEq/L 09/03/2017 Comp Metabolic Euh429 CO2 32.0 mEq/L 09/03/2017 Comp Metabolic Cwj221 ANION GAP 8 09/03/2017 Comp Metabolic Mbl195 GLUCOSE 89 mg/dL 09/03/2017 Comp Metabolic Hkk616 Creat 0.6 mg/dL 09/03/2017 Comp Metabolic Bmp638 eGFR 103 ml/min/1.73m2 09/03/2017 Comp Metabolic Evq320 BUN 10 mg/dL 09/03/2017 Comp Metabolic Szb133 B/C Ratio 16.7 Ratio 09/03/2017 Comp Metabolic Cds853 CALCIUM 8.9 mg/dL 09/03/2017 Comp Metabolic Qsq386 ALK PHOS 141 U/L 09/03/2017 Comp Metabolic Vzu807 AST(SGOT) 12 U/L 09/03/2017 Comp Metabolic Vpn698 ALT(SGPT) 7 U/L 09/03/2017 Comp Metabolic Dsw344 BILI T 0.6 mg/dL 09/03/2017 Comp Metabolic Cap974 ALBUMIN 3.6 g/dL 09/03/2017 Comp Metabolic Nop591 TPRO 6.6 g/dL 09/03/2017 Comp Metabolic Jfc429 GLOB 3.0 g/dL 09/03/2017 Comp Metabolic Ehg925 A/G Ratio 1.2 Ratio 09/03/2017 Comp Metabolic Ihg800 Osmo 274 mOsmo 09/03/2017 Hepatic Ccq017 ALBUMIN 3.7 g/dL 08/11/2017 Hepatic Ape968 TPRO 7.0 g/dL 08/11/2017 Hepatic Juk567 GLOB 3.3 g/dL 08/11/2017 Hepatic Ebq986 A/G Ratio 1.1 Ratio 08/11/2017 Hepatic Bcg834 ALK PHOS 85 U/L 08/11/2017 Hepatic Dpf673 ALT(SGPT) 11 U/L 08/11/2017 Hepatic Fzc194 AST(SGOT) 16 U/L 08/11/2017 Hepatic Kkg651 BILI T 0.6 mg/dL 08/11/2017 Hepatic Jkp174 BILI D 0.1 mg/dL 08/11/2017 Hepatic Dvu176 BILI I 0.5 mg/dL 08/11/2017 Hepatic Oei411 ALBUMIN 3.1 g/dL 07/18/2017 Hepatic Lnd406 TPRO 5.9 g/dL 07/18/2017 Hepatic Kns845 GLOB 2.8 g/dL 07/18/2017 Hepatic Ene410 A/G Ratio 1.1 Ratio 07/18/2017 Hepatic Adm988 ALK PHOS 123 U/L 07/18/2017 Hepatic Yed045 ALT(SGPT) 210 U/L 07/18/2017 Hepatic Ghs592 AST(SGOT) 71 U/L 07/18/2017 Hepatic Jzq426 BILI T 1.1 mg/dL 07/18/2017 Hepatic Ajy980 BILI D 0.4 mg/dL 07/18/2017 Hepatic Bml574 BILI I 0.7 mg/dL 07/18/2017 Cbc With Differential Ord2 WBC 4.97 K/ul 02/25/2017 Cbc With Differential Ord2 RBC 3.64 M/ul 02/25/2017 Cbc With Differential Ord2 HGB 11.8 g/dl 02/25/2017 Cbc With Differential Ord2 HCT 36.5 % 02/25/2017 Cbc With Differential Ord2 Neut% 59.9 % 02/25/2017 Cbc With Differential Ord2 Lymph% 24.5 % 02/25/2017 Cbc With Differential Ord2 MCV 100.3 fl 02/25/2017 Cbc With Differential Ord2 MCH 32.4 pg 02/25/2017 Cbc With Differential Ord2 [place]% 7.6 % 02/25/2017 Cbc With Differential Ord2 [...] 1.22 K/ul 02/25/2017 Cbc With Differential Ord2 [place] ABS# 0.4 K/ul 02/25/2017 Cbc With Differential [...] 32.3 pg 01/02/2017 Cbc With Differential Ord2 [place]% 7.8 % 01/02/2017 Cbc With Differential Ord2 [...] 0.90 K/ul 01/02/2017 Cbc With Differential Ord2 [place] ABS# 0.4 K/ul 01/02/2017 Cbc With Differential Ord2 Eos ABS# 0.3 K/ul 01/02/2017 Cbc With Differential Ord2 Baso ABS# 0.0 K/ul 01/02/2017 Lipid Ord30 CHOL 139 mg/dL 12/13/2016 Lipid Ord30 HDL 48.0 mg/dl 12/13/2016 Lipid Ord30 TRIG 84 mg/dL 12/13/2016 Lipid Ord30 LDL 74 mg/dL 12/13/2016 Lipid Ord30 C/HDL 2.9 Ratio 12/13/2016 Comp Metabolic Yyp380 NA 137 mEq/L 12/13/2016 Comp Metabolic Cef196 K 4.8 mEq/L 12/13/2016 Comp Metabolic Gpe877 CL 101 mEq/L 12/13/2016 Comp Metabolic Slk513 CO2 32.0 mEq/L 12/13/2016 Comp Metabolic Cqg154 ANION GAP 9 12/13/2016 Comp Metabolic Qiu307 GLUCOSE 95 mg/dL 12/13/2016 Comp Metabolic Hto674 Creat 0.8 mg/dL 12/13/2016 Comp Metabolic Bcf226 eGFR 79 ml/min/1.73m2 12/13/2016 Comp Metabolic Yff247 BUN 15 mg/dL 12/13/2016 Comp Metabolic Flr083 B/C Ratio 19.7 Ratio 12/13/2016 Comp Metabolic Qiq876 CALCIUM 9.3 mg/dL 12/13/2016 Comp Metabolic Djx956 ALK PHOS 63 U/L 12/13/2016 Comp Metabolic Wap167 AST(SGOT) 15 U/L 12/13/2016 Comp Metabolic Xxm360 ALT(SGPT) 10 U/L 12/13/2016 Comp Metabolic Nfa031 BILI T 0.7 mg/dL 12/13/2016 Comp Metabolic Pom337 ALBUMIN 3.7 g/dL 12/13/2016 Comp Metabolic Nmk711 TPRO 6.8 g/dL 12/13/2016 Comp Metabolic Rsl737 GLOB 3.2 g/dL 12/13/2016 Comp Metabolic Lni434 A/G Ratio 1.2 Ratio 12/13/2016 Comp Metabolic Nqk654 Osmo 274 mOsmo 12/13/2016 Cbc With Differential [...] 97.4 fl 12/13/2016 Cbc With Differential Ord2 MCH 31.9 pg 12/13/2016 Cbc With Differential Ord2 [place]% 9.9 % 12/13/2016 Cbc With Differential Ord2 Eos% 11.5 % 12/13/2016 Cbc With Differential Ord2 MCHC 32.8 pg 12/13/2016 Cbc With Differential Ord2 PLT 192 K/ul 12/13/2016 Cbc With Differential Ord2 Baso% 0.5 % 12/13/2016 Cbc With Differential Ord2 RDW 13.1 % 12/13/2016 Cbc With Differential Ord2 Neut ABS# 2.08 K/ul 12/13/2016 Cbc With Differential Ord2 Lymph ABS# 1.17 K/ul 12/13/2016 Cbc With Differential Ord2 [place] ABS# 0.4 K/ul 12/13/2016 Cbc With Differential [...] 63.9 % 12/19/2015 Cbc With Differential Ord2 Lymph% 26.7 % 12/19/2015 Cbc With Differential Ord2 MCV 97.3 fl 12/19/2015 Cbc With Differential Ord2 MCH 32.1 pg 12/19/2015 Cbc With Differential Ord2 [place]% 5.9 % 12/19/2015 Cbc With Differential Ord2 [...] 1.53 K/ul 12/19/2015 Cbc With Differential Ord2 [place] ABS# 0.3 K/ul 12/19/2015 Cbc With Differential [...] Ord30 C/HDL 2.8 Ratio 12/19/2015 Comp Metabolic Vci673 NA 135 mEq/L 12/19/2015 Comp Metabolic Ckh137 K 4.1 mEq/L 12/19/2015 Comp Metabolic Aic311 CL 99 mEq/L 12/19/2015 Comp Metabolic Ppy217 CO2 27.0 mEq/L 12/19/2015 Comp Metabolic Zmu582 ANION GAP 13 12/19/2015 Comp Metabolic Vca574 GLUCOSE 83 mg/dL 12/19/2015 Comp Metabolic Gje997 Creat 0.7 mg/dL 12/19/2015 Comp Metabolic Anw427 eGFR 88 ml/min/1.73m2 12/19/2015 Comp Metabolic Qus381 BUN 12 mg/dL 12/19/2015 Comp Metabolic Two679 B/C Ratio 17.4 Ratio 12/19/2015 Comp Metabolic Rju888 CALCIUM 9.0 mg/dL 12/19/2015 Comp Metabolic Dkz979 ALK PHOS 68 U/L 12/19/2015 Comp Metabolic Mtr544 AST(SGOT) 16 U/L 12/19/2015 Comp Metabolic Tdc743 ALT(SGPT) 13 U/L 12/19/2015 Comp Metabolic Syh803 BILI T 0.7 mg/dL 12/19/2015 Comp Metabolic Oik362 ALBUMIN 4.0 g/dL 12/19/2015 Comp Metabolic Jps134 TPRO 7.0 g/dL 12/19/2015 Comp Metabolic Led479 GLOB 3.0 g/dL 12/19/2015 Comp Metabolic Rug933 A/G Ratio 1.3 Ratio 12/19/2015 Comp Metabolic Cjc325 Osmo 269 mOsmo 12/19/2015 Review of Systems System Result Effective Dates Constitutional No recent illness 09/15/2018 Constitutional No [...] Procedure Codes Date THER/PROPH/DIAG INJ SC/IM CPT-4: 79870 10/01/2018 VITAMIN B12 INJECTION CPT- 4: J3420 10/01/2018 THER/PROPH/DIAG INJ SC/IM CPT-4: 92311 09/15/2018 VITAMIN B12 INJECTION CPT- 4: J3420 09/15/2018 TRIAMCINOLONE ACET INJ NOS CPT-4: J3301 09/15/2018 THER/PROPH/DIAG INJ SC/IM CPT-4: 10532 08/04/2018 VITAMIN B12 INJECTION CPT- 4: J3420 08/04/2018 THER/PROPH/DIAG INJ SC/IM CPT-4: 45281 07/16/2018 VITAMIN B12 INJECTION CPT- 4: J3420 07/16/2018 THER/PROPH/DIAG INJ SC/IM CPT-4: 47438 07/01/2018 VITAMIN B12 INJECTION CPT- 4: J3420 07/01/2018 ADMIN INFLUENZA VIRUS VAC CPT-4: G0008 06/25/2018 FLU VACC PRSV FREE INC ANTIG Formatting Model/CDA Sections, Assigned to/Miranda Ayala CPT-4: [id number] 06/25/2018 THER/PROPH/DIAG INJ SC/IM CPT-4: 33540 06/15/2018 VITAMIN B12 INJECTION CPT- 4: J3420 06/15/2018 THER/PROPH/DIAG INJ SC/IM CPT-4: 60016 06/02/2018 VITAMIN B12 INJECTION CPT- 4: J3420 06/02/2018 THER/PROPH/DIAG INJ SC/IM CPT-4: 57211 05/21/2018 VITAMIN B12 INJECTION CPT- 4: J3420 05/21/2018 TRIAMCINOLONE ACET INJ NOS CPT-4: J3301 04/09/2018 PPPS, SUBSEQ VISIT CPT- 4: G0439 12/18/2017 TRIAMCINOLONE ACET INJ NOS CPT-4: J3301 10/16/2017 DRAIN/INJECT JOINT/BURSA CPT-4: 86139 10/16/2017 PRESCRIP TRANSMIT VIA ERX SY CPT-4: G8553 05/05/2017 PRESCRIP TRANSMIT VIA ERX SY CPT-4: G8553 01/14/2017 PPPS, SUBSEQ VISIT CPT- 4: G0439 12/12/2016 PRESCRIP TRANSMIT VIA ERX SY CPT-4: G8553 10/15/2016 ADMIN PNEUMOCOCCAL VACCINE SNOMED CT: [id number] CPT-4: G0009 08/28/2016 Pneumococcal Polysaccharide Vaccine, 23-Valent, Ad CPT-4: 27794 08/28/2016 PRESCRIP TRANSMIT VIA ERX SY CPT-4: G8553 03/14/2016 PRESCRIP TRANSMIT VIA ERX SY CPT-4: G8553 12/19/2015 THER/PROPH/DIAG INJ SC/IM CPT-4: 06790 02/07/2015 TRIAMCINOLONE ACET INJ NOS CPT-4: J3301 02/07/2015 Vital Signs Date Vital 09/15/2018 Blood Pressure 1: 106/70 Code: 8480-6 BMI: 24.9 Code: 66517-1 Heart Rate 1: 74 bpm Height: 5'1" SpO2: 95% Weight: 132 lbs 08/18/2018 Blood Pressure 1: 128/70 Code: 8480-6 BMI: 25.1 Code: 35276-2 Heart Rate 1: 74 bpm Height: 5'1" SpO2: 95% Weight: 133 lbs 08/04/2018 Blood Pressure 1: 120/80 Code: 8480-6 Blood Pressure 1: 122/80 Code: 8480-6 Blood Pressure 2: 120/82 Code: 8480-6 BMI: 25.5 Code: 86419-8 Heart Rate 1: 67 bpm Heart Rate 1: 63 bpm Height: 5'1" Weight: 135 lbs Weight: 07/22/2018 Blood Pressure 1: 120/82 Code: 8480-6 BMI: 24.9 Code: 91643-3 Heart Rate 1: 64 bpm Height: 5'1" SpO2: 95% Weight: 132 lbs 04/21/2018 Blood Pressure 1: 108/70 Code: 8480-6 BMI: 24.4 Code: 56295-4 Heart Rate 1: 62 bpm Height: 5'1" SpO2: 94% Weight: 129 lbs 04/09/2018 Blood Pressure 1: 138/86 Code: 8480-6 BMI: 25.5 Code: 51238-7 Heart Rate 1: 64 bpm Height: 5'1" SpO2: 99% Temperature: 36.4 (C) / 97.5 (F) Weight: 135 lbs 01/19/2018 Blood Pressure 1: 128/76 Code: 8480-6 BMI: 25.9 Code: 79725-2 Heart Rate 1: 65 bpm Height: 5'1" SpO2: 98% Weight: 137 lbs 12/18/2017 Blood Pressure 1: 144/82 Code: 8480-6 BMI: 26.1 Code: 14297-9 Heart Rate 1: 57 bpm Height: 5'1" SpO2: 97% Waist Measure (cm): 74 cm Weight: 138 lbs 10/16/2017 Blood Pressure 1: 142/88 Code: 8480-6 BMI: 25.5 Code: 22548-5 Heart Rate 1: 63 bpm Height: 5'1" SpO2: 97% Weight: 135 lbs 09/03/2017 Blood Pressure 1: 144/90 Code: 8480-6 BMI: 26.3 Code: 52590-1 Heart Rate 1: 91 bpm Height: 5'1" SpO2: 96% Weight: 139 lbs 07/31/2017 Blood Pressure 1: 136/90 Code: 8480-6 BMI: 26.3 Code: 84878-4 Height: 5'1" Weight: 139 lbs 07/18/2017 Blood Pressure 1: 136/84 Code: 8480-6 06/16/2017 Blood Pressure 1: 136/84 Code: 8480-6 BMI: 26.5 Code: 28612-2 Heart Rate 1: 72 bpm Height: 5'1" SpO2: 97% Weight: 140 lbs 05/28/2017 Blood Pressure 1: 138/78 Code: 8480-6 BMI: 26.1 Code: 87287-4 Heart Rate 1: 70 bpm Height: 5'1" SpO2: 98% Weight: 138 lbs 05/05/2017 Blood Pressure 1: 140/86 Code: 8480-6 BMI: 25.3 Code: 43767-2 Heart Rate 1: 66 bpm Height: 5'1" SpO2: 99% Weight: 134 lbs 03/13/2017 Blood Pressure 1: 126/74 Code: 8480-6 BMI: 25.3 Code: 93702-8 Heart Rate 1: 73 bpm Height: 5'1" SpO2: 98% Weight: 134 lbs 02/10/2017 Blood Pressure 1: 148/88 Code: 8480-6 BMI: 25.9 Code: 95584-3 Heart Rate 1: 84 bpm Height: 5'1" SpO2: 97% Weight: 137 lbs 01/14/2017 Blood Pressure 1: 134/86 Code: 8480-6 BMI: 25.7 Code: 76455-0 Heart Rate 1: 83 bpm Height: 5'1" SpO2: 95% Weight: 136 lbs 01/07/2017 Blood Pressure 1: 136/88 Code: 8480-6 BMI: 25.1 Code: 67208-4 Heart Rate 1: 86 bpm Height: 5'1" SpO2: 94% Weight: 133 lbs 01/02/2017 Blood Pressure 1: 122/68 Code: 8480-6 Blood Pressure 2: 116/78 Code: 8480-6 01/01/2017 Blood Pressure 1: 90/52 Code: 8480-6 BMI: 25.1 Code: 98298- 5 Heart Rate 1: 86 bpm Height: 5'1" SpO2: 99% Weight: 133 lbs 12/20/2016 Blood Pressure 1: 120/76 Code: 8480-6 12/12/2016 Blood Pressure 1: 130/72 Code: 8480-6 BMI: 24.8 Code: 83458-2 Heart Rate 1: 62 bpm Height: 5'1" SpO2: 98% Waist Measure (cm): 79 cm Weight: 131 lbs 12/11/2016 Blood Pressure 1: 132/70 Code: 8480-6 BMI: 24.8 Code: 55086-5 Heart Rate 1: 60 bpm Height: 5'1" Weight: 131 lbs 10/15/2016 Blood Pressure 1: 108/66 Code: 8480-6 BMI: 24.8 Code: 11123-5 Heart Rate 1: 60 bpm Height: 5'1" Weight: 131 lbs 07/17/2016 Blood Pressure 1: 128/82 Code: 8480-6 BMI: 25.3 Code: 64484-7 Heart Rate 1: 50 bpm Height: 5'2" Weight: 136 lbs 05/15/2016 Blood Pressure 1: 108/70 Code: 8480-6 BMI: 23.4 Code: 88895-9 Heart Rate 1: 54 bpm Height: 5'2" SpO2: 96% Weight: 126 lbs 04/23/2016 Blood Pressure 1: 112/60 Code: 8480-6 BMI: 23.6 Code: 25740-3 Heart Rate 1: 92 bpm Height: 5'2" SpO2: 95% Weight: 127 lbs 03/14/2016 Blood Pressure 1: 118/74 Code: 8480-6 BMI: 24.0 Code: 20847-4 Heart Rate 1: 51 bpm Height: 5'2" SpO2: 94% Temperature: 36.8 (C) / 98.3 (F) Weight: 129 lbs 02/19/2016 Blood Pressure 1: 110/62 Code: 8480-6 BMI: 23.4 Code: 65204-1 Heart Rate 1: 74 bpm Height: 5'2" SpO2: 97% Weight: 126 lbs 12/19/2015 Blood Pressure 1: 108/74 Code: 8480-6 BMI: 23.6 Code: 33561-0 Heart Rate 1: 52 bpm Height: 5'2" Weight: 127 lbs 03/06/2015 Blood Pressure 1: 136/88 Code: 8480-6 Heart Rate 1: 64 bpm Weight: 129 lbs 02/07/2015 Blood Pressure 1: 142/90 Code: 8480-6 BMI: 24.5 Code: 67143-0 Heart Rate 1: 82 bpm Height: 5'2" Weight: 132 lbs Functional Status No Functional Status data History of Present Illness Symptom Name Status Result Effective Date Notes Quality acute 09/15/2018 None Quality intermittent 09/15/2018 [...] data Encounters Encounter Performer Location Codes Date ([id number]) 59634 EST. PATIENT, LEVEL IV Diagnosis: Chest pain, unspecified[ICD10: R07.9] Diagnosis: Other vitamin B12 deficiency anemias[ICD10: D51.8] Diagnosis: Other allergic rhinitis[ICD10: J30.89] Mallorie Burden MD, [facility] CPT-4: 72669 09/15/2018 ([id number]) 92665 EST. PATIENT, LEVEL III Diagnosis: Essential (primary) hypertension[ICD10: I10] Diagnosis: Fecal urgency[ICD10: R15.2] Kim Burden MD, [facility] CPT-4: 56026 08/18/2018 ([id number]) 59793 EST. PATIENT, LEVEL IV Diagnosis: Other vitamin B12 deficiency anemias[ICD10: D51.8] Diagnosis: Essential (primary) hypertension[ICD10: I10] Diagnosis: Major depressive disorder, recurrent, mild[ICD10: F33.0] Diagnosis: Unsteadiness on feet[ICD10: R26.81] Kim Burden MD, [facility] CPT- 4: 13981 08/04/2018 ([id number]) 19289 EST. PATIENT, LEVEL IV Diagnosis: Fecal urgency[ICD10: R15.2] Diagnosis: Generalized abdominal pain[ICD10: R10.84] Diagnosis: Essential (primary) hypertension[ICD10: I10] iKm Burden MD, [facility] CPT-4: 48618 07/22/2018 ([id number]) 72239 EST. PATIENT, LEVEL IV Diagnosis: Essential (primary) hypertension[ICD10: I10] Diagnosis: Other emphysema[ICD10: J43.8] Diagnosis: Candidal stomatitis[ICD10: B37.0] Kim Burden MD, [facility] CPT- 4: 08814 04/21/2018 ([id number]) 44088 EST. PATIENT, LEVEL III Diagnosis: Chronic obstructive pulmonary disease with (acute) exacerbation[ICD10: J44.1] Mallorie Burden MD, [facility] CPT-4: 03559 04/09/2018 ([id number]) 01128 EST. PATIENT, LEVEL IV Diagnosis: Essential (primary) hypertension[ICD10: I10] Diagnosis: Other emphysema[ICD10: J43.8] Kim Burden MD, [facility] CPT-4: 74240 01/19/2018 ([id number]) 49650 EST. PATIENT, LEVEL IV Diagnosis: Essential (primary) hypertension[ICD10: I10] Diagnosis: Other emphysema[ICD10: J43.8] Diagnosis: Dependence on supplemental oxygen[ICD10: Z99.81] Diagnosis: Hypoxemia[ICD10: R09.02] Diagnosis: Pain in left knee[ICD10: M25.562] Diagnosis: Effusion, left knee[ICD10: M25.462] Kim Burden MD, [facility] CPT- 4: 68955 10/16/2017 56016 EST. PATIENT, LEVEL III Diagnosis: Pain in thoracic spine[ICD10: M54.6] Pebbles Burden MD, [facility] CPT- 4: 19026 09/03/2017 ([id number]) 98014 EST. PATIENT, LEVEL III Diagnosis: Essential (primary) hypertension[ICD10: I10] Diagnosis: Other emphysema[ICD10: J43.8] Kim Burden MD, [facility] CPT-4: 80005 07/31/2017 ([id number]) Miscellaneous no charge Diagnosis: Essential (primary) hypertension[ICD10: I10] Mallorie Burden MD, [facility] CPT-4: 87068 07/18/2017 ([id number]) 05255 EST. PATIENT, LEVEL III Diagnosis: Pain in left knee[ICD10: M25.562] Diagnosis: Effusion, left knee[ICD10: M25.462] Mallorie Burden MD, [facility] CPT-4: 39073 06/16/2017 ([id number]) 00358 EST. PATIENT, LEVEL III Diagnosis: Essential (primary) hypertension[ICD10: I10] Diagnosis: Unsteadiness on feet[ICD10: R26.81] Kim Burden MD, [facility] CPT- 4: 59119 05/28/2017 ([id number]) 79570 EST. PATIENT, LEVEL IV Diagnosis: Essential (primary) hypertension[ICD10: I10] Diagnosis: Chronic obstructive pulmonary disease with acute lower respiratory infection[ICD10: J44.0] Kim Burden MD, [facility] CPT-4: 49307 05/05/2017 ([id number]) 60293 EST. PATIENT, LEVEL IV Diagnosis: Essential (primary) hypertension[ICD10: I10] Diagnosis: Major depressive disorder, recurrent, mild[ICD10: F33.0] Kim Burden MD [facility] CPT-4: 56410 03/13/2017 ([id number]) 07336 EST. PATIENT, LEVEL IV Diagnosis: Essential (primary) hypertension[ICD10: I10] Diagnosis: Gastro-esophageal reflux disease without esophagitis[ICD10: K21.9] Diagnosis: Chronic obstructive pulmonary disease, unspecified[ICD10: J44.9] Kim Burden MD [facility] CPT-4: 87513 02/10/2017 ([id number]) 48566 EST. PATIENT, LEVEL IV Diagnosis: Essential (primary) hypertension[ICD10: I10] Diagnosis: Gastro-esophageal reflux disease without esophagitis[ICD10: K21.9] Diagnosis: Chronic obstructive pulmonary disease with acute lower respiratory infection[ICD10: J44.0] Kim Burden MD [facility] CPT-4: 34465 01/14/2017 37457 EST. PATIENT, LEVEL IV Diagnosis: Other fatigue[ICD10: R53.83] Diagnosis: Other malaise[ICD10: R53.81] Diagnosis: Headache[ICD10: R51] Diagnosis: Palpitations[ICD10: R00.2] Diagnosis: Dehydration[ICD10: E86.0] Pebbles Burden MD [facility] CPT-4: 59461 01/07/2017 ([id number]) Miscellaneous no charge Diagnosis: Essential (primary) hypertension[ICD10: I10] Pebbles Burden MD [facility] CPT-4: 38602 01/02/2017 59208 EST. PATIENT, LEVEL IV Diagnosis: Chronic obstructive pulmonary disease, unspecified[ICD10: J44.9] Diagnosis: Essential (primary) hypertension[ICD10: I10] Diagnosis: Other fatigue[ICD10: R53.83] Pebbles Burden MD, [facility] CPT-4: 46494 01/01/2017 ([id number]) Miscellaneous no charge Diagnosis: Essential (primary) hypertension[ICD10: I10] Pebbles Burden MD [facility] CPT-4: 07289 12/20/2016 ([id number]) 11609 EST. 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 PATIENT, LEVEL IV Diagnosis: Essential (primary) hypertension[ICD10: I10] Diagnosis: Other allergic rhinitis[ICD10: J30.89] Diagnosis: Gastro-esophageal reflux disease without esophagitis[ICD10: K21.9] Kim Burden MD, [facility] CPT-4: 34921 10/15/2016 ([id number]) 46118 EST. PATIENT, LEVEL III Diagnosis: Essential (primary) hypertension[ICD10: I10] Diagnosis: Major depressive disorder, recurrent, mild[ICD10: F33.0] Kim Burden MD, [facility] CPT-4: 76780 07/17/2016 ([id number]) 05123 EST. PATIENT, LEVEL III Diagnosis: Pain in left hip[ICD10: M25.552] Diagnosis: Acute laryngopharyngitis[ICD10: J06.0] Kim Burden MD, [facility] CPT-4: 71313 05/15/2016 ([id number]) 06309 EST. PATIENT, LEVEL III Diagnosis: Fracture of unspecified parts of lumbosacral spine and pelvis, initial encounter for closed fracture[ICD10: S32.9XXA] Diagnosis: Essential (primary) hypertension[ICD10: I10] Kim Burden MD, [facility] CPT-4: 45075 04/23/2016 65166 EST. PATIENT, LEVEL IV Diagnosis: Acute laryngopharyngitis[ICD10: J06.0] Diagnosis: Other allergic rhinitis[ICD10: J30.89] Pebbles Burden MD, [facility] CPT- 4: 83678 03/14/2016 69567 EST. PATIENT, LEVEL IV Diagnosis: Dysuria[ICD10: R30.0] Diagnosis: Left lower quadrant pain[ICD10: R10.32] Pebbles Burden MD, [facility] CPT-4: 04526 02/19/2016 ([id number] 24647 EST. PATIENT, LEVEL IV Diagnosis: Essential (primary) hypertension[ICD10: I10] Diagnosis: Gastro-esophageal reflux disease without esophagitis[ICD10: K21.9] Diagnosis: Major depressive disorder, recurrent, mild[ICD10: F33.0] Kim Burden MD, [facility] CPT-4: 81355 12/19/2015 ([id number] 62380 EST. PATIENT, LEVEL IV Diagnosis: ESSENTIAL HYPERTENSION[ICD9: 401.9] Diagnosis: ACUTE URI[ICD9: 465.9] Kim Burden MD, [facility] CPT-4: 18726 03/06/2015 ([id number]) OFFICE VISIT, NEW - LEVEL 4 Diagnosis: ESOPHAGEAL REFLUX[ICD9: 530.81] Diagnosis: ESSENTIAL HYPERTENSION[ICD9: 401.9] Diagnosis: COPD (chronic obstructive pulmonary disease)[ICD9: 496] Diagnosis: ALLERGIC RHINITIS[ICD9: 477.9] Mallorie Burden MD, [facility] CPT-4: 10280 02/07/2015 Plan of Care Planned Activity Notes [...] the office 09/15/2018 Appointment: Mallorie Wetzel WPtel: [phone] ([facility] 09/15/2018 Patient Education: Patient Medication Summary Completed 09/15/2018 Care Plan: Referral Order SNOMED-CT : [id number] Pending 09/15/2018 Appointment: [phone] (15 min) Moderate 08/25/2018 Visit Plan: Hypertension [...] day. 08/18/2018 Appointment: [phone] (15 min) Moderate 08/18/2018 Patient Education: Patient [...] anxiolytic. 08/04/2018 Appointment: [phone] (15 min) Moderate 08/04/2018 Appointment: Nurse Visit [...] at home. 07/22/2018 Appointment: Kim Bur[phone] [facility] [place] (15 min) Moderate 07/22/2018 Patient Education: [...] swallow. 04/21/2018 Appointment: Kim [phone] (15 min) Moderate 04/21/2018 Patient Education: Patient [...] changes. 04/09/2018 Appointment: [phone] [phone] (30 min) Complex 04/09/2018 Patient Education: Patient [...] changes. 01/19/2018 Appointment: [phone] (15 min) Moderate 01/19/2018 Patient Education: Patient Medication Summary Completed 01/19/2018 Appointment: [phone] (15 min) Moderate 01/14/2018 Visit Plan: Medicare [...] surrogate. 12/18/2017 Appointment: Pebbles Lund [phone] [facility] [facility] - Annual Wellness Visit 12/18/2017 [...] home. 10/16/2017 Appointment: Kim Burden WPtel: [phone] [facility] (15 min) Moderate 10/16/2017 Patient Education: Patient [...] concerns. 09/03/2017 Appointment: Pebbles Lund [phone] (15 min) Moderate 09/03/2017 Patient Education: Patient Medication Summary Completed 09/03/2017 Appointment: Kim Burden WPtel: [facility][note 3]5 [facility] (15 min) Moderate 08/11/2017 Appointment: Kim Burden WPtel: [facility][note 3]5 [facility] (15 min) Moderate 08/11/2017 Patient [...] current treatment. 07/31/2017 Appointment: Kim Burden WPtel: [facility]note 3][facility] (15 min) Moderate 07/31/2017 Patient Education: Patient Medication Summary Completed 07/31/2017 Appointment: Nurse Visit 07/18/2017 Patient Education: Patient Medication Summary Completed 07/18/2017 Patient Education: Patient Medication Summary Completed 07/18/2017 Appointment: Kim Burden WPtel: [facility][note 3]5 [facility] [place] (15 min) Moderate 06/30/2017 Visit Plan: Effusion left knee-fall 2 weeks ago-recommend compression of joint and refer to Ortho for evaluation and treatment-will refer to Dr Pryor/Quinton Mccormick. Patient verbalized understanding of plan. 06/16/2017 Appointment: Mallorie Wetzel WPtel: [phone] [phone] [place] (30 min) Complex 06/16/2017 Patient [...] when active. 05/28/2017 Appointment: Kim Burden WPtel: [facility]note 3]5 [facility] [place] (15 min) Moderate 05/28/2017 Patient Education: [...] changes. 05/05/2017 Appointment: Kim Bur[facility]el[phone] [facility] (15 min) Moderate 05/05/2017 Patient Education: Patient [...] medications. 03/13/2017 Appointment: Kim Burden WPtel: [phone] [facility] (15 min) Moderate 03/13/2017 Patient Education: Patient [...] symptoms worsening. 02/10/2017 Appointment: [phone] (15 min) Moderate 02/10/2017 Patient Education: Patient [...] improving. 01/14/2017 Appointment: Kim Burden WPtel: [phone] [facility] [place] (15 min) Moderate 01/14/2017 Patient Education: [...] concerns. 01/07/2017 Appointment: Pebbles Lund WPtel: [phone] [facility] [place] (30 min) Complex 01/07/2017 Patient Education: [...] pressures. 01/01/2017 Appointment: Pebbles Lund [phone] [place] (30 min) Complex 01/01/2017 Patient Education: [...] surrogate. 12/12/2016 Appointment: Pebbles Lund [phone] [facility] [facility] - Annual Wellness Visit 12/12/2016 [...] this time. 12/11/2016 Appointment: Kim Burden WPtel: [facility][note 3]7 [facility] (15 min) Moderate 12/11/2016 Patient Education: Patient Medication Summary Completed 12/11/2016 Appointment: [phone] [phone] (30 min) Complex 12/10/2016 Visit Plan: [...] improving. 10/15/2016 Appointment: Kim [phone] (15 min) Moderate 10/15/2016 Patient Education: Patient [...] restaurant. 07/17/2016 Appointment: Kim Burden WPtel: [phone] [facility] (15 min) Moderate 07/17/2016 Patient Education: Patient Medication Summary Completed 07/17/2016 Appointment: Kim Burden WPtel: [phone] [facility] (15 min) Moderate 06/10/2016 Visit Plan: Hip pain - persistent but improving - continue with current treatment plan. Pt to call if her symptoms are not improving or if her hip pain worsens. URI symptoms - supportive care, use otc allergy medications. 05/15/2016 Appointment: Kim Burden WPtel: [facility][note 3]7 [facility] (15 min) Moderate 05/15/2016 Patient [...] not improving. 04/23/2016 Appointment: Kim Burden WPtel: [phone] [facility] [place] (15 min) Moderate 04/23/2016 Patient Education: Patient Medication Summary Completed 04/23/2016 Patient Education: Hypertension Completed 04/23/2016 Care Plan: X-RAY EXAM OF ABDOMEN LOINC : 10603-6 Pending 03/18/2016 Visit Plan: URI - Pt [...] spray. 03/14/2016 Appointment: Pebbles Lund WPtel: [phone] [facility] (30 min) Complex 03/14/2016 Patient [...] concerns. 02/19/2016 Appointment: Pebbles Lund WPtel: [phone] [facility] (30 min) Complex 02/19/2016 Patient Education: Patient Medication Summary Completed 02/19/2016 Appointment: Kim Burden WPtel: [phone] [facility] (15 min) Moderate 01/22/2016 Visit [...] not improving. 12/19/2015 Appointment: [facility]el: [phone] (15 min) Moderate 12/19/2015 Patient Education: Patient [...] RX. 03/06/2015 Appointment: Kim Bur[facility]el[phone] Follow up 03/06/2015 Patient Education: Patient Medication [...] Completed 02/07/2015 Care Plan: SCREENINGMAMMOGRAPHYDIGITAL LOINC : 84152-6 Ordered 02/07/2015 Care Plan: COMPLETE CBC AUTOMATED LOINC : 74041-7 Ordered 02/07/2015 Referral: Consuelo Chavez Referral Appointment [...] to help decrease GI upset./loose stools - [employer] [facility] [employer] [address] . Hypertension - well controlled - continue [...] care surrogate. TAKE WITH [employer] ([employer] OR [email or web address]) . URI - Pt advised to increase [...] use oxygen, and call if symptoms worsening. Restart breo kenalog injection today -start oral [...]
--- OUTSIDE RECORDS SUMMARY | 2019-04-06 09:12 | XMS REPORT | CCD ---
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 Marital status Unknown 02/07/2015 Number of children Unknown 3 02/07/[address]: 9745286 Quit over 10 years ago 199302/07/2015 Number [...] (vit B-12) 1,000 mcg/mL injection solution RxNorm: 635650 1 Milliliter(s) Inj 10/01/2018 10/01/2018 Inactive ibuprofen 800 mg tablet RxNorm: 730796 TAKE 1 TABLET THREE TIMES DAILY 09/28/2018 12/21/2019 Active cyanocobalamin (vit B-12) 1,000 mcg/mL injection solution RxNorm: 790075 1 Milliliter(s) Inj 09/15/2018 09/15/2018 Inactive Kenalog 40 mg/mL suspension for injection RxNorm: 7067316 Milliliter(s) Inj 09/15/2018 09/15/2018 Inactive alprazolam 1 mg tablet RxNorm: 774646 1/2 Tablet(s) PO TID 08/10/2018 05/06/2019 Active cyanocobalamin (vit B-12) 1,000 mcg/mL injection solution RxNorm: 233611 Milliliter(s) Inj 08/04/2018 08/04/2018 Inactive alprazolam 1 mg tablet RxNorm: 423546 1/2 Tablet(s) PO BID 08/04/2018 08/09/2018 Inactive cholestyramine (with sugar) 4 gram powder for susp in a packet RxNorm: 654441 1/2 to 1 packet PO TID take 30 minutes before meals 07/22/2018 07/16/2019 Active cyanocobalamin (vit B-12) 1,000 mcg/mL injection solution RxNorm: 109258 1 Milliliter(s) Inj 07/16/2018 07/16/2018 Inactive omeprazole 20 mg capsule,delayed release RxNorm: 521525 Capsule(s) TAKE 1 CAPSULE TWICE DAILY 07/01/2018 06/25/2019 Active cyanocobalamin (vit B-12) 1,000 mcg/mL injection solution RxNorm: 694470 Milliliter(s) Inj 07/01/2018 07/01/2018 Inactive omeprazole 20 mg capsule,delayed release RxNorm: 559359 TAKE 1 CAPSULE TWICE DAILY 07/01/2018 06/30/2018 Inactive alprazolam 1 mg tablet RxNorm: 251000 1 Tablet(s) PO TID 07/01/2018 08/03/2018 Inactive cyanocobalamin (vit B-12) 1,000 mcg/mL injection solution RxNorm: 903724 Milliliter(s) Inj 06/15/2018 06/15/2018 Inactive cyanocobalamin (vit B-12) 1,000 mcg/mL injection solution RxNorm: 851418 Milliliter(s) Inj 06/02/2018 06/02/2018 Inactive fluticasone 50 mcg/actuation nasal spray,suspension RxNorm: 8896834 1 [place] NASAL BID 05/26/2018 05/20/2019 Active Vitamin B-12 1,000 mcg/mL injection solution RxNorm: 158234 1 Milliliter(s) Inj Q2 weeks x2 months and then monthly injections 05/21/2018 No Stop Date Active cyanocobalamin (vit B-12) 1,000 mcg/mL injection solution RxNorm: 131564 Milliliter(s) Inj 05/21/2018 05/21/2018 Inactive fluticasone 50 mcg/actuation nasal spray,suspension RxNorm: 0768290 1 [place] NASAL BID 05/19/2018 05/25/2018 Inactive fluticasone 50 mcg/actuation nasal spray,suspension RxNorm: 5337263 1 [place] NASAL BID 05/18/2018 05/18/2018 Inactive fluticasone 50 mcg/actuation nasal spray,suspension RxNorm: 3793931 1 [place] NASAL BID 05/15/2018 05/17/2018 Inactive fluticasone 50 mcg/actuation nasal spray,suspension RxNorm: 6195489 1 [place] NASAL BID 05/15/2018 05/14/2018 Inactive nystatin 100,000 unit/mL oral suspension RxNorm: 191847 5 Milliliter(s) PO QID 04/21/2018 04/30/2018 Inactive Breo Ellipta 100 mcg-25 mcg/dose powder for inhalation RxNorm: 6733346 1 INH daily 04/09/2018 04/03/2019 Active please call patient with jaramillo before sending prednisone 20 mg tablet RxNorm: 905385 1 Tablet(s) PO BID 04/09/2018 04/13/2018 Inactive start tomorrow Kenalog 40 mg/mL suspension for injection RxNorm: 5450895 1.5 Milliliter(s) Inj 04/09/2018 04/09/2018 Inactive Breo Ellipta 100 mcg-25 mcg/dose powder for inhalation RxNorm: 4216992 1 INH daily 04/09/2018 04/08/2018 Inactive alprazolam 1 mg tablet RxNorm: 487634 1 Tablet(s) PO TID 03/13/2018 06/30/2018 Inactive losartan 100 mg tablet RxNorm: 913423 TAKE 1 TABLET EVERY EVENING 03/02/2018 02/13/2021 Active Ventolin HFA 90 mcg/actuation aerosol inhaler RxNorm: 333441 2 INH Q4-6H as needed 12/29/2017 02/26/2018 Inactive Ventolin HFA 90 mcg/actuation aerosol inhaler RxNorm: 685955 2 INH Q4-6H as needed 12/29/2017 12/28/2017 Inactive Diflucan 150 mg tablet RxNorm: 238873 1 Tablet(s) PO daily 11/03/2017 11/05/2017 Inactive please call pt to let herknow when to pick- up the med Keflex 500 mg capsule RxNorm: 959512 1 Capsule(s) PO TID 10/23/2017 10/29/2017 Inactive Kenalog 40 mg/mL suspension for injection RxNorm: 5981396 1 Milliliter(s) Inj 10/16/2017 10/16/2017 Inactive Lexapro 10 mg tablet RxNorm: 282823 TAKE 1 TABLET EVERY DAY 10/15/2017 10/09/2018 Active ibuprofen 800 mg tablet RxNorm: 216870 TAKE 1 TABLET THREE TIMES DAILY 10/15/2017 09/27/2018 Inactive hydrocodone 5 mg-acetaminophen 325 mg tablet RxNorm: 528547 1 Tablet(s) PO QID as needed 09/03/2017 07/21/2018 Inactive omeprazole 20 mg capsule,delayed release RxNorm: 146176 1 Capsule(s) PO BID 09/02/2017 06/30/2018 Inactive alprazolam 1 mg tablet RxNorm: 459383 1 Tablet(s) PO TID 09/02/2017 03/12/2018 Inactive metoprolol tartrate 50 mg tablet RxNorm: 684971 1/2 Tablet(s) PO BID 06/26/2017 06/20/2018 Inactive omeprazole 20 mg capsule,delayed release RxNorm: 429269 1 Capsule(s) PO BID 06/05/2017 09/01/2017 Inactive omeprazole 20 mg capsule,delayed release RxNorm: 213257 1 Capsule(s) PO BID 05/28/2017 06/04/2017 Inactive omeprazole 20 mg capsule,delayed release RxNorm: 989197 1 Capsule(s) PO QPM 05/27/2017 05/27/2017 Inactive Breo Ellipta 100 mcg-25 mcg/dose powder for inhalation RxNorm: 9792180 1 INH daily 05/05/2017 04/08/2018 Inactive alprazolam 1 mg tablet RxNorm: 914218 1 Tablet(s) PO TID 02/10/2017 08/07/2017 Inactive metoprolol tartrate 50 mg tablet RxNorm: 111731 1/2 Tablet(s) PO BID 02/10/2017 06/25/2017 Inactive losartan 100 mg tablet RxNorm: 444951 1 Tablet(s) PO QPM 02/10/2017 02/04/2018 Inactive losartan 50 mg tablet RxNorm: 205161 2 Tablet(s) PO QPM 01/23/2017 02/09/2017 Inactive Diflucan 150 mg tablet RxNorm: 875968 1 Tablet(s) PO daily 01/20/2017 01/22/2017 Inactive please call pt to let herknow when to pick- up the med Diflucan 150 mg tablet RxNorm: 451509 1 Tablet(s) PO daily 01/20/2017 01/19/2017 Inactive please call pt to let herknow when to pick- up the med losartan 50 mg tablet RxNorm: 559479 1 Tablet(s) PO QPM 01/14/2017 01/22/2017 Inactive Cipro 500 mg tablet RxNorm: 701990 1 Tablet(s) PO BID 01/08/2017 01/17/2017 Inactive Cipro 500 mg tablet RxNorm: 987011 1 Tablet(s) PO BID 01/08/2017 01/07/2017 Inactive Lexapro 10 mg tablet RxNorm: 122349 TAKE 1 TABLET EVERY DAY 12/20/2016 10/14/2017 Inactive metoprolol tartrate 50 mg tablet RxNorm: 387073 1 Tablet(s) PO in the morning and 1.5 pill at night 12/11/2016 01/13/2017 Inactive spironolactone 25 mg tablet RxNorm: 005220 TAKE 1 TABLET EVERY DAY 11/04/2016 07/21/2018 Inactive metoprolol tartrate 50 mg tablet RxNorm: 042404 TAKE 1 TABLET TWICE DAILY 10/29/2016 12/10/2016 Inactive ibuprofen 800 mg tablet RxNorm: 898609 TAKE 1 TABLET THREE TIMES DAILY 10/21/2016 10/14/2017 Inactive Astepro 0.15 % (205.5 mcg) nasal spray RxNorm: 9054568 1 [place] NASAL BID 10/15/2016 10/14/2016 Inactive Astepro 0.15 % (205.5 mcg) nasal spray RxNorm: 5088992 1 [place] NASAL BID 10/15/2016 07/21/2018 Inactive Astepro 0.15 % (205.5 mcg) nasal spray RxNorm: 5456201 1 [place] NASAL BID 10/15/2016 10/14/2016 Inactive omeprazole 20 mg capsule,delayed release RxNorm: 296923 1 Capsule(s) PO QPM 10/15/2016 05/26/2017 Inactive omeprazole 20 mg capsule,delayed release RxNorm: 551944 1 Capsule(s) QPM 10/15/2016 10/14/2016 Inactive omeprazole 20 mg capsule,delayed release RxNorm: 574438 TAKE 1 CAPSULE TWICE DAILY 09/02/2016 10/14/2016 Inactive Lexapro 10 mg tablet RxNorm: 010536 TAKE 1 TABLET EVERY DAY 08/21/2016 12/19/2016 Inactive calcitonin (salmon) 200 unit/actuation nasal spray RxNorm: 069575 1 [place] NASAL daily ONE SPRAY PER ONE NOSTRIL DAILY- ALTERNATE NOSTRILS DAILY 05/31/2016 05/30/2016 Inactive She will do this for 3 months- If she wants to do a 3 month supply at one time she can without refill calcitonin (salmon) 200 unit/actuation nasal spray RxNorm: 317060 1 [place] NASAL daily ONE SPRAY PER ONE NOSTRIL DAILY- ALTERNATE NOSTRILS DAILY 05/31/2016 07/30/2016 Inactive x3 months- no refills Forteo 20 mcg/dose (600 mcg/2.4 mL) subcutaneous pen injector RxNorm: 6155502 1 injection SQ daily 05/22/2016 05/30/2016 Inactive call pt with jaramillo first Forteo 20 mcg/dose (600 mcg/2.4 mL) subcutaneous pen injector RxNorm: 0089071 1 injection SQ daily 05/22/2016 05/21/2016 Inactive Prolia 60 mg/mL subcutaneous syringe RxNorm: 245897 1 Milliliter(s) SQ every 6 months 05/13/2016 07/21/2018 Inactive Please check jaramillo through insurance and let me know- Thanks! Mary Ellen alprazolam 1 mg tablet RxNorm: 020980 1 Tablet(s) PO TID 05/08/2016 11/01/2016 Inactive Lexapro 10 mg tablet RxNorm: 833978 TAKE 1 TABLET EVERY DAY 04/22/2016 08/20/2016 Inactive spironolactone 25 mg tablet RxNorm: 079957 TAKE 1 TABLET EVERY DAY 04/22/2016 11/03/2016 Inactive Diflucan 150 mg tablet RxNorm: 628839 1 Tablet(s) PO daily 03/20/2016 04/14/2016 Inactive Diflucan 150 mg tablet RxNorm: 718096 1 Tablet(s) PO daily 03/20/2016 03/19/2016 Inactive Augmentin 500 mg-125 mg tablet RxNorm: 186340 1 Tablet(s) PO TID 03/14/2016 03/23/2016 Inactive omeprazole 20 mg capsule,delayed release RxNorm: 824308 1 Tablet(s) PO BID 03/06/2016 09/01/2016 Inactive [SAVINGS FOR NON-COVERED DRUGS -- BIN:469461, PCN: ASPROD1, Group: XXXXX, ID# XXXXXXX, Questions: . THIS IS NOT INSURANCE.] amlodipine 5 mg tablet RxNorm: 087002 TAKE 1 TABLET EVERY DAY 03/01/2016 04/22/2016 Inactive omeprazole 20 mg tablet,delayed release RxNorm: 205778 1 Tablet(s) PO BID 02/27/2016 03/05/2016 Inactive [SAVINGS FOR NON-COVERED DRUGS -- BIN:805955, PCN: ASPROD1, Group: XXXXX, ID# XXXXXXX, Questions: . THIS IS NOT INSURANCE.] spironolactone 25 mg tablet RxNorm: 742635 TAKE 1 TABLET EVERY DAY 12/21/2015 04/21/2016 Inactive Lexapro 10 mg tablet RxNorm: 837625 1 Tablet(s) PO daily 12/19/2015 01/01/2016 Inactive Lexapro 10 mg tablet RxNorm: 716645 1 Tablet(s) PO daily 12/19/2015 02/09/2017 Inactive Lexapro 10 mg tablet RxNorm: 970385 1 Tablet(s) PO daily 12/19/2015 12/18/2015 Inactive alprazolam 1 mg tablet RxNorm: 590059 1 Tablet(s) PO TID 12/01/2015 02/28/2016 Inactive ibuprofen 800 mg tablet RxNorm: 130429 1 Tablet(s) PO TID 10/26/2015 10/20/2016 Inactive alprazolam 1 mg tablet RxNorm: 776341 1 Tablet(s) PO TID 08/23/2015 07/21/2018 Inactive spironolactone 25 mg tablet RxNorm: 346527 1 Tablet(s) PO daily 08/21/2015 12/20/2015 Inactive metoprolol tartrate 50 mg tablet RxNorm: 902742 1 Tablet(s) PO BID 08/10/2015 08/03/2016 Inactive [SAVINGS FOR NON-COVERED DRUGS -- BIN:132444, PCN: ASPROD1, Group: XXXXX, ID# XXXXXXX, Questions: . THIS IS NOT INSURANCE.] omeprazole 20 mg tablet,delayed release RxNorm: 055715 1 Tablet(s) PO BID 08/07/2015 02/02/2016 Inactive [SAVINGS FOR NON-COVERED DRUGS -- BIN:138233, PCN: ASPROD1, Group: XXXXX, ID# XXXXXXX, Questions: . THIS IS NOT INSURANCE.] Keflex 500 mg capsule RxNorm: 028206 1 Capsule(s) PO TID 07/10/2015 07/16/2015 Inactive alprazolam 1 mg tablet RxNorm: 295185 1 Tablet(s) PO TID 06/02/2015 08/22/2015 Inactive alprazolam 1 mg tablet RxNorm: 498136 1 Tablet(s) PO TID 03/29/2015 06/01/2015 Inactive amlodipine 5 mg tablet RxNorm: 783016 1 Tablet(s) PO daily 03/06/2015 02/29/2016 Inactive Nasonex 50 mcg/actuation [place] RxNorm: 679367 1 [place] NASAL daily 03/03/2015 03/02/2015 Inactive Keflex 500 mg capsule RxNorm: 226825 1 Capsule(s) PO TID 03/03/2015 03/02/2015 Inactive Nasonex 50 mcg/actuation [place] RxNorm: 440237 1 [place] NASAL daily 03/03/2015 05/01/2015 Inactive Keflex 500 mg capsule RxNorm: 468814 1 Capsule(s) PO TID 03/03/2015 03/05/2015 Inactive Carafate 1 gram tablet RxNorm: 467322 TAKE 1 TABLET FOUR TIMES DAILY 30 MINUTES BEFORE MEALS AND AT BEDTIME 02/28/2015 12/18/2015 Inactive Kenalog 40 mg/mL suspension for injection RxNorm: 8832963 Milliliter(s) Inj 02/07/2015 02/07/2015 Inactive [SAVINGS FOR NON-COVERED DRUGS -- BIN:100786, PCN: ASPROD1, Group: XXXXX, ID# XXXXXXX, Questions: . THIS IS NOT INSURANCE.] metoprolol tartrate 50 mg tablet RxNorm: 885329 1 Tablet(s) PO BID 02/07/2015 08/09/2015 Inactive [SAVINGS FOR NON-COVERED DRUGS -- BIN:551712, PCN: ASPROD1, Group: XXXXX, ID# XXXXXXX, Questions: . THIS IS NOT INSURANCE.] Carafate 1 gram tablet RxNorm: 494843 1 Tablet(s) PO QID 02/07/2015 02/27/2015 Inactive 30 min before meals and at bedtime omeprazole 20 mg tablet,delayed release RxNorm: 588902 1 Tablet(s) PO BID 02/07/2015 08/05/2015 Inactive [SAVINGS FOR NON-COVERED DRUGS -- BIN:668569, PCN: ASPROD1, Group: XXXXX, ID# XXXXXXX, Questions: . THIS IS NOT INSURANCE.] Vitamin D3 2,000 unit tablet RxNorm: 529469 1 Tablet(s) PO daily No Start Date Active aspirin 81 mg tablet RxNorm: 206280 1 Tablet(s) PO daily No Start Date Active amlodipine 2.5 mg tablet RxNorm: 000094 1 Tablet(s) PO daily No Start Date 03/05/2015 Inactive spironolactone 25 mg tablet RxNorm: 529531 1 Tablet(s) PO daily No Start Date 08/20/2015 Inactive cetirizine 10 mg tablet RxNorm: 1189040 1 Tablet(s) PO daily No Start Date 12/18/2015 Inactive metoprolol tartrate 50 mg tablet RxNorm: 676427 1 Tablet(s) PO daily No Start Date 02/06/2015 Inactive ipratropium bromide 0.06 % nasal spray RxNorm: 481938 nasal No Start Date 12/18/2015 Inactive alprazolam 1 mg tablet RxNorm: 646096 1 Tablet(s) PO TID No Start Date 03/28/2015 Inactive Prolia 60 mg/mL subcutaneous syringe RxNorm: 301689 1 Milliliter(s) SQ every 6 months No Start Date 05/12/2016 Inactive Please check jaramillo through insurance and let me know- Thanks! Mary Ellen ibuprofen 800 mg tablet RxNorm: 988150 1 Tablet(s) PO TID No Start Date 10/25/2015 Inactive Protonix 40 mg tablet,delayed release RxNorm: 460821 1 Tablet(s) PO daily No Start Date 03/05/2015 Inactive Vitamin B-12 1,000 mcg/mL injection solution RxNorm: 273027 1 Milliliter(s) Inj Q2 weeks x2 months and then monthly injections No Start Date 05/20/2018 Inactive loratadine 10 mg tablet RxNorm: 790541 1 Tablet(s) PO daily No Start Date 07/21/2018 Inactive Medication Administered Medication Codes Instructions Start Date Status cyanocobalamin (vit B-12) 1,000 mcg/mL injection solution RxNorm: 307501 1Milliliter 10/01/2018 Active Kenalog 40 mg/mL suspension for injection RxNorm: 3514597 Milliliter 09/15/2018 No longer Active cyanocobalamin (vit B-12) 1,000 mcg/mL injection solution RxNorm: 504581 1Milliliter 09/15/2018 No longer Active cyanocobalamin (vit B-12) 1,000 mcg/mL injection solution RxNorm: 959260 Milliliter 08/04/2018 No longer Active cyanocobalamin (vit B-12) 1,000 mcg/mL injection solution RxNorm: 047461 1Milliliter 07/16/2018 No longer Active cyanocobalamin (vit B-12) 1,000 mcg/mL injection solution RxNorm: 931421 Milliliter 07/01/2018 No longer Active cyanocobalamin (vit B-12) 1,000 mcg/mL injection solution RxNorm: 927287 Milliliter 06/15/2018 No longer Active cyanocobalamin (vit B-12) 1,000 mcg/mL injection solution RxNorm: 690200 Milliliter 06/02/2018 No longer Active cyanocobalamin (vit B-12) 1,000 mcg/mL injection solution RxNorm: 306634 Milliliter 05/21/2018 No longer Active Kenalog 40 mg/mL suspension for injection RxNorm: 3089321 1.5Milliliter 04/09/2018 No longer Active Kenalog 40 mg/mL suspension for injection RxNorm: 2302798 1Milliliter 10/16/2017 No longer Active Kenalog 40 mg/mL suspension for injection RxNorm: 6908003 Milliliter 02/07/2015 No longer Active Immunizations Vaccine [...] Item Item Code Result Date Comp Metabolic Xkm954 NA 138 mEq/L 09/03/2017 Comp Metabolic Oqq129 K 3.9 mEq/L 09/03/2017 Comp Metabolic Zzo838 CL 102 mEq/L 09/03/2017 Comp Metabolic Lsk381 CO2 32.0 mEq/L 09/03/2017 Comp Metabolic Rdl637 ANION GAP 8 09/03/2017 Comp Metabolic Bfh148 GLUCOSE 89 mg/dL 09/03/2017 Comp Metabolic Xty182 Creat 0.6 mg/dL 09/03/2017 Comp Metabolic Pfj228 eGFR 103 ml/min/1.73m2 09/03/2017 Comp Metabolic Kqb780 BUN 10 mg/dL 09/03/2017 Comp Metabolic Qsl300 B/C Ratio 16.7 Ratio 09/03/2017 Comp Metabolic Nmn418 CALCIUM 8.9 mg/dL 09/03/2017 Comp Metabolic Rlj971 ALK PHOS 141 U/L 09/03/2017 Comp Metabolic Ikh556 AST(SGOT) 12 U/L 09/03/2017 Comp Metabolic Gyn847 ALT(SGPT) 7 U/L 09/03/2017 Comp Metabolic Zbx503 BILI T 0.6 mg/dL 09/03/2017 Comp Metabolic Meo424 ALBUMIN 3.6 g/dL 09/03/2017 Comp Metabolic Vti480 TPRO 6.6 g/dL 09/03/2017 Comp Metabolic Vhx062 GLOB 3.0 g/dL 09/03/2017 Comp Metabolic Frc748 A/G Ratio 1.2 Ratio 09/03/2017 Comp Metabolic Own403 Osmo 274 mOsmo 09/03/2017 Hepatic Crv405 ALBUMIN 3.7 g/dL 08/11/2017 Hepatic Vdx928 TPRO 7.0 g/dL 08/11/2017 Hepatic Hcd196 GLOB 3.3 g/dL 08/11/2017 Hepatic Kzd422 A/G Ratio 1.1 Ratio 08/11/2017 Hepatic Qkz402 ALK PHOS 85 U/L 08/11/2017 Hepatic Lnh952 ALT(SGPT) 11 U/L 08/11/2017 Hepatic Yng928 AST(SGOT) 16 U/L 08/11/2017 Hepatic Sxt806 BILI T 0.6 mg/dL 08/11/2017 Hepatic Xlz547 BILI D 0.1 mg/dL 08/11/2017 Hepatic Lyo231 BILI I 0.5 mg/dL 08/11/2017 Hepatic Aeb920 ALBUMIN 3.1 g/dL 07/18/2017 Hepatic Zsb240 TPRO 5.9 g/dL 07/18/2017 Hepatic Bls959 GLOB 2.8 g/dL 07/18/2017 Hepatic Ozr661 A/G Ratio 1.1 Ratio 07/18/2017 Hepatic Fib255 ALK PHOS 123 U/L 07/18/2017 Hepatic Cdu896 ALT(SGPT) 210 U/L 07/18/2017 Hepatic Pkw717 AST(SGOT) 71 U/L 07/18/2017 Hepatic Ytg995 BILI T 1.1 mg/dL 07/18/2017 Hepatic Xgd812 BILI D 0.4 mg/dL 07/18/2017 Hepatic Drx032 BILI I 0.7 mg/dL 07/18/2017 Cbc With [...] 32.4 pg 02/25/2017 Cbc With Differential Ord2 [place]% 7.6 % 02/25/2017 Cbc With Differential Ord2 [...] 1.22 K/ul 02/25/2017 Cbc With Differential Ord2 [place] ABS# 0.4 K/ul 02/25/2017 Cbc With Differential [...] 32.3 pg 01/02/2017 Cbc With Differential Ord2 [place]% 7.8 % 01/02/2017 Cbc With Differential Ord2 [...] 0.90 K/ul 01/02/2017 Cbc With Differential Ord2 [place] ABS# 0.4 K/ul 01/02/2017 Cbc With Differential Ord2 Eos ABS# 0.3 K/ul 01/02/2017 Cbc With Differential Ord2 Baso ABS# 0.0 K/ul 01/02/2017 Lipid Ord30 CHOL 139 mg/dL 12/13/2016 Lipid Ord30 HDL 48.0 mg/dl 12/13/2016 Lipid Ord30 TRIG 84 mg/dL 12/13/2016 Lipid Ord30 LDL 74 mg/dL 12/13/2016 Lipid Ord30 C/HDL 2.9 Ratio 12/13/2016 Comp Metabolic Igz210 NA 137 mEq/L 12/13/2016 Comp Metabolic Mea903 K 4.8 mEq/L 12/13/2016 Comp Metabolic Kyj909 CL 101 mEq/L 12/13/2016 Comp Metabolic Dyx622 CO2 32.0 mEq/L 12/13/2016 Comp Metabolic Gwv056 ANION GAP 9 12/13/2016 Comp Metabolic Uxv351 GLUCOSE 95 mg/dL 12/13/2016 Comp Metabolic Iea253 Creat 0.8 mg/dL 12/13/2016 Comp Metabolic Nlt709 eGFR 79 ml/min/1.73m2 12/13/2016 Comp Metabolic Wnr886 BUN 15 mg/dL 12/13/2016 Comp Metabolic Ujo668 B/C Ratio 19.7 Ratio 12/13/2016 Comp Metabolic Xxq198 CALCIUM 9.3 mg/dL 12/13/2016 Comp Metabolic Vgw939 ALK PHOS 63 U/L 12/13/2016 Comp Metabolic Bqv622 AST(SGOT) 15 U/L 12/13/2016 Comp Metabolic Jix846 ALT(SGPT) 10 U/L 12/13/2016 Comp Metabolic Fiu017 BILI T 0.7 mg/dL 12/13/2016 Comp Metabolic Xyw453 ALBUMIN 3.7 g/dL 12/13/2016 Comp Metabolic Erf778 TPRO 6.8 g/dL 12/13/2016 Comp Metabolic Iki232 GLOB 3.2 g/dL 12/13/2016 Comp Metabolic Mxm892 A/G Ratio 1.2 Ratio 12/13/2016 Comp Metabolic Awc776 Osmo 274 mOsmo 12/13/2016 Cbc With Differential [...] 31.9 pg 12/13/2016 Cbc With Differential Ord2 [place]% 9.9 % 12/13/2016 Cbc With Differential Ord2 [...] 1.17 K/ul 12/13/2016 Cbc With Differential Ord2 [place] ABS# 0.4 K/ul 12/13/2016 Cbc With Differential [...] 32.1 pg 12/19/2015 Cbc With Differential Ord2 [place]% 5.9 % 12/19/2015 Cbc With Differential Ord2 [...] 1.53 K/ul 12/19/2015 Cbc With Differential Ord2 [place] ABS# 0.3 K/ul 12/19/2015 Cbc With Differential [...] Ord30 C/HDL 2.8 Ratio 12/19/2015 Comp Metabolic Ycp503 NA 135 mEq/L 12/19/2015 Comp Metabolic Aqn476 K 4.1 mEq/L 12/19/2015 Comp Metabolic Tfr431 CL 99 mEq/L 12/19/2015 Comp Metabolic Vlk877 CO2 27.0 mEq/L 12/19/2015 Comp Metabolic Wnp753 ANION GAP 13 12/19/2015 Comp Metabolic Hff639 GLUCOSE 83 mg/dL 12/19/2015 Comp Metabolic Dto446 Creat 0.7 mg/dL 12/19/2015 Comp Metabolic Gfc825 eGFR 88 ml/min/1.73m2 12/19/2015 Comp Metabolic Owr940 BUN 12 mg/dL 12/19/2015 Comp Metabolic Hiq341 B/C Ratio 17.4 Ratio 12/19/2015 Comp Metabolic Ckt414 CALCIUM 9.0 mg/dL 12/19/2015 Comp Metabolic Uoi656 ALK PHOS 68 U/L 12/19/2015 Comp Metabolic Pah033 AST(SGOT) 16 U/L 12/19/2015 Comp Metabolic Ibn246 ALT(SGPT) 13 U/L 12/19/2015 Comp Metabolic Gfv263 BILI T 0.7 mg/dL 12/19/2015 Comp Metabolic Wci718 ALBUMIN 4.0 g/dL 12/19/2015 Comp Metabolic Hec343 TPRO 7.0 g/dL 12/19/2015 Comp Metabolic Xnj699 GLOB 3.0 g/dL 12/19/2015 Comp Metabolic Fbm165 A/G Ratio 1.3 Ratio 12/19/2015 Comp Metabolic Qcz596 Osmo 269 mOsmo 12/19/2015 Review of Systems [...] nourished 05/05/2017 None Full Exam - General 1995 Eyes conjunctiva/eyelids Overall: conjunctiva clear 05/05/2017 None [...] Procedure Codes Date THER/PROPH/DIAG INJ SC/IM CPT-4: 35099 10/01/2018 VITAMIN B12 INJECTION CPT- 4: J3420 10/01/2018 THER/PROPH/DIAG INJ SC/IM CPT-4: 29633 09/15/2018 VITAMIN B12 INJECTION CPT- 4: J3420 09/15/2018 TRIAMCINOLONE ACET INJ NOS CPT-4: J3301 09/15/2018 THER/PROPH/DIAG INJ SC/IM CPT-4: 37370 08/04/2018 VITAMIN B12 INJECTION CPT- 4: J3420 08/04/2018 THER/PROPH/DIAG INJ SC/IM CPT-4: 84305 07/16/2018 VITAMIN B12 INJECTION CPT- 4: J3420 07/16/2018 THER/PROPH/DIAG INJ SC/IM CPT-4: 06345 07/01/2018 VITAMIN B12 INJECTION CPT- 4: J3420 07/01/2018 ADMIN INFLUENZA VIRUS VAC CPT-4: G0008 06/25/2018 FLU VACC PRSV FREE INC ANTIG Formatting Model/CDA Sections, Assigned to/Miranda Ayala CPT-4: [id number] 06/25/2018 THER/PROPH/DIAG INJ SC/IM CPT-4: 49848 06/15/2018 VITAMIN B12 INJECTION CPT- 4: J3420 06/15/2018 THER/PROPH/DIAG INJ SC/IM CPT-4: 42544 06/02/2018 VITAMIN B12 INJECTION CPT- 4: J3420 06/02/2018 THER/PROPH/DIAG INJ SC/IM CPT-4: 66481 05/21/2018 VITAMIN B12 INJECTION CPT- 4: J3420 05/21/2018 TRIAMCINOLONE ACET INJ NOS CPT-4: J3301 04/09/2018 PPPS, SUBSEQ VISIT CPT- 4: G0439 12/18/2017 TRIAMCINOLONE ACET INJ NOS CPT-4: J3301 10/16/2017 DRAIN/INJECT JOINT/BURSA CPT-4: 79235 10/16/2017 PRESCRIP TRANSMIT VIA ERX SY CPT-4: G8553 05/05/2017 PRESCRIP TRANSMIT VIA ERX SY CPT-4: G8553 01/14/2017 PPPS, SUBSEQ VISIT CPT- 4: G0439 12/12/2016 PRESCRIP TRANSMIT VIA ERX SY CPT-4: G8553 10/15/2016 ADMIN PNEUMOCOCCAL VACCINE SNOMED CT: 68848297 CPT-4: G0009 08/28/2016 Pneumococcal Polysaccharide Vaccine, 23-Valent, Ad CPT-4: 50932 08/28/2016 PRESCRIP TRANSMIT VIA ERX SY CPT-4: G8553 03/14/2016 PRESCRIP TRANSMIT VIA ERX SY CPT-4: G8553 12/19/2015 THER/PROPH/DIAG INJ SC/IM CPT-4: 76851 02/07/2015 TRIAMCINOLONE ACET INJ NOS CPT-4: J3301 02/07/2015 Vital Signs Date Vital 09/15/2018 Blood Pressure 1: 106/70 Code: 8480-6 BMI: 24.9 Code: 24301-2 Heart Rate 1: 74 bpm Height: 5'1" SpO2: 95% Weight: 132 lbs 08/18/2018 Blood Pressure 1: 128/70 Code: 8480-6 BMI: 25.1 Code: 28474-8 Heart Rate 1: 74 bpm Height: 5'1" SpO2: 95% Weight: 133 lbs 08/04/2018 Blood Pressure 1: 120/80 Code: 8480-6 Blood Pressure 1: 122/80 Code: 8480-6 Blood Pressure 2: 120/82 Code: 8480-6 BMI: 25.5 Code: 57346-8 Heart Rate 1: 67 bpm Heart Rate 1: 63 bpm Height: 5'1" Weight: 135 lbs Weight: 07/22/2018 Blood Pressure 1: 120/82 Code: 8480-6 BMI: 24.9 Code: 54627-8 Heart Rate 1: 64 bpm Height: 5'1" SpO2: 95% Weight: 132 lbs 04/21/2018 Blood Pressure 1: 108/70 Code: 8480-6 BMI: 24.4 Code: 35590-7 Heart Rate 1: 62 bpm Height: 5'1" SpO2: 94% Weight: 129 lbs 04/09/2018 Blood Pressure 1: 138/86 Code: 8480-6 BMI: 25.5 Code: 37973-8 Heart Rate 1: 64 bpm Height: 5'1" SpO2: 99% Temperature: 36.4 (C) / 97.5 (F) Weight: 135 lbs 01/19/2018 Blood Pressure 1: 128/76 Code: 8480-6 BMI: 25.9 Code: 40293-7 Heart Rate 1: 65 bpm Height: 5'1" SpO2: 98% Weight: 137 lbs 12/18/2017 Blood Pressure 1: 144/82 Code: 8480-6 BMI: 26.1 Code: 47937-2 Heart Rate 1: 57 bpm Height: 5'1" SpO2: 97% Waist Measure (cm): 74 cm Weight: 138 lbs 10/16/2017 Blood Pressure 1: 142/88 Code: 8480-6 BMI: 25.5 Code: 83329-6 Heart Rate 1: 63 bpm Height: 5'1" SpO2: 97% Weight: 135 lbs 09/03/2017 Blood Pressure 1: 144/90 Code: 8480-6 BMI: 26.3 Code: 95464-1 Heart Rate 1: 91 bpm Height: 5'1" SpO2: 96% Weight: 139 lbs 07/31/2017 Blood Pressure 1: 136/90 Code: 8480-6 BMI: 26.3 Code: 17015-5 Height: 5'1" Weight: 139 lbs 07/18/2017 Blood Pressure 1: 136/84 Code: 8480-6 06/16/2017 Blood Pressure 1: 136/84 Code: 8480-6 BMI: 26.5 Code: 35701-1 Heart Rate 1: 72 bpm Height: 5'1" SpO2: 97% Weight: 140 lbs 05/28/2017 Blood Pressure 1: 138/78 Code: 8480-6 BMI: 26.1 Code: 37390-5 Heart Rate 1: 70 bpm Height: 5'1" SpO2: 98% Weight: 138 lbs 05/05/2017 Blood Pressure 1: 140/86 Code: 8480-6 BMI: 25.3 Code: 92650-7 Heart Rate 1: 66 bpm Height: 5'1" SpO2: 99% Weight: 134 lbs 03/13/2017 Blood Pressure 1: 126/74 Code: 8480-6 BMI: 25.3 Code: 61537-9 Heart Rate 1: 73 bpm Height: 5'1" SpO2: 98% Weight: 134 lbs 02/10/2017 Blood Pressure 1: 148/88 Code: 8480-6 BMI: 25.9 Code: 30120-4 Heart Rate 1: 84 bpm Height: 5'1" SpO2: 97% Weight: 137 lbs 01/14/2017 Blood Pressure 1: 134/86 Code: 8480-6 BMI: 25.7 Code: 14210-9 Heart Rate 1: 83 bpm Height: 5'1" SpO2: 95% Weight: 136 lbs 01/07/2017 Blood Pressure 1: 136/88 Code: 8480-6 BMI: 25.1 Code: 43291-2 Heart Rate 1: 86 bpm Height: 5'1" SpO2: 94% Weight: 133 lbs 01/02/2017 Blood Pressure 1: 122/68 Code: 8480-6 Blood Pressure 2: 116/78 Code: 8480-6 01/01/2017 Blood Pressure 1: 90/52 Code: 8480-6 BMI: 25.1 Code: 83036- 5 Heart Rate 1: 86 bpm Height: 5'1" SpO2: 99% Weight: 133 lbs 12/20/2016 Blood Pressure 1: 120/76 Code: 8480-6 12/12/2016 Blood Pressure 1: 130/72 Code: 8480-6 BMI: 24.8 Code: 75084-3 Heart Rate 1: 62 bpm Height: 5'1" SpO2: 98% Waist Measure (cm): 79 cm Weight: 131 lbs 12/11/2016 Blood Pressure 1: 132/70 Code: 8480-6 BMI: 24.8 Code: 36896-1 Heart Rate 1: 60 bpm Height: 5'1" Weight: 131 lbs 10/15/2016 Blood Pressure 1: 108/66 Code: 8480-6 BMI: 24.8 Code: 06240-9 Heart Rate 1: 60 bpm Height: 5'1" Weight: 131 lbs 07/17/2016 Blood Pressure 1: 128/82 Code: 8480-6 BMI: 25.3 Code: 14450-3 Heart Rate 1: 50 bpm Height: 5'2" Weight: 136 lbs 05/15/2016 Blood Pressure 1: 108/70 Code: 8480-6 BMI: 23.4 Code: 47731-9 Heart Rate 1: 54 bpm Height: 5'2" SpO2: 96% Weight: 126 lbs 04/23/2016 Blood Pressure 1: 112/60 Code: 8480-6 BMI: 23.6 Code: 77435-4 Heart Rate 1: 92 bpm Height: 5'2" SpO2: 95% Weight: 127 lbs 03/14/2016 Blood Pressure 1: 118/74 Code: 8480-6 BMI: 24.0 Code: 28342-5 Heart Rate 1: 51 bpm Height: 5'2" SpO2: 94% Temperature: 36.8 (C) / 98.3 (F) Weight: 129 lbs 02/19/2016 Blood Pressure 1: 110/62 Code: 8480-6 BMI: 23.4 Code: 88563-6 Heart Rate 1: 74 bpm Height: 5'2" SpO2: 97% Weight: 126 lbs 12/19/2015 Blood Pressure 1: 108/74 Code: 8480-6 BMI: 23.6 Code: 84934-7 Heart Rate 1: 52 bpm Height: 5'2" Weight: 127 lbs 03/06/2015 Blood Pressure 1: 136/88 Code: 8480-6 Heart Rate 1: 64 bpm Weight: 129 lbs 02/07/2015 Blood Pressure 1: 142/90 Code: 8480-6 BMI: 24.5 Code: 45164-1 Heart Rate 1: 82 bpm Height: 5'2" [...] data Encounters Encounter Performer Location Codes Date ([id number]) 66844 EST. PATIENT, LEVEL IV Diagnosis: Chest pain, unspecified[ICD10: R07.9] Diagnosis: Other vitamin B12 deficiency anemias[ICD10: D51.8] Diagnosis: Other allergic rhinitis[ICD10: J30.89] Mallorie Burden MD, [facility] CPT-4: 18846 09/15/2018 ([id number]) 90398 EST. PATIENT, LEVEL III Diagnosis: Essential (primary) hypertension[ICD10: I10] Diagnosis: Fecal urgency[ICD10: R15.2] Kim Burden MD, [facility] CPT-4: 27742 08/18/2018 ([id number]) 58105 EST. PATIENT, LEVEL IV Diagnosis: Other vitamin B12 deficiency anemias[ICD10: D51.8] Diagnosis: Essential (primary) hypertension[ICD10: I10] Diagnosis: Major depressive disorder, recurrent, mild[ICD10: F33.0] Diagnosis: Unsteadiness on feet[ICD10: R26.81] Kim Burden MD, [facility] CPT- 4: 85263 08/04/2018 ([id number]) 99283 EST. PATIENT, LEVEL IV Diagnosis: Fecal urgency[ICD10: R15.2] Diagnosis: Generalized abdominal pain[ICD10: R10.84] Diagnosis: Essential (primary) hypertension[ICD10: I10] Kim Burden MD, [facility] CPT-4: 36224 07/22/2018 ([id number]) 12226 EST. PATIENT, LEVEL IV Diagnosis: Essential (primary) hypertension[ICD10: I10] Diagnosis: Other emphysema[ICD10: J43.8] Diagnosis: Candidal stomatitis[ICD10: B37.0] Kim Burden MD, [facility] CPT- 4: 23267 04/21/2018 ([id number]) 03003 EST. PATIENT, LEVEL III Diagnosis: Chronic obstructive pulmonary disease with (acute) exacerbation[ICD10: J44.1] Mallorie Burden MD, [facility] CPT-4: 20532 04/09/2018 ([id number]) 67717 EST. PATIENT, LEVEL IV Diagnosis: Essential (primary) hypertension[ICD10: I10] Diagnosis: Other emphysema[ICD10: J43.8] Kim Burden MD, [facility] CPT-4: 79386 01/19/2018 ([id number]) 77552 EST. PATIENT, LEVEL IV Diagnosis: Essential (primary) hypertension[ICD10: I10] Diagnosis: Other emphysema[ICD10: J43.8] Diagnosis: Dependence on supplemental oxygen[ICD10: Z99.81] Diagnosis: Hypoxemia[ICD10: R09.02] Diagnosis: Pain in left knee[ICD10: M25.562] Diagnosis: Effusion, left knee[ICD10: M25.462] Kim Burden MD, [facility] CPT- 4: 79239 10/16/2017 81792 EST. PATIENT, LEVEL III Diagnosis: Pain in thoracic spine[ICD10: M54.6] Pebbles Burden MD, [facility] CPT- 4: 12022 09/03/2017 ([id number]) 90753 EST. PATIENT, LEVEL III Diagnosis: Essential (primary) hypertension[ICD10: I10] Diagnosis: Other emphysema[ICD10: J43.8] Kim Burden MD [facility] CPT-4: 60344 07/31/2017 ([id number]) Miscellaneous no charge Diagnosis: Essential (primary) hypertension[ICD10: I10] Mallorie Burden MD [facility] CPT-4: 73860 07/18/2017 ([id number]) 14752 EST. PATIENT, LEVEL III Diagnosis: Pain in left knee[ICD10: M25.562] Diagnosis: Effusion, left knee[ICD10: M25.462] Mallorie Burden MD [facility] CPT-4: 71161 06/16/2017 ([id number]) 72119 EST. PATIENT, LEVEL III Diagnosis: Essential (primary) hypertension[ICD10: I10] Diagnosis: Unsteadiness on feet[ICD10: R26.81] Kim Burden MD [facility] CPT- 4: 53108 05/28/2017 ([id number]) 12271 EST. PATIENT, LEVEL IV Diagnosis: Essential (primary) hypertension[ICD10: I10] Diagnosis: Chronic obstructive pulmonary disease with acute lower respiratory infection[ICD10: J44.0] Kim Burden MD [facility] CPT-4: 80565 05/05/2017 ([id number]) 24117 EST. PATIENT, LEVEL IV Diagnosis: Essential (primary) hypertension[ICD10: I10] Diagnosis: Major depressive disorder, recurrent, mild[ICD10: F33.0] Kim Burden MD [facility] CPT-4: 31404 03/13/2017 ([id number]) 42257 EST. PATIENT, LEVEL IV Diagnosis: Essential (primary) hypertension[ICD10: I10] Diagnosis: Gastro-esophageal reflux disease without esophagitis[ICD10: K21.9] Diagnosis: Chronic obstructive pulmonary disease, unspecified[ICD10: J44.9] Kim Burden MD [facility] CPT-4: 64301 02/10/2017 ([id number]) 30632 EST. PATIENT, LEVEL IV Diagnosis: Essential (primary) hypertension[ICD10: I10] Diagnosis: Gastro-esophageal reflux disease without esophagitis[ICD10: K21.9] Diagnosis: Chronic obstructive pulmonary disease with acute lower respiratory infection[ICD10: J44.0] Kim Burden MD, [facility] CPT-4: 86752 01/14/2017 15756 EST. PATIENT, LEVEL IV Diagnosis: Other fatigue[ICD10: R53.83] Diagnosis: Other malaise[ICD10: R53.81] Diagnosis: Headache[ICD10: R51] Diagnosis: Palpitations[ICD10: R00.2] Diagnosis: Dehydration[ICD10: E86.0] [facility] CPT-4: 09928 01/07/2017 ([id number]) Miscellaneous no charge Diagnosis: Essential (primary) hypertension[ICD10: I10] Pebbles Burden MD [facility] CPT-4: 67324 01/02/2017 89218 EST. PATIENT, LEVEL IV Diagnosis: Chronic obstructive pulmonary disease, unspecified[ICD10: J44.9] Diagnosis: Essential (primary) hypertension[ICD10: I10] Diagnosis: Other fatigue[ICD10: R53.83] [facility] CPT-4: 30507 01/01/2017 ([id number]) Miscellaneous no charge Diagnosis: Essential (primary) hypertension[ICD10: I10] [facility] CPT-4: 00582 12/20/2016 ([id number]) 99946 EST. 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 PATIENT, LEVEL IV Diagnosis: Essential (primary) hypertension[ICD10: I10] Diagnosis: Other allergic rhinitis[ICD10: J30.89] Diagnosis: Gastro-esophageal reflux disease without esophagitis[ICD10: K21.9] [facility] CPT-4: 11496 10/15/2016 ([id number]) 72097 EST. PATIENT, LEVEL III Diagnosis: Essential (primary) hypertension[ICD10: I10] Diagnosis: Major depressive disorder, recurrent, mild[ICD10: F33.0] Kim Burden MD, [facility] CPT-4: 89864 07/17/2016 ([id number]) 25214 EST. PATIENT, LEVEL III Diagnosis: Pain in left hip[ICD10: M25.552] Diagnosis: Acute laryngopharyngitis[ICD10: J06.0] Kim Burden MD, [facility] CPT-4: 12513 05/15/2016 ([id number]) 13668 EST. PATIENT, LEVEL III Diagnosis: Fracture of unspecified parts of lumbosacral spine and pelvis, initial encounter for closed fracture[ICD10: S32.9XXA] Diagnosis: Essential (primary) hypertension[ICD10: I10] Kim Burden MD, [facility] CPT-4: 08547 04/23/2016 43866 EST. PATIENT, LEVEL IV Diagnosis: Acute laryngopharyngitis[ICD10: J06.0] Diagnosis: Other allergic rhinitis[ICD10: J30.89] Pebbles Burden MD, [facility] CPT- 4: 93360 03/14/2016 51871 EST. PATIENT, LEVEL IV Diagnosis: Dysuria[ICD10: R30.0] Diagnosis: Left lower quadrant pain[ICD10: R10.32] Pebbles Burden MD, [facility] CPT-4: 17324 02/19/2016 ([id number]) 58467 EST. PATIENT, LEVEL IV Diagnosis: Essential (primary) hypertension[ICD10: I10] Diagnosis: Gastro-esophageal reflux disease without esophagitis[ICD10: K21.9] Diagnosis: Major depressive disorder, recurrent, mild[ICD10: F33.0] Kim Burden MD, [facility] CPT-4: 44658 12/19/2015 ([id number]) 35196 EST. PATIENT, LEVEL IV Diagnosis: ESSENTIAL HYPERTENSION[ICD9: 401.9] Diagnosis: ACUTE URI[ICD9: 465.9] Kim Burden MD, [facility] CPT-4: 29305 03/06/2015 ([id number]) OFFICE VISIT, NEW - LEVEL 4 Diagnosis: ESOPHAGEAL REFLUX[ICD9: 530.81] Diagnosis: ESSENTIAL HYPERTENSION[ICD9: 401.9] Diagnosis: COPD (chronic obstructive pulmonary disease)[ICD9: 496] Diagnosis: ALLERGIC RHINITIS[ICD9: 477.9] Mallorie Burden MD, [facility] CPT-4: 04101 02/07/2015 Plan of Care Planned Activity Notes Codes Status Date Referral: Consuelo Chavez Patient informed. Referral info faxed. Completed 10/07/2018 Patient Education: Patient Medication Summary Completed 10/01/2018 [...] the office 09/15/2018 Appointment: Mallorie Wetzel WPtel: [facility]2 [phone] (30 min) Complex 09/15/2018 Patient Education: Patient Medication Summary Completed 09/15/2018 Care Plan: Referral Order SNOMED-CT : [id number] Pending 09/15/2018 Appointment: Kim Burden WPtel: [facility]3 [facility] (15 min) Moderate 08/25/2018 Visit Plan: Hypertension [...] a day. 08/18/2018 Appointment: Kim Burden WPtel: [facility] (15 min) Moderate 08/18/2018 Patient Education: Patient [...] anxiolytic. 08/04/2018 [facility]ment[facility] ([facility]) Moderate 08/04/2018 Appointment: Nurse [...] at home. 07/22/2018 Appointment: [phone] (15 min) Moderate 07/22/2018 Patient Education: Patient [...] and swallow. 04/21/2018 Appointment: Kim Burden WPtel: [facility] (15 min) Moderate 04/21/2018 Patient Education: [...] changes. 04/09/2018 Appointment: Mallorie Wetzel WPtel: [phone] [phone] [place] (30 min) Complex 04/09/2018 Patient [...] Education: Patient Medication Summary Completed 01/19/2018 Appointment: iKm Burden WPtel: [phone] [facility] (15 min) Moderate 01/14/2018 Visit Plan: Medicare [...] surrogate. 12/18/2017 App[facility]ment[phone] [facility] - Annual Wellness Visit 12/18/2017 [...] and oxygen concentrator when at home. 10/16/2017 Visit Plan: Hypertension - well controlled [...] of injection. 10/16/2017 Appointment: Kim [phone] (15 min) Moderate 10/16/2017 Patient Education: [...] or concerns. 09/03/2017 Appointment: Pebbles Lund WPtel: [facility]5 [facility] (15 min) Moderate 09/03/2017 Patient Education: Patient Medication Summary Completed 09/03/2017 Appointment: Kim Burden WPtel: [phone] [facility] [place] (15 min) Moderate 08/11/2017 Appointment: Kim Burden WPtel: [facility]5 [facility] (15 min) Moderate 08/11/2017 Patient Education: Patient [...] current treatment. 07/31/2017 Appointment: Kim Burden WPtel: [facility] (15 min) Moderate 07/31/2017 Patient Education: Patient Medication Summary Completed 07/31/2017 Appointment: Nurse Visit 07/18/2017 Patient Education: Patient Medication Summary Completed 07/18/2017 Patient Education: Patient Medication Summary Completed 07/18/2017 Appointment: Kim Burden WPtel: [facility] [place] (15 min) Moderate 06/30/2017 Visit Plan: Effusion left knee-fall 2 weeks ago-recommend compression of joint and refer to Ortho for evaluation and treatment-will refer to Dr Pryor/Quinton Mccormick. Patient verbalized understanding of plan. 06/16/2017 Appointment: Mallorie Wetzel WPtel: [phone] [phone] (30 min) Complex 06/16/2017 Patient Education: Patient [...] active. 05/28/2017 Appointment: Kim Burden WPtel: [phone] [facility] (15 min) [...] acute changes. 05/05/2017 Appointment: Kim Burden WPtel: 101 [facility] (15 min) Moderate 05/05/2017 Patient Education: Patient [...] medications. 03/13/2017 Appointment: Kim [facility]el[phone] (15 min) Moderate 03/13/2017 Patient Education: [...] symptoms worsening. 02/10/2017 Appointment: [facility]el[facility] (15 min) Moderate 02/10/2017 Patient Education: Patient [...] not improving. 01/14/2017 Appointment: Kim Bur[facility]Ptel[phone] [place] (15 min) Moderate 01/14/2017 Patient Education: [...] concerns. 01/07/2017 Appointment[facility]ebbles [phone] (30 min) Complex 01/07/2017 Patient Education: Patient [...] pressures. 01/01/2017 Appointment: Pebbles Lund [phone] (30 min) Complex 01/01/2017 Patient Education: Patient [...] paperwork for health care surrogate. 12/12/2016 Appointment: Kevon Pebbles [facility]el[phone] [facility] [facility] - Annual Wellness Visit 12/12/2016 [...] this time. 12/11/2016 Appointment: Kim [facility]el[phone] [place] (15 min) Moderate 12/11/2016 Patient Education: Patient Medication Summary Completed 12/11/2016 Appointment: Malolrie Wetzel WPtel: [phone] [phone] [place] (30 min) Complex 12/10/2016 Visit [...] not improving. 10/15/2016 Appointment: Kim Burden WPtel: [phone] [facility] (15 min) Moderate 10/15/2016 Patient Education: Patient [...] restaurant. 07/17/2016 Appointment: Kim Burden WPtel: [phone] [facility] [place] (15 min) Moderate 07/17/2016 Patient Education: Patient Medication Summary Completed 07/17/2016 Appointment: Kim Burden WPtel: [phone] [facility] [place] (15 min) Moderate 06/10/2016 Visit Plan: Hip pain - persistent but improving - continue with current treatment plan. Pt to call if her symptoms are not improving or if her hip pain worsens. URI symptoms - supportive care, use otc allergy medications. 05/15/2016 Appointment: Kim Burden WPtel: [facility]6 [facility] (15 min) Moderate 05/15/2016 Patient Education: [...] not improving. 04/23/2016 Appointment: Kim Burden WPtel: [facility]5 [facility] (15 min) Moderate 04/23/2016 Patient Education: Patient Medication Summary Completed 04/23/2016 Patient Education: Hypertension Completed 04/23/2016 Care Plan: X-RAY EXAM OF ABDOMEN LOINC : 14306-3 Pending 03/18/2016 Visit Plan: URI - Pt [...] allergy spray. 03/14/2016 Appointment: Pebbles Lund WPtel: [facility]6 [facility] (30 min) Complex 03/14/2016 Patient Education: Patient Medication Summary Completed 03/14/2016 Patient Education: Patient Medication Summary Completed 02/29/2016 Visit Plan: Flank pain - pt is currently being treated for UTI, but is having continued left flank pain - will get KUB - pt is to notify clinic if symptoms do not improve, or with any concerns. 02/19/2016 Appointment: Pebbles Lund WPtel: [phone] [facility] (30 min) Complex 02/19/2016 Patient Education: [...] RX. 03/06/2015 Appointment: Kim Bur[facility]Ptel[phone] Follow up 03/06/2015 Patient Education: Patient [...] Completed 02/07/2015 Care Plan: SCREENINGMAMMOGRAPHYDIGITAL LOINC : 26822-7 Ordered 02/07/2015 Care Plan: COMPLETE CBC AUTOMATED LOINC : 19025-6 Ordered 02/07/2015 Referral: Consuelo Chavez Referral Appointment [...] to help decrease GI upset./loose stools - [employer] or [employer] . Hypertension - well controlled - continue [...] care surrogate. TAKE WITH FOOD AND PROBIOTIC ([employer] OR [employer]) . URI - Pt advised to increase [...] patient is stable, monitor for acute changes. change the metoprolol to 1 pill in [...] change in meds at this time. . Fecal urgency - Abdominal discomfort - [...] in blood pressure readings at home. . Flank pain - pt is currently being treated for UTI, but is having continued left flank pain - will get KUB - pt is to notify clinic if symptoms do not improve, or with any concerns. . Medicare Exam - today we discussed [...] and oxygen concentrator when at home. . Hypertension - well controlled [...] pain occurs at the site of injection. increase current supply of (norvasc) AMLODIPINE 2.5mg [...] movements - call if not improving. . Hypertension - well controlled [...] - rx for nystatin swish and swallow. change the metoprolol to 1 pill in [...] increase to 1/2 packet twice a day. kenalog . 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 Restart breo kenalog injection today -start oral [...]
[2019-04-06 09:13] LABS: ALANINE AMINOTRANSFERASE 11 U/L (0-55); ALBUMIN 3.9 GM/DL (3.2-4.5); ALKALINE PHOSPHATASE 67 U/L (40-136); BILIRUBIN,TOTAL 0.5 MG/DL (0.1-1.0); BUN/CREATININE RATIO 23; CALCIUM 9.3 MG/DL (8.5-10.1); CARBON DIOXIDE 28 MMOL/L (21-32); CHLORIDE 100 MMOL/L (98-107); CHOLESTEROL 169 MG/DL (< 200); CREATININE SERUM 0.73 MG/DL (0.60-1.30); GFR ESTIMATED > 60; GLUCOSE 95 MG/DL (70-105); HDL CHOLESTEROL 59 MG/DL (40-60); POTASSIUM 3.9 MMOL/L (3.6-5.0); SODIUM 138 MMOL/L (135-145); TOTAL PROTEIN 7.4 GM/DL (6.4-8.2); TRIGLYCERIDES 80 MG/DL (<150); VLDL CHOLESTEROL 16 MG/DL (5-40)
[2019-04-06] MEDS ORDERED: CITA20TA12 PO (09:16)
[2019-04-06] MEDS ORDERED: IBUP-1780 PO (09:16)
[2019-04-06] MEDS ORDERED: MIDAZOLAM 5 MG/5 ML (VERSED) VIAL ONE (09:17)
--- OUTSIDE RECORDS SUMMARY | 2019-04-06 09:17 | XMS REPORT | CCD ---
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 Name Role Phone PP Unavailable CCM Unavailable Summary Purpose Interface Exchange Insurance Providers Payer name Policy type / Coverage type Covered green party ID Effective Begin Date Effective End Date WPS Medicare Part B Medicare Part B [id number] 2018 Unknown AET[employer] Medicare Part B [id number] Unknown Family history Brother Diagnosis Age At [...] Unknown 3 02/07/[address]: 6199107 Quit over 10 years ago 199302/07/2015 Number [...] ICD-9: 492.8 ICD-10: J43.8 Active 07/31/2017 Unknown Other vitamin B12 deficiency anemias ICD-9: 281.1 ICD-10: D51.8 Active 06/02/2018 Unknown Essential (primary) hypertension ICD-9: 401.1 ICD-10: [...] emphysema ICD-9: 492.8 ICD-10: J43.8 07/31/2017 Active Other vitamin B12 deficiency anemias ICD-9: 281.1 ICD-10: D51.8 06/02/2018 Active Essential (primary) hypertension ICD-9: 401.1 ICD-10: [...] Fill Instructions ibuprofen 800 mg tablet RxNorm: 571220 TAKE 1 TABLET THREE TIMES DAILY 09/28/2018 12/21/2019 Active cyanocobalamin (vit B-12) 1,000 mcg/mL injection solution RxNorm: 908169 1 Milliliter(s) Inj 09/15/2018 09/15/2018 Inactive Kenalog 40 mg/mL suspension for injection RxNorm: 9101988 Milliliter(s) Inj 09/15/2018 09/15/2018 Inactive alprazolam 1 mg tablet RxNorm: 421564 1/2 Tablet(s) PO TID 08/10/2018 05/06/2019 Active cyanocobalamin (vit B-12) 1,000 mcg/mL injection solution RxNorm: 614363 Milliliter(s) Inj 08/04/2018 08/04/2018 Inactive alprazolam 1 mg tablet RxNorm: 557804 1/2 Tablet(s) PO BID 08/04/2018 08/09/2018 Inactive cholestyramine (with sugar) 4 gram powder for susp in a packet RxNorm: 449964 1/2 to 1 packet PO TID take 30 minutes before meals 07/22/2018 07/16/2019 Active cyanocobalamin (vit B-12) 1,000 mcg/mL injection solution RxNorm: 516495 1 Milliliter(s) Inj 07/16/2018 07/16/2018 Inactive omeprazole 20 mg capsule,delayed release RxNorm: 870107 Capsule(s) TAKE 1 CAPSULE TWICE DAILY 07/01/2018 06/25/2019 Active cyanocobalamin (vit B-12) 1,000 mcg/mL injection solution RxNorm: 039771 Milliliter(s) Inj 07/01/2018 07/01/2018 Inactive omeprazole 20 mg capsule,delayed release RxNorm: 784806 TAKE 1 CAPSULE TWICE DAILY 07/01/2018 06/30/2018 Inactive alprazolam 1 mg tablet RxNorm: 590762 1 Tablet(s) PO TID 07/01/2018 08/03/2018 Inactive cyanocobalamin (vit B-12) 1,000 mcg/mL injection solution RxNorm: 999611 Milliliter(s) Inj 06/15/2018 06/15/2018 Inactive cyanocobalamin (vit B-12) 1,000 mcg/mL injection solution RxNorm: 563336 Milliliter(s) Inj 06/02/2018 06/02/2018 Inactive fluticasone 50 mcg/actuation nasal spray,suspension RxNorm: 3297918 1 Trosper NASAL BID 05/26/2018 05/20/2019 Active Vitamin B-12 1,000 mcg/mL injection solution RxNorm: 231487 1 Milliliter(s) Inj Q2 weeks x2 months and then monthly injections 05/21/2018 No Stop Date Active cyanocobalamin (vit B-12) 1,000 mcg/mL injection solution RxNorm: 993433 Milliliter(s) Inj 05/21/2018 05/21/2018 Inactive fluticasone 50 mcg/actuation nasal spray,suspension RxNorm: 6641516 1 Trosper NASAL BID 05/19/2018 05/25/2018 Inactive fluticasone 50 mcg/actuation nasal spray,suspension RxNorm: 4121276 1 Trosper NASAL BID 05/18/2018 05/18/2018 Inactive fluticasone 50 mcg/actuation nasal spray,suspension RxNorm: 5255008 1 Trosper NASAL BID 05/15/2018 05/17/2018 Inactive fluticasone 50 mcg/actuation nasal spray,suspension RxNorm: 2940659 1 Trosper NASAL BID 05/15/2018 05/14/2018 Inactive nystatin 100,000 unit/mL oral suspension RxNorm: 215732 5 Milliliter(s) PO QID 04/21/2018 04/30/2018 Inactive Breo Ellipta 100 mcg-25 mcg/dose powder for inhalation RxNorm: 8729440 1 INH daily 04/09/2018 04/03/2019 Active please call patient with jaramillo before sending prednisone 20 mg tablet RxNorm: 596376 1 Tablet(s) PO BID 04/09/2018 04/13/2018 Inactive start tomorrow Kenalog 40 mg/mL suspension for injection RxNorm: 4860523 1.5 Milliliter(s) Inj 04/09/2018 04/09/2018 Inactive Breo Ellipta 100 mcg-25 mcg/dose powder for inhalation RxNorm: 5658982 1 INH daily 04/09/2018 04/08/2018 Inactive alprazolam 1 mg tablet RxNorm: 260991 1 Tablet(s) PO TID 03/13/2018 06/30/2018 Inactive losartan 100 mg tablet RxNorm: 362566 TAKE 1 TABLET EVERY EVENING 03/02/2018 02/13/2021 Active Ventolin HFA 90 mcg/actuation aerosol inhaler RxNorm: 203228 2 INH Q4-6H as needed 12/29/2017 02/26/2018 Inactive Ventolin HFA 90 mcg/actuation aerosol inhaler RxNorm: 186476 2 INH Q4-6H as needed 12/29/2017 12/28/2017 Inactive Diflucan 150 mg tablet RxNorm: 335825 1 Tablet(s) PO daily 11/03/2017 11/05/2017 Inactive please call pt to let herknow when to pick- up the med Keflex 500 mg capsule RxNorm: 169188 1 Capsule(s) PO TID 10/23/2017 10/29/2017 Inactive Kenalog 40 mg/mL suspension for injection RxNorm: 2796759 1 Milliliter(s) Inj 10/16/2017 10/16/2017 Inactive Lexapro 10 mg tablet RxNorm: 294579 TAKE 1 TABLET EVERY DAY 10/15/2017 10/09/2018 Active ibuprofen 800 mg tablet RxNorm: 131843 TAKE 1 TABLET THREE TIMES DAILY 10/15/2017 09/27/2018 Inactive hydrocodone 5 mg-acetaminophen 325 mg tablet RxNorm: 782494 1 Tablet(s) PO QID as needed 09/03/2017 07/21/2018 Inactive omeprazole 20 mg capsule,delayed release RxNorm: 150672 1 Capsule(s) PO BID 09/02/2017 06/30/2018 Inactive alprazolam 1 mg tablet RxNorm: 500238 1 Tablet(s) PO TID 09/02/2017 03/12/2018 Inactive metoprolol tartrate 50 mg tablet RxNorm: 157071 1/2 Tablet(s) PO BID 06/26/2017 06/20/2018 Inactive omeprazole 20 mg capsule,delayed release RxNorm: 661798 1 Capsule(s) PO BID 06/05/2017 09/01/2017 Inactive omeprazole 20 mg capsule,delayed release RxNorm: 992259 1 Capsule(s) PO BID 05/28/2017 06/04/2017 Inactive omeprazole 20 mg capsule,delayed release RxNorm: 345876 1 Capsule(s) PO QPM 05/27/2017 05/27/2017 Inactive Breo Ellipta 100 mcg-25 mcg/dose powder for inhalation RxNorm: 2244205 1 INH daily 05/05/2017 04/08/2018 Inactive alprazolam 1 mg tablet RxNorm: 468013 1 Tablet(s) PO TID 02/10/2017 08/07/2017 Inactive metoprolol tartrate 50 mg tablet RxNorm: 849499 1/2 Tablet(s) PO BID 02/10/2017 06/25/2017 Inactive losartan 100 mg tablet RxNorm: 086173 1 Tablet(s) PO QPM 02/10/2017 02/04/2018 Inactive losartan 50 mg tablet RxNorm: 798053 2 Tablet(s) PO QPM 01/23/2017 02/09/2017 Inactive Diflucan 150 mg tablet RxNorm: 344661 1 Tablet(s) PO daily 01/20/2017 01/22/2017 Inactive please call pt to let herknow when to pick- up the med Diflucan 150 mg tablet RxNorm: 720690 1 Tablet(s) PO daily 01/20/2017 01/19/2017 Inactive please call pt to let herknow when to pick- up the med losartan 50 mg tablet RxNorm: 875228 1 Tablet(s) PO QPM 01/14/2017 01/22/2017 Inactive Cipro 500 mg tablet RxNorm: 069627 1 Tablet(s) PO BID 01/08/2017 01/17/2017 Inactive Cipro 500 mg tablet RxNorm: 242972 1 Tablet(s) PO BID 01/08/2017 01/07/2017 Inactive Lexapro 10 mg tablet RxNorm: 456038 TAKE 1 TABLET EVERY DAY 12/20/2016 10/14/2017 Inactive metoprolol tartrate 50 mg tablet RxNorm: 683128 1 Tablet(s) PO in the morning and 1.5 pill at night 12/11/2016 01/13/2017 Inactive spironolactone 25 mg tablet RxNorm: 524498 TAKE 1 TABLET EVERY DAY 11/04/2016 07/21/2018 Inactive metoprolol tartrate 50 mg tablet RxNorm: 674050 TAKE 1 TABLET TWICE DAILY 10/29/2016 12/10/2016 Inactive ibuprofen 800 mg tablet RxNorm: 979255 TAKE 1 TABLET THREE TIMES DAILY 10/21/2016 10/14/2017 Inactive Astepro 0.15 % (205.5 mcg) nasal spray RxNorm: 2835556 1 Trosper NASAL BID 10/15/2016 10/14/2016 Inactive Astepro 0.15 % (205.5 mcg) nasal spray RxNorm: 4201395 1 Trosper NASAL BID 10/15/2016 07/21/2018 Inactive Astepro 0.15 % (205.5 mcg) nasal spray RxNorm: 3664501 1 Trosper NASAL BID 10/15/2016 10/14/2016 Inactive omeprazole 20 mg capsule,delayed release RxNorm: 804037 1 Capsule(s) PO QPM 10/15/2016 05/26/2017 Inactive omeprazole 20 mg capsule,delayed release RxNorm: 113273 1 Capsule(s) QPM 10/15/2016 10/14/2016 Inactive omeprazole 20 mg capsule,delayed release RxNorm: 332325 TAKE 1 CAPSULE TWICE DAILY 09/02/2016 10/14/2016 Inactive Lexapro 10 mg tablet RxNorm: 639974 TAKE 1 TABLET EVERY DAY 08/21/2016 12/19/2016 Inactive calcitonin (salmon) 200 unit/actuation nasal spray RxNorm: 474776 1 Trosper NASAL daily ONE SPRAY PER ONE NOSTRIL DAILY- ALTERNATE NOSTRILS DAILY 05/31/2016 05/30/2016 Inactive She will do this for 3 months- If she wants to do a 3 month supply at one time she can without refill calcitonin (salmon) 200 unit/actuation nasal spray RxNorm: 107670 1 Trosper NASAL daily ONE SPRAY PER ONE NOSTRIL DAILY- ALTERNATE NOSTRILS DAILY 05/31/2016 07/30/2016 Inactive x3 months- no refills Forteo 20 mcg/dose (600 mcg/2.4 mL) subcutaneous pen injector RxNorm: 1465521 1 injection SQ daily 05/22/2016 05/30/2016 Inactive call pt with jaramillo first Forteo 20 mcg/dose (600 mcg/2.4 mL) subcutaneous pen injector RxNorm: 9554300 1 injection SQ daily 05/22/2016 05/21/2016 Inactive Prolia 60 mg/mL subcutaneous syringe RxNorm: 560196 1 Milliliter(s) SQ every 6 months 05/13/2016 07/21/2018 Inactive Please check jaramillo through insurance and let me know- Thanks! Mary Ellen alprazolam 1 mg tablet RxNorm: 001592 1 Tablet(s) PO TID 05/08/2016 11/01/2016 Inactive Lexapro 10 mg tablet RxNorm: 832318 TAKE 1 TABLET EVERY DAY 04/22/2016 08/20/2016 Inactive spironolactone 25 mg tablet RxNorm: 956354 TAKE 1 TABLET EVERY DAY 04/22/2016 11/03/2016 Inactive Diflucan 150 mg tablet RxNorm: 233145 1 Tablet(s) PO daily 03/20/2016 04/14/2016 Inactive Diflucan 150 mg tablet RxNorm: 824298 1 Tablet(s) PO daily 03/20/2016 03/19/2016 Inactive Augmentin 500 mg-125 mg tablet RxNorm: 458366 1 Tablet(s) PO TID 03/14/2016 03/23/2016 Inactive omeprazole 20 mg capsule,delayed release RxNorm: 288135 1 Tablet(s) PO BID 03/06/2016 09/01/2016 Inactive [SAVINGS FOR NON-COVERED DRUGS -- BIN:257350, PCN: ASPROD1, Group: XXXXX, ID# XXXXXXX, Questions: . THIS IS NOT INSURANCE.] amlodipine 5 mg tablet RxNorm: 751247 TAKE 1 TABLET EVERY DAY 03/01/2016 04/22/2016 Inactive omeprazole 20 mg tablet,delayed release RxNorm: 629016 1 Tablet(s) PO BID 02/27/2016 03/05/2016 Inactive [SAVINGS FOR NON-COVERED DRUGS -- BIN:930952, PCN: ASPROD1, Group: XXXXX, ID# XXXXXXX, Questions: . THIS IS NOT INSURANCE.] spironolactone 25 mg tablet RxNorm: 028255 TAKE 1 TABLET EVERY DAY 12/21/2015 04/21/2016 Inactive Lexapro 10 mg tablet RxNorm: 373316 1 Tablet(s) PO daily 12/19/2015 01/01/2016 Inactive Lexapro 10 mg tablet RxNorm: 026786 1 Tablet(s) PO daily 12/19/2015 02/09/2017 Inactive Lexapro 10 mg tablet RxNorm: 293930 1 Tablet(s) PO daily 12/19/2015 12/18/2015 Inactive alprazolam 1 mg tablet RxNorm: 232760 1 Tablet(s) PO TID 12/01/2015 02/28/2016 Inactive ibuprofen 800 mg tablet RxNorm: 106058 1 Tablet(s) PO TID 10/26/2015 10/20/2016 Inactive alprazolam 1 mg tablet RxNorm: 753396 1 Tablet(s) PO TID 08/23/2015 07/21/2018 Inactive spironolactone 25 mg tablet RxNorm: 426446 1 Tablet(s) PO daily 08/21/2015 12/20/2015 Inactive metoprolol tartrate 50 mg tablet RxNorm: 792605 1 Tablet(s) PO BID 08/10/2015 08/03/2016 Inactive [SAVINGS FOR NON-COVERED DRUGS -- BIN:175643, PCN: ASPROD1, Group: XXXXX, ID# XXXXXXX, Questions: . THIS IS NOT INSURANCE.] omeprazole 20 mg tablet,delayed release RxNorm: 465086 1 Tablet(s) PO BID 08/07/2015 02/02/2016 Inactive [SAVINGS FOR NON-COVERED DRUGS -- BIN:755200, PCN: ASPROD1, Group: XXXXX, ID# XXXXXXX, Questions: . THIS IS NOT INSURANCE.] Keflex 500 mg capsule RxNorm: 723856 1 Capsule(s) PO TID 07/10/2015 07/16/2015 Inactive alprazolam 1 mg tablet RxNorm: 616770 1 Tablet(s) PO TID 06/02/2015 08/22/2015 Inactive alprazolam 1 mg tablet RxNorm: 060886 1 Tablet(s) PO TID 03/29/2015 06/01/2015 Inactive amlodipine 5 mg tablet RxNorm: 589838 1 Tablet(s) PO daily 03/06/2015 02/29/2016 Inactive Nasonex 50 mcg/actuation Trosper RxNorm: 812898 1 Trosper NASAL daily 03/03/2015 03/02/2015 Inactive Keflex 500 mg capsule RxNorm: 855485 1 Capsule(s) PO TID 03/03/2015 03/02/2015 Inactive Nasonex 50 mcg/actuation Trosper RxNorm: 195172 1 Trosper NASAL daily 03/03/2015 05/01/2015 Inactive Keflex 500 mg capsule RxNorm: 932197 1 Capsule(s) PO TID 03/03/2015 03/05/2015 Inactive Carafate 1 gram tablet RxNorm: 015926 TAKE 1 TABLET FOUR TIMES DAILY 30 MINUTES BEFORE MEALS AND AT BEDTIME 02/28/2015 12/18/2015 Inactive Kenalog 40 mg/mL suspension for injection RxNorm: 8890907 Milliliter(s) Inj 02/07/2015 02/07/2015 Inactive [SAVINGS FOR NON-COVERED DRUGS -- BIN:148258, PCN: ASPROD1, Group: XXXXX, ID# XXXXXXX, Questions: . THIS IS NOT INSURANCE.] metoprolol tartrate 50 mg tablet RxNorm: 570903 1 Tablet(s) PO BID 02/07/2015 08/09/2015 Inactive [SAVINGS FOR NON-COVERED DRUGS -- BIN:611075, PCN: ASPROD1, Group: XXXXX, ID# XXXXXXX, Questions: . THIS IS NOT INSURANCE.] Carafate 1 gram tablet RxNorm: 680751 1 Tablet(s) PO QID 02/07/2015 02/27/2015 Inactive 30 min before meals and at bedtime omeprazole 20 mg tablet,delayed release RxNorm: 734670 1 Tablet(s) PO BID 02/07/2015 08/05/2015 Inactive [SAVINGS FOR NON-COVERED DRUGS -- BIN:930981, PCN: ASPROD1, Group: XXXXX, ID# XXXXXXX, Questions: . THIS IS NOT INSURANCE.] Vitamin D3 2,000 unit tablet RxNorm: 829576 1 Tablet(s) PO daily No Start Date Active aspirin 81 mg tablet RxNorm: 493296 1 Tablet(s) PO daily No Start Date Active amlodipine 2.5 mg tablet RxNorm: 290340 1 Tablet(s) PO daily No Start Date 03/05/2015 Inactive spironolactone 25 mg tablet RxNorm: 363498 1 Tablet(s) PO daily No Start Date 08/20/2015 Inactive cetirizine 10 mg tablet RxNorm: 2363480 1 Tablet(s) PO daily No Start Date 12/18/2015 Inactive metoprolol tartrate 50 mg tablet RxNorm: 304130 1 Tablet(s) PO daily No Start Date 02/06/2015 Inactive ipratropium bromide 0.06 % nasal spray RxNorm: 693866 nasal No Start Date 12/18/2015 Inactive alprazolam 1 mg tablet RxNorm: 045301 1 Tablet(s) PO TID No Start Date 03/28/2015 Inactive Prolia 60 mg/mL subcutaneous syringe RxNorm: 497132 1 Milliliter(s) SQ every 6 months No Start Date 05/12/2016 Inactive Please check jaramillo through insurance and let me know- Thanks! Mary Ellen ibuprofen 800 mg tablet RxNorm: 277116 1 Tablet(s) PO TID No Start Date 10/25/2015 Inactive Protonix 40 mg tablet,delayed release RxNorm: 621997 1 Tablet(s) PO daily No Start Date 03/05/2015 Inactive Vitamin B-12 1,000 mcg/mL injection solution RxNorm: 513103 1 Milliliter(s) Inj Q2 weeks x2 months and then monthly injections No Start Date 05/20/2018 Inactive loratadine 10 mg tablet RxNorm: 127962 1 Tablet(s) PO daily No Start Date 07/21/2018 Inactive Medication Administered Medication Codes Instructions Start Date Status Kenalog 40 mg/mL suspension for injection RxNorm: 9889858 Milliliter 09/15/2018 No longer Active cyanocobalamin (vit B-12) 1,000 mcg/mL injection solution RxNorm: 778637 1Milliliter 09/15/2018 No longer Active cyanocobalamin (vit B-12) 1,000 mcg/mL injection solution RxNorm: 065140 Milliliter 08/04/2018 No longer Active cyanocobalamin (vit B-12) 1,000 mcg/mL injection solution RxNorm: 319057 1Milliliter 07/16/2018 No longer Active cyanocobalamin (vit B-12) 1,000 mcg/mL injection solution RxNorm: 994722 Milliliter 07/01/2018 No longer Active cyanocobalamin (vit B-12) 1,000 mcg/mL injection solution RxNorm: 509543 Milliliter 06/15/2018 No longer Active cyanocobalamin (vit B-12) 1,000 mcg/mL injection solution RxNorm: 638380 Milliliter 06/02/2018 No longer Active cyanocobalamin (vit B-12) 1,000 mcg/mL injection solution RxNorm: 087995 Milliliter 05/21/2018 No longer Active Kenalog 40 mg/mL suspension for injection RxNorm: 9017491 1.5Milliliter 04/09/2018 No longer Active Kenalog 40 mg/mL suspension for injection RxNorm: 8288689 1Milliliter 10/16/2017 No longer Active Kenalog 40 mg/mL suspension for injection RxNorm: 5512916 Milliliter 02/07/2015 No longer Active Immunizations Vaccine Codes Date Status Influenza CVX: 141 06/25/2018 completed Pneumococcal (Adult) CVX: 33 08/28/2016 completed Assessments Condition Codes Effective Dates Chest pain, unspecified ICD-10: R07.9 ICD-9: 786.50 09/15/2018 Other allergic rhinitis ICD-10: J30.89 ICD-9: 477.9 09/15/2018 Other vitamin B12 deficiency anemias ICD-10: D51.8 ICD-9: 281.1 09/15/2018 Essential (primary) hypertension ICD-10: I10 ICD-9: [...] Item Item Code Result Date Comp Metabolic Mxy952 NA 138 mEq/L 09/03/2017 Comp Metabolic Fgh918 K 3.9 mEq/L 09/03/2017 Comp Metabolic Jau695 CL 102 mEq/L 09/03/2017 Comp Metabolic Qrn847 CO2 32.0 mEq/L 09/03/2017 Comp Metabolic Rjr937 ANION GAP 8 09/03/2017 Comp Metabolic Fwh137 GLUCOSE 89 mg/dL 09/03/2017 Comp Metabolic Sho204 Creat 0.6 mg/dL 09/03/2017 Comp Metabolic Hoj043 eGFR 103 ml/min/1.73m2 09/03/2017 Comp Metabolic Xys842 BUN 10 mg/dL 09/03/2017 Comp Metabolic Zlv878 B/C Ratio 16.7 Ratio 09/03/2017 Comp Metabolic Kyk525 CALCIUM 8.9 mg/dL 09/03/2017 Comp Metabolic Nto093 ALK PHOS 141 U/L 09/03/2017 Comp Metabolic Nyo705 AST(SGOT) 12 U/L 09/03/2017 Comp Metabolic Cje967 ALT(SGPT) 7 U/L 09/03/2017 Comp Metabolic Inr135 BILI T 0.6 mg/dL 09/03/2017 Comp Metabolic Mrb303 ALBUMIN 3.6 g/dL 09/03/2017 Comp Metabolic Gxh409 TPRO 6.6 g/dL 09/03/2017 Comp Metabolic Rav434 GLOB 3.0 g/dL 09/03/2017 Comp Metabolic Wsa374 A/G Ratio 1.2 Ratio 09/03/2017 Comp Metabolic Jcg714 Osmo 274 mOsmo 09/03/2017 Hepatic Ilm612 ALBUMIN 3.7 g/dL 08/11/2017 Hepatic Gzd228 TPRO 7.0 g/dL 08/11/2017 Hepatic Lat773 GLOB 3.3 g/dL 08/11/2017 Hepatic Nbc600 A/G Ratio 1.1 Ratio 08/11/2017 Hepatic Ujt675 ALK PHOS 85 U/L 08/11/2017 Hepatic Zff333 ALT(SGPT) 11 U/L 08/11/2017 Hepatic Trs203 AST(SGOT) 16 U/L 08/11/2017 Hepatic Gho018 BILI T 0.6 mg/dL 08/11/2017 Hepatic Lkx109 BILI D 0.1 mg/dL 08/11/2017 Hepatic Jtt972 BILI I 0.5 mg/dL 08/11/2017 Hepatic Pni359 ALBUMIN 3.1 g/dL 07/18/2017 Hepatic Mfs533 TPRO 5.9 g/dL 07/18/2017 Hepatic Bmj153 GLOB 2.8 g/dL 07/18/2017 Hepatic Ids847 A/G Ratio 1.1 Ratio 07/18/2017 Hepatic Wlm191 ALK PHOS 123 U/L 07/18/2017 Hepatic Rey430 ALT(SGPT) 210 U/L 07/18/2017 Hepatic Nyz243 AST(SGOT) 71 U/L 07/18/2017 Hepatic Taz143 BILI T 1.1 mg/dL 07/18/2017 Hepatic Pvw344 BILI D 0.4 mg/dL 07/18/2017 Hepatic Jub626 BILI I 0.7 mg/dL 07/18/2017 Cbc With [...] 32.4 pg 02/25/2017 Cbc With Differential Ord2 [place]% 7.6 % 02/25/2017 Cbc With Differential Ord2 [...] 1.22 K/ul 02/25/2017 Cbc With Differential Ord2 [place] ABS# 0.4 K/ul 02/25/2017 Cbc With Differential [...] 32.3 pg 01/02/2017 Cbc With Differential Ord2 [place]% 7.8 % 01/02/2017 Cbc With Differential Ord2 [...] 0.90 K/ul 01/02/2017 Cbc With Differential Ord2 [place] ABS# 0.4 K/ul 01/02/2017 Cbc With Differential Ord2 Eos ABS# 0.3 K/ul 01/02/2017 Cbc With Differential Ord2 Baso ABS# 0.0 K/ul 01/02/2017 Lipid Ord30 CHOL 139 mg/dL 12/13/2016 Lipid Ord30 HDL 48.0 mg/dl 12/13/2016 Lipid Ord30 TRIG 84 mg/dL 12/13/2016 Lipid Ord30 LDL 74 mg/dL 12/13/2016 Lipid Ord30 C/HDL 2.9 Ratio 12/13/2016 Comp Metabolic Pqr992 NA 137 mEq/L 12/13/2016 Comp Metabolic Iad493 K 4.8 mEq/L 12/13/2016 Comp Metabolic Dtd732 CL 101 mEq/L 12/13/2016 Comp Metabolic Vvx817 CO2 32.0 mEq/L 12/13/2016 Comp Metabolic Oes825 ANION GAP 9 12/13/2016 Comp Metabolic Fts922 GLUCOSE 95 mg/dL 12/13/2016 Comp Metabolic Zux386 Creat 0.8 mg/dL 12/13/2016 Comp Metabolic Div455 eGFR 79 ml/min/1.73m2 12/13/2016 Comp Metabolic Tob040 BUN 15 mg/dL 12/13/2016 Comp Metabolic Rku190 B/C Ratio 19.7 Ratio 12/13/2016 Comp Metabolic Vnv551 CALCIUM 9.3 mg/dL 12/13/2016 Comp Metabolic Gaj373 ALK PHOS 63 U/L 12/13/2016 Comp Metabolic Ixq546 AST(SGOT) 15 U/L 12/13/2016 Comp Metabolic Uhq477 ALT(SGPT) 10 U/L 12/13/2016 Comp Metabolic Dmd954 BILI T 0.7 mg/dL 12/13/2016 Comp Metabolic Ywp026 ALBUMIN 3.7 g/dL 12/13/2016 Comp Metabolic Xyv182 TPRO 6.8 g/dL 12/13/2016 Comp Metabolic Gvr694 GLOB 3.2 g/dL 12/13/2016 Comp Metabolic Ifp043 A/G Ratio 1.2 Ratio 12/13/2016 Comp Metabolic Vul167 Osmo 274 mOsmo 12/13/2016 Cbc With Differential [...] 31.9 pg 12/13/2016 Cbc With Differential Ord2 [place]% 9.9 % 12/13/2016 Cbc With Differential Ord2 [...] 1.17 K/ul 12/13/2016 Cbc With Differential Ord2 [place] ABS# 0.4 K/ul 12/13/2016 Cbc With Differential [...] 32.1 pg 12/19/2015 Cbc With Differential Ord2 [place]% 5.9 % 12/19/2015 Cbc With Differential Ord2 [...] 1.53 K/ul 12/19/2015 Cbc With Differential Ord2 [place] ABS# 0.3 K/ul 12/19/2015 Cbc With Differential [...] Ord30 C/HDL 2.8 Ratio 12/19/2015 Comp Metabolic Urf941 NA 135 mEq/L 12/19/2015 Comp Metabolic Lcx223 K 4.1 mEq/L 12/19/2015 Comp Metabolic Prc296 CL 99 mEq/L 12/19/2015 Comp Metabolic Jyi667 CO2 27.0 mEq/L 12/19/2015 Comp Metabolic Wkm845 ANION GAP 13 12/19/2015 Comp Metabolic Fvp955 GLUCOSE 83 mg/dL 12/19/2015 Comp Metabolic Vzg911 Creat 0.7 mg/dL 12/19/2015 Comp Metabolic Vyg127 eGFR 88 ml/min/1.73m2 12/19/2015 Comp Metabolic Gxi628 BUN 12 mg/dL 12/19/2015 Comp Metabolic Qnd228 B/C Ratio 17.4 Ratio 12/19/2015 Comp Metabolic Vvx768 CALCIUM 9.0 mg/dL 12/19/2015 Comp Metabolic Ujl078 ALK PHOS 68 U/L 12/19/2015 Comp Metabolic Kje569 AST(SGOT) 16 U/L 12/19/2015 Comp Metabolic Xwl540 ALT(SGPT) 13 U/L 12/19/2015 Comp Metabolic Bjh087 BILI T 0.7 mg/dL 12/19/2015 Comp Metabolic Huq796 ALBUMIN 4.0 g/dL 12/19/2015 Comp Metabolic Cvj495 TPRO 7.0 g/dL 12/19/2015 Comp Metabolic Qpp976 GLOB 3.0 g/dL 12/19/2015 Comp Metabolic Vjj788 A/G Ratio 1.3 Ratio 12/19/2015 Comp Metabolic Rnx530 Osmo 269 mOsmo 12/19/2015 Review of Systems [...] Procedure Codes Date THER/PROPH/DIAG INJ SC/IM CPT-4: 14591 09/15/2018 VITAMIN B12 INJECTION CPT- 4: J3420 09/15/2018 TRIAMCINOLONE ACET INJ NOS CPT-4: J3301 09/15/2018 THER/PROPH/DIAG INJ SC/IM CPT-4: 85568 08/04/2018 VITAMIN B12 INJECTION CPT- 4: J3420 08/04/2018 THER/PROPH/DIAG INJ SC/IM CPT-4: 83788 07/16/2018 VITAMIN B12 INJECTION CPT- 4: J3420 07/16/2018 THER/PROPH/DIAG INJ SC/IM CPT-4: 27281 07/01/2018 VITAMIN B12 INJECTION CPT- 4: J3420 07/01/2018 ADMIN INFLUENZA VIRUS VAC CPT-4: G0008 06/25/2018 FLU VACC PRSV FREE INC ANTIG Formatting Model/CDA Sections, Assigned to/Miranda Ayala CPT-4: [id number] 06/25/2018 THER/PROPH/DIAG INJ SC/IM CPT-4: 47794 06/15/2018 VITAMIN B12 INJECTION CPT- 4: J3420 06/15/2018 THER/PROPH/DIAG INJ SC/IM CPT-4: 30970 06/02/2018 VITAMIN B12 INJECTION CPT- 4: J3420 06/02/2018 THER/PROPH/DIAG INJ SC/IM CPT-4: 49244 05/21/2018 VITAMIN B12 INJECTION CPT- 4: J3420 05/21/2018 TRIAMCINOLONE ACET INJ NOS CPT-4: J3301 04/09/2018 PPPS, SUBSEQ VISIT CPT- 4: G0439 12/18/2017 TRIAMCINOLONE ACET INJ NOS CPT-4: J3301 10/16/2017 DRAIN/INJECT JOINT/BURSA CPT-4: 84468 10/16/2017 PRESCRIP TRANSMIT VIA ERX SY CPT-4: G8553 05/05/2017 PRESCRIP TRANSMIT VIA ERX SY CPT-4: G8553 01/14/2017 PPPS, SUBSEQ VISIT CPT- 4: G0439 12/12/2016 PRESCRIP TRANSMIT VIA ERX SY CPT-4: G8553 10/15/2016 ADMIN PNEUMOCOCCAL VACCINE SNOMED CT: [id number] CPT-4: G0009 08/28/2016 Pneumococcal Polysaccharide Vaccine, 23-Valent, Ad CPT-4: 52790 08/28/2016 PRESCRIP TRANSMIT VIA ERX SY CPT-4: G8553 03/14/2016 PRESCRIP TRANSMIT VIA ERX SY CPT-4: G8553 12/19/2015 THER/PROPH/DIAG INJ SC/IM CPT-4: 92769 02/07/2015 TRIAMCINOLONE ACET INJ NOS CPT-4: J3301 02/07/2015 Vital Signs Date Vital 09/15/2018 Blood Pressure 1: 106/70 Code: 8480-6 BMI: 24.9 Code: 95281-5 Heart Rate 1: 74 bpm Height: 5'1" SpO2: 95% Weight: 132 lbs 08/18/2018 Blood Pressure 1: 128/70 Code: 8480-6 BMI: 25.1 Code: 31678-3 Heart Rate 1: 74 bpm Height: 5'1" SpO2: 95% Weight: 133 lbs 08/04/2018 Blood Pressure 1: 120/80 Code: 8480-6 Blood Pressure 1: 122/80 Code: 8480-6 Blood Pressure 2: 120/82 Code: 8480-6 BMI: 25.5 Code: 75076-6 Heart Rate 1: 67 bpm Heart Rate 1: 63 bpm Height: 5'1" Weight: 135 lbs Weight: 07/22/2018 Blood Pressure 1: 120/82 Code: 8480-6 BMI: 24.9 Code: 99453-1 Heart Rate 1: 64 bpm Height: 5'1" SpO2: 95% Weight: 132 lbs 04/21/2018 Blood Pressure 1: 108/70 Code: 8480-6 BMI: 24.4 Code: 28761-0 Heart Rate 1: 62 bpm Height: 5'1" SpO2: 94% Weight: 129 lbs 04/09/2018 Blood Pressure 1: 138/86 Code: 8480-6 BMI: 25.5 Code: 26921-7 Heart Rate 1: 64 bpm Height: 5'1" SpO2: 99% Temperature: 36.4 (C) / 97.5 (F) Weight: 135 lbs 01/19/2018 Blood Pressure 1: 128/76 Code: 8480-6 BMI: 25.9 Code: 85201-7 Heart Rate 1: 65 bpm Height: 5'1" SpO2: 98% Weight: 137 lbs 12/18/2017 Blood Pressure 1: 144/82 Code: 8480-6 BMI: 26.1 Code: 54579-7 Heart Rate 1: 57 bpm Height: 5'1" SpO2: 97% Waist Measure (cm): 74 cm Weight: 138 lbs 10/16/2017 Blood Pressure 1: 142/88 Code: 8480-6 BMI: 25.5 Code: 02393-9 Heart Rate 1: 63 bpm Height: 5'1" SpO2: 97% Weight: 135 lbs 09/03/2017 Blood Pressure 1: 144/90 Code: 8480-6 BMI: 26.3 Code: 72877-8 Heart Rate 1: 91 bpm Height: 5'1" SpO2: 96% Weight: 139 lbs 07/31/2017 Blood Pressure 1: 136/90 Code: 8480-6 BMI: 26.3 Code: 79967-9 Height: 5'1" Weight: 139 lbs 07/18/2017 Blood Pressure 1: 136/84 Code: 8480-6 06/16/2017 Blood Pressure 1: 136/84 Code: 8480-6 BMI: 26.5 Code: 54453-5 Heart Rate 1: 72 bpm Height: 5'1" SpO2: 97% Weight: 140 lbs 05/28/2017 Blood Pressure 1: 138/78 Code: 8480-6 BMI: 26.1 Code: 82813-4 Heart Rate 1: 70 bpm Height: 5'1" SpO2: 98% Weight: 138 lbs 05/05/2017 Blood Pressure 1: 140/86 Code: 8480-6 BMI: 25.3 Code: 99480-1 Heart Rate 1: 66 bpm Height: 5'1" SpO2: 99% Weight: 134 lbs 03/13/2017 Blood Pressure 1: 126/74 Code: 8480-6 BMI: 25.3 Code: 12608-2 Heart Rate 1: 73 bpm Height: 5'1" SpO2: 98% Weight: 134 lbs 02/10/2017 Blood Pressure 1: 148/88 Code: 8480-6 BMI: 25.9 Code: 68080-9 Heart Rate 1: 84 bpm Height: 5'1" SpO2: 97% Weight: 137 lbs 01/14/2017 Blood Pressure 1: 134/86 Code: 8480-6 BMI: 25.7 Code: 82155-5 Heart Rate 1: 83 bpm Height: 5'1" SpO2: 95% Weight: 136 lbs 01/07/2017 Blood Pressure 1: 136/88 Code: 8480-6 BMI: 25.1 Code: 01084-2 Heart Rate 1: 86 bpm Height: 5'1" SpO2: 94% Weight: 133 lbs 01/02/2017 Blood Pressure 1: 122/68 Code: 8480-6 Blood Pressure 2: 116/78 Code: 8480-6 01/01/2017 Blood Pressure 1: 90/52 Code: 8480-6 BMI: 25.1 Code: 60957- 5 Heart Rate 1: 86 bpm Height: 5'1" SpO2: 99% Weight: 133 lbs 12/20/2016 Blood Pressure 1: 120/76 Code: 8480-6 12/12/2016 Blood Pressure 1: 130/72 Code: 8480-6 BMI: 24.8 Code: 65376-3 Heart Rate 1: 62 bpm Height: 5'1" SpO2: 98% Waist Measure (cm): 79 cm Weight: 131 lbs 12/11/2016 Blood Pressure 1: 132/70 Code: 8480-6 BMI: 24.8 Code: 14660-1 Heart Rate 1: 60 bpm Height: 5'1" Weight: 131 lbs 10/15/2016 Blood Pressure 1: 108/66 Code: 8480-6 BMI: 24.8 Code: 09579-2 Heart Rate 1: 60 bpm Height: 5'1" Weight: 131 lbs 07/17/2016 Blood Pressure 1: 128/82 Code: 8480-6 BMI: 25.3 Code: 65116-5 Heart Rate 1: 50 bpm Height: 5'2" Weight: 136 lbs 05/15/2016 Blood Pressure 1: 108/70 Code: 8480-6 BMI: 23.4 Code: 16467-6 Heart Rate 1: 54 bpm Height: 5'2" SpO2: 96% Weight: 126 lbs 04/23/2016 Blood Pressure 1: 112/60 Code: 8480-6 BMI: 23.6 Code: 13037-4 Heart Rate 1: 92 bpm Height: 5'2" SpO2: 95% Weight: 127 lbs 03/14/2016 Blood Pressure 1: 118/74 Code: 8480-6 BMI: 24.0 Code: 52699-6 Heart Rate 1: 51 bpm Height: 5'2" SpO2: 94% Temperature: 36.8 (C) / 98.3 (F) Weight: 129 lbs 02/19/2016 Blood Pressure 1: 110/62 Code: 8480-6 BMI: 23.4 Code: 25384-8 Heart Rate 1: 74 bpm Height: 5'2" SpO2: 97% Weight: 126 lbs 12/19/2015 Blood Pressure 1: 108/74 Code: 8480-6 BMI: 23.6 Code: 08915-7 Heart Rate 1: 52 bpm Height: 5'2" Weight: 127 lbs 03/06/2015 Blood Pressure 1: 136/88 Code: 8480-6 Heart Rate 1: 64 bpm Weight: 129 lbs 02/07/2015 Blood Pressure 1: 142/90 Code: 8480-6 BMI: 24.5 Code: 00095-0 Heart Rate 1: 82 bpm Height: 5'2" [...] data Encounters Encounter Performer Location Codes Date ([id number]) [id number] EST. PATIENT, LEVEL IV Diagnosis: Chest pain, unspecified[ICD10: R07.9] Diagnosis: Other vitamin B12 deficiency anemias[ICD10: D51.8] Diagnosis: Other allergic rhinitis[ICD10: J30.89] Mallorie Burden MD, [facility] CPT-4: 39187 09/15/2018 ([id number]) 82213 EST. PATIENT, LEVEL III Diagnosis: Essential (primary) hypertension[ICD10: I10] Diagnosis: Fecal urgency[ICD10: R15.2] Kim Burden MD, [facility] CPT-4: 32284 08/18/2018 ([id number]) 19327 EST. PATIENT, LEVEL IV Diagnosis: Other vitamin B12 deficiency anemias[ICD10: D51.8] Diagnosis: Essential (primary) hypertension[ICD10: I10] Diagnosis: Major depressive disorder, recurrent, mild[ICD10: F33.0] Diagnosis: Unsteadiness on feet[ICD10: R26.81] Kim Burden MD, [facility] CPT- 4: 49694 08/04/2018 ([id number]) 09214 EST. PATIENT, LEVEL IV Diagnosis: Fecal urgency[ICD10: R15.2] Diagnosis: Generalized abdominal pain[ICD10: R10.84] Diagnosis: Essential (primary) hypertension[ICD10: I10] Kim Burden MD, [facility] CPT-4: 51067 07/22/2018 ([id number]) 24879 EST. PATIENT, LEVEL IV Diagnosis: Essential (primary) hypertension[ICD10: I10] Diagnosis: Other emphysema[ICD10: J43.8] Diagnosis: Candidal stomatitis[ICD10: B37.0] Kim Burden MD, [facility] CPT- 4: 17953 04/21/2018 ([id number]) 32975 EST. PATIENT, LEVEL III Diagnosis: Chronic obstructive pulmonary disease with (acute) exacerbation[ICD10: J44.1] Mallorie Burden MD, [facility] CPT-4: 20385 04/09/2018 ([id number]) 28245 EST. PATIENT, LEVEL IV Diagnosis: Essential (primary) hypertension[ICD10: I10] Diagnosis: Other emphysema[ICD10: J43.8] Kim Burden MD, [facility] CPT-4: 00294 01/19/2018 ([id number]) 37281 EST. PATIENT, LEVEL IV Diagnosis: Essential (primary) hypertension[ICD10: I10] Diagnosis: Other emphysema[ICD10: J43.8] Diagnosis: Dependence on supplemental oxygen[ICD10: Z99.81] Diagnosis: Hypoxemia[ICD10: R09.02] Diagnosis: Pain in left knee[ICD10: M25.562] Diagnosis: Effusion, left knee[ICD10: M25.462] Kim Burden MD, [facility] CPT- 4: 34655 10/16/2017 [id number] EST. PATIENT, LEVEL III Diagnosis: Pain in thoracic spine[ICD10: M54.6] Pebbles Burden MD, [facility] CPT- 4: 37046 09/03/2017 ([id number]) 30222 EST. PATIENT, LEVEL III Diagnosis: Essential (primary) hypertension[ICD10: I10] Diagnosis: Other emphysema[ICD10: J43.8] Kim Burden MD, [facility] CPT-4: 96322 07/31/2017 ([id number]) Miscellaneous no charge Diagnosis: Essential (primary) hypertension[ICD10: I10] Mallorie Burden MD, [facility] CPT-4: 54377 07/18/2017 ([id number]) 03898 EST. PATIENT, LEVEL III Diagnosis: Pain in left knee[ICD10: M25.562] Diagnosis: Effusion, left knee[ICD10: M25.462] Mallorie Burden MD, [facility] CPT-4: 45092 06/16/2017 ([id number]) 29115 EST. PATIENT, LEVEL III Diagnosis: Essential (primary) hypertension[ICD10: I10] Diagnosis: Unsteadiness on feet[ICD10: R26.81] Kim Burden MD, [facility] CPT- 4: 19036 05/28/2017 ([id number]) 30470 EST. PATIENT, LEVEL IV Diagnosis: Essential (primary) hypertension[ICD10: I10] Diagnosis: Chronic obstructive pulmonary disease with acute lower respiratory infection[ICD10: J44.0] Kim Burden MD, [facility] CPT-4: 93765 05/05/2017 ([id number]) 02702 EST. PATIENT, LEVEL IV Diagnosis: Essential (primary) hypertension[ICD10: I10] Diagnosis: Major depressive disorder, recurrent, mild[ICD10: F33.0] Kim Burden MD, [facility] CPT-4: 30330 03/13/2017 ([id number]) 22493 EST. PATIENT, LEVEL IV Diagnosis: Essential (primary) hypertension[ICD10: I10] Diagnosis: Gastro-esophageal reflux disease without esophagitis[ICD10: K21.9] Diagnosis: Chronic obstructive pulmonary disease, unspecified[ICD10: J44.9] Kim Burden MD, [facility] CPT-4: 70496 02/10/2017 ([id number]) 00402 EST. PATIENT, LEVEL IV Diagnosis: Essential (primary) hypertension[ICD10: I10] Diagnosis: Gastro-esophageal reflux disease without esophagitis[ICD10: K21.9] Diagnosis: Chronic obstructive pulmonary disease with acute lower respiratory infection[ICD10: J44.0] Kim Burden MD, [facility] CPT-4: 55684 01/14/2017 79885 EST. PATIENT, LEVEL IV Diagnosis: Other fatigue[ICD10: R53.83] Diagnosis: Other malaise[ICD10: R53.81] Diagnosis: Headache[ICD10: R51] Diagnosis: Palpitations[ICD10: R00.2] Diagnosis: Dehydration[ICD10: E86.0] Pebbles Burden MD, [facility] CPT-4: 40632 01/07/2017 ([id number]) Miscellaneous no charge Diagnosis: Essential (primary) hypertension[ICD10: I10] Pebbles Burden MD, [facility] CPT-4: 70204 01/02/2017 43288 EST. PATIENT, LEVEL IV Diagnosis: Chronic obstructive pulmonary disease, unspecified[ICD10: J44.9] Diagnosis: Essential (primary) hypertension[ICD10: I10] Diagnosis: Other fatigue[ICD10: R53.83] Peblbes Burden MD, [facility] CPT-4: 71206 01/01/2017 ([id number]) Miscellaneous no charge Diagnosis: Essential (primary) hypertension[ICD10: I10] Pebbles Burden MD, [facility] CPT-4: 43978 12/20/2016 ([id number]) 45552 EST. PATIENT, LEVEL IV Diagnosis: Essential (primary) hypertension[ICD10: I10] Diagnosis: Major depressive disorder, recurrent, mild[ICD10: F33.0] Diagnosis: Headache[ICD10: R51] Diagnosis: Other fatigue[ICD10: R53.83] Kim Burden MD, [facility] CPT-4: 70911 12/11/2016 ([id number]) 17832 EST. PATIENT, LEVEL IV Diagnosis: Essential (primary) hypertension[ICD10: I10] Diagnosis: Other allergic rhinitis[ICD10: J30.89] Diagnosis: Gastro-esophageal reflux disease without esophagitis[ICD10: K21.9] Kim Burden MD, [facility] CPT-4: 64771 10/15/2016 ([id number]) 23712 EST. PATIENT, LEVEL III Diagnosis: Essential (primary) hypertension[ICD10: I10] Diagnosis: Major depressive disorder, recurrent, mild[ICD10: F33.0] Kim Burden MD, [facility] CPT-4: 82071 07/17/2016 ([id number]) 83417 EST. PATIENT, LEVEL III Diagnosis: Pain in left hip[ICD10: M25.552] Diagnosis: Acute laryngopharyngitis[ICD10: J06.0] Kim Burden MD, [facility] CPT-4: 99045 05/15/2016 ([id number]) 19235 EST. PATIENT, LEVEL III Diagnosis: Fracture of unspecified parts of lumbosacral spine and pelvis, initial encounter for closed fracture[ICD10: S32.9XXA] Diagnosis: Essential (primary) hypertension[ICD10: I10] Kim Burden MD, [facility] CPT-4: 32872 04/23/2016 87453 EST. PATIENT, LEVEL IV Diagnosis: Acute laryngopharyngitis[ICD10: J06.0] Diagnosis: Other allergic rhinitis[ICD10: J30.89] Pebbles Burden MD, [facility] CPT- 4: 92712 03/14/2016 84609 EST. PATIENT, LEVEL IV Diagnosis: Dysuria[ICD10: R30.0] Diagnosis: Left lower quadrant pain[ICD10: R10.32] Pebbles Burden MD, [facility] CPT-4: 07122 02/19/2016 ([id number]) 23276 EST. PATIENT, LEVEL IV Diagnosis: Essential (primary) hypertension[ICD10: I10] Diagnosis: Gastro-esophageal reflux disease without esophagitis[ICD10: K21.9] Diagnosis: Major depressive disorder, recurrent, mild[ICD10: F33.0] Kim Burden MD, [facility] CPT-4: 47282 12/19/2015 ([id number]) 33299 EST. PATIENT, LEVEL IV Diagnosis: ESSENTIAL HYPERTENSION[ICD9: 401.9] Diagnosis: ACUTE URI[ICD9: 465.9] Kim Burden MD, [facility] CPT-4: 68974 03/06/2015 ([id number]) OFFICE VISIT, NEW - LEVEL 4 Diagnosis: ESOPHAGEAL REFLUX[ICD9: 530.81] Diagnosis: ESSENTIAL HYPERTENSION[ICD9: 401.9] Diagnosis: COPD (chronic obstructive pulmonary disease)[ICD9: 496] Diagnosis: ALLERGIC RHINITIS[ICD9: 477.9] Mallorie Burden MD, [facility] CPT-4: 65326 02/07/2015 Plan of Care Planned Activity Notes Codes Status Date Referral: Consuelo Chavez Patient informed. Referral info faxed. Completed 10/07/2018 Visit Plan: Chest pain- refer to Dr [...] the office 09/15/2018 Appointment: Mallorie Wetzel WPtel: [phone] [phone] (30 min) Complex 09/15/2018 Patient Education: Patient Medication Summary Completed 09/15/2018 Care Plan: Referral Order SNOMED-CT : [id number] Pending 09/15/2018 Appointment: Kim Burden WPtel: [facility] (15 min) Moderate 08/25/2018 Visit Plan: [...] day. 08/18/2018 Appointment: Kim Burden WPtel: [phone] [facility] (15 min) Moderate 08/18/2018 Patient Education: [...] anxiolytic. 08/04/2018 [phone] ([facility] Moderate 08/04/2018 Appointment: Nurse [...] home. 07/22/2018 [phone] ([facility] min) Moderate 07/22/2018 Patient Education: [...] and swallow. 04/21/2018 [facility]ment: [phone] [facility] ([facility] min) Moderate 04/21/2018 Patient Education: [...] acute changes. 04/09/2018 Appointment: Mallorie Wetzel WPtel: [phone] [phone] (30 min) Complex 04/09/2018 Patient Education: Patient [...] changes. 01/19/2018 Appointment: Kim Burden WPtel: [phone] [facility] (15 min) Moderate 01/19/2018 Patient Education: Patient Medication Summary Completed 01/19/2018 Appointment: Kim Burden WPtel: [phone] [facility] (15 min) Moderate 01/14/2018 Visit Plan: [...] surrogate. 12/18/2017 [phone] [facility] - Annual Wellness Visit 12/18/2017 Patient [...] at home. 10/16/2017 Appointment: Kim Burden [facility]Ptel[facility] [place] (15 min) Moderate 10/16/2017 Patient [...] concerns. 09/03/2017 Appointment: [facility]ebbles Lund [phone] [facility] (15 min) Moderate 09/03/2017 Patient Education: Patient Medication Summary Completed 09/03/2017 App[facility]ment: [phone] [facility] (15 min) Moderate 08/11/2017 Appointment: Kim Burden WPtel: [facility] (15 min) Moderate 08/11/2017 Patient Education: Patient [...] treatment. 07/31/2017 Appointment: Kim Burden WPtel: [facility] (15 min) Moderate 07/31/2017 Patient Education: Patient Medication Summary Completed 07/31/2017 Appointment: Nurse Visit 07/18/2017 Patient Education: Patient Medication Summary Completed 07/18/2017 Patient Education: Patient Medication Summary Completed 07/18/2017 Appointment: Kim Burden WPtel[facility] (15 min) Moderate 06/30/2017 Visit Plan: Effusion left knee-fall 2 weeks ago-recommend compression of joint and refer to Ortho for evaluation and treatment-will refer to Dr Pryor/Quinton Mccormick. Patient verbalized understanding of plan. 06/16/2017 Appointment: Mallorie Wetzel WPtel[phone] [place] (30 min) Complex 06/16/2017 Patient [...] active. 05/28/2017 Appointment: [phone] [facility] (15 min) Moderate 05/28/2017 Patient Education: [...] changes. 05/05/2017 Appointment: Kim Burden WPtel: [phone] [facility] (15 min) Moderate 05/05/2017 Patient Education: [...] current medications. 03/13/2017 App[facility]ment: [phone] [facility] (15 min) Moderate 03/13/2017 Patient Education: [...] worsening. 02/10/2017 App[facility]ment: [phone] [facility] (15 min) Moderate 02/10/2017 Patient Education: [...] improving. 01/14/2017 Appointment: [phone] [facility] (15 min) Moderate 01/14/2017 Patient Education: [...] concerns. 01/07/2017 Appointment: Pebbles Lund [facility] [phone] [facility] (30 min) Complex 01/07/2017 [...] care surrogate. 12/12/2016 Appointment: Pebbles Lund [facility] [phone] [facility] [facility] - Annual Wellness Visit 12/12/2016 Patient [...] time. 12/11/2016 Appointment: [phone] [facility] [place] (15 min) Moderate 12/11/2016 Patient Education: Patient Medication Summary Completed 12/11/2016 App[facility]ment: [facility] [phone] [phone] [place] (30 min) Complex 12/10/2016 Visit Plan: [...] improving. 10/15/2016 Appointment: Kim Burden WPtel: [phone] [facility] (15 min) Moderate 10/15/2016 Patient Education: [...] Burden WPtel: [facility] (15 min) Moderate 07/17/2016 Patient Education: Patient Medication Summary Completed 07/17/2016 Appointment: Kim Burden WPtel: [facility] (15 min) Moderate 06/10/2016 Visit Plan: Hip pain - persistent but improving - continue with current treatment plan. Pt to call if her symptoms are not improving or if her hip pain worsens. URI symptoms - supportive care, use otc allergy medications. 05/15/2016 Appointment: Kim Burden WPtel: [phone] [facility] (15 min) Moderate 05/15/2016 Patient Education: [...] improving. 04/23/2016 Appointment: Kim Burden WPtel: [phone] [facility] (15 min) Moderate 04/23/2016 Patient Education: Patient Medication Summary Completed 04/23/2016 Patient Education: Hypertension Completed 04/23/2016 Care Plan: X-RAY EXAM OF ABDOMEN [facility] : 27828-5 Pending 03/18/2016 Visit Plan: URI - Pt [...] spray. 03/14/2016 Appointment: Pebbles Lund WPtel: [facility] (30 min) Complex 03/14/2016 Patient Education: Patient Medication Summary Completed 03/14/2016 Patient Education: Patient Medication Summary Completed 02/29/2016 Visit Plan: Flank pain - pt is currently being treated for UTI, but is having continued left flank pain - will get KUB - pt is to notify clinic if symptoms do not improve, or with any concerns. 02/19/2016 Appointment: Pebbles Lund WPtel: [facility] (30 min) Complex 02/19/2016 Patient Education: Patient Medication Summary Completed 02/19/2016 Appointment: Kim Burden WPtel: [facility] (15 min) Moderate 01/22/2016 Visit Plan: [...] improving. 12/19/2015 Appointment: Kim Burden WPtel: [phone] [facility] (15 min) Moderate 12/19/2015 Patient Education: [...] RX. 03/06/2015 App[facility]ment: [phone] Follow up 03/06/2015 Patient Education: Patient [...] Completed 02/07/2015 Care Plan: SCREENINGMAMMOGRAPHYDIGITAL LOINC : 30394-5 Ordered 02/07/2015 Care Plan: COMPLETE CBC AUTOMATED LOINC : 29282-7 Ordered 02/07/2015 Referral: Consuelo Chavez Referral Appointment Requested Instructions Comment CHECK YOUR BLOOD PRESSURE AND PULSE AT [...] exposure. No change in current medications. . Medicare Exam - today we discussed [...] to help decrease GI upset./loose stools - mobicanvasBaubleBar or itravel . Hypertension - well controlled - continue [...] worsen, or with any questions or concerns. kenalog . Chest pain- refer to Dr [...] to continue with oxygen when active. . COPD - chronic problem for this [...] occurs at the site of injection. . Hip pain - persistent but [...] care surrogate. TAKE WITH [employer] ([facility] OR [employer]) . URI - Pt advised to increase [...] in the nasal steroid allergy spray. . COPD - chronic problem for this [...] not improve, or with any concerns. . Thoracic back pain - x-ray showed compression fracture of lower thoracic vertebrae - pt still having significant pain - will order MRI and schedule pt for kyphoplasty - pt is to notify clinic if symptoms do not improve, if they worsen, or with any acute changes, questions, or concerns. . HTN - blood pressure [...]
[2019-04-06] MEDS ORDERED: fentaNYL INJECTION 100 MCG/2 ML AMP ONE (09:18)
--- OUTSIDE RECORDS SUMMARY | 2019-04-06 09:21 | XMS REPORT | CCD ---
Author Author Mallorie Wetzel Organization Kim Burden MD, [facility] Address [address] [place] [address] Phone Care Team Providers Care Independent Jeweler Name Role Phone PP Unavailable CCM Unavailable Summary Purpose Interface Exchange Insurance Providers Payer name Policy type / Coverage type Covered alliance party ID Effective Begin Date Effective End Date WPS Medicare Part B Medicare Part B [id number] 2018 Unknown AETNA Medicare Part B [id number] Unknown Family history Brother Diagnosis Age At [...] Unknown 3 02/07/[address]: 0995417 Quit over 10 years ago 199302/07/2015 Number [...] (vit B-12) 1,000 mcg/mL injection solution RxNorm: 266336 1 Milliliter(s) Inj 09/15/2018 09/15/2018 Inactive Kenalog 40 mg/mL suspension for injection RxNorm: 4214113 Milliliter(s) Inj 09/15/2018 09/15/2018 Inactive alprazolam 1 mg tablet RxNorm: 785200 1/2 Tablet(s) PO TID 08/10/2018 05/06/2019 Active cyanocobalamin (vit B-12) 1,000 mcg/mL injection solution RxNorm: 657712 Milliliter(s) Inj 08/04/2018 08/04/2018 Inactive alprazolam 1 mg tablet RxNorm: 833936 1/2 Tablet(s) PO BID 08/04/2018 08/09/2018 Inactive cholestyramine (with sugar) 4 gram powder for susp in a packet RxNorm: 639495 1/2 to 1 packet PO TID take 30 minutes before meals 07/22/2018 07/16/2019 Active cyanocobalamin (vit B-12) 1,000 mcg/mL injection solution RxNorm: 888339 1 Milliliter(s) Inj 07/16/2018 07/16/2018 Inactive omeprazole 20 mg capsule,delayed release RxNorm: 140337 Capsule(s) TAKE 1 CAPSULE TWICE DAILY 07/01/2018 06/25/2019 Active cyanocobalamin (vit B-12) 1,000 mcg/mL injection solution RxNorm: 715774 Milliliter(s) Inj 07/01/2018 07/01/2018 Inactive omeprazole 20 mg capsule,delayed release RxNorm: 789262 TAKE 1 CAPSULE TWICE DAILY 07/01/2018 06/30/2018 Inactive alprazolam 1 mg tablet RxNorm: 913288 1 Tablet(s) PO TID 07/01/2018 08/03/2018 Inactive cyanocobalamin (vit B-12) 1,000 mcg/mL injection solution RxNorm: 200377 Milliliter(s) Inj 06/15/2018 06/15/2018 Inactive cyanocobalamin (vit B-12) 1,000 mcg/mL injection solution RxNorm: 383394 Milliliter(s) Inj 06/02/2018 06/02/2018 Inactive fluticasone 50 mcg/actuation nasal spray,suspension RxNorm: 3575075 1 [place] NASAL BID 05/26/2018 05/20/2019 Active Vitamin B-12 1,000 mcg/mL injection solution RxNorm: 679603 1 Milliliter(s) Inj Q2 weeks x2 months and then monthly injections 05/21/2018 No Stop Date Active cyanocobalamin (vit B-12) 1,000 mcg/mL injection solution RxNorm: 186026 Milliliter(s) Inj 05/21/2018 05/21/2018 Inactive fluticasone 50 mcg/actuation nasal spray,suspension RxNorm: 4154627 1 [place] NASAL BID 05/19/2018 05/25/2018 Inactive fluticasone 50 mcg/actuation nasal spray,suspension RxNorm: 8202849 1 [place] NASAL BID 05/18/2018 05/18/2018 Inactive fluticasone 50 mcg/actuation nasal spray,suspension RxNorm: 3070538 1 [place] NASAL BID 05/15/2018 05/17/2018 Inactive fluticasone 50 mcg/actuation nasal spray,suspension RxNorm: 7704584 1 [place] NASAL BID 05/15/2018 05/14/2018 Inactive nystatin 100,000 unit/mL oral suspension RxNorm: 530717 5 Millil[place](s) PO QID 04/21/2018 04/30/2018 Inactive Breo Ellipta 100 mcg-25 mcg/dose powder for inhalation RxNorm: 4219778 1 INH daily 04/09/2018 04/03/2019 Active please call patient with jaramillo before sending prednisone 20 mg tablet RxNorm: 269901 1 Tablet(s) PO BID 04/09/2018 04/13/2018 Inactive start tomorrow Kenalog 40 mg/mL suspension for injection RxNorm: 3235735 1.5 Milliliter(s) Inj 04/09/2018 04/09/2018 Inactive Breo Ellipta 100 mcg-25 mcg/dose powder for inhalation RxNorm: 1137425 1 INH daily 04/09/2018 04/08/2018 Inactive alprazolam 1 mg tablet RxNorm: 532716 1 Tablet(s) PO TID 03/13/2018 06/30/2018 Inactive losartan 100 mg tablet RxNorm: 214862 TAKE 1 TABLET EVERY EVENING 03/02/2018 02/13/2021 Active Ventolin HFA 90 mcg/actuation aerosol inhaler RxNorm: 056897 2 INH Q4-6H as needed 12/29/2017 02/26/2018 Inactive Ventolin HFA 90 mcg/actuation aerosol inhaler RxNorm: 831689 2 INH Q4-6H as needed 12/29/2017 12/28/2017 Inactive Diflucan 150 mg tablet RxNorm: 869300 1 Tablet(s) PO daily 11/03/2017 11/05/2017 Inactive please call pt to let herknow when to pick- up the med Keflex 500 mg capsule RxNorm: 286710 1 Capsule(s) PO TID 10/23/2017 10/29/2017 Inactive Kenalog 40 mg/mL suspension for injection RxNorm: 0748600 1 Milliliter(s) Inj 10/16/2017 10/16/2017 Inactive ibuprofen 800 mg tablet RxNorm: 437830 TAKE 1 TABLET THREE TIMES DAILY 10/15/2017 01/07/2019 Active Lexapro 10 mg tablet RxNorm: 542757 TAKE 1 TABLET EVERY DAY 10/15/2017 10/09/2018 Active hydrocodone 5 mg-acetaminophen 325 mg tablet RxNorm: 456342 1 Tablet(s) PO QID as needed 09/03/2017 07/21/2018 Inactive omeprazole 20 mg capsule,delayed release RxNorm: 588667 1 Capsule(s) PO BID 09/02/2017 06/30/2018 Inactive alprazolam 1 mg tablet RxNorm: 714866 1 Tablet(s) PO TID 09/02/2017 03/12/2018 Inactive metoprolol tartrate 50 mg tablet RxNorm: 738298 1/2 Tablet(s) PO BID 06/26/2017 06/20/2018 Inactive omeprazole 20 mg capsule,delayed release RxNorm: 362105 1 Capsule(s) PO BID 06/05/2017 09/01/2017 Inactive omeprazole 20 mg capsule,delayed release RxNorm: 766209 1 Capsule(s) PO BID 05/28/2017 06/04/2017 Inactive omeprazole 20 mg capsule,delayed release RxNorm: 082318 1 Capsule(s) PO QPM 05/27/2017 05/27/2017 Inactive Breo Ellipta 100 mcg-25 mcg/dose powder for inhalation RxNorm: 8147372 1 INH daily 05/05/2017 04/08/2018 Inactive alprazolam 1 mg tablet RxNorm: 578433 1 Tablet(s) PO TID 02/10/2017 08/07/2017 Inactive metoprolol tartrate 50 mg tablet RxNorm: 331880 1/2 Tablet(s) PO BID 02/10/2017 06/25/2017 Inactive losartan 100 mg tablet RxNorm: 483912 1 Tablet(s) PO QPM 02/10/2017 02/04/2018 Inactive losartan 50 mg tablet RxNorm: 840433 2 Tablet(s) PO QPM 01/23/2017 02/09/2017 Inactive Diflucan 150 mg tablet RxNorm: 402255 1 Tablet(s) PO daily 01/20/2017 01/22/2017 Inactive please call pt to let herknow when to pick- up the med Diflucan 150 mg tablet RxNorm: 382314 1 Tablet(s) PO daily 01/20/2017 01/19/2017 Inactive please call pt to let herknow when to pick- up the med losartan 50 mg tablet RxNorm: 525933 1 Tablet(s) PO QPM 01/14/2017 01/22/2017 Inactive Cipro 500 mg tablet RxNorm: 137799 1 Tablet(s) PO BID 01/08/2017 01/17/2017 Inactive Cipro 500 mg tablet RxNorm: 882324 1 Tablet(s) PO BID 01/08/2017 01/07/2017 Inactive Lexapro 10 mg tablet RxNorm: 575485 TAKE 1 TABLET EVERY DAY 12/20/2016 10/14/2017 Inactive metoprolol tartrate 50 mg tablet RxNorm: 600923 1 Tablet(s) PO in the morning and 1.5 pill at night 12/11/2016 01/13/2017 Inactive spironolactone 25 mg tablet RxNorm: 143565 TAKE 1 TABLET EVERY DAY 11/04/2016 07/21/2018 Inactive metoprolol tartrate 50 mg tablet RxNorm: 183267 TAKE 1 TABLET TWICE DAILY 10/29/2016 12/10/2016 Inactive ibuprofen 800 mg tablet RxNorm: 166487 TAKE 1 TABLET THREE TIMES DAILY 10/21/2016 10/14/2017 Inactive Astepro 0.15 % (205.5 mcg) nasal spray RxNorm: 7712200 1 [place] NASAL BID 10/15/2016 10/14/2016 Inactive Astepro 0.15 % (205.5 mcg) nasal spray RxNorm: 3212660 1 [place] NASAL BID 10/15/2016 07/21/2018 Inactive Astepro 0.15 % (205.5 mcg) nasal spray RxNorm: 0477451 1 [place] NASAL BID 10/15/2016 10/14/2016 Inactive omeprazole 20 mg capsule,delayed release RxNorm: 973261 1 Capsule(s) PO QPM 10/15/2016 05/26/2017 Inactive omeprazole 20 mg capsule,delayed release RxNorm: 255084 1 Capsule(s) QPM 10/15/2016 10/14/2016 Inactive omeprazole 20 mg capsule,delayed release RxNorm: 501290 TAKE 1 CAPSULE TWICE DAILY 09/02/2016 10/14/2016 Inactive Lexapro 10 mg tablet RxNorm: 293171 TAKE 1 TABLET EVERY DAY 08/21/2016 12/19/2016 Inactive calcitonin (salmon) 200 unit/actuation nasal spray RxNorm: 315925 1 [place] NASAL daily ONE SPRAY PER ONE NOSTRIL DAILY- ALTERNATE NOSTRILS DAILY 05/31/2016 05/30/2016 Inactive She will do this for 3 months- If she wants to do a 3 month supply at one time she can without refill calcitonin (salmon) 200 unit/actuation nasal spray RxNorm: 339459 1 [place] NASAL daily ONE SPRAY PER ONE NOSTRIL DAILY- ALTERNATE NOSTRILS DAILY 05/31/2016 07/30/2016 Inactive x3 months- no refills Forteo 20 mcg/dose (600 mcg/2.4 mL) subcutaneous pen injector RxNorm: 2886028 1 injection SQ daily 05/22/2016 05/30/2016 Inactive call pt with jaramillo first Forteo 20 mcg/dose (600 mcg/2.4 mL) subcutaneous pen injector RxNorm: 5666296 1 injection SQ daily 05/22/2016 05/21/2016 Inactive Prolia 60 mg/mL subcutaneous syringe RxNorm: 575372 1 Milliliter(s) SQ every 6 months 05/13/2016 07/21/2018 Inactive Please check jaramillo through insurance and let me know- Thanks! Mary Ellen alprazolam 1 mg tablet RxNorm: 757202 1 Tablet(s) PO TID 05/08/2016 11/01/2016 Inactive Lexapro 10 mg tablet RxNorm: 470094 TAKE 1 TABLET EVERY DAY 04/22/2016 08/20/2016 Inactive spironolactone 25 mg tablet RxNorm: 330946 TAKE 1 TABLET EVERY DAY 04/22/2016 11/03/2016 Inactive Diflucan 150 mg tablet RxNorm: 664974 1 Tablet(s) PO daily 03/20/2016 04/14/2016 Inactive Diflucan 150 mg tablet RxNorm: 044880 1 Tablet(s) PO daily 03/20/2016 03/19/2016 Inactive Augmentin 500 mg-125 mg tablet RxNorm: 072734 1 Tablet(s) PO TID 03/14/2016 03/23/2016 Inactive omeprazole 20 mg capsule,delayed release RxNorm: 990612 1 Tablet(s) PO BID 03/06/2016 09/01/2016 Inactive [SAVINGS FOR NON-COVERED DRUGS -- BIN:052253, PCN: ASPROD1, Group: XXXXX, ID# XXXXXXX, Questions: . THIS IS NOT INSURANCE.] amlodipine 5 mg tablet RxNorm: 552200 TAKE 1 TABLET EVERY DAY 03/01/2016 04/22/2016 Inactive omeprazole 20 mg tablet,delayed release RxNorm: 896466 1 Tablet(s) PO BID 02/27/2016 03/05/2016 Inactive [SAVINGS FOR NON-COVERED DRUGS -- BIN:171667, PCN: ASPROD1, Group: XXXXX, ID# XXXXXXX, Questions: . THIS IS NOT INSURANCE.] spironolactone 25 mg tablet RxNorm: 469033 TAKE 1 TABLET EVERY DAY 12/21/2015 04/21/2016 Inactive Lexapro 10 mg tablet RxNorm: 069959 1 Tablet(s) PO daily 12/19/2015 01/01/2016 Inactive Lexapro 10 mg tablet RxNorm: 837538 1 Tablet(s) PO daily 12/19/2015 02/09/2017 Inactive Lexapro 10 mg tablet RxNorm: 329535 1 Tablet(s) PO daily 12/19/2015 12/18/2015 Inactive alprazolam 1 mg tablet RxNorm: 440106 1 Tablet(s) PO TID 12/01/2015 02/28/2016 Inactive ibuprofen 800 mg tablet RxNorm: 169520 1 Tablet(s) PO TID 10/26/2015 10/20/2016 Inactive alprazolam 1 mg tablet RxNorm: 459940 1 Tablet(s) PO TID 08/23/2015 07/21/2018 Inactive spironolactone 25 mg tablet RxNorm: 281188 1 Tablet(s) PO daily 08/21/2015 12/20/2015 Inactive metoprolol tartrate 50 mg tablet RxNorm: 137408 1 Tablet(s) PO BID 08/10/2015 08/03/2016 Inactive [SAVINGS FOR NON-COVERED DRUGS -- BIN:776625, PCN: ASPROD1, Group: XXXXX, ID# XXXXXXX, Questions: . THIS IS NOT INSURANCE.] omeprazole 20 mg tablet,delayed release RxNorm: 737654 1 Tablet(s) PO BID 08/07/2015 02/02/2016 Inactive [SAVINGS FOR NON-COVERED DRUGS -- BIN:495589, PCN: ASPROD1, Group: XXXXX, ID# XXXXXXX, Questions: . THIS IS NOT INSURANCE.] Keflex 500 mg capsule RxNorm: 344686 1 Capsule(s) PO TID 07/10/2015 07/16/2015 Inactive alprazolam 1 mg tablet RxNorm: 219997 1 Tablet(s) PO TID 06/02/2015 08/22/2015 Inactive alprazolam 1 mg tablet RxNorm: 028479 1 Tablet(s) PO TID 03/29/2015 06/01/2015 Inactive amlodipine 5 mg tablet RxNorm: 244384 1 Tablet(s) PO daily 03/06/2015 02/29/2016 Inactive Nasonex 50 mcg/actuation [place] RxNorm: 439216 1 [place] NASAL daily 03/03/2015 03/02/2015 Inactive Keflex 500 mg capsule RxNorm: 911808 1 Capsule(s) PO TID 03/03/2015 03/02/2015 Inactive Nasonex 50 mcg/actuation [place] RxNorm: 258050 1 [place] NASAL daily 03/03/2015 05/01/2015 Inactive Keflex 500 mg capsule RxNorm: 489892 1 Capsule(s) PO TID 03/03/2015 03/05/2015 Inactive Carafate 1 gram tablet RxNorm: 530347 TAKE 1 TABLET FOUR TIMES DAILY 30 MINUTES BEFORE MEALS AND AT BEDTIME 02/28/2015 12/18/2015 Inactive Kenalog 40 mg/mL suspension for injection RxNorm: 7455201 Milliliter(s) Inj 02/07/2015 02/07/2015 Inactive [SAVINGS FOR NON-COVERED DRUGS -- BIN:554500, PCN: ASPROD1, Group: XXXXX, ID# XXXXXXX, Questions: . THIS IS NOT INSURANCE.] metoprolol tartrate 50 mg tablet RxNorm: 718506 1 Tablet(s) PO BID 02/07/2015 08/09/2015 Inactive [SAVINGS FOR NON-COVERED DRUGS -- BIN:874762, PCN: ASPROD1, Group: XXXXX, ID# XXXXXXX, Questions: . THIS IS NOT INSURANCE.] Carafate 1 gram tablet RxNorm: 297751 1 Tablet(s) PO QID 02/07/2015 02/27/2015 Inactive 30 min before meals and at bedtime omeprazole 20 mg tablet,delayed release RxNorm: 806170 1 Tablet(s) PO BID 02/07/2015 08/05/2015 Inactive [SAVINGS FOR NON-COVERED DRUGS -- BIN:187480, PCN: ASPROD1, Group: XXXXX, ID# XXXXXXX, Questions: . THIS IS NOT INSURANCE.] Vitamin D3 2,000 unit tablet RxNorm: 858283 1 Tablet(s) PO daily No Start Date Active aspirin 81 mg tablet RxNorm: 140317 1 Tablet(s) PO daily No Start Date Active amlodipine 2.5 mg tablet RxNorm: 643502 1 Tablet(s) PO daily No Start Date 03/05/2015 Inactive spironolactone 25 mg tablet RxNorm: 401264 1 Tablet(s) PO daily No Start Date 08/20/2015 Inactive cetirizine 10 mg tablet RxNorm: 6092759 1 Tablet(s) PO daily No Start Date 12/18/2015 Inactive metoprolol tartrate 50 mg tablet RxNorm: 551672 1 Tablet(s) PO daily No Start Date 02/06/2015 Inactive ipratropium bromide 0.06 % nasal spray RxNorm: 872984 nasal No Start Date 12/18/2015 Inactive alprazolam 1 mg tablet RxNorm: 535079 1 Tablet(s) PO TID No Start Date 03/28/2015 Inactive Prolia 60 mg/mL subcutaneous syringe RxNorm: 617542 1 Milliliter(s) SQ every 6 months No Start Date 05/12/2016 Inactive Please check jaramillo through insurance and let me know- Thanks! Mary Ellen ibuprofen 800 mg tablet RxNorm: 066172 1 Tablet(s) PO TID No Start Date 10/25/2015 Inactive Protonix 40 mg tablet,delayed release RxNorm: 995895 1 Tablet(s) PO daily No Start Date 03/05/2015 Inactive Vitamin B-12 1,000 mcg/mL injection solution RxNorm: 761889 1 Millil[place](s) Inj Q2 weeks x2 months and then monthly injections No Start Date 05/20/2018 Inactive loratadine 10 mg tablet RxNorm: 848070 1 Tablet(s) PO daily No Start Date 07/21/2018 Inactive Medication Administered Medication Codes Instructions Start Date Status Kenalog 40 mg/mL suspension for injection RxNorm: 8343918 [place] 09/15/2018 No longer Active cyanocobalamin (vit B-12) 1,000 mcg/mL injection solution RxNorm: 086843 1Milliliter 09/15/2018 No longer Active cyanocobalamin (vit B-12) 1,000 mcg/mL injection solution RxNorm: 561815 Milliliter 08/04/2018 No longer Active cyanocobalamin (vit B-12) 1,000 mcg/mL injection solution RxNorm: 639242 1Milliliter 07/16/2018 No longer Active cyanocobalamin (vit B-12) 1,000 mcg/mL injection solution RxNorm: 580409 Milliliter 07/01/2018 No longer Active cyanocobalamin (vit B-12) 1,000 mcg/mL injection solution RxNorm: 988760 Milliliter 06/15/2018 No longer Active cyanocobalamin (vit B-12) 1,000 mcg/mL injection solution RxNorm: 669327 Milliliter 06/02/2018 No longer Active cyanocobalamin (vit B-12) 1,000 mcg/mL injection solution RxNorm: 543616 Milliliter 05/21/2018 No longer Active Kenalog 40 mg/mL suspension for injection RxNorm: 3531010 1.5Milliliter 04/09/2018 No longer Active Kenalog 40 mg/mL suspension for injection RxNorm: 6514459 1Milliliter 10/16/2017 No longer Active Kenalog 40 mg/mL suspension for injection RxNorm: 7085043 Milliliter 02/07/2015 No longer Active Immunizations Vaccine [...] Item Item Code Result Date Comp Metabolic Ona535 NA 138 mEq/L 09/03/2017 Comp Metabolic Net567 K 3.9 mEq/L 09/03/2017 Comp Metabolic Wbb457 CL 102 mEq/L 09/03/2017 Comp Metabolic Jse507 CO2 32.0 mEq/L 09/03/2017 Comp Metabolic Qnj906 ANION GAP 8 09/03/2017 Comp Metabolic Yao500 GLUCOSE 89 mg/dL 09/03/2017 Comp Metabolic Lgo374 Creat 0.6 mg/dL 09/03/2017 Comp Metabolic Rbg620 eGFR 103 ml/min/1.73m2 09/03/2017 Comp Metabolic Uug524 BUN 10 mg/dL 09/03/2017 Comp Metabolic Nwf215 B/C Ratio 16.7 Ratio 09/03/2017 Comp Metabolic Iaj962 CALCIUM 8.9 mg/dL 09/03/2017 Comp Metabolic Ino922 ALK PHOS 141 U/L 09/03/2017 Comp Metabolic Fow311 AST(SGOT) 12 U/L 09/03/2017 Comp Metabolic Tmm174 ALT(SGPT) 7 U/L 09/03/2017 Comp Metabolic Rsl622 BILI T 0.6 mg/dL 09/03/2017 Comp Metabolic Dwt647 ALBUMIN 3.6 g/dL 09/03/2017 Comp Metabolic Nfj247 TPRO 6.6 g/dL 09/03/2017 Comp Metabolic Apb623 GLOB 3.0 g/dL 09/03/2017 Comp Metabolic Nvv433 A/G Ratio 1.2 Ratio 09/03/2017 Comp Metabolic Uxw832 Osmo 274 mOsmo 09/03/2017 Hepatic Ubi468 ALBUMIN 3.7 g/dL 08/11/2017 Hepatic Kwg018 TPRO 7.0 g/dL 08/11/2017 Hepatic Omx101 GLOB 3.3 g/dL 08/11/2017 Hepatic Xhw509 A/G Ratio 1.1 Ratio 08/11/2017 Hepatic Hrd570 ALK PHOS 85 U/L 08/11/2017 Hepatic Tor273 ALT(SGPT) 11 U/L 08/11/2017 Hepatic Lad611 AST(SGOT) 16 U/L 08/11/2017 Hepatic Oos199 BILI T 0.6 mg/dL 08/11/2017 Hepatic Dzz834 BILI D 0.1 mg/dL 08/11/2017 Hepatic Anl235 BILI I 0.5 mg/dL 08/11/2017 Hepatic Kgb254 ALBUMIN 3.1 g/dL 07/18/2017 Hepatic Gam774 TPRO 5.9 g/dL 07/18/2017 Hepatic Fcz429 GLOB 2.8 g/dL 07/18/2017 Hepatic Zaz749 A/G Ratio 1.1 Ratio 07/18/2017 Hepatic Rec889 ALK PHOS 123 U/L 07/18/2017 Hepatic Bac758 ALT(SGPT) 210 U/L 07/18/2017 Hepatic Epv386 AST(SGOT) 71 U/L 07/18/2017 Hepatic Edw811 BILI T 1.1 mg/dL 07/18/2017 Hepatic Oal066 BILI D 0.4 mg/dL 07/18/2017 Hepatic Jgp477 BILI I 0.7 mg/dL 07/18/2017 Cbc With [...] 32.4 pg 02/25/2017 Cbc With Differential Ord2 [place]% 7.6 % 02/25/2017 Cbc With Differential Ord2 [...] 1.22 K/ul 02/25/2017 Cbc With Differential Ord2 [place] ABS# 0.4 K/ul 02/25/2017 Cbc With Differential [...] 32.3 pg 01/02/2017 Cbc With Differential Ord2 [place]% 7.8 % 01/02/2017 Cbc With Differential Ord2 [...] 0.90 K/ul 01/02/2017 Cbc With Differential Ord2 [place] ABS# 0.4 K/ul 01/02/2017 Cbc With Differential Ord2 Eos ABS# 0.3 K/ul 01/02/2017 Cbc With Differential Ord2 Baso ABS# 0.0 K/ul 01/02/2017 Lipid Ord30 CHOL 139 mg/dL 12/13/2016 Lipid Ord30 HDL 48.0 mg/dl 12/13/2016 Lipid Ord30 TRIG 84 mg/dL 12/13/2016 Lipid Ord30 LDL 74 mg/dL 12/13/2016 Lipid Ord30 C/HDL 2.9 Ratio 12/13/2016 Comp Metabolic Pyh285 NA 137 mEq/L 12/13/2016 Comp Metabolic Bom014 K 4.8 mEq/L 12/13/2016 Comp Metabolic Bqs450 CL 101 mEq/L 12/13/2016 Comp Metabolic Ibv265 CO2 32.0 mEq/L 12/13/2016 Comp Metabolic Bjf699 ANION GAP 9 12/13/2016 Comp Metabolic Aoe864 GLUCOSE 95 mg/dL 12/13/2016 Comp Metabolic Ohk483 Creat 0.8 mg/dL 12/13/2016 Comp Metabolic Cpe099 eGFR 79 ml/min/1.73m2 12/13/2016 Comp Metabolic Thc878 BUN 15 mg/dL 12/13/2016 Comp Metabolic Ntl969 B/C Ratio 19.7 Ratio 12/13/2016 Comp Metabolic Zll041 CALCIUM 9.3 mg/dL 12/13/2016 Comp Metabolic Occ759 ALK PHOS 63 U/L 12/13/2016 Comp Metabolic Ngm581 AST(SGOT) 15 U/L 12/13/2016 Comp Metabolic Lnc437 ALT(SGPT) 10 U/L 12/13/2016 Comp Metabolic Zqf603 BILI T 0.7 mg/dL 12/13/2016 Comp Metabolic Zzl060 ALBUMIN 3.7 g/dL 12/13/2016 Comp Metabolic Roc685 TPRO 6.8 g/dL 12/13/2016 Comp Metabolic Evy645 GLOB 3.2 g/dL 12/13/2016 Comp Metabolic Xac253 A/G Ratio 1.2 Ratio 12/13/2016 Comp Metabolic Qcl215 Osmo 274 mOsmo 12/13/2016 Cbc With Differential [...] 31.9 pg 12/13/2016 Cbc With Differential Ord2 [place]% 9.9 % 12/13/2016 Cbc With Differential Ord2 [...] 1.17 K/ul 12/13/2016 Cbc With Differential Ord2 [place] ABS# 0.4 K/ul 12/13/2016 Cbc With Differential [...] 32.1 pg 12/19/2015 Cbc With Differential Ord2 [place]% 5.9 % 12/19/2015 Cbc With Differential Ord2 [...] 1.53 K/ul 12/19/2015 Cbc With Differential Ord2 [place] ABS# 0.3 K/ul 12/19/2015 Cbc With Differential [...] Ord30 C/HDL 2.8 Ratio 12/19/2015 Comp Metabolic Oyw722 NA 135 mEq/L 12/19/2015 Comp Metabolic Xrk156 K 4.1 mEq/L 12/19/2015 Comp Metabolic Rfi378 CL 99 mEq/L 12/19/2015 Comp Metabolic Azu483 CO2 27.0 mEq/L 12/19/2015 Comp Metabolic Jtl583 ANION GAP 13 12/19/2015 Comp Metabolic Rtw392 GLUCOSE 83 mg/dL 12/19/2015 Comp Metabolic Nbo915 Creat 0.7 mg/dL 12/19/2015 Comp Metabolic Lqz599 eGFR 88 ml/min/1.73m2 12/19/2015 Comp Metabolic Qlc208 BUN 12 mg/dL 12/19/2015 Comp Metabolic Iku630 B/C Ratio 17.4 Ratio 12/19/2015 Comp Metabolic Qty430 CALCIUM 9.0 mg/dL 12/19/2015 Comp Metabolic Xcz248 ALK PHOS 68 U/L 12/19/2015 Comp Metabolic Poe258 AST(SGOT) 16 U/L 12/19/2015 Comp Metabolic Gcy057 ALT(SGPT) 13 U/L 12/19/2015 Comp Metabolic Jux631 BILI T 0.7 mg/dL 12/19/2015 Comp Metabolic Rpm812 ALBUMIN 4.0 g/dL 12/19/2015 Comp Metabolic Fxj277 TPRO 7.0 g/dL 12/19/2015 Comp Metabolic Nuj396 GLOB 3.0 g/dL 12/19/2015 Comp Metabolic Dir940 A/G Ratio 1.3 Ratio 12/19/2015 Comp Metabolic Pti022 Osmo 269 mOsmo 12/19/2015 Review of Systems [...] Procedure Codes Date THER/PROPH/DIAG INJ SC/IM CPT-4: 34027 09/15/2018 VITAMIN B12 INJECTION CPT- 4: J3420 09/15/2018 TRIAMCINOLONE ACET INJ NOS CPT-4: J3301 09/15/2018 THER/PROPH/DIAG INJ SC/IM CPT-4: 67583 08/04/2018 VITAMIN B12 INJECTION CPT- 4: J3420 08/04/2018 THER/PROPH/DIAG INJ SC/IM CPT-4: 12000 07/16/2018 VITAMIN B12 INJECTION CPT- 4: J3420 07/16/2018 THER/PROPH/DIAG INJ SC/IM CPT-4: 23438 07/01/2018 VITAMIN B12 INJECTION CPT- 4: J3420 07/01/2018 ADMIN INFLUENZA VIRUS VAC CPT-4: G0008 06/25/2018 FLU VACC PRSV FREE INC ANTIG Formatting Model/CDA Sections, Assigned to/Miranda Ayala CPT-4: [id number] 06/25/2018 THER/PROPH/DIAG INJ SC/IM CPT-4: 78669 06/15/2018 VITAMIN B12 INJECTION CPT- 4: J3420 06/15/2018 THER/PROPH/DIAG INJ SC/IM CPT-4: 91451 06/02/2018 VITAMIN B12 INJECTION CPT- 4: J3420 06/02/2018 THER/PROPH/DIAG INJ SC/IM CPT-4: 82071 05/21/2018 VITAMIN B12 INJECTION CPT- 4: J3420 05/21/2018 TRIAMCINOLONE ACET INJ NOS CPT-4: J3301 04/09/2018 PPPS, SUBSEQ VISIT CPT- 4: G0439 12/18/2017 TRIAMCINOLONE ACET INJ NOS CPT-4: J3301 10/16/2017 DRAIN/INJECT JOINT/BURSA CPT-4: 57322 10/16/2017 PRESCRIP TRANSMIT VIA ERX SY CPT-4: G8553 05/05/2017 PRESCRIP TRANSMIT VIA ERX SY CPT-4: G8553 01/14/2017 PPPS, SUBSEQ VISIT CPT- 4: G0439 12/12/2016 PRESCRIP TRANSMIT VIA ERX SY CPT-4: G8553 10/15/2016 ADMIN PNEUMOCOCCAL VACCINE SNOMED CT: 75586146 CPT-4: G0009 08/28/2016 Pneumococcal Polysaccharide Vaccine, 23-Valent, Ad CPT-4: 97838 08/28/2016 PRESCRIP TRANSMIT VIA ERX SY CPT-4: G8553 03/14/2016 PRESCRIP TRANSMIT VIA ERX SY CPT-4: G8553 12/19/2015 THER/PROPH/DIAG INJ SC/IM CPT-4: 01583 02/07/2015 TRIAMCINOLONE ACET INJ NOS CPT-4: J3301 02/07/2015 Vital Signs Date Vital 09/15/2018 Blood Pressure 1: 106/70 Code: 8480-6 BMI: 24.9 Code: 79526-1 Heart Rate 1: 74 bpm Height: 5'1" SpO2: 95% Weight: 132 lbs 08/18/2018 Blood Pressure 1: 128/70 Code: 8480-6 BMI: 25.1 Code: 50645-1 Heart Rate 1: 74 bpm Height: 5'1" SpO2: 95% Weight: 133 lbs 08/04/2018 Blood Pressure 1: 120/80 Code: 8480-6 Blood Pressure 1: 122/80 Code: 8480-6 Blood Pressure 2: 120/82 Code: 8480-6 BMI: 25.5 Code: 85162-0 Heart Rate 1: 67 bpm Heart Rate 1: 63 bpm Height: 5'1" Weight: 135 lbs Weight: 07/22/2018 Blood Pressure 1: 120/82 Code: 8480-6 BMI: 24.9 Code: 87872-0 Heart Rate 1: 64 bpm Height: 5'1" SpO2: 95% Weight: 132 lbs 04/21/2018 Blood Pressure 1: 108/70 Code: 8480-6 BMI: 24.4 Code: 94989-0 Heart Rate 1: 62 bpm Height: 5'1" SpO2: 94% Weight: 129 lbs 04/09/2018 Blood Pressure 1: 138/86 Code: 8480-6 BMI: 25.5 Code: 37597-9 Heart Rate 1: 64 bpm Height: 5'1" SpO2: 99% Temperature: 36.4 (C) / 97.5 (F) Weight: 135 lbs 01/19/2018 Blood Pressure 1: 128/76 Code: 8480-6 BMI: 25.9 Code: 98113-1 Heart Rate 1: 65 bpm Height: 5'1" SpO2: 98% Weight: 137 lbs 12/18/2017 Blood Pressure 1: 144/82 Code: 8480-6 BMI: 26.1 Code: 09349-5 Heart Rate 1: 57 bpm Height: 5'1" SpO2: 97% Waist Measure (cm): 74 cm Weight: 138 lbs 10/16/2017 Blood Pressure 1: 142/88 Code: 8480-6 BMI: 25.5 Code: 35694-8 Heart Rate 1: 63 bpm Height: 5'1" SpO2: 97% Weight: 135 lbs 09/03/2017 Blood Pressure 1: 144/90 Code: 8480-6 BMI: 26.3 Code: 81236-0 Heart Rate 1: 91 bpm Height: 5'1" SpO2: 96% Weight: 139 lbs 07/31/2017 Blood Pressure 1: 136/90 Code: 8480-6 BMI: 26.3 Code: 47343-3 Height: 5'1" Weight: 139 lbs 07/18/2017 Blood Pressure 1: 136/84 Code: 8480-6 06/16/2017 Blood Pressure 1: 136/84 Code: 8480-6 BMI: 26.5 Code: 69324-8 Heart Rate 1: 72 bpm Height: 5'1" SpO2: 97% Weight: 140 lbs 05/28/2017 Blood Pressure 1: 138/78 Code: 8480-6 BMI: 26.1 Code: 07470-0 Heart Rate 1: 70 bpm Height: 5'1" SpO2: 98% Weight: 138 lbs 05/05/2017 Blood Pressure 1: 140/86 Code: 8480-6 BMI: 25.3 Code: 31073-5 Heart Rate 1: 66 bpm Height: 5'1" SpO2: 99% Weight: 134 lbs 03/13/2017 Blood Pressure 1: 126/74 Code: 8480-6 BMI: 25.3 Code: 57942-3 Heart Rate 1: 73 bpm Height: 5'1" SpO2: 98% Weight: 134 lbs 02/10/2017 Blood Pressure 1: 148/88 Code: 8480-6 BMI: 25.9 Code: 64087-6 Heart Rate 1: 84 bpm Height: 5'1" SpO2: 97% Weight: 137 lbs 01/14/2017 Blood Pressure 1: 134/86 Code: 8480-6 BMI: 25.7 Code: 16793-4 Heart Rate 1: 83 bpm Height: 5'1" SpO2: 95% Weight: 136 lbs 01/07/2017 Blood Pressure 1: 136/88 Code: 8480-6 BMI: 25.1 Code: 95301-5 Heart Rate 1: 86 bpm Height: 5'1" SpO2: 94% Weight: 133 lbs 01/02/2017 Blood Pressure 1: 122/68 Code: 8480-6 Blood Pressure 2: 116/78 Code: 8480-6 01/01/2017 Blood Pressure 1: 90/52 Code: 8480-6 BMI: 25.1 Code: 31111- 5 Heart Rate 1: 86 bpm Height: 5'1" SpO2: 99% Weight: 133 lbs 12/20/2016 Blood Pressure 1: 120/76 Code: 8480-6 12/12/2016 Blood Pressure 1: 130/72 Code: 8480-6 BMI: 24.8 Code: 40562-5 Heart Rate 1: 62 bpm Height: 5'1" SpO2: 98% Waist Measure (cm): 79 cm Weight: 131 lbs 12/11/2016 Blood Pressure 1: 132/70 Code: 8480-6 BMI: 24.8 Code: 17866-7 Heart Rate 1: 60 bpm Height: 5'1" Weight: 131 lbs 10/15/2016 Blood Pressure 1: 108/66 Code: 8480-6 BMI: 24.8 Code: 28942-4 Heart Rate 1: 60 bpm Height: 5'1" Weight: 131 lbs 07/17/2016 Blood Pressure 1: 128/82 Code: 8480-6 BMI: 25.3 Code: 38040-5 Heart Rate 1: 50 bpm Height: 5'2" Weight: 136 lbs 05/15/2016 Blood Pressure 1: 108/70 Code: 8480-6 BMI: 23.4 Code: 30605-2 Heart Rate 1: 54 bpm Height: 5'2" SpO2: 96% Weight: 126 lbs 04/23/2016 Blood Pressure 1: 112/60 Code: 8480-6 BMI: 23.6 Code: 74404-3 Heart Rate 1: 92 bpm Height: 5'2" SpO2: 95% Weight: 127 lbs 03/14/2016 Blood Pressure 1: 118/74 Code: 8480-6 BMI: 24.0 Code: 80091-8 Heart Rate 1: 51 bpm Height: 5'2" SpO2: 94% Temperature: 36.8 (C) / 98.3 (F) Weight: 129 lbs 02/19/2016 Blood Pressure 1: 110/62 Code: 8480-6 BMI: 23.4 Code: 49180-8 Heart Rate 1: 74 bpm Height: 5'2" SpO2: 97% Weight: 126 lbs 12/19/2015 Blood Pressure 1: 108/74 Code: 8480-6 BMI: 23.6 Code: 87859-0 Heart Rate 1: 52 bpm Height: 5'2" Weight: 127 lbs 03/06/2015 Blood Pressure 1: 136/88 Code: 8480-6 Heart Rate 1: 64 bpm Weight: 129 lbs 02/07/2015 Blood Pressure 1: 142/90 Code: 8480-6 BMI: 24.5 Code: 61640-7 Heart Rate 1: 82 bpm Height: 5'2" [...] data Encounters Encounter Performer Location Codes Date ([id number]) 24953 EST. PATIENT, LEVEL IV Diagnosis: Chest pain, unspecified[ICD10: R07.9] Diagnosis: Other vitamin B12 deficiency anemias[ICD10: D51.8] Diagnosis: Other allergic rhinitis[ICD10: J30.89] Mallorie Burden MD, [facility] CPT-4: 17876 09/15/2018 ([id number]) 48353 EST. PATIENT, LEVEL III Diagnosis: Essential (primary) hypertension[ICD10: I10] Diagnosis: Fecal urgency[ICD10: R15.2] Kim Burden MD, [facility] CPT-4: 59490 08/18/2018 ([id number]) 16874 EST. PATIENT, LEVEL IV Diagnosis: Other vitamin B12 deficiency anemias[ICD10: D51.8] Diagnosis: Essential (primary) hypertension[ICD10: I10] Diagnosis: Major depressive disorder, recurrent, mild[ICD10: F33.0] Diagnosis: Unsteadiness on feet[ICD10: R26.81] Kim Burden MD, [facility] CPT- 4: 21325 08/04/2018 ([id number]) 23608 EST. PATIENT, LEVEL IV Diagnosis: Fecal urgency[ICD10: R15.2] Diagnosis: Generalized abdominal pain[ICD10: R10.84] Diagnosis: Essential (primary) hypertension[ICD10: I10] Kim Burden MD, [facility] CPT-4: 45449 07/22/2018 ([id number]) 09445 EST. PATIENT, LEVEL IV Diagnosis: Essential (primary) hypertension[ICD10: I10] Diagnosis: Other emphysema[ICD10: J43.8] Diagnosis: Candidal stomatitis[ICD10: B37.0] Kim Burden MD, [facility] CPT- 4: 27108 04/21/2018 ([id number]) 87559 EST. PATIENT, LEVEL III Diagnosis: Chronic obstructive pulmonary disease with (acute) exacerbation[ICD10: J44.1] Mallorie Burden MD, [facility] CPT-4: 45612 04/09/2018 ([id number]) 09511 EST. PATIENT, LEVEL IV Diagnosis: Essential (primary) hypertension[ICD10: I10] Diagnosis: Other emphysema[ICD10: J43.8] Kim Burden MD, [facility] CPT-4: 20061 01/19/2018 ([id number]) 16221 EST. PATIENT, LEVEL IV Diagnosis: Essential (primary) hypertension[ICD10: I10] Diagnosis: Other emphysema[ICD10: J43.8] Diagnosis: Dependence on supplemental oxygen[ICD10: Z99.81] Diagnosis: Hypoxemia[ICD10: R09.02] Diagnosis: Pain in left knee[ICD10: M25.562] Diagnosis: Effusion, left knee[ICD10: M25.462] Kim Burden MD, [facility] CPT- 4: 77226 10/16/2017 [id number] EST. PATIENT, LEVEL III Diagnosis: Pain in thoracic spine[ICD10: M54.6] Pebbles Burden MD, [facility] CPT- 4: 19757 09/03/2017 ([id number]) 43227 EST. PATIENT, LEVEL III Diagnosis: Essential (primary) hypertension[ICD10: I10] Diagnosis: Other emphysema[ICD10: J43.8] Kim Burden MD, [facility] CPT-4: 15520 07/31/2017 ([id number]) Miscellaneous no charge Diagnosis: Essential (primary) hypertension[ICD10: I10] Mallorie Burden MD, [facility] CPT-4: 08198 07/18/2017 ([id number]) 75256 EST. PATIENT, LEVEL III Diagnosis: Pain in left knee[ICD10: M25.562] Diagnosis: Effusion, left knee[ICD10: M25.462] Mallorie Burden MD, [facility] CPT-4: 52800 06/16/2017 ([id number]) 41967 EST. PATIENT, LEVEL III Diagnosis: Essential (primary) hypertension[ICD10: I10] Diagnosis: Unsteadiness on feet[ICD10: R26.81] Kim Burden MD, [facility] CPT- 4: 77920 05/28/2017 ([id number]) 84594 EST. PATIENT, LEVEL IV Diagnosis: Essential (primary) hypertension[ICD10: I10] Diagnosis: Chronic obstructive pulmonary disease with acute lower respiratory infection[ICD10: J44.0] Kim Burden MD, [facility] CPT-4: 89826 05/05/2017 ([id number]) 06950 EST. PATIENT, LEVEL IV Diagnosis: Essential (primary) hypertension[ICD10: I10] Diagnosis: Major depressive disorder, recurrent, mild[ICD10: F33.0] Kim Burden MD, [facility] CPT-4: 13916 03/13/2017 ([id number]) 44869 EST. PATIENT, LEVEL IV Diagnosis: Essential (primary) hypertension[ICD10: I10] Diagnosis: Gastro-esophageal reflux disease without esophagitis[ICD10: K21.9] Diagnosis: Chronic obstructive pulmonary disease, unspecified[ICD10: J44.9] Kim Burden MD, [facility] CPT-4: 92856 02/10/2017 ([id number]) 86747 EST. PATIENT, LEVEL IV Diagnosis: Essential (primary) hypertension[ICD10: I10] Diagnosis: Gastro-esophageal reflux disease without esophagitis[ICD10: K21.9] Diagnosis: Chronic obstructive pulmonary disease with acute lower respiratory infection[ICD10: J44.0] Kim Burden MD, [facility] CPT-4: 43627 01/14/2017 35119 EST. PATIENT, LEVEL IV Diagnosis: Other fatigue[ICD10: R53.83] Diagnosis: Other malaise[ICD10: R53.81] Diagnosis: Headache[ICD10: R51] Diagnosis: Palpitations[ICD10: R00.2] Diagnosis: Dehydration[ICD10: E86.0] Pebbles Burden MD [facility] CPT-4: 70783 01/07/2017 ([id number]) Miscellaneous no charge Diagnosis: Essential (primary) hypertension[ICD10: I10] Pebbles Burden MD [facility] CPT-4: 87025 01/02/2017 93966 EST. PATIENT, LEVEL IV Diagnosis: Chronic obstructive pulmonary disease, unspecified[ICD10: J44.9] Diagnosis: Essential (primary) hypertension[ICD10: I10] Diagnosis: Other fatigue[ICD10: R53.83] Pebbles Burden MD [facility] CPT-4: 56847 01/01/2017 ([id number]) Miscellaneous no charge Diagnosis: Essential (primary) hypertension[ICD10: I10] Pebbles Burden MD [facility] CPT-4: 37350 12/20/2016 ([id number]) 44224 EST. 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 PATIENT, LEVEL IV Diagnosis: Essential (primary) hypertension[ICD10: I10] Diagnosis: Other allergic rhinitis[ICD10: J30.89] Diagnosis: Gastro-esophageal reflux disease without esophagitis[ICD10: K21.9] Kim Burden MD [facility] CPT-4: 66065 10/15/2016 ([id number]) 68001 EST. 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 PATIENT, LEVEL III Diagnosis: Pain in left hip[ICD10: M25.552] Diagnosis: Acute laryngopharyngitis[ICD10: J06.0] Kim Burden MD, [facility] CPT-4: 02995 05/15/2016 ([id number]) 91935 EST. PATIENT, LEVEL III Diagnosis: Fracture of unspecified parts of lumbosacral spine and pelvis, initial encounter for closed fracture[ICD10: S32.9XXA] Diagnosis: Essential (primary) hypertension[ICD10: I10] Kim Burden MD, [facility] CPT-4: 23187 04/23/2016 58718 EST. PATIENT, LEVEL IV Diagnosis: Acute laryngopharyngitis[ICD10: J06.0] Diagnosis: Other allergic rhinitis[ICD10: J30.89] [facility] CPT- 4: 45321 03/14/2016 58801 EST. PATIENT, LEVEL IV Diagnosis: Dysuria[ICD10: R30.0] Diagnosis: Left lower quadrant pain[ICD10: R10.32] [facility] CPT-4: 52587 02/19/2016 ([id number]) 64365 EST. 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 PATIENT, LEVEL IV Diagnosis: ESSENTIAL HYPERTENSION[ICD9: 401.9] Diagnosis: ACUTE URI[ICD9: 465.9] [facility] CPT-4: 13673 03/06/2015 ([id number]) OFFICE VISIT, NEW - LEVEL 4 Diagnosis: ESOPHAGEAL REFLUX[ICD9: 530.81] Diagnosis: ESSENTIAL HYPERTENSION[ICD9: 401.9] Diagnosis: COPD (chronic obstructive pulmonary disease)[ICD9: 496] Diagnosis: ALLERGIC RHINITIS[ICD9: 477.9] [facility] CPT-4: 44719 02/07/2015 Plan of Care Planned Activity Notes [...] the office 09/15/2018 Appointment: Mallorie Wetzel WPtel: [phone] [phone] (30 min) Complex 09/15/2018 Patient Education: Patient Medication Summary Completed 09/15/2018 Care Plan: Referral Order SNOMED-CT : [id number] Pending 09/15/2018 Appointment: Kim Burden WPtel: [facility]9 [facility] (15 min) Moderate 08/25/2018 Visit Plan: Hypertension [...] a day. 08/18/2018 Appointment: Kim Burden WPtel: [facility]1 [facility] (15 min) Moderate 08/18/2018 Patient Education: Patient [...] of anxiolytic. 08/04/2018 Appointment: [facility]den [facility]Ptel[facility] (15 min) Moderate 08/04/2018 Appointment: Nurse [...] home. 07/22/2018 Appointment: [phone] (15 min) Moderate 07/22/2018 Patient Education: [...] and swallow. 04/21/2018 Appointment: [phone] (15 min) Moderate 04/21/2018 Patient Education: [...] acute changes. 04/09/2018 [phone] (30 min) Complex 04/09/2018 Patient Education: [...] acute changes. 01/19/2018 Appointment: Kim Burden WPtel: [facility]1 [facility] (15 min) Moderate 01/19/2018 Patient Education: Patient Medication Summary Completed 01/19/2018 Appointment: Kim Burden WPtel: [phone] [facility] (15 min) Moderate 01/14/2018 Visit Plan: Medicare [...] care surrogate. 12/18/2017 Appointment: Pebbles Lund WPtel: [facility]3 [facility] [place] [address] - Annual Wellness Visit 12/18/2017 Patient Education: [...] at home. 10/16/2017 Appointment: Kim Burden WPtel: [facility] (15 min) Moderate 10/16/2017 Patient Education: [...] or concerns. 09/03/2017 Appointment: Pebbles Lund WPtel[facility] [place] (15 min) Moderate 09/03/2017 Patient Education: Patient Medication Summary Completed 09/03/2017 Appointment: [phone] [place] (15 min) Moderate 08/11/2017 Appointment: Kim Burden WPtel: [facility] (15 min) Moderate 08/11/2017 Patient Education: Patient [...] current treatment. 07/31/2017 Appointment: Kim Burden WPtel: [facility] (15 min) Moderate 07/31/2017 Patient Education: Patient Medication Summary Completed 07/31/2017 Appointment: Nurse Visit 07/18/2017 Patient Education: Patient Medication Summary Completed 07/18/2017 Patient Education: Patient Medication Summary Completed 07/18/2017 Appointment: Kim Burden WPtel: [facility] (15 min) Moderate 06/30/2017 Visit Plan: Effusion left knee-fall 2 weeks ago-recommend compression of joint and refer to Ortho for evaluation and treatment-will refer to Dr Pryor/Quinton Mccormick. Patient verbalized understanding of plan. 06/16/2017 Appointment: Mallorie Wetzel WPtel[phone] [place] (30 min) Complex 06/16/2017 Patient [...] when active. 05/28/2017 Appointment: Kim Burden WPtel: [phone] [facility] (15 min) Moderate 05/28/2017 Patient Education: Patient [...] changes. 05/05/2017 Appointment: Kim Burden WPtel: [phone] [facility] (15 min) Moderate 05/05/2017 Patient Education: Patient [...] medications. 03/13/2017 Appointment: Kim Burden WPtel: [phone] [facility] (15 min) Moderate 03/13/2017 Patient Education: Patient [...] worsening. 02/10/2017 Appointment: [facility]Ptel[phone] (15 min) Moderate 02/10/2017 Patient Education: [...] improving. 01/14/2017 Appointment: Kim Bur[facility]Ptel[phone] [facility] (15 min) Moderate 01/14/2017 Patient Education: [...] concerns. 01/07/2017 Appointment: Pebbles Lund [phone] (30 min) Complex 01/07/2017 Patient Education: [...] pressures. 01/01/2017 Appointment: Pebbles Lund [phone] (30 min) Complex 01/01/2017 Patient Education: [...] surrogate. 12/12/2016 Appointment: Pebbles Lund [facility] [facility] - Annual Wellness Visit 12/12/2016 Patient [...] time. 12/11/2016 Appointment: Kim Burden [facility]Ptel[phone] [facility] [place] (15 min) Moderate 12/11/2016 Patient Education: Patient Medication Summary Completed 12/11/2016 Appointment: Mall[facility] Wet[phone] [phone] (30 min) Complex 12/10/2016 Visit Plan: [...] not improving. 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 07/17/2016 Appointment: Kim Burden WPtel: [facility] (15 min) Moderate 07/17/2016 Patient Education: Patient Medication Summary Completed 07/17/2016 Appointment: Kim Burden WPtel: [facility]8 [facility] (15 min) Moderate 06/10/2016 Visit Plan: Hip pain - persistent but improving - continue with current treatment plan. Pt to call if her symptoms are not improving or if her hip pain worsens. URI symptoms - supportive care, use otc allergy medications. 05/15/2016 Appointment: Kim Burden WPtel: [facility] (15 min) Moderate 05/15/2016 Patient Education: Patient [...] not improving. 04/23/2016 Appointment: Kim Burden WPtel: [facility] (15 min) Moderate 04/23/2016 Patient Education: Patient Medication Summary Completed 04/23/2016 Patient Education: Hypertension Completed 04/23/2016 Care Plan: X-RAY EXAM OF ABDOMEN LOINC : 32203-3 Pending 03/18/2016 Visit Plan: URI - Pt [...] allergy spray. 03/14/2016 Appointment: Pebbles Lund WPtel: [facility] (30 min) Complex 03/14/2016 Patient Education: Patient Medication Summary Completed 03/14/2016 Patient Education: Patient Medication Summary Completed 02/29/2016 Visit Plan: Flank pain - pt is currently being treated for UTI, but is having continued left flank pain - will get KUB - pt is to notify clinic if symptoms do not improve, or with any concerns. 02/19/2016 Appointment: Pebbles Lund WPtel: [facility]9 [facility] (30 min) Complex 02/19/2016 Patient Education: Patient Medication Summary Completed 02/19/2016 Appointment: Kim Burden WPtel: [facility]8 [facility] (15 min) Moderate 01/22/2016 Visit Plan: Hypertension [...] improving. 12/19/2015 Appointment: [facility] Bur[facility]Ptel[phone] (15 min) Moderate 12/19/2015 Patient Education: [...] RX. 03/06/2015 Appointment: Kim Burden WPtel[phone] Follow up 03/06/2015 Patient Education: Patient [...] Completed 02/07/2015 Care Plan: SCREENINGMAMMOGRAPHYDIGITAL LOINC : 63178-9 Ordered 02/07/2015 Care Plan: COMPLETE CBC AUTOMATED LOINC : 41692-4 Ordered 02/07/2015 Referral: Consuelo Chavez Referral Appointment [...] with any acute changes, questions, or concerns. kenalog . Chest pain- refer [...] spray. B12 def-injection today in the office change the metoprolol to 1 pill in [...] in blood pressure readings at home. . COPD - chronic problem [...] her DOPA paperwork for health care surrogate. change the metoprolol to 1 pill in [...] increase to 1/2 packet twice a day. CHECK YOUR BLOOD PRESSURE AND PULSE AT [...] rx for nystatin swish and swallow. . COPD - chronic problem for this [...] is stable, monitor for acute changes. . Hip pain - persistent but improving - continue with current treatment plan. Pt to call if her symptoms are not improving or if her hip pain worsens. URI symptoms - supportive care, use otc allergy medications. Liquid Vitamin B12 or Vitamin B12 dissolving [...] advised to continue with oxygen when active. TAKE WITH FOOD AND PROBIOTIC (LUX Assure OR Sviral) . URI - Pt advised to increase [...] to help decrease GI upset./loose stools - [employer] or [employer] . Hypertension - well controlled - [...]
--- OUTSIDE RECORDS SUMMARY | 2019-04-06 09:26 | XMS REPORT | CCD ---
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 Name Role Phone PP Unavailable CCM Unavailable Summary Purpose Interface Exchange Insurance Providers Payer name Policy type / Coverage type Covered democrat ID Effective Begin Date Effective End Date WPS Medicare Part B Medicare Part B [id number] 2018 Unknown AETNA Medicare Part B [id number] Unknown Family history Brother Diagnosis Age At [...] Unknown 3 02/07/[address]: 3454827 Quit over 10 years ago 199302/07/2015 Number [...] (vit B-12) 1,000 mcg/mL injection solution RxNorm: 202420 1 Milliliter(s) Inj 09/15/2018 09/15/2018 Inactive Kenalog 40 mg/mL suspension for injection RxNorm: 1534954 Milliliter(s) Inj 09/15/2018 09/15/2018 Inactive alprazolam 1 mg tablet RxNorm: 381281 1/2 Tablet(s) PO TID 08/10/2018 05/06/2019 Active cyanocobalamin (vit B-12) 1,000 mcg/mL injection solution RxNorm: 189383 Milliliter(s) Inj 08/04/2018 08/04/2018 Inactive alprazolam 1 mg tablet RxNorm: 209195 1/2 Tablet(s) PO BID 08/04/2018 08/09/2018 Inactive cholestyramine (with sugar) 4 gram powder for susp in a packet RxNorm: 664071 1/2 to 1 packet PO TID take 30 minutes before meals 07/22/2018 07/16/2019 Active cyanocobalamin (vit B-12) 1,000 mcg/mL injection solution RxNorm: 607111 1 Milliliter(s) Inj 07/16/2018 07/16/2018 Inactive omeprazole 20 mg capsule,delayed release RxNorm: 473923 Capsule(s) TAKE 1 CAPSULE TWICE DAILY 07/01/2018 06/25/2019 Active cyanocobalamin (vit B-12) 1,000 mcg/mL injection solution RxNorm: 556951 Milliliter(s) Inj 07/01/2018 07/01/2018 Inactive omeprazole 20 mg capsule,delayed release RxNorm: 667460 TAKE 1 CAPSULE TWICE DAILY 07/01/2018 06/30/2018 Inactive alprazolam 1 mg tablet RxNorm: 892702 1 Tablet(s) PO TID 07/01/2018 08/03/2018 Inactive cyanocobalamin (vit B-12) 1,000 mcg/mL injection solution RxNorm: 948727 Milliliter(s) Inj 06/15/2018 06/15/2018 Inactive cyanocobalamin (vit B-12) 1,000 mcg/mL injection solution RxNorm: 327531 Milliliter(s) Inj 06/02/2018 06/02/2018 Inactive fluticasone 50 mcg/actuation nasal spray,suspension RxNorm: 3421781 1 [place] NASAL BID 05/26/2018 05/20/2019 Active Vitamin B-12 1,000 mcg/mL injection solution RxNorm: 039616 1 Milliliter(s) Inj Q2 weeks x2 months and then monthly injections 05/21/2018 No Stop Date Active cyanocobalamin (vit B-12) 1,000 mcg/mL injection solution RxNorm: 025855 Milliliter(s) Inj 05/21/2018 05/21/2018 Inactive fluticasone 50 mcg/actuation nasal spray,suspension RxNorm: 9197871 1 [place] NASAL BID 05/19/2018 05/25/2018 Inactive fluticasone 50 mcg/actuation nasal spray,suspension RxNorm: 0550344 1 [place] NASAL BID 05/18/2018 05/18/2018 Inactive fluticasone 50 mcg/actuation nasal spray,suspension RxNorm: 5010144 1 [place] NASAL BID 05/15/2018 05/17/2018 Inactive fluticasone 50 mcg/actuation nasal spray,suspension RxNorm: 0803958 1 [place] NASAL BID 05/15/2018 05/14/2018 Inactive nystatin 100,000 unit/mL oral suspension RxNorm: 615863 5 Milliliter(s) PO QID 04/21/2018 04/30/2018 Inactive Breo Ellipta 100 mcg-25 mcg/dose powder for inhalation RxNorm: 2647607 1 INH daily 04/09/2018 04/03/2019 Active please call patient with jaramillo before sending prednisone 20 mg tablet RxNorm: 391742 1 Tablet(s) PO BID 04/09/2018 04/13/2018 Inactive start tomorrow Kenalog 40 mg/mL suspension for injection RxNorm: 4539548 1.5 Milliliter(s) Inj 04/09/2018 04/09/2018 Inactive Breo Ellipta 100 mcg-25 mcg/dose powder for inhalation RxNorm: 9522891 1 INH daily 04/09/2018 04/08/2018 Inactive alprazolam 1 mg tablet RxNorm: 227195 1 Tablet(s) PO TID 03/13/2018 06/30/2018 Inactive losartan 100 mg tablet RxNorm: 747092 TAKE 1 TABLET EVERY EVENING 03/02/2018 02/13/2021 Active Ventolin HFA 90 mcg/actuation aerosol inhaler RxNorm: 835618 2 INH Q4-6H as needed 12/29/2017 02/26/2018 Inactive Ventolin HFA 90 mcg/actuation aerosol inhaler RxNorm: 057263 2 INH Q4-6H as needed 12/29/2017 12/28/2017 Inactive Diflucan 150 mg tablet RxNorm: 937201 1 Tablet(s) PO daily 11/03/2017 11/05/2017 Inactive please call pt to let herknow when to pick- up the med Keflex 500 mg capsule RxNorm: 332129 1 Capsule(s) PO TID 10/23/2017 10/29/2017 Inactive Kenalog 40 mg/mL suspension for injection RxNorm: 8485452 1 Milliliter(s) Inj 10/16/2017 10/16/2017 Inactive ibuprofen 800 mg tablet RxNorm: 519506 TAKE 1 TABLET THREE TIMES DAILY 10/15/2017 01/07/2019 Active Lexapro 10 mg tablet RxNorm: 298370 TAKE 1 TABLET EVERY DAY 10/15/2017 10/09/2018 Active hydrocodone 5 mg-acetaminophen 325 mg tablet RxNorm: 807471 1 Tablet(s) PO QID as needed 09/03/2017 07/21/2018 Inactive omeprazole 20 mg capsule,delayed release RxNorm: 549662 1 Capsule(s) PO BID 09/02/2017 06/30/2018 Inactive alprazolam 1 mg tablet RxNorm: 115305 1 Tablet(s) PO TID 09/02/2017 03/12/2018 Inactive metoprolol tartrate 50 mg tablet RxNorm: 867042 1/2 Tablet(s) PO BID 06/26/2017 06/20/2018 Inactive omeprazole 20 mg capsule,delayed release RxNorm: 001463 1 Capsule(s) PO BID 06/05/2017 09/01/2017 Inactive omeprazole 20 mg capsule,delayed release RxNorm: 359163 1 Capsule(s) PO BID 05/28/2017 06/04/2017 Inactive omeprazole 20 mg capsule,delayed release RxNorm: 124997 1 Capsule(s) PO QPM 05/27/2017 05/27/2017 Inactive Breo Ellipta 100 mcg-25 mcg/dose powder for inhalation RxNorm: 4467720 1 INH daily 05/05/2017 04/08/2018 Inactive alprazolam 1 mg tablet RxNorm: 273703 1 Tablet(s) PO TID 02/10/2017 08/07/2017 Inactive metoprolol tartrate 50 mg tablet RxNorm: 796279 1/2 Tablet(s) PO BID 02/10/2017 06/25/2017 Inactive losartan 100 mg tablet RxNorm: 044285 1 Tablet(s) PO QPM 02/10/2017 02/04/2018 Inactive losartan 50 mg tablet RxNorm: 728843 2 Tablet(s) PO QPM 01/23/2017 02/09/2017 Inactive Diflucan 150 mg tablet RxNorm: 469595 1 Tablet(s) PO daily 01/20/2017 01/22/2017 Inactive please call pt to let herknow when to pick- up the med Diflucan 150 mg tablet RxNorm: 617355 1 Tablet(s) PO daily 01/20/2017 01/19/2017 Inactive please call pt to let herknow when to pick- up the med losartan 50 mg tablet RxNorm: 995558 1 Tablet(s) PO QPM 01/14/2017 01/22/2017 Inactive Cipro 500 mg tablet RxNorm: 670170 1 Tablet(s) PO BID 01/08/2017 01/17/2017 Inactive Cipro 500 mg tablet RxNorm: 882200 1 Tablet(s) PO BID 01/08/2017 01/07/2017 Inactive Lexapro 10 mg tablet RxNorm: 249275 TAKE 1 TABLET EVERY DAY 12/20/2016 10/14/2017 Inactive metoprolol tartrate 50 mg tablet RxNorm: 929977 1 Tablet(s) PO in the morning and 1.5 pill at night 12/11/2016 01/13/2017 Inactive spironolactone 25 mg tablet RxNorm: 623886 TAKE 1 TABLET EVERY DAY 11/04/2016 07/21/2018 Inactive metoprolol tartrate 50 mg tablet RxNorm: 250664 TAKE 1 TABLET TWICE DAILY 10/29/2016 12/10/2016 Inactive ibuprofen 800 mg tablet RxNorm: 182014 TAKE 1 TABLET THREE TIMES DAILY 10/21/2016 10/14/2017 Inactive Astepro 0.15 % (205.5 mcg) nasal spray RxNorm: 7033634 1 [place] NASAL BID 10/15/2016 10/14/2016 Inactive Astepro 0.15 % (205.5 mcg) nasal spray RxNorm: 1144627 1 [place] NASAL BID 10/15/2016 07/21/2018 Inactive Astepro 0.15 % (205.5 mcg) nasal spray RxNorm: 0310959 1 [place] NASAL BID 10/15/2016 10/14/2016 Inactive omeprazole 20 mg capsule,delayed release RxNorm: 504287 1 Capsule(s) PO QPM 10/15/2016 05/26/2017 Inactive omeprazole 20 mg capsule,delayed release RxNorm: 073141 1 Capsule(s) QPM 10/15/2016 10/14/2016 Inactive omeprazole 20 mg capsule,delayed release RxNorm: 879044 TAKE 1 CAPSULE TWICE DAILY 09/02/2016 10/14/2016 Inactive Lexapro 10 mg tablet RxNorm: 139339 TAKE 1 TABLET EVERY DAY 08/21/2016 12/19/2016 Inactive calcitonin (salmon) 200 unit/actuation nasal spray RxNorm: 840687 1 [place] NASAL daily ONE SPRAY PER ONE NOSTRIL DAILY- ALTERNATE NOSTRILS DAILY 05/31/2016 05/30/2016 Inactive She will do this for 3 months- If she wants to do a 3 month supply at one time she can without refill calcitonin (salmon) 200 unit/actuation nasal spray RxNorm: 446585 1 [place] NASAL daily ONE SPRAY PER ONE NOSTRIL DAILY- ALTERNATE NOSTRILS DAILY 05/31/2016 07/30/2016 Inactive x3 months- no refills Forteo 20 mcg/dose (600 mcg/2.4 mL) subcutaneous pen injector RxNorm: 2046775 1 injection SQ daily 05/22/2016 05/30/2016 Inactive call pt with jaramillo first Forteo 20 mcg/dose (600 mcg/2.4 mL) subcutaneous pen injector RxNorm: 2818185 1 injection SQ daily 05/22/2016 05/21/2016 Inactive Prolia 60 mg/mL subcutaneous syringe RxNorm: 738223 1 Milliliter(s) SQ every 6 months 05/13/2016 07/21/2018 Inactive Please check jaramillo through insurance and let me know- Thanks! Mary Ellen alprazolam 1 mg tablet RxNorm: 351073 1 Tablet(s) PO TID 05/08/2016 11/01/2016 Inactive Lexapro 10 mg tablet RxNorm: 442047 TAKE 1 TABLET EVERY DAY 04/22/2016 08/20/2016 Inactive spironolactone 25 mg tablet RxNorm: 345937 TAKE 1 TABLET EVERY DAY 04/22/2016 11/03/2016 Inactive Diflucan 150 mg tablet RxNorm: 958504 1 Tablet(s) PO daily 03/20/2016 04/14/2016 Inactive Diflucan 150 mg tablet RxNorm: 614890 1 Tablet(s) PO daily 03/20/2016 03/19/2016 Inactive Augmentin 500 mg-125 mg tablet RxNorm: 227929 1 Tablet(s) PO TID 03/14/2016 03/23/2016 Inactive omeprazole 20 mg capsule,delayed release RxNorm: 287065 1 Tablet(s) PO BID 03/06/2016 09/01/2016 Inactive [SAVINGS FOR NON-COVERED DRUGS -- BIN:690791, PCN: ASPROD1, Group: XXXXX, ID# XXXXXXX, Questions: . THIS IS NOT INSURANCE.] amlodipine 5 mg tablet RxNorm: 584241 TAKE 1 TABLET EVERY DAY 03/01/2016 04/22/2016 Inactive omeprazole 20 mg tablet,delayed release RxNorm: 767654 1 Tablet(s) PO BID 02/27/2016 03/05/2016 Inactive [SAVINGS FOR NON-COVERED DRUGS -- BIN:882427, PCN: ASPROD1, Group: XXXXX, ID# XXXXXXX, Questions: . THIS IS NOT INSURANCE.] spironolactone 25 mg tablet RxNorm: 233559 TAKE 1 TABLET EVERY DAY 12/21/2015 04/21/2016 Inactive Lexapro 10 mg tablet RxNorm: 977329 1 Tablet(s) PO daily 12/19/2015 01/01/2016 Inactive Lexapro 10 mg tablet RxNorm: 062054 1 Tablet(s) PO daily 12/19/2015 02/09/2017 Inactive Lexapro 10 mg tablet RxNorm: 624204 1 Tablet(s) PO daily 12/19/2015 12/18/2015 Inactive alprazolam 1 mg tablet RxNorm: 122216 1 Tablet(s) PO TID 12/01/2015 02/28/2016 Inactive ibuprofen 800 mg tablet RxNorm: 137630 1 Tablet(s) PO TID 10/26/2015 10/20/2016 Inactive alprazolam 1 mg tablet RxNorm: 949743 1 Tablet(s) PO TID 08/23/2015 07/21/2018 Inactive spironolactone 25 mg tablet RxNorm: 912572 1 Tablet(s) PO daily 08/21/2015 12/20/2015 Inactive metoprolol tartrate 50 mg tablet RxNorm: 850879 1 Tablet(s) PO BID 08/10/2015 08/03/2016 Inactive [SAVINGS FOR NON-COVERED DRUGS -- BIN:438471, PCN: ASPROD1, Group: XXXXX, ID# XXXXXXX, Questions: . THIS IS NOT INSURANCE.] omeprazole 20 mg tablet,delayed release RxNorm: 502634 1 Tablet(s) PO BID 08/07/2015 02/02/2016 Inactive [SAVINGS FOR NON-COVERED DRUGS -- BIN:613490, PCN: ASPROD1, Group: XXXXX, ID# XXXXXXX, Questions: . THIS IS NOT INSURANCE.] Keflex 500 mg capsule RxNorm: 172659 1 Capsule(s) PO TID 07/10/2015 07/16/2015 Inactive alprazolam 1 mg tablet RxNorm: 826005 1 Tablet(s) PO TID 06/02/2015 08/22/2015 Inactive alprazolam 1 mg tablet RxNorm: 994226 1 Tablet(s) PO TID 03/29/2015 06/01/2015 Inactive amlodipine 5 mg tablet RxNorm: 723764 1 Tablet(s) PO daily 03/06/2015 02/29/2016 Inactive Nasonex 50 mcg/actuation [place] RxNorm: 017160 1 [place] NASAL daily 03/03/2015 03/02/2015 Inactive Keflex 500 mg capsule RxNorm: 602168 1 Capsule(s) PO TID 03/03/2015 03/02/2015 Inactive Nasonex 50 mcg/actuation [place] RxNorm: 812988 1 [place] NASAL daily 03/03/2015 05/01/2015 Inactive Keflex 500 mg capsule RxNorm: 967287 1 Capsule(s) PO TID 03/03/2015 03/05/2015 Inactive Carafate 1 gram tablet RxNorm: 611209 TAKE 1 TABLET FOUR TIMES DAILY 30 MINUTES BEFORE MEALS AND AT BEDTIME 02/28/2015 12/18/2015 Inactive Kenalog 40 mg/mL suspension for injection RxNorm: 2852622 Milliliter(s) Inj 02/07/2015 02/07/2015 Inactive [SAVINGS FOR NON-COVERED DRUGS -- BIN:428828, PCN: ASPROD1, Group: XXXXX, ID# XXXXXXX, Questions: . THIS IS NOT INSURANCE.] metoprolol tartrate 50 mg tablet RxNorm: 460086 1 Tablet(s) PO BID 02/07/2015 08/09/2015 Inactive [SAVINGS FOR NON-COVERED DRUGS -- BIN:189674, PCN: ASPROD1, Group: XXXXX, ID# XXXXXXX, Questions: . THIS IS NOT INSURANCE.] Carafate 1 gram tablet RxNorm: 095600 1 Tablet(s) PO QID 02/07/2015 02/27/2015 Inactive 30 min before meals and at bedtime omeprazole 20 mg tablet,delayed release RxNorm: 427479 1 Tablet(s) PO BID 02/07/2015 08/05/2015 Inactive [SAVINGS FOR NON-COVERED DRUGS -- BIN:264912, PCN: ASPROD1, Group: XXXXX, ID# XXXXXXX, Questions: . THIS IS NOT INSURANCE.] Vitamin D3 2,000 unit tablet RxNorm: 220219 1 Tablet(s) PO daily No Start Date Active aspirin 81 mg tablet RxNorm: 272471 1 Tablet(s) PO daily No Start Date Active amlodipine 2.5 mg tablet RxNorm: 397371 1 Tablet(s) PO daily No Start Date 03/05/2015 Inactive spironolactone 25 mg tablet RxNorm: 617605 1 Tablet(s) PO daily No Start Date 08/20/2015 Inactive cetirizine 10 mg tablet RxNorm: 6027172 1 Tablet(s) PO daily No Start Date 12/18/2015 Inactive metoprolol tartrate 50 mg tablet RxNorm: 173594 1 Tablet(s) PO daily No Start Date 02/06/2015 Inactive ipratropium bromide 0.06 % nasal spray RxNorm: 689321 nasal No Start Date 12/18/2015 Inactive alprazolam 1 mg tablet RxNorm: 547939 1 Tablet(s) PO TID No Start Date 03/28/2015 Inactive Prolia 60 mg/mL subcutaneous syringe RxNorm: 098442 1 Milliliter(s) SQ every 6 months No Start Date 05/12/2016 Inactive Please check jaramillo through insurance and let me know- Thanks! Mary Ellen ibuprofen 800 mg tablet RxNorm: 241899 1 Tablet(s) PO TID No Start Date 10/25/2015 Inactive Protonix 40 mg tablet,delayed release RxNorm: 894476 1 Tablet(s) PO daily No Start Date 03/05/2015 Inactive Vitamin B-12 1,000 mcg/mL injection solution RxNorm: 333814 1 Milliliter(s) Inj Q2 weeks x2 months and then monthly injections No Start Date 05/20/2018 Inactive loratadine 10 mg tablet RxNorm: 339318 1 Tablet(s) PO daily No Start Date 07/21/2018 Inactive Medication Administered Medication Codes Instructions Start Date Status Kenalog 40 mg/mL suspension for injection RxNorm: 9904716 Milliliter 09/15/2018 Active cyanocobalamin (vit B-12) 1,000 mcg/mL injection solution RxNorm: 421590 1Milliliter 09/15/2018 Active cyanocobalamin (vit B-12) 1,000 mcg/mL injection solution RxNorm: 282176 Milliliter 08/04/2018 No longer Active cyanocobalamin (vit B-12) 1,000 mcg/mL injection solution RxNorm: 846971 1Milliliter 07/16/2018 No longer Active cyanocobalamin (vit B-12) 1,000 mcg/mL injection solution RxNorm: 158575 Milliliter 07/01/2018 No longer Active cyanocobalamin (vit B-12) 1,000 mcg/mL injection solution RxNorm: 656287 Milliliter 06/15/2018 No longer Active cyanocobalamin (vit B-12) 1,000 mcg/mL injection solution RxNorm: 885637 Milliliter 06/02/2018 No longer Active cyanocobalamin (vit B-12) 1,000 mcg/mL injection solution RxNorm: 727816 Milliliter 05/21/2018 No longer Active Kenalog 40 mg/mL suspension for injection RxNorm: 5260008 1.5Milliliter 04/09/2018 No longer Active Kenalog 40 mg/mL suspension for injection RxNorm: 4416105 1Milliliter 10/16/2017 No longer Active Kenalog 40 mg/mL suspension for injection RxNorm: 2327288 Milliliter 02/07/2015 No longer Active Immunizations Vaccine [...] Item Item Code Result Date Comp Metabolic Dfv944 NA 138 mEq/L 09/03/2017 Comp Metabolic Gpg925 K 3.9 mEq/L 09/03/2017 Comp Metabolic Rbf022 CL 102 mEq/L 09/03/2017 Comp Metabolic Uhm478 CO2 32.0 mEq/L 09/03/2017 Comp Metabolic Wgl942 ANION GAP 8 09/03/2017 Comp Metabolic Ipo881 GLUCOSE 89 mg/dL 09/03/2017 Comp Metabolic Crn403 Creat 0.6 mg/dL 09/03/2017 Comp Metabolic Fsr286 eGFR 103 ml/min/1.73m2 09/03/2017 Comp Metabolic Jlk253 BUN 10 mg/dL 09/03/2017 Comp Metabolic Yuv681 B/C Ratio 16.7 Ratio 09/03/2017 Comp Metabolic Ddw792 CALCIUM 8.9 mg/dL 09/03/2017 Comp Metabolic Mub095 ALK PHOS 141 U/L 09/03/2017 Comp Metabolic Miv897 AST(SGOT) 12 U/L 09/03/2017 Comp Metabolic Doc273 ALT(SGPT) 7 U/L 09/03/2017 Comp Metabolic Gfu130 BILI T 0.6 mg/dL 09/03/2017 Comp Metabolic Cxp496 ALBUMIN 3.6 g/dL 09/03/2017 Comp Metabolic Wvw619 TPRO 6.6 g/dL 09/03/2017 Comp Metabolic Gur314 GLOB 3.0 g/dL 09/03/2017 Comp Metabolic Don616 A/G Ratio 1.2 Ratio 09/03/2017 Comp Metabolic Lwn579 Osmo 274 mOsmo 09/03/2017 Hepatic Lan079 ALBUMIN 3.7 g/dL 08/11/2017 Hepatic Soq908 TPRO 7.0 g/dL 08/11/2017 Hepatic Yyk082 GLOB 3.3 g/dL 08/11/2017 Hepatic Whn372 A/G Ratio 1.1 Ratio 08/11/2017 Hepatic Gjx677 ALK PHOS 85 U/L 08/11/2017 Hepatic Ube376 ALT(SGPT) 11 U/L 08/11/2017 Hepatic Jlo005 AST(SGOT) 16 U/L 08/11/2017 Hepatic Myk140 BILI T 0.6 mg/dL 08/11/2017 Hepatic Cyt260 BILI D 0.1 mg/dL 08/11/2017 Hepatic Mzd577 BILI I 0.5 mg/dL 08/11/2017 Hepatic Kpk612 ALBUMIN 3.1 g/dL 07/18/2017 Hepatic Efm959 TPRO 5.9 g/dL 07/18/2017 Hepatic Cwn714 GLOB 2.8 g/dL 07/18/2017 Hepatic Uud538 A/G Ratio 1.1 Ratio 07/18/2017 Hepatic Gqc208 ALK PHOS 123 U/L 07/18/2017 Hepatic Ozh067 ALT(SGPT) 210 U/L 07/18/2017 Hepatic Ofw457 AST(SGOT) 71 U/L 07/18/2017 Hepatic Ijd013 BILI T 1.1 mg/dL 07/18/2017 Hepatic Wwn678 BILI D 0.4 mg/dL 07/18/2017 Hepatic Bmi488 BILI I 0.7 mg/dL 07/18/2017 Cbc With [...] 32.4 pg 02/25/2017 Cbc With Differential Ord2 [place]% 7.6 % 02/25/2017 Cbc With Differential Ord2 [...] 1.22 K/ul 02/25/2017 Cbc With Differential Ord2 [place] ABS# 0.4 K/ul 02/25/2017 Cbc With Differential [...] 32.3 pg 01/02/2017 Cbc With Differential Ord2 [place]% 7.8 % 01/02/2017 Cbc With Differential Ord2 [...] 0.90 K/ul 01/02/2017 Cbc With Differential Ord2 [place] ABS# 0.4 K/ul 01/02/2017 Cbc With Differential Ord2 Eos ABS# 0.3 K/ul 01/02/2017 Cbc With Differential Ord2 Baso ABS# 0.0 K/ul 01/02/2017 Lipid Ord30 CHOL 139 mg/dL 12/13/2016 Lipid Ord30 HDL 48.0 mg/dl 12/13/2016 Lipid Ord30 TRIG 84 mg/dL 12/13/2016 Lipid Ord30 LDL 74 mg/dL 12/13/2016 Lipid Ord30 C/HDL 2.9 Ratio 12/13/2016 Comp Metabolic Fer157 NA 137 mEq/L 12/13/2016 Comp Metabolic Bxu703 K 4.8 mEq/L 12/13/2016 Comp Metabolic Uwd146 CL 101 mEq/L 12/13/2016 Comp Metabolic Pzi254 CO2 32.0 mEq/L 12/13/2016 Comp Metabolic Qee706 ANION GAP 9 12/13/2016 Comp Metabolic Qad747 GLUCOSE 95 mg/dL 12/13/2016 Comp Metabolic Uco929 Creat 0.8 mg/dL 12/13/2016 Comp Metabolic Sia225 eGFR 79 ml/min/1.73m2 12/13/2016 Comp Metabolic Eqc356 BUN 15 mg/dL 12/13/2016 Comp Metabolic Osl271 B/C Ratio 19.7 Ratio 12/13/2016 Comp Metabolic Wbf991 CALCIUM 9.3 mg/dL 12/13/2016 Comp Metabolic Ydn517 ALK PHOS 63 U/L 12/13/2016 Comp Metabolic Lvx597 AST(SGOT) 15 U/L 12/13/2016 Comp Metabolic Ldo499 ALT(SGPT) 10 U/L 12/13/2016 Comp Metabolic Xhi238 BILI T 0.7 mg/dL 12/13/2016 Comp Metabolic Eiw296 ALBUMIN 3.7 g/dL 12/13/2016 Comp Metabolic Axf958 TPRO 6.8 g/dL 12/13/2016 Comp Metabolic Vny652 GLOB 3.2 g/dL 12/13/2016 Comp Metabolic Bnf754 A/G Ratio 1.2 Ratio 12/13/2016 Comp Metabolic Wqn836 Osmo 274 mOsmo 12/13/2016 Cbc With Differential [...] 31.9 pg 12/13/2016 Cbc With Differential Ord2 [place]% 9.9 % 12/13/2016 Cbc With Differential Ord2 [...] 1.17 K/ul 12/13/2016 Cbc With Differential Ord2 [place] ABS# 0.4 K/ul 12/13/2016 Cbc With Differential [...] 32.1 pg 12/19/2015 Cbc With Differential Ord2 [place]% 5.9 % 12/19/2015 Cbc With Differential Ord2 [...] 1.53 K/ul 12/19/2015 Cbc With Differential Ord2 [place] ABS# 0.3 K/ul 12/19/2015 Cbc With Differential [...] Ord30 C/HDL 2.8 Ratio 12/19/2015 Comp Metabolic Rvj022 NA 135 mEq/L 12/19/2015 Comp Metabolic Myi732 K 4.1 mEq/L 12/19/2015 Comp Metabolic Yrf287 CL 99 mEq/L 12/19/2015 Comp Metabolic Tsc186 CO2 27.0 mEq/L 12/19/2015 Comp Metabolic Xwq712 ANION GAP 13 12/19/2015 Comp Metabolic Jbt927 GLUCOSE 83 mg/dL 12/19/2015 Comp Metabolic Keg916 Creat 0.7 mg/dL 12/19/2015 Comp Metabolic Clt780 eGFR 88 ml/min/1.73m2 12/19/2015 Comp Metabolic Xxh227 BUN 12 mg/dL 12/19/2015 Comp Metabolic Myd873 B/C Ratio 17.4 Ratio 12/19/2015 Comp Metabolic Mrp143 CALCIUM 9.0 mg/dL 12/19/2015 Comp Metabolic Mau483 ALK PHOS 68 U/L 12/19/2015 Comp Metabolic Vis857 AST(SGOT) 16 U/L 12/19/2015 Comp Metabolic Jkg588 ALT(SGPT) 13 U/L 12/19/2015 Comp Metabolic Oai296 BILI T 0.7 mg/dL 12/19/2015 Comp Metabolic Ell352 ALBUMIN 4.0 g/dL 12/19/2015 Comp Metabolic Fcu702 TPRO 7.0 g/dL 12/19/2015 Comp Metabolic Bfa904 GLOB 3.0 g/dL 12/19/2015 Comp Metabolic Szr320 A/G Ratio 1.3 Ratio 12/19/2015 Comp Metabolic Jdg487 Osmo 269 mOsmo 12/19/2015 Review of Systems [...] Procedure Codes Date THER/PROPH/DIAG INJ SC/IM CPT-4: 13882 09/15/2018 VITAMIN B12 INJECTION CPT- 4: J3420 09/15/2018 TRIAMCINOLONE ACET INJ NOS CPT-4: J3301 09/15/2018 THER/PROPH/DIAG INJ SC/IM CPT-4: 05794 08/04/2018 VITAMIN B12 INJECTION CPT- 4: J3420 08/04/2018 THER/PROPH/DIAG INJ SC/IM CPT-4: 66354 07/16/2018 VITAMIN B12 INJECTION CPT- 4: J3420 07/16/2018 THER/PROPH/DIAG INJ SC/IM CPT-4: 03070 07/01/2018 VITAMIN B12 INJECTION CPT- 4: J3420 07/01/2018 ADMIN INFLUENZA VIRUS VAC CPT-4: G0008 06/25/2018 FLU VACC PRSV FREE INC ANTIG Formatting Model/CDA Sections, Assigned to/Miranda Ayala CPT-4: 86297Fmcpauf 06/25/2018 THER/PROPH/DIAG INJ SC/IM CPT-4: 46693 06/15/2018 VITAMIN B12 INJECTION CPT- 4: J3420 06/15/2018 THER/PROPH/DIAG INJ SC/IM CPT-4: 98518 06/02/2018 VITAMIN B12 INJECTION CPT- 4: J3420 06/02/2018 THER/PROPH/DIAG INJ SC/IM CPT-4: 70381 05/21/2018 VITAMIN B12 INJECTION CPT- 4: J3420 05/21/2018 TRIAMCINOLONE ACET INJ NOS CPT-4: J3301 04/09/2018 PPPS, SUBSEQ VISIT CPT- 4: G0439 12/18/2017 TRIAMCINOLONE ACET INJ NOS CPT-4: J3301 10/16/2017 DRAIN/INJECT JOINT/BURSA CPT-4: 52665 10/16/2017 PRESCRIP TRANSMIT VIA ERX SY CPT-4: G8553 05/05/2017 PRESCRIP TRANSMIT VIA ERX SY CPT-4: G8553 01/14/2017 PPPS, SUBSEQ VISIT CPT- 4: G0439 12/12/2016 PRESCRIP TRANSMIT VIA ERX SY CPT-4: G8553 10/15/2016 ADMIN PNEUMOCOCCAL VACCINE SNOMED CT: 07974026 CPT-4: G0009 08/28/2016 Pneumococcal Polysaccharide Vaccine, 23-Valent, Ad CPT-4: 17245 08/28/2016 PRESCRIP TRANSMIT VIA ERX SY CPT-4: G8553 03/14/2016 PRESCRIP TRANSMIT VIA ERX SY CPT-4: G8553 12/19/2015 THER/PROPH/DIAG INJ SC/IM CPT-4: 86185 02/07/2015 TRIAMCINOLONE ACET INJ NOS CPT-4: J3301 02/07/2015 Vital Signs Date Vital 09/15/2018 Blood Pressure 1: 106/70 Code: 8480-6 BMI: 24.9 Code: 29763-1 Heart Rate 1: 74 bpm Height: 5'1" SpO2: 95% Weight: 132 lbs 08/18/2018 Blood Pressure 1: 128/70 Code: 8480-6 BMI: 25.1 Code: 97406-9 Heart Rate 1: 74 bpm Height: 5'1" SpO2: 95% Weight: 133 lbs 08/04/2018 Blood Pressure 1: 120/80 Code: 8480-6 Blood Pressure 1: 122/80 Code: 8480-6 Blood Pressure 2: 120/82 Code: 8480-6 BMI: 25.5 Code: 01022-1 Heart Rate 1: 67 bpm Heart Rate 1: 63 bpm Height: 5'1" Weight: 135 lbs Weight: 07/22/2018 Blood Pressure 1: 120/82 Code: 8480-6 BMI: 24.9 Code: 81170-0 Heart Rate 1: 64 bpm Height: 5'1" SpO2: 95% Weight: 132 lbs 04/21/2018 Blood Pressure 1: 108/70 Code: 8480-6 BMI: 24.4 Code: 42474-6 Heart Rate 1: 62 bpm Height: 5'1" SpO2: 94% Weight: 129 lbs 04/09/2018 Blood Pressure 1: 138/86 Code: 8480-6 BMI: 25.5 Code: 82999-7 Heart Rate 1: 64 bpm Height: 5'1" SpO2: 99% Temperature: 36.4 (C) / 97.5 (F) Weight: 135 lbs 01/19/2018 Blood Pressure 1: 128/76 Code: 8480-6 BMI: 25.9 Code: 00754-8 Heart Rate 1: 65 bpm Height: 5'1" SpO2: 98% Weight: 137 lbs 12/18/2017 Blood Pressure 1: 144/82 Code: 8480-6 BMI: 26.1 Code: 38440-0 Heart Rate 1: 57 bpm Height: 5'1" SpO2: 97% Waist Measure (cm): 74 cm Weight: 138 lbs 10/16/2017 Blood Pressure 1: 142/88 Code: 8480-6 BMI: 25.5 Code: 47491-0 Heart Rate 1: 63 bpm Height: 5'1" SpO2: 97% Weight: 135 lbs 09/03/2017 Blood Pressure 1: 144/90 Code: 8480-6 BMI: 26.3 Code: 22684-3 Heart Rate 1: 91 bpm Height: 5'1" SpO2: 96% Weight: 139 lbs 07/31/2017 Blood Pressure 1: 136/90 Code: 8480-6 BMI: 26.3 Code: 86201-4 Height: 5'1" Weight: 139 lbs 07/18/2017 Blood Pressure 1: 136/84 Code: 8480-6 06/16/2017 Blood Pressure 1: 136/84 Code: 8480-6 BMI: 26.5 Code: 09408-2 Heart Rate 1: 72 bpm Height: 5'1" SpO2: 97% Weight: 140 lbs 05/28/2017 Blood Pressure 1: 138/78 Code: 8480-6 BMI: 26.1 Code: 02561-8 Heart Rate 1: 70 bpm Height: 5'1" SpO2: 98% Weight: 138 lbs 05/05/2017 Blood Pressure 1: 140/86 Code: 8480-6 BMI: 25.3 Code: 19417-2 Heart Rate 1: 66 bpm Height: 5'1" SpO2: 99% Weight: 134 lbs 03/13/2017 Blood Pressure 1: 126/74 Code: 8480-6 BMI: 25.3 Code: 16389-4 Heart Rate 1: 73 bpm Height: 5'1" SpO2: 98% Weight: 134 lbs 02/10/2017 Blood Pressure 1: 148/88 Code: 8480-6 BMI: 25.9 Code: 08287-0 Heart Rate 1: 84 bpm Height: 5'1" SpO2: 97% Weight: 137 lbs 01/14/2017 Blood Pressure 1: 134/86 Code: 8480-6 BMI: 25.7 Code: 77982-2 Heart Rate 1: 83 bpm Height: 5'1" SpO2: 95% Weight: 136 lbs 01/07/2017 Blood Pressure 1: 136/88 Code: 8480-6 BMI: 25.1 Code: 12224-8 Heart Rate 1: 86 bpm Height: 5'1" SpO2: 94% Weight: 133 lbs 01/02/2017 Blood Pressure 1: 122/68 Code: 8480-6 Blood Pressure 2: 116/78 Code: 8480-6 01/01/2017 Blood Pressure 1: 90/52 Code: 8480-6 BMI: 25.1 Code: 75484- 5 Heart Rate 1: 86 bpm Height: 5'1" SpO2: 99% Weight: 133 lbs 12/20/2016 Blood Pressure 1: 120/76 Code: 8480-6 12/12/2016 Blood Pressure 1: 130/72 Code: 8480-6 BMI: 24.8 Code: 62780-8 Heart Rate 1: 62 bpm Height: 5'1" SpO2: 98% Waist Measure (cm): 79 cm Weight: 131 lbs 12/11/2016 Blood Pressure 1: 132/70 Code: 8480-6 BMI: 24.8 Code: 04396-5 Heart Rate 1: 60 bpm Height: 5'1" Weight: 131 lbs 10/15/2016 Blood Pressure 1: 108/66 Code: 8480-6 BMI: 24.8 Code: 41111-8 Heart Rate 1: 60 bpm Height: 5'1" Weight: 131 lbs 07/17/2016 Blood Pressure 1: 128/82 Code: 8480-6 BMI: 25.3 Code: 49754-8 Heart Rate 1: 50 bpm Height: 5'2" Weight: 136 lbs 05/15/2016 Blood Pressure 1: 108/70 Code: 8480-6 BMI: 23.4 Code: 37921-9 Heart Rate 1: 54 bpm Height: 5'2" SpO2: 96% Weight: 126 lbs 04/23/2016 Blood Pressure 1: 112/60 Code: 8480-6 BMI: 23.6 Code: 90344-2 Heart Rate 1: 92 bpm Height: 5'2" SpO2: 95% Weight: 127 lbs 03/14/2016 Blood Pressure 1: 118/74 Code: 8480-6 BMI: 24.0 Code: 84911-4 Heart Rate 1: 51 bpm Height: 5'2" SpO2: 94% Temperature: 36.8 (C) / 98.3 (F) Weight: 129 lbs 02/19/2016 Blood Pressure 1: 110/62 Code: 8480-6 BMI: 23.4 Code: 55101-3 Heart Rate 1: 74 bpm Height: 5'2" SpO2: 97% Weight: 126 lbs 12/19/2015 Blood Pressure 1: 108/74 Code: 8480-6 BMI: 23.6 Code: 54492-4 Heart Rate 1: 52 bpm Height: 5'2" Weight: 127 lbs 03/06/2015 Blood Pressure 1: 136/88 Code: 8480-6 Heart Rate 1: 64 bpm Weight: 129 lbs 02/07/2015 Blood Pressure 1: 142/90 Code: 8480-6 BMI: 24.5 Code: 45349-1 Heart Rate 1: 82 bpm Height: 5'2" [...] data Encounters Encounter Performer Location Codes Date ([id number]) 62814 EST. PATIENT, LEVEL IV Diagnosis: Chest pain, unspecified[ICD10: R07.9] Diagnosis: Other vitamin B12 deficiency anemias[ICD10: D51.8] Diagnosis: Other allergic rhinitis[ICD10: J30.89] Mallorie Burden MD, [facility] CPT-4: 33838 09/15/2018 ([id number]) 00513 EST. PATIENT, LEVEL III Diagnosis: Essential (primary) hypertension[ICD10: I10] Diagnosis: Fecal urgency[ICD10: R15.2] Kim Burden MD, [facility] CPT-4: 11134 08/18/2018 ([id number]) 57214 EST. PATIENT, LEVEL IV Diagnosis: Other vitamin B12 deficiency anemias[ICD10: D51.8] Diagnosis: Essential (primary) hypertension[ICD10: I10] Diagnosis: Major depressive disorder, recurrent, mild[ICD10: F33.0] Diagnosis: Unsteadiness on feet[ICD10: R26.81] Kim Burden MD, [facility] CPT- 4: 28768 08/04/2018 ([id number]) 81105 EST. PATIENT, LEVEL IV Diagnosis: Fecal urgency[ICD10: R15.2] Diagnosis: Generalized abdominal pain[ICD10: R10.84] Diagnosis: Essential (primary) hypertension[ICD10: I10] Kim Burden MD, [facility] CPT-4: 54314 07/22/2018 ([id number]) 50898 EST. PATIENT, LEVEL IV Diagnosis: Essential (primary) hypertension[ICD10: I10] Diagnosis: Other emphysema[ICD10: J43.8] Diagnosis: Candidal stomatitis[ICD10: B37.0] Kim Burden MD, [facility] CPT- 4: 25654 04/21/2018 ([id number]) 92621 EST. PATIENT, LEVEL III Diagnosis: Chronic obstructive pulmonary disease with (acute) exacerbation[ICD10: J44.1] Mallorie Burden MD, [facility] CPT-4: 74015 04/09/2018 ([id number]) 34171 EST. PATIENT, LEVEL IV Diagnosis: Essential (primary) hypertension[ICD10: I10] Diagnosis: Other emphysema[ICD10: J43.8] Kim Burden MD, [facility] CPT-4: 40287 01/19/2018 ([id number]) 81750 EST. PATIENT, LEVEL IV Diagnosis: Essential (primary) hypertension[ICD10: I10] Diagnosis: Other emphysema[ICD10: J43.8] Diagnosis: Dependence on supplemental oxygen[ICD10: Z99.81] Diagnosis: Hypoxemia[ICD10: R09.02] Diagnosis: Pain in left knee[ICD10: M25.562] Diagnosis: Effusion, left knee[ICD10: M25.462] Kim Burden MD, [facility] CPT- 4: 44720 10/16/2017 56714 EST. PATIENT, LEVEL III Diagnosis: Pain in thoracic spine[ICD10: M54.6] Pebbles Burden MD, [facility] CPT- 4: 36882 09/03/2017 ([id number]) 35460 EST. PATIENT, LEVEL III Diagnosis: Essential (primary) hypertension[ICD10: I10] Diagnosis: Other emphysema[ICD10: J43.8] Kim Burden MD, [facility] CPT-4: 15449 07/31/2017 ([id number]) Miscellaneous no charge Diagnosis: Essential (primary) hypertension[ICD10: I10] Mallorie Burden MD, [facility] CPT-4: 22032 07/18/2017 ([id number]) 39784 EST. PATIENT, LEVEL III Diagnosis: Pain in left knee[ICD10: M25.562] Diagnosis: Effusion, left knee[ICD10: M25.462] Mallorie Burden MD, [facility] CPT-4: 31166 06/16/2017 ([id number]) 78117 EST. PATIENT, LEVEL III Diagnosis: Essential (primary) hypertension[ICD10: I10] Diagnosis: Unsteadiness on feet[ICD10: R26.81] Kim Burden MD, [facility] CPT- 4: 33558 05/28/2017 ([id number]) 24737 EST. PATIENT, LEVEL IV Diagnosis: Essential (primary) hypertension[ICD10: I10] Diagnosis: Chronic obstructive pulmonary disease with acute lower respiratory infection[ICD10: J44.0] Kim Burden MD, [facility] CPT-4: 77656 05/05/2017 ([id number]) 32846 EST. 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 PATIENT, LEVEL IV Diagnosis: Essential (primary) hypertension[ICD10: I10] Diagnosis: Gastro-esophageal reflux disease without esophagitis[ICD10: K21.9] Diagnosis: Chronic obstructive pulmonary disease, unspecified[ICD10: J44.9] Kim Burden MD, [facility] CPT-4: 56417 02/10/2017 ([id number]) 04785 EST. PATIENT, LEVEL IV Diagnosis: Essential (primary) hypertension[ICD10: I10] Diagnosis: Gastro-esophageal reflux disease without esophagitis[ICD10: K21.9] Diagnosis: Chronic obstructive pulmonary disease with acute lower respiratory infection[ICD10: J44.0] Kim Burden MD, [facility] CPT-4: 37704 01/14/2017 51445 EST. PATIENT, LEVEL IV Diagnosis: Other fatigue[ICD10: R53.83] Diagnosis: Other malaise[ICD10: R53.81] Diagnosis: Headache[ICD10: R51] Diagnosis: Palpitations[ICD10: R00.2] Diagnosis: Dehydration[ICD10: E86.0] Pebbles Burden MD [facility] CPT-4: 58668 01/07/2017 ([id number]) Miscellaneous no charge Diagnosis: Essential (primary) hypertension[ICD10: I10] Pebbles Burden MD [facility] CPT-4: 20277 01/02/2017 95697 EST. PATIENT, LEVEL IV Diagnosis: Chronic obstructive pulmonary disease, unspecified[ICD10: J44.9] Diagnosis: Essential (primary) hypertension[ICD10: I10] Diagnosis: Other fatigue[ICD10: R53.83] Pebbles Burden MD [facility] CPT-4: 52533 01/01/2017 ([id number]) Miscellaneous no charge Diagnosis: Essential (primary) hypertension[ICD10: I10] Pebbles Burden MD [facility] CPT-4: 84804 12/20/2016 ([id number]) 33659 EST. PATIENT, LEVEL IV Diagnosis: Essential (primary) hypertension[ICD10: I10] Diagnosis: Major depressive disorder, recurrent, mild[ICD10: F33.0] Diagnosis: Headache[ICD10: R51] Diagnosis: Other fatigue[ICD10: R53.83] Kim Burden MD [facility] CPT-4: 10913 12/11/2016 ([id number]) 84010 EST. PATIENT, LEVEL IV Diagnosis: Essential (primary) hypertension[ICD10: I10] Diagnosis: Other allergic rhinitis[ICD10: J30.89] Diagnosis: Gastro-esophageal reflux disease without esophagitis[ICD10: K21.9] Kim Burden MD [facility] CPT-4: 88630 10/15/2016 ([id number]) 48589 EST. 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 PATIENT, LEVEL III Diagnosis: Pain in left hip[ICD10: M25.552] Diagnosis: Acute laryngopharyngitis[ICD10: J06.0] Kim Burden MD, [facility] CPT-4: 61815 05/15/2016 ([id number]) 18425 EST. PATIENT, LEVEL III Diagnosis: Fracture of unspecified parts of lumbosacral spine and pelvis, initial encounter for closed fracture[ICD10: S32.9XXA] Diagnosis: Essential (primary) hypertension[ICD10: I10] Kim Burden MD, [facility] CPT-4: 39909 04/23/2016 22558 EST. PATIENT, LEVEL IV Diagnosis: Acute laryngopharyngitis[ICD10: J06.0] Diagnosis: Other allergic rhinitis[ICD10: J30.89] Pebbles Burden MD, [facility] CPT- 4: 89004 03/14/2016 93950 EST. PATIENT, LEVEL IV Diagnosis: Dysuria[ICD10: R30.0] Diagnosis: Left lower quadrant pain[ICD10: R10.32] Pebbles Burden MD, [facility] CPT-4: 94605 02/19/2016 ([id number]) 37505 EST. 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 PATIENT, LEVEL IV Diagnosis: ESSENTIAL HYPERTENSION[ICD9: 401.9] Diagnosis: ACUTE URI[ICD9: 465.9] Kim Burden MD, [facility] CPT-4: 37640 03/06/2015 ([id number]) OFFICE VISIT, NEW - LEVEL 4 Diagnosis: ESOPHAGEAL REFLUX[ICD9: 530.81] Diagnosis: ESSENTIAL HYPERTENSION[ICD9: 401.9] Diagnosis: COPD (chronic obstructive pulmonary disease)[ICD9: 496] Diagnosis: ALLERGIC RHINITIS[ICD9: 477.9] [facility] CPT-4: 05833 02/07/2015 Plan of Care Planned Activity Notes Codes Status Date Visit Plan: Chest pain- refer to Dr [...] B12 def-injection today in the office 09/15/2018 Patient Education: Patient Medication Summary Completed 09/15/2018 Care Plan: Referral Order SNOMED-CT : [id number] Pending 09/15/2018 Appointment: Kim Burden WPtel: [phone] [facility] (15 min) Moderate 08/25/2018 Visit Plan: Hypertension [...] a day. 08/18/2018 Appointment: Kim Burden WPtel: [facility] (15 min) Moderate 08/18/2018 Patient Education: Patient [...] Burden WPtel: [phone] [facility] (15 min) Moderate 08/04/2018 Appointment: Nurse Visit [...] at home. 07/22/2018 Appointment: Kim Burden WPtel: [facility] [place] (15 min) Moderate 07/22/2018 Patient Education: [...] swallow. 04/21/2018 Appointment: [phone] (15 min) Moderate 04/21/2018 Patient Education: Patient [...] changes. 04/09/2018 [phone] [place] (30 min) Complex 04/09/2018 Patient [...] acute changes. 01/19/2018 Appointment: Kim Burden WPtel: [address] [place], [place] [phone] (15 min) Moderate 01/19/2018 Patient Education: Patient Medication Summary Completed 01/19/2018 Appointment: Kim Burden WPtel: [address] [place], [place] [phone] (15 min) Moderate 01/14/2018 Visit Plan: Medicare [...] care surrogate. 12/18/2017 Appointment: Pebbles Lund WPtel: [facility]9 [facility] [facility] - Annual Wellness Visit 12/18/2017 Patient Education: [...] at home. 10/16/2017 Appointment: Kim Burden WPtel: [facility]5 [facility] (15 min) Moderate 10/16/2017 Patient Education: Patient [...] or concerns. 09/03/2017 Appointment: Pebbles Lund WPtel: [facility] (15 min) Moderate 09/03/2017 Patient Education: Patient Medication Summary Completed 09/03/2017 Appointment: Kim Burden WPtel: [facility] [place] (15 min) Moderate 08/11/2017 Appointment: [facility]Ptel: [phone] (15 min) Moderate 08/11/2017 Patient Education: Patient [...] current treatment. 07/31/2017 Appointment: Kim Burden WPtel: [phone] [facility] (15 min) Moderate 07/31/2017 Patient Education: Patient Medication Summary Completed 07/31/2017 Appointment: Nurse Visit 07/18/2017 Patient Education: Patient Medication Summary Completed 07/18/2017 Patient Education: Patient Medication Summary Completed 07/18/2017 Appointment: Kim Burden WPtel: [phone] [facility] (15 min) Moderate 06/30/2017 Visit Plan: Effusion left knee-fall 2 weeks ago-recommend compression of joint and refer to Ortho for evaluation and treatment-will refer to Dr Pryor/Quinton Mccormick. Patient verbalized understanding of plan. 06/16/2017 Appointment: Mallorie Wetzel WPtel: [phone] [phone] [place] (30 min) Complex 06/16/2017 Patient [...] when active. 05/28/2017 Appointment: Kim Burden WPtel: [phone] [facility] [place] (15 min) Moderate 05/28/2017 Patient Education: [...] changes. 05/05/2017 Appointment: [facility]el[phone] (15 min) Moderate 05/05/2017 Patient Education: Patient [...] medications. 03/13/2017 Appointment: [facility]Ptel: [phone] (15 min) Moderate 03/13/2017 Patient Education: Patient [...] worsening. 02/10/2017 Appointment: Kim Bur[facility]Ptel: [phone] (15 min) Moderate 02/10/2017 Patient Education: Patient [...] improving. 01/14/2017 Appointment: Kim Bur[facility]Ptel: [phone] (15 min) Moderate 01/14/2017 Patient Education: Patient [...] concerns. 01/07/2017 Appointment: [facility]ebbles Lund [phone] (30 min) Complex 01/07/2017 Patient Education: [...] pressures. 01/01/2017 Appointment: Pebbles Lund [phone] (30 min) Complex 01/01/2017 Patient Education: [...] surrogate. 12/12/2016 App[facility]ment: [facility]ebbles Lund [phone] [facility] - Annual Wellness Visit 12/12/2016 Patient Education: [...] time. 12/11/2016 Appointment: [facility] Bur[facility]Ptel: [phone] (15 min) Moderate 12/11/2016 Patient Education: Patient Medication Summary Completed 12/11/2016 Appointment: [phone] (30 min) Complex 12/10/2016 Visit [...] improving. 10/15/2016 Appointment: Kim Burden WPtel: [phone] [facility] (15 min) Moderate 10/15/2016 Patient Education: Patient [...] restaurant. 07/17/2016 Appointment: Kim Burden WPtel: [phone] [facility] (15 min) Moderate 07/17/2016 Patient Education: Patient Medication Summary Completed 07/17/2016 Appointment: Kim Burden WPtel: [facility] (15 min) Moderate 06/10/2016 Visit Plan: Hip pain - persistent but improving - continue with current treatment plan. Pt to call if her symptoms are not improving or if her hip pain worsens. URI symptoms - supportive care, use otc allergy medications. 05/15/2016 Appointment: Kim Burden WPtel: [facility]4 [facility] [place] (15 min) Moderate 05/15/2016 Patient Education: [...] Burden WPtel: [phone] [facility] (15 min) Moderate 04/23/2016 Patient Education: Patient Medication Summary Completed 04/23/2016 Patient Education: Hypertension Completed 04/23/2016 Care Plan[facility] Pending 03/18/2016 Visit Plan: URI - Pt [...] allergy spray. 03/14/2016 Appointment: Pebbles Lund WPtel: [facility]2 [facility] (30 min) Complex 03/14/2016 Patient Education: Patient Medication Summary Completed 03/14/2016 Patient Education: Patient Medication Summary Completed 02/29/2016 Visit Plan: Flank pain - pt is currently being treated for UTI, but is having continued left flank pain - will get KUB - pt is to notify clinic if symptoms do not improve, or with any concerns. 02/19/2016 Appointment: Pebbles Lund WPtel: [facility]8 [facility] (30 min) Complex 02/19/2016 Patient Education: Patient Medication Summary Completed 02/19/2016 Appointment: Kim Burden WPtel: [facility] (15 min) Moderate 01/22/2016 Visit Plan: Hypertension [...] improving. 12/19/2015 Appointment: Kim Burden WPtel: [phone] [facility] (15 min) Moderate 12/19/2015 Patient Education: Patient [...] RX. 03/06/2015 Appointment: Kim Burden WPtel: [phone] [facility] Follow up 03/06/2015 Patient Education: Patient Medication [...] Completed 02/07/2015 Care Plan: SCREENINGMAMMOGRAPHYDIGITAL LOINC : 34578-9 Ordered 02/07/2015 Care Plan: COMPLETE CBC AUTOMATED LOINC : 15682-0 Ordered 02/07/2015 Referral: Consuelo Chavez Referral Appointment [...] to help decrease GI upset./loose stools - [facility] or [facility] . Hypertension - well controlled - continue [...] care surrogate. TAKE WITH FOOD AND [employer] ([email or web address]) . URI - Pt advised to increase [...]
--- OUTSIDE RECORDS SUMMARY | 2019-04-06 09:31 | XMS REPORT | CCD ---
Author Author Mallorie Wetzel Organization Kim Burden MD, [facility] Address [address] [place] [address] Phone Care Team Providers Care Correctional Officer Name Role Phone PP Unavailable CCM Unavailable Summary Purpose Interface Exchange Insurance Providers Payer name Policy type / Coverage type Covered democrat ID Effective Begin Date Effective End Date WPS Medicare Part B Medicare Part B [id number] 2018 Unknown AETNA Medicare Part B [id number] Unknown Family history Brother Diagnosis Age At [...] 02/07/2015 Employment Unknown Currently employed works at [employer] 02/07/[address]: 2043363 Quit over 10 years ago 199302/07/2015 Number [...] ICD-9: 296.31 ICD-10: F33.0 Active 07/16/2016 Unknown Other vitamin B12 deficiency anemias ICD-9: 281.1 ICD-10: D51.8 Active 06/02/2018 Unknown Unsteadiness on feet ICD- 9: 781.2 ICD-10: R26.81 Active 05/28/2017 Unknown Generalized abdominal pain ICD-9: 789.07 ICD-10: R10.84 Active 07/22/2018 Unknown Encounter for immunization ICD-9: V03.82 ICD-10: Z23 Active 08/27/2016 Unknown Vitamin B12 deficiency anemia, unspecified ICD-9: 281.1 ICD-10: D51.9 Active 05/21/2018 Unknown Candidal stomatitis ICD- 9: 112.0 ICD-10: B37.0 Active 04/21/2018 Unknown Other emphysema ICD-9: 492.8 ICD-10: J43.8 Active 07/31/2017 Unknown Chronic obstructive pulmonary disease with (acute) [...] ICD-9: 401.9 ICD-10: I10 Active 02/06/2015 Unknown Other allergic rhinitis ICD-9: 477.9 ICD-10: J30.89 Active 02/06/2015 Unknown Acute laryngopharyngitis ICD-9: 465.9 [...] mild ICD-9: 296.31 ICD-10: F33.0 07/16/2016 Active Other vitamin B12 deficiency anemias ICD-9: 281.1 ICD-10: D51.8 06/02/2018 Active Unsteadiness on feet ICD- 9: 781.2 ICD-10: R26.81 05/28/2017 Active Generalized abdominal pain ICD-9: 789.07 ICD-10: R10.84 07/22/2018 Active Encounter for immunization ICD-9: V03.82 ICD-10: Z23 08/27/2016 Active Vitamin B12 deficiency anemia, unspecified ICD-9: 281.1 ICD-10: D51.9 05/21/2018 Active Candidal stomatitis ICD- 9: 112.0 ICD-10: B37.0 04/21/2018 Active Other emphysema ICD-9: 492.8 ICD-10: J43.8 07/31/2017 Active Chronic obstructive pulmonary disease with (acute) [...] hypertension ICD-9: 401.9 ICD-10: I10 02/06/2015 Active Other allergic rhinitis ICD-9: 477.9 ICD-10: J30.89 02/06/2015 Active Acute laryngopharyngitis ICD-9: 465.9 ICD-10: [...] Fill Instructions alprazolam 1 mg tablet RxNorm: 828768 1/2 Tablet(s) PO TID 08/10/2018 05/06/2019 Active cyanocobalamin (vit B-12) 1,000 mcg/mL injection solution RxNorm: 199904 Milliliter(s) Inj 08/04/2018 08/04/2018 Inactive alprazolam 1 mg tablet RxNorm: 892559 1/2 Tablet(s) PO BID 08/04/2018 08/09/2018 Inactive cholestyramine (with sugar) 4 gram powder for susp in a packet RxNorm: 938298 1/2 to 1 packet PO TID take 30 minutes before meals 07/22/2018 07/16/2019 Active cyanocobalamin (vit B-12) 1,000 mcg/mL injection solution RxNorm: 149208 1 Milliliter(s) Inj 07/16/2018 07/16/2018 Inactive omeprazole 20 mg capsule,delayed release RxNorm: 404444 Capsule(s) TAKE 1 CAPSULE TWICE DAILY 07/01/2018 06/25/2019 Active cyanocobalamin (vit B-12) 1,000 mcg/mL injection solution RxNorm: 086932 Milliliter(s) Inj 07/01/2018 07/01/2018 Inactive omeprazole 20 mg capsule,delayed release RxNorm: 344728 TAKE 1 CAPSULE TWICE DAILY 07/01/2018 06/30/2018 Inactive alprazolam 1 mg tablet RxNorm: 357408 1 Tablet(s) PO TID 07/01/2018 08/03/2018 Inactive cyanocobalamin (vit B-12) 1,000 mcg/mL injection solution RxNorm: 282776 Milliliter(s) Inj 06/15/2018 06/15/2018 Inactive cyanocobalamin (vit B-12) 1,000 mcg/mL injection solution RxNorm: 888600 Milliliter(s) Inj 06/02/2018 06/02/2018 Inactive fluticasone 50 mcg/actuation nasal spray,suspension RxNorm: 2661619 1 [place] NASAL BID 05/26/2018 05/20/2019 Active Vitamin B-12 1,000 mcg/mL injection solution RxNorm: 243086 1 Milliliter(s) Inj Q2 weeks x2 months and then monthly injections 05/21/2018 No Stop Date Active cyanocobalamin (vit B-12) 1,000 mcg/mL injection solution RxNorm: 351841 Milliliter(s) Inj 05/21/2018 05/21/2018 Inactive fluticasone 50 mcg/actuation nasal spray,suspension RxNorm: 3129426 1 [place] NASAL BID 05/19/2018 05/25/2018 Inactive fluticasone 50 mcg/actuation nasal spray,suspension RxNorm: 1351299 1 [place] NASAL BID 05/18/2018 05/18/2018 Inactive fluticasone 50 mcg/actuation nasal spray,suspension RxNorm: 1623975 1 [place] NASAL BID 05/15/2018 05/17/2018 Inactive fluticasone 50 mcg/actuation nasal spray,suspension RxNorm: 7707021 1 [place] NASAL BID 05/15/2018 05/14/2018 Inactive nystatin 100,000 unit/mL oral suspension RxNorm: 074549 5 [place](s) PO QID 04/21/2018 04/30/2018 Inactive Breo Ellipta 100 mcg-25 mcg/dose powder for inhalation RxNorm: 3800803 1 INH daily 04/09/2018 04/03/2019 Active please call patient with jaramillo before sending prednisone 20 mg tablet RxNorm: 659518 1 Tablet(s) PO BID 04/09/2018 04/13/2018 Inactive start tomorrow Kenalog 40 mg/mL suspension for injection RxNorm: 2735750 1.5 Milliliter(s) Inj 04/09/2018 04/09/2018 Inactive Breo Ellipta 100 mcg-25 mcg/dose powder for inhalation RxNorm: 8868120 1 INH daily 04/09/2018 04/08/2018 Inactive alprazolam 1 mg tablet RxNorm: 965337 1 Tablet(s) PO TID 03/13/2018 06/30/2018 Inactive losartan 100 mg tablet RxNorm: 669493 TAKE 1 TABLET EVERY EVENING 03/02/2018 02/13/2021 Active Ventolin HFA 90 mcg/actuation aerosol inhaler RxNorm: 657184 2 INH Q4-6H as needed 12/29/2017 02/26/2018 Inactive Ventolin HFA 90 mcg/actuation aerosol inhaler RxNorm: 014512 2 INH Q4-6H as needed 12/29/2017 12/28/2017 Inactive Diflucan 150 mg tablet RxNorm: 410820 1 Tablet(s) PO daily 11/03/2017 11/05/2017 Inactive please call pt to let herknow when to pick- up the med Keflex 500 mg capsule RxNorm: 191983 1 Capsule(s) PO TID 10/23/2017 10/29/2017 Inactive Kenalog 40 mg/mL suspension for injection RxNorm: 1142139 1 Milliliter(s) Inj 10/16/2017 10/16/2017 Inactive ibuprofen 800 mg tablet RxNorm: 626773 TAKE 1 TABLET THREE TIMES DAILY 10/15/2017 01/07/2019 Active Lexapro 10 mg tablet RxNorm: 832400 TAKE 1 TABLET EVERY DAY 10/15/2017 10/09/2018 Active hydrocodone 5 mg-acetaminophen 325 mg tablet RxNorm: 710533 1 Tablet(s) PO QID as needed 09/03/2017 07/21/2018 Inactive omeprazole 20 mg capsule,delayed release RxNorm: 689319 1 Capsule(s) PO BID 09/02/2017 06/30/2018 Inactive alprazolam 1 mg tablet RxNorm: 851507 1 Tablet(s) PO TID 09/02/2017 03/12/2018 Inactive metoprolol tartrate 50 mg tablet RxNorm: 173575 1/2 Tablet(s) PO BID 06/26/2017 06/20/2018 Inactive omeprazole 20 mg capsule,delayed release RxNorm: 859594 1 Capsule(s) PO BID 06/05/2017 09/01/2017 Inactive omeprazole 20 mg capsule,delayed release RxNorm: 817123 1 Capsule(s) PO BID 05/28/2017 06/04/2017 Inactive omeprazole 20 mg capsule,delayed release RxNorm: 358766 1 Capsule(s) PO QPM 05/27/2017 05/27/2017 Inactive Breo Ellipta 100 mcg-25 mcg/dose powder for inhalation RxNorm: 0651770 1 INH daily 05/05/2017 04/08/2018 Inactive alprazolam 1 mg tablet RxNorm: 214984 1 Tablet(s) PO TID 02/10/2017 08/07/2017 Inactive metoprolol tartrate 50 mg tablet RxNorm: 217104 1/2 Tablet(s) PO BID 02/10/2017 06/25/2017 Inactive losartan 100 mg tablet RxNorm: 528327 1 Tablet(s) PO QPM 02/10/2017 02/04/2018 Inactive losartan 50 mg tablet RxNorm: 657444 2 Tablet(s) PO QPM 01/23/2017 02/09/2017 Inactive Diflucan 150 mg tablet RxNorm: 582297 1 Tablet(s) PO daily 01/20/2017 01/22/2017 Inactive please call pt to let herknow when to pick- up the med Diflucan 150 mg tablet RxNorm: 776363 1 Tablet(s) PO daily 01/20/2017 01/19/2017 Inactive please call pt to let herknow when to pick- up the med losartan 50 mg tablet RxNorm: 105178 1 Tablet(s) PO QPM 01/14/2017 01/22/2017 Inactive Cipro 500 mg tablet RxNorm: 814869 1 Tablet(s) PO BID 01/08/2017 01/17/2017 Inactive Cipro 500 mg tablet RxNorm: 939646 1 Tablet(s) PO BID 01/08/2017 01/07/2017 Inactive Lexapro 10 mg tablet RxNorm: 872232 TAKE 1 TABLET EVERY DAY 12/20/2016 10/14/2017 Inactive metoprolol tartrate 50 mg tablet RxNorm: 455019 1 Tablet(s) PO in the morning and 1.5 pill at night 12/11/2016 01/13/2017 Inactive spironolactone 25 mg tablet RxNorm: 973241 TAKE 1 TABLET EVERY DAY 11/04/2016 07/21/2018 Inactive metoprolol tartrate 50 mg tablet RxNorm: 674457 TAKE 1 TABLET TWICE DAILY 10/29/2016 12/10/2016 Inactive ibuprofen 800 mg tablet RxNorm: 477694 TAKE 1 TABLET THREE TIMES DAILY 10/21/2016 10/14/2017 Inactive Astepro 0.15 % (205.5 mcg) nasal spray RxNorm: 0732995 1 [place] NASAL BID 10/15/2016 10/14/2016 Inactive Astepro 0.15 % (205.5 mcg) nasal spray RxNorm: 2397447 1 [place] NASAL BID 10/15/2016 07/21/2018 Inactive Astepro 0.15 % (205.5 mcg) nasal spray RxNorm: 9499914 1 [place] NASAL BID 10/15/2016 10/14/2016 Inactive omeprazole 20 mg capsule,delayed release RxNorm: 180264 1 Capsule(s) PO QPM 10/15/2016 05/26/2017 Inactive omeprazole 20 mg capsule,delayed release RxNorm: 718042 1 Capsule(s) QPM 10/15/2016 10/14/2016 Inactive omeprazole 20 mg capsule,delayed release RxNorm: 961016 TAKE 1 CAPSULE TWICE DAILY 09/02/2016 10/14/2016 Inactive Lexapro 10 mg tablet RxNorm: 566582 TAKE 1 TABLET EVERY DAY 08/21/2016 12/19/2016 Inactive calcitonin (salmon) 200 unit/actuation nasal spray RxNorm: 524482 1 [place] NASAL daily ONE SPRAY PER ONE NOSTRIL DAILY- ALTERNATE NOSTRILS DAILY 05/31/2016 05/30/2016 Inactive She will do this for 3 months- If she wants to do a 3 month supply at one time she can without refill calcitonin (salmon) 200 unit/actuation nasal spray RxNorm: 246846 1 [place] NASAL daily ONE SPRAY PER ONE NOSTRIL DAILY- ALTERNATE NOSTRILS DAILY 05/31/2016 07/30/2016 Inactive x3 months- no refills Forteo 20 mcg/dose (600 mcg/2.4 mL) subcutaneous pen injector RxNorm: 3485349 1 injection SQ daily 05/22/2016 05/30/2016 Inactive call pt with jaramillo first Forteo 20 mcg/dose (600 mcg/2.4 mL) subcutaneous pen injector RxNorm: 6804490 1 injection SQ daily 05/22/2016 05/21/2016 Inactive Prolia 60 mg/mL subcutaneous syringe RxNorm: 732921 1 Milliliter(s) SQ every 6 months 05/13/2016 07/21/2018 Inactive Please check jaramillo through insurance and let me know- Thanks! Mary Ellen alprazolam 1 mg tablet RxNorm: 971293 1 Tablet(s) PO TID 05/08/2016 11/01/2016 Inactive Lexapro 10 mg tablet RxNorm: 199530 TAKE 1 TABLET EVERY DAY 04/22/2016 08/20/2016 Inactive spironolactone 25 mg tablet RxNorm: 442785 TAKE 1 TABLET EVERY DAY 04/22/2016 11/03/2016 Inactive Diflucan 150 mg tablet RxNorm: 489001 1 Tablet(s) PO daily 03/20/2016 04/14/2016 Inactive Diflucan 150 mg tablet RxNorm: 604341 1 Tablet(s) PO daily 03/20/2016 03/19/2016 Inactive Augmentin 500 mg-125 mg tablet RxNorm: 798819 1 Tablet(s) PO TID 03/14/2016 03/23/2016 Inactive omeprazole 20 mg capsule,delayed release RxNorm: 853751 1 Tablet(s) PO BID 03/06/2016 09/01/2016 Inactive [SAVINGS FOR NON-COVERED DRUGS -- BIN:[id number], PCN: ASPROD1, Group: XXXXX, ID# XXXXXXX, Questions: . THIS IS NOT INSURANCE.] amlodipine 5 mg tablet RxNorm: 357358 TAKE 1 TABLET EVERY DAY 03/01/2016 04/22/2016 Inactive omeprazole 20 mg tablet,delayed release RxNorm: 572557 1 Tablet(s) PO BID 02/27/2016 03/05/2016 Inactive [SAVINGS FOR NON-COVERED DRUGS -- BIN:[id number], PCN: ASPROD1, Group: XXXXX, ID# XXXXXXX, Questions: . THIS IS NOT INSURANCE.] spironolactone 25 mg tablet RxNorm: 224139 TAKE 1 TABLET EVERY DAY 12/21/2015 04/21/2016 Inactive Lexapro 10 mg tablet RxNorm: 259743 1 Tablet(s) PO daily 12/19/2015 01/01/2016 Inactive Lexapro 10 mg tablet RxNorm: 824408 1 Tablet(s) PO daily 12/19/2015 02/09/2017 Inactive Lexapro 10 mg tablet RxNorm: 731030 1 Tablet(s) PO daily 12/19/2015 12/18/2015 Inactive alprazolam 1 mg tablet RxNorm: 122585 1 Tablet(s) PO TID 12/01/2015 02/28/2016 Inactive ibuprofen 800 mg tablet RxNorm: 269406 1 Tablet(s) PO TID 10/26/2015 10/20/2016 Inactive alprazolam 1 mg tablet RxNorm: 930513 1 Tablet(s) PO TID 08/23/2015 07/21/2018 Inactive spironolactone 25 mg tablet RxNorm: 921042 1 Tablet(s) PO daily 08/21/2015 12/20/2015 Inactive metoprolol tartrate 50 mg tablet RxNorm: 046548 1 Tablet(s) PO BID 08/10/2015 08/03/2016 Inactive [SAVINGS FOR NON-COVERED DRUGS -- BIN:006377, PCN: ASPROD1, Group: XXXXX, ID# [id number], Questions: . THIS IS NOT INSURANCE.] omeprazole 20 mg tablet,delayed release RxNorm: 573322 1 Tablet(s) PO BID 08/07/2015 02/02/2016 Inactive [SAVINGS FOR NON-COVERED DRUGS -- BIN:701799, PCN: ASPROD1, Group: XXXXX, ID# XXXXXXX, Questions: . THIS IS NOT INSURANCE.] Keflex 500 mg capsule RxNorm: 726326 1 Capsule(s) PO TID 07/10/2015 07/16/2015 Inactive alprazolam 1 mg tablet RxNorm: 019554 1 Tablet(s) PO TID 06/02/2015 08/22/2015 Inactive alprazolam 1 mg tablet RxNorm: 878518 1 Tablet(s) PO TID 03/29/2015 06/01/2015 Inactive amlodipine 5 mg tablet RxNorm: 344451 1 Tablet(s) PO daily 03/06/2015 02/29/2016 Inactive Nasonex 50 mcg/actuation [place] RxNorm: 313205 1 [place] NASAL daily 03/03/2015 03/02/2015 Inactive Keflex 500 mg capsule RxNorm: 515232 1 Capsule(s) PO TID 03/03/2015 03/02/2015 Inactive Nasonex 50 mcg/actuation [place] RxNorm: 029447 1 [place] NASAL daily 03/03/2015 05/01/2015 Inactive Keflex 500 mg capsule RxNorm: 083844 1 Capsule(s) PO TID 03/03/2015 03/05/2015 Inactive Carafate 1 gram tablet RxNorm: 612120 TAKE 1 TABLET FOUR TIMES DAILY 30 MINUTES BEFORE MEALS AND AT BEDTIME 02/28/2015 12/18/2015 Inactive Kenalog 40 mg/mL suspension for injection RxNorm: 5931326 Milliliter(s) Inj 02/07/2015 02/07/2015 Inactive [SAVINGS FOR NON-COVERED DRUGS -- BIN:980701, PCN: ASPROD1, Group: XXXXX, ID# [id number], Questions: . THIS IS NOT INSURANCE.] metoprolol tartrate 50 mg tablet RxNorm: 117850 1 Tablet(s) PO BID 02/07/2015 08/09/2015 Inactive [SAVINGS FOR NON-COVERED DRUGS -- BIN:156863, PCN: ASPROD1, Group: XXXXX, ID# XXXXXXX, Questions: . THIS IS NOT INSURANCE.] Carafate 1 gram tablet RxNorm: 946761 1 Tablet(s) PO QID 02/07/2015 02/27/2015 Inactive 30 min before meals and at bedtime omeprazole 20 mg tablet,delayed release RxNorm: 217191 1 Tablet(s) PO BID 02/07/2015 08/05/2015 Inactive [SAVINGS FOR NON-COVERED DRUGS -- BIN:214471, PCN: ASPROD1, Group: XXXXX, ID# XXXXXXX, Questions: . THIS IS NOT INSURANCE.] Vitamin D3 2,000 unit tablet RxNorm: 072695 1 Tablet(s) PO daily No Start Date Active aspirin 81 mg tablet RxNorm: 112700 1 Tablet(s) PO daily No Start Date Active amlodipine 2.5 mg tablet RxNorm: 944025 1 Tablet(s) PO daily No Start Date 03/05/2015 Inactive spironolactone 25 mg tablet RxNorm: 234168 1 Tablet(s) PO daily No Start Date 08/20/2015 Inactive cetirizine 10 mg tablet RxNorm: 4700419 1 Tablet(s) PO daily No Start Date 12/18/2015 Inactive metoprolol tartrate 50 mg tablet RxNorm: 433693 1 Tablet(s) PO daily No Start Date 02/06/2015 Inactive ipratropium bromide 0.06 % nasal spray RxNorm: 826087 nasal No Start Date 12/18/2015 Inactive alprazolam 1 mg tablet RxNorm: 206457 1 Tablet(s) PO TID No Start Date 03/28/2015 Inactive Prolia 60 mg/mL subcutaneous syringe RxNorm: 832040 1 Milliliter(s) SQ every 6 months No Start Date 05/12/2016 Inactive Please check jaramillo through insurance and let me know- Thanks! Mary Ellen ibuprofen 800 mg tablet RxNorm: 106637 1 Tablet(s) PO TID No Start Date 10/25/2015 Inactive Protonix 40 mg tablet,delayed release RxNorm: 765365 1 Tablet(s) PO daily No Start Date 03/05/2015 Inactive Vitamin B-12 1,000 mcg/mL injection solution RxNorm: 756166 1 Millil[place](s) Inj Q2 weeks x2 months and then monthly injections No Start Date 05/20/2018 Inactive loratadine 10 mg tablet RxNorm: 222091 1 Tablet(s) PO daily No Start Date 07/21/2018 Inactive Medication Administered Medication Codes Instructions Start Date Status cyanocobalamin (vit B-12) 1,000 mcg/mL injection solution RxNorm: 390257 Millil[place] 08/04/2018 No longer Active cyanocobalamin (vit B-12) 1,000 mcg/mL injection solution RxNorm: 504508 1Milliliter 07/16/2018 No longer Active cyanocobalamin (vit B-12) 1,000 mcg/mL injection solution RxNorm: 847243 Milliliter 07/01/2018 No longer Active cyanocobalamin (vit B-12) 1,000 mcg/mL injection solution RxNorm: 199236 Milliliter 06/15/2018 No longer Active cyanocobalamin (vit B-12) 1,000 mcg/mL injection solution RxNorm: 008677 Milliliter 06/02/2018 No longer Active cyanocobalamin (vit B-12) 1,000 mcg/mL injection solution RxNorm: 612311 Milliliter 05/21/2018 No longer Active Kenalog 40 mg/mL suspension for injection RxNorm: 4789582 1.5Milliliter 04/09/2018 No longer Active Kenalog 40 mg/mL suspension for injection RxNorm: 3456621 1Millil[place] 10/16/2017 No longer Active Kenalog 40 mg/mL suspension for injection RxNorm: 2061902 Milliliter 02/07/2015 No longer Active Immunizations Vaccine Codes Date Status Influenza CVX: 141 06/25/2018 completed Pneumococcal (Adult) CVX: 33 08/28/2016 completed Assessments Condition Codes Effective Dates Essential (primary) hypertension ICD-10: I10 ICD-9: 401.1 08/18/2018 Fecal urgency ICD-10: R15.2 ICD-9: 787.63 08/18/2018 Major depressive disorder, recurrent, 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 ICD-9: 296.31 08/04/2018 Unsteadiness on feet ICD-10: R26.81 ICD-9: 781.2 08/04/2018 Other vitamin B12 deficiency anemias ICD-10: D51.8 ICD-9: 281.1 08/04/2018 Generalized abdominal pain ICD-10: R10.84 ICD-9: [...] (primary) hypertension ICD-10: I10 ICD-9: 401.9 01/02/2017 Other allergic rhinitis ICD-10: J30.89 ICD-9: 477.9 10/15/2016 Acute laryngopharyngitis ICD-10: J06.0 ICD-9: 465.9 05/15/2016 [...] Visit Reason For Visit Effective Dates Notes diarrhea 08/18/2018 gait abnormality 08/04/2018 hypertension 07/22/2018 [...] Item Item Code Result Date Comp Metabolic Jnq774 NA 138 mEq/L 09/03/2017 Comp Metabolic Srr891 K 3.9 mEq/L 09/03/2017 Comp Metabolic Rnd695 CL 102 mEq/L 09/03/2017 Comp Metabolic Qmb047 CO2 32.0 mEq/L 09/03/2017 Comp Metabolic Wcd289 ANION GAP 8 09/03/2017 Comp Metabolic Ixn972 GLUCOSE 89 mg/dL 09/03/2017 Comp Metabolic Cqu638 Creat 0.6 mg/dL 09/03/2017 Comp Metabolic Gcx747 eGFR 103 ml/min/1.73m2 09/03/2017 Comp Metabolic Dmu398 BUN 10 mg/dL 09/03/2017 Comp Metabolic Qhh419 B/C Ratio 16.7 Ratio 09/03/2017 Comp Metabolic Nqz819 CALCIUM 8.9 mg/dL 09/03/2017 Comp Metabolic Zmt297 ALK PHOS 141 U/L 09/03/2017 Comp Metabolic Btj779 AST(SGOT) 12 U/L 09/03/2017 Comp Metabolic Ukb275 ALT(SGPT) 7 U/L 09/03/2017 Comp Metabolic Ezf837 BILI T 0.6 mg/dL 09/03/2017 Comp Metabolic Nec330 ALBUMIN 3.6 g/dL 09/03/2017 Comp Metabolic Krj902 TPRO 6.6 g/dL 09/03/2017 Comp Metabolic Dus242 GLOB 3.0 g/dL 09/03/2017 Comp Metabolic Lqs259 A/G Ratio 1.2 Ratio 09/03/2017 Comp Metabolic Ecv161 Osmo 274 mOsmo 09/03/2017 Hepatic Fyu713 ALBUMIN 3.7 g/dL 08/11/2017 Hepatic Rxf541 TPRO 7.0 g/dL 08/11/2017 Hepatic Xmz687 GLOB 3.3 g/dL 08/11/2017 Hepatic Bol988 A/G Ratio 1.1 Ratio 08/11/2017 Hepatic Kcw242 ALK PHOS 85 U/L 08/11/2017 Hepatic Gsc173 ALT(SGPT) 11 U/L 08/11/2017 Hepatic Fjx255 AST(SGOT) 16 U/L 08/11/2017 Hepatic Zjo483 BILI T 0.6 mg/dL 08/11/2017 Hepatic Fwt444 BILI D 0.1 mg/dL 08/11/2017 Hepatic Svs189 BILI I 0.5 mg/dL 08/11/2017 Hepatic Ldv416 ALBUMIN 3.1 g/dL 07/18/2017 Hepatic Qzk707 TPRO 5.9 g/dL 07/18/2017 Hepatic Ket422 GLOB 2.8 g/dL 07/18/2017 Hepatic Zdv732 A/G Ratio 1.1 Ratio 07/18/2017 Hepatic Sik206 ALK PHOS 123 U/L 07/18/2017 Hepatic Lrf601 ALT(SGPT) 210 U/L 07/18/2017 Hepatic Qds064 AST(SGOT) 71 U/L 07/18/2017 Hepatic Fyp859 BILI T 1.1 mg/dL 07/18/2017 Hepatic Rbc664 BILI D 0.4 mg/dL 07/18/2017 Hepatic Qnk283 BILI I 0.7 mg/dL 07/18/2017 Cbc With [...] 24.5 % 02/25/2017 Cbc With Differential Ord2 [place]% 7.6 % 02/25/2017 Cbc With Differential Ord2 MCH 32.4 pg 02/25/2017 Cbc With Differential Ord2 MCHC 32.3 pg 02/25/2017 Cbc With Differential Ord2 Eos% 7.4 % 02/25/2017 Cbc With Differential Ord2 PLT 145 K/ul 02/25/2017 Cbc With Differential Ord2 Baso% 0.6 % 02/25/2017 Cbc With Differential Ord2 RDW 12.6 % 02/25/2017 Cbc With Differential Ord2 Neut ABS# 2.97 K/ul 02/25/2017 Cbc With Differential Ord2 Lymph ABS# 1.22 K/ul 02/25/2017 Cbc With Differential Ord2 [place] ABS# 0.4 K/ul 02/25/2017 Cbc With Differential [...] 98.0 fl 01/02/2017 Cbc With Differential Ord2 [place]% 7.8 % 01/02/2017 Cbc With Differential Ord2 [...] 0.90 K/ul 01/02/2017 Cbc With Differential Ord2 [place] ABS# 0.4 K/ul 01/02/2017 Cbc With Differential Ord2 Eos ABS# 0.3 K/ul 01/02/2017 Cbc With Differential Ord2 Baso ABS# 0.0 K/ul 01/02/2017 Lipid Ord30 CHOL 139 mg/dL 12/13/2016 Lipid Ord30 HDL 48.0 mg/dl 12/13/2016 Lipid Ord30 TRIG 84 mg/dL 12/13/2016 Lipid Ord30 LDL 74 mg/dL 12/13/2016 Lipid Ord30 C/HDL 2.9 Ratio 12/13/2016 Comp Metabolic Zgv180 NA 137 mEq/L 12/13/2016 Comp Metabolic Wva815 K 4.8 mEq/L 12/13/2016 Comp Metabolic Gxk107 CL 101 mEq/L 12/13/2016 Comp Metabolic Xch599 CO2 32.0 mEq/L 12/13/2016 Comp Metabolic Rpx611 ANION GAP 9 12/13/2016 Comp Metabolic Abo939 GLUCOSE 95 mg/dL 12/13/2016 Comp Metabolic Ixn062 Creat 0.8 mg/dL 12/13/2016 Comp Metabolic Pen700 eGFR 79 ml/min/1.73m2 12/13/2016 Comp Metabolic Wih178 BUN 15 mg/dL 12/13/2016 Comp Metabolic Mdr206 B/C Ratio 19.7 Ratio 12/13/2016 Comp Metabolic Ugc528 CALCIUM 9.3 mg/dL 12/13/2016 Comp Metabolic Szb271 ALK PHOS 63 U/L 12/13/2016 Comp Metabolic Ksd096 AST(SGOT) 15 U/L 12/13/2016 Comp Metabolic Ueg425 ALT(SGPT) 10 U/L 12/13/2016 Comp Metabolic Jji250 BILI T 0.7 mg/dL 12/13/2016 Comp Metabolic Owz502 ALBUMIN 3.7 g/dL 12/13/2016 Comp Metabolic Fep182 TPRO 6.8 g/dL 12/13/2016 Comp Metabolic Uoc111 GLOB 3.2 g/dL 12/13/2016 Comp Metabolic Sst909 A/G Ratio 1.2 Ratio 12/13/2016 Comp Metabolic Spd711 Osmo 274 mOsmo 12/13/2016 Cbc With Differential [...] 97.4 fl 12/13/2016 Cbc With Differential Ord2 [place]% 9.9 % 12/13/2016 Cbc With Differential Ord2 [...] 1.17 K/ul 12/13/2016 Cbc With Differential Ord2 [place] ABS# 0.4 K/ul 12/13/2016 Cbc With Differential [...] 97.3 fl 12/19/2015 Cbc With Differential Ord2 [place]% 5.9 % 12/19/2015 Cbc With Differential Ord2 [...] 1.53 K/ul 12/19/2015 Cbc With Differential Ord2 [place] ABS# 0.3 K/ul 12/19/2015 Cbc With Differential [...] Ord30 C/HDL 2.8 Ratio 12/19/2015 Comp Metabolic Opu424 NA 135 mEq/L 12/19/2015 Comp Metabolic Qtq997 K 4.1 mEq/L 12/19/2015 Comp Metabolic Tmt579 CL 99 mEq/L 12/19/2015 Comp Metabolic Ogg469 CO2 27.0 mEq/L 12/19/2015 Comp Metabolic Jce779 ANION GAP 13 12/19/2015 Comp Metabolic Mna535 GLUCOSE 83 mg/dL 12/19/2015 Comp Metabolic Lno600 Creat 0.7 mg/dL 12/19/2015 Comp Metabolic Gmx783 eGFR 88 ml/min/1.73m2 12/19/2015 Comp Metabolic Urm682 BUN 12 mg/dL 12/19/2015 Comp Metabolic Rxt243 B/C Ratio 17.4 Ratio 12/19/2015 Comp Metabolic Itx438 CALCIUM 9.0 mg/dL 12/19/2015 Comp Metabolic Gma926 ALK PHOS 68 U/L 12/19/2015 Comp Metabolic Ucx501 AST(SGOT) 16 U/L 12/19/2015 Comp Metabolic Rlp155 ALT(SGPT) 13 U/L 12/19/2015 Comp Metabolic Jqq558 BILI T 0.7 mg/dL 12/19/2015 Comp Metabolic Jfp036 ALBUMIN 4.0 g/dL 12/19/2015 Comp Metabolic Bhb766 TPRO 7.0 g/dL 12/19/2015 Comp Metabolic Zun511 GLOB 3.0 g/dL 12/19/2015 Comp Metabolic Hct043 A/G Ratio 1.3 Ratio 12/19/2015 Comp Metabolic Raq886 Osmo 269 mOsmo 12/19/2015 Review of Systems System Result Effective Dates Constitutional No recent illness 08/18/2018 Constitutional No [...] Procedure Codes Date THER/PROPH/DIAG INJ SC/IM CPT-4: 15358 08/04/2018 VITAMIN B12 INJECTION CPT- 4: J3420 08/04/2018 THER/PROPH/DIAG INJ SC/IM CPT-4: 79433 07/16/2018 VITAMIN B12 INJECTION CPT- 4: J3420 07/16/2018 THER/PROPH/DIAG INJ SC/IM CPT-4: 76245 07/01/2018 VITAMIN B12 INJECTION CPT- 4: J3420 07/01/2018 ADMIN INFLUENZA VIRUS VAC CPT-4: G0008 06/25/2018 FLU VACC PRSV FREE INC ANTIG Formatting Model/CDA Sections, Assigned to/Miranda Ayala CPT-4: 56373Rriedvd 06/25/2018 THER/PROPH/DIAG INJ SC/IM CPT-4: 28986 06/15/2018 VITAMIN B12 INJECTION CPT- 4: J3420 06/15/2018 THER/PROPH/DIAG INJ SC/IM CPT-4: 87993 06/02/2018 VITAMIN B12 INJECTION CPT- 4: J3420 06/02/2018 THER/PROPH/DIAG INJ SC/IM CPT-4: 20699 05/21/2018 VITAMIN B12 INJECTION CPT- 4: J3420 05/21/2018 TRIAMCINOLONE ACET INJ NOS CPT-4: J3301 04/09/2018 PPPS, SUBSEQ VISIT CPT- 4: G0439 12/18/2017 TRIAMCINOLONE ACET INJ NOS CPT-4: J3301 10/16/2017 DRAIN/INJECT JOINT/BURSA CPT-4: 76789 10/16/2017 PRESCRIP TRANSMIT VIA ERX SY CPT-4: G8553 05/05/2017 PRESCRIP TRANSMIT VIA ERX SY CPT-4: G8553 01/14/2017 PPPS, SUBSEQ VISIT CPT- 4: G0439 12/12/2016 PRESCRIP TRANSMIT VIA ERX SY CPT-4: G8553 10/15/2016 ADMIN PNEUMOCOCCAL VACCINE SNOMED CT: [id number] CPT-4: G0009 08/28/2016 Pneumococcal Polysaccharide Vaccine, 23-Valent, Ad CPT-4: 76460 08/28/2016 PRESCRIP TRANSMIT VIA ERX SY CPT-4: G8553 03/14/2016 PRESCRIP TRANSMIT VIA ERX SY CPT-4: G8553 12/19/2015 THER/PROPH/DIAG INJ SC/IM CPT-4: 76575 02/07/2015 TRIAMCINOLONE ACET INJ NOS CPT-4: J3301 02/07/2015 Vital Signs Date Vital 08/18/2018 Blood Pressure 1: 128/70 Code: 8480-6 BMI: 25.1 Code: 35560-8 Heart Rate 1: 74 bpm Height: 5'1" SpO2: 95% Weight: 133 lbs 08/04/2018 Blood Pressure 1: 120/80 Code: 8480-6 Blood Pressure 1: 122/80 Code: 8480-6 Blood Pressure 2: 120/82 Code: 8480-6 BMI: 25.5 Code: 70119-5 Heart Rate 1: 67 bpm Heart Rate 1: 63 bpm Height: 5'1" Weight: 135 lbs Weight: 07/22/2018 Blood Pressure 1: 120/82 Code: 8480-6 BMI: 24.9 Code: 79527-4 Heart Rate 1: 64 bpm Height: 5'1" SpO2: 95% Weight: 132 lbs 04/21/2018 Blood Pressure 1: 108/70 Code: 8480-6 BMI: 24.4 Code: 17821-2 Heart Rate 1: 62 bpm Height: 5'1" SpO2: 94% Weight: 129 lbs 04/09/2018 Blood Pressure 1: 138/86 Code: 8480-6 BMI: 25.5 Code: 82251-7 Heart Rate 1: 64 bpm Height: 5'1" SpO2: 99% Temperature: 36.4 (C) / 97.5 (F) Weight: 135 lbs 01/19/2018 Blood Pressure 1: 128/76 Code: 8480-6 BMI: 25.9 Code: 29597-1 Heart Rate 1: 65 bpm Height: 5'1" SpO2: 98% Weight: 137 lbs 12/18/2017 Blood Pressure 1: 144/82 Code: 8480-6 BMI: 26.1 Code: 36703-5 Heart Rate 1: 57 bpm Height: 5'1" SpO2: 97% Waist Measure (cm): 74 cm Weight: 138 lbs 10/16/2017 Blood Pressure 1: 142/88 Code: 8480-6 BMI: 25.5 Code: 05821-0 Heart Rate 1: 63 bpm Height: 5'1" SpO2: 97% Weight: 135 lbs 09/03/2017 Blood Pressure 1: 144/90 Code: 8480-6 BMI: 26.3 Code: 23802-9 Heart Rate 1: 91 bpm Height: 5'1" SpO2: 96% Weight: 139 lbs 07/31/2017 Blood Pressure 1: 136/90 Code: 8480-6 BMI: 26.3 Code: 95139-8 Height: 5'1" Weight: 139 lbs 07/18/2017 Blood Pressure 1: 136/84 Code: 8480-6 06/16/2017 Blood Pressure 1: 136/84 Code: 8480-6 BMI: 26.5 Code: 41119-9 Heart Rate 1: 72 bpm Height: 5'1" SpO2: 97% Weight: 140 lbs 05/28/2017 Blood Pressure 1: 138/78 Code: 8480-6 BMI: 26.1 Code: 11507-4 Heart Rate 1: 70 bpm Height: 5'1" SpO2: 98% Weight: 138 lbs 05/05/2017 Blood Pressure 1: 140/86 Code: 8480-6 BMI: 25.3 Code: 87505-2 Heart Rate 1: 66 bpm Height: 5'1" SpO2: 99% Weight: 134 lbs 03/13/2017 Blood Pressure 1: 126/74 Code: 8480-6 BMI: 25.3 Code: 41062-2 Heart Rate 1: 73 bpm Height: 5'1" SpO2: 98% Weight: 134 lbs 02/10/2017 Blood Pressure 1: 148/88 Code: 8480-6 BMI: 25.9 Code: 76182-5 Heart Rate 1: 84 bpm Height: 5'1" SpO2: 97% Weight: 137 lbs 01/14/2017 Blood Pressure 1: 134/86 Code: 8480-6 BMI: 25.7 Code: 07680-4 Heart Rate 1: 83 bpm Height: 5'1" SpO2: 95% Weight: 136 lbs 01/07/2017 Blood Pressure 1: 136/88 Code: 8480-6 BMI: 25.1 Code: 20814-0 Heart Rate 1: 86 bpm Height: 5'1" SpO2: 94% Weight: 133 lbs 01/02/2017 Blood Pressure 1: 122/68 Code: 8480-6 Blood Pressure 2: 116/78 Code: 8480-6 01/01/2017 Blood Pressure 1: 90/52 Code: 8480-6 BMI: 25.1 Code: 34580- 5 Heart Rate 1: 86 bpm Height: 5'1" SpO2: 99% Weight: 133 lbs 12/20/2016 Blood Pressure 1: 120/76 Code: 8480-6 12/12/2016 Blood Pressure 1: 130/72 Code: 8480-6 BMI: 24.8 Code: 96061-7 Heart Rate 1: 62 bpm Height: 5'1" SpO2: 98% Waist Measure (cm): 79 cm Weight: 131 lbs 12/11/2016 Blood Pressure 1: 132/70 Code: 8480-6 BMI: 24.8 Code: 02645-7 Heart Rate 1: 60 bpm Height: 5'1" Weight: 131 lbs 10/15/2016 Blood Pressure 1: 108/66 Code: 8480-6 BMI: 24.8 Code: 08697-5 Heart Rate 1: 60 bpm Height: 5'1" Weight: 131 lbs 07/17/2016 Blood Pressure 1: 128/82 Code: 8480-6 BMI: 25.3 Code: 51405-7 Heart Rate 1: 50 bpm Height: 5'2" Weight: 136 lbs 05/15/2016 Blood Pressure 1: 108/70 Code: 8480-6 BMI: 23.4 Code: 56828-1 Heart Rate 1: 54 bpm Height: 5'2" SpO2: 96% Weight: 126 lbs 04/23/2016 Blood Pressure 1: 112/60 Code: 8480-6 BMI: 23.6 Code: 23550-5 Heart Rate 1: 92 bpm Height: 5'2" SpO2: 95% Weight: 127 lbs 03/14/2016 Blood Pressure 1: 118/74 Code: 8480-6 BMI: 24.0 Code: 84289-0 Heart Rate 1: 51 bpm Height: 5'2" SpO2: 94% Temperature: 36.8 (C) / 98.3 (F) Weight: 129 lbs 02/19/2016 Blood Pressure 1: 110/62 Code: 8480-6 BMI: 23.4 Code: 12552-1 Heart Rate 1: 74 bpm Height: 5'2" SpO2: 97% Weight: 126 lbs 12/19/2015 Blood Pressure 1: 108/74 Code: 8480-6 BMI: 23.6 Code: 25762-7 Heart Rate 1: 52 bpm Height: 5'2" Weight: 127 lbs 03/06/2015 Blood Pressure 1: 136/88 Code: 8480-6 Heart Rate 1: 64 bpm Weight: 129 lbs 02/07/2015 Blood Pressure 1: 142/90 Code: 8480-6 BMI: 24.5 Code: 63409-8 Heart Rate 1: 82 bpm Height: 5'2" Weight: 132 lbs Functional Status No Functional Status data History of Present Illness Symptom Name Status Result Effective Date Notes diarrhea Quality intermittent 08/18/2018 None diarrhea Quality [...] data Encounters Encounter Performer Location Codes Date ([id number]) 28130 EST. PATIENT, LEVEL III Diagnosis: Essential (primary) hypertension[ICD10: I10] Diagnosis: Fecal urgency[ICD10: R15.2] Kim Burden MD, [facility] CPT-4: 49667 08/18/2018 ([id number]) 21325 EST. PATIENT, LEVEL IV Diagnosis: Other vitamin B12 deficiency anemias[ICD10: D51.8] Diagnosis: Essential (primary) hypertension[ICD10: I10] Diagnosis: Major depressive disorder, recurrent, mild[ICD10: F33.0] Diagnosis: Unsteadiness on feet[ICD10: R26.81] Kim Burden MD, [facility] CPT- 4: 60495 08/04/2018 ([id number]) 94938 EST. PATIENT, LEVEL IV Diagnosis: Fecal urgency[ICD10: R15.2] Diagnosis: Generalized abdominal pain[ICD10: R10.84] Diagnosis: Essential (primary) hypertension[ICD10: I10] Kim Burden MD, [facility] CPT-4: 30464 07/22/2018 ([id number]) 54409 EST. PATIENT, LEVEL IV Diagnosis: Essential (primary) hypertension[ICD10: I10] Diagnosis: Other emphysema[ICD10: J43.8] Diagnosis: Candidal stomatitis[ICD10: B37.0] Kim Burden MD, [facility] CPT- 4: 51797 04/21/2018 ([id number]) 26036 EST. PATIENT, LEVEL III Diagnosis: Chronic obstructive pulmonary disease with (acute) exacerbation[ICD10: J44.1] Mallorie Burden MD, [facility] CPT-4: 06935 04/09/2018 ([id number]) 95298 EST. PATIENT, LEVEL IV Diagnosis: Essential (primary) hypertension[ICD10: I10] Diagnosis: Other emphysema[ICD10: J43.8] Kim Burden MD, [facility] CPT-4: 90603 01/19/2018 ([id number]) 35078 EST. PATIENT, LEVEL IV Diagnosis: Essential (primary) hypertension[ICD10: I10] Diagnosis: Other emphysema[ICD10: J43.8] Diagnosis: Dependence on supplemental oxygen[ICD10: Z99.81] Diagnosis: Hypoxemia[ICD10: R09.02] Diagnosis: Pain in left knee[ICD10: M25.562] Diagnosis: Effusion, left knee[ICD10: M25.462] Kim Burden MD, [facility] CPT- 4: 28292 10/16/2017 74975 EST. PATIENT, LEVEL III Diagnosis: Pain in thoracic spine[ICD10: M54.6] Pebbles Burden MD, [facility] CPT- 4: 45172 09/03/2017 ([id number]) 77378 EST. PATIENT, LEVEL III Diagnosis: Essential (primary) hypertension[ICD10: I10] Diagnosis: Other emphysema[ICD10: J43.8] Kim Burden MD, [facility] CPT-4: 04094 07/31/2017 ([id number]) Miscellaneous no charge Diagnosis: Essential (primary) hypertension[ICD10: I10] Mallorie Burden MD, [facility] CPT-4: 85195 07/18/2017 ([id number]) 90795 EST. PATIENT, LEVEL III Diagnosis: Pain in left knee[ICD10: M25.562] Diagnosis: Effusion, left knee[ICD10: M25.462] Mallorie Burden MD, [facility] CPT-4: 32329 06/16/2017 ([id number]) 85190 EST. PATIENT, LEVEL III Diagnosis: Essential (primary) hypertension[ICD10: I10] Diagnosis: Unsteadiness on feet[ICD10: R26.81] Kim Burden MD, [facility] CPT- 4: 52310 05/28/2017 ([id number]) 29566 EST. PATIENT, LEVEL IV Diagnosis: Essential (primary) hypertension[ICD10: I10] Diagnosis: Chronic obstructive pulmonary disease with acute lower respiratory infection[ICD10: J44.0] Kim Burden MD, [facility] CPT-4: 17140 05/05/2017 ([id number]) 49052 EST. 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 PATIENT, LEVEL IV Diagnosis: Essential (primary) hypertension[ICD10: I10] Diagnosis: Gastro-esophageal reflux disease without esophagitis[ICD10: K21.9] Diagnosis: Chronic obstructive pulmonary disease, unspecified[ICD10: J44.9] Kim Burden MD, [facility] CPT-4: 33267 02/10/2017 ([id number]) 08571 EST. PATIENT, LEVEL IV Diagnosis: Essential (primary) hypertension[ICD10: I10] Diagnosis: Gastro-esophageal reflux disease without esophagitis[ICD10: K21.9] Diagnosis: Chronic obstructive pulmonary disease with acute lower respiratory infection[ICD10: J44.0] Kim Burden MD, [facility] CPT-4: 60969 01/14/2017 98021 EST. PATIENT, LEVEL IV Diagnosis: Other fatigue[ICD10: R53.83] Diagnosis: Other malaise[ICD10: R53.81] Diagnosis: Headache[ICD10: R51] Diagnosis: Palpitations[ICD10: R00.2] Diagnosis: Dehydration[ICD10: E86.0] Pebbles Burden MD, [facility] CPT-4: 39839 01/07/2017 ([id number]) Miscellaneous no charge Diagnosis: Essential (primary) hypertension[ICD10: I10] Pebbles Burden MD, [facility] CPT-4: 48576 01/02/2017 82869 EST. PATIENT, LEVEL IV Diagnosis: Chronic obstructive pulmonary disease, unspecified[ICD10: J44.9] Diagnosis: Essential (primary) hypertension[ICD10: I10] Diagnosis: Other fatigue[ICD10: R53.83] Pebbles Burden MD, [facility] CPT-4: 24371 01/01/2017 ([id number]) Miscellaneous no charge Diagnosis: Essential (primary) hypertension[ICD10: I10] Pebbles Burden MD, [facility] CPT-4: 61370 12/20/2016 ([id number]) 31377 EST. 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 PATIENT, LEVEL IV Diagnosis: Essential (primary) hypertension[ICD10: I10] Diagnosis: Other allergic rhinitis[ICD10: J30.89] Diagnosis: Gastro-esophageal reflux disease without esophagitis[ICD10: K21.9] Kim Burden MD [facility] CPT-4: 53502 10/15/2016 ([id number]) 53002 EST. 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 PATIENT, LEVEL III Diagnosis: Pain in left hip[ICD10: M25.552] Diagnosis: Acute laryngopharyngitis[ICD10: J06.0] Kim Burden MD [facility] CPT-4: 02929 05/15/2016 ([id number]) 44538 EST. PATIENT, LEVEL III Diagnosis: Fracture of unspecified parts of lumbosacral spine and pelvis, initial encounter for closed fracture[ICD10: S32.9XXA] Diagnosis: Essential (primary) hypertension[ICD10: I10] Kim Burden MD [facility] CPT-4: 33505 04/23/2016 90084 EST. PATIENT, LEVEL IV Diagnosis: Acute laryngopharyngitis[ICD10: J06.0] Diagnosis: Other allergic rhinitis[ICD10: J30.89] Pebbles Burden MD [facility] CPT- 4: 79904 03/14/2016 97608 EST. PATIENT, LEVEL IV Diagnosis: Dysuria[ICD10: R30.0] Diagnosis: Left lower quadrant pain[ICD10: R10.32] Pebbles Burden MD [facility] CPT-4: 76166 02/19/2016 ([id number]) 59096 EST. 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 PATIENT, LEVEL IV Diagnosis: ESSENTIAL HYPERTENSION[ICD9: 401.9] Diagnosis: ACUTE URI[ICD9: 465.9] [facility] CPT-4: 12538 03/06/2015 ([id number]) OFFICE VISIT, NEW - LEVEL 4 Diagnosis: ESOPHAGEAL REFLUX[ICD9: 530.81] Diagnosis: ESSENTIAL HYPERTENSION[ICD9: 401.9] Diagnosis: COPD (chronic obstructive pulmonary disease)[ICD9: 496] Diagnosis: ALLERGIC RHINITIS[ICD9: 477.9] [facility] CPT-4: 02808 02/07/2015 Plan of Care Planned Activity Notes [...] to 1/2 packet twice a day. 08/18/2018 Patient Education: Patient Medication Summary Completed [...] of anxiolytic. 08/04/2018 Appointment: Kim Burden WPtel: [address] [place], [place] [address] (15 min) Moderate 08/04/2018 Appointment: Nurse Visit [...] at home. 07/22/2018 App[facility]ment[facility] [place] (15 min) Moderate 07/22/2018 Patient [...] swallow. 04/21/2018 App[facility]ment[phone] [facility] (15 min) Moderate 04/21/2018 Patient Education: [...] changes. 04/09/2018 [facility]ment[phone] [phone] [place] (30 min) Complex 04/09/2018 Patient [...] acute changes. 01/19/2018 Appointment: Kim Burden WPtel: [facility] (15 min) Moderate 01/19/2018 Patient Education: Patient Medication Summary Completed 01/19/2018 Appointment: Kim Burden WPtel: [address] [place], [place] [phone] (15 min) Moderate 01/14/2018 Visit Plan: Medicare [...] care surrogate. 12/18/2017 Appointment: Pebbles Lund WPtel: [facility] [facility] - Annual Wellness Visit 12/18/2017 Patient Education: [...] at home. 10/16/2017 Appointment: Kim Burden WPtel: [facility] (15 min) Moderate 10/16/2017 Patient Education: [...] or concerns. 09/03/2017 Appointment: Pebbles Lund [facility]el[facility] ([facility] min) Moderate 09/03/2017 Patient Education: Patient Medication Summary Completed 09/03/2017 Appointment: [facility] [phone] [facility] [place] (15 min) Moderate 08/11/2017 Appointment: [phone] [facility] (15 min) Moderate 08/11/2017 Patient Education: [...] treatment. 07/31/2017 Appointment: Kim Burden WPtel: [phone] [facility] (15 min) Moderate 07/31/2017 Patient Education: Patient Medication Summary Completed 07/31/2017 Appointment: Nurse Visit 07/18/2017 Patient Education: Patient Medication Summary Completed 07/18/2017 Patient Education: Patient Medication Summary Completed 07/18/2017 Appointment: Kim Burden WPtel: [phone] [facility] (15 min) Moderate 06/30/2017 Visit Plan: Effusion left knee-fall 2 weeks ago-recommend compression of joint and refer to Ortho for evaluation and treatment-will refer to Dr Pryor/Quinton Mccormick. Patient verbalized understanding of plan. 06/16/2017 Appointment: Mallorie Wetzel WPtel: [phone] [phone] [place] (30 min) Complex 06/16/2017 [...] when active. 05/28/2017 Appointment: Kim Burden WPtel: [phone] [facility] [place] (15 min) Moderate 05/28/2017 Patient [...] changes. 05/05/2017 Appointment: Kim Burden WPtel: [phone] [facility] (15 min) Moderate 05/05/2017 Patient Education: [...] medications. 03/13/2017 Appointment: [phone] [facility] (15 min) Moderate 03/13/2017 Patient Education: [...] worsening. 02/10/2017 Appointment: [facility] [phone] [facility] (15 min) Moderate 02/10/2017 Patient Education: [...] improving. 01/14/2017 Appointment: [facility] [phone] [facility] (15 min) Moderate 01/14/2017 Patient Education: [...] concerns. 01/07/2017 Appointment: [facility]ebbles Lund [phone] [facility] (30 min) Complex 01/07/2017 Patient Education: [...] pressures. 01/01/2017 Appointment: Pebbles Lund [facility]el[facility] [phone] [facility] (30 min) Complex 01/01/2017 Patient Education: [...] surrogate. 12/12/2016 Appointment: Pebbles Lund [facility] [phone] [facility] [facility] - Annual Wellness Visit 12/12/2016 Patient Education: [...] time. 12/11/2016 Appointment: [facility] [phone] [facility] (15 min) Moderate 12/11/2016 Patient Education: Patient Medication Summary Completed 12/11/2016 Appointment: [facility] [phone] [phone] (30 min) Complex 12/10/2016 Visit Plan: [...] improving. 10/15/2016 Appointment: Kim Burden WPtel: [phone] [facility] (15 min) Moderate 10/15/2016 Patient Education: [...] restaurant. 07/17/2016 Appointment: Kim Burden WPtel: [phone] [facility] (15 min) Moderate 07/17/2016 Patient Education: Patient Medication Summary Completed 07/17/2016 Appointment: [phone] [facility] (15 min) Moderate 06/10/2016 Visit Plan: Hip pain - persistent but improving - continue with current treatment plan. Pt to call if her symptoms are not improving or if her hip pain worsens. URI symptoms - supportive care, use otc allergy medications. 05/15/2016 Appointment: Kim Burden WPtel: [facility] [place] (15 min) Moderate 05/15/2016 Patient Education: [...] improving. 04/23/2016 Appointment: Kim Burden WPtel: [phone] [facility] (15 min) Moderate 04/23/2016 Patient Education: Patient Medication Summary Completed 04/23/2016 Patient Education: Hypertension Completed 04/23/2016 Care Plan: X-RAY EXAM OF ABDOMEN LOINC : 22888-6 Pending 03/18/2016 Visit Plan: URI - Pt [...] nasal steroid allergy spray. 03/14/2016 Appointment: Pebbles Lnud WPtel: [facility] (30 min) Complex 03/14/2016 Patient Education: Patient Medication Summary Completed 03/14/2016 Patient Education: Patient Medication Summary Completed 02/29/2016 Visit Plan: Flank pain - pt is currently being treated for UTI, but is having continued left flank pain - will get KUB - pt is to notify clinic if symptoms do not improve, or with any concerns. 02/19/2016 Appointment: Pebbles Lund [facility] (30 min) Complex 02/19/2016 Patient Education: Patient Medication Summary Completed 02/19/2016 Appointment: Kim Burden [facility]el[facility] (15 min) Moderate 01/22/2016 Visit Plan: Hypertension [...] improving. 12/19/2015 Appointment: Kim Burden WPtel: [phone] [facility] (15 min) Moderate 12/19/2015 Patient Education: [...] Finish RX. 03/06/2015 Appointment: Kim Burden WPtel: [facility] Follow up 03/06/2015 Patient Education: Patient [...] Completed 02/07/2015 Care Plan: SCREENINGMAMMOGRAPHYDIGITAL LOINC : 28883-7 Ordered 02/07/2015 Care Plan: COMPLETE CBC AUTOMATED LOINC : 20282-8 Ordered 02/07/2015 Instructions Comment . Dehydration, palpitations, [...] to help decrease GI upset./loose stools - [facility] or [facility] . Hypertension - well controlled - [...] care surrogate. TAKE WITH FOOD AND PROBIOTIC ([employer] [facility] [address] [employer]) . URI - Pt advised to increase [...] office if the symptoms are not improving. CHECK YOUR BLOOD PRESSURE AND PULSE AT [...]
--- OUTSIDE RECORDS SUMMARY | 2019-04-06 09:35 | XMS REPORT | CCD ---
Author Author Mallorie Wetzel Organization Kim Burden MD, [facility] Address [address] [place] [address] Phone Care Team Providers Care Occupational Therapy Professor Name Role Phone PP Unavailable CCM Unavailable Summary Purpose Interface Exchange Insurance Providers Payer name Policy type / Coverage type Covered constitution party ID Effective Begin Date Effective End Date WPS Medicare Part B Medicare Part B [id number] 2018 Unknown AETNA Medicare Part B [id number] Unknown Family history Brother Diagnosis Age At [...] 02/07/2015 Employment Unknown Currently employed works at [employer] 02/07/[address]: 2709538 Quit over 10 years ago 199302/07/2015 Number [...] 9: 781.2 ICD-10: R26.81 Active 05/28/2017 Unknown Fecal urgency ICD-9: 787.63 ICD-10: R15.2 Active 07/22/2018 Unknown Generalized abdominal pain ICD-9: 789.07 ICD-10: [...] ICD- 9: 781.2 ICD-10: R26.81 05/28/2017 Active Fecal urgency ICD-9: 787.63 ICD-10: R15.2 07/22/2018 Active Generalized abdominal pain ICD-9: 789.07 ICD-10: [...] Fill Instructions alprazolam 1 mg tablet RxNorm: 592612 1/2 Tablet(s) PO TID 08/10/2018 05/06/2019 Active cyanocobalamin (vit B-12) 1,000 mcg/mL injection solution RxNorm: 600779 Milliliter(s) Inj 08/04/2018 08/04/2018 Inactive alprazolam 1 mg tablet RxNorm: 527424 1/2 Tablet(s) PO BID 08/04/2018 08/09/2018 Inactive cholestyramine (with sugar) 4 gram powder for susp in a packet RxNorm: 011773 1/2 to 1 packet PO TID take 30 minutes before meals 07/22/2018 07/16/2019 Active cyanocobalamin (vit B-12) 1,000 mcg/mL injection solution RxNorm: 993780 1 Milliliter(s) Inj 07/16/2018 07/16/2018 Inactive omeprazole 20 mg capsule,delayed release RxNorm: 955047 Capsule(s) TAKE 1 CAPSULE TWICE DAILY 07/01/2018 06/25/2019 Active cyanocobalamin (vit B-12) 1,000 mcg/mL injection solution RxNorm: 157232 Milliliter(s) Inj 07/01/2018 07/01/2018 Inactive omeprazole 20 mg capsule,delayed release RxNorm: 713123 TAKE 1 CAPSULE TWICE DAILY 07/01/2018 06/30/2018 Inactive alprazolam 1 mg tablet RxNorm: 096032 1 Tablet(s) PO TID 07/01/2018 08/03/2018 Inactive cyanocobalamin (vit B-12) 1,000 mcg/mL injection solution RxNorm: 231351 Milliliter(s) Inj 06/15/2018 06/15/2018 Inactive cyanocobalamin (vit B-12) 1,000 mcg/mL injection solution RxNorm: 364203 Milliliter(s) Inj 06/02/2018 06/02/2018 Inactive fluticasone 50 mcg/actuation nasal spray,suspension RxNorm: 6183898 1 [place] NASAL BID 05/26/2018 05/20/2019 Active Vitamin B-12 1,000 mcg/mL injection solution RxNorm: 453835 1 Milliliter(s) Inj Q2 weeks x2 months and then monthly injections 05/21/2018 No Stop Date Active cyanocobalamin (vit B-12) 1,000 mcg/mL injection solution RxNorm: 324906 Milliliter(s) Inj 05/21/2018 05/21/2018 Inactive fluticasone 50 mcg/actuation nasal spray,suspension RxNorm: 3737505 1 [place] NASAL BID 05/19/2018 05/25/2018 Inactive fluticasone 50 mcg/actuation nasal spray,suspension RxNorm: 5160246 1 [place] NASAL BID 05/18/2018 05/18/2018 Inactive fluticasone 50 mcg/actuation nasal spray,suspension RxNorm: 6278031 1 [place] NASAL BID 05/15/2018 05/17/2018 Inactive fluticasone 50 mcg/actuation nasal spray,suspension RxNorm: 2255028 1 [place] NASAL BID 05/15/2018 05/14/2018 Inactive nystatin 100,000 unit/mL oral suspension RxNorm: 258530 5 [place]il[place](s) PO QID 04/21/2018 04/30/2018 Inactive Breo Ellipta 100 mcg-25 mcg/dose powder for inhalation RxNorm: 0894478 1 INH daily 04/09/2018 04/03/2019 Active please call patient with jaramillo before sending prednisone 20 mg tablet RxNorm: 720455 1 Tablet(s) PO BID 04/09/2018 04/13/2018 Inactive start tomorrow Kenalog 40 mg/mL suspension for injection RxNorm: 8992712 1.5 Milliliter(s) Inj 04/09/2018 04/09/2018 Inactive Breo Ellipta 100 mcg-25 mcg/dose powder for inhalation RxNorm: 5245306 1 INH daily 04/09/2018 04/08/2018 Inactive alprazolam 1 mg tablet RxNorm: 274546 1 Tablet(s) PO TID 03/13/2018 06/30/2018 Inactive losartan 100 mg tablet RxNorm: 618802 TAKE 1 TABLET EVERY EVENING 03/02/2018 02/13/2021 Active Ventolin HFA 90 mcg/actuation aerosol inhaler RxNorm: 903162 2 INH Q4-6H as needed 12/29/2017 02/26/2018 Inactive Ventolin HFA 90 mcg/actuation aerosol inhaler RxNorm: 815153 2 INH Q4-6H as needed 12/29/2017 12/28/2017 Inactive Diflucan 150 mg tablet RxNorm: 299169 1 Tablet(s) PO daily 11/03/2017 11/05/2017 Inactive please call pt to let herknow when to pick- up the med Keflex 500 mg capsule RxNorm: 414635 1 Capsule(s) PO TID 10/23/2017 10/29/2017 Inactive Kenalog 40 mg/mL suspension for injection RxNorm: 3267338 1 Milliliter(s) Inj 10/16/2017 10/16/2017 Inactive ibuprofen 800 mg tablet RxNorm: 299538 TAKE 1 TABLET THREE TIMES DAILY 10/15/2017 01/07/2019 Active Lexapro 10 mg tablet RxNorm: 676653 TAKE 1 TABLET EVERY DAY 10/15/2017 10/09/2018 Active hydrocodone 5 mg-acetaminophen 325 mg tablet RxNorm: 445409 1 Tablet(s) PO QID as needed 09/03/2017 07/21/2018 Inactive omeprazole 20 mg capsule,delayed release RxNorm: 144365 1 Capsule(s) PO BID 09/02/2017 06/30/2018 Inactive alprazolam 1 mg tablet RxNorm: 905578 1 Tablet(s) PO TID 09/02/2017 03/12/2018 Inactive metoprolol tartrate 50 mg tablet RxNorm: 074414 1/2 Tablet(s) PO BID 06/26/2017 06/20/2018 Inactive omeprazole 20 mg capsule,delayed release RxNorm: 145417 1 Capsule(s) PO BID 06/05/2017 09/01/2017 Inactive omeprazole 20 mg capsule,delayed release RxNorm: 122938 1 Capsule(s) PO BID 05/28/2017 06/04/2017 Inactive omeprazole 20 mg capsule,delayed release RxNorm: 296221 1 Capsule(s) PO QPM 05/27/2017 05/27/2017 Inactive Breo Ellipta 100 mcg-25 mcg/dose powder for inhalation RxNorm: 7769840 1 INH daily 05/05/2017 04/08/2018 Inactive alprazolam 1 mg tablet RxNorm: 442020 1 Tablet(s) PO TID 02/10/2017 08/07/2017 Inactive metoprolol tartrate 50 mg tablet RxNorm: 940624 1/2 Tablet(s) PO BID 02/10/2017 06/25/2017 Inactive losartan 100 mg tablet RxNorm: 995280 1 Tablet(s) PO QPM 02/10/2017 02/04/2018 Inactive losartan 50 mg tablet RxNorm: 597086 2 Tablet(s) PO QPM 01/23/2017 02/09/2017 Inactive Diflucan 150 mg tablet RxNorm: 640258 1 Tablet(s) PO daily 01/20/2017 01/22/2017 Inactive please call pt to let herknow when to pick- up the med Diflucan 150 mg tablet RxNorm: 491271 1 Tablet(s) PO daily 01/20/2017 01/19/2017 Inactive please call pt to let herknow when to pick- up the med losartan 50 mg tablet RxNorm: 222987 1 Tablet(s) PO QPM 01/14/2017 01/22/2017 Inactive Cipro 500 mg tablet RxNorm: 096404 1 Tablet(s) PO BID 01/08/2017 01/17/2017 Inactive Cipro 500 mg tablet RxNorm: 300337 1 Tablet(s) PO BID 01/08/2017 01/07/2017 Inactive Lexapro 10 mg tablet RxNorm: 528818 TAKE 1 TABLET EVERY DAY 12/20/2016 10/14/2017 Inactive metoprolol tartrate 50 mg tablet RxNorm: 637382 1 Tablet(s) PO in the morning and 1.5 pill at night 12/11/2016 01/13/2017 Inactive spironolactone 25 mg tablet RxNorm: 441812 TAKE 1 TABLET EVERY DAY 11/04/2016 07/21/2018 Inactive metoprolol tartrate 50 mg tablet RxNorm: 911310 TAKE 1 TABLET TWICE DAILY 10/29/2016 12/10/2016 Inactive ibuprofen 800 mg tablet RxNorm: 313486 TAKE 1 TABLET THREE TIMES DAILY 10/21/2016 10/14/2017 Inactive Astepro 0.15 % (205.5 mcg) nasal spray RxNorm: 7582994 1 [place] NASAL BID 10/15/2016 10/14/2016 Inactive Astepro 0.15 % (205.5 mcg) nasal spray RxNorm: 0990639 1 [place] NASAL BID 10/15/2016 07/21/2018 Inactive Astepro 0.15 % (205.5 mcg) nasal spray RxNorm: 6310333 1 [place] NASAL BID 10/15/2016 10/14/2016 Inactive omeprazole 20 mg capsule,delayed release RxNorm: 590936 1 Capsule(s) PO QPM 10/15/2016 05/26/2017 Inactive omeprazole 20 mg capsule,delayed release RxNorm: 773491 1 Capsule(s) QPM 10/15/2016 10/14/2016 Inactive omeprazole 20 mg capsule,delayed release RxNorm: 111711 TAKE 1 CAPSULE TWICE DAILY 09/02/2016 10/14/2016 Inactive Lexapro 10 mg tablet RxNorm: 217839 TAKE 1 TABLET EVERY DAY 08/21/2016 12/19/2016 Inactive calcitonin (salmon) 200 unit/actuation nasal spray RxNorm: 395738 1 [place] NASAL daily ONE SPRAY PER ONE NOSTRIL DAILY- ALTERNATE NOSTRILS DAILY 05/31/2016 05/30/2016 Inactive She will do this for 3 months- If she wants to do a 3 month supply at one time she can without refill calcitonin (salmon) 200 unit/actuation nasal spray RxNorm: 937151 1 [place] NASAL daily ONE SPRAY PER ONE NOSTRIL DAILY- ALTERNATE NOSTRILS DAILY 05/31/2016 07/30/2016 Inactive x3 months- no refills Forteo 20 mcg/dose (600 mcg/2.4 mL) subcutaneous pen injector RxNorm: 9606735 1 injection SQ daily 05/22/2016 05/30/2016 Inactive call pt with jaramillo first Forteo 20 mcg/dose (600 mcg/2.4 mL) subcutaneous pen injector RxNorm: 9848253 1 injection SQ daily 05/22/2016 05/21/2016 Inactive Prolia 60 mg/mL subcutaneous syringe RxNorm: 053976 1 Milliliter(s) SQ every 6 months 05/13/2016 07/21/2018 Inactive Please check jaramillo through insurance and let me know- Thanks! Mary Ellen alprazolam 1 mg tablet RxNorm: 414387 1 Tablet(s) PO TID 05/08/2016 11/01/2016 Inactive Lexapro 10 mg tablet RxNorm: 561677 TAKE 1 TABLET EVERY DAY 04/22/2016 08/20/2016 Inactive spironolactone 25 mg tablet RxNorm: 444729 TAKE 1 TABLET EVERY DAY 04/22/2016 11/03/2016 Inactive Diflucan 150 mg tablet RxNorm: 154897 1 Tablet(s) PO daily 03/20/2016 04/14/2016 Inactive Diflucan 150 mg tablet RxNorm: 988697 1 Tablet(s) PO daily 03/20/2016 03/19/2016 Inactive Augmentin 500 mg-125 mg tablet RxNorm: 355639 1 Tablet(s) PO TID 03/14/2016 03/23/2016 Inactive omeprazole 20 mg capsule,delayed release RxNorm: 787743 1 Tablet(s) PO BID 03/06/2016 09/01/2016 Inactive [SAVINGS FOR NON-COVERED DRUGS -- BIN:[id number], PCN: ASPROD1, Group: XXXXX, ID# XXXXXXX, Questions: . THIS IS NOT INSURANCE.] amlodipine 5 mg tablet RxNorm: 501474 TAKE 1 TABLET EVERY DAY 03/01/2016 04/22/2016 Inactive omeprazole 20 mg tablet,delayed release RxNorm: 561409 1 Tablet(s) PO BID 02/27/2016 03/05/2016 Inactive [SAVINGS FOR NON-COVERED DRUGS -- BIN:049428, PCN: ASPROD1, Group: XXXXX, ID# XXXXXXX, Questions: . THIS IS NOT INSURANCE.] spironolactone 25 mg tablet RxNorm: 545175 TAKE 1 TABLET EVERY DAY 12/21/2015 04/21/2016 Inactive Lexapro 10 mg tablet RxNorm: 468075 1 Tablet(s) PO daily 12/19/2015 01/01/2016 Inactive Lexapro 10 mg tablet RxNorm: 502855 1 Tablet(s) PO daily 12/19/2015 02/09/2017 Inactive Lexapro 10 mg tablet RxNorm: 781794 1 Tablet(s) PO daily 12/19/2015 12/18/2015 Inactive alprazolam 1 mg tablet RxNorm: 996186 1 Tablet(s) PO TID 12/01/2015 02/28/2016 Inactive ibuprofen 800 mg tablet RxNorm: 824720 1 Tablet(s) PO TID 10/26/2015 10/20/2016 Inactive alprazolam 1 mg tablet RxNorm: 720391 1 Tablet(s) PO TID 08/23/2015 07/21/2018 Inactive spironolactone 25 mg tablet RxNorm: 801890 1 Tablet(s) PO daily 08/21/2015 12/20/2015 Inactive metoprolol tartrate 50 mg tablet RxNorm: 255860 1 Tablet(s) PO BID 08/10/2015 08/03/2016 Inactive [SAVINGS FOR NON-COVERED DRUGS -- BIN:805242, PCN: ASPROD1, Group: XXXXX, ID# XXXXXXX, Questions: . THIS IS NOT INSURANCE.] omeprazole 20 mg tablet,delayed release RxNorm: 876290 1 Tablet(s) PO BID 08/07/2015 02/02/2016 Inactive [SAVINGS FOR NON-COVERED DRUGS -- BIN:252713, PCN: ASPROD1, Group: XXXXX, ID# XXXXXXX, Questions: . THIS IS NOT INSURANCE.] Keflex 500 mg capsule RxNorm: 484841 1 Capsule(s) PO TID 07/10/2015 07/16/2015 Inactive alprazolam 1 mg tablet RxNorm: 447414 1 Tablet(s) PO TID 06/02/2015 08/22/2015 Inactive alprazolam 1 mg tablet RxNorm: 218294 1 Tablet(s) PO TID 03/29/2015 06/01/2015 Inactive amlodipine 5 mg tablet RxNorm: 142541 1 Tablet(s) PO daily 03/06/2015 02/29/2016 Inactive Nasonex 50 mcg/actuation [place] RxNorm: 052979 1 [place] NASAL daily 03/03/2015 03/02/2015 Inactive Keflex 500 mg capsule RxNorm: 654893 1 Capsule(s) PO TID 03/03/2015 03/02/2015 Inactive Nasonex 50 mcg/actuation [place] RxNorm: 684161 1 [place] NASAL daily 03/03/2015 05/01/2015 Inactive Keflex 500 mg capsule RxNorm: 211966 1 Capsule(s) PO TID 03/03/2015 03/05/2015 Inactive Carafate 1 gram tablet RxNorm: 518119 TAKE 1 TABLET FOUR TIMES DAILY 30 MINUTES BEFORE MEALS AND AT BEDTIME 02/28/2015 12/18/2015 Inactive Kenalog 40 mg/mL suspension for injection RxNorm: 3028421 Milliliter(s) Inj 02/07/2015 02/07/2015 Inactive [SAVINGS FOR NON-COVERED DRUGS -- BIN:756002, PCN: ASPROD1, Group: XXXXX, ID# XXXXXXX, Questions: . THIS IS NOT INSURANCE.] metoprolol tartrate 50 mg tablet RxNorm: 959584 1 Tablet(s) PO BID 02/07/2015 08/09/2015 Inactive [SAVINGS FOR NON-COVERED DRUGS -- BIN:865893, PCN: ASPROD1, Group: XXXXX, ID# XXXXXXX, Questions: . THIS IS NOT INSURANCE.] Carafate 1 gram tablet RxNorm: 406636 1 Tablet(s) PO QID 02/07/2015 02/27/2015 Inactive 30 min before meals and at bedtime omeprazole 20 mg tablet,delayed release RxNorm: 011493 1 Tablet(s) PO BID 02/07/2015 08/05/2015 Inactive [SAVINGS FOR NON-COVERED DRUGS -- BIN:422091, PCN: ASPROD1, Group: XXXXX, ID# XXXXXXX, Questions: . THIS IS NOT INSURANCE.] Vitamin D3 2,000 unit tablet RxNorm: 824824 1 Tablet(s) PO daily No Start Date Active aspirin 81 mg tablet RxNorm: 286379 1 Tablet(s) PO daily No Start Date Active amlodipine 2.5 mg tablet RxNorm: 434019 1 Tablet(s) PO daily No Start Date 03/05/2015 Inactive spironolactone 25 mg tablet RxNorm: 586001 1 Tablet(s) PO daily No Start Date 08/20/2015 Inactive cetirizine 10 mg tablet RxNorm: 9198784 1 Tablet(s) PO daily No Start Date 12/18/2015 Inactive metoprolol tartrate 50 mg tablet RxNorm: 748409 1 Tablet(s) PO daily No Start Date 02/06/2015 Inactive ipratropium bromide 0.06 % nasal spray RxNorm: 103025 nasal No Start Date 12/18/2015 Inactive alprazolam 1 mg tablet RxNorm: 776903 1 Tablet(s) PO TID No Start Date 03/28/2015 Inactive Prolia 60 mg/mL subcutaneous syringe RxNorm: 157029 1 Milliliter(s) SQ every 6 months No Start Date 05/12/2016 Inactive Please check jaramillo through insurance and let me know- Thanks! Mary Ellen ibuprofen 800 mg tablet RxNorm: 700554 1 Tablet(s) PO TID No Start Date 10/25/2015 Inactive Protonix 40 mg tablet,delayed release RxNorm: 989555 1 Tablet(s) PO daily No Start Date 03/05/2015 Inactive Vitamin B-12 1,000 mcg/mL injection solution RxNorm: 275029 1 Millil[place](s) Inj Q2 weeks x2 months and then monthly injections No Start Date 05/20/2018 Inactive loratadine 10 mg tablet RxNorm: 349211 1 Tablet(s) PO daily No Start Date 07/21/2018 Inactive Medication Administered Medication Codes Instructions Start Date Status cyanocobalamin (vit B-12) 1,000 mcg/mL injection solution RxNorm: 542553 Milliliter 08/04/2018 No longer Active cyanocobalamin (vit B-12) 1,000 mcg/mL injection solution RxNorm: 642549 1Milliliter 07/16/2018 No longer Active cyanocobalamin (vit B-12) 1,000 mcg/mL injection solution RxNorm: 941011 Milliliter 07/01/2018 No longer Active cyanocobalamin (vit B-12) 1,000 mcg/mL injection solution RxNorm: 807944 Milliliter 06/15/2018 No longer Active cyanocobalamin (vit B-12) 1,000 mcg/mL injection solution RxNorm: 727382 Milliliter 06/02/2018 No longer Active cyanocobalamin (vit B-12) 1,000 mcg/mL injection solution RxNorm: 605055 Milliliter 05/21/2018 No longer Active Kenalog 40 mg/mL suspension for injection RxNorm: 3590930 1.5Milliliter 04/09/2018 No longer Active Kenalog 40 mg/mL suspension for injection RxNorm: 5453444 1Milliliter 10/16/2017 No longer Active Kenalog 40 mg/mL suspension for injection RxNorm: 8518975 Milliliter 02/07/2015 No longer Active Immunizations Vaccine Codes Date Status Influenza CVX: 141 06/25/2018 completed Pneumococcal (Adult) CVX: 33 08/28/2016 completed Assessments Condition Codes Effective Dates Essential (primary) hypertension ICD-10: I10 ICD-9: 401.1 08/04/2018 Major depressive disorder, recurrent, 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 ICD-9: 296.31 08/04/2018 Unsteadiness on feet ICD-10: R26.81 ICD-9: 781.2 08/04/2018 Other vitamin B12 deficiency anemias ICD-10: D51.8 ICD-9: 281.1 08/04/2018 Generalized abdominal pain ICD-10: R10.84 ICD-9: 789.07 07/22/2018 Fecal urgency ICD-10: R15.2 ICD-9: 787.63 07/22/2018 Encounter for immunization ICD-10: Z23 ICD-9: [...] Visit Reason For Visit Effective Dates Notes gait abnormality 08/04/2018 hypertension 07/22/2018 hypertension 04/21/2018 [...] Item Item Code Result Date Comp Metabolic Spf961 NA 138 mEq/L 09/03/2017 Comp Metabolic Feg997 K 3.9 mEq/L 09/03/2017 Comp Metabolic Srf922 CL 102 mEq/L 09/03/2017 Comp Metabolic Kyc166 CO2 32.0 mEq/L 09/03/2017 Comp Metabolic Xgs215 ANION GAP 8 09/03/2017 Comp Metabolic Ore888 GLUCOSE 89 mg/dL 09/03/2017 Comp Metabolic Wsb757 Creat 0.6 mg/dL 09/03/2017 Comp Metabolic Nhl017 eGFR 103 ml/min/1.73m2 09/03/2017 Comp Metabolic Yxn515 BUN 10 mg/dL 09/03/2017 Comp Metabolic Ryo409 B/C Ratio 16.7 Ratio 09/03/2017 Comp Metabolic Chu798 CALCIUM 8.9 mg/dL 09/03/2017 Comp Metabolic Vfz949 ALK PHOS 141 U/L 09/03/2017 Comp Metabolic Mhe291 AST(SGOT) 12 U/L 09/03/2017 Comp Metabolic Onf360 ALT(SGPT) 7 U/L 09/03/2017 Comp Metabolic Ira446 BILI T 0.6 mg/dL 09/03/2017 Comp Metabolic Sff370 ALBUMIN 3.6 g/dL 09/03/2017 Comp Metabolic Tkx391 TPRO 6.6 g/dL 09/03/2017 Comp Metabolic Ome800 GLOB 3.0 g/dL 09/03/2017 Comp Metabolic Zqg983 A/G Ratio 1.2 Ratio 09/03/2017 Comp Metabolic Eii347 Osmo 274 mOsmo 09/03/2017 Hepatic Pph238 ALBUMIN 3.7 g/dL 08/11/2017 Hepatic Gky295 TPRO 7.0 g/dL 08/11/2017 Hepatic Cyb930 GLOB 3.3 g/dL 08/11/2017 Hepatic Dqk783 A/G Ratio 1.1 Ratio 08/11/2017 Hepatic Jdy599 ALK PHOS 85 U/L 08/11/2017 Hepatic Ush138 ALT(SGPT) 11 U/L 08/11/2017 Hepatic Zhd986 AST(SGOT) 16 U/L 08/11/2017 Hepatic Wkw538 BILI T 0.6 mg/dL 08/11/2017 Hepatic Lmv133 BILI D 0.1 mg/dL 08/11/2017 Hepatic Fsa941 BILI I 0.5 mg/dL 08/11/2017 Hepatic Nka270 ALBUMIN 3.1 g/dL 07/18/2017 Hepatic Kxh470 TPRO 5.9 g/dL 07/18/2017 Hepatic Kzx859 GLOB 2.8 g/dL 07/18/2017 Hepatic Zuv554 A/G Ratio 1.1 Ratio 07/18/2017 Hepatic Vpp641 ALK PHOS 123 U/L 07/18/2017 Hepatic Nxa204 ALT(SGPT) 210 U/L 07/18/2017 Hepatic Usf048 AST(SGOT) 71 U/L 07/18/2017 Hepatic Ukg372 BILI T 1.1 mg/dL 07/18/2017 Hepatic Pme797 BILI D 0.4 mg/dL 07/18/2017 Hepatic Akf784 BILI I 0.7 mg/dL 07/18/2017 Cbc With [...] 24.5 % 02/25/2017 Cbc With Differential Ord2 [place]% 7.6 % 02/25/2017 Cbc With Differential Ord2 MCH 32.4 pg 02/25/2017 Cbc With Differential Ord2 Eos% 7.4 % 02/25/2017 Cbc With Differential Ord2 MCHC 32.3 pg 02/25/2017 Cbc With Differential Ord2 Baso% 0.6 % 02/25/2017 Cbc With Differential Ord2 PLT 145 K/ul 02/25/2017 Cbc With Differential Ord2 Neut ABS# 2.97 K/ul 02/25/2017 Cbc With Differential Ord2 RDW 12.6 % 02/25/2017 Cbc With Differential Ord2 Lymph ABS# 1.22 K/ul 02/25/2017 Cbc With Differential Ord2 [place] ABS# 0.4 K/ul 02/25/2017 Cbc With Differential [...] 98.0 fl 01/02/2017 Cbc With Differential Ord2 [place]% 7.8 % 01/02/2017 Cbc With Differential Ord2 [...] 0.90 K/ul 01/02/2017 Cbc With Differential Ord2 [place] ABS# 0.4 K/ul 01/02/2017 Cbc With Differential Ord2 Eos ABS# 0.3 K/ul 01/02/2017 Cbc With Differential Ord2 Baso ABS# 0.0 K/ul 01/02/2017 Lipid Ord30 CHOL 139 mg/dL 12/13/2016 Lipid Ord30 HDL 48.0 mg/dl 12/13/2016 Lipid Ord30 TRIG 84 mg/dL 12/13/2016 Lipid Ord30 LDL 74 mg/dL 12/13/2016 Lipid Ord30 C/HDL 2.9 Ratio 12/13/2016 Comp Metabolic Ozw681 NA 137 mEq/L 12/13/2016 Comp Metabolic Wof889 K 4.8 mEq/L 12/13/2016 Comp Metabolic Wrj969 CL 101 mEq/L 12/13/2016 Comp Metabolic Rmt597 CO2 32.0 mEq/L 12/13/2016 Comp Metabolic Nuu769 ANION GAP 9 12/13/2016 Comp Metabolic Toy904 GLUCOSE 95 mg/dL 12/13/2016 Comp Metabolic Noh034 Creat 0.8 mg/dL 12/13/2016 Comp Metabolic Cgn269 eGFR 79 ml/min/1.73m2 12/13/2016 Comp Metabolic Ldh146 BUN 15 mg/dL 12/13/2016 Comp Metabolic Kwu989 B/C Ratio 19.7 Ratio 12/13/2016 Comp Metabolic Krb337 CALCIUM 9.3 mg/dL 12/13/2016 Comp Metabolic Uol235 ALK PHOS 63 U/L 12/13/2016 Comp Metabolic Mvd282 AST(SGOT) 15 U/L 12/13/2016 Comp Metabolic Heh261 ALT(SGPT) 10 U/L 12/13/2016 Comp Metabolic Adg891 BILI T 0.7 mg/dL 12/13/2016 Comp Metabolic Yfg892 ALBUMIN 3.7 g/dL 12/13/2016 Comp Metabolic Gjh962 TPRO 6.8 g/dL 12/13/2016 Comp Metabolic Fip938 GLOB 3.2 g/dL 12/13/2016 Comp Metabolic Jwc982 A/G Ratio 1.2 Ratio 12/13/2016 Comp Metabolic Lxr643 Osmo 274 mOsmo 12/13/2016 Cbc With Differential [...] 97.4 fl 12/13/2016 Cbc With Differential Ord2 [place]% 9.9 % 12/13/2016 Cbc With Differential Ord2 [...] 1.17 K/ul 12/13/2016 Cbc With Differential Ord2 [place] ABS# 0.4 K/ul 12/13/2016 Cbc With Differential [...] 97.3 fl 12/19/2015 Cbc With Differential Ord2 [place]% 5.9 % 12/19/2015 Cbc With Differential Ord2 [...] 1.53 K/ul 12/19/2015 Cbc With Differential Ord2 [place] ABS# 0.3 K/ul 12/19/2015 Cbc With Differential [...] Ord30 C/HDL 2.8 Ratio 12/19/2015 Comp Metabolic Vdy525 NA 135 mEq/L 12/19/2015 Comp Metabolic Wly873 K 4.1 mEq/L 12/19/2015 Comp Metabolic Nsj159 CL 99 mEq/L 12/19/2015 Comp Metabolic Vzl894 CO2 27.0 mEq/L 12/19/2015 Comp Metabolic Jgu687 ANION GAP 13 12/19/2015 Comp Metabolic Qku481 GLUCOSE 83 mg/dL 12/19/2015 Comp Metabolic Maf607 Creat 0.7 mg/dL 12/19/2015 Comp Metabolic Bwh682 eGFR 88 ml/min/1.73m2 12/19/2015 Comp Metabolic Jne879 BUN 12 mg/dL 12/19/2015 Comp Metabolic Yyz832 B/C Ratio 17.4 Ratio 12/19/2015 Comp Metabolic Mwu512 CALCIUM 9.0 mg/dL 12/19/2015 Comp Metabolic Lgj669 ALK PHOS 68 U/L 12/19/2015 Comp Metabolic Uwd559 AST(SGOT) 16 U/L 12/19/2015 Comp Metabolic Grt325 ALT(SGPT) 13 U/L 12/19/2015 Comp Metabolic Wyf619 BILI T 0.7 mg/dL 12/19/2015 Comp Metabolic Nhr995 ALBUMIN 4.0 g/dL 12/19/2015 Comp Metabolic Gci752 TPRO 7.0 g/dL 12/19/2015 Comp Metabolic Tej412 GLOB 3.0 g/dL 12/19/2015 Comp Metabolic Qyd547 A/G Ratio 1.3 Ratio 12/19/2015 Comp Metabolic Luq890 Osmo 269 mOsmo 12/19/2015 Review of Systems System Result Effective Dates Constitutional No recent illness 08/04/2018 Constitutional No [...] Procedure Codes Date THER/PROPH/DIAG INJ SC/IM CPT-4: 93826 08/04/2018 VITAMIN B12 INJECTION CPT- 4: J3420 08/04/2018 THER/PROPH/DIAG INJ SC/IM CPT-4: 79201 07/16/2018 VITAMIN B12 INJECTION CPT- 4: J3420 07/16/2018 THER/PROPH/DIAG INJ SC/IM CPT-4: 71623 07/01/2018 VITAMIN B12 INJECTION CPT- 4: J3420 07/01/2018 ADMIN INFLUENZA VIRUS VAC CPT-4: G0008 06/25/2018 FLU VACC PRSV FREE INC ANTIG Formatting Model/CDA Sections, Assigned to/Miranda Ayala CPT-4: 07854Tirzkpo 06/25/2018 THER/PROPH/DIAG INJ SC/IM CPT-4: 45427 06/15/2018 VITAMIN B12 INJECTION CPT- 4: J3420 06/15/2018 THER/PROPH/DIAG INJ SC/IM CPT-4: 92484 06/02/2018 VITAMIN B12 INJECTION CPT- 4: J3420 06/02/2018 THER/PROPH/DIAG INJ SC/IM CPT-4: 65396 05/21/2018 VITAMIN B12 INJECTION CPT- 4: J3420 05/21/2018 TRIAMCINOLONE ACET INJ NOS CPT-4: J3301 04/09/2018 PPPS, SUBSEQ VISIT CPT- 4: G0439 12/18/2017 TRIAMCINOLONE ACET INJ NOS CPT-4: J3301 10/16/2017 DRAIN/INJECT JOINT/BURSA CPT-4: 51494 10/16/2017 PRESCRIP TRANSMIT VIA ERX SY CPT-4: G8553 05/05/2017 PRESCRIP TRANSMIT VIA ERX SY CPT-4: G8553 01/14/2017 PPPS, SUBSEQ VISIT CPT- 4: G0439 12/12/2016 PRESCRIP TRANSMIT VIA ERX SY CPT-4: G8553 10/15/2016 ADMIN PNEUMOCOCCAL VACCINE SNOMED CT: [id number] CPT-4: G0009 08/28/2016 Pneumococcal Polysaccharide Vaccine, 23-Valent, Ad CPT-4: 31741 08/28/2016 PRESCRIP TRANSMIT VIA ERX SY CPT-4: G8553 03/14/2016 PRESCRIP TRANSMIT VIA ERX SY CPT-4: G8553 12/19/2015 THER/PROPH/DIAG INJ SC/IM CPT-4: 19934 02/07/2015 TRIAMCINOLONE ACET INJ NOS CPT-4: J3301 02/07/2015 Vital Signs Date Vital 08/04/2018 Blood Pressure 1: 120/80 Code: 8480-6 Blood Pressure 1: 122/80 Code: 8480-6 Blood Pressure 2: 120/82 Code: 8480-6 BMI: 25.5 Code: 41768-6 Heart Rate 1: 67 bpm Heart Rate 1: 63 bpm Height: 5'1" Weight: 135 lbs Weight: 07/22/2018 Blood Pressure 1: 120/82 Code: 8480-6 BMI: 24.9 Code: 68623-7 Heart Rate 1: 64 bpm Height: 5'1" SpO2: 95% Weight: 132 lbs 04/21/2018 Blood Pressure 1: 108/70 Code: 8480-6 BMI: 24.4 Code: 85411-2 Heart Rate 1: 62 bpm Height: 5'1" SpO2: 94% Weight: 129 lbs 04/09/2018 Blood Pressure 1: 138/86 Code: 8480-6 BMI: 25.5 Code: 01552-9 Heart Rate 1: 64 bpm Height: 5'1" SpO2: 99% Temperature: 36.4 (C) / 97.5 (F) Weight: 135 lbs 01/19/2018 Blood Pressure 1: 128/76 Code: 8480-6 BMI: 25.9 Code: 29386-5 Heart Rate 1: 65 bpm Height: 5'1" SpO2: 98% Weight: 137 lbs 12/18/2017 Blood Pressure 1: 144/82 Code: 8480-6 BMI: 26.1 Code: 02180-0 Heart Rate 1: 57 bpm Height: 5'1" SpO2: 97% Waist Measure (cm): 74 cm Weight: 138 lbs 10/16/2017 Blood Pressure 1: 142/88 Code: 8480-6 BMI: 25.5 Code: 40606-4 Heart Rate 1: 63 bpm Height: 5'1" SpO2: 97% Weight: 135 lbs 09/03/2017 Blood Pressure 1: 144/90 Code: 8480-6 BMI: 26.3 Code: 67812-8 Heart Rate 1: 91 bpm Height: 5'1" SpO2: 96% Weight: 139 lbs 07/31/2017 Blood Pressure 1: 136/90 Code: 8480-6 BMI: 26.3 Code: 08998-9 Height: 5'1" Weight: 139 lbs 07/18/2017 Blood Pressure 1: 136/84 Code: 8480-6 06/16/2017 Blood Pressure 1: 136/84 Code: 8480-6 BMI: 26.5 Code: 97302-5 Heart Rate 1: 72 bpm Height: 5'1" SpO2: 97% Weight: 140 lbs 05/28/2017 Blood Pressure 1: 138/78 Code: 8480-6 BMI: 26.1 Code: 48009-9 Heart Rate 1: 70 bpm Height: 5'1" SpO2: 98% Weight: 138 lbs 05/05/2017 Blood Pressure 1: 140/86 Code: 8480-6 BMI: 25.3 Code: 39213-6 Heart Rate 1: 66 bpm Height: 5'1" SpO2: 99% Weight: 134 lbs 03/13/2017 Blood Pressure 1: 126/74 Code: 8480-6 BMI: 25.3 Code: 30387-3 Heart Rate 1: 73 bpm Height: 5'1" SpO2: 98% Weight: 134 lbs 02/10/2017 Blood Pressure 1: 148/88 Code: 8480-6 BMI: 25.9 Code: 20158-8 Heart Rate 1: 84 bpm Height: 5'1" SpO2: 97% Weight: 137 lbs 01/14/2017 Blood Pressure 1: 134/86 Code: 8480-6 BMI: 25.7 Code: 05462-9 Heart Rate 1: 83 bpm Height: 5'1" SpO2: 95% Weight: 136 lbs 01/07/2017 Blood Pressure 1: 136/88 Code: 8480-6 BMI: 25.1 Code: 73717-5 Heart Rate 1: 86 bpm Height: 5'1" SpO2: 94% Weight: 133 lbs 01/02/2017 Blood Pressure 1: 122/68 Code: 8480-6 Blood Pressure 2: 116/78 Code: 8480-6 01/01/2017 Blood Pressure 1: 90/52 Code: 8480-6 BMI: 25.1 Code: 02905- 5 Heart Rate 1: 86 bpm Height: 5'1" SpO2: 99% Weight: 133 lbs 12/20/2016 Blood Pressure 1: 120/76 Code: 8480-6 12/12/2016 Blood Pressure 1: 130/72 Code: 8480-6 BMI: 24.8 Code: 83996-7 Heart Rate 1: 62 bpm Height: 5'1" SpO2: 98% Waist Measure (cm): 79 cm Weight: 131 lbs 12/11/2016 Blood Pressure 1: 132/70 Code: 8480-6 BMI: 24.8 Code: 57623-1 Heart Rate 1: 60 bpm Height: 5'1" Weight: 131 lbs 10/15/2016 Blood Pressure 1: 108/66 Code: 8480-6 BMI: 24.8 Code: 61099-7 Heart Rate 1: 60 bpm Height: 5'1" Weight: 131 lbs 07/17/2016 Blood Pressure 1: 128/82 Code: 8480-6 BMI: 25.3 Code: 62875-7 Heart Rate 1: 50 bpm Height: 5'2" Weight: 136 lbs 05/15/2016 Blood Pressure 1: 108/70 Code: 8480-6 BMI: 23.4 Code: 29826-1 Heart Rate 1: 54 bpm Height: 5'2" SpO2: 96% Weight: 126 lbs 04/23/2016 Blood Pressure 1: 112/60 Code: 8480-6 BMI: 23.6 Code: 67311-2 Heart Rate 1: 92 bpm Height: 5'2" SpO2: 95% Weight: 127 lbs 03/14/2016 Blood Pressure 1: 118/74 Code: 8480-6 BMI: 24.0 Code: 41593-0 Heart Rate 1: 51 bpm Height: 5'2" SpO2: 94% Temperature: 36.8 (C) / 98.3 (F) Weight: 129 lbs 02/19/2016 Blood Pressure 1: 110/62 Code: 8480-6 BMI: 23.4 Code: 74754-2 Heart Rate 1: 74 bpm Height: 5'2" SpO2: 97% Weight: 126 lbs 12/19/2015 Blood Pressure 1: 108/74 Code: 8480-6 BMI: 23.6 Code: 82554-1 Heart Rate 1: 52 bpm Height: 5'2" Weight: 127 lbs 03/06/2015 Blood Pressure 1: 136/88 Code: 8480-6 Heart Rate 1: 64 bpm Weight: 129 lbs 02/07/2015 Blood Pressure 1: 142/90 Code: 8480-6 BMI: 24.5 Code: 36582-2 Heart Rate 1: 82 bpm Height: 5'2" Weight: 132 lbs Functional Status No Functional Status data History of Present Illness Symptom Name Status Result Effective Date Notes gait abnormality Quality intermittent 08/04/2018 None gait [...] data Encounters Encounter Performer Location Codes Date [id number]) 50549 EST. PATIENT, LEVEL IV Diagnosis: Other vitamin B12 deficiency anemias[ICD10: D51.8] Diagnosis: Essential (primary) hypertension[ICD10: I10] Diagnosis: Major depressive disorder, recurrent, mild[ICD10: F33.0] Diagnosis: Unsteadiness on feet[ICD10: R26.81] Kim Burden MD, [facility] CPT- 4: 77055 08/04/2018 ([id number]) 28909 EST. PATIENT, LEVEL IV Diagnosis: Fecal urgency[ICD10: R15.2] Diagnosis: Generalized abdominal pain[ICD10: R10.84] Diagnosis: Essential (primary) hypertension[ICD10: I10] Kim Burden MD, [facility] CPT-4: 33092 07/22/2018 ([id number]) 52990 EST. PATIENT, LEVEL IV Diagnosis: Essential (primary) hypertension[ICD10: I10] Diagnosis: Other emphysema[ICD10: J43.8] Diagnosis: Candidal stomatitis[ICD10: B37.0] Kim Burden MD, [facility] CPT- 4: 89363 04/21/2018 ([id number]) 32208 EST. PATIENT, LEVEL III Diagnosis: Chronic obstructive pulmonary disease with (acute) exacerbation[ICD10: J44.1] Mallorie Burden MD, [facility] CPT-4: 60947 04/09/2018 ([id number]) 01243 EST. PATIENT, LEVEL IV Diagnosis: Essential (primary) hypertension[ICD10: I10] Diagnosis: Other emphysema[ICD10: J43.8] Kim Burden MD, [facility] CPT-4: 76434 01/19/2018 ([id number]) 27840 EST. PATIENT, LEVEL IV Diagnosis: Essential (primary) hypertension[ICD10: I10] Diagnosis: Other emphysema[ICD10: J43.8] Diagnosis: Dependence on supplemental oxygen[ICD10: Z99.81] Diagnosis: Hypoxemia[ICD10: R09.02] Diagnosis: Pain in left knee[ICD10: M25.562] Diagnosis: Effusion, left knee[ICD10: M25.462] Kim Burden MD, [facility] CPT- 4: 28617 10/16/2017 15759 EST. PATIENT, LEVEL III Diagnosis: Pain in thoracic spine[ICD10: M54.6] Pebbles Burden MD, [facility] CPT- 4: 57235 09/03/2017 ([id number]) 85679 EST. PATIENT, LEVEL III Diagnosis: Essential (primary) hypertension[ICD10: I10] Diagnosis: Other emphysema[ICD10: J43.8] Kim Burden MD, [facility] CPT-4: 21382 07/31/2017 ([id number]) Miscellaneous no charge Diagnosis: Essential (primary) hypertension[ICD10: I10] Mallorie Burden MD, [facility] CPT-4: 95688 07/18/2017 ([id number]) 09970 EST. PATIENT, LEVEL III Diagnosis: Pain in left knee[ICD10: M25.562] Diagnosis: Effusion, left knee[ICD10: M25.462] Mallorie Burden MD, [facility] CPT-4: 36753 06/16/2017 ([id number]) 38756 EST. PATIENT, LEVEL III Diagnosis: Essential (primary) hypertension[ICD10: I10] Diagnosis: Unsteadiness on feet[ICD10: R26.81] Kim Burden MD, [facility] CPT- 4: 04467 05/28/2017 ([id number]) 34853 EST. PATIENT, LEVEL IV Diagnosis: Essential (primary) hypertension[ICD10: I10] Diagnosis: Chronic obstructive pulmonary disease with acute lower respiratory infection[ICD10: J44.0] Kim Burden MD, [facility] CPT-4: 92509 05/05/2017 ([id number]) 46070 EST. PATIENT, LEVEL IV Diagnosis: Essential (primary) hypertension[ICD10: I10] Diagnosis: Major depressive disorder, recurrent, mild[ICD10: F33.0] Kim Burden MD [facility] CPT-4: 83078 03/13/2017 ([id number]) 09839 EST. PATIENT, LEVEL IV Diagnosis: Essential (primary) hypertension[ICD10: I10] Diagnosis: Gastro-esophageal reflux disease without esophagitis[ICD10: K21.9] Diagnosis: Chronic obstructive pulmonary disease, unspecified[ICD10: J44.9] Kim Burden MD [facility] CPT-4: 54214 02/10/2017 ([id number]) 02031 EST. PATIENT, LEVEL IV Diagnosis: Essential (primary) hypertension[ICD10: I10] Diagnosis: Gastro-esophageal reflux disease without esophagitis[ICD10: K21.9] Diagnosis: Chronic obstructive pulmonary disease with acute lower respiratory infection[ICD10: J44.0] Kim Burden MD [facility] CPT-4: 34254 01/14/2017 98126 EST. PATIENT, LEVEL IV Diagnosis: Other fatigue[ICD10: R53.83] Diagnosis: Other malaise[ICD10: R53.81] Diagnosis: Headache[ICD10: R51] Diagnosis: Palpitations[ICD10: R00.2] Diagnosis: Dehydration[ICD10: E86.0] Pebbles Burden MD, [facility] CPT-4: 55537 01/07/2017 ([id number]) Miscellaneous no charge Diagnosis: Essential (primary) hypertension[ICD10: I10] Pebbles Burden MD [facility] CPT-4: 50668 01/02/2017 70055 EST. PATIENT, LEVEL IV Diagnosis: Chronic obstructive pulmonary disease, unspecified[ICD10: J44.9] Diagnosis: Essential (primary) hypertension[ICD10: I10] Diagnosis: Other fatigue[ICD10: R53.83] Pebbles Burden MD [facility] CPT-4: 61075 01/01/2017 ([id number]) Miscellaneous no charge Diagnosis: Essential (primary) hypertension[ICD10: I10] Pebbles Burden MD [facility] CPT-4: 42118 12/20/2016 ([id number]) 06628 EST. 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 PATIENT, LEVEL IV Diagnosis: Essential (primary) hypertension[ICD10: I10] Diagnosis: Other allergic rhinitis[ICD10: J30.89] Diagnosis: Gastro-esophageal reflux disease without esophagitis[ICD10: K21.9] Kim Burden MD, [facility] CPT-4: 76685 10/15/2016 ([id number]) 99223 EST. PATIENT, LEVEL III Diagnosis: Essential (primary) hypertension[ICD10: I10] Diagnosis: Major depressive disorder, recurrent, mild[ICD10: F33.0] Kim Burden MD [facility] CPT-4: 24209 07/17/2016 ([id number]) 07850 EST. PATIENT, LEVEL III Diagnosis: Pain in left hip[ICD10: M25.552] Diagnosis: Acute laryngopharyngitis[ICD10: J06.0] Kim Burden MD, [facility] CPT-4: 15335 05/15/2016 ([id number]) 51356 EST. PATIENT, LEVEL III Diagnosis: Fracture of unspecified parts of lumbosacral spine and pelvis, initial encounter for closed fracture[ICD10: S32.9XXA] Diagnosis: Essential (primary) hypertension[ICD10: I10] Kim Burden MD [facility] CPT-4: 48083 04/23/2016 48588 EST. PATIENT, LEVEL IV Diagnosis: Acute laryngopharyngitis[ICD10: J06.0] Diagnosis: Other allergic rhinitis[ICD10: J30.89] Pebbles Burden MD, [facility] CPT- 4: 76059 03/14/2016 72707 EST. PATIENT, LEVEL IV Diagnosis: Dysuria[ICD10: R30.0] Diagnosis: Left lower quadrant pain[ICD10: R10.32] Pebbles Burden MD, [facility] CPT-4: 67336 02/19/2016 ([id number]) 50008 EST. PATIENT, LEVEL IV Diagnosis: Essential (primary) hypertension[ICD10: I10] Diagnosis: Gastro-esophageal reflux disease without esophagitis[ICD10: K21.9] Diagnosis: Major depressive disorder, recurrent, mild[ICD10: F33.0] [facility] CPT-4: 34189 12/19/2015 ([id number]) 66228 EST. PATIENT, LEVEL IV Diagnosis: ESSENTIAL HYPERTENSION[ICD9: 401.9] Diagnosis: ACUTE URI[ICD9: 465.9] [facility] CPT-4: 93748 03/06/2015 ([id number]) OFFICE VISIT, NEW - LEVEL 4 Diagnosis: ESOPHAGEAL REFLUX[ICD9: 530.81] Diagnosis: ESSENTIAL HYPERTENSION[ICD9: 401.9] Diagnosis: COPD (chronic obstructive pulmonary disease)[ICD9: 496] Diagnosis: ALLERGIC RHINITIS[ICD9: 477.9] [facility] CPT-4: 10150 02/07/2015 Plan of Care Planned Activity Notes Codes Status Date Visit Plan: Gait instability - we will [...] of anxiolytic. 08/04/2018 Appointment: Kim Burden WPtel: [address] [place], [place] [address] (15 min) Moderate 08/04/2018 Appointment: Nurse Visit [...] home. 07/22/2018 [phone] ([facility] Moderate 07/22/2018 Patient [...] and swallow. 04/21/2018 App[facility]ment[phone] ([facility] min) Moderate 04/21/2018 Patient [...] acute changes. 04/09/2018 Appointment: Mallorie Wetzel WPtel: [phone] [phone] (30 min) Complex 04/09/2018 Patient Education: [...] changes. 01/19/2018 Appointment: [facility] ([facility] min) Moderate 01/19/2018 Patient Education: Patient Medication Summary Completed 01/19/2018 Appointment[phone] (15 min) Moderate 01/14/2018 Visit Plan: Medicare [...] surrogate. 12/18/2017 [facility]ment[phone] [facility] - Annual Wellness Visit 12/18/2017 Patient [...] home. 10/16/2017 Appointment: Kim Burden WPtel: [facility] (15 min) Moderate 10/16/2017 Patient [...] concerns. 09/03/2017 Appointment: Pebbles Lund [facility]Ptel[facility] ([facility] min) Moderate 09/03/2017 Patient Education: Patient Medication Summary Completed 09/03/2017 Appointment: [facility] Bur[facility] [place] (15 min) Moderate 08/11/2017 Appointment: [facility] Bur[facility] ([facility] min) Moderate 08/11/2017 Patient Education: [...] treatment. 07/31/2017 Appointment: [phone] [facility] (15 min) Moderate 07/31/2017 Patient Education: Patient Medication Summary Completed 07/31/2017 Appointment: Nurse Visit 07/18/2017 Patient Education: Patient Medication Summary Completed 07/18/2017 Patient Education: Patient Medication Summary Completed 07/18/2017 Appointment: Kim Burden WPtel: [phone] [facility] [place] (15 min) Moderate 06/30/2017 Visit Plan: Effusion left knee-fall 2 weeks ago-recommend compression of joint and refer to Ortho for evaluation and treatment-will refer to Dr Pryor/Quinton Mccormick. Patient verbalized understanding of plan. 06/16/2017 Appointment: Mall[facility] Wetzel [phone] [phone] [place] (30 min) Complex 06/16/2017 Patient Education: [...] when active. 05/28/2017 Appointment: [phone] [place] (15 min) Moderate 05/28/2017 Patient [...] changes. 05/05/2017 Appointment: Kim Burden WPtel: [phone] [facility] (15 min) Moderate 05/05/2017 Patient [...] current medications. 03/13/2017 Appointment: Kim Burden WPtel: [phone] [facility] (15 min) Moderate 03/13/2017 Patient [...] worsening. 02/10/2017 Appointment: Kim Burden WPtel: [phone] [facility] (15 min) Moderate 02/10/2017 Patient [...] improving. 01/14/2017 Appointment: [phone] ([facility] min) Moderate 01/14/2017 Patient [...] or concerns. 01/07/2017 Appointment: Pebbles Lund [phone] (30 min) Complex 01/07/2017 Patient Education: Patient [...] pressures. 01/01/2017 Appointment: Pebbles Lund WPtel: [phone] [facility] (30 min) Complex 01/01/2017 Patient Education: [...] Appointment: Pebbles Lund [phone] [facility] [facility] - Annual Wellness Visit 12/12/2016 Patient [...] time. 12/11/2016 Appointment: [phone] (15 min) Moderate 12/11/2016 Patient Education: Patient Medication Summary Completed 12/11/2016 Appointment: Mallorie Wetzel WPtel: [phone] [phone] [place] (30 min) Complex 12/10/2016 Visit [...] improving. 10/15/2016 Appointment: [phone] (15 min) Moderate 10/15/2016 Patient Education: [...] restaurant. 07/17/2016 Appointment: Kim Burden WPtel: [phone] [facility] (15 min) Moderate 07/17/2016 Patient Education: Patient Medication Summary Completed 07/17/2016 Appointment: Kim Burden WPtel: [facility] (15 min) Moderate 06/10/2016 Visit Plan: Hip pain - persistent but improving - continue with current treatment plan. Pt to call if her symptoms are not improving or if her hip pain worsens. URI symptoms - supportive care, use otc allergy medications. 05/15/2016 Appointment: Kim Burden WPtel: [facility] (15 min) Moderate 05/15/2016 Patient Education: [...] not improving. 04/23/2016 Appointment: Kim Burden WPtel: [facility] [place] (15 min) Moderate 04/23/2016 Patient Education: Patient Medication Summary Completed 04/23/2016 Patient Education: Hypertension Completed 04/23/2016 Care Plan: X-RAY EXAM OF ABDOMEN LOINC : 37891-8 Pending 03/18/2016 Visit Plan: URI - Pt [...] spray. 03/14/2016 Appointment: Pebbles Lund WPtel: [phone] [facility] (30 min) Complex 03/14/2016 Patient Education: Patient Medication Summary Completed 03/14/2016 Patient Education: Patient Medication Summary Completed 02/29/2016 Visit Plan: Flank pain - pt is currently being treated for UTI, but is having continued left flank pain - will get KUB - pt is to notify clinic if symptoms do not improve, or with any concerns. 02/19/2016 Appointment: Pebbles Lund WPtel: [phone] [facility] (30 min) Complex 02/19/2016 Patient Education: Patient Medication Summary Completed 02/19/2016 Appointment: Kim Burden WPtel: [phone] [facility] (15 min) Moderate 01/22/2016 Visit Plan: [...] improving. 12/19/2015 Appointment: [phone] (15 min) Moderate 12/19/2015 Patient Education: [...] RX. 03/06/2015 Appointment: [phone] Follow up 03/06/2015 Patient Education: [...] Completed 02/07/2015 Care Plan: SCREENINGMAMMOGRAPHYDIGITAL LOINC : 87044-3 Ordered 02/07/2015 Care Plan: COMPLETE CBC AUTOMATED LOINC : 21112-3 Ordered 02/07/2015 Instructions Comment CHECK YOUR BLOOD PRESSURE AND [...] current medications. TAKE WITH FOOD AND PROBIOTIC ([employer] OR Yodo1) . URI - Pt advised to increase [...] advance movements - call if not improving. decrease omeprazole to 20mg at bedtime start on a probiotic to help decrease GI upset./loose stools - [facility] or [facility] . Hypertension [...] with antidepressant - decrease dose of anxiolytic. restart the metoprolol 50mg pill and take [...]
--- OUTSIDE RECORDS SUMMARY | 2019-04-06 09:40 | XMS REPORT | CCD ---
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 Name Role Phone PP Unavailable CCM Unavailable Summary Purpose Interface Exchange Insurance Providers Payer name Policy type / Coverage type Covered republican ID Effective Begin Date Effective End Date WPS Medicare Part B Medicare Part B [id number] 2018 Unknown AETNA Medicare Part B [id number] Unknown Family history Brother Diagnosis Age At [...] 02/07/2015 Employment Unknown Currently employed works at [employer] 02/07/[address]: 6972113 Quit over 10 years ago 199302/07/2015 Number [...] (vit B-12) 1,000 mcg/mL injection solution RxNorm: 561093 Milliliter(s) Inj 08/04/2018 08/04/2018 Inactive alprazolam 1 mg tablet RxNorm: 351935 1/2 Tablet(s) PO BID 08/04/2018 04/30/2019 Active cholestyramine (with sugar) 4 gram powder for susp in a packet RxNorm: 677998 1/2 to 1 packet PO TID take 30 minutes before meals 07/22/2018 07/16/2019 Active cyanocobalamin (vit B-12) 1,000 mcg/mL injection solution RxNorm: 662160 1 Milliliter(s) Inj 07/16/2018 07/16/2018 Inactive omeprazole 20 mg capsule,delayed release RxNorm: 527246 Capsule(s) TAKE 1 CAPSULE TWICE DAILY 07/01/2018 06/25/2019 Active cyanocobalamin (vit B-12) 1,000 mcg/mL injection solution RxNorm: 216450 Milliliter(s) Inj 07/01/2018 07/01/2018 Inactive omeprazole 20 mg capsule,delayed release RxNorm: 533410 TAKE 1 CAPSULE TWICE DAILY 07/01/2018 06/30/2018 Inactive alprazolam 1 mg tablet RxNorm: 371864 1 Tablet(s) PO TID 07/01/2018 08/03/2018 Inactive cyanocobalamin (vit B-12) 1,000 mcg/mL injection solution RxNorm: 228048 Milliliter(s) Inj 06/15/2018 06/15/2018 Inactive cyanocobalamin (vit B-12) 1,000 mcg/mL injection solution RxNorm: 726182 Milliliter(s) Inj 06/02/2018 06/02/2018 Inactive fluticasone 50 mcg/actuation nasal spray,suspension RxNorm: 3132002 1 [place] NASAL BID 05/26/2018 05/20/2019 Active Vitamin B-12 1,000 mcg/mL injection solution RxNorm: 194565 1 Milliliter(s) Inj Q2 weeks x2 months and then monthly injections 05/21/2018 No Stop Date Active cyanocobalamin (vit B-12) 1,000 mcg/mL injection solution RxNorm: 364259 Milliliter(s) Inj 05/21/2018 05/21/2018 Inactive fluticasone 50 mcg/actuation nasal spray,suspension RxNorm: 2893938 1 [place] NASAL BID 05/19/2018 05/25/2018 Inactive fluticasone 50 mcg/actuation nasal spray,suspension RxNorm: 7832264 1 [place] NASAL BID 05/18/2018 05/18/2018 Inactive fluticasone 50 mcg/actuation nasal spray,suspension RxNorm: 7624856 1 [place] NASAL BID 05/15/2018 05/17/2018 Inactive fluticasone 50 mcg/actuation nasal spray,suspension RxNorm: 4067810 1 [place] NASAL BID 05/15/2018 05/14/2018 Inactive nystatin 100,000 unit/mL oral suspension RxNorm: 513938 5 Milliliter(s) PO QID 04/21/2018 04/30/2018 Inactive Breo Ellipta 100 mcg-25 mcg/dose powder for inhalation RxNorm: 0653356 1 INH daily 04/09/2018 04/03/2019 Active please call patient with jaramillo before sending prednisone 20 mg tablet RxNorm: 960245 1 Tablet(s) PO BID 04/09/2018 04/13/2018 Inactive start tomorrow Kenalog 40 mg/mL suspension for injection RxNorm: 6814319 1.5 Milliliter(s) Inj 04/09/2018 04/09/2018 Inactive Breo Ellipta 100 mcg-25 mcg/dose powder for inhalation RxNorm: 2593597 1 INH daily 04/09/2018 04/08/2018 Inactive alprazolam 1 mg tablet RxNorm: 454603 1 Tablet(s) PO TID 03/13/2018 06/30/2018 Inactive losartan 100 mg tablet RxNorm: 416248 TAKE 1 TABLET EVERY EVENING 03/02/2018 02/13/2021 Active Ventolin HFA 90 mcg/actuation aerosol inhaler RxNorm: 158154 2 INH Q4-6H as needed 12/29/2017 02/26/2018 Inactive Ventolin HFA 90 mcg/actuation aerosol inhaler RxNorm: 246143 2 INH Q4-6H as needed 12/29/2017 12/28/2017 Inactive Diflucan 150 mg tablet RxNorm: 533876 1 Tablet(s) PO daily 11/03/2017 11/05/2017 Inactive please call pt to let herknow when to pick- up the med Keflex 500 mg capsule RxNorm: 337810 1 Capsule(s) PO TID 10/23/2017 10/29/2017 Inactive Kenalog 40 mg/mL suspension for injection RxNorm: 9910940 1 Milliliter(s) Inj 10/16/2017 10/16/2017 Inactive ibuprofen 800 mg tablet RxNorm: 085881 TAKE 1 TABLET THREE TIMES DAILY 10/15/2017 01/07/2019 Active Lexapro 10 mg tablet RxNorm: 030005 TAKE 1 TABLET EVERY DAY 10/15/2017 10/09/2018 Active hydrocodone 5 mg-acetaminophen 325 mg tablet RxNorm: 229955 1 Tablet(s) PO QID as needed 09/03/2017 07/21/2018 Inactive omeprazole 20 mg capsule,delayed release RxNorm: 068576 1 Capsule(s) PO BID 09/02/2017 06/30/2018 Inactive alprazolam 1 mg tablet RxNorm: 298860 1 Tablet(s) PO TID 09/02/2017 03/12/2018 Inactive metoprolol tartrate 50 mg tablet RxNorm: 277955 1/2 Tablet(s) PO BID 06/26/2017 06/20/2018 Inactive omeprazole 20 mg capsule,delayed release RxNorm: 862927 1 Capsule(s) PO BID 06/05/2017 09/01/2017 Inactive omeprazole 20 mg capsule,delayed release RxNorm: 959099 1 Capsule(s) PO BID 05/28/2017 06/04/2017 Inactive omeprazole 20 mg capsule,delayed release RxNorm: 326733 1 Capsule(s) PO QPM 05/27/2017 05/27/2017 Inactive Breo Ellipta 100 mcg-25 mcg/dose powder for inhalation RxNorm: 6378231 1 INH daily 05/05/2017 04/08/2018 Inactive alprazolam 1 mg tablet RxNorm: 091721 1 Tablet(s) PO TID 02/10/2017 08/07/2017 Inactive metoprolol tartrate 50 mg tablet RxNorm: 583363 1/2 Tablet(s) PO BID 02/10/2017 06/25/2017 Inactive losartan 100 mg tablet RxNorm: 927096 1 Tablet(s) PO QPM 02/10/2017 02/04/2018 Inactive losartan 50 mg tablet RxNorm: 485522 2 Tablet(s) PO QPM 01/23/2017 02/09/2017 Inactive Diflucan 150 mg tablet RxNorm: 683986 1 Tablet(s) PO daily 01/20/2017 01/22/2017 Inactive please call pt to let herknow when to pick- up the med Diflucan 150 mg tablet RxNorm: 617473 1 Tablet(s) PO daily 01/20/2017 01/19/2017 Inactive please call pt to let herknow when to pick- up the med losartan 50 mg tablet RxNorm: 739202 1 Tablet(s) PO QPM 01/14/2017 01/22/2017 Inactive Cipro 500 mg tablet RxNorm: 349365 1 Tablet(s) PO BID 01/08/2017 01/17/2017 Inactive Cipro 500 mg tablet RxNorm: 936663 1 Tablet(s) PO BID 01/08/2017 01/07/2017 Inactive Lexapro 10 mg tablet RxNorm: 829969 TAKE 1 TABLET EVERY DAY 12/20/2016 10/14/2017 Inactive metoprolol tartrate 50 mg tablet RxNorm: 173292 1 Tablet(s) PO in the morning and 1.5 pill at night 12/11/2016 01/13/2017 Inactive spironolactone 25 mg tablet RxNorm: 650216 TAKE 1 TABLET EVERY DAY 11/04/2016 07/21/2018 Inactive metoprolol tartrate 50 mg tablet RxNorm: 950119 TAKE 1 TABLET TWICE DAILY 10/29/2016 12/10/2016 Inactive ibuprofen 800 mg tablet RxNorm: 722194 TAKE 1 TABLET THREE TIMES DAILY 10/21/2016 10/14/2017 Inactive Astepro 0.15 % (205.5 mcg) nasal spray RxNorm: 3114453 1 [place] NASAL BID 10/15/2016 10/14/2016 Inactive Astepro 0.15 % (205.5 mcg) nasal spray RxNorm: 8489068 1 [place] NASAL BID 10/15/2016 07/21/2018 Inactive Astepro 0.15 % (205.5 mcg) nasal spray RxNorm: 4156093 1 [place] NASAL BID 10/15/2016 10/14/2016 Inactive omeprazole 20 mg capsule,delayed release RxNorm: 962572 1 Capsule(s) PO QPM 10/15/2016 05/26/2017 Inactive omeprazole 20 mg capsule,delayed release RxNorm: 907243 1 Capsule(s) QPM 10/15/2016 10/14/2016 Inactive omeprazole 20 mg capsule,delayed release RxNorm: 969210 TAKE 1 CAPSULE TWICE DAILY 09/02/2016 10/14/2016 Inactive Lexapro 10 mg tablet RxNorm: 065853 TAKE 1 TABLET EVERY DAY 08/21/2016 12/19/2016 Inactive calcitonin (salmon) 200 unit/actuation nasal spray RxNorm: 469987 1 [place] NASAL daily ONE SPRAY PER ONE NOSTRIL DAILY- ALTERNATE NOSTRILS DAILY 05/31/2016 05/30/2016 Inactive She will do this for 3 months- If she wants to do a 3 month supply at one time she can without refill calcitonin (salmon) 200 unit/actuation nasal spray RxNorm: 406607 1 [place] NASAL daily ONE SPRAY PER ONE NOSTRIL DAILY- ALTERNATE NOSTRILS DAILY 05/31/2016 07/30/2016 Inactive x3 months- no refills Forteo 20 mcg/dose (600 mcg/2.4 mL) subcutaneous pen injector RxNorm: 2277373 1 injection SQ daily 05/22/2016 05/30/2016 Inactive call pt with jaramillo first Forteo 20 mcg/dose (600 mcg/2.4 mL) subcutaneous pen injector RxNorm: 2671207 1 injection SQ daily 05/22/2016 05/21/2016 Inactive Prolia 60 mg/mL subcutaneous syringe RxNorm: 680835 1 Milliliter(s) SQ every 6 months 05/13/2016 07/21/2018 Inactive Please check jaramillo through insurance and let me know- Thanks! Mary Ellen alprazolam 1 mg tablet RxNorm: 826387 1 Tablet(s) PO TID 05/08/2016 11/01/2016 Inactive Lexapro 10 mg tablet RxNorm: 984363 TAKE 1 TABLET EVERY DAY 04/22/2016 08/20/2016 Inactive spironolactone 25 mg tablet RxNorm: 594002 TAKE 1 TABLET EVERY DAY 04/22/2016 11/03/2016 Inactive Diflucan 150 mg tablet RxNorm: 975732 1 Tablet(s) PO daily 03/20/2016 04/14/2016 Inactive Diflucan 150 mg tablet RxNorm: 361743 1 Tablet(s) PO daily 03/20/2016 03/19/2016 Inactive Augmentin 500 mg-125 mg tablet RxNorm: 382863 1 Tablet(s) PO TID 03/14/2016 03/23/2016 Inactive omeprazole 20 mg capsule,delayed release RxNorm: 863634 1 Tablet(s) PO BID 03/06/2016 09/01/2016 Inactive [SAVINGS FOR NON-COVERED DRUGS -- BIN:988169, PCN: ASPROD1, Group: XXXXX, ID# XXXXXXX, Questions: . THIS IS NOT INSURANCE.] amlodipine 5 mg tablet RxNorm: 305674 TAKE 1 TABLET EVERY DAY 03/01/2016 04/22/2016 Inactive omeprazole 20 mg tablet,delayed release RxNorm: 815043 1 Tablet(s) PO BID 02/27/2016 03/05/2016 Inactive [SAVINGS FOR NON-COVERED DRUGS -- BIN:604012, PCN: ASPROD1, Group: XXXXX, ID# XXXXXXX, Questions: . THIS IS NOT INSURANCE.] spironolactone 25 mg tablet RxNorm: 433823 TAKE 1 TABLET EVERY DAY 12/21/2015 04/21/2016 Inactive Lexapro 10 mg tablet RxNorm: 265702 1 Tablet(s) PO daily 12/19/2015 01/01/2016 Inactive Lexapro 10 mg tablet RxNorm: 935590 1 Tablet(s) PO daily 12/19/2015 02/09/2017 Inactive Lexapro 10 mg tablet RxNorm: 439381 1 Tablet(s) PO daily 12/19/2015 12/18/2015 Inactive alprazolam 1 mg tablet RxNorm: 066585 1 Tablet(s) PO TID 12/01/2015 02/28/2016 Inactive ibuprofen 800 mg tablet RxNorm: 621113 1 Tablet(s) PO TID 10/26/2015 10/20/2016 Inactive alprazolam 1 mg tablet RxNorm: 962269 1 Tablet(s) PO TID 08/23/2015 07/21/2018 Inactive spironolactone 25 mg tablet RxNorm: 800619 1 Tablet(s) PO daily 08/21/2015 12/20/2015 Inactive metoprolol tartrate 50 mg tablet RxNorm: 644219 1 Tablet(s) PO BID 08/10/2015 08/03/2016 Inactive [SAVINGS FOR NON-COVERED DRUGS -- BIN:567952, PCN: ASPROD1, Group: XXXXX, ID# XXXXXXX, Questions: . THIS IS NOT INSURANCE.] omeprazole 20 mg tablet,delayed release RxNorm: 790160 1 Tablet(s) PO BID 08/07/2015 02/02/2016 Inactive [SAVINGS FOR NON-COVERED DRUGS -- BIN:496011, PCN: ASPROD1, Group: XXXXX, ID# XXXXXXX, Questions: . THIS IS NOT INSURANCE.] Keflex 500 mg capsule RxNorm: 565033 1 Capsule(s) PO TID 07/10/2015 07/16/2015 Inactive alprazolam 1 mg tablet RxNorm: 678560 1 Tablet(s) PO TID 06/02/2015 08/22/2015 Inactive alprazolam 1 mg tablet RxNorm: 479843 1 Tablet(s) PO TID 03/29/2015 06/01/2015 Inactive amlodipine 5 mg tablet RxNorm: 286595 1 Tablet(s) PO daily 03/06/2015 02/29/2016 Inactive Nasonex 50 mcg/actuation [place] RxNorm: 911278 1 [place] NASAL daily 03/03/2015 03/02/2015 Inactive Keflex 500 mg capsule RxNorm: 081448 1 Capsule(s) PO TID 03/03/2015 03/02/2015 Inactive Nasonex 50 mcg/actuation [place] RxNorm: 813627 1 [place] NASAL daily 03/03/2015 05/01/2015 Inactive Keflex 500 mg capsule RxNorm: 624370 1 Capsule(s) PO TID 03/03/2015 03/05/2015 Inactive Carafate 1 gram tablet RxNorm: 936740 TAKE 1 TABLET FOUR TIMES DAILY 30 MINUTES BEFORE MEALS AND AT BEDTIME 02/28/2015 12/18/2015 Inactive Kenalog 40 mg/mL suspension for injection RxNorm: 4173396 Milliliter(s) Inj 02/07/2015 02/07/2015 Inactive [SAVINGS FOR NON-COVERED DRUGS -- BIN:073242, PCN: ASPROD1, Group: XXXXX, ID# XXXXXXX, Questions: . THIS IS NOT INSURANCE.] metoprolol tartrate 50 mg tablet RxNorm: 560603 1 Tablet(s) PO BID 02/07/2015 08/09/2015 Inactive [SAVINGS FOR NON-COVERED DRUGS -- BIN:991210, PCN: ASPROD1, Group: XXXXX, ID# XXXXXXX, Questions: . THIS IS NOT INSURANCE.] Carafate 1 gram tablet RxNorm: 608092 1 Tablet(s) PO QID 02/07/2015 02/27/2015 Inactive 30 min before meals and at bedtime omeprazole 20 mg tablet,delayed release RxNorm: 865926 1 Tablet(s) PO BID 02/07/2015 08/05/2015 Inactive [SAVINGS FOR NON-COVERED DRUGS -- BIN:950635, PCN: ASPROD1, Group: XXXXX, ID# XXXXXXX, Questions: . THIS IS NOT INSURANCE.] Vitamin D3 2,000 unit tablet RxNorm: 696829 1 Tablet(s) PO daily No Start Date Active aspirin 81 mg tablet RxNorm: 745059 1 Tablet(s) PO daily No Start Date Active amlodipine 2.5 mg tablet RxNorm: 555250 1 Tablet(s) PO daily No Start Date 03/05/2015 Inactive spironolactone 25 mg tablet RxNorm: 684143 1 Tablet(s) PO daily No Start Date 08/20/2015 Inactive cetirizine 10 mg tablet RxNorm: 9518907 1 Tablet(s) PO daily No Start Date 12/18/2015 Inactive metoprolol tartrate 50 mg tablet RxNorm: 235240 1 Tablet(s) PO daily No Start Date 02/06/2015 Inactive ipratropium bromide 0.06 % nasal spray RxNorm: 429760 nasal No Start Date 12/18/2015 Inactive alprazolam 1 mg tablet RxNorm: 983342 1 Tablet(s) PO TID No Start Date 03/28/2015 Inactive Prolia 60 mg/mL subcutaneous syringe RxNorm: 872645 1 Milliliter(s) SQ every 6 months No Start Date 05/12/2016 Inactive Please check jaramillo through insurance and let me know- Thanks! Mary Ellen ibuprofen 800 mg tablet RxNorm: 501961 1 Tablet(s) PO TID No Start Date 10/25/2015 Inactive Protonix 40 mg tablet,delayed release RxNorm: 680087 1 Tablet(s) PO daily No Start Date 03/05/2015 Inactive Vitamin B-12 1,000 mcg/mL injection solution RxNorm: 076298 1 Milliliter(s) Inj Q2 weeks x2 months and then monthly injections No Start Date 05/20/2018 Inactive loratadine 10 mg tablet RxNorm: 615473 1 Tablet(s) PO daily No Start Date 07/21/2018 Inactive Medication Administered Medication Codes Instructions Start Date Status cyanocobalamin (vit B-12) 1,000 mcg/mL injection solution RxNorm: 544659 Milliliter 08/04/2018 Active cyanocobalamin (vit B-12) 1,000 mcg/mL injection solution RxNorm: 835269 1Milliliter 07/16/2018 No longer Active cyanocobalamin (vit B-12) 1,000 mcg/mL injection solution RxNorm: 166825 Milliliter 07/01/2018 No longer Active cyanocobalamin (vit B-12) 1,000 mcg/mL injection solution RxNorm: 817983 Milliliter 06/15/2018 No longer Active cyanocobalamin (vit B-12) 1,000 mcg/mL injection solution RxNorm: 480433 Milliliter 06/02/2018 No longer Active cyanocobalamin (vit B-12) 1,000 mcg/mL injection solution RxNorm: 568040 Milliliter 05/21/2018 No longer Active Kenalog 40 mg/mL suspension for injection RxNorm: 9116383 1.5Milliliter 04/09/2018 No longer Active Kenalog 40 mg/mL suspension for injection RxNorm: 0623080 1Milliliter 10/16/2017 No longer Active Kenalog 40 mg/mL suspension for injection RxNorm: 0851145 Milliliter 02/07/2015 No longer Active Immunizations Vaccine [...] Item Item Code Result Date Comp Metabolic Pph755 NA 138 mEq/L 09/03/2017 Comp Metabolic Cjg388 K 3.9 mEq/L 09/03/2017 Comp Metabolic Iqm128 CL 102 mEq/L 09/03/2017 Comp Metabolic Kgn834 CO2 32.0 mEq/L 09/03/2017 Comp Metabolic Bmp382 ANION GAP 8 09/03/2017 Comp Metabolic Awi125 GLUCOSE 89 mg/dL 09/03/2017 Comp Metabolic Bst547 Creat 0.6 mg/dL 09/03/2017 Comp Metabolic Gqn105 eGFR 103 ml/min/1.73m2 09/03/2017 Comp Metabolic Jlh863 BUN 10 mg/dL 09/03/2017 Comp Metabolic Kdr709 B/C Ratio 16.7 Ratio 09/03/2017 Comp Metabolic Qut491 CALCIUM 8.9 mg/dL 09/03/2017 Comp Metabolic Yxd844 ALK PHOS 141 U/L 09/03/2017 Comp Metabolic Fsb730 AST(SGOT) 12 U/L 09/03/2017 Comp Metabolic Rhs966 ALT(SGPT) 7 U/L 09/03/2017 Comp Metabolic Ard185 BILI T 0.6 mg/dL 09/03/2017 Comp Metabolic Orp090 ALBUMIN 3.6 g/dL 09/03/2017 Comp Metabolic Bli141 TPRO 6.6 g/dL 09/03/2017 Comp Metabolic Kug751 GLOB 3.0 g/dL 09/03/2017 Comp Metabolic Alg975 A/G Ratio 1.2 Ratio 09/03/2017 Comp Metabolic Euw815 Osmo 274 mOsmo 09/03/2017 Hepatic Sts814 ALBUMIN 3.7 g/dL 08/11/2017 Hepatic Zoo842 TPRO 7.0 g/dL 08/11/2017 Hepatic Cqy865 GLOB 3.3 g/dL 08/11/2017 Hepatic Ffh005 A/G Ratio 1.1 Ratio 08/11/2017 Hepatic Ixa196 ALK PHOS 85 U/L 08/11/2017 Hepatic Jty982 ALT(SGPT) 11 U/L 08/11/2017 Hepatic Tue973 AST(SGOT) 16 U/L 08/11/2017 Hepatic Nci179 BILI T 0.6 mg/dL 08/11/2017 Hepatic Ptt313 BILI D 0.1 mg/dL 08/11/2017 Hepatic Jfg328 BILI I 0.5 mg/dL 08/11/2017 Hepatic Chv894 ALBUMIN 3.1 g/dL 07/18/2017 Hepatic Fgo475 TPRO 5.9 g/dL 07/18/2017 Hepatic Pey794 GLOB 2.8 g/dL 07/18/2017 Hepatic Joh569 A/G Ratio 1.1 Ratio 07/18/2017 Hepatic Rhs116 ALK PHOS 123 U/L 07/18/2017 Hepatic Ezx532 ALT(SGPT) 210 U/L 07/18/2017 Hepatic Dzr047 AST(SGOT) 71 U/L 07/18/2017 Hepatic Vqd142 BILI T 1.1 mg/dL 07/18/2017 Hepatic Hvw192 BILI D 0.4 mg/dL 07/18/2017 Hepatic Lhx533 BILI I 0.7 mg/dL 07/18/2017 Cbc With [...] 32.4 pg 02/25/2017 Cbc With Differential Ord2 [place]% 7.6 % 02/25/2017 Cbc With Differential Ord2 [...] 1.22 K/ul 02/25/2017 Cbc With Differential Ord2 [place] ABS# 0.4 K/ul 02/25/2017 Cbc With Differential [...] 39.2 % 01/02/2017 Cbc With Differential Ord2 MCV 98.0 fl 01/02/2017 Cbc With Differential Ord2 Lymph% 19.6 % 01/02/2017 Cbc With Differential Ord2 MCH 32.3 pg 01/02/2017 Cbc With Differential Ord2 [place]% 7.8 % 01/02/2017 Cbc With Differential Ord2 MCHC 32.9 pg 01/02/2017 Cbc With Differential Ord2 Eos% 6.5 % 01/02/2017 Cbc With Differential Ord2 Baso% 0.2 % 01/02/2017 Cbc With Differential Ord2 PLT 168 K/ul 01/02/2017 Cbc With Differential Ord2 Neut ABS# 3.03 K/ul 01/02/2017 Cbc With Differential Ord2 RDW 12.8 % 01/02/2017 Cbc With Differential Ord2 Lymph ABS# 0.90 K/ul 01/02/2017 Cbc With Differential Ord2 [place] ABS# 0.4 K/ul 01/02/2017 Cbc With Differential Ord2 Eos ABS# 0.3 K/ul 01/02/2017 Cbc With Differential Ord2 Baso ABS# 0.0 K/ul 01/02/2017 Lipid Ord30 CHOL 139 mg/dL 12/13/2016 Lipid Ord30 HDL 48.0 mg/dl 12/13/2016 Lipid Ord30 TRIG 84 mg/dL 12/13/2016 Lipid Ord30 LDL 74 mg/dL 12/13/2016 Lipid Ord30 C/HDL 2.9 Ratio 12/13/2016 Comp Metabolic Vgv098 NA 137 mEq/L 12/13/2016 Comp Metabolic Thv980 K 4.8 mEq/L 12/13/2016 Comp Metabolic Qme453 CL 101 mEq/L 12/13/2016 Comp Metabolic Uyg731 CO2 32.0 mEq/L 12/13/2016 Comp Metabolic Lsd733 ANION GAP 9 12/13/2016 Comp Metabolic Zba899 GLUCOSE 95 mg/dL 12/13/2016 Comp Metabolic Btv665 Creat 0.8 mg/dL 12/13/2016 Comp Metabolic Cpa957 eGFR 79 ml/min/1.73m2 12/13/2016 Comp Metabolic Vol594 BUN 15 mg/dL 12/13/2016 Comp Metabolic Axj312 B/C Ratio 19.7 Ratio 12/13/2016 Comp Metabolic Cpp669 CALCIUM 9.3 mg/dL 12/13/2016 Comp Metabolic Rbt290 ALK PHOS 63 U/L 12/13/2016 Comp Metabolic Muh853 AST(SGOT) 15 U/L 12/13/2016 Comp Metabolic Wek043 ALT(SGPT) 10 U/L 12/13/2016 Comp Metabolic Yzy273 BILI T 0.7 mg/dL 12/13/2016 Comp Metabolic Ant476 ALBUMIN 3.7 g/dL 12/13/2016 Comp Metabolic Twe589 TPRO 6.8 g/dL 12/13/2016 Comp Metabolic Pyq433 GLOB 3.2 g/dL 12/13/2016 Comp Metabolic Hbb991 A/G Ratio 1.2 Ratio 12/13/2016 Comp Metabolic Bqu545 Osmo 274 mOsmo 12/13/2016 Cbc With Differential Ord2 WBC 4.16 K/ul 12/13/2016 Cbc With Differential Ord2 RBC 4.26 M/ul 12/13/2016 Cbc With Differential Ord2 HGB 13.6 g/dl 12/13/2016 Cbc With Differential Ord2 HCT 41.5 % 12/13/2016 Cbc With Differential Ord2 Neut% 50.0 % 12/13/2016 Cbc With Differential Ord2 Lymph% 28.1 % 12/13/2016 Cbc With Differential Ord2 MCV 97.4 fl 12/13/2016 Cbc With Differential Ord2 [place]% 9.9 % 12/13/2016 Cbc With Differential Ord2 [...] 1.17 K/ul 12/13/2016 Cbc With Differential Ord2 [place] ABS# 0.4 K/ul 12/13/2016 Cbc With Differential [...] 97.3 fl 12/19/2015 Cbc With Differential Ord2 [place]% 5.9 % 12/19/2015 Cbc With Differential Ord2 MCH 32.1 pg 12/19/2015 Cbc With Differential Ord2 Eos% 3.3 % 12/19/2015 Cbc With Differential Ord2 MCHC 33.0 pg 12/19/2015 Cbc With Differential Ord2 PLT 199 K/ul 12/19/2015 Cbc With Differential Ord2 Baso% 0.2 % 12/19/2015 Cbc With Differential Ord2 RDW 13.5 % 12/19/2015 Cbc With Differential Ord2 Neut ABS# 3.65 K/ul 12/19/2015 Cbc With Differential Ord2 Lymph ABS# 1.53 K/ul 12/19/2015 Cbc With Differential Ord2 [place] ABS# 0.3 K/ul 12/19/2015 Cbc With Differential [...] Ord30 C/HDL 2.8 Ratio 12/19/2015 Comp Metabolic Bgk246 NA 135 mEq/L 12/19/2015 Comp Metabolic Juc176 K 4.1 mEq/L 12/19/2015 Comp Metabolic Hzq213 CL 99 mEq/L 12/19/2015 Comp Metabolic Dpr680 CO2 27.0 mEq/L 12/19/2015 Comp Metabolic Xsz159 ANION GAP 13 12/19/2015 Comp Metabolic Xuj213 GLUCOSE 83 mg/dL 12/19/2015 Comp Metabolic Bhj458 Creat 0.7 mg/dL 12/19/2015 Comp Metabolic Oey447 eGFR 88 ml/min/1.73m2 12/19/2015 Comp Metabolic Xed801 BUN 12 mg/dL 12/19/2015 Comp Metabolic Klr056 B/C Ratio 17.4 Ratio 12/19/2015 Comp Metabolic Vrw824 CALCIUM 9.0 mg/dL 12/19/2015 Comp Metabolic Nsn092 ALK PHOS 68 U/L 12/19/2015 Comp Metabolic Kdg568 AST(SGOT) 16 U/L 12/19/2015 Comp Metabolic Llo721 ALT(SGPT) 13 U/L 12/19/2015 Comp Metabolic Rxi375 BILI T 0.7 mg/dL 12/19/2015 Comp Metabolic Ykx157 ALBUMIN 4.0 g/dL 12/19/2015 Comp Metabolic Zru018 TPRO 7.0 g/dL 12/19/2015 Comp Metabolic Mmf203 GLOB 3.0 g/dL 12/19/2015 Comp Metabolic Qau924 A/G Ratio 1.3 Ratio 12/19/2015 Comp Metabolic Ceo886 Osmo 269 mOsmo 12/19/2015 Review of Systems [...] Procedure Codes Date THER/PROPH/DIAG INJ SC/IM CPT-4: 85506 08/04/2018 VITAMIN B12 INJECTION CPT- 4: J3420 08/04/2018 THER/PROPH/DIAG INJ SC/IM CPT-4: 46703 07/16/2018 VITAMIN B12 INJECTION CPT- 4: J3420 07/16/2018 THER/PROPH/DIAG INJ SC/IM CPT-4: 82373 07/01/2018 VITAMIN B12 INJECTION CPT- 4: J3420 07/01/2018 ADMIN INFLUENZA VIRUS VAC CPT-4: G0008 06/25/2018 FLU VACC PRSV FREE INC ANTIG Formatting Model/CDA Sections, Assigned to/Miranda Ayala CPT-4: 63427Mtegejl 06/25/2018 THER/PROPH/DIAG INJ SC/IM CPT-4: 06275 06/15/2018 VITAMIN B12 INJECTION CPT- 4: J3420 06/15/2018 THER/PROPH/DIAG INJ SC/IM CPT-4: 79835 06/02/2018 VITAMIN B12 INJECTION CPT- 4: J3420 06/02/2018 THER/PROPH/DIAG INJ SC/IM CPT-4: 72005 05/21/2018 VITAMIN B12 INJECTION CPT- 4: J3420 05/21/2018 TRIAMCINOLONE ACET INJ NOS CPT-4: J3301 04/09/2018 PPPS, SUBSEQ VISIT CPT- 4: G0439 12/18/2017 TRIAMCINOLONE ACET INJ NOS CPT-4: J3301 10/16/2017 DRAIN/INJECT JOINT/BURSA CPT-4: 77571 10/16/2017 PRESCRIP TRANSMIT VIA ERX SY CPT-4: G8553 05/05/2017 PRESCRIP TRANSMIT VIA ERX SY CPT-4: G8553 01/14/2017 PPPS, SUBSEQ VISIT CPT- 4: G0439 12/12/2016 PRESCRIP TRANSMIT VIA ERX SY CPT-4: G8553 10/15/2016 ADMIN PNEUMOCOCCAL VACCINE SNOMED CT: 42719320 CPT-4: G0009 08/28/2016 Pneumococcal Polysaccharide Vaccine, 23-Valent, Ad CPT-4: 95587 08/28/2016 PRESCRIP TRANSMIT VIA ERX SY CPT-4: G8553 03/14/2016 PRESCRIP TRANSMIT VIA ERX SY CPT-4: G8553 12/19/2015 THER/PROPH/DIAG INJ SC/IM CPT-4: 92650 02/07/2015 TRIAMCINOLONE ACET INJ NOS CPT-4: J3301 02/07/2015 Vital Signs Date Vital 08/04/2018 Blood Pressure 1: 120/80 Code: 8480-6 Blood Pressure 1: 122/80 Code: 8480-6 Blood Pressure 2: 120/82 Code: 8480-6 BMI: 25.5 Code: 27303-0 Heart Rate 1: 67 bpm Heart Rate 1: 63 bpm Height: 5'1" Weight: Weight: 135 lbs 07/22/2018 Blood Pressure 1: 120/82 Code: 8480-6 BMI: 24.9 Code: 39405-7 Heart Rate 1: 64 bpm Height: 5'1" SpO2: 95% Weight: 132 lbs 04/21/2018 Blood Pressure 1: 108/70 Code: 8480-6 BMI: 24.4 Code: 62416-0 Heart Rate 1: 62 bpm Height: 5'1" SpO2: 94% Weight: 129 lbs 04/09/2018 Blood Pressure 1: 138/86 Code: 8480-6 BMI: 25.5 Code: 46685-3 Heart Rate 1: 64 bpm Height: 5'1" SpO2: 99% Temperature: 36.4 (C) / 97.5 (F) Weight: 135 lbs 01/19/2018 Blood Pressure 1: 128/76 Code: 8480-6 BMI: 25.9 Code: 61183-4 Heart Rate 1: 65 bpm Height: 5'1" SpO2: 98% Weight: 137 lbs 12/18/2017 Blood Pressure 1: 144/82 Code: 8480-6 BMI: 26.1 Code: 47753-1 Heart Rate 1: 57 bpm Height: 5'1" SpO2: 97% Waist Measure (cm): 74 cm Weight: 138 lbs 10/16/2017 Blood Pressure 1: 142/88 Code: 8480-6 BMI: 25.5 Code: 58831-8 Heart Rate 1: 63 bpm Height: 5'1" SpO2: 97% Weight: 135 lbs 09/03/2017 Blood Pressure 1: 144/90 Code: 8480-6 BMI: 26.3 Code: 70052-0 Heart Rate 1: 91 bpm Height: 5'1" SpO2: 96% Weight: 139 lbs 07/31/2017 Blood Pressure 1: 136/90 Code: 8480-6 BMI: 26.3 Code: 25684-9 Height: 5'1" Weight: 139 lbs 07/18/2017 Blood Pressure 1: 136/84 Code: 8480-6 06/16/2017 Blood Pressure 1: 136/84 Code: 8480-6 BMI: 26.5 Code: 59742-6 Heart Rate 1: 72 bpm Height: 5'1" SpO2: 97% Weight: 140 lbs 05/28/2017 Blood Pressure 1: 138/78 Code: 8480-6 BMI: 26.1 Code: 17322-5 Heart Rate 1: 70 bpm Height: 5'1" SpO2: 98% Weight: 138 lbs 05/05/2017 Blood Pressure 1: 140/86 Code: 8480-6 BMI: 25.3 Code: 85839-5 Heart Rate 1: 66 bpm Height: 5'1" SpO2: 99% Weight: 134 lbs 03/13/2017 Blood Pressure 1: 126/74 Code: 8480-6 BMI: 25.3 Code: 70768-1 Heart Rate 1: 73 bpm Height: 5'1" SpO2: 98% Weight: 134 lbs 02/10/2017 Blood Pressure 1: 148/88 Code: 8480-6 BMI: 25.9 Code: 77217-7 Heart Rate 1: 84 bpm Height: 5'1" SpO2: 97% Weight: 137 lbs 01/14/2017 Blood Pressure 1: 134/86 Code: 8480-6 BMI: 25.7 Code: 45422-9 Heart Rate 1: 83 bpm Height: 5'1" SpO2: 95% Weight: 136 lbs 01/07/2017 Blood Pressure 1: 136/88 Code: 8480-6 BMI: 25.1 Code: 26454-8 Heart Rate 1: 86 bpm Height: 5'1" SpO2: 94% Weight: 133 lbs 01/02/2017 Blood Pressure 1: 122/68 Code: 8480-6 Blood Pressure 2: 116/78 Code: 8480-6 01/01/2017 Blood Pressure 1: 90/52 Code: 8480-6 BMI: 25.1 Code: 02163- 5 Heart Rate 1: 86 bpm Height: 5'1" SpO2: 99% Weight: 133 lbs 12/20/2016 Blood Pressure 1: 120/76 Code: 8480-6 12/12/2016 Blood Pressure 1: 130/72 Code: 8480-6 BMI: 24.8 Code: 99517-2 Heart Rate 1: 62 bpm Height: 5'1" SpO2: 98% Waist Measure (cm): 79 cm Weight: 131 lbs 12/11/2016 Blood Pressure 1: 132/70 Code: 8480-6 BMI: 24.8 Code: 46745-4 Heart Rate 1: 60 bpm Height: 5'1" Weight: 131 lbs 10/15/2016 Blood Pressure 1: 108/66 Code: 8480-6 BMI: 24.8 Code: 51841-2 Heart Rate 1: 60 bpm Height: 5'1" Weight: 131 lbs 07/17/2016 Blood Pressure 1: 128/82 Code: 8480-6 BMI: 25.3 Code: 75292-5 Heart Rate 1: 50 bpm Height: 5'2" Weight: 136 lbs 05/15/2016 Blood Pressure 1: 108/70 Code: 8480-6 BMI: 23.4 Code: 71620-5 Heart Rate 1: 54 bpm Height: 5'2" SpO2: 96% Weight: 126 lbs 04/23/2016 Blood Pressure 1: 112/60 Code: 8480-6 BMI: 23.6 Code: 28629-9 Heart Rate 1: 92 bpm Height: 5'2" SpO2: 95% Weight: 127 lbs 03/14/2016 Blood Pressure 1: 118/74 Code: 8480-6 BMI: 24.0 Code: 97137-0 Heart Rate 1: 51 bpm Height: 5'2" SpO2: 94% Temperature: 36.8 (C) / 98.3 (F) Weight: 129 lbs 02/19/2016 Blood Pressure 1: 110/62 Code: 8480-6 BMI: 23.4 Code: 01356-4 Heart Rate 1: 74 bpm Height: 5'2" SpO2: 97% Weight: 126 lbs 12/19/2015 Blood Pressure 1: 108/74 Code: 8480-6 BMI: 23.6 Code: 44710-0 Heart Rate 1: 52 bpm Height: 5'2" Weight: 127 lbs 03/06/2015 Blood Pressure 1: 136/88 Code: 8480-6 Heart Rate 1: 64 bpm Weight: 129 lbs 02/07/2015 Blood Pressure 1: 142/90 Code: 8480-6 BMI: 24.5 Code: 85807-9 Heart Rate 1: 82 bpm Height: 5'2" [...] Encounters Encounter Performer Location Codes Date ( 95981 EST. PATIENT, LEVEL IV Diagnosis: Other vitamin B12 deficiency anemias[ICD10: D51.8] Diagnosis: Essential (primary) hypertension[ICD10: I10] Diagnosis: Major depressive disorder, recurrent, mild[ICD10: F33.0] Diagnosis: Unsteadiness on feet[ICD10: R26.81] Kim Burden MD, [facility] CPT- 4: 47194 08/04/2018 ([id number]) 23494 EST. PATIENT, LEVEL IV Diagnosis: Fecal urgency[ICD10: R15.2] Diagnosis: Generalized abdominal pain[ICD10: R10.84] Diagnosis: Essential (primary) hypertension[ICD10: I10] Kim Burden MD, [facility] CPT-4: 48552 07/22/2018 ([id number]) 16218 EST. PATIENT, LEVEL IV Diagnosis: Essential (primary) hypertension[ICD10: I10] Diagnosis: Other emphysema[ICD10: J43.8] Diagnosis: Candidal stomatitis[ICD10: B37.0] Kim Burden MD, [facility] CPT- 4: 67512 04/21/2018 ([id number]) 44560 EST. PATIENT, LEVEL III Diagnosis: Chronic obstructive pulmonary disease with (acute) exacerbation[ICD10: J44.1] Mallorie Burden MD, [facility] CPT-4: 98120 04/09/2018 ([id number]) 91632 EST. PATIENT, LEVEL IV Diagnosis: Essential (primary) hypertension[ICD10: I10] Diagnosis: Other emphysema[ICD10: J43.8] Kim Burden MD, [facility] CPT-4: 75939 01/19/2018 ([id number]) 52833 EST. PATIENT, LEVEL IV Diagnosis: Essential (primary) hypertension[ICD10: I10] Diagnosis: Other emphysema[ICD10: J43.8] Diagnosis: Dependence on supplemental oxygen[ICD10: Z99.81] Diagnosis: Hypoxemia[ICD10: R09.02] Diagnosis: Pain in left knee[ICD10: M25.562] Diagnosis: Effusion, left knee[ICD10: M25.462] Kim Burden MD, [facility] CPT- 4: 24038 10/16/2017 62733 EST. PATIENT, LEVEL III Diagnosis: Pain in thoracic spine[ICD10: M54.6] Pebbles Burden MD, [facility] CPT- 4: 30763 09/03/2017 ([id number]) 94021 EST. PATIENT, LEVEL III Diagnosis: Essential (primary) hypertension[ICD10: I10] Diagnosis: Other emphysema[ICD10: J43.8] Kim Burden MD, [facility] CPT-4: 99010 07/31/2017 ([id number]) Miscellaneous no charge Diagnosis: Essential (primary) hypertension[ICD10: I10] Mallorie Burden MD, [facility] CPT-4: 50284 07/18/2017 ([id number]) 30460 EST. PATIENT, LEVEL III Diagnosis: Pain in left knee[ICD10: M25.562] Diagnosis: Effusion, left knee[ICD10: M25.462] Mallorie Burden MD, [facility] CPT-4: 91656 06/16/2017 ([id number]) 27878 EST. PATIENT, LEVEL III Diagnosis: Essential (primary) hypertension[ICD10: I10] Diagnosis: Unsteadiness on feet[ICD10: R26.81] Kim Burden MD, [facility] CPT- 4: 95355 05/28/2017 ([id number]) 77003 EST. PATIENT, LEVEL IV Diagnosis: Essential (primary) hypertension[ICD10: I10] Diagnosis: Chronic obstructive pulmonary disease with acute lower respiratory infection[ICD10: J44.0] [facility] CPT-4: 90467 05/05/2017 ([id number]) 40332 EST. 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 PATIENT, LEVEL IV Diagnosis: Essential (primary) hypertension[ICD10: I10] Diagnosis: Gastro-esophageal reflux disease without esophagitis[ICD10: K21.9] Diagnosis: Chronic obstructive pulmonary disease, unspecified[ICD10: J44.9] Kim Burden MD [facility] CPT-4: 47174 02/10/2017 ([id number]) 31146 EST. PATIENT, LEVEL IV Diagnosis: Essential (primary) hypertension[ICD10: I10] Diagnosis: Gastro-esophageal reflux disease without esophagitis[ICD10: K21.9] Diagnosis: Chronic obstructive pulmonary disease with acute lower respiratory infection[ICD10: J44.0] Kim Burden MD, [facility] CPT-4: 50720 01/14/2017 06278 EST. PATIENT, LEVEL IV Diagnosis: Other fatigue[ICD10: R53.83] Diagnosis: Other malaise[ICD10: R53.81] Diagnosis: Headache[ICD10: R51] Diagnosis: Palpitations[ICD10: R00.2] Diagnosis: Dehydration[ICD10: E86.0] Pebbles Burden MD, [facility] CPT-4: 97763 01/07/2017 ([id number]) Miscellaneous no charge Diagnosis: Essential (primary) hypertension[ICD10: I10] Pebbles Burden MD, [facility] CPT-4: 11923 01/02/2017 92118 EST. PATIENT, LEVEL IV Diagnosis: Chronic obstructive pulmonary disease, unspecified[ICD10: J44.9] Diagnosis: Essential (primary) hypertension[ICD10: I10] Diagnosis: Other fatigue[ICD10: R53.83] Pebbles Burden MD, [facility] CPT-4: 12250 01/01/2017 ([id number]) Miscellaneous no charge Diagnosis: Essential (primary) hypertension[ICD10: I10] Pebbles Burden MD, [facility] CPT-4: 84122 12/20/2016 ([id number]) 19717 EST. 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 PATIENT, LEVEL IV Diagnosis: Essential (primary) hypertension[ICD10: I10] Diagnosis: Other allergic rhinitis[ICD10: J30.89] Diagnosis: Gastro-esophageal reflux disease without esophagitis[ICD10: K21.9] Kim Burden MD [facility] CPT-4: 36516 10/15/2016 ([id number]) 23324 EST. 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 PATIENT, LEVEL III Diagnosis: Pain in left hip[ICD10: M25.552] Diagnosis: Acute laryngopharyngitis[ICD10: J06.0] Kim Burden MD [facility] CPT-4: 55238 05/15/2016 ([id number]) 08527 EST. PATIENT, LEVEL III Diagnosis: Fracture of unspecified parts of lumbosacral spine and pelvis, initial encounter for closed fracture[ICD10: S32.9XXA] Diagnosis: Essential (primary) hypertension[ICD10: I10] Kim Burden MD, [facility] CPT-4: 74858 04/23/2016 91191 EST. PATIENT, LEVEL IV Diagnosis: Acute laryngopharyngitis[ICD10: J06.0] Diagnosis: Other allergic rhinitis[ICD10: J30.89] Pebbles Burden MD, [facility] CPT- 4: 12138 03/14/2016 66149 EST. PATIENT, LEVEL IV Diagnosis: Dysuria[ICD10: R30.0] Diagnosis: Left lower quadrant pain[ICD10: R10.32] Pebbles Burden MD, [facility] CPT-4: 92203 02/19/2016 ([id number]) 00860 EST. 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 PATIENT, LEVEL IV Diagnosis: ESSENTIAL HYPERTENSION[ICD9: 401.9] Diagnosis: ACUTE URI[ICD9: 465.9] [facility] CPT-4: 99442 03/06/2015 ([id number]) OFFICE VISIT, NEW - LEVEL 4 Diagnosis: ESOPHAGEAL REFLUX[ICD9: 530.81] Diagnosis: ESSENTIAL HYPERTENSION[ICD9: 401.9] Diagnosis: COPD (chronic obstructive pulmonary disease)[ICD9: 496] Diagnosis: ALLERGIC RHINITIS[ICD9: 477.9] [facility] CPT-4: 28961 02/07/2015 Plan of Care Planned Activity Notes [...] antidepressant - decrease dose of anxiolytic. 08/04/2018 Patient Education: Patient Medication Summary Completed [...] home. 07/22/2018 [phone] ([facility] min) Moderate 07/22/2018 Patient Education: Patient [...] swallow. 04/21/2018 Appointment: [phone] [place] (15 min) Moderate 04/21/2018 Patient Education: [...] acute changes. 04/09/2018 Appointment: Mallorie Wetzel [facility]Ptel[phone] [place] (30 min) Complex 04/09/2018 Patient [...] acute changes. 01/19/2018 Appointment: Kim Burden WPtel: [facility]8 [facility] [place] (15 min) Moderate 01/19/2018 Patient Education: Patient Medication Summary Completed 01/19/2018 Appointment: Kim Burden WPtel: [phone] [facility] [place] (15 min) Moderate 01/14/2018 Visit Plan: [...] surrogate. 12/18/2017 Appointment: Pebbles Lund [facility]el[facility] [phone] [facility] [facility] - Annual Wellness Visit 12/18/2017 [...] or concerns. 09/03/2017 Appointment: Pebbles Lund WPtel: [phone] [facility] (15 min) Moderate 09/03/2017 Patient Education: Patient Medication Summary Completed 09/03/2017 Appointment: Kim uBrden WPtel: [phone] [facility] [place] (15 min) Moderate 08/11/2017 Appointment: Kim Burden WPtel: [facility]4 [facility] [place] (15 min) Moderate 08/11/2017 Patient Education: [...] current treatment. 07/31/2017 Appointment: Kim Burden WPtel: [phone] [facility] [place] (15 min) Moderate 07/31/2017 Patient Education: Patient Medication Summary Completed 07/31/2017 Appointment: Nurse Visit 07/18/2017 Patient Education: Patient Medication Summary Completed 07/18/2017 Patient Education: Patient Medication Summary Completed 07/18/2017 Appointment: Kim Burden WPtel: [phone] [facility] [place] (15 min) Moderate 06/30/2017 Visit Plan: Effusion left knee-fall 2 weeks ago-recommend compression of joint and refer to Ortho for evaluation and treatment-will refer to Dr Pryor/Quinton Mccormick. Patient verbalized understanding of plan. 06/16/2017 Appointment: Mallorie Wetzel WPtel: [phone] [phone] [place] (30 min) Complex 06/16/2017 Patient Education: [...] when active. 05/28/2017 Appointment: Kim Burden WPtel: [facility]3 [facility] [place] (15 min) Moderate 05/28/2017 [...] changes. 05/05/2017 Appointment: Kim Burden WPtel: [phone] [facility] [place] (15 min) Moderate 05/05/2017 Patient Education: [...] worsening. 02/10/2017 Appointment: [phone] ([facility] min) Moderate 02/10/2017 Patient Education: [...] not improving. 01/14/2017 Appointment: Kim Burden WPtel: [facility]5 [facility] (15 min) Moderate 01/14/2017 Patient Education: Patient Medication Summary Completed 01/14/2017 Visit Plan: Dehydration, palpitations, malaise, headache - will send for outpatient fluids, will check labs, ekg. Pt is to restart her spironolactone, continue to monitor blood pressures and heart rates and notify clinic if symptoms do not improve, if they worsen, or with any questions or concerns. 01/07/2017 Appointment: Pebbles Lund WPtel: [facility]5 [facility] (30 min) Complex 01/07/2017 Patient Education: Patient [...] blood pressures. 01/01/2017 Appointment: Pebbles Lund WPtel: [facility] (30 min) Complex 01/01/2017 Patient Education: [...] surrogate. 12/12/2016 Appointment: Pebbles Lund [facility]el[facility] [phone] [facility] [facility] - Annual Wellness Visit 12/12/2016 [...] this time. 12/11/2016 Appointment: Kim Burden WPtel: [facility]2 [facility] (15 min) Moderate 12/11/2016 Patient Education: Patient Medication Summary Completed 12/11/2016 Appointment: Mallorie Wetzel WPtel: [phone] [phone] [place] (30 min) Complex 12/10/2016 Visit Plan: [...] improving. 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 07/17/2016 Appointment: Delfin Burdeny WPtel: [phone] [facility] (15 min) Moderate 07/17/2016 Patient Education: Patient Medication Summary Completed 07/17/2016 Appointment: Delfin Burdeny WPtel: [facility]4 [facility] [place] (15 min) Moderate 06/10/2016 Visit Plan: Hip pain - persistent but improving - continue with current treatment plan. Pt to call if her symptoms are not improving or if her hip pain worsens. URI symptoms - supportive care, use otc allergy medications. 05/15/2016 Appointment: Kim Burden WPtel: [phone] [facility] (15 min) Moderate 05/15/2016 Patient Education: Patient [...] - call if not improving. 04/23/2016 Appointment: Jenise Kim WPtel: [facility]7 [facility] (15 min) Moderate 04/23/2016 Patient Education: Patient Medication Summary Completed 04/23/2016 Patient Education: Hypertension Completed 04/23/2016 Care Plan: X-RAY EXAM OF ABDOMEN LOINC : 91343-5 Pending 03/18/2016 Visit Plan: URI - Pt [...] allergy spray. 03/14/2016 Appointment: Pebbles Lund WPtel: [phone] [facility] (30 min) Complex 03/14/2016 Patient Education: Patient Medication Summary Completed 03/14/2016 Patient Education: Patient Medication Summary Completed 02/29/2016 Visit Plan: Flank pain - pt is currently being treated for UTI, but is having continued left flank pain - will get KUB - pt is to notify clinic if symptoms do not improve, or with any concerns. 02/19/2016 Appointment: Pebbles Lund WPtel: [phone] [facility] (30 min) Complex 02/19/2016 Patient Education: Patient Medication Summary Completed 02/19/2016 Appointment: Kim Burden WPtel: [facility]3 [facility] (15 min) [...] not improving. 12/19/2015 Appointment: Kim Burden WPtel: [facility]2 [facility] (15 min) Moderate 12/19/2015 Patient [...] RX. 03/06/2015 Appointment: [phone] Follow up 03/06/2015 Patient Education: Patient Medication [...] Completed 02/07/2015 Care Plan: SCREENINGMAMMOGRAPHYDIGITAL LOINC : 53885-5 Ordered 02/07/2015 Care Plan: COMPLETE CBC AUTOMATED LOINC : 89352-0 Ordered 02/07/2015 Instructions Comment . Hypertension - well controlled - continue [...] current medications. TAKE WITH FOOD AND PROBIOTIC ([employer] OR [employer]) . URI - Pt advised to increase [...] to help decrease GI upset./loose stools - [facility] . Hypertension - well controlled - continue [...] - rx for nystatin swish and swallow. Liquid Vitamin B12 or Vitamin B12 dissolving [...] to continue with oxygen when active. . Thoracic back pain - x-ray showed [...] worsen, or with any questions or concerns. CHECK YOUR BLOOD PRESSURE AND PULSE AT [...] medication. Kenalog injection today in the office. decrease alprazolam to 1/2 pill twice a [...] antidepressant - decrease dose of anxiolytic. . Fecal urgency - Abdominal discomfort - [...]
--- OUTSIDE RECORDS SUMMARY | 2019-04-06 09:44 | XMS REPORT | CCD ---
Author Author Mallorie Wetzel Organization Kim Burden MD, [facility] Address [address] [place] [address] Phone Care Team Providers Care Passenger Relations Representative Name Role Phone PP Unavailable CCM Unavailable Summary Purpose Interface Exchange Insurance Providers Payer name Policy type / Coverage type Covered libertarian ID Effective Begin Date Effective End Date WPS Medicare Part B Medicare Part B [id number] 2018 Unknown AETNA Medicare Part B [id number] Unknown Family history Brother Diagnosis Age At [...] 02/07/2015 Employment Unknown Currently employed works at [employer] 02/07/[address]: 3740059 Quit over 10 years ago 199302/07/2015 Number [...] ICD-9: 789.07 ICD-10: R10.84 Active 07/22/2018 Unknown Other vitamin B12 deficiency anemias ICD-9: 281.1 ICD-10: D51.8 Active 06/02/2018 Unknown Encounter for immunization ICD-9: V03.82 ICD-10: [...] K80.20 Active 07/18/2017 Unknown Unsteadiness on feet ICD- 9: 781.2 ICD-10: R26.81 Active 05/28/2017 Unknown Chronic [...] pain ICD-9: 789.07 ICD-10: R10.84 07/22/2018 Active Other vitamin B12 deficiency anemias ICD-9: 281.1 ICD-10: D51.8 06/02/2018 Active Encounter for immunization ICD-9: V03.82 ICD-10: [...] ICD-10: K80.20 07/18/2017 Active Unsteadiness on feet ICD- 9: 781.2 ICD-10: R26.81 05/28/2017 Active Chronic obstructive [...] Start Date Stop Date Status Fill Instructions cholestyramine (with sugar) 4 gram powder for susp in a packet RxNorm: 155557 1/2 to 1 packet PO TID take 30 minutes before meals 07/22/2018 07/16/2019 Active cyanocobalamin (vit B-12) 1,000 mcg/mL injection solution RxNorm: 654749 1 Milliliter(s) Inj 07/16/2018 07/16/2018 Inactive omeprazole 20 mg capsule,delayed release RxNorm: 103966 Capsule(s) TAKE 1 CAPSULE TWICE DAILY 07/01/2018 06/25/2019 Active alprazolam 1 mg tablet RxNorm: 066026 1 Tablet(s) PO TID 07/01/2018 03/27/2019 Active cyanocobalamin (vit B-12) 1,000 mcg/mL injection solution RxNorm: 713270 Milliliter(s) Inj 07/01/2018 07/01/2018 Inactive omeprazole 20 mg capsule,delayed release RxNorm: 329766 TAKE 1 CAPSULE TWICE DAILY 07/01/2018 06/30/2018 Inactive cyanocobalamin (vit B-12) 1,000 mcg/mL injection solution RxNorm: 203082 Milliliter(s) Inj 06/15/2018 06/15/2018 Inactive cyanocobalamin (vit B-12) 1,000 mcg/mL injection solution RxNorm: 692677 Milliliter(s) Inj 06/02/2018 06/02/2018 Inactive fluticasone 50 mcg/actuation nasal spray,suspension RxNorm: 0432919 1 Center NASAL BID 05/26/2018 05/20/2019 Active Vitamin B-12 1,000 mcg/mL injection solution RxNorm: 600846 1 Milliliter(s) Inj Q2 weeks x2 months and then monthly injections 05/21/2018 No Stop Date Active cyanocobalamin (vit B-12) 1,000 mcg/mL injection solution RxNorm: 178549 Milliliter(s) Inj 05/21/2018 05/21/2018 Inactive fluticasone 50 mcg/actuation nasal spray,suspension RxNorm: 0480262 1 Center NASAL BID 05/19/2018 05/25/2018 Inactive fluticasone 50 mcg/actuation nasal spray,suspension RxNorm: 2869421 1 Center NASAL BID 05/18/2018 05/18/2018 Inactive fluticasone 50 mcg/actuation nasal spray,suspension RxNorm: 4620976 1 Center NASAL BID 05/15/2018 05/17/2018 Inactive fluticasone 50 mcg/actuation nasal spray,suspension RxNorm: 9588221 1 Center NASAL BID 05/15/2018 05/14/2018 Inactive nystatin 100,000 unit/mL oral suspension RxNorm: 113009 5 Milliliter(s) PO QID 04/21/2018 04/30/2018 Inactive Breo Ellipta 100 mcg-25 mcg/dose powder for inhalation RxNorm: 5772601 1 INH daily 04/09/2018 04/03/2019 Active please call patient with jaramillo before sending prednisone 20 mg tablet RxNorm: 264805 1 Tablet(s) PO BID 04/09/2018 04/13/2018 Inactive start tomorrow Kenalog 40 mg/mL suspension for injection RxNorm: 5242745 1.5 Milliliter(s) Inj 04/09/2018 04/09/2018 Inactive Breo Ellipta 100 mcg-25 mcg/dose powder for inhalation RxNorm: 6900845 1 INH daily 04/09/2018 04/08/2018 Inactive alprazolam 1 mg tablet RxNorm: 548600 1 Tablet(s) PO TID 03/13/2018 06/30/2018 Inactive losartan 100 mg tablet RxNorm: 817873 TAKE 1 TABLET EVERY EVENING 03/02/2018 02/13/2021 Active Ventolin HFA 90 mcg/actuation aerosol inhaler RxNorm: 152130 2 INH Q4-6H as needed 12/29/2017 02/26/2018 Inactive Ventolin HFA 90 mcg/actuation aerosol inhaler RxNorm: 610059 2 INH Q4-6H as needed 12/29/2017 12/28/2017 Inactive Diflucan 150 mg tablet RxNorm: 010988 1 Tablet(s) PO daily 11/03/2017 11/05/2017 Inactive please call pt to let herknow when to pick- up the med Keflex 500 mg capsule RxNorm: 081757 1 Capsule(s) PO TID 10/23/2017 10/29/2017 Inactive Kenalog 40 mg/mL suspension for injection RxNorm: 0176782 1 Milliliter(s) Inj 10/16/2017 10/16/2017 Inactive ibuprofen 800 mg tablet RxNorm: 853442 TAKE 1 TABLET THREE TIMES DAILY 10/15/2017 01/07/2019 Active Lexapro 10 mg tablet RxNorm: 472876 TAKE 1 TABLET EVERY DAY 10/15/2017 10/09/2018 Active hydrocodone 5 mg-acetaminophen 325 mg tablet RxNorm: 665192 1 Tablet(s) PO QID as needed 09/03/2017 07/21/2018 Inactive omeprazole 20 mg capsule,delayed release RxNorm: 833606 1 Capsule(s) PO BID 09/02/2017 06/30/2018 Inactive alprazolam 1 mg tablet RxNorm: 883235 1 Tablet(s) PO TID 09/02/2017 03/12/2018 Inactive metoprolol tartrate 50 mg tablet RxNorm: 422663 1/2 Tablet(s) PO BID 06/26/2017 06/20/2018 Inactive omeprazole 20 mg capsule,delayed release RxNorm: 137782 1 Capsule(s) PO BID 06/05/2017 09/01/2017 Inactive omeprazole 20 mg capsule,delayed release RxNorm: 152956 1 Capsule(s) PO BID 05/28/2017 06/04/2017 Inactive omeprazole 20 mg capsule,delayed release RxNorm: 136306 1 Capsule(s) PO QPM 05/27/2017 05/27/2017 Inactive Breo Ellipta 100 mcg-25 mcg/dose powder for inhalation RxNorm: 9357748 1 INH daily 05/05/2017 04/08/2018 Inactive alprazolam 1 mg tablet RxNorm: 230078 1 Tablet(s) PO TID 02/10/2017 08/07/2017 Inactive metoprolol tartrate 50 mg tablet RxNorm: 620821 1/2 Tablet(s) PO BID 02/10/2017 06/25/2017 Inactive losartan 100 mg tablet RxNorm: 133327 1 Tablet(s) PO QPM 02/10/2017 02/04/2018 Inactive losartan 50 mg tablet RxNorm: 357111 2 Tablet(s) PO QPM 01/23/2017 02/09/2017 Inactive Diflucan 150 mg tablet RxNorm: 142110 1 Tablet(s) PO daily 01/20/2017 01/22/2017 Inactive please call pt to let herknow when to pick- up the med Diflucan 150 mg tablet RxNorm: 022080 1 Tablet(s) PO daily 01/20/2017 01/19/2017 Inactive please call pt to let herknow when to pick- up the med losartan 50 mg tablet RxNorm: 179541 1 Tablet(s) PO QPM 01/14/2017 01/22/2017 Inactive Cipro 500 mg tablet RxNorm: 027850 1 Tablet(s) PO BID 01/08/2017 01/17/2017 Inactive Cipro 500 mg tablet RxNorm: 116299 1 Tablet(s) PO BID 01/08/2017 01/07/2017 Inactive Lexapro 10 mg tablet RxNorm: 683632 TAKE 1 TABLET EVERY DAY 12/20/2016 10/14/2017 Inactive metoprolol tartrate 50 mg tablet RxNorm: 410516 1 Tablet(s) PO in the morning and 1.5 pill at night 12/11/2016 01/13/2017 Inactive spironolactone 25 mg tablet RxNorm: 711838 TAKE 1 TABLET EVERY DAY 11/04/2016 07/21/2018 Inactive metoprolol tartrate 50 mg tablet RxNorm: 841285 TAKE 1 TABLET TWICE DAILY 10/29/2016 12/10/2016 Inactive ibuprofen 800 mg tablet RxNorm: 772319 TAKE 1 TABLET THREE TIMES DAILY 10/21/2016 10/14/2017 Inactive Astepro 0.15 % (205.5 mcg) nasal spray RxNorm: 8223299 1 Center NASAL BID 10/15/2016 10/14/2016 Inactive Astepro 0.15 % (205.5 mcg) nasal spray RxNorm: 6620436 1 Center NASAL BID 10/15/2016 07/21/2018 Inactive Astepro 0.15 % (205.5 mcg) nasal spray RxNorm: 0157231 1 Center NASAL BID 10/15/2016 10/14/2016 Inactive omeprazole 20 mg capsule,delayed release RxNorm: 933977 1 Capsule(s) PO QPM 10/15/2016 05/26/2017 Inactive omeprazole 20 mg capsule,delayed release RxNorm: 531759 1 Capsule(s) QPM 10/15/2016 10/14/2016 Inactive omeprazole 20 mg capsule,delayed release RxNorm: 910549 TAKE 1 CAPSULE TWICE DAILY 09/02/2016 10/14/2016 Inactive Lexapro 10 mg tablet RxNorm: 332349 TAKE 1 TABLET EVERY DAY 08/21/2016 12/19/2016 Inactive calcitonin (salmon) 200 unit/actuation nasal spray RxNorm: 067947 1 Center NASAL daily ONE SPRAY PER ONE NOSTRIL DAILY- ALTERNATE NOSTRILS DAILY 05/31/2016 05/30/2016 Inactive She will do this for 3 months- If she wants to do a 3 month supply at one time she can without refill calcitonin (salmon) 200 unit/actuation nasal spray RxNorm: 948603 1 Center NASAL daily ONE SPRAY PER ONE NOSTRIL DAILY- ALTERNATE NOSTRILS DAILY 05/31/2016 07/30/2016 Inactive x3 months- no refills Forteo 20 mcg/dose (600 mcg/2.4 mL) subcutaneous pen injector RxNorm: 0602142 1 injection SQ daily 05/22/2016 05/30/2016 Inactive call pt with jaramillo first Forteo 20 mcg/dose (600 mcg/2.4 mL) subcutaneous pen injector RxNorm: 0703724 1 injection SQ daily 05/22/2016 05/21/2016 Inactive Prolia 60 mg/mL subcutaneous syringe RxNorm: 235210 1 Milliliter(s) SQ every 6 months 05/13/2016 07/21/2018 Inactive Please check jaramillo through insurance and let me know- Thanks! Mary Ellen alprazolam 1 mg tablet RxNorm: 004821 1 Tablet(s) PO TID 05/08/2016 11/01/2016 Inactive Lexapro 10 mg tablet RxNorm: 364506 TAKE 1 TABLET EVERY DAY 04/22/2016 08/20/2016 Inactive spironolactone 25 mg tablet RxNorm: 921995 TAKE 1 TABLET EVERY DAY 04/22/2016 11/03/2016 Inactive Diflucan 150 mg tablet RxNorm: 696324 1 Tablet(s) PO daily 03/20/2016 04/14/2016 Inactive Diflucan 150 mg tablet RxNorm: 243786 1 Tablet(s) PO daily 03/20/2016 03/19/2016 Inactive Augmentin 500 mg-125 mg tablet RxNorm: 167733 1 Tablet(s) PO TID 03/14/2016 03/23/2016 Inactive omeprazole 20 mg capsule,delayed release RxNorm: 854518 1 Tablet(s) PO BID 03/06/2016 09/01/2016 Inactive [SAVINGS FOR NON-COVERED DRUGS -- BIN:171584, PCN: ASPROD1, Group: XXXXX, ID# XXXXXXX, Questions: . THIS IS NOT INSURANCE.] amlodipine 5 mg tablet RxNorm: 888167 TAKE 1 TABLET EVERY DAY 03/01/2016 04/22/2016 Inactive omeprazole 20 mg tablet,delayed release RxNorm: 211263 1 Tablet(s) PO BID 02/27/2016 03/05/2016 Inactive [SAVINGS FOR NON-COVERED DRUGS -- BIN:951169, PCN: ASPROD1, Group: XXXXX, ID# XXXXXXX, Questions: . THIS IS NOT INSURANCE.] spironolactone 25 mg tablet RxNorm: 800837 TAKE 1 TABLET EVERY DAY 12/21/2015 04/21/2016 Inactive Lexapro 10 mg tablet RxNorm: 752269 1 Tablet(s) PO daily 12/19/2015 01/01/2016 Inactive Lexapro 10 mg tablet RxNorm: 824908 1 Tablet(s) PO daily 12/19/2015 02/09/2017 Inactive Lexapro 10 mg tablet RxNorm: 044441 1 Tablet(s) PO daily 12/19/2015 12/18/2015 Inactive alprazolam 1 mg tablet RxNorm: 368635 1 Tablet(s) PO TID 12/01/2015 02/28/2016 Inactive ibuprofen 800 mg tablet RxNorm: 446506 1 Tablet(s) PO TID 10/26/2015 10/20/2016 Inactive alprazolam 1 mg tablet RxNorm: 659453 1 Tablet(s) PO TID 08/23/2015 07/21/2018 Inactive spironolactone 25 mg tablet RxNorm: 792118 1 Tablet(s) PO daily 08/21/2015 12/20/2015 Inactive metoprolol tartrate 50 mg tablet RxNorm: 524755 1 Tablet(s) PO BID 08/10/2015 08/03/2016 Inactive [SAVINGS FOR NON-COVERED DRUGS -- BIN:420993, PCN: ASPROD1, Group: XXXXX, ID# XXXXXXX, Questions: . THIS IS NOT INSURANCE.] omeprazole 20 mg tablet,delayed release RxNorm: 027006 1 Tablet(s) PO BID 08/07/2015 02/02/2016 Inactive [SAVINGS FOR NON-COVERED DRUGS -- BIN:326627, PCN: ASPROD1, Group: XXXXX, ID# XXXXXXX, Questions: . THIS IS NOT INSURANCE.] Keflex 500 mg capsule RxNorm: 352339 1 Capsule(s) PO TID 07/10/2015 07/16/2015 Inactive alprazolam 1 mg tablet RxNorm: 971556 1 Tablet(s) PO TID 06/02/2015 08/22/2015 Inactive alprazolam 1 mg tablet RxNorm: 159513 1 Tablet(s) PO TID 03/29/2015 06/01/2015 Inactive amlodipine 5 mg tablet RxNorm: 615366 1 Tablet(s) PO daily 03/06/2015 02/29/2016 Inactive Nasonex 50 mcg/actuation Center RxNorm: 395810 1 Center NASAL daily 03/03/2015 03/02/2015 Inactive Keflex 500 mg capsule RxNorm: 194608 1 Capsule(s) PO TID 03/03/2015 03/02/2015 Inactive Nasonex 50 mcg/actuation Center RxNorm: 838649 1 Center NASAL daily 03/03/2015 05/01/2015 Inactive Keflex 500 mg capsule RxNorm: 870996 1 Capsule(s) PO TID 03/03/2015 03/05/2015 Inactive Carafate 1 gram tablet RxNorm: 356030 TAKE 1 TABLET FOUR TIMES DAILY 30 MINUTES BEFORE MEALS AND AT BEDTIME 02/28/2015 12/18/2015 Inactive Kenalog 40 mg/mL suspension for injection RxNorm: 1249640 Milliliter(s) Inj 02/07/2015 02/07/2015 Inactive [SAVINGS FOR NON-COVERED DRUGS -- BIN:774346, PCN: ASPROD1, Group: XXXXX, ID# XXXXXXX, Questions: . THIS IS NOT INSURANCE.] metoprolol tartrate 50 mg tablet RxNorm: 852427 1 Tablet(s) PO BID 02/07/2015 08/09/2015 Inactive [SAVINGS FOR NON-COVERED DRUGS -- BIN:893080, PCN: ASPROD1, Group: XXXXX, ID# XXXXXXX, Questions: . THIS IS NOT INSURANCE.] Carafate 1 gram tablet RxNorm: 386125 1 Tablet(s) PO QID 02/07/2015 02/27/2015 Inactive 30 min before meals and at bedtime omeprazole 20 mg tablet,delayed release RxNorm: 975294 1 Tablet(s) PO BID 02/07/2015 08/05/2015 Inactive [SAVINGS FOR NON-COVERED DRUGS -- BIN:147356, PCN: ASPROD1, Group: XXXXX, ID# XXXXXXX, Questions: . THIS IS NOT INSURANCE.] Vitamin D3 2,000 unit tablet RxNorm: 229233 1 Tablet(s) PO daily No Start Date Active aspirin 81 mg tablet RxNorm: 553909 1 Tablet(s) PO daily No Start Date Active amlodipine 2.5 mg tablet RxNorm: 500997 1 Tablet(s) PO daily No Start Date 03/05/2015 Inactive spironolactone 25 mg tablet RxNorm: 106978 1 Tablet(s) PO daily No Start Date 08/20/2015 Inactive cetirizine 10 mg tablet RxNorm: 8061247 1 Tablet(s) PO daily No Start Date 12/18/2015 Inactive metoprolol tartrate 50 mg tablet RxNorm: 455075 1 Tablet(s) PO daily No Start Date 02/06/2015 Inactive ipratropium bromide 0.06 % nasal spray RxNorm: 565582 nasal No Start Date 12/18/2015 Inactive alprazolam 1 mg tablet RxNorm: 121306 1 Tablet(s) PO TID No Start Date 03/28/2015 Inactive Prolia 60 mg/mL subcutaneous syringe RxNorm: 779116 1 Milliliter(s) SQ every 6 months No Start Date 05/12/2016 Inactive Please check jaramillo through insurance and let me know- Thanks! Mary Ellen ibuprofen 800 mg tablet RxNorm: 468445 1 Tablet(s) PO TID No Start Date 10/25/2015 Inactive Protonix 40 mg tablet,delayed release RxNorm: 880526 1 Tablet(s) PO daily No Start Date 03/05/2015 Inactive Vitamin B-12 1,000 mcg/mL injection solution RxNorm: 211895 1 Milliliter(s) Inj Q2 weeks x2 months and then monthly injections No Start Date 05/20/2018 Inactive loratadine 10 mg tablet RxNorm: 994681 1 Tablet(s) PO daily No Start Date 07/21/2018 Inactive Medication Administered Medication Codes Instructions Start Date Status cyanocobalamin (vit B-12) 1,000 mcg/mL injection solution RxNorm: 638050 1Milliliter 07/16/2018 No longer Active cyanocobalamin (vit B-12) 1,000 mcg/mL injection solution RxNorm: 660462 Milliliter 07/01/2018 No longer Active cyanocobalamin (vit B-12) 1,000 mcg/mL injection solution RxNorm: 948523 Milliliter 06/15/2018 No longer Active cyanocobalamin (vit B-12) 1,000 mcg/mL injection solution RxNorm: 463412 Milliliter 06/02/2018 No longer Active cyanocobalamin (vit B-12) 1,000 mcg/mL injection solution RxNorm: 288375 Milliliter 05/21/2018 No longer Active Kenalog 40 mg/mL suspension for injection RxNorm: 7087762 1.5Milliliter 04/09/2018 No longer Active Kenalog 40 mg/mL suspension for injection RxNorm: 3366434 1Milliliter 10/16/2017 No longer Active Kenalog 40 mg/mL suspension for injection RxNorm: 6509518 Milliliter 02/07/2015 No longer Active Immunizations Vaccine Codes Date Status Influenza CVX: 141 06/25/2018 completed Pneumococcal (Adult) CVX: 33 08/28/2016 completed Assessments Condition Codes Effective Dates Generalized abdominal pain ICD-10: R10.84 ICD-9: 789.07 07/22/2018 Essential (primary) hypertension ICD-10: I10 ICD-9: 401.1 07/22/2018 Fecal urgency ICD-10: R15.2 ICD-9: 787.63 07/22/2018 Other vitamin B12 deficiency anemias ICD-10: D51.8 ICD-9: 281.1 07/16/2018 Encounter for immunization ICD-10: Z23 ICD-9: V03.82 [...] Reason For Visit Effective Dates Notes hypertension 07/22/2018 hypertension 04/21/2018 headache 04/09/2018 hypertension [...] Item Item Code Result Date Comp Metabolic Xdf606 NA 138 mEq/L 09/03/2017 Comp Metabolic Cnw703 K 3.9 mEq/L 09/03/2017 Comp Metabolic Awi448 CL 102 mEq/L 09/03/2017 Comp Metabolic Yfc595 CO2 32.0 mEq/L 09/03/2017 Comp Metabolic Zch734 ANION GAP 8 09/03/2017 Comp Metabolic Kup076 GLUCOSE 89 mg/dL 09/03/2017 Comp Metabolic Use478 Creat 0.6 mg/dL 09/03/2017 Comp Metabolic Bld502 eGFR 103 ml/min/1.73m2 09/03/2017 Comp Metabolic Xhi563 BUN 10 mg/dL 09/03/2017 Comp Metabolic Gke743 B/C Ratio 16.7 Ratio 09/03/2017 Comp Metabolic Jkg578 CALCIUM 8.9 mg/dL 09/03/2017 Comp Metabolic Bkg579 ALK PHOS 141 U/L 09/03/2017 Comp Metabolic Wtz300 AST(SGOT) 12 U/L 09/03/2017 Comp Metabolic Tqq341 ALT(SGPT) 7 U/L 09/03/2017 Comp Metabolic Nxk949 BILI T 0.6 mg/dL 09/03/2017 Comp Metabolic Vmw497 ALBUMIN 3.6 g/dL 09/03/2017 Comp Metabolic Gqw184 TPRO 6.6 g/dL 09/03/2017 Comp Metabolic Cpz004 GLOB 3.0 g/dL 09/03/2017 Comp Metabolic Ymp623 A/G Ratio 1.2 Ratio 09/03/2017 Comp Metabolic Vdq796 Osmo 274 mOsmo 09/03/2017 Hepatic Sim324 ALBUMIN 3.7 g/dL 08/11/2017 Hepatic Iro089 TPRO 7.0 g/dL 08/11/2017 Hepatic Lwt927 GLOB 3.3 g/dL 08/11/2017 Hepatic Mni859 A/G Ratio 1.1 Ratio 08/11/2017 Hepatic Xlp746 ALK PHOS 85 U/L 08/11/2017 Hepatic Xgt802 ALT(SGPT) 11 U/L 08/11/2017 Hepatic Uzi056 AST(SGOT) 16 U/L 08/11/2017 Hepatic Yes651 BILI T 0.6 mg/dL 08/11/2017 Hepatic Nmx322 BILI D 0.1 mg/dL 08/11/2017 Hepatic Ery470 BILI I 0.5 mg/dL 08/11/2017 Hepatic Avn552 ALBUMIN 3.1 g/dL 07/18/2017 Hepatic Brl656 TPRO 5.9 g/dL 07/18/2017 Hepatic Lnx329 GLOB 2.8 g/dL 07/18/2017 Hepatic Tit026 A/G Ratio 1.1 Ratio 07/18/2017 Hepatic Yvr614 ALK PHOS 123 U/L 07/18/2017 Hepatic Dak032 ALT(SGPT) 210 U/L 07/18/2017 Hepatic Lya417 AST(SGOT) 71 U/L 07/18/2017 Hepatic Drr060 BILI T 1.1 mg/dL 07/18/2017 Hepatic Sbt279 BILI D 0.4 mg/dL 07/18/2017 Hepatic Rza023 BILI I 0.7 mg/dL 07/18/2017 Cbc With [...] 24.5 % 02/25/2017 Cbc With Differential Ord2 Noble% 7.6 % 02/25/2017 Cbc With Differential Ord2 [...] 1.22 K/ul 02/25/2017 Cbc With Differential Ord2 Noble ABS# 0.4 K/ul 02/25/2017 Cbc With Differential [...] 98.0 fl 01/02/2017 Cbc With Differential Ord2 Noble% 7.8 % 01/02/2017 Cbc With Differential Ord2 [...] 0.90 K/ul 01/02/2017 Cbc With Differential Ord2 Noble ABS# 0.4 K/ul 01/02/2017 Cbc With Differential Ord2 Eos ABS# 0.3 K/ul 01/02/2017 Cbc With Differential Ord2 Baso ABS# 0.0 K/ul 01/02/2017 Lipid Ord30 CHOL 139 mg/dL 12/13/2016 Lipid Ord30 HDL 48.0 mg/dl 12/13/2016 Lipid Ord30 TRIG 84 mg/dL 12/13/2016 Lipid Ord30 LDL 74 mg/dL 12/13/2016 Lipid Ord30 C/HDL 2.9 Ratio 12/13/2016 Comp Metabolic Squ325 NA 137 mEq/L 12/13/2016 Comp Metabolic Gln601 K 4.8 mEq/L 12/13/2016 Comp Metabolic Pdq205 CL 101 mEq/L 12/13/2016 Comp Metabolic Hqs554 CO2 32.0 mEq/L 12/13/2016 Comp Metabolic Rwl171 ANION GAP 9 12/13/2016 Comp Metabolic Djc981 GLUCOSE 95 mg/dL 12/13/2016 Comp Metabolic Wky238 Creat 0.8 mg/dL 12/13/2016 Comp Metabolic Bya069 eGFR 79 ml/min/1.73m2 12/13/2016 Comp Metabolic Hhn798 BUN 15 mg/dL 12/13/2016 Comp Metabolic Bok799 B/C Ratio 19.7 Ratio 12/13/2016 Comp Metabolic Drq781 CALCIUM 9.3 mg/dL 12/13/2016 Comp Metabolic Ivw023 ALK PHOS 63 U/L 12/13/2016 Comp Metabolic Efx526 AST(SGOT) 15 U/L 12/13/2016 Comp Metabolic Jjx845 ALT(SGPT) 10 U/L 12/13/2016 Comp Metabolic Jqp876 BILI T 0.7 mg/dL 12/13/2016 Comp Metabolic Fal712 ALBUMIN 3.7 g/dL 12/13/2016 Comp Metabolic Oed663 TPRO 6.8 g/dL 12/13/2016 Comp Metabolic Vud565 GLOB 3.2 g/dL 12/13/2016 Comp Metabolic Kns139 A/G Ratio 1.2 Ratio 12/13/2016 Comp Metabolic Yri778 Osmo 274 mOsmo 12/13/2016 Cbc With Differential [...] 97.4 fl 12/13/2016 Cbc With Differential Ord2 Noble% 9.9 % 12/13/2016 Cbc With Differential Ord2 [...] 1.17 K/ul 12/13/2016 Cbc With Differential Ord2 Noble ABS# 0.4 K/ul 12/13/2016 Cbc With Differential [...] 32.1 pg 12/19/2015 Cbc With Differential Ord2 Noble% 5.9 % 12/19/2015 Cbc With Differential Ord2 [...] 1.53 K/ul 12/19/2015 Cbc With Differential Ord2 Noble ABS# 0.3 K/ul 12/19/2015 Cbc With Differential [...] Ord30 C/HDL 2.8 Ratio 12/19/2015 Comp Metabolic Gxo742 NA 135 mEq/L 12/19/2015 Comp Metabolic Wbo798 K 4.1 mEq/L 12/19/2015 Comp Metabolic Mcr526 CL 99 mEq/L 12/19/2015 Comp Metabolic Fta923 CO2 27.0 mEq/L 12/19/2015 Comp Metabolic Dyb181 ANION GAP 13 12/19/2015 Comp Metabolic Ylr809 GLUCOSE 83 mg/dL 12/19/2015 Comp Metabolic Xuh643 Creat 0.7 mg/dL 12/19/2015 Comp Metabolic Yhl002 eGFR 88 ml/min/1.73m2 12/19/2015 Comp Metabolic Jkz601 BUN 12 mg/dL 12/19/2015 Comp Metabolic Keh458 B/C Ratio 17.4 Ratio 12/19/2015 Comp Metabolic Mik393 CALCIUM 9.0 mg/dL 12/19/2015 Comp Metabolic Qyr333 ALK PHOS 68 U/L 12/19/2015 Comp Metabolic Xvm563 AST(SGOT) 16 U/L 12/19/2015 Comp Metabolic Ipy038 ALT(SGPT) 13 U/L 12/19/2015 Comp Metabolic Uxz797 BILI T 0.7 mg/dL 12/19/2015 Comp Metabolic Hrl527 ALBUMIN 4.0 g/dL 12/19/2015 Comp Metabolic Bgj833 TPRO 7.0 g/dL 12/19/2015 Comp Metabolic Muf557 GLOB 3.0 g/dL 12/19/2015 Comp Metabolic Wns220 A/G Ratio 1.3 Ratio 12/19/2015 Comp Metabolic Sbl254 Osmo 269 mOsmo 12/19/2015 Review of Systems System Result Effective Dates Constitutional No recent illness 07/22/2018 Constitutional No [...] PRESCRIP TRANSMIT VIA ERX SY CPT-4: G8553 07/22/2018 THER/PROPH/DIAG INJ SC/IM CPT-4: 37090 07/16/2018 VITAMIN B12 INJECTION CPT- 4: J3420 07/16/2018 THER/PROPH/DIAG INJ SC/IM CPT-4: 56645 07/01/2018 VITAMIN B12 INJECTION CPT- 4: J3420 07/01/2018 ADMIN INFLUENZA VIRUS VAC CPT-4: G0008 06/25/2018 FLU VACC PRSV FREE INC ANTIG Formatting Model/CDA Sections, Assigned to/Miranda Ayala CPT-4: 12306Yihvgql 06/25/2018 THER/PROPH/DIAG INJ SC/IM CPT-4: 00620 06/15/2018 VITAMIN B12 INJECTION CPT- 4: J3420 06/15/2018 THER/PROPH/DIAG INJ SC/IM CPT-4: 69423 06/02/2018 VITAMIN B12 INJECTION CPT- 4: J3420 06/02/2018 THER/PROPH/DIAG INJ SC/IM CPT-4: 87448 05/21/2018 VITAMIN B12 INJECTION CPT- 4: J3420 05/21/2018 TRIAMCINOLONE ACET INJ NOS CPT-4: J3301 04/09/2018 PPPS, SUBSEQ VISIT CPT- 4: G0439 12/18/2017 TRIAMCINOLONE ACET INJ NOS CPT-4: J3301 10/16/2017 DRAIN/INJECT JOINT/BURSA CPT-4: 98494 10/16/2017 PRESCRIP TRANSMIT VIA ERX SY CPT-4: G8553 05/05/2017 PRESCRIP TRANSMIT VIA ERX SY CPT-4: G8553 01/14/2017 PPPS, SUBSEQ VISIT CPT- 4: G0439 12/12/2016 PRESCRIP TRANSMIT VIA ERX SY CPT-4: G8553 10/15/2016 ADMIN PNEUMOCOCCAL VACCINE SNOMED CT: 43601600 CPT-4: G0009 08/28/2016 Pneumococcal Polysaccharide Vaccine, 23-Valent, Ad CPT-4: 81438 08/28/2016 PRESCRIP TRANSMIT VIA ERX SY CPT-4: G8553 03/14/2016 PRESCRIP TRANSMIT VIA ERX SY CPT-4: G8553 12/19/2015 THER/PROPH/DIAG INJ SC/IM CPT-4: 17793 02/07/2015 TRIAMCINOLONE ACET INJ NOS CPT-4: J3301 02/07/2015 Vital Signs Date Vital 07/22/2018 Blood Pressure 1: 120/82 Code: 8480-6 BMI: 24.9 Code: 94128-0 Heart Rate 1: 64 bpm Height: 5'1" SpO2: 95% Weight: 132 lbs 04/21/2018 Blood Pressure 1: 108/70 Code: 8480-6 BMI: 24.4 Code: 63201-6 Heart Rate 1: 62 bpm Height: 5'1" SpO2: 94% Weight: 129 lbs 04/09/2018 Blood Pressure 1: 138/86 Code: 8480-6 BMI: 25.5 Code: 36332-8 Heart Rate 1: 64 bpm Height: 5'1" SpO2: 99% Temperature: 36.4 (C) / 97.5 (F) Weight: 135 lbs 01/19/2018 Blood Pressure 1: 128/76 Code: 8480-6 BMI: 25.9 Code: 89389-5 Heart Rate 1: 65 bpm Height: 5'1" SpO2: 98% Weight: 137 lbs 12/18/2017 Blood Pressure 1: 144/82 Code: 8480-6 BMI: 26.1 Code: 01226-1 Heart Rate 1: 57 bpm Height: 5'1" SpO2: 97% Waist Measure (cm): 74 cm Weight: 138 lbs 10/16/2017 Blood Pressure 1: 142/88 Code: 8480-6 BMI: 25.5 Code: 63110-7 Heart Rate 1: 63 bpm Height: 5'1" SpO2: 97% Weight: 135 lbs 09/03/2017 Blood Pressure 1: 144/90 Code: 8480-6 BMI: 26.3 Code: 27385-5 Heart Rate 1: 91 bpm Height: 5'1" SpO2: 96% Weight: 139 lbs 07/31/2017 Blood Pressure 1: 136/90 Code: 8480-6 BMI: 26.3 Code: 42072-2 Height: 5'1" Weight: 139 lbs 07/18/2017 Blood Pressure 1: 136/84 Code: 8480-6 06/16/2017 Blood Pressure 1: 136/84 Code: 8480-6 BMI: 26.5 Code: 88530-3 Heart Rate 1: 72 bpm Height: 5'1" SpO2: 97% Weight: 140 lbs 05/28/2017 Blood Pressure 1: 138/78 Code: 8480-6 BMI: 26.1 Code: 41236-2 Heart Rate 1: 70 bpm Height: 5'1" SpO2: 98% Weight: 138 lbs 05/05/2017 Blood Pressure 1: 140/86 Code: 8480-6 BMI: 25.3 Code: 57069-6 Heart Rate 1: 66 bpm Height: 5'1" SpO2: 99% Weight: 134 lbs 03/13/2017 Blood Pressure 1: 126/74 Code: 8480-6 BMI: 25.3 Code: 82499-6 Heart Rate 1: 73 bpm Height: 5'1" SpO2: 98% Weight: 134 lbs 02/10/2017 Blood Pressure 1: 148/88 Code: 8480-6 BMI: 25.9 Code: 19453-6 Heart Rate 1: 84 bpm Height: 5'1" SpO2: 97% Weight: 137 lbs 01/14/2017 Blood Pressure 1: 134/86 Code: 8480-6 BMI: 25.7 Code: 56783-2 Heart Rate 1: 83 bpm Height: 5'1" SpO2: 95% Weight: 136 lbs 01/07/2017 Blood Pressure 1: 136/88 Code: 8480-6 BMI: 25.1 Code: 83931-5 Heart Rate 1: 86 bpm Height: 5'1" SpO2: 94% Weight: 133 lbs 01/02/2017 Blood Pressure 1: 122/68 Code: 8480-6 Blood Pressure 2: 116/78 Code: 8480-6 01/01/2017 Blood Pressure 1: 90/52 Code: 8480-6 BMI: 25.1 Code: 41251- 5 Heart Rate 1: 86 bpm Height: 5'1" SpO2: 99% Weight: 133 lbs 12/20/2016 Blood Pressure 1: 120/76 Code: 8480-6 12/12/2016 Blood Pressure 1: 130/72 Code: 8480-6 BMI: 24.8 Code: 53190-1 Heart Rate 1: 62 bpm Height: 5'1" SpO2: 98% Waist Measure (cm): 79 cm Weight: 131 lbs 12/11/2016 Blood Pressure 1: 132/70 Code: 8480-6 BMI: 24.8 Code: 98829-7 Heart Rate 1: 60 bpm Height: 5'1" Weight: 131 lbs 10/15/2016 Blood Pressure 1: 108/66 Code: 8480-6 BMI: 24.8 Code: 67139-1 Heart Rate 1: 60 bpm Height: 5'1" Weight: 131 lbs 07/17/2016 Blood Pressure 1: 128/82 Code: 8480-6 BMI: 25.3 Code: 22411-4 Heart Rate 1: 50 bpm Height: 5'2" Weight: 136 lbs 05/15/2016 Blood Pressure 1: 108/70 Code: 8480-6 BMI: 23.4 Code: 83321-9 Heart Rate 1: 54 bpm Height: 5'2" SpO2: 96% Weight: 126 lbs 04/23/2016 Blood Pressure 1: 112/60 Code: 8480-6 BMI: 23.6 Code: 81414-0 Heart Rate 1: 92 bpm Height: 5'2" SpO2: 95% Weight: 127 lbs 03/14/2016 Blood Pressure 1: 118/74 Code: 8480-6 BMI: 24.0 Code: 32003-6 Heart Rate 1: 51 bpm Height: 5'2" SpO2: 94% Temperature: 36.8 (C) / 98.3 (F) Weight: 129 lbs 02/19/2016 Blood Pressure 1: 110/62 Code: 8480-6 BMI: 23.4 Code: 86202-2 Heart Rate 1: 74 bpm Height: 5'2" SpO2: 97% Weight: 126 lbs 12/19/2015 Blood Pressure 1: 108/74 Code: 8480-6 BMI: 23.6 Code: 09406-7 Heart Rate 1: 52 bpm Height: 5'2" Weight: 127 lbs 03/06/2015 Blood Pressure 1: 136/88 Code: 8480-6 Heart Rate 1: 64 bpm Weight: 129 lbs 02/07/2015 Blood Pressure 1: 142/90 Code: 8480-6 BMI: 24.5 Code: 61708-2 Heart Rate 1: 82 bpm Height: 5'2" Weight: 132 lbs Functional Status No Functional Status data History of Present Illness Symptom Name Status Result Effective Date Notes hypertension Quality chronic 07/22/2018 None hypertension Quality [...] data Encounters Encounter Performer Location Codes Date ([id number]) [id number] EST. PATIENT, LEVEL IV Diagnosis: Fecal urgency[ICD10: R15.2] Diagnosis: Generalized abdominal pain[ICD10: R10.84] Diagnosis: Essential (primary) hypertension[ICD10: I10] Kim Burden MD, [facility] CPT-4: 64603 07/22/2018 [id number]) 10903 EST. PATIENT, LEVEL IV Diagnosis: Essential (primary) hypertension[ICD10: I10] Diagnosis: Other emphysema[ICD10: J43.8] Diagnosis: Candidal stomatitis[ICD10: B37.0] Kim Burden MD, [facility] CPT- 4: 64976 04/21/2018 ([id number]) 68576 EST. PATIENT, LEVEL III Diagnosis: Chronic obstructive pulmonary disease with (acute) exacerbation[ICD10: J44.1] Mallorie Burden MD, [facility] CPT-4: 26577 04/09/2018 ([id number]) 32903 EST. PATIENT, LEVEL IV Diagnosis: Essential (primary) hypertension[ICD10: I10] Diagnosis: Other emphysema[ICD10: J43.8] Kim Burden MD, [facility] CPT-4: 96939 01/19/2018 [id number]) 68306 EST. PATIENT, LEVEL IV Diagnosis: Essential (primary) hypertension[ICD10: I10] Diagnosis: Other emphysema[ICD10: J43.8] Diagnosis: Dependence on supplemental oxygen[ICD10: Z99.81] Diagnosis: Hypoxemia[ICD10: R09.02] Diagnosis: Pain in left knee[ICD10: M25.562] Diagnosis: Effusion, left knee[ICD10: M25.462] Kim Burden MD, [facility] CPT- 4: 54913 10/16/2017 60914 EST. PATIENT, LEVEL III Diagnosis: Pain in thoracic spine[ICD10: M54.6] Pebbles Burden MD, [facility] CPT- 4: 76994 09/03/2017 ([id number]) 96858 EST. PATIENT, LEVEL III Diagnosis: Essential (primary) hypertension[ICD10: I10] Diagnosis: Other emphysema[ICD10: J43.8] Kim Burden MD [facility] CPT-4: 43648 07/31/2017 ([id number]) Miscellaneous no charge Diagnosis: Essential (primary) hypertension[ICD10: I10] Mallorie Burden MD [facility] CPT-4: 40285 07/18/2017 ([id number]) 33138 EST. PATIENT, LEVEL III Diagnosis: Pain in left knee[ICD10: M25.562] Diagnosis: Effusion, left knee[ICD10: M25.462] Mallorie Burden MD [facility] CPT-4: 32684 06/16/2017 ([id number]) 14938 EST. PATIENT, LEVEL III Diagnosis: Essential (primary) hypertension[ICD10: I10] Diagnosis: Unsteadiness on feet[ICD10: R26.81] Kim Burden MD [facility] CPT- 4: 76540 05/28/2017 ([id number]) 15099 EST. PATIENT, LEVEL IV Diagnosis: Essential (primary) hypertension[ICD10: I10] Diagnosis: Chronic obstructive pulmonary disease with acute lower respiratory infection[ICD10: J44.0] Kim Burden MD [facility] CPT-4: 60776 05/05/2017 ([id number]) 31057 EST. PATIENT, LEVEL IV Diagnosis: Essential (primary) hypertension[ICD10: I10] Diagnosis: Major depressive disorder, recurrent, mild[ICD10: F33.0] Kim Burden MD [facility] CPT-4: 52596 03/13/2017 ([id number]) 13737 EST. PATIENT, LEVEL IV Diagnosis: Essential (primary) hypertension[ICD10: I10] Diagnosis: Gastro-esophageal reflux disease without esophagitis[ICD10: K21.9] Diagnosis: Chronic obstructive pulmonary disease, unspecified[ICD10: J44.9] Kim Burden MD [facility] CPT-4: 95459 02/10/2017 ([id number]) 23946 EST. PATIENT, LEVEL IV Diagnosis: Essential (primary) hypertension[ICD10: I10] Diagnosis: Gastro-esophageal reflux disease without esophagitis[ICD10: K21.9] Diagnosis: Chronic obstructive pulmonary disease with acute lower respiratory infection[ICD10: J44.0] Kim Burden MD [facility] CPT-4: 54084 01/14/2017 32905 EST. PATIENT, LEVEL IV Diagnosis: Other fatigue[ICD10: R53.83] Diagnosis: Other malaise[ICD10: R53.81] Diagnosis: Headache[ICD10: R51] Diagnosis: Palpitations[ICD10: R00.2] Diagnosis: Dehydration[ICD10: E86.0] Pebbles Burden MD, [facility] CPT-4: 78628 01/07/2017 ([id number]) Miscellaneous no charge Diagnosis: Essential (primary) hypertension[ICD10: I10] Pebbles Burden MD [facility] CPT-4: 29249 01/02/2017 96891 EST. PATIENT, LEVEL IV Diagnosis: Chronic obstructive pulmonary disease, unspecified[ICD10: J44.9] Diagnosis: Essential (primary) hypertension[ICD10: I10] Diagnosis: Other fatigue[ICD10: R53.83] Pebbles Burden MD [facility] CPT-4: 75230 01/01/2017 ([id number]) Miscellaneous no charge Diagnosis: Essential (primary) hypertension[ICD10: I10] Pebbles Burden MD, [facility] CPT-4: 71586 12/20/2016 ([id number]) 52786 EST. 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 PATIENT, LEVEL IV Diagnosis: Essential (primary) hypertension[ICD10: I10] Diagnosis: Other allergic rhinitis[ICD10: J30.89] Diagnosis: Gastro-esophageal reflux disease without esophagitis[ICD10: K21.9] Kim Burden MD, [facility] CPT-4: 04207 10/15/2016 ([id number]) 91734 EST. 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 PATIENT, LEVEL III Diagnosis: Pain in left hip[ICD10: M25.552] Diagnosis: Acute laryngopharyngitis[ICD10: J06.0] Kim Burden MD, [facility] CPT-4: 02739 05/15/2016 ([id number]) 39231 EST. PATIENT, LEVEL III Diagnosis: Fracture of unspecified parts of lumbosacral spine and pelvis, initial encounter for closed fracture[ICD10: S32.9XXA] Diagnosis: Essential (primary) hypertension[ICD10: I10] Kim Burden MD, [facility] CPT-4: 50411 04/23/2016 42115 EST. PATIENT, LEVEL IV Diagnosis: Acute laryngopharyngitis[ICD10: J06.0] Diagnosis: Other allergic rhinitis[ICD10: J30.89] Pebbles Burden MD, [facility] CPT- 4: 61109 03/14/2016 77448 EST. PATIENT, LEVEL IV Diagnosis: Dysuria[ICD10: R30.0] Diagnosis: Left lower quadrant pain[ICD10: R10.32] Pebbles Burden MD, [facility] CPT-4: 66063 02/19/2016 ([id number]) 35478 EST. 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 PATIENT, LEVEL IV Diagnosis: ESSENTIAL HYPERTENSION[ICD9: 401.9] Diagnosis: ACUTE URI[ICD9: 465.9] Kim Burden MD, [facility] CPT-4: 98751 03/06/2015 ([id number]) OFFICE VISIT, NEW - LEVEL 4 Diagnosis: ESOPHAGEAL REFLUX[ICD9: 530.81] Diagnosis: ESSENTIAL HYPERTENSION[ICD9: 401.9] Diagnosis: COPD (chronic obstructive pulmonary disease)[ICD9: 496] Diagnosis: ALLERGIC RHINITIS[ICD9: 477.9] Mallorie Burden MD, [facility] CPT-4: 08992 02/07/2015 Plan of Care Planned Activity Notes Codes Status Date Visit Plan: Fecal urgency - Abdominal discomfort [...] in blood pressure readings at home. 07/22/2018 Patient Education: Patient Medication Summary Completed [...] swallow. 04/21/2018 [phone] (15 min) Moderate 04/21/2018 Patient [...] changes. 04/09/2018 [phone] (30 min) Complex 04/09/2018 Patient Education: Patient [...] 01/19/2018 Appointment: Kim Burden WPtel: [phone] [facility] (15 min) Moderate 01/19/2018 Patient Education: Patient Medication Summary Completed 01/19/2018 App[facility]ment[phone] [facility] (15 min) Moderate 01/14/2018 Visit Plan: Medicare [...] surrogate. 12/18/2017 Appointment: Pebbles Lund WPtel: [facility] [facility] - Annual Wellness Visit 12/18/2017 Patient Education: [...] home. 10/16/2017 Appointment: Kim Burden WPtel: [facility]5 [facility] (15 min) Moderate 10/16/2017 Patient Education: Patient [...] concerns. 09/03/2017 Appointment: Pebbles Lund WPtel: [facility]5 [facility] (15 min) Moderate 09/03/2017 Patient Education: Patient Medication Summary Completed 09/03/2017 Appointment: Kim Burden WPtel: [facility]5 [facility] (15 min) Moderate 08/11/2017 Appointment: Kim Burden WPtel: [facility]5 [facility] (15 min) Moderate 08/11/2017 Patient Education: Patient [...] treatment. 07/31/2017 Appointment: Kim Burden WPtel: [phone] [facility] (15 min) Moderate 07/31/2017 Patient Education: Patient Medication Summary Completed 07/31/2017 Appointment: Nurse Visit 07/18/2017 Patient Education: Patient Medication Summary Completed 07/18/2017 Patient Education: Patient Medication Summary Completed 07/18/2017 Appointment: Kim Burden WPtel: [phone] [facility] (15 min) Moderate 06/30/2017 Visit Plan: Effusion left knee-fall 2 weeks ago-recommend compression of joint and refer to Ortho for evaluation and treatment-will refer to Dr Pryor/Quinton Mccormick. Patient verbalized understanding of plan. 06/16/2017 Appointment: [facility] Wet[phone] [phone] [place] (30 min) Complex 06/16/2017 Patient [...] active. 05/28/2017 App[facility]ment[phone] (15 min) Moderate 05/28/2017 Patient Education: Patient [...] acute changes. 05/05/2017 Appointment: Kim Burden WPtel: [phone] [facility] (15 min) Moderate 05/05/2017 Patient Education: Patient [...] medications. 03/13/2017 Appointment: Kim Burden WPtel: [phone] [facility] (15 min) Moderate 03/13/2017 Patient Education: Patient [...] symptoms worsening. 02/10/2017 Appointment: Kim Burden WPtel: [phone] [facility] (15 min) Moderate 02/10/2017 Patient Education: Patient [...] not improving. 01/14/2017 App[facility]ment: [phone] (15 min) Moderate 01/14/2017 Patient [...] concerns. 01/07/2017 Appointment: Pebbles Lund [facility]Ptel[facility] [phone] [facility] (30 min) Complex 01/07/2017 Patient Education: [...] pressures. 01/01/2017 Appointment: Pebbles Lund [facility]Ptel[phone] [facility] (30 min) Complex 01/01/2017 Patient Education: [...] surrogate. 12/12/2016 Appointment: Pebbles Lund [facility]Ptel[facility] [phone] [facility] [facility] - Annual Wellness Visit 12/12/2016 Patient Education: [...] this time. 12/11/2016 Appointment: Kim Burden WPtel: [facility] (15 min) Moderate 12/11/2016 Patient Education: Patient Medication Summary Completed 12/11/2016 Appointment: Mallorie Wetzel WPtel: [phone] (30 min) Complex 12/10/2016 Visit Plan: [...] not improving. 10/15/2016 Appointment: Kim Burden WPtel: 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 07/17/2016 Appointment: Kim Burden WPtel: [facility]5 [facility] (15 min) Moderate 07/17/2016 Patient Education: Patient Medication Summary Completed 07/17/2016 Appointment: Kim Burden WPtel: [facility]5 [facility] (15 min) Moderate 06/10/2016 Visit Plan: Hip pain - persistent but improving - continue with current treatment plan. Pt to call if her symptoms are not improving or if her hip pain worsens. URI symptoms - supportive care, use otc allergy medications. 05/15/2016 Appointment: Kim Burden WPtel: [facility] (15 min) Moderate 05/15/2016 Patient Education: Patient [...] not improving. 04/23/2016 Appointment: Kim Burden WPtel: [facility]5 [facility] [place] (15 min) Moderate 04/23/2016 Patient Education: Patient Medication Summary Completed 04/23/2016 Patient Education: Hypertension Completed 04/23/2016 Care Plan: X-RAY EXAM OF ABDOMEN LOINC : 44192-7 Pending 03/18/2016 Visit Plan: URI - Pt [...] allergy spray. 03/14/2016 Appointment: Pebbles Lund WPtel: [facility]5 [facility] (30 min) Complex 03/14/2016 Patient Education: Patient Medication Summary Completed 03/14/2016 Patient Education: Patient Medication Summary Completed 02/29/2016 Visit Plan: Flank pain - pt is currently being treated for UTI, but is having continued left flank pain - will get KUB - pt is to notify clinic if symptoms do not improve, or with any concerns. 02/19/2016 Appointment: Pebbles Lund WPtel: [facility] (30 min) Complex 02/19/2016 Patient Education: Patient Medication Summary Completed 02/19/2016 Appointment: Kim Burden WPtel: [facility]6 [facility] (15 min) Moderate 01/22/2016 Visit [...] improving. 12/19/2015 Appointment: [phone] (15 min) Moderate 12/19/2015 Patient [...] RX. 03/06/2015 Appointment: [phone] Follow up 03/06/2015 Patient Education: [...] Completed 02/07/2015 Care Plan: SCREENINGMAMMOGRAPHYDIGITAL LOINC : 25977-3 Ordered 02/07/2015 Care Plan: COMPLETE CBC AUTOMATED LOINC : 43229-8 Ordered 02/07/2015 Instructions Comment . Dehydration, palpitations, [...] to help decrease GI upset./loose stools - [employer] or [employer] . Hypertension - well controlled - continue [...] care surrogate. TAKE WITH [employer] ([employer] OR [employer]) . URI - Pt advised to increase [...]
--- OUTSIDE RECORDS SUMMARY | 2019-04-06 09:48 | XMS REPORT | CCD ---
Author Author Mallorie Wetzel Organization Kim Burden MD, [facility] Address [address] [place] [address] Phone Care Team Providers Care Rewriter Name Role Phone PP Unavailable CCM Unavailable Summary Purpose Interface Exchange Insurance Providers Payer name Policy type / Coverage type Covered libertarian ID Effective Begin Date Effective End Date WPS Medicare Part B Medicare Part B [id number] 2018 Unknown AETNA Medicare Part B [id number] Unknown Family history Brother Diagnosis Age At [...] 02/07/2015 Employment Unknown Currently employed works at [employer] 02/07/[address]: 0526011 Quit over 10 years ago 199302/07/2015 Number [...] Codes Condition Status Onset Date Resolved Date Vitamin B12 deficiency anemia, unspecified ICD-9: 281.1 ICD-10: D51.9 Active 05/21/2018 Unknown Candidal stomatitis ICD- 9: 112.0 ICD-10: B37.0 Active 04/21/2018 Unknown Essential (primary) hypertension ICD-9: 401.1 ICD-10: I10 Active 01/14/2017 Unknown Other emphysema ICD-9: 492.8 ICD-10: J43.8 [...] Problems Condition Codes Effective Dates Condition Status Vitamin B12 deficiency anemia, unspecified ICD-9: 281.1 ICD-10: D51.9 05/21/2018 Active Candidal stomatitis ICD- 9: 112.0 ICD-10: B37.0 04/21/2018 Active Essential (primary) hypertension ICD-9: 401.1 ICD-10: I10 01/14/2017 Active Other emphysema ICD-9: 492.8 ICD-10: J43.8 [...] (vit B-12) 1,000 mcg/mL injection solution RxNorm: 883550 Milliliter(s) Inj 05/21/2018 05/21/2018 Inactive Vitamin B-12 1,000 mcg/mL injection solution RxNorm: 866681 1 Milliliter(s) Inj Q2 weeks x2 months and then monthly injections 05/21/2018 No Stop Date Active fluticasone 50 mcg/actuation nasal spray,suspension RxNorm: 2941639 1 [place] NASAL BID 05/19/2018 05/13/2019 Active fluticasone 50 mcg/actuation nasal spray,suspension RxNorm: 8760305 1 [place] NASAL BID 05/18/2018 05/18/2018 Inactive fluticasone 50 mcg/actuation nasal spray,suspension RxNorm: 8778408 1 [place] NASAL BID 05/15/2018 05/17/2018 Inactive fluticasone 50 mcg/actuation nasal spray,suspension RxNorm: 2864286 1 [place] NASAL BID 05/15/2018 05/14/2018 Inactive nystatin 100,000 unit/mL oral suspension RxNorm: 708981 5 Millil[place](s) PO QID 04/21/2018 04/30/2018 Inactive Breo Ellipta 100 mcg-25 mcg/dose powder for inhalation RxNorm: 9806209 1 INH daily 04/09/2018 04/03/2019 Active please call patient with jaramillo before sending prednisone 20 mg tablet RxNorm: 672037 1 Tablet(s) PO BID 04/09/2018 04/13/2018 Inactive start tomorrow Kenalog 40 mg/mL suspension for injection RxNorm: 7222145 1.5 Milliliter(s) Inj 04/09/2018 04/09/2018 Inactive Breo Ellipta 100 mcg-25 mcg/dose powder for inhalation RxNorm: 1571628 1 INH daily 04/09/2018 04/08/2018 Inactive alprazolam 1 mg tablet RxNorm: 470829 1 Tablet(s) PO TID 03/13/2018 12/07/2018 Active losartan 100 mg tablet RxNorm: 476764 TAKE 1 TABLET EVERY EVENING 03/02/2018 02/13/2021 Active Ventolin HFA 90 mcg/actuation aerosol inhaler RxNorm: 830356 2 INH Q4-6H as needed 12/29/2017 02/26/2018 Inactive Ventolin HFA 90 mcg/actuation aerosol inhaler RxNorm: 833250 2 INH Q4-6H as needed 12/29/2017 12/28/2017 Inactive Diflucan 150 mg tablet RxNorm: 572057 1 Tablet(s) PO daily 11/03/2017 11/05/2017 Inactive please call pt to let herknow when to pick- up the med Keflex 500 mg capsule RxNorm: 416574 1 Capsule(s) PO TID 10/23/2017 10/29/2017 Inactive Kenalog 40 mg/mL suspension for injection RxNorm: 9197982 1 Milliliter(s) Inj 10/16/2017 10/16/2017 Inactive ibuprofen 800 mg tablet RxNorm: 848650 TAKE 1 TABLET THREE TIMES DAILY 10/15/2017 01/07/2019 Active Lexapro 10 mg tablet RxNorm: 573291 TAKE 1 TABLET EVERY DAY 10/15/2017 10/09/2018 Active hydrocodone 5 mg-acetaminophen 325 mg tablet RxNorm: 224550 1 Tablet(s) PO QID as needed 09/03/2017 No Stop Date Active omeprazole 20 mg capsule,delayed release RxNorm: 835267 1 Capsule(s) PO BID 09/02/2017 08/27/2018 Active alprazolam 1 mg tablet RxNorm: 401087 1 Tablet(s) PO TID 09/02/2017 03/12/2018 Inactive metoprolol tartrate 50 mg tablet RxNorm: 763284 1/2 Tablet(s) PO BID 06/26/2017 06/20/2018 Active omeprazole 20 mg capsule,delayed release RxNorm: 957775 1 Capsule(s) PO BID 06/05/2017 09/01/2017 Inactive omeprazole 20 mg capsule,delayed release RxNorm: 046057 1 Capsule(s) PO BID 05/28/2017 06/04/2017 Inactive omeprazole 20 mg capsule,delayed release RxNorm: 292141 1 Capsule(s) PO QPM 05/27/2017 05/27/2017 Inactive Breo Ellipta 100 mcg-25 mcg/dose powder for inhalation RxNorm: 0022826 1 INH daily 05/05/2017 04/08/2018 Inactive alprazolam 1 mg tablet RxNorm: 298330 1 Tablet(s) PO TID 02/10/2017 08/07/2017 Inactive metoprolol tartrate 50 mg tablet RxNorm: 303277 1/2 Tablet(s) PO BID 02/10/2017 06/25/2017 Inactive losartan 100 mg tablet RxNorm: 583344 1 Tablet(s) PO QPM 02/10/2017 02/04/2018 Inactive losartan 50 mg tablet RxNorm: 367109 2 Tablet(s) PO QPM 01/23/2017 02/09/2017 Inactive Diflucan 150 mg tablet RxNorm: 146303 1 Tablet(s) PO daily 01/20/2017 01/22/2017 Inactive please call pt to let herknow when to pick- up the med Diflucan 150 mg tablet RxNorm: 500810 1 Tablet(s) PO daily 01/20/2017 01/19/2017 Inactive please call pt to let herknow when to pick- up the med losartan 50 mg tablet RxNorm: 480804 1 Tablet(s) PO QPM 01/14/2017 01/22/2017 Inactive Cipro 500 mg tablet RxNorm: 335120 1 Tablet(s) PO BID 01/08/2017 01/17/2017 Inactive Cipro 500 mg tablet RxNorm: 731331 1 Tablet(s) PO BID 01/08/2017 01/07/2017 Inactive Lexapro 10 mg tablet RxNorm: 667201 TAKE 1 TABLET EVERY DAY 12/20/2016 10/14/2017 Inactive metoprolol tartrate 50 mg tablet RxNorm: 642887 1 Tablet(s) PO in the morning and 1.5 pill at night 12/11/2016 01/13/2017 Inactive spironolactone 25 mg tablet RxNorm: 437291 TAKE 1 TABLET EVERY DAY 11/04/2016 07/31/2017 Inactive metoprolol tartrate 50 mg tablet RxNorm: 848412 TAKE 1 TABLET TWICE DAILY 10/29/2016 12/10/2016 Inactive ibuprofen 800 mg tablet RxNorm: 856452 TAKE 1 TABLET THREE TIMES DAILY 10/21/2016 10/14/2017 Inactive Astepro 0.15 % (205.5 mcg) nasal spray RxNorm: 6781845 1 [place] NASAL BID 10/15/2016 10/09/2017 Inactive Astepro 0.15 % (205.5 mcg) nasal spray RxNorm: 0593883 1 [place] NASAL BID 10/15/2016 10/14/2016 Inactive Astepro 0.15 % (205.5 mcg) nasal spray RxNorm: 5020626 1 [place] NASAL BID 10/15/2016 10/14/2016 Inactive omeprazole 20 mg capsule,delayed release RxNorm: 097332 1 Capsule(s) PO QPM 10/15/2016 05/26/2017 Inactive omeprazole 20 mg capsule,delayed release RxNorm: 942907 1 Capsule(s) QPM 10/15/2016 10/14/2016 Inactive omeprazole 20 mg capsule,delayed release RxNorm: 920591 TAKE 1 CAPSULE TWICE DAILY 09/02/2016 10/14/2016 Inactive Lexapro 10 mg tablet RxNorm: 327644 TAKE 1 TABLET EVERY DAY 08/21/2016 12/19/2016 Inactive calcitonin (salmon) 200 unit/actuation nasal spray RxNorm: 523860 1 [place] NASAL daily ONE SPRAY PER ONE NOSTRIL DAILY- ALTERNATE NOSTRILS DAILY 05/31/2016 05/30/2016 Inactive She will do this for 3 months- If she wants to do a 3 month supply at one time she can without refill calcitonin (salmon) 200 unit/actuation nasal spray RxNorm: 978571 1 [place] NASAL daily ONE SPRAY PER ONE NOSTRIL DAILY- ALTERNATE NOSTRILS DAILY 05/31/2016 07/30/2016 Inactive x3 months- no refills Forteo 20 mcg/dose (600 mcg/2.4 mL) subcutaneous pen injector RxNorm: 7482833 1 injection SQ daily 05/22/2016 05/30/2016 Inactive call pt with jaramillo first Forteo 20 mcg/dose (600 mcg/2.4 mL) subcutaneous pen injector RxNorm: 0094624 1 injection SQ daily 05/22/2016 05/21/2016 Inactive Prolia 60 mg/mL subcutaneous syringe RxNorm: 078525 1 Milliliter(s) SQ every 6 months 05/13/2016 No Stop Date Active Please check jaramillo through insurance and let me know- Thanks! Mary Ellen alprazolam 1 mg tablet RxNorm: 806227 1 Tablet(s) PO TID 05/08/2016 11/01/2016 Inactive Lexapro 10 mg tablet RxNorm: 984788 TAKE 1 TABLET EVERY DAY 04/22/2016 08/20/2016 Inactive spironolactone 25 mg tablet RxNorm: 102441 TAKE 1 TABLET EVERY DAY 04/22/2016 11/03/2016 Inactive Diflucan 150 mg tablet RxNorm: 898011 1 Tablet(s) PO daily 03/20/2016 04/14/2016 Inactive Diflucan 150 mg tablet RxNorm: 039656 1 Tablet(s) PO daily 03/20/2016 03/19/2016 Inactive Augmentin 500 mg-125 mg tablet RxNorm: 093354 1 Tablet(s) PO TID 03/14/2016 03/23/2016 Inactive omeprazole 20 mg capsule,delayed release RxNorm: 738410 1 Tablet(s) PO BID 03/06/2016 09/01/2016 Inactive [SAVINGS FOR NON-COVERED DRUGS -- BIN:470503, PCN: ASPROD1, Group: XXXXX, ID# XXXXXXX, Questions: . THIS IS NOT INSURANCE.] amlodipine 5 mg tablet RxNorm: 967497 TAKE 1 TABLET EVERY DAY 03/01/2016 04/22/2016 Inactive omeprazole 20 mg tablet,delayed release RxNorm: 272909 1 Tablet(s) PO BID 02/27/2016 03/05/2016 Inactive [SAVINGS FOR NON-COVERED DRUGS -- BIN:771804, PCN: ASPROD1, Group: XXXXX, ID# XXXXXXX, Questions: . THIS IS NOT INSURANCE.] spironolactone 25 mg tablet RxNorm: 832271 TAKE 1 TABLET EVERY DAY 12/21/2015 04/21/2016 Inactive Lexapro 10 mg tablet RxNorm: 157883 1 Tablet(s) PO daily 12/19/2015 01/01/2016 Inactive Lexapro 10 mg tablet RxNorm: 580114 1 Tablet(s) PO daily 12/19/2015 02/09/2017 Inactive Lexapro 10 mg tablet RxNorm: 045119 1 Tablet(s) PO daily 12/19/2015 12/18/2015 Inactive alprazolam 1 mg tablet RxNorm: 683001 1 Tablet(s) PO TID 12/01/2015 02/28/2016 Inactive ibuprofen 800 mg tablet RxNorm: 729239 1 Tablet(s) PO TID 10/26/2015 10/20/2016 Inactive alprazolam 1 mg tablet RxNorm: 705956 1 Tablet(s) PO TID 08/23/2015 11/19/2015 Inactive spironolactone 25 mg tablet RxNorm: 997004 1 Tablet(s) PO daily 08/21/2015 12/20/2015 Inactive metoprolol tartrate 50 mg tablet RxNorm: 618611 1 Tablet(s) PO BID 08/10/2015 08/03/2016 Inactive [SAVINGS FOR NON-COVERED DRUGS -- BIN:859690, PCN: ASPROD1, Group: XXXXX, ID# XXXXXXX, Questions: . THIS IS NOT INSURANCE.] omeprazole 20 mg tablet,delayed release RxNorm: 152035 1 Tablet(s) PO BID 08/07/2015 02/02/2016 Inactive [SAVINGS FOR NON-COVERED DRUGS -- BIN:535110, PCN: ASPROD1, Group: XXXXX, ID# XXXXXXX, Questions: . THIS IS NOT INSURANCE.] Keflex 500 mg capsule RxNorm: 607690 1 Capsule(s) PO TID 07/10/2015 07/16/2015 Inactive alprazolam 1 mg tablet RxNorm: 574140 1 Tablet(s) PO TID 06/02/2015 08/22/2015 Inactive alprazolam 1 mg tablet RxNorm: 371847 1 Tablet(s) PO TID 03/29/2015 06/01/2015 Inactive amlodipine 5 mg tablet RxNorm: 215961 1 Tablet(s) PO daily 03/06/2015 02/29/2016 Inactive Nasonex 50 mcg/actuation [place] RxNorm: 065692 1 [place] NASAL daily 03/03/2015 03/02/2015 Inactive Keflex 500 mg capsule RxNorm: 452798 1 Capsule(s) PO TID 03/03/2015 03/02/2015 Inactive Nasonex 50 mcg/actuation [place] RxNorm: 251813 1 [place] NASAL daily 03/03/2015 05/01/2015 Inactive Keflex 500 mg capsule RxNorm: 064244 1 Capsule(s) PO TID 03/03/2015 03/05/2015 Inactive Carafate 1 gram tablet RxNorm: 248634 TAKE 1 TABLET FOUR TIMES DAILY 30 MINUTES BEFORE MEALS AND AT BEDTIME 02/28/2015 12/18/2015 Inactive Kenalog 40 mg/mL suspension for injection RxNorm: 1535859 Milliliter(s) Inj 02/07/2015 02/07/2015 Inactive [SAVINGS FOR NON-COVERED DRUGS -- BIN:361039, PCN: ASPROD1, Group: XXXXX, ID# XXXXXXX, Questions: . THIS IS NOT INSURANCE.] metoprolol tartrate 50 mg tablet RxNorm: 676622 1 Tablet(s) PO BID 02/07/2015 08/09/2015 Inactive [SAVINGS FOR NON-COVERED DRUGS -- BIN:495684, PCN: ASPROD1, Group: XXXXX, ID# XXXXXXX, Questions: . THIS IS NOT INSURANCE.] Carafate 1 gram tablet RxNorm: 139095 1 Tablet(s) PO QID 02/07/2015 02/27/2015 Inactive 30 min before meals and at bedtime omeprazole 20 mg tablet,delayed release RxNorm: 975871 1 Tablet(s) PO BID 02/07/2015 08/05/2015 Inactive [SAVINGS FOR NON-COVERED DRUGS -- BIN:862466, PCN: ASPROD1, Group: XXXXX, ID# XXXXXXX, Questions: . THIS IS NOT INSURANCE.] Vitamin D3 2,000 unit tablet RxNorm: 819031 1 Tablet(s) PO daily No Start Date Active aspirin 81 mg tablet RxNorm: 235835 1 Tablet(s) PO daily No Start Date Active loratadine 10 mg tablet RxNorm: 830800 1 Tablet(s) PO daily No Start Date Active amlodipine 2.5 mg tablet RxNorm: 859055 1 Tablet(s) PO daily No Start Date 03/05/2015 Inactive spironolactone 25 mg tablet RxNorm: 680877 1 Tablet(s) PO daily No Start Date 08/20/2015 Inactive cetirizine 10 mg tablet RxNorm: 6074486 1 Tablet(s) PO daily No Start Date 12/18/2015 Inactive metoprolol tartrate 50 mg tablet RxNorm: 268538 1 Tablet(s) PO daily No Start Date 02/06/2015 Inactive ipratropium bromide 0.06 % nasal spray RxNorm: 854288 nasal No Start Date 12/18/2015 Inactive alprazolam 1 mg tablet RxNorm: 395976 1 Tablet(s) PO TID No Start Date 03/28/2015 Inactive Prolia 60 mg/mL subcutaneous syringe RxNorm: 486987 1 Milliliter(s) SQ every 6 months No Start Date 05/12/2016 Inactive Please check jaramillo through insurance and let me know- Thanks! Mary Ellen ibuprofen 800 mg tablet RxNorm: 124024 1 Tablet(s) PO TID No Start Date 10/25/2015 Inactive Protonix 40 mg tablet,delayed release RxNorm: 351344 1 Tablet(s) PO daily No Start Date 03/05/2015 Inactive Vitamin B-12 1,000 mcg/mL injection solution RxNorm: 529506 1 Milliliter(s) Inj Q2 weeks x2 months and then monthly injections No Start Date 05/20/2018 Inactive Medication Administered Medication Codes Instructions Start Date Status cyanocobalamin (vit B-12) 1,000 mcg/mL injection solution RxNorm: 119334 Milliliter 05/21/2018 Active Kenalog 40 mg/mL suspension for injection RxNorm: 6880995 1.5Milliliter 04/09/2018 No longer Active Kenalog 40 mg/mL suspension for injection RxNorm: 5819588 1Milliliter 10/16/2017 No longer Active Kenalog 40 mg/mL suspension for injection RxNorm: 8631892 Milliliter 02/07/2015 No longer Active Immunizations Vaccine Codes Date Status Pneumococcal (Adult) CVX: 33 08/28/2016 completed Assessments Condition Codes Effective Dates Other vitamin B12 deficiency anemias ICD-10: D51.8 ICD-9: 281.1 05/21/2018 Candidal stomatitis ICD-10: B37.0 ICD-9: 112.0 04/21/2018 Other emphysema ICD-10: J43.8 ICD-9: 492.8 04/21/2018 Essential (primary) hypertension ICD-10: I10 ICD-9: 401.1 04/21/2018 Chronic obstructive pulmonary disease with (acute) [...] Reason For Visit Effective Dates Notes hypertension 04/21/2018 headache 04/09/2018 hypertension 01/19/2018 Annual [...] Item Item Code Result Date Comp Metabolic Xci923 NA 138 mEq/L 09/03/2017 Comp Metabolic Nku808 K 3.9 mEq/L 09/03/2017 Comp Metabolic Fgi532 CL 102 mEq/L 09/03/2017 Comp Metabolic Oql551 CO2 32.0 mEq/L 09/03/2017 Comp Metabolic Qvx747 ANION GAP 8 09/03/2017 Comp Metabolic Rds744 GLUCOSE 89 mg/dL 09/03/2017 Comp Metabolic Ubs947 Creat 0.6 mg/dL 09/03/2017 Comp Metabolic Hln949 eGFR 103 ml/min/1.73m2 09/03/2017 Comp Metabolic Yva295 BUN 10 mg/dL 09/03/2017 Comp Metabolic Ucq491 B/C Ratio 16.7 Ratio 09/03/2017 Comp Metabolic Lns131 CALCIUM 8.9 mg/dL 09/03/2017 Comp Metabolic Kyx708 ALK PHOS 141 U/L 09/03/2017 Comp Metabolic Xcy591 AST(SGOT) 12 U/L 09/03/2017 Comp Metabolic Tai220 ALT(SGPT) 7 U/L 09/03/2017 Comp Metabolic Guz842 BILI T 0.6 mg/dL 09/03/2017 Comp Metabolic Tfs264 ALBUMIN 3.6 g/dL 09/03/2017 Comp Metabolic Yiq230 TPRO 6.6 g/dL 09/03/2017 Comp Metabolic Rug315 GLOB 3.0 g/dL 09/03/2017 Comp Metabolic Zkb191 A/G Ratio 1.2 Ratio 09/03/2017 Comp Metabolic Xgq280 Osmo 274 mOsmo 09/03/2017 Hepatic Mvl037 ALBUMIN 3.7 g/dL 08/11/2017 Hepatic Des406 TPRO 7.0 g/dL 08/11/2017 Hepatic Uyg211 GLOB 3.3 g/dL 08/11/2017 Hepatic Sbh372 A/G Ratio 1.1 Ratio 08/11/2017 Hepatic Xwb560 ALK PHOS 85 U/L 08/11/2017 Hepatic Egq201 ALT(SGPT) 11 U/L 08/11/2017 Hepatic Zrk998 AST(SGOT) 16 U/L 08/11/2017 Hepatic Uol157 BILI T 0.6 mg/dL 08/11/2017 Hepatic Hzz042 BILI D 0.1 mg/dL 08/11/2017 Hepatic Gfs781 BILI I 0.5 mg/dL 08/11/2017 Hepatic Xog468 ALBUMIN 3.1 g/dL 07/18/2017 Hepatic Swv248 TPRO 5.9 g/dL 07/18/2017 Hepatic Eso921 GLOB 2.8 g/dL 07/18/2017 Hepatic Nxj831 A/G Ratio 1.1 Ratio 07/18/2017 Hepatic Wdv917 ALK PHOS 123 U/L 07/18/2017 Hepatic Lpx686 ALT(SGPT) 210 U/L 07/18/2017 Hepatic Qhf765 AST(SGOT) 71 U/L 07/18/2017 Hepatic Agm196 BILI T 1.1 mg/dL 07/18/2017 Hepatic Qia522 BILI D 0.4 mg/dL 07/18/2017 Hepatic Nxt257 BILI I 0.7 mg/dL 07/18/2017 Cbc With [...] 32.4 pg 02/25/2017 Cbc With Differential Ord2 Jerome% 7.6 % 02/25/2017 Cbc With Differential Ord2 [...] 1.22 K/ul 02/25/2017 Cbc With Differential Ord2 Jerome ABS# 0.4 K/ul 02/25/2017 Cbc With Differential [...] 32.3 pg 01/02/2017 Cbc With Differential Ord2 [place]% 7.8 % 01/02/2017 Cbc With Differential Ord2 [...] 0.90 K/ul 01/02/2017 Cbc With Differential Ord2 [place] ABS# 0.4 K/ul 01/02/2017 Cbc With Differential Ord2 Eos ABS# 0.3 K/ul 01/02/2017 Cbc With Differential Ord2 Baso ABS# 0.0 K/ul 01/02/2017 Lipid Ord30 CHOL 139 mg/dL 12/13/2016 Lipid Ord30 HDL 48.0 mg/dl 12/13/2016 Lipid Ord30 TRIG 84 mg/dL 12/13/2016 Lipid Ord30 LDL 74 mg/dL 12/13/2016 Lipid Ord30 C/HDL 2.9 Ratio 12/13/2016 Comp Metabolic Fwc239 NA 137 mEq/L 12/13/2016 Comp Metabolic Gmc528 K 4.8 mEq/L 12/13/2016 Comp Metabolic Whz681 CL 101 mEq/L 12/13/2016 Comp Metabolic Efn256 CO2 32.0 mEq/L 12/13/2016 Comp Metabolic Nzb380 ANION GAP 9 12/13/2016 Comp Metabolic Ezq745 GLUCOSE 95 mg/dL 12/13/2016 Comp Metabolic Nxz806 Creat 0.8 mg/dL 12/13/2016 Comp Metabolic Pwg480 eGFR 79 ml/min/1.73m2 12/13/2016 Comp Metabolic Tgo650 BUN 15 mg/dL 12/13/2016 Comp Metabolic Riv889 B/C Ratio 19.7 Ratio 12/13/2016 Comp Metabolic Ron864 CALCIUM 9.3 mg/dL 12/13/2016 Comp Metabolic Guq812 ALK PHOS 63 U/L 12/13/2016 Comp Metabolic Kfj560 AST(SGOT) 15 U/L 12/13/2016 Comp Metabolic Osj684 ALT(SGPT) 10 U/L 12/13/2016 Comp Metabolic Njd480 BILI T 0.7 mg/dL 12/13/2016 Comp Metabolic Vbv090 ALBUMIN 3.7 g/dL 12/13/2016 Comp Metabolic Mrb945 TPRO 6.8 g/dL 12/13/2016 Comp Metabolic Feu489 GLOB 3.2 g/dL 12/13/2016 Comp Metabolic Eee964 A/G Ratio 1.2 Ratio 12/13/2016 Comp Metabolic Rys406 Osmo 274 mOsmo 12/13/2016 Cbc With Differential [...] 31.9 pg 12/13/2016 Cbc With Differential Ord2 [place]% 9.9 % 12/13/2016 Cbc With Differential Ord2 [...] 1.17 K/ul 12/13/2016 Cbc With Differential Ord2 [place] ABS# 0.4 K/ul 12/13/2016 Cbc With Differential [...] 32.1 pg 12/19/2015 Cbc With Differential Ord2 [place]% 5.9 % 12/19/2015 Cbc With Differential Ord2 [...] 1.53 K/ul 12/19/2015 Cbc With Differential Ord2 [place] ABS# 0.3 K/ul 12/19/2015 Cbc With Differential [...] Ord30 C/HDL 2.8 Ratio 12/19/2015 Comp Metabolic Ozw397 NA 135 mEq/L 12/19/2015 Comp Metabolic Zbp701 K 4.1 mEq/L 12/19/2015 Comp Metabolic Eqj050 CL 99 mEq/L 12/19/2015 Comp Metabolic Auo927 CO2 27.0 mEq/L 12/19/2015 Comp Metabolic Dmz345 ANION GAP 13 12/19/2015 Comp Metabolic Vwf640 GLUCOSE 83 mg/dL 12/19/2015 Comp Metabolic Pkg084 Creat 0.7 mg/dL 12/19/2015 Comp Metabolic Mnk314 eGFR 88 ml/min/1.73m2 12/19/2015 Comp Metabolic Cjc310 BUN 12 mg/dL 12/19/2015 Comp Metabolic Pai846 B/C Ratio 17.4 Ratio 12/19/2015 Comp Metabolic Wop770 CALCIUM 9.0 mg/dL 12/19/2015 Comp Metabolic Zpl887 ALK PHOS 68 U/L 12/19/2015 Comp Metabolic Ehy054 AST(SGOT) 16 U/L 12/19/2015 Comp Metabolic Hov608 ALT(SGPT) 13 U/L 12/19/2015 Comp Metabolic Klc123 BILI T 0.7 mg/dL 12/19/2015 Comp Metabolic Mko784 ALBUMIN 4.0 g/dL 12/19/2015 Comp Metabolic Paw281 TPRO 7.0 g/dL 12/19/2015 Comp Metabolic Lbz261 GLOB 3.0 g/dL 12/19/2015 Comp Metabolic Ozs078 A/G Ratio 1.3 Ratio 12/19/2015 Comp Metabolic Jjl912 Osmo 269 mOsmo 12/19/2015 Review of Systems System Result Effective Dates Constitutional No recent illness 04/21/2018 Constitutional No [...] exam 10/15/2016 None Full Exam - General 1995 Ears/Nose/Throat otoscopic exam Tympanic membrane: air-fluid level [...] Procedure Codes Date THER/PROPH/DIAG INJ SC/IM CPT-4: 51958 05/21/2018 VITAMIN B12 INJECTION CPT- 4: J3420 05/21/2018 TRIAMCINOLONE ACET INJ NOS CPT-4: J3301 04/09/2018 PPPS, SUBSEQ VISIT CPT- 4: G0439 12/18/2017 TRIAMCINOLONE ACET INJ NOS CPT-4: J3301 10/16/2017 DRAIN/INJECT JOINT/BURSA CPT-4: 12030 10/16/2017 PRESCRIP TRANSMIT VIA ERX SY CPT-4: G8553 05/05/2017 PRESCRIP TRANSMIT VIA ERX SY CPT-4: G8553 01/14/2017 PPPS, SUBSEQ VISIT CPT- 4: G0439 12/12/2016 PRESCRIP TRANSMIT VIA ERX SY CPT-4: G8553 10/15/2016 ADMIN PNEUMOCOCCAL VACCINE SNOMED CT: 99074911 CPT-4: G0009 08/28/2016 Pneumococcal Polysaccharide Vaccine, 23-Valent, Ad CPT-4: 37041 08/28/2016 PRESCRIP TRANSMIT VIA ERX SY CPT-4: G8553 03/14/2016 PRESCRIP TRANSMIT VIA ERX SY CPT-4: G8553 12/19/2015 THER/PROPH/DIAG INJ SC/IM CPT-4: 00932 02/07/2015 TRIAMCINOLONE ACET INJ NOS CPT-4: J3301 02/07/2015 Vital Signs Date Vital 04/21/2018 Blood Pressure 1: 108/70 Code: 8480-6 BMI: 24.4 Code: 32713-2 Heart Rate 1: 62 bpm Height: 5'1" SpO2: 94% Weight: 129 lbs 04/09/2018 Blood Pressure 1: 138/86 Code: 8480-6 BMI: 25.5 Code: 28211-0 Heart Rate 1: 64 bpm Height: 5'1" SpO2: 99% Temperature: 36.4 (C) / 97.5 (F) Weight: 135 lbs 01/19/2018 Blood Pressure 1: 128/76 Code: 8480-6 BMI: 25.9 Code: 33037-7 Heart Rate 1: 65 bpm Height: 5'1" SpO2: 98% Weight: 137 lbs 12/18/2017 Blood Pressure 1: 144/82 Code: 8480-6 BMI: 26.1 Code: 95309-0 Heart Rate 1: 57 bpm Height: 5'1" SpO2: 97% Waist Measure (cm): 74 cm Weight: 138 lbs 10/16/2017 Blood Pressure 1: 142/88 Code: 8480-6 BMI: 25.5 Code: 71052-1 Heart Rate 1: 63 bpm Height: 5'1" SpO2: 97% Weight: 135 lbs 09/03/2017 Blood Pressure 1: 144/90 Code: 8480-6 BMI: 26.3 Code: 66930-1 Heart Rate 1: 91 bpm Height: 5'1" SpO2: 96% Weight: 139 lbs 07/31/2017 Blood Pressure 1: 136/90 Code: 8480-6 BMI: 26.3 Code: 87756-8 Height: 5'1" Weight: 139 lbs 07/18/2017 Blood Pressure 1: 136/84 Code: 8480-6 06/16/2017 Blood Pressure 1: 136/84 Code: 8480-6 BMI: 26.5 Code: 84638-2 Heart Rate 1: 72 bpm Height: 5'1" SpO2: 97% Weight: 140 lbs 05/28/2017 Blood Pressure 1: 138/78 Code: 8480-6 BMI: 26.1 Code: 50690-0 Heart Rate 1: 70 bpm Height: 5'1" SpO2: 98% Weight: 138 lbs 05/05/2017 Blood Pressure 1: 140/86 Code: 8480-6 BMI: 25.3 Code: 15754-5 Heart Rate 1: 66 bpm Height: 5'1" SpO2: 99% Weight: 134 lbs 03/13/2017 Blood Pressure 1: 126/74 Code: 8480-6 BMI: 25.3 Code: 66762-3 Heart Rate 1: 73 bpm Height: 5'1" SpO2: 98% Weight: 134 lbs 02/10/2017 Blood Pressure 1: 148/88 Code: 8480-6 BMI: 25.9 Code: 62051-6 Heart Rate 1: 84 bpm Height: 5'1" SpO2: 97% Weight: 137 lbs 01/14/2017 Blood Pressure 1: 134/86 Code: 8480-6 BMI: 25.7 Code: 99200-6 Heart Rate 1: 83 bpm Height: 5'1" SpO2: 95% Weight: 136 lbs 01/07/2017 Blood Pressure 1: 136/88 Code: 8480-6 BMI: 25.1 Code: 73404-8 Heart Rate 1: 86 bpm Height: 5'1" SpO2: 94% Weight: 133 lbs 01/02/2017 Blood Pressure 1: 122/68 Code: 8480-6 Blood Pressure 2: 116/78 Code: 8480-6 01/01/2017 Blood Pressure 1: 90/52 Code: 8480-6 BMI: 25.1 Code: 63283- 5 Heart Rate 1: 86 bpm Height: 5'1" SpO2: 99% Weight: 133 lbs 12/20/2016 Blood Pressure 1: 120/76 Code: 8480-6 12/12/2016 Blood Pressure 1: 130/72 Code: 8480-6 BMI: 24.8 Code: 42430-8 Heart Rate 1: 62 bpm Height: 5'1" SpO2: 98% Waist Measure (cm): 79 cm Weight: 131 lbs 12/11/2016 Blood Pressure 1: 132/70 Code: 8480-6 BMI: 24.8 Code: 37898-9 Heart Rate 1: 60 bpm Height: 5'1" Weight: 131 lbs 10/15/2016 Blood Pressure 1: 108/66 Code: 8480-6 BMI: 24.8 Code: 50264-4 Heart Rate 1: 60 bpm Height: 5'1" Weight: 131 lbs 07/17/2016 Blood Pressure 1: 128/82 Code: 8480-6 BMI: 25.3 Code: 53723-6 Heart Rate 1: 50 bpm Height: 5'2" Weight: 136 lbs 05/15/2016 Blood Pressure 1: 108/70 Code: 8480-6 BMI: 23.4 Code: 21597-4 Heart Rate 1: 54 bpm Height: 5'2" SpO2: 96% Weight: 126 lbs 04/23/2016 Blood Pressure 1: 112/60 Code: 8480-6 BMI: 23.6 Code: 87094-7 Heart Rate 1: 92 bpm Height: 5'2" SpO2: 95% Weight: 127 lbs 03/14/2016 Blood Pressure 1: 118/74 Code: 8480-6 BMI: 24.0 Code: 47021-0 Heart Rate 1: 51 bpm Height: 5'2" SpO2: 94% Temperature: 36.8 (C) / 98.3 (F) Weight: 129 lbs 02/19/2016 Blood Pressure 1: 110/62 Code: 8480-6 BMI: 23.4 Code: 69319-8 Heart Rate 1: 74 bpm Height: 5'2" SpO2: 97% Weight: 126 lbs 12/19/2015 Blood Pressure 1: 108/74 Code: 8480-6 BMI: 23.6 Code: 61727-3 Heart Rate 1: 52 bpm Height: 5'2" Weight: 127 lbs 03/06/2015 Blood Pressure 1: 136/88 Code: 8480-6 Heart Rate 1: 64 bpm Weight: 129 lbs 02/07/2015 Blood Pressure 1: 142/90 Code: 8480-6 BMI: 24.5 Code: 13967-7 Heart Rate 1: 82 bpm Height: 5'2" Weight: 132 lbs Functional Status No Functional Status data History of Present Illness Symptom Name Status Result Effective Date Notes hypertension Quality chronic 04/21/2018 None hypertension Quality [...] data Encounters Encounter Performer Location Codes Date ([id number]) 56345 EST. PATIENT, LEVEL IV Diagnosis: Essential (primary) hypertension[ICD10: I10] Diagnosis: Other emphysema[ICD10: J43.8] Diagnosis: Candidal stomatitis[ICD10: B37.0] Kim Burden MD, [facility] CPT- 4: 05365 04/21/2018 ([id number]) 62721 EST. PATIENT, LEVEL III Diagnosis: Chronic obstructive pulmonary disease with (acute) exacerbation[ICD10: J44.1] Mallorie Burden MD, [facility] CPT-4: 69054 04/09/2018 ([id number]) 88828 EST. PATIENT, LEVEL IV Diagnosis: Essential (primary) hypertension[ICD10: I10] Diagnosis: Other emphysema[ICD10: J43.8] Kim Burden MD, [facility] CPT-4: 73281 01/19/2018 ([id number]) 84364 EST. PATIENT, LEVEL IV Diagnosis: Essential (primary) hypertension[ICD10: I10] Diagnosis: Other emphysema[ICD10: J43.8] Diagnosis: Dependence on supplemental oxygen[ICD10: Z99.81] Diagnosis: Hypoxemia[ICD10: R09.02] Diagnosis: Pain in left knee[ICD10: M25.562] Diagnosis: Effusion, left knee[ICD10: M25.462] Kim Burden MD, [facility] CPT- 4: 14634 10/16/2017 35594 EST. PATIENT, LEVEL III Diagnosis: Pain in thoracic spine[ICD10: M54.6] Pebbles Burden MD, [facility] CPT- 4: 80503 09/03/2017 ([id number]) 66971 EST. PATIENT, LEVEL III Diagnosis: Essential (primary) hypertension[ICD10: I10] Diagnosis: Other emphysema[ICD10: J43.8] Kim Burden MD, [facility] CPT-4: 47508 07/31/2017 ([id number]) Miscellaneous no charge Diagnosis: Essential (primary) hypertension[ICD10: I10] Mallorie Burden MD, [facility] CPT-4: 49830 07/18/2017 ([id number]) 65707 EST. PATIENT, LEVEL III Diagnosis: Pain in left knee[ICD10: M25.562] Diagnosis: Effusion, left knee[ICD10: M25.462] Mallorie Burden MD, [facility] CPT-4: 67189 06/16/2017 ([id number]) 43780 EST. PATIENT, LEVEL III Diagnosis: Essential (primary) hypertension[ICD10: I10] Diagnosis: Unsteadiness on feet[ICD10: R26.81] Kim Burden MD, [facility] CPT- 4: 59311 05/28/2017 ([id number]) 08874 EST. PATIENT, LEVEL IV Diagnosis: Essential (primary) hypertension[ICD10: I10] Diagnosis: Chronic obstructive pulmonary disease with acute lower respiratory infection[ICD10: J44.0] Kim Burden MD, [facility] CPT-4: 44454 05/05/2017 ([id number]) 42770 EST. PATIENT, LEVEL IV Diagnosis: Essential (primary) hypertension[ICD10: I10] Diagnosis: Major depressive disorder, recurrent, mild[ICD10: F33.0] Kim Burden MD, [facility] CPT-4: 33390 03/13/2017 ([id number]) 56816 EST. PATIENT, LEVEL IV Diagnosis: Essential (primary) hypertension[ICD10: I10] Diagnosis: Gastro-esophageal reflux disease without esophagitis[ICD10: K21.9] Diagnosis: Chronic obstructive pulmonary disease, unspecified[ICD10: J44.9] Kim Burden MD [facility] CPT-4: 80830 02/10/2017 ([id number]) 03451 EST. PATIENT, LEVEL IV Diagnosis: Essential (primary) hypertension[ICD10: I10] Diagnosis: Gastro-esophageal reflux disease without esophagitis[ICD10: K21.9] Diagnosis: Chronic obstructive pulmonary disease with acute lower respiratory infection[ICD10: J44.0] Kim Burden MD [facility] CPT-4: 65034 01/14/2017 90091 EST. PATIENT, LEVEL IV Diagnosis: Other fatigue[ICD10: R53.83] Diagnosis: Other malaise[ICD10: R53.81] Diagnosis: Headache[ICD10: R51] Diagnosis: Palpitations[ICD10: R00.2] Diagnosis: Dehydration[ICD10: E86.0] Pebbles Burden MD, [facility] CPT-4: 54014 01/07/2017 ([id number]) Miscellaneous no charge Diagnosis: Essential (primary) hypertension[ICD10: I10] Pebbles Burden MD, [facility] CPT-4: 21968 01/02/2017 86092 EST. PATIENT, LEVEL IV Diagnosis: Chronic obstructive pulmonary disease, unspecified[ICD10: J44.9] Diagnosis: Essential (primary) hypertension[ICD10: I10] Diagnosis: Other fatigue[ICD10: R53.83] Pebbles Burden MD, [facility] CPT-4: 62908 01/01/2017 ([id number]) Miscellaneous no charge Diagnosis: Essential (primary) hypertension[ICD10: I10] Pebbles Burden MD, [facility] CPT-4: 49999 12/20/2016 ([id number]) 56844 EST. PATIENT, LEVEL IV Diagnosis: Essential (primary) hypertension[ICD10: I10] Diagnosis: Major depressive disorder, recurrent, mild[ICD10: F33.0] Diagnosis: Headache[ICD10: R51] Diagnosis: Other fatigue[ICD10: R53.83] Kim Burden MD, [facility] CPT-4: 12256 12/11/2016 ([id number]) 71894 EST. PATIENT, LEVEL IV Diagnosis: Essential (primary) hypertension[ICD10: I10] Diagnosis: Other allergic rhinitis[ICD10: J30.89] Diagnosis: Gastro-esophageal reflux disease without esophagitis[ICD10: K21.9] Kim Burden MD [facility] CPT-4: 33004 10/15/2016 ([id number]) 02507 EST. PATIENT, LEVEL III Diagnosis: Essential (primary) hypertension[ICD10: I10] Diagnosis: Major depressive disorder, recurrent, mild[ICD10: F33.0] Kim Burden MD [facility] CPT-4: 17403 07/17/2016 ([id number]) 64707 EST. PATIENT, LEVEL III Diagnosis: Pain in left hip[ICD10: M25.552] Diagnosis: Acute laryngopharyngitis[ICD10: J06.0] Kim Burden MD [facility] CPT-4: 14303 05/15/2016 ([id number]) 08503 EST. PATIENT, LEVEL III Diagnosis: Fracture of unspecified parts of lumbosacral spine and pelvis, initial encounter for closed fracture[ICD10: S32.9XXA] Diagnosis: Essential (primary) hypertension[ICD10: I10] Kim Burden MD [facility] CPT-4: 16459 04/23/2016 15001 EST. PATIENT, LEVEL IV Diagnosis: Acute laryngopharyngitis[ICD10: J06.0] Diagnosis: Other allergic rhinitis[ICD10: J30.89] Pebbles Burden MD [facility] CPT- 4: 20527 03/14/2016 37510 EST. PATIENT, LEVEL IV Diagnosis: Dysuria[ICD10: R30.0] Diagnosis: Left lower quadrant pain[ICD10: R10.32] Pebbles Burden MD [facility] CPT-4: 76549 02/19/2016 ([id number]) 48389 EST. PATIENT, LEVEL IV Diagnosis: Essential (primary) hypertension[ICD10: I10] Diagnosis: Gastro-esophageal reflux disease without esophagitis[ICD10: K21.9] Diagnosis: Major depressive disorder, recurrent, mild[ICD10: F33.0] [facility] CPT-4: 29103 12/19/2015 ([id number]) 42949 EST. PATIENT, LEVEL IV Diagnosis: ESSENTIAL HYPERTENSION[ICD9: 401.9] Diagnosis: ACUTE URI[ICD9: 465.9] [facility] CPT-4: 11761 03/06/2015 ([id number]) OFFICE VISIT, NEW - LEVEL 4 Diagnosis: ESOPHAGEAL REFLUX[ICD9: 530.81] Diagnosis: ESSENTIAL HYPERTENSION[ICD9: 401.9] Diagnosis: COPD (chronic obstructive pulmonary disease)[ICD9: 496] Diagnosis: ALLERGIC RHINITIS[ICD9: 477.9] [facility] CPT-4: 92802 02/07/2015 Plan of Care Planned Activity Notes Codes Status Date Patient Education: Patient Medication Summary Completed 05/21/2018 [...] and swallow. 04/21/2018 Appointment: Kim Burden WPtel: [address] [place], [place] [address] (15 min) Moderate 04/21/2018 Patient Education: Patient [...] acute changes. 04/09/2018 Appointment: Mallorie Wetzel WPtel: [facility]5 [phone] (30 min) Complex 04/09/2018 Patient Education: Patient [...] acute changes. 01/19/2018 Appointment: Kim Burden WPtel: [facility]5 [facility] [place] (15 min) Moderate 01/19/2018 Patient Education: Patient Medication Summary Completed 01/19/2018 Appointment: Kim Burden WPtel: [address] [place], [place] [id number] (15 min) Moderate 01/14/2018 Visit Plan: Medicare [...] surrogate. 12/18/2017 Appointment: Pebbles [phone] [facility] - Annual Wellness Visit [...] home. 10/16/2017 Appointment: Kim Burden WPtel: [phone] [facility] (15 min) Moderate 10/16/2017 Patient Education: [...] concerns. 09/03/2017 Appointment: Pebbles Lund WPtel: [phone] [facility] (15 min) Moderate 09/03/2017 Patient Education: Patient Medication Summary Completed 09/03/2017 Appointment: Kim Burden WPtel: [phone] [facility] [place] (15 min) Moderate 08/11/2017 Appointment: Kim Burden WPtel: [facility]4 [facility] [place] (15 min) Moderate 08/11/2017 Patient [...] current treatment. 07/31/2017 App[facility]ment: [phone] [facility] ([facility] min) Moderate 07/31/2017 Patient Education: Patient Medication Summary Completed 07/31/2017 Appointment: Nurse Visit 07/18/2017 Patient Education: Patient Medication Summary Completed 07/18/2017 Patient Education: Patient Medication Summary Completed 07/18/2017 Appointment: Kim Burden WPtel: [phone] [facility] [place] (15 min) Moderate 06/30/2017 Visit Plan: Effusion left knee-fall 2 weeks ago-recommend compression of joint and refer to Ortho for evaluation and treatment-will refer to Dr Pryor/Quinton Mccormick. Patient verbalized understanding of plan. 06/16/2017 Appointment: Mallorie Wetzel WPtel: [phone] [phone] [place] (30 min) Complex 06/16/2017 Patient Education: [...] Kim Burden WPtel: [facility]5 [facility] (15 min) Moderate 05/28/2017 Patient Education: [...] acute changes. 05/05/2017 Appointment: Kim Burden WPtel: [facility]4 [facility] [place] (15 min) Moderate 05/05/2017 Patient Education: [...] current medications. 03/13/2017 Appointment: Kim Burden WPtel: [facility]8 [facility] (15 min) Moderate 03/13/2017 Patient Education: Patient [...] symptoms worsening. 02/10/2017 Appointment: Kim Burden WPtel: [facility]6 [facility] (15 min) Moderate 02/10/2017 Patient Education: [...] not improving. 01/14/2017 Appointment: [facility]el[facility] [phone] [facility] (15 min) Moderate 01/14/2017 Patient Education: [...] concerns. 01/07/2017 Appointment: Pebbles Lund [facility]Ptel[phone] (30 min) Complex 01/07/2017 Patient Education: [...] pressures. 01/01/2017 Appointment: Pebbles Lund [facility]Ptel[facility] [phone] [facility] (30 min) Complex 01/01/2017 Patient Education: [...] 12/12/2016 Appointment: Pebbles Lund [facility]Ptel[facility] [phone] [facility] [facility] - Annual Wellness Visit [...] time. 12/11/2016 Appointment: Kim Burden WPtel: [phone] [facility] (15 min) Moderate 12/11/2016 Patient Education: Patient Medication Summary Completed 12/11/2016 Appointment: Mallorie Wetzel WPtel: [phone] [phone] [place] (30 min) Complex 12/10/2016 Visit Plan: [...] improving. 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 07/17/2016 Appointment: Kim Burden WPtel: [facility]9 [facility]66[facility] (15 min) Moderate 07/17/2016 Patient Education: Patient Medication Summary Completed 07/17/2016 Appointment: Kim Burden WPtel: [facility] (15 min) Moderate 06/10/2016 Visit Plan: Hip pain - persistent but improving - continue with current treatment plan. Pt to call if her symptoms are not improving or if her hip pain worsens. URI symptoms - supportive care, use otc allergy medications. 05/15/2016 Appointment: Kim Burden WPtel: [facility]2 [facility]66[facility] (15 min) Moderate 05/15/2016 Patient [...] not improving. 04/23/2016 Appointment: Kim Burden WPtel: [address] [place], [place] [address] (15 min) Moderate 04/23/2016 Patient Education: Patient Medication Summary Completed 04/23/2016 Patient Education: Hypertension Completed 04/23/2016 Care Plan: X-RAY EXAM OF ABDOMEN LOINC : 67034-6 Pending 03/18/2016 Visit Plan: URI - Pt [...] spray. 03/14/2016 Appointment: Pebbles Lund WPtel: [phone] [facility] (30 min) Complex 03/14/2016 Patient Education: Patient Medication Summary Completed 03/14/2016 Patient Education: Patient Medication Summary Completed 02/29/2016 Visit Plan: Flank pain - pt is currently being treated for UTI, but is having continued left flank pain - will get KUB - pt is to notify clinic if symptoms do not improve, or with any concerns. 02/19/2016 Appointment: Pebbles Lund WPtel: [phone] [facility] (30 min) Complex 02/19/2016 Patient Education: Patient Medication Summary Completed 02/19/2016 Appointment: Kim Burden WPtel: [phone] [facility] (15 min) Moderate 01/22/2016 Visit Plan: [...] improving. 12/19/2015 Appointment: Kim Burden WPtel: [phone] [facility] (15 min) Moderate 12/19/2015 Patient Education: [...] Finish RX. 03/06/2015 Appointment: Kim Burden WPtel: [facility] Follow up 03/06/2015 Patient Education: Patient [...] Education: Hypertension Completed 02/07/2015 Care Plan: SCREENINGMAMMOGRAPHYDIGITAL [facility] : 69492-7 Ordered 02/07/2015 Care Plan: COMPLETE CBC AUTOMATED LOINC : 50008-3 Ordered 02/07/2015 Instructions Comment . Dehydration, palpitations, [...] to help decrease GI upset./loose stools - Promuc or [employer] . Hypertension - well controlled - continue [...] care surrogate. TAKE WITH [employer] ([employer] OR [email or web address]) . URI - Pt advised to increase [...]
--- OUTSIDE RECORDS SUMMARY | 2019-04-06 09:52 | XMS REPORT | CCD ---
Author Author Mallorie Wetzel Organization Kim Burden MD, [facility] Address [address] [place] [address] Phone Care Team Providers Care Racket Stringer Name Role Phone PP Unavailable CCM Unavailable Summary Purpose Interface Exchange Insurance Providers Payer name Policy type / Coverage type Covered constitution party ID Effective Begin Date Effective End Date WPS Medicare Part B Medicare Part B [id number] 2018 Unknown AETNA Medicare Part B [id number] Unknown Family history Brother Diagnosis Age At [...] 02/07/2015 Employment Unknown Currently employed works at [employer] 02/07/[address]: 2407709 Quit over 10 years ago 199302/07/2015 Number [...] (vit B-12) 1,000 mcg/mL injection solution RxNorm: 431038 Milliliter(s) Inj 05/21/2018 05/21/2018 Inactive fluticasone 50 mcg/actuation nasal spray,suspension RxNorm: 2006009 1 [place] NASAL BID 05/19/2018 05/13/2019 Active fluticasone 50 mcg/actuation nasal spray,suspension RxNorm: 9527539 1 [place] NASAL BID 05/18/2018 05/18/2018 Inactive fluticasone 50 mcg/actuation nasal spray,suspension RxNorm: 5239642 1 [place] NASAL BID 05/15/2018 05/17/2018 Inactive fluticasone 50 mcg/actuation nasal spray,suspension RxNorm: 6214528 1 [place] NASAL BID 05/15/2018 05/14/2018 Inactive nystatin 100,000 unit/mL oral suspension RxNorm: 160712 5 Milliliter(s) PO QID 04/21/2018 04/30/2018 Inactive Breo Ellipta 100 mcg-25 mcg/dose powder for inhalation RxNorm: 6153734 1 INH daily 04/09/2018 04/03/2019 Active please call patient with jaramillo before sending prednisone 20 mg tablet RxNorm: 563624 1 Tablet(s) PO BID 04/09/2018 04/13/2018 Inactive start tomorrow Kenalog 40 mg/mL suspension for injection RxNorm: 5930853 1.5 Milliliter(s) Inj 04/09/2018 04/09/2018 Inactive Breo Ellipta 100 mcg-25 mcg/dose powder for inhalation RxNorm: 0504542 1 INH daily 04/09/2018 04/08/2018 Inactive alprazolam 1 mg tablet RxNorm: 291543 1 Tablet(s) PO TID 03/13/2018 12/07/2018 Active losartan 100 mg tablet RxNorm: 994475 TAKE 1 TABLET EVERY EVENING 03/02/2018 02/13/2021 Active Ventolin HFA 90 mcg/actuation aerosol inhaler RxNorm: 792027 2 INH Q4-6H as needed 12/29/2017 02/26/2018 Inactive Ventolin HFA 90 mcg/actuation aerosol inhaler RxNorm: 126950 2 INH Q4-6H as needed 12/29/2017 12/28/2017 Inactive Diflucan 150 mg tablet RxNorm: 279439 1 Tablet(s) PO daily 11/03/2017 11/05/2017 Inactive please call pt to let herknow when to pick- up the med Keflex 500 mg capsule RxNorm: 846819 1 Capsule(s) PO TID 10/23/2017 10/29/2017 Inactive Kenalog 40 mg/mL suspension for injection RxNorm: 3155162 1 Milliliter(s) Inj 10/16/2017 10/16/2017 Inactive ibuprofen 800 mg tablet RxNorm: 090714 TAKE 1 TABLET THREE TIMES DAILY 10/15/2017 01/07/2019 Active Lexapro 10 mg tablet RxNorm: 980643 TAKE 1 TABLET EVERY DAY 10/15/2017 10/09/2018 Active hydrocodone 5 mg-acetaminophen 325 mg tablet RxNorm: 724576 1 Tablet(s) PO QID as needed 09/03/2017 No Stop Date Active omeprazole 20 mg capsule,delayed release RxNorm: 539006 1 Capsule(s) PO BID 09/02/2017 08/27/2018 Active alprazolam 1 mg tablet RxNorm: 809976 1 Tablet(s) PO TID 09/02/2017 03/12/2018 Inactive metoprolol tartrate 50 mg tablet RxNorm: 794853 1/2 Tablet(s) PO BID 06/26/2017 06/20/2018 Active omeprazole 20 mg capsule,delayed release RxNorm: 477104 1 Capsule(s) PO BID 06/05/2017 09/01/2017 Inactive omeprazole 20 mg capsule,delayed release RxNorm: 526945 1 Capsule(s) PO BID 05/28/2017 06/04/2017 Inactive omeprazole 20 mg capsule,delayed release RxNorm: 872797 1 Capsule(s) PO QPM 05/27/2017 05/27/2017 Inactive Breo Ellipta 100 mcg-25 mcg/dose powder for inhalation RxNorm: 1179492 1 INH daily 05/05/2017 04/08/2018 Inactive alprazolam 1 mg tablet RxNorm: 448097 1 Tablet(s) PO TID 02/10/2017 08/07/2017 Inactive metoprolol tartrate 50 mg tablet RxNorm: 409141 1/2 Tablet(s) PO BID 02/10/2017 06/25/2017 Inactive losartan 100 mg tablet RxNorm: 193282 1 Tablet(s) PO QPM 02/10/2017 02/04/2018 Inactive losartan 50 mg tablet RxNorm: 412130 2 Tablet(s) PO QPM 01/23/2017 02/09/2017 Inactive Diflucan 150 mg tablet RxNorm: 939163 1 Tablet(s) PO daily 01/20/2017 01/22/2017 Inactive please call pt to let herknow when to pick- up the med Diflucan 150 mg tablet RxNorm: 521490 1 Tablet(s) PO daily 01/20/2017 01/19/2017 Inactive please call pt to let herknow when to pick- up the med losartan 50 mg tablet RxNorm: 557611 1 Tablet(s) PO QPM 01/14/2017 01/22/2017 Inactive Cipro 500 mg tablet RxNorm: 249609 1 Tablet(s) PO BID 01/08/2017 01/17/2017 Inactive Cipro 500 mg tablet RxNorm: 823438 1 Tablet(s) PO BID 01/08/2017 01/07/2017 Inactive Lexapro 10 mg tablet RxNorm: 934429 TAKE 1 TABLET EVERY DAY 12/20/2016 10/14/2017 Inactive metoprolol tartrate 50 mg tablet RxNorm: 038376 1 Tablet(s) PO in the morning and 1.5 pill at night 12/11/2016 01/13/2017 Inactive spironolactone 25 mg tablet RxNorm: 775383 TAKE 1 TABLET EVERY DAY 11/04/2016 07/31/2017 Inactive metoprolol tartrate 50 mg tablet RxNorm: 460272 TAKE 1 TABLET TWICE DAILY 10/29/2016 12/10/2016 Inactive ibuprofen 800 mg tablet RxNorm: 535585 TAKE 1 TABLET THREE TIMES DAILY 10/21/2016 10/14/2017 Inactive Astepro 0.15 % (205.5 mcg) nasal spray RxNorm: 1085723 1 [place] NASAL BID 10/15/2016 10/09/2017 Inactive Astepro 0.15 % (205.5 mcg) nasal spray RxNorm: 7562818 1 [place] NASAL BID 10/15/2016 10/14/2016 Inactive Astepro 0.15 % (205.5 mcg) nasal spray RxNorm: 1246895 1 [place] NASAL BID 10/15/2016 10/14/2016 Inactive omeprazole 20 mg capsule,delayed release RxNorm: 211883 1 Capsule(s) PO QPM 10/15/2016 05/26/2017 Inactive omeprazole 20 mg capsule,delayed release RxNorm: 773302 1 Capsule(s) QPM 10/15/2016 10/14/2016 Inactive omeprazole 20 mg capsule,delayed release RxNorm: 344331 TAKE 1 CAPSULE TWICE DAILY 09/02/2016 10/14/2016 Inactive Lexapro 10 mg tablet RxNorm: 659566 TAKE 1 TABLET EVERY DAY 08/21/2016 12/19/2016 Inactive calcitonin (salmon) 200 unit/actuation nasal spray RxNorm: 495414 1 [place] NASAL daily ONE SPRAY PER ONE NOSTRIL DAILY- ALTERNATE NOSTRILS DAILY 05/31/2016 05/30/2016 Inactive She will do this for 3 months- If she wants to do a 3 month supply at one time she can without refill calcitonin (salmon) 200 unit/actuation nasal spray RxNorm: 740605 1 [place] NASAL daily ONE SPRAY PER ONE NOSTRIL DAILY- ALTERNATE NOSTRILS DAILY 05/31/2016 07/30/2016 Inactive x3 months- no refills Forteo 20 mcg/dose (600 mcg/2.4 mL) subcutaneous pen injector RxNorm: 8895571 1 injection SQ daily 05/22/2016 05/30/2016 Inactive call pt with jaramillo first Forteo 20 mcg/dose (600 mcg/2.4 mL) subcutaneous pen injector RxNorm: 2893338 1 injection SQ daily 05/22/2016 05/21/2016 Inactive Prolia 60 mg/mL subcutaneous syringe RxNorm: 286557 1 Milliliter(s) SQ every 6 months 05/13/2016 No Stop Date Active Please check jaramillo through insurance and let me know- Thanks! Mary Ellen alprazolam 1 mg tablet RxNorm: 231215 1 Tablet(s) PO TID 05/08/2016 11/01/2016 Inactive Lexapro 10 mg tablet RxNorm: 660495 TAKE 1 TABLET EVERY DAY 04/22/2016 08/20/2016 Inactive spironolactone 25 mg tablet RxNorm: 996658 TAKE 1 TABLET EVERY DAY 04/22/2016 11/03/2016 Inactive Diflucan 150 mg tablet RxNorm: 232413 1 Tablet(s) PO daily 03/20/2016 04/14/2016 Inactive Diflucan 150 mg tablet RxNorm: 312302 1 Tablet(s) PO daily 03/20/2016 03/19/2016 Inactive Augmentin 500 mg-125 mg tablet RxNorm: 124715 1 Tablet(s) PO TID 03/14/2016 03/23/2016 Inactive omeprazole 20 mg capsule,delayed release RxNorm: 725172 1 Tablet(s) PO BID 03/06/2016 09/01/2016 Inactive [SAVINGS FOR NON-COVERED DRUGS -- BIN:379065, PCN: ASPROD1, Group: XXXXX, ID# XXXXXXX, Questions: . THIS IS NOT INSURANCE.] amlodipine 5 mg tablet RxNorm: 591719 TAKE 1 TABLET EVERY DAY 03/01/2016 04/22/2016 Inactive omeprazole 20 mg tablet,delayed release RxNorm: 502151 1 Tablet(s) PO BID 02/27/2016 03/05/2016 Inactive [SAVINGS FOR NON-COVERED DRUGS -- BIN:812900, PCN: ASPROD1, Group: XXXXX, ID# XXXXXXX, Questions: . THIS IS NOT INSURANCE.] spironolactone 25 mg tablet RxNorm: 808823 TAKE 1 TABLET EVERY DAY 12/21/2015 04/21/2016 Inactive Lexapro 10 mg tablet RxNorm: 308829 1 Tablet(s) PO daily 12/19/2015 01/01/2016 Inactive Lexapro 10 mg tablet RxNorm: 681245 1 Tablet(s) PO daily 12/19/2015 02/09/2017 Inactive Lexapro 10 mg tablet RxNorm: 581098 1 Tablet(s) PO daily 12/19/2015 12/18/2015 Inactive alprazolam 1 mg tablet RxNorm: 854622 1 Tablet(s) PO TID 12/01/2015 02/28/2016 Inactive ibuprofen 800 mg tablet RxNorm: 257422 1 Tablet(s) PO TID 10/26/2015 10/20/2016 Inactive alprazolam 1 mg tablet RxNorm: 536630 1 Tablet(s) PO TID 08/23/2015 11/19/2015 Inactive spironolactone 25 mg tablet RxNorm: 046153 1 Tablet(s) PO daily 08/21/2015 12/20/2015 Inactive metoprolol tartrate 50 mg tablet RxNorm: 391444 1 Tablet(s) PO BID 08/10/2015 08/03/2016 Inactive [SAVINGS FOR NON-COVERED DRUGS -- BIN:442064, PCN: ASPROD1, Group: XXXXX, ID# XXXXXXX, Questions: . THIS IS NOT INSURANCE.] omeprazole 20 mg tablet,delayed release RxNorm: 614190 1 Tablet(s) PO BID 08/07/2015 02/02/2016 Inactive [SAVINGS FOR NON-COVERED DRUGS -- BIN:674856, PCN: ASPROD1, Group: XXXXX, ID# XXXXXXX, Questions: . THIS IS NOT INSURANCE.] Keflex 500 mg capsule RxNorm: 744362 1 Capsule(s) PO TID 07/10/2015 07/16/2015 Inactive alprazolam 1 mg tablet RxNorm: 460052 1 Tablet(s) PO TID 06/02/2015 08/22/2015 Inactive alprazolam 1 mg tablet RxNorm: 603720 1 Tablet(s) PO TID 03/29/2015 06/01/2015 Inactive amlodipine 5 mg tablet RxNorm: 372888 1 Tablet(s) PO daily 03/06/2015 02/29/2016 Inactive Nasonex 50 mcg/actuation [place] RxNorm: 398869 1 [place] NASAL daily 03/03/2015 03/02/2015 Inactive Keflex 500 mg capsule RxNorm: 241503 1 Capsule(s) PO TID 03/03/2015 03/02/2015 Inactive Nasonex 50 mcg/actuation [place] RxNorm: 275939 1 [place] NASAL daily 03/03/2015 05/01/2015 Inactive Keflex 500 mg capsule RxNorm: 924599 1 Capsule(s) PO TID 03/03/2015 03/05/2015 Inactive Carafate 1 gram tablet RxNorm: 786872 TAKE 1 TABLET FOUR TIMES DAILY 30 MINUTES BEFORE MEALS AND AT BEDTIME 02/28/2015 12/18/2015 Inactive Kenalog 40 mg/mL suspension for injection RxNorm: 6818501 Milliliter(s) Inj 02/07/2015 02/07/2015 Inactive [SAVINGS FOR NON-COVERED DRUGS -- BIN:644809, PCN: ASPROD1, Group: XXXXX, ID# XXXXXXX, Questions: . THIS IS NOT INSURANCE.] metoprolol tartrate 50 mg tablet RxNorm: 024766 1 Tablet(s) PO BID 02/07/2015 08/09/2015 Inactive [SAVINGS FOR NON-COVERED DRUGS -- BIN:745554, PCN: ASPROD1, Group: XXXXX, ID# XXXXXXX, Questions: . THIS IS NOT INSURANCE.] Carafate 1 gram tablet RxNorm: 648541 1 Tablet(s) PO QID 02/07/2015 02/27/2015 Inactive 30 min before meals and at bedtime omeprazole 20 mg tablet,delayed release RxNorm: 310781 1 Tablet(s) PO BID 02/07/2015 08/05/2015 Inactive [SAVINGS FOR NON-COVERED DRUGS -- BIN:301179, PCN: ASPROD1, Group: XXXXX, ID# XXXXXXX, Questions: . THIS IS NOT INSURANCE.] Vitamin D3 2,000 unit tablet RxNorm: 832885 1 Tablet(s) PO daily No Start Date Active aspirin 81 mg tablet RxNorm: 486730 1 Tablet(s) PO daily No Start Date Active loratadine 10 mg tablet RxNorm: 135057 1 Tablet(s) PO daily No Start Date Active amlodipine 2.5 mg tablet RxNorm: 127913 1 Tablet(s) PO daily No Start Date 03/05/2015 Inactive spironolactone 25 mg tablet RxNorm: 001720 1 Tablet(s) PO daily No Start Date 08/20/2015 Inactive cetirizine 10 mg tablet RxNorm: 1019705 1 Tablet(s) PO daily No Start Date 12/18/2015 Inactive metoprolol tartrate 50 mg tablet RxNorm: 759197 1 Tablet(s) PO daily No Start Date 02/06/2015 Inactive ipratropium bromide 0.06 % nasal spray RxNorm: 185421 nasal No Start Date 12/18/2015 Inactive alprazolam 1 mg tablet RxNorm: 739941 1 Tablet(s) PO TID No Start Date 03/28/2015 Inactive Prolia 60 mg/mL subcutaneous syringe RxNorm: 809681 1 Milliliter(s) SQ every 6 months No Start Date 05/12/2016 Inactive Please check jaramillo through insurance and let me know- Thanks! Mary Ellen ibuprofen 800 mg tablet RxNorm: 525612 1 Tablet(s) PO TID No Start Date 10/25/2015 Inactive Protonix 40 mg tablet,delayed release RxNorm: 182311 1 Tablet(s) PO daily No Start Date 03/05/2015 Inactive Medication Administered Medication Codes Instructions Start Date Status cyanocobalamin (vit B-12) 1,000 mcg/mL injection solution RxNorm: 366979 Milliliter 05/21/2018 Active Kenalog 40 mg/mL suspension for injection RxNorm: 4671542 1.5Milliliter 04/09/2018 No longer Active Kenalog 40 mg/mL suspension for injection RxNorm: 5567259 1Milliliter 10/16/2017 No longer Active Kenalog 40 mg/mL suspension for injection RxNorm: 4719497 Milliliter 02/07/2015 No longer Active Immunizations Vaccine [...] Item Item Code Result Date Comp Metabolic Mdq681 NA 138 mEq/L 09/03/2017 Comp Metabolic Vcd586 K 3.9 mEq/L 09/03/2017 Comp Metabolic Qng079 CL 102 mEq/L 09/03/2017 Comp Metabolic Lwe136 CO2 32.0 mEq/L 09/03/2017 Comp Metabolic Hoy499 ANION GAP 8 09/03/2017 Comp Metabolic Spb570 GLUCOSE 89 mg/dL 09/03/2017 Comp Metabolic Jff302 Creat 0.6 mg/dL 09/03/2017 Comp Metabolic Rkt789 eGFR 103 ml/min/1.73m2 09/03/2017 Comp Metabolic Jgl330 BUN 10 mg/dL 09/03/2017 Comp Metabolic Mgg520 B/C Ratio 16.7 Ratio 09/03/2017 Comp Metabolic Krh228 CALCIUM 8.9 mg/dL 09/03/2017 Comp Metabolic Ehr600 ALK PHOS 141 U/L 09/03/2017 Comp Metabolic Txv828 AST(SGOT) 12 U/L 09/03/2017 Comp Metabolic Dgv734 ALT(SGPT) 7 U/L 09/03/2017 Comp Metabolic Iwr623 BILI T 0.6 mg/dL 09/03/2017 Comp Metabolic Syc213 ALBUMIN 3.6 g/dL 09/03/2017 Comp Metabolic Avg790 TPRO 6.6 g/dL 09/03/2017 Comp Metabolic Opv020 GLOB 3.0 g/dL 09/03/2017 Comp Metabolic Qfx583 A/G Ratio 1.2 Ratio 09/03/2017 Comp Metabolic Fxe787 Osmo 274 mOsmo 09/03/2017 Hepatic Rmq375 ALBUMIN 3.7 g/dL 08/11/2017 Hepatic Eow187 TPRO 7.0 g/dL 08/11/2017 Hepatic Odz509 GLOB 3.3 g/dL 08/11/2017 Hepatic Ake625 A/G Ratio 1.1 Ratio 08/11/2017 Hepatic Rlx807 ALK PHOS 85 U/L 08/11/2017 Hepatic Nni211 ALT(SGPT) 11 U/L 08/11/2017 Hepatic Nks786 AST(SGOT) 16 U/L 08/11/2017 Hepatic Vjl184 BILI T 0.6 mg/dL 08/11/2017 Hepatic Jfq333 BILI D 0.1 mg/dL 08/11/2017 Hepatic Dcx271 BILI I 0.5 mg/dL 08/11/2017 Hepatic Jpq306 ALBUMIN 3.1 g/dL 07/18/2017 Hepatic Vnt104 TPRO 5.9 g/dL 07/18/2017 Hepatic Rlv010 GLOB 2.8 g/dL 07/18/2017 Hepatic Jfu547 A/G Ratio 1.1 Ratio 07/18/2017 Hepatic Adp287 ALK PHOS 123 U/L 07/18/2017 Hepatic Dpp766 ALT(SGPT) 210 U/L 07/18/2017 Hepatic Jig576 AST(SGOT) 71 U/L 07/18/2017 Hepatic Ofd752 BILI T 1.1 mg/dL 07/18/2017 Hepatic Gpi062 BILI D 0.4 mg/dL 07/18/2017 Hepatic Gik482 BILI I 0.7 mg/dL 07/18/2017 Cbc With [...] 32.4 pg 02/25/2017 Cbc With Differential Ord2 [place]% 7.6 % 02/25/2017 Cbc With Differential Ord2 [...] 1.22 K/ul 02/25/2017 Cbc With Differential Ord2 [place] ABS# 0.4 K/ul 02/25/2017 Cbc With Differential [...] 32.3 pg 01/02/2017 Cbc With Differential Ord2 [place]% 7.8 % 01/02/2017 Cbc With Differential Ord2 [...] 0.90 K/ul 01/02/2017 Cbc With Differential Ord2 [place] ABS# 0.4 K/ul 01/02/2017 Cbc With Differential Ord2 Eos ABS# 0.3 K/ul 01/02/2017 Cbc With Differential Ord2 Baso ABS# 0.0 K/ul 01/02/2017 Lipid Ord30 CHOL 139 mg/dL 12/13/2016 Lipid Ord30 HDL 48.0 mg/dl 12/13/2016 Lipid Ord30 TRIG 84 mg/dL 12/13/2016 Lipid Ord30 LDL 74 mg/dL 12/13/2016 Lipid Ord30 C/HDL 2.9 Ratio 12/13/2016 Comp Metabolic Iws022 NA 137 mEq/L 12/13/2016 Comp Metabolic Lqw386 K 4.8 mEq/L 12/13/2016 Comp Metabolic Obf744 CL 101 mEq/L 12/13/2016 Comp Metabolic Hwb310 CO2 32.0 mEq/L 12/13/2016 Comp Metabolic Kbm261 ANION GAP 9 12/13/2016 Comp Metabolic Bfq263 GLUCOSE 95 mg/dL 12/13/2016 Comp Metabolic Ytb259 Creat 0.8 mg/dL 12/13/2016 Comp Metabolic Mwr725 eGFR 79 ml/min/1.73m2 12/13/2016 Comp Metabolic Otl236 BUN 15 mg/dL 12/13/2016 Comp Metabolic Nxb400 B/C Ratio 19.7 Ratio 12/13/2016 Comp Metabolic Fdn946 CALCIUM 9.3 mg/dL 12/13/2016 Comp Metabolic Uzo051 ALK PHOS 63 U/L 12/13/2016 Comp Metabolic Pth940 AST(SGOT) 15 U/L 12/13/2016 Comp Metabolic Wrk591 ALT(SGPT) 10 U/L 12/13/2016 Comp Metabolic Rbh633 BILI T 0.7 mg/dL 12/13/2016 Comp Metabolic Qrw896 ALBUMIN 3.7 g/dL 12/13/2016 Comp Metabolic Yil140 TPRO 6.8 g/dL 12/13/2016 Comp Metabolic Yrf297 GLOB 3.2 g/dL 12/13/2016 Comp Metabolic Zea886 A/G Ratio 1.2 Ratio 12/13/2016 Comp Metabolic Lsu023 Osmo 274 mOsmo 12/13/2016 Cbc With Differential [...] 31.9 pg 12/13/2016 Cbc With Differential Ord2 [place]% 9.9 % 12/13/2016 Cbc With Differential Ord2 [...] 1.17 K/ul 12/13/2016 Cbc With Differential Ord2 [place] ABS# 0.4 K/ul 12/13/2016 Cbc With Differential [...] 32.1 pg 12/19/2015 Cbc With Differential Ord2 [place]% 5.9 % 12/19/2015 Cbc With Differential Ord2 [...] 1.53 K/ul 12/19/2015 Cbc With Differential Ord2 [place] ABS# 0.3 K/ul 12/19/2015 Cbc With Differential [...] Ord30 C/HDL 2.8 Ratio 12/19/2015 Comp Metabolic Zat511 NA 135 mEq/L 12/19/2015 Comp Metabolic Jxd852 K 4.1 mEq/L 12/19/2015 Comp Metabolic Xqb166 CL 99 mEq/L 12/19/2015 Comp Metabolic Got916 CO2 27.0 mEq/L 12/19/2015 Comp Metabolic Yer772 ANION GAP 13 12/19/2015 Comp Metabolic Wmi173 GLUCOSE 83 mg/dL 12/19/2015 Comp Metabolic Bal862 Creat 0.7 mg/dL 12/19/2015 Comp Metabolic Vhu042 eGFR 88 ml/min/1.73m2 12/19/2015 Comp Metabolic Jcq003 BUN 12 mg/dL 12/19/2015 Comp Metabolic Luv435 B/C Ratio 17.4 Ratio 12/19/2015 Comp Metabolic Kai553 CALCIUM 9.0 mg/dL 12/19/2015 Comp Metabolic Poe895 ALK PHOS 68 U/L 12/19/2015 Comp Metabolic Zuy300 AST(SGOT) 16 U/L 12/19/2015 Comp Metabolic Lgv959 ALT(SGPT) 13 U/L 12/19/2015 Comp Metabolic Hdn938 BILI T 0.7 mg/dL 12/19/2015 Comp Metabolic Nzs922 ALBUMIN 4.0 g/dL 12/19/2015 Comp Metabolic Tso772 TPRO 7.0 g/dL 12/19/2015 Comp Metabolic Mwj528 GLOB 3.0 g/dL 12/19/2015 Comp Metabolic Zcq043 A/G Ratio 1.3 Ratio 12/19/2015 Comp Metabolic Jvv522 Osmo 269 mOsmo 12/19/2015 Review of Systems [...] Procedure Codes Date THER/PROPH/DIAG INJ SC/IM CPT-4: 65510 05/21/2018 VITAMIN B12 INJECTION CPT- 4: J3420 05/21/2018 TRIAMCINOLONE ACET INJ NOS CPT-4: J3301 04/09/2018 PPPS, SUBSEQ VISIT CPT- 4: G0439 12/18/2017 TRIAMCINOLONE ACET INJ NOS CPT-4: J3301 10/16/2017 DRAIN/INJECT JOINT/BURSA CPT-4: 90959 10/16/2017 PRESCRIP TRANSMIT VIA ERX SY CPT-4: G8553 05/05/2017 PRESCRIP TRANSMIT VIA ERX SY CPT-4: G8553 01/14/2017 PPPS, SUBSEQ VISIT CPT- 4: G0439 12/12/2016 PRESCRIP TRANSMIT VIA ERX SY CPT-4: G8553 10/15/2016 ADMIN PNEUMOCOCCAL VACCINE SNOMED CT: 82096780 CPT-4: G0009 08/28/2016 Pneumococcal Polysaccharide Vaccine, 23-Valent, Ad CPT-4: 50303 08/28/2016 PRESCRIP TRANSMIT VIA ERX SY CPT-4: G8553 03/14/2016 PRESCRIP TRANSMIT VIA ERX SY CPT-4: G8553 12/19/2015 THER/PROPH/DIAG INJ SC/IM CPT-4: 41434 02/07/2015 TRIAMCINOLONE ACET INJ NOS CPT-4: J3301 02/07/2015 Vital Signs Date Vital 04/21/2018 Blood Pressure 1: 108/70 Code: 8480-6 BMI: 24.4 Code: 32968-3 Heart Rate 1: 62 bpm Height: 5'1" SpO2: 94% Weight: 129 lbs 04/09/2018 Blood Pressure 1: 138/86 Code: 8480-6 BMI: 25.5 Code: 21467-6 Heart Rate 1: 64 bpm Height: 5'1" SpO2: 99% Temperature: 36.4 (C) / 97.5 (F) Weight: 135 lbs 01/19/2018 Blood Pressure 1: 128/76 Code: 8480-6 BMI: 25.9 Code: 13857-1 Heart Rate 1: 65 bpm Height: 5'1" SpO2: 98% Weight: 137 lbs 12/18/2017 Blood Pressure 1: 144/82 Code: 8480-6 BMI: 26.1 Code: 69861-8 Heart Rate 1: 57 bpm Height: 5'1" SpO2: 97% Waist Measure (cm): 74 cm Weight: 138 lbs 10/16/2017 Blood Pressure 1: 142/88 Code: 8480-6 BMI: 25.5 Code: 58687-6 Heart Rate 1: 63 bpm Height: 5'1" SpO2: 97% Weight: 135 lbs 09/03/2017 Blood Pressure 1: 144/90 Code: 8480-6 BMI: 26.3 Code: 12561-0 Heart Rate 1: 91 bpm Height: 5'1" SpO2: 96% Weight: 139 lbs 07/31/2017 Blood Pressure 1: 136/90 Code: 8480-6 BMI: 26.3 Code: 28538-3 Height: 5'1" Weight: 139 lbs 07/18/2017 Blood Pressure 1: 136/84 Code: 8480-6 06/16/2017 Blood Pressure 1: 136/84 Code: 8480-6 BMI: 26.5 Code: 88291-1 Heart Rate 1: 72 bpm Height: 5'1" SpO2: 97% Weight: 140 lbs 05/28/2017 Blood Pressure 1: 138/78 Code: 8480-6 BMI: 26.1 Code: 86446-4 Heart Rate 1: 70 bpm Height: 5'1" SpO2: 98% Weight: 138 lbs 05/05/2017 Blood Pressure 1: 140/86 Code: 8480-6 BMI: 25.3 Code: 17087-5 Heart Rate 1: 66 bpm Height: 5'1" SpO2: 99% Weight: 134 lbs 03/13/2017 Blood Pressure 1: 126/74 Code: 8480-6 BMI: 25.3 Code: 72339-8 Heart Rate 1: 73 bpm Height: 5'1" SpO2: 98% Weight: 134 lbs 02/10/2017 Blood Pressure 1: 148/88 Code: 8480-6 BMI: 25.9 Code: 76444-8 Heart Rate 1: 84 bpm Height: 5'1" SpO2: 97% Weight: 137 lbs 01/14/2017 Blood Pressure 1: 134/86 Code: 8480-6 BMI: 25.7 Code: 01608-2 Heart Rate 1: 83 bpm Height: 5'1" SpO2: 95% Weight: 136 lbs 01/07/2017 Blood Pressure 1: 136/88 Code: 8480-6 BMI: 25.1 Code: 41302-9 Heart Rate 1: 86 bpm Height: 5'1" SpO2: 94% Weight: 133 lbs 01/02/2017 Blood Pressure 1: 122/68 Code: 8480-6 Blood Pressure 2: 116/78 Code: 8480-6 01/01/2017 Blood Pressure 1: 90/52 Code: 8480-6 BMI: 25.1 Code: 83570- 5 Heart Rate 1: 86 bpm Height: 5'1" SpO2: 99% Weight: 133 lbs 12/20/2016 Blood Pressure 1: 120/76 Code: 8480-6 12/12/2016 Blood Pressure 1: 130/72 Code: 8480-6 BMI: 24.8 Code: 09170-6 Heart Rate 1: 62 bpm Height: 5'1" SpO2: 98% Waist Measure (cm): 79 cm Weight: 131 lbs 12/11/2016 Blood Pressure 1: 132/70 Code: 8480-6 BMI: 24.8 Code: 43995-0 Heart Rate 1: 60 bpm Height: 5'1" Weight: 131 lbs 10/15/2016 Blood Pressure 1: 108/66 Code: 8480-6 BMI: 24.8 Code: 50125-3 Heart Rate 1: 60 bpm Height: 5'1" Weight: 131 lbs 07/17/2016 Blood Pressure 1: 128/82 Code: 8480-6 BMI: 25.3 Code: 06460-4 Heart Rate 1: 50 bpm Height: 5'2" Weight: 136 lbs 05/15/2016 Blood Pressure 1: 108/70 Code: 8480-6 BMI: 23.4 Code: 91317-7 Heart Rate 1: 54 bpm Height: 5'2" SpO2: 96% Weight: 126 lbs 04/23/2016 Blood Pressure 1: 112/60 Code: 8480-6 BMI: 23.6 Code: 28083-1 Heart Rate 1: 92 bpm Height: 5'2" SpO2: 95% Weight: 127 lbs 03/14/2016 Blood Pressure 1: 118/74 Code: 8480-6 BMI: 24.0 Code: 56591-5 Heart Rate 1: 51 bpm Height: 5'2" SpO2: 94% Temperature: 36.8 (C) / 98.3 (F) Weight: 129 lbs 02/19/2016 Blood Pressure 1: 110/62 Code: 8480-6 BMI: 23.4 Code: 08891-4 Heart Rate 1: 74 bpm Height: 5'2" SpO2: 97% Weight: 126 lbs 12/19/2015 Blood Pressure 1: 108/74 Code: 8480-6 BMI: 23.6 Code: 24920-4 Heart Rate 1: 52 bpm Height: 5'2" Weight: 127 lbs 03/06/2015 Blood Pressure 1: 136/88 Code: 8480-6 Heart Rate 1: 64 bpm Weight: 129 lbs 02/07/2015 Blood Pressure 1: 142/90 Code: 8480-6 BMI: 24.5 Code: 39043-3 Heart Rate 1: 82 bpm Height: 5'2" [...] data Encounters Encounter Performer Location Codes Date ([id number]) [id number] EST. PATIENT, LEVEL IV Diagnosis: Essential (primary) hypertension[ICD10: I10] Diagnosis: Other emphysema[ICD10: J43.8] Diagnosis: Candidal stomatitis[ICD10: B37.0] Kim Burden MD, [facility] CPT- 4: 04336 04/21/2018 [id number]) [id number] EST. PATIENT, LEVEL III Diagnosis: Chronic obstructive pulmonary disease with (acute) exacerbation[ICD10: J44.1] Mallorie Burden MD, [facility] CPT-4: 93902 04/09/2018 [id number]) [id number] EST. PATIENT, LEVEL IV Diagnosis: Essential (primary) hypertension[ICD10: I10] Diagnosis: Other emphysema[ICD10: J43.8] Kim Burden MD, [facility] CPT-4: 99034 01/19/2018 [id number]) [id number] EST. PATIENT, LEVEL IV Diagnosis: Essential (primary) hypertension[ICD10: I10] Diagnosis: Other emphysema[ICD10: J43.8] Diagnosis: Dependence on supplemental oxygen[ICD10: Z99.81] Diagnosis: Hypoxemia[ICD10: R09.02] Diagnosis: Pain in left knee[ICD10: M25.562] Diagnosis: Effusion, left knee[ICD10: M25.462] [facility] CPT- 4: 74958 10/16/2017 [id number] EST. PATIENT, LEVEL III Diagnosis: Pain in thoracic spine[ICD10: M54.6] [facility] CPT- 4: 23303 09/03/2017 ([id number]) [id number] EST. PATIENT, LEVEL III Diagnosis: Essential (primary) hypertension[ICD10: I10] Diagnosis: Other emphysema[ICD10: J43.8] Kim Burden MD [facility] CPT-4: 74185 07/31/2017 ([id number]) Miscellaneous no charge Diagnosis: Essential (primary) hypertension[ICD10: I10] Mallorie Burden MD [facility] CPT-4: 68128 07/18/2017 ([id number]) 22778 EST. PATIENT, LEVEL III Diagnosis: Pain in left knee[ICD10: M25.562] Diagnosis: Effusion, left knee[ICD10: M25.462] Mallorie Burden MD [facility] CPT-4: 53205 06/16/2017 ([id number]) [id number] EST. PATIENT, LEVEL III Diagnosis: Essential (primary) hypertension[ICD10: I10] Diagnosis: Unsteadiness on feet[ICD10: R26.81] Kim Bur[facility] MD [facility] [facility] CPT[facility]: 23109 05/28/2017 ([id number]) 34540 EST. PATIENT, LEVEL IV Diagnosis: Essential (primary) hypertension[ICD10: I10] Diagnosis: Chronic obstructive pulmonary disease with acute lower respiratory infection[ICD10: J44.0] Kim Burden MD [facility] CPT-4: 40284 05/05/2017 ([id number]) 26713 EST. PATIENT, LEVEL IV Diagnosis: Essential (primary) hypertension[ICD10: I10] Diagnosis: Major depressive disorder, recurrent, mild[ICD10: F33.0] Kim Burden MD [facility] CPT-4: 72171 03/13/2017 ([id number]) 68319 EST. PATIENT, LEVEL IV Diagnosis: Essential (primary) hypertension[ICD10: I10] Diagnosis: Gastro-esophageal reflux disease without esophagitis[ICD10: K21.9] Diagnosis: Chronic obstructive pulmonary disease, unspecified[ICD10: J44.9] Kim Burden MD, [facility] CPT-4: 90806 02/10/2017 ([id number]) 50747 EST. PATIENT, LEVEL IV Diagnosis: Essential (primary) hypertension[ICD10: I10] Diagnosis: Gastro-esophageal reflux disease without esophagitis[ICD10: K21.9] Diagnosis: Chronic obstructive pulmonary disease with acute lower respiratory infection[ICD10: J44.0] Kim Burden MD, [facility] CPT-4: 33001 01/14/2017 [id number] EST. PATIENT, LEVEL IV Diagnosis: Other fatigue[ICD10: R53.83] Diagnosis: Other malaise[ICD10: R53.81] Diagnosis: Headache[ICD10: R51] Diagnosis: Palpitations[ICD10: R00.2] Diagnosis: Dehydration[ICD10: E86.0] Pebbles Burden MD, [facility] CPT-4: 83440 01/07/2017 ([id number]) Miscellaneous no charge Diagnosis: Essential (primary) hypertension[ICD10: I10] Pebbles Burden MD, [facility] CPT-4: 43495 01/02/2017 31782 EST. PATIENT, LEVEL IV Diagnosis: Chronic obstructive pulmonary disease, unspecified[ICD10: J44.9] Diagnosis: Essential (primary) hypertension[ICD10: I10] Diagnosis: Other fatigue[ICD10: R53.83] [facility] CPT-4: 75666 01/01/2017 ([id number]) Miscellaneous no charge Diagnosis: Essential (primary) hypertension[ICD10: I10] Pebblse Burden MD, [facility] CPT-4: 55858 12/20/2016 ([id number]) 05710 EST. PATIENT, LEVEL IV Diagnosis: Essential (primary) hypertension[ICD10: I10] Diagnosis: Major depressive disorder, recurrent, mild[ICD10: F33.0] Diagnosis: Headache[ICD10: R51] Diagnosis: Other fatigue[ICD10: R53.83] Kim Burden MD, [facility] CPT-4: 86270 12/11/2016 ([id number]) 46604 EST. PATIENT, LEVEL IV Diagnosis: Essential (primary) hypertension[ICD10: I10] Diagnosis: Other allergic rhinitis[ICD10: J30.89] Diagnosis: Gastro-esophageal reflux disease without esophagitis[ICD10: K21.9] Kim Burden MD, [facility] CPT-4: 13615 10/15/2016 ([id number]) 98018 EST. 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 PATIENT, LEVEL III Diagnosis: Pain in left hip[ICD10: M25.552] Diagnosis: Acute laryngopharyngitis[ICD10: J06.0] Kim Burden MD, [facility] CPT-4: 65149 05/15/2016 ([id number]) 83998 EST. PATIENT, LEVEL III Diagnosis: Fracture of unspecified parts of lumbosacral spine and pelvis, initial encounter for closed fracture[ICD10: S32.9XXA] Diagnosis: Essential (primary) hypertension[ICD10: I10] Kim Burden MD [facility] CPT-4: 75951 04/23/2016 [id number] EST. PATIENT, LEVEL IV Diagnosis: Acute laryngopharyngitis[ICD10: J06.0] Diagnosis: Other allergic rhinitis[ICD10: J30.89] Pebbles Burden MD, [facility] CPT- 4: 12142 03/14/2016 33930 EST. PATIENT, LEVEL IV Diagnosis: Dysuria[ICD10: R30.0] Diagnosis: Left lower quadrant pain[ICD10: R10.32] Pebbles Burden MD, [facility] CPT-4: 36105 02/19/2016 ([id number]) 04420 EST. PATIENT, LEVEL IV Diagnosis: Essential (primary) hypertension[ICD10: I10] Diagnosis: Gastro-esophageal reflux disease without esophagitis[ICD10: K21.9] Diagnosis: Major depressive disorder, recurrent, mild[ICD10: F33.0] Kim Burden MD, [facility] CPT-4: 92367 12/19/2015 ([id number]) 68847 EST. PATIENT, LEVEL IV Diagnosis: ESSENTIAL HYPERTENSION[ICD9: 401.9] Diagnosis: ACUTE URI[ICD9: 465.9] Kim Burden MD, [facility] CPT-4: 21744 03/06/2015 ([id number]) OFFICE VISIT, NEW - LEVEL 4 Diagnosis: ESOPHAGEAL REFLUX[ICD9: 530.81] Diagnosis: ESSENTIAL HYPERTENSION[ICD9: 401.9] Diagnosis: COPD (chronic obstructive pulmonary disease)[ICD9: 496] Diagnosis: ALLERGIC RHINITIS[ICD9: 477.9] [facility] CPT-4: 53163 02/07/2015 Plan of Care Planned Activity Notes [...] and swallow. 04/21/2018 Appointment: Kim Burden WPtel: [address] [place], [place] [id number] (15 min) Moderate 04/21/2018 Patient Education: Patient [...] Appointment: Mallorie Wetzel WPtel: [phone] [phone] [place] (30 min) Complex 04/09/2018 Patient [...] acute changes. 01/19/2018 Appointment: Kim Burden WPtel: [facility] [place] (15 min) Moderate 01/19/2018 Patient Education: Patient Medication Summary Completed 01/19/2018 Appointment: Kim Burden WPtel: [facility] (15 min) Moderate 01/14/2018 Visit [...] care surrogate. 12/18/2017 Appointment: [facility]ebbles Lund [phone] [facility] - [facility] 12/18/2017 Patient Education: [...] home. 10/16/2017 App[facility]ment: [phone] ([place] min) Moderate 10/16/2017 Patient Education: Patient [...] concerns. 09/03/2017 Appointment: Pebbles Lund WPtel: [phone] [facility] [place] (15 min) Moderate 09/03/2017 Patient Education: Patient Medication Summary Completed 09/03/2017 Appointment: Kim Burden WPtel: [phone] [facility] [place] (15 min) Moderate 08/11/2017 Appointment: Kim Burden WPtel: [phone] [facility] [place] (15 min) Moderate 08/11/2017 [...] treatment. 07/31/2017 Appointment: [phone] [place] [place] (15 min) Moderate 07/31/2017 Patient Education: Patient Medication Summary Completed 07/31/2017 Appointment: Nurse Visit 07/18/2017 Patient Education: Patient Medication Summary Completed 07/18/2017 Patient Education: Patient Medication Summary Completed 07/18/2017 Appointment: Kim Bur[phone] [place] [place] (15 min) Moderate 06/30/2017 Visit Plan: Effusion left knee-fall 2 weeks ago-recommend compression of joint and refer to Ortho for evaluation and treatment-will refer to Dr Pryor/Quinton Mccormick. Patient verbalized understanding of plan. 06/16/2017 Appointment: Mallorie Wetzel WPtel: [phone] (30 min) Complex 06/16/2017 Patient Education: [...] active. 05/28/2017 Appointment: Kim Burden WPtel: [phone] [facility] (15 min) Moderate 05/28/2017 Patient Education: Patient [...] acute changes. 05/05/2017 Appointment: Kim Burden WPtel: [facility] [place] (15 min) Moderate 05/05/2017 Patient Education: Patient [...] current medications. 03/13/2017 Appointment: [phone] [place] (15 min) Moderate 03/13/2017 Patient Education: Patient [...] worsening. 02/10/2017 Appointment: Kim Burden WPtel: [phone] [facility] (15 min) Moderate 02/10/2017 Patient Education: Patient [...] improving. 01/14/2017 Appointment: Kim Burden [phone] [place] (15 min) Moderate 01/14/2017 Patient Education: Patient [...] [phone] [facility] - Annual Wellness [...] time. 12/11/2016 Appointment: Kim Burden WPtel: [phone] [facility] [place] (15 min) Moderate 12/11/2016 Patient Education: Patient Medication Summary Completed 12/11/2016 Appointment: Mallorie Wetzel WPtel: [phone] [phone] [place] (30 min) Complex 12/10/2016 Visit [...] not improving. 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 07/17/2016 Appointment: Kim Burden WPtel: [facility] [place] (15 min) Moderate 07/17/2016 Patient Education: Patient Medication Summary Completed 07/17/2016 Appointment: Kim Burden WPtel: [facility] (15 min) Moderate 06/10/2016 Visit Plan: Hip pain - persistent but improving - continue with current treatment plan. Pt to call if her symptoms are not improving or if her hip pain worsens. URI symptoms - supportive care, use otc allergy medications. 05/15/2016 Appointment: Kim Burden WPtel: [phone] [facility] (15 min) Moderate 05/15/2016 Patient [...] improving. 04/23/2016 Appointment: Kim Burden WPtel: [phone] [facility] (15 min) Moderate 04/23/2016 Patient Education: Patient Medication Summary Completed 04/23/2016 Patient Education: Hypertension Completed 04/23/2016 Care Plan: X-RAY EXAM OF ABDOMEN LOINC : 17728-2 Pending 03/18/2016 Visit Plan: URI - Pt [...] allergy spray. 03/14/2016 Appointment: Pebbles Lund [facility]Ptel[phone] (30 min) Complex 03/14/2016 Patient Education: Patient Medication Summary Completed 03/14/2016 Patient Education: Patient Medication Summary Completed 02/29/2016 Visit Plan: Flank pain - pt is currently being treated for UTI, but is having continued left flank pain - will get KUB - pt is to notify clinic if symptoms do not improve, or with any concerns. 02/19/2016 Appointment: Pebbles Lund [facility]Ptel[phone] (30 min) Complex 02/19/2016 Patient Education: Patient Medication Summary Completed 02/19/2016 Appointment: Kim Burden WPtel: [phone] [facility] (15 min) Moderate 01/22/2016 Visit [...] improving. 12/19/2015 Appointment: Kim Bur[phone] [place] (15 min) Moderate 12/19/2015 Patient Education: Patient [...] RX. 03/06/2015 Appointment: Kim Burden [phone] [place] Follow up 03/06/2015 Patient Education: Patient Medication [...] Completed 02/07/2015 Care Plan: SCREENINGMAMMOGRAPHYDIGITAL LOINC : 31859-4 Ordered 02/07/2015 Care Plan: COMPLETE CBC AUTOMATED LOINC : 71085-0 Ordered 02/07/2015 Instructions Comment . Dehydration, palpitations, [...] to help decrease GI upset./loose stools - [facility] or [facility] . Hypertension - well controlled - continue [...] care surrogate. TAKE WITH FOOD AND PROBIOTIC (Affine OR adQuota) . URI - Pt advised to increase [...]
--- OUTSIDE RECORDS SUMMARY | 2019-04-06 09:56 | XMS REPORT | CCD ---
Author Author Mallorie Wetzel MD, [facility] Address [address] [place] [address] Phone Care Team Providers Care Fisheries Manager Name Role Phone PP Unavailable CCM Unavailable Summary Purpose Interface Exchange Insurance Providers Payer name Policy type / Coverage type Covered constitution party ID Effective Begin Date Effective End Date WPS Medicare Part B Medicare Part B [id number] Unknown AETNA Medicare Part B [id number] Unknown Family history Brother Diagnosis Age At [...] 02/07/2015 Employment Unknown Currently employed works at [employer] 02/07/[address]: 2443506 Quit over 10 years ago 199302/07/2015 Number [...] Codes Condition Status Onset Date Resolved Date Candidal stomatitis ICD- 9: 112.0 ICD-10: B37.0 [...] Problems Condition Codes Effective Dates Condition Status Candidal stomatitis ICD- 9: 112.0 ICD-10: B37.0 [...] Start Date Stop Date Status Fill Instructions fluticasone 50 mcg/actuation nasal spray,suspension RxNorm: 0119692 1 [place] NASAL BID 05/19/2018 05/13/2019 Active fluticasone 50 mcg/actuation nasal spray,suspension RxNorm: 4530531 1 [place] NASAL BID 05/18/2018 05/18/2018 Inactive fluticasone 50 mcg/actuation nasal spray,suspension RxNorm: 8550909 1 [place] NASAL BID 05/15/2018 05/17/2018 Inactive fluticasone 50 mcg/actuation nasal spray,suspension RxNorm: 6449331 1 [place] NASAL BID 05/15/2018 05/14/2018 Inactive nystatin 100,000 unit/mL oral suspension RxNorm: 924813 5 Milliliter(s) PO QID 04/21/2018 04/30/2018 Inactive Breo Ellipta 100 mcg-25 mcg/dose powder for inhalation RxNorm: 9672699 1 INH daily 04/09/2018 04/03/2019 Active please call patient with jaramillo before sending prednisone 20 mg tablet RxNorm: 541198 1 Tablet(s) PO BID 04/09/2018 04/13/2018 Inactive start tomorrow Kenalog 40 mg/mL suspension for injection RxNorm: 9051806 1.5 Milliliter(s) Inj 04/09/2018 04/09/2018 Inactive Breo Ellipta 100 mcg-25 mcg/dose powder for inhalation RxNorm: 1487905 1 INH daily 04/09/2018 04/08/2018 Inactive alprazolam 1 mg tablet RxNorm: 845035 1 Tablet(s) PO TID 03/13/2018 12/07/2018 Active losartan 100 mg tablet RxNorm: 136375 TAKE 1 TABLET EVERY EVENING 03/02/2018 02/13/2021 Active Ventolin HFA 90 mcg/actuation aerosol inhaler RxNorm: 440055 2 INH Q4-6H as needed 12/29/2017 02/26/2018 Inactive Ventolin HFA 90 mcg/actuation aerosol inhaler RxNorm: 879484 2 INH Q4-6H as needed 12/29/2017 12/28/2017 Inactive Diflucan 150 mg tablet RxNorm: 905439 1 Tablet(s) PO daily 11/03/2017 11/05/2017 Inactive please call pt to let herknow when to pick- up the med Keflex 500 mg capsule RxNorm: 862608 1 Capsule(s) PO TID 10/23/2017 10/29/2017 Inactive Kenalog 40 mg/mL suspension for injection RxNorm: 9429137 1 Milliliter(s) Inj 10/16/2017 10/16/2017 Inactive ibuprofen 800 mg tablet RxNorm: 496584 TAKE 1 TABLET THREE TIMES DAILY 10/15/2017 01/07/2019 Active Lexapro 10 mg tablet RxNorm: 753089 TAKE 1 TABLET EVERY DAY 10/15/2017 10/09/2018 Active hydrocodone 5 mg-acetaminophen 325 mg tablet RxNorm: 054035 1 Tablet(s) PO QID as needed 09/03/2017 No Stop Date Active omeprazole 20 mg capsule,delayed release RxNorm: 005203 1 Capsule(s) PO BID 09/02/2017 08/27/2018 Active alprazolam 1 mg tablet RxNorm: 764046 1 Tablet(s) PO TID 09/02/2017 03/12/2018 Inactive metoprolol tartrate 50 mg tablet RxNorm: 449657 1/2 Tablet(s) PO BID 06/26/2017 06/20/2018 Active omeprazole 20 mg capsule,delayed release RxNorm: 842796 1 Capsule(s) PO BID 06/05/2017 09/01/2017 Inactive omeprazole 20 mg capsule,delayed release RxNorm: 821756 1 Capsule(s) PO BID 05/28/2017 06/04/2017 Inactive omeprazole 20 mg capsule,delayed release RxNorm: 236386 1 Capsule(s) PO QPM 05/27/2017 05/27/2017 Inactive Breo Ellipta 100 mcg-25 mcg/dose powder for inhalation RxNorm: 3729128 1 INH daily 05/05/2017 04/08/2018 Inactive alprazolam 1 mg tablet RxNorm: 617399 1 Tablet(s) PO TID 02/10/2017 08/07/2017 Inactive metoprolol tartrate 50 mg tablet RxNorm: 609046 1/2 Tablet(s) PO BID 02/10/2017 06/25/2017 Inactive losartan 100 mg tablet RxNorm: 285977 1 Tablet(s) PO QPM 02/10/2017 02/04/2018 Inactive losartan 50 mg tablet RxNorm: 144006 2 Tablet(s) PO QPM 01/23/2017 02/09/2017 Inactive Diflucan 150 mg tablet RxNorm: 081137 1 Tablet(s) PO daily 01/20/2017 01/22/2017 Inactive please call pt to let herknow when to pick- up the med Diflucan 150 mg tablet RxNorm: 377596 1 Tablet(s) PO daily 01/20/2017 01/19/2017 Inactive please call pt to let herknow when to pick- up the med losartan 50 mg tablet RxNorm: 970267 1 Tablet(s) PO QPM 01/14/2017 01/22/2017 Inactive Cipro 500 mg tablet RxNorm: 940019 1 Tablet(s) PO BID 01/08/2017 01/17/2017 Inactive Cipro 500 mg tablet RxNorm: 598268 1 Tablet(s) PO BID 01/08/2017 01/07/2017 Inactive Lexapro 10 mg tablet RxNorm: 342104 TAKE 1 TABLET EVERY DAY 12/20/2016 10/14/2017 Inactive metoprolol tartrate 50 mg tablet RxNorm: 645813 1 Tablet(s) PO in the morning and 1.5 pill at night 12/11/2016 01/13/2017 Inactive spironolactone 25 mg tablet RxNorm: 207861 TAKE 1 TABLET EVERY DAY 11/04/2016 07/31/2017 Inactive metoprolol tartrate 50 mg tablet RxNorm: 189111 TAKE 1 TABLET TWICE DAILY 10/29/2016 12/10/2016 Inactive ibuprofen 800 mg tablet RxNorm: 838337 TAKE 1 TABLET THREE TIMES DAILY 10/21/2016 10/14/2017 Inactive Astepro 0.15 % (205.5 mcg) nasal spray RxNorm: 1603353 1 [place] NASAL BID 10/15/2016 10/09/2017 Inactive Astepro 0.15 % (205.5 mcg) nasal spray RxNorm: 8077047 1 [place] NASAL BID 10/15/2016 10/14/2016 Inactive Astepro 0.15 % (205.5 mcg) nasal spray RxNorm: 8840899 1 [place] NASAL BID 10/15/2016 10/14/2016 Inactive omeprazole 20 mg capsule,delayed release RxNorm: 789949 1 Capsule(s) PO QPM 10/15/2016 05/26/2017 Inactive omeprazole 20 mg capsule,delayed release RxNorm: 066067 1 Capsule(s) QPM 10/15/2016 10/14/2016 Inactive omeprazole 20 mg capsule,delayed release RxNorm: 276001 TAKE 1 CAPSULE TWICE DAILY 09/02/2016 10/14/2016 Inactive Lexapro 10 mg tablet RxNorm: 867518 TAKE 1 TABLET EVERY DAY 08/21/2016 12/19/2016 Inactive calcitonin (salmon) 200 unit/actuation nasal spray RxNorm: 502581 1 [place] NASAL daily ONE SPRAY PER ONE NOSTRIL DAILY- ALTERNATE NOSTRILS DAILY 05/31/2016 05/30/2016 Inactive She will do this for 3 months- If she wants to do a 3 month supply at one time she can without refill calcitonin (salmon) 200 unit/actuation nasal spray RxNorm: 022960 1 [place] NASAL daily ONE SPRAY PER ONE NOSTRIL DAILY- ALTERNATE NOSTRILS DAILY 05/31/2016 07/30/2016 Inactive x3 months- no refills Forteo 20 mcg/dose (600 mcg/2.4 mL) subcutaneous pen injector RxNorm: 5698582 1 injection SQ daily 05/22/2016 05/30/2016 Inactive call pt with jaramillo first Forteo 20 mcg/dose (600 mcg/2.4 mL) subcutaneous pen injector RxNorm: 2315706 1 injection SQ daily 05/22/2016 05/21/2016 Inactive Prolia 60 mg/mL subcutaneous syringe RxNorm: 847823 1 Milliliter(s) SQ every 6 months 05/13/2016 No Stop Date Active Please check jaramillo through insurance and let me know- Thanks! Mary Ellen alprazolam 1 mg tablet RxNorm: 248627 1 Tablet(s) PO TID 05/08/2016 11/01/2016 Inactive Lexapro 10 mg tablet RxNorm: 641815 TAKE 1 TABLET EVERY DAY 04/22/2016 08/20/2016 Inactive spironolactone 25 mg tablet RxNorm: 577348 TAKE 1 TABLET EVERY DAY 04/22/2016 11/03/2016 Inactive Diflucan 150 mg tablet RxNorm: 906748 1 Tablet(s) PO daily 03/20/2016 04/14/2016 Inactive Diflucan 150 mg tablet RxNorm: 779959 1 Tablet(s) PO daily 03/20/2016 03/19/2016 Inactive Augmentin 500 mg-125 mg tablet RxNorm: 161687 1 Tablet(s) PO TID 03/14/2016 03/23/2016 Inactive omeprazole 20 mg capsule,delayed release RxNorm: 258115 1 Tablet(s) PO BID 03/06/2016 09/01/2016 Inactive [SAVINGS FOR NON-COVERED DRUGS -- BIN:995016, PCN: ASPROD1, Group: XXXXX, ID# XXXXXXX, Questions: . THIS IS NOT INSURANCE.] amlodipine 5 mg tablet RxNorm: 866206 TAKE 1 TABLET EVERY DAY 03/01/2016 04/22/2016 Inactive omeprazole 20 mg tablet,delayed release RxNorm: 542573 1 Tablet(s) PO BID 02/27/2016 03/05/2016 Inactive [SAVINGS FOR NON-COVERED DRUGS -- BIN:872315, PCN: ASPROD1, Group: XXXXX, ID# XXXXXXX, Questions: . THIS IS NOT INSURANCE.] spironolactone 25 mg tablet RxNorm: 587717 TAKE 1 TABLET EVERY DAY 12/21/2015 04/21/2016 Inactive Lexapro 10 mg tablet RxNorm: 971934 1 Tablet(s) PO daily 12/19/2015 01/01/2016 Inactive Lexapro 10 mg tablet RxNorm: 050103 1 Tablet(s) PO daily 12/19/2015 02/09/2017 Inactive Lexapro 10 mg tablet RxNorm: 262293 1 Tablet(s) PO daily 12/19/2015 12/18/2015 Inactive alprazolam 1 mg tablet RxNorm: 611931 1 Tablet(s) PO TID 12/01/2015 02/28/2016 Inactive ibuprofen 800 mg tablet RxNorm: 703321 1 Tablet(s) PO TID 10/26/2015 10/20/2016 Inactive alprazolam 1 mg tablet RxNorm: 301979 1 Tablet(s) PO TID 08/23/2015 11/19/2015 Inactive spironolactone 25 mg tablet RxNorm: 605874 1 Tablet(s) PO daily 08/21/2015 12/20/2015 Inactive metoprolol tartrate 50 mg tablet RxNorm: 006301 1 Tablet(s) PO BID 08/10/2015 08/03/2016 Inactive [SAVINGS FOR NON-COVERED DRUGS -- BIN:163863, PCN: ASPROD1, Group: XXXXX, ID# XXXXXXX, Questions: . THIS IS NOT INSURANCE.] omeprazole 20 mg tablet,delayed release RxNorm: 623305 1 Tablet(s) PO BID 08/07/2015 02/02/2016 Inactive [SAVINGS FOR NON-COVERED DRUGS -- BIN:538495, PCN: ASPROD1, Group: XXXXX, ID# XXXXXXX, Questions: . THIS IS NOT INSURANCE.] Keflex 500 mg capsule RxNorm: 125087 1 Capsule(s) PO TID 07/10/2015 07/16/2015 Inactive alprazolam 1 mg tablet RxNorm: 120244 1 Tablet(s) PO TID 06/02/2015 08/22/2015 Inactive alprazolam 1 mg tablet RxNorm: 113846 1 Tablet(s) PO TID 03/29/2015 06/01/2015 Inactive amlodipine 5 mg tablet RxNorm: 983880 1 Tablet(s) PO daily 03/06/2015 02/29/2016 Inactive Nasonex 50 mcg/actuation [place] RxNorm: 595785 1 [place] NASAL daily 03/03/2015 03/02/2015 Inactive Keflex 500 mg capsule RxNorm: 551769 1 Capsule(s) PO TID 03/03/2015 03/02/2015 Inactive Nasonex 50 mcg/actuation Randolph RxNorm: 124136 1 [place] NASAL daily 03/03/2015 05/01/2015 Inactive Keflex 500 mg capsule RxNorm: 900266 1 Capsule(s) PO TID 03/03/2015 03/05/2015 Inactive Carafate 1 gram tablet RxNorm: 031291 TAKE 1 TABLET FOUR TIMES DAILY 30 MINUTES BEFORE MEALS AND AT BEDTIME 02/28/2015 12/18/2015 Inactive Kenalog 40 mg/mL suspension for injection RxNorm: 6186947 Milliliter(s) Inj 02/07/2015 02/07/2015 Inactive [SAVINGS FOR NON-COVERED DRUGS -- BIN:998570, PCN: ASPROD1, Group: XXXXX, ID# XXXXXXX, Questions: . THIS IS NOT INSURANCE.] metoprolol tartrate 50 mg tablet RxNorm: 942994 1 Tablet(s) PO BID 02/07/2015 08/09/2015 Inactive [SAVINGS FOR NON-COVERED DRUGS -- BIN:264651, PCN: ASPROD1, Group: XXXXX, ID# XXXXXXX, Questions: . THIS IS NOT INSURANCE.] Carafate 1 gram tablet RxNorm: 568425 1 Tablet(s) PO QID 02/07/2015 02/27/2015 Inactive 30 min before meals and at bedtime omeprazole 20 mg tablet,delayed release RxNorm: 209914 1 Tablet(s) PO BID 02/07/2015 08/05/2015 Inactive [SAVINGS FOR NON-COVERED DRUGS -- BIN:311067, PCN: ASPROD1, Group: XXXXX, ID# XXXXXXX, Questions: . THIS IS NOT INSURANCE.] Vitamin D3 2,000 unit tablet RxNorm: 123985 1 Tablet(s) PO daily No Start Date Active aspirin 81 mg tablet RxNorm: 078400 1 Tablet(s) PO daily No Start Date Active loratadine 10 mg tablet RxNorm: 876765 1 Tablet(s) PO daily No Start Date Active amlodipine 2.5 mg tablet RxNorm: 350236 1 Tablet(s) PO daily No Start Date 03/05/2015 Inactive spironolactone 25 mg tablet RxNorm: 604405 1 Tablet(s) PO daily No Start Date 08/20/2015 Inactive cetirizine 10 mg tablet RxNorm: 2955579 1 Tablet(s) PO daily No Start Date 12/18/2015 Inactive metoprolol tartrate 50 mg tablet RxNorm: 377820 1 Tablet(s) PO daily No Start Date 02/06/2015 Inactive ipratropium bromide 0.06 % nasal spray RxNorm: 020519 nasal No Start Date 12/18/2015 Inactive alprazolam 1 mg tablet RxNorm: 696336 1 Tablet(s) PO TID No Start Date 03/28/2015 Inactive Prolia 60 mg/mL subcutaneous syringe RxNorm: 218846 1 Milliliter(s) SQ every 6 months No Start Date 05/12/2016 Inactive Please check jaramillo through insurance and let me know- Thanks! Mary Ellen ibuprofen 800 mg tablet RxNorm: 733817 1 Tablet(s) PO TID No Start Date 10/25/2015 Inactive Protonix 40 mg tablet,delayed release RxNorm: 033617 1 Tablet(s) PO daily No Start Date 03/05/2015 Inactive Medication Administered Medication Codes Instructions Start Date Status Kenalog 40 mg/mL suspension for injection RxNorm: 7956892 1.5Milliliter 04/09/2018 No longer Active Kenalog 40 mg/mL suspension for injection RxNorm: 4024012 1Milliliter 10/16/2017 No longer Active Kenalog 40 mg/mL suspension for injection RxNorm: 0969304 Milliliter 02/07/2015 No longer Active Immunizations Vaccine Codes Date Status Pneumococcal (Adult) CVX: 33 08/28/2016 completed Assessments Condition Codes Effective Dates Candidal stomatitis ICD-10: B37.0 ICD-9: 112.0 04/21/2018 [...] Item Item Code Result Date Comp Metabolic Msh278 NA 138 mEq/L 09/03/2017 Comp Metabolic Qnl606 K 3.9 mEq/L 09/03/2017 Comp Metabolic Ovy018 CL 102 mEq/L 09/03/2017 Comp Metabolic Fmx473 CO2 32.0 mEq/L 09/03/2017 Comp Metabolic Cvc439 ANION GAP 8 09/03/2017 Comp Metabolic Amr689 GLUCOSE 89 mg/dL 09/03/2017 Comp Metabolic Bcg810 Creat 0.6 mg/dL 09/03/2017 Comp Metabolic Prv524 eGFR 103 ml/min/1.73m2 09/03/2017 Comp Metabolic Ngx677 BUN 10 mg/dL 09/03/2017 Comp Metabolic Hnt143 B/C Ratio 16.7 Ratio 09/03/2017 Comp Metabolic Qbn275 CALCIUM 8.9 mg/dL 09/03/2017 Comp Metabolic Ztr285 ALK PHOS 141 U/L 09/03/2017 Comp Metabolic Gqc994 AST(SGOT) 12 U/L 09/03/2017 Comp Metabolic Ooa928 ALT(SGPT) 7 U/L 09/03/2017 Comp Metabolic Cmx382 BILI T 0.6 mg/dL 09/03/2017 Comp Metabolic Mkx285 ALBUMIN 3.6 g/dL 09/03/2017 Comp Metabolic Yly438 TPRO 6.6 g/dL 09/03/2017 Comp Metabolic Thy154 GLOB 3.0 g/dL 09/03/2017 Comp Metabolic Taq495 A/G Ratio 1.2 Ratio 09/03/2017 Comp Metabolic Thw319 Osmo 274 mOsmo 09/03/2017 Hepatic Vmg212 ALBUMIN 3.7 g/dL 08/11/2017 Hepatic Jeo570 TPRO 7.0 g/dL 08/11/2017 Hepatic Pen376 GLOB 3.3 g/dL 08/11/2017 Hepatic Qtf094 A/G Ratio 1.1 Ratio 08/11/2017 Hepatic Kyv266 ALK PHOS 85 U/L 08/11/2017 Hepatic Qfx588 ALT(SGPT) 11 U/L 08/11/2017 Hepatic Orm184 AST(SGOT) 16 U/L 08/11/2017 Hepatic Xyw744 BILI T 0.6 mg/dL 08/11/2017 Hepatic Tam692 BILI D 0.1 mg/dL 08/11/2017 Hepatic Ppb952 BILI I 0.5 mg/dL 08/11/2017 Hepatic Izx598 ALBUMIN 3.1 g/dL 07/18/2017 Hepatic Djd434 TPRO 5.9 g/dL 07/18/2017 Hepatic Nzx547 GLOB 2.8 g/dL 07/18/2017 Hepatic Ynh383 A/G Ratio 1.1 Ratio 07/18/2017 Hepatic Hci731 ALK PHOS 123 U/L 07/18/2017 Hepatic Gdn471 ALT(SGPT) 210 U/L 07/18/2017 Hepatic Eig684 AST(SGOT) 71 U/L 07/18/2017 Hepatic Ins497 BILI T 1.1 mg/dL 07/18/2017 Hepatic Jff766 BILI D 0.4 mg/dL 07/18/2017 Hepatic Rxt559 BILI I 0.7 mg/dL 07/18/2017 Cbc With [...] 24.5 % 02/25/2017 Cbc With Differential Ord2 Bell% 7.6 % 02/25/2017 Cbc With Differential Ord2 MCH 32.4 pg 02/25/2017 Cbc With Differential Ord2 Eos% 7.4 % 02/25/2017 Cbc With Differential Ord2 MCHC 32.3 pg 02/25/2017 Cbc With Differential Ord2 Baso% 0.6 % 02/25/2017 Cbc With Differential Ord2 PLT 145 K/ul 02/25/2017 Cbc With Differential Ord2 RDW 12.6 % 02/25/2017 Cbc With Differential Ord2 Neut ABS# 2.97 K/ul 02/25/2017 Cbc With Differential Ord2 Lymph ABS# 1.22 K/ul 02/25/2017 Cbc With Differential Ord2 Bell ABS# 0.4 K/ul 02/25/2017 Cbc With Differential [...] 32.3 pg 01/02/2017 Cbc With Differential Ord2 Bell% 7.8 % 01/02/2017 Cbc With Differential Ord2 [...] 0.90 K/ul 01/02/2017 Cbc With Differential Ord2 Bell ABS# 0.4 K/ul 01/02/2017 Cbc With Differential Ord2 Eos ABS# 0.3 K/ul 01/02/2017 Cbc With Differential Ord2 Baso ABS# 0.0 K/ul 01/02/2017 Tsh Ord6 hTSH II 1.19 uIU/mL 12/13/2016 [...] 31.9 pg 12/13/2016 Cbc With Differential Ord2 Bell% 9.9 % 12/13/2016 Cbc With Differential Ord2 Eos% 11.5 % 12/13/2016 Cbc With Differential Ord2 MCHC 32.8 pg 12/13/2016 Cbc With Differential Ord2 Baso% 0.5 % 12/13/2016 Cbc With Differential Ord2 PLT 192 K/ul 12/13/2016 Cbc With Differential Ord2 Neut ABS# 2.08 K/ul 12/13/2016 Cbc With Differential Ord2 RDW 13.1 % 12/13/2016 Cbc With Differential Ord2 Lymph ABS# 1.17 K/ul 12/13/2016 Cbc With Differential Ord2 Bell ABS# 0.4 K/ul 12/13/2016 Cbc With Differential Ord2 Eos ABS# 0.5 K/ul 12/13/2016 Cbc With Differential Ord2 Baso ABS# 0.0 K/ul 12/13/2016 Comp Metabolic Swl276 NA 137 mEq/L 12/13/2016 Comp Metabolic Sfu222 K 4.8 mEq/L 12/13/2016 Comp Metabolic Rpx107 CL 101 mEq/L 12/13/2016 Comp Metabolic Zca167 CO2 32.0 mEq/L 12/13/2016 Comp Metabolic Nba422 ANION GAP 9 12/13/2016 Comp Metabolic Gls329 GLUCOSE 95 mg/dL 12/13/2016 Comp Metabolic Lly825 Creat 0.8 mg/dL 12/13/2016 Comp Metabolic Gnh517 eGFR 79 ml/min/1.73m2 12/13/2016 Comp Metabolic Nlt714 BUN 15 mg/dL 12/13/2016 Comp Metabolic Yzy022 B/C Ratio 19.7 Ratio 12/13/2016 Comp Metabolic Dih138 CALCIUM 9.3 mg/dL 12/13/2016 Comp Metabolic Tmx781 ALK PHOS 63 U/L 12/13/2016 Comp Metabolic Mju421 AST(SGOT) 15 U/L 12/13/2016 Comp Metabolic Sne599 ALT(SGPT) 10 U/L 12/13/2016 Comp Metabolic Hiv613 BILI T 0.7 mg/dL 12/13/2016 Comp Metabolic Swf835 ALBUMIN 3.7 g/dL 12/13/2016 Comp Metabolic Kem254 TPRO 6.8 g/dL 12/13/2016 Comp Metabolic Qqc159 GLOB 3.2 g/dL 12/13/2016 Comp Metabolic Thw325 A/G Ratio 1.2 Ratio 12/13/2016 Comp Metabolic Uxj721 Osmo 274 mOsmo 12/13/2016 Lipid Ord30 CHOL [...] 32.1 pg 12/19/2015 Cbc With Differential Ord2 Bell% 5.9 % 12/19/2015 Cbc With Differential Ord2 Eos% 3.3 % 12/19/2015 Cbc With Differential Ord2 MCHC 33.0 pg 12/19/2015 Cbc With Differential Ord2 Baso% 0.2 % 12/19/2015 Cbc With Differential Ord2 PLT 199 K/ul 12/19/2015 Cbc With Differential Ord2 Neut ABS# 3.65 K/ul 12/19/2015 Cbc With Differential Ord2 RDW 13.5 % 12/19/2015 Cbc With Differential Ord2 Lymph ABS# 1.53 K/ul 12/19/2015 Cbc With Differential Ord2 Bell ABS# 0.3 K/ul 12/19/2015 Cbc With Differential [...] Ord30 C/HDL 2.8 Ratio 12/19/2015 Comp Metabolic Nux605 NA 135 mEq/L 12/19/2015 Comp Metabolic Wgp003 K 4.1 mEq/L 12/19/2015 Comp Metabolic Ckt787 CL 99 mEq/L 12/19/2015 Comp Metabolic Vit432 CO2 27.0 mEq/L 12/19/2015 Comp Metabolic Qhv818 ANION GAP 13 12/19/2015 Comp Metabolic Dnh245 GLUCOSE 83 mg/dL 12/19/2015 Comp Metabolic Ffy299 Creat 0.7 mg/dL 12/19/2015 Comp Metabolic Yqv194 eGFR 88 ml/min/1.73m2 12/19/2015 Comp Metabolic Kwx940 BUN 12 mg/dL 12/19/2015 Comp Metabolic Toc884 B/C Ratio 17.4 Ratio 12/19/2015 Comp Metabolic Idu360 CALCIUM 9.0 mg/dL 12/19/2015 Comp Metabolic Osm353 ALK PHOS 68 U/L 12/19/2015 Comp Metabolic Qoo758 AST(SGOT) 16 U/L 12/19/2015 Comp Metabolic Uol175 ALT(SGPT) 13 U/L 12/19/2015 Comp Metabolic Gkj864 BILI T 0.7 mg/dL 12/19/2015 Comp Metabolic Cvd678 ALBUMIN 4.0 g/dL 12/19/2015 Comp Metabolic Hqy329 TPRO 7.0 g/dL 12/19/2015 Comp Metabolic Mtq916 GLOB 3.0 g/dL 12/19/2015 Comp Metabolic Uhj187 A/G Ratio 1.3 Ratio 12/19/2015 Comp Metabolic Xjb487 Osmo 269 mOsmo 12/19/2015 Review of Systems [...] Date TRIAMCINOLONE ACET INJ NOS CPT-4: J3301 04/09/2018 PPPS, SUBSEQ VISIT CPT- 4: G0439 12/18/2017 TRIAMCINOLONE ACET INJ NOS CPT-4: J3301 10/16/2017 DRAIN/INJECT JOINT/BURSA CPT-4: 88555 10/16/2017 PRESCRIP TRANSMIT VIA ERX SY CPT-4: G8553 05/05/2017 PRESCRIP TRANSMIT VIA ERX SY CPT-4: G8553 01/14/2017 PPPS, SUBSEQ VISIT CPT- 4: G0439 12/12/2016 PRESCRIP TRANSMIT VIA ERX SY CPT-4: G8553 10/15/2016 ADMIN PNEUMOCOCCAL VACCINE SNOMED CT: 89384427 CPT-4: G0009 08/28/2016 Pneumococcal Polysaccharide Vaccine, 23-Valent, Ad CPT-4: 35260 08/28/2016 PRESCRIP TRANSMIT VIA ERX SY CPT-4: G8553 03/14/2016 PRESCRIP TRANSMIT VIA ERX SY CPT-4: G8553 12/19/2015 THER/PROPH/DIAG INJ SC/IM CPT-4: 80004 02/07/2015 TRIAMCINOLONE ACET INJ NOS CPT-4: J3301 02/07/2015 Vital Signs Date Vital 04/21/2018 Blood Pressure 1: 108/70 Code: 8480-6 BMI: 24.4 Code: 35154-2 Heart Rate 1: 62 bpm Height: 5'1" SpO2: 94% Weight: 129 lbs 04/09/2018 Blood Pressure 1: 138/86 Code: 8480-6 BMI: 25.5 Code: 85330-6 Heart Rate 1: 64 bpm Height: 5'1" SpO2: 99% Temperature: 36.4 (C) / 97.5 (F) Weight: 135 lbs 01/19/2018 Blood Pressure 1: 128/76 Code: 8480-6 BMI: 25.9 Code: 68485-6 Heart Rate 1: 65 bpm Height: 5'1" SpO2: 98% Weight: 137 lbs 12/18/2017 Blood Pressure 1: 144/82 Code: 8480-6 BMI: 26.1 Code: 85051-6 Heart Rate 1: 57 bpm Height: 5'1" SpO2: 97% Waist Measure (cm): 74 cm Weight: 138 lbs 10/16/2017 Blood Pressure 1: 142/88 Code: 8480-6 BMI: 25.5 Code: 45174-6 Heart Rate 1: 63 bpm Height: 5'1" SpO2: 97% Weight: 135 lbs 09/03/2017 Blood Pressure 1: 144/90 Code: 8480-6 BMI: 26.3 Code: 64941-3 Heart Rate 1: 91 bpm Height: 5'1" SpO2: 96% Weight: 139 lbs 07/31/2017 Blood Pressure 1: 136/90 Code: 8480-6 BMI: 26.3 Code: 29521-4 Height: 5'1" Weight: 139 lbs 07/18/2017 Blood Pressure 1: 136/84 Code: 8480-6 06/16/2017 Blood Pressure 1: 136/84 Code: 8480-6 BMI: 26.5 Code: 31626-4 Heart Rate 1: 72 bpm Height: 5'1" SpO2: 97% Weight: 140 lbs 05/28/2017 Blood Pressure 1: 138/78 Code: 8480-6 BMI: 26.1 Code: 83438-5 Heart Rate 1: 70 bpm Height: 5'1" SpO2: 98% Weight: 138 lbs 05/05/2017 Blood Pressure 1: 140/86 Code: 8480-6 BMI: 25.3 Code: 71232-7 Heart Rate 1: 66 bpm Height: 5'1" SpO2: 99% Weight: 134 lbs 03/13/2017 Blood Pressure 1: 126/74 Code: 8480-6 BMI: 25.3 Code: 13029-7 Heart Rate 1: 73 bpm Height: 5'1" SpO2: 98% Weight: 134 lbs 02/10/2017 Blood Pressure 1: 148/88 Code: 8480-6 BMI: 25.9 Code: 16211-3 Heart Rate 1: 84 bpm Height: 5'1" SpO2: 97% Weight: 137 lbs 01/14/2017 Blood Pressure 1: 134/86 Code: 8480-6 BMI: 25.7 Code: 02355-3 Heart Rate 1: 83 bpm Height: 5'1" SpO2: 95% Weight: 136 lbs 01/07/2017 Blood Pressure 1: 136/88 Code: 8480-6 BMI: 25.1 Code: 30668-2 Heart Rate 1: 86 bpm Height: 5'1" SpO2: 94% Weight: 133 lbs 01/02/2017 Blood Pressure 1: 122/68 Code: 8480-6 Blood Pressure 2: 116/78 Code: 8480-6 01/01/2017 Blood Pressure 1: 90/52 Code: 8480-6 BMI: 25.1 Code: 49995- 5 Heart Rate 1: 86 bpm Height: 5'1" SpO2: 99% Weight: 133 lbs 12/20/2016 Blood Pressure 1: 120/76 Code: 8480-6 12/12/2016 Blood Pressure 1: 130/72 Code: 8480-6 BMI: 24.8 Code: 25070-1 Heart Rate 1: 62 bpm Height: 5'1" SpO2: 98% Waist Measure (cm): 79 cm Weight: 131 lbs 12/11/2016 Blood Pressure 1: 132/70 Code: 8480-6 BMI: 24.8 Code: 64772-8 Heart Rate 1: 60 bpm Height: 5'1" Weight: 131 lbs 10/15/2016 Blood Pressure 1: 108/66 Code: 8480-6 BMI: 24.8 Code: 21749-5 Heart Rate 1: 60 bpm Height: 5'1" Weight: 131 lbs 07/17/2016 Blood Pressure 1: 128/82 Code: 8480-6 BMI: 25.3 Code: 08287-5 Heart Rate 1: 50 bpm Height: 5'2" Weight: 136 lbs 05/15/2016 Blood Pressure 1: 108/70 Code: 8480-6 BMI: 23.4 Code: 72539-8 Heart Rate 1: 54 bpm Height: 5'2" SpO2: 96% Weight: 126 lbs 04/23/2016 Blood Pressure 1: 112/60 Code: 8480-6 BMI: 23.6 Code: 68875-6 Heart Rate 1: 92 bpm Height: 5'2" SpO2: 95% Weight: 127 lbs 03/14/2016 Blood Pressure 1: 118/74 Code: 8480-6 BMI: 24.0 Code: 10256-3 Heart Rate 1: 51 bpm Height: 5'2" SpO2: 94% Temperature: 36.8 (C) / 98.3 (F) Weight: 129 lbs 02/19/2016 Blood Pressure 1: 110/62 Code: 8480-6 BMI: 23.4 Code: 57972-3 Heart Rate 1: 74 bpm Height: 5'2" SpO2: 97% Weight: 126 lbs 12/19/2015 Blood Pressure 1: 108/74 Code: 8480-6 BMI: 23.6 Code: 90267-5 Heart Rate 1: 52 bpm Height: 5'2" Weight: 127 lbs 03/06/2015 Blood Pressure 1: 136/88 Code: 8480-6 Heart Rate 1: 64 bpm Weight: 129 lbs 02/07/2015 Blood Pressure 1: 142/90 Code: 8480-6 BMI: 24.5 Code: 86608-3 Heart Rate 1: 82 bpm Height: 5'2" [...] data Encounters Encounter Performer Location Codes Date ([id number]) [id number] EST. PATIENT, LEVEL IV Diagnosis: Essential (primary) hypertension[ICD10: I10] Diagnosis: Other emphysema[ICD10: J43.8] Diagnosis: Candidal stomatitis[ICD10: B37.0] Kim Burden MD, [facility] CPT- 4: 84764 04/21/2018 ([id number]) [id number] EST. PATIENT, LEVEL III Diagnosis: Chronic obstructive pulmonary disease with (acute) exacerbation[ICD10: J44.1] Mallorie Buredn MD, [facility] CPT-4: 58611 04/09/2018 ([id number]) [id number] EST. PATIENT, LEVEL IV Diagnosis: Essential (primary) hypertension[ICD10: I10] Diagnosis: Other emphysema[ICD10: J43.8] Kim Burden MD, [facility] CPT-4: 62770 01/19/2018 ([id number]) 68885 EST. PATIENT, LEVEL IV Diagnosis: Essential (primary) hypertension[ICD10: I10] Diagnosis: Other emphysema[ICD10: J43.8] Diagnosis: Dependence on supplemental oxygen[ICD10: Z99.81] Diagnosis: Hypoxemia[ICD10: R09.02] Diagnosis: Pain in left knee[ICD10: M25.562] Diagnosis: Effusion, left knee[ICD10: M25.462] Kim Burden MD, [facility] CPT- 4: 70636 10/16/2017 99385 EST. PATIENT, LEVEL III Diagnosis: Pain in thoracic spine[ICD10: M54.6] Pebbles Burden MD, [facility] CPT- 4: 89991 09/03/2017 ([id number]) 55152 EST. PATIENT, LEVEL III Diagnosis: Essential (primary) hypertension[ICD10: I10] Diagnosis: Other emphysema[ICD10: J43.8] Kim Burden MD, [facility] CPT-4: 34094 07/31/2017 ([id number]) Miscellaneous no charge Diagnosis: Essential (primary) hypertension[ICD10: I10] Mallorie Burden MD, [facility] CPT-4: 34967 07/18/2017 ([id number]) 77704 EST. PATIENT, LEVEL III Diagnosis: Pain in left knee[ICD10: M25.562] Diagnosis: Effusion, left knee[ICD10: M25.462] Mallorie Burden MD, [facility] CPT-4: 50531 06/16/2017 ([id number]) 41153 EST. PATIENT, LEVEL III Diagnosis: Essential (primary) hypertension[ICD10: I10] Diagnosis: Unsteadiness on feet[ICD10: R26.81] Kim Burden MD [facility] CPT- 4: 79574 05/28/2017 ([id number]) 23892 EST. PATIENT, LEVEL IV Diagnosis: Essential (primary) hypertension[ICD10: I10] Diagnosis: Chronic obstructive pulmonary disease with acute lower respiratory infection[ICD10: J44.0] Kim Burden MD [facility] CPT-4: 69192 05/05/2017 ([id number]) 34764 EST. PATIENT, LEVEL IV Diagnosis: Essential (primary) hypertension[ICD10: I10] Diagnosis: Major depressive disorder, recurrent, mild[ICD10: F33.0] Kim Burden MD, [facility] CPT-4: 58130 03/13/2017 ([id number]) 76877 EST. PATIENT, LEVEL IV Diagnosis: Essential (primary) hypertension[ICD10: I10] Diagnosis: Gastro-esophageal reflux disease without esophagitis[ICD10: K21.9] Diagnosis: Chronic obstructive pulmonary disease, unspecified[ICD10: J44.9] Kim Burden MD [facility] CPT-4: 44279 02/10/2017 ([id number]) 23983 EST. PATIENT, LEVEL IV Diagnosis: Essential (primary) hypertension[ICD10: I10] Diagnosis: Gastro-esophageal reflux disease without esophagitis[ICD10: K21.9] Diagnosis: Chronic obstructive pulmonary disease with acute lower respiratory infection[ICD10: J44.0] Kim Burden MD, [facility] CPT-4: 44110 01/14/2017 40204 EST. PATIENT, LEVEL IV Diagnosis: Other fatigue[ICD10: R53.83] Diagnosis: Other malaise[ICD10: R53.81] Diagnosis: Headache[ICD10: R51] Diagnosis: Palpitations[ICD10: R00.2] Diagnosis: Dehydration[ICD10: E86.0] Pebbles Burden MD, [facility] CPT-4: 12476 01/07/2017 ([id number]) Miscellaneous no charge Diagnosis: Essential (primary) hypertension[ICD10: I10] Pebbles Burden MD, [facility] CPT-4: 34533 01/02/2017 15911 EST. PATIENT, LEVEL IV Diagnosis: Chronic obstructive pulmonary disease, unspecified[ICD10: J44.9] Diagnosis: Essential (primary) hypertension[ICD10: I10] Diagnosis: Other fatigue[ICD10: R53.83] Pebbles Burden MD [facility] CPT-4: 27173 01/01/2017 ([id number]) Miscellaneous no charge Diagnosis: Essential (primary) hypertension[ICD10: I10] Pebbles Burden MD [facility] CPT-4: 34877 12/20/2016 ([id number]) 97117 EST. 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 PATIENT, LEVEL IV Diagnosis: Essential (primary) hypertension[ICD10: I10] Diagnosis: Other allergic rhinitis[ICD10: J30.89] Diagnosis: Gastro-esophageal reflux disease without esophagitis[ICD10: K21.9] Kim Burden MD [facility] CPT-4: 45089 10/15/2016 ([id number]) 15190 EST. PATIENT, LEVEL III Diagnosis: Essential (primary) hypertension[ICD10: I10] Diagnosis: Major depressive disorder, recurrent, mild[ICD10: F33.0] Kim Burden MD [facility] CPT-4: 99392 07/17/2016 ([id number]) 96768 EST. PATIENT, LEVEL III Diagnosis: Pain in left hip[ICD10: M25.552] Diagnosis: Acute laryngopharyngitis[ICD10: J06.0] Kim Burden MD, [facility] CPT-4: 62488 05/15/2016 ([id number]) 44131 EST. PATIENT, LEVEL III Diagnosis: Fracture of unspecified parts of lumbosacral spine and pelvis, initial encounter for closed fracture[ICD10: S32.9XXA] Diagnosis: Essential (primary) hypertension[ICD10: I10] Kim Burden MD, [facility] CPT-4: 32697 04/23/2016 25021 EST. PATIENT, LEVEL IV Diagnosis: Acute laryngopharyngitis[ICD10: J06.0] Diagnosis: Other allergic rhinitis[ICD10: J30.89] Pebbles Burden MD, [facility] CPT- 4: 32217 03/14/2016 24405 EST. PATIENT, LEVEL IV Diagnosis: Dysuria[ICD10: R30.0] Diagnosis: Left lower quadrant pain[ICD10: R10.32] Pebbles Burden MD, [facility] CPT-4: 74938 02/19/2016 ([id number]) 79295 EST. PATIENT, LEVEL IV Diagnosis: Essential (primary) hypertension[ICD10: I10] Diagnosis: Gastro-esophageal reflux disease without esophagitis[ICD10: K21.9] Diagnosis: Major depressive disorder, recurrent, mild[ICD10: F33.0] Kim Burden MD, [facility] CPT-4: 02912 12/19/2015 ([id number]) 36816 EST. PATIENT, LEVEL IV Diagnosis: ESSENTIAL HYPERTENSION[ICD9: 401.9] Diagnosis: ACUTE URI[ICD9: 465.9] Kim Burden MD, [facility] CPT-4: 84452 03/06/2015 ([id number]) OFFICE VISIT, NEW - LEVEL 4 Diagnosis: ESOPHAGEAL REFLUX[ICD9: 530.81] Diagnosis: ESSENTIAL HYPERTENSION[ICD9: 401.9] Diagnosis: COPD (chronic obstructive pulmonary disease)[ICD9: 496] Diagnosis: ALLERGIC RHINITIS[ICD9: 477.9] Mallorie Burden MD, [facility] CPT-4: 07037 02/07/2015 Plan of Care Planned Activity Notes [...] swallow. 04/21/2018 Appointment: [phone] ([facility] min) Moderate 04/21/2018 Patient Education: Patient [...] acute changes. 04/09/2018 [phone] (30 min) Complex 04/09/2018 Patient Education: [...] changes. 01/19/2018 Appointment: Kim Burden WPtel: [phone] [facility] (15 min) Moderate 01/19/2018 Patient Education: Patient Medication Summary Completed 01/19/2018 Appointment: Kim Burden WPtel: [phone] [facility] (15 min) Moderate 01/14/2018 Visit Plan: [...] care surrogate. 12/18/2017 Appointment: Pebbles Lund WPtel: [facility]4 [facility] [facility] - Annual Wellness Visit 12/18/2017 Patient [...] Bur[facility]el[phone] [place] (15 min) Moderate 10/16/2017 Patient Education: [...] concerns. 09/03/2017 Appointment: [facility]ebbles Lund [phone] [place] (15 min) Moderate 09/03/2017 Patient Education: Patient Medication Summary Completed 09/03/2017 Appointment: Kim Burden WPtel: [phone] [place] (15 min) Moderate 08/11/2017 Appointment: Kim Burden WPtel: [phone] [facility] [place] (15 min) Moderate 08/11/2017 Patient [...] treatment. 07/31/2017 Appointment: Kim Burden WPtel: [phone] [facility] (15 min) Moderate 07/31/2017 Patient Education: Patient Medication Summary Completed 07/31/2017 Appointment: Nurse Visit 07/18/2017 Patient Education: Patient Medication Summary Completed 07/18/2017 Patient Education: Patient Medication Summary Completed 07/18/2017 Appointment: Kim Burden WPtel: [facility] [place] (15 min) Moderate 06/30/2017 Visit Plan: Effusion left knee-fall 2 weeks ago-recommend compression of joint and refer to Ortho for evaluation and treatment-will refer to Dr Pryor/Quinton Mccormick. Patient verbalized understanding of plan. 06/16/2017 Appointment: [phone] [place] (30 min) Complex 06/16/2017 Patient [...] active. 05/28/2017 Appointment: Kim Burden [facility]Ptel: [phone] [place] (15 min) Moderate 05/28/2017 Patient Education: [...] changes. 05/05/2017 Appointment: Kim Burden WPtel: [phone] [facility] (15 min) Moderate 05/05/2017 Patient Education: [...] current medications. 03/13/2017 Appointment: Kim Bur[facility]Ptel[phone] (15 min) Moderate 03/13/2017 Patient Education: Patient [...] Bur[facility]el[phone] (15 min) Moderate 02/10/2017 Patient Education: Patient [...] Burden WPtel: [phone] (15 min) Moderate 01/14/2017 Patient Education: Patient [...] concerns. 01/07/2017 Appointment[phone] ([facility] min) Complex 01/07/2017 Patient Education: [...] blood pressures. 01/01/2017 Appointment: Pebbles Lund WPtel: [phone] [facility] (30 min) Complex 01/01/2017 Patient Education: [...] surrogate. 12/12/2016 Appointment: [facility]bles [phone] [facility] - Annual Wellness Visit 12/12/2016 Patient [...] time. 12/11/2016 Appointment: Kim Burden WPtel: [facility] (15 min) Moderate 12/11/2016 Patient Education: Patient Medication Summary Completed 12/11/2016 Appointment: Mallorie Wetzel WPtel[phone] (30 min) Complex 12/10/2016 Visit Plan: [...] improving. 10/15/2016 Appointment: Kim Burden WPtel: [phone] [facility] (15 min) Moderate 10/15/2016 Patient Education: [...] restaurant. 07/17/2016 Appointment: Kim Burden WPtel: [facility]5 [facility] (15 min) Moderate 07/17/2016 Patient Education: Patient Medication Summary Completed 07/17/2016 Appointment: Kim Burden WPtel: [facility]5 [facility] (15 min) Moderate 06/10/2016 Visit Plan: Hip pain - persistent but improving - continue with current treatment plan. Pt to call if her symptoms are not improving or if her hip pain worsens. URI symptoms - supportive care, use otc allergy medications. 05/15/2016 Appointment: Kim Burden WPtel: [facility]0 [facility] (15 min) Moderate 05/15/2016 Patient Education: [...] [facility]el[phone] (15 min) Moderate 04/23/2016 Patient Education: Patient Medication Summary Completed 04/23/2016 Patient Education: Hypertension Completed 04/23/2016 Care Plan: X-RAY EXAM OF ABDOMEN [facility] : 49168-3 Pending 03/18/2016 Visit Plan: URI - Pt [...] spray. 03/14/2016 Appointment: Pebbles Lund WPtel: [facility]5 [facility] (30 min) Complex 03/14/2016 Patient Education: Patient Medication Summary Completed 03/14/2016 Patient Education: Patient Medication Summary Completed 02/29/2016 Visit Plan: Flank pain - pt is currently being treated for UTI, but is having continued left flank pain - will get KUB - pt is to notify clinic if symptoms do not improve, or with any concerns. 02/19/2016 Appointment: Pebbles Lund WPtel: [facility]5 [facility] (30 min) Complex 02/19/2016 Patient Education: Patient Medication Summary Completed 02/19/2016 Appointment: Kim Burden WPtel: [facility]5 [facility] (15 min) Moderate 01/22/2016 Visit Plan: [...] improving. 12/19/2015 Appointment: Kim Burden WPtel: [phone] [facility] (15 min) Moderate 12/19/2015 Patient Education: [...] Finish RX. 03/06/2015 Appointment: Kim Burden WPtel: [phone] [facility] Follow up 03/06/2015 Patient Education: Patient [...] Completed 02/07/2015 Care Plan: SCREENINGMAMMOGRAPHYDIGITAL LOINC : 73221-9 Ordered 02/07/2015 Care Plan: COMPLETE CBC AUTOMATED LOINC : 48463-5 Ordered 02/07/2015 Instructions Comment . Dehydration, palpitations, [...] to help decrease GI upset./loose stools - [employer] or [employer] . Hypertension - well controlled - continue [...] care surrogate. TAKE WITH FOOD AND PROBIOTIC (MOG OR [employer]ENC[employer]) . URI - Pt advised to increase [...] and oxygen concentrator when at home. . HTN - blood pressure too well controlled - recommend pt to stop amlodipine, monitor blood pressure at home and call if pressure starts to rise too quickly. Pelvic pain improving per patient report - pt has been advised that she needs to keep her activities easy, slowly advance movements - call if not improving. increase current supply of (norvasc) [...] pain occurs at the site of injection. Liquid Vitamin B12 or Vitamin B12 dissolving [...] - chronic, continue with current treatment. . Hypertension - well controlled - continue [...] patient is stable, monitor for acute changes. Compression left knee with ru wrap Refer to Dr Pryor/Quinton Mccormick for evaluation . Effusion left knee-fall 2 weeks ago-recommend compression of joint and refer to Ortho for evaluation and treatment-will refer to Dr Pryor/Quinton Mccormick. Patient verbalized understanding of plan. Restart breo kenalog injection today -start oral [...]
--- OUTSIDE RECORDS SUMMARY | 2019-04-06 10:00 | XMS REPORT | CCD ---
Author Author Mallorie Wetzel MD, [facility] Address [address] [place] [address] Phone Care Team Providers Care Foam Molder Name Role Phone PP Unavailable CCM Unavailable Summary Purpose Interface Exchange Insurance Providers Payer name Policy type / Coverage type Covered alliance party ID Effective Begin Date Effective End Date WPS Medicare Part B Medicare Part B [id number] Unknown AETNA Medicare Part B [id number] Unknown Family history Brother Diagnosis Age At [...] 02/07/2015 Employment Unknown Currently employed works at [employer] 02/07/[address]: 8852381 Quit over 10 years ago 199302/07/2015 Number [...] Instructions fluticasone 50 mcg/actuation nasal spray,suspension RxNorm: 5334720 1 [place] NASAL BID 05/18/2018 05/12/2019 Active fluticasone 50 mcg/actuation nasal spray,suspension RxNorm: 7434728 1 [place] NASAL BID 05/15/2018 05/17/2018 Inactive fluticasone 50 mcg/actuation nasal spray,suspension RxNorm: 4198658 1 [place] NASAL BID 05/15/2018 05/14/2018 Inactive nystatin 100,000 unit/mL oral suspension RxNorm: 691396 5 Milliliter(s) PO QID 04/21/2018 04/30/2018 Inactive Breo Ellipta 100 mcg-25 mcg/dose powder for inhalation RxNorm: 0616607 1 INH daily 04/09/2018 04/03/2019 Active please call patient with jaramillo before sending prednisone 20 mg tablet RxNorm: 369250 1 Tablet(s) PO BID 04/09/2018 04/13/2018 Inactive start tomorrow Kenalog 40 mg/mL suspension for injection RxNorm: 3433322 1.5 Milliliter(s) Inj 04/09/2018 04/09/2018 Inactive Breo Ellipta 100 mcg-25 mcg/dose powder for inhalation RxNorm: 4755496 1 INH daily 04/09/2018 04/08/2018 Inactive alprazolam 1 mg tablet RxNorm: 026250 1 Tablet(s) PO TID 03/13/2018 12/07/2018 Active losartan 100 mg tablet RxNorm: 861777 TAKE 1 TABLET EVERY EVENING 03/02/2018 02/13/2021 Active Ventolin HFA 90 mcg/actuation aerosol inhaler RxNorm: 535833 2 INH Q4-6H as needed 12/29/2017 02/26/2018 Inactive Ventolin HFA 90 mcg/actuation aerosol inhaler RxNorm: 466191 2 INH Q4-6H as needed 12/29/2017 12/28/2017 Inactive Diflucan 150 mg tablet RxNorm: 855521 1 Tablet(s) PO daily 11/03/2017 11/05/2017 Inactive please call pt to let herknow when to pick- up the med Keflex 500 mg capsule RxNorm: 350297 1 Capsule(s) PO TID 10/23/2017 10/29/2017 Inactive Kenalog 40 mg/mL suspension for injection RxNorm: 0039837 1 Milliliter(s) Inj 10/16/2017 10/16/2017 Inactive ibuprofen 800 mg tablet RxNorm: 297462 TAKE 1 TABLET THREE TIMES DAILY 10/15/2017 01/07/2019 Active Lexapro 10 mg tablet RxNorm: 071993 TAKE 1 TABLET EVERY DAY 10/15/2017 10/09/2018 Active hydrocodone 5 mg-acetaminophen 325 mg tablet RxNorm: 919223 1 Tablet(s) PO QID as needed 09/03/2017 No Stop Date Active omeprazole 20 mg capsule,delayed release RxNorm: 810792 1 Capsule(s) PO BID 09/02/2017 08/27/2018 Active alprazolam 1 mg tablet RxNorm: 957114 1 Tablet(s) PO TID 09/02/2017 03/12/2018 Inactive metoprolol tartrate 50 mg tablet RxNorm: 396897 1/2 Tablet(s) PO BID 06/26/2017 06/20/2018 Active omeprazole 20 mg capsule,delayed release RxNorm: 326875 1 Capsule(s) PO BID 06/05/2017 09/01/2017 Inactive omeprazole 20 mg capsule,delayed release RxNorm: 429689 1 Capsule(s) PO BID 05/28/2017 06/04/2017 Inactive omeprazole 20 mg capsule,delayed release RxNorm: 042850 1 Capsule(s) PO QPM 05/27/2017 05/27/2017 Inactive Breo Ellipta 100 mcg-25 mcg/dose powder for inhalation RxNorm: 9365721 1 INH daily 05/05/2017 04/08/2018 Inactive alprazolam 1 mg tablet RxNorm: 664263 1 Tablet(s) PO TID 02/10/2017 08/07/2017 Inactive metoprolol tartrate 50 mg tablet RxNorm: 440650 1/2 Tablet(s) PO BID 02/10/2017 06/25/2017 Inactive losartan 100 mg tablet RxNorm: 952513 1 Tablet(s) PO QPM 02/10/2017 02/04/2018 Inactive losartan 50 mg tablet RxNorm: 760736 2 Tablet(s) PO QPM 01/23/2017 02/09/2017 Inactive Diflucan 150 mg tablet RxNorm: 813556 1 Tablet(s) PO daily 01/20/2017 01/22/2017 Inactive please call pt to let herknow when to pick- up the med Diflucan 150 mg tablet RxNorm: 206627 1 Tablet(s) PO daily 01/20/2017 01/19/2017 Inactive please call pt to let herknow when to pick- up the med losartan 50 mg tablet RxNorm: 096537 1 Tablet(s) PO QPM 01/14/2017 01/22/2017 Inactive Cipro 500 mg tablet RxNorm: 749993 1 Tablet(s) PO BID 01/08/2017 01/17/2017 Inactive Cipro 500 mg tablet RxNorm: 604237 1 Tablet(s) PO BID 01/08/2017 01/07/2017 Inactive Lexapro 10 mg tablet RxNorm: 340662 TAKE 1 TABLET EVERY DAY 12/20/2016 10/14/2017 Inactive metoprolol tartrate 50 mg tablet RxNorm: 604122 1 Tablet(s) PO in the morning and 1.5 pill at night 12/11/2016 01/13/2017 Inactive spironolactone 25 mg tablet RxNorm: 848104 TAKE 1 TABLET EVERY DAY 11/04/2016 07/31/2017 Inactive metoprolol tartrate 50 mg tablet RxNorm: 928408 TAKE 1 TABLET TWICE DAILY 10/29/2016 12/10/2016 Inactive ibuprofen 800 mg tablet RxNorm: 247213 TAKE 1 TABLET THREE TIMES DAILY 10/21/2016 10/14/2017 Inactive Astepro 0.15 % (205.5 mcg) nasal spray RxNorm: 2690163 1 [place] NASAL BID 10/15/2016 10/09/2017 Inactive Astepro 0.15 % (205.5 mcg) nasal spray RxNorm: 4899955 1 [place] NASAL BID 10/15/2016 10/14/2016 Inactive Astepro 0.15 % (205.5 mcg) nasal spray RxNorm: 5483713 1 [place] NASAL BID 10/15/2016 10/14/2016 Inactive omeprazole 20 mg capsule,delayed release RxNorm: 212172 1 Capsule(s) PO QPM 10/15/2016 05/26/2017 Inactive omeprazole 20 mg capsule,delayed release RxNorm: 205931 1 Capsule(s) QPM 10/15/2016 10/14/2016 Inactive omeprazole 20 mg capsule,delayed release RxNorm: 344368 TAKE 1 CAPSULE TWICE DAILY 09/02/2016 10/14/2016 Inactive Lexapro 10 mg tablet RxNorm: 500116 TAKE 1 TABLET EVERY DAY 08/21/2016 12/19/2016 Inactive calcitonin (salmon) 200 unit/actuation nasal spray RxNorm: 848017 1 [place] NASAL daily ONE SPRAY PER ONE NOSTRIL DAILY- ALTERNATE NOSTRILS DAILY 05/31/2016 05/30/2016 Inactive She will do this for 3 months- If she wants to do a 3 month supply at one time she can without refill calcitonin (salmon) 200 unit/actuation nasal spray RxNorm: 045103 1 [place] NASAL daily ONE SPRAY PER ONE NOSTRIL DAILY- ALTERNATE NOSTRILS DAILY 05/31/2016 07/30/2016 Inactive x3 months- no refills Forteo 20 mcg/dose (600 mcg/2.4 mL) subcutaneous pen injector RxNorm: 2550572 1 injection SQ daily 05/22/2016 05/30/2016 Inactive call pt with ella adams Forteo 20 mcg/dose (600 mcg/2.4 mL) subcutaneous pen injector RxNorm: 7336161 1 injection SQ daily 05/22/2016 05/21/2016 Inactive Prolia 60 mg/mL subcutaneous syringe RxNorm: 771353 1 Milliliter(s) SQ every 6 months 05/13/2016 No Stop Date Active Please check jaramillo through insurance and let me know- Thanks! Mary Ellen alprazolam 1 mg tablet RxNorm: 561883 1 Tablet(s) PO TID 05/08/2016 11/01/2016 Inactive Lexapro 10 mg tablet RxNorm: 549249 TAKE 1 TABLET EVERY DAY 04/22/2016 08/20/2016 Inactive spironolactone 25 mg tablet RxNorm: 234608 TAKE 1 TABLET EVERY DAY 04/22/2016 11/03/2016 Inactive Diflucan 150 mg tablet RxNorm: 316620 1 Tablet(s) PO daily 03/20/2016 04/14/2016 Inactive Diflucan 150 mg tablet RxNorm: 974111 1 Tablet(s) PO daily 03/20/2016 03/19/2016 Inactive Augmentin 500 mg-125 mg tablet RxNorm: 886422 1 Tablet(s) PO TID 03/14/2016 03/23/2016 Inactive omeprazole 20 mg capsule,delayed release RxNorm: 084203 1 Tablet(s) PO BID 03/06/2016 09/01/2016 Inactive [SAVINGS FOR NON-COVERED DRUGS -- BIN:[id number], PCN: ASPROD1, Group: XXXXX, ID# XXXXXXX, Questions: . THIS IS NOT INSURANCE.] amlodipine 5 mg tablet RxNorm: 626909 TAKE 1 TABLET EVERY DAY 03/01/2016 04/22/2016 Inactive omeprazole 20 mg tablet,delayed release RxNorm: 826807 1 Tablet(s) PO BID 02/27/2016 03/05/2016 Inactive [SAVINGS FOR NON-COVERED DRUGS -- BIN:087578, PCN: ASPROD1, Group: XXXXX, ID# XXXXXXX, Questions: . THIS IS NOT INSURANCE.] spironolactone 25 mg tablet RxNorm: 694048 TAKE 1 TABLET EVERY DAY 12/21/2015 04/21/2016 Inactive Lexapro 10 mg tablet RxNorm: 722308 1 Tablet(s) PO daily 12/19/2015 01/01/2016 Inactive Lexapro 10 mg tablet RxNorm: 534548 1 Tablet(s) PO daily 12/19/2015 02/09/2017 Inactive Lexapro 10 mg tablet RxNorm: 913814 1 Tablet(s) PO daily 12/19/2015 12/18/2015 Inactive alprazolam 1 mg tablet RxNorm: 269733 1 Tablet(s) PO TID 12/01/2015 02/28/2016 Inactive ibuprofen 800 mg tablet RxNorm: 859839 1 Tablet(s) PO TID 10/26/2015 10/20/2016 Inactive alprazolam 1 mg tablet RxNorm: 562924 1 Tablet(s) PO TID 08/23/2015 11/19/2015 Inactive spironolactone 25 mg tablet RxNorm: 672164 1 Tablet(s) PO daily 08/21/2015 12/20/2015 Inactive metoprolol tartrate 50 mg tablet RxNorm: 913822 1 Tablet(s) PO BID 08/10/2015 08/03/2016 Inactive [SAVINGS FOR NON-COVERED DRUGS -- BIN:228970, PCN: ASPROD1, Group: XXXXX, ID# XXXXXXX, Questions: . THIS IS NOT INSURANCE.] omeprazole 20 mg tablet,delayed release RxNorm: 111151 1 Tablet(s) PO BID 08/07/2015 02/02/2016 Inactive [SAVINGS FOR NON-COVERED DRUGS -- BIN:196097, PCN: ASPROD1, Group: XXXXX, ID# XXXXXXX, Questions: . THIS IS NOT INSURANCE.] Keflex 500 mg capsule RxNorm: 950488 1 Capsule(s) PO TID 07/10/2015 07/16/2015 Inactive alprazolam 1 mg tablet RxNorm: 981630 1 Tablet(s) PO TID 06/02/2015 08/22/2015 Inactive alprazolam 1 mg tablet RxNorm: 862798 1 Tablet(s) PO TID 03/29/2015 06/01/2015 Inactive amlodipine 5 mg tablet RxNorm: 751243 1 Tablet(s) PO daily 03/06/2015 02/29/2016 Inactive Nasonex 50 mcg/actuation [place] RxNorm: 171624 1 [place] NASAL daily 03/03/2015 03/02/2015 Inactive Keflex 500 mg capsule RxNorm: 536383 1 Capsule(s) PO TID 03/03/2015 03/02/2015 Inactive Nasonex 50 mcg/actuation [place] RxNorm: 301184 1 [place] NASAL daily 03/03/2015 05/01/2015 Inactive Keflex 500 mg capsule RxNorm: 741104 1 Capsule(s) PO TID 03/03/2015 03/05/2015 Inactive Carafate 1 gram tablet RxNorm: 482174 TAKE 1 TABLET FOUR TIMES DAILY 30 MINUTES BEFORE MEALS AND AT BEDTIME 02/28/2015 12/18/2015 Inactive Kenalog 40 mg/mL suspension for injection RxNorm: 1732521 Milliliter(s) Inj 02/07/2015 02/07/2015 Inactive [SAVINGS FOR NON-COVERED DRUGS -- BIN:632538, PCN: ASPROD1, Group: XXXXX, ID# XXXXXXX, Questions: . THIS IS NOT INSURANCE.] metoprolol tartrate 50 mg tablet RxNorm: 703336 1 Tablet(s) PO BID 02/07/2015 08/09/2015 Inactive [SAVINGS FOR NON-COVERED DRUGS -- BIN:104477, PCN: ASPROD1, Group: XXXXX, ID# XXXXXXX, Questions: . THIS IS NOT INSURANCE.] Carafate 1 gram tablet RxNorm: 637911 1 Tablet(s) PO QID 02/07/2015 02/27/2015 Inactive 30 min before meals and at bedtime omeprazole 20 mg tablet,delayed release RxNorm: 264673 1 Tablet(s) PO BID 02/07/2015 08/05/2015 Inactive [SAVINGS FOR NON-COVERED DRUGS -- BIN:673219, PCN: ASPROD1, Group: XXXXX, ID# XXXXXXX, Questions: . THIS IS NOT INSURANCE.] Vitamin D3 2,000 unit tablet RxNorm: 966346 1 Tablet(s) PO daily No Start Date Active aspirin 81 mg tablet RxNorm: 346676 1 Tablet(s) PO daily No Start Date Active loratadine 10 mg tablet RxNorm: 475257 1 Tablet(s) PO daily No Start Date Active amlodipine 2.5 mg tablet RxNorm: 527901 1 Tablet(s) PO daily No Start Date 03/05/2015 Inactive spironolactone 25 mg tablet RxNorm: 127728 1 Tablet(s) PO daily No Start Date 08/20/2015 Inactive cetirizine 10 mg tablet RxNorm: 1204657 1 Tablet(s) PO daily No Start Date 12/18/2015 Inactive metoprolol tartrate 50 mg tablet RxNorm: 758996 1 Tablet(s) PO daily No Start Date 02/06/2015 Inactive ipratropium bromide 0.06 % nasal spray RxNorm: 136959 nasal No Start Date 12/18/2015 Inactive alprazolam 1 mg tablet RxNorm: 289501 1 Tablet(s) PO TID No Start Date 03/28/2015 Inactive Prolia 60 mg/mL subcutaneous syringe RxNorm: 849307 1 Milliliter(s) SQ every 6 months No Start Date 05/12/2016 Inactive Please check jaramillo through insurance and let me know- Thanks! Mary Ellen ibuprofen 800 mg tablet RxNorm: 205230 1 Tablet(s) PO TID No Start Date 10/25/2015 Inactive Protonix 40 mg tablet,delayed release RxNorm: 007775 1 Tablet(s) PO daily No Start Date 03/05/2015 Inactive Medication Administered Medication Codes Instructions Start Date Status Kenalog 40 mg/mL suspension for injection RxNorm: 0400940 1.5Milliliter 04/09/2018 No longer Active Kenalog 40 mg/mL suspension for injection RxNorm: 9373360 1Milliliter 10/16/2017 No longer Active Kenalog 40 mg/mL suspension for injection RxNorm: 2896222 Milliliter 02/07/2015 No longer Active Immunizations Vaccine [...] Item Item Code Result Date Comp Metabolic Yvw503 NA 138 mEq/L 09/03/2017 Comp Metabolic Ogq219 K 3.9 mEq/L 09/03/2017 Comp Metabolic Pin665 CL 102 mEq/L 09/03/2017 Comp Metabolic Pax905 CO2 32.0 mEq/L 09/03/2017 Comp Metabolic Jnd052 ANION GAP 8 09/03/2017 Comp Metabolic Rch626 GLUCOSE 89 mg/dL 09/03/2017 Comp Metabolic Tyk688 Creat 0.6 mg/dL 09/03/2017 Comp Metabolic Ulo048 eGFR 103 ml/min/1.73m2 09/03/2017 Comp Metabolic Dbw729 BUN 10 mg/dL 09/03/2017 Comp Metabolic Aej898 B/C Ratio 16.7 Ratio 09/03/2017 Comp Metabolic Zan569 CALCIUM 8.9 mg/dL 09/03/2017 Comp Metabolic Xlv118 ALK PHOS 141 U/L 09/03/2017 Comp Metabolic Xbu837 AST(SGOT) 12 U/L 09/03/2017 Comp Metabolic Zjj923 ALT(SGPT) 7 U/L 09/03/2017 Comp Metabolic Pve637 BILI T 0.6 mg/dL 09/03/2017 Comp Metabolic Vrs559 ALBUMIN 3.6 g/dL 09/03/2017 Comp Metabolic Kok599 TPRO 6.6 g/dL 09/03/2017 Comp Metabolic Dkz585 GLOB 3.0 g/dL 09/03/2017 Comp Metabolic Czb564 A/G Ratio 1.2 Ratio 09/03/2017 Comp Metabolic Fmc448 Osmo 274 mOsmo 09/03/2017 Hepatic Ehc135 ALBUMIN 3.7 g/dL 08/11/2017 Hepatic Vfg780 TPRO 7.0 g/dL 08/11/2017 Hepatic Nsm079 GLOB 3.3 g/dL 08/11/2017 Hepatic Qru460 A/G Ratio 1.1 Ratio 08/11/2017 Hepatic Nmh826 ALK PHOS 85 U/L 08/11/2017 Hepatic Ufk168 ALT(SGPT) 11 U/L 08/11/2017 Hepatic Wzg345 AST(SGOT) 16 U/L 08/11/2017 Hepatic Uii884 BILI T 0.6 mg/dL 08/11/2017 Hepatic Wmu696 BILI D 0.1 mg/dL 08/11/2017 Hepatic Uyn190 BILI I 0.5 mg/dL 08/11/2017 Hepatic Eau539 ALBUMIN 3.1 g/dL 07/18/2017 Hepatic Ban889 TPRO 5.9 g/dL 07/18/2017 Hepatic Euo143 GLOB 2.8 g/dL 07/18/2017 Hepatic Ijr762 A/G Ratio 1.1 Ratio 07/18/2017 Hepatic Sgs896 ALK PHOS 123 U/L 07/18/2017 Hepatic Xjs497 ALT(SGPT) 210 U/L 07/18/2017 Hepatic Igy398 AST(SGOT) 71 U/L 07/18/2017 Hepatic Wrz095 BILI T 1.1 mg/dL 07/18/2017 Hepatic Ajh870 BILI D 0.4 mg/dL 07/18/2017 Hepatic Lej843 BILI I 0.7 mg/dL 07/18/2017 Cbc With [...] 24.5 % 02/25/2017 Cbc With Differential Ord2 Lamb% 7.6 % 02/25/2017 Cbc With Differential Ord2 [...] 1.22 K/ul 02/25/2017 Cbc With Differential Ord2 Lamb ABS# 0.4 K/ul 02/25/2017 Cbc With Differential [...] 98.0 fl 01/02/2017 Cbc With Differential Ord2 [place]% 7.8 % 01/02/2017 Cbc With Differential Ord2 [...] 0.90 K/ul 01/02/2017 Cbc With Differential Ord2 Lamb ABS# 0.4 K/ul 01/02/2017 Cbc With Differential Ord2 Eos ABS# 0.3 K/ul 01/02/2017 Cbc With Differential Ord2 Baso ABS# 0.0 K/ul 01/02/2017 Lipid Ord30 CHOL 139 mg/dL 12/13/2016 Lipid Ord30 HDL 48.0 mg/dl 12/13/2016 Lipid Ord30 TRIG 84 mg/dL 12/13/2016 Lipid Ord30 LDL 74 mg/dL 12/13/2016 Lipid Ord30 C/HDL 2.9 Ratio 12/13/2016 Comp Metabolic Vfq455 NA 137 mEq/L 12/13/2016 Comp Metabolic Tak293 K 4.8 mEq/L 12/13/2016 Comp Metabolic Psx722 CL 101 mEq/L 12/13/2016 Comp Metabolic Nbi680 CO2 32.0 mEq/L 12/13/2016 Comp Metabolic Mrc302 ANION GAP 9 12/13/2016 Comp Metabolic Xdl953 GLUCOSE 95 mg/dL 12/13/2016 Comp Metabolic Fwr625 Creat 0.8 mg/dL 12/13/2016 Comp Metabolic Vav053 eGFR 79 ml/min/1.73m2 12/13/2016 Comp Metabolic Uaf789 BUN 15 mg/dL 12/13/2016 Comp Metabolic Lqw283 B/C Ratio 19.7 Ratio 12/13/2016 Comp Metabolic Xqu791 CALCIUM 9.3 mg/dL 12/13/2016 Comp Metabolic Xol077 ALK PHOS 63 U/L 12/13/2016 Comp Metabolic Xgu303 AST(SGOT) 15 U/L 12/13/2016 Comp Metabolic Nwp077 ALT(SGPT) 10 U/L 12/13/2016 Comp Metabolic Pun162 BILI T 0.7 mg/dL 12/13/2016 Comp Metabolic Zaw413 ALBUMIN 3.7 g/dL 12/13/2016 Comp Metabolic Csq786 TPRO 6.8 g/dL 12/13/2016 Comp Metabolic Jnj198 GLOB 3.2 g/dL 12/13/2016 Comp Metabolic Lfh556 A/G Ratio 1.2 Ratio 12/13/2016 Comp Metabolic Tpj719 Osmo 274 mOsmo 12/13/2016 Cbc With Differential [...] 97.4 fl 12/13/2016 Cbc With Differential Ord2 [place]% 9.9 % 12/13/2016 Cbc With Differential Ord2 [...] 1.17 K/ul 12/13/2016 Cbc With Differential Ord2 [place] ABS# 0.4 K/ul 12/13/2016 Cbc With Differential [...] 97.3 fl 12/19/2015 Cbc With Differential Ord2 [place]% 5.9 % 12/19/2015 Cbc With Differential Ord2 [...] 1.53 K/ul 12/19/2015 Cbc With Differential Ord2 [place] ABS# 0.3 K/ul 12/19/2015 Cbc With Differential [...] Ord30 C/HDL 2.8 Ratio 12/19/2015 Comp Metabolic Iue216 NA 135 mEq/L 12/19/2015 Comp Metabolic Xzx214 K 4.1 mEq/L 12/19/2015 Comp Metabolic Qqn327 CL 99 mEq/L 12/19/2015 Comp Metabolic Bqe640 CO2 27.0 mEq/L 12/19/2015 Comp Metabolic Nsj921 ANION GAP 13 12/19/2015 Comp Metabolic Mxy164 GLUCOSE 83 mg/dL 12/19/2015 Comp Metabolic Jqa629 Creat 0.7 mg/dL 12/19/2015 Comp Metabolic Njc386 eGFR 88 ml/min/1.73m2 12/19/2015 Comp Metabolic Zrx939 BUN 12 mg/dL 12/19/2015 Comp Metabolic Jip901 B/C Ratio 17.4 Ratio 12/19/2015 Comp Metabolic Ced096 CALCIUM 9.0 mg/dL 12/19/2015 Comp Metabolic Zhi975 ALK PHOS 68 U/L 12/19/2015 Comp Metabolic Ndd243 AST(SGOT) 16 U/L 12/19/2015 Comp Metabolic Kym475 ALT(SGPT) 13 U/L 12/19/2015 Comp Metabolic Zvb121 BILI T 0.7 mg/dL 12/19/2015 Comp Metabolic Llc060 ALBUMIN 4.0 g/dL 12/19/2015 Comp Metabolic Aof428 TPRO 7.0 g/dL 12/19/2015 Comp Metabolic Qom367 GLOB 3.0 g/dL 12/19/2015 Comp Metabolic Khw929 A/G Ratio 1.3 Ratio 12/19/2015 Comp Metabolic Lco493 Osmo 269 mOsmo 12/19/2015 Review of Systems [...] NOS CPT-4: J3301 10/16/2017 DRAIN/INJECT JOINT/BURSA CPT-4: 52984 10/16/2017 PRESCRIP TRANSMIT VIA ERX SY CPT-4: G8553 05/05/2017 PRESCRIP TRANSMIT VIA ERX SY CPT-4: G8553 01/14/2017 PPPS, SUBSEQ VISIT CPT- 4: G0439 12/12/2016 PRESCRIP TRANSMIT VIA ERX SY CPT-4: G8553 10/15/2016 ADMIN PNEUMOCOCCAL VACCINE SNOMED CT: 38731908 CPT-4: G0009 08/28/2016 Pneumococcal Polysaccharide Vaccine, 23-Valent, Ad CPT-4: 10834 08/28/2016 PRESCRIP TRANSMIT VIA ERX SY CPT-4: G8553 03/14/2016 PRESCRIP TRANSMIT VIA ERX SY CPT-4: G8553 12/19/2015 THER/PROPH/DIAG INJ SC/IM CPT-4: 01508 02/07/2015 TRIAMCINOLONE ACET INJ NOS CPT-4: J3301 02/07/2015 Vital Signs Date Vital 04/21/2018 Blood Pressure 1: 108/70 Code: 8480-6 BMI: 24.4 Code: 58989-5 Heart Rate 1: 62 bpm Height: 5'1" SpO2: 94% Weight: 129 lbs 04/09/2018 Blood Pressure 1: 138/86 Code: 8480-6 BMI: 25.5 Code: 57290-3 Heart Rate 1: 64 bpm Height: 5'1" SpO2: 99% Temperature: 36.4 (C) / 97.5 (F) Weight: 135 lbs 01/19/2018 Blood Pressure 1: 128/76 Code: 8480-6 BMI: 25.9 Code: 18834-2 Heart Rate 1: 65 bpm Height: 5'1" SpO2: 98% Weight: 137 lbs 12/18/2017 Blood Pressure 1: 144/82 Code: 8480-6 BMI: 26.1 Code: 45612-0 Heart Rate 1: 57 bpm Height: 5'1" SpO2: 97% Waist Measure (cm): 74 cm Weight: 138 lbs 10/16/2017 Blood Pressure 1: 142/88 Code: 8480-6 BMI: 25.5 Code: 75104-4 Heart Rate 1: 63 bpm Height: 5'1" SpO2: 97% Weight: 135 lbs 09/03/2017 Blood Pressure 1: 144/90 Code: 8480-6 BMI: 26.3 Code: 15054-3 Heart Rate 1: 91 bpm Height: 5'1" SpO2: 96% Weight: 139 lbs 07/31/2017 Blood Pressure 1: 136/90 Code: 8480-6 BMI: 26.3 Code: 95166-5 Height: 5'1" Weight: 139 lbs 07/18/2017 Blood Pressure 1: 136/84 Code: 8480-6 06/16/2017 Blood Pressure 1: 136/84 Code: 8480-6 BMI: 26.5 Code: 82616-3 Heart Rate 1: 72 bpm Height: 5'1" SpO2: 97% Weight: 140 lbs 05/28/2017 Blood Pressure 1: 138/78 Code: 8480-6 BMI: 26.1 Code: 20306-5 Heart Rate 1: 70 bpm Height: 5'1" SpO2: 98% Weight: 138 lbs 05/05/2017 Blood Pressure 1: 140/86 Code: 8480-6 BMI: 25.3 Code: 44750-0 Heart Rate 1: 66 bpm Height: 5'1" SpO2: 99% Weight: 134 lbs 03/13/2017 Blood Pressure 1: 126/74 Code: 8480-6 BMI: 25.3 Code: 40893-6 Heart Rate 1: 73 bpm Height: 5'1" SpO2: 98% Weight: 134 lbs 02/10/2017 Blood Pressure 1: 148/88 Code: 8480-6 BMI: 25.9 Code: 85247-1 Heart Rate 1: 84 bpm Height: 5'1" SpO2: 97% Weight: 137 lbs 01/14/2017 Blood Pressure 1: 134/86 Code: 8480-6 BMI: 25.7 Code: 14964-2 Heart Rate 1: 83 bpm Height: 5'1" SpO2: 95% Weight: 136 lbs 01/07/2017 Blood Pressure 1: 136/88 Code: 8480-6 BMI: 25.1 Code: 35513-2 Heart Rate 1: 86 bpm Height: 5'1" SpO2: 94% Weight: 133 lbs 01/02/2017 Blood Pressure 1: 122/68 Code: 8480-6 Blood Pressure 2: 116/78 Code: 8480-6 01/01/2017 Blood Pressure 1: 90/52 Code: 8480-6 BMI: 25.1 Code: 54879- 5 Heart Rate 1: 86 bpm Height: 5'1" SpO2: 99% Weight: 133 lbs 12/20/2016 Blood Pressure 1: 120/76 Code: 8480-6 12/12/2016 Blood Pressure 1: 130/72 Code: 8480-6 BMI: 24.8 Code: 90956-4 Heart Rate 1: 62 bpm Height: 5'1" SpO2: 98% Waist Measure (cm): 79 cm Weight: 131 lbs 12/11/2016 Blood Pressure 1: 132/70 Code: 8480-6 BMI: 24.8 Code: 73617-1 Heart Rate 1: 60 bpm Height: 5'1" Weight: 131 lbs 10/15/2016 Blood Pressure 1: 108/66 Code: 8480-6 BMI: 24.8 Code: 34661-6 Heart Rate 1: 60 bpm Height: 5'1" Weight: 131 lbs 07/17/2016 Blood Pressure 1: 128/82 Code: 8480-6 BMI: 25.3 Code: 47885-4 Heart Rate 1: 50 bpm Height: 5'2" Weight: 136 lbs 05/15/2016 Blood Pressure 1: 108/70 Code: 8480-6 BMI: 23.4 Code: 33565-8 Heart Rate 1: 54 bpm Height: 5'2" SpO2: 96% Weight: 126 lbs 04/23/2016 Blood Pressure 1: 112/60 Code: 8480-6 BMI: 23.6 Code: 24358-2 Heart Rate 1: 92 bpm Height: 5'2" SpO2: 95% Weight: 127 lbs 03/14/2016 Blood Pressure 1: 118/74 Code: 8480-6 BMI: 24.0 Code: 92050-1 Heart Rate 1: 51 bpm Height: 5'2" SpO2: 94% Temperature: 36.8 (C) / 98.3 (F) Weight: 129 lbs 02/19/2016 Blood Pressure 1: 110/62 Code: 8480-6 BMI: 23.4 Code: 42926-8 Heart Rate 1: 74 bpm Height: 5'2" SpO2: 97% Weight: 126 lbs 12/19/2015 Blood Pressure 1: 108/74 Code: 8480-6 BMI: 23.6 Code: 98638-6 Heart Rate 1: 52 bpm Height: 5'2" Weight: 127 lbs 03/06/2015 Blood Pressure 1: 136/88 Code: 8480-6 Heart Rate 1: 64 bpm Weight: 129 lbs 02/07/2015 Blood Pressure 1: 142/90 Code: 8480-6 BMI: 24.5 Code: 01198-0 Heart Rate 1: 82 bpm Height: 5'2" [...] data Encounters Encounter Performer Location Codes Date ([id number]) [id number] EST. PATIENT, LEVEL IV Diagnosis: Essential (primary) hypertension[ICD10: I10] Diagnosis: Other emphysema[ICD10: J43.8] Diagnosis: Candidal stomatitis[ICD10: B37.0] Kim Burden MD, [facility] CPT- 4: 36235 04/21/2018 ([id number]) [id number] EST. PATIENT, LEVEL III Diagnosis: Chronic obstructive pulmonary disease with (acute) exacerbation[ICD10: J44.1] Mallorie Burden MD, [facility] CPT-4: 91203 04/09/2018 ([id number]) [id number] EST. PATIENT, LEVEL IV Diagnosis: Essential (primary) hypertension[ICD10: I10] Diagnosis: Other emphysema[ICD10: J43.8] Kim Burden MD, [facility] CPT-4: 12907 01/19/2018 ([id number]) 90341 EST. PATIENT, LEVEL IV Diagnosis: Essential (primary) hypertension[ICD10: I10] Diagnosis: Other emphysema[ICD10: J43.8] Diagnosis: Dependence on supplemental oxygen[ICD10: Z99.81] Diagnosis: Hypoxemia[ICD10: R09.02] Diagnosis: Pain in left knee[ICD10: M25.562] Diagnosis: Effusion, left knee[ICD10: M25.462] Kim Burden MD, [facility] CPT- 4: 48174 10/16/2017 03525 EST. PATIENT, LEVEL III Diagnosis: Pain in thoracic spine[ICD10: M54.6] Pebbles Burden MD, [facility] CPT- 4: 67883 09/03/2017 ([id number]) 28767 EST. PATIENT, LEVEL III Diagnosis: Essential (primary) hypertension[ICD10: I10] Diagnosis: Other emphysema[ICD10: J43.8] Kim Burden MD, [facility] CPT-4: 93179 07/31/2017 ([id number]) Miscellaneous no charge Diagnosis: Essential (primary) hypertension[ICD10: I10] Mallorie Burden MD, [facility] CPT-4: 18913 07/18/2017 ([id number]) 68174 EST. PATIENT, LEVEL III Diagnosis: Pain in left knee[ICD10: M25.562] Diagnosis: Effusion, left knee[ICD10: M25.462] Mallorie Burden MD, [facility] CPT-4: 86457 06/16/2017 ([id number]) 75068 EST. PATIENT, LEVEL III Diagnosis: Essential (primary) hypertension[ICD10: I10] Diagnosis: Unsteadiness on feet[ICD10: R26.81] Kim Burden MD [facility] CPT- 4: 64845 05/28/2017 ([id number]) 81175 EST. PATIENT, LEVEL IV Diagnosis: Essential (primary) hypertension[ICD10: I10] Diagnosis: Chronic obstructive pulmonary disease with acute lower respiratory infection[ICD10: J44.0] Kim Burden MD [facility] CPT-4: 84483 05/05/2017 ([id number]) 23246 EST. PATIENT, LEVEL IV Diagnosis: Essential (primary) hypertension[ICD10: I10] Diagnosis: Major depressive disorder, recurrent, mild[ICD10: F33.0] Kim Burden MD [facility] CPT-4: 86404 03/13/2017 ([id number]) 25612 EST. PATIENT, LEVEL IV Diagnosis: Essential (primary) hypertension[ICD10: I10] Diagnosis: Gastro-esophageal reflux disease without esophagitis[ICD10: K21.9] Diagnosis: Chronic obstructive pulmonary disease, unspecified[ICD10: J44.9] Kim Burdne MD [facility] CPT-4: 99682 02/10/2017 ([id number]) 27725 EST. PATIENT, LEVEL IV Diagnosis: Essential (primary) hypertension[ICD10: I10] Diagnosis: Gastro-esophageal reflux disease without esophagitis[ICD10: K21.9] Diagnosis: Chronic obstructive pulmonary disease with acute lower respiratory infection[ICD10: J44.0] Kim Burden MD [facility] CPT-4: 60930 01/14/2017 58743 EST. PATIENT, LEVEL IV Diagnosis: Other fatigue[ICD10: R53.83] Diagnosis: Other malaise[ICD10: R53.81] Diagnosis: Headache[ICD10: R51] Diagnosis: Palpitations[ICD10: R00.2] Diagnosis: Dehydration[ICD10: E86.0] Pebbles Burden MD [facility] CPT-4: 35865 01/07/2017 ([id number]) Miscellaneous no charge Diagnosis: Essential (primary) hypertension[ICD10: I10] Pebbles Burden MD [facility] CPT-4: 33956 01/02/2017 73965 EST. PATIENT, LEVEL IV Diagnosis: Chronic obstructive pulmonary disease, unspecified[ICD10: J44.9] Diagnosis: Essential (primary) hypertension[ICD10: I10] Diagnosis: Other fatigue[ICD10: R53.83] Pebbles Burden MD, [facility] CPT-4: 73418 01/01/2017 ([id number]) Miscellaneous no charge Diagnosis: Essential (primary) hypertension[ICD10: I10] Pebbles Burden MD [facility] CPT-4: 10130 12/20/2016 ([id number]) 87557 EST. PATIENT, LEVEL IV Diagnosis: Essential (primary) hypertension[ICD10: I10] Diagnosis: Major depressive disorder, recurrent, mild[ICD10: F33.0] Diagnosis: Headache[ICD10: R51] Diagnosis: Other fatigue[ICD10: R53.83] Kim Burden MD, [facility] CPT-4: 03822 12/11/2016 ([id number]) 42191 EST. PATIENT, LEVEL IV Diagnosis: Essential (primary) hypertension[ICD10: I10] Diagnosis: Other allergic rhinitis[ICD10: J30.89] Diagnosis: Gastro-esophageal reflux disease without esophagitis[ICD10: K21.9] Kim Burden MD, [facility] CPT-4: 88657 10/15/2016 ([id number]) 12151 EST. PATIENT, LEVEL III Diagnosis: Essential (primary) hypertension[ICD10: I10] Diagnosis: Major depressive disorder, recurrent, mild[ICD10: F33.0] Kim Burden MD, [facility] CPT-4: 33910 07/17/2016 ([id number]) 72385 EST. PATIENT, LEVEL III Diagnosis: Pain in left hip[ICD10: M25.552] Diagnosis: Acute laryngopharyngitis[ICD10: J06.0] Kim Burden MD, [facility] CPT-4: 81609 05/15/2016 ([id number]) 87125 EST. PATIENT, LEVEL III Diagnosis: Fracture of unspecified parts of lumbosacral spine and pelvis, initial encounter for closed fracture[ICD10: S32.9XXA] Diagnosis: Essential (primary) hypertension[ICD10: I10] Kim Burden MD, [facility] CPT-4: 42291 04/23/2016 30397 EST. PATIENT, LEVEL IV Diagnosis: Acute laryngopharyngitis[ICD10: J06.0] Diagnosis: Other allergic rhinitis[ICD10: J30.89] Pebbles Burden MD, [facility] CPT- 4: 14160 03/14/2016 56638 EST. PATIENT, LEVEL IV Diagnosis: Dysuria[ICD10: R30.0] Diagnosis: Left lower quadrant pain[ICD10: R10.32] Pebbles Burden MD, [facility] CPT-4: 31467 02/19/2016 ([id number]) 38740 EST. PATIENT, LEVEL IV Diagnosis: Essential (primary) hypertension[ICD10: I10] Diagnosis: Gastro-esophageal reflux disease without esophagitis[ICD10: K21.9] Diagnosis: Major depressive disorder, recurrent, mild[ICD10: F33.0] Kim Burden MD, [facility] CPT-4: 10891 12/19/2015 ([id number]) 76818 EST. PATIENT, LEVEL IV Diagnosis: ESSENTIAL HYPERTENSION[ICD9: 401.9] Diagnosis: ACUTE URI[ICD9: 465.9] Kim Burden MD, [facility] CPT-4: 47777 03/06/2015 ([id number]) OFFICE VISIT, NEW - LEVEL 4 Diagnosis: ESOPHAGEAL REFLUX[ICD9: 530.81] Diagnosis: ESSENTIAL HYPERTENSION[ICD9: 401.9] Diagnosis: COPD (chronic obstructive pulmonary disease)[ICD9: 496] Diagnosis: ALLERGIC RHINITIS[ICD9: 477.9] Mallorie Burden MD, [facility] CPT-4: 24738 02/07/2015 Plan of Care Planned Activity Notes [...] and swallow. 04/21/2018 Appointment: [phone] [place] (15 min) Moderate 04/21/2018 Patient Education: [...] changes. 04/09/2018 Appointment: [phone] [place] (30 min) Complex 04/09/2018 Patient Education: [...] acute changes. 01/19/2018 Appointment: Kim Burden WPtel: [address] [place], [place] [phone] (15 min) Moderate 01/19/2018 Patient Education: Patient Medication Summary Completed 01/19/2018 Appointment: Kim Burden WPtel: [address] [place], [place] [phone] (15 min) Moderate 01/14/2018 Visit Plan: Medicare [...] surrogate. 12/18/2017 Appointment: Pebbles Lund WPtel: [facility]8 [facility] [facility] - Annual Wellness Visit 12/18/2017 [...] home. 10/16/2017 Appointment: Kim Burden WPtel: [facility] [place] (15 min) Moderate 10/16/2017 Patient Education: Patient [...] concerns. 09/03/2017 Appointment: Pebbles Lund WPtel: [facility] (15 min) Moderate 09/03/2017 Patient Education: Patient Medication Summary Completed 09/03/2017 Appointment: Kim Burden WPtel: [facility] [place] [place] (15 min) Moderate 08/11/2017 Appointment: Kim Burden [facility]Ptel: [phone] (15 min) Moderate 08/11/2017 Patient Education: Patient [...] current treatment. 07/31/2017 Appointment: Kim Burden WPtel: [phone] [facility] (15 min) Moderate 07/31/2017 Patient Education: Patient Medication Summary Completed 07/31/2017 Appointment: Nurse Visit 07/18/2017 Patient Education: Patient Medication Summary Completed 07/18/2017 Patient Education: Patient Medication Summary Completed 07/18/2017 Appointment: Kim Burden WPtel: [phone] [facility] [place] (15 min) Moderate 06/30/2017 Visit Plan: Effusion left knee-fall 2 weeks ago-recommend compression of joint and refer to Ortho for evaluation and treatment-will refer to Dr Pryor/Quinton Mccormick. Patient verbalized understanding of plan. 06/16/2017 Appointment: Mallorie Wetzel WPtel: [phone] [phone] [place] (30 min) Complex 06/16/2017 Patient [...] when active. 05/28/2017 Appointment: Kim Burden [facility]Ptel[phone] [place] (15 min) Moderate 05/28/2017 Patient Education: [...] Burden [facility]el[phone] (15 min) Moderate 05/05/2017 Patient Education: Patient [...] medications. 03/13/2017 Appointment: Kim Burden [facility]Ptel: [phone] (15 min) Moderate 03/13/2017 Patient Education: Patient [...] worsening. 02/10/2017 Appointment: Kim Burden [facility]Ptel: [phone] (15 min) Moderate 02/10/2017 Patient Education: Patient [...] Burden [facility]Ptel[phone] (15 min) Moderate 01/14/2017 Patient Education: Patient [...] concerns. 01/07/2017 Appointment: Pebbles Lund [facility]Ptel: [phone] [place] (30 min) Complex 01/07/2017 Patient Education: Patient [...] 01/01/2017 Appointment: Pebbles Lund [facility]Ptel: [phone] (30 min) Complex 01/01/2017 Patient Education: Patient [...] 12/12/2016 Appointment: Pebbles Lund WPtel: [phone] [place] [facility] - Annual Wellness Visit 12/12/2016 [...] time. 12/11/2016 Appointment: Kim Burden [facility]Ptel: [phone] (15 min) Moderate 12/11/2016 Patient Education: Patient Medication Summary Completed 12/11/2016 Appointment: Mallorie Wetzel [facility]: [phone] (30 min) Complex 12/10/2016 Visit Plan: Hypertension [...] improving. 10/15/2016 Appointment: Kim Burden WPtel: [facility]7 [facility] (15 min) Moderate 10/15/2016 Patient Education: [...] restaurant. 07/17/2016 Appointment: Kim Burden WPtel: [facility]8 [facility] (15 min) Moderate 07/17/2016 Patient Education: Patient Medication Summary Completed 07/17/2016 Appointment: Kim Burden WPtel: [facility]8 [facility] (15 min) Moderate 06/10/2016 Visit Plan: Hip pain - persistent but improving - continue with current treatment plan. Pt to call if her symptoms are not improving or if her hip pain worsens. URI symptoms - supportive care, use otc allergy medications. 05/15/2016 Appointment: Kim Burden WPtel: [facility] [place] (15 min) Moderate 05/15/2016 Patient [...] improving. 04/23/2016 Appointment: Kim Burden WPtel: [phone] [facility] (15 min) Moderate 04/23/2016 Patient Education: Patient Medication Summary Completed 04/23/2016 Patient Education: Hypertension Completed 04/23/2016 Care Plan: X-RAY EXAM OF ABDOMEN LOINC : 89920-4 Pending 03/18/2016 Visit Plan: URI - Pt [...] spray. 03/14/2016 Appointment: Pebbles Lund WPtel: [facility]4 [facility] (30 min) Complex 03/14/2016 Patient Education: Patient Medication Summary Completed 03/14/2016 Patient Education: Patient Medication Summary Completed 02/29/2016 Visit Plan: Flank pain - pt is currently being treated for UTI, but is having continued left flank pain - will get KUB - pt is to notify clinic if symptoms do not improve, or with any concerns. 02/19/2016 Appointment: Pebbles Lund WPtel: [facility]6 [facility] (30 min) Complex 02/19/2016 Patient Education: Patient Medication Summary Completed 02/19/2016 Appointment: Kim Burden WPtel: [facility] (15 min) Moderate 01/22/2016 Visit Plan: Hypertension [...] not improving. 12/19/2015 Appointment: Kim Burden WPtel: [phone] [facility] (15 min) Moderate 12/19/2015 Patient Education: [...] [facility]den [facility]el[phone] [place] Follow up 03/06/2015 Patient Education: Patient Medication [...] Completed 02/07/2015 Care Plan: SCREENINGMAMMOGRAPHYDIGITAL LOINC : 36964-9 Ordered 02/07/2015 Care Plan: COMPLETE CBC AUTOMATED LOINC : 18640-4 Ordered 02/07/2015 Instructions Comment . Dehydration, palpitations, [...] to help decrease GI upset./loose stools - [facility] or [facility] . Hypertension - well controlled - [...] care surrogate. TAKE WITH [employer] AND [employer] ([employer] OR [employer]) . URI - Pt advised to increase [...]
--- OUTSIDE RECORDS SUMMARY | 2019-04-06 10:05 | XMS REPORT | CCD ---
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 Name Role Phone PP Unavailable CCM Unavailable Summary Purpose Interface Exchange Insurance Providers Payer name Policy type / Coverage type Covered libertarian ID Effective Begin Date Effective End Date WPS Medicare Part B Medicare Part B [id number] Unknown AETNA Medicare Part B [id number] Unknown Family history Brother Diagnosis Age At [...] 02/07/2015 Employment Unknown Currently employed works at [employer] 02/07/[address]: 5967446 Quit over 10 years ago 199302/07/2015 Number [...] Instructions fluticasone 50 mcg/actuation nasal spray,suspension RxNorm: 6007290 1 [place] NASAL BID 05/15/2018 05/09/2019 Active fluticasone 50 mcg/actuation nasal spray,suspension RxNorm: 4708166 1 [place] NASAL BID 05/15/2018 05/14/2018 Inactive nystatin 100,000 unit/mL oral suspension RxNorm: 067534 5 Milliliter(s) PO QID 04/21/2018 04/30/2018 Inactive Breo Ellipta 100 mcg-25 mcg/dose powder for inhalation RxNorm: 9701318 1 INH daily 04/09/2018 04/03/2019 Active please call patient with jaramillo before sending prednisone 20 mg tablet RxNorm: 829835 1 Tablet(s) PO BID 04/09/2018 04/13/2018 Inactive start tomorrow Kenalog 40 mg/mL suspension for injection RxNorm: 5147156 1.5 Milliliter(s) Inj 04/09/2018 04/09/2018 Inactive Breo Ellipta 100 mcg-25 mcg/dose powder for inhalation RxNorm: 9807561 1 INH daily 04/09/2018 04/08/2018 Inactive alprazolam 1 mg tablet RxNorm: 961275 1 Tablet(s) PO TID 03/13/2018 12/07/2018 Active losartan 100 mg tablet RxNorm: 776017 TAKE 1 TABLET EVERY EVENING 03/02/2018 02/13/2021 Active Ventolin HFA 90 mcg/actuation aerosol inhaler RxNorm: 558641 2 INH Q4-6H as needed 12/29/2017 02/26/2018 Inactive Ventolin HFA 90 mcg/actuation aerosol inhaler RxNorm: 308325 2 INH Q4-6H as needed 12/29/2017 12/28/2017 Inactive Diflucan 150 mg tablet RxNorm: 484404 1 Tablet(s) PO daily 11/03/2017 11/05/2017 Inactive please call pt to let herknow when to pick- up the med Keflex 500 mg capsule RxNorm: 042691 1 Capsule(s) PO TID 10/23/2017 10/29/2017 Inactive Kenalog 40 mg/mL suspension for injection RxNorm: 1955958 1 Milliliter(s) Inj 10/16/2017 10/16/2017 Inactive ibuprofen 800 mg tablet RxNorm: 000007 TAKE 1 TABLET THREE TIMES DAILY 10/15/2017 01/07/2019 Active Lexapro 10 mg tablet RxNorm: 025035 TAKE 1 TABLET EVERY DAY 10/15/2017 10/09/2018 Active hydrocodone 5 mg-acetaminophen 325 mg tablet RxNorm: 219580 1 Tablet(s) PO QID as needed 09/03/2017 No Stop Date Active omeprazole 20 mg capsule,delayed release RxNorm: 656848 1 Capsule(s) PO BID 09/02/2017 08/27/2018 Active alprazolam 1 mg tablet RxNorm: 734473 1 Tablet(s) PO TID 09/02/2017 03/12/2018 Inactive metoprolol tartrate 50 mg tablet RxNorm: 784432 1/2 Tablet(s) PO BID 06/26/2017 06/20/2018 Active omeprazole 20 mg capsule,delayed release RxNorm: 888176 1 Capsule(s) PO BID 06/05/2017 09/01/2017 Inactive omeprazole 20 mg capsule,delayed release RxNorm: 778750 1 Capsule(s) PO BID 05/28/2017 06/04/2017 Inactive omeprazole 20 mg capsule,delayed release RxNorm: 483677 1 Capsule(s) PO QPM 05/27/2017 05/27/2017 Inactive Breo Ellipta 100 mcg-25 mcg/dose powder for inhalation RxNorm: 4547562 1 INH daily 05/05/2017 04/08/2018 Inactive alprazolam 1 mg tablet RxNorm: 974769 1 Tablet(s) PO TID 02/10/2017 08/07/2017 Inactive metoprolol tartrate 50 mg tablet RxNorm: 151687 1/2 Tablet(s) PO BID 02/10/2017 06/25/2017 Inactive losartan 100 mg tablet RxNorm: 175250 1 Tablet(s) PO QPM 02/10/2017 02/04/2018 Inactive losartan 50 mg tablet RxNorm: 581032 2 Tablet(s) PO QPM 01/23/2017 02/09/2017 Inactive Diflucan 150 mg tablet RxNorm: 554107 1 Tablet(s) PO daily 01/20/2017 01/22/2017 Inactive please call pt to let herknow when to pick- up the med Diflucan 150 mg tablet RxNorm: 680681 1 Tablet(s) PO daily 01/20/2017 01/19/2017 Inactive please call pt to let herknow when to pick- up the med losartan 50 mg tablet RxNorm: 025866 1 Tablet(s) PO QPM 01/14/2017 01/22/2017 Inactive Cipro 500 mg tablet RxNorm: 575569 1 Tablet(s) PO BID 01/08/2017 01/17/2017 Inactive Cipro 500 mg tablet RxNorm: 483247 1 Tablet(s) PO BID 01/08/2017 01/07/2017 Inactive Lexapro 10 mg tablet RxNorm: 790579 TAKE 1 TABLET EVERY DAY 12/20/2016 10/14/2017 Inactive metoprolol tartrate 50 mg tablet RxNorm: 283642 1 Tablet(s) PO in the morning and 1.5 pill at night 12/11/2016 01/13/2017 Inactive spironolactone 25 mg tablet RxNorm: 025851 TAKE 1 TABLET EVERY DAY 11/04/2016 07/31/2017 Inactive metoprolol tartrate 50 mg tablet RxNorm: 359476 TAKE 1 TABLET TWICE DAILY 10/29/2016 12/10/2016 Inactive ibuprofen 800 mg tablet RxNorm: 703466 TAKE 1 TABLET THREE TIMES DAILY 10/21/2016 10/14/2017 Inactive Astepro 0.15 % (205.5 mcg) nasal spray RxNorm: 0154802 1 [place] NASAL BID 10/15/2016 10/09/2017 Inactive Astepro 0.15 % (205.5 mcg) nasal spray RxNorm: 2266698 1 [place] NASAL BID 10/15/2016 10/14/2016 Inactive Astepro 0.15 % (205.5 mcg) nasal spray RxNorm: 4073093 1 [place] NASAL BID 10/15/2016 10/14/2016 Inactive omeprazole 20 mg capsule,delayed release RxNorm: 323324 1 Capsule(s) PO QPM 10/15/2016 05/26/2017 Inactive omeprazole 20 mg capsule,delayed release RxNorm: 127695 1 Capsule(s) QPM 10/15/2016 10/14/2016 Inactive omeprazole 20 mg capsule,delayed release RxNorm: 188540 TAKE 1 CAPSULE TWICE DAILY 09/02/2016 10/14/2016 Inactive Lexapro 10 mg tablet RxNorm: 065205 TAKE 1 TABLET EVERY DAY 08/21/2016 12/19/2016 Inactive calcitonin (salmon) 200 unit/actuation nasal spray RxNorm: 860590 1 [place] NASAL daily ONE SPRAY PER ONE NOSTRIL DAILY- ALTERNATE NOSTRILS DAILY 05/31/2016 05/30/2016 Inactive She will do this for 3 months- If she wants to do a 3 month supply at one time she can without refill calcitonin (salmon) 200 unit/actuation nasal spray RxNorm: 593977 1 [place] NASAL daily ONE SPRAY PER ONE NOSTRIL DAILY- ALTERNATE NOSTRILS DAILY 05/31/2016 07/30/2016 Inactive x3 months- no refills Forteo 20 mcg/dose (600 mcg/2.4 mL) subcutaneous pen injector RxNorm: 1961451 1 injection SQ daily 05/22/2016 05/30/2016 Inactive call pt with jaramillo first Forteo 20 mcg/dose (600 mcg/2.4 mL) subcutaneous pen injector RxNorm: 2162768 1 injection SQ daily 05/22/2016 05/21/2016 Inactive Prolia 60 mg/mL subcutaneous syringe RxNorm: 735852 1 Milliliter(s) SQ every 6 months 05/13/2016 No Stop Date Active Please check jaramillo through insurance and let me know- Thanks! Mary Ellen alprazolam 1 mg tablet RxNorm: 144377 1 Tablet(s) PO TID 05/08/2016 11/01/2016 Inactive Lexapro 10 mg tablet RxNorm: 321408 TAKE 1 TABLET EVERY DAY 04/22/2016 08/20/2016 Inactive spironolactone 25 mg tablet RxNorm: 423387 TAKE 1 TABLET EVERY DAY 04/22/2016 11/03/2016 Inactive Diflucan 150 mg tablet RxNorm: 500793 1 Tablet(s) PO daily 03/20/2016 04/14/2016 Inactive Diflucan 150 mg tablet RxNorm: 014973 1 Tablet(s) PO daily 03/20/2016 03/19/2016 Inactive Augmentin 500 mg-125 mg tablet RxNorm: 364951 1 Tablet(s) PO TID 03/14/2016 03/23/2016 Inactive omeprazole 20 mg capsule,delayed release RxNorm: 230952 1 Tablet(s) PO BID 03/06/2016 09/01/2016 Inactive [SAVINGS FOR NON-COVERED DRUGS -- BIN:367562, PCN: ASPROD1, Group: XXXXX, ID# XXXXXXX, Questions: . THIS IS NOT INSURANCE.] amlodipine 5 mg tablet RxNorm: 457937 TAKE 1 TABLET EVERY DAY 03/01/2016 04/22/2016 Inactive omeprazole 20 mg tablet,delayed release RxNorm: 736869 1 Tablet(s) PO BID 02/27/2016 03/05/2016 Inactive [SAVINGS FOR NON-COVERED DRUGS -- BIN:756025, PCN: ASPROD1, Group: XXXXX, ID# XXXXXXX, Questions: . THIS IS NOT INSURANCE.] spironolactone 25 mg tablet RxNorm: 573931 TAKE 1 TABLET EVERY DAY 12/21/2015 04/21/2016 Inactive Lexapro 10 mg tablet RxNorm: 159296 1 Tablet(s) PO daily 12/19/2015 01/01/2016 Inactive Lexapro 10 mg tablet RxNorm: 554625 1 Tablet(s) PO daily 12/19/2015 02/09/2017 Inactive Lexapro 10 mg tablet RxNorm: 426617 1 Tablet(s) PO daily 12/19/2015 12/18/2015 Inactive alprazolam 1 mg tablet RxNorm: 272431 1 Tablet(s) PO TID 12/01/2015 02/28/2016 Inactive ibuprofen 800 mg tablet RxNorm: 658655 1 Tablet(s) PO TID 10/26/2015 10/20/2016 Inactive alprazolam 1 mg tablet RxNorm: 365632 1 Tablet(s) PO TID 08/23/2015 11/19/2015 Inactive spironolactone 25 mg tablet RxNorm: 342987 1 Tablet(s) PO daily 08/21/2015 12/20/2015 Inactive metoprolol tartrate 50 mg tablet RxNorm: 070576 1 Tablet(s) PO BID 08/10/2015 08/03/2016 Inactive [SAVINGS FOR NON-COVERED DRUGS -- BIN:193659, PCN: ASPROD1, Group: XXXXX, ID# XXXXXXX, Questions: . THIS IS NOT INSURANCE.] omeprazole 20 mg tablet,delayed release RxNorm: 229032 1 Tablet(s) PO BID 08/07/2015 02/02/2016 Inactive [SAVINGS FOR NON-COVERED DRUGS -- BIN:462839, PCN: ASPROD1, Group: XXXXX, ID# XXXXXXX, Questions: . THIS IS NOT INSURANCE.] Keflex 500 mg capsule RxNorm: 748045 1 Capsule(s) PO TID 07/10/2015 07/16/2015 Inactive alprazolam 1 mg tablet RxNorm: 574079 1 Tablet(s) PO TID 06/02/2015 08/22/2015 Inactive alprazolam 1 mg tablet RxNorm: 094496 1 Tablet(s) PO TID 03/29/2015 06/01/2015 Inactive amlodipine 5 mg tablet RxNorm: 180971 1 Tablet(s) PO daily 03/06/2015 02/29/2016 Inactive Nasonex 50 mcg/actuation [place] RxNorm: 348870 1 [place] NASAL daily 03/03/2015 03/02/2015 Inactive Keflex 500 mg capsule RxNorm: 373414 1 Capsule(s) PO TID 03/03/2015 03/02/2015 Inactive Nasonex 50 mcg/actuation [place] RxNorm: 107658 1 [place] NASAL daily 03/03/2015 05/01/2015 Inactive Keflex 500 mg capsule RxNorm: 531377 1 Capsule(s) PO TID 03/03/2015 03/05/2015 Inactive Carafate 1 gram tablet RxNorm: 319009 TAKE 1 TABLET FOUR TIMES DAILY 30 MINUTES BEFORE MEALS AND AT BEDTIME 02/28/2015 12/18/2015 Inactive Kenalog 40 mg/mL suspension for injection RxNorm: 5734591 Milliliter(s) Inj 02/07/2015 02/07/2015 Inactive [SAVINGS FOR NON-COVERED DRUGS -- BIN:149025, PCN: ASPROD1, Group: XXXXX, ID# XXXXXXX, Questions: . THIS IS NOT INSURANCE.] metoprolol tartrate 50 mg tablet RxNorm: 546750 1 Tablet(s) PO BID 02/07/2015 08/09/2015 Inactive [SAVINGS FOR NON-COVERED DRUGS -- BIN:988342, PCN: ASPROD1, Group: XXXXX, ID# XXXXXXX, Questions: . THIS IS NOT INSURANCE.] Carafate 1 gram tablet RxNorm: 452211 1 Tablet(s) PO QID 02/07/2015 02/27/2015 Inactive 30 min before meals and at bedtime omeprazole 20 mg tablet,delayed release RxNorm: 643640 1 Tablet(s) PO BID 02/07/2015 08/05/2015 Inactive [SAVINGS FOR NON-COVERED DRUGS -- BIN:953903, PCN: ASPROD1, Group: XXXXX, ID# XXXXXXX, Questions: . THIS IS NOT INSURANCE.] Vitamin D3 2,000 unit tablet RxNorm: 763731 1 Tablet(s) PO daily No Start Date Active aspirin 81 mg tablet RxNorm: 822665 1 Tablet(s) PO daily No Start Date Active loratadine 10 mg tablet RxNorm: 386164 1 Tablet(s) PO daily No Start Date Active amlodipine 2.5 mg tablet RxNorm: 121372 1 Tablet(s) PO daily No Start Date 03/05/2015 Inactive spironolactone 25 mg tablet RxNorm: 983670 1 Tablet(s) PO daily No Start Date 08/20/2015 Inactive cetirizine 10 mg tablet RxNorm: 0805325 1 Tablet(s) PO daily No Start Date 12/18/2015 Inactive metoprolol tartrate 50 mg tablet RxNorm: 555237 1 Tablet(s) PO daily No Start Date 02/06/2015 Inactive ipratropium bromide 0.06 % nasal spray RxNorm: 916152 nasal No Start Date 12/18/2015 Inactive alprazolam 1 mg tablet RxNorm: 241468 1 Tablet(s) PO TID No Start Date 03/28/2015 Inactive Prolia 60 mg/mL subcutaneous syringe RxNorm: 018856 1 Milliliter(s) SQ every 6 months No Start Date 05/12/2016 Inactive Please check jaramillo through insurance and let me know- Thanks! Mary Ellen ibuprofen 800 mg tablet RxNorm: 449831 1 Tablet(s) PO TID No Start Date 10/25/2015 Inactive Protonix 40 mg tablet,delayed release RxNorm: 148278 1 Tablet(s) PO daily No Start Date 03/05/2015 Inactive Medication Administered Medication Codes Instructions Start Date Status Kenalog 40 mg/mL suspension for injection RxNorm: 1856266 1.5Milliliter 04/09/2018 No longer Active Kenalog 40 mg/mL suspension for injection RxNorm: 4372284 1Milliliter 10/16/2017 No longer Active Kenalog 40 mg/mL suspension for injection RxNorm: 1572197 Milliliter 02/07/2015 No longer Active Immunizations Vaccine [...] Item Item Code Result Date Comp Metabolic Jyo505 NA 138 mEq/L 09/03/2017 Comp Metabolic Njb872 K 3.9 mEq/L 09/03/2017 Comp Metabolic Tie454 CL 102 mEq/L 09/03/2017 Comp Metabolic Yfu979 CO2 32.0 mEq/L 09/03/2017 Comp Metabolic Lgi397 ANION GAP 8 09/03/2017 Comp Metabolic Mvd433 GLUCOSE 89 mg/dL 09/03/2017 Comp Metabolic Tty050 Creat 0.6 mg/dL 09/03/2017 Comp Metabolic Vnc183 eGFR 103 ml/min/1.73m2 09/03/2017 Comp Metabolic Imv866 BUN 10 mg/dL 09/03/2017 Comp Metabolic Jgw057 B/C Ratio 16.7 Ratio 09/03/2017 Comp Metabolic Tmg912 CALCIUM 8.9 mg/dL 09/03/2017 Comp Metabolic Qld626 ALK PHOS 141 U/L 09/03/2017 Comp Metabolic Mie072 AST(SGOT) 12 U/L 09/03/2017 Comp Metabolic Zoo379 ALT(SGPT) 7 U/L 09/03/2017 Comp Metabolic Ees708 BILI T 0.6 mg/dL 09/03/2017 Comp Metabolic Oeu654 ALBUMIN 3.6 g/dL 09/03/2017 Comp Metabolic Uxa579 TPRO 6.6 g/dL 09/03/2017 Comp Metabolic Aks353 GLOB 3.0 g/dL 09/03/2017 Comp Metabolic Exs022 A/G Ratio 1.2 Ratio 09/03/2017 Comp Metabolic Fiz371 Osmo 274 mOsmo 09/03/2017 Hepatic Ufh850 ALBUMIN 3.7 g/dL 08/11/2017 Hepatic Jse431 TPRO 7.0 g/dL 08/11/2017 Hepatic Yds129 GLOB 3.3 g/dL 08/11/2017 Hepatic Qct012 A/G Ratio 1.1 Ratio 08/11/2017 Hepatic Vpc457 ALK PHOS 85 U/L 08/11/2017 Hepatic Tqn062 ALT(SGPT) 11 U/L 08/11/2017 Hepatic Uql404 AST(SGOT) 16 U/L 08/11/2017 Hepatic Iph169 BILI T 0.6 mg/dL 08/11/2017 Hepatic Ppu113 BILI D 0.1 mg/dL 08/11/2017 Hepatic Ytj771 BILI I 0.5 mg/dL 08/11/2017 Hepatic Tqc512 ALBUMIN 3.1 g/dL 07/18/2017 Hepatic Whj127 TPRO 5.9 g/dL 07/18/2017 Hepatic Yac823 GLOB 2.8 g/dL 07/18/2017 Hepatic Zbx875 A/G Ratio 1.1 Ratio 07/18/2017 Hepatic Gon928 ALK PHOS 123 U/L 07/18/2017 Hepatic Omi249 ALT(SGPT) 210 U/L 07/18/2017 Hepatic Lrq187 AST(SGOT) 71 U/L 07/18/2017 Hepatic Iky169 BILI T 1.1 mg/dL 07/18/2017 Hepatic Rgy944 BILI D 0.4 mg/dL 07/18/2017 Hepatic Ugk083 BILI I 0.7 mg/dL 07/18/2017 Cbc With [...] 24.5 % 02/25/2017 Cbc With Differential Ord2 [place]% 7.6 % 02/25/2017 Cbc With Differential Ord2 [...] 1.22 K/ul 02/25/2017 Cbc With Differential Ord2 [place] ABS# 0.4 K/ul 02/25/2017 Cbc With Differential [...] 98.0 fl 01/02/2017 Cbc With Differential Ord2 [place]% 7.8 % 01/02/2017 Cbc With Differential Ord2 [...] 0.90 K/ul 01/02/2017 Cbc With Differential Ord2 [place] ABS# 0.4 K/ul 01/02/2017 Cbc With Differential Ord2 Eos ABS# 0.3 K/ul 01/02/2017 Cbc With Differential Ord2 Baso ABS# 0.0 K/ul 01/02/2017 Lipid Ord30 CHOL 139 mg/dL 12/13/2016 Lipid Ord30 HDL 48.0 mg/dl 12/13/2016 Lipid Ord30 TRIG 84 mg/dL 12/13/2016 Lipid Ord30 LDL 74 mg/dL 12/13/2016 Lipid Ord30 C/HDL 2.9 Ratio 12/13/2016 Comp Metabolic Nuq538 NA 137 mEq/L 12/13/2016 Comp Metabolic Ujq824 K 4.8 mEq/L 12/13/2016 Comp Metabolic Qzh451 CL 101 mEq/L 12/13/2016 Comp Metabolic Ivj884 CO2 32.0 mEq/L 12/13/2016 Comp Metabolic Qpu888 ANION GAP 9 12/13/2016 Comp Metabolic Nzx809 GLUCOSE 95 mg/dL 12/13/2016 Comp Metabolic Pwc641 Creat 0.8 mg/dL 12/13/2016 Comp Metabolic Yno468 eGFR 79 ml/min/1.73m2 12/13/2016 Comp Metabolic Nmp006 BUN 15 mg/dL 12/13/2016 Comp Metabolic Cgu328 B/C Ratio 19.7 Ratio 12/13/2016 Comp Metabolic Fft587 CALCIUM 9.3 mg/dL 12/13/2016 Comp Metabolic Ilw584 ALK PHOS 63 U/L 12/13/2016 Comp Metabolic Soa042 AST(SGOT) 15 U/L 12/13/2016 Comp Metabolic Hgk842 ALT(SGPT) 10 U/L 12/13/2016 Comp Metabolic Jte452 BILI T 0.7 mg/dL 12/13/2016 Comp Metabolic Uhg745 ALBUMIN 3.7 g/dL 12/13/2016 Comp Metabolic Nsz634 TPRO 6.8 g/dL 12/13/2016 Comp Metabolic Dhy507 GLOB 3.2 g/dL 12/13/2016 Comp Metabolic Xry312 A/G Ratio 1.2 Ratio 12/13/2016 Comp Metabolic Gjs182 Osmo 274 mOsmo 12/13/2016 Cbc With Differential [...] 97.4 fl 12/13/2016 Cbc With Differential Ord2 [place]% 9.9 % 12/13/2016 Cbc With Differential Ord2 [...] 1.17 K/ul 12/13/2016 Cbc With Differential Ord2 [place] ABS# 0.4 K/ul 12/13/2016 Cbc With Differential [...] 97.3 fl 12/19/2015 Cbc With Differential Ord2 [place]% 5.9 % 12/19/2015 Cbc With Differential Ord2 MCH 32.1 pg 12/19/2015 Cbc With Differential Ord2 Eos% 3.3 % 12/19/2015 Cbc With Differential Ord2 MCHC 33.0 pg 12/19/2015 Cbc With Differential Ord2 PLT 199 K/ul 12/19/2015 Cbc With Differential Ord2 Baso% 0.2 % 12/19/2015 Cbc With Differential Ord2 Neut ABS# 3.65 K/ul 12/19/2015 Cbc With Differential Ord2 RDW 13.5 % 12/19/2015 Cbc With Differential Ord2 Lymph ABS# 1.53 K/ul 12/19/2015 Cbc With Differential Ord2 [place] ABS# 0.3 K/ul 12/19/2015 Cbc With Differential [...] Ord30 C/HDL 2.8 Ratio 12/19/2015 Comp Metabolic Amp855 NA 135 mEq/L 12/19/2015 Comp Metabolic Efe011 K 4.1 mEq/L 12/19/2015 Comp Metabolic Fbo645 CL 99 mEq/L 12/19/2015 Comp Metabolic Xvn427 CO2 27.0 mEq/L 12/19/2015 Comp Metabolic Dvf759 ANION GAP 13 12/19/2015 Comp Metabolic Xug597 GLUCOSE 83 mg/dL 12/19/2015 Comp Metabolic Wcz228 Creat 0.7 mg/dL 12/19/2015 Comp Metabolic Uum555 eGFR 88 ml/min/1.73m2 12/19/2015 Comp Metabolic Ivz634 BUN 12 mg/dL 12/19/2015 Comp Metabolic Zav804 B/C Ratio 17.4 Ratio 12/19/2015 Comp Metabolic Bzw958 CALCIUM 9.0 mg/dL 12/19/2015 Comp Metabolic Rgm286 ALK PHOS 68 U/L 12/19/2015 Comp Metabolic Irg927 AST(SGOT) 16 U/L 12/19/2015 Comp Metabolic Lzl024 ALT(SGPT) 13 U/L 12/19/2015 Comp Metabolic Vda599 BILI T 0.7 mg/dL 12/19/2015 Comp Metabolic Sbq307 ALBUMIN 4.0 g/dL 12/19/2015 Comp Metabolic Uyo823 TPRO 7.0 g/dL 12/19/2015 Comp Metabolic Vql365 GLOB 3.0 g/dL 12/19/2015 Comp Metabolic Gbt215 A/G Ratio 1.3 Ratio 12/19/2015 Comp Metabolic Dva014 Osmo 269 mOsmo 12/19/2015 Review of Systems [...] NOS CPT-4: J3301 10/16/2017 DRAIN/INJECT JOINT/BURSA CPT-4: 61018 10/16/2017 PRESCRIP TRANSMIT VIA ERX SY CPT-4: G8553 05/05/2017 PRESCRIP TRANSMIT VIA ERX SY CPT-4: G8553 01/14/2017 PPPS, SUBSEQ VISIT CPT- 4: G0439 12/12/2016 PRESCRIP TRANSMIT VIA ERX SY CPT-4: G8553 10/15/2016 ADMIN PNEUMOCOCCAL VACCINE SNOMED CT: 61345412 CPT-4: G0009 08/28/2016 Pneumococcal Polysaccharide Vaccine, 23-Valent, Ad CPT-4: 39113 08/28/2016 PRESCRIP TRANSMIT VIA ERX SY CPT-4: G8553 03/14/2016 PRESCRIP TRANSMIT VIA ERX SY CPT-4: G8553 12/19/2015 THER/PROPH/DIAG INJ SC/IM CPT-4: 12513 02/07/2015 TRIAMCINOLONE ACET INJ NOS CPT-4: J3301 02/07/2015 Vital Signs Date Vital 04/21/2018 Blood Pressure 1: 108/70 Code: 8480-6 BMI: 24.4 Code: 92040-2 Heart Rate 1: 62 bpm Height: 5'1" SpO2: 94% Weight: 129 lbs 04/09/2018 Blood Pressure 1: 138/86 Code: 8480-6 BMI: 25.5 Code: 12598-3 Heart Rate 1: 64 bpm Height: 5'1" SpO2: 99% Temperature: 36.4 (C) / 97.5 (F) Weight: 135 lbs 01/19/2018 Blood Pressure 1: 128/76 Code: 8480-6 BMI: 25.9 Code: 45076-2 Heart Rate 1: 65 bpm Height: 5'1" SpO2: 98% Weight: 137 lbs 12/18/2017 Blood Pressure 1: 144/82 Code: 8480-6 BMI: 26.1 Code: 59327-2 Heart Rate 1: 57 bpm Height: 5'1" SpO2: 97% Waist Measure (cm): 74 cm Weight: 138 lbs 10/16/2017 Blood Pressure 1: 142/88 Code: 8480-6 BMI: 25.5 Code: 88781-7 Heart Rate 1: 63 bpm Height: 5'1" SpO2: 97% Weight: 135 lbs 09/03/2017 Blood Pressure 1: 144/90 Code: 8480-6 BMI: 26.3 Code: 11134-5 Heart Rate 1: 91 bpm Height: 5'1" SpO2: 96% Weight: 139 lbs 07/31/2017 Blood Pressure 1: 136/90 Code: 8480-6 BMI: 26.3 Code: 18764-8 Height: 5'1" Weight: 139 lbs 07/18/2017 Blood Pressure 1: 136/84 Code: 8480-6 06/16/2017 Blood Pressure 1: 136/84 Code: 8480-6 BMI: 26.5 Code: 40260-1 Heart Rate 1: 72 bpm Height: 5'1" SpO2: 97% Weight: 140 lbs 05/28/2017 Blood Pressure 1: 138/78 Code: 8480-6 BMI: 26.1 Code: 22921-3 Heart Rate 1: 70 bpm Height: 5'1" SpO2: 98% Weight: 138 lbs 05/05/2017 Blood Pressure 1: 140/86 Code: 8480-6 BMI: 25.3 Code: 64102-3 Heart Rate 1: 66 bpm Height: 5'1" SpO2: 99% Weight: 134 lbs 03/13/2017 Blood Pressure 1: 126/74 Code: 8480-6 BMI: 25.3 Code: 00575-3 Heart Rate 1: 73 bpm Height: 5'1" SpO2: 98% Weight: 134 lbs 02/10/2017 Blood Pressure 1: 148/88 Code: 8480-6 BMI: 25.9 Code: 35516-5 Heart Rate 1: 84 bpm Height: 5'1" SpO2: 97% Weight: 137 lbs 01/14/2017 Blood Pressure 1: 134/86 Code: 8480-6 BMI: 25.7 Code: 46200-5 Heart Rate 1: 83 bpm Height: 5'1" SpO2: 95% Weight: 136 lbs 01/07/2017 Blood Pressure 1: 136/88 Code: 8480-6 BMI: 25.1 Code: 47268-7 Heart Rate 1: 86 bpm Height: 5'1" SpO2: 94% Weight: 133 lbs 01/02/2017 Blood Pressure 1: 122/68 Code: 8480-6 Blood Pressure 2: 116/78 Code: 8480-6 01/01/2017 Blood Pressure 1: 90/52 Code: 8480-6 BMI: 25.1 Code: 67516- 5 Heart Rate 1: 86 bpm Height: 5'1" SpO2: 99% Weight: 133 lbs 12/20/2016 Blood Pressure 1: 120/76 Code: 8480-6 12/12/2016 Blood Pressure 1: 130/72 Code: 8480-6 BMI: 24.8 Code: 63386-5 Heart Rate 1: 62 bpm Height: 5'1" SpO2: 98% Waist Measure (cm): 79 cm Weight: 131 lbs 12/11/2016 Blood Pressure 1: 132/70 Code: 8480-6 BMI: 24.8 Code: 42934-0 Heart Rate 1: 60 bpm Height: 5'1" Weight: 131 lbs 10/15/2016 Blood Pressure 1: 108/66 Code: 8480-6 BMI: 24.8 Code: 56308-5 Heart Rate 1: 60 bpm Height: 5'1" Weight: 131 lbs 07/17/2016 Blood Pressure 1: 128/82 Code: 8480-6 BMI: 25.3 Code: 71812-7 Heart Rate 1: 50 bpm Height: 5'2" Weight: 136 lbs 05/15/2016 Blood Pressure 1: 108/70 Code: 8480-6 BMI: 23.4 Code: 89799-1 Heart Rate 1: 54 bpm Height: 5'2" SpO2: 96% Weight: 126 lbs 04/23/2016 Blood Pressure 1: 112/60 Code: 8480-6 BMI: 23.6 Code: 75232-0 Heart Rate 1: 92 bpm Height: 5'2" SpO2: 95% Weight: 127 lbs 03/14/2016 Blood Pressure 1: 118/74 Code: 8480-6 BMI: 24.0 Code: 98988-1 Heart Rate 1: 51 bpm Height: 5'2" SpO2: 94% Temperature: 36.8 (C) / 98.3 (F) Weight: 129 lbs 02/19/2016 Blood Pressure 1: 110/62 Code: 8480-6 BMI: 23.4 Code: 54055-6 Heart Rate 1: 74 bpm Height: 5'2" SpO2: 97% Weight: 126 lbs 12/19/2015 Blood Pressure 1: 108/74 Code: 8480-6 BMI: 23.6 Code: 92349-7 Heart Rate 1: 52 bpm Height: 5'2" Weight: 127 lbs 03/06/2015 Blood Pressure 1: 136/88 Code: 8480-6 Heart Rate 1: 64 bpm Weight: 129 lbs 02/07/2015 Blood Pressure 1: 142/90 Code: 8480-6 BMI: 24.5 Code: 25523-1 Heart Rate 1: 82 bpm Height: 5'2" [...] data Encounters Encounter Performer Location Codes Date ([id number]) [id number] EST. PATIENT, LEVEL IV Diagnosis: Essential (primary) hypertension[ICD10: I10] Diagnosis: Other emphysema[ICD10: J43.8] Diagnosis: Candidal stomatitis[ICD10: B37.0] [facility] CPT- 4: 00494 04/21/2018 ([id number]) [id number] EST. PATIENT, LEVEL III Diagnosis: Chronic obstructive pulmonary disease with (acute) exacerbation[ICD10: J44.1] [facility] CPT-4: 69815 04/09/2018 ([id number]) 06588 EST. PATIENT, LEVEL IV Diagnosis: Essential (primary) hypertension[ICD10: I10] Diagnosis: Other emphysema[ICD10: J43.8] Kim Burden MD, [facility] CPT-4: 35622 01/19/2018 ([id number]) 16590 EST. PATIENT, LEVEL IV Diagnosis: Essential (primary) hypertension[ICD10: I10] Diagnosis: Other emphysema[ICD10: J43.8] Diagnosis: Dependence on supplemental oxygen[ICD10: Z99.81] Diagnosis: Hypoxemia[ICD10: R09.02] Diagnosis: Pain in left knee[ICD10: M25.562] Diagnosis: Effusion, left knee[ICD10: M25.462] Kim Burden MD, [facility] CPT- 4: 12716 10/16/2017 [id number] EST. PATIENT, LEVEL III Diagnosis: Pain in thoracic spine[ICD10: M54.6] Pebbles Burden MD, [facility] CPT- 4: 48683 09/03/2017 ([id number]) 35458 EST. PATIENT, LEVEL III Diagnosis: Essential (primary) hypertension[ICD10: I10] Diagnosis: Other emphysema[ICD10: J43.8] Kim Burden MD, [facility] CPT-4: 75429 07/31/2017 ([id number]) Miscellaneous no charge Diagnosis: Essential (primary) hypertension[ICD10: I10] Mallorie Burden MD, [facility] CPT-4: 48341 07/18/2017 ([id number]) 60729 EST. PATIENT, LEVEL III Diagnosis: Pain in left knee[ICD10: M25.562] Diagnosis: Effusion, left knee[ICD10: M25.462] Mallorie Burden MD, [facility] CPT-4: 23188 06/16/2017 ([id number]) 95346 EST. PATIENT, LEVEL III Diagnosis: Essential (primary) hypertension[ICD10: I10] Diagnosis: Unsteadiness on feet[ICD10: R26.81] Kim Burden MD, [facility] CPT- 4: 91103 05/28/2017 ([id number]) 16399 EST. PATIENT, LEVEL IV Diagnosis: Essential (primary) hypertension[ICD10: I10] Diagnosis: Chronic obstructive pulmonary disease with acute lower respiratory infection[ICD10: J44.0] Kim Burden MD [facility] CPT-4: 97202 05/05/2017 ([id number]) 22205 EST. PATIENT, LEVEL IV Diagnosis: Essential (primary) hypertension[ICD10: I10] Diagnosis: Major depressive disorder, recurrent, mild[ICD10: F33.0] Kim Burden MD [facility] CPT-4: 16383 03/13/2017 ([id number]) 43598 EST. PATIENT, LEVEL IV Diagnosis: Essential (primary) hypertension[ICD10: I10] Diagnosis: Gastro-esophageal reflux disease without esophagitis[ICD10: K21.9] Diagnosis: Chronic obstructive pulmonary disease, unspecified[ICD10: J44.9] Kim Burden MD [facility] CPT-4: 02506 02/10/2017 ([id number]) 45505 EST. PATIENT, LEVEL IV Diagnosis: Essential (primary) hypertension[ICD10: I10] Diagnosis: Gastro-esophageal reflux disease without esophagitis[ICD10: K21.9] Diagnosis: Chronic obstructive pulmonary disease with acute lower respiratory infection[ICD10: J44.0] Kim Burden MD [facility] CPT-4: 50218 01/14/2017 [id number] EST. PATIENT, LEVEL IV Diagnosis: Other fatigue[ICD10: R53.83] Diagnosis: Other malaise[ICD10: R53.81] Diagnosis: Headache[ICD10: R51] Diagnosis: Palpitations[ICD10: R00.2] Diagnosis: Dehydration[ICD10: E86.0] Pebbles Burden MD, [facility] CPT-4: 35992 01/07/2017 ([id number]) Miscellaneous no charge Diagnosis: Essential (primary) hypertension[ICD10: I10] Pebbles Burden MD, [facility] CPT-4: 31719 01/02/2017 53895 EST. PATIENT, LEVEL IV Diagnosis: Chronic obstructive pulmonary disease, unspecified[ICD10: J44.9] Diagnosis: Essential (primary) hypertension[ICD10: I10] Diagnosis: Other fatigue[ICD10: R53.83] Pebbles Burden MD [facility] CPT-4: 50815 01/01/2017 ([id number]) Miscellaneous no charge Diagnosis: Essential (primary) hypertension[ICD10: I10] Pebbles Burden MD [facility] CPT-4: 25362 12/20/2016 ([id number]) 47016 EST. 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 PATIENT, LEVEL IV Diagnosis: Essential (primary) hypertension[ICD10: I10] Diagnosis: Other allergic rhinitis[ICD10: J30.89] Diagnosis: Gastro-esophageal reflux disease without esophagitis[ICD10: K21.9] Kim Burden MD [facility] CPT-4: 01532 10/15/2016 ([id number]) 83705 EST. 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 PATIENT, LEVEL III Diagnosis: Pain in left hip[ICD10: M25.552] Diagnosis: Acute laryngopharyngitis[ICD10: J06.0] Kim Burden MD [facility] CPT-4: 89998 05/15/2016 ([id number]) 83330 EST. PATIENT, LEVEL III Diagnosis: Fracture of unspecified parts of lumbosacral spine and pelvis, initial encounter for closed fracture[ICD10: S32.9XXA] Diagnosis: Essential (primary) hypertension[ICD10: I10] Kim Burden MD [facility] CPT-4: 67396 04/23/2016 71111 EST. PATIENT, LEVEL IV Diagnosis: Acute laryngopharyngitis[ICD10: J06.0] Diagnosis: Other allergic rhinitis[ICD10: J30.89] Pebbles Burden MD, [facility] CPT- 4: 26120 03/14/2016 96537 EST. PATIENT, LEVEL IV Diagnosis: Dysuria[ICD10: R30.0] Diagnosis: Left lower quadrant pain[ICD10: R10.32] Pebbles Burden MD, [facility] CPT-4: 84770 02/19/2016 ([id number]) 59304 EST. PATIENT, LEVEL IV Diagnosis: Essential (primary) hypertension[ICD10: I10] Diagnosis: Gastro-esophageal reflux disease without esophagitis[ICD10: K21.9] Diagnosis: Major depressive disorder, recurrent, mild[ICD10: F33.0] Kim Burden MD, [facility] CPT-4: 64628 12/19/2015 ([id number]) 92899 EST. PATIENT, LEVEL IV Diagnosis: ESSENTIAL HYPERTENSION[ICD9: 401.9] Diagnosis: ACUTE URI[ICD9: 465.9] Kim Burden MD, [facility] CPT-4: 48794 03/06/2015 ([id number]) OFFICE VISIT, NEW - LEVEL 4 Diagnosis: ESOPHAGEAL REFLUX[ICD9: 530.81] Diagnosis: ESSENTIAL HYPERTENSION[ICD9: 401.9] Diagnosis: COPD (chronic obstructive pulmonary disease)[ICD9: 496] Diagnosis: ALLERGIC RHINITIS[ICD9: 477.9] Mallorie Burden MD, [facility] CPT-4: 31609 02/07/2015 Plan of Care Planned Activity Notes [...] swallow. 04/21/2018 [facility]ment[facility] ([facility] min[facility] Moderate 04/21/2018 Patient [...] changes. 04/09/2018 App[facility]ment: [phone] (30 min) Complex 04/09/2018 Patient [...] acute changes. 01/19/2018 Appointment: Kim Burden WPtel: [facility] (15 min) Moderate 01/19/2018 Patient Education: Patient Medication Summary Completed 01/19/2018 Appointment: Kim Burden WPtel: [facility] (15 min) Moderate 01/14/2018 Visit Plan: Medicare [...] WPtel: [facility] [facility] - Annual Wellness Visit 12/18/2017 Patient [...] home. 10/16/2017 Appointment: Kim Burden WPtel: [phone] [facility] (15 min) Moderate 10/16/2017 Patient Education: Patient [...] concerns. 09/03/2017 Appointment: Pebbles Lund [facility]el[phone] (15 min) Moderate 09/03/2017 Patient Education: Patient Medication Summary Completed 09/03/2017 Appointment: Kim Burden WPtel: [facility] [place] (15 min) Moderate 08/11/2017 Appointment: Kim Burden WPtel: [phone] [facility] (15 min) Moderate 08/11/2017 Patient Education: Patient [...] treatment. 07/31/2017 Appointment: Kim Burden WPtel: [phone] [facility] (15 min) Moderate 07/31/2017 Patient Education: Patient Medication Summary Completed 07/31/2017 Appointment: Nurse Visit 07/18/2017 Patient Education: Patient Medication Summary Completed 07/18/2017 Patient Education: Patient Medication Summary Completed 07/18/2017 Appointment: Kim Burden WPtel: [facility] (15 min) Moderate 06/30/2017 Visit Plan: Effusion left knee-fall 2 weeks ago-recommend compression of joint and refer to Ortho for evaluation and treatment-will refer to Dr Pryor/Quinton Mccormick. Patient verbalized understanding of plan. 06/16/2017 Appointment: Mallorie Wetzel WPtel: [phone] [phone] [place] (30 min) Complex 06/16/2017 Patient [...] when active. 05/28/2017 Appointment: Kim Burden WPtel: [facility] [place] (15 min) Moderate 05/28/2017 Patient Education: [...] changes. 05/05/2017 Appointment: Kim Burden WPtel: [phone] [facility] (15 min) Moderate 05/05/2017 Patient Education: Patient [...] medications. 03/13/2017 Appointment: Kim Burden WPtel: [phone] [facility] (15 min) Moderate 03/13/2017 Patient Education: Patient [...] worsening. 02/10/2017 Appointment: Kim Burden WPtel: [phone] [facility] (15 min) Moderate 02/10/2017 Patient Education: Patient [...] improving. 01/14/2017 Appointment: [phone] ([facility] min) Moderate 01/14/2017 Patient [...] concerns. 01/07/2017 Appointment: Pebbles Lund [facility]Ptel[phone] (30 min) Complex 01/07/2017 Patient [...] pressures. 01/01/2017 Appointment: Pebbles Lund WPtel: [address] [facility] (30 min) Complex 01/01/2017 Patient [...] surrogate. 12/12/2016 Appointment: Pebbles Lund WPtel[phone] [facility] - Annual Wellness Visit 12/12/2016 Patient [...] this time. 12/11/2016 Appointment: Kim Burden WPtel: [facility] (15 min) Moderate 12/11/2016 Patient Education: Patient Medication Summary Completed 12/11/2016 Appointment: Mallorie Wetzel WPtel: [address] [place] [address] (30 min) Complex 12/10/2016 Visit Plan: Hypertension [...] not improving. 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 07/17/2016 Appointment: Kim Burden WPtel: [facility] (15 min) Moderate 07/17/2016 Patient Education: Patient Medication Summary Completed 07/17/2016 Appointment: Kim Burden WPtel: [facility] (15 min) Moderate 06/10/2016 Visit Plan: Hip pain - persistent but improving - continue with current treatment plan. Pt to call if her symptoms are not improving or if her hip pain worsens. URI symptoms - supportive care, use otc allergy medications. 05/15/2016 Appointment: Kim Burden WPtel: [facility] (15 min) Moderate 05/15/2016 Patient Education: [...] not improving. 04/23/2016 Appointment: Kim Burden WPtel: [facility] (15 min) Moderate 04/23/2016 Patient Education: Patient Medication Summary Completed 04/23/2016 Patient Education: Hypertension Completed 04/23/2016 Care Plan: X-RAY EXAM OF ABDOMEN LOINC : 68450-8 Pending 03/18/2016 Visit Plan: URI - Pt [...] allergy spray. 03/14/2016 Appointment: Pebbles Lund WPtel: [address] [place], [place] [phone] (30 min) Complex 03/14/2016 Patient Education: Patient Medication Summary Completed 03/14/2016 Patient Education: Patient Medication Summary Completed 02/29/2016 Visit Plan: Flank pain - pt is currently being treated for UTI, but is having continued left flank pain - will get KUB - pt is to notify clinic if symptoms do not improve, or with any concerns. 02/19/2016 Appointment: Pebbles Lund WPtel: [address] [place], [place] [id number] (30 min) Complex 02/19/2016 Patient Education: Patient Medication Summary Completed 02/19/2016 Appointment: Kim Burden WPtel: [address] [place], [place] [id number] (15 min) Moderate 01/22/2016 Visit Plan: Hypertension [...] improving. 12/19/2015 Appointment: [phone] (15 min) Moderate 12/19/2015 Patient Education: [...] Finish RX. 03/06/2015 Appointment: Kim Burden WPtel: [facility] Follow up 03/06/2015 Patient Education: Patient Medication [...] Completed 02/07/2015 Care Plan: SCREENINGMAMMOGRAPHYDIGITAL LOINC : 01383-6 Ordered 02/07/2015 Care Plan: COMPLETE CBC AUTOMATED LOINC : 64990-1 Ordered 02/07/2015 Instructions Comment . Dehydration, palpitations, [...] to help decrease GI upset./loose stools - [facility] or [facility] . Hypertension - well controlled - continue [...] care surrogate. TAKE WITH [employer] ([employer] OR [email or web address]) . URI - Pt advised to increase [...]
--- OUTSIDE RECORDS SUMMARY | 2019-04-06 10:18 | XMS REPORT | Continuity of Care Document ---
Author Organization Unknown Address Unknown Allergies Active Description Code Type Severity Reaction Onset Reported/Identified Relationship to Patient Clinical Status Yes No Known Drug Allergies [id number] Drug Allergy Unknown N/A 10/07/2010 Yes ERYTHROMYCIN ERYTHROMYCIN Unknown N/A 01/07/2017 Yes azithromycin [id number] Drug Allergy Unknown N/A 09/02/2017 Medications There is no data. Problems Date Dx Coded Attending Type Code Diagnosis Diagnosed By 06/23/2006 Ot 724.4 10/07/2010 Ot 682.6 CELLULITIS OF LEG 10/07/2010 Ot 729.81 SWELLING OF LIMB 02/03/2011 Ot 719.46 JOINT PAIN-L/LEG 04/11/2012 Ot 719.45 JOINT PAIN-PELVIS 04/11/2012 Ot 726.5 ENTHESOPATHY OF HIP 06/23/2013 [...] ANTONY Newman Ot 737.30 IDIOPATHIC SCOLIOSIS 06/23/2013 ANTONY DOHERTY MD Ot 738.4 ACQ SPONDYLOLISTHESIS 06/23/2013 ANTONY DOHERTY MD Ot 787.01 NAUSEA WITH VOMITING 07/10/2013 GHANSHYAM SANDOVAL APRN Ot 924.11 CONTUSION OF KNEE 07/10/2013 GHANSHYAM SANDOVAL APRN Ot 959.7 LOWER LEG INJURY NOS 07/10/2013 GHANSHYAM SANDOVAL MAGAZINE EDITOR Ot E000.8 OTHER EXTERNAL CAUSE STATUS 07/10/2013 [...] PAZ MD Ot 414.01 CORONARY ATHEROSCLEROSIS OF [place] CORON 10/19/2013 PADMINI DE LA PAZ MD [...] BESSY JONES, ANTONY M Ot 789.00 10/26/2014 BRIANA JONES, ES Espinoza Ot V72.84 11/01/2014 BESSY JONES, ANTONY M Ot 466.0 11/07/2014 BESSY JONES, ANTONY M Ot 786.2 12/26/2014 BESSY JONES, ANTONY M Ot 466.0 01/18/2015 BESSY JONES, ANTONY M Ot 786.2 01/18/2015 BESSY JONES, ANTONY M Ot 786.2 01/18/2015 BESSY JONES, ANTONY M Ot 786.2 01/18/2015 Ot 611.72 01/18/2015 Ot 435.9 01/18/2015 Ot 729.5 01/18/2015 Ot V76.12 01/18/2015 Ot 722.6 01/18/2015 DEL JONES, BRIAN Espinoza Ot 722.52 01/18/2015 BESSY JONES, ANTONY M [...] 02/07/2015 Ot V76.12 02/07/2015 Ot 722.6 02/07/2015 DEL JONES, BRIAN Espinoza Ot 722.52 02/07/2015 BESSY JONES, ANTONY M [...] JONES, ANTONY M Ot 786.2 03/10/2015 ALEX MICHEL Ot V76.12 03/20/2015 BESSY JONES, ANTONY Newman Ot 786.2 02/19/2016 Ot 729.5 PAIN IN LIMB 02/19/2016 Ot V76.12 OTH SCREEN MAMMO- MALIGN NEOPLASM OF [place] 02/19/2016 Ot 722.6 DISC DEGENERATION NOS 02/19/2016 DEL JONES, BRIAN Espinoza Ot 722.52 LUMB/LUMBOSAC DISC DEGEN 02/19/2016 ANTONY DOHERTY MD Ot 553.3 DIAPHRAGMATIC HERNIA 02/19/2016 NATONY DOHERTY MD Ot 562.10 DIVERTICULOSIS COLON (W/O [...] IN LIMB 02/29/2016 Ot V76.12 OTH SCREEN MAMMO- MALIGN NEOPLASM OF [place] 02/29/2016 Ot 722.6 DISC [...] 466.0 ACUTE BRONCHITIS 02/29/2016 ANAND ALEX Paty COAL SAMPLER Ot V76.12 OTH SCREEN MAMMO-MALIGN NEOPLASM OF [place] 02/29/2016 USHA JONES, YAZAN Farrell Ot R10.84 GENERALIZED ABDOMINAL PAIN 02/29/2016 NONA BLACKMAN MAGAZINE EDITOR Ot Z12.31 ENCNTR SCREEN MAMMOGRAM FOR MALIGNANT NE 03/01/2016 NONA BLACKMAN MAGAZINE EDITOR Ot Z12.31 ENCNTR SCREEN MAMMOGRAM FOR MALIGNANT NE 03/01/2016 NONA BLACKMAN MAGAZINE EDITOR Ot R10.84 GENERALIZED ABDOMINAL PAIN 03/01/2016 NONA BLACKMAN MAGAZINE EDITOR Ot Z12.31 ENCNTR SCREEN MAMMOGRAM FOR MALIGNANT NE 03/14/2016 USHA JONES, YAZAN Farrell Ot R10.84 GENERALIZED ABDOMINAL PAIN 03/23/2016 NONA BLACKMAN MAGAZINE EDITOR Ot R10.84 GENERALIZED ABDOMINAL PAIN 03/23/2016 NONA BLACKMAN MAGAZINE EDITOR Ot Z12.31 ENCNTR SCREEN MAMMOGRAM FOR MALIGNANT NE 03/27/2016 MISSY JONES, PATRICIA Sandy Ot N83.20 UNSPECIFIED OVARIAN CYSTS 03/28/2016 MISSY [...] BARDALES MD Ot Y92.[address] IN [facility] NON-INSTITUT (PRIVATE 03/29/2016 MADDY BARDALES MD Ot Y99.8 OTHER EXTERNAL CAUSE STATUS 04/03/2016 MADDY BARDALES MD Ot S09.90XA UNSPECIFIED INJURY OF HEAD, INITIAL ENCO 04/03/2016 MADDY BARDALES MD Ot S32.592A OTH FRACTURE OF LEFT PUBIS, INIT ENCNTR 04/03/2016 CATIA JONES, MADDY Espinoza Ot W01.0XXA FALL SAME LEV FROM SLIP/TRIP W/O STRIKE 04/03/2016 MADDY BARDALES MD Ot Y92.[address] IN [facility] NON-INSTITUT (PRIVATE 04/03/2016 MADDY BARDALES MD Ot Y99.8 OTHER EXTERNAL CAUSE STATUS 04/18/2016 MISSY JONES, PATRICIA Sandy Ot N83.20 UNSPECIFIED OVARIAN CYSTS 05/22/2016 NONA BLACKMAN MAGAZINE EDITOR Ot S32.592D OTH FRACTURE OF LEFT PUBIS, SUBS FOR FX 06/12/2016 USHA JONES, YAZAN Farrell Ot M81.0 AGE-RELATED OSTEOPOROSIS W/O CURRENT PAT 06/12/2016 NONA BLACKMAN APRN Ot S32.592D OTH FRACTURE OF LEFT PUBIS, SUBS FOR FX 09/16/2016 Ot V76.12 OTH SCREEN MAMMO- MALIGN NEOPLASM OF [place] 09/16/2016 Ot 722.6 DISC [...] Espinoza Ot V72.84 EXAM PRE-OPERATIVE NOS 09/16/2016 ANTONY DOHERTY MD Ot 786.2 COUGH 09/16/2016 ANTONY DOHERTY MD Ot 466.0 ACUTE BRONCHITIS 09/16/2016 ALEX MICHEL Ot V76.12 OTH SCREEN MAMMO-MALIGN NEOPLASM OF [place] 09/16/2016 YAZAN KERR MD Ot R10.84 GENERALIZED ABDOMINAL PAIN 09/16/2016 YEHUDA, NONA M MAGAZINE EDITOR Ot R10.84 GENERALIZED ABDOMINAL PAIN 09/16/2016 NONA BLACKMAN MAGAZINE EDITOR Ot Z12.31 ENCNTR SCREEN MAMMOGRAM FOR MALIGNANT NE 09/16/2016 MISSY JONES, PATRICIA N Ot N83.20 UNSPECIFIED OVARIAN CYSTS 09/16/2016 YAZAN KERR MD Ot M81.0 AGE-RELATED OSTEOPOROSIS W/O CURRENT PAT 09/16/2016 NONA BLACKMAN MAGAZINE EDITOR Ot S32.592D OTH FRACTURE OF LEFT PUBIS, SUBS FOR FX 09/18/2016 MISSY JONES, PATRICIA N Ot D27.1 BENIGN NEOPLASM OF LEFT OVARY 10/11/2016 MISSY JONES, PATRICIA N Ot D27.1 BENIGN NEOPLASM OF LEFT OVARY 01/07/2017 NONA BLACKMAN MAGAZINE EDITOR Ot E86.0 DEHYDRATION 01/07/2017 NONA BLACKMAN MAGAZINE EDITOR Ot R00.1 BRADYCARDIA, UNSPECIFIED 01/07/2017 BESSY JONES, ANTONY Newman Ot 466.0 ACUTE BRONCHITIS 01/09/2017 NONA BLACKMAN MAGAZINE EDITOR Ot E86.0 DEHYDRATION 01/09/2017 NONA BLACKMAN MAGAZINE EDITOR Ot R00.1 BRADYCARDIA, UNSPECIFIED 02/27/2017 YAZAN KERR [...] KNEE, INITIAL ENCOUNTE 05/24/2017 YAMILEX JONES, ES Arthur Ot W18.30XA FALL ON SAME LEVEL, UNSPECIFIED, INITIAL 05/24/2017 YAMILEX JONES, ES Gibson Ot Y92.[address] 05/24/2017 YAMILEX JONES, ES Gibson Ot Z82.49 FAMILY HX OF ISCHEM HEART DIS AND OTH DI 05/24/2017 YAMILEX JONES, SE Gibson Ot Z87.19 PERSONAL HISTORY OF OTHER [...] J43.9 EMPHYSEMA, UNSPECIFIED 05/26/2017 YAMILEX JONES, ES Arthur Ot K21.9 GASTRO-ESOPHAGEAL REFLUX DISEASE WITHOUT 05/26/2017 YAMILEX JONES, ES Gibson Ot M19.90 UNSPECIFIED OSTEOARTHRITIS, UNSPECIFIED 05/26/2017 YAMILEX JONES, ES Arthur Ot M25.562 PAIN IN LEFT KNEE 05/26/2017 YAMILEX JONES, ES Arthur Ot S09.90XA UNSPECIFIED INJURY OF HEAD, INITIAL ENCO 05/26/2017 YAMILEX JONES, ES Gibson Ot S80.02XA CONTUSION OF LEFT KNEE, INITIAL ENCOUNTE 05/26/2017 YAMILEX JONES, ES Arthur Ot W18.30XA FALL ON SAME LEVEL, UNSPECIFIED, [...] OF BOTH CERVIX AND UTER 05/26/2017 YAMILEX JONES, ES Gibson Ot Z90.89 ACQUIRED ABSENCE OF OTHER ORGANS 05/27/2017 YAMILEX JONES, ES Arthur Ot F41.9 ANXIETY DISORDER, UNSPECIFIED 05/27/2017 YAMILEX JONES, ES Gibson Ot I10 ESSENTIAL (PRIMARY) HYPERTENSION 05/27/2017 YAMILEX JONES, ES Gibson Ot J43.9 EMPHYSEMA, UNSPECIFIED 05/27/2017 YAMILEX JONES, ES Arthur Ot K21.9 GASTRO-ESOPHAGEAL REFLUX DISEASE WITHOUT 05/27/2017 YAMILEX JONES, ES Gibson Ot M19.90 UNSPECIFIED OSTEOARTHRITIS, UNSPECIFIED 05/27/2017 YAMILEX JONES, ES Arthur Ot M25.562 PAIN IN LEFT KNEE 05/27/2017 YAMILEX JONES, ES Gibson Ot S09.90XA UNSPECIFIED INJURY OF HEAD, INITIAL ENCO 05/27/2017 ES KAMINSKI MD Ot S80.02XA CONTUSION OF LEFT KNEE, INITIAL ENCOUNTE 05/27/2017 YAMILEX OJNES, ES Gibson Ot W18.30XA FALL ON SAME LEVEL, UNSPECIFIED, INITIAL 05/27/2017 YAMILEX JONES, ES Gibson Ot Y92.[address] 05/27/2017 ES KAMINSKI MD Ot Z82.49 FAMILY HX OF ISCHEM HEART DIS AND OTH DI 05/27/2017 YAMILEX JONES ES Arthur Ot Z87.19 PERSONAL HISTORY OF OTHER DISEASES OF 05/27/2017 ES KAMINSKI MD Ot Z87.891 PERSONAL HISTORY OF NICOTINE DEPENDENCE 05/27/2017 YAMILEX JONES, ES Arthur Ot Z90.710 ACQUIRED ABSENCE OF BOTH CERVIX [...] ENCOUNTER 06/04/2017 MADDY BARDALES MD Ot Z79.82 RETIREMENT (CURRENT) USE OF ASPIRIN 06/04/2017 MADDY BARDALES [...] ISCHEM HEART DIS AND OTH DI 07/15/2017 ES KAMINSKI MD Ot Z87.19 PERSONAL HISTORY OF OTHER DISEASES OF TH 07/15/2017 YAMILEX JONES, ES Gibson Ot Z87.891 PERSONAL HISTORY OF NICOTINE DEPENDENCE 07/15/2017 YAMILEX JONES, ES Gibson Ot Z90.710 ACQUIRED ABSENCE OF BOTH CERVIX AND UTER 07/15/2017 YAMILEX JONES, ES Gibson Ot Z90.89 ACQUIRED ABSENCE OF OTHER ORGANS 07/15/2017 Ot V76.12 OTH SCREEN MAMMO- MALIGN NEOPLASM OF [place] 07/15/2017 Ot 722.6 DISC [...] SUBS FOR FX 07/15/2017 USHA JONES, YAZAN Farrell Ot D72.819 DECREASED WHITE BLOOD CELL COUNT, [...] SUPPLEMENTAL OXYGEN 08/07/2017 Ot V76.12 OTH SCREEN MAMMO- MALIGN NEOPLASM OF [place] 08/07/2017 Ot 722.6 DISC [...] Sandy Ot N83.20 UNSPECIFIED OVARIAN CYSTS 08/07/2017 MISSY JONES, PATRICIA Sandy Ot D27.1 BENIGN NEOPLASM OF LEFT OVARY 08/07/2017 YAZAN KERR MD Ot M81.0 AGE-RELATED OSTEOPOROSIS W/O CURRENT PAT 08/07/2017 NONA BLACKMAN APRN Ot S32.592D OTH FRACTURE OF LEFT PUBIS, SUBS FOR FX 08/07/2017 YAZAN KERR MD Ot D72.819 DECREASED WHITE BLOOD CELL COUNT, UNSPEC 08/27/2017 MOSES LARIOS DO Ot K52.9 NONINFECTIVE GASTROENTERITIS AND COLITIS 08/27/2017 MOSES LARIOS DO Ot R93.3 ABNORMAL FINDINGS ON DX IMAGING OF PRT D 08/27/2017 MOSES LARIOS DO Ot Z01.818 ENCOUNTER FOR OTHER PREPROCEDURAL EXAMIN 09/02/2017 MOSES LARIOS DO Ot K52.9 NONINFECTIVE GASTROENTERITIS AND COLITIS 09/02/2017 MOSES LARIOS DO Ot R93.3 ABNORMAL FINDINGS ON DX IMAGING OF PRT D 09/02/2017 MOSES LARIOS DO Ot Z01.818 ENCOUNTER FOR OTHER PREPROCEDURAL EXAMIN 09/02/2017 MOSES LARIOS DO Ot I10 ESSENTIAL (PRIMARY) HYPERTENSION 09/02/2017 MOSES LARIOS DO Ot I25.10 ATHSCL HEART DISEASE OF [place] CORONARY 09/02/2017 MOSES LARIOS DO Ot J44.9 CHRONIC OBSTRUCTIVE PULMONARY DISEASE, U 09/02/2017 MOSES LARIOS DO Ot K21.9 GASTRO-ESOPHAGEAL REFLUX DISEASE WITHOUT 09/02/2017 MOSES LARIOS DO Ot K57.30 DVRTCLOS OF LG INT W/O PERFORATION OR AB 09/02/2017 MOSES LARIOS DO Ot M81.0 AGE-RELATED OSTEOPOROSIS W/O CURRENT PAT 09/02/2017 MOSES LARIOS DO Ot R19.7 DIARRHEA, UNSPECIFIED 09/02/2017 MOSES LARIOS DO Ot Z79.899 OTHER RETIREMENT (CURRENT) DRUG THERAPY 09/02/2017 MOSES LARIOS DO [...] DO Ot I25.10 ATHSCL HEART DISEASE OF [place] CORONARY 09/08/2017 MOSES LARIOS DO Ot J44.9 CHRONIC OBSTRUCTIVE PULMONARY DISEASE, U 09/08/2017 MOSES LARIOS DO Ot K21.9 GASTRO-ESOPHAGEAL REFLUX DISEASE WITHOUT 09/08/2017 MOSES LARIOS DO Ot K57.30 DVRTCLOS OF LG INT W/O PERFORATION OR AB 09/08/2017 MOSES LARIOS DO Ot M81.0 AGE-RELATED OSTEOPOROSIS W/O CURRENT PAT 09/08/2017 MOSES LARIOS DO Ot R19.7 DIARRHEA, UNSPECIFIED 09/08/2017 MOSES LARIOS DO Ot 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.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 HOUSE COUNSELOR (CURRENT) 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 THERAPY 09/08/2017 MOSES LARIOS DO [...] K21.9 GASTRO-ESOPHAGEAL REFLUX DISEASE WITHOUT 09/08/2017 LELE JONES, YANCY Z Ot K58.9 IRRITABLE BOWEL SYNDROME WITHOUT DIARRHE 09/08/2017 LELE JONES YANCY Z Ot M81.0 AGE-RELATED OSTEOPOROSIS W/O CURRENT PAT 09/08/2017 LELE JONES, YANCY Z Ot S22.079A UNSP FRACTURE OF T9-T10 VERTEBRA, INIT F 09/08/2017 LELE JONES YANCY Z Ot W19.XXXA UNSPECIFIED FALL, INITIAL ENCOUNTER 09/08/2017 LELE JONES YANCY Z Ot 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 09/08/2017 LELE JONES YANCY Z Ot Z79.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 HOUSE COUNSELOR (CURRENT) DRUG THERAPY 09/08/2017 LELE JONES YANCY Z Ot Z87.891 PERSONAL HISTORY OF NICOTINE DEPENDENCE 09/08/2017 LELE JONES AYNCY Z Ot F32.9 MAJOR DEPRESSIVE DISORDER, SINGLE [...] K21.9 GASTRO-ESOPHAGEAL REFLUX DISEASE WITHOUT 09/08/2017 LELE JONES, YANCY Z Ot K58.9 IRRITABLE BOWEL SYNDROME WITHOUT DIARRHE 09/08/2017 LELE JONES, YANCY Z Ot M81.0 AGE-RELATED OSTEOPOROSIS W/O CURRENT PAT 09/08/2017 LELE JONES YANCY Z Ot S22.079A UNSP FRACTURE OF T9-T10 VERTEBRA, INIT F 09/08/2017 LELE JONES YANCY Z Ot W19.XXXA UNSPECIFIED FALL, INITIAL ENCOUNTER 09/08/2017 LELE JONES YANCY Z Ot 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 09/08/2017 LELE JONES YANCY Z Ot Z79.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 HOUSE COUNSELOR (CURRENT) DRUG THERAPY 09/08/2017 LELE JONES YANCY Z Ot Z87.891 PERSONAL HISTORY OF NICOTINE DEPENDENCE 09/24/2017 ALEX MICHEL COAL SAMPLER Ot M43.16 SPONDYLOLISTHESIS, LUMBAR REGION 09/24/2017 ALEX MICHEL COAL SAMPLER Ot 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, UNSPECIFIED 09/24/2017 ALEX MICHEL COAL SAMPLER Ot S22.070A WEDGE COMPRESSION FRACTURE OF T9-T10 ADA 09/24/2017 ALEX MICHEL COAL SAMPLER Ot W19.XXXA UNSPECIFIED FALL, INITIAL ENCOUNTER 09/24/2017 NONA BLACKMAN MAGAZINE EDITOR Ot K44.9 DIAPHRAGMATIC HERNIA WITHOUT OBSTRUCTION 09/24/2017 NONA BLACKMAN MAGAZINE EDITOR Ot S22.079A UNSP FRACTURE OF T9-T10 VERTEBRA, INIT F 10/03/2017 LELE JONES YANCY Z Ot F32.9 MAJOR DEPRESSIVE DISORDER, SINGLE EPISOD 10/03/2017 LELE JONES YANCY Z Ot F41.9 ANXIETY DISORDER, UNSPECIFIED 10/03/2017 LELE JONES, YANCY Z Ot I10 ESSENTIAL (PRIMARY) HYPERTENSION 10/03/2017 LELE JONES YANCY Z Ot I71.2 THORACIC AORTIC ANEURYSM, WITHOUT RUPTUR 10/03/2017 SUWAN MD, YANCY Z Ot J44.9 CHRONIC OBSTRUCTIVE PULMONARY DISEASE, U 10/03/2017 LELE JONES YANCY Z Ot K21.9 GASTRO-ESOPHAGEAL REFLUX DISEASE WITHOUT 10/03/2017 LELE JONES, YANCY Z Ot K58.9 IRRITABLE BOWEL SYNDROME WITHOUT DIARRHE 10/03/2017 LELE JONES YANCY Z Ot M81.0 AGE-RELATED OSTEOPOROSIS W/O CURRENT PAT 10/03/2017 LELE JONES YANCY Z Ot S22.079A UNSP FRACTURE OF T9-T10 VERTEBRA, INIT F 10/03/2017 LELE JONES YANCY Z Ot W19.XXXA UNSPECIFIED FALL, INITIAL ENCOUNTER 10/03/2017 LELE JONES YANCY Z Ot Z79.82 RETIREMENT (CURRENT) USE OF ASPIRIN 10/03/2017 LELE JONES YANCY Z Ot Z79.899 OTHER RETIREMENT (CURRENT) DRUG THERAPY 10/03/2017 LELE JONES YANCY Z Ot Z87.891 PERSONAL HISTORY OF NICOTINE DEPENDENCE 10/06/2017 LELE JONES YANCY Z Ot F32.9 MAJOR DEPRESSIVE DISORDER, SINGLE EPISOD 10/06/2017 LELE JONES YANCY Z Ot F41.9 ANXIETY DISORDER, UNSPECIFIED 10/06/2017 LELE JONES, YANCY Z Ot I10 ESSENTIAL (PRIMARY) HYPERTENSION 10/06/2017 LELE JONES YANCY Z Ot I71.2 THORACIC [...] 10/06/2017 LELE JONES YANCY Z Ot 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 10/06/2017 LELE JONES YANCY Z Ot Z79.899 OTHER RETIREMENT (CURRENT) DRUG THERAPY 10/06/2017 LELE JONES, YANCY Z Ot Z87.891 PERSONAL HISTORY OF NICOTINE DEPENDENCE 10/16/2017 LELE JONES YANCY Z Ot F32.9 MAJOR DEPRESSIVE DISORDER, SINGLE EPISOD 10/16/2017 LELE JONES, YANCY Z Ot F41.9 ANXIETY DISORDER, UNSPECIFIED 10/16/2017 LELE JONES YANCY Z Ot I10 ESSENTIAL (PRIMARY) HYPERTENSION 10/16/2017 LELE JONES YANCY Z Ot I71.2 THORACIC AORTIC ANEURYSM, WITHOUT RUPTUR 10/16/2017 LELE JONES YANCY Z Ot J44.9 CHRONIC OBSTRUCTIVE PULMONARY DISEASE, U 10/16/2017 LELE JONES YANCY Z Ot K21.9 GASTRO-ESOPHAGEAL REFLUX DISEASE WITHOUT 10/16/2017 LELE JONES, YANCY Z Ot K58.9 IRRITABLE BOWEL SYNDROME WITHOUT DIARRHE 10/16/2017 LELE JONES YANCY Z Ot M81.0 AGE-RELATED OSTEOPOROSIS W/O CURRENT PAT 10/16/2017 LELE JONES, YANCY Z Ot S22.070A WEDGE COMPRESSION FRACTURE OF T9-T10 ADA 10/16/2017 LELE JONES, YANCY Z Ot W19.XXXA UNSPECIFIED FALL, INITIAL ENCOUNTER 10/16/2017 LELE JONES YANCY Z Ot 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 10/16/2017 LELE JONES YANCY Z Ot Z79.899 OTHER RETIREMENT (CURRENT) DRUG THERAPY 10/16/2017 LELE JONES, YANCY Z Ot Z87.891 PERSONAL HISTORY OF NICOTINE DEPENDENCE 11/30/2017 KENROY OSEIP Ot F32.9 MAJOR DEPRESSIVE DISORDER, SINGLE EPISOD 11/30/2017 FARNAZKENROY Brand COAL SAMPLER Ot F41.9 ANXIETY DISORDER, UNSPECIFIED 11/30/2017 KENROY OSEI COAL SAMPLER Ot I10 ESSENTIAL (PRIMARY) HYPERTENSION 11/30/2017 KENROY OSEI COAL SAMPLER Ot J44.1 CHRONIC OBSTRUCTIVE PULMONARY DISEASE W 11/30/2017 KENROY OSEIP Ot K21.9 GASTRO- ESOPHAGEAL REFLUX DISEASE WITHOUT 11/30/2017 KENROY OSEI COAL SAMPLER Ot R05 COUGH 11/30/2017 FARNAZKENROY Ot Z79.52 RETIREMENT (CURRENT) USE OF SYSTEMIC STER 11/30/2017 FARNAZKENROY Brand Ot 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 11/30/2017 FARNAZKENROY Ot Z82.49 FAMILY HX OF ISCHEM HEART DIS AND OTH DI 11/30/2017 FARNAZKENROY Brand Ot Z87.19 PERSONAL HISTORY OF OTHER DISEASES OF TH 11/30/2017 FARNAZKENROY Brand Ot Z87.891 PERSONAL HISTORY OF NICOTINE DEPENDENCE 11/30/2017 FARNAZKENROY Brand Ot Z88.1 ALLERGY STATUS TO OTHER ANTIBIOTIC AGENT 11/30/2017 FARNAZKENROY Brand Ot Z90.710 ACQUIRED ABSENCE OF BOTH CERVIX AND UTER 11/30/2017 KENROY OSEI Ot Z90.89 ACQUIRED ABSENCE OF OTHER ORGANS 12/02/2017 ENGRA RAMIREZ DO Ot F32.9 MAJOR DEPRESSIVE DISORDER, SINGLE EPISOD 12/02/2017 NEGRA RAMIREZ DO Ot F41.9 ANXIETY DISORDER, UNSPECIFIED 12/02/2017 NEGRA RAMIREZ DO Ot I10 ESSENTIAL (PRIMARY) HYPERTENSION 12/02/2017 NEGRA RAMIREZ DO Ot J06.9 ACUTE UPPER RESPIRATORY INFECTION, UNSPE 12/02/2017 NEGRA RAMIREZ DO Ot J40 BRONCHITIS, NOT SPECIFIED ACUTE OR CH 12/02/2017 NEGRA RAMIREZ DO Ot J43.9 EMPHYSEMA, UNSPECIFIED 12/02/2017 NEGRA RAMIREZ DO Ot K21.9 GASTRO-ESOPHAGEAL REFLUX DISEASE WITHOUT 12/02/2017 NEGRA ARMIREZ DO Ot R09.81 NASAL CONGESTION 12/02/2017 NEGRA RAMIREZ DO Ot Z79.52 RETIREMENT (CURRENT) USE OF SYSTEMIC STER 12/02/2017 NEGRA RAMIREZ DO Ot 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 12/02/2017 NEGRA RAMIREZ DO Ot Z82.49 FAMILY HX OF ISCHEM HEART DIS AND OTH DI 12/02/2017 NEGRA RAMIREZ DO Ot Z87.19 PERSONAL HISTORY OF OTHER DISEASES OF TH 12/02/2017 NEGRA RAMIREZ DO Ot Z87.891 PERSONAL HISTORY OF NICOTINE DEPENDENCE 12/02/2017 NEGRA RAMIREZ DO Ot Z88.1 ALLERGY STATUS TO OTHER ANTIBIOTIC AGENT 12/02/2017 ASHLEY NEGRA K Ot Z90.49 ACQUIRED ABSENCE OF OTHER SPECIFIED PART 12/02/2017 ASHLEY NGERA K Ot Z90.710 ACQUIRED ABSENCE OF BOTH CERVIX AND UTER 12/02/2017 ASHLEY NEGRA K Ot Z90.89 ACQUIRED ABSENCE OF OTHER ORGANS 12/04/2017 ASHLEY NEGRA GUILLEN Ot F32.9 MAJOR DEPRESSIVE DISORDER, SINGLE EPISOD 12/04/2017 ASHLEY DONEGRA Ot F41.9 ANXIETY DISORDER, UNSPECIFIED 12/04/2017 ASHLEY DO NEGRA K Ot I10 ESSENTIAL (PRIMARY) HYPERTENSION 12/04/2017 ASHLEY NEGRA GUILLEN Ot J06.9 ACUTE UPPER RESPIRATORY INFECTION, UNSPE 12/04/2017 ASHLEY NEGRA GUILLEN Ot J40 BRONCHITIS, NOT SPECIFIED ACUTE OR CH 12/04/2017 ASHLEY NEGRA GUILLEN Ot J43.9 EMPHYSEMA, UNSPECIFIED 12/04/2017 ASHLEY NEGRA GUILLEN Ot K21.9 GASTRO-ESOPHAGEAL REFLUX DISEASE WITHOUT 12/04/2017 ASHLEY DONEGRA Ot R09.81 NASAL CONGESTION 12/04/2017 ASHLEY DO NEGRA K Ot Z79.52 HALFWAY HOUSE COUNSELOR (CURRENT) USE OF SYSTEMIC STER 12/04/2017 ASHLEY NEGRA GUILLEN Ot Z79.82 RETIREMENT (CURRENT) USE OF ASPIRIN 12/04/2017 ASHLEY NEGRA GUILLEN Ot Z82.49 FAMILY HX OF ISCHEM HEART DIS AND OTH DI 12/04/2017 NEGRA RAMIREZ DO Ot Z87.19 PERSONAL HISTORY OF OTHER DISEASES OF TH 12/04/2017 NEGRA RAMIREZ DO Ot Z87.891 PERSONAL HISTORY OF NICOTINE DEPENDENCE 12/04/2017 ASHLEY NEGRA GUILLEN Ot Z88.1 ALLERGY STATUS TO OTHER ANTIBIOTIC AGENT 12/04/2017 NEGRA RAMIREZ DO Ot Z90.49 ACQUIRED ABSENCE OF OTHER SPECIFIED PART 12/04/2017 ASHLEY NEGRA Ot Z90.710 ACQUIRED ABSENCE OF BOTH CERVIX AND UTER 12/04/2017 ASHLEY NEGRA Ot Z90.89 ACQUIRED ABSENCE OF OTHER ORGANS 12/08/2017 ASHLEY NEGRA GUILLEN Ot F32.9 MAJOR DEPRESSIVE DISORDER, SINGLE EPISOD 12/08/2017 ASHLEY GUILLEN NEGRA Ponce Ot F41.9 ANXIETY DISORDER, UNSPECIFIED 12/08/2017 NEGRA RAMIREZ DO Ot I10 ESSENTIAL (PRIMARY) HYPERTENSION 12/08/2017 ASHLEY GUILLEN NEGRA Ponce Ot J06.9 ACUTE UPPER RESPIRATORY INFECTION, UNSPE 12/08/2017 NEGRA RAMIREZ DO Ot J40 BRONCHITIS, NOT SPECIFIED ACUTE OR CH 12/08/2017 ASHLEY GUILLEN NEGRA Ponce Ot J43.9 EMPHYSEMA, UNSPECIFIED 12/08/2017 ASHLEY GUILLEN NEGRA Ponce Ot K21.9 GASTRO-ESOPHAGEAL REFLUX DISEASE WITHOUT 12/08/2017 ASHLEY GUILLEN NEGRA Ponce Ot R09.81 NASAL CONGESTION 12/08/2017 ASHLEY GUILLEN NEGRA Ponce Ot Z79.52 HALFWAY HOUSE COUNSELOR (CURRENT) USE OF SYSTEMIC STER 12/08/2017 ASHLEY GUILLEN NEGRA Ponce Ot Z79.82 RETIREMENT (CURRENT) USE OF ASPIRIN 12/08/2017 ASHLEY GUILLEN NEGRA Ponce Ot Z82.49 FAMILY HX OF ISCHEM HEART DIS AND OTH DI 12/08/2017 ASHLEY GUILLEN NEGRA Ponce Ot Z87.19 PERSONAL HISTORY OF OTHER DISEASES OF TH 12/08/2017 NEGRA RAMIREZ DO Ot Z87.891 PERSONAL HISTORY OF NICOTINE DEPENDENCE 12/08/2017 ASHLEY GUILLEN NEGRA Ponce Ot Z88.1 ALLERGY STATUS TO OTHER ANTIBIOTIC AGENT 12/08/2017 ASHLEY GUILLEN NEGRA Ponce Ot Z90.49 ACQUIRED ABSENCE OF OTHER SPECIFIED PART 12/08/2017 ASHLEY GUILLEN NEGRA Ponce Ot Z90.710 ACQUIRED ABSENCE OF BOTH CERVIX AND UTER 12/08/2017 ASHLEY GUILLEN NEGRA Ponce Ot Z90.89 ACQUIRED ABSENCE OF OTHER ORGANS 03/05/2018 Ot 721.3 03/05/2018 Ot 782.3 03/05/2018 Ot 611.72 LUMP OR MASS IN BREAST 03/05/2018 Ot 435.9 TRANS CEREB ISCHEMIA NOS 03/05/2018 Ot 729.5 PAIN IN LIMB 03/05/2018 Ot V76.12 OTH SCREEN MAMMO- MALIGN NEOPLASM OF LEANN 03/05/2018 Ot 722.6 DISC DEGENERATION NOS 03/05/2018 DEL JONES, BRIAN Espinoza Ot 722.52 LUMB/LUMBOSAC DISC DEGEN 03/05/2018 ANTONY DOHERTY MD Ot 553.3 DIAPHRAGMATIC HERNIA 03/05/2018 ANTONY DOHERTY MD Ot 562.10 DIVERTICULOSIS COLON (W/O MENT OF HEMORR 03/05/2018 ANTONY DOHERTY MD Ot 625.9 FEM GENITAL SYMPTOMS NOS 03/05/2018 ANTONY DOHERTY MD Ot 783.21 LOSS OF WEIGHT 03/05/2018 ANTONY DOHERTY MD Ot 789.00 ABDOMINAL PAIN, UNSPECIFIED SITE 03/05/2018 ES WARREN MD Ot V72.84 EXAM PRE-OPERATIVE NOS 03/05/2018 ANTONY DOHERTY MD Ot 786.2 COUGH 03/05/2018 ANTONY DOHETRY MD Ot 466.0 ACUTE BRONCHITIS 03/05/2018 ALEX MICHEL Ot V76.12 OTH SCREEN MAMMO-MALIGN NEOPLASM OF LEANN 03/05/2018 USHA JONES, YAZAN Farrell Ot R10.84 GENERALIZED ABDOMINAL PAIN 03/05/2018 NONA BLACKMAN MAGAZINE EDITOR Ot R10.84 GENERALIZED ABDOMINAL PAIN 03/05/2018 NONA BLACKMAN MAGAZINE EDITOR Ot Z12.31 ENCNTR SCREEN MAMMOGRAM FOR MALIGNANT NE 03/05/2018 MISSY JONES, PATRICIA Sandy Ot N83.20 UNSPECIFIED OVARIAN CYSTS 03/05/2018 DEL JONES, BRIAN Espinoza Ot 722.52 LUMB/LUMBOSAC DISC DEGEN 03/05/2018 ANTONY DOHERTY MD Ot 553.3 DIAPHRAGMATIC HERNIA 03/05/2018 ANTONY DOHERTY MD Ot 562.10 DIVERTICULOSIS COLON (W/O MENT OF HEMORR 03/05/2018 ANTONY DOHERTY MD Ot 625.9 FEM GENITAL SYMPTOMS NOS 03/05/2018 ANTONY DOHERTY MD Ot 783.21 LOSS OF WEIGHT 03/05/2018 ANTONY DOHERTY MD Ot 789.00 ABDOMINAL PAIN, UNSPECIFIED SITE 03/05/2018 ES WARREN MD Ot V72.84 EXAM PRE-OPERATIVE NOS 03/05/2018 ANTONY DOHERTY MD Ot 786.2 COUGH 03/05/2018 ANTONY DOHERTY MD Ot 466.0 ACUTE BRONCHITIS 03/05/2018 ALEX MICHEL Ot V76.12 OTH SCREEN MAMMO-MALIGN NEOPLASM OF LEANN 03/05/2018 USHA JONES, YAZAN Farrell Ot R10.84 GENERALIZED ABDOMINAL PAIN 03/05/2018 NONA BLACKMAN APRN Ot R10.84 GENERALIZED ABDOMINAL PAIN 03/05/2018 NONA BLACKMAN APRN Ot Z12.31 ENCNTR SCREEN MAMMOGRAM FOR MALIGNANT NE 03/05/2018 MISSY JONES, PATRICIA Sandy Ot N83.20 UNSPECIFIED OVARIAN CYSTS 03/05/2018 MISSY JONES, PATRICIA Sandy Ot D27.1 BENIGN NEOPLASM OF LEFT OVARY 03/05/2018 YAZAN KERR MD Ot M81.0 AGE-RELATED OSTEOPOROSIS W/O CURRENT PAT 03/05/2018 NONA BLACKMAN APRN Ot S32.592D OTH FRACTURE OF LEFT PUBIS, SUBS FOR FX 03/05/2018 YAZAN KERR MD Ot D72.819 DECREASED WHITE BLOOD CELL COUNT, UNSPEC 03/05/2018 MOSES LARIOS DO Ot K44.9 DIAPHRAGMATIC HERNIA WITHOUT OBSTRUCTION 03/05/2018 MOSES LARIOS DO Ot K63.89 OTHER SPECIFIED DISEASES OF INTESTINE 03/05/2018 ALEX MICHEL COAL SAMPLER Ot M43.16 SPONDYLOLISTHESIS, LUMBAR REGION 03/05/2018 ALEX MICHEL COAL SAMPLER Ot 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, UNSPECIFIED 03/05/2018 ALEX MICHEL COAL SAMPLER Ot S22.070A WEDGE COMPRESSION FRACTURE OF T9-T10 ADA 03/05/2018 ALEX MICHELP Ot W19.XXXA UNSPECIFIED FALL, INITIAL ENCOUNTER 03/05/2018 NONA BLACKMAN APRN Ot K44.9 DIAPHRAGMATIC HERNIA WITHOUT OBSTRUCTION 03/05/2018 NONA BLACKMAN APRN Ot S22.079A UNSP FRACTURE OF T9-T10 VERTEBRA, INIT F 03/05/2018 LELE JONES, YANCY Z Ot S22.070A WEDGE COMPRESSION FRACTURE OF T9-T10 ADA 03/05/2018 LELE JONES, YANCY Z Ot X58.XXXA EXPOSURE TO OTHER SPECIFIED FACTORS, INI 03/05/2018 LELE JONES, YANCY Z Ot Z01.818 ENCOUNTER FOR OTHER PREPROCEDURAL EXAMIN 03/05/2018 LELE JONES, YANCY Z Ot F32.9 MAJOR DEPRESSIVE DISORDER, SINGLE EPISOD 03/05/2018 LELE JONES, YANCY Z Ot F41.9 ANXIETY DISORDER, UNSPECIFIED 03/05/2018 LELE JONES, YANCY Z Ot I10 ESSENTIAL (PRIMARY) HYPERTENSION 03/05/2018 LELE JONES, YANCY Z Ot I71.2 THORACIC AORTIC ANEURYSM, WITHOUT RUPTUR 03/05/2018 LELE JONES, YANCY Z Ot J44.9 CHRONIC OBSTRUCTIVE PULMONARY DISEASE, U 03/05/2018 LELE JONES, YANCY Z Ot K21.9 GASTRO-ESOPHAGEAL REFLUX DISEASE WITHOUT 03/05/2018 LELE JONES, YANCY Z Ot K58.9 IRRITABLE BOWEL SYNDROME WITHOUT DIARRHE 03/05/2018 LELE JONES, YANCY Z Ot M81.0 AGE-RELATED OSTEOPOROSIS W/O CURRENT PAT 03/05/2018 LELE JONES, YANCY Z Ot S22.070A WEDGE COMPRESSION FRACTURE OF T9-T10 ADA 03/05/2018 LELE JONES, YANCY Z Ot W19.XXXA UNSPECIFIED FALL, INITIAL ENCOUNTER 03/05/2018 LELE JONES, YANCY Z Ot Z79.82 RETIREMENT (CURRENT) USE OF ASPIRIN 03/05/2018 LELE JONES, YANCY Z Ot Z79.899 OTHER RETIREMENT (CURRENT) DRUG THERAPY 03/05/2018 LELE JONES, YANCY Z Ot Z87.891 PERSONAL HISTORY OF NICOTINE DEPENDENCE 03/17/2019 BESSY JONES, ANTONY Newman Ot 786.2 COUGH 03/17/2019 BESSY JONES, ANTONY Newman Ot 466.0 ACUTE BRONCHITIS 03/17/2019 ALEX MICHEL Ot V76.12 OTH SCREEN MAMMO-MALIGN NEOPLASM OF LEANN 03/17/2019 USHA JONES, YAZAN Farrell Ot R10.84 GENERALIZED ABDOMINAL PAIN 03/17/2019 NONA BLACKMAN APRN Ot R10.84 GENERALIZED ABDOMINAL PAIN 03/17/2019 NONA BLACKMAN APRN Ot Z12.31 ENCNTR SCREEN MAMMOGRAM FOR MALIGNANT NE 03/17/2019 MISSY JONES, PATRICIA Sandy Ot N83.20 UNSPECIFIED OVARIAN CYSTS 03/17/2019 MISSY JONES, PATRICIA Sandy Ot 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070A WEDGE COMPRESSION FRACTURE OF T9-T10 ADA 03/17/2019 ALEX MICHELP Ot W19.XXXA UNSPECIFIED FALL, INITIAL ENCOUNTER 03/17/2019 NONA BLACKMAN MAGAZINE EDITOR Ot K44.9 DIAPHRAGMATIC HERNIA WITHOUT OBSTRUCTION 03/17/2019 NONA BLACKMAN MAGAZINE EDITOR Ot S22.079A UNSP FRACTURE OF T9-T10 VERTEBRA, INIT F 03/17/2019 LELE JONES, YANCY Z Ot S22.070A WEDGE COMPRESSION FRACTURE OF T9-T10 ADA 03/17/2019 LELE JONES, YANCY Z Ot X58.XXXA EXPOSURE TO OTHER SPECIFIED FACTORS, INI 03/17/2019 LELE JONES, YANCY Z Ot Z01.818 ENCOUNTER FOR OTHER PREPROCEDURAL EXAMIN 03/17/2019 LELE JONES, YANCY Z Ot F32.9 MAJOR DEPRESSIVE DISORDER, SINGLE EPISOD 03/17/2019 LELE JONES, YANCY Z Ot F41.9 ANXIETY DISORDER, UNSPECIFIED 03/17/2019 LELE JONES, YANCY Z Ot I10 ESSENTIAL (PRIMARY) HYPERTENSION 03/17/2019 LELE JONES, YANCY Z Ot I71.2 THORACIC AORTIC ANEURYSM, WITHOUT RUPTUR 03/17/2019 LELE JONES, YANCY Z Ot J44.9 CHRONIC OBSTRUCTIVE PULMONARY DISEASE, U 03/17/2019 LELE JONES, YANCY Z Ot K21.9 GASTRO-ESOPHAGEAL REFLUX DISEASE WITHOUT 03/17/2019 LELE JONES YANCY Z Ot K58.9 IRRITABLE BOWEL SYNDROME WITHOUT DIARRHE 03/17/2019 LELE JONES YANCY Z Ot M81.0 AGE-RELATED OSTEOPOROSIS W/O CURRENT PAT 03/17/2019 LELE JONES YANCY Z Ot S22.070A WEDGE COMPRESSION FRACTURE OF T9-T10 ADA 03/17/2019 LELE JONES YANCY Z Ot W19.XXXA UNSPECIFIED FALL, INITIAL ENCOUNTER 03/17/2019 LELE JONES YANCY Z Ot 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 03/17/2019 LELE JONES YANCY Z Ot Z79.899 OTHER RETIREMENT (CURRENT) DRUG THERAPY 03/17/2019 LELE JONES YANCY Z Ot Z87.891 PERSONAL HISTORY OF NICOTINE DEPENDENCE 03/21/2019 NONA BLACKMAN APRN Ot R06.00 DYSPNEA, UNSPECIFIED 03/21/2019 NONA BLACKMAN APRN Ot R07.9 CHEST PAIN, UNSPECIFIED Procedures Code Description Performed By Performed On 83.96 INJECTION INTO BURSA 06/23/2013 [id number] RELEASE OMENTUM, PERCUTANEOUS ENDOSCOPIC 07/16/2017 [id number] RESECTION OF GALLBLADDER, PERCUTANEOUS E 07/16/2017 [id number] FLUOROSCOPY OF BILE DUCTS USING LOW OSMO 07/16/2017 Results Test Result Range Complete urinalysis with reflex to culture - 01/07/17 16:25 Urine color determination YELLOW NRG Urine clarity determination CLEAR NRG Urine pH measurement by test strip 6 5-9 Specific gravity of urine by test strip 1.015 1.016-1.022 Urine protein assay by test strip, semi-quantitative [...] sediment leukocyte count by microscopy (number/high power field) [HPF] NRG Bacteria detection in urine sediment [...] Automated erythrocyte mean corpuscular hemoglobin concentration measurement (mass/volume) 32 g/dL 32-36 Automated erythrocyte distribution width ratio 12.9 % 10.0- 14.5 Automated blood platelet count (count/volume) 175 10*3/uL [...] Serum or plasma aspartate aminotransferase measurement (enzymatic activity/volume) 23 U/L 5-34 Serum or plasma alanine aminotransferase measurement (enzymatic activity/volume) 14 U/L 0-55 Serum or plasma protein measurement (mass/volume) 7.1 g/dL 6.4-8.2 Serum or plasma albumin measurement (mass/volume) 3.7 g/dL 3.2-4.5 Serum or plasma troponin i.cardiac measurement (mass/volume) - 01/07/17 16:26 Serum or plasma troponin i.cardiac measurement (mass/volume) < ng/mL <0.30 Blood CBC with ordered manual differential [...] Automated erythrocyte mean corpuscular hemoglobin concentration measurement (mass/volume) 32 g/dL 32-36 Automated erythrocyte distribution width ratio 12.4 % 10.0- 14.5 Automated blood platelet count (count/volume) 152 10*3/uL [...] Blood monocytes automated count (number/volume) 0.3 10*3 0.0- 1.0 Automated eosinophil count 0.4 10*3/uL 0.0-0.3 Automated [...] 14:45 Blood reticulocytes count (number/volume) 48 10*9/L 24-90 Blood reticulocytes/100 erythrocytes 1.22 % 0.50-2.40 Fibrin D-dimer FEU measurement in platelet poor plasma (mass/volume) - 07/15/17 06:59 Fibrin D-dimer FEU measurement in platelet [...] Automated erythrocyte mean corpuscular hemoglobin concentration measurement (mass/volume) 33 g/dL 32-36 Automated erythrocyte distribution width ratio 13.4 % 10.0- 14.5 Automated blood platelet count (count/volume) 172 10*3/uL [...] Blood monocytes automated count (number/volume) 0.3 10*3 0.0- 1.0 Automated eosinophil count 0.1 10*3/uL 0.0-0.3 Automated [...] Serum or plasma aspartate aminotransferase measurement (enzymatic activity/volume) 1175 U/L 5-34 Serum or plasma alanine aminotransferase measurement (enzymatic activity/volume) 644 U/L 0-55 Serum or plasma protein measurement (mass/volume) 8.9 g/dL 6.4-8.2 Serum or plasma albumin measurement (mass/volume) 4.2 g/dL 3.2-4.5 Magnesium - 07/15/17 07:03 Magnesium 2.1 mg/dL 1.8-2.4 Serum or plasma troponin i.cardiac measurement (mass/volume) - 07/15/17 07:03 Serum or plasma troponin i.cardiac measurement (mass/volume) < ng/mL <0.30 Myoglobin, serum - 07/15/17 07:03 Myoglobin, serum 44.0 ng/mL 10.0-92.0 Serum or plasma amylase measurement (enzymatic activity/volume) - 07/15/17 07:03 Serum or plasma amylase measurement (enzymatic activity/volume) 43 U/L 25-125 Lipase - 07/15/17 07:03 Lipase 21 U/L 8-78 Methicillin resistant Staphylococcus aureus (MRSA) screening culture - 07/15/17 19:40 Methicillin resistant Staphylococcus aureus (MRSA) screening [...] Automated erythrocyte mean corpuscular hemoglobin concentration measurement (mass/volume) 33 g/dL 32-36 Automated erythrocyte distribution width ratio 13.7 % 10.0- 14.5 Automated blood platelet count (count/volume) 155 10*3/uL [...] Serum or plasma aspartate aminotransferase measurement (enzymatic activity/volume) 531 U/L 5-34 Serum or plasma alanine aminotransferase measurement (enzymatic activity/volume) 605 U/L 0-55 Serum or plasma protein measurement (mass/volume) 6.8 g/dL 6.4-8.2 Serum or plasma albumin measurement (mass/volume) 3.5 g/dL 3.2-4.5 Lipid 1996 panel - 07/16/17 06:55 Serum or plasma triglyceride measurement (mass/volume) 48 mg/dL <150 Serum or plasma cholesterol measurement (mass/volume) 140 mg/dL < 200 Serum or plasma cholesterol in HDL measurement (mass/volume) 61 mg/dL 40-60 Cholesterol in LDL [mass/volume] in serum or plasma by direct assay 65 mg/dL 1-129 Serum or plasma cholesterol in VLDL measurement (mass/volume) 10 mg/dL 5-40 Automated blood complete blood count (hemogram) [...] Automated erythrocyte mean corpuscular hemoglobin concentration measurement (mass/volume) 32 g/dL 32-36 Automated erythrocyte distribution width ratio 13.8 % 10.0- 14.5 Automated blood platelet count (count/volume) 142 10*3/uL [...] Serum or plasma aspartate aminotransferase measurement (enzymatic activity/volume) 179 U/L 5-34 Serum or plasma alanine aminotransferase measurement (enzymatic activity/volume) 353 U/L 0-55 Serum or plasma protein measurement (mass/volume) 6.1 g/dL 6.4-8.2 Serum or plasma albumin measurement (mass/volume) 2.9 g/dL 3.2-4.5 Methicillin resistant Staphylococcus aureus (MRSA) screening culture - 09/04/17 12:10 Methicillin resistant Staphylococcus aureus (MRSA) screening [...] Automated erythrocyte mean corpuscular hemoglobin concentration measurement (mass/volume) 32 g/dL 32-36 Automated erythrocyte distribution width ratio 14.4 % 10.0- 14.5 Automated blood platelet count (count/volume) 181 10*3/uL [...] Blood monocytes automated count (number/volume) 0.4 10*3 0.0- 1.0 Automated eosinophil count 0.4 10*3/uL 0.0-0.3 Automated [...] Automated erythrocyte mean corpuscular hemoglobin concentration measurement (mass/volume) 33 g/dL 32-36 Automated erythrocyte distribution width ratio 13.6 % 10.0- 14.5 Automated blood platelet count (count/volume) 150 10*3/uL [...] Blood monocytes automated count (number/volume) 0.3 10*3 0.0- 1.0 Automated eosinophil count 0.4 10*3/uL 0.0-0.3 Automated [...] Serum or plasma aspartate aminotransferase measurement (enzymatic activity/volume) 19 U/L 5-34 Serum or plasma alanine aminotransferase measurement (enzymatic activity/volume) 13 U/L 0-55 Serum or plasma protein measurement (mass/volume) 7.0 g/dL 6.4-8.2 Serum or plasma albumin measurement (mass/volume) 3.4 g/dL 3.2-4.5 Sputum Gram stain - 11/30/17 13:02 Sputum Gram stain Moderate to numerous WBC's, mixed bacterial betty and yeast NRG Bacterial sputum culture - 11/30/17 13:02 Bacterial sputum culture NORMAL NRG Complete blood count (CBC) with automated white blood cell (WBC) differential - 12/02/17 00:31 Blood leukocytes automated count (number/volume) 4.7 10*3/uL 4.3-11.0 Blood erythrocytes automated count (number/volume) 3.89 10*6/uL 4.35-5.85 Venous blood hemoglobin measurement (mass/volume) 12.2 g/dL 11.5-16.0 Blood hematocrit (volume fraction) 36 % 35-52 Automated erythrocyte mean corpuscular volume 93 [foz_us] 80-99 Automated erythrocyte mean corpuscular hemoglobin (mass per erythrocyte) 31 pg 25-34 Automated erythrocyte mean corpuscular hemoglobin concentration measurement (mass/volume) 34 g/dL 32-36 Automated erythrocyte distribution width ratio 13.6 % 10.0- 14.5 Automated blood platelet count (count/volume) 140 10*3/uL 130-400 Automated blood platelet mean volume measurement 10.0 [foz_us] 7.4-10.4 Automated blood neutrophils/100 leukocytes 80 % 42-75 Automated blood lymphocytes/100 leukocytes 11 % 12-44 Blood monocytes/100 leukocytes 6 % 0-12 Automated blood eosinophils/100 leukocytes 2 % 0-10 Automated blood basophils/100 leukocytes 0 % 0-10 Blood neutrophils automated count (number/volume) 3.8 10*3 1.8-7.8 Blood lymphocytes automated count (number/volume) 0.5 10*3 1.0-4.0 Blood monocytes automated count (number/volume) 0.3 10*3 0.0- 1.0 Automated eosinophil count 0.1 10*3/uL 0.0-0.3 Automated blood basophil count (count/volume) 0.0 10*3/uL 0.0-0.1 Blood lactic acid measurement (moles/volume) - 12/02/17 00:31 Blood lactic acid measurement (moles/volume) 2.00 mmol/L 0.50- 2.00 Bacterial blood culture - 12/02/17 00:31 Bacterial blood culture [facility] Influenza virus A and B antigen detection - 12/02/17 00:36 FLU RESULT NEGATIVE FOR INFLUENZA A AND B ANTIGENS BY IA [facility] Whole blood basic metabolic panel - 12/02/17 01:05 Serum or plasma sodium measurement (moles/volume) 136 mmol/L 135-145 Serum or plasma potassium measurement (moles/volume) 4.3 mmol/L 3.6-5.0 Serum or plasma chloride measurement (moles/volume) 103 mmol/L 98-107 Carbon dioxide 21 mmol/L 21-32 Serum or plasma anion gap determination (moles/volume) 12 mmol/L 5-14 Serum or plasma urea nitrogen measurement (mass/volume) 14 mg/dL 7-18 Serum or plasma creatinine measurement (mass/volume) 0.74 mg/dL 0.60-1.30 Serum or plasma urea nitrogen/creatinine mass ratio 19 [facility] Serum or plasma creatinine measurement with calculation of estimated glomerular filtration rate > [facility] Serum or plasma glucose measurement (mass/volume) 100 mg/dL 70-105 Serum or plasma calcium measurement (mass/volume) 8.8 mg/dL 8.5-10.1 Bacterial blood culture - 12/02/17 01:05 Bacterial blood culture [facility] Complete blood count (CBC) with automated white blood cell (WBC) differential - 03/17/19 14:25 Blood leukocytes automated count (number/volume) 4.8 10*3/uL 4.3-11.0 Blood erythrocytes automated count (number/volume) 4.22 10*6/uL 4.35-5.85 Venous blood hemoglobin measurement (mass/volume) 12.7 g/dL 11.5-16.0 Blood hematocrit (volume fraction) 39 % 35-52 Automated erythrocyte mean corpuscular volume 93 [foz_us] 80-99 Automated erythrocyte mean corpuscular hemoglobin (mass per erythrocyte) 30 pg 25-34 Automated erythrocyte mean corpuscular hemoglobin concentration measurement (mass/volume) 33 g/dL 32-36 Automated erythrocyte distribution width ratio 13.3 % 10.0- 14.5 Automated blood platelet count (count/volume) 163 10*3/uL 130-400 Automated blood platelet mean volume measurement 9.7 [foz_us] 7.4-10.4 Automated blood neutrophils/100 leukocytes 59 % 42-75 Automated blood lymphocytes/100 leukocytes 25 % 12-44 Blood monocytes/100 leukocytes 7 % 0-12 Automated blood eosinophils/100 leukocytes 8 % 0-10 Automated blood basophils/100 leukocytes 0 % 0-10 Blood neutrophils automated count (number/volume) 2.9 10*3 1.8-7.8 Blood lymphocytes automated count (number/volume) 1.2 10*3 1.0-4.0 Blood monocytes automated count (number/volume) 0.3 10*3 0.0- 1.0 Automated eosinophil count 0.4 10*3/uL 0.0-0.3 Automated blood basophil count (count/volume) 0.0 10*3/uL 0.0-0.1 Comprehensive metabolic panel - 03/17/19 14:25 Serum or plasma sodium measurement (moles/volume) 135 mmol/L 135-145 Serum or plasma potassium measurement (moles/volume) 4.4 mmol/L 3.6-5.0 Serum or plasma chloride measurement (moles/volume) 102 mmol/L 98-107 Carbon dioxide 23 mmol/L 21-32 [...] NRG Serum or plasma glucose measurement (mass/volume) 88 mg/dL 70-105 Serum or plasma calcium measurement (mass/volume) 9.2 mg/dL 8.5-10.1 Serum or plasma total bilirubin measurement (mass/volume) 0.4 mg/dL 0.1-1.0 Serum or plasma alkaline phosphatase measurement (enzymatic activity/volume) 63 U/L 40-136 Serum or plasma aspartate aminotransferase measurement (enzymatic activity/volume) 20 U/L 5-34 Serum or plasma alanine aminotransferase measurement (enzymatic activity/volume) 14 U/L 0-55 Serum or plasma protein measurement (mass/volume) 7.3 g/dL 6.4-8.2 Serum or plasma albumin measurement (mass/volume) 3.7 g/dL 3.2-4.5 CALCIUM CORRECTED 9.4 mg/dL 8.5-10.1 Serum or plasma troponin i.cardiac measurement (mass/volume) - 03/17/19 14:25 Serum or plasma troponin i.cardiac measurement (mass/volume) < ng/mL <0.028 Encounters ACCT No. Visit Date/Time Discharge Status Pt. Type Provider Facility Loc./Unit Complaint [id number] 03/17/2019 14:10:00 03/17/2019 23:59:59 CLS Outpatient NONA BLACKMAN APRN [facility] CARD DYSPNEA,INTERMITTENT CHEST PAIN [id number] 12/02/2017 00:08:00 12/02/2017 02:45:00 DIS Emergency NEGRA RAMIREZ DO [facility] ER MICHELLE,CONGESTION [id number] 11/30/2017 10:53:00 11/30/2017 10:54:00 DIS Emergency KENROY OSEI [facility] ER COUGH/CHEST CONGESTION [id number] 09/04/2017 11:49:00 09/04/2017 23:59:59 CLS Outpatient YANCY ROYAL MD [facility] SDC T10 COMPRESSION FRACTURE [id number] 09/03/2017 14:37:00 09/03/2017 23:59:59 CLS Outpatient YANCY ROYAL MD [facility] PREOP T10 COMPRESSION FRACTURE [id number] 09/03/2017 10:32:00 09/03/2017 23:59:59 CLS Outpatient NONA BLACKMAN APRN [facility] RAD THORACIC BACK PAIN, COMPRESISON FRACTURE [id number] 09/02/2017 12:48:00 09/02/2017 23:59:59 CLS Outpatient ALEX MICHEL [facility] RAD FALL LOW BACK PAIN PELVIC PAIN [id number] 09/02/2017 09:42:00 09/02/2017 13:00:00 DIS Outpatient MOSES LARIOS DO [facility] ENDO ABNORMAL MRI,CHRONIC DIARRHEA [id number] 08/27/2017 05:41:00 08/27/2017 14:32:00 DIS Outpatient MOSES LARIOS DO [facility] PREOP COLONOSCOPY [id number] 08/11/2017 10:59:00 08/11/2017 23:59:59 CLS Outpatient LARIOS MOSES GUILLEN [facility] RAD K91.89 NARROWING OF BILE DUCT [id number] 07/15/2017 09:55:00 07/17/2017 15:05:00 DIS Inpatient LARIOS MOSES GUILLEN [facility] 4TH CHOLYCYSTITIS [id number] 06/04/2017 17:34:00 06/04/2017 20:31:00 DIS Emergency CATIA JONES, MADDY Espinoza [facility] ER PAIN IN LEFT KNEE AFTER FALL ON 05/24 [id number] 05/24/2017 15:48:00 05/24/2017 17:47:00 DIS Emergency YAMILEX JONES, ES Gibson [facility] ER FALL [id number] 02/26/2017 14:31:00 02/26/2017 23:59:59 CLS Outpatient YAZAN KERR MD [facility] LAB CHRONIC DECREASED WBC [id number] 01/07/2017 15:47:00 01/07/2017 18:45:00 DIS Outpatient NONA BLACKMAN APRN [facility] DEHYDRATION,PALPITATIONS [id number] 09/16/2016 13:16:00 09/16/2016 23:59:59 CLS Outpatient MISSY JONES, PATRICIA Sandy [facility] RAD OVARIAN CYST, BENIGN NEOPLASM OF LT OVARY [id number] 05/20/2016 14:53:00 05/20/2016 23:59:59 CLS Outpatient NONA BLACKMAN APRN [facility] RAD RIGHT HIP PAIN, LEFT PUBIS FRACTURE [id number] 05/20/2016 14:46:00 05/20/2016 23:59:59 CLS Outpatient YAZAN KERR MD [facility] OSTEOPOROSIS [id number] 03/29/2016 10:24:00 03/29/2016 12:40:00 DIS Emergency MADDY BARDALES MD [facility] ER RT HIP PAIN [id number] 03/25/2016 09:47:00 03/25/2016 23:59:59 CLS Outpatient MISSY JONES, PATRICIA Sandy [facility] RAD OVARIAN CYST [id number] 02/29/2016 08:16:00 02/29/2016 23:59:59 CLS Outpatient NONA BLACKMAN APRN [facility] RAD LEFT FLANK PAIN [id number] 02/19/2016 12:06:00 02/19/2016 23:59:59 CLS Outpatient YAZAN KERR MD [facility] RAD LEFT FLANK PAIN, NEREYDA TENDERNESS [id number] 02/07/2015 09:48:00 02/07/2015 23:59:59 CLS Outpatient ALEX MICHEL [facility] RAD SCREENING [id number] 01/30/2015 00:10:00 01/30/2015 23:59:59 CLS Preadmit ANTONY DOHERTY MD [facility] LAB ACUTE BRONCHITIS [id number] 10/31/2014 15:45:00 01/29/2015 00:01:00 DIS Outpatient ANTONY DOHERTY MD [facility] LAB ACUTE BRONCHITIS [id number] 10/26/2014 16:34:00 10/26/2014 23:59:59 CLS Outpatient ANTONY DOHERTY MD [facility] RAD COUGH [id number] 10/17/2013 04:25:00 10/19/2013 09:20:00 DIS Outpatient PADMINI DE LA PAZ MD [facility] CATH CP [id number] 08/17/2013 07:03:00 08/17/2013 12:15:00 DIS Outpatient ES WARREN MD [facility] NAUSEA/VOMITING; SCREENING [id number] 08/12/2013 07:27:00 08/12/2013 23:59:59 CLS Outpatient ES WARREN MD [facility] PREOP NAUSEA/VOMITING; SCREENING [id number] 08/10/2013 11:38:00 08/10/2013 23:59:59 CLS Outpatient ANTONY DOHERTY MD [facility] RAD ABD PAIN,WEIGHT LOSS [id number] 07/10/2013 11:40:00 07/10/2013 15:04:00 DIS Emergency GHANSHYAM SANDOVAL MAGAZINE EDITOR [facility] ER FALL [id number] 06/20/2013 08:23:00 06/23/2013 16:25:00 DIS Inpatient ANTONY DOHERTY MD [facility] 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 [id number] 06/16/2013 14:40:00 06/16/2013 23:59:59 CLS Outpatient BRIAN MATHIS MD [facility] RAD STENOSIS [id number] 05/01/2013 17:36:00 05/01/2013 23:59:59 CLS Outpatient MAJOR, MAGGIE COAL SAMPLER [facility] QUICK CHEST COLD [id number] 03/29/2013 13:31:00 03/29/2013 23:59:59 CLS Outpatient VAN LONNIE CLEMENT COAL SAMPLER [facility] QUICK UTI [id number] 04/06/2019 08:00:00 PEN Preadmit JENNIFER JONES FACC, STALIN PINK CCDS [facility] CATH ANGINA [id number] 03/05/2018 05:36:00 Document Registration [id number] 03/05/2018 05:36:00 Document Registration [id number] 03/05/2018 05:35:00 Document Registration [id number] 03/05/2018 05:35:00 Document Registration [id number] 04/30/2012 08:48:00 Document Registration [id number] 04/21/2012 10:47:00 Document Registration [id number] 04/11/2012 08:34:00 Document Registration [id number] 02/03/2011 21:17:00 Document Registration [id number] 10/16/2010 13:25:00 Document Registration [id number] 10/07/2010 07:26:00 Document Registration [id number] 07/26/2010 09:48:00 Document Registration [id number] 03/21/2010 09:51:00 Document Registration [id number] 02/13/2007 10:30:00 Document Registration [id number] 06/23/2006 13:12:00 Document Registration [id number] 03/18/2006 08:05:00 Document Registration [id number] 02/07/2015 09:48:51 ACT Document Registration [id number] 08/10/2017 23:21:31 08/10/2017 23:59:59 [facility] Outpatient
--- NOTE | 2019-04-06 11:06 | Cardiac Procedure Note-CS/ASA ---
Pre-Procedure Note Pre-Op Procedure Note H&P Reviewed The H&P was reviewed, patient examined and no changes noted. Date H&P Reviewed: Apr 06, 2019 Time H&P Reviewed: 10:30 Conscious Sedation Pre-Proced Time 10:30 ASA Score 3 For ASA 3 and 4: Consider anesthesia and medical clearance. Also, for patients with a history of failed moderate sedation consider anesthesia. Airway Lungs Heart ASA score ASA 1: a normal healthy patient ASA 2: a patient with a mild systemic disease (mid diabetes, controlled hypertension, obesity ASA 3: a patient with a severe systemic disease that limits activity (angina, COPD, prior Myocardial infarction) ASA 4: a patient with an incapacitating disease that is a constant threat to life (CHF, renal failure) ASA 5: a moribund patient not expected to survive 24 hrs. (ruptured aneurysm) ASA 6: a declared brain- patient whose organs are being harvested. For emergent operations, add the letter E after the classification Mallampati Classification Grade 2 Sedation Plan Analgesia, Amnesia, Plan communicated to team members, Discussed options with patient/fam, Discussed risks with patient/fam The patient is an appropriate candidate to undergo the planned procedure, sedation, and anesthesia. The patient immediately re-assessed prior to indication. STALIN RODRIGUEZ MD FACP FAC CCDS Apr 06, 2019 11:05
--- NOTE | 2019-04-06 11:10 | Discharge Inst-Cardiology ---
Discharge Inst-Cardiac Discharge Medications Continued Medications: Albuterol Sulfate (Ventolin Hfa) 1 Puff Puff 2 PUFF IH Q4H for 7 Days, #1 EACH 0 Refills 1 PUFF = 90 MCG Alprazolam (Alprazolam) 1 Mg Tablet 1 MG PO TID Aspirin (Aspirin EC) 81 Mg Tablet.dr 81 MG PO DAILY, TAB Cholecalciferol (Vitamin D3) (Vitamin D3) 2,000 Unit Capsule 2000 UNIT PO DAILY, CAP Citalopram Hydrobromide (Celexa) 20 Mg Tablet 20 MG PO DAILY, TAB Fluticasone Propionate (Flonase Allergy Relief) 9.9 Ml [place].susp 2 SPRAYS NS BID, #1 SPRAY Fluticasone/Vilanterol (Breo Ellipta 100-25 Mcg INH) 1 Each Blst.w.dev 1 PUFF IH DAILY Losartan Potassium (Losartan Potassium) 100 Mg Tablet 100 MG PO HS Metoprolol Tartrate (Metoprolol Tartrate) 50 Mg Tablet 25 MG PO BID TAKES 1/2 OF A (50 MG) TABLET Omeprazole (Omeprazole) 20 Mg Capsule.dr 20 MG PO BID Discontinued Medications: Ibuprofen (Ibuprofen) 800 Mg Tablet 800 MG PO BID PRN for PAIN-MILD, STALIN BAPTISTE MD FACP FAC CCDS Apr 06, 2019 11:10
--- NOTE | 2019-04-06 11:10 | Discharge Inst-Post CATH ---
Discharge Inst-CATH/EP Post Cardiac Cath/EP D/C Inst Follow Up/Plan F/u at Dr Chavez's in 2-3 weeks ACTIVITY * Go Home directly and rest. * Limit activity of the leg (or wrist if it was used) for 7 days including aerobics, swimming, jogging, bicycling, etc. * Restrict stair-climbing for 7 days if possible, if not, climb up with your non-cath leg, then bring together on the same step. * Avoid lifting, pushing, pulling or excessive movement of the affected extremity for 7 days. * Customary sexual activity may be resumed after 2 days-use caution not to use a position that strains or causes pain to the affected extremity. * No driving for 24 hours. * NO SMOKING. * Avoid straining for bowel movements for 7 days. * Gentle walking on level ground is allowed. * Returning to work will depend on the type of procedure and the results. Your doctor will discuss this with you. CALL YOUR DOCTOR FOR ANY OF THE FOLLOWING: *If bleeding from the puncture site occurs- Apply gentle pressure to site with clean cloth and call your doctor or EMS. * If a knot or lump forms under the skin, increases in size, or causes pain. * If bruising appears to be worsening or moving further down your leg instead of disappearing. * Temperature above 101 F. CARE OF YOUR GROIN INCISION; * Bruising or purple discoloration of the skin near the puncture site is common. * You may shower only, no bathtub bathing for 5 days. Be careful to avoid slipping as your leg may feel stiff. * If a closure device was used on your femoral artery, please see the attached guide regarding care of the device and your leg. * Leave dressing on FOR 24 hours. CARE OF YOUR WRIST INCISION; * Bruising or purple discoloration of the skin near the puncture site is common. * You may shower. * DO NOT submerge wrist. * Leave dressing on FOR 24 hours. STALIN CHAVEZ MD FACP FAC CCDS Apr 06, 2019 11:10
[2019-04-06] MEDS ORDERED: PATIENT MAY USE OWN MEDS, ALL PO SCH (11:15)
--- NOTE | 2019-04-06 12:37 | CARDIAC CATHETERIZATION ---
DATE OF SERVICE: 04/06/2019 CARDIAC CATHETERIZATION REPORT HISTORY OF PRESENT ILLNESS: The patient is a 78-year-old lady with new symptoms that are suggestive of new onset angina. Cardiac catheterization was carried out today after having obtained informed consent. PROCEDURE IN DETAIL: She was brought to the cardiac catheterization laboratory in a fasting state. Right groin was prepared and draped in the usual sterile fashion. Lidocaine 1% was used for local anesthesia. Modified Seldinger technique was used to advance a 5-Mexican sheath in the right femoral artery. A 5-Mexican JL4 catheter was not adequate for coronary engagement because of large size of the ascending aorta. We used a 5-Mexican JL5 catheter to engage the left coronary system. We used a 5-Mexican JR4 catheter for right coronary angiography and a 5-Mexican pigtail catheter for left heart catheterization and left ventricular angiography. The pigtail catheter was pulled back to the aortic arch and aortic arch angiography was performed. Pigtail was removed. Angiography of the right femoral artery was carried out through the sheath. Mynx was used to achieve hemostasis. HEMODYNAMICS: Left ventricular end-diastolic pressure following coronary angiography was 15 mmHg. There is no significant pressure gradient on pullback across the aortic valve. The ascending aortic pressure was 108/67 with a mean of 70 mmHg. CORONARY ANGIOGRAPHY: Left main coronary artery is free of significant disease. The left anterior descending artery has mild plaques. Left circumflex artery has mild plaques. Left circumflex artery is codominant with the right coronary artery. Right coronary artery is of a small caliber and codominant with the left circumflex. LEFT VENTRICULAR CORONARY ANGIOGRAPHY: Left ventricular coronary angiography was carried out in the right anterior oblique projection. Global left ventricular systolic function is normal to hyperdynamic. Left ventricular ejection fraction is approximately 70 to 75%. The ascending aorta is enlarged. We measured it at approximately 4 cm in diameter. AORTIC ARCH ANGIOGRAPHY: Aortic arch angiography indicates ascending aortic enlargement, but the descending thoracic aorta appears to be of normal size. The neck arteries are identified and do not exhibit significant disease to the extent visualized. CONCLUSIONS: 1. Mild coronary plaque without any significant obstructive disease. 2. Normal to hyperdynamic left ventricular systolic function with ejection fraction of 70 to 75%. 3. Mild elevation of left ventricular end-diastolic pressure. 4. Ascending aortic aneurysmal dilatation, measured at approximately 4 cm in diameter. DISCUSSION AND RECOMMENDATIONS: Based on results of the study, it appears appropriate to continue a conservative approach. Risk factor modification has been reviewed. Outpatient followup is advised. Job ID: [id number] DocumentID: [id number] Dictated Date: 04/06/2019 10:58:43 Medical Supervisor Date: 04/06/2019 12:36:51 Dictated By: STALIN RODRIGUEZ MD, MA, FACP, FACC,
== END 2019-04-06 14:40 | disposition home or self-care (01) ==
LOC: CATH 08:10 → SDC 11:20 → CATH 14:40
PROVIDERS: ATTEND Internal Medicine Cardiovascular Disease
DX: R07.89 Other chest pain (principal); I25.10 Atherosclerotic heart disease of native coronary artery without angina pectoris; I71.2 Thoracic aortic aneurysm, without rupture; I10 Essential (primary) hypertension; J44.9 Chronic obstructive pulmonary disease, unspecified; K21.9 Gastro-esophageal reflux disease without esophagitis; M81.0 Age-related osteoporosis without current pathological fracture; Z87.891 Personal history of nicotine dependence
CPT/HCPCS: 36221; 36415; 80053; 80061; 85027; 85610; 85730; 87081; 93458

== ENCOUNTER 2019-06-15 22:20 | Emergency (ER) | payer MEDICARE, OTHER ==
[~2019-06-15] VITALS: Ht 152.4 cm; Wt 55.5 kg
[~2019-06-15 22:20] MED LIST changes: +CITA20TA12 PO; +OMEP20CA13 PO
[2019-06-15] MEDS ORDERED: fentaNYL INJECTION 100 MCG/2 ML AMP IVP ONE (22:30)
[2019-06-15 22:48] LABS: BASOPHILS % (AUTO) 0 % (0-10); EOSINOPHILS # (AUTO) 0.4 10^3/uL (0.0-0.3); EOSINOPHILS % (AUTO) 7 % (0-10); HEMATOCRIT 35 % (35-52); HEMOGLOBIN 11.5 G/DL (11.5-16.0); LYMPHOCYTES # (AUTO) 1.6 X 10^3 (1.0-4.0); LYMPHOCYTES % (AUTO) 28 % (12-44); MEAN CORPUSCULAR HEMOGLOBIN 31 PG (25-34); MEAN CORPUSCULAR HGB CONC 33 G/DL (32-36); MEAN CORPUSCULAR VOLUME 93 FL (80-99); MEAN PLATELET VOLUME 9.6 FL (7.4-10.4); MONOCYTES # (AUTO) 0.5 X 10^3 (0.0-1.0); MONOCYTES % (AUTO) 8 % (0-12); NEUTROPHILS # (AUTO) 3.2 X 10^3 (1.8-7.8); NEUTROPHILS % (AUTO) 57 % (42-75); PLATELET COUNT 199 10^3/uL (130-400); RED CELL DISTRIBUTION WIDTH 14.1 % (10.0-14.5); WHITE BLOOD COUNT 5.7 10^3/uL (4.3-11.0)
--- NOTE | 2019-06-15 22:50 | ED Chest Pain ---
General Chief Complaint: Chest Pain Stated Complaint: CHEST PAIN / SOA Nursing Triage Note: Pt to room #5 via [facility] ems cart from home with c/o CP & SOA. Pt reports this afternoon she was leaning over a couch when she devloped rt sided chest discomfort. 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 Non tender upon light palpation to rt chest wall. Nursing Sepsis Screen: No Definite Risk Source: patient, EMS Exam Limitations: no limitations History of Present Illness Date Seen by Provider: Jun 15, 2019 Time Seen by Provider: 22:20 Initial Comments This 78-year-old woman presents to the emergency room via EMS with right-sided pleuritic or musculoskeletal chest pain. The pain is specifically worse when she moves her upper body or takes a deep breath. She first noticed the pain around 15:00 when she was bending over a couch to unplug the cord. Pain has been escalating since then. She reports the pain around 7 out of 10 when she breathes or moves. She denies any history of prior pneumothorax, rib fractures, or pulmonary embolism. Vital signs are within normal limits. Allergies and Home Medications Allergies Coded Allergies: Iodinated Contrast- Oral and IV Dye (Verified Allergy, Intermediate, Hives, 06/16/19) azithromycin (Verified Allergy, Unknown, 09/02/17) Uncoded Allergies: ERYTHROMYCIN (Allergy, Unknown, 01/07/17) Home Medications Albuterol Sulfate 1 Puff Puff, 2 PUFF IH Q4H 1 PUFF = 90 MCG Prescribed by: KENROY OSEI on 11/30/17 1315 Alprazolam 1 Mg Tablet, 1 MG PO TID, (Reported) Aspirin 81 Mg Tablet.dr, 81 MG PO DAILY, (Reported) Cholecalciferol (Vitamin D3) 2,000 Unit Capsule, 2,000 UNIT PO DAILY, (Reported) Citalopram Hydrobromide 20 Mg Tablet, 20 MG PO DAILY, (Reported) Fluticasone Propionate 9.9 Ml [place].susp, 2 SPRAYS NS BID Prescribed by: NEGRA RAMIREZ on 12/02/17 0230 Fluticasone/Vilanterol 1 Each Blst.w.dev, 1 PUFF IH DAILY, (Reported) Losartan Potassium 100 Mg Tablet, 100 MG PO HS, (Reported) Metoprolol Tartrate 50 Mg Tablet, 25 MG PO BID, (Reported) TAKES 1/2 OF A (50 MG) TABLET Omeprazole 20 Mg Capsule.dr, 20 MG PO BID, (Reported) Patient Home Medication List Home Medication List Reviewed: Yes Review of Systems Review of Systems Constitutional: no symptoms reported EENTM: No Symptoms Reported Respiratory: See HPI Cardiovascular: No Symptoms Reported Gastrointestinal: No Symptoms Reported Genitourinary: No Symptoms Reported Musculoskeletal: see HPI Skin: no symptoms reported Psychiatric/Neurological: No Symptoms Reported Endocrine: No Symptoms Reported Past Hvqqcqk-Llckfi-Ytzneq Hx Past Med/Social Hx: Reviewed Nursing Past Med/Soc Hx Patient Social History Type Used: Cigarettes Former Smoker, Quit: Jul 15, 1994 2nd Hand Smoke Exposure: No Recent Foreign Travel: No Contact w/Someone Who Travel: No Recent Infectious Disease Expo: No Recent Hopitalizations: No Immunizations Up To Date Tetanus Booster (TDap): More than 5yrs Date of Pneumonia Vaccine: Sep 30, 2016 Date of Influenza Vaccine: Jul 17, 2017 Seasonal Allergies Seasonal Allergies: No Past Medical History Surgeries: Yes (HEMORRHOIDECTOMY; HIATAL HERNIA REPAIR X 2 ; HYST/OVARIES INTACT) Abdominal, Bladder Surgery, Gallbladder, Hysterectomy, Rectal, Tonsillectomy Respiratory: Yes (O2 AT 2L/NC CONTINUOUS) Asthma, COPD, Emphysema Currently Using CPAP: No Currently Using BIPAP: No Cardiac: Yes Aneurysm (ascending aortic aneurysm), Hypertension Neurological: No Reproductive Disorders: No Female 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 Sexually Transmitted Disease: No HIV/AIDS: No Genitourinary: No Gastrointestinal: Yes (HIATAL HERNIA REPAIR X 2) Gastroesophageal Reflux, Chronic Constipation, Hemorrhoids, Hiatal Hernia Musculoskeletal: Yes (SCIATICA) Arthritis, Chronic Back Pain Endocrine: No Loss of Vision: Denies Hearing Impairment: Denies Cancer: No Psychosocial: Yes Anxiety, Depression Integumentary: No Blood Disorders: No Family Medical History Reviewed Nursing Family Hx Abdominal aortic aneurysm 03 FATHER Alcoholism 03 FATHER Cancer 03 FATHER Cataract 03 MOTHER Chest pain 03 FATHER Congestive heart failure 03 FATHER Family history: Cardiovascular disease 03 FATHER 03 MOTHER Family history: Coronary thrombosis 03 MOTHER Family history: Diabetes mellitus 03 MOTHER Family history: Glaucoma 03 MOTHER Family history: Hypertension 03 MOTHER Family history: Osteoporosis 03 MOTHER Headache 03 FATHER 03 MOTHER 09 BROTHER 09 BROTHER 09 SISTER Heart disease 03 FATHER History of - respiratory disease 03 FATHER Kidney disease 03 MOTHER Myocardial infarction 03 FATHER Stroke Visual impairment 03 FATHER 03 MOTHER No Family History of: Jase's disease Aphasia Cancer of colon Congenital heart disease Cystic fibrosis Dementia Dysphagia Family history: Allergy Family history: Alzheimer's disease Family history: Arthritis Family history: Asthma Family history: Breast disease Family history: Gastrointestinal disease Family history: Thyroid disorder Hearing loss Hereditary disease History of - anemia History of - disorder History of drug abuse Human immunodeficiency virus (HIV) seropositivity Hypercholesterolemia Infertile Malignant neoplasm of lung Parkinson's disease Prostate cancer Psychotic disorder Seizure disorder Tuberculosis Heart Disease, Cancer, Diabetes, Hypertension, Other Conditions/Hx Physical Exam Vital Signs Vital Signs - First Documented 06/15/19 22:20 Temp 37.4 Pulse 82 Resp 18 B/P (MAP) 126/99 (108) Pulse Ox 98 O2 Delivery Room Air Capillary Refill : Less Than 3 Seconds Height, Weight, BMI Height: 5'0.00" Weight: 130lbs. 0.0oz. 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 as Tested Skin: Normal Color, Warm/Dry Progress/Results/Core Measures Results/Orders Lab Results Laboratory Tests Test 06/15/19 22:35 Range/Units White Blood Count 5.7 4.3-11.0 10^3/uL Red Blood Count 3.77 L 4.35-5.85 10^6/uL Hemoglobin 11.5 11.5-16.0 G/DL Hematocrit 35 35-52 % Mean Corpuscular Volume 93 80-99 FL Mean Corpuscular Hemoglobin 31 25-34 PG Mean Corpuscular Hemoglobin Concent 33 32-36 G/DL Red Cell Distribution Width 14.1 10.0-14.5 % Platelet Count 199 130-400 10^3/uL Mean Platelet Volume 9.6 7.4-10.4 FL Neutrophils (%) (Auto) 57 42-75 % Lymphocytes (%) (Auto) 28 12-44 % Monocytes (%) (Auto) 8 0-12 % Eosinophils (%) (Auto) 7 0-10 % Basophils (%) (Auto) 0 0-10 % Neutrophils # (Auto) 3.2 1.8-7.8 X 10^3 Lymphocytes # (Auto) 1.6 1.0-4.0 X 10^3 Monocytes # (Auto) 0.5 0.0-1.0 X 10^3 Eosinophils # (Auto) 0.4 H 0.0-0.3 10^3/uL Basophils # (Auto) 0.0 0.0-0.1 10^3/uL Sodium Level 137 135-145 MMOL/L Potassium Level 4.0 3.6-5.0 MMOL/L Chloride Level 103 98-107 MMOL/L Carbon Dioxide Level 24 21-32 MMOL/L Anion Gap 10 5-14 MMOL/L Blood Urea Nitrogen 15 7-18 MG/DL Creatinine 0.73 0.60-1.30 MG/DL Estimat Glomerular Filtration Rate > 60 BUN/Creatinine Ratio 21 Glucose Level 85 70-105 MG/DL Calcium Level 9.1 8.5-10.1 MG/DL Corrected Calcium 9.3 8.5-10.1 MG/DL Total Bilirubin 0.3 0.1-1.0 MG/DL Aspartate Amino Transf (AST/SGOT) 19 5-34 U/L Alanine Aminotransferase (ALT/SGPT) < 6 0-55 U/L Alkaline Phosphatase 59 40-136 U/L Total Protein 7.2 6.4-8.2 GM/DL Albumin 3.7 3.2-4.5 GM/DL My Orders Orders - AMBIKA HAMMOND MD Ed Iv/Invasive Line Start (06/15/19 22:30) Ekg Tracing (06/15/19 22:30) Monitor-Rhythm Ecg Trace Only (06/15/19 22:30) Cbc With Automated Diff (06/15/19 22:30) Comprehensive Metabolic Panel (06/15/19 22:30) Fentanyl Injection (Sublimaze Injection (06/15/19 22:30) Ondansetron Injection (Zofran Injectio (06/15/19 23:00) Ct Angio Chest/Abd W (06/15/19 23:06) Ondansetron Injection (Zofran Injectio (06/15/19 23:15) Iohexol Injection (Omnipaque 350 Mg/Ml 1 (06/16/19 00:00) Received Contrast (Hold Metformin- Contr (06/16/19 00:00) Ns (Ivpb) (Sodium Chloride 0.9% Ivpb Bag (06/16/19 00:00) Diphenhydramine Injection (Benadryl Inje (06/16/19 00:18) Diphenhydramine Injection (Benadryl Inje (06/16/19 00:30) Ketorolac Injection (Toradol Injection) (06/16/19 00:45) Ns Iv 500 Ml (Sodium Chloride 0.9%) (06/16/19 00:32) Medications Given in ED Current Medications Medications Dose Ordered Sig/Makenna Route Start Time Stop Time Status Last Admin Dose Admin Diphenhydramine HCl 25 mg ONCE ONCE IVP 06/16/19 00:30 06/16/19 00:31 DC 06/16/19 00:25 25 MG Fentanyl Citrate 25 mcg ONCE ONCE IVP 06/15/19 22:30 06/15/19 22:38 DC 06/15/19 22:43 25 MCG Iohexol 100 ml ONCE ONCE IV 06/16/19 00:00 06/16/19 00:01 DC 06/15/19 23:51 100 ML Ketorolac Tromethamine 15 mg ONCE ONCE IVP 06/16/19 00:45 06/16/19 00:46 DC 06/16/19 00:40 15 MG Ondansetron HCl 4 mg ONCE ONCE IVP 06/15/19 23:00 06/15/19 23:01 DC 06/15/19 23:00 4 MG Ondansetron HCl 4 mg ONCE ONCE IVP 06/15/19 23:15 06/15/19 23:16 DC 06/15/19 23:18 4 MG Sodium Chloride 100 ml ONCE ONCE IV 06/16/19 00:00 06/16/19 00:01 DC 06/15/19 23:51 80 ML Sodium Chloride 500 ml @ 0 mls/hr Q0M ONCE IV 06/16/19 00:32 06/16/19 00:34 DC 06/16/19 00:40 0 MLS/HR Vital Signs/I&O 06/15/19 06/15/19 06/16/19 22:20 22:20 01:30 Temp 37.4 37.4 Pulse 82 64 Resp 18 17 B/P (MAP) 126/99 (108) 131/80 (108) Pulse Ox 98 97 O2 Delivery Room Air Room Air Room Air Blood Pressure Mean: 108 Progress Progress Note #1: Time: 23:09 Progress Note Patient was seen and examined. Fentanyl was given for pain. Fentanyl caused nausea and Zofran was given for nausea. Chart was reviewed. Was found the patient has an ascending aortic aneurysm based on prior CT angiogram. For this reason, we will skip the x-ray studies and proceed straight to CT angiogram of the chest and abdomen. Patient's labs were reviewed and creatinine will support use of contrast. Progress Note #2: Progress Note CT scan revealed no acute abnormalities to explain patient's pain. Patient seemed to have a mild reaction to the contrast dye. She developed some hives on her left hip and itching. She also felt like there was a "lump in my throat". She had no difficulty breathing. Benadryl 25 mg IV was administered. Pain was further treated with Toradol. 500 mL normal saline was infused for contrast nephropathy prophylaxis. Patient was dismissed home with her caregiver in stable condition. Toradol was given for additional pain control. Initial ECG Impression Date: Jun 15, 2019 Initial ECG Impression Time: 23:09 Initial ECG Rate: 88 Initial ECG Rhythm: Normal Sinus Initial ECG Intervals: Normal Initial ECG Impression: Normal Comment Normal sinus rhythm with no ST elevation or depression. Artifact present. No significant abnormal intervals or axis deviation. Diagnostic Imaging Diagonstic Imaging: CT Plain Films/CT/US/NM/MRI: abdomen, pelvis Comments CT angiogram chest, abdomen and pelvis viewed by me and [facility] report reviewed. Ascending aortic aneurysm was stable from prior. There was no evidence of pulmonary emboli. Hiatal hernia was noted. Incidental finding of compression fracture suspected at T9. Abdomen was unremarkable. Departure Impression Primary Impression: Pleuritic chest pain Additional Impressions: Ascending aortic aneurysm Allergic reaction to contrast dye Qualified Codes: T50.8X5A - Adverse effect of diagnostic agents, initial encounter Disposition: 01 HOME, SELF-CARE Condition: Improved Departure-Patient Inst. Decision time for Depature: 01:19 Referrals: YAZAN KERR MD (PCP/Family) Primary Care Physician Patient Instructions: Pleuritic Chest Pain (DC) Add. Discharge Instructions: For pain you may take Tylenol (acetaminophen) up to 650 mg every 6 hours as needed and ibuprofen up to 400 mg 3 times daily. Return to the emergency room if you have worsening symptoms. If you develop recurrence of itchy rash or hives, repeat Benadryl 50 mg every 4 hours as needed. If you develop a rash over the painful area on your chest, return to care as this may be shingles. All discharge instructions reviewed with patient and/or family. Voiced understanding. Copy Copies To 1: YAZAN KERR MD, JOSHUA T MD Jun 15, 2019 22:50
[2019-06-15] MEDS ORDERED: ONDANSETRON 4 MG/2 ML (SDV) Z0FRAN IVP ONE ×2 (23:00→23:15)
[2019-06-15 23:02] LABS: ALANINE AMINOTRANSFERASE < 6 U/L (0-55); ALBUMIN 3.7 GM/DL (3.2-4.5); ALKALINE PHOSPHATASE 59 U/L (40-136); BILIRUBIN,TOTAL 0.3 MG/DL (0.1-1.0); BUN/CREATININE RATIO 21; CALCIUM 9.1 MG/DL (8.5-10.1); CARBON DIOXIDE 24 MMOL/L (21-32); CHLORIDE 103 MMOL/L (98-107); CREATININE SERUM 0.73 MG/DL (0.60-1.30); GFR ESTIMATED > 60; GLUCOSE 85 MG/DL (70-105); SODIUM 137 MMOL/L (135-145); TOTAL PROTEIN 7.2 GM/DL (6.4-8.2)
[2019-06-16] MEDS ORDERED: HOLD METFORMIN - RECEIVED CONTRAST 20 ML VIAL IV SCH
[2019-06-16] MEDS ORDERED: IOHEXOL 350 MG/ML 100 ML (OMNIPAQUE 350) VIAL IV ONE
[2019-06-16] MEDS ORDERED: NS 100 ML (IVPB) BAG IV ONE
--- NOTE | 2019-06-16 00:17 | NUR ---
Called to pt room with c/o possible allergic reation. Pt states, "it feels like there is a ball in my throat." Pt reports symptoms of difficulty swallowing and hives to lt hip. Provider notified.
[2019-06-16] MEDS ORDERED: diphenhydrAMINE 50 MG/ML INJ (BENADRYL) ONE (00:18)
[2019-06-16] MEDS ORDERED: diphenhydrAMINE 50 MG/ML INJ (BENADRYL) IVP ONE (00:30)
[2019-06-16] MEDS ORDERED: NS IV 500 ML 500 ML IV ONE (00:32)
[2019-06-16] MEDS ORDERED: KETOROLAC 30 MG/ML VIAL IVP ONE (00:45)
[2019-06-16 01:30] VITALS: BP 131/80
--- NOTE | 2019-06-16 09:06 | Diagnostic Imaging Report ---
PROCEDURE: CT angiography of the abdomen and chest with and without contrast. TECHNIQUE: After intravenous administration of contrast, thin section axial CT angiography of the abdomen and chest were obtained. 3D MIP reformats were provided. Auto Exposure Controls were utilized during the CT exam to meet ALARA standards for radiation dose reduction. INDICATION: Right-sided chest pain. COMPARISON: CT angiography of the chest 07/15/2017. FINDINGS: CT angiography of the chest: Aneurysmal dilatation of the aortic root is again noted without significant change since previous exam. This again measures approximately 4.5 cm. Pulmonary arteries are well opacified without filling defects to indicate pulmonary emboli. Lungs are well-aerated. There are no infiltrates or masses. No mediastinal or hilar adenopathy of pathologic size. There is moderate sized fixed hiatal hernia. There is apical pleural scarring noted bilaterally. There has been kyphoplasty performed of T10 since previous exam. There is mild compression fracture of the inferior endplate of T9 noted. Remaining thoracic vertebral bodies show good preservation of height. IMPRESSION: 1. No evidence of pulmonary emboli. 2. Ascending thoracic aortic aneurysm stable since previous exam without evidence of aortic dissection. This measures 4.5 cm. 3. Kyphoplasty of T10. Mild inferior endplate compression fracture noted of T9. These findings are concordant with the preliminary report. CT angiography of the abdomen and pelvis: Good opacification of the aorta which shows diffuse atherosclerotic disease. No evidence of aneurysm. There is normal enhancement of the abdominal organs. There is a small cyst off the lower pole of the right kidney measuring 1.3 cm. Bowel gas pattern appears normal. Sagittal reconstructed images show thoracic spine in good alignment with diffuse degenerative disease. No evidence of compression fracture. No pars defects. IMPRESSION: 1. Atherosclerotic aorta without evidence of aneurysm or dissection. 2. Small cyst off lower pole of the right kidney benign in nature. 3. Diffuse degenerative disc and facet disease throughout the lumbosacral spine. Dictated by: Dictated on workstation # [id number]
== END 2019-06-16 01:30 | disposition home or self-care (01) ==
LOC: ER 22:20 → EDUNIT# 22:20 → ER 06-16 01:30
DX: R09.1 Pleurisy (principal); I71.2 Thoracic aortic aneurysm, without rupture; T50.8X5A Adverse effect of diagnostic agents, initial encounter; I10 Essential (primary) hypertension; J43.9 Emphysema, unspecified; K21.9 Gastro-esophageal reflux disease without esophagitis; F41.9 Anxiety disorder, unspecified; F32.9 Major depressive disorder, single episode, unspecified; Z90.89 Acquired absence of other organs; Z82.49 Family history of ischemic heart disease and other diseases of the circulatory system; Z90.710 Acquired absence of both cervix and uterus; Z91.041 Radiographic dye allergy status; Z88.1 Allergy status to other antibiotic agents; Z79.82 Long term (current) use of aspirin; Z79.52 Long term (current) use of systemic steroids; Z87.891 Personal history of nicotine dependence
CPT/HCPCS: 36415; 71275; 74175; 80053; 85025; 93005; 93041; 96374; 96375

== ENCOUNTER → 2020-04-07 | Outpatient (CLI) | payer MEDICARE, OTHER ==
[~2020-04-07] MED LIST changes: -OMEP20CA13 PO; +OMEP20CA18 PO; -TRAM50TA2 PO
--- NOTE | 2020-04-07 09:34 | Diagnostic Imaging Report ---
INDICATION: Abnormal aortic ultrasound, followup. The proximal abdominal aorta measures 1.67 m AP x 1.1 cm transverse. Midabdominal aorta measures 1.1 cm AP x 1.1 cm transverse. The distal abdominal aorta measures 1.1 cm AP x 1.3 cm transverse. The right iliac is 0.9 x 0.9 cm. Left iliac is 0.8 x 0.9 cm. IMPRESSION: No evidence of abdominal aortic aneurysm. Dictated by: Dictated on workstation # [id number]
== END ==
LOC: RAD 08:01
PROVIDERS: ATTEND Nurse Practitioner Family
DX: Z09 Encounter for follow-up examination after completed treatment for conditions other than malignant neoplasm (principal)
CPT/HCPCS: 76775

== ENCOUNTER 2020-08-01 19:59 | Emergency (ER) | payer MEDICARE, OTHER ==
[~2020-08-01] VITALS: Ht 152.4 cm; Wt 51.2 kg
[~2020-08-01 19:59] MED LIST changes: +AMLO-250 PO; -AMLO5TAB9 PO; +ASPI-1238 PO; -ASPI-983 PO
[2020-08-01 20:49] VITALS: BP 171/98
--- NOTE | 2020-08-01 20:56 | ED General ---
General Stated Complaint: ALLERGY SYMPTOMS/NASAL DRAINAGE Source of Information: Patient Exam Limitations: No Limitations History of Present Illness Date Seen by Provider: Aug 01, 2020 Time Seen by Provider: 20:55 Initial Comments to ER with reports of being exposed to a Covid-positive gentleman while playing cards and she was not wearing a mask on last . She has no symptoms but plans to go out of town this weekend and the like to be swabbed. Timing/Duration: 4-5 Days Severity: Moderate Allergies and Home Medications Allergies Coded Allergies: Iodinated Contrast- Oral and IV Dye (Verified Allergy, Intermediate, Hives, 06/16/19) azithromycin (Verified Allergy, Unknown, 09/02/17) Uncoded Allergies: ERYTHROMYCIN (Allergy, Unknown, 01/07/17) Home Medications Albuterol Sulfate 1 Puff Puff, 2 PUFF IH Q4H 1 PUFF = 90 MCG Prescribed by: KENROY OSEI on 11/30/17 1315 Alprazolam 1 Mg Tablet, 1 MG PO TID, (Reported) Aspirin 81 Mg Tablet.dr, 81 MG PO DAILY, (Reported) Cholecalciferol (Vitamin D3) 2,000 Unit Capsule, 2,000 UNIT PO DAILY, (Reported) Citalopram Hydrobromide 20 Mg Tablet, 20 MG PO DAILY, (Reported) Fluticasone Propionate 9.9 Ml [place].susp, 2 SPRAYS NS BID Prescribed by: NEGRA RAMIREZ on 12/02/17 0230 Fluticasone/Vilanterol 1 Each Blst.w.dev, 1 PUFF IH DAILY, (Reported) Losartan Potassium 100 Mg Tablet, 100 MG PO HS, (Reported) Metoprolol Tartrate 50 Mg Tablet, 25 MG PO BID, (Reported) TAKES 1/2 OF A (50 MG) TABLET Omeprazole 20 Mg Capsule.dr, 20 MG PO BID, (Reported) Patient Home Medication List Home Medication List Reviewed: Yes Review of Systems Review of Systems Constitutional: see HPI EENTM: see HPI Respiratory: no symptoms reported Cardiovascular: no symptoms reported Genitourinary: no symptoms reported Musculoskeletal: no symptoms reported Skin: no symptoms reported Psychiatric/Neurological: No Symptoms Reported Hematologic/Lymphatic: No Symptoms Reported Past Imqwutj-Njnyus-Npweme Hx Patient Social History Type Used: Cigarettes Former Smoker, Quit: Jul 15, 1994 2nd Hand Smoke Exposure: No Recent Hopitalizations: No Immunizations Up To Date Tetanus Booster (TDap): More than 5yrs Date of Pneumonia Vaccine: Sep 30, 2016 Date of Influenza Vaccine: Jul 17, 2017 Seasonal Allergies Seasonal Allergies: No Past Medical History Surgeries: Yes (HEMORRHOIDECTOMY; HIATAL HERNIA REPAIR X 2 ; HYST/OVARIES INTACT) Abdominal, Bladder Surgery, Gallbladder, Hysterectomy, Rectal, Tonsillectomy Respiratory: Yes Asthma, COPD, Emphysema Currently Using CPAP: No Currently Using BIPAP: No Cardiac: Yes (Ascending aortic aneurysn) Aneurysm, Hypertension Neurological: No Reproductive Disorders: No 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 Sexually Transmitted Disease: No HIV/AIDS: No Genitourinary: No Gastrointestinal: Yes (HIATAL HERNIA REPAIR X 2) Gastroesophageal Reflux, Chronic Constipation, Hemorrhoids, Hiatal Hernia Musculoskeletal: Yes (SCIATICA) Arthritis, Chronic Back Pain Endocrine: No Loss of Vision: Denies Hearing Impairment: Denies Cancer: No Psychosocial: Yes Anxiety, Depression Integumentary: No Blood Disorders: No Family Medical History Abdominal aortic aneurysm 03 FATHER Alcoholism 03 FATHER Cancer 03 FATHER Cataract 03 MOTHER Chest pain 03 FATHER Congestive heart failure 03 FATHER Family history: Cardiovascular disease 03 FATHER 03 MOTHER Family history: Coronary thrombosis 03 MOTHER Family history: Diabetes mellitus 03 MOTHER Family history: Glaucoma 03 MOTHER Family history: Hypertension 03 MOTHER Family history: Osteoporosis 03 MOTHER Headache 03 FATHER 03 MOTHER 09 BROTHER 09 BROTHER 09 SISTER Heart disease 03 FATHER History of - respiratory disease 03 FATHER Kidney disease 03 MOTHER Myocardial infarction 03 FATHER Stroke Visual impairment 03 FATHER 03 MOTHER No Family History of: Dickenson's disease Aphasia Cancer of colon Congenital heart disease Cystic fibrosis Dementia Dysphagia Family history: Allergy Family history: Alzheimer's disease Family history: Arthritis Family history: Asthma Family history: Breast disease Family history: Gastrointestinal disease Family history: Thyroid disorder Hearing loss Hereditary disease History of - anemia History of - disorder History of drug abuse Human immunodeficiency virus (HIV) seropositivity Hypercholesterolemia Infertile Malignant neoplasm of lung Parkinson's disease Prostate cancer Psychotic disorder Seizure disorder Tuberculosis Heart Disease, Cancer, Diabetes, Hypertension, Other Conditions/Hx Physical Exam Vital Signs Capillary Refill : Height, Weight, BMI Height: 5'0.00" Weight: 130lbs. 0.0oz. 58.662868at; 23.00 BMI Method:Stated General Appearance: No Apparent Distress, WD/WN Eyes: Bilateral Eye Normal Inspection, Bilateral Eye PERRL, Bilateral Eye EOMI Neck: Full Range of Motion, Normal Inspection Respiratory: Lungs Clear, Normal Breath Sounds, No Accessory Muscle Use, No Respiratory Distress Cardiovascular: Regular Rate, Rhythm, Normal Peripheral Pulses Gastrointestinal: Normal Bowel Sounds, Non Tender, Soft Extremity: Normal Capillary Refill, Normal Inspection Neurologic/Psychiatric: Alert, Oriented x3 Skin: Normal Color, Warm/Dry Progress/Results/Core Measures Suspected Sepsis SIRS Temperature: Pulse: Respiratory Rate: Blood Pressure / Mean: Results/Orders My Orders Orders - GHANSHYAM SANDOVAL APRN Coronavirus Sars-Cov-2 So 2019 (08/01/20 20:58) Vital Signs/I&O Capillary Refill : Departure Impression Primary Impression: Exposure to COVID-19 virus Disposition: HOME, SELF-CARE Condition: Stable Departure-Patient Inst. Decision time for Depature: 20:55 Referrals: YAZAN KERR MD (PCP/Family) Primary Care Physician Patient Instructions: Coronavirus Disease 2019 (COVID-19) Overview Add. Discharge Instructions: Unfortunately, I think going out of town this weekend is a bad idea even if your test is negative. We advise people to stay quarantined until 14 days after exposure. GHANSHYAM SANDOVAL APRN Aug 01, 2020 20:56
== END 2020-08-01 21:14 | disposition home or self-care (01) ==
LOC: EDUNIT# 19:59 → ER 20:00
DX: Z20.828 Contact with and (suspected) exposure to other viral communicable diseases (principal); I10 Essential (primary) hypertension; J43.9 Emphysema, unspecified; K21.9 Gastro-esophageal reflux disease without esophagitis; F32.9 Major depressive disorder, single episode, unspecified; F41.9 Anxiety disorder, unspecified; Z80.9 Family history of malignant neoplasm, unspecified; Z87.891 Personal history of nicotine dependence; Z88.1 Allergy status to other antibiotic agents; Z91.041 Radiographic dye allergy status; Z79.82 Long term (current) use of aspirin; Z79.51 Long term (current) use of inhaled steroids
CPT/HCPCS: 87635; 99281

== ENCOUNTER → 2021-10-19 | Outpatient (CLI) | payer MEDICARE, OTHER ==
[~2021-10-19] MED LIST changes: +DOXY-311 PO; -DOXY100C42 PO; +ESCI-2 PO; -ESCI10TA55 PO
--- NOTE | 2021-10-19 13:59 | Diagnostic Imaging Report ---
CT CHEST WO TECHNIQUE: Multiple contiguous axial images were obtained through the chest without the use of intravenous contrast. All CT scans use one or more of the following dose optimizing techniques: Automated exposure control, MA and/or KvP adjustment based on a patient size and exam type, or iterative reconstruction. INDICATION: Hypoxemia. COMPARISON: 06/15/2019. FINDINGS: Lungs and airway: No debris or nodule within the trachea. Mild biapical subpleural scarring is noted. No pneumonia or edema. No pulmonary fibrosis or bronchiectasis. No suspicious pulmonary nodules. Pleura: No pleural effusion or pneumothorax. Heart and mediastinum: No supraclavicular or axillary lymphadenopathy. No mediastinal or hilar lymphadenopathy. Mild aneurysmal dilatation of the ascending aorta measuring up to 4.5 cm is unchanged. Small hiatal hernia is stable in appearance. Surgical clips along the hiatal hernia are again noted. Upper abdomen: Cholecystectomy. No concerning abnormality is visualized in the upper abdomen. Musculoskeletal: Prior vertebral augmentation of T10. No concerning focal osseous lesions are noted. IMPRESSION: 1. No acute intrathoracic abnormality. 2. Mild fusiform aneurysm of the ascending aorta measuring 4.5 cm is unchanged since 2017. 3. Chronic hiatal hernia is also unchanged since 2017. Dictated by: Dictated on workstation # [id number]
== END ==
LOC: RAD 12:45
PROVIDERS: ATTEND Family Medicine
DX: I71.2 Thoracic aortic aneurysm, without rupture (principal); J43.9 Emphysema, unspecified; K44.9 Diaphragmatic hernia without obstruction or gangrene
CPT/HCPCS: 71250

== ENCOUNTER → 2022-11-20 | Outpatient (CLI) | payer MEDICARE ==
[~2022-11-20] MED LIST changes: +ALBU2.5V4 INH; +AMOX1TAB12 PO; +CHOL20002 PO; +DICY10CA12 PO; -DOXY-311 PO; +DOXY-444 PO; +ESCI20TA39 PO; +FLUC150T PO; +FLUT16SP22 NS; +GUAI5SYR PO; +LACT1CAP87 PO; +NEBU-140 MC
--- NOTE | 2022-11-20 19:49 | Diagnostic Imaging Report ---
Clinical indication: Patient with obstipation. EXAM: X-ray of the abdomen with multiple supine and upright views. COMPARISON: X-ray of the abdomen dated 02/19/2016. FINDINGS: There is a nonobstructed bowel gas pattern. There is no evidence of abdominal free air. There is a small amount of stool scattered throughout the colon. There are hypertrophic spurs involving the lumbar spine. There is left curvature of the lumbar spine. There is interval compression deformity and kyphoplasty changes involving the T10 vertebra. There are surgical clips overlying the lower mediastinal region. There are no abnormal calcifications overlying the expected regions of the kidneys, ureters, or bladder. IMPRESSION: 1: There is no radiographic evidence for acute abdominal/ pelvic process. 2: There is a small amount of stool scattered throughout the colon. Dictated by: Dictated on workstation # [id number]
== END ==
LOC: RAD 17:49
PROVIDERS: ATTEND Internal Medicine Gastroenterology
DX: K59.00 Constipation, unspecified (principal)
CPT/HCPCS: 74018

== ENCOUNTER → 2023-07-25 | Outpatient (CLI) | payer MEDICARE ==
[~2023-07-25] MED LIST changes: +DICY-11 PO; -DICY10CA12 PO; -LOSA100T57 PO; +LOSA100T58 PO
--- NOTE | 2023-07-25 11:21 | Diagnostic Imaging Report ---
CLINICAL INDICATION: Patient status post fall x1 week ago. Patient has continued right hip pain. EXAM: X-ray of the right hip, AP and frog-leg views. COMPARISON: X-ray right hip dated 03/29/2016. X-ray of the abdomen and pelvis dated 11/20/2022. Findings and impression: 1: There is no evidence of acute fracture or dislocation. 2: There is a chronic fracture deformity involving the inferior right pubic ramus which is also seen on comparison x-ray of the abdomen. 3: There is no other significant abnormality seen. Dictated by: Dictated on workstation # [id number]
== END ==
LOC: RAD 10:27
PROVIDERS: ATTEND Nurse Practitioner Family
DX: M21.851 Other specified acquired deformities of right thigh (principal)
CPT/HCPCS: 73502

== ENCOUNTER 2023-08-05 12:14 | Inpatient (IN) | payer MEDICARE ==
[~2023-08-05] VITALS: Ht 152 cm; Wt 48.0 kg
--- NOTE | 2023-08-05 13:54 | ED Hip Pain/Injury ---
General Chief Complaint: Trauma-Non Activation Stated Complaint: FALL | RT THIGH AND HIP PAIN Nursing Triage Note: PT STATES HAVING A FALL FROM WALKING ABOUT 4 WKS AGO, CC OF RT THIGH/HIP PAIN. STATES HAVING XRAYS DONE Source: patient Exam Limitations: no limitations (HILARY CRUZ) History of Present Illness Date Seen by Provider: Aug 05, 2023 Time Seen by Provider: 13:52 Initial Comments Patient is a 83-year-old female who presents ED with daughter for evaluation of her right hip and right leg pain. She fell 4 weeks ago a mechanical fall la nding on her right hip and right upper leg. She states she was able to stand and bear weight. Has been using a walker. She reported dull achy pain but this pain is progressive got worse over the past 3-1/2 weeks. Worse with sitting or standing. She denies any bruising or swelling. She has had 2 negative x-rays. Her primary care physician called over to the ED for CT scan of her pelvis and femur secondary to her pain to rule out occult fracture. She has been taken Tylenol and tramadol. Her primary did refill her tramadol today. She denies of any bowel or urine incontinence or saddle paresthesia. No lower extremity weakness. Has been using a walker. She was scheduled for PT today but did not make her appointment secondary to the pain. Here with daughter. She denies any abdominal pain, middle lower back pain, chest pain, shortness of breath, headache or dizziness. (HILARY CRUZ) Allergies and Home Medications Allergies Coded Allergies: Iodinated Contrast Media (Verified Allergy, Intermediate, Hives, 02/03/22) azithromycin (Verified Allergy, Unknown, 02/03/22) Uncoded Allergies: ERYTHROMYCIN (Allergy, Unknown, 01/07/17) Patient Home Medication List Home Medication List Reviewed: Yes (HILARY CRUZ) Alprazolam (Alprazolam) 1 Mg Tablet, 1 MG PO BID, (Reported) Entered as Reported by: CORONA CASTAONN on 07/15/17 1342 Last Action: Continued Aspirin (Aspirin EC) 81 Mg Tablet.dr, 81 MG PO DAILY, (Reported) Entered as Reported by: CORONA CASTANON on 07/15/17 1345 Last Action: Continued Cholecalciferol (Vitamin D3) (Vitamin D3) 50 Mcg (2000 Unit) Capsule, 50 MCG PO DAILY, (Reported) Entered as Reported by: FILIPPO FERNÁNDEZ on 02/04/221152 Last Action: Converted Escitalopram Oxalate (Escitalopram Oxalate) 20 Mg Tablet, 20 MG PO HS, (Reported) Entered as Reported by: FILIPPO FERNÁNDEZ on 02/04/221152 Last Action: Held Fluticasone Propionate (Flonase Allergy Relief) 50 Mcg/Actuation [place].susp, 1 SPRAY NSEACH BID PRN for CONGESTION, (Reported) Entered as Reported by: FILIPPO FERNÁNDEZ on 08/06/231546 Last Action: Converted Metoprolol Tartrate (Metoprolol Tartrate) 25 Mg Tablet, 25 MG PO BID, (Reported) Entered as Reported by: FILIPPO FERNÁNDEZ on 08/06/231546 Last Action: Continued Omeprazole (Omeprazole) 20 Mg Capsule.dr, 20 MG PO BID, (Reported) Entered as Reported by: CORONA CASTANON on 07/15/17 1342 Last Action: Continued Wheat Dextrin (Benefiber) 3 Gram/3.5 Gram Powd.pack, 1 EACH PO DAILY PRN for CONSTIPATION, (Reported) Entered as Reported by: FILIPPO FERNÁNDEZ on 08/06/231546 Last Action: Converted Zinc Gluconate (Zinc) 50 Mg Tablet, 50 MG PO DAILY, (Reported) Entered as Reported by: FILIPPO FERNÁNDEZ on 08/06/231546 Last Action: Converted Discontinued Medications Albuterol Sulfate (Albuterol Sulfate) 2.5 Mg/3 Ml (0.083 %) Vial.neb, 2.5 MG INH RTQID Discontinued Reason: No Longer Taking Prescribed by: YAZAN KERR on 02/07/22914 Last Action: Discontinued Amoxicillin/Potassium Clav (Amox Tr-K Clv 875-125 mg Tab) 875 Mg-125 Mg Tablet, 1 EACH PO BID Discontinued Reason: No Longer Taking Prescribed by: YAZAN KERR on 02/07/22914 Last Action: Discontinued Dicyclomine HCl (Dicyclomine HCl) 10 Mg Capsule, 10 MG PO BID, (Reported) Discontinued Reason: No Longer Taking Entered as Reported by: PHILIP GALVAN on 02/03/221622 Last Action: Discontinued Fluconazole (Diflucan) 150 Mg Tablet, 150 MG PO DAILY Discontinued Reason: No Longer Taking Prescribed by: YAZAN KERR on 02/07/22914 Last Action: Discontinued Fluticasone Propionate (Fluticasone Propionate) 50 Mcg/Actuation [place].susp, 0 SPRAY NS DAILY Discontinued Reason: No Longer Taking Prescribed by: YAZAN KERR on 02/07/22914 Last Action: Discontinued Guaifenesin/Dextromethorphan (Guaifenesin Dm Syrup) 100 Mg-10 Mg/5 Ml Syrup, 10 ML PO Q6H PRN for COUGH Discontinued Reason: No Longer Taking Prescribed by: YAZAN KRER on 02/07/22914 Last Action: Discontinued Lactobacillus Acidophilus (Acidophilus Lactobacilli) 500 Million Cell Capsule, 1 EACH PO TID Discontinued Reason: No Longer Taking Prescribed by: YAZAN KERR on 02/07/22914 Last Action: Discontinued Metoprolol Tartrate (Metoprolol Tartrate) 50 Mg Tablet, 25 MG PO BID, (Reported) Discontinued Reason: No Longer Taking Entered as Reported by: CORONA CASTANON on 07/15/17 1342 Last Action: Discontinued Nebulizer (Aeroneb Go Nebuliser) 1 Each Each, EACH MC Q6H, (DME) Discontinued Reason: No Longer Taking Prescribed by: YAZAN KERR on 02/07/22914 Last Action: Discontinued Prednisone (Prednisone) 20 Mg Tab, 20 MG PO DAILY@0700 Discontinued Reason: No Longer Taking Prescribed by: YAZAN KERR on 02/07/22914 Last Action: Discontinued Review of Systems Constitutional: No chills, No diaphoresis, No malaise, No weakness EENTM: No hearing loss, No ear pain, No blurred vision Respiratory: No cough, No dyspnea on exertion Cardiovascular: No chest pain, No edema Gastrointestinal: No abdominal pain, No diarrhea, No nausea, No vomiting Genitourinary: No decreased output, No discharge Musculoskeletal: No back pain; joint pain, muscle pain, muscle stiffness Skin: No change in color, No change in hair/nails (HILARY CRUZ) All Other Systems Reviewed Negative Unless Noted: Yes (HILARY CRUZ) Past Crtxsey-Ofnopq-Cenahp Hx Patient Social History Tobacco Use?: Yes Smoking Status: Former Smoker Substance use?: No Alcohol Use?: No (HILARY CRUZ) Immunizations Up To Date Tetanus Booster (TDap): More than 5yrs First/Initial COVID19 Vaccinat: 10/19/20 Second COVID19 Vaccination Xavier: 11/18/20 Third COVID19 Vaccination Date: 05/25/21 (HILARY CRUZ) Seasonal Allergies Seasonal Allergies: No (HILARY CRUZ) Past Medical History Surgery/Hospitalization HX: HYST, HTN, HEMORRHOIDECTOMY, HERNIA LAP REPAIR, TONSILS Surgeries: Yes (HEMORRHOIDECTOMY; HIATAL HERNIA REPAIR X 2 ; HYST/OVARIES INTACT) Abdominal, Bladder Surgery, Gallbladder, Hysterectomy, Rectal, Tonsillectomy Respiratory: Yes Asthma, COPD, Emphysema Currently Using CPAP: No Currently Using BIPAP: No Cardiac: Yes (Ascending aortic aneurysn) Aneurysm, Hypertension Neurological: No Reproductive Disorders: No 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, 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 Sexually Transmitted Disease: No HIV/AIDS: No Genitourinary: No Gastrointestinal: Yes (HIATAL HERNIA REPAIR X 2) Gastroesophageal Reflux, Chronic Constipation, Hemorrhoids, Hiatal Hernia Musculoskeletal: Yes (SCIATICA) Arthritis, Chronic Back Pain Endocrine: No Loss of Vision: Denies Hearing Impairment: Denies Cancer: No Psychosocial: Yes Anxiety, Depression Integumentary: No Blood Disorders: No (HILARY CRUZ) Family Medical History Abdominal aortic aneurysm 03 FATHER Alcoholism 03 FATHER Cancer 03 FATHER Cataract 03 MOTHER Chest pain 03 FATHER Congestive heart failure 03 FATHER Family history: Cardiovascular disease 03 FATHER 03 MOTHER Family history: Coronary thrombosis 03 MOTHER Family history: Diabetes mellitus 03 MOTHER Family history: Glaucoma 03 MOTHER Family history: Hypertension 03 MOTHER Family history: Osteoporosis 03 MOTHER Headache 03 FATHER 03 MOTHER 09 BROTHER 09 BROTHER 09 SISTER Heart disease 03 FATHER History of - respiratory disease 03 FATHER Kidney disease 03 MOTHER Myocardial infarction 03 FATHER Stroke Visual impairment 03 FATHER 03 MOTHER No Family History of: [place]'s disease Aphasia Cancer of colon Congenital heart disease Cystic fibrosis Dementia Dysphagia Family history: Allergy Family history: Alzheimer's disease Family history: Arthritis Family history: Asthma Family history: Breast disease Family history: Gastrointestinal disease Family history: Thyroid disorder Hearing loss Hereditary disease History of - anemia History of - disorder History of drug abuse Human immunodeficiency virus (HIV) seropositivity Hypercholesterolemia Infertile Malignant neoplasm of lung Parkinson's disease Prostate cancer Psychotic disorder Seizure disorder Tuberculosis Heart Disease, Cancer, Diabetes, Hypertension, Other Conditions/Hx (HILARY CRUZ) Physical Exam Vital Signs Vital Signs - First Documented 08/05/23 13:18 Temp 36.6 Pulse 72 Resp 18 B/P (MAP) 171/103 (125) Pulse Ox 96 O2 Delivery Room Air (AMBIKA HAMMOND MD) Vital Signs Capillary Refill : Less Than 3 Seconds (HILARY CRUZ) Height, Weight, BMI Height: 5'0.00" Weight: 130lbs. 0.0oz. 58.974716la; 20.00 BMI Method:Stated General Appearance: No Apparent Distress, WD/WN HEENT: PERRL/EOMI, TMs Normal, Normal ENT Inspection, Pharynx Normal Neck: Full Range of Motion, Normal Inspection, Non Tender, Supple Cardiovascular: Regular Rate, Rhythm, No Edema, No Gallop, No JVD Respiratory: Chest Non Tender, Lungs Clear, Normal Breath Sounds, No Accessory Muscle Use, No Respiratory Distress Gastrointestinal: Normal Bowel Sounds, No Organomegaly, No Pulsatile Mass, Non Tender Back: Normal Inspection, No CVA Tenderness, Other (Patient without any thoracic or lumbar midline tenderness.) Extremity: Other (Right proximal and mid femur tenderness. No swelling bruising or redness. Flexion strength 5-5. Knee flexion and extension strength 5-5. Neurovascular intact. No calf or thigh swelling or bruising. 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 Norm as Tested Skin: Normal Color, Warm/Dry (HILARY CRUZ) Progress/Results/Core Measures Results/Orders Lab Results Laboratory Tests Test 08/05/23 15:28 Range/Units White Blood Count 5.5 4.3-11.0 10^3/uL Red Blood Count 4.19 3.80-5.11 10^6/uL Hemoglobin 12.0 11.5-16.0 g/dL Hematocrit 38 35-52 % Mean Corpuscular Volume 91 80-99 fL Mean Corpuscular Hemoglobin 29 25-34 pg Mean Corpuscular Hemoglobin Concent 32 32-36 g/dL Red Cell Distribution Width 14.1 10.0-14.5 % Platelet Count 260 130-400 10^3/uL Mean Platelet Volume 9.5 9.0-12.2 fL Immature Granulocyte % (Auto) 0 % Neutrophils (%) (Auto) 69 42-75 % Lymphocytes (%) (Auto) 21 12-44 % Monocytes (%) (Auto) 6 0-12 % Eosinophils (%) (Auto) 3 0-10 % Basophils (%) (Auto) 1 0-10 % Neutrophils # (Auto) 3.8 1.8-7.8 X 10^3 Lymphocytes # (Auto) 1.2 1.0-4.0 X 10^3 Monocytes # (Auto) 0.3 0.0-1.0 X 10^3 Eosinophils # (Auto) 0.2 0.0-0.3 10^3/uL Basophils # (Auto) 0.0 0.0-0.1 10^3/uL Immature Granulocyte # (Auto) 0.0 0.0-0.1 10^3/uL Sodium Level 130 L 135-145 MMOL/L Potassium Level 3.8 3.6-5.0 MMOL/L Chloride Level 96 L 98-107 MMOL/L Carbon Dioxide Level 25 21-32 MMOL/L Anion Gap 9 5-14 MMOL/L Blood Urea Nitrogen 11 7-18 MG/DL Creatinine 0.62 0.60-1.30 MG/DL Estimat Glomerular Filtration Rate 88 BUN/Creatinine Ratio 18 Glucose Level 85 70-105 MG/DL Calcium Level 8.8 8.5-10.1 MG/DL Corrected Calcium 9.2 8.5-10.1 MG/DL Total Bilirubin 0.7 0.1-1.0 MG/DL Aspartate Amino Transf (AST/SGOT) 19 5-34 U/L Alanine Aminotransferase (ALT/SGPT) 11 0-55 U/L Alkaline Phosphatase 162 H 40-136 U/L Total Protein 7.7 6.4-8.2 GM/DL Albumin 3.5 3.2-4.5 GM/DL (AMBIKA HAMMOND MD) Vital Signs/I&O 08/05/23 08/05/23 08/05/23 13:18 15:45 15:48 Temp 36.6 36.6 36.6 Pulse 72 70 Resp 18 18 B/P (MAP) 171/103 (125) 153/94 Pulse Ox 96 96 O2 Delivery Room Air Room Air (AMBIKA HAMMOND MD) Blood Pressure Mean: 125 Comment Sinus rhythm with occasional ventricular premature complexes, 69 bpm, QRS duration 75 MS, QTc 439 MS. (HILARY CRUZ) Departure Communication (PCP) Patient with a mechanical fall about 3-1/2 weeks ago. Continuous pain. 2 negative outpatient x-rays. X-ray on the 25 July did not show any acute fracture. Was sent to the ED for CT scan. Difficulty ambulating but using a walker. She has tenderness to right sided hip and proximal femur. CT scan pel vis and femur were ordered. CT scan shows a nondisplaced intertrochanteric fracture in the proximal right femur. Neurovascular intact. Patient states he gets pain with movement. Patient did receive a dose of fentanyl 25 mcg. Patient was discussed with Dr. ARECHIGA orthopedic who recommended intermedullary ronny and surgery in the morning. N.p.o. after midnight. Patient agreed to proceed. Patient was discussed with Dr. Bailey hospitalist who agreed to accept patient. General lab work chest x-ray EKG was obtained. Patient is fairly healthy. Not currently on anticoagulants. CBC CMP grossly unremarkable besides sodium 130, chloride 96. Chest x-ray unremarkable. EKG without evidence of ST elevation or depression. She denies any chest pain or shortness of breath. Patient is otherwise healthy. (HILARY CRUZ) Impression Primary Impression: Hip fracture, right Disposition: ADMITTED INPATIENT Condition: Stable Admissions Decision to Admit Reason: Admit from ER (General) Decision to Admit/Date: Aug 05, 2023 Time/Decision to Admit Time: 15:56 (HILARY CRUZ) Departure-Patient Inst. Referrals: YAZAN KERR MD (PCP/Family) Primary Care Physician ATTENDING PHYSICIAN NOTE: I was physically present as attending physician in the emergency department during the care of this patient, but I was not directly involved in the decision making or delivery of care for this patient. (AMBIKA HAMMOND MD) HILARY CRUZ Aug 05, 2023 13:54 AMBIKA HAMMOND MD Aug 06, 2023 17:12
--- NOTE | 2023-08-05 14:28 | Diagnostic Imaging Report ---
PROCEDURE: CT right lower extremity without contrast. TECHNIQUE: Axially acquired CT was obtained through the right lower extremity without intravenous contrast. Coronal and sagittal reformations were also performed. Auto Exposure Controls were utilized during the CT exam to meet ALARA standards for radiation dose reduction. INDICATION: Right hip pain. COMPARISON: Right hip radiographs of 07/25/2023. FINDINGS: There is an oblique simple fracture through the intertrochanteric region of the femur that is nondisplaced. The fracture has a conventional orientation and does not involve the femoral neck. No avascular necrosis of the femoral head. Mild osteoarthritis of the right hip. No hip effusion. Old healed fracture of the right inferior pubic ramus. IMPRESSION: 1. Acute nondisplaced intertrochanteric fracture in the proximal right femur. Dictated by: Dictated on workstation # [id number]
--- NOTE | 2023-08-05 14:30 | Diagnostic Imaging Report ---
PROCEDURE: CT pelvis without contrast. TECHNIQUE: Multiple contiguous axial images were obtained through the pelvis without the use of intravenous contrast. Sagittal and coronal reformations were performed. Auto Exposure Controls were utilized during the CT exam to meet ALARA standards for radiation dose reduction. INDICATION: Right hip pain. COMPARISON: CT of the right hip performed concurrently. FINDINGS: Please see separate report for CT of the right hip for details of the right intertrochanteric fracture. There are old healed fractures of the bilateral inferior pubic rami. No sacral insufficiency fracture. No fracture in the proximal left femur. No free pelvic fluid. No pelvic or inguinal lymphadenopathy. Sigmoid colon diverticulosis without diverticulitis. No appreciable hip effusion on either side. A 7.0 x 4.8 cm left adnexal cyst has mildly increased in size since 2016. Given the small growth, this is most likely a cystadenoma of the ovary. IMPRESSION: 1. Please see separate CT report for details of the right intertrochanteric fracture. 2. No other acute fracture within the pelvis. 3. 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 Dictated by: Dictated on workstation # [id number]
[2023-08-05] MEDS ORDERED: fentaNYL INJECTION 100 MCG/2 ML VIAL IVP STA (15:36)
--- NOTE | 2023-08-05 15:36 | Diagnostic Imaging Report ---
INDICATION: Cough. COMPARISON: 02/03/2022. FINDINGS: Flattening of the diaphragms, air trapping, and features of COPD are stable and chronic. No pneumonia, failure pattern, effusion, pneumothorax, or interval change. IMPRESSION: Stable chronic findings. Dictated by: Dictated on workstation # [id number]
[2023-08-05 15:37] LABS: BASOPHILS % (AUTO) 1 % (0-10); EOSINOPHILS # (AUTO) 0.2 10^3/uL (0.0-0.3); EOSINOPHILS % (AUTO) 3 % (0-10); HEMATOCRIT 38 % (35-52); LYMPHOCYTES # (AUTO) 1.2 X 10^3 (1.0-4.0); LYMPHOCYTES % (AUTO) 21 % (12-44); MEAN CORPUSCULAR HEMOGLOBIN 29 pg (25-34); MEAN CORPUSCULAR HGB CONC 32 g/dL (32-36); MEAN CORPUSCULAR VOLUME 91 fL (80-99); MEAN PLATELET VOLUME 9.5 fL (9.0-12.2); MONOCYTES # (AUTO) 0.3 X 10^3 (0.0-1.0); MONOCYTES % (AUTO) 6 % (0-12); NEUTROPHILS # (AUTO) 3.8 X 10^3 (1.8-7.8); NEUTROPHILS % (AUTO) 69 % (42-75); PLATELET COUNT 260 10^3/uL (130-400); WHITE BLOOD COUNT 5.5 10^3/uL (4.3-11.0)
[2023-08-05 15:56] LABS: ALBUMIN 3.5 GM/DL (3.2-4.5); POTASSIUM 3.8 MMOL/L (3.6-5.0)
[2023-08-05 15:58] LABS: CALCIUM 8.8 MG/DL (8.5-10.1)
[2023-08-05 15:59] LABS: TOTAL PROTEIN 7.7 GM/DL (6.4-8.2)
[2023-08-05 16:01] LABS: BILIRUBIN,TOTAL 0.7 MG/DL (0.1-1.0)
[2023-08-05 16:02] LABS: CREATININE SERUM 0.62 MG/DL (0.60-1.30)
[2023-08-05 16:33] VITALS: BP 134/83
[2023-08-05] MEDS ORDERED: diphenhydrAMINE 25 MG TABLET PO PRN (17:00)
[2023-08-05] MEDS ORDERED: diphenhydrAMINE INJ 50 MG/ML VIAL IVP PRN (17:00)
[2023-08-05] MEDS ORDERED: cloNIDine 0.1 MG TABLET PO PRN (17:00)
[2023-08-05] MEDS ORDERED: CALCIUM CARBONATE 500 MG CHEW TABLET PO PRN (17:00)
[2023-08-05] MEDS ORDERED: ONDANSETRON 4 MG ORAL DISSOLVE TABLET PO PRN (17:00)
[2023-08-05] MEDS ORDERED: ACETAMINOPHEN 325 MG TABLET PO PRN (17:00)
[2023-08-05] MEDS ORDERED: MILK OF MAGNESIA 400 MG/5 ML 30 ML UDC PO PRN (17:00)
[2023-08-05] MEDS ORDERED: ONDANSETRON INJECTION 4 MG/2 ML (SDV) IV PRN (17:00)
[2023-08-05] MEDS ORDERED: BISACODYL 10 MG SUPPOSITORY PR PRN (17:00)
[2023-08-05] MEDS ORDERED: LACTULOSE SYRUP 10GM/15ML 30ML UDC PO PRN (17:00)
[2023-08-05] MEDS ORDERED: ANTACID SUSPENSION 30 ML UDC PO PRN (17:00)
--- NOTE | 2023-08-05 17:06 | CONSULTATION REPORT ---
DATE OF SERVICE: 08/05/2023 REASON FOR CONSULTATION: Right intertrochanteric femur fracture. HISTORY OF PRESENT ILLNESS: The patient is an 83-year-old female who has had a 3-week history of right hip and right leg pain following a fall. Radiographs have been negative. She has had increased pain and reports difficulty with bearing weight. She has been using a walker. She reports pain in her groin. She reports that she had no recent pain. Ultimately, a CT scan was obtained, which revealed a nondisplaced intertrochanteric femur fracture. ALLERGIES: IV CONTRAST, AZITHROMYCIN. HOME MEDICATIONS: Albuterol, alprazolam, aspirin, vitamin D, dicyclomine, fluconazole, metoprolol, prednisone. PAST SURGICAL HISTORY: Hysterectomy, hemorrhoidectomy, herniorrhaphy, tonsillectomy. PAST MEDICAL HISTORY: COPD, hypertension. PHYSICAL EXAMINATION: EXTREMITIES: Right lower extremity is tender laterally at her greater trochanter. She has pain with internal and external rotation of the hip. Pulses are symmetric. She has intact sensation distally with intact dorsiflexion and plantarflexion of the toes. IMPRESSION: Nondisplaced intertrochanteric right femur fracture. PLAN: Right hip intramedullary nail. The risks, benefits, options, ramifications and recovery were discussed at length with the patient. She understands and wishes to proceed. Job ID: [id number] DocumentID: [id number] Dictated Date: 08/05/2023 16:16:07 Buttermaker Date: 08/05/2023 17:03:00 Dictated By: JUDITH ARECHIGA MD
[2023-08-05 17:12] VITALS: BP 134/83
[2023-08-05] MEDS ORDERED: RT-Ipratropium/Albuterol NEB 3 ML VIAL INH PRN (17:30)
[2023-08-05] MEDS: NS IV 1000 ML 1,000 ML IV SCH (17:39)
[2023-08-05] MEDS: DOCUSATE SODIUM 100 MG CAPSULE PO SCH (20:28)
[2023-08-05] MEDS: SENNOSIDES 8.6 MG TABLET PO SCH (20:28)
[2023-08-05 20:29] VITALS: BP 140/76
[2023-08-05] MEDS: RT-Ipratropium/Albuterol NEB 3 ML VIAL INH SCH (22:01)
[2023-08-05 23:12] VITALS: BP 165/69
[2023-08-05] MEDS: HYDROmorphone INJECTION 2 MG/ML VIAL IV PRN (23:20)
[2023-08-06] VITALS (12 sets, daily range): BP systolic 95–189; BP diastolic 65–94
[2023-08-06 05:48] LABS: BASOPHILS % (AUTO) 1 % (0-10); EOSINOPHILS # (AUTO) 0.2 10^3/uL (0.0-0.3); EOSINOPHILS % (AUTO) 5 % (0-10); HEMATOCRIT 35 % (35-52); HEMOGLOBIN 11.2 g/dL (11.5-16.0); LYMPHOCYTES # (AUTO) 1.2 10^3/uL (1.0-4.0); LYMPHOCYTES % (AUTO) 27 % (12-44); MEAN CORPUSCULAR HEMOGLOBIN 29 pg (25-34); MEAN CORPUSCULAR HGB CONC 32 g/dL (32-36); MEAN CORPUSCULAR VOLUME 90 fL (80-99); MEAN PLATELET VOLUME 9.9 fL (9.0-12.2); MONOCYTES # (AUTO) 0.4 10^3/uL (0.0-1.0); MONOCYTES % (AUTO) 8 % (0-12); NEUTROPHILS # (AUTO) 2.7 10^3/uL (1.8-7.8); NEUTROPHILS % (AUTO) 60 % (42-75); PLATELET COUNT 214 10^3/uL (130-400); WHITE BLOOD COUNT 4.4 10^3/uL (4.3-11.0)
[2023-08-06 05:58] LABS: ALBUMIN 3.1 GM/DL (3.2-4.5)
[2023-08-06 05:59] LABS: POTASSIUM 3.8 MMOL/L (3.6-5.0)
[2023-08-06 06:00] LABS: CALCIUM 8.4 MG/DL (8.5-10.1)
[2023-08-06 06:01] LABS: TOTAL PROTEIN 6.8 GM/DL (6.4-8.2)
[2023-08-06 06:03] LABS: BILIRUBIN,TOTAL 0.6 MG/DL (0.1-1.0)
[2023-08-06 06:05] LABS: CREATININE SERUM 0.6 MG/DL (0.60-1.30)
[2023-08-06] MEDS: RT-Ipratropium/Albuterol NEB 3 ML VIAL INH SCH ×2 (07:35→21:39)
[2023-08-06] MEDS: DOCUSATE SODIUM 100 MG CAPSULE PO SCH ×2 (07:51→19:52)
[2023-08-06] MEDS: SENNOSIDES 8.6 MG TABLET PO SCH ×2 (07:51→19:52)
--- NOTE | 2023-08-06 09:10 | Progress Note-Pre Operative ---
Pre-Operative Progress Note Date of Available H&P: Aug 06, 2023 Date H&P Reviewed: Aug 06, 2023 Time H&P Reviewed: 09:09 Changes from last HP none Pre-Operative Diagnosis: right intertrochanteric femur fracture JUDITH ARECHIGA MD Aug 06, 2023 09:10
--- NOTE | 2023-08-06 09:11 | Progress Note-Post Operative ---
Post-Operative Progess Note Surgeon (s)/Health Science Instructor (s) Surgeon JUDITH ARECHIGA MD Health Science Instructor: Quinton Mccormick Pre-Operative Diagnosis right intertrochanteric femur fracture Post-Operative Diagnosis right intertrochanteric femur fracture Procedure & Operative Findings Date of Procedure 08/06/23 Procedure Performed/Findings right hip IM ronny Anesthesia Type spinal Estimated Blood Loss Estimated blood loss (mL): 100ml Specimens/Packing Specimens Removed none Packing: none JUDITH ARECHIGA MD Aug 06, 2023 09:11
[2023-08-06] MEDS: NS IV 1000 ML 1,000 ML IV SCH (09:29)
--- NOTE | 2023-08-06 09:37 | History & Physical ---
HILARY CABRERA 08/06/23 0937: History of Present Illness History of Present Illness Reason for visit/HPI Pt states she came to the ED yesterday around 1pm due to rt hip pain that started 4 weeks ago. Reports a fall on July 17. Pt lost her balance walking down steps in her friends front yard and fell to the ground. She had pain present at the time, but it did not decrease mobility or prevent her from driving. She states the following Friday she had an x-ray performed at [facility] and it was "negative" and did not show any signs of fracture. She states that she understands the CT results that were collected yesterday in the ED. Pt is currently in pain, a 07/08, when she is moving her right LE. Pain is not present at rest. She is requesting something for the pain. Sharp, shooting pain that is localized to her rt anterior proximal LE. Denies radiating pain. Pt is having a lot of concerns about her quality of care in the hospital. Reports nurses "not being on the same page" when it comes to her medications, lab results, and blood pressure readings. Pt is having thoughts about being transferred to a different hospital in order to get a second opinion on what needs to be done to treat her rt hip. Date of Admission Aug 05, 2023 at 15:59 I consulted on this patient on 08/06/23 09:30 Attending Physician Yazan Burden MD Admitting Physician Admitting Physician: Payton Hernandez DO Attending Physician: Payton Hernandez DO Consult Allergies and Home Medications Allergies Coded Allergies: Iodinated Contrast Media (Verified Allergy, Intermediate, Hives, 02/03/22) azithromycin (Verified Allergy, Unknown, 02/03/22) Uncoded Allergies: ERYTHROMYCIN (Allergy, Unknown, 01/07/17) Patient Home Medication List Alprazolam (Alprazolam) 1 Mg Tablet, 1 MG PO BID, (Reported) Entered as Reported by: CORONA CASTANON on 07/15/17 1348 Last Action: Continued Aspirin (Aspirin EC) 81 Mg Tablet.dr, 81 MG PO DAILY, (Reported) Entered as Reported by: CORONA CASTANON on 07/15/17 5150 Last Action: Continued Cholecalciferol (Vitamin D3) (Vitamin D3) 50 Mcg (2000 Unit) Capsule, 50 MCG PO DAILY, (Reported) Entered as Reported by: FILIPPO FERNÁNDEZ on 02/04/221152 Last Action: Converted Escitalopram Oxalate (Escitalopram Oxalate) 20 Mg Tablet, 20 MG PO HS, (Reported) Entered as Reported by: FILIPPO FERNÁNDEZ on 02/04/221152 Last Action: Held Fluticasone Propionate (Flonase Allergy Relief) 50 Mcg/Actuation [place].susp, 1 SPRAY NSEACH BID PRN for CONGESTION, (Reported) Entered as Reported by: FILIPPO FERNÁNDEZ on 08/06/231546 Last Action: Converted Metoprolol Tartrate (Metoprolol Tartrate) 25 Mg Tablet, 25 MG PO BID, (Reported) Entered as Reported by: FILIPPO FERNÁNDEZ on 08/06/231546 Last Action: Continued Omeprazole (Omeprazole) 20 Mg Capsule.dr, 20 MG PO BID, (Reported) Entered as Reported by: CORONA CASTANON on 07/15/17 1342 Last Action: Continued Wheat Dextrin (Benefiber) 3 Gram/3.5 Gram Powd.pack, 1 EACH PO DAILY PRN for CONSTIPATION, (Reported) Entered as Reported by: FILIPPO FERNÁNDEZ on 08/06/231546 Last Action: Converted Zinc Gluconate (Zinc) 50 Mg Tablet, 50 MG PO DAILY, (Reported) Entered as Reported by: FILIPPO FERNÁNDEZ on 08/06/231546 Last Action: Converted Discontinued Medications Albuterol Sulfate (Albuterol Sulfate) 2.5 Mg/3 Ml (0.083 %) Vial.neb, 2.5 MG INH RTQID Discontinued Reason: No Longer Taking Prescribed by: YAZAN BURDEN on 02/07/22914 Last Action: Discontinued Amoxicillin/Potassium Clav (Amox Tr-K Clv 875-125 mg Tab) 875 Mg-125 Mg Tablet, 1 EACH PO BID Discontinued Reason: No Longer Taking Prescribed by: YAZAN BURDEN on 02/07/22914 Last Action: Discontinued Dicyclomine HCl (Dicyclomine HCl) 10 Mg Capsule, 10 MG PO BID, (Reported) Discontinued Reason: No Longer Taking Entered as Reported by: PHILIP GALVAN on 02/03/22 162 Last Action: Discontinued Fluconazole (Diflucan) 150 Mg Tablet, 150 MG PO DAILY Discontinued Reason: No Longer Taking Prescribed by: YAZAN BURDEN on 02/07/22914 Last Action: Discontinued Fluticasone Propionate (Fluticasone Propionate) 50 Mcg/Actuation [place].susp, 0 SPRAY NS DAILY Discontinued Reason: No Longer Taking Prescribed by: YAZAN BURDEN on 02/07/22914 Last Action: Discontinued Guaifenesin/Dextromethorphan (Guaifenesin Dm Syrup) 100 Mg-10 Mg/5 Ml Syrup, 10 ML PO Q6H PRN for COUGH Discontinued Reason: No Longer Taking Prescribed by: YAZAN BURDEN on 02/07/22914 Last Action: Discontinued Lactobacillus Acidophilus (Acidophilus Lactobacilli) 500 Million Cell Capsule, 1 EACH PO TID Discontinued Reason: No Longer Taking Prescribed by: YAZAN BURDEN on 02/07/22914 Last Action: Discontinued Metoprolol Tartrate (Metoprolol Tartrate) 50 Mg Tablet, 25 MG PO BID, (Reported) Discontinued Reason: No Longer Taking Entered as Reported by: CORONA CASTANON on 07/15/17 1342 Last Action: Discontinued Nebulizer (Aeroneb Go Nebuliser) 1 Each Each, EACH MC Q6H, (DME) Discontinued Reason: No Longer Taking Prescribed by: YAZAN BURDEN on 02/07/22914 Last Action: Discontinued Prednisone (Prednisone) 20 Mg Tab, 20 MG PO DAILY@0700 Discontinued Reason: No Longer Taking Prescribed by: YAZAN BURDEN on 02/07/22914 Last Action: Discontinued Past Hhjuuyk-Kpemym-Hrxrxf Hx Patient Social History Tobacco Use?: No Smoking Status: Former Smoker Use of E-Cig and/or Vaping dev: No Substance use?: No Alcohol Use?: No Pt feels they are or have been: No Immunizations Up To Date Date of Influenza Vaccine: Jul 13, 2020 First/Initial COVID19 Vaccinat: 10/19/20 Second COVID19 Vaccination Xavier: 11/18/20 Tetanus Booster (TDap): Less Than 5 Years Hepatitis A: No Hepatitis B: No Date of Pneumonia Vaccine: Sep 30, 2016 Seasonal Allergies Seasonal Allergies: No Current Status Advance Directives: No Communicates: Verbally Primary Language: Kinyarwanda Preferred Spoken Language: Kinyarwanda Is interpretation needed?: No Implanted or Applied Medical D: None Past Medical History Surgeries: Abdominal, Bladder Surgery, Gallbladder, Hysterectomy, Rectal, Tonsillectomy Asthma, COPD, Emphysema Currently Using CPAP: No Currently Using BIPAP: No 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, 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, 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 Sexually Transmitted Disease: No HIV/AIDS: No Gastroesophageal Reflux, Chronic Constipation, Hemorrhoids, Hiatal Hernia Arthritis, Chronic Back Pain Loss of Vision: Denies Hearing Impairment: Denies Anxiety, Depression Blood Disorders: No Family Medical History Abdominal aortic aneurysm 03 FATHER Alcoholism 03 FATHER Cancer 03 FATHER Cataract 03 MOTHER Chest pain 03 FATHER Congestive heart failure 03 FATHER Family history: Cardiovascular disease 03 FATHER 03 MOTHER Family history: Coronary thrombosis 03 MOTHER Family history: Diabetes mellitus 03 MOTHER Family history: Glaucoma 03 MOTHER Family history: Hypertension 03 MOTHER Family history: Osteoporosis 03 MOTHER Headache 03 FATHER 03 MOTHER 09 BROTHER 09 BROTHER 09 SISTER Heart disease 03 FATHER History of - respiratory disease 03 FATHER Kidney disease 03 MOTHER Myocardial infarction 03 FATHER Stroke Visual impairment 03 FATHER 03 MOTHER No Family History of: Jase's disease Aphasia Cancer of colon Congenital heart disease Cystic fibrosis Dementia Dysphagia Family history: Allergy Family history: Alzheimer's disease Family history: Arthritis Family history: Asthma Family history: Breast disease Family history: Gastrointestinal disease Family history: Thyroid disorder Hearing loss Hereditary disease History of - anemia History of - disorder History of drug abuse Human immunodeficiency virus (HIV) seropositivity Hypercholesterolemia Infertile Malignant neoplasm of lung Parkinson's disease Prostate cancer Psychotic disorder Seizure disorder Tuberculosis Heart Disease, Cancer, Diabetes, Hypertension, Other Conditions/Hx Review of Systems Constitutional: No chills, No dizziness, No fever EENTM: No ear pain, No blurred vision, No double vision, No eye pain Respiratory: No cough, No short of breath Cardiovascular: No chest pain, No palpitations Gastrointestinal: No abdominal pain, No constipation, No diarrhea Musculoskeletal: joint pain (rt hip); No joint swelling, No muscle stiffness, No muscle cramps Psychiatric/Neurological: Anxiety; Denies Headache, Denies Numbness Physical Exam Vital Signs Vital Signs - First Documented 08/05/23 13:18 Temp 36.6 Pulse 72 Resp 18 B/P (MAP) 171/103 (125) Pulse Ox 96 O2 Delivery Room Air Capillary Refill : Less Than 3 Seconds Height, Weight, BMI Height: 5'0.00" Weight: 130lbs. 0.0oz. 58.[address]wy; 20.77 BMI Method:Stated General Appearance: Mild Distress, Thin Eyes: Bilateral Eye Normal Inspection HEENT: PERRL/EOMI; No Photophobia, No Scleral Icterus (L), No Scleral Icterus (R) Neck: Normal Inspection, Non Tender Respiratory: Chest Non Tender, Lungs Clear, Normal Breath Sounds, No Accessory Muscle Use, No Respiratory Distress Cardiovascular: Regular Rate, Rhythm, No Edema, No Gallop, No Murmur, Normal Peripheral Pulses Gastrointestinal: Normal Bowel Sounds, No Organomegaly, No Pulsatile Mass, Non Tender, Soft; No Distended, No Guarding, No Rebound Extremity: Normal Capillary Refill, Normal Inspection, Normal Range of Motion (strength 5/5 b/l LEs), Non Tender, No Calf Tenderness Neurologic/Psychiatric: Alert, Oriented x3, No Motor/Sensory Deficits, Normal 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 Pryor on 08/06 -will monitor the pt post-op HTN -will monitor her BP and continue current treatment Hyponatremia -will continue to monitor the pt's status Clinical Quality Measures DVT/VTE Risk/Contraindication: Contraindications-Pharm: Other *list below* Other: OR PAYTON HERNANDEZ DO 08/06/231823: History of Present Illness History of Present Illness Reason for visit/HPI CC: Right hip fracture found on CT scan with negative xrays x 2 HPI: This is an 83[facility] patient of [facility] who presented following a right hip fracture repair uncomplicated by Dr Pryor. I have reviewed her meds and labs and restart home meds. Family is very anxious overall about the patient so tried to reassure. Date Seen by a Provider: Aug 06, 2023 Time Seen by a Provider: 11:00 Allergies and Home Medications Allergies Coded Allergies: Iodinated Contrast Media (Verified Allergy, Intermediate, Hives, 02/03/22) azithromycin (Verified Allergy, Unknown, 02/03/22) Uncoded Allergies: ERYTHROMYCIN (Allergy, Unknown, 01/07/17) Patient Home Medication List Home Medication List Reviewed: Yes Alprazolam (Alprazolam) 1 Mg Tablet, 1 MG PO BID, (Reported) Entered as Reported by: CORONA CASTANON on 07/15/17 1342 Last Action: Continued Aspirin (Aspirin EC) 81 Mg Tablet.dr, 81 MG PO DAILY, (Reported) Entered as Reported by: CORONA CASTANON on 07/15/171344 Last Action: Continued Cholecalciferol (Vitamin D3) (Vitamin D3) 50 Mcg (2000 Unit) Capsule, 50 MCG PO DAILY, (Reported) Entered as Reported by: FILIPPO FERNÁNDEZ on 02/04/221152 Last Action: Converted Escitalopram Oxalate (Escitalopram Oxalate) 20 Mg Tablet, 20 MG PO HS, (Reported) Entered as Reported by: FILIPPO FERNÁNDEZ on 02/04/221152 Last Action: Held Fluticasone Propionate (Flonase Allergy Relief) 50 Mcg/Actuation [place].susp, 1 SPRAY NSEACH BID PRN for CONGESTION, (Reported) Entered as Reported by: FILIPPO FERNÁNDEZ on 08/06/231546 Last Action: Converted Metoprolol Tartrate (Metoprolol Tartrate) 25 Mg Tablet, 25 MG PO BID, (Reported) Entered as Reported by: FILIPPO FERNÁNDEZ on 08/06/231546 Last Action: Continued Omeprazole (Omeprazole) 20 Mg Capsule.dr, 20 MG PO BID, (Reported) Entered as Reported by: CORONA CASTANON on 07/15/172 Last Action: Continued Wheat Dextrin (Benefiber) 3 Gram/3.5 Gram Powd.pack, 1 EACH PO DAILY PRN for CONSTIPATION, (Reported) Entered as Reported by: FILIPPO FERNÁNDEZ on 08/06/231546 Last Action: Converted Zinc Gluconate (Zinc) 50 Mg Tablet, 50 MG PO DAILY, (Reported) Entered as Reported by: FILIPPO FERNÁNDEZ on 08/06/231546 Last Action: Converted Discontinued Medications Albuterol Sulfate (Albuterol Sulfate) 2.5 Mg/3 Ml (0.083 %) Vial.neb, 2.5 MG INH RTQID Discontinued Reason: No Longer Taking Prescribed by: YAZAN BURDEN on 02/07/22914 Last Action: Discontinued Amoxicillin/Potassium Clav (Amox Tr-K Clv 875-125 mg Tab) 875 Mg-125 Mg Tablet, 1 EACH PO BID Discontinued Reason: No Longer Taking Prescribed by: YAZAN BURDEN on 02/07/22914 Last Action: Discontinued Dicyclomine HCl (Dicyclomine HCl) 10 Mg Capsule, 10 MG PO BID, (Reported) Discontinued Reason: No Longer Taking Entered as Reported by: PHILIP GALVAN on 02/03/22 1623 Last Action: Discontinued Fluconazole (Diflucan) 150 Mg Tablet, 150 MG PO DAILY Discontinued Reason: No Longer Taking Prescribed by: YAZAN BURDEN on 02/07/22914 Last Action: Discontinued Fluticasone Propionate (Fluticasone Propionate) 50 Mcg/Actuation [place].susp, 0 SPRAY NS DAILY Discontinued Reason: No Longer Taking Prescribed by: YAZAN BURDEN on 02/07/22914 Last Action: Discontinued Guaifenesin/Dextromethorphan (Guaifenesin Dm Syrup) 100 Mg-10 Mg/5 Ml Syrup, 10 ML PO Q6H PRN for COUGH Discontinued Reason: No Longer Taking Prescribed by: YAZAN BURDEN on 02/07/22914 Last Action: Discontinued Lactobacillus Acidophilus (Acidophilus Lactobacilli) 500 Million Cell Capsule, 1 EACH PO TID Discontinued Reason: No Longer Taking Prescribed by: YAZAN BURDEN on 02/07/22914 Last Action: Discontinued Metoprolol Tartrate (Metoprolol Tartrate) 50 Mg Tablet, 25 MG PO BID, (Reported) Discontinued Reason: No Longer Taking Entered as Reported by: CORONA CASTANON on 07/15/17 1342 Last Action: Discontinued Nebulizer (Aeroneb Go Nebuliser) 1 Each Each, EACH MC Q6H, (DME) Discontinued Reason: No Longer Taking Prescribed by: YAZAN BURDEN on 02/07/22914 Last Action: Discontinued Prednisone (Prednisone) 20 Mg Tab, 20 MG PO DAILY@0700 Discontinued Reason: No Longer Taking Prescribed by: YAZAN BURDEN on 02/07/22914 Last Action: Discontinued Past Qnshifh-Uihcit-Nonwcj Hx Patient Social History Marrital Status: Employed/Student: part-time employed Smoking Status: Former Smoker Past Medical History COPD Hypertension Family Medical History Abdominal aortic aneurysm 03 FATHER Alcoholism 03 FATHER Cancer 03 FATHER Cataract 03 MOTHER Chest pain 03 FATHER Congestive heart failure 03 FATHER Family history: Cardiovascular disease 03 FATHER 03 MOTHER Family history: Coronary thrombosis 03 MOTHER Family history: Diabetes mellitus 03 MOTHER Family history: Glaucoma 03 MOTHER Family history: Hypertension 03 MOTHER Family history: Osteoporosis 03 MOTHER Headache 03 FATHER 03 MOTHER 09 BROTHER 09 BROTHER 09 SISTER Heart disease 03 FATHER History of - respiratory disease 03 FATHER Kidney disease 03 MOTHER Myocardial infarction 03 FATHER Stroke Visual impairment 03 FATHER 03 MOTHER No Family History of: Jase's disease Aphasia Cancer of colon Congenital heart disease Cystic fibrosis Dementia Dysphagia Family history: Allergy Family history: Alzheimer's disease Family history: Arthritis Family history: Asthma Family history: Breast disease Family history: Gastrointestinal disease Family history: Thyroid disorder Hearing loss Hereditary disease History of - anemia History of - disorder History of drug abuse Human immunodeficiency virus (HIV) seropositivity Hypercholesterolemia Infertile Malignant neoplasm of lung Parkinson's disease Prostate cancer Psychotic disorder Seizure disorder Tuberculosis Review of Systems Constitutional: see HPI Musculoskeletal: joint pain (rt hip) Physical Exam General Appearance: No Apparent Distress, WD/WN, Chronically ill Eyes: Bilateral Eye Normal Inspection, Bilateral Eye PERRL, Bilateral Eye EOMI HEENT: PERRL/EOMI, Normal ENT Inspection, Pharynx Normal Neck: Full Range of Motion, Normal Inspection, Non Tender, Supple, Carotid Bruit Respiratory: Chest Non Tender, Lungs Clear, Normal Breath Sounds, No Accessory Muscle Use, No Respiratory Distress, Decreased Breath Sounds Cardiovascular: Regular Rate, Rhythm, No Edema, No Gallop, No JVD, No Murmur, Normal Peripheral Pulses Gastrointestinal: Normal Bowel Sounds, No Organomegaly, No Pulsatile Mass, Non Tender, Soft Back: Normal Inspection, No CVA Tenderness, No Vertebral Tenderness Extremity: Normal Capillary Refill, Normal Inspection, Normal Range of Motion (decreased right leg), Non Tender, No Calf Tenderness, No Pedal Edema Neurologic/Psychiatric: Alert, Oriented x3, No Motor/Sensory Deficits, Normal Mood/Affect Skin: Normal Color, Warm/Dry Lymphatic: No Adenopathy Assessment/Plan Assessment and Plan Assessment: Right hip fracture s/p repair uncomplicated by Dr Pryor HTN COPD Hyponatremia Plan: Pain control PT OT Admission Diagnosis Admission Status: Inpatient Order (span 2 midnights) Reason for Inpatient Admission: right hip fx Supervisory-Addendum Brief Verification & Attestation Participated in pt care: history, MDM, physical Personally performed: exam, history, MDM, supervision of care Care discussed with: Medical Student Procedures: n/a Results interpretation: Verified all documentation Verification and Attestation of Medical Student E/M Service A medical student performed and documented this service in my presence. I reviewed and verified all information documented by the medical student and made modifications to such information, when appropriate. I personally performed the physical exam and medical decision making. Payton Hernandez, Aug 06, 2023,18:24 HILARY CABRERA Aug 06, 2023 09:37 PAYTON HERNANDEZ DO Aug 06, 2023 18:24
[2023-08-06] MEDS ORDERED: BUPIVACAINE 0.5% 30 ML VIAL ONE ×2 (10:02→11:56)
[2023-08-06] MEDS ORDERED: ceFAZolin INJECTION 2,000 MG ONE (10:41)
[2023-08-06] MEDS ORDERED: fentaNYL INJECTION 100 MCG/2 ML VIAL ONE (10:51)
[2023-08-06] MEDS ORDERED: ceFAZolin INJECTION 2,000 MG in NS (IVPB) 50 ML 50 ML IV NR (11:15)
[2023-08-06] MEDS ORDERED: MIDAZOLAM INJ 2 MG/2 ML VIAL ONE (12:26)
--- NOTE | 2023-08-06 14:47 | Physical Therapy Evaluation ---
PT Evaluation-General Medical Diagnosis Admission Date Aug 05, 2023 at 15:59 Medical Diagnosis: Right IM Nail Onset Date: Aug 06, 2023 Therapy Diagnosis Therapy Diagnosis: Gait deficit Height/Weight Height (Feet): 5 Height (Inches): 0.00 Weight (Pounds): 130 Weight (Ounces): 0.0 Precautions Precautions/Isolations: Fall Prevention, Standard Precautions Weight Bear Status Right Lower Extremity: Right Partial Weight Bearing Left Lower Extremity: Left Full Weight Bearing Referral Physician: Dr. Pryor Reason for Referral: Evaluation/Treatment Social History Home: Single Level Current Living Status: Spouse Entry Into Home: Stairs With Railing PT Steps Into Home: 4 Prior Prior Level of Function SCALE: Activities may be completed with or without assistive devices. 0-Ggofbokosk-oxkclya completes the activity by him/herself with no assistance from a helper. 5-Set-up or Clean-up Assistance-helper sets up or cleans up; patient completes activity. [place] assists only prior to or following the activity. 4-Supervision or Touching Assistance-helper provides verbal cues and/or touching/steadying and/or contact guard assistance as patient completes activity. Assistance may be provided throughout the activity or intermittently. 3-Partial/Moderate Assistance-helper does LESS THAN HALF the effort. [place] lifts, holds or supports trunk or limbs, but provides less than half the effort. 2-Substantial/Maximal Assistance-helper does MORE THAN HALF the effort. [place] lifts or holds trunk or limbs and provides more than half the effort. 9-Hjbkvjpcb-mvcwci does ALL the effort. Patient does none of the effort to complete the activity. Or, the assistance of 2 or more helpers is required for the patient to complete the activity. If activity was not attempted, code reason: 7-Patient Refused. 9-Not Applicable-not attempted and the patient did not perform the activity before the current illness, exacerbation or injury. 10-Not Attempted due to Environmental Limitations-(lack of equipment, weather restraints, etc.). 88-Not Attempted due to Medical Conditions or Safety Concerns. Bed Mobility: 6 Transfers (B,C,W/C): 6 Gait: 6 Stairs: 6 Indoor Mobility (Ambulation): Independent Stairs: Independent Prior Devices Use: None Has FWW and power scooter at home that doesn't run PT Evaluation-Current Subjective Patient lying supine in bed upon PT arrival, agreeable to treatment. Objective Patient Orientation: Person, Place, Situation Attachments: Prasad Catheter, IV ROM/Strength ROM Lower Extremities Left LE WFLs all planes. Right LE limited all planes Strength Lower Extremities Unable to assess at this time due to spinal block. Sensory Vision: Functional Hearing: Functional Sensation Right Lower Extremit: Intact Sensation Left Lower Extremity: Intact Transfers Roll Left to Right (QC): 2 Sit to Lying (QC): 2 Lying to Sitting/Side of Bed(Q: 2 Sit to Stand (QC): 1 Chair/Yzw-oj-Kwvzh Xfer(QC): 1 Gait Does the Patient Walk?: No and Walking Goal IS indicated Mode of Locomotion: Walk Anticipated Mode of Locomotion: Walk Balance Sitting Static: Fair Sitting Dynamic: Fair Standing Static: Poor Standing Dynamic: Poor Assessment/Needs Patient requires max to total A for all bed mobility and transfers. Patient performs sit to stand with total A and SPT to the chair. Patient in chair post treatment with all needs met, nursing notified, call light in reach and family in the room. Rehab Potential: Fair PT Navy Material Inspector Goals Fpc Goals PT Fpc Goals Time Frame: Aug 28, 2023 Roll Left & Right (QC): 4 Sit to Lying (QC): 4 Lying-Sitting on Side/Bed(QC): 4 Sit to Stand (QC): 4 Chair/Sfp-jq-Ksjza Xfer(QC): 4 Toilet Transfer (QC): 4 Car Transfer (QC): 4 Does the Patient Walk: Yes Walk 10 feet (QC): 4 Walk 50ft with 2 Turns (QC): 3 Walk 150 ft (QC): 3 1 Step (curb) (QC): 3 4 Steps (QC): 3 12 Steps (QC): 3 PT Plan Problem List Problem List: Activity Tolerance, Functional Strength, Safety, Balance, Gait, Transfer, Bed Mobility, ROM Treatment/Plan Treatment Plan: Continue Plan of Care Treatment Plan: Bed Mobility, Education, Functional Activity Bel, Functional Strength, Group Therapy, Gait, Safety, Therapeutic Exercise, Transfers Treatment Duration: Aug 28, 2023 Frequency: 11 times per week Estimated Hrs Per Day: .25 hour per day Patient and/or Family Agrees t: Yes Safety Risks/Education Patient Education: Transfer Techniques Teaching Recipient: Patient Teaching Methods: Demonstration, Discussion Response to Teaching: Reinforcement Needed Time Time In: 1411 Time Out: 1435 DATE: Aug 06, 2023 Total Billed Treatment Time: 24 Total Billed Treatment Visit, PATRICIA HICKS JOHN A PT Aug 06, 2023 14:47
[2023-08-06] MEDS ORDERED: WHEA98PO PO (15:47)
[2023-08-06] MEDS ORDERED: ZINC50TA11 PO (15:47)
[2023-08-06] MEDS ORDERED: METO-333 PO (15:47)
[2023-08-06] MEDS ORDERED: FLUT9.9S NSEACH (15:47)
[2023-08-06] MEDS ORDERED: WHEAT DEXTRIN PO PRN (16:15)
[2023-08-06] MEDS ORDERED: FLUTICASONE NASAL SPRAY (120 SPRAYS) NS PRN (16:15)
[2023-08-06] MEDS ORDERED: NON-FORMULARY MEDICATION 1 EA EA (Fluticasone Propionate (Flonase Allergy Relief) 1 SPRAY) NSEACH PRN (16:15)
[2023-08-06] MEDS ORDERED: PSYLLIUM POWDER PACKET PO PRN (16:15)
[2023-08-06] MEDS ORDERED: ALUMINUM HYDROXIDE PO PRN (16:45)
[2023-08-06] MEDS ORDERED: MAGNESIUM CARBONATE PO PRN (16:45)
[2023-08-06] MEDS: ceFAZolin INJECTION 2,000 MG in NS (IVPB) 50 ML 50 ML IV SCH (17:22)
[2023-08-06] MEDS: ALPRAZolam 1 MG TABLET PO SCH (19:51)
[2023-08-06] MEDS: meTOprolol TARTRATE (IR) 25 MG TABLET PO SCH (19:53)
[2023-08-06] MEDS: PANTOPRAZOLE 20 MG TABLET PO SCH (19:53)
[2023-08-06] MEDS: MELATONIN 3 MG TABLET PO PRN (19:53)
[2023-08-06] MEDS: HYDROmorphone INJECTION 2 MG/ML VIAL IV PRN (19:53)
[2023-08-06] MEDS ORDERED: OMEPRAZOLE 20 MG CAPSULE (NON-FORMULARY) PO SCH (21:00)
--- NOTE | 2023-08-06 21:54 | OPERATIVE REPORT ---
DATE OF SERVICE: 08/06/2023 PREOPERATIVE DIAGNOSIS: Closed displaced right intertrochanteric femur fracture. POSTOPERATIVE DIAGNOSIS: Closed displaced right intertrochanteric femur fracture. PROCEDURE: Right hip intramedullary nail. SURGEON: Sanjay Arechiga MD BOX BLANK MACHINE FEEDER: Quinton Mccormick, who assisted throughout the procedure and closed the incisions. ANESTHESIA: Spinal by Sommer Gong CRNA. ESTIMATED BLOOD LOSS: Minimal. DRAINS: None. COMPLICATIONS: None. POSTOPERATIVE PLAN: Weightbearing as tolerated. The patient was transferred to recovery room awake and stable condition. MATERIALS: TFN size 10 nail with 85 mm blade. STATEMENT OF MEDICAL NECESSITY: The patient is an 83-year-old female who fell almost 3 weeks ago and has had right hip pain since that point. Radiographs were initially negative, however, she obtained, a CT scan in the emergency department yesterday and was found to have an intertrochanteric femur fracture. The patient and her family were counseled regarding treatment options and elected to proceed with surgical intervention. DESCRIPTION OF PROCEDURE: After risks and benefits of the procedure were discussed and questions were answered, informed consent was signed and placed on chart. The operative site was confirmed in the preoperative holding area initialed by surgeon. The patient was then transferred to the operating room. Spinal anesthetic were obtained, the patient was carefully placed on the fracture table. Timeout was called, confirming the operative site. Gentle traction was applied. Fluoroscopy in the AP lateral planes revealed anatomic alignment of the proximal femur. The right hip and lower extremity were prepped and draped in the usual sterile fashion. A longitudinal incision was made from the greater trochanter extending proximally. The guidewire was passed into the femoral canal. This was found to be in excellent position in the AP and lateral planes. This was then overdrilled proximally and a 10 mm short nail was placed through limited incision distally. The femoral head guidewire was passed and found to be in excellent position in both the AP and lateral planes. This was then overdrilled through the lateral cortex and the blade was placed, 85 mm in length, which had excellent purchase. Fluoroscopy in the AP and lateral planes revealed well aligned fracture with well placed hardware. This was then locked proximally and a locking screw was placed distally through the same distal incision and fluoroscopy revealed well placed hardware. The wounds were copiously irrigated. The iliotibial band was closed in a aiaxgf-tj-moxsx interrupted fashion using #1 Vicryl. The wound was further irrigated, 3-0 Vicryl was used to reapproximate subcutaneous tissue, barb used on the skin. The incisions were infiltrated with plain Marcaine. A soft dressing was applied. The patient was transported to the recovery room awake and in stable condition. Job ID: [id number] DocumentID: [id number] Dictated Date: 08/06/2023 12:03:09 Financial Underwriter Date: 08/06/2023 21:52:00 Dictated By: SANJAY ARECHIGA MD
[2023-08-06] MEDS: fentaNYL INJECTION 100 MCG/2 ML VIAL IVP PRN (22:39)
[2023-08-07] MEDS: ceFAZolin INJECTION 2,000 MG in NS (IVPB) 50 ML 50 ML IV SCH (00:55)
[2023-08-07] MEDS: fentaNYL INJECTION 100 MCG/2 ML VIAL IVP PRN ×2 (02:16→09:51)
[2023-08-07] MEDS: NS IV 1000 ML 1,000 ML IV SCH ×2 (02:16→09:03)
[2023-08-07 03:24] VITALS: BP 161/97
[2023-08-07 06:03] LABS: BASOPHILS % (AUTO) 0 % (0-10); EOSINOPHILS # (AUTO) 0.3 10^3/uL (0.0-0.3); EOSINOPHILS % (AUTO) 6 % (0-10); HEMATOCRIT 33 % (35-52); HEMOGLOBIN 10.7 g/dL (11.5-16.0); LYMPHOCYTES # (AUTO) 0.8 10^3/uL (1.0-4.0); LYMPHOCYTES % (AUTO) 15 % (12-44); MEAN CORPUSCULAR HEMOGLOBIN 29 pg (25-34); MEAN CORPUSCULAR HGB CONC 33 g/dL (32-36); MEAN CORPUSCULAR VOLUME 89 fL (80-99); MEAN PLATELET VOLUME 9.5 fL (9.0-12.2); MONOCYTES # (AUTO) 0.4 10^3/uL (0.0-1.0); MONOCYTES % (AUTO) 9 % (0-12); NEUTROPHILS # (AUTO) 3.6 10^3/uL (1.8-7.8); NEUTROPHILS % (AUTO) 69 % (42-75); PLATELET COUNT 193 10^3/uL (130-400); WHITE BLOOD COUNT 5.2 10^3/uL (4.3-11.0)
[2023-08-07 06:14] LABS: POTASSIUM 3.9 MMOL/L (3.6-5.0)
[2023-08-07 06:15] LABS: CALCIUM 8.3 MG/DL (8.5-10.1)
[2023-08-07 06:16] LABS: TOTAL PROTEIN 6.4 GM/DL (6.4-8.2)
[2023-08-07 06:18] LABS: BILIRUBIN,TOTAL 0.6 MG/DL (0.1-1.0)
[2023-08-07 06:20] LABS: CREATININE SERUM 0.59 MG/DL (0.60-1.30)
[2023-08-07 07:26] VITALS: BP 180/97
--- NOTE | 2023-08-07 07:42 | Progress Note ---
Standard Progress Note Progress Notes/Assess & Plan Date Seen by a Provider: Aug 07, 2023 Time Seen by a Provider: 07:34 Progress/Assessment & Plan no complaints Laboratory Tests Test 08/07/23 05:58 Range/Units White Blood Count 5.2 4.3-11.0 10^3/uL Red Blood Count 3.69 L 3.80-5.11 10^6/uL Hemoglobin 10.7 L 11.5-16.0 g/dL Hematocrit 33 L 35-52 % Mean Corpuscular Volume 89 80-99 fL Mean Corpuscular Hemoglobin 29 25-34 pg Mean Corpuscular Hemoglobin Concent 33 32-36 g/dL Red Cell Distribution Width 14.0 10.0-14.5 % Platelet Count 193 130-400 10^3/uL Mean Platelet Volume 9.5 9.0-12.2 fL Immature Granulocyte % (Auto) 0 % Neutrophils (%) (Auto) 69 42-75 % Lymphocytes (%) (Auto) 15 12-44 % Monocytes (%) (Auto) 9 0-12 % Eosinophils (%) (Auto) 6 0-10 % Basophils (%) (Auto) 0 0-10 % Neutrophils # (Auto) 3.6 1.8-7.8 10^3/uL Lymphocytes # (Auto) 0.8 L 1.0-4.0 10^3/uL Monocytes # (Auto) 0.4 0.0-1.0 10^3/uL Eosinophils # (Auto) 0.3 0.0-0.3 10^3/uL Basophils # (Auto) 0.0 0.0-0.1 10^3/uL Immature Granulocyte # (Auto) 0.0 0.0-0.1 10^3/uL Sodium Level 131 L 135-145 MMOL/L Potassium Level 3.9 3.6-5.0 MMOL/L Chloride Level 97 L 98-107 MMOL/L Carbon Dioxide Level 27 21-32 MMOL/L Anion Gap 7 5-14 MMOL/L Blood Urea Nitrogen 6 L 7-18 MG/DL Creatinine 0.59 L 0.60-1.30 MG/DL Estimat Glomerular Filtration Rate 89 BUN/Creatinine Ratio 10 Glucose Level 96 70-105 MG/DL Calcium Level 8.3 L 8.5-10.1 MG/DL Corrected Calcium 9.1 8.5-10.1 MG/DL Total Bilirubin 0.6 0.1-1.0 MG/DL Aspartate Amino Transf (AST/SGOT) 23 5-34 U/L Alanine Aminotransferase (ALT/SGPT) 7 0-55 U/L Alkaline Phosphatase 156 H 40-136 U/L Total Protein 6.4 6.4-8.2 GM/DL Albumin 3.0 L 3.2-4.5 GM/DL Vital Signs Date Time Temp Pulse Resp B/P (MAP) Pulse Ox O2 Delivery O2 Flow Rate FiO2 08/07/23 07:26 36.1 85 15 180/97 (124) 90 Room Air 08/07/23 03:24 36.4 73 16 161/97 (118) 97 Room Air 0.00 0.00 08/06/23 23:05 36.5 94 16 164/89 (114) 94 Room Air 0.00 0.00 08/06/23 21:39 94 Room Air 08/06/23 20:00 Room Air 08/06/23 19:59 36.7 90 16 189/92 (124) 94 Room Air 08/06/23 16:28 36.4 86 18 151/80 (103) 95 Room Air 08/06/23 13:16 36.5 76 16 121/86 (98) 98 Room Air 08/06/23 12:45 Room Air 08/06/23 12:40 36.8 16 134/83 (100) 96 Room Air 08/06/23 12:30 16 134/94 (107) 96 Room Air 08/06/23 12:30 Room Air 08/06/23 12:20 18 112/81 (91) 100 OxyMask 2.00 08/06/23 12:15 OxyMask 2.00 08/06/23 12:10 18 95/88 (90) 100 OxyMask 4.00 08/06/23 12:02 OxyMask 4.00 08/06/23 12:02 37.0 20 111/65 (80) 100 OxyMask 4.00 08/06/23 08:35 154/92 (112) 08/06/23 08:00 Room Air l I & O 08/07/23 07:00 Intake Total 3675 ml Output Total 2160 ml Balance 1515 ml RLE--dressing intact intact DF and PF of toes and ankle sensation intact throughout pulses equal s/p R hip IM ronny mobilize--WBAT JUDITH ARECHIGA MD Aug 07, 2023 07:42
[2023-08-07] MEDS: PANTOPRAZOLE 20 MG TABLET PO SCH ×2 (08:19→19:51)
[2023-08-07] MEDS: ENOXAPARIN 40 MG/0.4 ML SYRINGE SC SCH (08:19)
[2023-08-07] MEDS: ZINC SULFATE 220 MG CAPSULE PO SCH (08:19)
[2023-08-07] MEDS: ALPRAZolam 1 MG TABLET PO SCH ×2 (08:19→19:51)
[2023-08-07] MEDS: SENNOSIDES 8.6 MG TABLET PO SCH ×2 (08:19→19:51)
[2023-08-07] MEDS: VITAMIN D3 25 MCG (1,000 UNITS) TABLET PO SCH (08:19)
[2023-08-07] MEDS: meTOprolol TARTRATE (IR) 25 MG TABLET PO SCH ×2 (08:19→19:51)
[2023-08-07] MEDS: DOCUSATE SODIUM 100 MG CAPSULE PO SCH ×2 (08:19→19:51)
[2023-08-07] MEDS: ASPIRIN enteric coated 81MG TABLET PO SCH (08:19)
[2023-08-07] MEDS ORDERED: ZINC GLUCONATE 50 MG PO SCH (09:00)
[2023-08-07] MEDS ORDERED: NON-FORMULARY MEDICATION 1 EA EA (Cholecalciferol (Vitamin D3) (Vitamin D3) 50 MCG) PO SCH (09:00)
[2023-08-07] MEDS: RT-Ipratropium/Albuterol NEB 3 ML VIAL INH SCH ×2 (09:20→20:46)
--- NOTE | 2023-08-07 09:21 | Progress Note ---
HILARY CABRERA 08/07/23 0920: Subjective Date Seen by a Provider: Aug 07, 2023 Subjective/Events-last exam Pt states that she is feeling a lot better after the surgery. She expressed feel ings of relief that she decided to go through with the surgery and not transfer to a different hospital. She was weight bearing last night. Moving from her bed to her chair with ease. She reported no pain during these movements. Currently she is in pain and is requesting pain medication. Reports lack of thorough sleep last night due to the positioning she was in. Periodically napping this morning. Review of Systems General: No Chills, No Night Sweats HEENT: No Head Aches, No Visual Changes, No Eye Pain, No Ear Pain Pulmonary: No Cough Cardiovascular: No: Chest Pain, Palpitations Gastrointestinal: No: Nausea, Vomiting, Abdominal Pain, Diarrhea, Constipation Genitourinary: No Frequency, No Incontinence Neurological: No: Weakness, Numbness, Incoordination, Change in speech, Confusion Objective Exam Last Set of Vital Signs Vital Signs Date Time Temp Pulse Resp B/P (MAP) Pulse Ox O2 Delivery O2 Flow Rate FiO2 08/07/23 07:26 36.1 85 15 180/97 (124) 90 Room Air 08/07/23 03:24 0.00 0.00 Capillary Refill : Less Than 3 Seconds I&O Intake and Output 08/07/23 00:00 Intake Total 3525 ml Output Total 2560 ml Balance 965 ml Intake Oral 600 ml IV Total 2925 ml Output Urine Total 2560 ml General: Alert, Oriented X3, Cooperative, No Acute Distress HEENT: PERRLA Neck: No JVD Lungs: Clear to Auscultation, Normal Air Movement Heart: Regular Rate, No Murmurs Abdomen: Normal Bowel Sounds, Soft, No Tenderness, No Hepatosplenomegaly Extremities: No Clubbing, No Cyanosis, Normal Pulses (UE and LE b/l), No Tenderness/Swelling Neuro: Normal Speech, Sensation Intact, Cranial Nerves 3-12 NL, Reflexes 2+, Other (Strength of LE was 4/5 on right side and 5/5 on left side. UE was 5/5 b/l.) Psych/Mental Status: Mental Status NL, Mood NL, Other (Affect: positive, no irritability) Results Lab Laboratory Tests 08/07/23 05:58: White Blood Count 5.2, Red Blood Count 3.69L, Hemoglobin 10.7L, Hematocrit 33L, Mean Corpuscular Volume 89, Mean Corpuscular Hemoglobin 29, Mean Corpuscular Hemoglobin Concent 33, Red Cell Distribution Width 14.0, Platelet Count 193, Mean Platelet Volume 9.5, Immature Granulocyte % (Auto) 0, Neutrophils (%) (Auto) 69, Lymphocytes (%) (Auto) 15, Monocytes (%) (Auto) 9, Eosinophils (%) (Auto) 6, Basophils (%) (Auto) 0, Neutrophils # (Auto) 3.6, Lymphocytes # (Auto) 0.8L, Monocytes # (Auto) 0.4, Eosinophils # (Auto) 0.3, Basophils # (Auto) 0.0, Immature Granulocyte # (Auto) 0.0, Sodium Level 131L, Potassium Level 3.9, Chloride Level 97L, Carbon Dioxide Level 27, Anion Gap 7, Blood Urea Nitrogen 6L , Creatinine 0.59L, Estimat Glomerular Filtration Rate 89, BUN/Creatinine Ratio 10, Glucose Level 96, Calcium Level 8.3L, Corrected Calcium 9.1, Total Bilirubin 0.6, Aspartate Amino Transf (AST/SGOT) 23, Alanine Aminotransferase (ALT/SGPT) 7, Alkaline Phosphatase 156H, Total Protein 6.4, Albumin 3.0L Microbiology 08/06/23 MRSA Screen - Final, Complete MRSA not isolated Assessment/Plan Assessment/Plan Assess & Plan/Chief Complaint Assessment: Non-displaced intertrochanteric fracture in proximal right femur HTN Hyponatremia Plan: Non-displaced intertrochanteric fracture in proximal right femur -Right hip intramedullary nail performed by Dr. Pryor on 08/06 -continue to monitor pain -will discuss with pt rehab process HTN -increased BP recordings this morning. Will determine if dosage or medications need to be changed Hyponatremia -will continue to monitor -this morning reading was 131. 08/06 it was 133. 08/05 it was 130. Clinical Quality Measures Admission Status Admission Dx Assessment: Non-displaced intertrochanteric fracture in proximal right femur HTN Hyponatremia Plan: Non-displaced intertrochanteric fracture in proximal right femur -Right hip intramedullary nail performed by Dr. Pryor on 08/06 -will monitor the pt post-op HTN -will monitor her BP and continue current treatment Hyponatremia -will continue to monitor the pt's status DVT/VTE Risk/Contraindication: Contraindications-Pharm: Other *list below* Other: OR PAYTON HERNANDEZ DO 08/08/23 0501: Subjective Time Seen by a Provider: 11:00 Subjective/Events-last exam Patient doing a lot better Pain is controlled Awaiting to go to [facility] Objective Exam General: Alert, Oriented X3, Cooperative, No Acute Distress Lungs: Clear to Auscultation, Normal Air Movement Heart: Regular Rate, Normal S1, Normal S2, No Murmurs Psych/Mental Status: Mental Status NL, Mood NL Assessment/Plan Assessment/Plan Assess & Plan/Chief Complaint Await [facility] Supervisory-Addendum Brief Verification & Attestation Participated in pt care: history, MDM, physical Personally performed: exam, history, MDM, supervision of care Care discussed with: Medical Student Procedures: n/a Results interpretation: Verified all documentation Verification and Attestation of Medical Student E/M Service A medical student performed and documented this service in my presence. I reviewed and verified all information documented by the medical student and made modifications to such information, when appropriate. I personally performed the physical exam and medical decision making. Payton Hernandez, Aug 08, 2023,05:01 HILARY CABRERA Aug 07, 2023 09:20 PAYTON HERNANDEZ DO Aug 08, 2023 05:01
--- NOTE | 2023-08-07 10:10 | Physical Therapy Daily Note ---
PT Daily Note-Current Subjective Patient agrees to PT. No c/o at this time. Pain Section J - Health Conditions 1. Rarely or not at all 2. Occasionally 3. Frequently 4. Almost constantly 8. Unable to answer Pain Effect on Sleep: 1 Pain Interference with Therapy: 1 Pain Interference w/Day-to-Day: 1 Transfers SCALE: Activities may be completed with or without assistive devices. 3-Tgztpothyh-tlyheny completes the activity by him/herself with no assistance from a helper. 5-Set-up or Clean-up Assistance-helper sets up or cleans up; patient completes activity. [place] assists only prior to or following the activity. 4-Supervision or Touching Assistance-helper provides verbal cues and/or touching/steadying and/or contact guard assistance as patient completes activity. Assistance may be provided throughout the activity or intermittently. 3-Partial/Moderate Assistance-helper does LESS THAN HALF the effort. [place] lifts, holds or supports trunk or limbs, but provides less than half the effort. 2-Substantial/Maximal Assistance-helper does MORE THAN HALF the effort. [place] lifts or holds trunk or limbs and provides more than half the effort. 0-Cemrzuuma-tfjdjw does ALL the effort. Patient does none of the effort to complete the activity. Or, the assistance of 2 or more helpers is required for the patient to complete the activity. If activity was not attempted, code reason: 7-Patient Refused. 9-Not Applicable-not attempted and the patient did not perform the activity before the current illness, exacerbation or injury. 10-Not Attempted due to Environmental Limitations-(lack of equipment, weather restraints, etc.). 88-Not Attempted due to Medical Conditions or Safety Concerns. Lying to Sitting/Side of Bed(Q: 4 Sit to Stand (QC): 4 Chair/Sji-te-Ffkem Xfer(QC): 4 Toilet Transfer (QC): 4 Weight Bearing Right Lower Extremity: Right Partial Weight Bearing Left Lower Extremity: Left Full Weight Bearing Gait Training Distance: 15' x 2 Walk 10 feet (QC): 4 Gait Assistive Device: FWW able to maintain PWB R with short distances Exercises Seated Therapy Exercises: Ankle pumps, Long arc quads, Hip flexion Seated Reps: 15 Assessment Patient up in recliner with needs met. Patient able to comply with PWB R LE with short distances. Continue to increase activity as tolerated by patient. PT Care Home Goals Care Home Goals PT Care Home Goals Time Frame: Aug 28, 2023 Roll Left & Right (QC): 4 Sit to Lying (QC): 4 Lying-Sitting on Side/Bed(QC): 4 Sit to Stand (QC): 4 Chair/Rqj-gs-Wibzp Xfer(QC): 4 Toilet Transfer (QC): 4 Car Transfer (QC): 4 Does the Patient Walk: Yes Walk 10 feet (QC): 4 Walk 50ft with 2 Turns (QC): 3 Walk 150 ft (QC): 3 1 Step (curb) (QC): 3 4 Steps (QC): 3 12 Steps (QC): 3 PT Plan Treatment/Plan Treatment Plan: Continue Plan of Care Treatment Plan: Bed Mobility, Education, Functional Activity Bel, Functional Strength, Group Therapy, Gait, Safety, Therapeutic Exercise, Transfers Treatment Duration: Aug 28, 2023 Frequency: 11 times per week Estimated Hrs Per Day: .25 hour per day Patient and/or Family Agrees t: Yes Time Time In: 840 Time Out: 856 DATE: Aug 07, 2023 Total Billed Treatment Time: 16 Total Billed Treatment 1 visit GT 16 min ANKITA FLOR PT Aug 07, 2023 10:10
[2023-08-07] MEDS ORDERED: amLODIPine 5 MG TABLET PO NR (11:00)
[2023-08-07 11:19] VITALS: BP 177/93
[2023-08-07] MEDS: oxyCODONE IMMEDIATE RELEASE 5 MG TABLET PO PRN ×2 (11:36→19:51)
--- NOTE | 2023-08-07 13:10 | Physical Therapy Daily Note ---
PT Daily Note-Current Subjective Patient reports she is tired and agrees to exercises. Pain Section J - Health Conditions 1. Rarely or not at all 2. Occasionally 3. Frequently 4. Almost constantly 8. Unable to answer Pain Effect on Sleep: 1 Pain Interference with Therapy: 1 Pain Interference w/Day-to-Day: 1 Transfers SCALE: Activities may be completed with or without assistive devices. 9-Urqqgmczhl-ibxlenu completes the activity by him/herself with no assistance from a helper. 5-Set-up or Clean-up Assistance-helper sets up or cleans up; patient completes activity. [place] assists only prior to or following the activity. 4-Supervision or Touching Assistance-helper provides verbal cues and/or touching/steadying and/or contact guard assistance as patient completes activity. Assistance may be provided throughout the activity or intermittently. 3-Partial/Moderate Assistance-helper does LESS THAN HALF the effort. [place] lifts, holds or supports trunk or limbs, but provides less than half the effort. 2-Substantial/Maximal Assistance-helper does MORE THAN HALF the effort. [place] lifts or holds trunk or limbs and provides more than half the effort. 6-Qbbaemsly-mshmjs does ALL the effort. Patient does none of the effort to complete the activity. Or, the assistance of 2 or more helpers is required for the patient to complete the activity. If activity was not attempted, code reason: 7-Patient Refused. 9-Not Applicable-not attempted and the patient did not perform the activity be fore the current illness, exacerbation or injury. 10-Not Attempted due to Environmental Limitations-(lack of equipment, weather restraints, etc.). 88-Not Attempted due to Medical Conditions or Safety Concerns. Weight Bearing Right Lower Extremity: Right Partial Weight Bearing Left Lower Extremity: Left Full Weight Bearing Exercises Supine Ex: Ankle pumps, Quad Set, Heel Slides Supine Reps: 10 Seated Therapy Exercises: Long arc quads Seated Reps: 10 Assessment all exercises in recliner with LE's elevated with leg rest. Patient tolerated treatment and remains up in recliner for lunch. Increase activity as tolerated by patient. PT Service Developer Goals Service Developer Goals PT Service Developer Goals Time Frame: Aug 28, 2023 Roll Left & Right (QC): 4 Sit to Lying (QC): 4 Lying-Sitting on Side/Bed(QC): 4 Sit to Stand (QC): 4 Chair/Xyz-uo-Rkvbn Xfer(QC): 4 Toilet Transfer (QC): 4 Car Transfer (QC): 4 Does the Patient Walk: Yes Walk 10 feet (QC): 4 Walk 50ft with 2 Turns (QC): 3 Walk 150 ft (QC): 3 1 Step (curb) (QC): 3 4 Steps (QC): 3 12 Steps (QC): 3 PT Plan Treatment/Plan Treatment Plan: Continue Plan of Care Treatment Plan: Bed Mobility, Education, Functional Activity Bel, Functional Strength, Group Therapy, Gait, Safety, Therapeutic Exercise, Transfers Treatment Duration: Aug 28, 2023 Frequency: 11 times per week Estimated Hrs Per Day: .25 hour per day Patient and/or Family Agrees t: Yes Time Time In: 1245 Time Out: 1258 DATE: Aug 07, 2023 Total Billed Treatment Time: 13 Total Billed Treatment 1 visit EX 13 min ANKITA FLOR PT Aug 07, 2023 13:10
--- NOTE | 2023-08-07 14:40 | Anesthesia-Regional Post-Op ---
Regional Patient Condition Mental Status: Alert, Oriented x3 Circulation: Same as Pre-Op Headache: Absent Sensation: Full Recovery Motor Block: Absent Post Op Complications Complications None Follow Up Care/Instructions Patient Instructions None needed. Anesthesia/Patient Condition Patient is doing well, no complaints, stable vital signs, no apparent adverse anesthesia problems. No complications reported per nursing. PRABHAKAR PAUL CRNA Aug 07, 2023 14:40
[2023-08-07 16:04] VITALS: BP 115/73
[2023-08-07 19:11] VITALS: BP 118/84
[2023-08-07] MEDS: MELATONIN 3 MG TABLET PO PRN (19:56)
[2023-08-07 23:57] VITALS: BP 129/77
[2023-08-08] MEDS: NS IV 1000 ML 1,000 ML IV SCH (02:01)
[2023-08-08 03:46] VITALS: BP 150/89
[2023-08-08 06:17] LABS: BASOPHILS % (AUTO) 0 % (0-10); EOSINOPHILS # (AUTO) 0.4 10^3/uL (0.0-0.3); EOSINOPHILS % (AUTO) 7 % (0-10); HEMATOCRIT 28 % (35-52); HEMOGLOBIN 9.4 g/dL (11.5-16.0); LYMPHOCYTES % (AUTO) 20 % (12-44); MEAN CORPUSCULAR HEMOGLOBIN 29 pg (25-34); MEAN CORPUSCULAR HGB CONC 33 g/dL (32-36); MEAN CORPUSCULAR VOLUME 88 fL (80-99); MEAN PLATELET VOLUME 10.5 fL (9.0-12.2); MONOCYTES # (AUTO) 0.5 10^3/uL (0.0-1.0); MONOCYTES % (AUTO) 10 % (0-12); NEUTROPHILS # (AUTO) 3.3 10^3/uL (1.8-7.8); NEUTROPHILS % (AUTO) 62 % (42-75); PLATELET COUNT 138 10^3/uL (130-400); WHITE BLOOD COUNT 5.3 10^3/uL (4.3-11.0)
[2023-08-08 06:40] LABS: ALBUMIN 2.8 GM/DL (3.2-4.5); BILIRUBIN,TOTAL 0.5 MG/DL (0.1-1.0); CALCIUM 8.1 MG/DL (8.5-10.1); CREATININE SERUM 0.57 MG/DL (0.60-1.30); POTASSIUM 3.6 MMOL/L (3.6-5.0)
--- NOTE | 2023-08-08 07:08 | Progress Note ---
Standard Progress Note Progress Notes/Assess & Plan Date Seen by a Provider: Aug 08, 2023 Time Seen by a Provider: 07:07 Progress/Assessment & Plan no complaints Laboratory Tests Test 08/07/23 05:58 Range/Units White Blood Count 5.2 4.3-11.0 10^3/uL Red Blood Count 3.69 L 3.80-5.11 10^6/uL Hemoglobin 10.7 L 11.5-16.0 g/dL Hematocrit 33 L 35-52 % Mean Corpuscular Volume 89 80-99 fL Mean Corpuscular Hemoglobin 29 25-34 pg Mean Corpuscular Hemoglobin Concent 33 32-36 g/dL Red Cell Distribution Width 14.0 10.0-14.5 % Platelet Count 193 130-400 10^3/uL Mean Platelet Volume 9.5 9.0-12.2 fL Immature Granulocyte % (Auto) 0 % Neutrophils (%) (Auto) 69 42-75 % Lymphocytes (%) (Auto) 15 12-44 % Monocytes (%) (Auto) 9 0-12 % Eosinophils (%) (Auto) 6 0-10 % Basophils (%) (Auto) 0 0-10 % Neutrophils # (Auto) 3.6 1.8-7.8 10^3/uL Lymphocytes # (Auto) 0.8 L 1.0-4.0 10^3/uL Monocytes # (Auto) 0.4 0.0-1.0 10^3/uL Eosinophils # (Auto) 0.3 0.0-0.3 10^3/uL Basophils # (Auto) 0.0 0.0-0.1 10^3/uL Immature Granulocyte # (Auto) 0.0 0.0-0.1 10^3/uL Sodium Level 131 L 135-145 MMOL/L Potassium Level 3.9 3.6-5.0 MMOL/L Chloride Level 97 L 98-107 MMOL/L Carbon Dioxide Level 27 21-32 MMOL/L Anion Gap 7 5-14 MMOL/L Blood Urea Nitrogen 6 L 7-18 MG/DL Creatinine 0.59 L 0.60-1.30 MG/DL Estimat Glomerular Filtration Rate 89 BUN/Creatinine Ratio 10 Glucose Level 96 70-105 MG/DL Calcium Level 8.3 L 8.5-10.1 MG/DL Corrected Calcium 9.1 8.5-10.1 MG/DL Total Bilirubin 0.6 0.1-1.0 MG/DL Aspartate Amino Transf (AST/SGOT) 23 5-34 U/L Alanine Aminotransferase (ALT/SGPT) 7 0-55 U/L Alkaline Phosphatase 156 H 40-136 U/L Total Protein 6.4 6.4-8.2 GM/DL Albumin 3.0 L 3.2-4.5 GM/DL Vital Signs Date Time Temp Pulse Resp B/P (MAP) Pulse Ox O2 Delivery O2 Flow Rate FiO2 08/07/23 07:26 36.1 85 15 180/97 (124) 90 Room Air 08/07/23 03:24 36.4 73 16 161/97 (118) 97 Room Air 0.00 0.00 08/06/23 23:05 36.5 94 16 164/89 (114) 94 Room Air 0.00 0.00 08/06/23 21:39 94 Room Air 08/06/23 20:00 Room Air 08/06/23 19:59 36.7 90 16 189/92 (124) 94 Room Air 08/06/23 16:28 36.4 86 18 151/80 (103) 95 Room Air 08/06/23 13:16 36.5 76 16 121/86 (98) 98 Room Air 08/06/23 12:45 Room Air 08/06/23 12:40 36.8 16 134/83 (100) 96 Room Air 08/06/23 12:30 16 134/94 (107) 96 Room Air 08/06/23 12:30 Room Air 08/06/23 12:20 18 112/81 (91) 100 OxyMask 2.00 08/06/23 12:15 OxyMask 2.00 08/06/23 12:10 18 95/88 (90) 100 OxyMask 4.00 08/06/23 12:02 OxyMask 4.00 08/06/23 12:02 37.0 20 111/65 (80) 100 OxyMask 4.00 08/06/23 08:35 154/92 (112) 08/06/23 08:00 Room Air I & O 08/07/23 07:00 Intake Total 3675 ml Output Total 2160 ml Balance 1515 ml RLE--dressing intact intact DF and PF of toes and ankle sensation intact throughout pulses equal s/p R hip IM ronny mobilize--WBAT Final Diagnosis no complaints Vital Signs Date Time Temp Pulse Resp B/P (MAP) Pulse Ox O2 Delivery O2 Flow Rate FiO2 08/08/23 03:46 36.4 72 18 150/89 (109) 91 Room Air 0.00 0.00 08/07/23 23:57 36.4 77 18 129/77 (94) 94 Room Air 0.00 0.00 08/07/23 20:47 91 Room Air 08/07/23 19:55 Room Air 08/07/23 19:11 36.7 88 18 118/84 (95) 91 Room Air 08/07/23 16:04 36.2 80 18 115/73 (87) 91 Room Air 08/07/23 11:19 36.2 80 16 177/93 (121) 91 Room Air 08/07/23 09:20 91 Room Air 0.00 08/07/23 08:00 91 Room Air 08/07/23 07:26 36.1 85 15 180/97 (124) 90 Room Air I & O 08/08/23 07:00 Intake Total 2400 ml Output Total 1500 ml Balance 900 ml Laboratory Tests Test 08/08/23 05:50 Range/Units White Blood Count 5.3 4.3-11.0 10^3/uL Red Blood Count 3.20 L 3.80-5.11 10^6/uL Hemoglobin 9.4 L 11.5-16.0 g/dL Hematocrit 28 L 35-52 % Mean Corpuscular Volume 88 80-99 fL Mean Corpuscular Hemoglobin 29 25-34 pg Mean Corpuscular Hemoglobin Concent 33 32-36 g/dL Red Cell Distribution Width 14.2 10.0-14.5 % Platelet Count 138 130-400 10^3/uL Mean Platelet Volume 10.5 9.0-12.2 fL Immature Granulocyte % (Auto) 1 % Neutrophils (%) (Auto) 62 42-75 % Lymphocytes (%) (Auto) 20 12-44 % Monocytes (%) (Auto) 10 0-12 % Eosinophils (%) (Auto) 7 0-10 % Basophils (%) (Auto) 0 0-10 % Neutrophils # (Auto) 3.3 1.8-7.8 10^3/uL Lymphocytes # (Auto) 1.0 1.0-4.0 10^3/uL Monocytes # (Auto) 0.5 0.0-1.0 10^3/uL Eosinophils # (Auto) 0.4 H 0.0-0.3 10^3/uL Basophils # (Auto) 0.0 0.0-0.1 10^3/uL Immature Granulocyte # (Auto) 0.1 0.0-0.1 10^3/uL Sodium Level 132 L 135-145 MMOL/L Potassium Level 3.6 3.6-5.0 MMOL/L Chloride Level 99 98-107 MMOL/L Carbon Dioxide Level 26 21-32 MMOL/L Anion Gap 7 5-14 MMOL/L Blood Urea Nitrogen 8 7-18 MG/DL Creatinine 0.57 L 0.60-1.30 MG/DL Estimat Glomerular Filtration Rate 90 BUN/Creatinine Ratio 14 Glucose Level 87 70-105 MG/DL Calcium Level 8.1 L 8.5-10.1 MG/DL Corrected Calcium 9.1 8.5-10.1 MG/DL Total Bilirubin 0.5 0.1-1.0 MG/DL Aspartate Amino Transf (AST/SGOT) 26 5-34 U/L Alanine Aminotransferase (ALT/SGPT) 7 0-55 U/L Alkaline Phosphatase 135 40-136 U/L Total Protein 6.0 L 6.4-8.2 GM/DL Albumin 2.8 L 3.2-4.5 GM/DL r hip incisions clean and dry no calf tenderness neg Maynor's s/p R hip IM ronny to [facility] when accepted JUDITH ARECHIGA MD Aug 08, 2023 07:08
[2023-08-08] MEDS: RT-Ipratropium/Albuterol NEB 3 ML VIAL INH SCH (07:21)
[2023-08-08 07:23] VITALS: BP 150/89
[2023-08-08 07:31] VITALS: BP 127/76
--- NOTE | 2023-08-08 07:59 | Progress Note ---
HILARY CABRERA 08/08/23 0759: Subjective Date Seen by a Provider: Aug 08, 2023 Subjective/Events-last exam Pt reports that she is in "no pain compared to yesterday". She verbalized how she came into the hospital with excruciating pain and that pain is no longer present. She reports walking the hallways this morning and is proud of her ability to do so. She has some soreness in her right shoulder due to grabbing tightly during transfers and mobility exercises. Pt denies having a BM yesterday or today. Review of Systems General: No Chills, No Night Sweats, No Fatigue; Appetite HEENT: No Head Aches, No Visual Changes, No Ear Pain Pulmonary: No Cough Cardiovascular: No: Chest Pain, Palpitations Gastrointestinal: No: Nausea, Vomiting, Abdominal Pain, Diarrhea, Constipation Musculoskeletal: shoulder pain (rt) Neurological: No: Weakness, Numbness, Incoordination, Change in speech, Confusion Objective Exam Last Set of Vital Signs Vital Signs Date Time Temp Pulse Resp B/P (MAP) Pulse Ox O2 Delivery O2 Flow Rate FiO2 08/08/23 07:31 36.0 78 16 127/76 (93) 92 Room Air 08/08/23 07:23 21 08/08/23 07:21 0.00 Capillary Refill : Less Than 3 Seconds I&O Intake and Output 08/08/23 00:00 Intake Total 1350 ml Output Total 1000 ml Balance 350 ml Intake Oral 1300 ml IV Total 50 ml Output Urine Total 1000 ml # Voids 4 General: Alert, Oriented X3, Cooperative, No Acute Distress HEENT: PERRLA, EOMI Neck: No JVD Lungs: Clear to Auscultation, Normal Air Movement Heart: Regular Rate, No Murmurs Abdomen: Normal Bowel Sounds, Soft, No Tenderness Extremities: No Clubbing, No Cyanosis, Normal Pulses (2+ b/l radius and posterior tibialis) Neuro: Normal Speech, Strength at 5/5 X4 Ext, Sensation Intact, Cranial Nerves 3-12 NL Psych/Mental Status: Mental Status NL, Mood NL Results Lab Laboratory Tests 08/08/23 05:50: White Blood Count 5.3, Red Blood Count 3.20L, Hemoglobin 9.4L, Hematocrit 28L, Mean Corpuscular Volume 88, Mean Corpuscular Hemoglobin 29, Mean Corpuscular Hemoglobin Concent 33, Red Cell Distribution Width 14.2, Platelet Count 138, Mean Platelet Volume 10.5, Immature Granulocyte % (Auto) 1, Neutrophils (%) (Au to) 62, Lymphocytes (%) (Auto) 20, Monocytes (%) (Auto) 10, Eosinophils (%) (Auto) 7, Basophils (%) (Auto) 0, Neutrophils # (Auto) 3.3, Lymphocytes # (Auto) 1.0, Monocytes # (Auto) 0.5, Eosinophils # (Auto) 0.4H, Basophils # (Auto) 0.0, Immature Granulocyte # (Auto) 0.1, Sodium Level 132L, Potassium Level 3.6, Chloride Level 99, Carbon Dioxide Level 26, Anion Gap 7, Blood Urea Nitrogen 8, Creatinine 0.57L, Estimat Glomerular Filtration Rate 90, BUN/Creatinine Ratio 14, Glucose Level 87, Calcium Level 8.1L, Corrected Calcium 9.1, Total Bilirubin 0.5, Aspartate Amino Transf (AST/SGOT) 26, Alanine Aminotransferase (ALT/SGPT) 7, Alkaline Phosphatase 135, Total Protein 6.0L, Albumin 2.8L Microbiology 08/06/23 MRSA Screen - Final, Complete MRSA not isolated Assessment/Plan Assessment/Plan Assess & Plan/Chief Complaint Assessment: Non-displaced intertrochanteric fracture in proximal right femur HTN Hyponatremia Plan: Non-displaced intertrochanteric fracture in proximal right femur -Right hip intramedullary nail performed by Dr. Pryor on 08/06 -Pt will be discharged to [facility] -BP recordings today are lower than 08/07 -continue current medications Hyponatremia -this morning reading was 132. 08/07 it was 131. Clinical Quality Measures Admission Status Admission Dx Assessment: Non-displaced intertrochanteric fracture in proximal right femur HTN Hyponatremia Plan: Non-displaced intertrochanteric fracture in proximal right femur -Right hip intramedullary nail performed by Dr. Pryor on 08/06 -will monitor the pt post-op HTN -will monitor her BP and continue current treatment Hyponatremia -will continue to monitor the pt's status DVT/VTE Risk/Contraindication: Contraindications-Pharm: Other *list below* Other: OR PAYTON HERNANDEZ DO 08/09/23 0629: Subjective Time Seen by a Provider: 11:00 Supervisory-Addendum Brief Verification & Attestation Participated in pt care: history, MDM, physical Personally performed: exam, history, MDM, supervision of care Care discussed with: Medical Student Procedures: n/a Results interpretation: Verified all documentation Verification and Attestation of Medical Student E/M Service A medical student performed and documented this service in my presence. I reviewed and verified all information documented by the medical student and made modifications to such information, when appropriate. I personally performed the physical exam and medical decision making. Payton Hernandez, Aug 09, 2023,06:28 HILARY CABRERA Aug 08, 2023 07:59 PAYTON HERNANDEZ DO Aug 09, 2023 06:29
[2023-08-08] MEDS: meTOprolol TARTRATE (IR) 25 MG TABLET PO SCH (08:01)
[2023-08-08] MEDS: ASPIRIN enteric coated 81MG TABLET PO SCH (08:01)
[2023-08-08] MEDS: ALPRAZolam 1 MG TABLET PO SCH (08:01)
[2023-08-08] MEDS: ZINC SULFATE 220 MG CAPSULE PO SCH (08:01)
[2023-08-08] MEDS: DOCUSATE SODIUM 100 MG CAPSULE PO SCH (08:02)
[2023-08-08] MEDS: VITAMIN D3 25 MCG (1,000 UNITS) TABLET PO SCH (08:02)
[2023-08-08] MEDS: SENNOSIDES 8.6 MG TABLET PO SCH (08:02)
[2023-08-08] MEDS: PANTOPRAZOLE 20 MG TABLET PO SCH (08:02)
[2023-08-08] MEDS: ENOXAPARIN 40 MG/0.4 ML SYRINGE SC SCH (08:02)
[2023-08-08] MEDS ORDERED: amLODIPine 5 MG TABLET PO SCH (09:00)
--- NOTE | 2023-08-08 10:12 | Physical Therapy Daily Note ---
PT Daily Note-Current Subjective Patient agrees to PT. Pain Numeric Pain Scale: 0-No Pain Location: No Pain Reported Section J - Health Conditions 1. Rarely or not at all 2. Occasionally 3. Frequently 4. Almost constantly 8. Unable to answer Pain Effect on Sleep: 1 Pain Interference with Therapy: 1 Pain Interference w/Day-to-Day: 1 Mental Status Patient Orientation: Normal For Age Transfers SCALE: Activities may be completed with or without assistive devices. 2-Fjrjaytnhe-smuiujm completes the activity by him/herself with no assistance from a helper. 5-Set-up or Clean-up Assistance-helper sets up or cleans up; patient completes activity. [place] assists only prior to or following the activity. 4-Supervision or Touching Assistance-helper provides verbal cues and/or touc rose mary/steadying and/or contact guard assistance as patient completes activity. Assistance may be provided throughout the activity or intermittently. 3-Partial/Moderate Assistance-helper does LESS THAN HALF the effort. [place] lifts, holds or supports trunk or limbs, but provides less than half the effort. 2-Substantial/Maximal Assistance-helper does MORE THAN HALF the effort. [place] lifts or holds trunk or limbs and provides more than half the effort. 7-Rcfyxggil-pljrad does ALL the effort. Patient does none of the effort to complete the activity. Or, the assistance of 2 or more helpers is required for the patient to complete the activity. If activity was not attempted, code reason: 7-Patient Refused. 9-Not Applicable-not attempted and the patient did not perform the activity before the current illness, exacerbation or injury. 10-Not Attempted due to Environmental Limitations-(lack of equipment, weather restraints, etc.). 88-Not Attempted due to Medical Conditions or Safety Concerns. Lying to Sitting/Side of Bed(Q: 4 Sit to Stand (QC): 4 Chair/[id number] Xfer(QC): 4 Weight Bearing Right Lower Extremity: Right Weight Bearing/Tolerated Left Lower Extremity: Left Full Weight Bearing WBAT R per surgeons report Gait Training Distance: 400' Walk 10 feet (QC): 4 Walk 50 ft with 2 Turns(QC): 4 Walk 150 ft (QC): 4 Gait Assistive Device: FWW steady, reciprocal pattern Exercises Seated Therapy Exercises: Ankle pumps, Long arc quads Seated Reps: 15 Assessment Patient continues to deny patient right LE and is highly motivated with WBAT right LE. Patient up in recliner with needs met. PT Line Maintainer Goals Line Maintainer Goals PT Retirement Goals Time Frame: Aug 28, 2023 Roll Left & Right (QC): 4 Sit to Lying (QC): 4 Lying-Sitting on Side/Bed(QC): 4 Sit to Stand (QC): 4 Chair/[id number]-[id number] Xfer(QC): 4 Toilet Transfer (QC): 4 Car Transfer (QC): 4 Does the Patient Walk: Yes Walk 10 feet (QC): 4 Walk 50ft with 2 Turns (QC): 3 Walk 150 ft (QC): 3 1 Step (curb) (QC): 3 4 Steps (QC): 3 12 Steps (QC): 3 PT Plan Treatment/Plan Treatment Plan: Continue Plan of Care Treatment Plan: Bed Mobility, Education, Functional Activity Bel, Functional Strength, Group Therapy, Gait, Safety, Therapeutic Exercise, Transfers Treatment Duration: Aug 28, 2023 Frequency: 11 times per week Estimated Hrs Per Day: .25 hour per day Patient and/or Family Agrees t: Yes Time Time In: 751 Time Out: 814 DATE: Aug 08, 2023 Total Billed Treatment Time: 23 Total Billed Treatment 1 visit FA x 2 23 min ANKITA FLOR PT Aug 08, 2023 10:12
[2023-08-08 11:50] VITALS: BP 102/65
[2023-08-08] MEDS ORDERED: WHEA98PO PO (12:34)
[2023-08-08] MEDS ORDERED: ASPI-1238 PO (12:34)
[2023-08-08] MEDS ORDERED: LACT20SO2 PO (12:34)
[2023-08-08] MEDS ORDERED: AMLO-250 PO (12:34)
[2023-08-08] MEDS ORDERED: ZINC50TA11 PO (12:34)
[2023-08-08] MEDS ORDERED: ENOX40DI8 SC (12:34)
[2023-08-08] MEDS ORDERED: SENN-234 PO (12:34)
[2023-08-08] MEDS ORDERED: CHOL20002 PO (12:34)
[2023-08-08] MEDS ORDERED: ESCI20TA39 PO (12:34)
[2023-08-08] MEDS ORDERED: ONDA4TAB11 PO (12:34)
[2023-08-08] MEDS ORDERED: OMEP20CA18 PO (12:34)
[2023-08-08] MEDS ORDERED: METO-333 PO (12:34)
[2023-08-08] MEDS ORDERED: TRM50T PO (12:34)
[2023-08-08] MEDS ORDERED: ACET325T49 PO (12:34)
[2023-08-08] MEDS ORDERED: FLUT9.9S NSEACH (12:34)
[2023-08-08] MEDS ORDERED: ALPR1TAB7 PO (12:34)
--- NOTE | 2023-08-08 12:36 | Discharge Summary ---
Diagnosis/Chief Complaint Date of Admission Aug 05, 2023 at 15:59 Date of Discharge Discharge Date: Aug 08, 2023 Discharge Diagnosis Assessment: Non-displaced intertrochanteric fracture in proximal right femur HTN Hyponatremia Plan: Non-displaced intertrochanteric fracture in proximal right femur -Right hip intramedullary nail performed by Dr. Pryor on 08/06 -Pt will be discharged to [facility] -BP recordings today are lower than 08/07 -continue current medications Hyponatremia -this morning reading was 132. 08/07 it was 131. Reason Hospital Visit CC: Right hip fracture found on CT scan with negative xrays x 2 HPI: This is an 83yoWF clinic patient of who presented following a right hip fracture repair uncomplicated by Dr Pryor. I have reviewed her meds and labs and restart home meds. Family is very anxious overall about the patient so tried to reassure. Discharge Summary Discharge Physical Examination Allergies: Coded Allergies: Iodinated Contrast Media (Verified Allergy, Intermediate, Hives, 02/03/22) azithromycin (Verified Allergy, Unknown, 02/03/22) Uncoded Allergies: ERYTHROMYCIN (Allergy, Unknown, 01/07/17) Vitals & I&Os Vital Signs Date Time Temp Pulse Resp B/P (MAP) Pulse Ox O2 Delivery O2 Flow Rate FiO2 08/08/23 11:50 36.4 67 18 102/65 (77) 94 Room Air 08/08/23 07:23 21 08/08/23 07:21 0.00 General Appearance: Alert, Oriented X3, Cooperative Respiratory: Clear to Auscultation Cardiovascular: Regular Rate Psych/Mental Status: Mental Status NL Hospital Course Was the Problem List Reviewed?: Yes Uneventful course after she was admitted following the dx of Uneventful course after repair of right femur fracture dx with CT scan after 2 separate xrays were negative. Patient had an uneventful post op course and was ultimately able to participate in therapy and labs remained stable and pain was controlled and the decision was made to move to [facility] to complete skilled care. Labs (last 24 hrs) Laboratory Tests 08/05/23 15:28: White Blood Count 5.5, Red Blood Count 4.19, Hemoglobin 12.0, Hematocrit 38, Mean Corpuscular Volume 91, Mean Corpuscular Hemoglobin 29, Mean Corpuscular Hemoglobin Concent 32, Red Cell Distribution Width 14.1, Platelet Count 260, Mean Platelet Volume 9.5, Immature Granulocyte % (Auto) 0, Neutrophils (%) (A uto) 69, Lymphocytes (%) (Auto) 21, Monocytes (%) (Auto) 6, Eosinophils (%) (Auto) 3, Basophils (%) (Auto) 1, Neutrophils # (Auto) 3.8, Lymphocytes # (Auto) 1.2, Monocytes # (Auto) 0.3, Eosinophils # (Auto) 0.2, Basophils # (Auto) 0.0, Immature Granulocyte # (Auto) 0.0, Sodium Level 130L, Potassium Level 3.8, Chloride Level 96L, Carbon Dioxide Level 25, Anion Gap 9, Blood Urea Nitrogen 11, Creatinine 0.62, Estimat Glomerular Filtration Rate 88, BUN/Creatinine Ratio 18, Glucose Level 85, Calcium Level 8.8, Corrected Calcium 9.2, Total Bilirubin 0.7, Aspartate Amino Transf (AST/SGOT) 19, Alanine Aminotransferase (ALT/SGPT) 11, Alkaline Phosphatase 162H, Total Protein 7.7, Albumin 3.5 08/06/23 05:20: White Blood Count 4.4, Red Blood Count 3.89, Hemoglobin 11.2L, Hematocrit 35, Mean Corpuscular Volume 90, Mean Corpuscular Hemoglobin 29, Mean Corpuscular Hemoglobin Concent 32, Red Cell Distribution Width 13.9, Platelet Count 214, Mean Platelet Volume 9.9, Immature Granulocyte % (Auto) 0, Neutrophils (%) (Auto) 60, Lymphocytes (%) (Auto) 27, Monocytes (%) (Auto) 8, Eosinophils (%) (Auto) 5, Basophils (%) (Auto) 1, Neutrophils # (Auto) 2.7, Lymphocytes # (Auto) 1.2, Monocytes # (Auto) 0.4, Eosinophils # (Auto) 0.2, Basophils # (Auto) 0.0, Immature Granulocyte # (Auto) 0.0, Sodium Level 133L, Potassium Level 3.8, Chloride Level 98, Carbon Dioxide Level 27, Anion Gap 8, Blood Urea Nitrogen 9, Creatinine 0.60, Estimat Glomerular Filtration Rate 89, BUN/Creatinine Ratio 15, Glucose Level 82, Calcium Level 8.4L, Corrected Calcium 9.1, Total Bilirubin 0.6, Aspartate Amino Transf (AST/SGOT) 15, Alanine Aminotransferase (ALT/SGPT) 8 , Alkaline Phosphatase 142H, Total Protein 6.8, Albumin 3.1L 08/07/23 05:58: White Blood Count 5.2, Red Blood Count 3.69L, Hemoglobin 10.7L, Hematocrit 33L, Mean Corpuscular Volume 89, Mean Corpuscular Hemoglobin 29, Mean Corpuscular Hemoglobin Concent 33, Red Cell Distribution Width 14.0, Platelet Count 193, Mean Platelet Volume 9.5, Immature Granulocyte % (Auto) 0, Neutrophils (%) (Auto) 69, Lymphocytes (%) (Auto) 15, Monocytes (%) (Auto) 9, Eosinophils (%) (Auto) 6, Basophils (%) (Auto) 0, Neutrophils # (Auto) 3.6, Lymphocytes # (Auto) 0.8L, Monocytes # (Auto) 0.4, Eosinophils # (Auto) 0.3, Basophils # (Auto) 0.0, Immature Granulocyte # (Auto) 0.0, Sodium Level 131L, Potassium Level 3.9, Chloride Level 97L, Carbon Dioxide Level 27, Anion Gap 7, Blood Urea Nitrogen 6L , Creatinine 0.59L, Estimat Glomerular Filtration Rate 89, BUN/Creatinine Ratio 10, Glucose Level 96, Calcium Level 8.3L, Corrected Calcium 9.1, Total Bilirubin 0.6, Aspartate Amino Transf (AST/SGOT) 23, Alanine Aminotransferase (ALT/SGPT) 7, Alkaline Phosphatase 156H, Total Protein 6.4, Albumin 3.0L 08/08/23 05:50: White Blood Count 5.3, Red Blood Count 3.20L, Hemoglobin 9.4L, Hematocrit 28L, Mean Corpuscular Volume 88, Mean Corpuscular Hemoglobin 29, Mean Corpuscular Hemoglobin Concent 33, Red Cell Distribution Width 14.2, Platelet Count 138, Mean Platelet Volume 10.5, Immature Granulocyte % (Auto) 1, Neutrophils (%) (Auto) 62, Lymphocytes (%) (Auto) 20, Monocytes (%) (Auto) 10, Eosinophils (%) (Auto) 7, Basophils (%) (Auto) 0, Neutrophils # (Auto) 3.3, Lymphocytes # (Auto) 1.0, Monocytes # (Auto) 0.5, Eosinophils # (Auto) 0.4H, Basophils # (Auto) 0.0, Immature Granulocyte # (Auto) 0.1, Sodium Level 132L, Potassium Level 3.6, Chloride Level 99, Carbon Dioxide Level 26, Anion Gap 7, Blood Urea Nitrogen 8, Creatinine 0.57L, Estimat Glomerular Filtration Rate 90, BUN/Creatinine Ratio 14, Glucose Level 87, Calcium Level 8.1L, Corrected Calcium 9.1, Total Bilirubin 0.5, Aspartate Amino Transf (AST/SGOT) 26, Alanine Aminotransferase (ALT/SGPT) 7, Alkaline Phosphatase 135, Total Protein 6.0L, Albumin 2.8L Microbiology 08/06/23 MRSA Screen - Final, Complete MRSA not isolated Pending Labs Microbiology Date/Time Source Procedure Growth Status 08/06/23 05:45 Nasal MRSA Screen - Final MRSA not isolated Complete Laboratory Tests 08/05/23 15:28: White Blood Count 5.5, Red Blood Count 4.19, Hemoglobin 12.0, Hematocrit 38, Mean Corpuscular Volume 91, Mean Corpuscular Hemoglobin 29, Mean Corpuscular Hemoglobin Concent 32, Red Cell Distribution Width 14.1, Platelet Count 260, Mean Platelet Volume 9.5, Immature Granulocyte % (Auto) 0, Neutrophils (%) (Auto) 69, Lymphocytes (%) (Auto) 21, Monocytes (%) (Auto) 6, Eosinophils (%) (Auto) 3, Basophils (%) (Auto) 1, Neutrophils # (Auto) 3.8, Lymphocytes # (Auto) 1.2, Monocytes # (Auto) 0.3, Eosinophils # (Auto) 0.2, Basophils # (Auto) 0.0, Immature Granulocyte # (Auto) 0.0, Sodium Level 130, Potassium Level 3.8, Chloride Level 96, Carbon Dioxide Level 25, Anion Gap 9, Blood Urea Nitrogen 11, Creatinine 0.62, Estimat Glomerular Filtration Rate 88, BUN/Creatinine Ratio 18, Glucose Level 85, Calcium Level 8.8, Corrected Calcium 9.2, Total Bilirubin 0.7, Aspartate Amino Transf (AST/SGOT) 19, Alanine Aminotransferase (ALT/SGPT) 11, Alkaline Phosphatase 162, Total Protein 7.7, Albumin 3.5 08/06/23 05:20: White Blood Count 4.4, Red Blood Count 3.89, Hemoglobin 11.2, Hematocrit 35, Mean Corpuscular Volume 90, Mean Corpuscular Hemoglobin 29, Mean Corpuscular Hem oglobin Concent 32, Red Cell Distribution Width 13.9, Platelet Count 214, Mean Platelet Volume 9.9, Immature Granulocyte % (Auto) 0, Neutrophils (%) (Auto) 60, Lymphocytes (%) (Auto) 27, Monocytes (%) (Auto) 8, Eosinophils (%) (Auto) 5, Basophils (%) (Auto) 1, Neutrophils # (Auto) 2.7, Lymphocytes # (Auto) 1.2, Monocytes # (Auto) 0.4, Eosinophils # (Auto) 0.2, Basophils # (Auto) 0.0, Immature Granulocyte # (Auto) 0.0, Sodium Level 133, Potassium Level 3.8, Chloride Level 98, Carbon Dioxide Level 27, Anion Gap 8, Blood Urea Nitrogen 9, Creatinine 0.60, Estimat Glomerular Filtration Rate 89, BUN/Creatinine Ratio 15, Glucose Level 82, Calcium Level 8.4, Corrected Calcium 9.1, Total Bilirubin 0.6, Aspartate Amino Transf (AST/SGOT) 15, Alanine Aminotransferase (ALT/SGPT) 8, Alkaline Phosphatase 142, Total Protein 6.8, Albumin 3.1 08/07/23 05:58: White Blood Count 5.2, Red Blood Count 3.69, Hemoglobin 10.7, Hematocrit 33, Mean Corpuscular Volume 89, Mean Corpuscular Hemoglobin 29, Mean Corpuscular Hemoglobin Concent 33, Red Cell Distribution Width 14.0, Platelet Count 193, Mean Platelet Volume 9.5, Immature Granulocyte % (Auto) 0, Neutrophils (%) (Auto) 69, Lymphocytes (%) (Auto) 15, Monocytes (%) (Auto) 9, Eosinophils (%) (Auto) 6, Basophils (%) (Auto) 0, Neutrophils # (Auto) 3.6, Lymphocytes # (Auto) 0.8, Monocytes # (Auto) 0.4, Eosinophils # (Auto) 0.3, Basophils # (Auto) 0.0, Immature Granulocyte # (Auto) 0.0, Sodium Level 131, Potassium Level 3.9, Chloride Level 97, Carbon Dioxide Level 27, Anion Gap 7, Blood Urea Nitrogen 6, Creatinine 0.59, Estimat Glomerular Filtration Rate 89, BUN/Creatinine Ratio 10, Glucose Level 96, Calcium Level 8.3, Corrected Calcium 9.1, Total Bilirubin 0.6, Aspartate Amino Transf (AST/SGOT) 23, Alanine Aminotransferase (ALT/SGPT) 7, Alkaline Phosphatase 156, Total Protein 6.4, Albumin 3.0 08/08/23 05:50: White Blood Count 5.3, Red Blood Count 3.20, Hemoglobin 9.4, Hematocrit 28, Mean Corpuscular Volume 88, Mean Corpuscular Hemoglobin 29, Mean Corpuscular Hemoglobin Concent 33, Red Cell Distribution Width 14.2, Platelet Count 138, Mean Platelet Volume 10.5, Immature Granulocyte % (Auto) 1, Neutrophils (%) (Auto) 62, Lymphocytes (%) (Auto) 20, Monocytes (%) (Auto) 10, Eosinophils (%) (Auto) 7, Basophils (%) (Auto) 0, Neutrophils # (Auto) 3.3, Lymphocytes # (Auto) 1.0, Monocytes # (Auto) 0.5, Eosinophils # (Auto) 0.4, Basophils # (Auto) 0.0, Immature Granulocyte # (Auto) 0.1, Sodium Level 132, Potassium Level 3.6, Chloride Level 99, Carbon Dioxide Level 26, Anion Gap 7, Blood Urea Nitrogen 8, Creatinine 0.57, Estimat Glomerular Filtration Rate 90, BUN/Creatinine Ratio 14, Glucose Level 87, Calcium Level 8.1, Corrected Calcium 9.1, Total Bilirubin 0.5, Aspartate Amino Transf (AST/SGOT) 26, Alanine Aminotransferase (ALT/SGPT) 7, Alkaline Phosphatase 135, Total Protein 6.0, Albumin 2.8 Discharge Home Medications: Active Scripts Active Ondansetron Odt (Ondansetron) 4 Mg Tab.rapdis 4 Mg PO Q6H PRN Senna (Sennosides) 8.6 Mg Tablet 8.6 Mg PO BID Lactulose 20 Gram/30 Ml Solution 20 Gm PO BID PRN Acetaminophen 325 Mg Tablet 650 Mg PO Q4H PRN Tramadol HCl 50 Mg Tablet 50 Mg PO Q4HR PRN Amlodipine Besylate 5 Mg Tablet 5 Mg PO DAILY Enoxaparin Sodium 40 Mg/0.4 Ml Syringe 40 Mg SC Q24H Benefiber (Wheat Dextrin) 3 Gram/3.5 Gram Powd.pack 1 Each PO DAILY PRN Zinc (Zinc Gluconate) 50 Mg Tablet 50 Mg PO DAILY Metoprolol Tartrate 25 Mg Tablet 25 Mg PO BID Flonase Allergy Relief (Fluticasone Propionate) 50 Mcg/Actuation [place].susp 1 [place] NSEACH BID PRN Escitalopram Oxalate 20 Mg Tablet 20 Mg PO HS Vitamin D3 (Cholecalciferol (Vitamin D3)) 50 Mcg (2000 Unit) Capsule 50 Mcg PO DAILY Aspirin EC (Aspirin) 81 Mg Tablet.dr 81 Mg PO DAILY Alprazolam 1 Mg Tablet 1 Mg PO BID Omeprazole 20 Mg Capsule.dr 20 Mg PO BID Instructions to patient/family Please see electronic discharge instructions given to patient. Clinical Quality Measures DVT/VTE Risk/Contraindication: Contraindications-Pharm: Other *list below* Other: OR ANTONIO HERNANDEZ DO Aug 08, 2023 12:36
--- NOTE | 2023-08-08 12:36 | Discharge Inst-Skilled Nursing ---
Discharge Inst-Skilled NF Reconcile Patient Problems Problems Reviewed?: Yes Patient Instructions Patient Problems: Hip fx Goal: [place] Consult/Follow Up/Orders Follow Up Appt.: PCP 1 week Skilled NF Admit to: [facility] Certification ([facility]) I certify that [facility] services are required to be given on an inpatient basis because of the above named patient's need for halfway care on a continuing basis for the conditions(s) for which he/she was receiving inpatient hospital services prior to his/her transfer to the [facility]. Intermediate Facility Order: Nursing Services, Windshield Repair Technician-Evaluate & Treat, Physical Therapy-Evaluate & Treat Oxygen Delivery Method: Room Air Discharge Diet: No Restrictions Daily Activity as Tolerated: Yes Resuscitation Status: Full Code New & Resume Previous Orders New Medications: Acetaminophen (Acetaminophen) 325 Mg Tablet 650 MG PO Q4H PRN for TEMPERATURE, #30 TAB Amlodipine Besylate (Amlodipine Besylate) 5 Mg Tablet 5 MG PO DAILY, #30 TAB Enoxaparin Sodium (Enoxaparin Sodium) 40 Mg/0.4 Ml Syringe 40 MG SC Q24H, #10 [place] Lactulose (Lactulose) 20 Gram/30 Ml Solution 20 GM PO BID PRN for CONSTIPATION-4TH LINE, #120 ML Ondansetron (Ondansetron Odt) 4 Mg Tab.rapdis 4 MG PO Q6H PRN for NAUSEA/VOMITING-1ST LINE, #5 TAB Sennosides (Senna) 8.6 Mg Tablet 8.6 MG PO BID, #60 TAB Tramadol HCl (Tramadol HCl) 50 Mg Tablet 50 MG PO Q4HR PRN for PAIN-MODERATE (5-7), #30 TAB Continued Medications: Alprazolam (Alprazolam) 1 Mg Tablet 1 MG PO BID, #60 TAB (This prescription has been renewed) Aspirin (Aspirin EC) 81 Mg Tablet.dr 81 MG PO DAILY, #30 TAB (This prescription has been renewed) Cholecalciferol (Vitamin D3) (Vitamin D3) 50 Mcg (2000 Unit) Capsule 50 MCG PO DAILY, #30 CAP (This prescription has been renewed) Escitalopram Oxalate (Escitalopram Oxalate) 20 Mg Tablet 20 MG PO HS, #30 TAB (This prescription has been renewed) Fluticasone Propionate (Flonase Allergy Relief) 50 Mcg/Actuation [place].susp 1 [place] NSEACH BID PRN for CONGESTION, #1 EACH (This prescription has been renewed) Metoprolol Tartrate (Metoprolol Tartrate) 25 Mg Tablet 25 MG PO BID, #60 TAB (This prescription has been renewed) Omeprazole (Omeprazole) 20 Mg Capsule.dr 20 MG PO BID, #60 CAP (This prescription has been renewed) Wheat Dextrin (Benefiber) 3 Gram/3.5 Gram Powd.pack 1 EACH PO DAILY PRN for CONSTIPATION, #10 EACH (This prescription has been renewed) Zinc Gluconate (Zinc) 50 Mg Tablet 50 MG PO DAILY, #30 TAB (This prescription has been renewed) Payton Bailey Aug 08, 2023 12:35 PAYTON BAILEY DO Aug 08, 2023 12:36
--- NOTE | 2023-08-08 13:09 | Physical Therapy Progress Note ---
Therapy Progress Note Patient transferring to [facility] on this date. ANKITA FLOR PT Aug 08, 2023 13:09
--- NOTE | 2023-08-13 15:56 | Diagnostic Imaging Report ---
INDICATION: ORIF of femoral fracture COMPARISON: None available. IMPRESSION: Images show placement of a proximal femoral nail with antirotation blade. Air Kerma is 489.12 mRad. Please see procedure report for more details. Dictated by: Dictated on workstation # [id number]
== END 2023-08-08 14:14 | DRG 481 ==
LOC: EDUNIT# 12:14 → ER 12:17 → 4TH 15:59
PROVIDERS: ADMIT Internal Medicine; ATTEND Internal Medicine
PROC: 0QH606Z Insertion of Intramedullary Internal Fixation Device into Right Upper Femur, Open Approach (ICD-10-PCS; principal; 2023-08-06 10:40)
DX: S72.144A Nondisplaced intertrochanteric fracture of right femur, initial encounter for closed fracture (principal); E87.1 Hypo-osmolality and hyponatremia; J43.9 Emphysema, unspecified; I10 Essential (primary) hypertension; F41.9 Anxiety disorder, unspecified; F32.A Depression, unspecified; K21.9 Gastro-esophageal reflux disease without esophagitis; W10.8XXA Fall (on) (from) other stairs and steps, initial encounter; Y92.017 Garden or yard in single-family (private) house as the place of occurrence of the external cause; Z79.82 Long term (current) use of aspirin; Z87.891 Personal history of nicotine dependence
CPT/HCPCS: 36415; 71045; 72192; 73700; 76000; 80053; 85025; 87081; 93005; 94640; 94760; 96374